=== PATIENT | female | born 1990 | race Caucasian/White ===

== ENCOUNTER 2024-08-26 16:06 | Emergency (ER) | payer MEDICAID, SELFPAY ==
[2024-08-26 16:13] VITALS: BP 111/67; PULSE 89; RESP 14; TEMP 37; O2SAT 100; BMI 26.6
--- NOTE | 2024-08-26 16:26 | EKG12_ITS ---
Test Reason : GENERAL Blood Pressure : */* mmHG Vent. Rate : 84 BPM Atrial Rate : 84 BPM P-R Int : 146 ms QRS Dur : 98 ms QT Int : 372 ms P-R-T Axes : 71 25 49 degrees QTcB Int : 439 ms Normal sinus rhythm Incomplete right bundle branch block Borderline ECG Confirmed by OMA SALDANA MD ([id number]), rewrite editor LANA PABLO ([id number]) on 08/28/2024 6:45:16 AM Referred By: Confirmed By: OMA SALDANA MD
--- NOTE | 2024-08-26 16:27 | EDS_ITS ---
HPI History of Present Illness Chief Complaint: Chest Pain Informant: patient Narrative Narrative: History of asthma, previous lower extremity VTE in her 20s presents chest pressure 8 AM this morning. Pain to both shoulders. Nausea vomiting x 10 with no hematemesis. No diarrhea or loose stools. No bloody stools. She states he has GI issues has a GI follow-up upcoming. Denies tobacco denies family history MIs at young age. No hypertension hyperlipidemia or diabetes. No recent travel or surgeries. No cough symptoms. However reports exertional dyspnea over the last 2 days. No history of stress test or heart cath. Status post full dose aspirin and nitroglycerin by EMS reported nitroglycerin did not help. EMS EKG reviewed sinus rate of [address] or T wave changes. CVD Risk Factors: Negative for Hypertension, Diabetes, Hypercholesterolemia, Family History 1' </=55 or Smoking PE Risk Factors: Positive for Prior DVT or PE; Negative for Recent Travel/Surgery, Recent Immobilization or Cancer [facility] Medical History Cyst of pituitary gland Syncope, vasovagal Iron deficiency Alopecia Tachycardia IBS (irritable bowel syndrome) Home Medications ?Medication ?Instructions ?Recorded ?Last Taken ?Type pantoprazole 40 mg tablet,delayed 40 mg PO DAILY #30 t abs 08/26/24 Unknown Rx release Allergy/AdvReac Type Severity Reaction Status Date / Time ciprofloxacin (From Cipro) Allergy Hives Verified 08/26/24 16:13 diphenhydramine (From Allergy Hives Verified 08/26/24 16:13 Benadryl) hydrocortisone Allergy Swelling Verified 08/26/24 16:13 Sulfa (Sulfonamide Allergy HIVES, Verified 08/26/24 16:13 Antibiotics) SWELLING tree nut (tree nuts) Allergy Hives Verified 08/26/24 16:13 Social History Smoking Status: Never smoker ROS ROS ED Constitutional Constitutional ED: Denies chills, fever(s) or sweats ENT ENT ED: Denies sore throat Cardiovascular Cardiovascular: Reports chest pain; Denies leg edema, palpitations or racing heartbeat Respiratory/Chest Respiratory/Chest: Reports dyspnea on exertion; Denies cough or dyspnea Gastrointestinal Gastrointestinal: Reports nausea and vomiting; Denies abdominal pain or diarrhea Genitourinary Genitourinary ED: Denies dysuria, hematuria or urinary frequency Musculoskeletal Musculoskeletal: Denies back pain, extremity pain or neck pain Integumentary Denies rash or wounds Neurologic Neurologic: Denies headache(s), paresthesias or weakness EXAM Physical Exam Const Vital Signs: 08/26/24 16:13 08/26/24 16:29 08/26/24 18:08 Temperature 98.6 F Temperature Source Oral Pulse Rate 89 82 Respiratory Rate 14 16 Blood Pressure 111/67 105/75 Blood Pressure Mean 81 85 Pulse Ox 100 98 Oxygen Delivery Method Room Air Room Air Room Air 08/26/24 19:07 Temperature 98.3 F Temperature Source Pulse Rate 80 Respiratory Rate 12 Blood Pressure 110/78 Blood Pressure Mean 88 Pulse Ox 99 Oxygen Delivery Method Positive well nourished and well developed General Appearance ED: well developed and NAD HEENT Reports moist mucous membranes normocephalic and atraumatic Eyes General Eye ED: Yes normal appearance of both eyes Neck full ROM Chest Wall Chest: Negative for tenderness Resp normal respiratory effort and normal air movement Effort and Inspection: symmetric chest movement; Negative for respiratory distress Cardio regular rate, regular rhythm and no murmurs Peripheral Pulses: pulses 2+ throughout GI normal to inspection, nondistended, normoactive bowel sounds and non-tender Palpation: Negative for guarding or rebound tenderness present Extremity normal to inspection General Extremety ED: Negative for edema or tenderness General Extremity: Negative for edema Neuro oriented x3 and no sensory deficits noted Sensorium / Orientation: awake and alert Skin no rashes or lesions noted and no wounds MDM MDM MDM Narrative Medical decision making narrative: Interventions / MDM: Differential diagnosis: Atypical chest pain. ACS however EKG cardiac enzymes negative. Diagnosis considered but do not suspect: PE however D-dimer negative. My EKG interpretation: Sinus rate of 84, no ST changes. QTc 439. Imaging independently reviewed and interpreted by myself: 2 view chest x-ray: No acute process. External documents reviewed: N/A Test considered but not ordered:N/A ED course: Chest pressure since 8 AM nausea and vomiting. GI issues. EMS EKG sinus tachycardia. She normal tensive, f her heart rates in the 80s on the monitor. History of DVT. No cardiac risk factors. Will check EKG cardiac labs, will obtain D-dimer for low risk Wells criteria. She is given fluids Zofran and Pepcid for her GI symptoms. Will reevaluate. 1730: Initial troponin negative D-dimer negative hemoglobin 12. Creatinine 0.72. hCG negative. Two-view chest x-ray ordered for further evaluation. 1800: Two-view chest x-ray negative nausea grossly still has her discomfort in her chest. Will order GI cocktail. Reported 3 years ago upper or lower endoscopies she was never put on PPI. Will reevaluate. Delta troponin pending. 190: Patient reported nursing she had to leave as her ride is coming. Her troponin is in the lab and pending. Discussed with the patient she had to go with a ride. Do not suspect that this will be elevated. She states no improvement with GI cocktail. I discussed we will place her on a PPI positive results I will call her back. She understands and agrees with plan. 2310: Review of delta troponin negative. Re-evaluation: stable Disposition discussed with patient/family/significant other: Patient Case discussed with consulting clinician: N/A This note was generated with Tailored dictation software. It may contain incorrect words, spelling, and punctuation that were not noted in checking the note before signing. Lab Data Attestation: I reviewed the patient's lab results. Labs: Laboratory Results - last 24 hr 08/26/24 08/26/24 08/26/24 16:15 16:47 18:45 WBC 6.3 RBC 4.24 Hgb 12.0 Hct 36.2 L MCV 85.4 MCH 28.3 MCHC 33.1 RDW Std Deviation 40.7 RDW Coeff of Anibal 13.2 Plt Count 236 MPV 10.0 Immature Gran % (Auto) 0.200 Neut % (Auto) 60.0 Lymph % (Auto) 30.0 Smyth % (Auto) 7.7 Eos % (Auto) 1.6 Baso % (Auto) 0.5 Absolute Neuts (auto) 3.8 Absolute Lymphs (auto) 1.88 Nucleated RBC % 0 PT 14.3 INR 1.1 APTT 27.7 D-Dimer Quant (PE/DVT) < 0.27 L Sodium 140 Potassium 4.0 Chloride 105 Carbon Dioxide 22.6 Anion Gap 12 BUN 15 Creatinine 0.72 Estim Creat Clear Calc 90.00 Est GFR (MDRD) Non-Af 113 BUN/Creatinine Ratio 20.7 H Glucose 117 H Calcium 8.9 Troponin T High Sens < 6 Troponin T Hi Sens 2 Hr < 6 Serum , Qual NEGATIVE Radiography Diagnostic Testing: Clinical Impression(s) from Imaging Studies Chest X-Ray 08/26/24 17:40 IMPRESSION: No focal consolidations. Reading Location: [facility] Discharge Plan Triage Chief Complaint: Chest Pain ED Provider: Avtar Cardona Dx/Rx/DC Orders Clinical Impression: Chest pain, Dyspnea, Sinus tachycardia Instructions: ED Chest Pain, Uncertain Cause Prescriptions: New pantoprazole 40 mg tablet,delayed release (DR/EC) 40 mg PO DAILY Qty: 30 0RF Primary Care Provider: Care Physician,No Primary Referrals: Care Physician,No Primary [Primary Care Provider] - Activity Restrictions/Additional Instructions: Chest x-ray negative. D-dimer negative. Your cardiac workup negative thus far. Your second troponin in the lab pending however you needed to leave. I will contact you if positive results. Take pantoprazole as prescribed. Follow-up with your doctor and your GI as scheduled. Print Language: Sinhala Disposition Disposition: Against Medical Advice Discharge Date/Time: 08/26/24 19:12
[2024-08-26] MEDS: 0.9% Normal Saline (1000mL) 1,000 ML 999 ML IV (16:35)
[2024-08-26] MEDS: Ondansetron 4 MG/2 ML Vial IV (16:35)
[2024-08-26 16:42] LABS: Absolute Lymphocyte Count 1.88 X10^3/uL (0.83-4.51); Absolute Neutrophil Count 3.8 X10^3/uL (2.0-7.7); Basophil# 0.03 X10^3/uL; Basophil% 0.5 % (0-1); Eosinophils% 1.6 % (0-5); Hematocrit 36.2 % (37-47); Lymphocyte # 1.88 X10^3/ul (0.83-4.51); Mean Corp Hgb Conc 33.1 g/dL (32-36); Mean Corpuscular Hgb 28.3 pg (27.0-32.0); Mean Corpuscular Volume 85.4 fL (81-99); Monocyte# 0.48 X10^3/uL; Monocyte% 7.7 % (0-10); NRBC Flagged by Analyzer 0 % (0-5); Neutrophil # 3.76 X10^3/uL (2.7-7.7); Platelet Count 236 K/mm3 (150-450); RBC Distribution Width CV 13.2 % (11.6-14.6); RBC Distribution Width SD 40.7 fl (35.1-43.9); Red Blood Count 4.24 M/mm3 (4.2-5.4); White Blood Count 6.3 K/mm3 (4.4-11.0)
[2024-08-26] MEDS: Famotidine 200 MG/20 ML MDV 20 MG in 0.9% Normal Saline (Pres. free 8 ML 300 MG IV (16:55)
[2024-08-26 17:07] LABS: D-Dimer Quantitative (DVT/PE) < 0.27 FEU/ug/m (0.27-0.49)
[2024-08-26 17:09] LABS: International Normalized Ratio 1.1; Prothrombin Time (Protime)PT. 14.3 SECONDS (11.7-14.9)
[2024-08-26 17:10] LABS: Partial Thromboplast Time 27.7 Seconds (24.1-36.2)
[2024-08-26 17:11] LABS: Anion Gap 12 (5-15); BUN 15 mg/dL (4-19); BUN/Creat Ratio 20.7 RATIO (10-20); Calcium,Total 8.9 mg/dL (7.6-11.0); Carbon Dioxide 22.6 mmol/L (21.0-32.0); Chloride 105 mmol/L (98-108); Creatinine, Serum 0.72 mg/dL (0.70-1.20); EST Glomerular Filtration Rate 113 (>60); Glucose 117 mg/dL (70-99); Sodium Level 140 mmol/L (133-145); Troponin T High Sensitivity < 6 ng/L (<=14)
--- OUTSIDE RECORDS SUMMARY | 2024-08-26 17:12 | XMS RPT_ITS | CCD ---
Author Organization [facility] CliniSyoh Care Team Providers Care Licensed Pesticide Applicator Name Role Phone [facility], Generic Unavai lable Mercedez Cotto Unavailable Mercedez Cotto. Unavailable Mercedez Cotto Unavailable Mercedez Cotto Unavailable Unavailable Mercedez Cotto Primary Care Provider [phone] Mercedez Cotto. Primary Care Provider [phone] MERCEDEZ COTTO. Primary Care Unavailable EBEN COLBY Attending Unavai lable Robi Cotto CNPin T. Primary Care Provider Mercedez Cotto CNP T. Primary Care Provider ZARRABI, BASIA Referring Unavailable PHYSICIAN, NO PCP Primary Care Unavailable MERCEDEZ COTTO Primary Care Unavailable DIPTI COTA Attending Unavailable Zarrabi DO, Basia Primary Care Provider [phone] Sadiq Pepper Unavailable Zarrabi DO, Basia Primary Care Provider [phone] No, Physician Primary Care Provider Unavailabl e NO, PHYSICIAN Primary Care Unavailable MIKE MUSTAFA Attending Unavailab le MIKE MUSTAFA Admitting Unavailab le NO, PHYSICIAN Primary Care Unavailable MIKE MUSTAFA Attending Unavailab le ROBI COTTOIN T Primary Care Unavailable LAURY CERDA Attending Unavailable SELF, SELF Referring Unavailable MERCEDEZ COTTO Primary Care Unavailable SELF, SELF Referring Unavailable FAISAL YOUNG Attending Unavailable SELF, SELF Referring Unavailable REANNA ESPINOZA I Attending Unavailable OLGAREANNA MENCHACA I Referring Unavailable ZARRABI, BASIA Primary Care Unavailable WASHINGTON, TOSHA S Attending Unavailable WASHINGTON, TOSHA S Referring Unavailable WASHINGTON, TOSHA S Attending Unavailable WASHINGTON, TOSHA S Referring Unavailable ZARRABI, BASIA Primary Care Unavailable SURESH DOVE Attending Unavailable BAHDHARMESH AKINS Attending Unavailable ORTEGA, DAVIS T Primary Care Unavailable SLICK MCCLELLAND Attending Unavailable COTTO, MERCEDEZ T Primary Care Unavailable ALDIABCARLEE Attending Unavailable SELF, SELF Referring Unavailable ZARRABI, BASIA Attending Unavailable ZARRABI, BASIA Primary Care Unavailable ZARRABI, BASIA Attending Unavailable ZARRABI, BASIA Primary Care Unavailable ZARRABI, BASIA Attending Unavailable PHYSICIAN, NO PCP Primary Care Unavailable ZARRABI, BASIA Attending Unavailable ZARRABI, BASIA Primary Care Unavailable ZARRABI, BASIA Attending Unavailable ZARRABI, BASIA Primary Care Unavailable NO, PHYSICIAN Primary Care Unavailable RONALD BURNHAM Attending Unavailab le [facility], GENERIC Consulting YINKA Milligan Admitting Unavailable H AND V, OPG Consulting Unavailable KYLE SHANE Attending Unavailabl e NO, PHYSICIAN Primary Care Unavailable NO, PHYSICIAN Primary Care Unavailable NO, PHYSICIAN Primary Care Unavailable DENNIS WHITTEN Attending Unavailable NO, PHYSICIAN Primary Care Unavailable NO, PHYSICIAN Primary Care Unavailable KATARZYNA PAUL Attending Dharmesh saldaña Unavailable Primary Care Provider Unavailabl e GIOVANNY ORTEGA Attending Unavailable NO, PHYSICIAN Primary Care Unavailable NO, PHYSICIAN Primary Care Unavailable MARNIE BRANCH Attending Unavailabl e RADHA DORAN Attending Unavail able SYSTEM, PROVIDER NOT IN Primary Care Unavaila ble NO, PHYSICIAN Primary Care Unavailable DAMION PACKER Attending Unavailable MIKE MUSTAFA Attending Unavailab MIKE Ibrahim Referring Unavailab le NO, PHYSICIAN Primary Care Unavailable NO, PHYSICIAN Primary Care Unavailable Unavailable Primary Care Provider Unavailabl e Unavailable Primary Care Provider Unavailabl e Required, No Pcp Unavailable Unavailable Leila Richard Unavailable Unavailable Primary Care Provider Unavailabl e Sorin Shetty Unavailable [phone] Kyle Cabrera Unavailable Tim Romero Unavailable Unavailable Sabha, Marwa Unavailable Unavailable Watkins, Pavanuba Unavailable Unavailable Unavailable Primary Care Provider Unavailmarlyn Stuart MD, [facility] Primary Care Provider [phone] Shara Nolen PharmD Unavailable Unavailab brent Stuart MD, [facility] Primary Care Provider Mustapha Padilla Unavailable GatoamandaReynaldo Unavailable Unavailable Esequiel BARRIGA, Kaylie Alexandre Unavailable Unavailable Suzie Muniz Unavailable June, Dr. Renetta Daigle Attending Unavailab le [place], Dr. Leila Nugent Attending Lillian vailable BloxdorfKyle Attending Unavailable Singal, Dr. Palumbo Attending Unavailable Romanello, Dr. Sorin Vance Attending Un available O'Day, Dr. Marianne Bello Attending Unavail able PADILLA, DO MUSTAPHA GARDNER Attending Unavailabl e Singal, Dr. Palumbo Attending Unavailable Singal, Dr. Palumbo Attending Unavailable Watkins, Dr. Renetta Daigle Attending Unavailab le Glagola, Dr. Dylan Heredia Attending Unavaila ble BloxdorfKyle Attending Unavailable Singal, Dr. Palumbo Attending Unavailable Singal, Dr. Palumbo Attending Unavailable Watkins, Dr. Renetta Daigle Attending Unavailab le [place], Dr. Leila Nugent Attending Lillian vailable Watkins, Dr. Renetta Daigle Attending Unavailab le O'Day, Dr. Marianne Bello Attending Unavail able Romanello, Dr. Sorin Vance Attending Un available BloxKyle cardoso Attending Unavailable BloxKyle cardoso Attending Unavailable Romanello, Dr. Sorin Vance Attending Un available GLASENAPP, REYNALDO C Referring Unavailable STUART, MUDITA Primary Care Unavailable Yoel Virgen RN Unavailable Unavailabl e Unavailable Primary Care Provider UnavailMARCIE Antunez Admitting Unavail able MARCIE CONTRERAS Attending Unavail able MARCIE CONTRERAS Consulting Unavail able Generic Provider , No Assigned Pcp Primary Car e Provider Unavailable Bel MUJICA.GARAGE LABORER, Elina Unavailable Amina WALKER, Rinjal Pedro Unavailable Generic Provider MD, No Assigned Pcp Primary Car e Provider Unavailable Nathan BARRIGA, Marium Unavailable Unavailable Genny WALKER, Madi Primary Care Provider Cassandra Baer Unavailable Unavailable Genny W[facility], [facility] Provider PROVIDER, UNKNOWN Admitting Unavailable JOSE, AKBAR Attending Unavailable PROVIDER, UNKNOWN Admitting Unavailable PROVIDER, UNKNOWN Attending Unavailable JOSEAKBAR Attending Unavailable PROVIDER, UNKNOWN Admitting Unavailable PROVIDER, UNKNOWN Admitting Unavailable PROVIDER, UNKNOWN Attending Unavailable PROVIDER, UNKNOWN Admitting Unavailable PROVIDER, UNKNOWN Attending Unavailable MAGDALENE GLASER Attending Unavailable PROVIDER, UNKNOWN Admitting Unavailable MAGDALENE GLASER Attending Unavailable PROVIDER, UNKNOWN Admitting Unavailable PROVIDER, UNKNOWN Admitting Unavailable ISI HANKS Attending Unavailable PROVIDER, UNKNOWN Admitting Unavailable AKBAR GARCIA Attending Unavailable GENERIC PROVIDER, NO ASSIGNED PCP Primary Care Unavailable GENERIC PROVIDER, NO ASSIGNED PCP Primary Care Unavailable GENERIC PROVIDER, NO ASSIGNED PCP Primary Care Unavailable TELMA MOTLEY Attending Unavailable MARILEE BROWN Attending Unavailable GENERIC PROVIDER, NO ASSIGNED PCP Primary Care Unavailable MARILEE BROWN Attending Unavailable GENERIC PROVIDER, NO ASSIGNED PCP Primary Care Unavailable GENERIC PROVIDER, NO ASSIGNED PCP Primary Care Unavailable GENERIC PROVIDER, NO ASSIGNED PCP Primary Care Unavailable LEILA RICHARD Attending Unavailabl e GENERIC PROVIDER, NO ASSIGNED PCP Primary Care Unavailable MUSTAPHA PADILLA Attending Unavailable GENERIC PROVIDER, NO ASSIGNED PCP Primary Care Unavailable TIM ROMERO Attending Unavailable GENERIC PROVIDER, NO ASSIGNED PCP Primary Care Unavailable RENETTA WATKINS Referring Unavailable GENERIC PROVIDER, NO ASSIGNED PCP Primary Care Unavailable MUSTAPHA PADILLA Attending Unavailable GENERIC PROVIDER, NO ASSIGNED PCP Primary Care Unavailable Barry FINANCE LEAD, Lucille Yajaira Primary Care Provider [phone] BARRY, TENNEH YAJAIRA Primary Care Unavailable BARRY, LUCILLE YAJAIRA Attending Unavailable BARRY, LUCILLE LADDI Attending Unavailable BARRY, MIKENEH YAJAIRA Primary Care Unavailable No Family, Physician Primary Care Unavailable No Family, Physician Primary Care Unavailable EMERY THOMAS Referring Unavailab le No Family, Physician Primary Care Unavailable EMERY THOMAS Referring Unavailab le EMERY THOMAS Referring Unavailab le No Family, Physician Primary Care Unavailable No Family, Physician Primary Care Unavailable MATILDA DACOSTA Referring Unavailable No Family, Physician Primary Care Unavailable LYDIA LONG Referring Unavailable No Family, Physician Primary Care Unavailable (S/P/Bld) [Vol rate/Area] mL/min/{1.73_m2} Normal [facility] Comment on above: Performed By: #### 2 4323-8, 76127-6t6, 15278-7 ####[facility], [address], [place]. Microscopic method Nom (U)on 07-26-2020 Bacteria LM.HPF (Urine sed) [#/Area] RARE Abnormal NONE/HPF [facility] Comment on above: Performed By: #### 5 8077-9, 48444-1 ####[facility], [address], [place]. Epithelial cells.squamous LM.HPF (Urine sed) [#/Area] MANY Abnormal FEW/LPF [facility] Comment on above: Performed By: #### 5 8077-9, 27632-7 ####[facility], [address], [place]. Mucus Ql (Urine sed) RARE Abnormal NONE/LPF [facility] Comment on above: Performed By: #### 5 8077-9, 77179-2 ####[facility], [address], [place]. RBC LM.HPF (Urine sed) [#/Area] 4 /[HPF] Normal 0-5 [facility] Comment on above: Performed By: #### 5 8077-9, 24125-0 ####[facility], [address], [place]. WBC LM.HPF (Urine sed) [#/Area] 4 /[HPF] Normal 0-5 [facility] Comment on above: Performed By: #### 5 8077-9, 69832-9 ####[facility], [address], [place]. Urinalysis complete W Reflex Culture panel (U)on 07-26-2020 Appearance (U) HAZY Abnormal CLEAR [facility] Comment on above: Performed By: #### 5 8077-9, 34275-5 ####[facility], [address], [place]. Bilirubin (U) [Mass/Vol] Negative Normal NEGATIVE-NEGAT [facility] Comment on above: Performed By: #### 5 8077-9, 87869-0 ####[facility], [address] Color (U) YELLOW Normal YELLOW [facility] Comment on above: Performed By: #### 5 8077-9, 37235-9 ####[facility], [address]. Glucose Test strip (U) [Mass/Vol] NORMAL Normal NORMAL [facility] Comment on above: Performed By: #### 5 8077-9, 20312-5 ####[facility], [address]. Hemoglobin Ql (U) 10/UL Abnormal NEGATIVE-N EGAT [facility] Comment on above: Performed By: #### 5 8077-9, 33942-2 ####[facility], [address], [place]. Ketones (U) [Mass/Vol] Negative Normal NEGATIVE-NEGAT [facility]ENZ[facility] Comment on above: Performed By: #### 5 8077-9, 26047-6 ####[facility], [address], [place]. Leukocyte esterase Test strip Ql (U) 25/UL Abnormal NEGATIVE-NEGAT [facility] Comment on above: Performed By: #### 5 8077-9, 83309-4 ####[facility], [address], [place]. Nitrite Test strip (U) [Mass/Vol] Negative Normal NEGATIVE-NEGAT [facility]ENZ[facility] Comment on above: Performed By: #### 5 8077-9, 60038-4 ####[facility], [address] [place] [address]. pH (U) 6.0 [pH] Normal 5.0-9.0 [facility] Comment on above: Performed By: #### 5 8077-9, 69645-1 ####[facility], [address] [place] [address]. Protein (U) [Mass/Vol] 30 mg/dL Abnormal NEGATIVE-NEGAT [facility] Comment on above: Performed By: #### 5 8077-9, 74392-1 ####[facility], [address] [place] [address]. Specific gravity (U) [Rel density] 1.025 Normal 1.005-1.035 [facility] Comment on above: Performed By: #### 5 8077-9, 95045-4 ####[facility], [address] [place] [address]. Urobilinogen (U) [Mass/Vol] NORMAL Normal NORMAL [facility] Comment on above: Performed By: #### 5 8077-9, 52822-8 ####[facility], [address] [place] [address]. XR Abdomen 1 Viewon 07-27-19 21 XR Abdomen Single view Normal [facility] Basic metabolic 2000 panelOr dered By: Ant Light on 07-17-2020 Anion gap [Moles/Vol] 15 mmol/L 10 - 20 mmol/L [facility] Calcium [Mass/Vol] 9.8 mg/dL 8.4 - 10. 2 mg/dL [facility] Chloride [Moles/Vol] 106 mmol/L 98 - 10 8 mmol/L [facility] Creatinine [Mass/Vol] 0.56 mg/dL 0.40 - 1.10 [facility] GFR/1.73 sq M.predicted CKD-EPI (S/P/Bld) [Vol rate/Area] 126 >=60 mL/min/1.73 m2 [facility] Glucose [Mass/Vol] 102 mg/dL High 65 - 99 mg/dL [facility] HCO3 [Moles/Vol] 24 mmol/L 21 - 32 mmol/L [facility] Interpretation and review of laboratory results Abnormal [facility] Potassium [Moles/Vol] 3.6 mmol/L 3.5 - 5.1 mmol/L [facility] Sodium [Moles/Vol] 141 mmol/L 135 - 145 mmol/L [facility] Urea nitrogen [Mass/Vol] 11 mg/dL 8 - 25 mg/dL [facility] Urea nitrogen/Creatinine [Mass ratio] 19.6 mg/mg [facility] The eGFR should be u sed for monitoring renal function only and not for medication dosing. [facility] Beta HCG ( test) Ql Ordered By: Ant Light on 07-17-2020 Negative: The result is less than or equal to 5 mIU/mL of HCG. [facility] CBC WITH AUTO DIFFERENTIALOr dered By: Ant Light on 07-17-2020 Basophils (Bld) [#/Vol] 0.03 10*3/uL [facility] Basophils/100 WBC (Bld) 0.5 % [facility] Eosinophils (Bld) [#/Vol] 0.09 10*3/uL [facility] Eosinophils/100 WBC (Bld) 1.6 % [facility] Erythrocyte distribution width (RBC) [Entitic vol] 13.1 % 11.6 - 14.8 % [facility] Hematocrit (Bld) [Volume fraction] 37.4 % 36.0 - 46.0 % [facility] Hemoglobin (Bld) [Mass/Vol] 12.0 g/dL 12.0 - 16.0 g/dL [facility] Immature granulocytes (Bld) [#/Vol] 0.02 10*3/uL [facility] Immature granulocytes/100 WBC (Bld) 0.40 % [facility] Comment on above: The IG parameter is the percentage of metamyelocytes, myelocytes and promyelocytes. An immature granulocyte count (IG) of 1% or more suggests the possibility of infection, an IG count of 3% is very likely related to an infection. Lymphocytes (Bld) [#/Vol] 1.84 10*3/uL [facility] Lymphocytes/100 WBC (Bld) 33.2 % [facility] MCH (RBC) [Entitic mass] 27.5 pg 26.0 - 34.0 pg [facility] MCHC (RBC) [Mass/Vol] 32.1 g/dL 31.0 - 37.0 g/dL [facility] MCV (RBC) [Entitic vol] 85.8 fL 80.0 - 100.0 fL [facility] Monocytes (Bld) [#/Vol] 0.40 10*3/uL [facility] Monocytes/100 WBC (Bld) 7.2 % [facility] Neutrophils (Bld) [#/Vol] 3.16 10*3/uL [facility] Neutrophils/100 WBC (Bld) 57.1 % [facility] Nucleated RBC (Bld) [#/Vol] 0.00 10*3/uL [facility] Nucleated RBC/100 WBC (Bld) [Ratio] 0.0 % [facility] Platelet mean volume (Bld) [Entitic vol] 9.5 fL 9.4 - 12.4 fL [facility] Platelets (Bld) [#/Vol] 246 10*3/uL [facility] RBC (Bld) [#/Vol] 4.36 10*6/uL [facility] ealth WBC (Bld) [#/Vol] 5.54 10*3/uL [facility] HCG (QUALITATIVE)Ordered By: Ant Light on 07-17-2020 Beta HCG ( test) Ql Negative Negative [facility] Hepatic function 2000 panelO rdered By: Ant Light on 07-17-2020 Albumin [Mass/Vol] 4.6 g/dL 3.2 - 5.2 g/dL [facility] ALP [Catalytic activity/Vol] 47 U/L 40 - 140 U/L [facility] ALT [Catalytic activity/Vol] 16 U/L 0 - 40 U/L [facility] AST [Catalytic activity/Vol] 14 U/L 0 - 45 U/L [facility] Bilirubin [Mass/Vol] mg/dL 0.0 - 1 .3 mg/dL [facility] Bilirubin.conjugated [Mass/Vol] mg/dL 0.0 - 0.4 mg/dL [facility] Protein [Mass/Vol] 7.6 g/dL 6.0 - 8.0 g/dL [facility] LipaseOrdered By: Ant alba on 07-17-2020 Lipase [Catalytic activity/Vol] 35 U/L 15 - 65 U/L [facility] No Panel InformationOrdered By: Coni Anguiano on 07-17-2020 Extra Tube Hold for add-ons. [facility] Comment on above: Auto resulted. No Panel InformationOrdered By: Ant Light on 07-17-2020 Interpretation and review of laboratory results Normal [facility] TSH DL <= 0.005 mIU/L QnOrde red By: Ant Light on 07-17-2020 TSH Qn 1.48 m[IU]/L [facility] URINALYSISOrdered By: Ant jaimes on 07-17-2020 Bacteria Auto Ql (U) None Seen None Seen /hpf [facility] Clarity Refractometry automated (U) Clear Clear [facility] Color (U) Yellow Colorless, Yellow [facility] Glucose Auto test strip (U) [Mass/Vol] Negative Negative mg/dL [facility] Ketones (U) [Mass/Vol] Negative Negative mg/dL [facility] Leukocyte esterase Auto test strip Ql (U) Negative Negative [facility] pH (U) 6.5 [pH] [facility] Specific gravity (U) [Rel density] 1.027 High [facility] UrinalysisOrdered By: Ant jaimes on 07-17-2020 Bilirubin Ql (U) Negative Negative [facility] Epithelial cells.squamous Auto (Urine sed) [#/Area] 3 [facility] Hemoglobin Auto test strip Ql (U) Small Abnormal Negative [facility] Interpretation and review of laboratory results Abnormal [facility] Mucus Auto (Urine sed) [#/Area] Rare None Seen, Rare /lpf [facility] Nitrite Auto test strip Ql (U) Negative Negative [facility] Protein (U) [Mass/Vol] Negative Negative mg/dL [facility] RBC Auto (Urine sed) [#/Area] 12 High [facility] Urobilinogen (U) [Mass/Vol] mg/dL <2.0 mg/dL [facility] WBC Auto (Urine sed) [#/Area] 1 [facility] Microscopic examinat ion is performed on all urinalysis samples and only positive findings are reported. The test for blood on the chemical analytic portion of urinalysis may also be positive due to hemoglobinuria and myoglobinuria and if red blood cells are present they are quantified by microscopic examination. [facility] NM Gastric EmptyingOrdered B y: Giuliana Payan on 07-08-2020 Minimally decreased emptying at 240 minutes with the remainder of the study unremarkable. No convincing evidence of gastroparesis. Workstation ID: [id number] [facility] EXAMINATION: NUCLEAR MEDICINE GASTRIC EMPTYING STUDY 07/08/2020 TECHNIQUE: Following ingestion of a standard solid meal labeled with 1.0 mCi Tc 99m sulfur colloid, planar images of the chest and abdomen were obtained at 0, 1, 2 and 4 hours in both anterior and posterior projections. Regions of interest were drawn around the stomach and geometric means were calculated. All medications capable of altering motility were held. COMPARISON: None. HISTORY: ORDERING SYSTEM PROVIDED HISTORY: intractable nausea and vomiting; TECHNOLOGIST PROVIDED HISTORY: Illness/Other Acuity: Unknown Reason for Exam: intractable nausea and vomiting Type of Encounter: Unknown Additional signs and symptoms: n FINDINGS: The gastric emptying was calculated as follows: At 60 min, there is 37.1% emptying of the stomach. (Normal range is 10-70%) At 120 min, there is 62.5% emptying of the stomach. (Normal is >40%) At 240 min, there is 88.3% emptying of the stomach. (Normal is >90%) No significant esophageal retention, hiatal hernia or reflux was observed. [facility], Rad In Fu ji Speechq - 07/08/2020 12:47 PM EDT EXAMINATION: NUCLEAR MEDICINE GASTRIC EMPTYING STUDY 07/08/2020 TECHNIQUE: Following ingestion of a standard solid meal labeled with 1.0 mCi Tc 99m sulfur colloid, planar images of the chest and abdomen were obtained at 0, 1, 2 and 4 hours in both anterior and posterior projections. Regions of interest were drawn around the stomach and geometric means were calculated. All medications capable of altering motility were held. COMPARISON: None. HISTORY: ORDERING SYSTEM PROVIDED HISTORY: intractable nausea and vomiting; TECHNOLOGIST PROVIDED HISTORY: Illness/Other Acuity: Unknown Reason for Exam: intractable nausea and vomiting Type of Encounter: Unknown Additional signs and symptoms: n FINDINGS: The gastric emptying was calculated as follows: At 60 min, there is 37.1% emptying of the stomach. (Normal range is 10-70%) At 120 min, there is 62.5% emptying of the stomach. (Normal is >40%) At 240 min, there is 88.3% emptying of the stomach. (Normal is >90%) No significant esophageal retention, hiatal hernia or reflux was observed. IMPRESSION: Minimally decreased emptying at 240 minutes with the remainder of the study unremarkable. No convincing evidence of gastroparesis. Workstation ID: [id number] [facility] CHLAMYDIA/GONORRHOEAE AMPLIF IED RNAOrdered By: Yvonne Barton on 07-04-2020 C. trachomatis rRNA MARY+probe Ql (Cvx) Negative Negative [facility] Interpretation and review of laboratory results Normal [facility] N. gonorrhoeae rRNA MARY+probe Ql (Cvx) Negative Negative [facility] COVID-19, MolecularOrdered B y: Nathan Amin on 07-04-2020 SARS-CoV-2 (COVID-19) RNA MARY+probe Ql (Resp) Not detected Not Detected [facility] Comment on above: This test was perfor med under the FDA's Emergency Use Authorization (EUA). Testing was performed using the Simplexa SARS-CoV-2 RT-PCR assay ([employer]) on the [employer] platform. This test has not been approved for use in asymptomatic patients and its performance in this patient population has not been evaluated. Negative results do not rule out the presence of SARS-CoV-2/COVID-19. Fact sheets for this EUA can be found at the following links: For Healthcare Providers: https://www.fda.gov/media/060895/download For Patients: https://www.fda.gov/media/001901/download CTA Pulm Art and CT Abd Pelv is with IV contrastOrdered By: Nathan Amin on 07-04-2020 1. No evidence for acute pulmonary thromboembolic disease. No thoracic aortic aneurysm or dissection.. 2. No acute pulmonary parenchymal process. 1.6 cm involuting follicle within the right ovary, likely physiologic. Small amount of pelvic free fluid, likely physiologic 3. Normal appendix. No evidence for small or large bowel obstruction. No acute inflammatory process within the abdomen or pelvis. [facility]/lab Workstation ID: [id number] [facility] EXAMINATION: CTA PUL M ART AND CT ABD PELVIS WITH IV CONTRAST HISTORY: ORDERING SYSTEM PROVIDED HISTORY: hx of syncope, previous lap garret, eval for PE; hx of syncope, previous lap garret, eval for PE, TECHNOLOGIST PROVIDED HISTORY: Illness/Other Reason for exam: hx of syncope, previous lap garret, eval for PE; hx of syncope, previous lap garret, eval for PE Encounter Type: Initial Additional signs and symptoms: hx of syncope, previous lap garret, eval for PE; hx of syncope, previous lap garret, eval for PE ORDERING SYSTEM PROVIDED DIAGNOSIS CODES: R11.2 Intractable nausea and vomiting Z87.19 History of chronic gastritis N76.0 Bacterial vaginosis B96.89 Bacterial vaginosis COMPARISON: Noncontrast CT examination of the abdomen and pelvis 04/11/[address] examination of the chest, abdomen, and pelvis 02/08/2020. TECHNIQUE: CT angiography of the pulmonary arteries following the administration of intravenous contrast. Coronal and sagittal MIP images were performed. Imaging was extended to include the abdomen and pelvis. Coronal and sagittal reformations were performed. Dose reduction techniques were achieved by using automated exposure control and/or adjustment of mA and/or kV according to patient size and/or use of iterative reconstruction technique. CONTRAST: IOPAMIDOL 76 % INTRAVENOUS SOLUTION - 75 mL, FINDINGS: CTA PULMONARY ARTERIES: There is suboptimal opacification of the pulmonary arteries upon initial image acquisition. Repeat image acquisition and contrast injection was performed. No filling defect identified within the main, lobar, or evaluable portions of the segmental pulmonary arteries. Normal caliber of the main pulmonary artery. Thoracic aorta without evidence for aneurysm or dissection. Heart is within normal limits in size. No pericardial effusion. No mediastinal, hilar, or axillary lymphadenopathy. No focal consolidative process, pleural effusion or pneumothorax. Central airways are patent. ABDOMEN: Liver is homogeneous in attenuation without evidence for focal lesion. Prior cholecystectomy. No abnormal biliary dilatation. The portal vein is patent. Spleen, adrenal glands and pancreas are unremarkable. No abdominal lymphadenopathy. Symmetric enhancement and excretion of contrast from the renal collecting systems. No hydronephrosis. No definite intrarenal calculus is identified. 7 mm left midpole renal cortical cysts. PELVIS: Ureters and bladder are unremarkable. 16 mm involuting follicle within the right ovary. Uterus and adnexa are otherwise unremarkable for age. Small amount of pelvic free fluid. No pelvic lymphadenopathy. Normal appendix. No evidence for small or large bowel obstruction. No free air. OSSEOUS STRUCTURES: No suspicious osteolytic or osteoblastic lesion. [facility], Rad In Fu ji Speechq - 07/04/2020 3:53 AM EDT EXAMINATION: CTA PULM ART AND CT ABD PELVIS WITH IV CONTRAST HISTORY: ORDERING SYSTEM PROVIDED HISTORY: hx of syncope, previous lap garret, eval for PE; hx of syncope, previous lap garret, eval for PE, TECHNOLOGIST PROVIDED HISTORY: Illness/Other Reason for exam: hx of syncope, previous lap garret, eval for PE; hx of syncope, previous lap garret, eval for PE Encounter Type: Initial Additional signs and symptoms: hx of syncope, previous lap garret, eval for PE; hx of syncope, previous lap garret, eval for PE ORDERING SYSTEM PROVIDED DIAGNOSIS CODES: R11.2 Intractable nausea and vomiting Z87.19 History of chronic gastritis N76.0 Bacterial vaginosis B96.89 Bacterial vaginosis COMPARISON: Noncontrast CT examination of the abdomen and pelvis 04/11/[address] examination of the chest, abdomen, and pelvis 02/08/2020. TECHNIQUE: CT angiography of the pulmonary arteries following the administration of intravenous contrast. Coronal and sagittal MIP images were performed. Imaging was extended to include the abdomen and pelvis. Coronal and sagittal reformations were performed. Dose reduction techniques were achieved by using automated exposure control and/or adjustment of mA and/or kV according to patient size and/or use of iterative reconstruction technique. CONTRAST: IOPAMIDOL 76 % INTRAVENOUS SOLUTION - 75 mL, FINDINGS: CTA PULMONARY ARTERIES: There is suboptimal opacification of the pulmonary arteries upon initial image acquisition. Repeat image acquisition and contrast injection was performed. No filling defect identified within the main, lobar, or evaluable portions of the segmental pulmonary arteries. Normal caliber of the main pulmonary artery. Thoracic aorta without evidence for aneurysm or dissection. Heart is within normal limits in size. No pericardial effusion. No mediastinal, hilar, or axillary lymphadenopathy. No focal consolidative process, pleural effusion or pneumothorax. Central airways are patent. ABDOMEN: Liver is homogeneous in attenuation without evidence for focal lesion. Prior cholecystectomy. No abnormal biliary dilatation. The portal vein is patent. Spleen, adrenal glands and pancreas are unremarkable. No abdominal lymphadenopathy. Symmetric enhancement and excretion of contrast from the renal collecting systems. No hydronephrosis. No definite intrarenal calculus is identified. 7 mm left midpole renal cortical cysts. PELVIS: Ureters and bladder are unremarkable. 16 mm involuting follicle within the right ovary. Uterus and adnexa are otherwise unremarkable for age. Small amount of pelvic free fluid. No pelvic lymphadenopathy. Normal appendix. No evidence for small or large bowel obstruction. No free air. OSSEOUS STRUCTURES: No suspicious osteolytic or osteoblastic lesion. IMPRESSION: 1. No evidence for acute pulmonary thromboembolic disease. No thoracic aortic aneurysm or dissection.. 2. No acute pulmonary parenchymal process. 1.6 cm involuting follicle within the right ovary, likely physiologic. Small amount of pelvic free fluid, likely physiologic 3. Normal appendix. No evidence for small or large bowel obstruction. No acute inflammatory process within the abdomen or pelvis. [facility] Workstation ID: [id number] [facility] DRUGS OF ABUSE SCREEN, URINE Ordered By: Giuliana Payan on 07-04-2020 Amphetamines Ql (U) Not detected None Detected [facility] Comment on above: Urine Amphetamine Cu toff: < 1000 ng/mL = None Detected Barbiturates Screen Ql (U) Not detected None Detected [facility] Comment on above: Urine Barbiturates C utoff: < 200 ng/mL = None Detected Benzodiazepines Ql (U) Not detected None Detected [facility] Comment on above: Urine Benzodiazepine Cutoff: < 200 ng/mL = None Detected Buprenorphine Ql (U) Not detected None Detected [facility] Comment on above: Urine Buprenorphine Cutoff: < 5 ng/mL = None Detected Cannabinoids Screen Ql (U) Not detected None Detected [facility] Comment on above: Urine Cannabinoids C utoff: < 50 ng/mL = None Detected Cocaine Ql (U) Not detected None Detected [facility] Comment on above: Urine Cocaine Cutoff : < 300 ng/mL = None Detected fentaNYL+Norfentanyl Screen Ql (U) Not detected None Detected [facility] Comment on above: Urine Fentanyl Cutof f: < 1 ng/mL = None Detected Interpretation and review of laboratory results Normal [facility] Methadone Screen Ql (U) Not detected None Detected [facility] Comment on above: Urine Methadone Cuto ff: < 300 ng/mL = None Detected Opiates Screen Ql (U) Not detected None Detected [facility] Comment on above: Urine Opiates Cutoff : < 300 ng/mL = None Detected oxyCODONE Ql (U) Not detected None Detected [facility] Comment on above: Urine Oxycodone Cuto ff: < 100 ng/mL = None Detected Screen results shoul d be used for treatment purposes only. [facility] ECG 12-LEADOrdered By: Jourdan Amin on 07-04-2020 Atrial Rate 125 BPM [facility] P [place] 74 degrees [facility] P-R Interval 128 ms [facility] Q-T Interval 288 ms [facility] QRS Duration 76 ms [facility] QTC Calculation (Bezet) 415 ms [facility] R [place] 62 degrees [facility] [place] 51 degrees [facility] Ventricular Rate 125 BPM [facility] th Sinus tachycardia Ri ght atrial enlargement Anterior infarct , age undetermined Abnormal ECG Confirmed by DELBERT KRISHNAN MD ([id number]) on 07/04/2020 8:55:47 AM [facility] No Panel InformationOrdered By: Yvonne Barton on 07-04-2020 FINDINGS/ Unremarkab le radiographic appearance of the thoracic and lumbar spine. No acute findings and no significant degenerative changes. Workstation ID: [id number] [facility] EXAMINATION: XR LUMB AR SPINE 2-3 VIEWS (STANDARD); XR THORACIC SPINE 3 VIEWS (STANDARD) HISTORY: Injury, back pain COMPARISON: CT abdomen pelvis 04/11/2020, 02/08/2020 CT chest [facility] Interface, Rad In Fu ji Speechq - 07/04/2020 12:04 AM EDT EXAMINATION: XR LUMBAR SPINE 2-3 VIEWS (STANDARD); XR THORACIC SPINE 3 VIEWS (STANDARD) HISTORY: Injury, back pain COMPARISON: CT abdomen pelvis 04/11/2020, 02/08/2020 CT chest IMPRESSION: FINDINGS/ Unremarkable radiographic appearance of the thoracic and lumbar spine. No acute findings and no significant degenerative changes. Workstation ID: [id number] [facility] SARS-CoV-2 (COVID-19) RNA NA A+probe Ql (Resp)Ordered By: Nathan Amin on 07-04-2020 Interpretation and review of laboratory results Normal [facility] Trichomonas vaginalis Amplif ied RNAOrdered By: Yvonne Barton on 07-04-2020 Interpretation and review of laboratory results Normal [facility] T. vaginalis rRNA MARY+probe Ql (Cvx) Negative Negative [facility] URINALYSISOrdered By: Luke Herring on 07-04-2020 Bacteria Auto Ql (U) None Seen None Seen /hpf [facility] Clarity Refractometry automated (U) Clear Clear [facility] Color (U) Yellow Colorless, Yellow [facility] Glucose Auto test strip (U) [Mass/Vol] Negative Negative mg/dL [facility] Ketones (U) [Mass/Vol] Negative Negative mg/dL [facility] Leukocyte esterase Auto test strip Ql (U) Negative Negative [facility] pH (U) 6.0 [pH] [facility] Specific gravity (U) [Rel density] 1.031 High [facility] UrinalysisOrdered By: Luke Herring on 07-04-2020 Bilirubin Ql (U) Negative Negative [facility] th Crystals.amorphous Computer assisted (U) [#/Area] Rare None Seen, Rare /hpf [facility] Epithelial cells.squamous Auto (Urine sed) [#/Area] 1 [facility] Hemoglobin Auto test strip Ql (U) Small Abnormal Negative [facility] Interpretation and review of laboratory results Abnormal [facility] Nitrite Auto test strip Ql (U) Negative Negative [facility] Protein (U) [Mass/Vol] 30 mg/dL Abnormal Negative mg/dL [facility] Comment on above: False positive resul ts may occur in urines with large amounts of hemoglobin, pH greater than 8.0, contrast medium, or disinfectants including ammonium compounds. RBC Auto (Urine sed) [#/Area] 2 [facility] Urobilinogen (U) [Mass/Vol] mg/dL <2.0 mg/dL [facility] WBC Auto (Urine sed) [#/Area] 1 [facility] Microscopic examinat ion is performed on all urinalysis samples and only positive findings are reported. The test for blood on the chemical analytic portion of urinalysis may also be positive due to hemoglobinuria and myoglobinuria and if red blood cells are present they are quantified by microscopic examination. [facility] WET PREPARATIONOrdered By: David Barton on 07-04-2020 Clue cells Wet prep Ql (Unsp spec) Possible Clue Cells Seen Abnormal No Clue Cells Seen [facility] Interpretation and review of laboratory results Abnormal [facility] T. vaginalis Wet prep Ql (Genital specimen) No Trichomonas Seen No Trichomonas Seen [facility] WBC Wet prep Ql (Unsp spec) Few WBC's Seen Abnormal No WBC's Seen [facility] Yeast Wet prep Ql (Genital specimen) No Yeast Seen No Yeast Seen [facility] Yeast.hyphae Wet prep Ql (Unsp spec) No Yeast with Hyphae Seen No Yeast with Hyphae Seen [facility] Basic metabolic 2000 panelOr dered By: Reanna Herring on 07-03-2020 Anion gap [Moles/Vol] 15 mmol/L 10 - 20 mmol/L [facility] Calcium [Mass/Vol] 9.8 mg/dL 8.4 - 10. 2 mg/dL [facility] Chloride [Moles/Vol] 106 mmol/L 98 - 10 8 mmol/L [facility] Creatinine [Mass/Vol] 0.55 mg/dL 0.40 - 1.10 [facility] GFR/1.73 sq M.predicted CKD-EPI (S/P/Bld) [Vol rate/Area] 127 >=60 mL/min/1.73 m2 [facility] Glucose [Mass/Vol] 94 mg/dL 65 - 99 mg/dL [facility] HCO3 [Moles/Vol] 24 mmol/L 21 - 32 mmol/L [facility] Interpretation and review of laboratory results Abnormal [facility] Potassium [Moles/Vol] 3.9 mmol/L 3.5 - 5.1 mmol/L [facility] Sodium [Moles/Vol] 141 mmol/L 135 - 145 mmol/L [facility] Urea nitrogen [Mass/Vol] 16 mg/dL 8 - 25 mg/dL [facility] Urea nitrogen/Creatinine [Mass ratio] 29.1 mg/mg High [facility] The eGFR should be u sed for monitoring renal function only and not for medication dosing. [facility] Beta HCG ( test) Ql Ordered By: Reanna Herring on 07-03-2020 Negative: The result is less than or equal to 5 mIU/mL of HCG. [facility] CBC WITH AUTO DIFFERENTIALOr dered By: Reanna Herring on 07-03-2020 Basophils (Bld) [#/Vol] 0.03 10*3/uL [facility] Basophils/100 WBC (Bld) 0.4 % [facility] Eosinophils (Bld) [#/Vol] 0.08 10*3/uL [facility] Eosinophils/100 WBC (Bld) 1.1 % [facility] Erythrocyte distribution width (RBC) [Entitic vol] 13.2 % 11.6 - 14.8 % [facility] Hematocrit (Bld) [Volume fraction] 39.3 % 36.0 - 46.0 % [facility] Hemoglobin (Bld) [Mass/Vol] 13.0 g/dL 12.0 - 16.0 g/dL [facility] Immature granulocytes (Bld) [#/Vol] 0.02 10*3/uL [facility] Immature granulocytes/100 WBC (Bld) 0.30 % [facility] Comment on above: The IG parameter is the percentage of metamyelocytes, myelocytes and promyelocytes. An immature granulocyte count (IG) of 1% or more suggests the possibility of infection, an IG count of 3% is very likely related to an infection. Lymphocytes (Bld) [#/Vol] 1.79 10*3/uL [facility] Lymphocytes/100 WBC (Bld) 23.7 % [facility] MCH (RBC) [Entitic mass] 28.1 pg 26.0 - 34.0 pg [facility] MCHC (RBC) [Mass/Vol] 33.1 g/dL 31.0 - 37.0 g/dL [facility] MCV (RBC) [Entitic vol] 85.1 fL 80.0 - 100.0 fL [facility] Monocytes (Bld) [#/Vol] 0.61 10*3/uL [facility] Monocytes/100 WBC (Bld) 8.1 % [facility] Neutrophils (Bld) [#/Vol] 5.01 10*3/uL [facility] Neutrophils/100 WBC (Bld) 66.4 % [facility] Nucleated RBC (Bld) [#/Vol] 0.00 10*3/uL [facility] Nucleated RBC/100 WBC (Bld) [Ratio] 0.0 % [facility] Platelet mean volume (Bld) [Entitic vol] 9.5 fL 9.4 - 12.4 fL [facility] Platelets (Bld) [#/Vol] 248 10*3/uL [facility] RBC (Bld) [#/Vol] 4.62 10*6/uL [facility] ealt WBC (Bld) [#/Vol] 7.54 10*3/uL [facility] ealth CT CERVICAL SPINE WITHOUT CO NTRASTOrdered By: Reanna Herring on 07-03-2020 No evidence of cervi justin spine fracture or traumatic malalignment. Workstation ID: [id number] [facility] EXAMINATION: CT CERVICAL SPINE. HISTORY: 29 y/o , F FALL INJRY PAIN . ORDERING SYSTEM PROVIDED HISTORY: FALL INJRY PAIN, TECHNOLOGIST PROVIDED HISTORY: Injury/Trauma Reason for exam: FALL INJRY SYNCOPE, LOC Encounter Type: Initial Mechanism of injury: FALL INJRY SYNCOPE, LOC ORDERING SYSTEM PROVIDED DIAGNOSIS CODES: COMPARISON: 09/30/2019 TECHNIQUE: Axial CT images were acquired from the skull base to the upper thoracic spine. Sagittal and coronal reformations were then acquired. Dose reduction techniques were achieved by using automated exposure control and/or adjustment of mA and/or kV according to patient size and/or use of iterative reconstruction technique. Volumetric 3D reconstructions performed on a separate workstation. FINDINGS: There is no evidence of cervical spine fracture or malalignment. There is peqy-ao-oetczdlg degenerative disease throughout the cervical spine, most notably at the C5-C6 level. No CT evidence of severe spinal canal stenosis. The prevertebral soft tissues are normal. No destructive lesions are seen. The cervical vertebral bodies are well aligned. [facility] Interface, Rad In Fu ji Speechq - 07/03/2020 7:27 PM EDT EXAMINATION: CT CERVICAL SPINE. HISTORY: 29 y/o , F FALL INJRY PAIN . ORDERING SYSTEM PROVIDED HISTORY: FALL INJRY PAIN, TECHNOLOGIST PROVIDED HISTORY: Injury/Trauma Reason for exam: FALL INJRY SYNCOPE, LOC Encounter Type: Initial Mechanism of injury: FALL INJRY SYNCOPE, LOC ORDERING SYSTEM PROVIDED DIAGNOSIS CODES: COMPARISON: 09/30/2019 TECHNIQUE: Axial CT images were acquired from the skull base to the upper thoracic spine. Sagittal and coronal reformations were then acquired. Dose reduction techniques were achieved by using automated exposure control and/or adjustment of mA and/or kV according to patient size and/or use of iterative reconstruction technique. Volumetric 3D reconstructions performed on a separate workstation. FINDINGS: There is no evidence of cervical spine fracture or malalignment. There is klhx-rb-alifvdgn degenerative disease throughout the cervical spine, most notably at the C5-C6 level. No CT evidence of severe spinal canal stenosis. The prevertebral soft tissues are normal. No destructive lesions are seen. The cervical vertebral bodies are well aligned. IMPRESSION: No evidence of cervical spine fracture or traumatic malalignment. Workstation ID: [id number] [facility] CT HEAD OR BRAIN WITHOUT CON TRASTOrdered By: Reanna Herring on 07-03-2020 No acute intracrania l abnormality. Workstation ID: [id number] [facility] EXAMINATION: CT HEAD OR BRAIN WITHOUT CONTRAST HISTORY: ORDERING SYSTEM PROVIDED HISTORY: FALL INJRY SYNCOPE, LOC, TECHNOLOGIST PROVIDED HISTORY: Injury/Trauma Reason for exam: FALL INJRY SYNCOPE, LOC Encounter Type: Initial Mechanism of injury: FALL INJRY SYNCOPE, LOC ORDERING SYSTEM PROVIDED DIAGNOSIS CODES: COMPARISON: 09/30/2019 TECHNIQUE: CT examination of the head without IV contrast. Dose reduction techniques were achieved by using automated exposure control and/or adjustment of mA and/or kV according to patient size and/or use of iterative reconstruction technique. FINDINGS: Ventricles and sulci are normal in size and configuration. No extra-axial collection. No intracranial hemorrhage. No mass effect or edema. No CT evidence of large territorial infarction. Visualized paranasal sinuses are well aerated. Mastoids are clear. Calvarium is unremarkable. [facility] Interface, Rad In Fu ji Speechq - 07/03/2020 7:29 PM EDT EXAMINATION: CT HEAD OR BRAIN WITHOUT CONTRAST HISTORY: ORDERING SYSTEM PROVIDED HISTORY: FALL INJRY SYNCOPE, LOC, TECHNOLOGIST PROVIDED HISTORY: Injury/Trauma Reason for exam: FALL INJRY SYNCOPE, LOC Encounter Type: Initial Mechanism of injury: FALL INJRY SYNCOPE, LOC ORDERING SYSTEM PROVIDED DIAGNOSIS CODES: COMPARISON: 09/30/2019 TECHNIQUE: CT examination of the head without IV contrast. Dose reduction techniques were achieved by using automated exposure control and/or adjustment of mA and/or kV according to patient size and/or use of iterative reconstruction technique. FINDINGS: Ventricles and sulci are normal in size and configuration. No extra-axial collection. No intracranial hemorrhage. No mass effect or edema. No CT evidence of large territorial infarction. Visualized paranasal sinuses are well aerated. Mastoids are clear. Calvarium is unremarkable. IMPRESSION: No acute intracranial abnormality. Workstation ID: [id number] [facility] HCG (QUALITATIVE)Ordered By: Reanna Herring on 07-03-2020 Beta HCG ( test) Ql Negative Negative [facility] Hepatic function 2000 panelO rdered By: Reanna Herring on 07-03-2020 Albumin [Mass/Vol] 4.6 g/dL 3.2 - 5.2 g/dL [facility] ALP [Catalytic activity/Vol] 42 U/L 40 - 140 U/L [facility] ALT [Catalytic activity/Vol] 17 U/L 0 - 40 U/L [facility] AST [Catalytic activity/Vol] 16 U/L 0 - 45 U/L [facility] Bilirubin [Mass/Vol] mg/dL 0.0 - 1 .3 mg/dL [facility] Bilirubin.conjugated [Mass/Vol] mg/dL 0.0 - 0.4 mg/dL [facility] Protein [Mass/Vol] 7.8 g/dL 6.0 - 8.0 g/dL [facility] LipaseOrdered By: Yvonne Thornton on 07-03-2020 Lipase [Catalytic activity/Vol] 37 U/L 15 - 65 U/L [facility] Lipase [Catalytic activity/V ol]Ordered By: Yvonne Barton on 07-03-2020 Interpretation and review of laboratory results Normal [facility] No Panel InformationOrdered By: Triage Emergency on 07-03-2020 Extra Tube Hold for add-ons. [facility] Comment on above: Auto resulted. No Panel InformationOrdered By: Reanna Herring on 07-03-2020 Interpretation and review of laboratory results Normal [facility] Basic metabolic 2000 panelon 06-28-2020 Anion gap [Moles/Vol] 7.0 mmol/L Normal 6.0-18.0 [facility] Comment on above: Performed By: #### 4 [id number], [id number], [id number], 43679-8 ####[facility], [address], [place]. Calcium [Mass/Vol] 9.7 mg/dL Normal 8.9-10.3 [facility] Comment on above: Performed By: #### 4 [id number], [id number], [id number], [id number] ####[facility], [address] [place], [place]. Chloride [Moles/Vol] 108 mmol/L High 98-107 [facility] Comment on above: Performed By: #### 4 [id number], [id number], [id number], [id number] ####[facility], [address] [place], [place]. CO2 [Moles/Vol] 25 mmol/L Normal 22-32 [facility] [facility] Comment on above: Performed By: #### 4 8642-3x1, 26675-1, 27327-0, 58880-7 ####[facility], [address] [place], [place]. Creatinine [Mass/Vol] 0.61 mg/dL Low 0.66-1.30 [facility] Comment on above: Performed By: #### 4 8642-3x1, 73589-6, 74706-7, 25202-9 ####[facility], [address] [place], [place]. Glucose [Mass/Vol] 103 mg/dL High 70-99 [facility] Comment on above: Result Comment: U pdated ADA Reference RangeA normal fasting glucose concentration is less than 100 mg/dL.An impaired fasting glucose concentration is 100-125 mg/dL. Aprovisional diagnosis of diabetes mellitus can be made when afasting glucose concentration is greater than 125 mg/dL. Performed By: #### 4 8642-3x1, 46909-9, 13759-4, 08341-2 ####[facility], [address], [place]. Potassium [Moles/Vol] 4.0 mmol/L Normal 3.6-5.1 [facility] Comment on above: Performed By: #### 4 8642-3x1, 41332-0, 91364-2, 77859-3 ####[facility], [address], [place]. Sodium [Moles/Vol] 140 mmol/L Normal 136-145 [facility] Comment on above: Performed By: #### 4 8642-3x1, 90356-1, 45015-6, 71637-1 ####[facility], [address], [place]. Urea nitrogen (BldV) [Mass/Vol] 17 mg/dL Normal 8-20 [facility] Comment on above: Performed By: #### 4 8642-3x1, 20747-3, 19436-0, 70566-8 ####[facility], [address], [place]. CBC W Auto Differential pane l (Bld)on 06-28-2020 Basophils (Bld) [#/Vol] 0.00 thou/mcL Normal 0.00-0.20 [facility] Comment on above: Performed By: #### 5 7021-8 ####[facility], [address], [place]. Basophils/100 WBC (Bld) 0.6 % Normal 0.0-2.0 [facility] Comment on above: Performed By: #### 5 7021-8 ####[facility], [address] [place], [place]. Eosinophils (Bld) [#/Vol] 0.10 thou/mcL Normal 0.00-0.70 [facility] Comment on above: Performed By: #### 70-8 ####[facility], [address], [place]. Eosinophils/100 WBC (Bld) 1.0 % Normal 0.0-7.0 [facility] Comment on above: Performed By: #### 70-8 ####[facility], [facility] [address], [place]. Erythrocyte distribution width (RBC) [Entitic vol] 13.0 % Normal 11.0-14.8 [facility] Comment on above: Performed By: #### 70-8 ####[facility], [facility] [address] [place], [place]. Hematocrit (Bld) [Volume fraction] 37.9 % Normal 35.0-45.0 [facility] Comment on above: Performed By: #### 7021-8 ####[facility], [facility] [address], [place]. Hemoglobin (Bld) [Mass/Vol] 12.7 g/dL Normal 12.0-16.0 [facility] Comment on above: Performed By: #### 7021-8 ####[facility], [address], [place]. Lymphocytes (Bld) [#/Vol] 1.60 thou/mcL Normal 1.00-4.80 [facility] Comment on above: Performed By: #### 7021-8 ####[facility], [address], [place]. Lymphocytes/100 WBC (Bld) 23.2 % Normal 22.0-44.0 [facility] Comment on above: Performed By: #### 5 7021-8 ####[facility], [address] [place], [place]. MCH (RBC) [Entitic mass] 28.4 Picograms Normal 27.0-34.0 [facility] Comment on above: Performed By: #### 70-8 ####[facility], [address] [place], [place]. MCHC (RBC) [Mass/Vol] 33.6 g/dL Normal 32.0-36.0 [facility] Comment on above: Performed By: #### 70-8 ####[facility], [address] [place], [place]. MCV (RBC) [Entitic vol] 84.6 fL Normal 80.0-97.0 [facility] Comment on above: Performed By: #### 70-8 ####[facility], [address] [place], [place]. Monocytes (Bld) [#/Vol] 0.40 thou/mcL Normal 0.00-0.90 [facility] Comment on above: Performed By: #### 7021-8 ####[facility], [address] [place], [place]. Monocytes/100 WBC (Bld) 5.7 % Normal 0.0-12.0 [facility] Comment on above: Performed By: #### 7021-8 ####[facility], [address] [place], [place]. Neutrophils (Bld) [#/Vol] 4.90 thou/mcL Normal 1.80-7.70 [facility] Comment on above: Performed By: #### 7021-8 ####[facility], [address] [place], [place]. Neutrophils/100 WBC (Bld) 69.5 % Normal 40.0-70.0 [facility] Comment on above: Performed By: #### 5 7021-8 ####[facility], [address] [facility] [place]. Platelet mean volume (Bld) [Entitic vol] 7.4 fL Normal 6.2-12.1 [facility] Comment on above: Performed By: #### 5 7021-8 ####[facility], [address], [place]. Platelets (Bld) [#/Vol] 233 thou/mcL Normal 142-424 [facility] Comment on above: Performed By: #### 5 7021-8 ####[facility], [address], [place]. RBC (Bld) [#/Vol] 4.48 million/mcL Normal 3.80-5.10 M [facility] Comment on above: Performed By: #### 5 7021-8 ####[facility], [address], [place]. WBC (Bld) [#/Vol] 7.1 thou/mcL Normal 4.6-10.2 [facility] Comment on above: Performed By: #### 5 7021-8 ####[facility], [address], [place] CT Abd and Pelvis w/o Contra ston 06-28-2020 CT Abd and Pelvis w/o Contrast Normal [facility] Culture Urine + Susceptibili tyon 06-28-2020 Bacteria identified Cx Nom (U) Normal [facility] Comment on above: Performed By: #### 6 30-4 ####[facility] [address], [place] ED Pat Eduon 06-28-[address] [facility] GFR/1.73 sq M.predicted (S/P /Bld) [Vol rate/Area]on 06-28-2020 GFR/1.73 sq M.predicted among blacks MDRD (S/P/Bld) [Vol rate/Area] mL/min/{1.73_m2} Normal [facility] Comment on above: Result Comment: The MDRD equation has not been validated for those over 70 years, women, patients with serious co-morbid conditions, or with extremes of bodysize, muscle mass of nutritional status. Performed By: #### 4 8642-3x1, 16680-4, 28485-8, 50097-8 ####[facility], [address], [place]. GFRbbon 06-28-2020 GFR/1.73 sq M.predicted among non-blacks MDRD (S/P/Bld) [Vol rate/Area] mL/min/{1.73_m2} Normal [facility] Comment on above: Performed By: #### 4 8642-3x1, 40263-1, 27917-0, 87238-0 ####[facility], [address] [place], [place]. Hepatic function 2000 panelo n 06-28-2020 Albumin [Mass/Vol] 4.5 g/dL Normal 3.5-4.8 [facility] Comment on above: Performed By: #### 4 8642-3x1, 64357-5, 47093-6, 02150-4 ####[facility], [address] [place], [place]. ALP [Catalytic activity/Vol] 31 Units/L Low 32-91 [facility] Comment on above: Performed By: #### 4 8642-3x1, 33869-6, 34831-2, 90300-8 ####[facility], [address], [place]. ALT [Catalytic activity/Vol] 16 Units/L Normal 14-63 [facility] Comment on above: Result Comment: Garcia bland note: Change in reference range for ALT occurred on 01/17/20 at [facility], [facility], and [facility]. Performed By: #### 4 8642-3x1, 57437-3, 07097-0, 05202-6 ####[facility], [address] [address] [place], [place]. AST [Catalytic activity/Vol] 14 Units/L Low 15-41 [facility] Comment on above: Performed By: #### 4 8642-3x1, 48297-4, 58209-5, 24887-1 ####[facility], [address] [place]. Bilirubin [Mass/Vol] 0.2 mg/dL Low 0.3-1.2 [facility] Comment on above: Performed By: #### 4 8642-3x1, 81035-7, 06354-3, 67189-2 ####[facility], [address], [place]. Bilirubin.direct [Mass/Vol] 0.1 mg/dL Normal 0.1-0.5 [facility] Comment on above: Performed By: #### 4 8642-3x1, 30521-9, 57743-0, 23970-1 ####[facility], [address], [place]. Bilirubin.indirect [Mass/Vol] 0.1 mg/dL Normal 0.0-1.0 [facility] Comment on above: Performed By: #### 4 8642-3x1, 29659-4, 78372-8, 96092-4 ####[facility], [address] [place]. Protein [Mass/Vol] 7.6 g/dL Normal 6.1-7.9 [facility] Comment on above: Performed By: #### 4 8642-3x1, 15746-4, 42611-4, 00958-2 ####[facility], [address] [facility] [place]. Microscopic method Nom (U)on 06-28-2020 Bacteria LM.HPF (Urine sed) [#/Area] RARE Abnormal NONE/HPF [facility] Comment on above: Performed By: #### 7 3015-9, 04262-7 ####[facility], [address] [facility] [place]. Epithelial cells.squamous LM.HPF (Urine sed) [#/Area] MANY Abnormal FEW/LPF [facility] Comment on above: Performed By: #### 7 2374-9, 94619-3 ####[facility], [address] Mucus Ql (Urine sed) RARE Abnormal NONE/LPF Moun [facility] Comment on above: Performed By: #### 7 2374-9, 98441-8 ####[facility], [address] [facility] [place] RBC LM.HPF (Urine sed) [#/Area] 2 /[HPF] Normal 0-5 [facility] Comment on above: Performed By: #### 7 2374-, 20007-2 ####[facility], [address] [place], [place] [address], [place]. WBC LM.HPF (Urine sed) [#/Area] 4 /[HPF] Normal 0-5 [facility] Comment on above: Performed By: #### 7 2375-, 29763-5 ####[facility], [address] [place], [place] [address], [place]. Urinalysis complete W Reflex Culture panel (U)on 06-28-2020 Appearance (U) HAZY Abnormal CLEAR [facility] Comment on above: Performed By: #### 7 2375-, 62741-4 ####[facility], [address] [facility] [place] Bilirubin (U) [Mass/Vol] Negative Normal NEGATIVE-NEGAT MCKENZIE [facility] Comment on above: Performed By: #### 7 2375-, 84777-9 ####[facility], [address] [place] Color (U) YELLOW Normal YELLOW [facility] Comment on above: Performed By: #### 7 2375-9, 31371-8 ####[facility], [address] [place]. Glucose Test strip (U) [Mass/Vol] NORMAL Normal NORMAL [facility] Comment on above: Performed By: #### 7 2375-9, 81242-7 ####[facility], [address] [place]. Hemoglobin Ql (U) Negative Normal NEGATIVE-N EGAT MCKENZIE [facility] Comment on above: Performed By: #### 7 2375-, 27762-4 ####[facility], [address] [place] [address]. Ketones (U) [Mass/Vol] Negative Normal NEGATIVE-NEGAT MCKENZIE [facility] Comment on above: Performed By: #### 7 2375-, 45382-8 ####[facility], [address] [place], [place] [address], [place]. Leukocyte esterase Test strip Ql (U) 25/UL Abnormal NEGATIVE-NEGAT MCKENZIE [facility] Comment on above: Performed By: #### 7 2375-, 80361-2 ####[facility], [address] [place]. Nitrite Test strip (U) [Mass/Vol] Negative Normal NEGATIVE-NEGAT MCKENZIE [facility] Comment on above: Performed By: #### 7 2375-9, 36638-2 ####[facility], [address] [facility] [place] pH (U) 7.0 [pH] Normal 5.0-9.0 [facility] Comment on above: Performed By: #### 7 2375-, 52551-1 ####[facility], [address] [facility] [place] Protein (U) [Mass/Vol] Negative Normal NEGATIVE-NEGAT MCKENZIE [facility] Comment on above: Performed By: #### 7 2375-9, 38261-3 ####[facility], [address] [address] [facility] [place], [place]. Specific gravity (U) [Rel density] 1.021 Normal 1.005-1.035 [facility] Comment on above: Performed By: #### 7 2375-9, 82010-2 ####[facility], [address]. Urobilinogen (U) [Mass/Vol] NORMAL Normal NORMAL [facility] Comment on above: Performed By: #### 7 2375-9, 23091-2 ####[facility], [address]. Basic metabolic 2000 panelon 06-06-2020 Anion gap [Moles/Vol] 8.0 mmol/L Normal 6.0-18.0 [facility] Comment on above: Performed By: #### 4 8642-3x1, 16450-7, 99255-2, 38392-4 ####[facility], [address]. Calcium [Mass/Vol] 9.7 mg/dL Normal 8.9-10.3 [facility] Comment on above: Performed By: #### 4 8642-3x1, 11020-2, 44843-6, 08060-1 ####[facility], [address] [place], [place]. Chloride [Moles/Vol] 103 mmol/L Normal 98-107 Moun [facility] Comment on above: Performed By: #### 4 8642-3x1, 42473-6, 12749-4, 98960-8 ####[facility], [address], [place]. CO2 [Moles/Vol] 25 mmol/L Normal 22-32 [facility] Comment on above: Performed By: #### 4 8642-3x1, 67959-3, 75934-2, 27647-1 ####[facility], [address], [place]. Creatinine [Mass/Vol] 0.75 mg/dL Normal 0.66-1.30 [facility] Comment on above: Performed By: #### 4 8642-3x1, 14411-0, 52053-9, 85407-9 ####[facility], [address], [place]. Glucose [Mass/Vol] 120 mg/dL High 70-99 [facility] Comment on above: Result Comment: U pdated ADA Reference RangeA normal fasting glucose concentration is less than 100 mg/dL.An impaired fasting glucose concentration is 100-125 mg/dL. Aprovisional diagnosis of diabetes mellitus can be made when afasting glucose concentration is greater than 125 mg/dL. Performed By: #### 4 8642-3x1, 99319-8, 09044-8, 56133-5 ####[facility], [address], [place]. Potassium [Moles/Vol] 3.8 mmol/L Normal 3.6-5.1 [facility] Comment on above: Performed By: #### 4 8642-3x1, 82127-1, 81346-7, 08385-4 ####[facility], [address] [place] [address]. Sodium [Moles/Vol] 136 mmol/L Normal 136-145 [facility] Comment on above: Performed By: #### 4 8642-3x1, 50053-4, 50795-6, 39961-9 ####[facility], [address], [place]. Urea nitrogen (BldV) [Mass/Vol] 16 mg/dL Normal 8-20 [facility] Comment on above: Performed By: #### 4 8642-3x1, 92977-4, 97099-2, 08061-5 ####[facility], [address] [place], [place]. CBC W Auto Differential pane l (Bld)on 06-06-2020 Basophils (Bld) [#/Vol] 0.00 thou/mcL Normal 0.00-0.20 [facility] Comment on above: Performed By: #### 5 7021-8 ####[facility], [address] [place] [address]. Basophils/100 WBC (Bld) 0.5 % Normal 0.0-2.0 [facility] Comment on above: Performed By: #### 70-8 ####[facility], [address] [place] [address]. Eosinophils (Bld) [#/Vol] 0.10 thou/mcL Normal 0.00-0.70 [facility] Comment on above: Performed By: #### 7021-8 ####[facility], [address] [place] [address]. Eosinophils/100 WBC (Bld) 1.5 % Normal 0.0-7.0 [facility] Comment on above: Performed By: #### 7021-8 ####[facility], [address] [place] [address]. Erythrocyte distribution width (RBC) [Entitic vol] 13.5 % Normal 11.0-14.8 [facility] Comment on above: Performed By: #### 7021-8 ####[facility], [address] [place] [address]. Hematocrit (Bld) [Volume fraction] 38.2 % Normal 35.0-45.0 [facility] Comment on above: Performed By: #### 7021-8 ####[facility], [address] [place] [address]. Hemoglobin (Bld) [Mass/Vol] 13.2 g/dL Normal 12.0-16.0 [facility] Comment on above: Performed By: #### 7021-8 ####[facility], [address]. Lymphocytes (Bld) [#/Vol] 1.30 thou/mcL Normal 1.00-4.80 [facility] Comment on above: Performed By: #### 70-8 ####[facility], [address] Lymphocytes/100 WBC (Bld) 19.6 % Low 22.0-44.0 [facility] Comment on above: Performed By: #### 7020-8 ####[facility], [address] MCH (RBC) [Entitic mass] 29.1 Picograms Normal 27.0-34.0 [facility] Comment on above: Performed By: #### 7020-8 ####[facility], [facility] MCHC (RBC) [Mass/Vol] 34.6 g/dL Normal 32.0-36.0 [facility] Comment on above: Performed By: #### 7020-8 ####[facility], [facility] MCV (RBC) [Entitic vol] 84.0 fL Normal 80.0-97.0 [facility] Comment on above: Performed By: #### 70-8 ####[facility], [address]. Monocytes (Bld) [#/Vol] 0.50 thou/mcL Normal 0.00-0.90 [facility] Comment on above: Performed By: #### 70-8 ####[facility], [address]. Monocytes/100 WBC (Bld) 7.9 % Normal 0.0-12.0 [facility] Comment on above: Performed By: #### 70-8 ####[facility], [address] [place], [place]. Neutrophils (Bld) [#/Vol] 4.60 thou/mcL Normal 1.80-7.70 [facility] Comment on above: Performed By: #### 5 7021-8 ####[facility], [address] [place], [place]. Neutrophils/100 WBC (Bld) 70.5 % High 40.0-70.0 [facility] Comment on above: Performed By: #### 70-8 ####[facility], [address] [place], [place]. Platelet mean volume (Bld) [Entitic vol] 7.7 fL Normal 6.2-12.1 [facility] Comment on above: Performed By: #### 7021-8 ####[facility], [address] [place], [place]. Platelets (Bld) [#/Vol] 303 thou/mcL Normal 142-424 [facility] Comment on above: Performed By: #### 7021-8 ####[facility], [address] [place], [place]. RBC (Bld) [#/Vol] 4.54 million/mcL Normal 3.80-5.10 M [facility] Comment on above: Performed By: #### 5 7021-8 ####[facility], [address] [place], [place]. WBC (Bld) [#/Vol] 6.5 thou/mcL Normal 4.6-10.2 [facility] Comment on above: Performed By: #### 5 7021-8 ####[facility], [address] [place], [place]. ED Pat Eduon 06-06-[address] [facility] GFR/1.73 sq M.predicted (S/P /Bld) [Vol rate/Area]on 06-06-2020 GFR/1.73 sq M.predicted among blacks MDRD (S/P/Bld) [Vol rate/Area] mL/min/{1.73_m2} Normal [facility] Comment on above: Result Comment: The MDRD equation has not been validated for those over 70 years, women, patients with serious co-morbid conditions, or with extremes of bodysize, muscle mass of nutritional status. Performed By: #### 4 8642-3x1, 22026-7, 49607-4, 94095-4 ####[facility], [address], [place]. GFRbbon 06-06-2020 GFR/1.73 sq M.predicted among non-blacks MDRD (S/P/Bld) [Vol rate/Area] mL/min/{1.73_m2} Normal [facility] Comment on above: Performed By: #### 4 8642-3x1, 21666-8, 64190-1, 89271-3 ####[facility], [address], [place]. Pre-Arrival Formon Pre-Arrival Form Normal [facility] Troponin Ion 06-06-2020 Troponin I.cardiac [Mass/Vol] ng/mL Normal <0.06 [facility] Comment on above: Performed By: #### 4 8642-3x1, 02973-6, 21092-6, 09609-8 ####[facility], [address] [place] Basic metabolic 2000 panelon 05-31-2020 Anion gap [Moles/Vol] 7.0 mmol/L Normal 6.0-18.0 [facility] Comment on above: Performed By: #### 2 4321-2, 25860-1, 3040-3, 53111-3q5, 78589- 9 ####[facility], [address] Calcium [Mass/Vol] 8.8 mg/dL Low 8.9-10.3 [facility] Comment on above: Performed By: #### 2 4321-2, 26893-0, 3040-3, 45051-2e3, 64305- 9 ####[facility], [address] [address] [facility] [facility] Chloride [Moles/Vol] 108 mmol/L High 98-107 Moun [facility] Comment on above: Performed By: #### 2 4321-2, 35485-9, 3040-3, 71745-7q3, 04418- 9 ####[facility], [address] [place] CO2 [Moles/Vol] 24 mmol/L Normal 22-32 [facility] Comment on above: Performed By: #### 2 4321-2, 08319-0, 3040-3, 62341-5t4, 41986- 9 ####[facility], [address] [place]. Creatinine [Mass/Vol] 0.74 mg/dL Normal 0.66-1.30 [facility] Comment on above: Performed By: #### 2 4321-2, 33777-0, 3040-3, 36146-8t6, 30351- 9 ####[facility], [address] [place] Glucose [Mass/Vol] 102 mg/dL High 70-99 [facility] Comment on above: Result Comment: U pdated ADA Reference RangeA normal fasting glucose concentration is less than 100 mg/dL.An impaired fasting glucose concentration is 100-125 mg/dL. Aprovisional diagnosis of diabetes mellitus can be made when afasting glucose concentration is greater than 125 mg/dL. Performed By: #### 2 4321-2, 74051-1, 3040-3, 08222-8z1, 95747-2 ####[facility], [address] [place]. Potassium [Moles/Vol] 3.7 mmol/L Normal 3.6-5.1 [facility] Comment on above: Performed By: #### 2 4321-2, 10180-0, 3040-3, 95323-8q1, 36166- 9 ####[facility], [address] [place], [place]. Sodium [Moles/Vol] 139 mmol/L Normal 136-145 [facility] Comment on above: Performed By: #### 2 4321-2, 79299-9, 3040-3, 03820-7s0, 58421- 9 ####[facility], [address] [place], [place]. Urea nitrogen (BldV) [Mass/Vol] 15 mg/dL Normal 8-20 [facility] Comment on above: Performed By: #### 2 4321-2, 54460-8, 3040-3, 41255-2g2, 42915- 9 ####[facility], [address] [place] [address]. Coronavirus (COVID-19/SARS-C oV-2) RAPIDon 05-31-2020 Employed in healthcare No [facility] Comment on above: Performed By: #### 9 4532-9x2 ####[facility] [address] [place] [address] First test Unknown [facility] Comment on above: Performed By: #### 9 4531-9x2 ####[facility] [address] [place] [address] ICU No [facility] Comment on above: Performed By: #### 9 453-9x2 ####[facility] [address] [place] [address] Illness or injury onset date and time UNKNOWN [facility] Comment on above: Performed By: #### 9 453-9x2 ####[facility] [address] [place] [address] Patient was hospitalized because of this condition Yes [facility] Comment on above: Performed By: #### 9 453-9x2 ####[facility] [address] [place] [address] status NotPreg Normal [facility] Comment on above: Performed By: #### 9 4532-9x2 ####[facility] [address] [place] [address] Resides in congregate care setting No Normal [facility] Comment on above: Performed By: #### 9 4532-9x2 ####[address] [address] SARS-CoV-2 (COVID-19) RNA MARY+probe Ql (Resp) Not detected Normal NOTDET [facility] Comment on above: Result Comment: This test was performed via the Nitro NOW COVID-19 assay and has beenauthorized by FDA under an Emergency Use Authorization (EUA). The assay isvalidated for nasopharyngeal ([employer]), nasal, and oropharyngeal (OP) directswabs. The limit of detection of the assay is approximately 125 genomeequivalence/mL; however, detection of SARS-CoV-2 may be affected by thesample collection and transport methods, patient factors (e.g., presence ofsymptoms, and/or stage of infection), and a negative result does not ruleout the possibility of infection. For updated information, refer to theCenter for Disease Control website:www.cdc.gov/coronavirus. Performed By: #### 9 4532-9x2 ####[facility] [address] [place] [address] Symptomatic as defined by CDC No Normal [facility] Comment on above: Performed By: #### 9 4532-9x2 ####[facility] [address] [place] [address] Culture Urine + Susceptibili tyon 05-31-2020 Bacteria identified Cx Nom (U) Normal [facility] Comment on above: Performed By: #### 6 30-4 ####[facility] [address], [place] GFR/1.73 sq M.predicted (S/P /Bld) [Vol rate/Area]on 05-31-2020 GFR/1.73 sq M.predicted among blacks MDRD (S/P/Bld) [Vol rate/Area] mL/min/{1.73_m2} Normal [facility] Comment on above: Result Comment: The MDRD equation has not been validated for those over 70 years, women, patients with serious co-morbid conditions, or with extremes of bodysize, muscle mass of nutritional status. Performed By: #### 2 4321-2, 27760-1, 3040-3, 23410-7l6, 38270-9 ####[facility], [address] [place], [place]. GFRbbon 05-31-2020 GFR/1.73 sq M.predicted among non-blacks MDRD (S/P/Bld) [Vol rate/Area] mL/min/{1.73_m2} Normal [facility] Comment on above: Performed By: #### 2 4321-2, 22513-4, 3040-3, 47428-2k6, 48021- 9 ####[facility], [address], [place]. Hemogram and platelets WO di fferential panel (Bld)on 05-31-2020 Erythrocyte distribution width (RBC) [Entitic vol] 13.3 % Normal 11.0-14.8 [facility] Comment on above: Performed By: #### 2 4317-0 ####[facility], [address] [place], [place]. Hematocrit (Bld) [Volume fraction] 34.9 % Low 35.0-45.0 [facility] Comment on above: Performed By: #### 2 4317-0 ####[facility], [address], [place]. Hemoglobin (Bld) [Mass/Vol] 12.3 g/dL Normal 12.0-16.0 [facility] Comment on above: Performed By: #### 2 4317-0 ####[facility], [address], [place]. MCH (RBC) [Entitic mass] 29.1 Picograms Normal 27.0-34.0 [facility] Comment on above: Performed By: #### 2 4317-0 ####[facility], [address] [place], [place]. MCHC (RBC) [Mass/Vol] 35.3 g/dL Normal 32.0-36.0 [facility] Comment on above: Performed By: #### 2 4316-0 ####[facility], [address] [place], [place]. MCV (RBC) [Entitic vol] 82.5 fL Normal 80.0-97.0 [facility] Comment on above: Performed By: #### 2 4316-0 ####[facility], [address], [place]. Platelet mean volume (Bld) [Entitic vol] 7.3 fL Normal 6.2-12.1 [facility] Comment on above: Performed By: #### 2 4316-0 ####[facility], [address] [place], [place]. Platelets (Bld) [#/Vol] 207 thou/mcL Normal 142-424 [facility] Comment on above: Performed By: #### 2 7-0 ####[facility], [address] [place], [place]. RBC (Bld) [#/Vol] 4.23 million/mcL Normal 3.80-5.10 [facility] Comment on above: Performed By: #### 2 7-0 ####[facility], [address], [place]. WBC (Bld) [#/Vol] 5.3 thou/mcL Normal 4.6-10.2 [facility] Comment on above: Performed By: #### 2 7-0 ####[facility], [address], [place]. Hepatic function 2000 panelo n 05-31-2020 Albumin [Mass/Vol] 4.3 g/dL Normal 3.5-4.8 [facility] Comment on above: Performed By: #### 2 4321-2, 12131-1, 3040-3, 04493-5e7, 90489- 9 ####[facility], [address] [place], [place]. ALP [Catalytic activity/Vol] 32 Units/L Normal 32-91 [facility] Comment on above: Performed By: #### 2 4321-2, 13184-7, 3040-3, 29352-0s0, 44245- 9 ####[facility], [address] [place], [place]. ALT [Catalytic activity/Vol] 10 Units/L Low 14-63 [facility] Comment on above: Result Comment: Garcia bland note: Change in reference range for ALT occurred on 01/17/20 at [facility], [facility], and [facility]. Performed By: #### 2 4321-2, 49914-9, 3040-3, 40185-0s2, 60255-8 ####[facility], [address] [place], [place]. AST [Catalytic activity/Vol] 13 Units/L Low 15-41 [facility] Comment on above: Performed By: #### 2 4321-2, 21084-1, 3040-3, 35641-8e4, 91001- 9 ####[facility], [address] [place], [place]. Bilirubin [Mass/Vol] 0.3 mg/dL Normal 0.3-1.2 Moun [facility] Comment on above: Performed By: #### 2 4321-2, 97717-4, 3040-3, 64277-7n7, 10536- 9 ####[facility], [address] [place], [place]. Bilirubin.direct [Mass/Vol] mg/dL Abnormal 0.1-0.5 [facility] Comment on above: Performed By: #### 2 4321-2, 86324-3, 3040-3, 00231-8y8, 46511- 9 ####[facility], [address], [place]. Bilirubin.indirect [Mass/Vol] 0.3 mg/dL Normal 0.0-1.0 [facility] Comment on above: Performed By: #### 2 4321-2, 43965-8, 3040-3, 27928-7m3, 33926- 9 ####[facility], [address], [place]. Protein [Mass/Vol] 7.0 g/dL Normal 6.1-7.9 [facility] Comment on above: Performed By: #### 2 4321-2, 74494-7, 3040-3, 68174-2v8, 76839- 9 ####[facility], [address], [place]. Lipaseon 05-31-2020 Lipase [Catalytic activity/Vol] 34 Units/L Normal 22-51 [facility] Comment on above: Result Comment: Garcia bland note: Change in reference range for LIP occurred on 01/17/20 at [facility], [facility], and [facility]. Performed By: #### 2 4321-2, 30343-1, 3040-3, 26073-7t4, 25313-1 ####[facility], [address], [place]. Microscopic method Nom (U)on 05-31-2020 Bacteria LM.HPF (Urine sed) [#/Area] OCCASSNL Abnormal NONE/HPF [facility] Comment on above: Performed By: #### 7 2375-9, 71468-1 ####[facility], [address], [place]. Epithelial cells.squamous LM.HPF (Urine sed) [#/Area] MANY Abnormal FEW/LPF [facility] Comment on above: Performed By: #### 7 2375-9, 15519-0 ####[facility], [address], [place]. Mucus Ql (Urine sed) RARE Abnormal NONE/LPF [facility] Comment on above: Performed By: #### 7 2375-9, 71001-7 ####[facility], [address] [facility] [place] RBC LM.HPF (Urine sed) [#/Area] 1 /[HPF] Normal 0-5 [facility] Comment on above: Performed By: #### 7 2375-, 00199-3 ####[facility], [address] [facility] [place] WBC LM.HPF (Urine sed) [#/Area] 2 /[HPF] Normal 0-5 [facility] Comment on above: Performed By: #### 7 2375-, 69652-0 ####[facility], [address], [place]. Patient Summaryon 05-31-[address] [facility] Pre-Arrival Formon Pre-Arrival Form Normal [facility] US Abdomen Ltdon 05-31-2020 US Ab[address]en limited Normal [facility] Urinalysis complete W Reflex Culture panel (U)on 05-31-2020 Appearance (U) HAZY Abnormal CLEAR [facility] Comment on above: Performed By: #### 7 2375-9, 36909-8 ####[facility], [address] [facility] [place] [place]. Bilirubin (U) [Mass/Vol] Negative Normal NEGATIVE-NEGAT [facility] Comment on above: Performed By: #### 7 2375-9, 85725-4 ####[facility], [address] [facility] [place] [place] Color (U) YELLOW Normal YELLOW [facility] Comment on above: Performed By: #### 7 2375-, 14189-4 ####[facility], [address], [place]. Glucose Test strip (U) [Mass/Vol] NORMAL Normal NORMAL [facility] Comment on above: Performed By: #### 7 237-, 80260-8 ####[facility], [address], [place]. Hemoglobin Ql (U) Negative Normal NEGATIVE-N EGAT [facility] [facility] Comment on above: Performed By: #### 7 2374-, 97216-0 ####[facility], [address], [place]. Ketones (U) [Mass/Vol] Negative Normal NEGATIVE-NEGAT MCKENZ[facility] Comment on above: Performed By: #### 7 2374-, 18084-4 ####[facility], [address] [place] [address]. Leukocyte esterase Test strip Ql (U) 25/UL Abnormal NEGATIVE-NEGAT MCKENZIE [facility] Comment on above: Performed By: #### 7 2375-, 76203-1 ####[facility], [address] [facility] [place]. Nitrite Test strip (U) [Mass/Vol] Negative Normal NEGATIVE-NEGAT [facility]ENZ[place] [facility] Comment on above: Performed By: #### 7 2375-, 26557-6 ####[facility], [address], [place]. pH (U) 6.0 [pH] Normal 5.0-9.0 [facility] Comment on above: Performed By: #### 7 2375-, 70952-1 ####[facility], [address] [place] Protein (U) [Mass/Vol] 30 mg/dL Abnormal NEGATIVE-NEGAT MCKENZ[place] [facility] Comment on above: Performed By: #### 7 2375-9, 45373-2 ####[facility], [address] [place]. Specific gravity (U) [Rel density] 1.024 Normal 1.005-1.035 [facility] Comment on above: Performed By: #### 7 2375-9, 79056-2 ####[facility], [address] [place]. Urobilinogen (U) [Mass/Vol] NORMAL Normal [facility] Comment on above: Performed By: #### 7 2375-9, 39455-2 ####[facility], [address] [place] [place] ED Pat Eduon 05-27-2020 ED Pat Edu [facility] Pre-Arrival Formon Pre-Arrival Form [facility] Coronavirus (COVID-19/SARS-C oV-2) RAPIDon 05-21-2020 Employed in healthcare No [facility] Comment on above: Performed By: #### 9 4532-9x2 ####[facility] [address] [place] [address] First test No [facility] Comment on above: Performed By: #### 9 4532-9x2 ####NHMagdal[facility] GU[facility] [address] [place] [address] ICU No [facility] Comment on above: Performed By: #### 9 2-9x2 ####NHMagdaleno [facility] [address] [place] [address] Illness or injury onset date and time UNKNOWN [facility] Comment on above: Performed By: #### 9 4532-9x2 ####MTMagdaleno [facility] [address] [place], [place] [address] Patient was hospitalized because of this condition No [facility] Comment on above: Performed By: #### 9 4532-9x2 ####MTMagdaleno [facility] [address] [place], [place] [address] status NotPreg [facility] Comment on above: Performed By: #### 9 4532-9x2 ####[place] [address] Resides in congregate care setting No Normal [facility] Comment on above: Performed By: #### 9 4532-9x2 #### [address] [address] SARS-CoV-2 (COVID-19) RNA MARY+probe Ql (Resp) Not detected [facility] Comment on above: Result Comment: This test was performed via the [employer] NOW COVID-19 assay and has beenauthorized by FDA under an Emergency Use Authorization (EUA). The assay isvalidated for nasopharyngeal (FINANCE LEAD), nasal, and oropharyngeal (OP) directswabs. The limit of detection of the assay is approximately 125 genomeequivalence/mL; however, detection of SARS-CoV-2 may be affected by thesample collection and transport methods, patient factors (e.g., presence ofsymptoms, and/or stage of infection), and a negative result does not ruleout the possibility of infection. For updated information, refer to theCenter for Disease Control website:www.cdc.gov/coronavirus. Performed By: #### 9 4532-9x2 #### [address] [address] Symptomatic as defined by CDC Yes [facility] Comment on above: Performed By: #### 9 4532-9x2 ####[address] [address] ED Pat Eduon 05-21-2020 ED Pat Edu [facility] Pre-Arrival Formon Pre-Arrival Form Normal [facility] ED Pat Eduon 05-15-2020 ED Pat Edu [facility] Microscopic method Nom (U)on 05-14-2020 Epithelial cells.squamous LM.HPF (Urine sed) [#/Area] MANY Abnormal FEW/LPF [facility] Comment on above: Performed By: #### 7 2375-9, 21224-3 ####[facility], [address], [place]. Mucus Ql (Urine sed) OCCASSNL Abnormal NONE/LPF [facility] Comment on above: Performed By: #### 7 2375-, 49572-3 ####[facility], [address] [place], [place]. RBC LM.HPF (Urine sed) [#/Area] 7 /[HPF] High 0-5 [facility] Comment on above: Performed By: #### 7 2374-11, 76800-3 ####[facility], [address] WBC LM.HPF (Urine sed) [#/Area] 1 /[HPF] Normal 0-5 [facility] Comment on above: Performed By: #### 7 2374-11, 88478-2 ####[facility], [address] [facility] [place] Pre-Arrival Formon Pre-Arrival Form Normal [facility] Urinalysis dipstick W Reflex Microscopic panel (U)on 05-14-2020 Appearance (U) HAZY Abnormal CLEAR [facility] Comment on above: Performed By: #### 7 2375-, 93658-8 ####[facility], [address] [facility] [place], [place]. Bilirubin (U) [Mass/Vol] Negative Normal NEGATIVE-NEGAT MCKENZ[facility] Comment on above: Performed By: #### 7 2375-, 06660-2 ####[facility], [address], [place]. Color (U) YELLOW Normal YELLOW [facility] Comment on above: Performed By: #### 7 2375-, 04629-8 ####[facility], [address] [place]. Glucose Test strip (U) [Mass/Vol] NORMAL Normal NORMAL [facility] Comment on above: Performed By: #### 7 2375-9, 97794-9 ####[facility], [address] [place], [place]. Hemoglobin Ql (U) 10/UL Abnormal NEGATIVE-N EGAT [facility] [facility] Comment on above: Performed By: #### 7 2374-11, 07545-6 ####[facility], [address] [place] [address]. Ketones (U) [Mass/Vol] Negative Normal NEGATIVE-NEGAT MCKENZ[facility] Comment on above: Performed By: #### 7 2374-11, 86051-0 ####[facility], [address] [place] [address]. Leukocyte esterase Test strip Ql (U) Negative Normal NEGATIVE-NEGAT MCKENZ[facility] Comment on above: Performed By: #### Luly 2374-11, 30039-1 ####[facility], [address] [place] [address]. Nitrite Test strip (U) [Mass/Vol] Negative Normal NEGATIVE-NEGAT [facility] Comment on above: Performed By: #### 7 2374-, 14730-4 ####[facility], [address] [place] [address]. pH (U) 8.0 [pH] Normal 5.0-9.0 [facility] Comment on above: Performed By: #### 7 5-, 32668-3 ####[facility], [address] [place] [address]. Protein (U) [Mass/Vol] Negative Normal NEGATIVE-NEGAT MCKENZ[facility] Comment on above: Performed By: #### 7 2375-, 19876-0 ####[facility], [address] [place] [address]. Specific gravity (U) [Rel density] 1.020 Normal 1.005-1.035 [facility] Comment on above: Performed By: #### 7 2375-9, 71790-9 ####[facility], [address] [place], [place]. Urobilinogen (U) [Mass/Vol] NORMAL Normal NORMAL [facility] Comment on above: Performed By: #### 7 2375-9, 57415-0 ####[facility], [address], [place]. CBC WITH AUTO DIFFERENTIALon 05-13-2020 Basophils (Bld) [#/Vol] 0.03 10*3/uL [facility] Basophils/100 WBC (Bld) 0.5 % [facility] Eosinophils (Bld) [#/Vol] 0.09 10*3/uL [facility] Eosinophils/100 WBC (Bld) 1.6 % [facility] Erythrocyte distribution width (RBC) [Entitic vol] 13.2 % 11.6 - 14.8 % [facility] Hematocrit (Bld) [Volume fraction] 37.1 % 36.0 - 46.0 % [facility] Hemoglobin (Bld) [Mass/Vol] 12.0 g/dL 12.0 - 16.0 g/dL [facility] Immature granulocytes (Bld) [#/Vol] 0.01 10*3/uL [facility] Immature granulocytes/100 WBC (Bld) 0.20 % [facility] Comment on above: The IG parameter is the percentage of metamyelocytes, myelocytes and promyelocytes. An immature granulocyte count (IG) of 1% or more suggests the possibility of infection, an IG count of 3% is very likely related to an infection. Lymphocytes (Bld) [#/Vol] 1.53 10*3/uL [facility] Lymphocytes/100 WBC (Bld) 27.2 % [facility] MCH (RBC) [Entitic mass] 27.4 pg 26.0 - 34.0 pg [facility] MCHC (RBC) [Mass/Vol] 32.3 g/dL 31.0 - 37.0 g/dL [facility] MCV (RBC) [Entitic vol] 84.7 fL 80.0 - 100.0 fL [facility] Monocytes (Bld) [#/Vol] 0.39 10*3/uL [facility] Monocytes/100 WBC (Bld) 6.9 % [facility] Neutrophils (Bld) [#/Vol] 3.57 10*3/uL [facility] Neutrophils/100 WBC (Bld) 63.6 % [facility] Nucleated RBC (Bld) [#/Vol] 0.00 10*3/uL [facility] Nucleated RBC/100 WBC (Bld) [Ratio] 0.0 % [facility] Platelet mean volume (Bld) [Entitic vol] 9.4 fL 9.4 - 12.4 fL [facility] Platelets (Bld) [#/Vol] 247 10*3/uL [facility] RBC (Bld) [#/Vol] 4.38 10*6/uL [facility] WBC (Bld) [#/Vol] 5.62 10*3/uL [facility] eah Chem 7on 05-13-2020 Anion gap [Moles/Vol] 17 mmol/L 10 - 20 mmol/L [facility] Chloride [Moles/Vol] 106 mmol/L 98 - 10 8 mmol/L [facility] Creatinine [Mass/Vol] 0.71 mg/dL 0.40 - 1.10 [facility] GFR/1.73 sq M predicted among non-blacks MDRD (S/P/Bld) [Vol rate/Area] The eGFR should be used for monitoring renal function only and not for medication dosing. [facility] GFR/1.73 sq M.predicted CKD-EPI (S/P/Bld) [Vol rate/Area] 115 >=60 mL/min/1.73 m2 [facility] Glucose [Mass/Vol] 104 mg/dL High 65 - 99 mg/dL [facility] HCO3 [Moles/Vol] 22 mmol/L 21 - 32 mmol/L [facility] Interpretation and review of laboratory results Abnormal [facility] Potassium [Moles/Vol] 3.4 mmol/L Low 3.5 - 5.1 mmol/L [facility] Sodium [Moles/Vol] 142 mmol/L 135 - 145 mmol/L [facility] Urea nitrogen [Mass/Vol] 14 mg/dL 8 - 25 mg/dL [facility] Urea nitrogen/Creatinine [Mass ratio] 19.7 mg/mg [facility] HCG (QUALITATIVE)on 05-14-19 21 Beta HCG ( test) Ql Negative Negative [facility] Negative: The result is less than or equal to 5 mIU/mL of HCG. [facility] Hepatic Function Panel (LFT) on 05-13-2020 Albumin [Mass/Vol] 4.9 g/dL 3.2 - 5.2 g/dL [facility] ALP [Catalytic activity/Vol] 43 U/L 40 - 140 U/L [facility] ALT [Catalytic activity/Vol] 11 U/L 0 - 40 U/L [facility] AST [Catalytic activity/Vol] 17 U/L 0 - 45 U/L [facility] Bilirubin [Mass/Vol] mg/dL 0.0 - 1 .3 mg/dL [facility] Bilirubin.conjugated [Mass/Vol] mg/dL 0.0 - 0.4 mg/dL [facility] Protein [Mass/Vol] 7.9 g/dL 6.0 - 8.0 g/dL [facility] Lipaseon 05-13-2020 Lipase [Catalytic activity/Vol] 41 U/L 15 - 65 U/L [facility] Otheron 05-13-2020 Extra Tube Hold for add-ons. [facility] Comment on above: Auto resulted. Interpretation and review of laboratory results Normal [facility] Other 04-26-2020 Extra Tube Hold for add-ons. [facility] Comment on above: Auto resulted. ED Pat Eduon 04-25-[address] [facility] Pre-Arrival Formon 1 Pre-Arrival Form Normal [facility] XR Chest 1 Viewon 04-24-2020 XR Chest Single view Normal [facility] ED Pat Eduon 04-23-[address] [facility] Pre-Arrival Formon 1 Pre-Arrival Form Normal [facility] ED Pat Eduon 04-15-[address] [facility] Basic metabolic 2000 panelon 04-14-2020 Anion gap [Moles/Vol] 11.0 mmol/L Normal 6.0-18.0 [facility] Comment on above: Performed By: #### 6 9405-9, 44282-7, 3040-3, 24762-7, 71760-2, 48460-2h1 ####[facility], [address], [place]. Calcium [Mass/Vol] 9.5 mg/dL Normal 8.9-10.3 [facility] Comment on above: Performed By: #### 6 9405-9, 20556-7, 3040-3, 97085-4, 51211-8, 55740-3w1 ####[facility], [address], [place]. Chloride [Moles/Vol] 105 mmol/L Normal 98-107 [facility] Comment on above: Performed By: #### 6 9405-9, 38446-4, 3040-3, 64293-1, 59260-1, 20052-0n2 ####[facility], [address], [place]. CO2 [Moles/Vol] 24 mmol/L Normal 22-32 [facility] Comment on above: Performed By: #### 6 9405-9, 91795-0, 3040-3, 12770-8, 99586-1, 25229-7j7 ####[facility], [address], [place]. Creatinine [Mass/Vol] 0.64 mg/dL Low 0.66-1.30 [facility] Comment on above: Performed By: #### 6 9405-9, 45841-0, 3040-3, 30513-8, 03279-5, 61342-9j3 ####[facility], [address], [place]. Glucose [Mass/Vol] 101 mg/dL High 70-99 [facility] Comment on above: Result Comment: U pdated ADA Reference RangeA normal fasting glucose concentration is less than 100 mg/dL.An impaired fasting glucose concentration is 100-125 mg/dL. Aprovisional diagnosis of diabetes mellitus can be made when afasting glucose concentration is greater than 125 mg/dL. Performed By: #### 6 9405-9, 58510-3, 3040-3, 38376-9, 71855-8, 64955-2d4 ####[facility], [address] [place] [place] Potassium [Moles/Vol] 3.9 mmol/L Normal 3.6-5.1 [facility] Comment on above: Performed By: #### 6 9405-9, 19090-6, 3040-3, 15061-7, 10520-8, 18602-4c7 ####[facility], [address], [place]. Sodium [Moles/Vol] 140 mmol/L Normal 136-145 [facility] Comment on above: Performed By: #### 6 94-9, 16513-7, 3040-3, 10481-2, 17579-9, 75891-0d4 ####[facility], [address], [place]. Urea nitrogen (BldV) [Mass/Vol] 10 mg/dL Normal 8-20 [facility] Comment on above: Performed By: #### 6 9405-9, 39313-8, 3040-3, 76740-3, 70413-4, 23048-4m5 ####[facility], [address] [facility], [place], [place]. CBC W Auto Differential pane l (Bld)on 04-14-2020 Basophils (Bld) [#/Vol] 0.00 thou/mcL Normal 0.00-0.20 [facility] Comment on above: Performed By: #### 5 7021-8 ####[facility], [address] [facility], [place], [place]. Basophils/100 WBC (Bld) 0.7 % Normal 0.0-2.0 [facility] Comment on above: Performed By: #### 5 7021-8 ####[facility], [address] [place], [place]. Eosinophils (Bld) [#/Vol] 0.00 thou/mcL Normal 0.00-0.70 [facility] Comment on above: Performed By: #### 5 7021-8 ####[facility], [address], [place]. Eosinophils/100 WBC (Bld) 0.5 % Normal 0.0-7.0 [facility] Comment on above: Performed By: #### 5 7021-8 ####[facility], [address], [place]. Erythrocyte distribution width (RBC) [Entitic vol] 14.0 % Normal 11.0-14.8 [facility] Comment on above: Performed By: #### 70-8 ####[facility], [address] [place], [place]. Hematocrit (Bld) [Volume fraction] 33.1 % Low 35.0-45.0 [facility] Comment on above: Performed By: #### 70-8 ####[facility], [address] [place], [place]. Hemoglobin (Bld) [Mass/Vol] 11.6 g/dL Low 12.0-16.0 [facility] Comment on above: Performed By: #### 7021-8 ####[facility], [facility] [address] [place], [place]. Lymphocytes (Bld) [#/Vol] 1.30 thou/mcL Normal 1.00-4.80 [facility] Comment on above: Performed By: #### 7021-8 ####[facility], [address] [place], [place]. Lymphocytes/100 WBC (Bld) 21.5 % Low 22.0-44.0 [facility] Comment on above: Performed By: #### 7021-8 ####[facility], [address] [place], [place]. MCH (RBC) [Entitic mass] 28.9 Picograms Normal 27.0-34.0 [facility] Comment on above: Performed By: #### 70-8 ####[facility], [address], [place]. MCHC (RBC) [Mass/Vol] 35.1 g/dL Normal 32.0-36.0 [facility] Comment on above: Performed By: #### 5 7021-8 ####[facility], [address], [place]. MCV (RBC) [Entitic vol] 82.4 fL Normal 80.0-97.0 [facility] Comment on above: Performed By: #### 70-8 ####[facility], [address], [place]. Monocytes (Bld) [#/Vol] 0.30 thou/mcL Normal 0.00-0.90 [facility] Comment on above: Performed By: #### 70-8 ####[facility], [facility] [address] [place], [place]. Monocytes/100 WBC (Bld) 4.7 % Normal 0.0-12.0 [facility] Comment on above: Performed By: #### 7021-8 ####[facility], [address], [place]. Neutrophils (Bld) [#/Vol] 4.50 thou/mcL Normal 1.80-7.70 [facility] Comment on above: Performed By: #### 7021-8 ####[facility], [address], [place]. Neutrophils/100 WBC (Bld) 72.6 % High 40.0-70.0 [facility] Comment on above: Performed By: #### 7021-8 ####[facility], [address], [place]. Platelet mean volume (Bld) [Entitic vol] 7.8 fL Normal 6.2-12.1 [facility] Comment on above: Performed By: #### 70-8 ####[facility], [address] [place], [place]. Platelets (Bld) [#/Vol] 237 thou/mcL Normal 142-424 [facility] Comment on above: Performed By: #### 5 7021-8 ####[facility], [address] [place], [place]. RBC (Bld) [#/Vol] 4.01 million/mcL Normal 3.80-5.10 M [facility] Comment on above: Performed By: #### 5 7021-8 ####[facility], [address] [place]. WBC (Bld) [#/Vol] 6.2 thou/mcL Normal 4.6-10.2 [facility] Comment on above: Performed By: #### 5 7021-8 ####[facility], [address] [place], [place]. GFR/1.73 sq M.predicted (S/P /Bld) [Vol rate/Area]on 04-14-2020 GFR/1.73 sq M.predicted among blacks MDRD (S/P/Bld) [Vol rate/Area] mL/min/{1.73_m2} Normal [facility] Comment on above: Result Comment: The MDRD equation has not been validated for those over 70 years, women, patients with serious co-morbid conditions, or with extremes of bodysize, muscle mass of nutritional status. Performed By: #### 6 9405-9, 66535-3, 0-3, 81739-8, 30140-5, 39804-9v5 ####[facility], [address] [place], [place]. GFRbbon 04-14-2020 GFR/1.73 sq M.predicted among non-blacks MDRD (S/P/Bld) [Vol rate/Area] mL/min/{1.73_m2} Normal [facility] Comment on above: Performed By: #### 6 9405-9, 73318-0, 3040-3, 77607-1, 53717-9, 67203-4b1 ####[facility], [address] [place], [place]. Hepatic function 2000 panelo n 04-14-2020 Albumin [Mass/Vol] 4.2 g/dL Normal 3.5-4.8 [facility] Comment on above: Performed By: #### 6 9405-9, 69860-8, 3040-3, 22321-9, 40667-6, 21309-4f0 ####[facility], [address] [place], [place]. ALP [Catalytic activity/Vol] 34 Units/L Normal 32-91 [facility] Comment on above: Performed By: #### 6 9405-9, 70121-9, 3040-3, 59536-1, 01133-7, 86092-5c0 ####[facility], [address] [place], [place]. ALT [Catalytic activity/Vol] 17 Units/L Normal 14-63 [facility] Comment on above: Result Comment: Garcia bland note: Change in reference range for ALT occurred on 01/17/20 at [facility], [facility], and [facility]. Performed By: #### 6 9405-9, 88037-1, 3040-3, 75640-8, 22591-7, 86014-5w4 ####[facility], [address] [place], [place]. AST [Catalytic activity/Vol] 18 Units/L Normal 15-41 [facility] Comment on above: Performed By: #### 6 9405-9, 21775-8, 3040-3, 39982-3, 39730-0, 38057-6v8 ####[facility], [address] [place], [place]. Bilirubin [Mass/Vol] 0.5 mg/dL Normal 0.3-1.2 [facility] Comment on above: Performed By: #### 6 9405-9, 48863-1, 3040-3, 95201-6, 77183-3, 47980-2l6 ####[facility], [address], [place]. Bilirubin.direct [Mass/Vol] 0.1 mg/dL Normal 0.1-0.5 [facility] Comment on above: Performed By: #### 6 9405-9, 02050-8, 3040-3, 21788-4, 36696-7, 96053-7v5 ####[facility], [address], [place]. Bilirubin.indirect [Mass/Vol] 0.4 mg/dL Normal 0.0-1.0 [facility] Comment on above: Performed By: #### 6 9405-9, 91858-2, 3040-3, 04418-1, 97194-2, 63055-6r3 ####[facility], [address] [place], [place]. Protein [Mass/Vol] 7.3 g/dL Normal 6.1-7.9 [facility] Comment on above: Performed By: #### 6 9405-9, 20659-9, 3040-3, 93659-5, 95343-0, 73337-4h8 ####[facility], [address] [place], [place]. Lipaseon 04-14-2020 Lipase [Catalytic activity/Vol] 32 Units/L Normal 22-51 [facility] Comment on above: Result Comment: Garcia bland note: Change in reference range for LIP occurred on 01/17/20 at [facility], [facility], and [facility]. Performed By: #### 6 9405-9, 15557-1, 3040-3, 02547-0, 88502-4, 48834-2w8 ####[facility], [address], [place]. Magnesium Levelon 04-14-2020 Magnesium [Mass/Vol] 2.1 mg/dL Normal 1.8-2.5 [facility] Comment on above: Performed By: #### 6 9405-9, 31040-5, 3040-3, 61461-2, 91795-6, 06938-3j3 ####[facility], [address] [place] [address]. Microscopic method Nom (U)on 04-14-2020 Bacteria LM.HPF (Urine sed) [#/Area] RARE Abnormal NONE/HPF [facility] Comment on above: Performed By: #### 7 2375-9, 39498-1 ####[facility], [address] [place] [address]. Epithelial cells.squamous LM.HPF (Urine sed) [#/Area] MANY Abnormal FEW/LPF [facility] Comment on above: Performed By: #### 7 2375-9, 19957-9 ####[facility], [address] [place] [address]. Mucus Ql (Urine sed) RARE Abnormal NONE/LPF [facility] Comment on above: Performed By: #### 7 2375-9, 21350-3 ####[facility], [address] [place] [address]. RBC LM.HPF (Urine sed) [#/Area] 3 /[HPF] Normal 0-5 [facility] Comment on above: Performed By: #### 7 2375-9, 89859-5 ####[facility], [address] [place] [address]. WBC LM.HPF (Urine sed) [#/Area] 3 /[HPF] Normal 0-5 [facility] Comment on above: Performed By: #### 7 2375-9, 94538-3 ####[facility], [address] [place] [address]. Urinalysis dipstick W Reflex Microscopic panel (U)on 04-14-2020 Appearance (U) HAZY Abnormal CLEAR [facility] Comment on above: Performed By: #### 7 2375-, 40757-7 ####[facility], [address], [place]. Bilirubin (U) [Mass/Vol] Negative Normal NEGATIVE-NEGAT MCKENZIE [facility] Comment on above: Performed By: #### 7 2374-, 20237-8 ####[facility], [address], [place]. Color (U) YELLOW Normal YELLOW [facility] Comment on above: Performed By: #### 7 2374-, 84362-4 ####[facility], [address], [place]. Glucose Test strip (U) [Mass/Vol] NORMAL Normal NORMAL [facility] Comment on above: Performed By: #### 7 2374-, 36724-4 ####[facility], [address] [place] [address]. Hemoglobin Ql (U) 10/UL Abnormal NEGATIVE-N EGAT MCKEN[address] [facility] Comment on above: Performed By: #### 7 2374-, 48094-2 ####[facility], [address] [place] [address]. Ketones (U) [Mass/Vol] Negative Normal NEGATIVE-NEGAT MCKENZIE [facility] Comment on above: Performed By: #### 7 2375-, 96068-9 ####[facility], [address] [place] [address]. Leukocyte esterase Test strip Ql (U) Negative Normal NEGATIVE-NEGAT MCKENZIE [facility] Comment on above: Performed By: #### 7 237-, 11044-7 ####[facility], [address] [place]. Nitrite Test strip (U) [Mass/Vol] Negative Normal NEGATIVE-NEGAT MCKENZIE [facility] Comment on above: Performed By: #### 7 2374-, 93830-6 ####[facility], [address], [place]. pH (U) 7.0 [pH] Normal 5.0-9.0 [facility] Comment on above: Performed By: #### 7 2375-9, 69290-2 ####[facility], [address] [place] [address]. Protein (U) [Mass/Vol] Negative Normal NEGATIVE-NEGAT MCKENZIE [facility] Comment on above: Performed By: #### 7 2375-9, 77360-6 ####[facility], [address] [place] [address]. Specific gravity (U) [Rel density] 1.020 Normal 1.005-1.035 [facility] Comment on above: Performed By: #### 7 2375-9, 12863-2 ####[facility], [address] [place] [address]. Urobilinogen (U) [Mass/Vol] NORMAL Normal NORMAL [facility] Comment on above: Performed By: #### 7 2375-9, 49239-3 ####[facility], [address] [place] [address]. BMPon 04-06-2020 Anion gap [Moles/Vol] 15 mmol/L 10 - 20 mmol/L [facility] Calcium [Mass/Vol] 10.0 mg/dL 8.4 - 10. 2 mg/dL [facility] Chloride [Moles/Vol] 101 mmol/L 98 - 10 8 mmol/L [facility] Creatinine [Mass/Vol] 0.77 mg/dL 0.40 - 1.10 [facility] GFR/1.73 sq M predicted among non-blacks MDRD (S/P/Bld) [Vol rate/Area] The eGFR should be used for monitoring renal function only and not for medication dosing. [facility] GFR/1.73 sq M.predicted CKD-EPI (S/P/Bld) [Vol rate/Area] 105 >=60 mL/min/1.73 m2 [facility] Glucose [Mass/Vol] 91 mg/dL 65 - 99 mg/dL [facility] HCO3 [Moles/Vol] 27 mmol/L 21 - 32 mmol/L [facility] Potassium [Moles/Vol] 3.5 mmol/L 3.5 - 5.1 mmol/L [facility] Sodium [Moles/Vol] 139 mmol/L 135 - 145 mmol/L [facility] Urea nitrogen [Mass/Vol] 14 mg/dL 8 - 25 mg/dL [facility] Urea nitrogen/Creatinine [Mass ratio] 18.2 mg/mg [facility] CBC WITH AUTO DIFFERENTIALon 04-06-2020 Basophils (Bld) [#/Vol] 0.03 10*3/uL [facility] Basophils/100 WBC (Bld) 0.4 % [facility] Eosinophils (Bld) [#/Vol] 0.10 10*3/uL [facility] Eosinophils/100 WBC (Bld) 1.5 % [facility] Erythrocyte distribution width (RBC) [Entitic vol] 14.1 % 11.6 - 14.8 % [facility] Hematocrit (Bld) [Volume fraction] 39.5 % 36.0 - 46.0 % [facility] Hemoglobin (Bld) [Mass/Vol] 13.1 g/dL 12.0 - 16.0 g/dL [facility] Immature granulocytes (Bld) [#/Vol] 0.02 10*3/uL [facility] Immature granulocytes/100 WBC (Bld) 0.30 % [facility] Comment on above: The IG parameter is the percentage of metamyelocytes, myelocytes and promyelocytes. An immature granulocyte count (IG) of 1% or more suggests the possibility of infection, an IG count of 3% is very likely related to an infection. Lymphocytes (Bld) [#/Vol] 2.34 10*3/uL [facility] Lymphocytes/100 WBC (Bld) 34.1 % [facility] MCH (RBC) [Entitic mass] 27.9 pg 26.0 - 34.0 pg [facility] MCHC (RBC) [Mass/Vol] 33.2 g/dL 31.0 - 37.0 g/dL [facility] MCV (RBC) [Entitic vol] 84.2 fL 80.0 - 100.0 fL [facility] Monocytes (Bld) [#/Vol] 0.48 10*3/uL [facility] Monocytes/100 WBC (Bld) 7.0 % [facility] Neutrophils (Bld) [#/Vol] 3.90 10*3/uL [facility] Neutrophils/100 WBC (Bld) 56.7 % [facility] Nucleated RBC (Bld) [#/Vol] 0.00 10*3/uL [facility] Nucleated RBC/100 WBC (Bld) [Ratio] 0.0 % [facility] Platelet mean volume (Bld) [Entitic vol] 9.6 fL 9.4 - 12.4 fL [facility] Platelets (Bld) [#/Vol] 276 10*3/uL [facility] RBC (Bld) [#/Vol] 4.69 10*6/uL [facility] WBC (Bld) [#/Vol] 6.87 10*3/uL [facility] COVID-19/Influenza A,B Molec ularon 04-06-2020 Influenza A Not Detected [facility]ed [facility] Not Detected Not Detected [facility] Interpretation and review of laboratory results Abnormal [facility] SARS-CoV-2 Detected Abnormal Not Detected [facility] This test was perfor med under the FDA's Emergency Use Authorization (EUA). Testing was performed using the Nadira Jamie SARS-CoV-2 RT-PCR & Influenza A/B Nucleic Acid Test on the Jamie Almaz System. This test has not been approved for use in asymptomatic patients and its performance in this patient population has not been evaluated. Negative results do not rule out the presence of SARS-CoV-2, influenza A, and/or influenza B. Fact sheets for the EUA can be found at the following links: For Healthcare Providers: https://www.fda.gov/med ia/293087/download For Patients: https://www.fda.gov/med ia/067847/download [facility] CT KIDNEY STONEon 04-06-2020 Interface, Rad In Fu ji Speechq - 04/06/2020 8:47 PM EST EXAMINATION: CT KIDNEY STONE HISTORY: ORDERING SYSTEM PROVIDED HISTORY: Flank pain, kidney stone suspected, TECHNOLOGIST PROVIDED HISTORY: Illness/Other Reason for exam: Flank pain, kidney stone suspected Encounter Type: Initial Additional signs and symptoms: Flank pain, kidney stone suspected ORDERING SYSTEM PROVIDED DIAGNOSIS CODES: COMPARISON: 02/08/2020. TECHNIQUE: CT examination of the abdomen and pelvis without IV contrast. Coronal and sagittal reformations were performed. Dose reduction techniques were achieved by using automated exposure control and/or adjustment of mA and/or kV according to patient size and/or use of iterative reconstruction technique. FINDINGS: CT SCAN OF THE ABDOMEN: The visualized portion of liver and spleen are normal for a noncontrast study. Pancreas, adrenal glands and the kidneys are normal. Proximal bowel is normal. CT SCAN OF THE PELVIS: The distal ureters and the bladder normal. The uterus and adnexa unremarkable. Bowel and appendix are normal. No free fluid or inflammatory changes are seen. The bones and soft tissues are normal. IMPRESSION: 1. No acute process identified. Normal appendix. MA/dnb Workstation ID: [id number] [facility] 1. No acute process identified. Normal appendix. MA/dnb Workstation ID: [id number] [facility] EXAMINATION: CT KIDN EY STONE HISTORY: ORDERING SYSTEM PROVIDED HISTORY: Flank pain, kidney stone suspected, TECHNOLOGIST PROVIDED HISTORY: Illness/Other Reason for exam: Flank pain, kidney stone suspected Encounter Type: Initial Additional signs and symptoms: Flank pain, kidney stone suspected ORDERING SYSTEM PROVIDED DIAGNOSIS CODES: COMPARISON: 02/08/2020. TECHNIQUE: CT examination of the abdomen and pelvis without IV contrast. Coronal and sagittal reformations were performed. Dose reduction techniques were achieved by using automated exposure control and/or adjustment of mA and/or kV according to patient size and/or use of iterative reconstruction technique. FINDINGS: CT SCAN OF THE ABDOMEN: The visualized portion of liver and spleen are normal for a noncontrast study. Pancreas, adrenal glands and the kidneys are normal. Proximal bowel is normal. CT SCAN OF THE PELVIS: The distal ureters and the bladder normal. The uterus and adnexa unremarkable. Bowel and appendix are normal. No free fluid or inflammatory changes are seen. The bones and soft tissues are normal. [facility] HCG (QUALITATIVE)on 04-06-19 Beta HCG ( test) Ql Negative Negative [facility] Negative: The result is less than or equal to 5 mIU/mL of HCG. [facility] Hepatic Function Panel (LFT) on 04-06-2020 Albumin [Mass/Vol] 5.3 g/dL High 3.2 - 5.2 g/dL [facility] ALP [Catalytic activity/Vol] 47 U/L 40 - 140 U/L [facility] ALT [Catalytic activity/Vol] 18 U/L 0 - 40 U/L [facility] AST [Catalytic activity/Vol] 17 U/L 0 - 45 U/L [facility] Bilirubin [Mass/Vol] mg/dL 0.0 - 1 .3 mg/dL [facility] Bilirubin.conjugated [Mass/Vol] mg/dL 0.0 - 0.4 mg/dL [facility] Interpretation and review of laboratory results Abnormal [facility] Protein [Mass/Vol] 8.4 g/dL High 6.0 - 8.0 g/dL [facility] Lactic Acid, Plasmaon 2020 Interpretation and review of laboratory results Normal [facility] Lactate [Moles/Vol] 1.4 mmol/L 0.6 - 2. 0 mmol/L [facility] Lipaseon 04-06-2020 Lipase [Catalytic activity/Vol] 41 U/L 15 - 65 U/L [facility] Otheron 04-06-2020 Extra Tube Hold for add-ons. [facility] Comment on above: Auto resulted. Interpretation and review of laboratory results Normal [facility] URINALYSISon 04-06-2020 Bacteria Auto Ql (U) None Seen None Seen /hpf [facility] Bilirubin Ql (U) Negative Negative [facility] Clarity Refractometry automated (U) Clear Clear [facility] Color (U) Yellow Colorless, Yellow [facility] Epithelial cells.squamous Auto (Urine sed) [#/Area] 2 [facility] Glucose Auto test strip (U) [Mass/Vol] Negative Negative mg/dL [facility] Hemoglobin Auto test strip Ql (U) Moderate Abnormal Negative [facility] Interpretation and review of laboratory results Abnormal [facility] Ketones (U) [Mass/Vol] Negative Negative mg/dL [facility] Leukocyte esterase Auto test strip Ql (U) Negative Negative [facility] Mucus Auto (Urine sed) [#/Area] Rare None Seen, Rare /lpf [facility] Nitrite Auto test strip Ql (U) Negative Negative [facility] pH (U) 7.0 [pH] [facility] Protein (U) [Mass/Vol] Negative Negative mg/dL [facility] RBC Auto (Urine sed) [#/Area] 1 [facility] Specific gravity (U) [Rel density] 1.023 [facility] Urobilinogen (U) [Mass/Vol] <2.0 <2.0 mg/dL [facility] WBC Auto (Urine sed) [#/Area] 1 [facility] Microscopic examinat ion is performed on all urinalysis samples and only positive findings are reported. The test for blood on the chemical analytic portion of urinalysis may also be positive due to hemoglobinuria and myoglobinuria and if red blood cells are present they are quantified by microscopic examination. [facility] Comprehensive metabolic 2000 panelon 03-05-2020 Albumin [Mass/Vol] 4.4 g/dL Normal 3.5-4.8 [facility] Comment on above: Performed By: #### 2 4323-8 ####[facility], [address] [place], [place]. ALP [Catalytic activity/Vol] 38 Units/L Normal 32-91 [facility] Comment on above: Performed By: #### 2 4323-8 ####[facility], [address] [place], [place]. ALT [Catalytic activity/Vol] 15 Units/L Normal 14-63 [facility] Comment on above: Result Comment: Garcia bland note: Change in reference range for ALT occurred on 01/17/20 at [facility], [facility], and [facility]. Performed By: #### 2 4323-8 ####[facility], [address] [place], [place]. Anion gap [Moles/Vol] 12.0 mmol/L Normal 6.0-18.0 [facility] Comment on above: Performed By: #### 2 4323-8 ####[facility], [address] [place], [place]. AST [Catalytic activity/Vol] 18 Units/L Normal 15-41 [facility] Comment on above: Performed By: #### 2 4323-8 ####[facility], [address] [place], [place]. Bilirubin [Mass/Vol] 0.5 mg/dL Normal 0.3-1.2 [facility] Comment on above: Performed By: #### 2 4323-8 ####[facility], [address] [place], [place]. Calcium [Mass/Vol] 9.4 mg/dL Normal 8.9-10.3 [facility] Comment on above: Performed By: #### 2 4323-8 ####[facility], [address], [place]. Chloride [Moles/Vol] 107 mmol/L Normal 98-107 [facility] Comment on above: Performed By: #### 2 432-8 ####[facility], [address], [place]. CO2 [Moles/Vol] 18 mmol/L Low 22-32 [facility] Comment on above: Performed By: #### 2 432-8 ####[facility], [address], [place]. Creatinine [Mass/Vol] 0.67 mg/dL Normal 0.66-1.30 [facility] Comment on above: Performed By: #### 2 432-8 ####[facility], [address] [place] [address]. Glucose [Mass/Vol] 112 mg/dL High 70-99 [facility] Comment on above: Result Comment: U pdated ADA Reference RangeA normal fasting glucose concentration is less than 100 mg/dL.An impaired fasting glucose concentration is 100-125 mg/dL. Aprovisional diagnosis of diabetes mellitus can be made when afasting glucose concentration is greater than 125 mg/dL. Performed By: #### 2 432-8 ####[facility], [address] Potassium [Moles/Vol] 3.5 mmol/L Low 3.6-5.1 [facility] Comment on above: Performed By: #### 2 432-8 ####[facility], [address] [address] [facility] [place]. Protein [Mass/Vol] 7.5 g/dL Normal 6.1-7.9 [facility] Comment on above: Performed By: #### 2 432-8 ####[facility], [address] [place], [place]. Sodium [Moles/Vol] 137 mmol/L Normal 136-145 [facility] Comment on above: Performed By: #### 2 4323-8 ####[facility], [address] [place], [place]. Urea nitrogen (BldV) [Mass/Vol] 12 mg/dL Normal 8-20 [facility] Comment on above: Performed By: #### 2 4323-8 ####[facility], [address] [place], [place]. ED Pat Eduon 03-05-[address] [facility] Hemogram and platelets WO di fferential panel (Bld)on 03-05-2020 Erythrocyte distribution width (RBC) [Entitic vol] 13.6 % Normal 11.0-14.8 [facility] Comment on above: Performed By: #### 2 4317-0 ####[facility], [address] [place], [place]. Hematocrit (Bld) [Volume fraction] 37.8 % Normal 35.0-45.0 [facility] Comment on above: Performed By: #### 2 4317-0 ####[facility], [address] [place], [place]. Hemoglobin (Bld) [Mass/Vol] 12.8 g/dL Normal 12.0-16.0 [facility] Comment on above: Performed By: #### 2 4317-0 ####[facility], [address] [place], [place]. MCH (RBC) [Entitic mass] 28.0 Picograms Normal 27.0-34.0 [facility] Comment on above: Performed By: #### 2 4317-0 ####[facility], [address] [place], [place]. MCHC (RBC) [Mass/Vol] 33.9 g/dL Normal 32.0-36.0 [facility] Comment on above: Performed By: #### 2 4317-0 ####[facility], [address] [place], [place]. MCV (RBC) [Entitic vol] 82.7 fL Normal 80.0-97.0 [facility] Comment on above: Performed By: #### 2 4317-0 ####[facility], [address] [place], [place]. Platelet mean volume (Bld) [Entitic vol] 7.6 fL Normal 6.2-12.1 [facility] Comment on above: Performed By: #### 2 4317-0 ####[facility], [address] [place], [place]. Platelets (Bld) [#/Vol] 198 thou/mcL Normal 142-424 [facility] Comment on above: Performed By: #### 2 4317-0 ####[facility], [address]. RBC (Bld) [#/Vol] 4.57 million/mcL Normal 3.80-5.10 [facility] Comment on above: Performed By: #### 2 4317-0 ####[facility], [address], [place]. WBC (Bld) [#/Vol] 6.2 thou/mcL Normal 4.6-10.2 [facility] Comment on above: Performed By: #### 2 4317-0 ####[facility], [address], [place]. Pre-Arrival Formon 0 Pre-Arrival Form Normal [facility] Stick or puncture with a nee dle or other object contaminated with bloodon 03-05-2020 HIV 1 p24 Ab IB Ql (S) NONREAC Normal NONREAC [facility] Comment on above: Performed By: #### 5 5217-4 ####[facility], [address] [place], [place]. HIV 1+2 Ab IA.rapid Ql (Unsp spec) NONREAC Normal NONREAC [facility] Comment on above: Performed By: #### 5 5217-4 ####[facility], [address], [place]. ED Pat Eduon 02-24-[address] [facility] Basic metabolic 2000 panelon 02-23-2020 Anion gap [Moles/Vol] 11.0 mmol/L Normal 6.0-18.0 [facility] Comment on above: Performed By: #### 6 9405-9, 12002-7, 66826-2i5, 38082-4, 3040- 3 ####[facility], [address] [place], [place]. Calcium [Mass/Vol] 9.5 mg/dL Normal 8.9-10.3 [facility] Comment on above: Performed By: #### 6 9405-9, 33595-7, 54861-3j8, 39374-5, 3040- 3 ####[facility], [address] [facility], [place], [place]. Chloride [Moles/Vol] 104 mmol/L Normal 98-107 [facility] Comment on above: Performed By: #### 6 9405-9, 86853-6, 33208-6i6, 03482-3, 3040- 3 ####[facility], [address], [place]. CO2 [Moles/Vol] 24 mmol/L Normal 22-32 [facility] Comment on above: Performed By: #### 6 9405-9, 02231-6, 91235-6p5, 03093-4, 3040- 3 ####[facility], [address], [place]. Creatinine [Mass/Vol] 0.67 mg/dL Normal 0.66-1.30 [facility] Comment on above: Performed By: #### 6 9405-9, 51945-2, 62508-6o9, 55150-7, 3040- 3 ####[facility], [address] [place], [place]. Glucose [Mass/Vol] 94 mg/dL Normal 70-99 [facility] Comment on above: Result Comment: U pdated ADA Reference RangeA normal fasting glucose concentration is less than 100 mg/dL.An impaired fasting glucose concentration is 100-125 mg/dL. Aprovisional diagnosis of diabetes mellitus can be made when afasting glucose concentration is greater than 125 mg/dL. Performed By: #### 6 9405-9, 55750-6, 04576-0l7, 99002-7, 3040-3 ####[facility], [address] [place], [place]. Potassium [Moles/Vol] 4.1 mmol/L Normal 3.6-5.1 [facility] Comment on above: Performed By: #### 6 9405-9, 28728-2, 16578-1e7, 22719-4, 3040- 3 ####[facility], [address] [place] [address]. Sodium [Moles/Vol] 139 mmol/L Normal 136-145 [facility] Comment on above: Performed By: #### 6 9405-9, 33892-1, 51780-3n9, 53626-1, 3040- 3 ####[facility], [address] [place], [place]. Urea nitrogen (BldV) [Mass/Vol] 13 mg/dL Normal 8-20 [facility] Comment on above: Performed By: #### 6 9405-9, 90350-9, 04446-7z2, 70135-0, 3040- 3 ####[facility], [address] [place], [place]. CBC W Auto Differential pane l (Bld)on 02-23-2020 Basophils (Bld) [#/Vol] 0.00 thou/mcL Normal 0.00-0.20 [facility] Comment on above: Performed By: #### 5 7021-8 ####[facility], [address], [place]. Basophils/100 WBC (Bld) 0.4 % Normal 0.0-2.0 [facility] Comment on above: Performed By: #### 5 7021-8 ####[facility], [address], [place]. Eosinophils (Bld) [#/Vol] 0.10 thou/mcL Normal 0.00-0.70 [facility] Comment on above: Performed By: #### 5 7021-8 ####[facility], [facility] [address], [place]. Eosinophils/100 WBC (Bld) 1.3 % Normal 0.0-7.0 [facility] Comment on above: Performed By: #### 5 7021-8 ####[facility], [address] [place], [place]. Erythrocyte distribution width (RBC) [Entitic vol] 13.3 % Normal 11.0-14.8 [facility] Comment on above: Performed By: #### 5 7021-8 ####[facility], [address] [place], [place]. Hematocrit (Bld) [Volume fraction] 37.9 % Normal 35.0-45.0 [facility] Comment on above: Performed By: #### 5 7021-8 ####[facility], [address] [place], [place]. Hemoglobin (Bld) [Mass/Vol] 12.8 g/dL Normal 12.0-16.0 [facility] Comment on above: Performed By: #### 5 7021-8 ####[facility], [address], [place]. Lymphocytes (Bld) [#/Vol] 1.60 thou/mcL Normal 1.00-4.80 [facility] Comment on above: Performed By: #### 5 7021-8 ####[facility], [address]. Lymphocytes/100 WBC (Bld) 20.2 % Low 22.0-44.0 [facility] Comment on above: Performed By: #### 70-8 ####[facility], [address]. MCH (RBC) [Entitic mass] 28.0 Picograms Normal 27.0-34.0 [facility] Comment on above: Performed By: #### 70-8 ####[facility], [address]. MCHC (RBC) [Mass/Vol] 33.7 g/dL Normal 32.0-36.0 [facility] Comment on above: Performed By: #### 70-8 ####[facility], [address] MCV (RBC) [Entitic vol] 82.9 fL Normal 80.0-97.0 [facility] Comment on above: Performed By: #### 7021-8 ####[facility], [address]. Monocytes (Bld) [#/Vol] 0.50 thou/mcL Normal 0.00-0.90 [facility] Comment on above: Performed By: #### 7021-8 ####[facility], [address]. Monocytes/100 WBC (Bld) 5.9 % Normal 0.0-12.0 [facility] Comment on above: Performed By: #### 5 7021-8 ####[facility], [address]. Neutrophils (Bld) [#/Vol] 5.70 thou/mcL Normal 1.80-7.70 [facility] Comment on above: Performed By: #### 5 7021-8 ####[facility], [address] [place], [place]. Neutrophils/100 WBC (Bld) 72.2 % High 40.0-70.0 [facility] Comment on above: Performed By: #### 5 7021-8 ####[facility], [address] [place], [place]. Platelet mean volume (Bld) [Entitic vol] 7.4 fL Normal 6.2-12.1 [facility] Comment on above: Performed By: #### 5 7021-8 ####[facility], [address] [place], [place]. Platelets (Bld) [#/Vol] 218 thou/mcL Normal 142-424 [facility] Comment on above: Performed By: #### 5 7021-8 ####[facility], [address] [place], [place]. RBC (Bld) [#/Vol] 4.57 million/mcL Normal 3.80-5.10 [facility] Comment on above: Performed By: #### 5 7021-8 ####[facility], [address] [place], [place]. WBC (Bld) [#/Vol] 7.9 thou/mcL Normal 4.6-10.2 [facility] Comment on above: Performed By: #### 5 7021-8 ####[facility], [address] [place], [place]. GFR/1.73 sq M.predicted (S/P /Bld) [Vol rate/Area]on 02-23-2020 GFR/1.73 sq M.predicted among blacks MDRD (S/P/Bld) [Vol rate/Area] mL/min/{1.73_m2} Normal [facility] Comment on above: Result Comment: The MDRD equation has not been validated for those over 70 years, women, patients with serious co-morbid conditions, or with extremes of bodysize, muscle mass of nutritional status. Performed By: #### 6 9405-9, 57707-3, 15584-0d0, 80538-7, 3040-3 ####[facility], [address], [place]. GFRbbon 02-23-2020 GFR/1.73 sq M.predicted among non-blacks MDRD (S/P/Bld) [Vol rate/Area] mL/min/{1.73_m2} Normal [facility] Comment on above: Performed By: #### 6 9405-9, 55451-5, 32476-3w5, 83228-3, 3040- 3 ####[facility], [address], [place]. Hepatic function 2000 panelo n 02-23-2020 Albumin [Mass/Vol] 4.3 g/dL Normal 3.5-4.8 [facility] Comment on above: Performed By: #### 6 9405-9, 81536-9, 11122-8m1, 48041-3, 3040- 3 ####[facility], [address] [place]. ALP [Catalytic activity/Vol] 39 Units/L Normal 32-91 [facility] Comment on above: Performed By: #### 6 9405-9, 60687-6, 26560-8m1, 83199-0, 3040- 3 ####[facility], [address], [place]. ALT [Catalytic activity/Vol] 16 Units/L Normal 14-63 [facility] Comment on above: Result Comment: Garcia bland note: Change in reference range for ALT occurred on 01/17/20 at [facility], [facility], and [facility]. Performed By: #### 6 9405-9, 44390-5, 76074-8r0, 55335-2, 3040-3 ####[facility], [address] [place], [place]. AST [Catalytic activity/Vol] 18 Units/L Normal 15-41 [facility] Comment on above: Performed By: #### 6 9405-9, 20774-0, 30639-6l9, 07361-8, 3040- 3 ####[facility], [address] [place], [place]. Bilirubin [Mass/Vol] 0.5 mg/dL Normal 0.3-1.2 [facility] Comment on above: Performed By: #### 6 9405-9, 74929-0, 18804-6m6, 71344-8, 3040- 3 ####[facility], [address] [place], [place]. Bilirubin.direct [Mass/Vol] 0.0 mg/dL Low 0.1-0.5 [facility] Comment on above: Performed By: #### 6 9405-9, 30959-4, 63798-2h9, 48108-6, 3040- 3 ####[facility], [address] [place], [place]. Bilirubin.indirect [Mass/Vol] 0.5 mg/dL Normal 0.0-1.0 [facility] Comment on above: Performed By: #### 6 9405-9, 22969-4, 67749-9m1, 42740-0, 3040- 3 ####[facility], [address] [place], [place]. Protein [Mass/Vol] 7.4 g/dL Normal 6.1-7.9 [facility] Comment on above: Performed By: #### 6 9405-9, 83582-1, 45097-8e4, 31110-6, 3040- 3 ####[facility], [address], [place]. Lipaseon 02-23-2020 Lipase [Catalytic activity/Vol] 30 Units/L Normal 22-51 [facility] Comment on above: Result Comment: Garcia bland note: Change in reference range for LIP occurred on 01/17/20 at [facility], [facility], and [facility]. Performed By: #### 6 9405-9, 29408-6, 02223-6g1, 04133-2, 3040-3 ####[facility], [address] [place], [place]. Microscopic method Nom (U)on 02-23-2020 Bacteria LM.HPF (Urine sed) [#/Area] RARE Abnormal NONE/HPF [facility] Comment on above: Performed By: #### 7 2375-9, 24404-4 ####[facility], [address], [place]. Epithelial cells.squamous LM.HPF (Urine sed) [#/Area] MANY Abnormal FEW/LPF [facility] Comment on above: Performed By: #### 7 2375-9, 19687-7 ####[facility], [address] [facility] [place] [place]. Mucus Ql (Urine sed) RARE Abnormal NONE/LPF [facility] Comment on above: Performed By: #### 7 2375-9, 18824-1 ####[facility], [address] [place] RBC LM.HPF (Urine sed) [#/Area] 3 /[HPF] Normal 0-5 [facility] Comment on above: Performed By: #### 7 2375-9, 79202-7 ####[facility], [address] [facility] [place] WBC LM.HPF (Urine sed) [#/Area] 1 /[HPF] Normal 0-5 [facility] Comment on above: Performed By: #### 7 2375-9, 92872-3 ####[facility], [address] Pre-Arrival Formon 0 Pre-Arrival Form Normal [facility] Urinalysis dipstick W Reflex Microscopic panel (U)on 02-23-2020 Appearance (U) HAZY Abnormal CLEAR [facility] Comment on above: Performed By: #### 7 2375-, 46512-0 ####[facility], [address], [place]. Bilirubin (U) [Mass/Vol] Negative Normal NEGATIVE-NEGAT [facility]CKENZ[facility] Comment on above: Performed By: #### 7 2374-, 42796-5 ####[facility], [address], [place]. Color (U) YELLOW Normal YELLOW [facility] Comment on above: Performed By: #### 7 2374-, 87542-8 ####[facility], [address], [place]. Glucose Test strip (U) [Mass/Vol] NORMAL Normal NORMAL [facility] Comment on above: Performed By: #### 7 2374-, 18977-3 ####[facility], [address], [place]. Hemoglobin Ql (U) Negative Normal NEGATIVE-N EGAT [address] [facility] Comment on above: Performed By: #### 7 5-, 77219-5 ####[facility], [address], [place]. Ketones (U) [Mass/Vol] Negative Normal NEGATIVE-NEGAT [facility]ENZ[facility] Comment on above: Performed By: #### 7 2374-, 02034-3 ####[facility], [address], [place]. Leukocyte esterase Test strip Ql (U) Negative Normal NEGATIVE-NEGAT [facility]ENZ[facility] Comment on above: Performed By: #### 7 2374-, 95352-9 ####[facility], [address], [place]. Nitrite Test strip (U) [Mass/Vol] Negative Normal NEGATIVE-NEGAT M[facility]ENZ[facility] Comment on above: Performed By: #### 7 2375-9, 96756-6 ####[facility], [address] [place] [address]. pH (U) 9.0 [pH] High 5.0-9.0 [facility] Comment on above: Performed By: #### 7 2374-11, 69226-3 ####[facility], [address], [place]. Protein (U) [Mass/Vol] 100 mg/dL Abnormal NEGATIVE-NEGAT MCKENZ[facility] Comment on above: Performed By: #### 7 2374-11, 67621-9 ####[facility], [address] [place] [address]. Specific gravity (U) [Rel density] 1.021 Normal 1.005-1.035 [facility] Comment on above: Performed By: #### 7 2375, 37363-0 ####[facility], [address] [place] [address]. Urobilinogen (U) [Mass/Vol] NORMAL Normal NORMAL [facility] Comment on above: Performed By: #### 7 2375-, 29272-9 ####[facility], [address] [place] [address]. XR Abdomen 1 Viewon 02-23-20 20 XR Abdomen Single view Normal [facility] Basic metabolic 2000 panelon 02-17-2020 Anion gap [Moles/Vol] 13.0 mmol/L Normal 6.0-18.0 [facility] Comment on above: Performed By: #### 1 9123-9, 88392-8, 32875-0, 68599-5x8, 61181-2, 3040-3 ####[facility], [address], [place]. Calcium [Mass/Vol] 9.6 mg/dL Normal 8.9-10.3 [facility] Comment on above: Performed By: #### 1 9123-9, 47288-5, 75849-2, 35255-3d3, 77141-5, 3040-3 ####[facility], [address], [place]. Chloride [Moles/Vol] 101 mmol/L Normal 98-107 [facility] Comment on above: Performed By: #### 1 9123-9, 43480-8, 70992-4, 09239-3d0, 70416-0, 3040-3 ####[facility], [address], [place]. CO2 [Moles/Vol] 24 mmol/L Normal 22-32 [facility] Comment on above: Performed By: #### 1 9123-9, 06339-4, 52908-7, 63530-8c7, 08838-2, 3040-3 ####[facility], [address] [place] Creatinine [Mass/Vol] 0.79 mg/dL Normal 0.66-1.30 [facility] Comment on above: Performed By: #### 1 9123-9, 20229-2, 27433-9, 73037-6x0, 35524-7, 3040-3 ####[facility], [address] [place] Glucose [Mass/Vol] 104 mg/dL High 70-99 [facility] Comment on above: Result Comment: U pdated ADA Reference RangeA normal fasting glucose concentration is less than 100 mg/dL.An impaired fasting glucose concentration is 100-125 mg/dL. Aprovisional diagnosis of diabetes mellitus can be made when afasting glucose concentration is greater than 125 mg/dL. Performed By: #### 1 9123-9, 26614-6, 75127-2, 46126-0w0, 22446-9, 3040-3 ####[facility], [address], [place]. Potassium [Moles/Vol] 4.5 mmol/L Normal 3.6-5.1 [facility] Comment on above: Performed By: #### 1 9123-9, 45730-1, 90505-9, 66879-8h1, 59765-7, 3040-3 ####[facility], [address], [place]. Sodium [Moles/Vol] 138 mmol/L Normal 136-145 [facility] Comment on above: Performed By: #### 1 9123-9, 67138-6, 86410-3, 54772-4y1, 77697-2, 3040-3 ####[facility], [address], [place]. Urea nitrogen (BldV) [Mass/Vol] 20 mg/dL Normal 8-20 [facility] Comment on above: Performed By: #### 1 9123-9, 20423-1, 34792-0, 69675-9j9, 15160-0, 3040-3 ####[facility], [address] [place] [address]. ED Pat Eduon 02-17-[address] [facility] GFR/1.73 sq M.predicted (S/P /Bld) [Vol rate/Area]on 02-17-2020 GFR/1.73 sq M.predicted among blacks MDRD (S/P/Bld) [Vol rate/Area] mL/min/{1.73_m2} Normal [facility] Comment on above: Result Comment: The MDRD equation has not been validated for those over 70 years, women, patients with serious co-morbid conditions, or with extremes of bodysize, muscle mass of nutritional status. Performed By: #### 1 9123-9, 36990-6, 52983-3, 61269-0j4, 85613-5, 3040-3 ####[facility], [address], [place]. GFRbbon 02-17-2020 GFR/1.73 sq M.predicted among non-blacks MDRD (S/P/Bld) [Vol rate/Area] mL/min/{1.73_m2} Normal [facility] Comment on above: Performed By: #### 1 9123-9, 47136-6, 83057-7, 07688-7u2, 32429-2, 3040-3 ####[facility], [address] [address] [place]. Hemogram and platelets WO di fferential panel (Bld)on 02-17-2020 Erythrocyte distribution width (RBC) [Entitic vol] 13.4 % Normal 11.0-14.8 [facility] Comment on above: Performed By: #### 2 4317-0 ####[facility], [address] [place]. Hematocrit (Bld) [Volume fraction] 36.2 % Normal 35.0-45.0 [facility] Comment on above: Performed By: #### 2 4317-0 ####[facility], [address] [place]. Hemoglobin (Bld) [Mass/Vol] 12.3 g/dL Normal 12.0-16.0 [facility] Comment on above: Performed By: #### 2 4317-0 ####[facility], [address], [place]. MCH (RBC) [Entitic mass] 27.4 Picograms Normal 27.0-34.0 [facility] Comment on above: Performed By: #### 2 4317-0 ####[facility], [address], [place]. MCHC (RBC) [Mass/Vol] 34.0 g/dL Normal 32.0-36.0 [facility] Comment on above: Performed By: #### 2 4317-0 ####[facility], [address]. MCV (RBC) [Entitic vol] 80.5 fL Normal 80.0-97.0 [facility] Comment on above: Performed By: #### 2 4317-0 ####[facility], [address] [place], [place]. Platelet mean volume (Bld) [Entitic vol] 8.0 fL Normal 6.2-12.1 [facility] Comment on above: Performed By: #### 2 4317-0 ####[facility], [address] [place], [place]. Platelets (Bld) [#/Vol] 252 thou/mcL Normal 142-424 [facility] Comment on above: Performed By: #### 2 4317-0 ####[facility], [address] [place], [place]. RBC (Bld) [#/Vol] 4.50 million/mcL Normal 3.80-5.10 [facility] Comment on above: Performed By: #### 2 4317-0 ####[facility], [address] [place], [place]. WBC (Bld) [#/Vol] 5.6 thou/mcL Normal 4.6-10.2 [facility] Comment on above: Performed By: #### 2 4317-0 ####[facility], [address] [place], [place]. Hepatic function 2000 panelo n 02-17-2020 Albumin [Mass/Vol] 4.5 g/dL Normal 3.5-4.8 [facility] Comment on above: Performed By: #### 1 9123-9, 07017-7, 25352-7, 78315-6n9, 83982-6, 3040-3 ####[facility], [address] [place], [place]. ALP [Catalytic activity/Vol] 41 Units/L Normal 32-91 [facility] Comment on above: Performed By: #### 1 9123-9, 49864-6, 87580-8, 94396-0q1, 20188-9, 3040-3 ####[facility], [address] ALT [Catalytic activity/Vol] 18 Units/L Normal 14-63 [facility] Comment on above: Result Comment: Garcia bland note: Change in reference range for ALT occurred on 01/17/20 at [facility], [facility], and [facility]. Performed By: #### 1 9123-9, 65146-7, 95213-2, 25551-0l8, 82023-5, 3040-3 ####[facility], [address] AST [Catalytic activity/Vol] 24 Units/L Normal 15-41 [facility] Comment on above: Performed By: #### 1 9123-9, 00609-8, 14719-3, 71234-9d6, 43626-9, 3040-3 ####[facility], [address] [place], [place]. Bilirubin [Mass/Vol] 0.9 mg/dL Normal 0.3-1.2 [facility] Comment on above: Performed By: #### 1 9123-9, 82061-6, 37197-0, 08771-8v5, 91415-1, 3040-3 ####[facility], [address] [place], [place]. Bilirubin.direct [Mass/Vol] 0.3 mg/dL Normal 0.1-0.5 [facility] Comment on above: Performed By: #### 1 9123-9, 27258-7, 35966-5, 38205-0s4, 00963-6, 3040-3 ####[facility], [address] Bilirubin.indirect [Mass/Vol] 0.6 mg/dL Normal 0.0-1.0 [facility] Comment on above: Performed By: #### 1 9123-9, 24985-4, 46729-5, 79677-1o4, 23660-5, 3040-3 ####[facility], [address] [place], [place]. Protein [Mass/Vol] 7.3 g/dL Normal 6.1-7.9 [facility] Comment on above: Performed By: #### 1 9123-9, 43665-6, 00468-5, 53247-0b7, 23832-8, 3040-3 ####[facility] [place], [address], [place], [place]. Lipaseon 02-17-2020 Lipase [Catalytic activity/Vol] 29 Units/L Normal 22-51 [facility] Comment on above: Result Comment: Garcia bland note: Change in reference range for LIP occurred on 01/17/20 at [facility], [facility], and [facility]. Performed By: #### 1 9123-9, 59788-3, 43834-8, 00393-4z6, 84773-8, 3040-3 ####[facility], [address], [place], [place]. Magnesium Levelon 02-17-2020 Magnesium [Mass/Vol] 1.9 mg/dL Normal 1.8-2.5 [facility] Comment on above: Performed By: #### 1 9123-9, 23096-7, 07414-8, 40704-7u9, 77506-2, 3040-3 ####[facility], [address], [place], [place]. Microscopic method Nom (U)on 02-17-2020 Epithelial cells.squamous LM.HPF (Urine sed) [#/Area] MANY Abnormal FEW/LPF [facility] Comment on above: Performed By: #### 5 8077-9, 71341-4 ####[facility], [address] [place], [place]. Mucus Ql (Urine sed) RARE Abnormal NONE/LPF [facility] Comment on above: Performed By: #### 5 8077-9, 94697-5 ####[facility], [address], [place]. RBC LM.HPF (Urine sed) [#/Area] 1 /[HPF] Normal 0-5 [facility] Comment on above: Performed By: #### 5 8077-9, 22415-1 ####[facility], [address], [place] WBC LM.HPF (Urine sed) [#/Area] /[HPF] Normal 0-5/HPF [facility] Comment on above: Performed By: #### 5 8077-9, 52115-3 ####[facility], [address]. Urinalysis complete W Reflex Culture panel (U)on 02-17-2020 Appearance (U) CLEAR Normal CLEAR [facility] Comment on above: Performed By: #### 5 8077-9, 50551-4 ####[facility], [address]. Bilirubin (U) [Mass/Vol] Negative Normal NEGATIVE-NEGAT MCKENZ[facility] Comment on above: Performed By: #### 5 8077-9, 13415-9 ####[facility], [address], [place]. Color (U) STRAW Abnormal YELLOW [facility] Comment on above: Performed By: #### 5 8077-9, 15014-8 ####[facility], [address], [place]. Glucose Test strip (U) [Mass/Vol] NORMAL Normal NORMAL [facility] Comment on above: Performed By: #### 5 8077-9, 97318-7 ####[facility], [address], [place]. Hemoglobin Ql (U) 10/UL Abnormal NEGATIVE-N EGAT [facility] [facility] Comment on above: Performed By: #### 5 8077-9, 43415-4 ####[facility], [address]. Ketones (U) [Mass/Vol] Negative Normal NEGATIVE-NEGAT MCKENZIE [facility] Comment on above: Performed By: #### 5 8077-9, 19157-3 ####[facility], [address] [place], [place]. Leukocyte esterase Test strip Ql (U) Negative Normal NEGATIVE-NEGAT MCKENZIE [facility] Comment on above: Performed By: #### 5 8077-9, 01692-4 ####[facility], [address]. Nitrite Test strip (U) [Mass/Vol] Negative Normal NEGATIVE-NEGAT MCKENZIE [facility] Comment on above: Performed By: #### 5 8077-9, 13345-5 ####[facility], [address]. pH (U) 6.0 [pH] Normal 5.0-9.0 [facility] Comment on above: Performed By: #### 5 8077-9, 42176-9 ####[facility], [address] Protein (U) [Mass/Vol] Negative Normal NEGATIVE-NEGAT MCKENZIE [facility] Comment on above: Performed By: #### 5 8077-9, 73893-1 ####[facility] [place], [address]. Specific gravity (U) [Rel density] 1.020 Normal 1.005-1.035 [facility] Comment on above: Performed By: #### 5 8077-9, 89918-6 ####[facility] [place], [address], [place]. Urobilinogen (U) [Mass/Vol] NORMAL Normal NORMAL [facility] Comment on above: Performed By: #### 5 8077-9, 43819-3 ####[facility], [address], [place]. XR Abdomen 1 Viewon 02-17-20 20 XR Abdomen Single view Normal [facility] ED Pat Eduon 02-08-[address] [facility] ED Pat Edu Normal [facility] Glucose POCT (Uploaded)on Glucose [Mass/Vol] 75 mg/dL Normal 70-99 [facility] Comment on above: Result Comment: Dianna tment ranges and critical values established by [employer]. All follow-up actions were taken by [facility]. Performed By: #### 2 430-8 ####[facility] Hematologyon 02-08-2020 Basophils (Bld) [#/Vol] 0.03 10*3/uL [facility] Basophils/100 WBC (Bld) 0.5 % [facility] Eosinophils (Bld) [#/Vol] 0.09 10*3/uL [facility] Eosinophils/100 WBC (Bld) 1.5 % [facility] Hematocrit (Bld) [Volume fraction] 36.9 % 36 - 46 % [facility] Hemoglobin (Bld) [Mass/Vol] 12.3 g/dL 12 - 16 g/dL [facility] Lymphocytes (Bld) [#/Vol] 1.67 10*3/uL [facility] Lymphocytes/100 WBC (Bld) 28.0 % [facility] MCH (RBC) [Entitic mass] 27.6 pg 26 - 34 pg [facility] MCV (RBC) [Entitic vol] 82.9 fL 80 - 100 fL [facility] Monocytes (Bld) [#/Vol] 0.56 10*3/uL [facility] Monocytes/100 WBC (Bld) 9.4 % [facility] Neutrophils (Bld) [#/Vol] 3.59 10*3/uL [facility] Neutrophils/100 WBC (Bld) 60.3 % [facility] Nucleated RBC (Bld) [#/Vol] 0.00 10*3/uL [facility] Platelets (Bld) [#/Vol] 229 10*3/uL [facility] RBC (Bld) [#/Vol] 4.45 10*6/uL [facility] WBC (Bld) [#/Vol] 5.96 10*3/uL [facility] Metabolic Panelon 02-08-2020 Anion gap [Moles/Vol] 15 mmol/L 10 - 20 mmol/L [facility] Calcium [Mass/Vol] 9.9 mg/dL 8.4 - 10. 2 mg/dL [facility] Chloride [Moles/Vol] 103 mmol/L 98 - 10 8 mmol/L [facility] Creatinine [Mass/Vol] 0.73 mg/dL 0.40 - 1.10 [facility] GFR/1.73 sq M predicted among non-blacks MDRD (S/P/Bld) [Vol rate/Area] The eGFR should be used for monitoring renal function only and not for medication dosing. [facility] Glucose [Mass/Vol] 110 mg/dL High 65 - 99 mg/dL [facility] Potassium [Moles/Vol] 3.5 mmol/L 3.5 - 5.1 mmol/L [facility] Sodium [Moles/Vol] 140 mmol/L 135 - 145 mmol/L [facility] Urea nitrogen [Mass/Vol] 12 mg/dL 8 - 25 mg/dL [facility] Urea nitrogen/Creatinine [Mass ratio] 16.4 mg/mg [facility] Otheron 02-08-2020 Extra Tube Hold for add-ons. [facility] Comment on above: Auto resulted. 1. No intrathoracic, intraabdominal or pelvic organ injury. 2. No definite rib fractures, particularly on the left, are seen. iExplore/Slingbox Workstation ID: [id number] [facility] Interface, Rad In Fu ji Speechq - 02/08/2020 5:54 AM EST EXAMINATION: CT CHEST ABDOMEN PELVIS WITH IV CONTRAST ONLY 02/08/2020 HISTORY: ORDERING SYSTEM PROVIDED HISTORY: Fall, left chest wall/flank tenderness, TECHNOLOGIST PROVIDED HISTORY: Illness/Other Reason for Exam: Fall, left chest wall/flank tenderness Encounter Type: Initial Additional Signs and Symptoms: Fall, left chest wall/flank tenderness ORDERING SYSTEM PROVIDED DIAGNOSIS CODES: COMPARISON: Unenhanced CT scan of the abdomen and pelvis, 01/15/2020. CT chest, abdomen and pelvis, 09/30/2019. TECHNIQUE: 3 mm axial images from thoracic inlet through ischial tuberosities following administration of intravenous contrast were obtained. No oral contrast was utilized. Sagittal, coronal reconstructions were performed. Dose reduction techniques were achieved by using automated exposure control and/or adjustment of mA and/or kV according to patient size and/or use of iterative reconstruction technique. CONTRAST: IOPAMIDOL 76% INTRAVENOUS SOLUTION - 75 mL, FINDINGS: CT CHEST: There are no focal infiltrates, pleural effusions, nodular densities, pulmonary edema or pneumothorax. The visualized thyroid, great vessels, aorta, pericardium and the cardiac structures appear normal. There is no significant axillary, hilar or mediastinal adenopathy. CT ABDOMEN: Liver, spleen, gallbladder, pancreas, adrenal glands, kidneys appear normal. The abdominal aorta has normal caliber. There is no retroperitoneal or mesenteric adenopathy. There are no abnormally dilated loops of small or large bowel. The appendix appears normal. CT PELVIS: The bladder, uterus, ovaries appear normal. There is no definite pelvic or retroperitoneal adenopathy. There are no focal fluid collections. Images on bone windows demonstrate there are normally seated hip joints. There are no definite fractures of the pelvic bones. There are no fractures of the lumbar vertebral bodies. There are no fractures of the lower cervical or the thoracic segments of vertebral bodies. The sternum, manubrium, visualized clavicles, shoulder joints appear intact. No fractures of the right ribs are noted. There are no definite fractures of the left ribs as well. IMPRESSION: 1. No intrathoracic, intraabdominal or pelvic organ injury. 2. No definite rib fractures, particularly on the left, are seen. iExplore/Slingbox Workstation ID: [id number] [facility] EXAMINATION: CT CHES T ABDOMEN PELVIS WITH IV CONTRAST ONLY 02/08/2020 HISTORY: ORDERING SYSTEM PROVIDED HISTORY: Fall, left chest wall/flank tenderness, TECHNOLOGIST PROVIDED HISTORY: Illness/Other Reason for Exam: Fall, left chest wall/flank tenderness Encounter Type: Initial Additional Signs and Symptoms: Fall, left chest wall/flank tenderness ORDERING SYSTEM PROVIDED DIAGNOSIS CODES: COMPARISON: Unenhanced CT scan of the abdomen and pelvis, 01/15/2020. CT chest, abdomen and pelvis, 09/30/2019. TECHNIQUE: 3 mm axial images from thoracic inlet through ischial tuberosities following administration of intravenous contrast were obtained. No oral contrast was utilized. Sagittal, coronal reconstructions were performed. Dose reduction techniques were achieved by using automated exposure control and/or adjustment of mA and/or kV according to patient size and/or use of iterative reconstruction technique. CONTRAST: IOPAMIDOL 76% INTRAVENOUS SOLUTION - 75 mL, FINDINGS: CT CHEST: There are no focal infiltrates, pleural effusions, nodular densities, pulmonary edema or pneumothorax. The visualized thyroid, great vessels, aorta, pericardium and the cardiac structures appear normal. There is no significant axillary, hilar or mediastinal adenopathy. CT ABDOMEN: Liver, spleen, gallbladder, pancreas, adrenal glands, kidneys appear normal. The abdominal aorta has normal caliber. There is no retroperitoneal or mesenteric adenopathy. There are no abnormally dilated loops of small or large bowel. The appendix appears normal. CT PELVIS: The bladder, uterus, ovaries appear normal. There is no definite pelvic or retroperitoneal adenopathy. There are no focal fluid collections. Images on bone windows demonstrate there are normally seated hip joints. There are no definite fractures of the pelvic bones. There are no fractures of the lumbar vertebral bodies. There are no fractures of the lower cervical or the thoracic segments of vertebral bodies. The sternum, manubrium, visualized clavicles, shoulder joints appear intact. No fractures of the right ribs are noted. There are no definite fractures of the left ribs as well. [facility] Interpretation and review of laboratory results Normal [facility] GFR/1.73 sq M.predicted CKD-EPI (S/P/Bld) [Vol rate/Area] 112 >=60 mL/min/1.73 m2 [facility] HCO3 [Moles/Vol] 26 mmol/L 21 - 32 mmol/L [facility] Interpretation and review of laboratory results Abnormal [facility] Bacteria Auto Ql (U) None Seen None Seen /hpf [facility] Bilirubin Ql (U) Negative Negative [facility] th Clarity Refractometry automated (U) Hazy Abnormal Clear [facility] Epithelial cells.squamous Auto (Urine sed) [#/Area] 3 [facility] Glucose Auto test strip (U) [Mass/Vol] Negative Negative mg/dL [facility] Hemoglobin Auto test strip Ql (U) Moderate Abnormal Negative [facility] Interpretation and review of laboratory results Abnormal [facility] Ketones (U) [Mass/Vol] Negative Negative mg/dL [facility] Leukocyte esterase Auto test strip Ql (U) Small Abnormal Negative [facility] Mucus Auto (Urine sed) [#/Area] Rare None Seen, Rare /lpf [facility] Nitrite Auto test strip Ql (U) Negative Negative [facility] pH (U) 6.0 [pH] [facility] RBC Auto (Urine sed) [#/Area] 4 High [facility] Urobilinogen (U) [Mass/Vol] <2.0 <2.0 mg/dL [facility] WBC Auto (Urine sed) [#/Area] 7 High [facility] Microscopic examinat ion is performed on all urinalysis samples and only positive findings are reported. The test for blood on the chemical analytic portion of urinalysis may also be positive due to hemoglobinuria and myoglobinuria and if red blood cells are present they are quantified by microscopic examination. [facility] Erythrocyte distribution width (RBC) [Entitic vol] 13.0 % 11.6 - 14.8 % [facility] Immature granulocytes (Bld) [#/Vol] 0.02 10*3/uL [facility] Immature granulocytes/100 WBC (Bld) 0.30 % [facility] Comment on above: The IG parameter is the percentage of metamyelocytes, myelocytes and promyelocytes. An immature granulocyte count (IG) of 1% or more suggests the possibility of infection, an IG count of 3% is very likely related to an infection. MCHC (RBC) [Mass/Vol] 33.3 g/dL 31 - 37 g/dL [facility] Nucleated RBC/100 WBC (Bld) [Ratio] 0.0 % [facility] Platelet mean volume (Bld) [Entitic vol] 9.6 fL 9.4 - 12.4 fL [facility] Pre-Arrival Formon 0 Pre-Arrival Form Normal [facility] Urinalysison 02-08-2020 HCG ( test) Ql (U) Negative Negative [facility] Color (U) Yellow Colorless, Yellow [facility] Protein (U) [Mass/Vol] Negative Negative mg/dL [facility] Specific gravity (U) [Rel density] 1.021 [facility] CBC W Auto Differential pane l (Bld)on 02-07-2020 Basophils (Bld) [#/Vol] 0.00 thou/mcL Normal 0.00-0.20 [facility] Comment on above: Performed By: #### 5 7021-8 ####[facility], [address], [place]. Basophils/100 WBC (Bld) 0.6 % Normal 0.0-2.0 [facility] Comment on above: Performed By: #### 5 7021-8 ####[facility] [place], [address], [place]. Eosinophils (Bld) [#/Vol] 0.00 thou/mcL Normal 0.00-0.70 [facility] Comment on above: Performed By: #### 70-8 ####[facility] [place], [address] [place], [place]. Eosinophils/100 WBC (Bld) 0.3 % Normal 0.0-7.0 [facility] Comment on above: Performed By: #### 70-8 ####[facility], [address], [place]. Erythrocyte distribution width (RBC) [Entitic vol] 13.3 % Normal 11.0-14.8 [facility] Comment on above: Performed By: #### 70-8 ####[facility], [facility] [address] [place], [place]. Hematocrit (Bld) [Volume fraction] 36.6 % Normal 35.0-45.0 [facility] Comment on above: Performed By: #### 70-8 ####[facility] [place], [facility] [address], [place]. Hemoglobin (Bld) [Mass/Vol] 12.4 g/dL Normal 12.0-16.0 [facility] Comment on above: Performed By: #### 7021-8 ####[facility], [address], [place]. Lymphocytes (Bld) [#/Vol] 1.30 thou/mcL Normal 1.00-4.80 [facility] Comment on above: Performed By: #### 7021-8 ####[facility], [address], [place]. Lymphocytes/100 WBC (Bld) 15.2 % Low 22.0-44.0 [facility] Comment on above: Performed By: #### 7021-8 ####[facility] [place], [address], [place]. MCH (RBC) [Entitic mass] 27.7 Picograms Normal 27.0-34.0 [facility] Comment on above: Performed By: #### 70-8 ####[facility] [place], [address] [place], [place]. MCHC (RBC) [Mass/Vol] 33.9 g/dL Normal 32.0-36.0 [facility] Comment on above: Performed By: #### 70-8 ####[facility] [place], [address], [place] MCV (RBC) [Entitic vol] 81.8 fL Normal 80.0-97.0 [facility] Comment on above: Performed By: #### 70-8 ####[facility], [facility] [address] [place]. Monocytes (Bld) [#/Vol] 0.60 thou/mcL Normal 0.00-0.90 [facility] Comment on above: Performed By: #### 7021-8 ####[facility] [place], [address], [place]. Monocytes/100 WBC (Bld) 6.9 % Normal 0.0-12.0 [facility] Comment on above: Performed By: #### 7021-8 ####[facility], [address], [place]. Neutrophils (Bld) [#/Vol] 6.40 thou/mcL Normal 1.80-7.70 [facility] Comment on above: Performed By: #### 7021-8 ####[facility], [address], [place]. Neutrophils/100 WBC (Bld) 77.0 % High 40.0-70.0 [facility] Comment on above: Performed By: #### 7021-8 ####[facility], [address] [place], [place]. Platelet mean volume (Bld) [Entitic vol] 7.9 fL Normal 6.2-12.1 [facility] Comment on above: Performed By: #### 5 7021-8 ####[facility], [address] [place], [place]. Platelets (Bld) [#/Vol] 258 thou/mcL Normal 142-424 [facility] Comment on above: Performed By: #### 5 7021-8 ####[facility], [address] [place], [place] RBC (Bld) [#/Vol] 4.47 million/mcL Normal 3.80-5.10 [facility] Comment on above: Performed By: #### 5 7021-8 ####[facility], [address] [place], [place]. WBC (Bld) [#/Vol] 8.3 thou/mcL Normal 4.6-10.2 [facility] Comment on above: Performed By: #### 5 7021-8 ####[facility], [address] [place], [place] CT C-Spine w/o Contraston CT Cervical spine WO contrast Normal [facility] CT Head w/o Contraston 02-06 CT Head WO contrast Normal [facility] Comprehensive metabolic 2000 panelon 02-07-2020 Albumin [Mass/Vol] 4.5 g/dL Normal 3.5-4.8 [facility] Comment on above: Performed By: #### 4 8642-3x1, 77172-5, 65185-2, 3040-3 ####[facility], [address] [place], [place]. ALP [Catalytic activity/Vol] 39 Units/L Normal 32-91 [facility] Comment on above: Performed By: #### 4 8642-3x1, 78505-2, 89100-2, 3040-3 ####[facility], [address] [place], [place] ALT [Catalytic activity/Vol] 18 Units/L Normal 14-63 [facility] Comment on above: Result Comment: Garcia bland note: Change in reference range for ALT occurred on 01/17/20 at [facility], [facility], and [facility]. Performed By: #### 4 8642-3x1, 00912-7, 28461-6, 3040-3 ####[facility], [address] [place], [place]. Anion gap [Moles/Vol] 13.0 mmol/L Normal 6.0-18.0 [facility] Comment on above: Performed By: #### 4 8642-3x1, 16102-9, 01144-7, 3040-3 ####[facility], [address] [place], [place]. AST [Catalytic activity/Vol] 20 Units/L Normal 15-41 [facility] Comment on above: Performed By: #### 4 8642-3x1, 04450-3, 00777-4, 3040-3 ####[facility], [address] [place], [place]. Bilirubin [Mass/Vol] 0.4 mg/dL Normal 0.3-1.2 M[facility] Comment on above: Performed By: #### 4 8642-3x1, 85899-3, 93728-8, 3040-3 ####[facility], [address] [place], [place] Calcium [Mass/Vol] 9.5 mg/dL Normal 8.9-10.3 [facility] Comment on above: Performed By: #### 4 8642-3x1, 03943-1, 73359-3, 3040-3 ####[facility], [address] [place], [place]. Chloride [Moles/Vol] 105 mmol/L Normal 98-107 Moun [facility] Comment on above: Performed By: #### 4 8642-3x1, 73710-9, 15729-2, 0-3 ####[facility], [address] [place], [place]. CO2 [Moles/Vol] 22 mmol/L Normal 22-32 [facility] Comment on above: Performed By: #### 4 8642-3x1, 15982-0, 43367-6, 3039-3 ####[facility], [address] Creatinine [Mass/Vol] 0.71 mg/dL Normal 0.66-1.30 [facility] Comment on above: Performed By: #### 4 8642-3x1, 34806-7, 31769-8, 3039-3 ####[facility], [address] [place], [place]. Glucose [Mass/Vol] 102 mg/dL High 70-99 [facility] Comment on above: Result Comment: U pdated ADA Reference RangeA normal fasting glucose concentration is less than 100 mg/dL.An impaired fasting glucose concentration is 100-125 mg/dL. Aprovisional diagnosis of diabetes mellitus can be made when afasting glucose concentration is greater than 125 mg/dL. Performed By: #### 4 8642-3x1, 44033-1, 56981-2, 3039-3 ####[facility], [address], [place] Potassium [Moles/Vol] 3.6 mmol/L Normal 3.6-5.1 [facility] Comment on above: Performed By: #### 4 8642-3x1, 64873-5, 52609-0, 0-3 ####[facility], [address], [place] Protein [Mass/Vol] 7.6 g/dL Normal 6.1-7.9 [facility] Comment on above: Performed By: #### 4 8642-3x1, 38480-1, 49866-8, 0-3 ####[facility], [address] Sodium [Moles/Vol] 140 mmol/L Normal 136-145 [facility] Comment on above: Performed By: #### 4 8642-3x1, 80099-8, 14317-6, 0-3 ####[facility], [address] Urea nitrogen (BldV) [Mass/Vol] 12 mg/dL Normal 8-20 [facility] Comment on above: Performed By: #### 4 8642-3x1, 34178-3, 38163-7, 0-3 ####[facility], [address] GFR/1.73 sq M.predicted (S/P /Bld) [Vol rate/Area]on 02-07-2020 GFR/1.73 sq M.predicted among blacks MDRD (S/P/Bld) [Vol rate/Area] mL/min/{1.73_m2} Normal [facility] Comment on above: Result Comment: The MDRD equation has not been validated for those over 70 years, women, patients with serious co-morbid conditions, or with extremes of bodysize, muscle mass of nutritional status. Performed By: #### 4 8642-3x1, 83613-9, 21793-6, 0-3 ####[facility], [address], [place]. GFRbbon 02-07-2020 GFR/1.73 sq M.predicted among non-blacks MDRD (S/P/Bld) [Vol rate/Area] mL/min/{1.73_m2} Normal [facility] Comment on above: Performed By: #### 4 8642-3x1, 08332-4, 86778-7, 3040-3 ####[facility], [address] [place]. Lipaseon 02-07-2020 Lipase [Catalytic activity/Vol] 29 Units/L Normal 22-51 [facility] Comment on above: Result Comment: Garcia bland note: Change in reference range for LIP occurred on 01/17/20 at [facility], [facility], and [facility]. Performed By: #### 4 8642-3x1, 77494-1, 71761-3, 3040-3 ####ANTHONY CROWLEY [facility], [address] [place], [place]. Pre-Arrival Formon 0 Pre-Arrival Form Normal [facility] ED Pat Eduon 02-04-[address] [facility] Otheron 02-04-2020 Extra Tube Hold for add-ons. [facility] Comment on above: Auto resulted. Basic metabolic 2000 panelon 02-03-2020 Anion gap [Moles/Vol] 11.0 mmol/L Normal 6.0-18.0 [facility] Comment on above: Performed By: #### 6 9405-9, 94456-5q7, 42757-9 ####ANTHONY CROWLEY [facility], [address] [place], [place]. Calcium [Mass/Vol] 9.9 mg/dL Normal 8.9-10.3 [facility] Comment on above: Performed By: #### 6 9405-9, 35814-8r8, 88672-1 ####[facility], [address] [place], [place]. Chloride [Moles/Vol] 104 mmol/L Normal 98-107 [facility] Comment on above: Performed By: #### 6 9405-9, 47359-9m5, 96400-8 ####ANTHONY [facility], [address], [place]. CO2 [Moles/Vol] 24 mmol/L Normal 22-32 [facility] Comment on above: Performed By: #### 6 9405-9, 60890-7r0, 69407-7 ####[facility], [address], [place]. Creatinine [Mass/Vol] 0.73 mg/dL Normal 0.66-1.30 [facility] Comment on above: Performed By: #### 6 9405-9, 57960-3a2, 99157-4 ####[facility], [address], [place]. Glucose [Mass/Vol] 104 mg/dL High 70-99 [facility] Comment on above: Result Comment: U pdated ADA Reference RangeA normal fasting glucose concentration is less than 100 mg/dL.An impaired fasting glucose concentration is 100-125 mg/dL. Aprovisional diagnosis of diabetes mellitus can be made when afasting glucose concentration is greater than 125 mg/dL. Performed By: #### 6 9405-9, 02527-7q5, 29677-7 ####[facility], [address], [place]. Potassium [Moles/Vol] 3.4 mmol/L Low 3.6-5.1 [facility] Comment on above: Performed By: #### 6 9405-9, 95015-3i5, 84660-1 ####[facility], [address], [place]. Sodium [Moles/Vol] 139 mmol/L Normal 136-145 [facility] Comment on above: Performed By: #### 6 9405-9, 24008-6v5, 49325-2 ####[facility], [address], [place]. Urea nitrogen (BldV) [Mass/Vol] 13 mg/dL Normal 8-20 [facility] Comment on above: Performed By: #### 6 9405-9, 06018-6x6, 20148-4 ####[facility], [address], [place]. GFR/1.73 sq M.predicted (S/P /Bld) [Vol rate/Area]on 02-03-2020 GFR/1.73 sq M.predicted among blacks MDRD (S/P/Bld) [Vol rate/Area] mL/min/{1.73_m2} Normal [facility] Comment on above: Result Comment: The MDRD equation has not been validated for those over 70 years, women, patients with serious co-morbid conditions, or with extremes of bodysize, muscle mass of nutritional status. Performed By: #### 6 9405-9, 88972-9f6, 83262-5 ####[facility], [address], [place]. GFRbbon 02-03-2020 GFR/1.73 sq M.predicted among non-blacks MDRD (S/P/Bld) [Vol rate/Area] mL/min/{1.73_m2} Normal [facility] Comment on above: Performed By: #### 6 9405-9, 18506-6y9, 92984-8 ####[facility], [address] [place], [place]. Hemogram and platelets WO di fferential panel (Bld)on 02-03-2020 Erythrocyte distribution width (RBC) [Entitic vol] 12.9 % Normal 11.0-14.8 [facility] Comment on above: Performed By: #### 2 4317-0 ####[facility], [address] [place]. Hematocrit (Bld) [Volume fraction] 36.6 % Normal 35.0-45.0 [facility] Comment on above: Performed By: #### 2 4317-0 ####[facility], [address] [place]. Hemoglobin (Bld) [Mass/Vol] 12.7 g/dL Normal 12.0-16.0 [facility] Comment on above: Performed By: #### 2 4317-0 ####[facility], [address] [place]. MCH (RBC) [Entitic mass] 28.1 Picograms Normal 27.0-34.0 [facility] Comment on above: Performed By: #### 2 4317-0 ####[facility], [address] [place], [place]. MCHC (RBC) [Mass/Vol] 34.8 g/dL Normal 32.0-36.0 [facility] Comment on above: Performed By: #### 2 4316-0 ####[facility], [address] [place], [place]. MCV (RBC) [Entitic vol] 80.6 fL Normal 80.0-97.0 [facility] Comment on above: Performed By: #### 2 4316-0 ####[facility], [address], [place]. Platelet mean volume (Bld) [Entitic vol] 7.4 fL Normal 6.2-12.1 [facility] Comment on above: Performed By: #### 2 4316-0 ####[facility], [address] [place], [place]. Platelets (Bld) [#/Vol] 242 thou/mcL Normal 142-424 [facility] Comment on above: Performed By: #### 2 7-0 ####[facility], [address] [place], [place]. RBC (Bld) [#/Vol] 4.54 million/mcL Normal 3.80-5.10 [facility] Comment on above: Performed By: #### 2 7-0 ####[facility], [address] [place], [place]. WBC (Bld) [#/Vol] 7.0 thou/mcL Normal 4.6-10.2 [facility] Comment on above: Performed By: #### 2 7-0 ####[facility], [address], [place]. Microscopic method Nom (U)on 02-03-2020 Epithelial cells.squamous LM.HPF (Urine sed) [#/Area] MODERATE Abnormal FEW/LPF [facility] Comment on above: Performed By: #### 7 2375-9, 44125-0 ####[facility], [address] [place], [place]. Mucus Ql (Urine sed) RARE Abnormal NONE/LPF [facility] Comment on above: Performed By: #### 7 2374-, 39267-9 ####[facility], [address] [place], [place]. RBC LM.HPF (Urine sed) [#/Area] 6 /[HPF] High 0-5 [facility] Comment on above: Performed By: #### 7 2375-, 83500-7 ####[facility], [address]. WBC LM.HPF (Urine sed) [#/Area] 30 /[HPF] High 0-5 [facility] Comment on above: Performed By: #### 7 2375-9, 86849-7 ####[facility], [address] [place], [place]. Pre-Arrival Formon 0 Pre-Arrival Form Normal [facility] Urinalysis dipstick W Reflex Microscopic panel (U)on 02-03-2020 Appearance (U) HAZY Abnormal CLEAR [facility] Comment on above: Performed By: #### 7 2375-9, 18918-4 ####[facility], [address], [place]. Bilirubin (U) [Mass/Vol] Negative Normal NEGATIVE-NEGAT MCKENZIE [facility] Comment on above: Performed By: #### 7 2375-, 73299-3 ####[facility], [address]. Color (U) YELLOW Normal YELLOW [facility] Comment on above: Performed By: #### 7 237-9, 63855-4 ####[facility], [address]. Glucose Test strip (U) [Mass/Vol] NORMAL Normal NORMAL [facility] Comment on above: Performed By: #### 7 2375-9, 43017-1 ####[facility], [address]. Hemoglobin Ql (U) 10/UL Abnormal NEGATIVE-N EGAT MCKENZIE [facility] Comment on above: Performed By: #### 7 237-, 84584-9 ####[facility], [address]. Ketones (U) [Mass/Vol] Negative Normal NEGATIVE-NEGAT MCKENZIE [facility] Comment on above: Performed By: #### 7 2375-, 75484-3 ####[facility], [address]. Leukocyte esterase Test strip Ql (U) 250/UL Abnormal NEGATIVE-NEGAT MCKENZIE [facility] Comment on above: Performed By: #### 7 2375-9, 31518-8 ####[facility], [address]. Nitrite Test strip (U) [Mass/Vol] Negative Normal NEGATIVE-NEGAT MCKENZIE [facility] Comment on above: Performed By: #### 7 2375-9, 12161-9 ####[facility], [address]. pH (U) 7.0 [pH] Normal 5.0-9.0 [facility] Comment on above: Performed By: #### 7 2375-9, 52719-9 ####[facility], [address] Protein (U) [Mass/Vol] 100 mg/dL Abnormal NEGATIVE-NEGAT MCKENZIE [facility] Comment on above: Performed By: #### 7 2375-9, 55050-2 ####[facility], [address] [place], [place]. Specific gravity (U) [Rel density] 1.023 Normal 1.005-1.035 [facility] Comment on above: Performed By: #### 7 2375-9, 38112-8 ####ANTHONY PAULA [facility], [address]. Urobilinogen (U) [Mass/Vol] NORMAL Normal NORMAL [facility] Comment on above: Performed By: #### 7 2375-9, 22818-5 ####AN[facility]ONY [facility], [address] [place]. ED Pat Eduon 02-01-[address] [facility] Basic metabolic 2000 panelon 01-31-2020 Anion gap [Moles/Vol] 12.0 mmol/L Normal 6.0-18.0 [facility] Comment on above: Performed By: #### 2 4321-2, 18919-5d5, 19475-7 ####ANTHONY [facility], [address] [place]. Calcium [Mass/Vol] 9.9 mg/dL Normal 8.9-10.3 [facility] Comment on above: Performed By: #### 2 4321-2, 64957-8l9, 18533-9 ####ANTHONY CROWLEY [facility], [address] [place], [place]. Chloride [Moles/Vol] 103 mmol/L Normal 98-107 [facility] Comment on above: Performed By: #### 2 4321-2, 69998-7e7, 62474-6 ####[facility]ONY [facility], [address], [place]. CO2 [Moles/Vol] 26 mmol/L Normal 22-32 [facility] Comment on above: Performed By: #### 2 4321-2, 68880-8w0, 19752-5 ####[facility], [address], [place]. Creatinine [Mass/Vol] 0.79 mg/dL Normal 0.66-1.30 [facility] Comment on above: Performed By: #### 2 4321-2, 38703-2k9, 65780-4 ####[facility], [address]. Glucose [Mass/Vol] 106 mg/dL High 70-99 [facility] Comment on above: Result Comment: U pdated ADA Reference RangeA normal fasting glucose concentration is less than 100 mg/dL.An impaired fasting glucose concentration is 100-125 mg/dL. Aprovisional diagnosis of diabetes mellitus can be made when afasting glucose concentration is greater than 125 mg/dL. Performed By: #### 2 4321-2, 56209-7i5, 07502-0 ####[facility], [address] [place]. Potassium [Moles/Vol] 3.8 mmol/L Normal 3.6-5.1 [facility] Comment on above: Performed By: #### 2 4321-2, 94235-3y7, 73710-4 ####[facility], [address]. Sodium [Moles/Vol] 141 mmol/L Normal 136-145 [facility] Comment on above: Performed By: #### 2 4321-2, 55578-5d2, 71387-5 ####[facility], [address]. Urea nitrogen (BldV) [Mass/Vol] 11 mg/dL Normal 8-20 [facility] Comment on above: Performed By: #### 2 4321-2, 40821-4u1, 68026-5 ####[facility], [address], [place] CT Abd and Pelvis w Contrast on 01-31-2020 CT Abd and Pelvis w Contrast Normal [facility] GFR/1.73 sq M.predicted (S/P /Bld) [Vol rate/Area]on 01-31-2020 GFR/1.73 sq M.predicted among blacks MDRD (S/P/Bld) [Vol rate/Area] mL/min/{1.73_m2} Normal [facility] Comment on above: Result Comment: The MDRD equation has not been validated for those over 70 years, women, patients with serious co-morbid conditions, or with extremes of bodysize, muscle mass of nutritional status. Performed By: #### 2 4321-2, 44892-3k5, 81701-2 ####[facility], [address], [place]. GFRbbon 01-31-2020 GFR/1.73 sq M.predicted among non-blacks MDRD (S/P/Bld) [Vol rate/Area] mL/min/{1.73_m2} Normal [facility] Comment on above: Performed By: #### 2 4321-2, 76606-5x7, 15221-9 ####[facility], [address], [place]. Hemogram and platelets WO di fferential panel (Bld)on 01-31-2020 Erythrocyte distribution width (RBC) [Entitic vol] 13.2 % Normal 11.0-14.8 [facility] Comment on above: Performed By: #### 2 4317-0 ####[facility], [address], [place]. Hematocrit (Bld) [Volume fraction] 34.4 % Low 35.0-45.0 [facility] Comment on above: Performed By: #### 2 4317-0 ####[facility], [address], [place]. Hemoglobin (Bld) [Mass/Vol] 11.7 g/dL Low 12.0-16.0 [facility] Comment on above: Performed By: #### 2 4317-0 ####[facility], [address] [place], [place]. MCH (RBC) [Entitic mass] 28.0 Picograms Normal 27.0-34.0 [facility] Comment on above: Performed By: #### 2 7-0 ####[facility], [address] [place], [place]. MCHC (RBC) [Mass/Vol] 34.2 g/dL Normal 32.0-36.0 [facility] Comment on above: Performed By: #### 2 4316-0 ####[facility], [address] [place], [place]. MCV (RBC) [Entitic vol] 81.9 fL Normal 80.0-97.0 [facility] Comment on above: Performed By: #### 2 4316-0 ####[facility], [address] [place], [place]. Platelet mean volume (Bld) [Entitic vol] 7.3 fL Normal 6.2-12.1 [facility] Comment on above: Performed By: #### 2 4316-0 ####[facility], [address] [place], [place]. Platelets (Bld) [#/Vol] 231 thou/mcL Normal 142-424 [facility] Comment on above: Performed By: #### 2 4316-0 ####[facility], [address] [place], [place]. RBC (Bld) [#/Vol] 4.20 million/mcL Normal 3.80-5.10 [facility] Comment on above: Performed By: #### 2 4316-0 ####[facility], [address] [place], [place]. WBC (Bld) [#/Vol] 7.3 thou/mcL Normal 4.6-10.2 [facility] Comment on above: Performed By: #### 2 4316-0 ####[facility], [address], [place]. Microscopic method Nom (U)on 01-31-2020 Bacteria LM.HPF (Urine sed) [#/Area] RARE Abnormal NONE/HPF [facility] Comment on above: Performed By: #### 5 20-0, 29974-5 ####[facility], [address] [place] [address]. Epithelial cells.squamous LM.HPF (Urine sed) [#/Area] MANY Abnormal FEW/LPF [facility] Comment on above: Performed By: #### 5 20-0, 48511-0 ####[facility], [address] [place] [address]. Mucus Ql (Urine sed) OCCASSNL Abnormal NONE/LPF [facility] Comment on above: Performed By: #### 5 20-0, 55799-4 ####[facility], [address] [place] [address]. RBC LM.HPF (Urine sed) [#/Area] 8 /[HPF] High 0-5 [facility] Comment on above: Performed By: #### 5 20-0, 23356-2 ####[facility], [address] [place] [address]. WBC LM.HPF (Urine sed) [#/Area] 16 /[HPF] High 0-5 [facility] Comment on above: Performed By: #### 5 20-0, 25530-9 ####[facility], [address], [place]. Urinalysis dipstick W Reflex Microscopic panel (U)on 01-31-2020 Appearance (U) HAZY Abnormal CLEAR [facility] Comment on above: Performed By: #### 5 20-0, 88859-1 ####[facility], [address], [place]. Bilirubin (U) [Mass/Vol] Negative Normal NEGATIVE-NEGAT MCKENZIE [facility] Comment on above: Performed By: #### 5 20-0, 57177-8 ####[facility], [address], [place]. Color (U) YELLOW Normal YELLOW [facility] Comment on above: Performed By: #### 5 20-0, 31850-8 ####[facility], [address] [facility] Glucose Test strip (U) [Mass/Vol] NORMAL Normal NORMAL [facility] Comment on above: Performed By: #### 5 20-0, 35753-3 ####[facility], [address], [place]. Hemoglobin Ql (U) 10/UL Abnormal NEGATIVE-N EGAT M[address] [facility] Comment on above: Performed By: #### 5 7019-0, 08851-2 ####[facility], [address] [place] [address]. Ketones (U) [Mass/Vol] Negative Normal NEGATIVE-NEGAT MCKENZIE [facility] Comment on above: Performed By: #### 5 20-0, 11638-7 ####[facility], [address] [place]. Leukocyte esterase Test strip Ql (U) 75/UL Abnormal NEGATIVE-NEGAT MCKENZIE [facility] Comment on above: Performed By: #### 5 20-0, 66616-4 ####[facility], [address] [place] Nitrite Test strip (U) [Mass/Vol] Negative Normal NEGATIVE-NEGAT MCKENZIE [facility] Comment on above: Performed By: #### 5 7020-0, 45845-7 ####[facility], [address] [place] pH (U) 7.0 [pH] Normal 5.0-9.0 [facility] Comment on above: Performed By: #### 5 7020-0, 11386-7 ####[facility], [address] Protein (U) [Mass/Vol] 500 mg/dL Abnormal NEGATIVE-NEGAT MCKENZIE [facility] Comment on above: Performed By: #### 5 7020-0, 26631-0 ####[facility], [address] [place], [place]. Specific gravity (U) [Rel density] 1.024 Normal 1.005-1.035 [facility] Comment on above: Performed By: #### 5 7020-0, 27626-9 ####[facility], [address] [place], [place]. Urobilinogen (U) [Mass/Vol] NORMAL Normal NORMAL [facility] Comment on above: Performed By: #### 5 7020-0, 46429-8 ####[facility], [address] [place] Anoscopyon 01-29-2020 Thanh Morris CNP 01/29/2020 2:56 AM Anoscopy Date/Time: 01/29/2020 1:32 AM Performed by: Thanh Morris CNP Authorized by: Giovanni Gonzáles DO Verbal consent: obtained Consent given by: patient Relevant documents: Relevent documents present and verified. Medical history, medications, allergies and physical assessment reviewed/completed Test results: test results available and properly labeled Required items: required blood products, implants, devices, and special equipment available Patient identity confirmed: verified patient name and and verbally with patient Time out: Immediately prior to procedure a time out was called to verify the correct patient, procedure, equipment, support dba and site/side marked as required. Physician or proceduralist has discussed critical or nonroutine steps, procedure duration and anticipated blood loss: N/A All team members agree to proceed: Yes (Mena RN) Indications: constipation, irritable bowel syndrome, rectal bleeding and rectal irritation Patient sedated: no Scope type: anoscope External exam performed: yes Negative external exam findings: no pilonidal sinus tract, no pilonidal cyst, no pilonidal tenderness, no perianal skin tags, no perirectal warts, no perianal maceration, no perianal induration, no perianal erythema and no external hemorrhoids Negative internal exam findings: no internal hemorrhoid, no intraluminal mass, no inflammation, no anal fissures, no anal fistulae, no anal stricture and no abscess Procedure termination: procedure complete Patient tolerance: patient tolerated the procedure well with no immediate complications [facility] CBC WITH AUTO DIFFERENTIALon 01-29-2020 Basophils (Bld) [#/Vol] 0.01 10*3/uL [facility] Basophils/100 WBC (Bld) 0.1 % [facility] Eosinophils (Bld) [#/Vol] 0.07 10*3/uL [facility] Eosinophils/100 WBC (Bld) 0.9 % [facility] Erythrocyte distribution width (RBC) [Entitic vol] 12.6 % 11.6 - 14.8 % [facility] Hematocrit (Bld) [Volume fraction] 37.6 % 36 - 46 % [facility] Hemoglobin (Bld) [Mass/Vol] 12.1 g/dL 12 - 16 g/dL [facility] Immature granulocytes (Bld) [#/Vol] 0.02 10*3/uL [facility] Immature granulocytes/100 WBC (Bld) 0.30 % [facility] Comment on above: The IG parameter is the percentage of metamyelocytes, myelocytes and promyelocytes. An immature granulocyte count (IG) of 1% or more suggests the possibility of infection, an IG count of 3% is very likely related to an infection. Lymphocytes (Bld) [#/Vol] 1.53 10*3/uL [facility] Lymphocytes/100 WBC (Bld) 19.7 % [facility] MCH (RBC) [Entitic mass] 27.3 pg 26 - 34 pg [facility] MCHC (RBC) [Mass/Vol] 32.2 g/dL 31 - 37 g/dL [facility] MCV (RBC) [Entitic vol] 84.7 fL 80 - 100 fL [facility] Monocytes (Bld) [#/Vol] 0.53 10*3/uL [facility] Monocytes/100 WBC (Bld) 6.8 % [facility] Neutrophils (Bld) [#/Vol] 5.59 10*3/uL [facility] Neutrophils/100 WBC (Bld) 72.2 % [facility] Nucleated RBC (Bld) [#/Vol] 0.00 10*3/uL [facility] Nucleated RBC/100 WBC (Bld) [Ratio] 0.0 % [facility] Platelet mean volume (Bld) [Entitic vol] 10.1 fL 9.4 - 12.4 fL [facility] Platelets (Bld) [#/Vol] 205 10*3/uL [facility] RBC (Bld) [#/Vol] 4.44 10*6/uL [facility] WBC (Bld) [#/Vol] 7.75 10*3/uL [facility] Chem 7on 01-29-2020 Anion gap [Moles/Vol] 14 mmol/L 10 - 20 mmol/L [facility] Chloride [Moles/Vol] 104 mmol/L 98 - 10 8 mmol/L [facility] Creatinine [Mass/Vol] 0.72 mg/dL 0.40 - 1.10 [facility] GFR/1.73 sq M predicted among non-blacks MDRD (S/P/Bld) [Vol rate/Area] The eGFR should be used for monitoring renal function only and not for medication dosing. [facility] GFR/1.73 sq M.predicted CKD-EPI (S/P/Bld) [Vol rate/Area] 114 >=60 mL/min/1.73 m2 [facility] Glucose [Mass/Vol] 113 mg/dL High 65 - 99 mg/dL [facility] HCO3 [Moles/Vol] 26 mmol/L 21 - 32 mmol/L [facility] Interpretation and review of laboratory results Abnormal [facility] Potassium [Moles/Vol] 3.8 mmol/L 3.5 - 5.1 mmol/L [facility] Sodium [Moles/Vol] 140 mmol/L 135 - 145 mmol/L [facility] Urea nitrogen [Mass/Vol] 14 mg/dL 8 - 25 mg/dL [facility] Urea nitrogen/Creatinine [Mass ratio] 19.4 mg/mg [facility] [facility] Hepatic Function Panel (LFT) on 01-29-2020 Albumin [Mass/Vol] 4.7 g/dL 3.2 - 5.2 g/dL [facility] ALP [Catalytic activity/Vol] 48 U/L 40 - 140 U/L [facility] ALT [Catalytic activity/Vol] 17 U/L 0 - 40 U/L [facility] AST [Catalytic activity/Vol] 17 U/L 0 - 45 U/L [facility] Bilirubin [Mass/Vol] mg/dL 0 - 1.3 mg/dL [facility] Bilirubin.conjugated [Mass/Vol] mg/dL 0 - 0.4 mg/dL [facility] Protein [Mass/Vol] 7.5 g/dL 6 - 8 g/dL [facility] alth Lipaseon 01-29-2020 Lipase [Catalytic activity/Vol] 36 U/L 15 - 65 U/L [facility] Otheron 01-29-2020 Extra Tube Hold for add-ons. [facility] Comment on above: Auto resulted. Interpretation and review of laboratory results Normal [facility] URINALYSISon 01-29-2020 Bacteria Auto Ql (U) None Seen None Seen /hpf [facility] Bilirubin Ql (U) Negative Negative [facility] th Clarity Refractometry automated (U) Clear Clear [facility] Color (U) Yellow Colorless, Yellow [facility] Epithelial cells.squamous Auto (Urine sed) [#/Area] 2 [facility] Glucose Auto test strip (U) [Mass/Vol] Negative Negative mg/dL [facility] Hemoglobin Auto test strip Ql (U) Moderate Abnormal Negative [facility] Interpretation and review of laboratory results Abnormal [facility] Ketones (U) [Mass/Vol] Negative Negative mg/dL [facility] Leukocyte esterase Auto test strip Ql (U) Negative Negative [facility] Mucus Auto (Urine sed) [#/Area] Rare None Seen, Rare /lpf [facility] Nitrite Auto test strip Ql (U) Negative Negative [facility] pH (U) 5.0 [pH] [facility] Protein (U) [Mass/Vol] Negative Negative mg/dL [facility] RBC Auto (Urine sed) [#/Area] 4 High [facility] Specific gravity (U) [Rel density] 1.024 [facility] Urobilinogen (U) [Mass/Vol] <2.0 <2.0 mg/dL [facility] WBC Auto (Urine sed) [#/Area] 2 [facility] Microscopic examinat ion is performed on all urinalysis samples and only positive findings are reported. The test for blood on the chemical analytic portion of urinalysis may also be positive due to hemoglobinuria and myoglobinuria and if red blood cells are present they are quantified by microscopic examination. [facility] Urine Pregnancyon 01-29-2020 HCG ( test) Ql (U) Negative Negative [facility] Interpretation and review of laboratory results Normal [facility] XR ABDOMEN 1 VIEWon 01-29-20 Negative study. No change. Workstation ID: [id number] [facility] Interface, Rad In Marc Augusteq - 01/29/2020 2:16 AM EST EXAMINATION: XR ABDOMEN /KUB/FLAT PLATE/1 VIEW HISTORY: constipation / abd pain COMPARISON: KUB, 6 days ago FINDINGS: There is air and stool seen scattered throughout the colon. There is no evidence for free or air-fluid levels present. The osseous structures appear unremarkable. There are no abnormal calcifications seen overlying the region of the kidneys or gallbladder. No significant stool burden. IMPRESSION: Negative study. No change. Workstation ID: [id number] [facility] EXAMINATION: XR ABDO MEN /KUB/FLAT PLATE/1 VIEW HISTORY: constipation / abd pain COMPARISON: KUB, 6 days ago FINDINGS: There is air and stool seen scattered throughout the colon. There is no evidence for free or air-fluid levels present. The osseous structures appear unremarkable. There are no abnormal calcifications seen overlying the region of the kidneys or gallbladder. No significant stool burden. [facility] CBC WITH AUTO DIFFERENTIALon 01-23-2020 Basophils (Bld) [#/Vol] 0.02 10*3/uL [facility] Basophils/100 WBC (Bld) 0.4 % [facility] Eosinophils (Bld) [#/Vol] 0.05 10*3/uL [facility] Eosinophils/100 WBC (Bld) 1.1 % [facility] Erythrocyte distribution width (RBC) [Entitic vol] 12.7 % 11.6 - 14.8 % [facility] Hematocrit (Bld) [Volume fraction] 40.9 % 36 - 46 % [facility] Hemoglobin (Bld) [Mass/Vol] 13.2 g/dL 12 - 16 g/dL [facility] Immature granulocytes (Bld) [#/Vol] 0.02 10*3/uL [facility] Immature granulocytes/100 WBC (Bld) 0.40 % [facility] Comment on above: The IG parameter is the percentage of metamyelocytes, myelocytes and promyelocytes. An immature granulocyte count (IG) of 1% or more suggests the possibility of infection, an IG count of 3% is very likely related to an infection. Lymphocytes (Bld) [#/Vol] 0.95 10*3/uL [facility] Lymphocytes/100 WBC (Bld) 20.0 % [facility] MCH (RBC) [Entitic mass] 27.1 pg 26 - 34 pg [facility] MCHC (RBC) [Mass/Vol] 32.3 g/dL 31 - 37 g/dL [facility] MCV (RBC) [Entitic vol] 84.0 fL 80 - 100 fL [facility] Monocytes (Bld) [#/Vol] 0.43 10*3/uL [facility] Monocytes/100 WBC (Bld) 9.0 % [facility] Neutrophils (Bld) [#/Vol] 3.29 10*3/uL [facility] Neutrophils/100 WBC (Bld) 69.1 % [facility] Nucleated RBC (Bld) [#/Vol] 0.00 10*3/uL [facility] Nucleated RBC/100 WBC (Bld) [Ratio] 0.0 % [facility] Platelet mean volume (Bld) [Entitic vol] 9.6 fL 9.4 - 12.4 fL [facility] Platelets (Bld) [#/Vol] 199 10*3/uL [facility] RBC (Bld) [#/Vol] 4.87 10*6/uL [facility] eah WBC (Bld) [#/Vol] 4.76 10*3/uL [facility] 7on 01-23-2020 Anion gap [Moles/Vol] 14 mmol/L 10 - 20 mmol/L [facility] Chloride [Moles/Vol] 102 mmol/L 98 - 10 8 mmol/L [facility] Creatinine [Mass/Vol] 0.61 mg/dL 0.40 - 1.10 [facility] GFR/1.73 sq M predicted among non-blacks MDRD (S/P/Bld) [Vol rate/Area] The eGFR should be used for monitoring renal function only and not for medication dosing. [facility] GFR/1.73 sq M.predicted CKD-EPI (S/P/Bld) [Vol rate/Area] 123 >=60 mL/min/1.73 m2 [facility] Glucose [Mass/Vol] 101 mg/dL High 65 - 99 mg/dL [facility] HCO3 [Moles/Vol] 27 mmol/L 21 - 32 mmol/L [facility] Interpretation and review of laboratory results Abnormal [facility] Potassium [Moles/Vol] 4.1 mmol/L 3.5 - 5.1 mmol/L [facility] Sodium [Moles/Vol] 139 mmol/L 135 - 145 mmol/L [facility] Urea nitrogen [Mass/Vol] 14 mg/dL 8 - 25 mg/dL [facility] Urea nitrogen/Creatinine [Mass ratio] 23.0 mg/mg High [facility] Otheron 01-23-2020 Extra Tube Hold for add-ons. [facility] Comment on above: Auto resulted. URINALYSISon 01-23-2020 Bacteria Auto Ql (U) None Seen None Seen /hpf [facility] Bilirubin Ql (U) Negative Negative [facility] th Clarity Refractometry automated (U) Hazy Abnormal Clear [facility] Color (U) Yellow Colorless, Yellow [facility] Crystals.amorphous Computer assisted (U) [#/Area] Few Abnormal None Seen, Rare /hpf [facility] Epithelial cells.squamous Auto (Urine sed) [#/Area] 2 [facility] Glucose Auto test strip (U) [Mass/Vol] Negative Negative mg/dL [facility] Hemoglobin Auto test strip Ql (U) Negative Negative [facility] Interpretation and review of laboratory results Abnormal [facility] Ketones (U) [Mass/Vol] Negative Negative mg/dL [facility] Leukocyte esterase Auto test strip Ql (U) Negative Negative [facility] Mucus Auto (Urine sed) [#/Area] Rare None Seen, Rare /lpf [facility] Nitrite Auto test strip Ql (U) Negative Negative [facility] pH (U) 7.0 [pH] [facility] Protein (U) [Mass/Vol] Negative Negative mg/dL [facility] RBC Auto (Urine sed) [#/Area] 6 High [facility] Specific gravity (U) [Rel density] 1.020 [facility] Urobilinogen (U) [Mass/Vol] <2.0 <2.0 mg/dL [facility] WBC Auto (Urine sed) [#/Area] 1 [facility] Microscopic examinat ion is performed on all urinalysis samples and only positive findings are reported. The test for blood on the chemical analytic portion of urinalysis may also be positive due to hemoglobinuria and myoglobinuria and if red blood cells are present they are quantified by microscopic examination. [facility] XR ABDOMEN 1 VIEWon 01-23-20 EXAMINATION: XR ABDO MEN /KUB/FLAT PLATE/1 VIEW HISTORY: constipation Injury/Trauma or Illness?:Illness/Other How long have you had these symptoms (acute/chronic)?:Acute Reason for exam?:constipation History of cancer?:no Surgeries, chemotherapy, or radiation?:unk COMPARISON: November 03, 2019 TECHNIQUE: AP radiograph of the abdomen was obtained. FINDINGS: Stool burden in the colon within normal limits. No free air. Unremarkable small bowel gas pattern. Osseous structures grossly unremarkable. No pathologic calcification. [facility] No acute findings. Stool burden within normal limits. Workstation ID: [id number] [facility] Interface, Rad In ji Speechq - 01/23/2020 12:50 AM EST EXAMINATION: XR ABDOMEN /KUB/FLAT PLATE/1 VIEW HISTORY: constipation Injury/Trauma or Illness?:Illness/Other How long have you had these symptoms (acute/chronic)?:Acute Reason for exam?:constipation History of cancer?:no Surgeries, chemotherapy, or radiation?:unk COMPARISON: November 03, 2019 TECHNIQUE: AP radiograph of the abdomen was obtained. FINDINGS: Stool burden in the colon within normal limits. No free air. Unremarkable small bowel gas pattern. Osseous structures grossly unremarkable. No pathologic calcification. IMPRESSION: No acute findings. Stool burden within normal limits. Workstation ID: [id number] [facility] Coronavirus (COVID-19/SARS-C oV-2) RAPIDon 01-21-2020 Employed in healthcare No [facility] Comment on above: Performed By: #### 9 4532-9x2 ####[facility] [address] [place] [address] First test Unknown [facility] Comment on above: Performed By: #### 9 4532-9x2 ####[facility] [address] [place] [address] ICU No [facility] Comment on above: Performed By: #### 9 4532-9x2 ####[facility] [address] [place] [address] Illness or injury onset date and time UNKNOWN [facility] Comment on above: Performed By: #### 9 4532-9x2 ####[facility] [address] [place], [place] [address] Patient was hospitalized because of this condition No [facility] Comment on above: Performed By: #### 9 4532-9x2 ####[facility] [address] [place], [place] [address] status NotPreg Normal [facility] Comment on above: Performed By: #### 9 4532-9x2 ####[facility] [address] [place] [address] Resides in congregate care setting No Normal [facility] Comment on above: Performed By: #### 9 4532-9x2 ####[facility] [address] [place] [id number] SARS-CoV-2 (COVID-19) RNA MARY+probe Ql (Resp) Not detected Normal NOTDET [facility] Comment on above: Result Comment: This test was performed via the [employer] NOW COVID-19 assay and has beenauthorized by FDA under an Emergency Use Authorization (EUA). The assay isvalidated for nasopharyngeal (FINANCE LEAD), nasal, and oropharyngeal (OP) directswabs. The limit of detection of the assay is approximately 125 genomeequivalence/mL; however, detection of SARS-CoV-2 may be affected by thesample collection and transport methods, patient factors (e.g., presence ofsymptoms, and/or stage of infection), and a negative result does not ruleout the possibility of infection. For updated information, refer to theCenter for Disease Control website:www.cdc.gov/coronavirus. Performed By: #### 9 4532-9x2 ####[address] [address] Symptomatic as defined by CDC Yes [facility] Comment on above: Performed By: #### 9 4532-9x2 ####[address] [address] ED Pat Eduon 01-21-2020 ED Pat Edu [facility] Basic metabolic 2000 panelon 01-20-2020 Anion gap [Moles/Vol] 11.0 mmol/L Normal 6.0-18.0 [facility] Comment on above: Performed By: #### 3 040-3, 41606-6u7, 09946-1, 57504-0, 32711- 9, 11640-8, 40878-2 ####[facility], [address] [place], [place]. Calcium [Mass/Vol] 9.2 mg/dL Normal 8.9-10.3 [facility] Comment on above: Performed By: #### 3 040-3, 32973-5k8, 33346-1, 60584-1, 20623- 9, 84497-1, 74038-0 ####[facility], [address] [place], [place]. Chloride [Moles/Vol] 103 mmol/L Normal 98-107 [facility] Comment on above: Performed By: #### 3 040-3, 45173-0p1, 15941-8, 00277-2, 77457- 9, 66231-1, 98844-6 ####[facility], [address], [place]. CO2 [Moles/Vol] 25 mmol/L Normal 22-32 [facility] Comment on above: Performed By: #### 3 040-3, 14617-2k9, 89112-1, 91845-2, 39306- 9, 06699-5, 04622-2 ####[facility], [address], [place]. Creatinine [Mass/Vol] 0.77 mg/dL Normal 0.66-1.30 [facility] Comment on above: Performed By: #### 3 040-3, 58618-5r1, 28289-4, 60861-8, 24461- 9, 21756-1, 07421-8 ####[facility], [address], [place]. Glucose [Mass/Vol] 113 mg/dL High 70-99 [facility] Comment on above: Result Comment: U pdated ADA Reference RangeA normal fasting glucose concentration is less than 100 mg/dL.An impaired fasting glucose concentration is 100-125 mg/dL. Aprovisional diagnosis of diabetes mellitus can be made when afasting glucose concentration is greater than 125 mg/dL. Performed By: #### 3 040-3, 36853-9p7, 39412-6, 21124-9, 32493-7, 50954-6, 09920-2 ####[facility], [address] [place] Potassium [Moles/Vol] 3.9 mmol/L Normal 3.6-5.1 [facility] Comment on above: Performed By: #### 3 040-3, 45549-9a5, 78735-0, 07858-3, 12788- 9, 13638-7, 87993-2 ####[facility], [address] [place] Sodium [Moles/Vol] 139 mmol/L Normal 136-145 [facility] Comment on above: Performed By: #### 3 040-3, 26073-6y7, 73180-8, 97528-2, 83585- 9, 35119-7, 81792-6 ####[facility], [address] [place]. Urea nitrogen (BldV) [Mass/Vol] 14 mg/dL Normal 8-20 [facility] Comment on above: Performed By: #### 3 040-3, 92187-0s2, 68259-0, 16400-7, 78701- 9, 69425-0, 11612-7 ####[facility], [address] [place]. GFR/1.73 sq M.predicted (S/P /Bld) [Vol rate/Area]on 01-20-2020 GFR/1.73 sq M.predicted among blacks MDRD (S/P/Bld) [Vol rate/Area] mL/min/{1.73_m2} Normal [facility] Comment on above: Result Comment: The MDRD equation has not been validated for those over 70 years, women, patients with serious co-morbid conditions, or with extremes of bodysize, muscle mass of nutritional status. Performed By: #### 3 040-3, 90839-1l0, 73739-8, 23961-6, 97376-0, 09575-6, 28170-4 ####[facility], [address] [place], [place]. GFRbbon 01-20-2020 GFR/1.73 sq M.predicted among non-blacks MDRD (S/P/Bld) [Vol rate/Area] mL/min/{1.73_m2} Normal [facility] Comment on above: Performed By: #### 3 040-3, 66048-9r1, 28349-2, 41939-2, 02957- 9, 79682-6, 79187-6 ####[facility], [address], [place]. Hemogram and platelets WO di fferential panel (Bld)on 01-20-2020 Erythrocyte distribution width (RBC) [Entitic vol] 13.0 % Normal 11.0-14.8 [facility] Comment on above: Performed By: #### 2 4317-0 ####[facility], [address] [facility] [place] [place]. Hematocrit (Bld) [Volume fraction] 35.3 % Normal 35.0-45.0 [facility] Comment on above: Performed By: #### 2 4317-0 ####[facility], [address], [place]. Hemoglobin (Bld) [Mass/Vol] 12.5 g/dL Normal 12.0-16.0 [facility] Comment on above: Performed By: #### 2 4317-0 ####[facility], [address], [place]. MCH (RBC) [Entitic mass] 28.8 Picograms Normal 27.0-34.0 [facility] Comment on above: Performed By: #### 2 4317-0 ####[facility], [address], [place]. MCHC (RBC) [Mass/Vol] 35.4 g/dL Normal 32.0-36.0 [facility] Comment on above: Performed By: #### 2 4317-0 ####[facility], [address] [place], [place]. MCV (RBC) [Entitic vol] 81.3 fL Normal 80.0-97.0 [facility] Comment on above: Performed By: #### 2 4317-0 ####[facility], [address] [place], [place]. Platelet mean volume (Bld) [Entitic vol] 7.7 fL Normal 6.2-12.1 [facility] Comment on above: Performed By: #### 2 7-0 ####[facility], [address] [place], [place]. Platelets (Bld) [#/Vol] 196 thou/mcL Normal 142-424 [facility] Comment on above: Performed By: #### 2 7-0 ####[facility], [address] [place], [place]. RBC (Bld) [#/Vol] 4.34 million/mcL Normal 3.80-5.10 [facility] Comment on above: Performed By: #### 2 7-0 ####[facility], [address] [place], [place]. WBC (Bld) [#/Vol] 5.2 thou/mcL Normal 4.6-10.2 [facility] Comment on above: Performed By: #### 2 4317-0 ####[facility], [address] [place], [place]. Hepatic function 2000 panelo n 01-20-2020 Albumin [Mass/Vol] 4.0 g/dL Normal 3.5-4.8 [facility] Comment on above: Performed By: #### 3 040-3, 06589-0a1, 66674-1, 40992-8, 21009- 9, 13179-5, 22169-1 ####[facility], [address] [place], [place]. ALP [Catalytic activity/Vol] 45 Units/L Normal 32-91 [facility] Comment on above: Performed By: #### 3 040-3, 89582-0c1, 07184-2, 56770-9, 49095- 9, 82859-5, 00049-0 ####ANTHONY CROWLEY [facility], [address] [place], [place]. ALT [Catalytic activity/Vol] 18 Units/L Normal 14-63 [facility] Comment on above: Result Comment: Garcia bland note: Change in reference range for ALT occurred on 01/17/20 at [facility], [facility], and [facility]. Performed By: #### 3 040-3, 51897-8q8, 48788-8, 64397-4, 30356-3, 11136-6, 38130-1 ####ANTHONY [facility], [address] [place], [place]. AST [Catalytic activity/Vol] 20 Units/L Normal 15-41 [facility] Comment on above: Performed By: #### 3 040-3, 83182-8m7, 05780-2, 15806-6, 00393- 9, 34721-4, 34699-6 ####ANTHONY CROWLEY [facility], [address] [place], [place]. Bilirubin [Mass/Vol] 0.6 mg/dL Normal 0.3-1.2 [facility] Comment on above: Performed By: #### 3 040-3, 14601-6t1, 57280-0, 07966-4, 99192- 9, 97153-9, 36189-6 ####ANTHONY [facility], [address] [place], [place]. Bilirubin.direct [Mass/Vol] 0.1 mg/dL Normal 0.1-0.5 [facility] Comment on above: Performed By: #### 3 040-3, 01974-4u8, 47955-5, 85239-9, 00720- 9, 26799-3, 04208-7 ####[facility], [address] [place], [place]. Bilirubin.indirect [Mass/Vol] 0.5 mg/dL Normal 0.0-1.0 [facility] Comment on above: Performed By: #### 3 040-3, 06197-9y8, 50174-4, 89116-3, 65863- 9, 25705-5, 63110-5 ####[facility], [address] [place] Protein [Mass/Vol] 7.1 g/dL Normal 6.1-7.9 [facility] Comment on above: Performed By: #### 3 040-3, 35786-3l7, 89396-8, 05015-2, 91085- 9, 37594-0, 43316-4 ####[facility], [address] [place] Lipaseon 01-20-2020 Lipase [Catalytic activity/Vol] 31 Units/L Normal 22-51 [facility] Comment on above: Result Comment: Garcia bland note: Change in reference range for LIP occurred on 01/17/20 at [facility], [facility], and [facility]. Performed By: #### 3 040-3, 72138-4s9, 67040-0, 38302-5, 38996-8, 00195-2, 85910-1 ####[facility], [address] [place] Magnesium Levelon 01-20-2020 Magnesium [Mass/Vol] 2.0 mg/dL Normal 1.8-2.5 [facility] Comment on above: Performed By: #### 3 040-3, 49838-5y1, 10114-1, 21423-8, 86181- 9, 55710-8, 43761-9 ####[facility], [address] [place], [place]. Microscopic method Nom (U)on 01-20-2020 Bacteria LM.HPF (Urine sed) [#/Area] RARE Abnormal NONE/HPF [facility] Comment on above: Performed By: #### 5 20-0, 49467-8 ####ANTHONY [facility], [address] [place], [place]. Epithelial cells.squamous LM.HPF (Urine sed) [#/Area] MANY Abnormal FEW/LPF [facility] Comment on above: Performed By: #### 5 20-0, 52345-0 ####[facility], [address], [place]. Mucus Ql (Urine sed) RARE Abnormal NONE/LPF [facility] Comment on above: Performed By: #### 5 20-0, 78204-1 ####NHEDE [facility], [address], [place]. RBC LM.HPF (Urine sed) [#/Area] 3 /[HPF] Normal 0-5 [facility] Comment on above: Performed By: #### 5 20-0, 25082-3 ####[facility], [address] [place] [address]. WBC LM.HPF (Urine sed) [#/Area] 1 /[HPF] Normal 0-5 [facility] Comment on above: Performed By: #### 5 7020-0, 04511-6 ####[facility], [address] [place] [address]. Pre-Arrival Formon 0 Pre-Arrival Form Normal [facility] Troponin Ion 01-20-2020 Troponin I.cardiac [Mass/Vol] ng/mL Normal <0.06 [facility] Comment on above: Performed By: #### 3 040-3, 20662-1v5, 20533-6, 63831-9, 53586- 9, 87484-2, 06987-9 ####[facility], [address], [place]. Urinalysis dipstick W Reflex Microscopic panel (U)on 01-20-2020 Appearance (U) HAZY Abnormal CLEAR [facility] Comment on above: Performed By: #### 5 20-0, 92812-2 ####[facility], [address] [facility] [place] Bilirubin (U) [Mass/Vol] Negative Normal NEGATIVE-NEGAT MCKENZIE [facility] Comment on above: Performed By: #### 5 20-0, 53848-3 ####[facility], [address] Color (U) YELLOW Normal YELLOW [facility] Comment on above: Performed By: #### 5 20-0, 80122-3 ####[facility], [address] [facility] [place]. Glucose Test strip (U) [Mass/Vol] NORMAL Normal NORMAL [facility] Comment on above: Performed By: #### 5 20-0, 86263-8 ####[facility], [address] [facility] Hemoglobin Ql (U) 10/UL Abnormal NEGATIVE-N EGAT MCKENZ[address] [facility] Comment on above: Performed By: #### 5 20-0, 43800-4 ####[facility], [address] [facility] Ketones (U) [Mass/Vol] Negative Normal NEGATIVE-NEGAT MCKENZIE [facility] Comment on above: Performed By: #### 5 20-0, 30535-9 ####[facility], [address] [facility]. Leukocyte esterase Test strip Ql (U) Negative Normal NEGATIVE-NEGAT MCKENZIE [facility] Comment on above: Performed By: #### 5 20-0, 90438-4 ####[facility], [address] [facility] Nitrite Test strip (U) [Mass/Vol] Negative Normal NEGATIVE-NEGAT MCKENZIE [facility] Comment on above: Performed By: #### 5 7020-0, 68853-4 ####[facility], [address] [facility] [place], [place]. pH (U) 6.0 [pH] Normal 5.0-9.0 [facility] Comment on above: Performed By: #### 5 7020-0, 08820-6 ####[facility], [address] [place], [place]. Protein (U) [Mass/Vol] Negative Normal NEGATIVE-NEGAT MCKENZIE [facility] Comment on above: Performed By: #### 5 7020-0, 54651-3 ####[facility], [address] [place], [place]. Specific gravity (U) [Rel density] 1.024 Normal 1.005-1.035 [facility] Comment on above: Performed By: #### 5 7020-0, 89263-2 ####[facility], [address] [facility] Urobilinogen (U) [Mass/Vol] NORMAL Normal NORMAL [facility] Comment on above: Performed By: #### 5 7020-0, 26534-1 ####[facility], [address]. XR Chest 1 Viewon 01-20-2020 XR Chest Single view Normal Moun [facility] ED Pat Eduon 01-17-[address] [facility] Basic metabolic 2000 panelon 01-16-2020 Anion gap [Moles/Vol] 13.0 mmol/L Normal 6.0-18.0 [facility] Comment on above: Performed By: #### 2 4321-2, 98531-2o0, 67495-1 ####[facility], [address] [facility] Calcium [Mass/Vol] 9.9 mg/dL Normal 8.9-10.3 [facility] Comment on above: Performed By: #### 2 4321-2, 28217-9z9, 01328-2 ####[facility], [address] [place], [place]. Chloride [Moles/Vol] 102 mmol/L Normal 98-107 [facility] Comment on above: Performed By: #### 2 4321-2, 92246-7n8, 58864-1 ####[facility], [address], [place]. CO2 [Moles/Vol] 26 mmol/L Normal 22-32 [facility] Comment on above: Performed By: #### 2 1-2, 85640-0c6, 09485-9 ####[facility], [address]. Creatinine [Mass/Vol] 0.77 mg/dL Normal 0.66-1.30 [facility] Comment on above: Performed By: #### 2 4320-2, 79229-3z9, 88012-3 ####[facility], [address], [place]. Glucose [Mass/Vol] 98 mg/dL Normal 70-99 [facility] Comment on above: Result Comment: U pdated ADA Reference RangeA normal fasting glucose concentration is less than 100 mg/dL.An impaired fasting glucose concentration is 100-125 mg/dL. Aprovisional diagnosis of diabetes mellitus can be made when afasting glucose concentration is greater than 125 mg/dL. Performed By: #### 2 1-2, 23897-3v0, 54522-4 ####[facility], [address], [place]. Potassium [Moles/Vol] 4.0 mmol/L Normal 3.6-5.1 [facility] Comment on above: Performed By: #### 2 4321-2, 69730-9c0, 08007-5 ####[facility], [address], [place]. Sodium [Moles/Vol] 141 mmol/L Normal 136-145 [facility] Comment on above: Performed By: #### 2 4321-2, 20064-5m5, 45464-8 ####[facility], [address] [place], [place]. Urea nitrogen (BldV) [Mass/Vol] 12 mg/dL Normal 8-20 [facility] Comment on above: Performed By: #### 2 4321-2, 04787-1f3, 74051-9 ####[facility], [address] [place], [place]. CBC W Auto Differential pane l (Bld)on 01-16-2020 Basophils (Bld) [#/Vol] 0.00 thou/mcL Normal 0.00-0.20 [facility] Comment on above: Performed By: #### 5 7021-8 ####[facility], [address] [facility] [place], [place]. Basophils/100 WBC (Bld) 0.6 % Normal 0.0-2.0 [facility] Comment on above: Performed By: #### 5 7021-8 ####[facility], [address] [facility]. Eosinophils (Bld) [#/Vol] 0.10 thou/mcL Normal 0.00-0.70 [facility] Comment on above: Performed By: #### 5 7021-8 ####[facility], [address] Eosinophils/100 WBC (Bld) 1.5 % Normal 0.0-7.0 [facility] Comment on above: Performed By: #### 5 7021-8 ####[facility], [address]. Erythrocyte distribution width (RBC) [Entitic vol] 13.0 % Normal 11.0-14.8 [facility] Comment on above: Performed By: #### 5 7021-8 ####[facility], [address]. Hematocrit (Bld) [Volume fraction] 40.6 % Normal 35.0-45.0 [facility] Comment on above: Performed By: #### 5 7021-8 ####[facility], [address]. Hemoglobin (Bld) [Mass/Vol] 13.6 g/dL Normal 12.0-16.0 [facility] Comment on above: Performed By: #### 70-8 ####[facility], [address]. Lymphocytes (Bld) [#/Vol] 1.50 thou/mcL Normal 1.00-4.80 [facility] Comment on above: Performed By: #### 70-8 ####[facility], [facility]. Lymphocytes/100 WBC (Bld) 20.8 % Low 22.0-44.0 [facility] Comment on above: Performed By: #### 70-8 ####[facility], [facility] [address] [facility] [facility] [address], [place]. MCH (RBC) [Entitic mass] 28.0 Picograms Normal 27.0-34.0 [facility] Comment on above: Performed By: #### 7021-8 ####[facility], [address] [place], [place]. MCHC (RBC) [Mass/Vol] 33.5 g/dL Normal 32.0-36.0 [facility] Comment on above: Performed By: #### 70-8 ####[facility], [address], [place]. MCV (RBC) [Entitic vol] 83.7 fL Normal 80.0-97.0 [facility] Comment on above: Performed By: #### 70-8 ####[facility], [address], [place]. Monocytes (Bld) [#/Vol] 0.50 thou/mcL Normal 0.00-0.90 [facility] Comment on above: Performed By: #### 5 7021-8 ####[facility], [address] [place], [place]. Monocytes/100 WBC (Bld) 6.5 % Normal 0.0-12.0 [facility] Comment on above: Performed By: #### 70-8 ####[facility], [address], [place]. Neutrophils (Bld) [#/Vol] 5.00 thou/mcL Normal 1.80-7.70 [facility] Comment on above: Performed By: #### 70-8 ####[facility], [facility] [address] [place], [place]. Neutrophils/100 WBC (Bld) 70.6 % High 40.0-70.0 [facility] Comment on above: Performed By: #### 70-8 ####[facility], [address] [place], [place]. Platelet mean volume (Bld) [Entitic vol] 7.5 fL Normal 6.2-12.1 [facility] Comment on above: Performed By: #### 7021-8 ####[facility], [address] [place], [place]. Platelets (Bld) [#/Vol] 255 thou/mcL Normal 142-424 [facility] Comment on above: Performed By: #### 7021-8 ####[facility], [address] [place], [place]. RBC (Bld) [#/Vol] 4.86 million/mcL Normal 3.80-5.10 [facility] Comment on above: Performed By: #### 70-8 ####[facility], [address] [place], [place]. WBC (Bld) [#/Vol] 7.0 thou/mcL Normal 4.6-10.2 [facility] Comment on above: Performed By: #### 5 7021-8 ####[facility], [address] [place] [address]. GFR/1.73 sq M.predicted (S/P /Bld) [Vol rate/Area]on 01-16-2020 GFR/1.73 sq M.predicted among blacks MDRD (S/P/Bld) [Vol rate/Area] mL/min/{1.73_m2} Normal [facility] Comment on above: Result Comment: The MDRD equation has not been validated for those over 70 years, women, patients with serious co-morbid conditions, or with extremes of bodysize, muscle mass of nutritional status. Performed By: #### 2 4321-2, 02076-6t3, 83699-1 ####[facility], [address] [place] [address]. GFRbbon 01-16-2020 GFR/1.73 sq M.predicted among non-blacks MDRD (S/P/Bld) [Vol rate/Area] mL/min/{1.73_m2} Normal [facility] Comment on above: Performed By: #### 2 4321-2, 89339-6w1, 08632-9 ####[facility], [address] [place] [address]. Microscopic method Nom (U)on 01-16-2020 Bacteria LM.HPF (Urine sed) [#/Area] RARE Abnormal NONE/HPF [facility] Comment on above: Performed By: #### 5 7020-0, 74096-4 ####[facility], [address] [place] [address]. Epithelial cells.squamous LM.HPF (Urine sed) [#/Area] MANY Abnormal FEW/LPF [facility] Comment on above: Performed By: #### 5 7019-0, 36122-6 ####[facility], [address] [facility]. Mucus Ql (Urine sed) RARE Abnormal NONE/LPF Moun [facility] Comment on above: Performed By: #### 5 7019-0, 50928-0 ####[facility], [address] [facility] RBC LM.HPF (Urine sed) [#/Area] 3 /[HPF] Normal 0-5 [facility] Comment on above: Performed By: #### 5 7019-0, 77901-3 ####[facility], [address] [facility] [place] WBC LM.HPF (Urine sed) [#/Area] 1 /[HPF] Normal 0-5 [facility] Comment on above: Performed By: #### 5 7019-0, 73090-4 ####[facility], [address] [place], [place] [address], [place]. Urinalysis dipstick W Reflex Microscopic panel (U)on 01-16-2020 Appearance (U) HAZY Abnormal CLEAR [facility] Comment on above: Performed By: #### 5 7019-0, 26987-1 ####[facility], [facility] [place]. Bilirubin (U) [Mass/Vol] Negative Normal NEGATIVE-NEGAT MCKENZIE [facility] Comment on above: Performed By: #### 5 7019-0, 68841-7 ####[facility], [address] [facility] [place] Color (U) YELLOW Normal YELLOW [facility] Comment on above: Performed By: #### 5 7019-0, 30012-6 ####[facility], [address]. Glucose Test strip (U) [Mass/Vol] NORMAL Normal NORMAL [facility] Comment on above: Performed By: #### 5 7020-0, 52269-6 ####[facility], [address] [place], [place]. Hemoglobin Ql (U) 10/UL Abnormal NEGATIVE-N EGAT MCKENZIE [facility] Comment on above: Performed By: #### 5 20-0, 48942-9 ####[facility], [address] [place], [place]. Ketones (U) [Mass/Vol] Negative Normal NEGATIVE-NEGAT MCKENZIE [facility] Comment on above: Performed By: #### 5 20-0, 65288-6 ####[facility], [address] [place] [address]. Leukocyte esterase Test strip Ql (U) Negative Normal NEGATIVE-NEGAT MCKENZIE [facility] Comment on above: Performed By: #### 5 7019-0, 04401-4 ####[facility], [address] [place] [address]. Nitrite Test strip (U) [Mass/Vol] Negative Normal NEGATIVE-NEGAT MCKENZIE [facility] Comment on above: Performed By: #### 5 7019-0, 77165-6 ####[facility], [address] [place], [place]. pH (U) 7.0 [pH] Normal 5.0-9.0 [facility] Comment on above: Performed By: #### 5 20-0, 76999-3 ####[facility], [address] [place], [place]. Protein (U) [Mass/Vol] 100 mg/dL Abnormal NEGATIVE-NEGAT MCKENZIE [facility] Comment on above: Performed By: #### 5 20-0, 39390-3 ####[facility], [address] [place], [place]. Specific gravity (U) [Rel density] 1.021 Normal 1.005-1.035 [facility] Comment on above: Performed By: #### 5 7020-0, 12151-8 ####[facility], [address] [place], [place]. Urobilinogen (U) [Mass/Vol] NORMAL Normal NORMAL [facility] Comment on above: Performed By: #### 5 7020-0, 92910-8 ####[facility], [address] [place], [place] CT KIDNEY STONEon 01-15-2020 Interface, Rad In Fu ji Speechq - 01/15/2020 12:41 AM EST EXAMINATION: CT KIDNEY STONE HISTORY: ORDERING SYSTEM PROVIDED HISTORY: Flank pain, kidney stone suspected; right flank pain, TECHNOLOGIST PROVIDED HISTORY: Illness/Other Reason for exam: Flank pain, kidney stone suspected; right flank pain Encounter Type: Initial Additional signs and symptoms: Flank pain, kidney stone suspected; right flank pain ORDERING SYSTEM PROVIDED DIAGNOSIS CODES: COMPARISON: CT kidney stone dated 11/28/2019 TECHNIQUE: Dose reduction techniques were achieved by using automated exposure control and/or adjustment of mA and/or kV according to patient size and/or use of iterative reconstruction technique. Multiple axial images of the kidneys, ureters and the urinary bladder obtained without the use of IV contrast material. Coronal and sagittal reformatted sequences are submitted for review. FINDINGS: The visualized liver and spleen, gallbladder, pancreas and adrenal glands appear unremarkable on this non IV contrast examination. Bilateral kidneys have an unremarkable noncontrast appearance. There is no evidence for hydronephrosis or nephrolithiasis bilaterally. No ureteral calculus is seen bilaterally. The urinary bladder appears unremarkable. The stomach and duodenum appear unremarkable. Nonobstructive bowel pattern is seen. Normal appearing appendix is visualized. Large volume of stool is seen in the right colon. No significant bowel wall thickening is seen. No significant free fluid or abnormal fluid collections are seen in the abdomen and pelvis. The vascular structures demonstrate normal caliber. The abdominal wall and visualized soft tissues appear unremarkable. The osseous structures appear unremarkable. IMPRESSION: No evidence for acute abnormality on this noncontrast examination. There is no evidence for hydronephrosis or nephroureterolithiasis bilaterally. Normal appearing appendix is seen. Large volume of stool seen in the ascending colon. Workstation ID: [id number] [facility] EXAMINATION: CT KIDN EY STONE HISTORY: ORDERING SYSTEM PROVIDED HISTORY: Flank pain, kidney stone suspected; right flank pain, TECHNOLOGIST PROVIDED HISTORY: Illness/Other Reason for exam: Flank pain, kidney stone suspected; right flank pain Encounter Type: Initial Additional signs and symptoms: Flank pain, kidney stone suspected; right flank pain ORDERING SYSTEM PROVIDED DIAGNOSIS CODES: COMPARISON: CT kidney stone dated 11/28/2019 TECHNIQUE: Dose reduction techniques were achieved by using automated exposure control and/or adjustment of mA and/or kV according to patient size and/or use of iterative reconstruction technique. Multiple axial images of the kidneys, ureters and the urinary bladder obtained without the use of IV contrast material. Coronal and sagittal reformatted sequences are submitted for review. FINDINGS: The visualized liver and spleen, gallbladder, pancreas and adrenal glands appear unremarkable on this non IV contrast examination. Bilateral kidneys have an unremarkable noncontrast appearance. There is no evidence for hydronephrosis or nephrolithiasis bilaterally. No ureteral calculus is seen bilaterally. The urinary bladder appears unremarkable. The stomach and duodenum appear unremarkable. Nonobstructive bowel pattern is seen. Normal appearing appendix is visualized. Large volume of stool is seen in the right colon. No significant bowel wall thickening is seen. No significant free fluid or abnormal fluid collections are seen in the abdomen and pelvis. The vascular structures demonstrate normal caliber. The abdominal wall and visualized soft tissues appear unremarkable. The osseous structures appear unremarkable. [facility] No evidence for acut e abnormality on this noncontrast examination. There is no evidence for hydronephrosis or nephroureterolithiasis bilaterally. Normal appearing appendix is seen. Large volume of stool seen in the ascending colon. Workstation ID: [id number] [facility] CBC WITH AUTO DIFFERENTIALon 01-14-2020 Basophils (Bld) [#/Vol] 0.04 10*3/uL [facility] Basophils/100 WBC (Bld) 0.7 % [facility] Eosinophils (Bld) [#/Vol] 0.12 10*3/uL [facility] Eosinophils/100 WBC (Bld) 2.1 % [facility] Erythrocyte distribution width (RBC) [Entitic vol] 12.7 % 11.6 - 14.8 % [facility] Hematocrit (Bld) [Volume fraction] 40.1 % 36 - 46 % [facility] Hemoglobin (Bld) [Mass/Vol] 12.9 g/dL 12 - 16 g/dL [facility] Immature granulocytes (Bld) [#/Vol] 0.01 10*3/uL [facility] Immature granulocytes/100 WBC (Bld) 0.20 % [facility] Comment on above: The IG parameter is the percentage of metamyelocytes, myelocytes and promyelocytes. An immature granulocyte count (IG) of 1% or more suggests the possibility of infection, an IG count of 3% is very likely related to an infection. Lymphocytes (Bld) [#/Vol] 1.83 10*3/uL [facility] Lymphocytes/100 WBC (Bld) 32.1 % [facility] MCH (RBC) [Entitic mass] 27.0 pg 26 - 34 pg [facility] MCHC (RBC) [Mass/Vol] 32.2 g/dL 31 - 37 g/dL [facility] MCV (RBC) [Entitic vol] 83.9 fL 80 - 100 fL [facility] Monocytes (Bld) [#/Vol] 0.48 10*3/uL [facility] Monocytes/100 WBC (Bld) 8.4 % [facility] Neutrophils (Bld) [#/Vol] 3.22 10*3/uL [facility] Neutrophils/100 WBC (Bld) 56.5 % [facility] Nucleated RBC (Bld) [#/Vol] 0.00 10*3/uL [facility] Nucleated RBC/100 WBC (Bld) [Ratio] 0.0 % [facility] Platelet mean volume (Bld) [Entitic vol] 9.4 fL 9.4 - 12.4 fL [facility] Platelets (Bld) [#/Vol] 263 10*3/uL [facility] RBC (Bld) [#/Vol] 4.78 10*6/uL [facility] WBC (Bld) [#/Vol] 5.70 10*3/uL [facility] Chem 7on 01-14-2020 Anion gap [Moles/Vol] 15 mmol/L 10 - 20 mmol/L [facility] Chloride [Moles/Vol] 102 mmol/L 98 - 10 8 mmol/L [facility] Creatinine [Mass/Vol] 0.78 mg/dL 0.40 - 1.10 [facility] GFR/1.73 sq M predicted among non-blacks MDRD (S/P/Bld) [Vol rate/Area] The eGFR should be used for monitoring renal function only and not for medication dosing. [facility] GFR/1.73 sq M.predicted CKD-EPI (S/P/Bld) [Vol rate/Area] 103 >=60 mL/min/1.73 m2 [facility] Glucose [Mass/Vol] 90 mg/dL 65 - 99 mg/dL [facility] HCO3 [Moles/Vol] 27 mmol/L 21 - 32 mmol/L [facility] Interpretation and review of laboratory results Normal [facility] Potassium [Moles/Vol] 4.1 mmol/L 3.5 - 5.1 mmol/L [facility] Sodium [Moles/Vol] 140 mmol/L 135 - 145 mmol/L [facility] Urea nitrogen [Mass/Vol] 14 mg/dL 8 - 25 mg/dL [facility] Urea nitrogen/Creatinine [Mass ratio] 17.9 mg/mg [facility] Hepatic Function Panel (LFT) on 01-14-2020 Albumin [Mass/Vol] 4.9 g/dL 3.2 - 5.2 g/dL [facility] ALP [Catalytic activity/Vol] 52 U/L 40 - 140 U/L [facility] ALT [Catalytic activity/Vol] 17 U/L 0 - 40 U/L [facility] AST [Catalytic activity/Vol] 22 U/L 0 - 45 U/L [facility] Bilirubin [Mass/Vol] mg/dL 0 - 1.3 mg/dL [facility] Bilirubin.conjugated [Mass/Vol] mg/dL 0 - 0.4 mg/dL [facility] Interpretation and review of laboratory results Abnormal [facility] Protein [Mass/Vol] 8.1 g/dL High 6 - 8 g/dL [facility] alth Lipaseon 01-14-2020 Interpretation and review of laboratory results Normal [facility] Lipase [Catalytic activity/Vol] 41 U/L 15 - 65 U/L [facility] Otheron 01-14-2020 Extra Tube Hold for add-ons. [facility] Comment on above: Auto resulted. URINALYSISon 01-14-2020 Bacteria Auto Ql (U) Rare Abnormal None Seen /hpf [facility] Bilirubin Ql (U) Negative Negative [facility] Clarity Refractometry automated (U) Clear Clear [facility] Color (U) Yellow Colorless, Yellow [facility] Epithelial cells.squamous Auto (Urine sed) [#/Area] 5 High [facility] Glucose Auto test strip (U) [Mass/Vol] Negative Negative mg/dL [facility] Hemoglobin Auto test strip Ql (U) Negative Negative [facility] Interpretation and review of laboratory results Abnormal [facility] Ketones (U) [Mass/Vol] Negative Negative mg/dL [facility] Leukocyte esterase Auto test strip Ql (U) Negative Negative [facility] Mucus Auto (Urine sed) [#/Area] Rare None Seen, Rare /lpf [facility] Nitrite Auto test strip Ql (U) Negative Negative [facility] pH (U) 8.0 [pH] High [facility] Protein (U) [Mass/Vol] Negative Negative mg/dL [facility] RBC Auto (Urine sed) [#/Area] 3 [facility] Specific gravity (U) [Rel density] 1.019 [facility] Urobilinogen (U) [Mass/Vol] <2.0 <2.0 mg/dL [facility] WBC Auto (Urine sed) [#/Area] 2 [facility] Microscopic examinat ion is performed on all urinalysis samples and only positive findings are reported. The test for blood on the chemical analytic portion of urinalysis may also be positive due to hemoglobinuria and myoglobinuria and if red blood cells are present they are quantified by microscopic examination. [facility] Urine Pregnancyon 01-14-2020 HCG ( test) Ql (U) Negative Negative [facility] Interpretation and review of laboratory results Normal [facility] Culture Urine + Susceptibili tyon 01-07-2020 Bacteria identified Cx Nom (U) Normal [facility] Comment on above: Performed By: #### 6 30-4 ####[place] [id number], [place] ED Pat Eduon 01-07-[address] [facility] Microscopic method Nom (U)on 01-07-2020 Epithelial cells.squamous LM.HPF (Urine sed) [#/Area] MODERATE Abnormal FEW/LPF [facility] Comment on above: Performed By: #### 7 2375-9, 82007-9 ####[facility], [address] [place] [address]. Mucus Ql (Urine sed) OCCASSNL Abnormal NONE/LPF Moun [facility] Comment on above: Performed By: #### 7 2375-9, 74363-5 ####[facility], [facility] [place], [place]. RBC LM.HPF (Urine sed) [#/Area] 2026 /[HPF] High 0-5 [facility] Comment on above: Performed By: #### 7 2374-, 22215-9 ####[facility], [address] [place] [address]. WBC LM.HPF (Urine sed) [#/Area] 40 /[HPF] High 0-5 [facility] Comment on above: Performed By: #### 7 2374-, 37633-2 ####[facility], [address], [place]. Urinalysis dipstick W Reflex Microscopic panel (U)on 01-07-2020 Appearance (U) HAZY Abnormal CLEAR [facility] Comment on above: Performed By: #### 7 2374-, 37834-4 ####[facility], [address] [place] [address]. Bilirubin (U) [Mass/Vol] Negative Normal NEGATIVE-NEGAT [facility]CK[facility] Comment on above: Performed By: #### 7 2374-11, 30415-2 ####[facility], [address] [place] [address]. Color (U) YELLOW Normal YELLOW [facility] Comment on above: Performed By: #### 7 2374-11, 56784-7 ####[facility], [address], [place]. Glucose Test strip (U) [Mass/Vol] NORMAL Normal NORMAL [facility] Comment on above: Performed By: #### 7 2374-, 23538-4 ####[facility], [address], [place]. Hemoglobin Ql (U) 300/UL Abnormal NEGATIVE-N EGAT [facility] Comment on above: Performed By: #### 7 2374-, 21419-5 ####[facility], [address], [place]. Ketones (U) [Mass/Vol] Negative Normal NEGATIVE-NEGAT MCKENZ[facility] Comment on above: Performed By: #### 7 237-, 22765-3 ####[facility], [address] [place] [address]. Leukocyte esterase Test strip Ql (U) 25/UL Abnormal NEGATIVE-NEGAT [facility]CKENZ[facility] Comment on above: Performed By: #### 7 2374-11, 29786-9 ####[facility], [address], [place]. Nitrite Test strip (U) [Mass/Vol] Negative Normal NEGATIVE-NEGAT [facility]CKENZ[facility] Comment on above: Performed By: #### 7 2374-11, 70586-2 ####[facility], [address] [place] [address]. pH (U) 6.0 [pH] Normal 5.0-9.0 [facility] Comment on above: Performed By: #### 7 2374-11, 06419-8 ####[facility], [address] [place] [address]. Protein (U) [Mass/Vol] 100 mg/dL Abnormal NEGATIVE-NEGAT MCKENZ[facility] Comment on above: Performed By: #### 7 2374-11, 73739-9 ####[facility], [address] [place] [address]. Specific gravity (U) [Rel density] 1.023 Normal 1.005-1.035 [facility] Comment on above: Performed By: #### 7 2374-, 87666-9 ####[facility], [address] [place] [address]. Urobilinogen (U) [Mass/Vol] NORMAL Normal NORMAL [facility] Comment on above: Performed By: #### 7 2374-, 98547-8 ####[facility], [address] [place] [address]. Pre-Arrival Formon 0 Pre-Arrival Form Normal [facility] CBC WITH AUTO DIFFERENTIALon 12-15-2019 Basophils (Bld) [#/Vol] 0.03 10*3/uL [facility] Basophils/100 WBC (Bld) 0.5 % [facility] Eosinophils (Bld) [#/Vol] 0.10 10*3/uL [facility] Eosinophils/100 WBC (Bld) 1.7 % [facility] Erythrocyte distribution width (RBC) [Entitic vol] 13.0 % 11.6 - 14.8 % [facility] Hematocrit (Bld) [Volume fraction] 35.6 % Low 36 - 46 % [facility] Hemoglobin (Bld) [Mass/Vol] 11.6 g/dL Low 12 - 16 g/dL [facility] Immature granulocytes (Bld) [#/Vol] 0.01 10*3/uL [facility] Immature granulocytes/100 WBC (Bld) 0.20 % [facility] Comment on above: The IG parameter is the percentage of metamyelocytes, myelocytes and promyelocytes. An immature granulocyte count (IG) of 1% or more suggests the possibility of infection, an IG count of 3% is very likely related to an infection. Lymphocytes (Bld) [#/Vol] 1.94 10*3/uL [facility] Lymphocytes/100 WBC (Bld) 32.5 % [facility] MCH (RBC) [Entitic mass] 27.8 pg 26 - 34 pg [facility] MCHC (RBC) [Mass/Vol] 32.6 g/dL 31 - 37 g/dL [facility] MCV (RBC) [Entitic vol] 85.4 fL 80 - 100 fL [facility] Monocytes (Bld) [#/Vol] 0.43 10*3/uL [facility] Monocytes/100 WBC (Bld) 7.2 % [facility] Neutrophils (Bld) [#/Vol] 3.46 10*3/uL [facility] Neutrophils/100 WBC (Bld) 57.9 % [facility] Nucleated RBC (Bld) [#/Vol] 0.00 10*3/uL [facility] Nucleated RBC/100 WBC (Bld) [Ratio] 0.0 % [facility] Platelet mean volume (Bld) [Entitic vol] 10.2 fL 9.4 - 12.4 fL [facility] Platelets (Bld) [#/Vol] 236 10*3/uL [facility] RBC (Bld) [#/Vol] 4.17 10*6/uL [facility] WBC (Bld) [#/Vol] 5.97 10*3/uL [facility] Chem 7on 12-15-2019 Anion gap [Moles/Vol] 15 mmol/L 10 - 20 mmol/L [facility] Chloride [Moles/Vol] 103 mmol/L 98 - 10 8 mmol/L [facility] Creatinine [Mass/Vol] 0.77 mg/dL 0.40 - 1.10 [facility] GFR/1.73 sq M predicted among non-blacks MDRD (S/P/Bld) [Vol rate/Area] The eGFR should be used for monitoring renal function only and not for medication dosing. [facility] GFR/1.73 sq M.predicted CKD-EPI (S/P/Bld) [Vol rate/Area] 105 >=60 mL/min/1.73 m2 [facility] Glucose [Mass/Vol] 82 mg/dL 65 - 99 mg/dL [facility] HCO3 [Moles/Vol] 25 mmol/L 21 - 32 mmol/L [facility] Potassium [Moles/Vol] 3.9 mmol/L 3.5 - 5.1 mmol/L [facility] Sodium [Moles/Vol] 139 mmol/L 135 - 145 mmol/L [facility] Urea nitrogen [Mass/Vol] 16 mg/dL 8 - 25 mg/dL [facility] Urea nitrogen/Creatinine [Mass ratio] 20.8 mg/mg High [facility] ECG 12-LEADon 12-15-2019 Interpretation and review of laboratory results Abnormal [facility] Nathan Latham MD 12/15/2019 1:37 AM EKG 12-lead Date/Time: 12/15/2019 1:37 AM Performed by: Nathan Latham MD Authorized by: Florin Nuñez PA-C Interpreted by ED attending physician Comparison: not compared with previous ECG Rhythm: sinus rhythm BPM: 90 Conduction: incomplete RBBB Clinical impression: abnormal ECG [facility] Hepatic Function Panel (LFT) on 12-15-2019 Albumin [Mass/Vol] 4.8 g/dL 3.2 - 5.2 g/dL [facility] ALP [Catalytic activity/Vol] 46 U/L 40 - 140 U/L [facility] ALT [Catalytic activity/Vol] 17 U/L 0 - 40 U/L [facility] AST [Catalytic activity/Vol] 23 U/L 0 - 45 U/L [facility] Bilirubin [Mass/Vol] mg/dL 0 - 1.3 mg/dL [facility] Bilirubin.conjugated [Mass/Vol] mg/dL 0 - 0.4 mg/dL [facility] Interpretation and review of laboratory results Normal [facility] Protein [Mass/Vol] 7.4 g/dL 6 - 8 g/dL [facility] alth Lipaseon 12-15-2019 Interpretation and review of laboratory results Normal [facility] Lipase [Catalytic activity/Vol] 34 U/L 15 - 65 U/L [facility] Otheron 12-15-2019 Interpretation and review of laboratory results Abnormal [facility] URINALYSISon 12-15-2019 Bacteria Auto Ql (U) None Seen None Seen /hpf [facility] Bilirubin Ql (U) Negative Negative [facility] th Clarity Refractometry automated (U) Clear Clear [facility] Color (U) Yellow Colorless, Yellow [facility] Epithelial cells.squamous Auto (Urine sed) [#/Area] 2 [facility] Glucose Auto test strip (U) [Mass/Vol] Negative Negative mg/dL [facility] Hemoglobin Auto test strip Ql (U) Moderate Abnormal Negative [facility] Ketones (U) [Mass/Vol] Negative Negative mg/dL [facility] Leukocyte esterase Auto test strip Ql (U) Negative Negative [facility] Mucus Auto (Urine sed) [#/Area] Rare None Seen, Rare /lpf [facility] Nitrite Auto test strip Ql (U) Negative Negative [facility] pH (U) 6.0 [pH] [facility] Protein (U) [Mass/Vol] Negative Negative mg/dL [facility] RBC Auto (Urine sed) [#/Area] 6 High [facility] Specific gravity (U) [Rel density] 1.024 [facility] Urobilinogen (U) [Mass/Vol] <2.0 <2.0 mg/dL [facility] WBC Auto (Urine sed) [#/Area] 1 [facility] Microscopic examinat ion is performed on all urinalysis samples and only positive findings are reported. The test for blood on the chemical analytic portion of urinalysis may also be positive due to hemoglobinuria and myoglobinuria and if red blood cells are present they are quantified by microscopic examination. [facility] Urine Pregnancyon 12-15-2019 HCG ( test) Ql (U) Negative Negative [facility] Interpretation and review of laboratory results Normal [facility] Otheron 12-14-2019 Extra Tube Hold for add-ons. [facility] Comment on above: Auto resulted. Urine Aerobic Cultureon Bacteria identified Aer cx Nom (Unsp spec) No Growth (<1,000 CFU/mL) [facility] Basic Metabolic Panelon Anion gap [Moles/Vol] 14 mmol/L 10 - 20 mmol/L [facility] Calcium [Mass/Vol] 8.5 mg/dL 8.4 - 10. 2 mg/dL [facility] Chloride [Moles/Vol] 110 mmol/L High 98 - 10 8 mmol/L [facility] Creatinine [Mass/Vol] 0.55 mg/dL 0.40 - 1.10 [facility] GFR/1.73 sq M predicted among non-blacks MDRD (S/P/Bld) [Vol rate/Area] The eGFR should be used for monitoring renal function only and not for medication dosing. [facility] GFR/1.73 sq M.predicted CKD-EPI (S/P/Bld) [Vol rate/Area] 127 >=60 mL/min/1.73 m2 [facility] Glucose [Mass/Vol] 83 mg/dL 65 - 99 mg/dL [facility] HCO3 [Moles/Vol] 21 mmol/L 21 - 32 mmol/L [facility] Interpretation and review of laboratory results Abnormal [facility] Potassium [Moles/Vol] 3.6 mmol/L 3.5 - 5.1 mmol/L [facility] Sodium [Moles/Vol] 141 mmol/L 135 - 145 mmol/L [facility] Urea nitrogen [Mass/Vol] 14 mg/dL 8 - 25 mg/dL [facility] Urea nitrogen/Creatinine [Mass ratio] 25.5 mg/mg High [facility] CBCon 12-06-2019 Erythrocyte distribution width (RBC) [Entitic vol] 13.4 % 11.6 - 14.8 % [facility] Hematocrit (Bld) [Volume fraction] 36.0 % 36 - 46 % [facility] Hemoglobin (Bld) [Mass/Vol] 11.2 g/dL Low 12 - 16 g/dL [facility] Interpretation and review of laboratory results Abnormal [facility] MCH (RBC) [Entitic mass] 28.1 pg 26 - 34 pg [facility] MCHC (RBC) [Mass/Vol] 31.1 g/dL 31 - 37 g/dL [facility] MCV (RBC) [Entitic vol] 90.5 fL 80 - 100 fL [facility] Comment on above: Results checked Nucleated RBC (Bld) [#/Vol] 0.00 10*3/uL [facility] Nucleated RBC/100 WBC (Bld) [Ratio] 0.0 % [facility] Platelet mean volume (Bld) [Entitic vol] 9.6 fL 9.4 - 12.4 fL [facility] Platelets (Bld) [#/Vol] 216 10*3/uL [facility] RBC (Bld) [#/Vol] 3.98 10*6/uL Low [facility] WBC (Bld) [#/Vol] 5.87 10*3/uL [facility] CBC WITH AUTO DIFFERENTIALon 12-05-2019 Basophils (Bld) [#/Vol] 0.04 10*3/uL [facility] Basophils/100 WBC (Bld) 0.7 % [facility] Eosinophils (Bld) [#/Vol] 0.06 10*3/uL [facility] Eosinophils/100 WBC (Bld) 1.0 % [facility] Erythrocyte distribution width (RBC) [Entitic vol] 13.2 % 11.6 - 14.8 % [facility] Hematocrit (Bld) [Volume fraction] 37.9 % 36 - 46 % [facility] Hemoglobin (Bld) [Mass/Vol] 12.3 g/dL 12 - 16 g/dL [facility] Immature granulocytes (Bld) [#/Vol] 0.02 10*3/uL [facility] Immature granulocytes/100 WBC (Bld) 0.30 % [facility] Comment on above: The IG parameter is the percentage of metamyelocytes, myelocytes and promyelocytes. An immature granulocyte count (IG) of 1% or more suggests the possibility of infection, an IG count of 3% is very likely related to an infection. Lymphocytes (Bld) [#/Vol] 1.22 10*3/uL [facility] Lymphocytes/100 WBC (Bld) 20.1 % [facility] MCH (RBC) [Entitic mass] 27.5 pg 26 - 34 pg [facility] MCHC (RBC) [Mass/Vol] 32.5 g/dL 31 - 37 g/dL [facility] MCV (RBC) [Entitic vol] 84.8 fL 80 - 100 fL [facility] Monocytes (Bld) [#/Vol] 0.46 10*3/uL [facility] Monocytes/100 WBC (Bld) 7.6 % [facility] Neutrophils (Bld) [#/Vol] 4.27 10*3/uL [facility] Neutrophils/100 WBC (Bld) 70.3 % [facility] Nucleated RBC (Bld) [#/Vol] 0.00 10*3/uL [facility] Nucleated RBC/100 WBC (Bld) [Ratio] 0.0 % [facility] Platelet mean volume (Bld) [Entitic vol] 9.8 fL 9.4 - 12.4 fL [facility] Platelets (Bld) [#/Vol] 268 10*3/uL [facility] RBC (Bld) [#/Vol] 4.47 10*6/uL [facility] WBC (Bld) [#/Vol] 6.07 10*3/uL [facility] COVID-19, 2019 Interpretation and review of laboratory results Normal [facility] SARS-CoV-2 Not Detected Not Detected [facility] Comment on above: This test was perfor med under the FDA's Emergency Use Authorization (EUA). Testing was performed using the [place] ID NOW COVID-19 assay on the ID NOW platform. This test has not been approved for use in asymptomatic patients and its performance in this patient population has not been evaluated. Negative results do not rule out the presence of SARS-CoV-2/COVID-19. Fact sheets for the EUA can be found at the following links: For Healthcare Providers: https://www.fda.gov/media/703903/download For Patients: https://www.fda.gov/media/694052/download Chem 12-05-2019 Anion gap [Moles/Vol] 16 mmol/L 10 - 20 mmol/L [facility] Chloride [Moles/Vol] 108 mmol/L 98 - 10 8 mmol/L [facility] Creatinine [Mass/Vol] 0.72 mg/dL 0.40 - 1.10 [facility] GFR/1.73 sq M predicted among non-blacks MDRD (S/P/Bld) [Vol rate/Area] The eGFR should be used for monitoring renal function only and not for medication dosing. [facility] GFR/1.73 sq M.predicted CKD-EPI (S/P/Bld) [Vol rate/Area] 114 >=60 mL/min/1.73 m2 [facility] Glucose [Mass/Vol] 86 mg/dL 65 - 99 mg/dL [facility] HCO3 [Moles/Vol] 25 mmol/L 21 - 32 mmol/L [facility] Interpretation and review of laboratory results Abnormal [facility] Potassium [Moles/Vol] 3.9 mmol/L 3.5 - 5.1 mmol/L [facility] Sodium [Moles/Vol] 145 mmol/L 135 - 145 mmol/L [facility] Urea nitrogen [Mass/Vol] 15 mg/dL 8 - 25 mg/dL [facility] Urea nitrogen/Creatinine [Mass ratio] 20.8 mg/mg High [facility] Otheron 12-05-2019 Extra Tube Hold for add-ons. [facility] Comment on above: Auto resulted. URINALYSISon 12-05-2019 Bacteria Auto Ql (U) Rare Abnormal None Seen /hpf [facility] Bilirubin Ql (U) Negative Negative [facility] th Clarity Refractometry automated (U) Hazy Abnormal Clear [facility] Color (U) Yellow Colorless, Yellow [facility] Epithelial cells.squamous Auto (Urine sed) [#/Area] 4 [facility] Glucose Auto test strip (U) [Mass/Vol] Negative Negative mg/dL [facility] Hemoglobin Auto test strip Ql (U) Moderate Abnormal Negative [facility] Interpretation and review of laboratory results Abnormal [facility] Ketones (U) [Mass/Vol] Negative Negative mg/dL [facility] Leukocyte esterase Auto test strip Ql (U) Small Abnormal Negative [facility] Mucus Auto (Urine sed) [#/Area] Few Abnormal None Seen, Rare /lpf [facility] Nitrite Auto test strip Ql (U) Negative Negative [facility] pH (U) 6.0 [pH] [facility] Protein (U) [Mass/Vol] Negative Negative mg/dL [facility] RBC Auto (Urine sed) [#/Area] 159 High [facility] Specific gravity (U) [Rel density] 1.023 [facility] Urobilinogen (U) [Mass/Vol] <2.0 <2.0 mg/dL [facility] WBC Auto (Urine sed) [#/Area] 16 High [facility] Microscopic examinat ion is performed on all urinalysis samples and only positive findings are reported. The test for blood on the chemical analytic portion of urinalysis may also be positive due to hemoglobinuria and myoglobinuria and if red blood cells are present they are quantified by microscopic examination. [facility] US RENAL AND BLADDERon 12-04 Interface, Rad In Marc ji Speechq - 12/05/2019 11:56 PM EDT EXAMINATION: US RENAL AND BLADDER HISTORY: ORDERING SYSTEM PROVIDED HISTORY: Right flank pain. TECHNOLOGIST PROVIDED HISTORY: Illness/Other Reason for exam: Right flank pain. Cancer History: Surgery, RadiationHistory: Encounter Type: Initial Additional signs and symptoms: ORDERING SYSTEM PROVIDED DIAGNOSIS CODES: N20.0 Nephrolithiasis R10.9 Flank pain R11.2 Intractable vomiting with nausea, unspecified vomiting type COMPARISON: CT kidney stone from November 28, 2019. TECHNIQUE: Sonographic images of the kidneys and bladder were performed. FINDINGS: The right kidney measures 10.5 x 4.8 x 3.8 cm and demonstrates an unremarkable sonographic appearance without hydronephrosis or discrete nephrolithiasis. The left kidney measures 9.8 x 4.4 x 4.7 cm and demonstrates an unremarkable sonographic appearance without hydronephrosis or discrete nephrolithiasis. There is a small echogenic structure within the right aspect of the bladder, measuring approximately 8 mm, potentially representing a bladder calculus, possibly having passed from the right kidney given that previously noted small right renal calculus on recent CT is not well delineated on this exam. IMPRESSION: No sonographic evidence of hydronephrosis. Small echogenic structure within the right aspect of the bladder, measuring approximately 8 mm, potentially representing a bladder calculus, possibly having passed from the right kidney given that previously noted small right renal calculus on recent CT is not well delineated on this exam. Correlation with urinalysis and follow-up CT kidney stone are advisable for more complete characterization/assess ment. Workstation ID: [id number] [facility] EXAMINATION: US ANAYELI L AND BLADDER HISTORY: ORDERING SYSTEM PROVIDED HISTORY: Right flank pain. TECHNOLOGIST PROVIDED HISTORY: Illness/Other Reason for exam: Right flank pain. Cancer History: Surgery, RadiationHistory: Encounter Type: Initial Additional signs and symptoms: ORDERING SYSTEM PROVIDED DIAGNOSIS CODES: N20.0 Nephrolithiasis R10.9 Flank pain R11.2 Intractable vomiting with nausea, unspecified vomiting type COMPARISON: CT kidney stone from November 28, 2019. TECHNIQUE: Sonographic images of the kidneys and bladder were performed. FINDINGS: The right kidney measures 10.5 x 4.8 x 3.8 cm and demonstrates an unremarkable sonographic appearance without hydronephrosis or discrete nephrolithiasis. The left kidney measures 9.8 x 4.4 x 4.7 cm and demonstrates an unremarkable sonographic appearance without hydronephrosis or discrete nephrolithiasis. There is a small echogenic structure within the right aspect of the bladder, measuring approximately 8 mm, potentially representing a bladder calculus, possibly having passed from the right kidney given that previously noted small right renal calculus on recent CT is not well delineated on this exam. [facility] No sonographic evide nce of hydronephrosis. Small echogenic structure within the right aspect of the bladder, measuring approximately 8 mm, potentially representing a bladder calculus, possibly having passed from the right kidney given that previously noted small right renal calculus on recent CT is not well delineated on this exam. Correlation with urinalysis and follow-up CT kidney stone are advisable for more complete characterization/assess ment. Workstation ID: [id number] [facility] CBC WITH AUTO DIFFERENTIALon 11-28-2019 Basophils (Bld) [#/Vol] 0.03 10*3/uL [facility] Basophils/100 WBC (Bld) 0.5 % [facility] Eosinophils (Bld) [#/Vol] 0.06 10*3/uL [facility] Eosinophils/100 WBC (Bld) 1.0 % [facility] Erythrocyte distribution width (RBC) [Entitic vol] 13.2 % 11.6 - 14.8 % [facility] Hematocrit (Bld) [Volume fraction] 34.8 % Low 36 - 46 % [facility] Hemoglobin (Bld) [Mass/Vol] 11.2 g/dL Low 12 - 16 g/dL [facility] Immature granulocytes (Bld) [#/Vol] 0.02 10*3/uL [facility] Immature granulocytes/100 WBC (Bld) 0.30 % [facility] Comment on above: The IG parameter is the percentage of metamyelocytes, myelocytes and promyelocytes. An immature granulocyte count (IG) of 1% or more suggests the possibility of infection, an IG count of 3% is very likely related to an infection. Interpretation and review of laboratory results Abnormal [facility] Lymphocytes (Bld) [#/Vol] 1.16 10*3/uL [facility] Lymphocytes/100 WBC (Bld) 18.4 % [facility] MCH (RBC) [Entitic mass] 27.5 pg 26 - 34 pg [facility] MCHC (RBC) [Mass/Vol] 32.2 g/dL 31 - 37 g/dL [facility] MCV (RBC) [Entitic vol] 85.5 fL 80 - 100 fL [facility] Monocytes (Bld) [#/Vol] 0.43 10*3/uL [facility] Monocytes/100 WBC (Bld) 6.8 % [facility] Neutrophils (Bld) [#/Vol] 4.59 10*3/uL [facility] Neutrophils/100 WBC (Bld) 73.0 % [facility] Nucleated RBC (Bld) [#/Vol] 0.00 10*3/uL [facility] Nucleated RBC/100 WBC (Bld) [Ratio] 0.0 % [facility] Platelet mean volume (Bld) [Entitic vol] 9.4 fL 9.4 - 12.4 fL [facility] Platelets (Bld) [#/Vol] 249 10*3/uL [facility] RBC (Bld) [#/Vol] 4.07 10*6/uL [facility] WBC (Bld) [#/Vol] 6.29 10*3/uL [facility] CT KIDNEY STONEon 11-28-2019 EXAMINATION: CT SCAN ABDOMEN AND PELVIS WITHOUT CONTRAST 11/28/2019 HISTORY: ORDERING SYSTEM PROVIDED HISTORY: left flank pain, TECHNOLOGIST PROVIDED HISTORY: Illness/Other Reason for exam: left flank pain Encounter Type: Initial Additional signs and symptoms: left flank pain ORDERING SYSTEM PROVIDED DIAGNOSIS CODES: COMPARISON: 11/17/2019. TECHNIQUE: Multiple computerized tomographic images were performed from the domes of the diaphragm through the pelvis without the use of any contrast. Multiplanar reconstructions are submitted. Dose reduction techniques were achieved by using: automated exposure control and/or adjustment of mA and/or kV according to patient size and/or use of iterative reconstruction technique. FINDINGS: The visualized lung bases are clear. CT ABDOMEN: The imaged portions of the liver and spleen are homogeneous. The pancreas is normal in size and attenuation. The gallbladder is only partially distended. The adrenal glands are not enlarged. The kidneys are symmetrical in size. There is no hydronephrosis bilaterally. In the right kidney, there is a 4.6 mm nonobstructing stone. The aortoiliac system is not enlarged. The appendix is not inflamed. There is fecal debris seen in the colon. CT PELVIS: The uterus is prominent in size. A small amount of pelvic fluid is seen and is most likely physiological. Urinary bladder is distended without defect seen. MUSCULOSKELETAL FINDINGS: No acute osseous abnormality. [facility], Rad In Fu ji Speechq - 11/28/2019 11:08 PM EDT EXAMINATION: CT SCAN ABDOMEN AND PELVIS WITHOUT CONTRAST 11/28/2019 HISTORY: ORDERING SYSTEM PROVIDED HISTORY: left flank pain, TECHNOLOGIST PROVIDED HISTORY: Illness/Other Reason for exam: left flank pain Encounter Type: Initial Additional signs and symptoms: left flank pain ORDERING SYSTEM PROVIDED DIAGNOSIS CODES: COMPARISON: 11/17/2019. TECHNIQUE: Multiple computerized tomographic images were performed from the domes of the diaphragm through the pelvis without the use of any contrast. Multiplanar reconstructions are submitted. Dose reduction techniques were achieved by using: automated exposure control and/or adjustment of mA and/or kV according to patient size and/or use of iterative reconstruction technique. FINDINGS: The visualized lung bases are clear. CT ABDOMEN: The imaged portions of the liver and spleen are homogeneous. The pancreas is normal in size and attenuation. The gallbladder is only partially distended. The adrenal glands are not enlarged. The kidneys are symmetrical in size. There is no hydronephrosis bilaterally. In the right kidney, there is a 4.6 mm nonobstructing stone. The aortoiliac system is not enlarged. The appendix is not inflamed. There is fecal debris seen in the colon. CT PELVIS: The uterus is prominent in size. A small amount of pelvic fluid is seen and is most likely physiological. Urinary bladder is distended without defect seen. MUSCULOSKELETAL FINDINGS: No acute osseous abnormality. IMPRESSION: 1. Nonobstructive 4.6 mm stone on the right kidney. 2. No hydronephrosis or other sign of obstructive uropathy. 3. No evidence of appendicitis. [employer] Workstation ID: [id number] [facility] 1. Nonobstructive 4. 6 mm stone on the right kidney. 2. No hydronephrosis or other sign of obstructive uropathy. 3. No evidence of appendicitis. [employer] Workstation ID: [id number] [facility] Chem 7on 11-28-2019 Anion gap [Moles/Vol] 15 mmol/L 10 - 20 mmol/L [facility] Chloride [Moles/Vol] 108 mmol/L 98 - 10 8 mmol/L [facility] Creatinine [Mass/Vol] 0.70 mg/dL 0.40 - 1.10 [facility] GFR/1.73 sq M predicted among non-blacks MDRD (S/P/Bld) [Vol rate/Area] The eGFR should be used for monitoring renal function only and not for medication dosing. [facility] GFR/1.73 sq M.predicted CKD-EPI (S/P/Bld) [Vol rate/Area] 117 >=60 mL/min/1.73 m2 [facility] Glucose [Mass/Vol] 82 mg/dL 65 - 99 mg/dL [facility] [Moles/Vol] 25 mmol/L 21 - 32 mmol/L [facility] Interpretation and review of laboratory results Normal [facility] Potassium [Moles/Vol] 4.3 mmol/L 3.5 - 5.1 mmol/L [facility] Sodium [Moles/Vol] 144 mmol/L 135 - 145 mmol/L [facility] Urea nitrogen [Mass/Vol] 12 mg/dL 8 - 25 mg/dL [facility] Urea nitrogen/Creatinine [Mass ratio] 17.1 mg/mg [facility] Otheron 11-28-2019 Extra Tube Hold for add-ons. [facility] Comment on above: Auto resulted. URINALYSISon 11-28-2019 Bacteria Auto Ql (U) Few Abnormal None Seen /hpf [facility] Bilirubin Ql (U) Negative Negative [facility] Clarity Refractometry automated (U) Hazy Abnormal Clear [facility] Color (U) Yellow Colorless, Yellow [facility] Epithelial cells.squamous Auto (Urine sed) [#/Area] 7 High [facility] Glucose Auto test strip (U) [Mass/Vol] Negative Negative mg/dL [facility] Hemoglobin Auto test strip Ql (U) Negative Negative [facility] Interpretation and review of laboratory results Abnormal [facility] Ketones (U) [Mass/Vol] Negative Negative mg/dL [facility] Leukocyte esterase Auto test strip Ql (U) Negative Negative [facility] Mucus Auto (Urine sed) [#/Area] Rare None Seen, Rare /lpf [facility] Nitrite Auto test strip Ql (U) Negative Negative [facility] pH (U) 7.0 [pH] [facility] Protein (U) [Mass/Vol] Negative Negative mg/dL [facility] RBC Auto (Urine sed) [#/Area] 2 [facility] Specific gravity (U) [Rel density] 1.018 [facility] Transitional cells Computer assisted (U) [#/Area] 1 [facility] Urobilinogen (U) [Mass/Vol] <2.0 <2.0 mg/dL [facility] WBC Auto (Urine sed) [#/Area] 15 High [facility] Microscopic examinat ion is performed on all urinalysis samples and only positive findings are reported. The test for blood on the chemical analytic portion of urinalysis may also be positive due to hemoglobinuria and myoglobinuria and if red blood cells are present they are quantified by microscopic examination. [facility] Urine Pregnancyon 11-28-2019 HCG ( test) Ql (U) Negative Negative [facility] Interpretation and review of laboratory results Normal [facility] WET PREPARATIONon 11-28-2019 Clue cells Wet prep Ql (Unsp spec) Possible Clue Cells Seen Abnormal No Clue Cells Seen [facility] Interpretation and review of laboratory results Abnormal [facility] T. vaginalis Wet prep Ql (Genital specimen) No Trichomonas Seen No Trichomonas Seen [facility] WBC Wet prep Ql (Unsp spec) Few WBC's Seen Abnormal No WBC's Seen [facility] Yeast Wet prep Ql (Genital specimen) No Yeast Seen No Yeast Seen [facility] Yeast.hyphae Wet prep Ql (Unsp spec) No Yeast with Hyphae Seen No Yeast with Hyphae Seen [facility] BMPon 11-25-2019 Anion gap [Moles/Vol] 17 mmol/L 10 - 20 mmol/L [facility] Calcium [Mass/Vol] 9.8 mg/dL 8.4 - 10. 2 mg/dL [facility] Chloride [Moles/Vol] 106 mmol/L 98 - 10 8 mmol/L [facility] Creatinine [Mass/Vol] 0.71 mg/dL 0.40 - 1.10 [facility] GFR/1.73 sq M predicted among non-blacks MDRD (S/P/Bld) [Vol rate/Area] The eGFR should be used for monitoring renal function only and not for medication dosing. [facility] GFR/1.73 sq M.predicted CKD-EPI (S/P/Bld) [Vol rate/Area] 115 >=60 mL/min/1.73 m2 [facility] Glucose [Mass/Vol] 94 mg/dL 65 - 99 mg/dL [facility] HCO3 [Moles/Vol] 24 mmol/L 21 - 32 mmol/L [facility] Interpretation and review of laboratory results Normal [facility] Potassium [Moles/Vol] 4.1 mmol/L 3.5 - 5.1 mmol/L [facility] Sodium [Moles/Vol] 143 mmol/L 135 - 145 mmol/L [facility] Urea nitrogen [Mass/Vol] 13 mg/dL 8 - 25 mg/dL [facility] Urea nitrogen/Creatinine [Mass ratio] 18.3 mg/mg [facility] CBC WITH AUTO DIFFERENTIALon 11-25-2019 Basophils (Bld) [#/Vol] 0.04 10*3/uL [facility] Basophils/100 WBC (Bld) 0.6 % [facility] Eosinophils (Bld) [#/Vol] 0.10 10*3/uL [facility] Eosinophils/100 WBC (Bld) 1.6 % [facility] Erythrocyte distribution width (RBC) [Entitic vol] 12.8 % 11.6 - 14.8 % [facility] Hematocrit (Bld) [Volume fraction] 34.3 % Low 36 - 46 % [facility] Hemoglobin (Bld) [Mass/Vol] 11.0 g/dL Low 12 - 16 g/dL [facility] Immature granulocytes (Bld) [#/Vol] 0.01 10*3/uL [facility] Immature granulocytes/100 WBC (Bld) 0.20 % [facility] Comment on above: The IG parameter is the percentage of metamyelocytes, myelocytes and promyelocytes. An immature granulocyte count (IG) of 1% or more suggests the possibility of infection, an IG count of 3% is very likely related to an infection. Interpretation and review of laboratory results Abnormal [facility] Lymphocytes (Bld) [#/Vol] 1.79 10*3/uL [facility] Lymphocytes/100 WBC (Bld) 27.9 % [facility] MCH (RBC) [Entitic mass] 27.3 pg 26 - 34 pg [facility] MCHC (RBC) [Mass/Vol] 32.1 g/dL 31 - 37 g/dL [facility] MCV (RBC) [Entitic vol] 85.1 fL 80 - 100 fL [facility] Monocytes (Bld) [#/Vol] 0.43 10*3/uL [facility] Monocytes/100 WBC (Bld) 6.7 % [facility] Neutrophils (Bld) [#/Vol] 4.05 10*3/uL [facility] Neutrophils/100 WBC (Bld) 63.0 % [facility] Nucleated RBC (Bld) [#/Vol] 0.00 10*3/uL [facility] Nucleated RBC/100 WBC (Bld) [Ratio] 0.0 % [facility] Platelet mean volume (Bld) [Entitic vol] 9.6 fL 9.4 - 12.4 fL [facility] Platelets (Bld) [#/Vol] 267 10*3/uL [facility] RBC (Bld) [#/Vol] 4.03 10*6/uL [facility] WBC (Bld) [#/Vol] 6.42 10*3/uL [facility] Otheron 11-25-2019 Extra Tube Hold for add-ons. [facility] Comment on above: Auto resulted. URINALYSISon 11-25-2019 Bacteria Auto Ql (U) None Seen None Seen /hpf [facility] Bilirubin Ql (U) Negative Negative [facility] Clarity Refractometry automated (U) Clear Clear [facility] Color (U) Yellow Colorless, Yellow [facility] Epithelial cells.squamous Auto (Urine sed) [#/Area] <1 [facility] Glucose Auto test strip (U) [Mass/Vol] Negative Negative mg/dL [facility] Hemoglobin Auto test strip Ql (U) Moderate Abnormal Negative [facility] Interpretation and review of laboratory results Abnormal [facility] Ketones (U) [Mass/Vol] Negative Negative mg/dL [facility] Leukocyte esterase Auto test strip Ql (U) Negative Negative [facility] Mucus Auto (Urine sed) [#/Area] Rare None Seen, Rare /lpf [facility] Nitrite Auto test strip Ql (U) Negative Negative [facility] pH (U) 6.0 [pH] [facility] Protein (U) [Mass/Vol] Negative Negative mg/dL [facility] RBC Auto (Urine sed) [#/Area] 3 [facility] Specific gravity (U) [Rel density] 1.014 [facility] Transitional cells Computer assisted (U) [#/Area] <1 [facility] Urobilinogen (U) [Mass/Vol] <2.0 <2.0 mg/dL [facility] WBC Auto (Urine sed) [#/Area] <1 [facility] Microscopic examinat ion is performed on all urinalysis samples and only positive findings are reported. The test for blood on the chemical analytic portion of urinalysis may also be positive due to hemoglobinuria and myoglobinuria and if red blood cells are present they are quantified by microscopic examination. [facility] Urine Pregnancyon 11-25-2019 HCG ( test) Ql (U) Negative Negative [facility] Interpretation and review of laboratory results Normal [facility] Basic Metabolic Panelon 11-05 Anion gap [Moles/Vol] 12 mmol/L 10 - 20 mmol/L [facility] Calcium [Mass/Vol] 8.8 mg/dL 8.4 - 10. 2 mg/dL [facility] Chloride [Moles/Vol] 108 mmol/L 98 - 10 8 mmol/L [facility] Creatinine [Mass/Vol] 0.56 mg/dL 0.40 - 1.10 [facility] GFR/1.73 sq M predicted among non-blacks MDRD (S/P/Bld) [Vol rate/Area] The eGFR should be used for monitoring renal function only and not for medication dosing. [facility] GFR/1.73 sq M.predicted CKD-EPI (S/P/Bld) [Vol rate/Area] 126 >=60 mL/min/1.73 m2 [facility] Glucose [Mass/Vol] 88 mg/dL 65 - 99 mg/dL [facility] HCO3 [Moles/Vol] 25 mmol/L 21 - 32 mmol/L [facility] Interpretation and review of laboratory results Normal [facility] Potassium [Moles/Vol] 4.1 mmol/L 3.5 - 5.1 mmol/L [facility] Sodium [Moles/Vol] 141 mmol/L 135 - 145 mmol/L [facility] Urea nitrogen [Mass/Vol] 9 mg/dL 8 - 25 mg/dL [facility] Urea nitrogen/Creatinine [Mass ratio] 16.1 mg/mg [facility] CBCon 11-18-2019 Erythrocyte distribution width (RBC) [Entitic vol] 12.9 % 11.6 - 14.8 % [facility] Hematocrit (Bld) [Volume fraction] 30.7 % Low 36 - 46 % [facility] Hemoglobin (Bld) [Mass/Vol] 9.8 g/dL Low 12 - 16 g/dL [facility] Interpretation and review of laboratory results Abnormal [facility] MCH (RBC) [Entitic mass] 27.5 pg 26 - 34 pg [facility] MCHC (RBC) [Mass/Vol] 31.9 g/dL 31 - 37 g/dL [facility] MCV (RBC) [Entitic vol] 86.0 fL 80 - 100 fL [facility] Nucleated RBC (Bld) [#/Vol] 0.00 10*3/uL [facility] Nucleated RBC/100 WBC (Bld) [Ratio] 0.0 % [facility] Platelet mean volume (Bld) [Entitic vol] 9.5 fL 9.4 - 12.4 fL [facility] Platelets (Bld) [#/Vol] 194 10*3/uL [facility] RBC (Bld) [#/Vol] 3.57 10*6/uL Low [facility] WBC (Bld) [#/Vol] 5.89 10*3/uL [facility] ECG 12-LEADon 11-18-2019 Atrial Rate 101 BPM [facility] P [place] 71 degrees [facility] P-R Interval 148 ms [facility] Q-T Interval 338 ms [facility] QRS Duration 86 ms [facility] QTC Calculation (Bezet) 438 ms [facility] R [place] 66 degrees [facility] T [place] 38 degrees [facility] Ventricular Rate 101 BPM [facility] Sinus tachycardia Confirmed by KYLE WASHINGTON MD ([id number]) on 11/18/2019 8:46:04 AM [facility] BMPon 11-17-2019 Anion gap [Moles/Vol] 16 mmol/L 10 - 20 mmol/L [facility] Calcium [Mass/Vol] 10.0 mg/dL 8.4 - 10. 2 mg/dL [facility] Chloride [Moles/Vol] 102 mmol/L 98 - 10 8 mmol/L [facility] Creatinine [Mass/Vol] 0.71 mg/dL 0.40 - 1.10 [facility] GFR/1.73 sq M predicted among non-blacks MDRD (S/P/Bld) [Vol rate/Area] The eGFR should be used for monitoring renal function only and not for medication dosing. [facility] GFR/1.73 sq M.predicted CKD-EPI (S/P/Bld) [Vol rate/Area] 115 >=60 mL/min/1.73 m2 [facility] Glucose [Mass/Vol] 114 mg/dL High 65 - 99 mg/dL [facility] HCO3 [Moles/Vol] 25 mmol/L 21 - 32 mmol/L [facility] Interpretation and review of laboratory results Abnormal [facility] Potassium [Moles/Vol] 3.3 mmol/L Low 3.5 - 5.1 mmol/L [facility] Sodium [Moles/Vol] 140 mmol/L 135 - 145 mmol/L [facility] Urea nitrogen [Mass/Vol] 15 mg/dL 8 - 25 mg/dL [facility] Urea nitrogen/Creatinine [Mass ratio] 21.1 mg/mg High [facility] CBC WITH AUTO DIFFERENTIALon 11-17-2019 Basophils (Bld) [#/Vol] 0.04 10*3/uL [facility] Basophils/100 WBC (Bld) 0.5 % [facility] Eosinophils (Bld) [#/Vol] 0.05 10*3/uL [facility] Eosinophils/100 WBC (Bld) 0.6 % [facility] Erythrocyte distribution width (RBC) [Entitic vol] 12.7 % 11.6 - 14.8 % [facility] Hematocrit (Bld) [Volume fraction] 36.6 % 36 - 46 % [facility] Hemoglobin (Bld) [Mass/Vol] 12.1 g/dL 12 - 16 g/dL [facility] Immature granulocytes (Bld) [#/Vol] 0.04 10*3/uL [facility] Immature granulocytes/100 WBC (Bld) 0.50 % [facility] Comment on above: The IG parameter is the percentage of metamyelocytes, myelocytes and promyelocytes. An immature granulocyte count (IG) of 1% or more suggests the possibility of infection, an IG count of 3% is very likely related to an infection. Lymphocytes (Bld) [#/Vol] 1.60 10*3/uL [facility] Lymphocytes/100 WBC (Bld) 19.2 % [facility] MCH (RBC) [Entitic mass] 27.6 pg 26 - 34 pg [facility] MCHC (RBC) [Mass/Vol] 33.1 g/dL 31 - 37 g/dL [facility] MCV (RBC) [Entitic vol] 83.4 fL 80 - 100 fL [facility] Monocytes (Bld) [#/Vol] 0.72 10*3/uL [facility] Monocytes/100 WBC (Bld) 8.7 % [facility] Neutrophils (Bld) [#/Vol] 5.87 10*3/uL [facility] Neutrophils/100 WBC (Bld) 70.5 % [facility] Nucleated RBC (Bld) [#/Vol] 0.00 10*3/uL [facility] Nucleated RBC/100 WBC (Bld) [Ratio] 0.0 % [facility] Platelet mean volume (Bld) [Entitic vol] 9.6 fL 9.4 - 12.4 fL [facility] Platelets (Bld) [#/Vol] 257 10*3/uL [facility] RBC (Bld) [#/Vol] 4.39 10*6/uL [facility] WBC (Bld) [#/Vol] 8.32 10*3/uL [facility] COVID-19, Molecularon 2019 Interpretation and review of laboratory results Normal [facility] SARS-CoV-2 Not Detected Not Detected [facility] Comment on above: This test was perfor med under the FDA's Emergency Use Authorization (EUA). Testing was performed using the [employer] ID NOW COVID-19 assay on the ID NOW platform. This test has not been approved for use in asymptomatic patients and its performance in this patient population has not been evaluated. Negative results do not rule out the presence of SARS-CoV-2/COVID-19. Fact sheets for the EUA can be found at the following links: For Healthcare Providers: https://www.[employer].gov/media/912520/download For Patients: https://www.fda.gov/media/020406/download CT Abdomen Pelvis With IV Co ntrast Onlyon 11-17-2019 EXAMINATION: CT ABDO MEN PELVIS WITH IV CONTRAST ONLY HISTORY: ORDERING SYSTEM PROVIDED HISTORY: flank pain, sepsis, h/o recent surgical intervention, TECHNOLOGIST PROVIDED HISTORY: Illness/Other Reason for exam: flank pain, sepsis, h/o recent surgical intervention Encounter Type: Initial Additional signs and symptoms: flank pain, sepsis, h/o recent surgical intervention ORDERING SYSTEM PROVIDED DIAGNOSIS CODES: COMPARISON: 2019 TECHNIQUE: CT examination of the abdomen and pelvis following the administration of intravenous contrast. Coronal and sagittal reformations were performed. Dose reduction techniques were achieved by using automated exposure control and/or adjustment of mA and/or kV according to patient size and/or use of iterative reconstruction technique. CONTRAST: IOPAMIDOL 76 % INTRAVENOUS SOLUTION - 75 mL, FINDINGS: Visualized portions of the lung bases appear clear. The liver, spleen, and pancreas enhance homogeneously with no discrete masses or adjacent inflammatory changes. There are no large calcified stones in the gallbladder. There is no significant biliary dilatation. The bilateral adrenal glands appear normal. The kidneys enhance symmetrically with no hydronephrosis. A stone in the right kidney is again noted. There are no stones in the bladder. The bladder is decompressed with a Reaves catheter in position. The javed of the bladder appear prominent. This may be due to underdistention. There is no free air or free fluid. There are no abscesses. There is no significant lymphadenopathy. There is no evidence of intestinal obstruction. The aorta is normal in caliber. No acute or aggressive-appearing bony abnormalities. [facility] Interface, Rad In Fu ji Speechq - 11/17/2019 8:51 PM EDT EXAMINATION: CT ABDOMEN PELVIS WITH IV CONTRAST ONLY HISTORY: ORDERING SYSTEM PROVIDED HISTORY: flank pain, sepsis, h/o recent surgical intervention, TECHNOLOGIST PROVIDED HISTORY: Illness/Other Reason for exam: flank pain, sepsis, h/o recent surgical intervention Encounter Type: Initial Additional signs and symptoms: flank pain, sepsis, h/o recent surgical intervention ORDERING SYSTEM PROVIDED DIAGNOSIS CODES: COMPARISON: 2019 TECHNIQUE: CT examination of the abdomen and pelvis following the administration of intravenous contrast. Coronal and sagittal reformations were performed. Dose reduction techniques were achieved by using automated exposure control and/or adjustment of mA and/or kV according to patient size and/or use of iterative reconstruction technique. CONTRAST: IOPAMIDOL 76 % INTRAVENOUS SOLUTION - 75 mL, FINDINGS: Visualized portions of the lung bases appear clear. The liver, spleen, and pancreas enhance homogeneously with no discrete masses or adjacent inflammatory changes. There are no large calcified stones in the gallbladder. There is no significant biliary dilatation. The bilateral adrenal glands appear normal. The kidneys enhance symmetrically with no hydronephrosis. A stone in the right kidney is again noted. There are no stones in the bladder. The bladder is decompressed with a Reaves catheter in position. The javed of the bladder appear prominent. This may be due to underdistention. There is no free air or free fluid. There are no abscesses. There is no significant lymphadenopathy. There is no evidence of intestinal obstruction. The aorta is normal in caliber. No acute or aggressive-appearing bony abnormalities. IMPRESSION: 1. The bladder is decompressed with a Reaves catheter in position. There is bladder wall thickening which is most likely due to underdistention. Cystitis cannot be excluded. 2. There are no other acute abnormalities. 3. Right-sided nephrolithiasis is again noted. No evidence of urinary obstruction. [employer] Workstation ID: [id number] [facility] 1. The bladder is decompressed with a Reaves catheter in position. There is bladder wall thickening which is most likely due to underdistention. Cystitis cannot be excluded. 2. There are no other acute abnormalities. 3. Right-sided nephrolithiasis is again noted. No evidence of urinary obstruction. [facility]/[employer] Workstation ID: [id number] [facility] HCG (QUALITATIVE)on 11-17-19 20 Beta HCG ( test) Ql Negative Negative [facility] Negative: The result is less than or equal to 5 mIU/mL of HCG. [facility] Hepatic Function Panel (LFT) on 11-17-2019 Albumin [Mass/Vol] 5.0 g/dL 3.2 - 5.2 g/dL [facility] ALP [Catalytic activity/Vol] 47 U/L 40 - 140 U/L [facility] ALT [Catalytic activity/Vol] 10 U/L 0 - 40 U/L [facility] AST [Catalytic activity/Vol] 14 U/L 0 - 45 U/L [facility] Bilirubin [Mass/Vol] 0.4 mg/dL 0 - 1.3 mg/dL [facility] Bilirubin.conjugated [Mass/Vol] mg/dL 0 - 0.4 mg/dL [facility] Protein [Mass/Vol] 7.8 g/dL 6 - 8 g/dL [facility] Lactic Acid, Plasmaon 2019 Interpretation and review of laboratory results Normal [facility] Lactate [Moles/Vol] 1.3 mmol/L 0.6 - 2 mmol/L [facility] Lipaseon 11-17-2019 Lipase [Catalytic activity/Vol] 33 U/L 15 - 65 U/L [facility] Otheron 11-17-2019 Extra Tube Hold for add-ons. [facility] Comment on above: Auto resulted. Interpretation and review of laboratory results Normal [facility] URINALYSISon 11-17-2019 Bacteria Auto Ql (U) Many Abnormal None Seen /hpf [facility] Bilirubin Ql (U) Negative Negative [facility] Clarity Refractometry automated (U) Cloudy Abnormal Clear [facility] Color (U) Yellow Colorless, Yellow [facility] Glucose Auto test strip (U) [Mass/Vol] Negative Negative mg/dL [facility] Hemoglobin Auto test strip Ql (U) Large Abnormal Negative [facility] Interpretation and review of laboratory results Abnormal [facility] Ketones (U) [Mass/Vol] Trace Abnormal Negative mg/dL [facility] Leukocyte esterase Auto test strip Ql (U) Large Abnormal Negative [facility] Mucus Auto (Urine sed) [#/Area] Few Abnormal None Seen, Rare /lpf [facility] Nitrite Auto test strip Ql (U) Negative Negative [facility] pH (U) 6.0 [pH] [facility] Protein (U) [Mass/Vol] 100 Abnormal Negative mg/dL [facility] RBC Auto (Urine sed) [#/Area] 70 High [facility] Specific gravity (U) [Rel density] 1.023 [facility] Urobilinogen (U) [Mass/Vol] <2.0 <2.0 mg/dL [facility] WBC Auto (Urine sed) [#/Area] >180 High [facility] Microscopic examinat ion is performed on all urinalysis samples and only positive findings are reported. The test for blood on the chemical analytic portion of urinalysis may also be positive due to hemoglobinuria and myoglobinuria and if red blood cells are present they are quantified by microscopic examination. [facility] XR Chest 1 Viewon 11-17-2019 Interface, Rad In Fu ji Speechq - 11/17/2019 11:39 PM EDT EXAMINATION: XR CHEST PA/AP 11/17/2019 7:16 pm HISTORY: ORDERING SYSTEM PROVIDED HISTORY: Sepsis. TECHNOLOGIST PROVIDED HISTORY: Illness/Other Reason for exam: Sepsis. Cancer History: no Surgery, RadiationHistory: Encounter Type: Initial Additional signs and symptoms: ORDERING SYSTEM PROVIDED DIAGNOSIS CODES: COMPARISON: Chest x-ray from October 25, 2019. FINDINGS: No focal consolidation, pneumothorax, or pleural effusion. The cardiomediastinal silhouette is unremarkable. The osseous structures are intact. IMPRESSION: No focal consolidation, pneumothorax, or pleural effusion. [employer] Workstation ID: [id number] [facility] No focal consolidati on, pneumothorax, or pleural effusion. [employer] Workstation ID: [id number] [facility] EXAMINATION: XR CHES T PA/AP 11/17/2019 7:16 pm HISTORY: ORDERING SYSTEM PROVIDED HISTORY: Sepsis. TECHNOLOGIST PROVIDED HISTORY: Illness/Other Reason for exam: Sepsis. Cancer History: no Surgery, RadiationHistory: Encounter Type: Initial Additional signs and symptoms: ORDERING SYSTEM PROVIDED DIAGNOSIS CODES: COMPARISON: Chest x-ray from October 25, 2019. FINDINGS: No focal consolidation, pneumothorax, or pleural effusion. The cardiomediastinal silhouette is unremarkable. The osseous structures are intact. [facility] Measure post void residualon 11-06-2019 Interpretation and review of laboratory results Abnormal [facility] Measure Post Void Residual 415 [facility] Basic Metabolic Panelon 08-3 Anion gap [Moles/Vol] 12 mmol/L 10 - 20 mmol/L [facility] Calcium [Mass/Vol] 9.1 mg/dL 8.4 - 10. 2 mg/dL [facility] Chloride [Moles/Vol] 104 mmol/L 98 - 10 8 mmol/L [facility] Creatinine [Mass/Vol] 0.51 mg/dL 0.40 - 1.10 [facility] GFR/1.73 sq M predicted among non-blacks MDRD (S/P/Bld) [Vol rate/Area] The eGFR should be used for monitoring renal function only and not for medication dosing. [facility] GFR/1.73 sq M.predicted CKD-EPI (S/P/Bld) [Vol rate/Area] 130 >=60 mL/min/1.73 m2 [facility] Glucose [Mass/Vol] 84 mg/dL 65 - 99 mg/dL [facility] HCO3 [Moles/Vol] 24 mmol/L 21 - 32 mmol/L [facility] Interpretation and review of laboratory results Abnormal [facility] Potassium [Moles/Vol] 3.3 mmol/L Low 3.5 - 5.1 mmol/L [facility] Sodium [Moles/Vol] 137 mmol/L 135 - 145 mmol/L [facility] Urea nitrogen [Mass/Vol] 6 mg/dL Low 8 - 25 mg/dL [facility] Urea nitrogen/Creatinine [Mass ratio] 11.8 mg/mg [facility] CBCon 11-05-2019 Erythrocyte distribution width (RBC) [Entitic vol] 12.9 % 11.6 - 14.8 % [facility] Hematocrit (Bld) [Volume fraction] 32.8 % Low 36 - 46 % [facility] Hemoglobin (Bld) [Mass/Vol] 10.5 g/dL Low 12 - 16 g/dL [facility] Interpretation and review of laboratory results Abnormal [facility] MCH (RBC) [Entitic mass] 27.6 pg 26 - 34 pg [facility] MCHC (RBC) [Mass/Vol] 32.0 g/dL 31 - 37 g/dL [facility] MCV (RBC) [Entitic vol] 86.1 fL 80 - 100 fL [facility] Nucleated RBC (Bld) [#/Vol] 0.00 10*3/uL [facility] Nucleated RBC/100 WBC (Bld) [Ratio] 0.0 % [facility] Platelet mean volume (Bld) [Entitic vol] 9.6 fL 9.4 - 12.4 fL [facility] Platelets (Bld) [#/Vol] 204 10*3/uL [facility] RBC (Bld) [#/Vol] 3.81 10*6/uL [facility] ealt WBC (Bld) [#/Vol] 6.07 10*3/uL [facility] DRUGS OF ABUSE SCREEN, URINE on 11-05-2019 Amphetamines Ql (U) None Detected None Detected [facility] Comment on above: Urine Amphetamine Cu toff: < 1000 ng/mL = None Detected Barbiturates Screen Ql (U) None Detected None Detected [facility] Comment on above: Urine Barbiturates C utoff: < 200 ng/mL = None Detected Benzodiazepines Ql (U) None Detected None Detected [facility] Comment on above: Urine Benzodiazepine Cutoff: < 200 ng/mL = None Detected Buprenorphine Ql (U) None Detected None Detecte d [facility] Comment on above: Urine Buprenorphine Cutoff: < 5 ng/mL = None Detected Cannabinoids Screen Ql (U) None Detected None Detected [facility] Comment on above: Urine Cannabinoids C utoff: < 50 ng/mL = None Detected Cocaine Ql (U) None Detected None Detected [facility] Comment on above: Urine Cocaine Cutoff : < 300 ng/mL = None Detected Fentanyl+Norfentanyl Screen Ql (U) None Detected None Detected [facility] Comment on above: Urine Fentanyl Cutof f: < 1 ng/mL = None Detected Interpretation and review of laboratory results Normal [facility] Methadone Screen Ql (U) None Detected None Detected [facility] Comment on above: Urine Methadone Cuto ff: < 300 ng/mL = None Detected Opiates Screen Ql (U) None Detected None Detected [facility] Comment on above: Urine Opiates Cutoff : < 300 ng/mL = None Detected Oxycodone Ql (U) None Detected None Detected [facility] Comment on above: Urine Oxycodone Cuto ff: < 100 ng/mL = None Detected Screen results shoul d be used for treatment purposes only. [facility] Basic Metabolic Panelon 10-07 Anion gap [Moles/Vol] 14 mmol/L 10 - 20 mmol/L [facility] Calcium [Mass/Vol] 9.3 mg/dL 8.4 - 10. 2 mg/dL [facility] Chloride [Moles/Vol] 106 mmol/L 98 - 10 8 mmol/L [facility] Creatinine [Mass/Vol] 0.58 mg/dL 0.40 - 1.10 [facility] GFR/1.73 sq M predicted among non-blacks MDRD (S/P/Bld) [Vol rate/Area] The eGFR should be used for monitoring renal function only and not for medication dosing. [facility] GFR/1.73 sq M.predicted CKD-EPI (S/P/Bld) [Vol rate/Area] 126 >=60 mL/min/1.73 m2 [facility] Glucose [Mass/Vol] 87 mg/dL 65 - 99 mg/dL [facility] HCO3 [Moles/Vol] 22 mmol/L 21 - 32 mmol/L [facility] Interpretation and review of laboratory results Normal [facility] Potassium [Moles/Vol] 3.5 mmol/L 3.5 - 5.1 mmol/L [facility] Sodium [Moles/Vol] 138 mmol/L 135 - 145 mmol/L [facility] Urea nitrogen [Mass/Vol] 9 mg/dL 8 - 25 mg/dL [facility] Urea nitrogen/Creatinine [Mass ratio] 15.5 mg/mg [facility] CBC WITH AUTO DIFFERENTIALon 2019 Basophils (Bld) [#/Vol] 0.02 10*3/uL [facility] Basophils/100 WBC (Bld) 0.3 % [facility] Eosinophils (Bld) [#/Vol] 0.05 10*3/uL [facility] Eosinophils/100 WBC (Bld) 0.8 % [facility] Erythrocyte distribution width (RBC) [Entitic vol] 12.8 % 11.6 - 14.8 % [facility] Hematocrit (Bld) [Volume fraction] 32.1 % Low 36 - 46 % [facility] Hemoglobin (Bld) [Mass/Vol] 10.6 g/dL Low 12 - 16 g/dL [facility] Immature granulocytes (Bld) [#/Vol] 0.01 10*3/uL [facility] Immature granulocytes/100 WBC (Bld) 0.20 % [facility] Comment on above: The IG parameter is the percentage of metamyelocytes, myelocytes and promyelocytes. An immature granulocyte count (IG) of 1% or more suggests the possibility of infection, an IG count of 3% is very likely related to an infection. Interpretation and review of laboratory results Abnormal [facility] Lymphocytes (Bld) [#/Vol] 1.49 10*3/uL [facility] Lymphocytes/100 WBC (Bld) 22.4 % [facility] MCH (RBC) [Entitic mass] 27.8 pg 26 - 34 pg [facility] MCHC (RBC) [Mass/Vol] 33.0 g/dL 31 - 37 g/dL [facility] MCV (RBC) [Entitic vol] 84.3 fL 80 - 100 fL [facility] Monocytes (Bld) [#/Vol] 0.44 10*3/uL [facility] Monocytes/100 WBC (Bld) 6.6 % [facility] Neutrophils (Bld) [#/Vol] 4.63 10*3/uL [facility] Neutrophils/100 WBC (Bld) 69.7 % [facility] Nucleated RBC (Bld) [#/Vol] 0.00 10*3/uL [facility] Nucleated RBC/100 WBC (Bld) [Ratio] 0.0 % [facility] Platelet mean volume (Bld) [Entitic vol] 9.7 fL 9.4 - 12.4 fL [facility] Platelets (Bld) [#/Vol] 217 10*3/uL [facility] RBC (Bld) [#/Vol] 3.81 10*6/uL Low [facility] ealt WBC (Bld) [#/Vol] 6.64 10*3/uL [facility] Abdomen Pelvis With IV Co ntrast Onlyon 2019 EXAMINATION: CT ABDO MEN PELVIS WITH IV CONTRAST ONLY HISTORY: ORDERING SYSTEM PROVIDED HISTORY: Nausea/vomiting, TECHNOLOGIST PROVIDED HISTORY: Illness/Other Reason for Exam: Nausea/vomiting Encounter Type: Initial Additional Signs and Symptoms: Nausea/vomiting ORDERING SYSTEM PROVIDED DIAGNOSIS CODES: Z96.0 Status post placement of ureteral stent N23 Renal colic R31.9 Hematuria, unspecified type R55 Vasovagal syncope COMPARISON: CT examination of the chest, abdomen and pelvis, 09/30/2019. TECHNIQUE: CT examination of the abdomen and pelvis following administration of 75 mL Isovue-370 intravenous contrast. Coronal and sagittal reformations are performed. Dose reduction techniques were achieved by using automated exposure control and/or adjustment of mA and/or kV according to patient size and/or use of iterative reconstruction technique. FINDINGS: Lung bases are clear. ABDOMEN: Liver is homogeneous in attenuation without evidence for focal lesion. Gallbladder is unremarkable. Spleen, adrenal glands and pancreas are unremarkable. No abdominal lymphadenopathy. Symmetric enhancement of the kidneys. 7 mm probable partially exophytic left midpole renal cortical cyst. No left hydronephrosis. No left intrarenal calculi. Right ureteral stent is present with mild dilatation of the right intrarenal collecting system. There is an intrarenal calculus measuring 3.5 mm with density of 1,223 Hounsfield units. PELVIS: There is mild dilatation of the right ureter. No stones are noted adjacent to the right ureteral stent. No bladder stone. Uterus and adnexa are unremarkable for age. Small amount of pelvic free fluid, which may be physiologic. No pelvic lymphadenopathy. No evidence for small- or large-bowel obstruction. Prominent amount of gas within small bowel with a few scattered air-fluid levels which may reflect underlying ileus. No free air. No suspicious osteolytic or osteoblastic lesion. [facility] 1. There is a promin ent amount of gas within the small bowel with a few scattered air-fluid levels. Small bowel remains nondilated without discrete point of transition. Findings suggest mild ileus. 2. Right ureteral stent is present. There is mild dilatation of the right intrarenal collecting system and right ureter without associated stone along the course of the right ureter. There is a 3.5 mm nonobstructive right intrarenal calculus. Findings may reflect underlying stent dysfunction. Enhancement of the kidneys remains symmetric. 3. Small amount of pelvic free fluid, likely physiologic. [employer] Workstation ID: [id number] [facility] Interface, Rad In Fu ji Speechq - 2019 7:13 AM EDT EXAMINATION: CT ABDOMEN PELVIS WITH IV CONTRAST ONLY HISTORY: ORDERING SYSTEM PROVIDED HISTORY: Nausea/vomiting, TECHNOLOGIST PROVIDED HISTORY: Illness/Other Reason for Exam: Nausea/vomiting Encounter Type: Initial Additional Signs and Symptoms: Nausea/vomiting ORDERING SYSTEM PROVIDED DIAGNOSIS CODES: Z96.0 Status post placement of ureteral stent N23 Renal colic R31.9 Hematuria, unspecified type R55 Vasovagal syncope COMPARISON: CT examination of the chest, abdomen and pelvis, 09/30/2019. TECHNIQUE: CT examination of the abdomen and pelvis following administration of 75 mL Isovue-370 intravenous contrast. Coronal and sagittal reformations are performed. Dose reduction techniques were achieved by using automated exposure control and/or adjustment of mA and/or kV according to patient size and/or use of iterative reconstruction technique. FINDINGS: Lung bases are clear. ABDOMEN: Liver is homogeneous in attenuation without evidence for focal lesion. Gallbladder is unremarkable. Spleen, adrenal glands and pancreas are unremarkable. No abdominal lymphadenopathy. Symmetric enhancement of the kidneys. 7 mm probable partially exophytic left midpole renal cortical cyst. No left hydronephrosis. No left intrarenal calculi. Right ureteral stent is present with mild dilatation of the right intrarenal collecting system. There is an intrarenal calculus measuring 3.5 mm with density of 1,223 Hounsfield units. PELVIS: There is mild dilatation of the right ureter. No stones are noted adjacent to the right ureteral stent. No bladder stone. Uterus and adnexa are unremarkable for age. Small amount of pelvic free fluid, which may be physiologic. No pelvic lymphadenopathy. No evidence for small- or large-bowel obstruction. Prominent amount of gas within small bowel with a few scattered air-fluid levels which may reflect underlying ileus. No free air. No suspicious osteolytic or osteoblastic lesion. IMPRESSION: 1. There is a prominent amount of gas within the small bowel with a few scattered air-fluid levels. Small bowel remains nondilated without discrete point of transition. Findings suggest mild ileus. 2. Right ureteral stent is present. There is mild dilatation of the right intrarenal collecting system and right ureter without associated stone along the course of the right ureter. There is a 3.5 mm nonobstructive right intrarenal calculus. Findings may reflect underlying stent dysfunction. Enhancement of the kidneys remains symmetric. 3. Small amount of pelvic free fluid, likely physiologic. [facility]/[employer] Workstation ID: [id number] [facility] Otheron 2019 Extra Tube Hold for add-ons. [facility] Comment on above: Auto resulted. URINALYSISon 2019 Bacteria Auto Ql (U) Few Abnormal None Seen /hpf [facility] Bilirubin Ql (U) Negative Negative [facility] Clarity Refractometry automated (U) Cloudy Abnormal Clear [facility] Color (U) Red Abnormal Colorless, Yellow [facility] Epithelial cells.squamous Auto (Urine sed) [#/Area] 5 High [facility] Glucose Auto test strip (U) [Mass/Vol] Negative Negative mg/dL [facility] Hemoglobin Auto test strip Ql (U) Large Abnormal Negative [facility] Interpretation and review of laboratory results Abnormal [facility] Ketones (U) [Mass/Vol] >=80 Abnormal Negative mg/dL [facility] Leukocyte esterase Auto test strip Ql (U) Trace Abnormal Negative [facility] Nitrite Auto test strip Ql (U) Negative Negative [facility] pH (U) 8.0 [pH] High [facility] Protein (U) [Mass/Vol] mg/dL Abnormal Negative mg/dL [facility] RBC Auto (Urine sed) [#/Area] >180 High [facility] Specific gravity (U) [Rel density] 1.018 [facility] Urobilinogen (U) [Mass/Vol] <2.0 <2.0 mg/dL [facility] WBC Auto (Urine sed) [#/Area] 8 High [facility] Microscopic examinat ion is performed on all urinalysis samples and only positive findings are reported. The test for blood on the chemical analytic portion of urinalysis may also be positive due to hemoglobinuria and myoglobinuria and if red blood cells are present they are quantified by microscopic examination. [facility] hCG, Blood,QUALitativeon Beta HCG ( test) Ql Negative Negative [facility] Interpretation and review of laboratory results Normal [facility] Negative: The result is less than or equal to 5 mIU/mL of HCG. [facility] Basic Metabolic Panelon 10-06 Anion gap [Moles/Vol] 15 mmol/L 10 - 20 mmol/L [facility] Calcium [Mass/Vol] 9.2 mg/dL 8.4 - 10. 2 mg/dL [facility] Chloride [Moles/Vol] 108 mmol/L 98 - 10 8 mmol/L [facility] Creatinine [Mass/Vol] 0.50 mg/dL 0.40 - 1.10 [facility] GFR/1.73 sq M predicted among non-blacks MDRD (S/P/Bld) [Vol rate/Area] The eGFR should be used for monitoring renal function only and not for medication dosing. [facility] GFR/1.73 sq M.predicted CKD-EPI (S/P/Bld) [Vol rate/Area] 132 >=60 mL/min/1.73 m2 [facility] Glucose [Mass/Vol] 88 mg/dL 65 - 99 mg/dL [facility] HCO3 [Moles/Vol] 21 mmol/L 21 - 32 mmol/L [facility] Interpretation and review of laboratory results Abnormal [facility] Potassium [Moles/Vol] 3.6 mmol/L 3.5 - 5.1 mmol/L [facility] Sodium [Moles/Vol] 140 mmol/L 135 - 145 mmol/L [facility] Urea nitrogen [Mass/Vol] 13 mg/dL 8 - 25 mg/dL [facility] Urea nitrogen/Creatinine [Mass ratio] 26.0 mg/mg High [facility] CBC WITH AUTO DIFFERENTIALon 11-03-2019 Basophils (Bld) [#/Vol] 0.02 10*3/uL [facility] Basophils/100 WBC (Bld) 0.3 % [facility] Eosinophils (Bld) [#/Vol] 0.07 10*3/uL [facility] Eosinophils/100 WBC (Bld) 0.9 % [facility] Erythrocyte distribution width (RBC) [Entitic vol] 13.2 % 11.6 - 14.8 % [facility] Hematocrit (Bld) [Volume fraction] 34.6 % Low 36 - 46 % [facility] Hemoglobin (Bld) [Mass/Vol] 11.2 g/dL Low 12 - 16 g/dL [facility] Immature granulocytes (Bld) [#/Vol] 0.02 10*3/uL [facility] Immature granulocytes/100 WBC (Bld) 0.30 % [facility] Comment on above: The IG parameter is the percentage of metamyelocytes, myelocytes and promyelocytes. An immature granulocyte count (IG) of 1% or more suggests the possibility of infection, an IG count of 3% is very likely related to an infection. Interpretation and review of laboratory results Abnormal [facility] Lymphocytes (Bld) [#/Vol] 1.72 10*3/uL [facility] Lymphocytes/100 WBC (Bld) 22.3 % [facility] MCH (RBC) [Entitic mass] 27.7 pg 26 - 34 pg [facility] MCHC (RBC) [Mass/Vol] 32.4 g/dL 31 - 37 g/dL [facility] MCV (RBC) [Entitic vol] 85.4 fL 80 - 100 fL [facility] Monocytes (Bld) [#/Vol] 0.51 10*3/uL [facility] Monocytes/100 WBC (Bld) 6.6 % [facility] Neutrophils (Bld) [#/Vol] 5.36 10*3/uL [facility] Neutrophils/100 WBC (Bld) 69.6 % [facility] Nucleated RBC (Bld) [#/Vol] 0.00 10*3/uL [facility] Nucleated RBC/100 WBC (Bld) [Ratio] 0.0 % [facility] Platelet mean volume (Bld) [Entitic vol] 9.5 fL 9.4 - 12.4 fL [facility] Platelets (Bld) [#/Vol] 205 10*3/uL [facility] RBC (Bld) [#/Vol] 4.05 10*6/uL [facility] WBC (Bld) [#/Vol] 7.70 10*3/uL [facility] Otheron 11-03-2019 Extra Tube Hold for add-ons. [facility] Comment on above: Auto resulted. URINALYSISon 11-03-2019 Bacteria Auto Ql (U) Many Abnormal None Seen /hpf [facility] Bilirubin Ql (U) Negative Negative [facility] Clarity Refractometry automated (U) Cloudy Abnormal Clear [facility] Color (U) Red Abnormal Colorless, Yellow [facility] Epithelial cells.squamous Auto (Urine sed) [#/Area] 37 High [facility] Glucose Auto test strip (U) [Mass/Vol] 50 Abnormal Negative mg/dL [facility] Hemoglobin Auto test strip Ql (U) Moderate Abnormal Negative [facility] Interpretation and review of laboratory results Abnormal [facility] Ketones (U) [Mass/Vol] 20 Abnormal Negative mg/dL [facility] Leukocyte esterase Auto test strip Ql (U) Negative Negative [facility] Nitrite Auto test strip Ql (U) Negative Negative [facility] pH (U) 6.0 [pH] [facility] Protein (U) [Mass/Vol] 100 Abnormal Negative mg/dL [facility] RBC Auto (Urine sed) [#/Area] >180 High [facility] Specific gravity (U) [Rel density] 1.023 [facility] Urobilinogen (U) [Mass/Vol] <2.0 <2.0 mg/dL [facility] WBC Auto (Urine sed) [#/Area] 8 High [facility] Microscopic examinat ion is performed on all urinalysis samples and only positive findings are reported. The test for blood on the chemical analytic portion of urinalysis may also be positive due to hemoglobinuria and myoglobinuria and if red blood cells are present they are quantified by microscopic examination. [facility] XR ABDOMEN 1 VIEWon 11-03-19 EXAMINATION: XR ABDO MEN /KUB/FLAT PLATE/1 VIEW 11/03/2019 8:37 pm HISTORY: ORDERING SYSTEM PROVIDED HISTORY: evaluate stent placement, TECHNOLOGIST PROVIDED HISTORY: Illness/Other Reason for exam: evaluate stent placement Cancer History: no Surgery, RadiationHistory: unk Encounter Type: Initial Additional signs and symptoms: ORDERING SYSTEM PROVIDED DIAGNOSIS CODES: COMPARISON: 03/30/2018 FINDINGS: Single supine image is obtained of the abdomen. There is a 3 mm calcification overlying the right kidney, similar to previous. There has been interval placement of a right ureteral stent which appears appropriately position. There is a phlebolith within the left pelvis. There is a nonobstructive bowel gas pattern. The skeletal structures are unremarkable in appearance. [facility] Right ureteral stent placement, otherwise no significant interval change. Workstation ID: [id number] [facility] Interface, Rad In Fu ji Speechq - 11/03/2019 9:12 PM EDT EXAMINATION: XR ABDOMEN /KUB/FLAT PLATE/1 VIEW 11/03/2019 8:37 pm HISTORY: ORDERING SYSTEM PROVIDED HISTORY: evaluate stent placement, TECHNOLOGIST PROVIDED HISTORY: Illness/Other Reason for exam: evaluate stent placement Cancer History: no Surgery, RadiationHistory: unk Encounter Type: Initial Additional signs and symptoms: ORDERING SYSTEM PROVIDED DIAGNOSIS CODES: COMPARISON: 03/30/2018 FINDINGS: Single supine image is obtained of the abdomen. There is a 3 mm calcification overlying the right kidney, similar to previous. There has been interval placement of a right ureteral stent which appears appropriately position. There is a phlebolith within the left pelvis. There is a nonobstructive bowel gas pattern. The skeletal structures are unremarkable in appearance. IMPRESSION: Right ureteral stent placement, otherwise no significant interval change. Workstation ID: [id number] [facility] hCG Urine, Qualitativeon HCG ( test) Ql (U) Negative Negative [facility] Interpretation and review of laboratory results Normal [facility] Comprehensive Metabolic Pane vincent 11-02-2019 Albumin [Mass/Vol] 4.0 g/dL 3.2 - 5.2 g/dL [facility] ALP [Catalytic activity/Vol] 31 U/L Low 40 - 140 U/L [facility] ALT [Catalytic activity/Vol] 8 U/L 0 - 40 U/L [facility] Anion gap [Moles/Vol] 15 mmol/L 10 - 20 mmol/L [facility] AST [Catalytic activity/Vol] 10 U/L 0 - 45 U/L [facility] Bilirubin [Mass/Vol] 0.4 mg/dL 0 - 1.3 mg/dL [facility] Calcium [Mass/Vol] 8.7 mg/dL 8.4 - 10. 2 mg/dL [facility] Chloride [Moles/Vol] 107 mmol/L 98 - 10 8 mmol/L [facility] Creatinine [Mass/Vol] 0.54 mg/dL 0.40 - 1.10 [facility] GFR/1.73 sq M predicted among non-blacks MDRD (S/P/Bld) [Vol rate/Area] The eGFR should be used for monitoring renal function only and not for medication dosing. [facility] GFR/1.73 sq M.predicted CKD-EPI (S/P/Bld) [Vol rate/Area] 129 >=60 mL/min/1.73 m2 [facility] Glucose [Mass/Vol] 88 mg/dL 65 - 99 mg/dL [facility] HCO3 [Moles/Vol] 21 mmol/L 21 - 32 mmol/L [facility] Interpretation and review of laboratory results Abnormal [facility] Potassium [Moles/Vol] 3.8 mmol/L 3.5 - 5.1 mmol/L [facility] Protein [Mass/Vol] 6.3 g/dL 6 - 8 g/dL [facility] Sodium [Moles/Vol] 139 mmol/L 135 - 145 mmol/L [facility] Urea nitrogen [Mass/Vol] 5 mg/dL Low 8 - 25 mg/dL [facility] Urea nitrogen/Creatinine [Mass ratio] 9.3 mg/mg Low [facility] BMPon 11-01-2019 Anion gap [Moles/Vol] 12 mmol/L 10 - 20 mmol/L [facility] Calcium [Mass/Vol] 9.5 mg/dL 8.4 - 10. 2 mg/dL [facility] Chloride [Moles/Vol] 106 mmol/L 98 - 10 8 mmol/L [facility] Creatinine [Mass/Vol] 0.80 mg/dL 0.40 - 1.10 [facility] GFR/1.73 sq M predicted among non-blacks MDRD (S/P/Bld) [Vol rate/Area] The eGFR should be used for monitoring renal function only and not for medication dosing. [facility] GFR/1.73 sq M.predicted CKD-EPI (S/P/Bld) [Vol rate/Area] 101 >=60 mL/min/1.73 m2 [facility] Glucose [Mass/Vol] 111 mg/dL High 65 - 99 mg/dL [facility] HCO3 [Moles/Vol] 25 mmol/L 21 - 32 mmol/L [facility] Interpretation and review of laboratory results Abnormal [facility] Potassium [Moles/Vol] 4.2 mmol/L 3.5 - 5.1 mmol/L [facility] Sodium [Moles/Vol] 139 mmol/L 135 - 145 mmol/L [facility] Urea nitrogen [Mass/Vol] 10 mg/dL 8 - 25 mg/dL [facility] Urea nitrogen/Creatinine [Mass ratio] 12.5 mg/mg [facility] CBC WITH AUTO DIFFERENTIALon 11-01-2019 Basophils (Bld) [#/Vol] 0.03 10*3/uL [facility] Basophils/100 WBC (Bld) 0.4 % [facility] Eosinophils (Bld) [#/Vol] 0.12 10*3/uL [facility] Eosinophils/100 WBC (Bld) 1.8 % [facility] Erythrocyte distribution width (RBC) [Entitic vol] 13.1 % 11.6 - 14.8 % [facility] Hematocrit (Bld) [Volume fraction] 36.4 % 36 - 46 % [facility] Hemoglobin (Bld) [Mass/Vol] 11.8 g/dL Low 12 - 16 g/dL [facility] Immature granulocytes (Bld) [#/Vol] 0.01 10*3/uL [facility] Immature granulocytes/100 WBC (Bld) 0.10 % [facility] Comment on above: The IG parameter is the percentage of metamyelocytes, myelocytes and promyelocytes. An immature granulocyte count (IG) of 1% or more suggests the possibility of infection, an IG count of 3% is very likely related to an infection. Interpretation and review of laboratory results Abnormal [facility] Lymphocytes (Bld) [#/Vol] 1.52 10*3/uL [facility] Lymphocytes/100 WBC (Bld) 22.6 % [facility] MCH (RBC) [Entitic mass] 27.3 pg 26 - 34 pg [facility] MCHC (RBC) [Mass/Vol] 32.4 g/dL 31 - 37 g/dL [facility] MCV (RBC) [Entitic vol] 84.3 fL 80 - 100 fL [facility] Monocytes (Bld) [#/Vol] 0.53 10*3/uL [facility] Monocytes/100 WBC (Bld) 7.9 % [facility] Neutrophils (Bld) [#/Vol] 4.51 10*3/uL [facility] Neutrophils/100 WBC (Bld) 67.2 % [facility] Nucleated RBC (Bld) [#/Vol] 0.00 10*3/uL [facility] Nucleated RBC/100 WBC (Bld) [Ratio] 0.0 % [facility] Platelet mean volume (Bld) [Entitic vol] 9.1 fL Low 9.4 - 12.4 fL [facility] Platelets (Bld) [#/Vol] 194 10*3/uL [facility] RBC (Bld) [#/Vol] 4.32 10*6/uL [facility] WBC (Bld) [#/Vol] 6.72 10*3/uL [facility] COVID-19, Molecularon 2019 Interpretation and review of laboratory results Normal [facility] SARS-CoV-2 Not Detected Not Detected [facility] Comment on above: This test was perfor med under the FDA's Emergency Use Authorization (EUA). Testing was performed using the [employer] ID NOW COVID-19 assay on the ID NOW platform. This test has not been approved for use in asymptomatic patients and its performance in this patient population has not been evaluated. Negative results do not rule out the presence of SARS-CoV-2/COVID-19. Fact sheets for the EUA can be found at the following links: For Healthcare Providers: https://www.fda.gov/media/041775/download For Patients: https://www.fda.gov/media/797356/download ECG 12-LEADon 11-01-2019 Atrial Rate 75 BPM [facility] P [place] 54 degrees [facility] P-R Interval 120 ms [facility] Q-T Interval 376 ms [facility] QRS Duration 82 ms [facility] QTC Calculation (Bezet) 419 ms [facility] R [place] 62 degrees [facility] T [place] 39 degrees [facility] Ventricular Rate 75 BPM [facility] Normal sinus rhythm Normal ECG Confirmed by Gordon Gardner ([id number]) on 11/01/2019 11:55:16 AM [facility] Otheron 11-01-2019 Extra Tube Hold for add-ons. [facility] Comment on above: Auto resulted. POC Glucoseon 11-01-2019 Glucose [Mass/Vol] 77 mg/dL 65 - 99 mg/dL [facility] Interpretation and review of laboratory results Normal [facility] TISSUE EXAMon 11-01-2019 Case Report Surgical Pathology Report Case: [id number] Authorizing Provider: Yan Zuñiga MD Collected: 10/31/2019 01:07 PM Ordering Location: [facility] Received: 10/31/2019 01:28 PM Hospital Periop Pathologist: Molly Quintero MD Specimen: Kidney, Right [facility] Clinical information g5rbrMGwUHMnl8acIUY mbGF cZdYbLcInNnHlIeq4YDDzmz O4Few2MCLpSRmbeT7fHAZnT KtcC9uldmGxeGRgMODiRUq9 vU2giIvutV3mLiEwFrToHLM IEPVlka8dxTCcaFUjjYAyDh IwLjBccGFyIH0= [facility] Pathology report final diagnosis Narrative j2wxgCNlYLSzyGUoOiRyFWE hRLVlb3viPGLkoAEnCoXlMw NcZnRuYmpcdWMxXGRlZmYwe 3son056fBUzp0haLJZgCaP9 uNRhRKZefSYfR721LTYsZKm qv8nze5PbXXYikCAff3E6KX JBemofjPu1hLhfZ87vq0Z9F tqlE3nqSWCpMKbuUMWcXQio sXOfHQE4YUJvSOO4SWhjvdA yjkQ4BNtaiRFrHdR7TIs8s3 ludZvqHGOoIGB5d6igQPztr vUmXS8gec8fiKr1l4fdarCw BAMcIICjmBOCXDWfG4DhfXu fYs5qbZt3lLbfTfovMVZ6Em p3LH0ktd53ojj2kClvHADhw uipIfT9LYjeCNXrgrdrCUy3 MFxtYXJnbDcyMFxtYXJncjc pVZboCXShpGK7ZQSeuLKuU9 PyXXJtPChbQJSrdcr5JiZbK q2wjJSshODndc5nxs66WSC9 v9AphCkqIJX0SEJ5BhXcJt9 biUZpSKOuWS0qJmLmwXJqUY Mojj82gWfiTYwrflBstM7iT hNtEXPdoFJzDHIzCHVrA9ok LlZjsoFwA4fxA5VcSBFbYMZ wUKUuNjAxvtMrk7Qpk7AzhL OpzCs1b2ysRSDrBEJpoCdht 5xjUCI6BVIkO7Z1kDUqb0jx CZbvOZLppPU5zigeCYynGGT cvvV2gjhdLZzfTGYucPN7xp R3WEJctQXiH4EwaU6pBULyM VazHOCzjbp8KsQlEm5wxLNo xOWws3OjyCBoQYpzU04oj05 0HAFlunQnX3mvoSPabodhsC FpblxmMFxmczIwXHBhcmRcc 3WhQSSxXAO8UIabZVlpqDNw ECJzqMcfy8bqN7PwmSDmUKJ sYWluXGYwXGZzMjBccGxhaW 5nNqBrTvWrXTqeXA8qYPPsJ 1qgtPJaGAJeVPQdD3mdWsGa nB4tuHydQOzgReIoKaHxLKo iXHBhclxwYXJkXHNzcGFyYW H5uRUpeaUlzKimoTqzwZ1qM jBcZnMyMFxwbGFpblxmMVxm nmCjTEemxzmvAUTfZXjsJ3w uDtXmZQNicElgXRfst5FtTP YxXGNmMVxmczIyXGIgVXJpb qDbpEIwn3tcZFF7uS1rJOJ8 a1ByjRNdi045WF30x8rtlRM pblxmMVxmczIyXGxhbmcxMD JpFHogD9mtPaNsQBBvnSnuM Hmkt2DvINCqIKKsSYfbfdIp XSf7brBlBPWhYbwxuBIvlly mMVxmczIyXGxhbmcxMDMzXG ihA4vaIhFcXMNdkOkoIJuwn 2NoXGYxXGNmMVxmczIyXGIg NIfznOndKWRmhzrtx3CscYd 0dGVkIGZvciBjaGVtaWNhbC LsrhOvrYVomlUyO2Wii0YnE BxzoBDdelr2CQ5kaQuneQ9f ZjBcZnMyMFxwYXJccGFyfQ= = [facility] Pathology report gross observation Narrative e3stkUEaBBTupAFnCkUzHTK oNGFac0ooIXDvjAHoCwTvCf NcZnRuYmpcdWMxXGRlZmYwe 3yoa517hGFpi9jaSSFsTdQ2 iONlKDKiiENaJ930MMZoFDp mfd7zEI6qQBSqfCAqr4I8DX CCzenbvGe3g9jtZeCrTgV5k JGnSOkqE5syhkCdoOIwCLSp ZYx8xA15NRKufP7xsKOpMEk yptDtJSzqmaRtxvChLln0II JyK6usWNBaCBWqJ4BtKB4pU RQvSys6TYX7XYC5EUFdXZXm GYvhxnTepnJ9QVqnkMJcTqC 6LNn2o5dzbDqbUHCoYZK0q1 fgEFkoshEpGN0lpf7xnHw7k 1xjczEgRGVmYXVsdCBQYXJh Z6FflNypOc0lsMe7iVdhLal vXHH6Huy1HZ5mxw35uvn4rK inVAZsmiwcVjD1UBxlECUty pqbDWi0FUbhJGIduJabQEau PSPngjamQXxuHWXvkCG3HPA gaJKoY2EbZXKaJApxMTFvnj q9JeZqRc9byYAqbNTpdz7gp n92ODR2d3AnrQbhERC4PWD6 NiFsHv1acSYfPKWyGM0bYtS tlFVqOXXrvf19gPobGVdbej IbxT2gQoFfZTYmgPWkZJEyV LCiF2jjJhSefdKmY7dtH4Bc EKAoUZCuFNWuPyBwpnWxa2N hv4YggKIwrXb6k0moXKJoCO MziCloj2atMYC4MBEiL9H8v GFow6fzDUwiFSUllZI7xgkb TOvmKJYkqhY8houuDSfkXFZ leRS5msN4OECqmYKwE4CjxA 0qISQzOXoxVFNvuwa7GgAgB a7cjXNhgOKvx2GobYAnYPzp U83gv422VEFiaaXlU6cduYC pblxwbGFpblxmMFxmczIwXH FsXHBsYWluXGYwXGZzMjBcc TdfdZ4hLxYdJuNyZVyiLG5e GCBhH9qozVOxUSVxJMWwO4n xFoNnnX2lsQjxXEmnFkLnAk MyMFxsdHJjaCBSZWNlaXZlZ CBmcmVzaCBsYWJlbGVkICJc kVoanS7vUmUwJoZwIYupYV0 qPYHhV2idzKGvFMMuMCZrY2 upEhEjxE8adDmxKdruYcKiL rKgCOyhdp83HWY6k2faxKCv ZRurIralrHDhijJ8GBvUFFC FCHbRRsGaRX1bEJgXRxzCJX dJTnwzODAwMXwwfERCTElOS 1c3YPRUMQ6eCMtmXhq3MOj1 t5qmyPFga4n6JMtoIDT6fMh wbGFpblxmMlxmczIwXGxhbm clGKRiLZtnK6wtMyChIMGim LdnXhcvb1BdLGBjKAFtYSsf vcOuUXDdf4OnQ7AoHjOmTrb eFBHxuVWuHBidlJhkbA6dAb KtVuPdNVxpIQ2uFYIzA3wvl VTsICSkWWQuP3zsNpMkwJ3y aFxmMlxjZjFcZnMyMFxwcm9 5ZBE9n8zhcFHbDHdtFbjicJ QpshY5XYaKZKLQQHqZTaDtE P2gIXqPKgdDHjQ9MgeqRVO6 OZyPBvmIBlw8wMLLPQjgOrd iKCO6rDR0vGruUkbsvsAxzD MaKyKdfT8zoTydnA6qCzQgT dOvOTdhGB0mHMRdS3zsgIKa TQGsXWOrI2gwMlBooQ2yoQb mMVxjZjFcZnMyMFxsdHJjaC OvOZRvYLOnOJZjW17dwPAwG KZkrYmeiH6zAwDfKeOtAPDe iWgvsLXtwFNpYHecN8PrG4Y iwBZtCc7tKEWwFY8tJ9CdVA XyVEc7i9dvKWRmQYgvRHQdK GZzMjBcbGFuZzEwMzNcaGlj ePqmIQvhFrZzOTFnBTdlV9s eZlQyT9TtMNAoIkKobMIhP7 ggIlxwbGFpblxmMlxmczIwI CBpcyBvbmUgdGFuIGNhbGN1 gORbLICmNaHoZ17lpE7xL6I jDIJrg4AhKVlhSK4gtR2pVv AgVGhlIHNwZWNpbWVuIGlzI IPcqpOrDc3iBMGfEL5jC3Zp HCGzKLt2c5jvLgZdM5Pxw7D ap40iiH7dFUKynDLbPVVfaq HEEg9VSb0rrrfqNVHauyawN FXjL3Hlk5KsAHwsiVpjGTBd n91njCZnZj1khMCoIUJ1YwC OoYDptbByQRWcXCW1pH7uxJ N0PYwbh4YgeXKjHE8eAfWiB GAVbFLptOHqR0xoXtf3SSNs Ko1dTOHOa9s5bGZ7alxuC7f gNDMyMTRccGFyfQ== [facility] URINALYSISon 11-01-2019 Bacteria Auto Ql (U) Few Abnormal None Seen /hpf [facility] Bilirubin Ql (U) Negative Negative [facility] Clarity Refractometry automated (U) Cloudy Abnormal Clear [facility] Color (U) Dark Red Abnormal Colorless, Yellow [facility] Glucose Auto test strip (U) [Mass/Vol] Negative Negative mg/dL [facility] Hemoglobin Auto test strip Ql (U) Large Abnormal Negative [facility] Interpretation and review of laboratory results Abnormal [facility] Ketones (U) [Mass/Vol] Negative Negative mg/dL [facility] Leukocyte esterase Auto test strip Ql (U) Small Abnormal Negative [facility] Mucus Auto (Urine sed) [#/Area] Many Abnormal None Seen, Rare /lpf [facility] Nitrite Auto test strip Ql (U) Negative Negative [facility] pH (U) 6.0 [pH] [facility] Protein (U) [Mass/Vol] 100 Abnormal Negative mg/dL [facility] RBC Auto (Urine sed) [#/Area] >180 High [facility] Specific gravity (U) [Rel density] 1.014 [facility] Urobilinogen (U) [Mass/Vol] <2.0 <2.0 mg/dL [facility] WBC Auto (Urine sed) [#/Area] 95 High [facility] Microscopic examinat ion is performed on all urinalysis samples and only positive findings are reported. The test for blood on the chemical analytic portion of urinalysis may also be positive due to hemoglobinuria and myoglobinuria and if red blood cells are present they are quantified by microscopic examination. [facility] Urine Pregnancyon 11-01-2019 HCG ( test) Ql (U) Negative Negative [facility] Interpretation and review of laboratory results Normal [facility] XR OR RETROGRADE PYELOGRAMon 11-01-2019 As above. [employer] Workstation ID: [id number] [facility] EXAMINATION: XR OR RETROGRADE PYELOGRAM HISTORY: ORDERING SYSTEM PROVIDED HISTORY: n20.0, TECHNOLOGIST PROVIDED HISTORY: Illness/Other Reason for exam: n20.0 Encounter Type: Unknown Additional signs and symptoms: Fluoro dose in mGy: 1.72 ORDERING SYSTEM PROVIDED DIAGNOSIS CODES: N20.0 Nephrolithiasis N20.0 Nephrolithiasis COMPARISON: None. TECHNIQUE: Fluoro Dose Ka,r mGy: Fluoro dose in Ka,r mGy: 1.72 FINDINGS: A filling defect is noted in the proximal ureteropelvic junction which may be artifactual. No hydronephrosis. [facility] Interface, Rad In Fu ji Speechq - 11/01/2019 10:47 AM EDT EXAMINATION: XR OR RETROGRADE PYELOGRAM HISTORY: ORDERING SYSTEM PROVIDED HISTORY: n20.0, TECHNOLOGIST PROVIDED HISTORY: Illness/Other Reason for exam: n20.0 Encounter Type: Unknown Additional signs and symptoms: Fluoro dose in mGy: 1.72 ORDERING SYSTEM PROVIDED DIAGNOSIS CODES: N20.0 Nephrolithiasis N20.0 Nephrolithiasis COMPARISON: None. TECHNIQUE: Fluoro Dose Ka,r mGy: Fluoro dose in Ka,r mGy: 1.72 FINDINGS: A filling defect is noted in the proximal ureteropelvic junction which may be artifactual. No hydronephrosis. IMPRESSION: As above. [employer] - [employer] Workstation ID: [id number] [facility] CBC W Auto Differential pane l (Bld)on 10-31-2019 Basophils (Bld) [#/Vol] 0.00 thou/mcL Normal 0.00-0.20 [facility] Comment on above: Performed By: #### 5 7021-8 ####[facility], [address], [place]. Basophils/100 WBC (Bld) 0.3 % Normal 0.0-2.0 [facility] Comment on above: Performed By: #### 5 7021-8 ####[facility], [address], [place]. Eosinophils (Bld) [#/Vol] 0.10 thou/mcL Normal 0.00-0.70 [facility] Comment on above: Performed By: #### 5 7021-8 ####[facility], [address], [place]. Eosinophils/100 WBC (Bld) 1.0 % Normal 0.0-7.0 [facility] Comment on above: Performed By: #### 5 7021-8 ####[facility], [address], [place]. Erythrocyte distribution width (RBC) [Entitic vol] 13.2 % Normal 11.0-14.8 [facility] Comment on above: Performed By: #### 5 7021-8 ####[facility], [address], [place]. Hematocrit (Bld) [Volume fraction] 36.7 % Normal 35.0-45.0 [facility] Comment on above: Performed By: #### 5 7021-8 ####[facility], [address], [place]. Hemoglobin (Bld) [Mass/Vol] 12.4 g/dL Normal 12.0-16.0 [facility] Comment on above: Performed By: #### 70-8 ####[facility], [address], [place]. Lymphocytes (Bld) [#/Vol] 1.70 thou/mcL Normal 1.00-4.80 [facility] Comment on above: Performed By: #### 70-8 ####[facility], [facility] [place]. Lymphocytes/100 WBC (Bld) 22.2 % Normal 22.0-44.0 [facility] Comment on above: Performed By: #### 70-8 ####[facility], [facility] [address], [place]. MCH (RBC) [Entitic mass] 28.3 Picograms Normal 27.0-34.0 [facility] Comment on above: Performed By: #### 70-8 ####[facility], [address], [place]. MCHC (RBC) [Mass/Vol] 33.7 g/dL Normal 32.0-36.0 [facility] Comment on above: Performed By: #### 70-8 ####[facility], [address], [place]. MCV (RBC) [Entitic vol] 83.9 fL Normal 80.0-97.0 [facility] Comment on above: Performed By: #### 70-8 ####[facility], [address], [place]. Monocytes (Bld) [#/Vol] 0.60 thou/mcL Normal 0.00-0.90 [facility] Comment on above: Performed By: #### 5 70-8 ####[facility], [address] [place], [place]. Monocytes/100 WBC (Bld) 7.3 % Normal 0.0-12.0 [facility] Comment on above: Performed By: #### 70-8 ####[facility], [address] [place], [place]. Neutrophils (Bld) [#/Vol] 5.40 thou/mcL Normal 1.80-7.70 [facility] Comment on above: Performed By: #### 70-8 ####[facility], [address] [place], [place]. Neutrophils/100 WBC (Bld) 69.2 % Normal 40.0-70.0 [facility] Comment on above: Performed By: #### 70-8 ####[facility], [address] [place], [place]. Platelet mean volume (Bld) [Entitic vol] 7.3 fL Normal 6.2-12.1 [facility] Comment on above: Performed By: #### 70-8 ####[facility], [address] [place], [place]. Platelets (Bld) [#/Vol] 222 thou/mcL Normal 142-424 [facility] Comment on above: Performed By: #### 7021-8 ####[facility], [address] [place], [place]. RBC (Bld) [#/Vol] 4.37 million/mcL Normal 3.80-5.10 [facility] Comment on above: Performed By: #### 70-8 ####[facility], [address] [place], [place]. WBC (Bld) [#/Vol] 7.7 thou/mcL Normal 4.6-10.2 [facility] Comment on above: Performed By: #### 5 7021-8 ####[facility], [address] [place], [place] CT Abd and Pelvis w/o Contra ston 10-31-2019 CT Abd and Pelvis w/o Contrast Normal [facility] Comprehensive metabolic 2000 panelon 10-31-2019 Albumin [Mass/Vol] 4.1 g/dL Normal 3.5-4.8 [facility] Comment on above: Performed By: #### 2 4323-8, 3040-3, 87427-4q8, 52288-0 ####[facility], [address] [place], [place]. ALP [Catalytic activity/Vol] 31 Units/L Low 32-91 [facility] Comment on above: Performed By: #### 2 4323-8, 3040-3, 89245-3g0, 74299-8 ####[facility], [address] [place], [place]. ALT [Catalytic activity/Vol] 16 Units/L Normal 14-63 [facility] Comment on above: Performed By: #### 2 4323-8, 3040-3, 17674-9p9, 85327-0 ####[facility], [address] [place], [place]. Anion gap [Moles/Vol] 11.0 mmol/L Normal 6.0-18.0 [facility] Comment on above: Performed By: #### 2 4323-8, 3040-3, 36350-4j0, 32947-7 ####[facility], [address] [place], [place]. AST [Catalytic activity/Vol] 17 Units/L Normal 15-41 [facility] Comment on above: Performed By: #### 2 4323-8, 3040-3, 88566-6a4, 86683-9 ####[facility], [address] [place], [place]. Bilirubin [Mass/Vol] 0.4 mg/dL Normal 0.3-1.2 [facility] Comment on above: Performed By: #### 2 4323-8, 3040-3, 48069-9s6, 11329-9 ####[facility], [address], [place]. Calcium [Mass/Vol] 9.2 mg/dL Normal 8.9-10.3 [facility] Comment on above: Performed By: #### 2 4323-8, 3040-3, 54507-6n4, 91195-8 ####[facility], [address] [place], [place]. Chloride [Moles/Vol] 103 mmol/L Normal 98-107 [facility] Comment on above: Performed By: #### 2 4323-8, 3040-3, 94997-7d8, 97450-1 ####[facility], [address] [place], [place]. CO2 [Moles/Vol] 24 mmol/L Normal 22-32 [facility] Comment on above: Performed By: #### 2 4323-8, 3040-3, 16995-5c5, 79263-0 ####[facility], [address], [place]. Creatinine [Mass/Vol] 0.82 mg/dL Normal 0.66-1.30 [facility] Comment on above: Performed By: #### 2 4323-8, 3040-3, 15965-2w7, 70381-8 ####MT[facility]enoON [facility], [address], [place]. Glucose [Mass/Vol] 120 mg/dL High 70-99 [facility] Comment on above: Result Comment: U pdated ADA Reference RangeA normal fasting glucose concentration is less than 100 mg/dL.An impaired fasting glucose concentration is 100-125 mg/dL. Aprovisional diagnosis of diabetes mellitus can be made when afasting glucose concentration is greater than 125 mg/dL. Performed By: #### 2 4323-8, 3040-3, 50595-4l8, 51523-0 ####[facility], [address], [place]. Potassium [Moles/Vol] 3.3 mmol/L Low 3.6-5.1 [facility] Comment on above: Performed By: #### 2 4323-8, 3040-3, 22999-9b2, 88444-1 ####[facility], [address], [place]. Protein [Mass/Vol] 6.7 g/dL Normal 6.1-7.9 [facility] Comment on above: Performed By: #### 2 4323-8, 3040-3, 16040-5i9, 16852-7 ####[facility], [address], [place]. Sodium [Moles/Vol] 138 mmol/L Normal 136-145 [facility] Comment on above: Performed By: #### 2 4323-8, 3040-3, 96686-1n4, 76533-9 ####[facility], [address] [place], [place]. Urea nitrogen (BldV) [Mass/Vol] 7 mg/dL Low 8-20 [facility] Comment on above: Performed By: #### 2 4323-8, 3040-3, 33963-6h2, 04334-0 ####[facility], [address], [place]. ED Pat Eduon 10-31-[address] [facility] GFR/1.73 sq M.predicted (S/P /Bld) [Vol rate/Area]on 10-31-2019 GFR/1.73 sq M.predicted among blacks MDRD (S/P/Bld) [Vol rate/Area] mL/min/{1.73_m2} Normal [facility] Comment on above: Result Comment: The MDRD equation has not been validated for those over 70 years, women, patients with serious co-morbid conditions, or with extremes of bodysize, muscle mass of nutritional status. Performed By: #### 2 4323-8, 3040-3, 35332-6f1, 07417-4 ####[facility], [address], [place]. GFRbbon 10-31-2019 GFR/1.73 sq M.predicted among non-blacks MDRD (S/P/Bld) [Vol rate/Area] mL/min/{1.73_m2} Normal [facility] Comment on above: Performed By: #### 2 4323-8, 3040-3, 83916-6d2, 92159-6 ####[facility], [address], [place]. Lipaseon 10-31-2019 Lipase [Catalytic activity/Vol] 30 Units/L Normal 22-51 [facility] Comment on above: Performed By: #### 2 4323-8, 3040-3, 44627-0x9, 82081-0 ####[facility], [address], [place]. Microscopic method Nom (U)on 10-31-2019 RBC LM.HPF (Urine sed) [#/Area] 76297 /[HPF] High 0-5 [facility] Comment on above: Performed By: #### 7 2375-9, 84022-7 ####[facility], [address], [place]. WBC LM.HPF (Urine sed) [#/Area] 235 /[HPF] High 0-5 [facility] Comment on above: Performed By: #### 7 2375-9, 67156-6 ####[facility], [address], [place]. POC , Urineon 10-30 Beta HCG ( test) Ql (U) Dilute urine specimens, as indicated by a low specific gravity (<1.010) may not contain sales representative girls' apparel levels of hCG. If is still suspected, a serum test or repeat urine test using a first morning urine specimen should be considered. [facility] HCG ( test) Ql (U) Negative Negative [facility] Interpretation and review of laboratory results Normal [facility] Pre-Arrival Formon 0 Pre-Arrival Form Normal [facility] Urinalysis complete W Reflex Culture panel (U)on 10-31-2019 Appearance (U) TURBID Abnormal CLEAR [facility] Comment on above: Performed By: #### 7 2375-9, 65297-8 ####[facility], [address], [place]. Bilirubin (U) [Mass/Vol] Negative Normal [facility] Comment on above: Performed By: #### 7 2375-9, 73476-6 ####[facility], [facility] [place], [place]. Color (U) RED Low YELLOW [facility] Comment on above: Performed By: #### 7 2375-9, 78201-1 ####[facility], [address] [place], [place]. Glucose Test strip (U) [Mass/Vol] 50MG/DL Abnormal NORMAL [facility] Comment on above: Performed By: #### 7 2375-9, 79678-3 ####[facility], [address] [facility], [place]. Hemoglobin Ql (U) 70/UL Abnormal NEGATIVE-N EGAT MCKENZIE [facility] Comment on above: Performed By: #### 7 2375-9, 54264-2 ####[facility], [address] [place], [place]. Ketones (U) [Mass/Vol] Negative Normal NEGATIVE-NEGAT MCKENZIE [facility] Comment on above: Performed By: #### 7 2375-9, 93365-7 ####[facility], [address] [place] [address]. Leukocyte esterase Test strip Ql (U) Negative Normal NEGATIVE-NEGAT MCKENZIE [facility] Comment on above: Performed By: #### 7 2375-9, 63802-0 ####[facility], [address] [place] [address]. Nitrite Test strip (U) [Mass/Vol] Negative Normal NEGATIVE-NEGAT MCKENZIE [facility] Comment on above: Performed By: #### 7 2375-, 76990-2 ####[facility], [address] [place] [address]. pH (U) 6.0 [pH] Normal 5.0-9.0 [facility] Comment on above: Performed By: #### Luly 2375-, 95467-0 ####[facility], [address] [place] [address]. Protein (U) [Mass/Vol] 100 mg/dL Abnormal NEGATIVE-NEGAT MCKENZIE [facility] Comment on above: Performed By: #### 7 2375-, 66172-9 ####[facility], [address] [place] [address]. Specific gravity (U) [Rel density] 1.015 Normal 1.005-1.035 [facility] Comment on above: Performed By: #### 7 2375-, 74044-2 ####[facility], [address] [place] [address]. Urobilinogen (U) [Mass/Vol] NORMAL Normal NORMAL [facility] Comment on above: Performed By: #### 7 2375-, 19658-5 ####[facility], [address], [place]. Basic metabolic 2000 panelon 10-27-2019 Anion gap [Moles/Vol] 8.0 mmol/L Normal 6.0-18.0 [facility] Comment on above: Performed By: #### 4 8642-3x1, 24323-7, 32619-3, 51642-4, 3040- 3, 62579-2 ####[facility], [address] [place]. Calcium [Mass/Vol] 9.3 mg/dL Normal 8.9-10.3 [facility] Comment on above: Performed By: #### 4 8642-3x1, 71805-9, 41977-7, 27749-7, 3040- 3, 86762-4 ####[facility], [address] [facility], [place]. Chloride [Moles/Vol] 108 mmol/L High 98-107 [facility] Comment on above: Performed By: #### 4 8642-3x1, 93186-7, 43667-3, 32430-0, 3040- 3, 88872-6 ####[facility], [address] [place], [place]. CO2 [Moles/Vol] 26 mmol/L Normal 22-32 [facility] Comment on above: Performed By: #### 4 8642-3x1, 58066-5, 72014-2, 92804-8, 3040- 3, 93330-3 ####[facility], [address] [place], [place]. Creatinine [Mass/Vol] 0.96 mg/dL Normal 0.66-1.30 [facility] Comment on above: Performed By: #### 4 8642-3x1, 40499-9, 00503-2, 52103-0, 3040- 3, 55727-9 ####[facility], [address]. Glucose [Mass/Vol] 99 mg/dL Normal 70-99 [facility] Comment on above: Result Comment: U pdated ADA Reference RangeA normal fasting glucose concentration is less than 100 mg/dL.An impaired fasting glucose concentration is 100-125 mg/dL. Aprovisional diagnosis of diabetes mellitus can be made when afasting glucose concentration is greater than 125 mg/dL. Performed By: #### 4 8642-3x1, 58920-5, 14119-1, 69825-9, 3040-3, 98333-0 ####[facility], [address], [place]. Potassium [Moles/Vol] 3.4 mmol/L Low 3.6-5.1 [facility] Comment on above: Performed By: #### 4 8642-3x1, 23129-6, 02516-2, 35238-9, 3040- 3, 65363-4 ####[facility], [address], [place]. Sodium [Moles/Vol] 142 mmol/L Normal 136-145 [facility] Comment on above: Performed By: #### 4 8642-3x1, 80150-4, 66336-9, 02676-7, 3040- 3, 81883-3 ####[facility], [address], [place]. Urea nitrogen (BldV) [Mass/Vol] 10 mg/dL Normal 8-20 [facility] Comment on above: Performed By: #### 4 8642-3x1, 79211-1, 31302-9, 63354-8, 3040- 3, 04946-1 ####[facility], [address], [place] CT Abd and Pelvis w/o Contra ston 10-27-2019 CT Abd and Pelvis w/o Contrast Normal [facility] GFR/1.73 sq M.predicted (S/P /Bld) [Vol rate/Area]on 10-27-2019 GFR/1.73 sq M.predicted among blacks MDRD (S/P/Bld) [Vol rate/Area] mL/min/{1.73_m2} Normal [facility] Comment on above: Result Comment: The MDRD equation has not been validated for those over 70 years, women, patients with serious co-morbid conditions, or with extremes of bodysize, muscle mass of nutritional status. Performed By: #### 4 8642-3x1, 36542-2, 64369-0, 80423-8, 3040-3, 76856-8 ####ANTHONY PAULA [facility], [address] [place], [place]. GFRbbon 10-27-2019 GFR/1.73 sq M.predicted among non-blacks MDRD (S/P/Bld) [Vol rate/Area] mL/min/{1.73_m2} Normal [facility] Comment on above: Performed By: #### 4 8642-3x1, 81298-4, 47065-5, 21249-6, 3040- 3, 91383-6 ####[facility], [address] [place], [place]. Hepatic function 2000 panelo 10-27-2019 Albumin [Mass/Vol] 4.3 g/dL Normal 3.5-4.8 [facility] Comment on above: Performed By: #### 4 8642-3x1, 08063-3, 27819-6, 51785-9, 3040- 3, 38528-8 ####ANTHONY A[facility]UIDO [facility], [address] [place], [place]. ALP [Catalytic activity/Vol] 36 Units/L Normal 32-91 [facility] Comment on above: Performed By: #### 4 8642-3x1, 68178-4, 61178-9, 87958-9, 3040- 3, 11066-2 ####[facility], [address] [place], [place]. ALT [Catalytic activity/Vol] 20 Units/L Normal 14-63 [facility] Comment on above: Performed By: #### 4 8642-3x1, 77878-4, 67498-5, 19554-3, 3040- 3, 10454-2 ####[facility], [address], [place]. AST [Catalytic activity/Vol] 16 Units/L Normal 15-41 [facility] Comment on above: Performed By: #### 4 8642-3x1, 06948-8, 86852-2, 76370-4, 3040- 3, 43646-4 ####[facility], [address] [place], [place]. Bilirubin [Mass/Vol] 0.2 mg/dL Low 0.3-1.2 [facility] Comment on above: Performed By: #### 4 8642-3x1, 73548-1, 54988-1, 93379-5, 3040- 3, 97025-4 ####[facility], [address] [place], [place]. Bilirubin.direct [Mass/Vol] 0.0 mg/dL Low 0.1-0.5 [facility] Comment on above: Performed By: #### 4 8642-3x1, 14346-3, 97461-7, 18918-1, 3040- 3, 42889-2 ####[facility], [address] [place], [place]. Bilirubin.indirect [Mass/Vol] 0.2 mg/dL Normal 0.0-1.0 [facility] Comment on above: Performed By: #### 4 8642-3x1, 83431-9, 98827-7, 38870-0, 3040- 3, 24543-6 ####[facility], [address] [place], [place]. Protein [Mass/Vol] 7.1 g/dL Normal 6.1-7.9 [facility] Comment on above: Performed By: #### 4 8642-3x1, 80896-6, 15553-6, 76913-6, 3040- 3, 29377-7 ####[facility], [address] [place], [place]. Lactate (Bld) [Mass/Vol]on 0 8-22-2020 Lactate [Moles/Vol] 0.7 mmol/L Normal 0.5-2.0 [facility] Comment on above: Performed By: #### 5 9032-3 ####[facility], [address] [place], [place]. Lipaseon 10-27-2019 Lipase [Catalytic activity/Vol] 32 Units/L Normal 22-51 [facility] Comment on above: Performed By: #### 4 8642-3x1, 50418-7, 31505-3, 22736-7, 3040- 3, 77819-8 ####[facility], [address], [place]. Magnesium Levelon 10-27-2019 Magnesium [Mass/Vol] 2.0 mg/dL Normal 1.8-2.5 [facility] Comment on above: Performed By: #### 4 8642-3x1, 79276-2, 88748-5, 98245-1, 3040- 3, 02348-0 ####[facility], [address] [facility] [place], [place]. Microscopic method Nom (U)on 10-27-2019 Epithelial cells.squamous LM.HPF (Urine sed) [#/Area] MANY Abnormal FEW/LPF [facility] Comment on above: Performed By: #### 7 2375-9, 77945-8 ####[facility], [address] [place], [place]. Mucus Ql (Urine sed) RARE Abnormal NONE/LPF [facility] Comment on above: Performed By: #### 7 2375-9, 05624-1 ####[facility], [address] RBC LM.HPF (Urine sed) [#/Area] 15 /[HPF] High 0-5 [facility] Comment on above: Performed By: #### 7 2375-9, 96190-8 ####[facility], [address] [place] [address]. WBC LM.HPF (Urine sed) [#/Area] 1 /[HPF] Normal 0-5 [facility] Comment on above: Performed By: #### 7 2375-9, 20663-3 ####[facility], [address] [place] [address]. Patient Summaryon 10-27-[address] [facility] Urinalysis complete W Reflex Culture panel (U)on 10-27-2019 Appearance (U) HAZY Abnormal CLEAR [facility] Comment on above: Performed By: #### 7 2375-9, 19335-3 ####ANTHONY [facility], [address] [place] [address]. Bilirubin (U) [Mass/Vol] Negative Normal NEGATIVE-NEGAT MCKENZIE [facility] Comment on above: Performed By: #### Luly 2375-, 62351-2 ####ANTHONY [facility], [address] [place] [address]. Color (U) YELLOW Normal YELLOW [facility] Comment on above: Performed By: #### 7 2375-9, 96120-3 ####AN[facility]ONY [facility], [address] [place] [address]. Glucose Test strip (U) [Mass/Vol] NORMAL Normal NORMAL [facility] Comment on above: Performed By: #### 7 2375-, 76573-6 ####[facility]ONY [facility], [address] [place] [address]. Hemoglobin Ql (U) 10/UL Abnormal NEGATIVE-N EGAT M[address] [facility] Comment on above: Performed By: #### 7 2375-, 74171-9 ####[facility]ONY [facility], [address] [place], [place]. Ketones (U) [Mass/Vol] 5 mg/dL Abnormal NEGATIVE-NEGAT MCKENZIE [facility] Comment on above: Performed By: #### Luly 2375-, 38253-7 ####[facility], [address] [place] [address]. Leukocyte esterase Test strip Ql (U) Negative Normal NEGATIVE-NEGAT [facility] Comment on above: Performed By: #### 7 2375-, 47234-7 ####[facility], [address] [place] [address]. Nitrite Test strip (U) [Mass/Vol] Negative Normal NEGATIVE-NEGAT [facility] Comment on above: Performed By: #### 7 2375-, 12943-4 ####[facility], [address] [place] [address]. pH (U) 7.0 [pH] Normal 5.0-9.0 [facility] Comment on above: Performed By: #### Luly 2375-, 63252-8 ####[facility], [address] [place] [address]. Protein (U) [Mass/Vol] 30 mg/dL Abnormal NEGATIVE-NEGAT [facility] Comment on above: Performed By: #### 7 2375-, 54701-7 ####[facility], [address] [place] [address]. Specific gravity (U) [Rel density] 1.017 Normal 1.005-1.035 [facility] Comment on above: Performed By: #### Luly 2375-, 24482-0 ####[facility], [address] [place] [address]. Urobilinogen (U) [Mass/Vol] NORMAL Normal NORMAL [facility] Comment on above: Performed By: #### 7 2375-, 91170-5 ####[facility], [address], [place]. CBC W Auto Differential pane l (Bld)on 10-26-2019 Basophils (Bld) [#/Vol] 0.00 thou/mcL Normal 0.00-0.20 [facility] Comment on above: Performed By: #### 5 7021-8 ####[facility], [facility] [place] Basophils/100 WBC (Bld) 0.3 % Normal 0.0-2.0 [facility] Comment on above: Performed By: #### 5 7021-8 ####[facility], [facility] [address] [place]. Eosinophils (Bld) [#/Vol] 0.00 thou/mcL Normal 0.00-0.70 [facility] Comment on above: Performed By: #### 5 7021-8 ####[facility], [facility] [place] Eosinophils/100 WBC (Bld) 0.3 % Normal 0.0-7.0 [facility] Comment on above: Performed By: #### 5 7021-8 ####[facility], [address] [place], [place] [address], [place]. Erythrocyte distribution width (RBC) [Entitic vol] 13.0 % Normal 11.0-14.8 [facility] Comment on above: Performed By: #### 5 7021-8 ####[facility], [facility] [place]. Hematocrit (Bld) [Volume fraction] 34.8 % Low 35.0-45.0 [facility] Comment on above: Performed By: #### 5 7021-8 ####[facility], [facility] [place] Hemoglobin (Bld) [Mass/Vol] 11.9 g/dL Low 12.0-16.0 [facility] Comment on above: Performed By: #### 5 7021-8 ####[facility], [facility] [address], [place]. Lymphocytes (Bld) [#/Vol] 1.20 thou/mcL Normal 1.00-4.80 [facility] Comment on above: Performed By: #### 5 7021-8 ####[facility], [address] [facility], [place]. Lymphocytes/100 WBC (Bld) 16.5 % Low 22.0-44.0 [facility] Comment on above: Performed By: #### 70-8 ####[facility], [address] [place] MCH (RBC) [Entitic mass] 28.3 Picograms Normal 27.0-34.0 [facility] Comment on above: Performed By: #### 70-8 ####[facility], [facility] MCHC (RBC) [Mass/Vol] 34.2 g/dL Normal 32.0-36.0 [facility] Comment on above: Performed By: #### 7021-8 ####[facility], [address] [facility] [place] MCV (RBC) [Entitic vol] 83.0 fL Normal 80.0-97.0 [facility] Comment on above: Performed By: #### 7021-8 ####[facility], [address] [facility] [place]. Monocytes (Bld) [#/Vol] 0.40 thou/mcL Normal 0.00-0.90 [facility] Comment on above: Performed By: #### 5 7021-8 ####[facility], [address] [place]. Monocytes/100 WBC (Bld) 5.6 % Normal 0.0-12.0 [facility] Comment on above: Performed By: #### 5 7021-8 ####[facility], [address], [place]. Neutrophils (Bld) [#/Vol] 5.80 thou/mcL Normal 1.80-7.70 [facility] Comment on above: Performed By: #### 5 7021-8 ####[facility], [address] [place], [place]. Neutrophils/100 WBC (Bld) 77.3 % High 40.0-70.0 [facility] Comment on above: Performed By: #### 5 7021-8 ####[facility], [address] [facility] [place], [place]. Platelet mean volume (Bld) [Entitic vol] 7.4 fL Normal 6.2-12.1 [facility] Comment on above: Performed By: #### 5 7021-8 ####[facility], [address] Platelets (Bld) [#/Vol] 226 thou/mcL Normal 142-424 [facility] Comment on above: Performed By: #### 5 7021-8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 Eosinophils (Bld) [#/Vol] 0.20 10*3/uL [facility] Eosinophils/100 WBC (Bld) 2.5 % [facility] Erythrocyte distribution width (RBC) [Entitic vol] 12.5 % 11.6 - 14.8 % [facility] Hematocrit (Bld) [Volume fraction] 38.4 % 36 - 46 % [facility] Hemoglobin (Bld) [Mass/Vol] 13.2 g/dL 12 - 16 g/dL [facility] Immature granulocytes (Bld) [#/Vol] 0.01 10*3/uL [facility] Immature granulocytes/100 WBC (Bld) 0.10 % [facility] Comment on above: The IG parameter is the percentage of metamyelocytes, myelocytes, and promyelocytes. Lymphocytes (Bld) [#/Vol] 2.62 10*3/uL [facility] Lymphocytes/100 WBC (Bld) 32.3 % [facility] MCH (RBC) [Entitic mass] 28.3 pg 26 - 34 pg [facility] MCHC (RBC) [Mass/Vol] 34.4 g/dL 31 - 37 g/dL [facility] MCV (RBC) [Entitic vol] 82.2 fL 80 - 100 fL [facility] Monocytes (Bld) [#/Vol] 0.68 10*3/uL [facility] Monocytes/100 WBC (Bld) 8.4 % [facility] Neutrophils (Bld) [#/Vol] 4.55 10*3/uL [facility] Neutrophils/100 WBC (Bld) 56.2 % [facility] Nucleated RBC (Bld) [#/Vol] 0.00 10*3/uL [facility] Nucleated RBC/100 WBC (Bld) [Ratio] 0.0 % [facility] Platelet mean volume (Bld) [Entitic vol] 9.9 fL 9 - 15.5 fL [facility] Platelets (Bld) [#/Vol] 231 10*3/uL [facility] RBC (Bld) [#/Vol] 4.67 10*6/uL [facility] WBC (Bld) [#/Vol] 8.10 10*3/uL [facility] Abdomen Pelvis With IV Co ntrast Onlyon 12-07-2018 Interface, Rad In Fu ji Speechq - 12/07/2018 10:47 PM EDT EXAMINATION: CT OF THE ABDOMEN AND PELVIS WITH CONTRAST 12/07/2018 TECHNIQUE: CT of the abdomen and pelvis was performed with the administration of intravenous contrast. Multiplanar reformatted images are provided for review. Dose modulation, iterative reconstruction, and/or weight based adjustment of the mA/kV was utilized to reduce the radiation dose to as low as reasonably achievable. COMPARISON: 01/09/2018 HISTORY: ORDERING SYSTEM PROVIDED HISTORY: Abdominal pain diarrhea; TECHNOLOGIST PROVIDED HISTORY: Illness/Other Acuity: Acute Reason for Exam: generalized abdominal pain x 2 weeks with diarrhea Type of Encounter: Initial Additional signs and symptoms: semi bloody stool FINDINGS: Lower Chest: Clear Organs: Gallbladder is contracted. The liver, spleen, left kidney, adrenal glands, pancreas are normal. There is a 3 mm calcification in the right kidney without obstruction GI/Bowel: There is a nonobstructed bowel gas pattern Pelvis: The bladder is unremarkable in appearance and the uterus is unremarkable in appearance. There is no evidence for free air or free fluid in the pelvis. Appendix is normal Peritoneum/Retroperiton eum: Negative for aneurysm Bones/Soft Tissues: Normal IMPRESSION: Stable right nephrocalcinosis without evidence for obstructive uropathy. Workstation ID: [id number] [facility] EXAMINATION: CT OF T ABDOMEN AND PELVIS WITH CONTRAST 12/07/2018 TECHNIQUE: CT of the abdomen and pelvis was performed with the administration of intravenous contrast. Multiplanar reformatted images are provided for review. Dose modulation, iterative reconstruction, and/or weight based adjustment of the mA/kV was utilized to reduce the radiation dose to as low as reasonably achievable. COMPARISON: 01/09/2018 HISTORY: ORDERING SYSTEM PROVIDED HISTORY: Abdominal pain diarrhea; TECHNOLOGIST PROVIDED HISTORY: Illness/Other Acuity: Acute Reason for Exam: generalized abdominal pain x 2 weeks with diarrhea Type of Encounter: Initial Additional signs and symptoms: semi bloody stool FINDINGS: Lower Chest: Clear Organs: Gallbladder is contracted. The liver, spleen, left kidney, adrenal glands, pancreas are normal. There is a 3 mm calcification in the right kidney without obstruction GI/Bowel: There is a nonobstructed bowel gas pattern Pelvis: The bladder is unremarkable in appearance and the uterus is unremarkable in appearance. There is no evidence for free air or free fluid in the pelvis. Appendix is normal Peritoneum/Retroperiton eum: Negative for aneurysm Bones/Soft Tissues: Normal [facility] Stable right nephrocalcinosis without evidence for obstructive uropathy. Workstation ID: [id number] [facility] Hepatic Function Panel (LFT) on 12-07-2018 Albumin [Mass/Vol] 4.6 g/dL 3.2 - 5.2 g/dL [facility] ALP [Catalytic activity/Vol] 46 U/L 40 - 140 U/L [facility] ALT [Catalytic activity/Vol] 15 U/L 0 - 40 U/L [facility] AST [Catalytic activity/Vol] 17 U/L 0 - 45 U/L [facility] Bilirubin [Mass/Vol] mg/dL 0 - 1.3 mg/dL [facility] Bilirubin.conjugated [Mass/Vol] mg/dL 0 - 0.4 mg/dL [facility] Interpretation and review of laboratory results Normal [facility] Protein [Mass/Vol] 7.7 g/dL 6 - 8 g/dL [facility] alth Lipaseon 12-07-2018 Interpretation and review of laboratory results Normal [facility] Lipase [Catalytic activity/Vol] 42 U/L 15 - 65 U/L [facility] POC Urine Pregnancyon 2018 HCG ( test) Ql (U) Negative Negative [facility] Internal Control Pass [facility] Interpretation and review of laboratory results Normal [facility] Specific gravity (U) [Rel density] [facility] URINALYSISon 12-07-2018 Bacteria Auto Ql (U) None Seen None Seen /hpf [facility] Bilirubin Ql (U) Negative Negative [facility] Clarity Refractometry automated (U) Clear Clear [facility] Color (U) Yellow Colorless, Yellow [facility] Epithelial cells.squamous Auto (Urine sed) [#/Area] 2 [facility] Glucose Auto test strip (U) [Mass/Vol] Negative Negative mg/dL [facility] Hemoglobin Auto test strip Ql (U) Small Abnormal Negative [facility] Interpretation and review of laboratory results Abnormal [facility] Ketones (U) [Mass/Vol] Negative Negative mg/dL [facility] Leukocyte esterase Auto test strip Ql (U) Negative Negative [facility] Mucus Auto (Urine sed) [#/Area] Rare None Seen, Rare /lpf [facility] Nitrite Auto test strip Ql (U) Negative Negative [facility] pH (U) 7.0 [pH] [facility] Protein (U) [Mass/Vol] Negative Negative mg/dL [facility] RBC Auto (Urine sed) [#/Area] 20 High [facility] Specific gravity (U) [Rel density] 1.026 High [facility] Urobilinogen (U) [Mass/Vol] <2.0 <2.0 mg/dL [facility] WBC Auto (Urine sed) [#/Area] 2 [facility] Microscopic examinat ion is performed on all urinalysis samples and only positive findings are reported. The test for blood on the chemical analytic portion of urinalysis may also be positive due to hemoglobinuria and myoglobinuria and if red blood cells are present they are quantified by microscopic examination. [facility] BMPon 04-30-2018 Anion gap molar conc 19 mmol/L 10 - 20 mmol/L [facility] Calcium mass conc 9.6 mg/dL 8.4 - 10.2 mg/dL [facility] Chloride molar conc 101 mmol/L 98 - 108 mmol/L [facility] Creatinine mass conc 0.80 mg/dL 0.4 - 1 .1 mg/dL [facility] GFR/1.73 sq M predicted among non-blacks MDRD vol rate/area (S/P/Bld) The eGFR should be used for monitoring renal function only and not for medication dosing. [facility] GFR/1.73 sq M.predicted CKD-EPI vol rate/area (S/P/Bld) 101 >=60 mL/min/1.73 m2 [facility] Glucose mass conc 91 mg/dL 65 - 99 mg/dL [facility] HCO3 molar conc 24 mmol/L 21 - 32 mmol/L [facility] Potassium molar conc 3.4 mmol/L Low 3.5 - 5 .1 mmol/L [facility] Sodium molar conc 141 mmol/L 135 - 145 mmol/L [facility] Urea nitrogen mass conc 11 mg/dL 8 - 25 mg/dL [facility] Urea nitrogen/Creatinine mass ratio 13.8 mg/mg [facility] CBC WITH AUTO DIFFERENTIALon 04-30-2018 Basophils #/vol (Bld) 0.03 10*3/uL [facility] Basophils/100 WBC (Bld) 0.4 % [facility] Eosinophils #/vol (Bld) 0.14 10*3/uL [facility] Eosinophils/100 WBC (Bld) 1.7 % [facility] Erythrocyte distribution width Entitic volume (RBC) 13.1 % 11.6 - 14.8 % [facility] Hematocrit Volume Fraction (Bld) 40.7 % 36 - 46 % [facility] Hemoglobin mass conc (Bld) 13.9 g/dL 12 - 16 g/dL [facility] Immature granulocytes #/vol (Bld) 0.02 10*3/uL [facility] Immature granulocytes/100 WBC (Bld) 0.20 % [facility] Comment on above: The IG parameter is the percentage of metamyelocytes, myelocytes, and promyelocytes. Lymphocytes #/vol (Bld) 2.01 10*3/uL [facility] Lymphocytes/100 WBC (Bld) 24.4 % [facility] MCH Entitic mass (RBC) 28.4 pg 26 - 34 pg [facility] MCHC mass conc (RBC) 34.2 g/dL 31 - 37 g/dL [facility] MCV Entitic volume (RBC) 83.1 fL 80 - 100 fL [facility] Monocytes #/vol (Bld) 0.59 10*3/uL [facility] Monocytes/100 WBC (Bld) 7.2 % [facility] Neutrophils #/vol (Bld) 5.44 10*3/uL [facility] Neutrophils/100 WBC (Bld) 66.1 % [facility] Nucleated RBC #/vol (Bld) 0.00 10*3/uL [facility] Nucleated RBC/100 WBC Ratio (Bld) 0.0 % [facility] Platelet mean volume Entitic volume (Bld) 9.9 fL 9 - 15.5 fL [facility] Platelets #/vol (Bld) 264 10*3/uL [facility] RBC #/vol (Bld) 4.90 10*6/uL [facility] W[facility] #/vol (Bld) 8.23 10*3/uL [facility] DRUGS OF ABUSE SCREEN, URINE on 04-30-2018 Amphetamines Ql (U) None Detected None Detected [facility] Comment on above: Urine Amphetamine Cutoff: < 1000 ng/mL = None Detected Barbiturates Screen Ql (U) None Detected None Detected [facility] Comment on above: Urine Barbiturates Cutoff: < 200 ng/mL = None Detected Benzodiazepines Ql (U) None Detected None Detected [facility] Comment on above: Urine Benzodiazepine Cutoff: < 300 ng/mL = None Detected Cannabinoids Screen Ql (U) None Detected None Detected [facility] Comment on above: Urine Cannabinoids Cutoff: < 50 ng/mL = None Detected Cocaine Ql (U) None Detected None Detected [facility] Comment on above: Urine Cocaine Cutoff: < 300 ng/mL = None Detected Interpretation and review of laboratory results Normal [facility] Methadone Screen Ql (U) None Detected None Detected [facility] Comment on above: Urine Methadone Cutoff: < 300 ng/mL = None Detected Opiates Screen Ql (U) None Detected None Detected [facility] Comment on above: Urine Opiates Cutoff: < 300 ng/mL = None Detected Oxycodone Ql (U) None Detected None Detected [facility] Comment on above: Urine Oxycodone Cutoff: < 100 ng/mL = None Detected Screen results shoul d be used for treatment purposes only. [facility] Hepatic Function Panel (LFT) on 04-30-2018 Albumin mass conc 5.2 g/dL 3.2 - 5.2 g/dL [facility] ALP enzyme act/vol 46 U/L 40 - 140 U/L [facility] ALT enzyme act/vol 21 U/L 0 - 40 U/L [facility] alth AST enzyme act/vol 19 U/L 0 - 45 U/L [facility]th Bilirubin mass conc 0.2 mg/dL 0 - 1.3 mg/dL [facility] Bilirubin.conjugated mass conc mg/dL 0 - 0.4 mg/dL [facility] Protein mass conc 8.5 g/dL High 6 - 8 g/dL [facility] Lipaseon 04-30-2018 Interpretation and review of laboratory results Normal [facility] Lipase enzyme act/vol 31 U/L 15 - 65 U/L [facility] Otheron 04-30-2018 Extra Tube Hold for add-ons. [facility] Comment on above: Auto resulted. Interpretation and review of laboratory results Abnormal [facility] POC Urine Pregnancyon 2018 HCG ( test) Ql (U) Negative Negative [facility] Internal Control Pass [facility] Interpretation and review of laboratory results Normal [facility] Specific gravity Relative Density (U) [facility] URINALYSISon 04-30-2018 Bacteria Auto Ql (U) None Seen None Seen /hpf [facility] Bilirubin Ql (U) Negative Negative [facility] th Clarity Refractometry automated Nom (U) Hazy Abnormal Clear [facility] Color Nom (U) Yellow Colorless, Yellow [facility] Epithelial cells.squamous Auto #/area (Urine sed) 5 High [facility] Glucose Automated test strip mass conc (U) Negative Negative mg/dL [facility] Hemoglobin Automated test strip Ql (U) Small Abnormal Negative [facility] Interpretation and review of laboratory results Abnormal [facility] Ketones mass conc (U) Negative Negative mg/dL [facility] Leukocyte esterase Automated test strip Ql (U) Negative Negative [facility] Mucus Auto #/area (Urine sed) Rare None Seen, Rare /lpf [facility] Nitrite Automated test strip Ql (U) Negative Negative [facility] pH (U) 8.0 [pH] High [facility] Protein mass conc (U) Negative Negative mg/dL [facility] RBC Auto #/area (Urine sed) 11 High [facility] Specific gravity Relative Density (U) 1.019 [facility] Urobilinogen mass conc (U) <2.0 <2.0 mg/dL [facility] Microscopic examinat ion is performed on all urinalysis samples and only positive findings are reported. The test for blood on the chemical analytic portion of urinalysis may also be positive due to hemoglobinuria and myoglobinuria and if red blood cells are present they are quantified by microscopic examination. [facility] BMPon 03-30-2018 Anion gap molar conc 16 mmol/L 10 - 20 mmol/L [facility] Calcium mass conc 9.9 mg/dL 8.4 - 10.2 mg/dL [facility] Chloride molar conc 105 mmol/L 98 - 108 mmol/L [facility] Creatinine mass conc 0.79 mg/dL 0.4 - 1 .1 mg/dL [facility] GFR/1.73 sq M predicted among non-blacks MDRD vol rate/area (S/P/Bld) The eGFR should be used for monitoring renal function only and not for medication dosing. [facility] GFR/1.73 sq M.predicted CKD-EPI vol rate/area (S/P/Bld) 103 >=60 mL/min/1.73 m2 [facility] Glucose mass conc 97 mg/dL 65 - 99 mg/dL [facility] HCO3 molar conc 27 mmol/L 21 - 32 mmol/L [facility] Potassium molar conc 4.4 mmol/L 3.5 - 5 .1 mmol/L [facility] Sodium molar conc 144 mmol/L 135 - 145 mmol/L [facility] Urea nitrogen mass conc 15 mg/dL 8 - 25 mg/dL [facility] Urea nitrogen/Creatinine mass ratio 19.0 mg/mg [facility] CBC WITH AUTO DIFFERENTIALon 03-30-2018 Basophils #/vol (Bld) 0.04 10*3/uL [facility] Basophils/100 WBC (Bld) 0.4 % [facility] Eosinophils #/vol (Bld) 0.31 10*3/uL [facility] Eosinophils/100 WBC (Bld) 3.3 % [facility] Erythrocyte distribution width Entitic volume (RBC) 13.2 % 11.6 - 14.8 % [facility] Hematocrit Volume Fraction (Bld) 39.2 % 36 - 46 % [facility] Hemoglobin mass conc (Bld) 12.9 g/dL 12 - 16 g/dL [facility] Immature granulocytes #/vol (Bld) 0.02 10*3/uL [facility] Immature granulocytes/100 WBC (Bld) 0.20 % [facility] Comment on above: The IG parameter is the percentage of metamyelocytes, myelocytes, and promyelocytes. Lymphocytes #/vol (Bld) 1.66 10*3/uL [facility] Lymphocytes/100 WBC (Bld) 17.6 % [facility] MCH Entitic mass (RBC) 27.6 pg 26 - 34 pg [facility] MCHC mass conc (RBC) 32.9 g/dL 31 - 37 g/dL [facility] MCV Entitic volume (RBC) 83.8 fL 80 - 100 fL [facility] Monocytes #/vol (Bld) 0.76 10*3/uL [facility] Monocytes/100 WBC (Bld) 8.1 % [facility] Neutrophils #/vol (Bld) 6.65 10*3/uL [facility] Neutrophils/100 WBC (Bld) 70.4 % [facility] Nucleated RBC #/vol (Bld) 0.00 10*3/uL [facility] Nucleated RBC/100 WBC Ratio (Bld) 0.0 % [facility] Platelet mean volume Entitic volume (Bld) 9.6 fL 9 - 15.5 fL [facility] Platelets #/vol (Bld) 244 10*3/uL [facility] RBC #/vol (Bld) 4.68 10*6/uL [facility] WBC #/vol (Bld) 9.44 10*3/uL [facility] Hepatic Function Panel (LFT) on 03-30-2018 Albumin mass conc 4.7 g/dL 3.2 - 5.2 g/dL [facility] ALP enzyme act/vol 46 U/L 40 - 140 U/L [facility] ALT enzyme act/vol 22 U/L 0 - 40 U/L [facility] alth AST enzyme act/vol 22 U/L 0 - 45 U/L [facility]th Bilirubin mass conc 0.2 mg/dL 0 - 1.3 mg/[facility] Bilirubin.conjugated mass conc mg/dL 0 - 0.4 mg/dL [facility] Interpretation and review of laboratory results Normal [facility] Protein mass conc 8.0 g/dL 6 - 8 g/dL [facility] Lipaseon 03-30-2018 Lipase enzyme act/vol 28 U/L 15 - 65 U/L [facility] Otheron 03-30-2018 Interpretation and review of laboratory results Normal [facility] URINALYSISon 03-30-2018 Bacteria Auto Ql (U) None Seen None Seen /hpf [facility] Bilirubin Ql (U) Negative Negative [facility] Clarity Refractometry automated Nom (U) Hazy Abnormal Clear [facility] Color Nom (U) Yellow Colorless, Yellow [facility] Epithelial cells.squamous Auto #/area (Urine sed) 4 [facility] Glucose Automated test strip mass conc (U) Negative Negative mg/dL [facility] Hemoglobin Automated test strip Ql (U) Small Abnormal Negative [facility] Interpretation and review of laboratory results Abnormal [facility] Ketones mass conc (U) Negative Negative mg/dL [facility] Leukocyte esterase Automated test strip Ql (U) Negative Negative [facility] Mucus Auto #/area (Urine sed) Rare None Seen, Rare /lpf [facility] Nitrite Automated test strip Ql (U) Negative Negative [facility] pH (U) 7.0 [pH] [facility] Protein mass conc (U) Negative Negative mg/dL [facility] RBC Auto #/area (Urine sed) 9 High [facility] Specific gravity Relative Density (U) 1.024 [facility] Urobilinogen mass conc (U) <2.0 <2.0 mg/dL [facility] WBC Auto #/area (Urine sed) 1 [facility] Microscopic examinat ion is performed on all urinalysis samples and only positive findings are reported. The test for blood on the chemical analytic portion of urinalysis may also be positive due to hemoglobinuria and myoglobinuria and if red blood cells are present they are quantified by microscopic examination. [facility] XR ABDOMEN 1 VIEWon 03-30-19 19 Nonspecific bowel ga s pattern. Stable mild right-sided colonic stool burden. Stable 4 mm right renal calculus. Workstation ID: [id number] [facility] In [facility] Speechq - 03/30/2018 9:00 PM EST EXAMINATION: SINGLE SUPINE XRAY VIEW(S) OF THE ABDOMEN 03/30/2018 8:29 pm COMPARISON: 12/15/2017. HISTORY: ORDERING SYSTEM PROVIDED HISTORY: constipation; TECHNOLOGIST PROVIDED HISTORY: Reason for Exam: pt c/o no BM x 3 days.Pt with c/o rectal and vaginal pain following grunting to have a bm Illness/Other Acuity: Acute Cancer History: no Surgery, Radiation History: unk Type of Encounter: Initial Additional signs and symptoms: n FINDINGS: Scattered colonic gas and stool, similar to the previous study stool, likely in the cecal region measures 6.1 cm transversely. No significant small bowel distension. Mild gastric distention is noted. Stable calcification projecting over the right kidney measuring approximately 4 mm in size, likely a nonobstructive calculus. IMPRESSION: Nonspecific bowel gas pattern. Stable mild right-sided colonic stool burden. Stable 4 mm right renal calculus. Workstation ID: [id number] [facility] EXAMINATION: SINGLE SUPINE XRAY VIEW(S) OF THE ABDOMEN 03/30/2018 8:29 pm COMPARISON: 12/15/2017. HISTORY: ORDERING SYSTEM PROVIDED HISTORY: constipation; TECHNOLOGIST PROVIDED HISTORY: Reason for Exam: pt c/o no BM x 3 days.Pt with c/o rectal and vaginal pain following grunting to have a bm Illness/Other Acuity: Acute Cancer History: no Surgery, Radiation History: unk Type of Encounter: Initial Additional signs and symptoms: n FINDINGS: Scattered colonic gas and stool, similar to the previous study stool, likely in the cecal region measures 6.1 cm transversely. No significant small bowel distension. Mild gastric distention is noted. Stable calcification projecting over the right kidney measuring approximately 4 mm in size, likely a nonobstructive calculus. [facility] Otheron 03-11-2018 Normal x-ray of the thoracic and lumbar spine Small 3 mm nephrolith within the right kidney. This appears unchanged from the December 15 2017 exam Workstation ID: [id number] Invalid Interpretation Code Close EXAMINATION: 3 XRAY VIEWS OF THE THORACIC SPINE; 3 XRAY VIEWS OF THE LUMBAR SPINE 03/11/2018 9:52 am COMPARISON: December 15, 2017 x-ray of the abdomen HISTORY: ORDERING SYSTEM PROVIDED HISTORY: back pain; TECHNOLOGIST PROVIDED HISTORY: Reason for Exam: whole spine pain x2 days Illness/Other Acuity: Acute Cancer History: no Surgery, Radiation History: unk Type of Encounter: Initial Additional signs and symptoms: no known injury FINDINGS: Three-view x-ray thoracic spine: The thoracic vertebrae are in good alignment, there is no subluxation or for fracture. The vertebral body height is normal Three-view x-ray lumbar spine: Lumbar vertebrae are in good alignment there is no subluxation or fracture. The vertebral body heights and disc space height is well maintained. Incidental note is made of a small 3 mm nephrolith within the right kidney. Invalid Interpretation Code [facility] [place] Interface, Rad In [facility] Speechq - 03/11/2018 10:17 AM EST EXAMINATION: 3 XRAY VIEWS OF THE THORACIC SPINE; 3 XRAY VIEWS OF THE LUMBAR SPINE 03/11/2018 9:52 am COMPARISON: December 15, 2017 x-ray of the abdomen HISTORY: ORDERING SYSTEM PROVIDED HISTORY: back pain; TECHNOLOGIST PROVIDED HISTORY: Reason for Exam: whole spine pain x2 days Illness/Other Acuity: Acute Cancer History: no Surgery, Radiation History: unk Type of Encounter: Initial Additional signs and symptoms: no known injury FINDINGS: Three-view x-ray thoracic spine: The thoracic vertebrae are in good alignment, there is no subluxation or for fracture. The vertebral body height is normal Three-view x-ray lumbar spine: Lumbar vertebrae are in good alignment there is no subluxation or fracture. The vertebral body heights and disc space height is well maintained. Incidental note is made of a small 3 mm nephrolith within the right kidney. IMPRESSION: Normal x-ray of the thoracic and lumbar spine Small 3 mm nephrolith within the right kidney. This appears unchanged from the December 15 2017 exam Workstation ID: [id number] Invalid Interpretation Code Close Bacteria Auto Ql (U) Rare Abnormal None Seen /hpf [facility] Bilirubin Ql (U) Negative Invalid Interpretation Code Negative [facility] Clarity Refractometry automated Nom (U) Hazy Abnormal Clear [facility] Color Auto Nom (U) Yellow Invalid Interpretation Code Colorless, Yellow [facility] Epithelial cells.squamous Auto #/area (Urine sed) 18 High [facility] Glucose Automated test strip mass conc (U) Negative Invalid Interpretation Code Negative mg/dL [facility] Hemoglobin Automated test strip Ql (U) Moderate Abnormal Negative [facility] Interpretation and review of laboratory results Abnormal Invalid Interpretation Code [facility] Ketones mass conc (U) Negative Invalid Interpretation Code Negative mg/dL [facility] Leukocyte esterase Automated test strip Ql (U) Negative Invalid Interpretation Code Negative [facility] Mucus Auto #/area (Urine sed) Rare Invalid Interpretation Code None Seen, Rare /lpf [facility] Nitrite Automated test strip Ql (U) Negative Invalid Interpretation Code Negative [facility] RBC Auto #/area (Urine sed) 12 High [facility] Specific gravity Automated test strip Relative Density (U) 1.021 Invalid Interpretation Code [facility] WBC Auto #/area (Urine sed) 8 High [facility] Microscopic examinat ion is performed on all urinalysis samples and only positive findings are reported. The test for blood on the chemical analytic portion of urinalysis may also be positive due to hemoglobinuria and myoglobinuria and if red blood cells are present they are quantified by microscopic examination. Invalid Interpretation Code [facility] Internal Control Pass Invalid Interpretation Code [facility] Urinalysison 03-11-2018 pH Test strip (U) 5.0 [pH] Invalid Interpretation Code [facility] Protein mass conc (U) Negative Invalid Interpretation Code Negative mg/dL [facility] Urobilinogen Test strip Qn (U) <2.0 Invalid Interpretation Code <2.0 mg/dL [facility] HCG ( test) Ql (U) Negative Invalid Interpretation Code Negative [facility] Specific gravity Relative Density (U) Invalid Interpretation Code [facility] BMPon 02-15-2018 Anion gap 3 molar conc 19 mmol/L Invalid Interpretation Code 10 - 20 mmol/L [facility] Calcium mass conc 10.4 mg/dL High 8.4 - 10.2 mg/dL [facility] Chloride molar conc 99 mmol/L Invalid Interpretation Code 98 - 108 mmol/L [facility] Creatinine mass conc 0.69 mg/dL Invalid Interpretation Code 0.4 - 1.1 mg/dL [facility] GFR/1.73 sq M predicted among non-blacks MDRD vol rate/area (S/P/Bld) The eGFR should be used for monitoring renal function only and not for medication dosing. Invalid Interpretation Code [facility] GFR/1.73 sq M.predicted CKD-EPI vol rate/area (S/P/Bld) 120 Invalid Interpretation Code >=60 mL/min/1.73 m2 [facility] Glucose mass conc 102 mg/dL High 65 - 99 mg/dL [facility] HCO3 molar conc 27 mmol/L Invalid Interpretation Code 21 - 32 mmol/L [facility] Interpretation and review of laboratory results Abnormal Invalid Interpretation Code [facility] Potassium molar conc 4.1 mmol/L Invalid Interpretation Code 3.5 - 5.1 mmol/L [facility] Sodium molar conc 141 mmol/L Invalid Interpretation Code 135 - 145 mmol/L [facility] Urea nitrogen mass conc 14 mg/dL Invalid Interpretation Code 8 - 25 mg/dL [facility] Urea nitrogen/Creatinine mass ratio 20.3 mg/mg High [facility] CBC WITH AUTO DIFFERENTIALon 02-15-2018 Basophils Auto #/vol (Bld) 0.03 10*3/uL Invalid Interpretation Code [facility] Basophils/100 WBC Auto (Bld) 0.3 % Invalid Interpretation Code [facility] Eosinophils Auto #/vol (Bld) 0.10 10*3/uL Invalid Interpretation Code [facility] Eosinophils/100 WBC Auto (Bld) 1.1 % Invalid Interpretation Code [facility] Erythrocyte distribution width Auto Entitic volume (RBC) 13.7 % Invalid Interpretation Code 11.6 - 14.8 % [facility] Hematocrit Auto Volume Fraction (Bld) 41.3 % Invalid Interpretation Code 36 - 46 % [facility] Hemoglobin mass conc (Bld) 13.9 g/dL Invalid Interpretation Code 12 - 16 g/dL [facility] Immature granulocytes #/vol (Bld) 0.02 10*3/uL Invalid Interpretation Code [facility] Immature granulocytes/100 WBC (Bld) 0.20 % Invalid Interpretation Code [facility] Comment on above: The IG parameter is the percentage of metamyelocytes, myelocytes, and promyelocytes. Lymphocytes Auto #/vol (Bld) 1.50 10*3/uL Invalid Interpretation Code [facility] Lymphocytes/100 WBC Auto (Bld) 16.8 % Invalid Interpretation Code [facility] MCH Auto Entitic mass (RBC) 27.7 pg Invalid Interpretation Code 26 - 34 pg [facility] MCHC Auto mass conc (RBC) 33.7 g/dL Invalid Interpretation Code 31 - 37 g/dL [facility] MCV Auto Entitic volume (RBC) 82.3 fL Invalid Interpretation Code 80 - 100 fL [facility] Monocytes Auto #/vol (Bld) 0.63 10*3/uL Invalid Interpretation Code [facility] Monocytes/100 WBC Auto (Bld) 7.1 % Invalid Interpretation Code [facility] Neutrophils Auto #/vol (Bld) 6.64 10*3/uL Invalid Interpretation Code [facility] Neutrophils/100 WBC Auto (Bld) 74.5 % Invalid Interpretation Code [facility] Nucleated RBC #/vol (Bld) 0.00 10*3/uL Invalid Interpretation Code [facility] Nucleated RBC/100 WBC Ratio (Bld) 0.0 % Invalid Interpretation Code [facility] Platelet mean volume Auto Entitic volume (Bld) 10.4 fL Invalid Interpretation Code 9 - 15.5 fL [facility] Platelets Auto #/vol (Bld) 240 10*3/uL Invalid Interpretation Code [facility] RBC Auto #/vol (Bld) 5.02 10*6/uL Invalid Interpretation Code [facility] WBC Auto #/vol (Bld) 8.92 10*3/uL Invalid Interpretation Code [facility] CT HEAD OR BRAIN WITHOUT CON TRASTon 02-15-2018 EXAMINATION: CT OF T HE HEAD WITHOUT CONTRAST 02/15/2018 TECHNIQUE: CT of the head was performed without the administration of intravenous contrast. Dose modulation, iterative reconstruction, and/or weight based adjustment of the mA/kV was utilized to reduce the radiation dose to as low as reasonably achievable. COMPARISON: 09/20/2017 HISTORY: ORDERING SYSTEM PROVIDED HISTORY: dizziness, headache, n/v; TECHNOLOGIST PROVIDED HISTORY: Reason for Exam: n/v, headache Illness/Other Acuity: Acute Type of Encounter: Initial Mechanism of Injury: n Additional signs and symptoms: dizziness FINDINGS: BRAIN/VENTRICLES: No acute intracranial hemorrhage or extraaxial fluid collection. Mcgowan-white differentiation is maintained. No evidence of mass, mass effect or midline shift. No evidence of hydrocephalus. ORBITS: The visualized portion of the orbits demonstrate no acute abnormality. SINUSES: The visualized paranasal sinuses and mastoid air cells demonstrate no acute abnormality. SOFT TISSUES/SKULL: No acute abnormality of the visualized skull or soft tissues. Invalid Interpretation Code Close Interface, Rad In [facility] ji Speechq - 02/15/2018 7:45 PM EST EXAMINATION: CT OF THE HEAD WITHOUT CONTRAST 02/15/2018 TECHNIQUE: CT of the head was performed without the administration of intravenous contrast. Dose modulation, iterative reconstruction, and/or weight based adjustment of the mA/kV was utilized to reduce the radiation dose to as low as reasonably achievable. COMPARISON: 09/20/2017 HISTORY: ORDERING SYSTEM PROVIDED HISTORY: dizziness, headache, n/v; TECHNOLOGIST PROVIDED HISTORY: Reason for Exam: n/v, headache Illness/Other Acuity: Acute Type of Encounter: Initial Mechanism of Injury: n Additional signs and symptoms: dizziness FINDINGS: BRAIN/VENTRICLES: No acute intracranial hemorrhage or extraaxial fluid collection. Mcgowan-white differentiation is maintained. No evidence of mass, mass effect or midline shift. No evidence of hydrocephalus. ORBITS: The visualized portion of the orbits demonstrate no acute abnormality. SINUSES: The visualized paranasal sinuses and mastoid air cells demonstrate no acute abnormality. SOFT TISSUES/SKULL: No acute abnormality of the visualized skull or soft tissues. IMPRESSION: No acute intracranial abnormality. Workstation ID: [id number] Invalid Interpretation Code Close No acute intracrania l abnormality. Workstation ID: [id number] Invalid Interpretation Code [facility] [employer] [facility] POC Urine Pregnancyon 2017 HCG ( test) Ql (U) Negative Invalid Interpretation Code Negative [facility] Internal Control Pass Invalid Interpretation Code [facility] Interpretation and review of laboratory results Normal Invalid Interpretation Code [facility] Specific gravity Relative Density (U) Invalid Interpretation Code [facility] URINALYSISon 02-15-2018 Bacteria Auto Ql (U) Rare Abnormal None Seen /hpf [facility] Bilirubin Ql (U) Negative Invalid Interpretation Code Negative [facility] Clarity Refractometry automated Nom (U) Cloudy Abnormal Clear [facility] Color Auto Nom (U) Yellow Invalid Interpretation Code Colorless, Yellow [facility] Epithelial cells.squamous Auto #/area (Urine sed) 13 High [facility] Glucose Automated test strip mass conc (U) Negative Invalid Interpretation Code Negative mg/dL [facility] Hemoglobin Automated test strip Ql (U) Small Abnormal Negative [facility] Interpretation and review of laboratory results Abnormal Invalid Interpretation Code [facility] Ketones mass conc (U) Negative Invalid Interpretation Code Negative mg/dL [facility] Leukocyte clumps Auto #/area (Urine sed) Rare Abnormal None Seen /hpf [facility] Leukocyte esterase Automated test strip Ql (U) Large Abnormal Negative [facility] Mucus Auto #/area (Urine sed) Few Abnormal None Seen, Rare /lpf [facility] Nitrite Automated test strip Ql (U) Negative Invalid Interpretation Code Negative [facility] pH Test strip (U) 6.0 [pH] Invalid Interpretation Code [facility] Protein mass conc (U) Negative Invalid Interpretation Code Negative mg/dL [facility] RBC Auto #/area (Urine sed) 6 High [facility] Specific gravity Automated test strip Relative Density (U) 1.018 Invalid Interpretation Code [facility] Urobilinogen Test strip Qn (U) <2.0 Invalid Interpretation Code <2.0 mg/dL [facility] WBC Auto #/area (Urine sed) 74 High [facility] Microscopic examinat ion is performed on all urinalysis samples and only positive findings are reported. The test for blood on the chemical analytic portion of urinalysis may also be positive due to hemoglobinuria and myoglobinuria and if red blood cells are present they are quantified by microscopic examination. Invalid Interpretation Code [facility] Measure post void residualon 02-02-2018 Measure Post Void Residual 135 Invalid Interpretation Code [facility] POC Urinalysis Dipstick,Non- autoon 02-02-2018 Bilirubin Ql (U) Negative Invalid Interpretation Code Negative [facility] Glucose Ql (U) Negative Invalid Interpretation Code Normal, Negative mg/dL [facility] Hemoglobin Test strip Ql (U) Trace-lysed Abnormal Negative [facility] Interpretation and review of laboratory results Abnormal Invalid Interpretation Code [facility] Ketones Ql (U) Negative Invalid Interpretation Code Negative mg/dL [facility] Leukocyte esterase Test strip Ql (U) Negative Invalid Interpretation Code Negative [facility] Nitrite Test strip Ql (U) Negative Invalid Interpretation Code Negative [facility] pH Test strip (U) 5.5 [pH] Invalid Interpretation Code [facility] Protein Test strip Ql (U) Negative Invalid Interpretation Code Negative mg/dL [facility] Specific gravity Relative Density (U) 1.030 Abnormal [facility] Urobilinogen Test strip Qn (U) <1.0 Invalid Interpretation Code <2.0, 0.2, Normal, Negative, 1.0, 2.0, <1.0 mg/dL [facility] CBC WITH AUTO DIFFERENTIALon 01-09-2018 Basophils Auto #/vol (Bld) 0.03 10*3/uL Invalid Interpretation Code [facility] Basophils/100 WBC Auto (Bld) 0.4 % Invalid Interpretation Code [facility] Eosinophils Auto #/vol (Bld) 0.29 10*3/uL Invalid Interpretation Code [facility] Eosinophils/100 WBC Auto (Bld) 3.9 % Invalid Interpretation Code [facility] Erythrocyte distribution width Auto Entitic volume (RBC) 13.2 % Invalid Interpretation Code 11.6 - 14.8 % [facility] Hematocrit Auto Volume Fraction (Bld) 39.3 % Invalid Interpretation Code 36 - 46 % [facility] Hemoglobin mass conc (Bld) 13.2 g/dL Invalid Interpretation Code 12 - 16 g/dL [facility] Immature granulocytes #/vol (Bld) 0.01 10*3/uL Invalid Interpretation Code [facility] Immature granulocytes/100 WBC (Bld) 0.10 % Invalid Interpretation Code [facility] Comment on above: The IG parameter is the percentage of metamyelocytes, myelocytes, and promyelocytes. Lymphocytes Auto #/vol (Bld) 1.92 10*3/uL Invalid Interpretation Code [facility] Lymphocytes/100 WBC Auto (Bld) 26.1 % Invalid Interpretation Code [facility] MCH Auto Entitic mass (RBC) 27.3 pg Invalid Interpretation Code 26 - 34 pg [facility] MCHC Auto mass conc (RBC) 33.6 g/dL Invalid Interpretation Code 31 - 37 g/dL [facility] MCV Auto Entitic volume (RBC) 81.2 fL Invalid Interpretation Code 80 - 100 fL [facility] Monocytes Auto #/vol (Bld) 0.51 10*3/uL Invalid Interpretation Code [facility] Monocytes/100 WBC Auto (Bld) 6.9 % Invalid Interpretation Code [facility] Neutrophils Auto #/vol (Bld) 4.61 10*3/uL Invalid Interpretation Code [facility] Neutrophils/100 WBC Auto (Bld) 62.6 % Invalid Interpretation Code [facility] Nucleated RBC #/vol (Bld) 0.00 10*3/uL Invalid Interpretation Code [facility] Nucleated RBC/100 WBC Ratio (Bld) 0.0 % Invalid Interpretation Code [facility] Platelet mean volume Auto Entitic volume (Bld) 9.4 fL Invalid Interpretation Code 9 - 15.5 fL [facility] Platelets Auto #/vol (Bld) 250 10*3/uL Invalid Interpretation Code [facility] RBC Auto #/vol (Bld) 4.84 10*6/uL Invalid Interpretation Code [facility] WBC Auto #/vol (Bld) 7.37 10*3/uL Invalid Interpretation Code [facility] LAB CT Abdomen Pelvis With IV Co ntrast Onlyon 01-09-2018 1. No acute process identified. Normal appendix. 2. Small (2 mm) nonobstructing right renal calculus. 3. Small amount of pelvic free fluid. Small left ovarian corpus luteum, consider ovarian cyst rupture. No follow-up is suggested. [employer] Workstation ID: [id number] Invalid Interpretation Code [employer] [facility] Interface, Rad Cecil Augusteq - 01/09/2018 7:37 PM EST EXAMINATION: CT OF THE ABDOMEN AND PELVIS WITH CONTRAST 01/09/2018 TECHNIQUE: CT of the abdomen and pelvis was performed with the administration of intravenous contrast. Multiplanar reformatted images are provided for review. Dose modulation, iterative reconstruction, and/or weight based adjustment of the mA/kV was utilized to reduce the radiation dose to as low as reasonably achievable. COMPARISON: 09/06/2017. HISTORY: ORDERING SYSTEM PROVIDED HISTORY: lower abdominal pain, suprapubic and LLQ; TECHNOLOGIST PROVIDED HISTORY: Reason for Exam: severe abd pain with cramping. Illness/Other Acuity: Acute Type of Encounter: Initial Additional signs and symptoms: severe abd pain with cramping. FINDINGS: LOWER CHEST: The heart size is normal. There is minimal atelectasis at the lung bases. ORGANS: No focal hepatic abnormality is noted. The gallbladder is unremarkable. The spleen is unremarkable. No focal pancreatic abnormality is appreciated. The adrenal glands are unremarkable. The kidneys are not obstructed. There is a nonobstructing right midpole renal calculus measuring 2 mm. A small probable left renal cyst is unchanged, too small to definitively characterize measuring 5 mm. GI/BOWEL: The bowel is not obstructed. The appendix is within normal limits within the anterior right pelvis. PELVIS: There is a small amount of free fluid in the pelvis. A left ovarian corpus luteum is incidentally noted. The urinary bladder is unremarkable. PERITONEUM/RETROPERITON EUM: The abdominal aorta is of normal caliber. There is no evidence of free intraperitoneal air. BONES/SOFT TISSUES: The osseous structures are unremarkable. IMPRESSION: 1. No acute process identified. Normal appendix. 2. Small (2 mm) nonobstructing right renal calculus. 3. Small amount of pelvic free fluid. Small left ovarian corpus luteum, consider ovarian cyst rupture. No follow-up is suggested. [employer] Workstation ID: [id number] Invalid Interpretation Code [employer] [place] EXAMINATION: CT OF T HE ABDOMEN AND PELVIS WITH CONTRAST 01/09/2018 TECHNIQUE: CT of the abdomen and pelvis was performed with the administration of intravenous contrast. Multiplanar reformatted images are provided for review. Dose modulation, iterative reconstruction, and/or weight based adjustment of the mA/kV was utilized to reduce the radiation dose to as low as reasonably achievable. COMPARISON: 09/06/2017. HISTORY: ORDERING SYSTEM PROVIDED HISTORY: lower abdominal pain, suprapubic and LLQ; TECHNOLOGIST PROVIDED HISTORY: Reason for Exam: severe abd pain with cramping. Illness/Other Acuity: Acute Type of Encounter: Initial Additional signs and symptoms: severe abd pain with cramping. FINDINGS: LOWER CHEST: The heart size is normal. There is minimal atelectasis at the lung bases. ORGANS: No focal hepatic abnormality is noted. The gallbladder is unremarkable. The spleen is unremarkable. No focal pancreatic abnormality is appreciated. The adrenal glands are unremarkable. The kidneys are not obstructed. There is a nonobstructing right midpole renal calculus measuring 2 mm. A small probable left renal cyst is unchanged, too small to definitively characterize measuring 5 mm. GI/BOWEL: The bowel is not obstructed. The appendix is within normal limits within the anterior right pelvis. PELVIS: There is a small amount of free fluid in the pelvis. A left ovarian corpus luteum is incidentally noted. The urinary bladder is unremarkable. PERITONEUM/RETROPERITON EUM: The abdominal aorta is of normal caliber. There is no evidence of free intraperitoneal air. BONES/SOFT TISSUES: The osseous structures are unremarkable. Invalid Interpretation Code [employer] [facility] Chem 7on 01-09-2018 Anion gap 3 molar conc 16 mmol/L Invalid Interpretation Code 10 - 20 mmol/L [facility] Chloride molar conc 103 mmol/L Invalid Interpretation Code 98 - 108 mmol/L [facility] Creatinine mass conc 0.61 mg/dL Invalid Interpretation Code 0.4 - 1.1 mg/dL [facility] GFR/1.73 sq M predicted among non-blacks MDRD vol rate/area (S/P/Bld) The eGFR should be used for monitoring renal function only and not for medication dosing. Invalid Interpretation Code [facility] GFR/1.73 sq M.predicted CKD-EPI vol rate/area (S/P/Bld) 125 Invalid Interpretation Code >=60 mL/min/1.73 m2 [facility] Glucose mass conc 89 mg/dL Invalid Interpretation Code 65 - 99 mg/dL [facility] HCO3 molar conc 24 mmol/L Invalid Interpretation Code 21 - 32 mmol/L [facility] Interpretation and review of laboratory results Abnormal Invalid Interpretation Code [facility] Potassium molar conc 4.0 mmol/L Invalid Interpretation Code 3.5 - 5.1 mmol/L [facility] Sodium molar conc 139 mmol/L Invalid Interpretation Code 135 - 145 mmol/L [facility] Urea nitrogen mass conc 13 mg/dL Invalid Interpretation Code 8 - 25 mg/dL [facility] Urea nitrogen/Creatinine mass ratio 21.3 mg/mg High [facility] Lactic Acid, Plasmaon 2017 Lactate molar conc 1.3 mmol/L Invalid Interpretation Code 0.6 - 2 mmol/L [facility] Lipaseon 01-09-2018 Lipase enzyme act/vol 32 U/L Invalid Interpretation Code 15 - 65 U/L [facility] Otheron 01-09-2018 Interpretation and review of laboratory results Normal Invalid Interpretation Code [facility] POC Urine Pregnancyon 2017 HCG ( test) Ql (U) Negative Invalid Interpretation Code Negative [facility] Internal Control Pass Invalid Interpretation Code [facility] Specific gravity Relative Density (U) Invalid Interpretation Code [facility] URINALYSISon 01-09-2018 Bacteria Auto Ql (U) Rare Abnormal None Seen /hpf [facility] Bilirubin Ql (U) Negative Invalid Interpretation Code Negative [facility] Clarity Refractometry automated Nom (U) Cloudy Abnormal Clear [facility] Color Auto Nom (U) Yellow Invalid Interpretation Code Colorless, Yellow [facility] Epithelial cells.squamous Auto #/area (Urine sed) 12 High [facility] Glucose Automated test strip mass conc (U) Negative Invalid Interpretation Code Negative mg/dL [facility] Hemoglobin Automated test strip Ql (U) Negative Invalid Interpretation Code Negative [facility] Interpretation and review of laboratory results Abnormal Invalid Interpretation Code [facility] Ketones mass conc (U) Negative Invalid Interpretation Code Negative mg/dL [facility] Leukocyte esterase Automated test strip Ql (U) Trace Abnormal Negative [facility] Mucus Auto #/area (Urine sed) Rare Invalid Interpretation Code None Seen, Rare /lpf [facility] Nitrite Automated test strip Ql (U) Negative Invalid Interpretation Code Negative [facility] pH Test strip (U) 6.0 [pH] Invalid Interpretation Code [facility] Protein mass conc (U) Negative Invalid Interpretation Code Negative mg/dL [facility] RBC Auto #/area (Urine sed) 3 Invalid Interpretation Code [facility] Specific gravity Automated test strip Relative Density (U) 1.013 Invalid Interpretation Code [facility] Urobilinogen Test strip Qn (U) <2.0 Invalid Interpretation Code <2.0 mg/dL [facility] WBC Auto #/area (Urine sed) 3 Invalid Interpretation Code [facility] Microscopic examinat ion is performed on all urinalysis samples and only positive findings are reported. The test for blood on the chemical analytic portion of urinalysis may also be positive due to hemoglobinuria and myoglobinuria and if red blood cells are present they are quantified by microscopic examination. Invalid Interpretation Code [facility] US Pelvic Transabdominal And Transvaginal With Color Flowon 01-09-2018 EXAMINATION: PELVIC ULTRASOUND 01/09/2018 TECHNIQUE: Transabdominal and transvaginal pelvic ultrasound was performed with color Doppler flow evaluation. COMPARISON: None HISTORY: ORDERING SYSTEM PROVIDED HISTORY: pelvic pain, concern for cyst; TECHNOLOGIST PROVIDED HISTORY: Reason for Exam: mid pelvic pain x 1 hour Illness/Other Acuity: Acute Cancer History: no Surgery, Radiation History: unk Type of Encounter: Initial Additional signs and symptoms: no ORDERING SYSTEM PROVIDED DIAGNOSIS CODES: R10.9 Abdominal pain, unspecified abdominal location N83.209 Ruptured ovarian cyst FINDINGS: Measurements: Uterus: 7.5 x 3.7 x 4.3 cm Endometrial stripe: 1.5 cm Right Ovary: 3.4 x 2.1 x 3.2 cm Left Ovary: 3.4 x 2.4 x 3.5 cm Ultrasound Findings: Uterus: Uterus demonstrates normal myometrial echotexture. Endometrial stripe: Endometrial stripe is within normal limits. Right Ovary: Right ovary is within normal limits. There is normal arterial and venous Doppler flow. Left Ovary: Left ovary is within normal limits. There is normal arterial and venous Doppler flow. Free Fluid: Small amount of free fluid the cul-de-sac likely physiologic in nature. Invalid Interpretation Code [employer] [facility] Interface, Rad In [employer] - 01/09/2018 4:02 PM EST EXAMINATION: PELVIC ULTRASOUND 01/09/2018 TECHNIQUE: Transabdominal and transvaginal pelvic ultrasound was performed with color Doppler flow evaluation. COMPARISON: None HISTORY: ORDERING SYSTEM PROVIDED HISTORY: pelvic pain, concern for cyst; TECHNOLOGIST PROVIDED HISTORY: Reason for Exam: mid pelvic pain x 1 hour Illness/Other Acuity: Acute Cancer History: no Surgery, Radiation History: unk Type of Encounter: Initial Additional signs and symptoms: no ORDERING SYSTEM PROVIDED DIAGNOSIS CODES: R10.9 Abdominal pain, unspecified abdominal location N83.209 Ruptured ovarian cyst FINDINGS: Measurements: Uterus: 7.5 x 3.7 x 4.3 cm Endometrial stripe: 1.5 cm Right Ovary: 3.4 x 2.1 x 3.2 cm Left Ovary: 3.4 x 2.4 x 3.5 cm Ultrasound Findings: Uterus: Uterus demonstrates normal myometrial echotexture. Endometrial stripe: Endometrial stripe is within normal limits. Right Ovary: Right ovary is within normal limits. There is normal arterial and venous Doppler flow. Left Ovary: Left ovary is within normal limits. There is normal arterial and venous Doppler flow. Free Fluid: Small amount of free fluid the cul-de-sac likely physiologic in nature. IMPRESSION: Negative pelvic ultrasound. Normal Doppler flow within the ovaries. Workstation ID: [id number] Invalid Interpretation Code [employer] [facility] Negative pelvic ultrasound. Normal Doppler flow within the ovaries. Workstation ID: [id number] Invalid Interpretation Code [employer] [facility] BMPon 12-15-2017 Anion gap 3 molar conc 18 mmol/L Invalid Interpretation Code 10 - 20 mmol/L [facility] Calcium mass conc 9.9 mg/dL Invalid Interpretation Code 8.4 - 10.2 mg/dL [facility] Chloride molar conc 99 mmol/L Invalid Interpretation Code 98 - 108 mmol/L [facility] Creatinine mass conc 0.87 mg/dL Invalid Interpretation Code 0.4 - 1.1 mg/dL [facility] GFR/1.73 sq M predicted among non-blacks MDRD vol rate/area (S/P/Bld) The eGFR should be used for monitoring renal function only and not for medication dosing. Invalid Interpretation Code [facility] GFR/1.73 sq M.predicted CKD-EPI vol rate/area (S/P/Bld) 92 Invalid Interpretation Code >=60 mL/min/1.73 m2 [facility] Glucose mass conc 69 mg/dL Invalid Interpretation Code 65 - 99 mg/dL [facility] HCO3 molar conc 25 mmol/L Invalid Interpretation Code 21 - 32 mmol/L [facility] Interpretation and review of laboratory results Abnormal Invalid Interpretation Code [facility] Potassium molar conc 3.9 mmol/L Invalid Interpretation Code 3.5 - 5.1 mmol/L [facility] Sodium molar conc 138 mmol/L Invalid Interpretation Code 135 - 145 mmol/L [facility] Urea nitrogen mass conc 19 mg/dL Invalid Interpretation Code 8 - 25 mg/dL [facility] Urea nitrogen/Creatinine mass ratio 21.8 mg/mg High [facility] CBC Auto Differentialon 12-05 Basophils Auto #/vol (Bld) 0.04 10*3/uL Invalid Interpretation Code [facility] Basophils/100 WBC Auto (Bld) 0.5 % Invalid Interpretation Code [facility] Eosinophils Auto #/vol (Bld) 0.40 10*3/uL Invalid Interpretation Code [facility] Eosinophils/100 WBC Auto (Bld) 4.8 % Invalid Interpretation Code [facility] Erythrocyte distribution width Auto Entitic volume (RBC) 13.1 % Invalid Interpretation Code 11.6 - 14.8 % [facility] Hematocrit Auto Volume Fraction (Bld) 39.3 % Invalid Interpretation Code 36 - 46 % [facility] Hemoglobin mass conc (Bld) 13.4 g/dL Invalid Interpretation Code 12 - 16 g/dL [facility] Immature granulocytes #/vol (Bld) 0.01 10*3/uL Invalid Interpretation Code [facility] Immature granulocytes/100 WBC (Bld) 0.10 % Invalid Interpretation Code [facility] Comment on above: The IG parameter is the percentage of metamyelocytes, myelocytes, and promyelocytes. Lymphocytes Auto #/vol (Bld) 2.67 10*3/uL Invalid Interpretation Code [facility] Lymphocytes/100 WBC Auto (Bld) 32.3 % Invalid Interpretation Code [facility] MCH Auto Entitic mass (RBC) 27.5 pg Invalid Interpretation Code 26 - 34 pg [facility] MCHC Auto mass conc (RBC) 34.1 g/dL Invalid Interpretation Code 31 - 37 g/dL [facility] MCV Auto Entitic volume (RBC) 80.5 fL Invalid Interpretation Code 80 - 100 fL [facility] Monocytes Auto #/vol (Bld) 0.60 10*3/uL Invalid Interpretation Code [facility] Monocytes/100 WBC Auto (Bld) 7.3 % Invalid Interpretation Code [facility] Neutrophils Auto #/vol (Bld) 4.54 10*3/uL Invalid Interpretation Code [facility] Neutrophils/100 WBC Auto (Bld) 55.0 % Invalid Interpretation Code [facility] Nucleated RBC #/vol (Bld) 0.00 10*3/uL Invalid Interpretation Code [facility] Nucleated RBC/100 WBC Ratio (Bld) 0.0 % Invalid Interpretation Code [facility] Platelet mean volume Auto Entitic volume (Bld) 9.4 fL Invalid Interpretation Code 9 - 15.5 fL [facility] Platelets Auto #/vol (Bld) 264 10*3/uL Invalid Interpretation Code [facility] RBC Auto #/vol (Bld) 4.88 10*6/uL Invalid Interpretation Code [facility] WBC Auto #/vol (Bld) 8.26 10*3/uL Invalid Interpretation Code [facility] Hepatic Function Panel (LFT) on 12-15-2017 Albumin mass conc 4.7 g/dL Invalid Interpretation Code 3.2 - 5.2 g/dL [facility] ALP enzyme act/vol 44 U/L Invalid Interpretation Code 40 - 140 U/L [facility] ALT enzyme act/vol 18 U/L Invalid Interpretation Code 0 - 40 U/L [facility] AST enzyme act/vol 21 U/L Invalid Interpretation Code 0 - 45 U/L [facility] Bilirubin mass conc 0.2 mg/dL Invalid Interpretation Code 0 - 1.3 mg/dL [facility] Bilirubin.conjugated mass conc mg/dL Invalid Interpretation Code 0 - 0.4 mg/dL [facility] Interpretation and review of laboratory results Normal Invalid Interpretation Code [facility] Protein mass conc 7.8 g/dL Invalid Interpretation Code 6 - 8 g/dL [facility] Lactic Acid, Plasmaon 2017 Interpretation and review of laboratory results Normal Invalid Interpretation Code [facility] Lactate molar conc 1.1 mmol/L Invalid Interpretation Code 0.6 - 2 mmol/L [facility] POC Urine Pregnancyon 2017 HCG ( test) Ql (U) Negative Invalid Interpretation Code Negative [facility] Internal Control Pass Invalid Interpretation Code [facility] Interpretation and review of laboratory results Normal Invalid Interpretation Code [facility] Specific gravity Relative Density (U) Invalid Interpretation Code [facility] Urinalysison 12-15-2017 Bacteria Auto Ql (U) None Seen Invalid Interpretation Code None Seen /hpf [facility] Bilirubin Ql (U) Negative Invalid Interpretation Code Negative [facility] Clarity Refractometry automated Nom (U) Hazy Abnormal Clear [facility] Color Auto Nom (U) Yellow Invalid Interpretation Code Colorless, Yellow [facility] Epithelial cells.squamous Auto #/area (Urine sed) 1 Invalid Interpretation Code [facility] Glucose Automated test strip mass conc (U) Negative Invalid Interpretation Code Negative mg/dL [facility] Hemoglobin Automated test strip Ql (U) Negative Invalid Interpretation Code Negative [facility] Interpretation and review of laboratory results Abnormal Invalid Interpretation Code [facility] Ketones mass conc (U) Negative Invalid Interpretation Code Negative mg/dL [facility] Leukocyte esterase Automated test strip Ql (U) Negative Invalid Interpretation Code Negative [facility] Mucus Auto #/area (Urine sed) Rare Invalid Interpretation Code None Seen, Rare /lpf [facility] Nitrite Automated test strip Ql (U) Negative Invalid Interpretation Code Negative [facility] pH Test strip (U) 6.0 [pH] Invalid Interpretation Code [facility] Protein mass conc (U) Negative Invalid Interpretation Code Negative mg/dL [facility] RBC Auto #/area (Urine sed) 6 High [facility] Specific gravity Automated test strip Relative Density (U) 1.025 Invalid Interpretation Code [facility] LAB Urobilinogen Test strip Qn (U) <2.0 Invalid Interpretation Code <2.0 mg/dL [facility] WBC Auto #/area (Urine sed) 1 Invalid Interpretation Code [facility] Microscopic examinat ion is performed on all urinalysis samples and only positive findings are reported. The test for blood on the chemical analytic portion of urinalysis may also be positive due to hemoglobinuria and myoglobinuria and if red blood cells are present they are quantified by microscopic examination. Invalid Interpretation Code [facility] XR Abdomen APon 12-15-2017 Interface, Rad In Fu ji Speechq - 12/15/2017 10:16 PM EDT EXAMINATION: SINGLE SUPINE XRAY VIEW(S) OF THE ABDOMEN 12/15/2017 9:59 pm COMPARISON: None. HISTORY: ORDERING SYSTEM PROVIDED HISTORY: constipation; TECHNOLOGIST PROVIDED HISTORY: Reason for Exam: Pt arrives with c/o abdominal pain and constipation. PT reports straining while defecation. Last healthy BM aprox a month ago Illness/Other Acuity: Acute Cancer History: no Surgery, Radiation History: unk Type of Encounter: Initial Additional signs and symptoms: N FINDINGS: Right renal calculus noted. Gas and stool seen in the colon. Minimal small bowel gas. The bowel loops are not significantly dilated. IMPRESSION: 1. Findings suggest constipation 2. 3 mm stone in the midpole of the right kidney Workstation ID: [id number] Invalid Interpretation Code [facility] EXAMINATION: SINGLE SUPINE XRAY VIEW(S) OF THE ABDOMEN 12/15/2017 9:59 pm COMPARISON: None. HISTORY: ORDERING SYSTEM PROVIDED HISTORY: constipation; TECHNOLOGIST PROVIDED HISTORY: Reason for Exam: Pt arrives with c/o abdominal pain and constipation. PT reports straining while defecation. Last healthy BM aprox a month ago Illness/Other Acuity: Acute Cancer History: no Surgery, Radiation History: unk Type of Encounter: Initial Additional signs and symptoms: N FINDINGS: Right renal calculus noted. Gas and stool seen in the colon. Minimal small bowel gas. The bowel loops are not significantly dilated. Invalid Interpretation Code [employer] [facility] 1. Findings suggest constipation 2. 3 mm stone in the midpole of the right kidney Workstation ID: [id number] Invalid Interpretation Code [employer] [facility] BMPon 10-08-2017 Anion gap 3 molar conc 17 mmol/L Invalid Interpretation Code 10 - 20 mmol/L [facility] Calcium mass conc 9.8 mg/dL Invalid Interpretation Code 8.4 - 10.2 mg/dL [facility] Chloride molar conc 100 mmol/L Invalid Interpretation Code 98 - 108 mmol/L [facility] Creatinine mass conc 0.71 mg/dL Invalid Interpretation Code 0.4 - 1.1 mg/dL [facility] GFR/1.73 sq M predicted among non-blacks MDRD vol rate/area (S/P/Bld) The eGFR should be used for monitoring renal function only and not for medication dosing. Invalid Interpretation Code [facility]) LAB GFR/1.73 sq M.predicted CKD-EPI vol rate/area (S/P/Bld) 118 mL/min/1.73 m2 Invalid Interpretation Code >=60 [facility] Glucose mass conc 95 mg/dL Invalid Interpretation Code 65 - 99 mg/dL [facility] HCO3 molar conc 26 mmol/L Invalid Interpretation Code 21 - 32 mmol/L [facility] Interpretation and review of laboratory results Normal Invalid Interpretation Code [facility] Potassium molar conc 3.9 mmol/L Invalid Interpretation Code 3.5 - 5.1 mmol/L [facility] Sodium molar conc 139 mmol/L Invalid Interpretation Code 135 - 145 mmol/L [facility] Urea nitrogen mass conc 10 mg/dL Invalid Interpretation Code 8 - 25 mg/dL [facility] Urea nitrogen/Creatinine mass ratio 14.1 mg/mg Invalid Interpretation Code 10.0 - 20.0 [facility] CBC Auto Differentialon 08-0 Basophils Auto #/vol (Bld) 0.04 K/mcL Invalid Interpretation Code 0.00 - 0.30 [facility] Basophils/100 WBC Auto (Bld) 0.4 % Invalid Interpretation Code [facility] Eosinophils Auto #/vol (Bld) 0.27 K/mcL Invalid Interpretation Code 0.00 - 0.50 [facility] Eosinophils/100 WBC Auto (Bld) 2.9 % Invalid Interpretation Code [facility] Erythrocyte distribution width Auto Entitic volume (RBC) 12.8 % Invalid Interpretation Code 11.6 - 14.8 % [facility] Hematocrit Auto Volume Fraction (Bld) 38.3 % Invalid Interpretation Code 36 - 46 % [facility] Hemoglobin mass conc (Bld) 13.3 g/dL Invalid Interpretation Code 12 - 16 g/dL [facility] LAB Immature granulocytes #/vol (Bld) 0.01 K/mcL Invalid Interpretation Code 0.00 - 0.30 [facility] Immature granulocytes/100 WBC (Bld) 0.10 % Invalid Interpretation Code [facility] Comment on above: The IG parameter is the percentage of metamyelocytes, myelocytes, and promyelocytes. Lymphocytes Auto #/vol (Bld) 1.95 K/mcL Invalid Interpretation Code 0.90 - 4.00 [facility]) LAB Lymphocytes/100 WBC Auto (Bld) 20.9 % Invalid Interpretation Code [facility] LAB MCH Auto Entitic mass (RBC) 28.5 pg Invalid Interpretation Code 26 - 34 pg [facility] MCHC Auto mass conc (RBC) 34.7 g/dL Invalid Interpretation Code 31 - 37 g/dL [facility] LAB MCV Auto Entitic volume (RBC) 82.2 fL Invalid Interpretation Code 80 - 100 fL [facility] Monocytes Auto #/vol (Bld) 0.77 K/mcL Invalid Interpretation Code 0.30 - 0.90 [facility] LAB Monocytes/100 WBC Auto (Bld) 8.3 % Invalid Interpretation Code [facility] Neutrophils Auto #/vol (Bld) 6.29 K/mcL Invalid Interpretation Code 1.70 - 7.00 [facility] LAB Neutrophils/100 WBC Auto (Bld) 67.4 % Invalid Interpretation Code [facility] LAB Nucleated RBC #/vol (Bld) 0.00 K/mcL Invalid Interpretation Code 0.00 - 0.00 [facility] Nucleated RBC/100 WBC Ratio (Bld) 0.0 % Invalid Interpretation Code [facility] ([facility]) LAB Platelet mean volume Auto Entitic volume (Bld) 9.3 fL Invalid Interpretation Code 9 - 15.5 fL [facility] Platelets Auto #/vol (Bld) 280 K/mcL Invalid Interpretation Code 150 - 400 [facility] ([facility]) LAB RBC Auto #/vol (Bld) 4.66 M/mcL Invalid Interpretation Code 4.00 - 5.20 [facility] ([facility]) LAB WBC Auto #/vol (Bld) 9.33 K/mcL Invalid Interpretation Code 4.50 - 11.00 [facility] ([facility]) LAB CBC w/ Diffon 10-08-2017 CBC w/ Diff The following orders were created for panel order CBC w/ Diff. Procedure Abnormality Status --------- ------ CBC Auto Differential[[id number]] Final result Please view results for these tests on the individual orders. Invalid Interpretation Code [facility] CT Angiogram Head Neckon CT Angiogram Head Neck No acute arterial abnormality detected within the head or neck. Air-fluid level in the right maxillary sinus which could reflect acute sinusitis. Workstation ID: [id number] Invalid Interpretation Code [employer] [facility] CT Angiogram Head Neck EXAMINATION: CTA OF THE HEAD AND NECK WITH CONTRAST 10/08/2017 5:45 pm TECHNIQUE: CTA of the head and neck was performed with the administration of intravenous contrast. Multiplanar reformatted images are provided for review. MIP images are provided for review. Stenosis of the internal carotid arteries measured using NASCET criteria. Dose modulation, iterative reconstruction, and/or weight based adjustment of the mA/kV was utilized to reduce the radiation dose to as low as reasonably achievable. COMPARISON: None. HISTORY: ORDERING SYSTEM PROVIDED HISTORY: dizziness, right head numbness; TECHNOLOGIST PROVIDED HISTORY: Reason for Exam: numbness to neck Illness/Other Acuity: Acute Type of Encounter: Initial Additional signs and symptoms: chest tightness FINDINGS: CTA NECK: AORTIC ARCH/ARCH VESSELS: There is a normal branch pattern of the aortic arch. No significant stenosis is seen of the innominate artery or subclavian arteries. CAROTID ARTERIES: The common carotid arteries are normal in appearance without evidence of a flow limiting stenosis. The internal carotid arteries are normal in appearance without evidence of a flow limiting stenosis by NASCET criteria. No dissection or arterial injury is seen. VERTEBRAL ARTERIES: The vertebral arteries both arise from the subclavian arteries and are normal in caliber without evidence of flow limiting stenosis or dissection. SOFT TISSUES: The lung apices are clear. No cervical or superior mediastinal lymphadenopathy. The visualized portion of the larynx and pharynx appear unremarkable. The parotid, submandibular and thyroid glands demonstrate no acute abnormality. BONES: The visualized osseous structures appear unremarkable. CTA HEAD: ANTERIOR CIRCULATION: The internal carotid arteries are normal in course and caliber without focal stenosis. The anterior cerebral and middle cerebral arteries demonstrate no focal stenosis. There is a right-sided posterior communicating artery. POSTERIOR CIRCULATION: The posterior cerebral arteries demonstrate no focal stenosis. The vertebral and basilar arteries appear unremarkable. The right vertebral artery appears to end as a posterior inferior cerebellar artery. BRAIN: No mass effect or midline shift. No abnormal extra-axial fluid collection. The mcgowan-white differentiation appears grossly maintained. An air-fluid level is present within the right maxillary antrum. This could reflect acute sinusitis. Invalid Interpretation Code [employer] [facility] CT Angiogram Head Neck Interface, Rad In Station Xq - 10/08/2017 6:04 PM EDT EXAMINATION: CTA OF THE HEAD AND NECK WITH CONTRAST 10/08/2017 5:45 pm TECHNIQUE: CTA of the head and neck was performed with the administration of intravenous contrast. Multiplanar reformatted images are provided for review. MIP images are provided for review. Stenosis of the internal carotid arteries measured using NASCET criteria. Dose modulation, iterative reconstruction, and/or weight based adjustment of the mA/kV was utilized to reduce the radiation dose to as low as reasonably achievable. COMPARISON: None. HISTORY: ORDERING SYSTEM PROVIDED HISTORY: dizziness, right head numbness; TECHNOLOGIST PROVIDED HISTORY: Reason for Exam: numbness to neck Illness/Other Acuity: Acute Type of Encounter: Initial Additional signs and symptoms: chest tightness FINDINGS: CTA NECK: AORTIC ARCH/ARCH VESSELS: There is a normal branch pattern of the aortic arch. No significant stenosis is seen of the innominate artery or subclavian arteries. CAROTID ARTERIES: The common carotid arteries are normal in appearance without evidence of a flow limiting stenosis. The internal carotid arteries are normal in appearance without evidence of a flow limiting stenosis by NASCET criteria. No dissection or arterial injury is seen. VERTEBRAL ARTERIES: The vertebral arteries both arise from the subclavian arteries and are normal in caliber without evidence of flow limiting stenosis or dissection. SOFT TISSUES: The lung apices are clear. No cervical or superior mediastinal lymphadenopathy. The visualized portion of the larynx and pharynx appear unremarkable. The parotid, submandibular and thyroid glands demonstrate no acute abnormality. BONES: The visualized osseous structures appear unremarkable. CTA HEAD: ANTERIOR CIRCULATION: The internal carotid arteries are normal in course and caliber without focal stenosis. The anterior cerebral and middle cerebral arteries demonstrate no focal stenosis. There is a right-sided posterior communicating artery. POSTERIOR CIRCULATION: The posterior cerebral arteries demonstrate no focal stenosis. The vertebral and basilar arteries appear unremarkable. The right vertebral artery appears to end as a posterior inferior cerebellar artery. BRAIN: No mass effect or midline shift. No abnormal extra-axial fluid collection. The mcgowan-white differentiation appears grossly maintained. An air-fluid level is present within the right maxillary antrum. This could reflect acute sinusitis. IMPRESSION: No acute arterial abnormality detected within the head or neck. Air-fluid level in the right maxillary sinus which could reflect acute sinusitis. Workstation ID: [id number] Invalid Interpretation Code [employer] [facility] Hepatic Function Panel (LFT) on 10-08-2017 Albumin mass conc 4.8 g/dL Invalid Interpretation Code 3.2 - 5.2 g/dL [facility] ALP enzyme act/vol 46 U/L Invalid Interpretation Code 40 - 140 U/L [facility] ALT enzyme act/vol 19 U/L Invalid Interpretation Code 0 - 40 U/L [facility] AST enzyme act/vol 21 U/L Invalid Interpretation Code 0 - 45 U/L [facility] Bilirubin mass conc mg/dL Invalid Interpretation Code 0 - 1.3 mg/dL [facility] Bilirubin.conjugated mass conc mg/dL Invalid Interpretation Code 0 - 0.4 mg/dL [facility] Protein mass conc 8.0 g/dL Invalid Interpretation Code 6 - 8 g/dL [facility] Troponinon 10-08-2017 Troponin T.cardiac mass conc ug/L Invalid Interpretation Code <0.040 ng/mL [facility] CBC Auto Differentialon 09-04 Basophils Auto #/vol (Bld) 0.03 K/mcL Invalid Interpretation Code 0.00 - 0.30 [facility] Basophils/100 WBC Auto (Bld) 0.4 % Invalid Interpretation Code [facility] Eosinophils 0.11 K/mcL Invalid Interpretation Code 0.00 - 0.50 [facility] Eosinophils/100 leukocytes 1.3 % Invalid Interpretation Code [facility] Erythrocyte distribution width Auto Entitic volume (RBC) 13.0 % Invalid Interpretation Code 11.6 - 14.8 % [facility] Erythrocytes (RBC) 4.59 M/mcL Invalid Interpretation Code 4.00 - 5.20 [facility] Hematocrit (HCT) 37.7 % Invalid Interpretation Code 36 - 46 % [facility] Hemoglobin mass conc (Bld) 12.8 g/dL Invalid Interpretation Code 12 - 16 g/dL [facility] Immature granulocytes #/vol (Bld) 0.03 K/mcL Invalid Interpretation Code 0.00 - 0.30 [facility] Immature granulocytes/100 WBC (Bld) 0.40 % Invalid Interpretation Code [facility] Comment on above: The IG parameter is the percentage of metamyelocytes, myelocytes, and promyelocytes. Lymphocytes 1.45 K/mcL Invalid Interpretation Code 0.90 - 4.00 [facility] Lymphocytes/100 leukocytes 17.6 % Invalid Interpretation Code [facility] MCH 27.9 pg Invalid Interpretation Code 26 - 34 pg [facility] MCHC mass conc (RBC) 34.0 g/dL Invalid Interpretation Code 31 - 37 g/dL [facility] MCV 82.1 fL Invalid Interpretation Code 80 - 100 fL [facility] Monocytes 0.48 K/mcL Invalid Interpretation Code 0.30 - 0.90 [facility] Monocytes/100 leukocytes 5.8 % Invalid Interpretation Code [facility] Neutrophils 6.15 K/mcL Invalid Interpretation Code 1.70 - 7.00 [facility] Neutrophils/100 WBC Auto (Bld) 74.5 % Invalid Interpretation Code [facility] Nucleated erythrocytes 0.00 K/mcL Invalid Interpretation Code 0.00 - 0.00 [facility] Nucleated erythrocytes/100 erythrocytes 0.0 % Invalid Interpretation Code [facility] Platelet mean volume (PMV) 9.1 fL Invalid Interpretation Code 9 - 15.5 fL [facility] ([facility] LAB Platelets 267 K/mcL Invalid Interpretation Code 150 - 400 [facility] ([facility] WBC (Leukocytes) 8.25 K/mcL Invalid Interpretation Code 4.50 - 11.00 [facility] ([facility] CBC w/ Diffon 09-20-2017 CBC w/ Diff The following orders were created for panel order CBC w/ Diff. Procedure Abnormality Status --------- ------ CBC Auto Differential[[id number]] Final result Please view results for these tests on the individual orders. Invalid Interpretation Code [facility] CT Head Or Brain Without Con traston 09-20-2017 CT Head Or Brain Without Contrast EXAMINATION: CT OF THE HEAD WITHOUT CONTRAST 09/20/2017 TECHNIQUE: CT of the head was performed without the administration of intravenous contrast. Dose modulation, iterative reconstruction, and/or weight based adjustment of the mA/kV was utilized to reduce the radiation dose to as low as reasonably achievable. COMPARISON: None. HISTORY: ORDERING SYSTEM PROVIDED HISTORY: headache fall yesterday; TECHNOLOGIST PROVIDED HISTORY: Reason for Exam: headache Injury/Trauma Acuity: Acute Type of Encounter: Initial Mechanism of Injury: fall yesterday FINDINGS: BRAIN/VENTRICLES: No acute intracranial hemorrhage or extraaxial fluid collection. Mcgowan-white differentiation is maintained. No evidence of mass, mass effect or midline shift. No evidence of hydrocephalus. ORBITS: The visualized portion of the orbits demonstrate no acute abnormality. SINUSES: The visualized paranasal sinuses and mastoid air cells demonstrate no acute abnormality. SOFT TISSUES/SKULL: No acute abnormality of the visualized skull or soft tissues. Invalid Interpretation Code [employer] [facility] CT Head Or Brain Without Contrast No acute intracranial abnormality. Workstation ID: [id number] Invalid Interpretation Code [facility] [employer] [facility] CT Head Or Brain Without Contrast Interface, Rad In Station X - 09/20/2017 8:09 PM EDT EXAMINATION: CT OF THE HEAD WITHOUT CONTRAST 09/20/2017 TECHNIQUE: CT of the head was performed without the administration of intravenous contrast. Dose modulation, iterative reconstruction, and/or weight based adjustment of the mA/kV was utilized to reduce the radiation dose to as low as reasonably achievable. COMPARISON: None. HISTORY: ORDERING SYSTEM PROVIDED HISTORY: headache fall yesterday; TECHNOLOGIST PROVIDED HISTORY: Reason for Exam: headache Injury/Trauma Acuity: Acute Type of Encounter: Initial Mechanism of Injury: fall yesterday FINDINGS: BRAIN/VENTRICLES: No acute intracranial hemorrhage or extraaxial fluid collection. Mcgowan-white differentiation is maintained. No evidence of mass, mass effect or midline shift. No evidence of hydrocephalus. ORBITS: The visualized portion of the orbits demonstrate no acute abnormality. SINUSES: The visualized paranasal sinuses and mastoid air cells demonstrate no acute abnormality. SOFT TISSUES/SKULL: No acute abnormality of the visualized skull or soft tissues. IMPRESSION: No acute intracranial abnormality. Workstation ID: [id number] Invalid Interpretation Code [facility] [place] [facility] 7on 09-20-2017 Anion gap 18 mmol/L Invalid Interpretation Code 10 - 20 mmol/L [facility] Bicarbonate molar conc (S) 25 mmol/L Invalid Interpretation Code 21 - 32 mmol/L [facility] BUN/Creatinine Ratio 16.9 mg/mg Invalid Interpretation Code 10.0 - 20.0 [facility] Chloride 101 mmol/L Invalid Interpretation Code 98 - 108 mmol/L [facility] Creatinine 0.65 mg/dL Invalid Interpretation Code 0.4 - 1.1 mg/dL [facility] eGFR (non-black) The eGFR should be u sed for monitoring renal function only and not for medication dosing. Invalid Interpretation Code [facility] GFR/1.73 sq M.predicted CKD-EPI vol rate/area 123 mL/min/1.73 m2 Invalid Interpretation Code >=60 [facility] Glucose mass conc 101 mg/dL High 65 - 99 mg/dL [facility] Interpretation and review of laboratory results Abnormal Invalid Interpretation Code [facility] Potassium molar conc 3.9 mmol/L Invalid Interpretation Code 3.5 - 5.1 mmol/L [facility] Sodium 140 mmol/L Invalid Interpretation Code 135 - 145 mmol/L [facility] Urea nitrogen 11 mg/dL Invalid Interpretation Code 8 - 25 mg/dL [facility] POC Urine Pregnancyon 2017 HCG ( test) Ql (U) Negative Invalid Interpretation Code Negative [facility] Internal Control Pass Invalid Interpretation Code [facility] Interpretation and review of laboratory results Normal Invalid Interpretation Code [facility] Urine, specific gravity Invalid Interpretation Code 1.005 - 1.025 [facility] Urinalysison 09-20-2017 Bacteria Auto Ql (U) Rare Abnormal None Seen /hpf [facility] Bilirubin Ql (U) Negative Invalid Interpretation Code Negative [facility] Clarity Refractometry automated Nom (U) Hazy Abnormal Clear [facility] Color Auto Nom (U) Yellow Invalid Interpretation Code Colorless, Yellow [facility] Epithelial cells.squamous Auto #/area (Urine sed) 4 /hpf Invalid Interpretation Code 0 - 4 [facility] Glucose Automated test strip mass conc (U) Negative Invalid Interpretation Code Negative mg/dL [facility] Hemoglobin Automated test strip Ql (U) Small Abnormal Negative [facility] Interpretation and review of laboratory results Abnormal Invalid Interpretation Code [facility] Ketones Automated test strip mass conc (U) Negative Invalid Interpretation Code Negative mg/dL [facility] Leukocyte esterase Automated test strip Ql (U) Negative Invalid Interpretation Code Negative [facility] Mucus Auto #/area (Urine sed) Rare Invalid Interpretation Code None Seen, Rare /lpf [facility] Nitrite Automated test strip Ql (U) Negative Invalid Interpretation Code Negative [facility] RBC Auto #/area (Urine sed) 6 /hpf High 0 - 3 [facility] Specific gravity Automated test strip Relative Density (U) 1.016 1 Invalid Interpretation Code 1.005 - 1.025 [facility] Urine, pH 6.0 [pH] Invalid Interpretation Code 5.0 - 7.0 [facility] Urine, protein Negative Invalid Interpretation Code Negative mg/dL [facility] Urine, urobilinogen <2.0 Invalid Interpretation Code <2.0 mg/dL [facility] WBC Auto #/area (Urine sed) 1 /hpf Invalid Interpretation Code 0 - 5 [facility] Urinalysis Microscopic examinat ion is performed on all urinalysis samples and only positive findings are reported. The test for blood on the chemical analytic portion of urinalysis may also be positive due to hemoglobinuria and myoglobinuria and if red blood cells are present they are quantified by microscopic examination. Invalid Interpretation Code [facility] BMPon 09-16-2017 Anion gap 16 mmol/L Invalid Interpretation Code 10 - 20 mmol/L [facility] Bicarbonate molar conc (S) 27 mmol/L Invalid Interpretation Code 21 - 32 mmol/L [facility] BUN/Creatinine Ratio 18.1 mg/mg Invalid Interpretation Code 10.0 - 20.0 [facility] Calcium 9.2 mg/dL Invalid Interpretation Code 8.4 - 10.2 mg/dL [facility] Chloride 101 mmol/L Invalid Interpretation Code 98 - 108 mmol/L [facility] Creatinine 0.72 mg/dL Invalid Interpretation Code 0.4 - 1.1 mg/dL [facility] eGFR (non-black) The eGFR should be u sed for monitoring renal function only and not for medication dosing. Invalid Interpretation Code [facility] GFR/1.73 sq M.predicted CKD-EPI vol rate/area 116 mL/min/1.73 m2 Invalid Interpretation Code >=60 [facility] Glucose mass conc 116 mg/dL High 65 - 99 mg/dL [facility] Interpretation and review of laboratory results Abnormal Invalid Interpretation Code [facility] Potassium molar conc 3.4 mmol/L Low 3.5 - 5 .1 mmol/L [facility] Sodium 141 mmol/L Invalid Interpretation Code 135 - 145 mmol/L [facility] Urea nitrogen 13 mg/dL Invalid Interpretation Code 8 - 25 mg/dL [facility] CBC Auto Differentialon 09-04 Basophils Auto #/vol (Bld) 0.04 K/mcL Invalid Interpretation Code 0.00 - 0.30 [facility] Basophils/100 WBC Auto (Bld) 0.6 % Invalid Interpretation Code [facility] Eosinophils 0.26 K/mcL Invalid Interpretation Code 0.00 - 0.50 [facility] Eosinophils/100 leukocytes 3.6 % Invalid Interpretation Code [facility] Erythrocyte distribution width Auto Entitic volume (RBC) 12.6 % Invalid Interpretation Code 11.6 - 14.8 % [facility] Erythrocytes (RBC) 4.32 M/mcL Invalid Interpretation Code 4.00 - 5.20 [facility] Hematocrit (HCT) 35.4 % Low 36 - 46 % [facility] Hemoglobin mass conc (Bld) 12.2 g/dL Invalid Interpretation Code 12 - 16 g/dL [facility] Immature granulocytes #/vol (Bld) 0.02 K/mcL Invalid Interpretation Code 0.00 - 0.30 [facility] Immature granulocytes/100 WBC (Bld) 0.30 % Invalid Interpretation Code [facility] Comment on above: The IG parameter is the percentage of metamyelocytes, myelocytes, and promyelocytes. Lymphocytes 2.61 K/mcL Invalid Interpretation Code 0.90 - 4.00 [facility] Lymphocytes/100 leukocytes 36.4 % Invalid Interpretation Code [facility] MCH 28.2 pg Invalid Interpretation Code 26 - 34 pg [facility] MCHC mass conc (RBC) 34.5 g/dL Invalid Interpretation Code 31 - 37 g/dL [facility] MCV 81.9 fL Invalid Interpretation Code 80 - 100 fL [facility] Monocytes 0.56 K/mcL Invalid Interpretation Code 0.30 - 0.90 [facility] Monocytes/100 leukocytes 7.8 % Invalid Interpretation Code [facility] Neutrophils 3.68 K/mcL Invalid Interpretation Code 1.70 - 7.00 [facility] Neutrophils/100 WBC Auto (Bld) 51.3 % Invalid Interpretation Code [facility] Nucleated erythrocytes 0.00 K/mcL Invalid Interpretation Code 0.00 - 0.00 [facility] Nucleated erythrocytes/100 erythrocytes 0.0 % Invalid Interpretation Code [facility] Platelet mean volume (PMV) 9.3 fL Invalid Interpretation Code 9 - 15.5 fL [facility] Platelets 260 K/mcL Invalid Interpretation Code 150 - 400 [facility] WBC (Leukocytes) 7.17 K/mcL Invalid Interpretation Code 4.50 - 11.00 [facility] CBC w/ Diffon 09-16-2017 CBC w/ Diff The following orders were created for panel order CBC w/ Diff. Procedure Abnormality Status --------- ------ CBC Auto Differential[[id number]] Abnormal Final result Please view results for these tests on the individual orders. Invalid Interpretation Code [facility] Rush Topon 09-16-2017 Extra Tube Hold for add-ons. Invalid Interpretation Code [facility] Comment on above: Auto resulted. Hepatic Function Panel (LFT) on 09-16-2017 Alanine aminotransferase (ALT) 18 U/L Invalid Interpretation Code 0 - 40 U/L [facility] Albumin 4.4 g/dL Invalid Interpretation Code 3.2 - 5.2 g/dL [facility] Alkaline phosphatase (ALP) 47 U/L Invalid Interpretation Code 40 - 140 U/L [facility] Aspartate aminotransferase (AST) 19 U/L Invalid Interpretation Code 0 - 45 U/L [facility] Bilirubin (conjugated) mg/dL Invalid Interpretation Code 0 - 0.4 mg/dL [facility] Bilirubin (total) mg/dL Invalid Interpretation Code 0 - 1.3 mg/dL [facility] Protein 7.5 g/dL Invalid Interpretation Code 6 - 8 g/dL [facility] Lipaseon 09-16-2017 Interpretation and review of laboratory results Normal Invalid Interpretation Code [facility] Lipase 50 U/L Invalid Interpretation Code 15 - 65 U/L [facility] POC Urine Pregnancyon 2017 HCG ( test) Ql (U) Negative Invalid Interpretation Code Negative [facility] Internal Control Pass Invalid Interpretation Code [facility] Interpretation and review of laboratory results Normal Invalid Interpretation Code [facility] Urine, specific gravity Invalid Interpretation Code 1.005 - 1.025 [facility] Archer Drawon 09-16-2017 Archer Draw The following orders were created for panel order Archer Draw. Procedure Abnormality Status --------- ------ Lavender Top[[id number]] Final result Mint Green Top[[id number]] Final result Gold Top[[id number]] Final result Light Blue Top[[id number]] Final result Rush Top[[id number]] Final result Please view results for these tests on the individual orders. Invalid Interpretation Code [facility] Urinalysison 09-16-2017 Bacteria Auto Ql (U) Rare Abnormal None Seen /hpf [facility] Bilirubin Ql (U) Negative Invalid Interpretation Code Negative [facility] Clarity Refractometry automated Nom (U) Hazy Abnormal Clear [facility] Color Auto Nom (U) Yellow Invalid Interpretation Code Colorless, Yellow [facility] Epithelial cells.squamous Auto #/area (Urine sed) 4 /hpf Invalid Interpretation Code 0 - 4 [facility] Glucose Automated test strip mass conc (U) Negative Invalid Interpretation Code Negative mg/dL [facility] Hemoglobin Automated test strip Ql (U) Large Abnormal Negative [facility] Interpretation and review of laboratory results Abnormal Invalid Interpretation Code [facility] Ketones Automated test strip mass conc (U) Negative Invalid Interpretation Code Negative mg/dL [facility] Leukocyte esterase Automated test strip Ql (U) Negative Invalid Interpretation Code Negative [facility] Mucus Auto #/area (Urine sed) Rare Invalid Interpretation Code None Seen, Rare /lpf [facility] Nitrite Automated test strip Ql (U) Negative Invalid Interpretation Code Negative [facility] RBC Auto #/area (Urine sed) 21 /hpf High 0 - 3 [facility] Specific gravity Automated test strip Relative Density (U) 1.024 1 Invalid Interpretation Code 1.005 - 1.025 [facility] Transitional cells Computer assisted #/area (U) <1 Invalid Interpretation Code 0 - 1 /hpf [facility] Urine, pH 6.0 [pH] Invalid Interpretation Code 5.0 - 7.0 [facility] Urine, protein Negative Invalid Interpretation Code Negative mg/dL [facility] Urine, urobilinogen <2.0 Invalid Interpretation Code <2.0 mg/dL [facility] WBC Auto #/area (Urine sed) 5 /hpf Invalid Interpretation Code 0 - 5 [facility] Urinalysis Microscopic examinat ion is performed on all urinalysis samples and only positive findings are reported. The test for blood on the chemical analytic portion of urinalysis may also be positive due to hemoglobinuria and myoglobinuria and if red blood cells are present they are quantified by microscopic examination. Invalid Interpretation Code [facility] BMPon 09-06-2017 Anion gap 18 mmol/L Invalid Interpretation Code 10 - 20 mmol/L [facility] Bicarbonate (HCO3) 26 mmol/L Invalid Interpretation Code 21 - 32 mmol/L [facility] BUN/Creatinine Ratio 17.2 mg/mg Invalid Interpretation Code 10.0 - 20.0 [facility] Calcium 9.4 mg/dL Invalid Interpretation Code 8.4 - 10.2 mg/dL [facility] Chloride 101 mmol/L Invalid Interpretation Code 98 - 108 mmol/L [facility] Creatinine 0.64 mg/dL Invalid Interpretation Code 0.4 - 1.1 mg/dL [facility] eGFR (non-black) The eGFR should be u sed for monitoring renal function only and not for medication dosing. Invalid Interpretation Code [facility] eGFR (non-black) 124 mL/min/{1.73_m2} Invalid Interpretation Code >=60 [facility] Glucose mass conc 96 mg/dL Invalid Interpretation Code 65 - 99 mg/dL [facility] Potassium molar conc 3.5 mmol/L Invalid Interpretation Code 3.5 - 5.1 mmol/L [facility] Sodium 141 mmol/L Invalid Interpretation Code 135 - 145 mmol/L [facility] Urea nitrogen 11 mg/dL Invalid Interpretation Code 8 - 25 mg/dL [facility] CBC Auto Differentialon Basophils Auto #/vol (Bld) 0.05 K/mcL Invalid Interpretation Code 0.00 - 0.30 [facility] Basophils/100 WBC Auto (Bld) 0.5 % Invalid Interpretation Code [facility] Eosinophils 0.22 K/mcL Invalid Interpretation Code 0.00 - 0.50 [facility] Eosinophils/100 leukocytes 2.4 % Invalid Interpretation Code [facility] Erythrocyte distribution width Auto Entitic volume (RBC) 13.1 % Invalid Interpretation Code 11.6 - 14.8 % [facility] Erythrocytes (RBC) 4.77 M/mcL Invalid Interpretation Code 4.00 - 5.20 [facility] Hematocrit (HCT) 38.9 % Invalid Interpretation Code 36 - 46 % [facility] Hemoglobin mass conc (Bld) 13.4 g/dL Invalid Interpretation Code 12 - 16 g/dL [facility] Immature granulocytes #/vol (Bld) 0.01 K/mcL Invalid Interpretation Code 0.00 - 0.30 [facility] Immature granulocytes/100 WBC (Bld) 0.10 % Invalid Interpretation Code [facility] Comment on above: The IG parameter is the percentage of metamyelocytes, myelocytes, and promyelocytes. Lymphocytes 2.72 K/mcL Invalid Interpretation Code 0.90 - 4.00 [facility] Lymphocytes/100 leukocytes 29.6 % Invalid Interpretation Code [facility] MCH 28.1 pg Invalid Interpretation Code 26 - 34 pg [facility] MCHC mass conc (RBC) 34.4 g/dL Invalid Interpretation Code 31 - 37 g/dL [facility] MCV 81.6 fL Invalid Interpretation Code 80 - 100 fL [facility] Monocytes 0.66 K/mcL Invalid Interpretation Code 0.30 - 0.90 [facility] Monocytes/100 leukocytes 7.2 % Invalid Interpretation Code [facility] Neutrophils 5.54 K/mcL Invalid Interpretation Code 1.70 - 7.00 [facility] Neutrophils/100 WBC Auto (Bld) 60.2 % Invalid Interpretation Code [facility] Nucleated erythrocytes 0.00 K/mcL Invalid Interpretation Code 0.00 - 0.00 [facility] Nucleated erythrocytes/100 erythrocytes 0.0 % Invalid Interpretation Code [facility] Platelet mean volume (PMV) 9.4 fL Invalid Interpretation Code 9 - 15.5 fL [facility] Platelets 280 K/mcL Invalid Interpretation Code 150 - 400 [facility] WBC (Leukocytes) 9.20 K/mcL Invalid Interpretation Code 4.50 - 11.00 [facility] CBC w/ Diffon 09-06-2017 Creatinine The following orders were created for panel order CBC w/ Diff. Procedure Abnormality Status --------- ------ CBC Auto Differential[[id number]] Final result Please view results for these tests on the individual orders. Invalid Interpretation Code [facility] CT Abdomen Pelvis With IV Co ntrast Onlyon 09-06-2017 CT Abdomen Pelvis With IV Contrast Only Interface, Rad In Anton Augusteq - 09/06/2017 9:52 PM EDT EXAMINATION: CT OF THE ABDOMEN AND PELVIS WITH CONTRAST 09/06/2017 TECHNIQUE: CT of the abdomen and pelvis was performed with the administration of intravenous contrast. Multiplanar reformatted images are provided for review. Dose modulation, iterative reconstruction, and/or weight based adjustment of the mA/kV was utilized to reduce the radiation dose to as low as reasonably achievable. COMPARISON: February 2017 HISTORY: ORDERING SYSTEM PROVIDED HISTORY: abd pain; TECHNOLOGIST PROVIDED HISTORY: Reason for Exam: generalized abdominal pain with increasing pain x3 days Illness/Other Acuity: Acute Type of Encounter: Initial Additional signs and symptoms: diarrhea and vomitting; FINDINGS: Lower Chest: Lung bases are clear. Small hiatal hernia is noted Organs: No liver or splenic lesions are noted. No gallstones are noted. There are no pancreatic lesions. No adrenal lesions are noted. Punctate right renal calculus is noted. There is no hydronephrosis. Small low-density lesion in the posterior aspect of the left kidney is noted on image 26. This is too small to characterize likely representing a tiny cyst. GI/Bowel: Segmental incomplete distention of the colon is noted, greatest between the hepatic flexure and mid transverse colon. There is no focal inflammatory change. No disproportionate small-bowel distention is noted. There is no pneumatosis Pelvis: There is no focal inflammatory change. Round low-density in the right hemipelvis is noted centered on axial image 76. . There is a small amount of ill-defined associated high density on axial image 78. Peritoneum/Retroperiton eum: Aorta is normal in caliber. No pathologic adenopathy is noted Bones/Soft Tissues: No destructive bone lesions are noted. IMPRESSION: Nonobstructing right renal calculus Probable tiny right renal cyst on the left Segmental incomplete distention of the colon, most notable in the proximal transverse colon. This is most likely due to underdistention. Colitis less likely. There is no adjacent inflammatory change Ovoid low density in the right hemipelvis with associated faint high density. Given the location, this may represent a small partially hemorrhagic ovarian cyst. Workstation ID: [id number] Invalid Interpretation Code [employer] [facility] CT Abdomen Pelvis With IV Contrast Only Nonobstructing right renal calculus Probable tiny right renal cyst on the left Segmental incomplete distention of the colon, most notable in the proximal transverse colon. This is most likely due to underdistention. Colitis less likely. There is no adjacent inflammatory change Ovoid low density in the right hemipelvis with associated faint high density. Given the location, this may represent a small partially hemorrhagic ovarian cyst. Workstation ID: [id number] Invalid Interpretation Code [employer] [facility] CT Abdomen Pelvis With IV Contrast Only EXAMINATION: CT OF THE ABDOMEN AND PELVIS WITH CONTRAST 09/06/2017 TECHNIQUE: CT of the abdomen and pelvis was performed with the administration of intravenous contrast. Multiplanar reformatted images are provided for review. Dose modulation, iterative reconstruction, and/or weight based adjustment of the mA/kV was utilized to reduce the radiation dose to as low as reasonably achievable. COMPARISON: February 2017 HISTORY: ORDERING SYSTEM PROVIDED HISTORY: abd pain; TECHNOLOGIST PROVIDED HISTORY: Reason for Exam: generalized abdominal pain with increasing pain x3 days Illness/Other Acuity: Acute Type of Encounter: Initial Additional signs and symptoms: diarrhea and vomitting; FINDINGS: Lower Chest: Lung bases are clear. Small hiatal hernia is noted Organs: No liver or splenic lesions are noted. No gallstones are noted. There are no pancreatic lesions. No adrenal lesions are noted. Punctate right renal calculus is noted. There is no hydronephrosis. Small low-density lesion in the posterior aspect of the left kidney is noted on image 26. This is too small to characterize likely representing a tiny cyst. GI/Bowel: Segmental incomplete distention of the colon is noted, greatest between the hepatic flexure and mid transverse colon. There is no focal inflammatory change. No disproportionate small-bowel distention is noted. There is no pneumatosis Pelvis: There is no focal inflammatory change. Round low-density in the right hemipelvis is noted centered on axial image 76. . There is a small amount of ill-defined associated high density on axial image 78. Peritoneum/Retroperiton eum: Aorta is normal in caliber. No pathologic adenopathy is noted Bones/Soft Tissues: No destructive bone lesions are noted. Invalid Interpretation Code [employer] [facility] Gold Topon 09-06-2017 Extra Tube Hold for add-ons. Invalid Interpretation Code [facility] Comment on above: Auto resulted. Hepatic Function Panel (LFT) on 09-06-2017 Alanine aminotransferase (ALT) 21 U/L Invalid Interpretation Code 0 - 40 U/L [facility] Albumin 4.9 g/dL Invalid Interpretation Code 3.2 - 5.2 g/dL [facility] Alkaline phosphatase (ALP) 46 U/L Invalid Interpretation Code 40 - 140 U/L [facility] Aspartate aminotransferase (AST) 21 U/L Invalid Interpretation Code 0 - 45 U/L [facility] Bilirubin (conjugated) mg/dL Invalid Interpretation Code 0 - 0.4 mg/dL [facility] Bilirubin (total) mg/dL Invalid Interpretation Code 0 - 1.3 mg/dL [facility] Interpretation and review of laboratory results Abnormal Invalid Interpretation Code [facility] Protein 8.2 g/dL High 6 - 8 g/dL [facility] Lipaseon 09-06-2017 Interpretation and review of laboratory results Normal Invalid Interpretation Code [facility] Lipase 45 U/L Invalid Interpretation Code 15 - 65 U/L [facility] POC Urine Pregnancyon 2017 HCG ( test) Ql (U) Negative Invalid Interpretation Code Negative [facility] Internal Control Pass Invalid Interpretation Code [facility] Interpretation and review of laboratory results Normal Invalid Interpretation Code [facility] Urine, specific gravity Invalid Interpretation Code 1.005 - 1.025 [facility] Archer Drawon 09-06-2017 Creatinine The following orders were created for panel order Archer Draw. Procedure Abnormality Status --------- ------ Gold Top[[id number]] Final result Light Blue Top[[id number]] Final result Rush Top[[id number]] Final result Please view results for these tests on the individual orders. Invalid Interpretation Code [facility] Urinalysison 09-06-2017 Bilirubin Ql (U) Negative Invalid Interpretation Code Negative [facility] Blood, Urine Negative Invalid Interpretation Code Negative [facility] Interpretation and review of laboratory results Abnormal Invalid Interpretation Code [facility] Mucus, Urine Rare Invalid Interpretation Code None Seen, Rare /lpf [facility] Nitrite, Urine Negative Invalid Interpretation Code Negative [facility] Squamous Epithelial 4 /hpf Invalid Interpretation Code 0 - 4 [facility] Urine, bacteria in sediment Rare Abnormal None Seen /hpf [facility] Urine, clarity Hazy Abnormal Clear [facility] Urine, color Yellow Invalid Interpretation Code Colorless, Yellow [facility] Urine, erythrocytes 11 /hpf High 0 - 3 [facility] Urine, glucose presence Negative Invalid Interpretation Code Negative mg/dL [facility] Urine, ketones presence Negative Invalid Interpretation Code Negative mg/dL [facility] Urine, leukocyte esterase presence Negative Invalid Interpretation Code Negative [facility] Urine, pH 7.0 [pH] Invalid Interpretation Code 5.0 - 7.0 [facility] Urine, protein Negative Invalid Interpretation Code Negative mg/dL [facility] Urine, specific gravity 1.026 1 High 1.005 - 1.025 [facility] Urine, urobilinogen <2.0 Invalid Interpretation Code <2.0 mg/dL [facility] WBCs, Urine 1 /hpf Invalid Interpretation Code 0 - 5 [facility] Urinalysis Microscopic examinat ion is performed on all urinalysis samples and only positive findings are reported. The test for blood on the chemical analytic portion of urinalysis may also be positive due to hemoglobinuria and myoglobinuria and if red blood cells are present they are quantified by microscopic examination. Invalid Interpretation Code [facility] CBC Auto Differentialon 05-3 Basophils 0.05 K/mcL Invalid Interpretation Code 0.00 - 0.30 [facility] Basophils/100 leukocytes 0.5 % Invalid Interpretation Code [facility] Eosinophils 0.22 K/mcL Invalid Interpretation Code 0.00 - 0.50 [facility] Eosinophils/100 leukocytes 2.3 % Invalid Interpretation Code [facility] Erythrocytes (RBC) 0.00 K/mcL Invalid Interpretation Code 0.00 - 0.00 [facility] Erythrocytes (RBC) 4.59 M/mcL Invalid Interpretation Code 4.00 - 5.20 [facility] Hematocrit (HCT) 38.4 % Invalid Interpretation Code 36 - 46 % [facility] Hemoglobin (HGB) 12.8 g/dL Invalid Interpretation Code 12 - 16 g/dL [facility] IG Absolute 0.03 K/mcL Invalid Interpretation Code 0.00 - 0.30 [facility] IG Percent 0.30 % Invalid Interpretation Code [facility] Lymphocytes 2.17 K/mcL Invalid Interpretation Code 0.90 - 4.00 [facility] Lymphocytes/100 leukocytes 22.7 % Invalid Interpretation Code [facility] MCH 27.9 pg Invalid Interpretation Code 26 - 34 pg [facility] MCHC 33.3 g/dL Invalid Interpretation Code 31 - 37 g/dL [facility] MCV 83.7 fL Invalid Interpretation Code 80 - 100 fL [facility] Monocytes 0.61 K/mcL Invalid Interpretation Code 0.30 - 0.90 [facility] Monocytes/100 leukocytes 6.4 % Invalid Interpretation Code [facility] Neutrophils 6.48 K/mcL Invalid Interpretation Code 1.70 - 7.00 [facility] Neutrophils/100 leukocytes 67.8 % Invalid Interpretation Code [facility] Nucleated erythrocytes/100 erythrocytes 0.0 % Invalid Interpretation Code [facility] Platelet mean volume (PMV) 9.6 fL Invalid Interpretation Code 9 - 15.5 fL [facility] Platelets 247 K/mcL Invalid Interpretation Code 150 - 400 [facility] RDW-CA 12.8 % Invalid Interpretation Code 11.6 - 14.8 % [facility] WBC (Leukocytes) 9.29 K/mcL Invalid Interpretation Code 4.50 - 11.00 [facility] CBC and Differentialon 08-03 Creatinine The following orders were created for panel order CBC and Differential. Procedure Abnormality Status --------- ------ CBC Auto Differential[[id number]] Final result Please view results for these tests on the individual orders. Invalid Interpretation Code [facility] Comprehensive Metabolic Pane vincent 08-03-2017 Alanine aminotransferase (ALT) 38 U/L Invalid Interpretation Code 0 - 40 U/L [facility] Albumin 4.3 g/dL Invalid Interpretation Code 3.2 - 5.2 g/dL [facility] Alkaline phosphatase (ALP) 40 U/L Invalid Interpretation Code 40 - 140 U/L [facility] Anion gap 18 mmol/L Invalid Interpretation Code 10 - 20 mmol/L [facility] Aspartate aminotransferase (AST) 23 U/L Invalid Interpretation Code 0 - 45 U/L [facility] Bicarbonate (HCO3) 24 mmol/L Invalid Interpretation Code 21 - 32 mmol/L [facility] Bilirubin (total) mg/dL Invalid Interpretation Code 0 - 1.3 mg/dL [facility] BUN/Creatinine Ratio 19.3 mg/mg Invalid Interpretation Code 10.0 - 20.0 [facility] Calcium 9.0 mg/dL Invalid Interpretation Code 8.4 - 10.2 mg/dL [facility] Chloride 100 mmol/L Invalid Interpretation Code 98 - 108 mmol/L [facility] Creatinine 0.57 mg/dL Invalid Interpretation Code 0.4 - 1.1 mg/dL [facility] eGFR (non-black) 128 mL/min/{1.73_m2} Invalid Interpretation Code >=60 [facility] eGFR (non-black) The eGFR should be u sed for monitoring renal function only and not for medication dosing. Invalid Interpretation Code [facility] Glucose 109 mg/dL High 65 - 99 mg/dL [facility] Interpretation and review of laboratory results Abnormal Invalid Interpretation Code [facility] Potassium 3.5 mmol/L Invalid Interpretation Code 3.5 - 5.1 mmol/L [facility] Protein 7.5 g/dL Invalid Interpretation Code 6 - 8 g/dL [facility] Sodium 138 mmol/L Invalid Interpretation Code 135 - 145 mmol/L [facility] Urea nitrogen 11 mg/dL Invalid Interpretation Code 8 - 25 mg/dL [facility] Gold Topon 08-03-2017 Extra Tube Hold for add-ons. Invalid Interpretation Code [facility] Ruhs Topon 08-03-2017 Extra Tube Hold for add-ons. Invalid Interpretation Code [facility] Lipaseon 08-03-2017 Interpretation and review of laboratory results Normal Invalid Interpretation Code [facility] Lipase 32 U/L Invalid Interpretation Code 15 - 65 U/L [facility] Seneca Topon 08-03-2017 Seneca Top Invalid Interpretation Code [facility] Archer Drawon 08-03-2017 Creatinine The following orders were created for panel order Archer Draw. Procedure Abnormality Status --------- ------ Gold Top[[id number]] Final result Please view results for these tests on the individual orders. Invalid Interpretation Code [facility] US Pelvic Transabdominal And Transvaginal With Color Flowon 08-03-2017 US Pelvic Transabdominal And Transvaginal With Color Flow Normal ultrasound of the pelvis. Normal ovarian color Doppler. Workstation ID: [id number] Invalid Interpretation Code [facility] US Pelvic Transabdominal And Transvaginal With Color Flow Interface, Rad In Station Xq - 08/03/2017 5:35 PM EDT TRANSABDOMINAL AND TRANSVAGINAL PELVIC ULTRASOUND WITH PELVIS COLOR DUPLEX HISTORY: Pelvic pain. COMPARISON: CT abdomen and pelvis 02/22/2017. FINDINGS: TRANSABDOMINAL: The uterus measures 7.1 x 4.7 x 3.8 cm. There are no myometrial masses. The endometrium measures 7 mm. TRANSVAGINAL: The right ovary measures 4.6 x 2.8 x 3.1 cm. The left ovary measures 2.8 x 2.0 x 1.7 cm. There are physiologic cysts bilaterally. There is no free fluid seen within the cul-de-sac. COLOR DUPLEX: There is normal blood flow seen in both the left and right ovaries. There are normal ovarian arterial and venous spectral waveforms. The right resistive index measures 0.70 and the left resistive index measures 0.61. IMPRESSION: Normal ultrasound of the pelvis. Normal ovarian color Doppler. Workstation ID: [id number] Invalid Interpretation Code [employer] [facility] US Pelvic Transabdominal And Transvaginal With Color Flow TRANSABDOMINAL AND TRANSVAGINAL PELVIC ULTRASOUND WITH PELVIS COLOR DUPLEX HISTORY: Pelvic pain. COMPARISON: CT abdomen and pelvis 02/22/2017. FINDINGS: TRANSABDOMINAL: The uterus measures 7.1 x 4.7 x 3.8 cm. There are no myometrial masses. The endometrium measures 7 mm. TRANSVAGINAL: The right ovary measures 4.6 x 2.8 x 3.1 cm. The left ovary measures 2.8 x 2.0 x 1.7 cm. There are physiologic cysts bilaterally. There is no free fluid seen within the cul-de-sac. COLOR DUPLEX: There is normal blood flow seen in both the left and right ovaries. There are normal ovarian arterial and venous spectral waveforms. The right resistive index measures 0.70 and the left resistive index measures 0.61. Invalid Interpretation Code [employer] [facility] Urinalysison 08-03-2017 Bilirubin, Urine Negative Invalid Interpretation Code Negative [facility] LAB Blood, Urine Negative Invalid Interpretation Code Negative [facility] Interpretation and review of laboratory results Abnormal Invalid Interpretation Code [facility] Mucus, Urine Rare Invalid Interpretation Code None Seen, Rare /lpf [facility] Nitrite, Urine Negative Invalid Interpretation Code Negative [facility] RBCs, Urine 2 /hpf Invalid Interpretation Code 0 - 3 [facility] Squamous Epithelial 2 /hpf Invalid Interpretation Code 0 - 4 [facility] Urine, bacteria in sediment Few Abnormal None Seen /hpf [facility] Urine, clarity Hazy Abnormal Clear [facility] Urine, color Yellow Invalid Interpretation Code Colorless, Yellow [facility] Urine, glucose presence Negative Invalid Interpretation Code Negative mg/dL [facility] Urine, ketones presence Trace Abnormal Negative mg/dL [facility] Urine, leukocyte esterase presence Negative Invalid Interpretation Code Negative [facility] Urine, pH 5.0 [pH] Invalid Interpretation Code 5.0 - 7.0 [facility] Urine, protein Negative Invalid Interpretation Code Negative mg/dL [facility] Urine, specific gravity 1.020 1 Invalid Interpretation Code 1.005 - 1.025 [facility] Urine, urobilinogen <2.0 Invalid Interpretation Code <2.0 mg/dL [facility] WBCs, Urine 2 /hpf Invalid Interpretation Code 0 - 5 [facility] Urinalysis Microscopic examinat ion is performed on all urinalysis samples and only positive findings are reported. The test for blood on the chemical analytic portion of urinalysis may also be positive due to hemoglobinuria and myoglobinuria and if red blood cells are present they are quantified by microscopic examination. Invalid Interpretation Code [facility] hCG, Blood, Quantitativeon 0 08-03-2017 B-HCG Males and nonpregnan t females: <5 mIU/mL Females during : 3-4 weeks 9-130 mIU/mL 4-5 weeks 75-2600 mIU/mL 5-6 weeks 850-20,800 mIU/mL 6-7 weeks 4000-100,200 mIU/mL 7-12 weeks 11,500-289,000 mIU/mL 12-16 weeks 18,300-137,000 mIU/mL 16-29 weeks 1,400-53,000 mIU/mL 29-41 weeks 940-60,000 mIU/mL Invalid Interpretation Code [facility] Choriogonadotropin (HCG) m[IU]/mL Invalid Interpretation Code 0 - 5 mIU/mL [facility] Interpretation and review of laboratory results Normal Invalid Interpretation Code [facility] BMPon 05-24-2017 Anion gap 18 mmol/L Invalid Interpretation Code 10 - 20 mmol/L [facility] Bicarbonate (HCO3) 26 mmol/L Invalid Interpretation Code 21 - 32 mmol/L [facility] BUN/Creatinine Ratio 17.2 mg/mg Invalid Interpretation Code 10.0 - 20.0 [facility] Calcium 9.2 mg/dL Invalid Interpretation Code 8.4 - 10.2 mg/dL [facility] Chloride 99 mmol/L Invalid Interpretation Code 98 - 108 mmol/L [facility] Creatinine 0.64 mg/dL Invalid Interpretation Code 0.4 - 1.1 mg/dL [facility] LAB eGFR (non-black) 124 mL/min/{1.73_m2} Invalid Interpretation Code >=60 [facility] eGFR (non-black) The eGFR should be u sed for monitoring renal function only and not for medication dosing. Invalid Interpretation Code [facility] Glucose 101 mg/dL High 65 - 99 mg/dL [facility] Potassium 3.5 mmol/L Invalid Interpretation Code 3.5 - 5.1 mmol/L [facility] Sodium 139 mmol/L Invalid Interpretation Code 135 - 145 mmol/L [facility] Urea nitrogen 11 mg/dL Invalid Interpretation Code 8 - 25 mg/dL [facility] CBC Auto Differentialon 03-2 0-2018 Basophils 0.02 K/mcL Invalid Interpretation Code 0.00 - 0.30 [facility] Basophils/100 leukocytes 0.2 % Invalid Interpretation Code [facility] Eosinophils 0.21 K/mcL Invalid Interpretation Code 0.00 - 0.50 [facility] Eosinophils/100 leukocytes 2.4 % Invalid Interpretation Code [facility] Erythrocytes (RBC) 4.57 M/mcL Invalid Interpretation Code 4.00 - 5.20 [facility] Hematocrit (HCT) 38.2 % Invalid Interpretation Code 36 - 46 % [facility] Hemoglobin (HGB) 13.0 g/dL Invalid Interpretation Code 12 - 16 g/dL [facility] Interpretation and review of laboratory results Normal Invalid Interpretation Code [facility] Lymphocytes 2.12 K/mcL Invalid Interpretation Code 0.90 - 4.00 [facility] Lymphocytes/100 leukocytes 24.0 % Invalid Interpretation Code [facility] MCH 28.4 pg Invalid Interpretation Code 26 - 34 pg [facility] MCHC 34.0 g/dL Invalid Interpretation Code 31 - 37 g/dL [facility] MCV 83.6 fL Invalid Interpretation Code 80 - 100 fL [facility] Monocytes 0.68 K/mcL Invalid Interpretation Code 0.30 - 0.90 [facility] Monocytes/100 leukocytes 7.7 % Invalid Interpretation Code [facility] Neutrophils 5.80 K/mcL Invalid Interpretation Code 1.70 - 7.00 [facility] Neutrophils/100 leukocytes 65.7 % Invalid Interpretation Code [facility] Platelet mean volume (PMV) 9.5 fL Invalid Interpretation Code 9 - 15.5 fL [facility] Platelets 255 K/mcL Invalid Interpretation Code 150 - 400 [facility] RDW-CA 13.1 % Invalid Interpretation Code 11.6 - 14.8 % [facility] WBC (Leukocytes) 8.83 K/mcL Invalid Interpretation Code 4.50 - 11.00 [facility] CBC w/ Diffon 05-24-2017 Creatinine The following orders were created for panel order CBC w/ Diff. Procedure Abnormality Status --------- ------ CBC Auto Differential[[id number]] Normal Final result Please view results for these tests on the individual orders. Invalid Interpretation [facility]-24-2017 Extra Tube Hold for add-ons. Invalid Interpretation Code [facility] Hepatic Function Panelon Alanine aminotransferase (ALT) 22 U/L Invalid Interpretation Code 0 - 40 U/L [facility] Albumin 4.8 g/dL Invalid Interpretation Code 3.2 - 5.2 g/dL [facility] Alkaline phosphatase (ALP) 45 U/L Invalid Interpretation Code 40 - 140 U/L [facility] Aspartate aminotransferase (AST) 20 U/L Invalid Interpretation Code 0 - 45 U/L [facility] Bilirubin (conjugated) 0.1 mg/dL Invalid Interpretation Code 0 - 0.4 mg/dL [facility] Bilirubin (total) mg/dL Invalid Interpretation Code 0 - 1.3 mg/dL [facility] Interpretation and review of laboratory results Abnormal Invalid Interpretation Code [facility] Protein 8.3 g/dL High 6 - 8 g/dL [facility] LAB Lipaseon 05-24-2017 Lipase 44 U/L Invalid Interpretation Code 15 - 65 U/L [facility] Archer Drawon 05-24-2017 Creatinine The following orders were created for panel order Archer Draw. Procedure Abnormality Status --------- ------ Urine Yellow Container[[id number]] Final result Please view results for these tests on the individual orders. Invalid Interpretation Code [facility] Creatinine The following orders were created for panel order Archer Draw. Procedure Abnormality Status --------- ------ Lavender Top[[id number]] Final result Mint Green Top[[id number]] Final result Gold Top[[id number]] Final result Light Blue Top[[id number]] Final result Rush Top[[id number]] Final result Please view results for these tests on the individual orders. Invalid Interpretation Code [facility] Urinalysison 05-24-2017 Bilirubin, Urine Negative Invalid Interpretation Code Negative [facility] Blood, Urine Negative Invalid Interpretation Code Negative [facility] Interpretation and review of laboratory results Abnormal Invalid Interpretation Code [facility] Mucus, Urine Few Abnormal None Seen, Rare /lpf [facility] Nitrite, Urine Negative Invalid Interpretation Code Negative [facility] RBCs, Urine 16 /hpf High 0 - 3 [facility] Squamous Epithelial 3 /hpf Invalid Interpretation Code 0 - 4 [facility] Urine, bacteria in sediment Rare Abnormal None Seen /hpf [facility] Urine, clarity Hazy Abnormal Clear [facility] Urine, color Yellow Invalid Interpretation Code Colorless, Yellow [facility] Urine, glucose presence Negative Invalid Interpretation Code Negative mg/dL [facility] Urine, ketones presence Negative Invalid Interpretation Code Negative mg/dL [facility] Urine, leukocyte esterase presence Negative Invalid Interpretation Code Negative [facility] Urine, pH 5.0 [pH] Invalid Interpretation Code 5.0 - 7.0 [facility] Urine, protein 100 Abnormal Negative mg/dL [facility] Urine, specific gravity 1.028 1 High 1.005 - 1.025 [facility] Urine, urobilinogen <2.0 Invalid Interpretation Code <2.0 mg/dL [facility] LAB WBCs, Urine 1 /hpf Invalid Interpretation Code 0 - 5 [facility] Urinalysis Microscopic examinat ion is performed on all urinalysis samples and only positive findings are reported. The test for blood on the chemical analytic portion of urinalysis may also be positive due to hemoglobinuria and myoglobinuria and if red blood cells are present they are quantified by microscopic examination. Invalid Interpretation Code [facility] LAB Urine Yellow Containeron Urine Yellow Container Invalid Interpretation Code [facility] CBC Auto Differentialon 02-04 Basophils 0.02 K/mcL Invalid Interpretation Code 0.00 - 0.30 [facility] Basophils/100 leukocytes 0.4 % Invalid Interpretation Code [facility] Eosinophils 0.39 K/mcL Invalid Interpretation Code 0.00 - 0.50 [facility] Eosinophils/100 leukocytes 7.4 % Invalid Interpretation Code [facility] Erythrocytes (RBC) 4.84 M/mcL Invalid Interpretation Code 4.00 - 5.20 [facility] Erythrocytes (RBC) 0.00 K/mcL Invalid Interpretation Code 0.00 - 0.00 [facility] Hematocrit (HCT) 40.6 % Invalid Interpretation Code 36 - 46 % [facility] Hemoglobin (HGB) 13.7 g/dL Invalid Interpretation Code 12 - 16 g/dL [facility] Interpretation and review of laboratory results Normal Invalid Interpretation Code [facility] Lymphocytes 1.67 K/mcL Invalid Interpretation Code 0.90 - 4.00 [facility] Lymphocytes/100 leukocytes 31.6 % Invalid Interpretation Code [facility] MCH 28.3 pg Invalid Interpretation Code 26 - 34 pg [facility] MCHC 33.7 g/dL Invalid Interpretation Code 31 - 37 g/dL [facility] MCV 83.9 fL Invalid Interpretation Code 80 - 100 fL [facility] Monocytes 0.45 K/mcL Invalid Interpretation Code 0.30 - 0.90 [facility] Monocytes/100 leukocytes 8.5 % Invalid Interpretation Code [facility] Neutrophils 2.75 K/mcL Invalid Interpretation Code 1.70 - 7.00 [facility] Neutrophils/100 leukocytes 52.1 % Invalid Interpretation Code [facility] Nucleated erythrocytes/100 erythrocytes 0.0 % Invalid Interpretation Code [facility] Platelet mean volume (PMV) 9.5 fL Invalid Interpretation Code 9 - 15.5 fL [facility] Platelets 232 K/mcL Invalid Interpretation Code 150 - 400 [facility] RDW-CA 13.0 % Invalid Interpretation Code 11.6 - 14.8 % [facility] WBC (Leukocytes) 5.28 K/mcL Invalid Interpretation Code 4.50 - 11.00 [facility] CBC w/ Diffon 02-22-2017 Creatinine The following orders were created for panel order CBC w/ Diff. Procedure Abnormality Status --------- ------ CBC Auto Differential[[id number]] Normal Final result Please view results for these tests on the individual orders. Invalid Interpretation Code [facility] Work Phone: CMPon 02-22-2017 Alanine aminotransferase (ALT) 23 U/L Invalid Interpretation Code 0 - 40 U/L [facility] Albumin 4.9 g/dL Invalid Interpretation Code 3.2 - 5.2 g/dL [facility] Alkaline phosphatase (ALP) 44 U/L Invalid Interpretation Code 40 - 140 U/L [facility] Anion gap 18 mmol/L Invalid Interpretation Code 10 - 20 mmol/L [facility] Aspartate aminotransferase (AST) 23 U/L Invalid Interpretation Code 0 - 45 U/L [facility] Bicarbonate (HCO3) 26 mmol/L Invalid Interpretation Code 21 - 32 mmol/L [facility] Bilirubin (total) mg/dL Invalid Interpretation Code 0 - 1.3 mg/dL [facility] BUN/Creatinine Ratio 17.4 mg/mg Invalid Interpretation Code 10.0 - 20.0 [facility] Calcium 9.7 mg/dL Invalid Interpretation Code 8.4 - 10.2 mg/dL [facility] Chloride 102 mmol/L Invalid Interpretation Code 98 - 108 mmol/L [facility] Creatinine 0.69 mg/dL Invalid Interpretation Code 0.4 - 1.1 mg/dL [facility] eGFR (non-black) 121 mL/min/{1.73_m2} Invalid Interpretation Code >=60 [facility] eGFR (non-black) The eGFR should be u sed for monitoring renal function only and not for medication dosing. Invalid Interpretation Code [facility] Glucose 92 mg/dL Invalid Interpretation Code 65 - 99 mg/dL [facility] Interpretation and review of laboratory results Abnormal Invalid Interpretation Code [facility] Potassium 3.7 mmol/L Invalid Interpretation Code 3.5 - 5.1 mmol/L [facility] Protein 8.5 g/dL High 6 - 8 g/dL [facility] Sodium 142 mmol/L Invalid Interpretation Code 135 - 145 mmol/L [facility] Urea nitrogen 12 mg/dL Invalid Interpretation Code 8 - 25 mg/dL [facility] CT Abdomen Pelvis Without Co ntraston 02-22-2017 CT Abdomen Pelvis Without Contrast Interface, Rad In [facility] - 02/22/2017 9:05 PM EST CLINICAL HISTORY: Left-sided abdominal pain. EXAMINATION: UNENHANCED CT SCAN OF THE ABDOMEN AND PELVIS 02/22/2017 COMPARISON: Unenhanced CT scan of the abdomen and pelvis 06/20/2011. TECHNIQUE: 3.75 mm axial images from lung bases through ischial tuberosities without intravenous or oral contrast were obtained. Sagittal, coronal reconstructions were performed. Dose reduction techniques were achieved by using automated exposure control and/or adjustment of mA and/or kV according to patient size and/or use of iterative reconstruction technique. FINDINGS: The visualized lung bases demonstrate no focal abnormalities. The visualized cardiac, posterior mediastinal structures are normal. CT ABDOMEN: For a noncontrast study, the liver, gallbladder, spleen, pancreas, adrenal glands appear normal. There is no hydronephrosis, nephrolithiasis, perinephric fat stranding or ureterolithiasis on the left. The right kidney has a nonobstructing 3 mm calculus in the midpole. There is no hydronephrosis, perinephric fat stranding, ureterolithiasis on the right. The abdominal aorta has normal caliber. There are no abnormally dilated loops of small or large bowel. There is a normal-appearing appendix. CT PELVIS: The bladder, uterus, ovaries appear normal. There is no pelvic, retroperitoneal adenopathy. No focal fluid collections. Visualized osseous structures demonstrate no gross abnormalities. IMPRESSION: 1. Nonobstructing calculus in the right kidney. Otherwise, no obstructive uropathy. 2. Normal-appearing appendix. 3. No acute process otherwise to explain patient's symptoms. [employer] Workstation ID: [id number] Invalid Interpretation Code [facility] CT Abdomen Pelvis Without Contrast CLINICAL HISTORY: Left-sided abdominal pain. EXAMINATION: UNENHANCED CT SCAN OF THE ABDOMEN AND PELVIS 02/22/2017 COMPARISON: Unenhanced CT scan of the abdomen and pelvis 06/20/2011. TECHNIQUE: 3.75 mm axial images from lung bases through ischial tuberosities without intravenous or oral contrast were obtained. Sagittal, coronal reconstructions were performed. Dose reduction techniques were achieved by using automated exposure control and/or adjustment of mA and/or kV according to patient size and/or use of iterative reconstruction technique. FINDINGS: The visualized lung bases demonstrate no focal abnormalities. The visualized cardiac, posterior mediastinal structures are normal. CT ABDOMEN: For a noncontrast study, the liver, gallbladder, spleen, pancreas, adrenal glands appear normal. There is no hydronephrosis, nephrolithiasis, perinephric fat stranding or ureterolithiasis on the left. The right kidney has a nonobstructing 3 mm calculus in the midpole. There is no hydronephrosis, perinephric fat stranding, ureterolithiasis on the right. The abdominal aorta has normal caliber. There are no abnormally dilated loops of small or large bowel. There is a normal-appearing appendix. CT PELVIS: The bladder, uterus, ovaries appear normal. There is no pelvic, retroperitoneal adenopathy. No focal fluid collections. Visualized osseous structures demonstrate no gross abnormalities. Invalid Interpretation Code [employer] [facility] CT Abdomen Pelvis Without Contrast 1. Nonobstructing calculus in the right kidney. Otherwise, no obstructive uropathy. 2. Normal-appearing appendix. 3. No acute process otherwise to explain patient's symptoms. [employer] Workstation ID: [id number] Invalid Interpretation Code [employer] [facility] Gold Topon 02-22-2017 Extra Tube Hold for add-ons. Invalid Interpretation Code [facility] HCG (QUALITATIVE)on 02-23-20 17 Beta-hCG Qual Negative Invalid Interpretation Code Negative [facility] HCG (QUALITATIVE) Negative: The result is less than or equal to 5 mIU/mL of HCG. Invalid Interpretation Code [facility] Archer Drawon 02-22-2017 Creatinine The following orders were created for panel order Archer Draw. Procedure Abnormality Status --------- ------ Lavender Top[[id number]] Final result Mint Green Top[[id number]] Final result Gold Top[[id number]] Final result Light Blue Top[[id number]] Final result Rush Top[[id number]] Final result Please view results for these tests on the individual orders. Invalid Interpretation Code [facility] Work Phone: Urinalysison 02-22-2017 Bilirubin, Urine Negative Invalid Interpretation Code Negative [facility] Blood, Urine Small Abnormal Negative [facility] Hyaline Casts 0-2 Invalid Interpretation Code 0 - 2 /lpf [facility] Interpretation and review of laboratory results Abnormal Invalid Interpretation Code [facility] Mucus, Urine Few Abnormal None Seen, Rare /lpf [facility] Nitrite, Urine Negative Invalid Interpretation Code Negative [facility] RBCs, Urine 4 /hpf High 0 - 3 [facility] Squamous Epithelial 11 /hpf High 0 - 4 DM L AB Urine, bacteria in sediment Rare Abnormal None Seen /hpf [facility] Urine, clarity Cloudy Abnormal Clear [facility] Urine, color Yellow Invalid Interpretation Code Colorless, Yellow [facility] Urine, glucose presence Negative Invalid Interpretation Code Negative mg/dL [facility] Urine, ketones presence Negative Invalid Interpretation Code Negative mg/dL [facility] Urine, leukocyte esterase presence Negative Invalid Interpretation Code Negative [facility] Urine, pH 5.0 [pH] Invalid Interpretation Code 5.0 - 7.0 [facility] Urine, protein 30 Abnormal Negative mg/dL [facility] Urine, specific gravity 1.026 1 High 1.005 - 1.025 [facility] Urine, urobilinogen <2.0 Invalid Interpretation Code <2.0 mg/dL [facility] WBCs, Urine 2 /hpf Invalid Interpretation Code 0 - 5 [facility] Urinalysis Microscopic examinat ion is performed on all urinalysis samples and only positive findings are reported. The test for blood on the chemical analytic portion of urinalysis may also be positive due to hemoglobinuria and myoglobinuria and if red blood cells are present they are quantified by microscopic examination. Invalid Interpretation Code [facility] Wet Preparationon 02-22-2017 Clue Cells, Wet Prep No Clue Cells Seen Invalid Interpretation Code No Clue Cells Seen [facility] Interpretation and review of laboratory results Normal Invalid Interpretation Code [facility] Trich, Wet Prep No Trichomonas Seen Invalid Interpretation Code No Trichomonas Seen [facility] WBC (Leukocytes) No WBC's Seen Invalid Interpretation Code No WBC's Seen [facility] Yeast w/hyphae, Wet prep No Yeast with Hyphae Seen Invalid Interpretation Code No Yeast with Hyphae Seen [facility] Yeast, Wet Prep No Yeast Seen Invalid Interpretation Code No Yeast Seen [facility] Insulin-like growth factoron 07-16-2016 IGF-1, LC/MS 241 ng/mL Invalid Interpretation Code 73 - 320 [facility] Z- Score 1.04 SD Invalid Interpretation Code -2.0 - 2.0 [facility] Vital Signs Date Time Vital Sign Value Performing Clinician Faci lity 07-25-2024 14:30-0400 Body height 149.9 cm Nat [employer] Work Phone: [facility] [employer] 07-25-2024 14:30-0400 Body mass index (BMI) [Ratio] 24.84 kg/m2 Nat [employer]camp[employer] Work Phone: [facility] [employer] 07-25-2024 14:30-0400 Body weight 55.79 kg Nat Ocamp[employer] Work Phone: [facility] [employer] 07-24-2024 09:45-0400 Body height 149.9 cm Kelsie Cotto MD Work Phone: [facility] [employer] 07-24-2024 09:45-0400 Body mass index (BMI) [Ratio] 24.84 kg/m2 Kelsie Cotto MD Work Phone: [facility] [employer] 07-24-2024 09:45-0400 Body weight 55.79 kg Kelsie Cotto MD Work Phone: [facility] [employer] 07-24-2024 09:45-0400 Diastolic blood pressure 70 mm[Hg] Kelsie Cotto MD Work Phone: [facility] [employer] 07-24-2024 09:45-0400 Systolic blood pressure 112 mm[Hg] Kelsie Cotto MD Work Phone: [facility] [employer] 07-23-2024 20:25-0400 Diastolic blood pressure 70 mm[Hg] Reanna Loco DO Work Phone: [facility] [employer] 07-23-2024 20:25-0400 Heart rate 78 /min Reanna Loco DO Work Phone: [facility] [employer] 07-23-2024 20:25-0400 Respiratory rate 18 /min Reanna Loco DO Work Phone: [facility] [employer] 07-23-2024 20:25-0400 SaO2% (BldA) [Mass fraction] 100 % Reanna Loco DO Work Phone: [facility] [employer] 07-23-2024 20:25-0400 Systolic blood pressure 94 mm[Hg] Reanna Loco DO Work Phone: [facility] [employer] 07-23-2024 18:32-0400 Body temperature 98.29 [degF] Reanna Beronica DO Work Phone: [facility] [employer] 06-30-2024 15:26-0400 Diastolic blood pressure 66 mm[Hg] Reanna Lew MD Work Phone: [facility] [employer] 06-30-2024 15:26-0400 Heart rate 73 /min Reanna Lew MD Work Phone: [facility] [employer] 06-30-2024 15:26-0400 Respiratory rate 18 /min Reanna Lew MD Work Phone: [facility] [employer] 06-30-2024 15:26-0400 SaO2% (BldA) [Mass fraction] 100 % Reanna Lew MD Work Phone: [facility] [employer] 06-30-2024 15:26-0400 Systolic blood pressure 111 mm[Hg] Reanna Lew MD Work Phone: [facility] [employer] 06-30-2024 14:24-0400 Body temperature 97.9 [degF] Reanna Lew MD Work Phone: [facility] [employer] 06-30-2024 12:33-0400 Body mass index (BMI) [Ratio] 24.84 kg/m2 Kiesha Forrest DISINTEGRATOR - GARAGE LABORER Work Phone: [facility] [employer] 06-30-2024 12:33-0400 Body temperature 97.2 [degF] Kiehsa Forrest DISINTEGRATOR - [employer]ARAGE LABORER Work Phone: [facility] [employer] 06-30-2024 12:33-0400 Body weight 55.79 kg Kiesha Kaufmand DISINTEGRATOR - GARAGE LABORER Work Phone: [facility] [employer] 06-30-2024 12:33-0400 Diastolic blood pressure 87 mm[Hg] Kiesha HammondsJose DISINTEGRATOR - [employer]ARAGE LABORER Work Phone: [facility] [employer] 06-30-2024 12:33-0400 Heart rate 72 /min Kiesha Kaufmand DISINTEGRATOR - [employer]ARAGE LABORER Work Phone: [facility] [employer] 06-30-2024 12:33-0400 SaO2% (BldA) [Mass fraction] 100 % Kiesha Kaufmand DISINTEGRATOR - GARAGE LABORER Work Phone: [facility] [employer] 06-30-2024 12:33-0400 Systolic blood pressure 123 mm[Hg] Kiesha Mena-Jose DISINTEGRATOR - GARAGE LABORER Work Phone: [facility] [employer] 05-10-2024 13:50-0500 Body temperature 98.1 [degF] Tip Swan DISINTEGRATOR - [employer]ARAGE LABORER Work Phone: [facility] [employer] 05-10-2024 13:50-0500 Diastolic blood pressure 71 mm[Hg] Tip Swan DISINTEGRATOR - GARAGE LABORER Work Phone: [facility] [employer] 05-10-2024 13:50-0500 Heart rate 89 /min Tip Sharp DISINTEGRATOR - [employer]AGE LABORER Work Phone: [facility] [employer] 05-10-2024 13:50-0500 Respiratory rate 16 /min Tip Sharp DISINTEGRATOR - GARAGE LAB[employer]ER Work Phone: [facility] [employer] 05-10-2024 13:50-0500 SaO2% (BldA) [Mass fraction] 96 % Tip Sharp DISINTEGRATOR - GARAGE LABORER Work Phone: [facility] [employer] 05-10-2024 13:50-0500 Systolic blood pressure 103 mm[Hg] Tip Swan DISINTEGRATOR - G[employer]AGE LABORER Work Phone: [facility] [employer] 04-22-2024 12:48-0500 Body height 149.9 cm Nelson Gross MD Work Phone: [facility] 04-22-2024 12:48-0500 Body mass index (BMI) [Ratio] 24.24 kg/m2 Nelson Gross MD Work Phone: [facility] 04-22-2024 12:48-0500 Body temperature 99.3 [degF] Nelson Gross MD Work Phone: [facility] 04-22-2024 12:48-0500 Body weight 54.43 kg Nelson Gross MD Work Phone: [facility] 04-22-2024 12:48-0500 Diastolic blood pressure 70 mm[Hg] Nelson Gross MD Work Phone: [facility] 04-22-2024 12:48-0500 Heart rate 84 /min Nelson Gross MD Work Phone: [facility] 04-22-2024 12:48-0500 Respiratory rate 18 /min Nelson Gross MD Work Phone: [facility] 04-22-2024 12:48-0500 SaO2% (BldA) [Mass fraction] 100 % Nelson Gross MD Work Phone: [facility] 04-22-2024 12:48-0500 Systolic blood pressure 100 mm[Hg] Nelson Gross MD Work Phone: [facility] 04-21-2024 00:32-0500 Body height 149.9 cm Reynaldo Navarro DO Work Phone: [facility] 04-21-2024 00:32-0500 Body mass index (BMI) [Ratio] 24.24 kg/m2 Reynaldo Navarro DO Work Phone: [facility] 04-21-2024 00:32-0500 Body temperature 96.8 [degF] Reyanldo Navarro DO Work Phone: [facility] 04-21-2024 00:32-0500 Body weight 54.43 kg Reynaldo Navarro DO Work Phone: [facility] 04-21-2024 00:32-0500 Diastolic blood pressure 83 mm[Hg] Reynaldo Navarro DO Work Phone: [facility] 04-21-2024 00:32-0500 Heart rate 90 /min Reynaldo Navarro DO Work Phone: [facility] 04-21-2024 00:32-0500 Respiratory rate 16 /min Reynaldo Navarro DO Work Phone: [facility] 04-21-2024 00:32-0500 SaO2% (BldA) [Mass fraction] 100 % Reynaldo Navarro DO Work Phone: [facility] 04-21-2024 00:32-0500 Systolic blood pressure 120 mm[Hg] Reynaldo Navarro DO Work Phone: [facility] 04-20-2024 22:21-0500 Diastolic blood pressure 88 mm[Hg] Sravani Davis MD Work Phone: [facility] 04-20-2024 22:21-0500 Heart rate 82 /min Sravani Davis MD Work Phone: [facility] 04-20-2024 22:21-0500 Respiratory rate 18 /min Sravani Davis MD Work Phone: [facility] 04-20-2024 22:21-0500 SaO2% (BldA) [Mass fraction] 100 % Sravani Davis MD Work Phone: [facility] 04-20-2024 22:21-0500 Systolic blood pressure 122 mm[Hg] Sravani Davis MD Work Phone: [facility] 04-20-2024 17:10-0500 Body temperature 37 Sravani Davis MD Work Phone: [facility] 04-20-2024 17:04-0500 Body temperature 37.0 degrees Celsius NO GENERIC PROVIDER [facility] Comment on above: Performed By: #### [id number] #### TEVIN Dumont ([id number]) [facility] [address] [place] [address] 04-20-2024 17:02-0500 Body height 165.1 cm Sravani Davis MD Work Phone: [facility] 04-20-2024 17:02-0500 Body mass index (BMI) [Ratio] 20.47 kg/m2 Sravani Davis MD Work Phone: [facility] 04-20-2024 17:02-0500 Body weight 55.79 kg Sravani Davis MD Work Phone: [facility] 04-14-2024 12:24-0500 Body height 151.1 cm Corrine Kelley GARAGE LABORER Work Phone: [facility] 04-14-2024 12:24-0500 Body mass index (BMI) [Ratio] 24.82 kg/m2 Corrine Kelley GARAGE LABORER Work Phone: [facility] 04-14-2024 12:24-0500 Body temperature 98.6 [degF] Corrine Kelley GARAGE LABORER Work Phone: [facility] 04-14-2024 12:24-0500 Body weight 56.7 kg Corrine Kelley GARAGE LABORER Work Phone: [facility] 04-14-2024 12:24-0500 Diastolic blood pressure 81 mm[Hg] Corrine Kelley GARAGE LABORER Work Phone: [facility] 04-14-2024 12:24-0500 Heart rate 88 /min Corrine Kelley GARAGE LABORER Work Phone: [facility] 04-14-2024 12:24-0500 Respiratory rate 16 /min Corrine Kelley GARAGE LABORER Work Phone: [facility] 04-14-2024 12:24-0500 SaO2% (BldA) [Mass fraction] 100 % Corrine Mccloudnes GARAGE LABORER Work Phone: [facility] 04-14-2024 12:24-0500 Systolic blood pressure 124 mm[Hg] Corrine Kelley GARAGE LABORER Work Phone: [facility] 03-19-2024 22:50-0500 Body temperature 98.2 [degF] Yinka Schropp DO Work Phone: [facility] 03-19-2024 22:50-0500 Diastolic blood pressure 65 mm[Hg] Yinka Schropp DO Work Phone: [facility] 03-19-2024 22:50-0500 Heart rate 73 /min Yinka Schropp DO Work Phone: [facility] 03-19-2024 22:50-0500 Respiratory rate 16 /min Yinka Schropp DO Work Phone: [facility] 03-19-2024 22:50-0500 SaO2% (BldA) [Mass fraction] 98 % Yinka Schropp DO Work Phone: [facility] 03-19-2024 22:50-0500 Systolic blood pressure 95 mm[Hg] Yinka Schropp DO Work Phone: [facility] 03-19-2024 20:56-0500 Body height 152.4 cm Yinka Schropp DO Work Phone: [facility] 03-19-2024 20:56-0500 Body mass index (BMI) [Ratio] 24.02 kg/m2 Yinka Schropp DO Work Phone: [facility] 03-19-2024 20:56-0500 Body weight 55.79 kg Yinka Schropp DO Work Phone: [facility] 03-16-2024 20:59-0500 Body height 152.4 cm Yanna Chen MD Work Phone: [facility] 01-10-2025 20:59-0500 Body mass index (BMI) [Ratio] 23.68 kg/m2 Yanna Chen MD Work Phone: 7(150)919-946026 [place] [address] 03-16-2024 20:59-0500 Body temperature 98.4 [degF] Yanna Chen MD Work Phone: 7(667)915-979326 [place] [address] 03-16-2024 20:59-0500 Body weight 55 kg Yanna Chen MD Work Phone: 0(748)036-815326 [place] [address] 03-16-2024 20:59-0500 Diastolic blood pressure 83 mm[Hg] Yanna Chen MD Work Phone: 5(206)829-614026 [place] [address] 03-16-2024 20:59-0500 Heart rate 98 /min Yanna Chen MD Work Phone: 9(925)821-081726 [place] [address] 03-16-2024 20:59-0500 Respiratory rate 16 /min Yanna Chen MD Work Phone: 8(678)856-830226 [place] [address] 03-16-2024 20:59-0500 SaO2% (BldA) [Mass fraction] 100 % Yanna Chen MD Work Phone: 1(692)505-850226 [place] [address] 03-16-2024 20:59-0500 Systolic blood pressure 115 mm[Hg] Yanna Chen MD Work Phone: 1(910)759-084426 [place] [address] 12-20-2023 13:46-0400 Body height 152.4 cm Lucille Reddy FINANCE LEAD Work Phone: [facility] 12-20-2023 13:46-0400 Body mass index (BMI) [Ratio] 24.41 kg/m2 Lucille Reddy FINANCE LEAD Work Phone: [facility] 12-20-2023 13:46-0400 Body temperature 98.01 [degF] Lucille Reddy FINANCE LEAD Work Phone: [facility] 12-20-2023 13:46-0400 Body weight 56.7 kg Tenneh Barry FINANCE LEAD Work Phone: [employer] 12-20-2023 13:46-0400 Diastolic blood pressure 72 mm[Hg] Tenneh Barry FINANCE LEAD Work Phone: [employer] 12-20-2023 13:46-0400 Heart rate 81 /min Tenneh Barry FINANCE LEAD Work Phone: [employer] 12-20-2023 13:46-0400 Respiratory rate 16 /min Tenneh Barry FINANCE LEAD Work Phone: [employer] 12-20-2023 13:46-0400 SaO2% (BldA) [Mass fraction] 98 % Tenneh Barry FINANCE LEAD Work Phone: [employer] 12-20-2023 13:46-0400 Systolic blood pressure 116 mm[Hg] Tenneh Barry FINANCE LEAD Work Phone: [employer] 12-15-2023 13:36-0400 Body height 152.4 cm Tenneh Barry FINANCE LEAD Work Phone: [employer] 12-15-2023 13:36-0400 Body mass index (BMI) [Ratio] 24.45 kg/m2 Tenneh Barry FINANCE LEAD Work Phone: [employer] 12-15-2023 13:36-0400 Body temperature 98.01 [degF] Tenneh Barry FINANCE LEAD Work Phone: [employer] 12-15-2023 13:36-0400 Body weight 56.79 kg Tenneh Barry FINANCE LEAD Work Phone: [employer] 12-15-2023 13:36-0400 Diastolic blood pressure 76 mm[Hg] Tenneh Barry FINANCE LEAD Work Phone: [employer] 12-15-2023 13:36-0400 Heart rate 85 /min Tenneh Barry FINANCE LEAD Work Phone: [employer] 12-15-2023 13:36-0400 SaO2% (BldA) [Mass fraction] 98 % Lucille Reddy FINANCE LEAD Work Phone: [employer] 12-15-2023 13:36-0400 Systolic blood pressure 105 mm[Hg] Lucille Reddy FINANCE LEAD Work Phone: [facility] 11-21-2023 01:56-0400 Diastolic blood pressure 95 mm[Hg] [facility] [employer] 11-21-2023 01:56-0400 Respiratory rate 20 /min [employer] [employer] 11-21-2023 01:56-0400 Systolic blood pressure 125 mm[Hg] [facility] [employer] 11-21-2023 00:39-0400 Body temperature 97.81 [degF] [facility] [employer] 11-21-2023 00:39-0400 Heart rate 92 /min [facility] [employer] 11-21-2023 00:39-0400 SaO2% (BldA) [Mass fraction] 98 % [facility] [employer] 11-20-2023 17:43-0400 Diastolic blood pressure 85 mm[Hg] Apolonia Pham DO Work Phone: [facility] [employer] 11-20-2023 17:43-0400 Respiratory rate 18 /min Apolonia Pham DO Work Phone: [facility] [employer] 11-20-2023 17:43-0400 Systolic blood pressure 127 mm[Hg] Apolonia Pham DO Work Phone: [facility] [employer] [facility] [employer] 11-20-2023 17:23-0400 Body temperature 97.3 [degF] Apolonia Pham DO Work Phone: [facility] [employer] 11-20-2023 17:23-0400 Heart rate 97 /min Apolonia Pham DO Work Phone: [facility] [employer] 11-20-2023 17:23-0400 SaO2% (BldA) [Mass fraction] 98 % Apolonia Pham DO Work Phone: [employer] [facility] [employer] 09-17-2023 20:19-0400 Body height 149.9 cm No Generic Provider [facility] 09-17-2023 20:19-0400 Body mass index (BMI) [Ratio] 22.22 kg/m2 No Generic Provider [facility] 09-17-2023 20:19-0400 Body temperature 97.7 [degF] No Generic Provider [facility] 09-17-2023 20:19-0400 Body weight 49.9 kg No Generic Provider [facility] 09-17-2023 20:19-0400 Diastolic blood pressure 70 mm[Hg] No Generic Provider [facility] 09-17-2023 20:19-0400 Heart rate 112 /min No Generic Provider [facility] 09-17-2023 20:19-0400 Respiratory rate 16 /min No Generic Provider [facility] 09-17-2023 20:19-0400 SaO2% (BldA) [Mass fraction] 98 % No Generic Provider [facility] 09-17-2023 20:19-0400 Systolic blood pressure 120 mm[Hg] No Generic Provider [facility] 07-14-2023 11:10-0400 Body mass index (BMI) [Ratio] 25.57 kg/m2 Finn Elise PA-C Work Phone: [facility] 07-14-2023 11:10-0400 Body temperature 98.01 [degF] Finn Elise PA-C Work Phone: [facility] 07-14-2023 11:10-0400 Body weight 55.5 kg Finn Elise PA-C Work Phone: [facility] 07-14-2023 11:10-0400 Diastolic blood pressure 84 mm[Hg] Finn Elise PA-C Work Phone: [facility] 07-14-2023 11:10-0400 Heart rate 101 /min Finn Junito PA-C Work Phone: [facility] 07-14-2023 11:10-0400 Systolic blood pressure 120 mm[Hg] Finn Elise PA-C Work Phone: [facility] 05-19-2023 11:37-0400 Body temperature 98.6 [degF] Amber Bauer DO Work Phone: [facility] 05-19-2023 11:37-0400 Body weight 53.45 kg Amber Bauer DO Work Phone: [facility] 05-19-2023 11:37-0400 Diastolic blood pressure 73 mm[Hg] Amber Bauer DO Work Phone: [facility] 05-19-2023 11:37-0400 Heart rate 83 /min Amber Bauer DO Work Phone: [facility] 05-19-2023 11:37-0400 Systolic blood pressure 107 mm[Hg] Amber Bauer DO Work Phone: [facility] 05-15-2023 10:16-0400 Diastolic blood pressure 65 mm[Hg] Marilee Stephanie DO Work Phone: [facility] 05-15-2023 10:16-0400 Heart rate 99 /min Marilee Stephanie DO Work Phone: [facility] 05-15-2023 10:16-0400 Respiratory rate 16 /min Marilee Stephanie DO Work Phone: [facility] 05-15-2023 10:16-0400 SaO2% (BldA) [Mass fraction] 100 % Marilee Stephanie DO Work Phone: [facility] 05-15-2023 10:16-0400 Systolic blood pressure 123 mm[Hg] Marilee Stephanie DO Work Phone: [facility] 05-15-2023 08:49-0400 Body temperature 98.2 [degF] Marilee Stephanie DO Work Phone: [facility] 05-15-2023 03:49-0400 Body height 149.9 cm Marilee Stephanie DO Work Phone: [facility] 05-15-2023 03:49-0400 Body mass index (BMI) [Ratio] 22.82 kg/m2 Marilee Brown DO Work Phone: [facility] 05-15-2023 03:49-0400 Body weight 51.26 kg Marilee Brown DO Work Phone: [facility] 05-12-2023 14:02-0500 Body weight 54.4 kg Matthieu García MD Work Phone: [facility] 05-12-2023 14:02-0500 Diastolic blood pressure 78 mm[Hg] Matthieu García MD Work Phone: [facility] 05-12-2023 14:02-0500 Systolic blood pressure 113 mm[Hg] Matthieu García MD Work Phone: [facility] 05-11-2023 08:18-0500 Body height 149.9 cm Elaine Jacob MD Work Phone: [facility] 05-11-2023 08:18-0500 Body temperature 97.81 [degF] Elaine Jacob MD Work Phone: [facility] 05-11-2023 08:18-0500 Body weight 54.1 kg Elaine Jacob MD Work Phone: [facility] 05-11-2023 08:18-0500 Diastolic blood pressure 73 mm[Hg] Elaine Jacob MD Work Phone: [facility] 05-11-2023 08:18-0500 Heart rate 80 /min Elaine Jacob MD Work Phone: [facility] 05-11-2023 08:18-0500 SaO2% (BldA) [Mass fraction] 100 % Elaine Jacob MD Work Phone: [facility] 05-11-2023 08:18-0500 Systolic blood pressure 105 mm[Hg] Elaine Jacob MD Work Phone: [facility] 05-03-2023 14:23-0500 Diastolic blood pressure 60 mm[Hg] Chasity Huynh MD Work Phone: [facility] 05-03-2023 14:23-0500 Heart rate 88 /min Chasity Huynh MD Work Phone: [facility] 05-03-2023 14:23-0500 Respiratory rate 16 /min Chasity Huynh MD Work Phone: [facility] 05-03-2023 14:23-0500 SaO2% (BldA) [Mass fraction] 97 % Chasity Huynh MD Work Phone: [facility] 05-03-2023 14:23-0500 Systolic blood pressure 95 mm[Hg] Chasity Huynh MD Work Phone: [facility] 05-03-2023 11:56-0500 Body height 149.9 cm Chasity Huynh MD Work Phone: [facility] 05-03-2023 11:56-0500 Body mass index (BMI) [Ratio] 22.82 kg/m2 Chasity Huynh MD Work Phone: [facility] 05-03-2023 11:56-0500 Body temperature 98.71 [degF] Chasity Huynh MD Work Phone: [facility] 05-03-2023 11:56-0500 Body weight 51.26 kg Chasity Huynh MD Work Phone: [facility] 04-20-2023 11:30-0500 Body height 149.9 cm Elina Bel DISINTEGRATOR.GARAGE LABORER Work Phone: [facility] 04-20-2023 11:30-0500 Body temperature 98.2 [degF] Elina Bel DISINTEGRATOR.GARAGE LABORER Work Phone: [facility] 04-20-2023 11:30-0500 Body weight 51.71 kg Elina Bel DISINTEGRATOR.GARAGE LABORER Work Phone: [facility] 04-20-2023 11:30-0500 Diastolic blood pressure 71 mm[Hg] Elina Bel DISINTEGRATOR.GARAGE LABORER Work Phone: [facility] 04-20-2023 11:30-0500 Heart rate 80 /min Elina Bel DISINTEGRATOR.GARAGE LABORER Work Phone: [facility] 04-20-2023 11:30-0500 Systolic blood pressure 115 mm[Hg] Elina Bel DISINTEGRATOR.GARAGE LABORER Work Phone: [facility] 04-18-2023 11:34-0500 Body temperature 98.2 [degF] Ana Brandt PA-C Work Phone: [facility] 04-18-2023 11:34-0500 Body weight 51.15 kg Ana Brandt PA-C Work Phone: [facility] 04-18-2023 11:34-0500 Diastolic blood pressure 93 mm[Hg] Ana Brandt PA-C Work Phone: [facility] 04-18-2023 11:34-0500 Heart rate 118 /min Ana Brandt PA-C Work Phone: [facility] 04-18-2023 11:34-0500 Systolic blood pressure 133 mm[Hg] Ana Brandt PA-C Work Phone: [facility] 04-13-2023 09:26-0500 Body temperature 98.6 [degF] Finn Elise PA-C Work Phone: [facility] 04-13-2023 09:26-0500 Body weight 52.8 kg Finn Elise PA-C Work Phone: [facility] 04-13-2023 09:26-0500 Diastolic blood pressure 69 mm[Hg] Finn Elise PA-C Work Phone: [facility] 04-13-2023 09:26-0500 Heart rate 85 /min Finn Elise PA-C Work Phone: [facility] 04-13-2023 09:26-0500 SaO2% (BldA) [Mass fraction] 100 % Finn Elise PA-C Work Phone: [facility] 04-13-2023 09:26-0500 Systolic blood pressure 112 mm[Hg] Finn Elise PA-C Work Phone: [facility] 03-31-2023 16:09-0500 Diastolic blood pressure 72 mm[Hg] Telma Motley MD Work Phone: [facility] 03-31-2023 16:09-0500 Heart rate 82 /min Telma Motley MD Work Phone: [facility] 03-31-2023 16:09-0500 Respiratory rate 18 /min Telma Motley MD Work Phone: [facility] 03-31-2023 16:09-0500 SaO2% (BldA) [Mass fraction] 99 % Telma Motley MD Work Phone: [facility] 03-31-2023 16:09-0500 Systolic blood pressure 128 mm[Hg] Telma Motley MD Work Phone: [facility] 01-19-2023 05:37-0500 Diastolic blood pressure 67 mm[Hg] Aruba Watkins DO Work Phone: [facility] 01-19-2023 05:37-0500 Heart rate 74 /min Aruba Watkins DO Work Phone: [facility] 01-19-2023 05:37-0500 Respiratory rate 14 /min Aruba Watkins DO Work Phone: [facility] 01-19-2023 05:37-0500 SaO2% (BldA) [Mass fraction] 100 % Aruba Watkins DO Work Phone: [facility] 01-19-2023 05:37-0500 Systolic blood pressure 105 mm[Hg] Aruba Watkins DO Work Phone: [facility] 01-19-2023 01:27-0500 Body temperature 98.1 [degF] Aruba Watkins DO Work Phone: [facility] 01-18-2023 12:20-0500 Body height 149.9 cm Aruba Watkins DO Work Phone: [facility] 01-13-2023 08:05-0500 Body temperature 97.5 [degF] Clair MUNSON-C Work Phone: [facility] 01-13-2023 08:05-0500 Body weight 54.88 kg Clair Huang PA-C Work Phone: [facility] 01-13-2023 08:05-0500 Diastolic blood pressure 85 mm[Hg] Clair Huang PA-C Work Phone: [facility] 01-13-2023 08:05-0500 Heart rate 109 /min Clair MUNSON-C Work Phone: [facility] 01-13-2023 08:05-0500 Systolic blood pressure 122 mm[Hg] Clair Huang PA-C Work Phone: [facility] 01-10-2023 23:00-0500 Diastolic blood pressure 78 mm[Hg] Mustapha Padilla DO Work Phone: [facility] 01-10-2023 23:00-0500 Heart rate 103 /min Mustapha Padilla DO Work Phone: [facility] 01-10-2023 23:00-0500 Respiratory rate 16 /min Mustapha Padilla DO Work Phone: [facility] 01-10-2023 23:00-0500 SaO2% (BldA) [Mass fraction] 99 % Mustapha Padilla DO Work Phone: [facility] 01-10-2023 23:00-0500 Systolic blood pressure 115 mm[Hg] Mustapha Padilla DO Work Phone: [facility] 01-10-2023 20:35-0500 Body temperature 99 [degF] Mustapha Padilla DO Work Phone: [facility] 01-07-2023 12:01-0400 Body height 149.9 cm Gabrielle Gaviria MD Work Phone: [facility] 01-07-2023 12:01-0400 Body weight 53.9 kg Gabrielle Gaviria MD Work Phone: [facility] 01-07-2023 12:01-0400 Diastolic blood pressure 86 mm[Hg] Gabrielle Gaviria MD Work Phone: [facility] 01-07-2023 12:01-0400 Heart rate 101 /min Gabrielle Gaviria MD Work Phone: [facility] 01-07-2023 12:01-0400 SaO2% (BldA) [Mass fraction] 100 % Gabrielle Gaviria MD Work Phone: [facility] 01-07-2023 12:01-0400 Systolic blood pressure 131 mm[Hg] Gabrielle Gaviria MD Work Phone: [facility] 11-24-2022 08:23-0400 Body height 149.9 cm Germania Goodwin MD Work Phone: [facility] 11-24-2022 08:23-0400 Body weight 49.9 kg Germania Goodwin MD Work Phone: [facility] 11-20-2022 19:37-0400 Diastolic blood pressure 67 mm[Hg] No Pcp Required [facility] 11-20-2022 19:37-0400 Heart rate 89 /min No Pcp Required [facility] 11-20-2022 19:37-0400 Respiratory rate 16 /min No Pcp Required [facility] 11-20-2022 19:37-0400 SaO2% (BldA) [Mass fraction] 98 % No Pcp Required [facility] 11-20-2022 19:37-0400 Systolic blood pressure 109 mm[Hg] No Pcp Required [facility] 11-20-2022 17:40-0400 Body height 162.5 cm No Pcp Required [facility] 11-20-2022 17:40-0400 Body temperature 96.8 [degF] No Pcp Required [facility] 11-20-2022 17:40-0400 Body weight 50 kg No Pcp Required [facility] 10-02-2022 20:59-0400 Body temperature 97.88 [degF] No Pcp Required [facility] 10-02-2022 20:59-0400 Diastolic blood pressure 82 mm[Hg] No Pcp Required [facility] 10-02-2022 20:59-0400 Heart rate 96 /min No Pcp Required [facility] 10-02-2022 20:59-0400 Respiratory rate 18 /min No Pcp Required [facility] 10-02-2022 20:59-0400 SaO2% (BldA) [Mass fraction] 99 % No Pcp Required [facility] 10-02-2022 20:59-0400 Systolic blood pressure 116 mm[Hg] No Pcp Required [facility] 10-02-2022 19:14-0400 Body height 149.8 cm No Pcp Required [facility] 10-02-2022 19:14-0400 Body weight 49.8 kg No Pcp Required [facility] 09-29-2022 09:57-0400 Body temperature 98.91 [degF] Madi Stuart MD Work Phone: [facility] 09-29-2022 09:57-0400 Body weight 50.8 kg Madi Stuart MD Work Phone: [facility] 09-29-2022 09:57-0400 Diastolic blood pressure 68 mm[Hg] Madi Stuart MD Work Phone: [facility] 09-29-2022 09:57-0400 Heart rate 78 /min Madi Stuart MD Work Phone: [facility] 09-29-2022 09:57-0400 Systolic blood pressure 104 mm[Hg] Madi Stuart MD Work Phone: [facility] 09-23-2022 07:48-0400 Body temperature 97.2 [degF] Ana Brandt PA-C Work Phone: [facility] 09-23-2022 07:48-0400 Body weight 49.44 kg Ana Brandt PA-C Work Phone: [facility] 09-23-2022 07:48-0400 Diastolic blood pressure 72 mm[Hg] Ana Brandt PA-C Work Phone: [facility] 09-23-2022 07:48-0400 Heart rate 105 /min Ana Brandt PA-C Work Phone: [facility] 09-23-2022 07:48-0400 Systolic blood pressure 103 mm[Hg] Ana Brandt PA-C Work Phone: [facility] 09-21-2022 20:00-0400 Diastolic blood pressure 69 mm[Hg] No Pcp Required [facility] 09-21-2022 20:00-0400 Heart rate 117 /min No Pcp Required [facility] 09-21-2022 20:00-0400 Respiratory rate 16 /min No Pcp Required [facility] 09-21-2022 20:00-0400 SaO2% (BldA) [Mass fraction] 99 % No Pcp Required [facility] 09-21-2022 20:00-0400 Systolic blood pressure 110 mm[Hg] No Pcp Required [facility] 09-21-2022 16:46-0400 Body temperature 98.6 [degF] No Pcp Required [facility] 09-21-2022 16:46-0400 Body weight 52 kg No Pcp Required [facility] 09-07-2022 21:00-0400 Diastolic blood pressure 79 mm[Hg] No Pcp Required [facility] 09-07-2022 21:00-0400 Heart rate 68 /min No Pcp Required [facility] 09-07-2022 21:00-0400 Respiratory rate 18 /min No Pcp Required [facility] 09-07-2022 21:00-0400 SaO2% (BldA) [Mass fraction] 98 % No Pcp Required [facility] 09-07-2022 21:00-0400 Systolic blood pressure 124 mm[Hg] No Pcp Required [facility] 09-07-2022 18:27-0400 Body temperature 99.14 [degF] No Pcp Required [facility] 09-07-2022 18:14-0400 Body height 149.8 cm No Pcp Required [facility] 09-07-2022 18:14-0400 Body weight 50 kg No Pcp Required [facility] 08-31-2022 12:40-0400 Body temperature 97.5 [degF] Paul Chavez MD Work Phone: [facility] 08-31-2022 12:40-0400 Body weight 51.26 kg Paul Chavez MD Work Phone: [facility] 08-31-2022 12:40-0400 Diastolic blood pressure 71 mm[Hg] Paul Chavez MD Work Phone: [facility] 08-31-2022 12:40-0400 Heart rate 77 /min Paul Chavez MD Work Phone: [facility] 08-31-2022 12:40-0400 SaO2% (BldA) [Mass fraction] 99 % Paul Chavez MD Work Phone: [facility] 08-31-2022 12:40-0400 Systolic blood pressure 110 mm[Hg] Paul Chavez MD Work Phone: [facility] 08-30-2022 01:01-0400 Diastolic blood pressure 68 mm[Hg] No Pcp Required [facility] 08-30-2022 01:01-0400 Heart rate 68 /min No Pcp Required [facility] 08-30-2022 01:01-0400 Respiratory rate 17 /min No Pcp Required [facility] 08-30-2022 01:01-0400 SaO2% (BldA) [Mass fraction] 100 % No Pcp Required [facility] 08-30-2022 01:01-0400 Systolic blood pressure 107 mm[Hg] No Pcp Required [facility] 08-29-2022 23:05-0400 Body height 149.8 cm No Pcp Required [facility] 08-29-2022 23:05-0400 Body temperature 98.6 [degF] No Pcp Required [facility] 08-29-2022 23:05-0400 Body weight 55 kg No Pcp Required [facility] 08-19-2022 17:28-0400 Heart rate 88 /min Cabrera Negron APRN.GARAGE LABORER Work Phone: [facility] 08-19-2022 17:01-0400 Body temperature 98.71 [degF] Cabrera Negron APRN.GARAGE LABORER Work Phone: [facility] 08-19-2022 17:01-0400 Body weight 52.16 kg Cabrera Negron DISINTEGRATOR.GARAGE LABORER Work Phone: [facility] 08-19-2022 17:01-0400 Diastolic blood pressure 83 mm[Hg] Cabrera Negron APRN.GARAGE LABORER Work Phone: [facility] 08-19-2022 17:01-0400 Respiratory rate 24 /min Cabrera Negron APRN.GARAGE LABORER Work Phone: [facility] 08-19-2022 17:01-0400 SaO2% (BldA) [Mass fraction] 100 % Cabrera Negron APRN.GARAGE LABORER Work Phone: [facility] 08-19-2022 17:01-0400 Systolic blood pressure 126 mm[Hg] Cabrera Negron DISINTEGRATOR.GARAGE LABORER Work Phone: [facility] 07-30-2022 11:55-0400 Body temperature 98.2 [degF] Madi Stuart MD Work Phone: [facility] 07-30-2022 11:55-0400 Body weight 52.62 kg Madi Stuart MD Work Phone: [facility] 07-30-2022 11:55-0400 Diastolic blood pressure 67 mm[Hg] Madi Stuart MD Work Phone: [facility] 07-30-2022 11:55-0400 Heart rate 80 /min Madi Stuart MD Work Phone: [facility] 07-30-2022 11:55-0400 Systolic blood pressure 97 mm[Hg] Madi Stuart MD Work Phone: [facility] 07-20-2022 18:02-0400 Body temperature 98.6 [degF] Srini Thomas PA-C Work Phone: [facility] 07-20-2022 18:02-0400 Body weight 52.53 kg Srini Thomas PA-C Work Phone: [facility] 07-20-2022 18:02-0400 Diastolic blood pressure 76 mm[Hg] Srini Thomas PA-C Work Phone: [facility] 07-20-2022 18:02-0400 Heart rate 108 /min Srini Thomas PA-C Work Phone: [facility] 07-20-2022 18:02-0400 Respiratory rate 18 /min Sriin Thomas PA-C Work Phone: [facility] 07-20-2022 18:02-0400 SaO2% (BldA) [Mass fraction] 99 % Srini Thomas PA-C Work Phone: [facility] 07-20-2022 18:02-0400 Systolic blood pressure 121 mm[Hg] Srini Thomas PA-C Work Phone: [facility] 07-15-2022 14:55-0400 Body height 149.8 cm No Pcp Required [facility] 07-15-2022 14:55-0400 Body temperature 97.34 [degF] No Pcp Required [facility] 07-15-2022 14:55-0400 Body weight 53.5 kg No Pcp Required [facility] 07-15-2022 14:55-0400 Diastolic blood pressure 79 mm[Hg] No Pcp Required [facility] 07-15-2022 14:55-0400 Heart rate 95 /min No Pcp Required [facility] 07-15-2022 14:55-0400 Respiratory rate 18 /min No Pcp Required [facility] 07-15-2022 14:55-0400 SaO2% (BldA) [Mass fraction] 97 % No Pcp Required [facility] 07-15-2022 14:55-0400 Systolic blood pressure 141 mm[Hg] No Pcp Required [facility] 07-15-2022 14:27-0400 Body temperature 97.9 [degF] Madi Stuart MD Work Phone: [facility] 07-15-2022 14:27-0400 Body weight 51.71 kg Madi Stuart MD Work Phone: [facility] 07-15-2022 14:27-0400 Diastolic blood pressure 79 mm[Hg] Madi Stuart MD Work Phone: [facility] 07-15-2022 14:27-0400 Heart rate 73 /min Madi Stuart MD Work Phone: [facility] 07-15-2022 14:27-0400 Systolic blood pressure 113 mm[Hg] Madi Stuart MD Work Phone: [facility] 07-07-2022 08:38-0400 Body temperature 98.91 [degF] Ana Rikki PA-C Work Phone: [facility] 07-07-2022 08:38-0400 Body weight 53.98 kg Ana Rikki PA-C Work Phone: [facility] 07-07-2022 08:38-0400 Diastolic blood pressure 86 mm[Hg] Ana Rikki PA-C Work Phone: [facility] 07-07-2022 08:38-0400 Heart rate 92 /min Ana Rikki PA-C Work Phone: [facility] 07-07-2022 08:38-0400 Systolic blood pressure 121 mm[Hg] Ana Rikki PA-C Work Phone: [facility] 07-03-2022 15:20-0400 Body temperature 99.1 [degF] Kim Perozeni PA-C Work Phone: [facility] 07-03-2022 15:20-0400 Diastolic blood pressure 82 mm[Hg] Kim Perozeni PA-C Work Phone: [facility] 07-03-2022 15:20-0400 Heart rate 138 /min Kim Perozeni PA-C Work Phone: [facility] 07-03-2022 15:20-0400 Respiratory rate 20 /min Kim Perozeni PA-C Work Phone: [facility] 07-03-2022 15:20-0400 SaO2% (BldA) [Mass fraction] 100 % Kim Perozeni PA-C Work Phone: [facility] 07-03-2022 15:20-0400 Systolic blood pressure 134 mm[Hg] Kim Perozeni PA-C Work Phone: [facility] 06-28-2022 14:17-0400 Diastolic blood pressure 64 mm[Hg] Haseeb Drake MD Work Phone: [facility] 06-28-2022 14:17-0400 Systolic blood pressure 110 mm[Hg] Haseeb Drake MD Work Phone: [facility] 06-17-2022 14:46-0400 Body weight 52.16 kg Matthieu García MD Work Phone: [facility] 06-17-2022 14:46-0400 Diastolic blood pressure 64 mm[Hg] Matthieu García MD Work Phone: [facility] 06-17-2022 14:46-0400 Systolic blood pressure 108 mm[Hg] Matthieu García MD Work Phone: [facility] 06-16-2022 17:42-0400 Body temperature 98.49 [degF] Sherrell Yudy DISINTEGRATOR.GARAGE LABORER Work Phone: [facility] 06-16-2022 17:42-0400 Body weight 52.16 kg Sherrell Marioneajesus DISINTEGRATOR.GARAGE LABORER Work Phone: [facility] 06-16-2022 17:42-0400 Diastolic blood pressure 83 mm[Hg] Sherrell Mosneajesus DISINTEGRATOR.GARAGE LABORER Work Phone: [facility] 06-16-2022 17:42-0400 Heart rate 80 /min Sherrell Mosneag DISINTEGRATOR.GARAGE LABORER Work Phone: [facility] 06-16-2022 17:42-0400 Respiratory rate 20 /min Sherrell Mosneag DISINTEGRATOR.GARAGE LABORER Work Phone: [facility] 06-16-2022 17:42-0400 SaO2% (BldA) [Mass fraction] 98 % Sherrell Mosneag DISINTEGRATOR.GARAGE LABORER Work Phone: [facility] 06-16-2022 17:42-0400 Systolic blood pressure 115 mm[Hg] Sherrell Mosneag DISINTEGRATOR.GARAGE LABORER Work Phone: [facility] 06-09-2022 14:11-0400 Body temperature 98.6 [degF] Luz Torsney PA-C Work Phone: [facility] 06-09-2022 14:11-0400 Body weight 52.16 kg Luz Torsney PA-C Work Phone: [facility] 06-09-2022 14:11-0400 Diastolic blood pressure 77 mm[Hg] Luz Torsney PA-C Work Phone: [facility] 06-09-2022 14:11-0400 Heart rate 124 /min Luz Torsney PA-C Work Phone: [facility] 06-09-2022 14:11-0400 Respiratory rate 24 /min Luz Torsney PA-C Work Phone: [facility] 06-09-2022 14:11-0400 SaO2% (BldA) [Mass fraction] 97 % Luz Torsney PA-C Work Phone: [facility] 06-09-2022 14:11-0400 Systolic blood pressure 110 mm[Hg] Luz Torsney PA-C Work Phone: [facility] 06-04-2022 14:37-0400 Body temperature 98.71 [degF] Finn Elise PA-C Work Phone: [facility] 06-04-2022 14:37-0400 Body weight 52.8 kg Finn Junito PA-C Work Phone: [facility] 06-04-2022 14:37-0400 Diastolic blood pressure 78 mm[Hg] Finn Junito PA-C Work Phone: [facility] 06-04-2022 14:37-0400 Heart rate 66 /min Finn Junito PA-C Work Phone: [facility] 06-04-2022 14:37-0400 Systolic blood pressure 114 mm[Hg] Finn Junito PA-C Work Phone: [facility] 05-14-2022 16:12-0500 Body height 149.9 cm Finn Junito PA-C Work Phone: [facility] 05-14-2022 16:12-0500 Body temperature 99.81 [degF] Finn Junito PA-C Work Phone: [facility] 05-14-2022 16:12-0500 Body weight 52.16 kg Finn Junito PA-C Work Phone: [facility] 05-14-2022 16:12-0500 Diastolic blood pressure 73 mm[Hg] Finn Junito PA-C Work Phone: [facility] 05-14-2022 16:12-0500 Heart rate 68 /min Finn Junito PA-C Work Phone: [facility] 05-14-2022 16:12-0500 SaO2% (BldA) [Mass fraction] 98 % Finn Junito PA-C Work Phone: [facility] 05-14-2022 16:12-0500 Systolic blood pressure 107 mm[Hg] Finn Junito PA-C Work Phone: [facility] 05-06-2022 13:54-0500 Body weight 52.62 kg Matthieu García MD Work Phone: [facility] 05-06-2022 13:54-0500 Diastolic blood pressure 76 mm[Hg] Matthieu García MD Work Phone: [facility] 05-06-2022 13:54-0500 Systolic blood pressure 108 mm[Hg] Matthieu García MD Work Phone: [facility] 04-11-2022 04:01-0500 Diastolic blood pressure 64 mm[Hg] No Pcp Required [facility] 04-11-2022 04:01-0500 Heart rate 87 /min No Pcp Required [facility] 04-11-2022 04:01-0500 Respiratory rate 20 /min No Pcp Required [facility] 04-11-2022 04:01-0500 SaO2% (BldA) [Mass fraction] 100 % No Pcp Required [facility] 04-11-2022 04:01-0500 Systolic blood pressure 103 mm[Hg] No Pcp Required [facility] 03-21-2022 22:05-0500 Diastolic blood pressure 66 mm[Hg] No Pcp Required [facility] 03-21-2022 22:05-0500 Respiratory rate 18 /min No Pcp Required [facility] 03-21-2022 22:05-0500 Systolic blood pressure 117 mm[Hg] No Pcp Required [facility] 03-21-2022 19:37-0500 Body height 152.4 cm No Pcp Required [facility] 03-21-2022 19:37-0500 Body temperature 97.7 [degF] No Pcp Required [facility] 03-21-2022 19:37-0500 Body weight 54.5 kg No Pcp Required [facility] 03-21-2022 19:37-0500 Heart rate 84 /min No Pcp Required [facility] 03-21-2022 19:37-0500 SaO2% (BldA) [Mass fraction] 100 % No Pcp Required [facility] 03-06-2022 20:43-0500 Body height 152.4 cm No Pcp Required [facility] 03-06-2022 20:43-0500 Body temperature 97.52 [degF] No Pcp Required [facility] 03-06-2022 20:43-0500 Body weight 54 kg No Pcp Required [facility] 03-06-2022 20:43-0500 Diastolic blood pressure 79 mm[Hg] No Pcp Required [facility] 03-06-2022 20:43-0500 Heart rate 108 /min No Pcp Required [facility] 03-06-2022 20:43-0500 Respiratory rate 18 /min No Pcp Required [facility] 03-06-2022 20:43-0500 SaO2% (BldA) [Mass fraction] 99 % No Pcp Required [facility] 03-06-2022 20:43-0500 Systolic blood pressure 134 mm[Hg] No Pcp Required [facility] 01-21-2022 19:10-0500 Diastolic blood pressure 66 mm[Hg] No Pcp Required [facility] 01-21-2022 19:10-0500 Heart rate 81 /min No Pcp Required [facility] 01-21-2022 19:10-0500 Respiratory rate 16 /min No Pcp Required [facility] 01-21-2022 19:10-0500 SaO2% (BldA) [Mass fraction] 100 % No Pcp Required [facility] 01-21-2022 19:10-0500 Systolic blood pressure 109 mm[Hg] No Pcp Required [facility] 01-21-2022 17:22-0500 Body temperature 98.96 [degF] No Pcp Required [facility] 01-21-2022 16:28-0500 Body height 152.4 cm No Pcp Required [facility] 01-21-2022 16:28-0500 Body weight 49.5 kg No Pcp Required [facility] 10-27-2021 09:52-0400 Body height 152.4 cm Reynaldo Ortega PA-C Work Phone: [facility] 10-27-2021 09:52-0400 Body weight 53.52 kg Reynaldo MUNSON-Viviana Work Phone: [facility] 10-05-2021 08:38-0400 Diastolic blood pressure 76 mm[Hg] Hanane Tomas MD Work Phone: [employer] 10-05-2021 08:38-0400 Heart rate 87 /min Hanane Tomas MD Work Phone: [facility] 10-05-2021 08:38-0400 Respiratory rate 18 /min Hanane Tomas MD Work Phone: [facility] 10-05-2021 08:38-0400 SaO2% (BldA) [Mass fraction] 97 % Hanane Tomas MD Work Phone: [facility] 10-05-2021 08:38-0400 Systolic blood pressure 108 mm[Hg] Hanane Tomas MD Work Phone: [facility] 10-05-2021 01:07-0400 Body temperature 98.4 [degF] Hanane Tomas MD Work Phone: [facility] 10-04-2021 12:12-0400 Body temperature 98.4 [degF] Basia Zarrabi DO Work Phone: [facility] 10-04-2021 12:12-0400 Diastolic blood pressure 68 mm[Hg] Basia Zarrabi DO Work Phone: [facility] 10-04-2021 12:12-0400 Heart rate 87 /min Basia Zarrabi DO Work Phone: [facility] 10-04-2021 12:12-0400 Respiratory rate 12 /min Basia Zarrabi DO Work Phone: [facility] 10-04-2021 12:12-0400 SaO2% (BldA) [Mass fraction] 99 % Basia Zarrabi DO Work Phone: [facility] 10-04-2021 12:12-0400 Systolic blood pressure 101 mm[Hg] Basia Zarrabi DO Work Phone: [facility] 10-02-2021 01:16-0400 Body height 152.4 cm Basia Zarrabi DO Work Phone: [facility] 10-02-2021 01:16-0400 Body mass index (BMI) [Ratio] 23.06 kg/m2 Basia Zarrabi DO Work Phone: [facility] 10-02-2021 01:16-0400 Body temperature 98.29 [degF] Basia Zarrabi DO Work Phone: [facility] 10-02-2021 01:16-0400 Body weight 53.57 kg Basia Zarrabi DO Work Phone: [facility] 10-02-2021 01:16-0400 Diastolic blood pressure 84 mm[Hg] Basia Zarrabi DO Work Phone: [facility] 10-02-2021 01:16-0400 Heart rate 74 /min Basia Zarrabi DO Work Phone: [facility] 10-02-2021 01:16-0400 Respiratory rate 16 /min Basia Zarrabi DO Work Phone: [facility] 10-02-2021 01:16-0400 SaO2% (BldA) [Mass fraction] 100 % Basia Zarrabi DO Work Phone: [facility] 10-02-2021 01:16-0400 Systolic blood pressure 119 mm[Hg] Basia Zarrabi DO Work Phone: [facility] 09-20-2021 16:26-0400 Body temperature 98.4 [degF] Basia Zarrabi DO Work Phone: [facility] 09-20-2021 16:26-0400 Diastolic blood pressure 86 mm[Hg] Basia Zarrabi DO Work Phone: [facility] 09-20-2021 16:26-0400 Heart rate 93 /min Basia Zarrabi DO Work Phone: [facility] 09-20-2021 16:26-0400 Respiratory rate 16 /min Basia Zarrabi DO Work Phone: [facility] 09-20-2021 16:26-0400 SaO2% (BldA) [Mass fraction] 100 % Basia Zarrabi DO Work Phone: [facility] 09-20-2021 16:26-0400 Systolic blood pressure 123 mm[Hg] Basia Zarrabi DO Work Phone: [facility] 09-10-2021 15:04-0400 Body temperature 99.1 [degF] Basia Zarrabi DO Work Phone: [facility] 09-10-2021 15:04-0400 Diastolic blood pressure 87 mm[Hg] Basia Zarrabi DO Work Phone: [facility] 09-10-2021 15:04-0400 Heart rate 116 /min Basia Zarrabi DO Work Phone: [facility] 09-10-2021 15:04-0400 Respiratory rate 16 /min Basia Zarrabi DO Work Phone: [facility] 09-10-2021 15:04-0400 SaO2% (BldA) [Mass fraction] 99 % Basia Zarrabi DO Work Phone: [facility] 09-10-2021 15:04-0400 Systolic blood pressure 119 mm[Hg] Basia Zarrabi DO Work Phone: [facility] 08-27-2021 05:00-0400 Diastolic blood pressure 76 mm[Hg] Basia Zarrabi DO Work Phone: [facility] 08-27-2021 05:00-0400 Heart rate 78 /min Basia Zarrabi DO Work Phone: [facility] 08-27-2021 05:00-0400 Respiratory rate 16 /min Basia Zarrabi DO Work Phone: [facility] 08-27-2021 05:00-0400 SaO2% (BldA) [Mass fraction] 99 % Basia Tristan DO Work Phone: [facility] 08-27-2021 05:00-0400 Systolic blood pressure 100 mm[Hg] Basia Caceresabi DO Work Phone: [facility] 08-27-2021 02:54-0400 Body height 152.4 cm Basia Caceresabi DO Work Phone: [facility] 08-27-2021 02:54-0400 Body mass index (BMI) [Ratio] 22.65 kg/m2 Basia Caceresabi DO Work Phone: [facility] 08-27-2021 02:54-0400 Body weight 52.62 kg Basia Tristan DO Work Phone: [facility] 08-27-2021 02:43-0400 Body temperature 98.91 [degF] Basia Tristan DO Work Phone: [facility] 08-25-2021 12:42-0400 Body height 160 cm Basia Tristan DO Work Phone: [facility] 08-25-2021 12:42-0400 Body mass index (BMI) [Ratio] 20.37 kg/m2 Basia Tristan DO Work Phone: [facility] 08-25-2021 12:42-0400 Body temperature 97.81 [degF] Basia Tristan DO Work Phone: [facility] 08-25-2021 12:42-0400 Body weight 52.16 kg Basia Caceresabi DO Work Phone: [facility] 08-25-2021 12:42-0400 Diastolic blood pressure 75 mm[Hg] Basia Caceresabi DO Work Phone: [facility] 08-25-2021 12:42-0400 Heart rate 85 /min Basia Tristan DO Work Phone: [facility] 08-25-2021 12:42-0400 Respiratory rate 16 /min Basia Tristan DO Work Phone: [facility] 08-25-2021 12:42-0400 SaO2% (BldA) [Mass fraction] 99 % Basia Tristan DO Work Phone: [facility] 08-25-2021 12:42-0400 Systolic blood pressure 132 mm[Hg] Basia Tristan DO Work Phone: [facility] 08-17-2021 13:03-0400 Body height 160 cm Basia Trisatn DO Work Phone: [facility] 08-17-2021 13:03-0400 Body mass index (BMI) [Ratio] 20.37 kg/m2 Basia Tristan DO Work Phone: [facility] 08-17-2021 13:03-0400 Body weight 52.16 kg Basia Tristan DO Work Phone: [facility] 08-17-2021 12:56-0400 Heart rate 100 /min Basia Tristan DO Work Phone: [facility] 08-17-2021 12:55-0400 Body temperature 98.71 [degF] Basia Tristan DO Work Phone: [facility] 08-17-2021 12:55-0400 Diastolic blood pressure 78 mm[Hg] Basia Tristan DO Work Phone: [facility] 08-17-2021 12:55-0400 Respiratory rate 16 /min Basia Tristan DO Work Phone: [facility] 08-17-2021 12:55-0400 SaO2% (BldA) [Mass fraction] 100 % Basia Tristan DO Work Phone: [facility] 08-17-2021 12:55-0400 Systolic blood pressure 114 mm[Hg] Basia Tristan DO Work Phone: [facility] 08-14-2021 17:08-0400 Body height 160 cm Basia Tristan DO Work Phone: [facility] 08-14-2021 17:08-0400 Body mass index (BMI) [Ratio] 20.37 kg/m2 Basia Tristan DO Work Phone: [facility] 08-14-2021 17:08-0400 Body temperature 98.49 [degF] Basia Tristan DO Work Phone: [facility] 08-14-2021 17:08-0400 Body weight 52.16 kg Basia Tristan DO Work Phone: [facility] 08-14-2021 17:08-0400 Diastolic blood pressure 86 mm[Hg] Basia Tristan DO Work Phone: [facility] 08-14-2021 17:08-0400 Heart rate 109 /min Basia Tristan DO Work Phone: [facility] 08-14-2021 17:08-0400 Respiratory rate 16 /min Basia Tristan DO Work Phone: [facility] 08-14-2021 17:08-0400 SaO2% (BldA) [Mass fraction] 100 % Basia Tristan DO Work Phone: [facility] 08-14-2021 17:08-0400 Systolic blood pressure 134 mm[Hg] Basia Tristan DO Work Phone: [facility] 07-31-2021 03:33-0400 Body height 152.4 cm Vaughn Montgomery MD Work Phone: [facility] [employer] 07-31-2021 03:33-0400 Body mass index (BMI) [Ratio] 22.26 kg/m2 Vaughn Montgomery MD Work Phone: [employer] [facility] 07-31-2021 03:33-0400 Body weight 51.71 kg Vaughn Montgomery MD Work Phone: [facility] 07-31-2021 03:24-0400 Body temperature 97.9 [degF] Vaughn Montgomery MD Work Phone: [facility] 07-31-2021 03:24-0400 Diastolic blood pressure 82 mm[Hg] Vaughn Montgomery MD Work Phone: [facility] [facility] 07-31-2021 03:24-0400 Heart rate 114 /min Vaughn Montgomery MD Work Phone: [facility] 07-31-2021 03:24-0400 Respiratory rate 16 /min Vaughn Montgomery MD Work Phone: [facility] 07-31-2021 03:24-0400 SaO2% (BldA) [Mass fraction] 100 % Vaughn Montgomery MD Work Phone: [facility] 07-31-2021 03:24-0400 Systolic blood pressure 129 mm[Hg] Vaughn Montgomery MD Work Phone: [facility] 07-20-2021 12:17-0400 Diastolic blood pressure 81 mm[Hg] Basia Zarrabi DO Work Phone: [facility] 07-20-2021 12:17-0400 Heart rate 86 /min Basia Zarrabi DO Work Phone: [facility] 07-20-2021 12:17-0400 Systolic blood pressure 115 mm[Hg] Basia Zarrabi DO Work Phone: [facility] 07-20-2021 11:38-0400 Body height 152.4 cm Basia Zarrabi DO Work Phone: [facility] 07-20-2021 11:38-0400 Body mass index (BMI) [Ratio] 22.26 kg/m2 Basia Zarrabi DO Work Phone: [facility] 07-20-2021 11:38-0400 Body temperature 98.01 [degF] Basia Tristan DO Work Phone: [facility] 07-20-2021 11:38-0400 Body weight 51.71 kg Basia Tristan DO Work Phone: [facility] 07-20-2021 11:38-0400 SaO2% (BldA) [Mass fraction] 98 % Basia Tristan DO Work Phone: [facility] 06-05-2021 06:06-0400 Body height 152.4 cm Maria Jordan MD Work Phone: [facility] 06-05-2021 06:06-0400 Body mass index (BMI) [Ratio] 22.07 kg/m2 Maria Jordan MD Work Phone: [facility] 06-05-2021 06:06-0400 Body weight 51.26 kg Maria Jordan MD Work Phone: [facility] 06-05-2021 06:05-0400 Body temperature 99 [degF] Maria Jordan MD Work Phone: [facility] 06-05-2021 06:05-0400 Diastolic blood pressure 81 mm[Hg] Maria Jordan MD Work Phone: [facility] 06-05-2021 06:05-0400 Heart rate 86 /min Maria Jordan MD Work Phone: [facility] 06-05-2021 06:05-0400 Respiratory rate 16 /min Maria Jordan MD Work Phone: [facility] 06-05-2021 06:05-0400 SaO2% (BldA) [Mass fraction] 97 % Maria Jordan MD Work Phone: [facility] 06-05-2021 06:05-0400 Systolic blood pressure 111 mm[Hg] Maria Jordan MD Work Phone: [facility] 06-04-2021 23:17-0400 SaO2% (BldA) [Mass fraction] 100 % Reanna Suazo DO Work Phone: [facility] 06-04-2021 22:28-0400 Diastolic blood pressure 83 mm[Hg] Reanna Suazo DO Work Phone: [facility] 06-04-2021 22:28-0400 Heart rate 81 /min Reanna Suazo DO Work Phone: [facility] 06-04-2021 22:28-0400 Respiratory rate 16 /min Reanna Suazo DO Work Phone: [facility] 06-04-2021 22:28-0400 Systolic blood pressure 113 mm[Hg] Reanna Suazo DO Work Phone: [facility] 06-04-2021 20:10-0400 Body height 152.4 cm Reanna Suazo DO Work Phone: [facility] 06-04-2021 20:10-0400 Body mass index (BMI) [Ratio] 22.24 kg/m2 Reanna Suazo DO Work Phone: [facility] 06-04-2021 20:10-0400 Body temperature 99 [degF] Reanna Suazo DO Work Phone: [facility] 06-04-2021 20:10-0400 Body weight 51.66 kg Reanna Suazo DO Work Phone: [facility] 06-01-2021 19:31-0400 Body height 152.4 cm Alex Fagan MD Work Phone: [facility] 06-01-2021 19:29-0400 Body temperature 98.49 [degF] Alex Fagan MD Work Phone: [facility] 06-01-2021 19:29-0400 Diastolic blood pressure 73 mm[Hg] Alex Fagan MD Work Phone: [facility] 06-01-2021 19:29-0400 Heart rate 82 /min Alex Fagan MD Work Phone: [facility] 06-01-2021 19:29-0400 Respiratory rate 16 /min Alex Fagan MD Work Phone: [facility] 06-01-2021 19:29-0400 SaO2% (BldA) [Mass fraction] 100 % Alex Fagan MD Work Phone: [facility] 06-01-2021 19:29-0400 Systolic blood pressure 120 mm[Hg] Alex Fagan MD Work Phone: [facility] 05-26-2021 13:15-0400 Heart rate 110 /min Matilda Peel DO Work Phone: [facility] 05-26-2021 13:15-0400 Respiratory rate 18 /min Matilda Peel DO Work Phone: [facility] 05-26-2021 13:15-0400 SaO2% (BldA) [Mass fraction] 100 % Matilda Emmett DO Work Phone: [facility] 05-26-2021 11:00-0400 Diastolic blood pressure 65 mm[Hg] Matilda Emmett DO Work Phone: [facility] 05-26-2021 11:00-0400 Systolic blood pressure 101 mm[Hg] Matilda Peel DO Work Phone: [facility] 05-26-2021 10:40-0400 Body temperature 100 [degF] Matilda Peel DO Work Phone: [facility] 05-26-2021 10:36-0400 Body height 152.4 cm Matilda Emmett DO Work Phone: [facility] 05-26-2021 10:36-0400 Body mass index (BMI) [Ratio] 23.05 kg/m2 Matilda Emmett DO Work Phone: [facility] 05-26-2021 10:36-0400 Body weight 53.52 kg Matilda Emmett DO Work Phone: [facility] 05-25-2021 13:52-0400 Body mass index (BMI) [Ratio] 21.65 kg/m2 Roxy [facility] 05-25-2021 13:52-0400 Body weight 53.7 kg Roxy [facility] 05-25-2021 13:52-0400 Diastolic blood pressure 89 mm[Hg] McSluis Walker [facility] 05-25-2021 13:52-0400 Systolic blood pressure 123 mm[Hg] McSa [facility] 05-22-2021 17:58-0400 Body height 152.4 cm Dipti Tiffanie PA-C Work Phone: [facility] 05-22-2021 17:58-0400 Body mass index (BMI) [Ratio] 22.89 kg/m2 Dipti Tiffanie PA-C Work Phone: [facility] 05-22-2021 17:58-0400 Body temperature 100.09 [degF] Dipti Tiffanie PA-C Work Phone: [facility] 05-22-2021 17:58-0400 Body weight 53.16 kg Dipti Tiffanie PA-C Work Phone: [facility] 05-22-2021 17:58-0400 Diastolic blood pressure 84 mm[Hg] Dipti Tiffanie PA-C Work Phone: [facility] 05-22-2021 17:58-0400 Heart rate 107 /min Dipti Tiffanie PA-C Work Phone: [facility] 05-22-2021 17:58-0400 Respiratory rate 16 /min Dipti Tiffanie PA-C Work Phone: [facility] 05-22-2021 17:58-0400 SaO2% (BldA) [Mass fraction] 98 % Dipti Tiffanie PA-C Work Phone: [facility] 05-22-2021 17:58-0400 Systolic blood pressure 124 mm[Hg] Dipti Tiffanie PA-C Work Phone: [facility] 08-26-2020 14:00-0400 Diastolic blood pressure 79 mm[Hg] Dharmesh Urbina DO Work Phone: [facility] 08-26-2020 14:00-0400 SaO2% (BldA) [Mass fraction] 100 % Dharmesh Urbina DO Work Phone: [facility] 08-26-2020 14:00-0400 Systolic blood pressure 116 mm[Hg] Dharmesh Urbina DO Work Phone: [facility] 08-26-2020 00:37-0400 Body height 152.4 cm Dharmesh Urbina DO Work Phone: [facility] 08-26-2020 00:37-0400 Body mass index (BMI) [Ratio] 24.33 kg/m2 Dharmesh Urbina DO Work Phone: [facility] 08-26-2020 00:37-0400 Body temperature 98.01 [degF] Dharmesh Urbina DO Work Phone: [facility] 08-26-2020 00:37-0400 Body weight 56.5 kg Dharmesh Urbina DO Work Phone: [facility] 08-26-2020 00:37-0400 Heart rate 89 /min Dharmesh Urbina DO Work Phone: [facility] 08-26-2020 00:37-0400 Respiratory rate 18 /min Dharmesh Urbina DO Work Phone: [facility] 08-23-2020 00:14-0400 Diastolic blood pressure 70 mm[Hg] Cory Patel MD Work Phone: [facility] 08-23-2020 00:14-0400 Heart rate 108 /min Cory Patel MD Work Phone: [facility] 08-23-2020 00:14-0400 Respiratory rate 16 /min Cory Patel MD Work Phone: [facility] 08-23-2020 00:14-0400 SaO2% (BldA) [Mass fraction] 99 % Cory Patel MD Work Phone: [facility] 08-23-2020 00:14-0400 Systolic blood pressure 118 mm[Hg] Cory Patel MD Work Phone: [facility] 08-22-2020 18:53-0400 Body height 152.4 cm Cory Patel MD Work Phone: [facility] 08-22-2020 18:53-0400 Body mass index (BMI) [Ratio] 23.9 kg/m2 Cory Patel MD Work Phone: [facility] 08-22-2020 18:53-0400 Body temperature 98.2 [degF] Cory Patel MD Work Phone: [facility] 08-22-2020 18:53-0400 Body weight 55.52 kg Cory Patel MD Work Phone: [facility] 08-09-2020 00:40-0400 Body height 152.4 cm Jakub Griffin Jr., DO Work Phone: [facility] 08-09-2020 00:40-0400 Body mass index (BMI) [Ratio] 23.44 kg/m2 Jakub Griffin Jr., DO Work Phone: [facility] 08-09-2020 00:40-0400 Body temperature 98.29 [degF] Jakub Griffin Jr., DO Work Phone: [facility] 08-09-2020 00:40-0400 Body weight 54.43 kg Jakub Griffin Jr., DO Work Phone: [facility] 08-09-2020 00:40-0400 Diastolic blood pressure 86 mm[Hg] Jakub Griffin Jr., DO Work Phone: [facility] 08-09-2020 00:40-0400 Heart rate 82 /min Jakub Griffin Jr., DO Work Phone: [facility] 08-09-2020 00:40-0400 Respiratory rate 16 /min Jakub Griffin Jr., DO Work Phone: [facility] 08-09-2020 00:40-0400 SaO2% (BldA) [Mass fraction] 100 % Jakub Griffin Jr., DO Work Phone: [facility] 08-09-2020 00:40-0400 Systolic blood pressure 122 mm[Hg] Jakub Griffin Jr., DO Work Phone: [facility] 08-03-2020 11:09-0400 Body temperature 97.81 [degF] Paddy Raffaele DO Work Phone: [facility] 08-03-2020 11:09-0400 Diastolic blood pressure 55 mm[Hg] Paddy Castorena DO Work Phone: [facility] Comment on above: RN notified 08-03-2020 11:09-0400 Heart rate 73 /min Paddymanasa Castorena DO Work Phone: [facility] 08-03-2020 11:09-0400 Respiratory rate 14 /min Paddy Raffaele DO Work Phone: [facility] 08-03-2020 11:09-0400 SaO2% (BldA) [Mass fraction] 100 % Paddy Rybaltoqing DO Work Phone: [facility] 08-03-2020 11:09-0400 Systolic blood pressure 89 mm[Hg] Paddymanasa Holguintoqing DO Work Phone: [facility] Comment on above: RN notified 08-03-2020 06:33-0400 Body height 152.4 cm Paddymanasa Castorena DO Work Phone: [facility] 08-03-2020 06:33-0400 Body mass index (BMI) [Ratio] 23.44 kg/m2 Paddy Holguintoqing DO Work Phone: [facility] 08-03-2020 06:33-0400 Body weight 54.43 kg Paddy Castorena DO Work Phone: [facility] 07-17-2020 20:50-0400 Diastolic blood pressure 62 mm[Hg] Coni Anguiano MD Work Phone: [facility] 07-17-2020 20:50-0400 Heart rate 79 /min Coni Anguiano MD Work Phone: [facility] 07-17-2020 20:50-0400 Respiratory rate 16 /min Coni Anguiano MD Work Phone: [facility] 07-17-2020 20:50-0400 SaO2% (BldA) [Mass fraction] 99 % Coni Anguiano MD Work Phone: [facility] 07-17-2020 20:50-0400 Systolic blood pressure 98 mm[Hg] Coni Anguiano MD Work Phone: [facility] 07-17-2020 17:06-0400 Body height 152.4 cm Coni Anguiano MD Work Phone: [facility] 07-17-2020 17:06-0400 Body mass index (BMI) [Ratio] 23.24 kg/m2 Coni Anguiano MD Work Phone: [facility] 07-17-2020 17:06-0400 Body temperature 98.6 [degF] Coni Anguiano MD Work Phone: [facility] 07-17-2020 17:06-0400 Body weight 53.98 kg Coni Anguiano MD Work Phone: [facility] 07-04-2020 15:30-0400 Body temperature 98.4 [degF] Nathan Amin DO Work Phone: [facility] 07-04-2020 15:30-0400 Diastolic blood pressure 66 mm[Hg] Nathan Amin DO Work Phone: [facility] 07-04-2020 15:30-0400 Heart rate 85 /min Nathan Amin DO Work Phone: [facility] 07-04-2020 15:30-0400 Respiratory rate 16 /min Nathan Amin DO Work Phone: [facility] 07-04-2020 15:30-0400 SaO2% (BldA) [Mass fraction] 98 % Nathan Amin DO Work Phone: [facility] 07-04-2020 15:30-0400 Systolic blood pressure 101 mm[Hg] Nathan Amin DO Work Phone: [facility] 07-03-2020 17:47-0400 Body height 152.4 cm Nathan Amin DO Work Phone: [facility] 07-03-2020 17:47-0400 Body mass index (BMI) [Ratio] 22.64 kg/m2 Nathan Amin DO Work Phone: [facility] 07-03-2020 17:47-0400 Body weight 52.57 kg Nathan Amin DO Work Phone: [facility] 06-07-2020 03:05-0400 BMI (Body Mass Index) 23.22 kg/m2 [facility] 06-07-2020 03:05-0400 Body Temperature 98.29 [degF] [facility] 06-07-2020 03:05-0400 Body weight 53.93 kg [facility] 06-07-2020 03:05-0400 BP Diastolic 72 mm[Hg] [facility] 06-07-2020 03:05-0400 BP Systolic 104 mm[Hg] [facility] 06-07-2020 03:05-0400 Height 152.4 cm [facility] 06-07-2020 03:05-0400 Pulse (Heart Rate) 112 /min [facility] 06-07-2020 03:05-0400 Pulse Oximetry 100 % [facility] 06-07-2020 03:05-0400 Respiratory Rate 16 /min [facility] 05-13-2020 03:26-0500 BP Diastolic 68 mm[Hg] Dylan Chan [facility] 05-13-2020 03:26-0500 BP Systolic 97 mm[Hg] Dylan Chan [facility] 05-13-2020 03:26-0500 Pulse (Heart Rate) 74 /min Dylan Chan [facility] 05-13-2020 03:26-0500 Pulse Oximetry 100 % Dylan Chan [facility] 05-13-2020 03:26-0500 Respiratory Rate 16 /min Dylan Chan [facility] 05-13-2020 00:20-0500 BMI (Body Mass Index) 24 kg/m2 Dylan Chan [facility] 05-13-2020 00:20-0500 Body Temperature 98.4 [degF] Dylan Chan [facility] 05-13-2020 00:20-0500 Body weight 55.75 kg Dylan Chan [facility] 05-13-2020 00:20-0500 Height 152.4 cm Dylan [facility] 04-26-2020 21:40-0500 BP Diastolic 80 mm[Hg] Ankur [facility] 04-26-2020 21:40-0500 BP Systolic 125 mm[Hg] Ankur [facility] 04-26-2020 21:40-0500 Pulse (Heart Rate) 102 /min [facility] 04-26-2020 21:40-0500 Pulse Oximetry 98 % Ankur [facility] 04-26-2020 21:40-0500 Respiratory Rate 18 /min Ankur [facility] 04-26-2020 20:11-0500 Body Temperature 98.4 [degF] Ankur [facility] 04-26-2020 20:08-0500 BMI (Body Mass Index) 24.24 kg/m2 Ankur [facility] 04-26-2020 20:08-0500 Body weight 56.29 kg Ankur [facility] 04-26-2020 20:08-0500 Height 152.4 cm Ankur [facility] 04-06-2020 22:00-0500 BP Diastolic 69 mm[Hg] [facility] 04-06-2020 22:00-0500 BP Systolic 97 mm[Hg] [facility] 04-06-2020 22:00-0500 Pulse (Heart Rate) 85 /min [facility] 04-06-2020 22:00-0500 Pulse Oximetry 100 % [facility] 04-06-2020 22:00-0500 Respiratory Rate 13 /min [facility] 04-06-2020 18:55-0500 Body Temperature 99 [degF] [facility] 04-06-2020 18:18-0500 BMI (Body Mass Index) 23.69 kg/m2 [facility] 04-06-2020 18:18-0500 Body weight 55.02 kg [facility] 04-06-2020 18:18-0500 Height 152.4 cm [facility] 02-08-2020 05:50-0500 BP Diastolic 80 mm[Hg] [facility] 02-08-2020 05:50-0500 BP Systolic 108 mm[Hg] [facility] 02-08-2020 05:50-0500 Pulse (Heart Rate) 92 /min [facility] 02-08-2020 05:50-0500 Pulse Oximetry 97 % [facility] 02-08-2020 05:50-0500 Respiratory Rate 1 /min [facility] 02-08-2020 03:00-0500 BMI (Body Mass Index) 24 kg/m2 [facility] 02-08-2020 03:00-0500 Body Temperature 98.6 [degF] [facility] 02-08-2020 03:00-0500 Body weight 55.75 kg [facility] 02-08-2020 03:00-0500 Height 152.4 cm [facility] 02-04-2020 21:37-0500 BP Diastolic 77 mm[Hg] Apolonia Anne [facility] 02-04-2020 21:37-0500 BP Systolic 110 mm[Hg] Apolonia Anne [facility] 02-04-2020 21:37-0500 Pulse (Heart Rate) 78 /min Apolonia Anne [facility] 02-04-2020 21:37-0500 Pulse Oximetry 98 % Apolonia Anne [facility] 02-04-2020 21:37-0500 Respiratory Rate 16 /min Apolonia Anne [facility] 02-04-2020 19:10-0500 Body Temperature 98.8 [degF] Apolonia Anne [facility] 02-04-2020 19:08-0500 BMI (Body Mass Index) 24.61 kg/m2 Apolonia Anne [facility] 02-04-2020 19:08-0500 Body weight 57.15 kg Apolonia Anne [facility] 02-04-2020 19:08-0500 Height 152.4 cm Apolonia Anne [facility] 01-29-2020 14:00-0500 BP Diastolic 76 mm[Hg] [facility] 01-29-2020 14:00-0500 BP Systolic 112 mm[Hg] [facility] 01-29-2020 14:00-0500 Pulse (Heart Rate) 114 /min [facility] 01-29-2020 14:00-0500 Pulse Oximetry 100 % [facility] 01-29-2020 14:00-0500 Respiratory Rate 16 /min [facility] 01-29-2020 02:48-0500 Body Temperature 99.19 [degF] [facility] 01-29-2020 01:12-0500 BMI (Body Mass Index) 24.41 kg/m2 [facility] 01-29-2020 01:12-0500 Body weight 56.7 kg [facility] 01-29-2020 01:12-0500 Height 152.4 cm [facility] 01-23-2020 00:24-0500 BP Diastolic 76 mm[Hg] [facility] 01-23-2020 00:24-0500 BP Systolic 113 mm[Hg] [facility] 01-23-2020 00:24-0500 Pulse (Heart Rate) 81 /min [facility] 01-23-2020 00:24-0500 Pulse Oximetry 99 % [facility] 01-23-2020 00:24-0500 Respiratory Rate 16 /min [facility] 01-22-2020 20:47-0500 BMI (Body Mass Index) 22.41 kg/m2 [facility] 01-22-2020 20:47-0500 Body Temperature 98.6 [degF] [facility] 01-22-2020 20:47-0500 Body weight 55.57 kg Mariaelena Spencer [facility] 01-22-2020 20:47-0500 Height 157.5 cm Mairaelena Spencer [facility] 01-15-2020 01:37-0500 BP Diastolic 72 mm[Hg] Jakub Stone [facility] 01-15-2020 01:37-0500 BP Systolic 111 mm[Hg] Jakub Stone [facility] 01-15-2020 01:37-0500 Pulse (Heart Rate) 82 /min Jakub Stone [facility] 01-15-2020 01:37-0500 Pulse Oximetry 98 % Jakub Stone [facility] 01-15-2020 01:37-0500 Respiratory Rate 16 /min Jakub Stone [facility] 01-14-2020 20:20-0500 BMI (Body Mass Index) 23.83 kg/m2 Jakub Stone [facility] 01-14-2020 20:20-0500 Body Temperature 99 [degF] Jakub Stone [facility] 01-14-2020 20:20-0500 Body weight 55.34 kg Jakub Stone [facility] 01-14-2020 20:20-0500 Height 152.4 cm Jakub Stone [facility] 12-15-2019 03:00-0400 BP Diastolic 61 mm[Hg] Nathan Latham [facility] 12-15-2019 03:00-0400 BP Systolic 103 mm[Hg] Nathan Latham [facility] 12-15-2019 03:00-0400 Pulse (Heart Rate) 79 /min Nathan Latham [facility] 12-15-2019 03:00-0400 Pulse Oximetry 98 % Nathan Latham [facility] 12-15-2019 03:00-0400 Respiratory Rate 17 /min Nathan Lathma [facility] 12-14-2019 20:44-0400 BMI (Body Mass Index) 23.69 kg/m2 Nathan Latham [facility] 12-14-2019 20:44-0400 Body Temperature 98.71 [degF] Nathan Latham [facility] 12-14-2019 20:44-0400 Body weight 55.02 kg Nathan Latham [facility] 12-14-2019 20:44-0400 Height 152.4 cm Nathan Latham [facility] 12-07-2019 07:46-0400 Body Temperature 97.5 [degF] Slick Whelan [facility] 12-07-2019 07:46-0400 BP Diastolic 72 mm[Hg] Slick Whelan [facility] 12-07-2019 07:46-0400 BP Systolic 106 mm[Hg] Slick Whelan [facility] 12-07-2019 07:46-0400 Pulse (Heart Rate) 66 /min Slick Whelan [facility] 12-07-2019 07:46-0400 Pulse Oximetry 100 % Slick Whelan [facility] 12-07-2019 07:46-0400 Respiratory Rate 16 /min Slick Whelan [facility] 12-05-2019 17:39-0400 BMI (Body Mass Index) 23.83 kg/m2 Slick Whelan [facility] 12-05-2019 17:39-0400 Body weight 55.34 kg Slick Whelan [facility] 12-05-2019 17:39-0400 Height 152.4 cm Slick Whelan [facility] 11-28-2019 23:37-0400 BP Diastolic 73 mm[Hg] [facility] 11-28-2019 23:37-0400 BP Systolic 111 mm[Hg] [facility] 11-28-2019 23:37-0400 Pulse (Heart Rate) 82 /min [facility] 11-28-2019 23:37-0400 Pulse Oximetry 100 % [facility] 11-28-2019 23:37-0400 Respiratory Rate 14 /min [facility] 11-28-2019 18:33-0400 BMI (Body Mass Index) 24.02 kg/m2 [facility] 11-28-2019 18:33-0400 Body Temperature 98.6 [degF] [facility] 11-28-2019 18:33-0400 Body weight 55.79 kg [facility] 11-28-2019 18:33-0400 [facility] 22:49-0400 BP Di[facility] 76 mm[Hg] [facility] 22:49-0400 BP Systolic 97 mm[Hg] [facility] 11-25-2019 22:49-0400 Pulse (Heart Rate) 80 /min [facility] 11-25-2019 22:49-0400 [facility]ulse [facility] 99 % [facility]-25-[facility] 22:49-0400 Respiratory Rate 16 /min [facility] 11-25-2019 19:45-0400 BMI (Body Mass Index) 24.33 kg/m2 [facility] 11-25-2019 19:45-0400 Body Temperature 99 [degF] [facility] 11-25-2019 19:45-0400 Body weight 56.52 kg [facility] 11-25-2019 19:45-0400 Height 152.4 cm [facility] 11-21-2019 19:11-0400 BMI (Body Mass Index) 24.04 kg/m2 [facility] 11-21-2019 19:11-0400 Body Temperature 99.5 [degF] [facility] 11-21-2019 19:11-0400 Body weight 55.84 kg [facility] 11-21-2019 19:11-0400 BP Diastolic 77 mm[Hg] [facility] 11-21-2019 19:11-0400 BP Systolic 109 mm[Hg] [facility] 11-21-2019 19:11-0400 Height 152.4 cm [facility] 11-21-2019 19:11-0400 Pulse (Heart Rate) 94 /min [facility] 11-21-2019 19:11-0400 Pulse Oximetry 98 % [facility] 11-21-2019 19:11-0400 Respiratory Rate 16 /min [facility] 11-20-2019 13:19-0400 BMI (Body Mass Index) 24.22 kg/m2 [facility] 11-20-2019 13:19-0400 Body Temperature 98.29 [degF] [facility] 11-20-2019 13:19-0400 Body weight 56.25 kg Yan [facility] 11-20-2019 13:19-0400 BP Diastolic 80 mm[Hg] [facility] 11-20-2019 13:19-0400 BP Systolic 125 mm[Hg] [facility] 11-20-2019 13:19-0400 Height 152.4 cm [facility] 11-20-2019 13:19-0400 Pulse (Heart Rate) 96 /min Yan Zuñiga [facility] 11-19-2019 07:40-0400 Body Temperature 97.9 [degF] [facility] 11-19-2019 07:40-0400 BP Diastolic 73 mm[Hg] [facility] 11-19-2019 07:40-0400 BP Systolic 107 mm[Hg] [facility] 11-19-2019 07:40-0400 Pulse (Heart Rate) 97 /min [facility] 11-19-2019 07:40-0400 Pulse Oximetry 100 % [facility] 11-19-2019 07:40-0400 Respiratory Rate 12 /min [facility] 11-18-2019 17:04-0400 BMI (Body Mass Index) 24.22 kg/m2 [facility] 11-18-2019 17:04-0400 Body weight 56.25 kg [facility] 11-17-2019 18:26-0400 Height 152.4 cm [facility] 11-16-2019 09:41-0400 BMI (Body Mass Index) 24.22 kg/m2 [facility] 11-16-2019 09:41-0400 Body Temperature 98.01 [degF] [facility] 11-16-2019 09:41-0400 Body weight 56.25 kg [facility] 11-16-2019 09:41-0400 BP Diastolic 87 mm[Hg] [facility] 11-16-2019 09:41-0400 BP Systolic 123 mm[Hg] [facility] 11-16-2019 09:41-0400 Height 152.4 cm [facility] 11-16-2019 09:41-0400 Pulse (Heart Rate) 102 /min [facility] 11-14-2019 19:26-0400 BMI (Body Mass Index) 24.35 kg/m2 Slick Whelan [facility] 11-14-2019 19:26-0400 Body Temperature 98.01 [degF] Slick Whelan [facility] 11-14-2019 19:26-0400 Body weight 56.56 kg Slick Whelan [facility] 11-14-2019 19:26-0400 BP Diastolic 85 mm[Hg] Slick Whelan [facility] 11-14-2019 19:26-0400 BP Systolic 122 mm[Hg] Slick Whelan [facility] 11-14-2019 19:26-0400 Height 152.4 cm Slick Whelan [facility] 11-14-2019 19:26-0400 Pulse (Heart Rate) 90 /min Slick Whelan [facility] 11-14-2019 19:26-0400 Pulse Oximetry 99 % Slick Whelan [facility] 11-14-2019 19:26-0400 Respiratory Rate 16 /min Slick Whelan [facility] 11-11-2019 13:39-0400 Pulse Oximetry 99 % Antwan [facility] 11-11-2019 13:20-0400 BMI (Body Mass Index) 24.22 kg/m2 [facility] 11-11-2019 13:20-0400 Body Temperature 98.2 [degF] [facility] 11-11-2019 13:20-0400 Body weight 56.25 kg [facility] 11-11-2019 13:20-0400 BP Diastolic 79 mm[Hg] [facility] 11-11-2019 13:20-0400 BP Systolic 110 mm[Hg] [facility] 11-11-2019 13:20-0400 Height 152.4 cm [facility] 11-11-2019 13:20-0400 Pulse (Heart Rate) 76 /min [facility] 11-11-2019 13:20-0400 Respiratory Rate 16 /min [facility] 11-07-2019 07:35-0400 BMI (Body Mass Index) 25.19 kg/m2 [facility] 11-07-2019 07:35-0400 Body Temperature 98.4 [degF] [facility] 11-07-2019 07:35-0400 Body weight 58.51 kg [facility] 11-07-2019 07:35-0400 BP Diastolic 80 mm[Hg] [facility] 11-07-2019 07:35-0400 BP Systolic 122 mm[Hg] [facility] 11-07-2019 07:35-0400 Height 152.4 cm [facility] 11-07-2019 07:35-0400 Pulse (Heart Rate) 95 /min [facility] 11-07-2019 07:35-0400 Pulse Oximetry 98 % Eben Rios [facility] 11-07-2019 07:35-0400 Respiratory Rate 18 /min Eben Rios [facility] 11-05-2019 16:00-0400 Pulse Oximetry 100 % Honorio Jalloh [facility] 11-05-2019 15:45-0400 Body Temperature 97 [degF] Honorio [facility] 11-05-2019 15:45-0400 BP Diastolic 79 mm[Hg] Honorio [facility] 11-05-2019 15:45-0400 BP Systolic 112 mm[Hg] Honorio Jalloh [facility] 11-05-2019 15:45-0400 Pulse (Heart Rate) 76 /min Honorio Jalloh [facility] 11-05-2019 15:45-0400 Respiratory Rate 18 /min Honoriojaneen Jalloh [facility] 2019 19:08-0400 BMI (Body Mass Index) 24.41 kg/m2 Honorio [facility] 2019 19:08-0400 Body weight 56.7 kg Honorio [facility] 2019 19:08-0400 Height 152.4 cm Honorio [facility] 2019 11:57-0400 Body Temperature 98.4 [degF] Dharmesh [facility] 2019 11:57-0400 BP Diastolic 67 mm[Hg] [facility] 2019 11:57-0400 BP Systolic 100 mm[Hg] Dharmesh [facility] 2019 11:57-0400 Pulse (Heart Rate) 85 /min Dharmesh [facility] 2019 11:57-0400 Pulse Oximetry 98 % [facility] 2019 11:57-0400 Respiratory Rate 16 /min Dharmesh [facility] 11-03-2019 20:03-0400 BMI (Body Mass Index) 24.02 kg/m2 [facility] 11-03-2019 20:03-0400 Body weight 55.79 kg Dharmesh [facility] 11-03-2019 20:03-0400 Height 152.4 cm Dharmesh [facility] 11-02-2019 11:48-0400 Body Temperature 98.4 [degF] Kina Smith [facility] 11-02-2019 11:48-0400 BP Diastolic 78 mm[Hg] Kina Smith [facility] 11-02-2019 11:48-0400 BP Systolic 120 mm[Hg] Kian Smith [facility] 11-02-2019 11:48-0400 Pulse (Heart Rate) 90 /min Kina Smith [facility] 11-02-2019 11:48-0400 Pulse Oximetry 100 % Kina Smith [facility] 11-02-2019 11:48-0400 Respiratory Rate 16 /min Kina Smith [facility] 11-01-2019 06:33-0400 BMI (Body Mass Index) 25.39 kg/m2 Kina Smith [facility] 11-01-2019 06:33-0400 Body weight 58.97 kg Kina Smith [facility] 11-01-2019 06:33-0400 Height 152.4 cm Kina Smith [facility] 10-31-2019 14:23-0400 Body Temperature 98.01 [degF] Yan Zuñiga [facility] 10-31-2019 14:00-0400 Pulse ([facility] Rate) 67 /min [facility] 14:00-0400 Pulse [facility]xim[facility] 100 % [facility] 10-31-[facility] 14:00-0400 Respiratory Rate 13 /min [facility] 10-31-2019 13:45-0400 BP Diastolic 66 mm[Hg] [facility] 10-[facility]-2019 13:45-0400 BP Systolic 96 mm[Hg] [facility] 10-31-2019 11:34-0400 BMI (Body Mass Index) 24.33 kg/m2 [facility] 10-31-2019 11:34-0400 Body weight 56.5 [facility] 10-31-2019 11:34-0400 Height 152.4 cm Yan Zuñiga [facility] 10-25-2019 22:43-0400 BP Diastolic 70 mm[Hg] Antwan Yeung [facility] 10-25-2019 22:43-0400 BP Systolic 110 mm[Hg] Antwan Yeung [facility] 10-25-2019 22:43-0400 Pulse (Heart Rate) 92 /min Antwan Yeung [facility] 10-25-2019 22:43-0400 Pulse Oximetry 97 % Antwan Yeung [facility] 10-25-2019 19:54-0400 BMI (Body Mass Index) 25.39 kg/m2 Antwan Yeung [facility] 10-25-2019 19:54-0400 Body Temperature 99.3 [degF] Antwan Yeung [facility] 10-25-2019 19:54-0400 Body weight 58.97 kg Antwan Gamal [facility] 10-25-2019 19:54-0400 Height 152.4 cm Antwan [facility] 10-25-2019 19:54-0400 Respiratory Rate 17 /min Atnwan [facility] 10-25-2019 13:02-0400 BMI (Body Mass Index) 25.39 kg/m2 [facility]-25-[facility] 13:02-0400 Body Temperature 98.71 [degF] Yan [facility] 10-25-2019 13:02-0400 Body weight 58.97 kg Yan [facility] 10-25-2019 13:02-0400 BP Diastolic 77 mm[Hg] [facility] 10-25-2019 13:02-0400 BP Systolic 113 mm[Hg] [facility] 10-25-2019 13:02-0400 Height 152.4 cm Yan [facility] 10-25-2019 13:02-0400 Pulse (Heart Rate) 86 /min Yan [facility] 10-16-2019 13:22-0400 BMI (Body Mass Index) 25.39 kg/m2 [facility] 10-16-2019 13:22-0400 Body Temperature 99 [degF] [facility] 10-16-2019 13:22-0400 Body weight 58.97 kg [facility] 10-16-2019 13:22-0400 BP Diastolic 83 mm[Hg] [facility] 10-16-2019 13:22-0400 BP Systolic 106 mm[Hg] [facility] 10-16-2019 13:22-0400 Height 152.4 cm [facility] 10-16-2019 13:22-0400 Pulse (Heart Rate) 90 /min [facility] 10-16-2019 13:22-0400 Pulse Oximetry 100 % [facility] 10-16-2019 13:22-0400 Respiratory Rate 16 /min [facility] 09-30-2019 20:00-0400 BP Diastolic 71 mm[Hg] Slick Whelan [facility] 09-30-2019 20:00-0400 BP Systolic 112 mm[Hg] Slick Whelan [facility] 09-30-2019 20:00-0400 Pulse (Heart Rate) 95 /min Slick Whelan [facility] 09-30-2019 20:00-0400 Pulse Oximetry 98 % Slick Whelan [facility] 09-30-2019 20:00-0400 Respiratory Rate 16 /min Slick Whelan [facility] 09-30-2019 18:00-0400 BMI (Body Mass Index) 25.39 kg/m2 Slick Whelan [facility] 09-30-2019 18:00-0400 Body Temperature 97.9 [degF] Slick Whelan [facility] 09-30-2019 18:00-0400 Body weight 58.97 kg Slick Whelan [facility] 09-30-2019 18:00-0400 Height 152.4 cm Slick Whelna [facility] 05-15-2019 10:31-0400 BMI (Body Mass Index) 25.37 kg/m2 Ankur Mejia [facility] 05-15-2019 10:31-0400 Body weight 58.92 kg Ankur Mejia [facility] 05-15-2019 10:31-0400 BP Diastolic 81 mm[Hg] Ankur Mejia [facility] 05-15-2019 10:31-0400 BP Systolic 112 mm[Hg] Ankur Mejia [facility] 05-15-2019 10:31-0400 Height 152.4 cm Ankur Mejia [facility] 05-15-2019 10:31-0400 Pulse (Heart Rate) 83 /min Ankur Mejia [facility] 03-16-2019 07:30-0500 Body Temperature 98.4 [degF] [facility]-16-[facility] 07:30-0500 BP Diastolic 69 mm[Hg] Dylan [facility] 03-16-2019 07:30-0500 BP Systolic 104 mm[Hg] Dylan [facility] 03-16-2019 07:30-0500 Pulse (Heart Rate) 74 /min Dylan [facility] 03-16-2019 07:30-0500 Pulse Oximetry 97 % Dylan [facility] 03-16-2019 07:30-0500 Respiratory Rate 16 /min Dylan [facility] 12-07-2018 22:51-0400 BP Diastolic 80 mm[Hg] [facility] 12-07-2018 22:51-0400 BP Systolic 106 mm[Hg] [facility] 12-07-2018 22:51-0400 Pulse (Heart Rate) 83 /min [facility] 12-07-2018 22:51-0400 Pulse Oximetry 100 % [facility] 12-07-2018 22:51-0400 Respiratory Rate 16 /min [facility] 12-07-2018 20:57-0400 BMI (Body Mass Index) 26.17 kg/m2 [facility] 12-07-2018 20:57-0400 Body Temperature 98.4 [degF] [facility] 12-07-2018 20:57-0400 Body weight 60.78 kg [facility] 12-07-2018 20:57-0400 Height 152.4 cm [facility] 04-30-2018 17:59-0500 BP Diastolic 61 mm[Hg] [facility] 04-30-2018 17:59-0500 BP Systolic 92 mm[Hg] [facility] 04-30-2018 17:59-0500 Pulse (Heart Rate) 98 /min [facility] 04-30-2018 17:59-0500 Pulse Oximetry 98 % [facility] 04-30-2018 17:59-0500 Respiratory Rate 16 /min [facility] 04-30-2018 15:51-0500 BMI (Body Mass Index) 26.37 kg/m2 [facility] 04-30-2018 15:51-0500 Body Temperature 99.5 [degF] [facility] 04-30-2018 15:51-0500 Height 152.4 cm [facility] 04-30-2018 15:51-0500 Weight 61.24 kg [facility] 03-30-2018 19:32-0500 BMI (Body Mass Index) 26.37 kg/m2 [facility] 03-30-2018 19:32-0500 Body Temperature 98.29 [degF] [facility] 03-30-2018 19:32-0500 BP Diastolic 83 mm[Hg] [facility] 03-30-2018 19:32-0500 BP Systolic 133 mm[Hg] Ryan [facility] 03-30-2018 19:32-0500 Height 152.4 cm [facility] 03-30-2018 19:32-0500 Pulse (Heart Rate) 104 /min [facility] 03-30-2018 19:32-0500 Pulse Oximetry 100 % [facility] 03-30-2018 19:32-0500 Respiratory Rate 16 /min [facility] 03-30-2018 19:32-0500 Weight 61.24 kg [facility] 03-11-2018 09:23-0500 Body Temperature 98.49 [degF] Burton Villafana [facility] 03-11-2018 09:23-0500 BP Diastolic 67 mm[Hg] Burtonmarlin Villafana [facility] 03-11-2018 09:23-0500 BP Systolic 110 mm[Hg] Burtonmarlin Villafana [facility] 03-11-2018 09:23-0500 Pulse (Heart Rate) 85 /min Burton Villafana [facility] 03-11-2018 09:23-0500 Pulse Oximetry 98 % Burtonmarlin Villafana [facility] 03-11-2018 09:23-0500 Respiratory Rate 18 /min Burton Villafana [facility] 02-15-2018 20:37-0500 Body Temperature 98.2 [degF] Reanna Bergman [facility] 02-15-2018 20:37-0500 BP Diastolic 62 mm[Hg] Reanna Bergman [facility] 02-15-2018 20:37-0500 BP Systolic 105 mm[Hg] Reanna Bergman [facility] 02-15-2018 20:37-0500 Pulse (Heart Rate) 76 /min Reanna Bergman [facility] 02-15-2018 20:37-0500 Pulse Oximetry 100 % Reanna Bergman [facility] 02-15-2018 20:37-0500 Respiratory Rate 14 /min Reanna Bergman [facility] 02-15-2018 17:56-0500 BMI (Body Mass Index) 27.34 kg/m2 Reanna Bergman [facility] 02-15-2018 17:56-0500 Height 152.4 cm Reanna Pacheco [facility] 02-15-2018 17:56-0500 Weight 63.5 kg Reanna Bergman [facility] 02-02-2018 13:58-0500 BMI (Body Mass Index) 25.78 kg/m2 Yan Zuñiga [facility] 02-02-2018 13:58-0500 BP Diastolic 73 mm[Hg] [facility] 13:58-0500 BP Systolic 135 mm[Hg] [facility] 02-02-2018 13:58-0500 Height 152.4 cm Yan [facility] 02-02-2018 13:58-0500 Pulse (Heart Rate) 109 /min Yan [facility] 02-02-2018 13:58-0500 Respiratory Rate 16 /min [facility] 02-02-2018 13:58-0500 Weight 59.88 kg [facility] 01-09-2018 17:02-0500 Respiratory Rate 16 /min [facility] 01-09-2018 17:01-0500 BP Diastolic 57 mm[Hg] [facility] 01-09-2018 17:01-0500 BP Systolic 101 mm[Hg] [facility] 01-09-2018 17:01-0500 Pulse (Heart Rate) 88 /min [facility] 01-09-2018 17:01-0500 Pulse Oximetry 100 % [facility] 01-09-2018 13:49-0500 BMI (Body Mass Index) 25.19 kg/m2 [facility] 01-09-2018 13:49-0500 Body Temperature 98.1 [degF] [facility] 01-09-2018 13:49-0500 Height 152.4 cm [facility] 01-09-2018 13:49-0500 Weight 58.51 kg [facility] 12-15-2017 21:37-0400 BMI (Body Mass Index) 25.39 kg/m2 Eben Rios [facility] 12-15-2017 21:37-0400 Body Temperature 98.1 [degF] Eben Broussardjuanita [facility] 12-15-2017 21:37-0400 BP Diastolic 66 mm[Hg] Eben Rios [facility] 12-15-2017 21:37-0400 BP Systolic 104 mm[Hg] Eben Rios [facility] 12-15-2017 21:37-0400 Height 152.4 cm Eben Rios [facility] 12-15-2017 21:37-0400 Pulse (Heart Rate) 102 /min Eben Rios [facility] 12-15-2017 21:37-0400 Pulse Oximetry 100 % Eben Rios [facility] 12-15-2017 21:37-0400 Respiratory Rate 16 /min Eben Rios [facility] 12-15-2017 21:37-0400 Weight 58.97 [facility] 10-08-2017 18:42-0400 BP Diastolic 66 mm[Hg] [facility] 10-08-2017 18:42-0400 BP Systolic 109 mm[Hg] [facility] 10-08-2017 18:42-0400 Pulse (Heart Rate) 104 /min Eben [facility] 10-08-2017 18:42-0400 Pulse Oximetry 100 % Eben [facility] 10-08-2017 18:42-0400 Respiratory Rate 16 /min Eben [facility] 10-08-2017 16:24-0400 BMI (Body Mass Index) 25.39 kg/m2 Eben [facility] 10-08-2017 16:24-0400 Body Temperature 98.71 [degF] Eben [facility] 10-08-2017 16:24-0400 Height 152.4 cm Eben [facility] 10-08-2017 16:24-0400 Weight 58.97 kg Eben [facility] 09-20-2017 20:33-0400 BP Diastolic 64 mm[Hg] Pito [facility] 09-20-2017 20:33-0400 BP Systolic 106 mm[Hg] Pito [facility] 09-20-2017 20:33-0400 Pulse (Heart Rate) 80 /min Pito [facility] 09-20-2017 20:33-0400 Pulse Oximetry 98 % Pito [facility] 09-20-2017 20:33-0400 Respiratory Rate 16 /min Pito [facility] 09-20-2017 18:30-0400 BMI (Body Mass Index) 25.39 kg/m2 Pito [facility] 09-20-2017 18:30-0400 Body Temperature 98.4 [degF] Pito Ortega [facility] 09-20-2017 18:30-0400 Height 152.4 cm Pito Ortega [facility] 09-20-2017 18:30-0400 Weight 58.97 kg Pito Ortega [facility] 09-16-2017 01:07-0400 BMI (Body Mass Index) 25.39 kg/m2 [facility] 09-16-2017 01:07-0400 Body Temperature 98.29 [degF] Alhaji Altman [facility] 09-16-2017 01:07-0400 BP Diastolic 91 mm[Hg] [facility] 09-16-2017 01:07-0400 BP Systolic 129 mm[Hg] [facility] 09-16-2017 01:07-0400 Height 152.4 cm [facility] 09-16-2017 01:07-0400 Pulse (Heart Rate) 82 /min [facility] 09-16-2017 01:07-0400 Pulse Oximetry 100 % [facility] 09-16-2017 01:07-0400 Respiratory Rate 16 /min [facility] 09-16-2017 01:07-0400 Weight 58.97 kg [facility] 09-06-2017 22:25-0400 BP Diastolic 68 mm[Hg] [facility]-06-2017 22:25-0400 BP Systolic 119 mm[Hg] [facility] 09-06-2017 22:25-0400 Pulse (Heart Rate) 93 /min [facility] 09-06-2017 22:25-0400 Pulse Oximetry 100 % Prabhakar Dials [facility] 09-06-2017 22:25-0400 Respiratory Rate 16 /min Prabhakar Dials [facility] 09-06-2017 20:24-0400 BMI (Body Mass Index) 25.78 kg/m2 [facility] 09-06-2017 20:24-0400 Body Temperature 98.2 [degF] Prabhakar Dials [facility] 09-06-2017 20:24-0400 Height 152.4 cm [facility] 09-06-2017 20:24-0400 Weight 59.88 kg [facility] 08-13-2017 16:54-0400 Body Temperature 98.6 [degF] Kina Smith [facility] 08-13-2017 16:54-0400 BP Diastolic 75 mm[Hg] Kina Smith [facility] 08-13-2017 16:54-0400 BP Systolic 122 mm[Hg] Kina Smith [facility] 08-13-2017 16:54-0400 Pulse (Heart Rate) 120 /min Kina Smith [facility] 08-13-2017 16:54-0400 Pulse Oximetry 99 % Kina Smith [facility] 08-13-2017 16:54-0400 Respiratory Rate 20 /min Kina [facility] 08-03-2017 18:14-0400 BP Diastolic 79 mm[Hg] [facility] 08-03-2017 18:14-0400 BP Systolic 124 mm[Hg] [facility] 08-03-2017 18:14-0400 Pulse (Heart Rate) 88 /min [facility] 08-03-2017 18:14-0400 Pulse Oximetry 100 % [facility] 08-03-2017 18:14-0400 Respiratory Rate 16 /min [facility] 08-03-2017 15:17-0400 BMI (Body Mass Index) 25.97 kg/m2 [facility] 08-03-2017 15:17-0400 Body Temperature 98.91 [degF] [facility] 08-03-2017 15:17-0400 Height 152.4 cm [facility] 08-03-2017 15:17-0400 Weight 60.33 kg [facility] 05-24-2017 22:45-0400 Pulse (Heart Rate) 94 /min [facility] 05-24-2017 21:28-0400 BMI (Body Mass Index) 27.67 kg/m2 [facility] 05-24-2017 21:28-0400 Body Temperature 98.2 [degF] [facility] 05-24-2017 21:28-0400 BP Diastolic 71 mm[Hg] [facility] 05-24-2017 21:28-0400 BP Systolic 130 mm[Hg] [facility] 05-24-2017 21:28-0400 Height 149.9 cm [facility] 05-24-2017 21:28-0400 Pulse Oximetry 100 % Antwan Yeung [facility] 05-24-2017 21:28-0400 Respiratory Rate 16 /min Antwan Yeung [facility] 05-24-2017 21:28-0400 Weight 62.14 kg Antwan Yeung [facility] 02-22-2017 19:36-0500 BMI (Body Mass Index) 28.28 kg/m2 Dharmesh Urbina [facility] Work Phone: 02-22-2017 19:36-0500 Body Temperature 98.1 [degF] Dharmesh Urbina [facility] Work Phone: 02-22-2017 19:36-0500 BP Diastolic 97 mm[Hg] Dharmesh Urbina [facility] Work Phone: 02-22-2017 19:36-0500 BP Systolic 137 mm[Hg] Dharmesh Dillrobi [facility] Work Phone: 02-22-2017 19:36-0500 Height 149.9 cm Dharmesh Urbina [facility] Work Phone: 02-22-2017 19:36-0500 Pulse (Heart Rate) 89 /min Dharmesh Urbina [facility] Work Phone: 02-22-2017 19:36-0500 Pulse Oximetry 99 % Dharmesh Urbina [facility] Work Phone: 02-22-2017 19:36-0500 Respiratory Rate 16 /min Dharmesh Urbina [facility] Work Phone: 02-22-2017 19:36-0500 Weight 63.5 kg Dharmesh Urbina [facility] Work Phone: Encounters Encounter Date Encounter Type Care Provider Facility Start: 07-25-2024 End: 07-25-2024 Office outpatient new 45 minutes 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: [facility] - Rocael Garcia Comment on above: Neck pain (Primary D x); Cervical radiculopathy; Cervical spondylosis; Lumbar pain Start: 07-25-2024 End: 07-25-2024 ambulatory NAT OCAMPO [facility] Start: 07-24-2024 End: 07-24-2024 Office outpatient new 30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 07-29-2022 Emergency department patient visit Dr. Tim Romero Facility:[id number] Start: 07-28-2022 End: 07-29-2022 Emergency department patient visit Dr. Tim Romero Facility:[id number] Start: 07-25-2022 End: 07-25-2022 Emergency department patient visit Dr. Renetta Watkins Facility:[id number] Start: 07-20-2022 End: 07-20-2022 Patient encounter procedure Srini Thomas PA-C Work Phone: [facility] Comment on above: Syncope, unspecified syncope type (Primary Dx) Start: 07-15-2022 End: 07-15-2022 Patient encounter procedure Madi Stuart MD Work Phone: Internal Medicine Comment on above: Tremors of nervous s ystem (Primary Dx); Encounter for immunization Start: 07-15-2022 End: 07-15-2022 Emergency department patient visit No Pcp Required [facility] Start: 07-15-2022 ambulatory Madi Stuart MD Work Phone: Internal Medicine Comment on above: Tremor; Neurologic P roblem Start: 07-08-2022 Telephone encounter Madi schulz MD Work Phone: Internal Medicine Comment on above: Results Start: 07-07-2022 Telephone encounter [facility] Franklin [facility] Comment on above: message to provider Start: 07-07-2022 End: 07-07-2022 Office outpatient visit 25 minutes Ana Brandt PA-C Work Phone: Internal Medicine Comment on above: Herpes simplex vulvo vaginitis (Primary Dx); UTI symptoms; Dizziness; Pituitary cyst (HCC) Start: 07-03-2022 End: 07-03-2022 Patient encounter procedure Kim Radford PA-C Work Phone: [facility] Comment on above: Multiple somatic com plaints (Primary Dx); Syncope, unspecified syncope type Start: 07-02-2022 Telephone encounter Haseeb green MD Work Phone: Obstetrics/Gynecology Comment on above: Nurse Triage Call Start: 06-30-2022 ambulatory Shara Nolen PharmD [facility] Start: 06-28-2022 End: 06-28-2022 Patient encounter procedure Haseeb Drake MD Work Phone: Obstetrics/Gynecology Comment on above: Dysuria (Primary Dx) Start: 06-18-2022 Telephone encounter [facility] Comment on above: Medication Problem Start: 06-17-2022 End: 06-17-2022 Patient encounter procedure Matthieu García MD Work Phone: Obstetrics/Gynecology Comment on above: Herpes simplex vulvo vaginitis (Primary Dx); Female fertility problems Start: 06-17-2022 Telephone encounter Kendall villegas APRN.GARAGE LABORER Work Phone: [facility] Comment on above: Medication Problem ( Flagyl 500 mg); Results Start: 06-16-2022 End: 06-16-2022 Patient encounter procedure Sherrell Jimenes APRN.GARAGE LABORER Work Phone: [facility] Comment on above: Labial lesion (Prima ry Dx); Contamination of urine culture; Itching in the vaginal area Start: 06-10-2022 Telephone encounter Kendall villegas APRN.GARAGE LABORER Work Phone: [facility] Comment on above: Results Start: 06-09-2022 End: 06-09-2022 Patient encounter procedure Luz Arboleda PA-C Work Phone: [facility] Comment on above: Screening for STD (s exually transmitted disease) (Primary Dx); Dysuria; Urinary tract infection with hematuria, site unspecified Start: 06-07-2022 Telephone encounter Lee HENAO Work Phone: Internal Medicine Comment on above: Results Start: 06-05-2022 ambulatory Sushma nunez RN NURSE BOW MAKER MACHINE TENDER Comment on above: Abdominal Pain Start: 06-04-2022 End: 06-04-2022 Patient encounter procedure Ana Davis APRN.GARAGE LABORER Work Phone: Internal Medicine [place] Comment on above: NO SHOW (Primary Dx) Start: 06-04-2022 End: 06-04-2022 Office outpatient visit 25 minutes Finn Elise PA-C Work Phone: Internal Medicine Comment on above: UTI symptoms (Primar y Dx); Possible exposure to STD; Encounter for test, result unknown Start: 06-04-2022 ambulatory Matilda Conde RN NURS E BOW MAKER MACHINE TENDER Comment on above: UTI Start: 05-26-2022 End: 05-26-2022 Emergency department patient visit [facility] 11 Start: 05-14-2022 End: 05-14-2022 Office outpatient new 45 minutes Finn Elise PA-C Work Phone: Internal Medicine Comment on above: Encounter for medica l examination to establish care (Primary Dx); Generalized abdominal pain; Special screening examination for viral disease; Screening for HIV (human immunodeficiency virus); B12 deficiency; Iron deficiency anemia, unspecified iron deficiency anemia type; Irritable bowel syndrome with constipation; Lumbar pain; Vitamin D deficiency Start: 05-14-2022 End: 05-14-2022 Patient encounter status Finn Elise PA-C Work Phone: Internal Medicine Start: 05-10-2022 Telephone encounter Matthieu García MD Work Phone: Obstetrics/Gynecology Comment on above: Results Start: 05-06-2022 End: 05-06-2022 Female genitalia finding Matthieu García MD Work Phone: Obstetrics/Gynecology Start: 05-06-2022 End: 05-06-2022 Patient encounter procedure Matthieu García MD Work Phone: Obstetrics/Gynecology Comment on above: Gynecologic exam nor mal (Primary Dx); Encounter for screening for malignant neoplasm of cervix Start: 04-17-2022 ambulatory Marsha crawley RN [facility] Comment on above: Local swelling/papul e/lump/mass Start: 04-13-2022 End: 04-13-2022 Emergency department patient visit [facility] Start: 04-11-2022 End: 04-11-2022 Emergency department patient visit Renetta Watkins [facility] 17 Start: 04-09-2022 Telephone encounter Trudi raygoza APRN.LAWANDA Work Phone: Obstetrics/Gynecology Comment on above: Results Start: 04-08-2022 ambulatory Dharmesh Torres RN NURSE BOW MAKER MACHINE TENDER Comment on above: Lab & Test Results Start: 04-06-2022 Patient encounter procedure Hilario Ayala [facility] [place] Start: 04-05-2022 End: 04-05-2022 Emergency department patient visit [facility] 21 Start: 04-05-2022 Telephone encounter Kina Fajardo RN [facility] Start: 04-02-2022 ambulatory Diane Jung RN NURSE BOW MAKER MACHINE TENDER Comment on above: Information Start: 03-29-2022 End: 03-30-2022 Emergency department patient visit [facility] 05 Start: 03-24-2022 End: 03-25-2022 Emergency department patient visit Dr. Tim Romero Facility:[id number] Start: 03-21-2022 End: 03-21-2022 [facility] Start: 03-21-2022 ambulatory Sasha CHAVES [employer]ACHINE TENDER Comment on above: Vomiting Start: 03-17-2022 Telephone encounter Trudi raygoza APRN.LAWANDA Work Phone: Obstetrics/Gynecology Comment on above: Patient Question Start: 03-06-2022 End: 03-06-2022 [facility] Start: 03-03-2022 End: 03-04-2022 Emergency department patient visit Sorin Shetty [facility] Start: 02-13-2022 ambulatory Jessica Jean RN NURS E BOW MAKER MACHINE TENDER Comment on above: Vaginal Bleeding Start: 01-21-2022 End: 01-21-2022 Emergency department patient visit Leila Patricketan [facility] [place] 09 Start: 01-21-2022 ambulatory Jorge L Saha RN NURSE BOW MAKER MACHINE TENDER Comment on above: Pain (Axilla/) Start: 01-10-2022 ambulatory Nat Jernigan RN N ANDIE [employer] MACHINE TENDER Comment on above: Dizziness Start: 12-29-2021 ambulatory Jessica Jean RN NURS E BOW MAKER MACHINE TENDER Comment on above: Dizziness Start: 11-14-2021 ambulatory Heidi Johnson RN NU RSE [employer]OW [employer] MACHINE TENDER Comment on above: Numbness/Tingling Start: 11-09-2021 Letter encounter Marianela mccall Start: 11-08-2021 ambulatory Shirin Suggs RN NURSE O N CALL Comment on above: Vaginal Problem (Lum p on side of the vaginal lip) Start: 11-07-2021 ambulatory India Hall RN NURSE BOW MAKER MACHINE TENDER Comment on above: Vaginal Problem Start: 11-05-2021 ambulatory Basia Little RN [facility] Comment on above: Abdominal Pain (Left side pain ) Start: 11-05-2021 Patient encounter procedure Basia Little RN NURSE BOW MAKER MACHINE TENDER Comment on above: Missed Appointment Start: 10-28-2021 ambulatory Telma Eldridge RN NURSE BOW MAKER MACHINE TENDER Comment on above: Hives Start: 10-28-2021 End: 10-28-2021 Manual pelvic examination Izzy Wiggins GUANAKO.[employer]ARAGE LABORER Work Phone: Internal Medicine [facility] Comment on above: Pelvic pain in femal e (Primary Dx) Start: 10-28-2021 End: 10-28-2021 Telemedicine consultation with patient Izzy Wiggins GUANAKO.GARAGE LABORER Work Phone: [facility] Start: 10-27-2021 End: 10-27-2021 Manual pelvic examination Reynaldo Ortega PA-C Work Phone: OB/Gynecology Comment on above: Pelvic pain in femal e (Primary Dx); Abnormal uterine bleeding (AUB) Start: 10-27-2021 End: 10-27-2021 Telemedicine consultation with patient Reynaldo Ortega PA-C Work Phone: [facility] Start: 10-26-2021 ambulatory Barbara Roberson RN NURSE BOW MAKER MACHINE TENDER Comment on above: Urinary Problem Start: 10-17-2021 End: 10-18-2021 Emergency department patient visit PHYSICIAN [facility] Start: 10-08-2021 Telephone encounter Heidi Lacey RN [facility] Comment on above: return pt call Start: 10-05-2021 End: 10-05-2021 Emergency department patient visit Hanane Tomas MD Work Phone: [facility] Comment on above: 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); Acute cystitis with hematuria Start: 10-05-2021 End: 10-05-2021 Evaluation and management of inpatient Hanane Tomas MD Work Phone: [facility] Start: 10-04-2021 End: 10-04-2021 Emergency department patient visit Basia Tristan DO Work Phone: [facility] Start: 10-04-2021 End: 10-04-2021 Evaluation and management of inpatient Basia Tristan DO Work Phone: [facility] Start: 10-02-2021 End: 10-02-2021 Emergency department patient visit Basia Tristan DO Work Phone: [facility] Comment on above: Acute cystitis witho ut hematuria (Primary Dx) Start: 10-02-2021 End: 10-02-2021 Evaluation and management of inpatient Basia Tristan DO Work Phone: [facility] Start: 09-20-2021 End: 09-20-2021 Emergency department patient visit Basia Tristan DO Work Phone: [facility] Comment on above: Lightheadedness (Fernanda coats Dx); Marijuana use Start: 09-20-2021 End: 09-20-2021 Evaluation and management of inpatient Basia Caceresabi DO Work Phone: [facility] Start: 09-10-2021 End: 09-10-2021 Emergency department patient visit Baisa Tristan DO Work Phone: [facility] Start: 09-10-2021 End: 09-10-2021 Evaluation and management of inpatient Basia Zarrabi DO Work Phone: [facility] Start: 09-09-2021 End: 09-09-2021 Emergency department patient visit KYLE SHANE [facility] Start: 09-09-2021 Telephone encounter Nallely Lazaro [facility] Comment on above: Amenorrhea Start: 09-08-2021 Telephone encounter Basiabrenda mathew DO Work Phone: [facility] [place] Start: 09-04-2021 End: 09-04-2021 Emergency department patient visit RADHA DORAN [facility] Start: 09-03-2021 End: 09-03-2021 ambulatory BASIA TRISTAN [facility] Start: 09-03-2021 Telephone encounter Shaniqua Cash MA [facility] [place] Start: 09-02-2021 End: 09-03-2021 ambulatory MIKE MUSTAFA [facility] Start: 09-01-2021 End: 09-01-2021 Emergency department patient visit PHYSICIAN [facility] Start: 08-29-2021 End: 08-30-2021 ambulatory PHYSICIAN NO [facility] Start: 08-28-2021 End: 08-28-2021 Emergency department patient visit PHYSICIAN NO [facility] Start: 08-28-2021 ambulatory TOSHA S [place] Facility:[facility] Start: 08-27-2021 Telephone encounter Shaniqua Cash MA [facility] [place] Comment on above: Blood Sugar Problem Start: 08-27-2021 End: 08-27-2021 Emergency department patient visit Basiabrenda Caceresabi DO Work Phone: [facility] Comment on above: Chest pain, unspecif ied type (Primary Dx) Start: 08-27-2021 End: 08-27-2021 Evaluation and management of inpatient Basia Morrisabi DO Work Phone: [facility] Start: 08-26-2021 End: 08-26-2021 ambulatory PHYSICIAN NO [facility] Start: 08-25-2021 End: 08-25-2021 Orders Only Deepthi Dykes RN [facility] Comment on above: Chest pain, unspecif ied type (Primary Dx) Start: 08-25-2021 End: 08-25-2021 Office outpatient visit 15 minutes Basiabrenda Caceresabi DO Work Phone: [facility] [place] Comment on above: Missed period (Prima ry Dx); Abnormal finding on EKG; Palpitations Start: 08-25-2021 End: 08-25-2021 Telemedicine consultation with patient Basia Morrisabi DO Work Phone: [facility] [place] Start: 08-25-2021 End: 08-25-2021 Emergency department patient visit Basiabrenda Caceresabi DO Work Phone: [facility] Start: 08-25-2021 End: 08-25-2021 Evaluation and management of inpatient Basia Zarrabi DO Work Phone: [facility] Start: 08-24-2021 ambulatory PHYSICIAN NO [facility] Start: 08-19-2021 End: 08-20-2021 Emergency department patient visit PHYSICIAN NO [facility] Start: 08-19-2021 End: 08-19-2021 Emergency department patient visit PHYSICIAN NO [facility] Start: 08-17-2021 Telephone encounter Basia mathew DO Work Phone: [facility] [place] Start: 08-17-2021 End: 08-17-2021 Emergency department patient visit Basia Morrisabi DO Work Phone: [facility] Start: 08-17-2021 End: 08-17-2021 Evaluation and management of inpatient Basia Zarrabi DO Work Phone: [facility] Start: 08-14-2021 End: 08-14-2021 Emergency department patient visit Basia Tristan DO Work Phone: [facility] Start: 08-14-2021 End: 08-14-2021 Evaluation and management of inpatient Basia Tristan DO Work Phone: [facility] Start: 08-10-2021 Telephone encounter Basia mathew DO Work Phone: [facility] [place] Comment on above: BEHAVIORAL HEALTH THERAPIST appointment Start: 08-05-2021 Telephone [facility] Comment on above: no reason Vaginitis/Bacterial Vaginosis Start: 07-31-2021 End: 07-31-2021 Emergency department patient visit Vaughn Montgomery MD Work Phone: [facility] Comment on above: Generalized abdomina l pain (Primary Dx); Nausea and vomiting, unspecified vomiting type; Late period Start: 07-31-2021 End: 07-31-2021 Evaluation and management of inpatient Vaughn Montgomery MD Work Phone: [facility] Start: 07-30-2021 End: 07-30-2021 Emergency department patient visit PHYSICIAN [facility] Start: 07-22-2021 Telephone encounter Shaniqua [place] Start: 07-20-2021 Telephone encounter Shaniqua [place] Comment on above: Lab Results Start: 07-20-2021 End: 07-20-2021 ambulatory BASIA CLEO [facility] Start: 07-20-2021 End: 07-20-2021 Office outpatient visit 15 minutes Basiabrenda Caceresabi DO Work Phone: [place] Comment on above: Paresthesia (Primary Dx); Irregular periods; Pituitary cyst (CMS/HCC) Start: 07-20-2021 End: 07-20-2021 Patient encounter procedure Basia Morrisabi DO Work Phone: [facility] [place] Start: 07-15-2021 Telephone encounter Lon Muse N [facility] Start: 07-01-2021 Telephone encounter Mirian Daniele R N [facility] Comment on above: Metrorrhagia Start: 06-30-2021 Telephone encounter Ophelia Sinclair RN [facility] Comment on above: Appointment Start: 06-05-2021 Telephone encounter Chrissy Diaz PT [facility] Start: 06-05-2021 End: 06-05-2021 Emergency department patient visit Maria Jordan MD Work Phone: [facility] Comment on above: Generalized abdomina l pain (Primary Dx) Start: 06-05-2021 End: 06-05-2021 Evaluation and management of inpatient Maria Jordan MD Work Phone: [facility] Start: 06-04-2021 End: 06-04-2021 Emergency department patient visit Reanna Lakeisha DO Work Phone: [facility] Comment on above: Constipation, unspec ified constipation type (Primary Dx); Acute cystitis with hematuria Start: 06-04-2021 End: 06-04-2021 Evaluation and management of inpatient Reanna Huynhyue DO Work Phone: [facility] Start: 06-04-2021 Telephone encounter Shanon Camargo LPN [facility] [place] 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 Start: 06-03-2021 Telephone encounter Shanon Camargo LPN [facility] [place] Comment on above: GI issues Start: 06-02-2021 End: 06-02-2021 Emergency department patient visit SLICK MCCLELLAND Facility:[facility] Start: 06-01-2021 End: 06-01-2021 Emergency department patient visit Alex Fagan MD Work Phone: [facility] Start: 06-01-2021 Telephone encounter Basia mathew DO Work Phone: [facility] [place] Start: 06-01-2021 End: 06-01-2021 ambulatory BASIA TRISTAN [facility] Start: 05-28-2021 Telephone encounter Jayesh Miller RN [facility] Comment on above: Vaginal Discharge Start: 05-26-2021 End: 05-26-2021 Emergency department patient visit Matilda Christine DO Work Phone: [facility] Comment on above: History of syncope ( Primary Dx); Headache in front of head; Vaginal itching Start: 05-26-2021 End: 05-26-2021 Evaluation and management of inpatient Matilda Christine DO Work Phone: [facility] Start: 05-25-2021 End: 05-25-2021 Clinical Support Roxy Perez Md [facility] Start: 05-25-2021 End: 05-25-2021 Office outpatient visit 15 minutes Roxy Walker [facility] Comment on above: Menstrual irregulari ty (Primary Dx); Pelvic floor dysfunction Start: 05-24-2021 End: 05-24-2021 Emergency department patient visit [facility] Start: 05-22-2021 End: 05-23-2021 Emergency department patient visit PHYSICIAN [facility] Start: 05-22-2021 End: 05-22-2021 ambulatory MERCEDEZ COTTO [facility] Start: 05-22-2021 End: 05-22-2021 Office outpatient new 30 minutes Dipti Cota PA-C Work Phone: [facility] [place] Comment on above: Dysuria (Primary Dx) ; Vomiting, intractability of vomiting not specified, presence of nausea not specified, unspecified vomiting type Start: 04-22-2021 ambulatory BASIA TRISTAN [facility] Start: 04-21-2021 End: 04-21-2021 ambulatory BASIA TRISTAN [facility] Start: 04-20-2021 ambulatory REANNA Julien OLGA Oliveira y:[facility] Start: 02-01-2021 Documentation procedure Estrellita Irvin MD [facility] Start: 01-30-2021 End: 01-30-2021 Emergency department patient visit DHARMESH VICTOR Facility:[facility] Start: 01-27-2021 End: 01-27-2021 Emergency department patient visit SURESH DOVE Facility:[facility] Start: 01-27-2021 Documentation procedure Estrellita Irvin MD Work Phone: [facility] Start: 01-06-2021 ambulatory FAISAL Watt ty:[facility] Start: 10-09-2020 ambulatory [facility] Facility:[facility] Start: 10-07-2020 ambulatory [facility] Facility:[facility] Start: 08-26-2020 End: 08-26-2020 Emergency department patient visit Dharmesh Urbina DO Work Phone: [facility] Emergency [facility] Start: 08-22-2020 End: 08-23-2020 Emergency department patient visit Cory Patel MD Work Phone: [facility] Emergency Department Start: 08-20-2020 End: 08-20-2020 Orders Only Adamaris Landry RN [facility] Comment on above: Left flank pain (Fernanda jorge l Dx) Start: 08-09-2020 End: 08-09-2020 Emergency department patient visit Jakub Marvin Griffin DO Work Phone: [place] [facility] Start: 08-03-2020 End: 08-03-2020 Emergency department patient visit Paddy Castorena DO Work Phone: [facility] [place] [id number] Start: 07-19-2020 End: 07-19-2020 Documentation procedure Kyle Irvin MD Work Phone: [facility] Start: 07-17-2020 End: 07-17-2020 Emergency department patient visit Coni Anguiano MD Work Phone: [facility] Emergency Department Start: 07-08-2020 End: 07-08-2020 Subsequent hospital visit by physician Giuliana Payan CNP Work Phone: [facility] Comment on above: Arrived Start: 07-03-2020 End: 07-04-2020 Emergency department patient visit Nathan Lidialuis Amin DO Work Phone: [facility] Medical Observation Start: 06-07-2020 End: 06-07-2020 Emergency department patient visit Dylan Russo Work Phone: [facility] Emergency Department Start: 05-13-2020 End: 05-13-2020 Emergency department patient visit Dylan Chan Work Phone: [facility] Emergency Department Start: 04-26-2020 End: 04-26-2020 Emergency department patient visit Ankur Pichardo Work Phone: [facility] Emergency Department Comment on above: Nausea (Primary Dx); Vaginal pain Start: 04-26-2020 End: 04-26-2020 Documentation procedure Yan Zuñiga Work Phone: [facility] Start: 04-06-2020 End: 04-06-2020 Emergency department patient visit Afshan Rivera Work Phone: [facility] Emergency Department Comment on above: COVID-19 virus detec fransico (Primary Dx); Flank pain; Hematuria, unspecified type; Non-intractable vomiting with nausea, unspecified vomiting type Start: 02-08-2020 End: 02-08-2020 Emergency department patient visit Giovanni Gonzáles Work Phone: [facility] Emergency Department Comment on above: Fall, initial encoun ter (Primary Dx); Contusion of left chest wall, initial encounter; Flank pain; Closed head injury, initial encounter Start: 02-04-2020 End: 02-04-2020 Emergency department patient visit Apolonia Anne Work Phone: [facility] Emergency Department Comment on above: Left lower quadrant abdominal pain (Primary Dx) Start: 01-29-2020 End: 01-29-2020 Emergency department patient visit Giovanni Gonzáles Work Phone: [facility] Emergency Department Comment on above: Rectal pain (Primary Dx); Constipation, unspecified constipation type Start: 01-22-2020 End: 01-23-2020 Emergency department patient visit Mariaelena Spencer Work Phone: [facility] Emergency Department Comment on above: Right low back pain, unspecified chronicity, unspecified whether sciatica present (Primary Dx) Start: 01-22-2020 End: 01-22-2020 Documentation procedure Kyle Irvin Work Phone: [facility] Start: 01-14-2020 End: 01-15-2020 Emergency department patient visit Jakub Stone Work Phone: [facility] Emergency Department Comment on above: Right flank pain (Pr imary Dx); Abdominal pain, unspecified abdominal location; Constipation, unspecified constipation type Start: 12-14-2019 End: 12-15-2019 Emergency department patient visit Nathan Latham Work Phone: [facility] Emergency Department Comment on above: Right flank pain (Pr imary Dx); Nausea and vomiting, intractability of vomiting not specified, unspecified vomiting type; Hematuria, unspecified type Start: 12-05-2019 End: 12-07-2019 Emergency department patient visit Slick Whelan Work Phone: [facility] Comment on above: Nephrolithiasis (Fernanda jorge l Dx); Flank pain; Intractable vomiting with nausea, unspecified vomiting type; Depressive disorder Start: 11-28-2019 End: 11-29-2019 Emergency department patient visit Dylan Russo Work Phone: [facility] Emergency Department Comment on above: Nausea and vomiting, intractability of vomiting not specified, unspecified vomiting type (Primary Dx); Flank pain; Bacterial vaginosis Start: 11-28-2019 End: 11-28-2019 Documentation procedure Jad Hollins Work Phone: [facility] Start: 11-25-2019 End: 11-25-2019 Emergency department patient visit Alhaji Valenzuela Work Phone: [facility] Emergency Department Comment on above: Abdominal pain, unsp ecified abdominal location (Primary Dx); Flank pain; Urinary retention; External hemorrhoid Start: 11-22-2019 End: 11-22-2019 Documentation procedure Adamaris Landry [facility] Start: 11-21-2019 End: 11-21-2019 Emergency department patient visit Mikal Telma York Work Phone: [facility] Emergency Department Comment on above: Encounter for Reaves catheter removal (Primary Dx); Bladder spasms Start: 11-21-2019 End: 11-21-2019 Documentation procedure Tyrell Loco Work Phone: [facility] Start: 11-20-2019 End: 11-20-2019 Office outpatient visit 15 minutes Yan Zuñiga Work Phone: [facility] Comment on above: Urinary retention (P rimary Dx); Acute cystitis without hematuria Start: 11-17-2019 End: 11-19-2019 Emergency department patient visit Manan Sullivan Les Work Phone: [facility] Comment on above: Vomiting, intractabi lity of vomiting not specified, presence of nausea not specified, unspecified vomiting type (Primary Dx); Acute UTI; Acute pyelonephritis Start: 11-17-2019 End: 11-17-2019 Documentation procedure Kyle Irvin Work Phone: [facility] Start: 11-16-2019 End: 11-16-2019 Documentation procedure Kyle Irvin Work Phone: [facility] Start: 11-14-2019 End: 11-14-2019 Emergency department patient visit Slick Whelan Work Phone: [facility] Emergency Department Comment on above: Irritation of urethr a (Primary Dx) Start: 11-14-2019 End: 11-14-2019 Documentation procedure Kyle Irvin Work Phone: [facility] Start: 11-11-2019 End: 11-11-2019 Emergency department patient visit Antwan Yadira Yeung Work Phone: [facility] Emergency Department Comment on above: Problem with Reaves c atheter, initial encounter (HCC) (Primary Dx) Start: 11-09-2019 End: 11-09-2019 Clinical Support Adamaris Landry [facility] Start: 11-07-2019 End: 11-07-2019 Emergency department patient visit Eben Rios Work Phone: [facility] Emergency Department Comment on above: Unspecified conditio n associated with female genital organs and menstrual cycle (Primary Dx) Start: 11-06-2019 End: 11-06-2019 Office outpatient visit 15 minutes Yan Zuñiga Work Phone: [facility] Comment on above: Urinary retention (P rimary Dx) Start: 2019 End: 11-05-2019 Evaluation and management of inpatient Honorio Tony Fernandez Jalloh Work Phone: [facility] Medical Unit 3 Comment on above: Abdominal pain, unsp ecified abdominal location (Primary Dx); Nausea and vomiting, intractability of vomiting not specified, unspecified vomiting type; Abnormal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 Lipase [Enzymatic activity/volume] in Serum or Plasma Dylan Chan Work Phone: Start: 05-13-2020 PINK TOP Dylan Chan Work Phone: Start: 05-13-2020 RAINBOW DRAW Dylan Chan Work Phone: Start: 04-26-2020 [place] [facility] Ankur Pichardo Work Phone: Start: 04-26-2020 LAVENDER TOP Ankur Pichardo Work Phone: Start: 04-26-2020 LIGHT BLUE TOP Ankur Pichardo Work Phone: Start: 04-26-2020 LIGHT GREEN TOP Ankur Pichardo Work Phone: Start: 04-26-2020 MINT GREEN TOP Ankur Pichardo Work Phone: Start: 04-26-2020 PINK TOP Ankur Pichardo Work Phone: Start: 04-26-2020 RAINBOW DRAW Ankur Pichardo Work Phone: Start: 04-06-2020 CT of urinary tract Juan M manolo Younger Work Phone: Start: 04-06-2020 COVID-19/INFLUENZA A ,B MOLECULAR Afshan Rivera Work Phone: Start: 04-06-2020 End: 04-06-2020 Bacteria identified in Blood by Culture Loretta Younger Work Phone: Start: 04-06-2020 Basic metabolic 2000 panel - Serum or Plasma Loretta Younger Work Phone: Start: 04-06-2020 Choriogonadotropin.b eta subunit ( test) [Presence] in Serum or Plasma Loretta Younger Work Phone: Start: 04-06-2020 Complete blood count with white cell differential, automated Loretta Younger Work Phone: Start: 04-06-2020 Complete blood count with white cell differential, manual Loretta Younger Work Phone: Start: 04-06-2020 Hepatic function 200 0 panel - Serum or Plasma Loretta Younger Work Phone: Start: 04-06-2020 Lactate [Moles/volum e] in Serum or Plasma Loretta Younger Work Phone: Start: 04-06-2020 LIGHT BLUE TOP Afshan Trujillo n Miguel Work Phone: Start: 04-06-2020 LIGHT GREEN TOP Afshan Oconnell nn Miguel Work Phone: Start: 04-06-2020 Lipase [Enzymatic activity/volume] in Serum or Plasma Loretta Younger Work Phone: Start: 04-06-2020 PINK TOP Afshan Rivera Work Phone: Start: 04-06-2020 RAINBOW DRAW Afshan Rivera Work Phone: Start: 04-06-2020 Urinalysis Loretta dumont Work Phone: Start: 02-08-2020 CT of neck, thorax, abdomen and pelvis Giovanni Gonzáles Work Phone: Start: 02-08-2020 Choriogonadotropin ( test) [Presence] in Urine Giovanni Gonzáles Work Phone: Start: 02-08-2020 Basic metabolic 2000 panel - Serum or Plasma Giovanni Gonzáles Work Phone: Start: 02-08-2020 Complete blood count with white cell differential, automated Giovanni Gonzáles Work Phone: Start: 02-08-2020 Complete blood count with white cell differential, manual Giovanni Gonzáles Work Phone: Start: 02-08-2020 [place] TOP Giovanni Gonzáles Work Phone: Start: 02-08-2020 LAVENDER TOP Giovanni Gonzáles Work Phone: Start: 02-08-2020 LIGHT BLUE TOP Giovanni Gonzáles Work Phone: Start: 02-08-2020 LIGHT GREEN TOP Giovanni Gonzáles Work Phone: Start: 02-08-2020 MINT GREEN TOP Giovanni Gonzáles Work Phone: Start: 02-08-2020 RAINBOW DRAW Giovanni Gonzáles Work Phone: Start: 02-08-2020 Urinalysis Giovanni Gonzáles Work Phone: Start: 02-04-2020 [place] TOP Apolonia S. K irch Work Phone: Start: 02-04-2020 LAVENDER TOP Apolonia S. K irch Work Phone: Start: 02-04-2020 LIGHT BLUE TOP Apolonia S. Kirch Work Phone: Start: 02-04-2020 LIGHT GREEN TOP Apolonia S . Kirch Work Phone: Start: 02-04-2020 MINT GREEN TOP Apolonia S. Kirch Work Phone: Start: 02-04-2020 PINK TOP Apolonia S. K irch Work Phone: Start: 02-04-2020 RAINBOW DRAW Apolonia S. K irch Work Phone: Start: 01-29-2020 Choriogonadotropin ( test) [Presence] in Urine Thanh Morris Work Phone: Start: 01-29-2020 Urinalysis Thanh Morris Work Phone: Start: 01-29-2020 Radiography of vtuuuw-qrrfot-uguxaet Thanh Morris Work Phone: Start: 01-29-2020 Basic metabolic 1998 panel - Serum or Plasma Thanh Morris Work Phone: Start: 01-29-2020 Complete blood count with white cell differential, automated Thanh Morris Work Phone: Start: 01-29-2020 Complete blood count with white cell differential, manual Thanh Morris Work Phone: Start: 01-29-2020 Hepatic function 200 0 panel - Serum or Plasma Thanh Morris Work Phone: Start: 01-29-2020 LAVENDER TOP Giovanni Gonzáles Work Phone: Start: 01-29-2020 LIGHT BLUE TOP Giovanni Gonzáles Work Phone: Start: 01-29-2020 LIGHT GREEN TOP Giovanni Gonzáles Work Phone: Start: 01-29-2020 Lipase [Enzymatic activity/volume] in Serum or Plasma Thanh Morris Work Phone: Start: 01-29-2020 MINT GREEN TOP Giovanni Gonzáles Work Phone: Start: 01-29-2020 RAINBOW DRAW Giovanni Gonzáles Work Phone: Start: 01-29-2020 Anoscopy Thanh olivo Sonnyrobi Work Phone: Start: 01-23-2020 Urinalysis Thanh Morris Work Phone: Start: 01-23-2020 Radiography of thaciz-smjufd-ikyhmxr Thanh Taylorherminiorobi Work Phone: Start: 01-23-2020 Basic metabolic 1998 panel - Serum or Plasma Thanh Morris Work Phone: Start: 01-23-2020 LIGHT BLUE TOP Mariaelena H usam Johanna Work Phone: Start: 01-23-2020 LIGHT GREEN TOP Mariaelena Pinedaam Johanna Work Phone: Start: 01-23-2020 Complete blood count with white cell differential, automated Thanh Taylorherminiorobi Work Phone: Start: 01-23-2020 Complete blood count with white cell differential, manual Thanh Morris Work Phone: Start: 01-23-2020 [place] TOP Mariaelena Pineda am Johanna Work Phone: Start: 01-23-2020 PINK TOP Mariaelena Spencer Work Phone: Start: 01-23-2020 RAINBOW DRAW Mariaelena Spencer Work Phone: Start: 01-15-2020 CT of urinary tract Tresa Layne Work Phone: Start: 01-14-2020 Choriogonadotropin ( test) [Presence] in Urine Jakub Stone Work Phone: Start: 01-14-2020 Urinalysis Jakub Fink en Rimer Work Phone: Start: 01-14-2020 Basic metabolic 1998 panel - Serum or Plasma Jakub Stone Work Phone: Start: 01-14-2020 Complete blood count with white cell differential, automated Jakub Stone Work Phone: Start: 01-14-2020 Complete blood count with white cell differential, manual Jakub Stone Work Phone: Start: 01-14-2020 [place] TOP Jakub Fink en Rimer Work Phone: Start: 01-14-2020 Hepatic function 200 0 panel - Serum or Plasma Augusto Layne Work Phone: Start: 01-14-2020 LIGHT BLUE TOP Jakub Stone Work Phone: Start: 01-14-2020 LIGHT GREEN TOP Jakub Stone Work Phone: Start: 01-14-2020 Lipase [Enzymatic activity/volume] in Serum or Plasma Augusto Layne Work Phone: Start: 01-14-2020 PINK TOP Jakub All en Rimer Work Phone: Start: 01-14-2020 RAINBOW DRAW Jakub All en Rimer Work Phone: Start: 12-15-2019 12 lead ECG Marichelle T Uy Work Phone: Start: 12-14-2019 Basic metabolic 1998 panel - Serum or Plasma Marichelle T Uy Work Phone: Start: 12-14-2019 Choriogonadotropin ( test) [Presence] in Urine Florin Nuñez Work Phone: Start: 12-14-2019 Complete blood count with white cell differential, automated Florin Nuñez Work Phone: Start: 12-14-2019 Complete blood count with white cell differential, manual Florin Nuñez Work Phone: Start: 12-14-2019 [facility] TOP Triage [facility] Start: 12-14-2019 Hepatic function 200 0 panel - Serum or Plasma Florin Nuñez Work Phone: Start: 12-14-2019 LAVENDER TOP Triage [facility] Start: 12-14-2019 LIGHT BLUE TOP Triage P [facility] Start: 12-14-2019 LIGHT GREEN TOP Triage Protocol [facility] Start: 12-14-2019 Lipase [Enzymatic activity/volume] in Serum or Plasma Florin Nuñez Work Phone: Start: 12-14-2019 MINT GREEN TOP Triage P [facility] Start: 12-14-2019 PINK TOP Triage [facility] Start: 12-14-2019 RAINBOW DRAW Triage [facility] Start: 12-14-2019 Urinalysis Florin Nuñez Work Phone: Start: 12-14-2019 URINE CONTAINER Triage Protocol [facility] Start: 12-06-2019 Bacteria identified in Unspecified specimen by Aerobe culture Florinda Huang Hendley Work Phone: Start: 12-06-2019 Basic metabolic 2000 panel - Serum or Plasma Monica Silva Work Phone: Start: 12-06-2019 Complete blood count (hemogram) panel - Blood by Automated count Monica Silva Work Phone: Start: 12-05-2019 Ultrasonography of retroperitoneum Thanh Morris Work Phone: Start: 12-05-2019 COVID-19, MOLECULAR Mat malissa Whelan Work Phone: Start: 12-05-2019 Urinalysis Slick auguste Work Phone: Start: 12-05-2019 Basic metabolic 1998 panel - Serum or Plasma Slick Whelan Work Phone: Start: 12-05-2019 Complete blood count with white cell differential, automated Slick Whelan Work Phone: Start: 12-05-2019 Complete blood count with white cell differential, manual Slick Whelan Work Phone: Start: 12-05-2019 [place] TOP Slick auguste Work Phone: Start: 12-05-2019 LIGHT BLUE TOP Slick Whelan Work Phone: Start: 12-05-2019 LIGHT GREEN TOP Slick Whelan Work Phone: Start: 12-05-2019 PINK TOP Slick auguste Work Phone: Start: 12-05-2019 RAINBOW DRAW Slick auguste Work Phone: Start: 11-28-2019 CT of urinary tract Jane miguel angel Springer Work Phone: Start: 11-28-2019 Cast care: wet Latasha Springer Work Phone: Start: 11-28-2019 Choriogonadotropin ( test) [Presence] in Urine Dylan Russo Work Phone: Start: 11-28-2019 Urinalysis Dylan Russo Work Phone: Start: 11-28-2019 LIGHT BLUE TOP Dylan Chava Russo Work Phone: Start: 11-28-2019 Basic metabolic 1998 panel - Serum or Plasma Dylan Russo Work Phone: Start: 11-28-2019 Complete blood count with white cell differential, automated Dylan Russo Work Phone: Start: 11-28-2019 Complete blood count with white cell differential, manual Dylan Russo Work Phone: Start: 11-28-2019 [place] TOP Dylan Scot t Karan Work Phone: Start: 11-28-2019 LAVENDER TOP Dylan Scot t Karan Work Phone: Start: 11-28-2019 LIGHT GREEN TOP Dylan kimbrough Karan Work Phone: Start: 11-28-2019 MINT GREEN TOP Dylan auguste Karan Work Phone: Start: 11-28-2019 PINK TOP Dylan Scot t Karan Work Phone: Start: 11-28-2019 RAINBOW DRAW Dylan Scot t Karan Work Phone: Start: 11-25-2019 Choriogonadotropin ( test) [Presence] in Urine Ayana Leonard Work Phone: Start: 11-25-2019 Urinalysis Ayana Dumont Work Phone: Start: 11-25-2019 Basic metabolic 2000 panel - Serum or Plasma Ayana Leonard Work Phone: Start: 11-25-2019 Complete blood count with white cell differential, automated Ayana Leonard Work Phone: Start: 11-25-2019 Complete blood count with white cell differential, manual Ayana Leonard Work Phone: Start: 11-25-2019 [place] TOP Fernie r Mustapha Nicolas Work Phone: Start: 11-25-2019 LIGHT BLUE TOP Christop her Mustapha Nicolas Work Phone: Start: 11-25-2019 LIGHT GREEN TOP Mo pher Mustapha Nicolas Work Phone: Start: 11-25-2019 PINK TOP Fernie r Mustapha Nicolas Work Phone: Start: 11-25-2019 RAINBOW DRAW Fernie r Mustapha Nicolas Work Phone: Start: 11-18-2019 Basic metabolic 2000 panel - Serum or Plasma Kaern Leon Work Phone: Start: 11-18-2019 Complete blood count (hemogram) panel - Blood by Automated count Karen Leon Work Phone: Start: 11-17-2019 COVID-19, MOLECULAR Rogelio valerie [employer] Work Phone: Start: 11-17-2019 Bacteria identified in Unspecified specimen by Aerobe culture Manan Saldana Work Phone: Start: 11-17-2019 Urinalysis Manan emery [employer] Work Phone: Start: 11-17-2019 12 lead ECG Manan emery [employer] Work Phone: Start: 11-17-2019 Ct abdomen & pelvis w/contrast material Manan Saldana Work Phone: Start: 11-17-2019 End: 11-17-2019 Bacteria identified in Blood by Culture Manan Saldana Work Phone: Start: 11-17-2019 Radiologic exam ches t single view Manan Saldana Work Phone: Start: 11-17-2019 Basic metabolic 2000 panel - Serum or Plasma Manan AngelMOOVIA Work Phone: Start: 11-17-2019 Choriogonadotropin.b eta subunit ( test) [Presence] in Serum or Plasma Manan AngelMOOVIA Work Phone: Start: 11-17-2019 Complete blood count with white cell differential, automated Manan Saldana Work Phone: Start: 11-17-2019 Complete blood count with white cell differential, manual Manan AngelMOOVIA Work Phone: Start: 11-17-2019 [place] TOP Manan emery [employer] Work Phone: Start: 11-17-2019 Hepatic function 200 0 panel - Serum or Plasma Manan AngelMOOVIA Work Phone: Start: 11-17-2019 Lactate [Moles/volum e] in Serum or Plasma Manan AngelMOOVIA Work Phone: Start: 11-17-2019 LAVENDER TOP Manan Mckeon sell Sont[employer] Work Phone: Start: 11-17-2019 LIGHT BLUE TOP Manan arnold Sontag Work Phone: Start: 11-17-2019 LIGHT GREEN TOP Manan Sullivan [place] Work Phone: Start: 11-17-2019 Lipase [Enzymatic activity/volume] in Serum or Plasma Manan Sullivan [place] Work Phone: Start: 11-17-2019 MINT GREEN TOP Manan arnold S[place]ag Work Phone: Start: 11-17-2019 PINK TOP Manan Mckeon [employer] Work Phone: Start: 11-17-2019 RAINBOW DRAW Manan Mckeon [employer] Work Phone: Start: 11-06-2019 MEASURE POST VOID RESIDUAL Yan Zuñiga Work Phone: Start: 11-05-2019 Basic metabolic 2000 panel - Serum or Plasma Emery Mena Work Phone: Start: 11-05-2019 Complete blood count (hemogram) panel - Blood by Automated count Emery Mena Work Phone: Start: 2019 Drugs of abuse urine screening test Emery Mena Work Phone: Start: 2019 Urinalysis Honorio Jalloh Work Phone: Start: 2019 Basic metabolic 2000 panel - Serum or Plasma Honorio Jalloh Work Phone: Start: 2019 Choriogonadotropin.b eta subunit ( test) [Presence] in Serum or Plasma Honorio Jalloh Work Phone: Start: 2019 Complete blood count with white cell differential, automated Honorio Jalloh Work Phone: Start: 2019 Complete blood count with white cell differential, manual Honorio Jalloh Work Phone: Start: 2019 R[place] TOP Honorio Jalloh Work Phone: Start: 2019 LIGHT BLUE TOP Honorio Jalloh Work Phone: Start: 2019 LIGHT GREEN TOP Honorio Jalloh Work Phone: Start: 2019 PINK TOP Honorio Jalloh Work Phone: Start: 2019 RAINBOW DRAW Honorio Jalloh Work Phone: Start: 2019 Ct abdomen & pelvis w/contrast material Emery Mena Work Phone: Start: 11-03-2019 Choriogonadotropin ( test) [Presence] in Urine Dharmesh Avery Work Phone: Start: 11-03-2019 Urinalysis Dharmesh Tam her Work Phone: Start: 11-03-2019 Radiography of wydadg-[id number]-qllwqgq Dharmesh Avery Work Phone: Start: 11-03-2019 Basic metabolic 2000 panel - Serum or Plasma Dharmesh Avery Work Phone: Start: 11-03-2019 Complete blood count with white cell differential, automated Dharmesh Avery Work Phone: Start: 11-03-2019 Complete blood count with white cell differential, manual Dharmesh Gena Work Phone: Start: 11-03-2019 [place] TOP Dharmesh Tam her Work Phone: Start: 11-03-2019 LIGHT BLUE TOP Dharmesh Darin parker Work Phone: Start: 11-03-2019 LIGHT GREEN TOP Dharmesh kerr Work Phone: Start: 11-03-2019 PINK TOP Dharmesh Tam her Work Phone: Start: 11-03-2019 RAINBOW DRAW Dharmesh Tam her Work Phone: Start: 11-02-2019 Comprehensive metabo lic 2000 panel - Serum or Plasma Corrine Melendezshamar Work Phone: Start: 11-02-2019 Adult depression scr eening assessment Kyle Irvin MD Work Phone: Start: 11-01-2019 Glucose [Mass/volume ] in Blood Morena Loomis Work Phone: Start: 11-01-2019 COVID-19, MOLECULAR Kelly Dawson Work Phone: Start: 11-01-2019 Basic metabolic 2000 panel - Serum or Plasma Venecia Dawson Work Phone: Start: 11-01-2019 Complete blood count with white cell differential, automated Venecia Dawson Work Phone: Start: 11-01-2019 Complete blood count with white cell differential, manual Venecia Dawson Work Phone: Start: 11-01-2019 R[place] TOP Kina Sutt on Fiers Work Phone: Start: 11-01-2019 LIGHT BLUE TOP Kina Ogden tton [email or web address] Work Phone: Start: 11-01-2019 LIGHT GREEN TOP Kina S utton [employer] Work Phone: Start: 11-01-2019 PINK TOP Kina Sutt on Fiers Work Phone: Start: 11-01-2019 Choriogonadotropin ( test) [Presence] in Urine Venecia Dawson Work Phone: Start: 11-01-2019 RAINBOW DRAW Kina Sutt on Fiers Work Phone: Start: 11-01-2019 Urinalysis Venecia Dawson Work Phone: Start: 11-01-2019 URINE CONTAINER Kina S enaton [employer] Work Phone: Start: 11-01-2019 12 lead ECG Kina Sutt on Fiers Work Phone: Start: 10-31-2019 Retrograde pyelogram Angela della Zuñiga Work Phone: Start: 10-31-2019 Procedure on tissue specimen Yan Zuñiga Work Phone: Start: 10-31-2019 End: 10-31-2019 CYSTOSCOPY WITH RETROGRADE STONE MANIPULATION STENT INSERTION WITH LASER Yan Zuñiga Work Phone: Start: 10-31-2019 Choriogonadotropin ( test) [Presence] in Urine Yan Zuñiga Work Phone: Start: 10-25-2019 12 lead ECG Marilu Lynn Work Phone: Start: 10-25-2019 US scan of upper abdomen Marilu Lynn Work Phone: Start: 10-25-2019 Radiologic exam ches t single view Marilu Lynn Work Phone: Start: 10-25-2019 Urinalysis Marilu Lynn Work Phone: Start: 10-25-2019 Basic metabolic 2000 panel - Serum or Plasma Marilu Lynn Work Phone: Start: 10-25-2019 Choriogonadotropin.b eta subunit ( test) [Presence] in Serum or Plasma Marilu Lynn Work Phone: Start: 10-25-2019 Complete blood count with white cell differential, automated Marilu Lynn Work Phone: Start: 10-25-2019 Complete blood count with white cell differential, manual Marilu Lynn Work Phone: Start: 10-25-2019 R[place] TOP Antwan griffiths Work Phone: Start: 10-25-2019 Hepatic function 200 0 panel - Serum or Plasma Marilu Lynn Work Phone: Start: 10-25-2019 LIGHT BLUE TOP Antwan Yeung Work Phone: Start: 10-25-2019 LIGHT GREEN TOP Antwan Dolan Gamal Work Phone: Start: 10-25-2019 Lipase [Enzymatic activity/volume] in Serum or Plasma Marilu Lynn Work Phone: Start: 10-25-2019 PINK TOP Antwan griffiths Work Phone: Start: 10-25-2019 RAINBOW DRAW Antwan griffiths Work Phone: Start: 10-25-2019 Urinalysis macro (di pstick) panel - Urine Yan Christos Yogesh Work Phone: Start: 10-25-2019 MEASURE POST VOID RESIDUAL Yan Sher Yogesh Work Phone: Start: 10-16-2019 Choriogonadotropin ( test) [Presence] in Urine Eben Colby Work Phone: Start: 10-16-2019 Urnls dip stick/tabl et rgnt auto w/o microscopy Eben Colby Work Phone: Start: 09-30-2019 End: 09-30-2019 3d rendering w/interp&postproc diff work station Slick Whelan Work Phone: Start: 09-30-2019 CT of neck, thorax, abdomen and pelvis Slick Whelan Work Phone: Start: 09-30-2019 CT of cervical spine Ma tthew Tip Work Phone: Start: 09-30-2019 CT of maxillofacial area without contrast Slick Whelan Work Phone: Start: 09-30-2019 CT of head without contrast Slick Whelan Work Phone: Start: 09-30-2019 12 lead ECG Slick auguste Work Phone: Start: 09-30-2019 Radiologic exam ches t single view Slick Whelan Work Phone: Start: 09-30-2019 Basic metabolic 2000 panel - Serum or Plasma Slick Whelan Work Phone: Start: 09-30-2019 Choriogonadotropin.b eta subunit ( test) [Presence] in Serum or Plasma Slick Whelan Work Phone: Start: 09-30-2019 Complete blood count with white cell differential, automated Slick Whelan Work Phone: Start: 09-30-2019 Complete blood count with white cell differential, manual Slick Whelan Work Phone: Start: 09-30-2019 [place] TOP Slick auguste Work Phone: Start: 09-30-2019 LIGHT BLUE TOP Slick Whelan Work Phone: Start: 09-30-2019 LIGHT GREEN TOP Slick Whelan Work Phone: Start: 09-30-2019 PINK TOP Slick auguste Work Phone: Start: 09-30-2019 RAINBOW DRAW Slick auguste Work Phone: Start: 03-15-2019 Ct abdomen & pelvis w/o contrast material Dylan Emmanuel Work Phone: Start: 03-15-2019 Basic metabolic 2000 panel - Serum or Plasma Mustapha Chacon Work Phone: Start: 03-15-2019 Complete blood count with white cell differential, automated Mustapha Chacon Work Phone: Start: 03-15-2019 Complete blood count with white cell differential, manual Mustapha Chacon Work Phone: Start: 03-15-2019 Hepatic function 200 0 panel - Serum or Plasma Mustapha Chacon Work Phone: Start: 03-15-2019 Lipase [Enzymatic activity/volume] in Serum or Plasma Mustapha Chacon Work Phone: Start: 03-15-2019 Choriogonadotropin ( test) [Presence] in Urine Mustapha Chacon Work Phone: Start: 03-15-2019 Drugs of abuse urine screening test Linda Todd Work Phone: Start: 03-15-2019 Urinalysis Mustapha Chacon Work Phone: Start: 12-08-2018 Ct abdomen & pelvis w/contrast material Dharmesh Robison Work Phone: Start: 12-08-2018 Choriogonadotropin ( test) [Presence] in Urine Delbert Mikal Santiago Work Phone: Start: 12-08-2018 Urinalysis Dharmesh Robison Work Phone: Start: 12-08-2018 Basic metabolic 2000 panel - Serum or Plasma Dharmesh Robison Work Phone: Start: 12-08-2018 Complete blood count with white cell differential, automated Dharmesh Robison Work Phone: Start: 12-08-2018 Complete blood count with white cell differential, manual Dharmesh Robison Work Phone: Start: 12-08-2018 Hepatic function 200 0 panel - Serum or Plasma Dharmesh Robison Work Phone: Start: 12-08-2018 Lipase [Enzymatic activity/volume] in Serum or Plasma Dharmesh Robison Work Phone: Start: 11-16-2018 Microscopic observat ion [Identifier] in Cervix by Cyto stain Delbert Henderson Start: 04-30-2018 Choriogonadotropin ( test) [Presence] in Urine Guerline Arauz Work Phone: Start: 04-30-2018 Drugs of abuse urine screening test Guerline Arauz Work Phone: Start: 04-30-2018 Urinalysis Guerline Arauz Work Phone: Start: 04-30-2018 Basic metabolic 2000 panel - Serum or Plasma Guerline Arauz Work Phone: Start: 04-30-2018 Complete blood count with white cell differential, automated Guerline Arauz Work Phone: Start: 04-30-2018 Complete blood count with white cell differential, manual Guerline Arauz Work Phone: Start: 04-30-2018 [place] TOP Armand Rome ilip Staleksandr Work Phone: Start: 04-30-2018 Hepatic function 200 0 panel - Serum or Plasma Guerline Arauz Work Phone: Start: 04-30-2018 LAVENDER TOP Armand Rome ilip Staleksandr Work Phone: Start: 04-30-2018 LIGHT BLUE TOP Armand Randy Staleksandr Work Phone: Start: 04-30-2018 LIGHT GREEN TOP Armand Padilla St[employer] Work Phone: Start: 04-30-2018 Lipase [Enzymatic activity/volume] in Serum or Plasma Guerline Arazu Work Phone: Start: 04-30-2018 MINT GREEN TOP Armand Garcia Work Phone: Start: 04-30-2018 RAINBOW DRAW Armand Rome ilip Staleksandr Work Phone: Start: 03-31-2018 Radiography of ajtbob-jpgypb-tiofehq Marnie Chavezo Work Phone: Start: 03-31-2018 Urinalysis Marnie Felton Work Phone: Start: 03-31-2018 Basic metabolic 2000 panel - Serum or Plasma Marnie Felton Work Phone: Start: 03-31-2018 Complete blood count with white cell differential, automated Marnie Chavezo Work Phone: Start: 03-31-2018 Complete blood count with white cell differential, manual Marnie Chavezo Work Phone: Start: 03-31-2018 Hepatic function 200 0 panel - Serum or Plasma Marnie Chavezallo Work Phone: Start: 03-31-2018 Lipase [Enzymatic activity/volume] in Serum or Plasma Marnie Chavezo Work Phone: Start: 03-11-2018 End: 03-11-2018 Radex spine lumbosacral 2/3 views Eyad Willett Work Phone: Start: 03-11-2018 End: 03-11-2018 Radex spine thoracic 3 views Eyad Willett Work Phone: Start: 03-11-2018 End: 03-11-2018 Choriogonadotropin ( test) [Presence] in Urine Eyad Willett Work Phone: Start: 03-11-2018 End: 03-11-2018 Urinalysis Eyad gill Work Phone: Start: 02-15-2018 End: 02-15-2018 CT of head without contrast Jessicajessica dubose Work Phone: Start: 02-15-2018 End: 02-15-2018 Choriogonadotropin ( test) [Presence] in Urine Jessica Dickens Work Phone: Start: 02-15-2018 End: 02-15-2018 Basic metabolic 2000 panel - Serum or Plasma Jessica Boucher Maninder Work Phone: Start: 02-15-2018 End: 02-15-2018 Complete blood count with white cell differential, automated Jessicajessica Boucher Maninder Work Phone: Start: 02-15-2018 End: 02-15-2018 Complete blood count with white cell differential, manual Jessicajessica Boucher Maninder Work Phone: Start: 02-15-2018 End: 02-15-2018 Urinalysis Jessica Boucher Maninder Work Phone: Start: 02-02-2018 End: 02-02-2018 MEASURE POST VOID RESIDUAL Yan gamez Work Phone: Start: 02-02-2018 End: 02-02-2018 Urinalysis macro (dipstick) panel - Urine Yan Zuñiga Work Phone: Start: 01-09-2018 End: 01-09-2018 Us transvaginal Ryan bowens Work Phone: Start: 01-09-2018 End: 01-09-2018 Ct abdomen & pelvis w/contrast material Ryan Greco Work Phone: Start: 01-09-2018 End: 01-09-2018 Choriogonadotropin ( test) [Presence] in Urine Ryan Greco Work Phone: Start: 01-09-2018 End: 01-09-2018 Urinalysis Rayn bowens Work Phone: Start: 01-09-2018 End: 01-09-2018 Basic metabolic 1998 panel - Serum or Plasma Ryan Greco Work Phone: Start: 01-09-2018 End: 01-09-2018 Complete blood count with white cell differential, automated Ryan Greco Work Phone: Start: 01-09-2018 End: 01-09-2018 Complete blood count with white cell differential, manual Ryan Greco Work Phone: Start: 01-09-2018 End: 01-09-2018 Lactate [Moles/volume] in Serum or Plasma Ryan Greco Work Phone: Start: 01-09-2018 End: 01-09-2018 Lipase [Enzymatic activity/volume] in Serum or Plasma Ryan Greco Work Phone: Start: 12-15-2017 End: 12-15-2017 Basic metabolic 2000 panel - Serum or Plasma Edwina Coreas Work Phone: Start: 12-15-2017 End: 12-15-2017 Blood count complete auto&auto difrntl wbc Edwina Coreas Work Phone: Start: 12-15-2017 End: 12-15-2017 Choriogonadotropin ( test) [Presence] in Urine Edwina Coreas Work Phone: Start: 12-15-2017 End: 12-15-2017 Hepatic function 2000 panel - Serum or Plasma Edwina Coreas Work Phone: Start: 12-15-2017 End: 12-15-2017 Lactate [Moles/volume] in Serum or Plasma Edwina Coreas Work Phone: Start: 12-15-2017 End: 12-15-2017 Urnls dip stick/tablet reagent auto microscopy Edwina Coreas Work Phone: Start: 12-15-2017 End: 12-15-2017 Radiologic exam abdomen 1 view Edwina Coreas Work Phone: Start: 11-12-2016 Microscopic observat ion [Identifier] in Cervix by Cyto stain Ryan Greco Start: 08-12-2016 Microscopic observat ion [Identifier] in Cervix by Cyto stain Marium Doty Plan of Treatment Date Care Activity Detail Author Start: 2065 RSV Immunization for Adults (1 - 1-dose 75+ series) RSV Immunization for Adults (1 - 1-dose 75+ series) [facility] [place] Start: 2040 Shingles (RZV) Vaccine (1 of 2) Shingles (RZV) Vaccine (1 of 2) [facility] Start: 2040 Zoster Vaccines (1 of 2) Zoster Vaccines (1 of 2) [facility] Start: 08-14-2027 DTaP,Tdap,and Td Vaccines (4 - Td or Tdap) DTaP,Tdap,and Td Vaccines (4 - Td or Tdap) [facility] Start: 08-14-2027 DTaP/Tdap/Td vaccine (4 - Td or Tdap) DTaP/Tdap/Td vaccine (4 - Td or Tdap) [facility] Start: 08-14-2027 DTaP/Tdap/Td Vaccines (4 - Td or Tdap) DTaP/Tdap/Td Vaccines (4 - Td or Tdap) [facility] Start: 08-14-2027 Tetanus vaccination [facility] Start: 08-14-2027 Urine microalbumin profile [facility] Start: 05-07-2027 HPV TESTING HPV TESTING [facility] Start: 05-07-2027 PAP TESTING PAP TESTING [facility] Start: 05-07-2027 Screening for malignant neoplasm of cervix [facility] Start: 04-22-2026 Lipid panel Cholesterol Screening (Lipid Panel) [facility] Start: 01-21-2026 Screening for malignant neoplasm of cervix Pap Smear [facility] [place] Start: 05-06-2025 Screening for malignant neoplasm of cervix [facility] Start: 01-22-2025 Tetanus vaccination TETANUS EVERY 10 YR [facility] Work Phone: Start: 12-25-2024 End: 12-25-2024 Patient encounter procedure 12/25/2024 1:00 PM EDT Office Visit [facility] [place] [facility] [address] [address] [place] [phone] Aurelia Castillo, PA-C [address] [facility] [address] [place] [address] [facility] [place] [facility] Start: 12-19-2024 Adolescent depression screening assessment Depression Screening [facility] Start: 12-18-2024 Depression Monitoring Depression Monitoring [facility] Start: 12-14-2024 Adolescent depression screening assessment Depression Screening [facility] Start: 12-14-2024 Social Influencers of Health Screening Social Influ[employer] of Health Screening [facility] Start: 11-05-2024 Tetanus vaccination TETANUS [facility] Work Phone: Start: 09-04-2024 End: 09-04-2024 Patient encounter procedure 09/04/2024 11:30 AM EDT Office Visit [facility] [address] [place] [phone] Kelsie Cotto MD [address] [facility] [address] [place], [place] [address] [facility] Start: 08-31-2024 End: 08-31-2024 Patient encounter procedure 08/31/2024 1:00 PM EDT Office Visit [facility] [address] [place], [place] [address] Yazmin Whelan, GUANAKO.GARAGE LABORER [address] [place] [address] Anxiety, Depression, OCD, Bipolar, panic attacks (new symptom), PTSD [facility] General behavioral Medicine Comment on above: Anxiety, Depression, OCD, Bipolar, panic attacks (new symptom), PTSD Start: 08-30-2024 End: 08-30-2024 Patient encounter procedure 08/30/2024 1:00 PM EDT Office Visit [facility] [address] [place] [phone] Edna Reyes DO [address] [place] [address] [facility] Start: 08-21-2024 End: 08-21-2024 Patient encounter procedure 08/21/2024 8:45 AM EDT Office Visit [facility] Obstetrics and Gynecology - [facility] [address] [place] [address] Delbert Mccormick MD [address] [facility] [address] [place] [phone] [facility] Obstetrics [facility] Gynecology - [place] Start: 08-06-2024 End: 08-06-2024 ambulatory 08/06/2024 9:15 AM EDT Evaluation [facility] at [address] [place] [address] Kelsie Cotto MD [address] [facility] [place] [address] Jean-Pierre Contreras OT [facility] [place] Start: 08-03-2024 End: 08-03-2024 ambulatory 08/03/2024 9:30 AM EDT Evaluation [facility] at [facility] at [address] [place] [phone] Nat Ocampo DISINTEGRATOR - GARAGE LABORER [address] [facility] [address] [place], [place] [phone] Kylee Houser, PT [facility] Therapy at [facility] Start: 07-25-2024 End: 07-25-2024 Patient encounter procedure 07/25/2024 3:00 PM EDT Office Visit [facility] [address] [facility] [address] [place] [phone] Nat Ocampo APRN - GARAGE LABORER [address] [facility] [address] [place], [place] [phone] [facility] - [place] Start: 07-24-2024 End: 07-24-2024 Patient encounter procedure [facility] Start: 07-23-2024 End: 07-23-2025 XR Finger - left 2 Views XR fingers 2+ views left Imaging Routine Finger pain, left Expected: 07/23/2024, Expires: 07/23/2025 [facility] System Work Phone: Comment on above: Expected: 07/23/2024, Expires: Start: 07-17-2024 End: 07-17-2024 Patient encounter procedure 07/17/2024 1:00 PM EDT Office Visit [facility] [address] [place] [address] Clair Harrison PA-C [address] [facility] [address] [place] [address] [facility] Start: 07-12-2024 End: 07-12-2024 Patient encounter procedure 07/12/2024 9:30 AM EDT Office Visit [facility] [address] [place] [address] Nat Ocampo APRN - GARAGE LABORER [address] [facility] [address] [place] [address] [facility] Orthopedics - [place] Start: 06-27-2024 End: 06-27-2024 Patient encounter procedure 06/27/2024 9:40 AM EDT [facility] [address] [facility] 5TH FLOOR [place], [place] [phone] López Ryan MD 1 [place], [place] [phone] Est. care [facility] Comment on above: Est. care Start: 06-26-2024 End: 06-26-2024 Patient encounter procedure 06/26/2024 3:00 PM EDT Office Visit [facility] Obstetrics and Gynecology - [place] [address] [place] [address] Delbert Mccormick MD [address] [facility] [address] [place] [phone] [facility] Obstetrics and Gynecology - [place] Start: 04-25-2024 End: 04-25-2024 Patient encounter procedure 04/25/2024 2:00 PM EST Office Visit [facility] [address] [place] [address] Bobo Fields DO [address] [facility], [address] [place], [place] [phone] [facility] Start: 02-20-2024 End: 02-20-2024 Nursing evaluation of patient and report 02/20/2024 10:30 AM EST Nurse Visit [facility] [place] [address] [place] [phone] r/o fatty liver/elina inpatient coder ordered//cc [facility] Comment on above: r/o fatty liver/elina inpatient coder ordered//cc Start: 01-04-2024 End: 01-04-2024 Patient encounter procedure 01/04/2024 9:20 AM EDT Office Visit [facility] [place] [address] [facility] [address] [place] [phone] Azael Burk, [address] [facility] [address] [place], [place] [phone] [facility] Start: 12-30-2023 End: 12-30-2023 Patient encounter procedure 12/30/2023 8:20 AM EDT Office Visit [facility] [address] [place] [address] AndMarry regan APRN.GARAGE LABORER [address] [place], [place] [phone] [facility] Comment on above: [facility] Start: 12-05-2023 End: 12-05-2023 Patient encounter procedure 12/05/2023 11:00 AM EDT [facility] [address] [place] [address] Julian Gilbert MD [address] [place] [address] Vertebral Artery Stenosis [facility] Comment on above: Vertebral Artery Stenosis Start: 11-23-2023 End: 11-23-2023 Patient encounter procedure 11/23/2023 10:00 AM EDT Office Visit [facility] [address] [place], [place] [phone] [place] [address] [place] [address] 6 month follow up [facility] Comment on above: 6 month follow up Start: 11-06-2023 COVID-19 Vaccine ( season) COVID-19 Vaccine ( season) [facility] Start: 11-06-2023 Covid-19 Vaccine ( season) Covid-19 Vaccine ( season) [facility] Start: 11-06-2023 COVID-19 Vaccine ( season) COVID-19 Vaccine () [facility] Start: 11-06-2023 Influenza vaccination [facility] Start: 11-02-2023 End: 11-02-2023 Patient encounter procedure 11/02/2023 9:30 AM EDT Office Visit [facility] [address] [place] [address] [place] [address] [place] [address] chest pain probable left artial enlargement [facility] Comment on above: chest pain probable left artial enlargem ent Start: 10-26-2023 End: 10-26-2023 Patient encounter procedure 10/26/2023 10:40 AM EDT Office Visit [facility] [address] [facility] [address]TH FLOOR [place], [place] [phone] Humberto Saha MD 1 [place], [place] [phone] EST CARE [facility] ([facility]) Comment on above: EST CARE Start: 10-10-2023 End: 10-10-2023 Patient encounter procedure 10/10/2023 1:00 PM EDT Office Visit [facility] [address] [place], [place] [phone] Nathan [place], [address] [place] [address] CONSULT TO NEUROLOGY [facility] Comment on above: CONSULT TO NEUROLOGY Start: 09-23-2023 End: 09-23-2023 Nursing evaluation of patient and report 09/23/2023 2:00 PM EDT Nurse Visit [facility] [address] [facility] [address] [place] [address] scan [facility] Comment on above: scan Start: 09-22-2023 End: 09-22-2023 Telemedicine consultation with patient 09/22/2023 2:00 PM EDT Telemedicine [facility] [address] [facility] [address] [place] [address] Magdalene Glaser, [address] [place] [address] [facility] [address] [facility] Start: 08-29-2023 End: 08-29-2023 Patient encounter procedure 08/29/2023 9:40 AM EDT Office Visit [facility] [address] [place] [address] Atypical chest pain [R07.89] [facility] Comment on above: Atypical chest pain [R07.89] Start: 08-22-2023 End: 08-22-2023 Nursing evaluation of patient and report 08/22/2023 11:00 AM EDT Nurse Visit [facility] [address] [facility] [address] [place] [address] fibroscan [facility] Comment on above: fibroscan Start: 08-18-2023 End: 08-18-2023 Telemedicine consultation with patient 08/18/2023 3:30 PM EDT [facility]icine [facility] [address] [facility] [address] [place] [address] Akbar Garcia MD [address] [place] [address] [facility] [address] [facility] Start: 08-17-2023 End: 08-17-2023 Patient encounter procedure 08/17/2023 9:40 AM EDT Office Visit Internal Medicine [address] [place] [address] [place] [address] [place] [address] excrutiating belly discomfort Internal Medicine Comment on above: excrutiating belly discomfort Start: 08-04-2023 End: 08-04-2023 Patient encounter procedure 08/04/2023 2:30 PM EDT Office Visit [facility] [address] [place] [address] Akbar Garcia MD [address] [place], [place] [phone] [facility] Start: 08-03-2023 End: 08-03-2023 Patient encounter procedure 08/03/2023 11:00 AM EDT Office Visit [facility] [address] [place] [phone] Jania Liao MD, PhD [address] [place], [place] [phone] Stenosis of right vertebral artery [I65.01] [facility] Comment on above: Stenosis of right vertebral artery [I65. 01] Start: 05-13-2023 End: 08-12-2023 Bacteria identified in Urine by Culture URINE CULTURE Microbiology Routine Sensation of pressure in bladder area Expected: 05/13/2023, Expires: 08/12/2023 [facility] Work Phone: Comment on above: Expected: 05/13/2023, Expires: 4 Start: 04-20-2023 End: 07-20-2023 ALPHA 1 ANTITRYPSIN PHENOTYPE [facility] [place] Work Phone: Comment on above: Expected: 04/20/2023, Expires: 4 Start: 04-20-2023 End: 07-20-2023 Ceruloplasmin [Mass/volume] in Serum or Plasma [facility] [place] Work Phone: Comment on above: Expected: 04/20/2023, Expires: 4 Start: 04-20-2023 End: 07-20-2023 Ferritin [Mass/volume] in Serum or Plasma [facility] [place] Work Phone: Comment on above: Expected: 04/20/2023, Expires: 4 Start: 04-20-2023 End: 07-20-2023 HEPATITIS A ANTIBODY, IGG [facility] [place] Work Phone: Comment on above: Expected: 04/20/2023, Expires: 4 Start: 04-20-2023 End: 07-20-2023 Hepatitis B virus core Ab [Presence] in Serum [facility] Work Phone: Comment on above: Expected: 04/20/2023, Expires: 4 Start: 04-20-2023 End: 07-20-2023 Hepatitis B virus surface Ab [Presence] in Serum [facility] Work Phone: Comment on above: Expected: 04/20/2023, Expires: 4 Start: 04-20-2023 End: 07-20-2023 IgA [Mass/volume] in Serum or Plasma [facility] Work Phone: Comment on above: Expected: 04/20/2023, Expires: 4 Start: 04-20-2023 End: 07-20-2023 Iron and Iron binding capacity panel - Serum or Plasma [facility] Work Phone: Comment on above: Expected: 04/20/2023, Expires: 4 Start: 04-20-2023 End: 07-20-2023 Nuclear Ab [Presence] in Serum by Immunoassay [facility] Work Phone: Comment on above: Expected: 04/20/2023, Expires: 4 Start: 04-20-2023 End: 07-20-2023 Smooth muscle Ab [Presence] in Serum [facility] [place] Work Phone: Comment on above: Expected: 04/20/2023, Expires: Start: 04-20-2023 End: 07-20-2023 Tissue transglutaminase IgA Ab [Units/volume] in Serum [facility] Work Phone: Comment on above: Expected: 04/20/2023, Expires: 4 Start: 04-18-2023 End: 07-18-2023 CBC W Auto Differential panel - Blood [facility] Work Phone: Comment on above: Expected: 04/18/2023, Expires: 4 Start: 04-18-2023 End: 07-18-2023 Comprehensive metabolic 2000 panel - Serum or Plasma [facility] Work Phone: Comment on above: Expected: 04/18/2023, Expires: 4 Start: 04-18-2023 End: 07-18-2023 Hepatitis B virus surface Ag [Presence] in Serum [facility] Work Phone: Comment on above: Expected: 04/18/2023, Expires: 4 Start: 04-18-2023 End: 07-18-2023 Hepatitis C virus Ab [Presence] in Serum [facility] Work Phone: Comment on above: Expected: 04/18/2023, Expires: 4 Start: 04-18-2023 End: 07-18-2023 HIV 1+2 Ab [Presence] in Serum or Plasma by Immunoassay [facility] Work Phone: Comment on above: Expected: 04/18/2023, Expires: 4 Start: 04-18-2023 End: 07-18-2023 SYPHILIS TOTAL W/REFLEX [facility] Work Phone: Comment on above: Expected: 04/18/2023, Expires: Start: 04-06-2023 End: 04-06-2023 Patient encounter procedure 04/06/2023 3:00 PM EST Office Visit [address] [facility] 200 [place] [address] Judson Newby MD [address] [place] [address] [address] [place] [address] [facility] Start: 02-08-2023 Patient encounter procedure [facility] [place] Start: 02-08-2023 End: 02-08-2023 Patient encounter procedure 02/08/2023 1:45 PM EST Office Visit [facility] [address] [place] [phone] [place] [address] Adger Julia Department of Ophthalmology [place], [place] [address] [facility] Start: 12-05-2022 Influenza vaccination Influenza Vaccine (#1) [facility] Start: 12-02-2022 End: 12-02-2022 Patient encounter procedure 12/02/2022 1:30 PM EDT Office Visit [facility] [address] [facility] [address] [place] [address] Akbar Garcia MD [address] [place], [place] [phone] [facility] [address] [facility] Start: 11-18-2022 End: 11-18-2022 Patient encounter procedure 11/18/2022 3:30 PM EDT Office Visit [facility] [address] [facility] [address] [place], [place] [phone] Akbar Garcia MD [address] [place] [address] [facility] [address] [facility] Start: 11-05-2022 Covid-19 Vaccine () Covid-19 Vaccine () [facility] Start: 11-05-2022 Influenza vaccination [facility] Start: 10-12-2022 Patient encounter procedure [facility] [place] Start: 10-07-2022 End: 12-07-2022 Bacteria identified in Urine by Culture URINE CULTURE Microbiology Routine Increased frequency of urination Expected: 10/07/2022, Expires: 12/07/2022 [facility] Work Phone: Comment on above: Expected: 10/07/2022, Expires: Start: 10-02-2022 End: 10-03-2023 Ondansetron Injectable 4 mg IntraVenous Push Once STAT ; (ZOFRAN)DOSE = 4 mg IntraVenous Push Once Start: 02-Oct-2022 End: 02-Oct-2023 Ordered: 02-Oct-2022 oDnovan Headley Intent [facility] Start: 09-09-2022 COVID-19 Vaccine (4 - Pfizer series) COVID-19 Vaccine (4 - Pfizer series) [facility] Start: 09-07-2022 End: 09-08-2023 Potassium Chloride Extended Release ; Tablet, Extended ReleaseDOSE = 20 mEq Oral Once Start: 07-Sep-2022 End: 07-Sep-2023 Ordered: 07-Sep-2022 Analisa Ramos Intent [facility] Start: 08-06-2022 End: 08-06-2022 Nursing evaluation of patient and report 08/06/2022 Nurse Visit Behavioral Health Kina Fajardo RN [address] [place] [address] [facility] Start: 08-06-2022 End: 08-06-2022 Patient encounter procedure 08/06/2022 Office Visit Akbar Prieto MD [address] [place] [address] [address] [facility] [address] [facility] Start: 07-02-2022 End: 09-01-2022 Choriogonadotropin.beta subunit [Units/volume] in Serum or Plasma HCG QUANTITATIVE Lab Routine examination or test, unconfirmed Expected: 07/02/2022, Expires: 09/01/2022 [facility] Work Phone: Comment on above: Expected: 07/02/2022, Expires: 3 Start: 07-02-2022 End: 09-01-2022 TYPE + SCREEN TYPE + SCREEN Blood Bank Routine examination or test, unconfirmed Expected: 07/02/2022, Expires: 09/01/2022 [facility] Work Phone: Comment on above: Expected: 07/02/2022, Expires: 3 Start: 06-04-2022 End: 08-04-2022 Choriogonadotropin.beta subunit [Units/volume] in Serum or Plasma [facility] Work Phone: Comment on above: Expected: 06/04/2022, Expires: Start: 05-17-2022 End: 05-17-2022 Patient encounter procedure 05/17/2022 Office Visit Family [facility] Vinita Cornelius, GUANAKO-GARAGE LABORER [address] [place] [address] [facility] Resources [facility] Start: 05-14-2022 End: 07-14-2022 25-hydroxyvitamin D3 [Mass/volume] in Serum or Plasma VITAMIN D 25 HYDROXY Lab Routine Vitamin D deficiency Expected: 05/14/2022, Expires: 07/14/2022 [facility] Work Phone: Comment on above: Expected: 05/14/2022, Expires: 3 Start: 05-14-2022 End: 05-15-2023 CBC W Auto Differential panel - Blood CBC + DIFF Lab Routine Encounter for medical examination to establish care Expected: 05/14/2022, Expires: 05/15/2023 [facility] Work Phone: Comment on above: Expected: 05/14/2022, Expires: 4 Start: 05-14-2022 End: 07-14-2022 Cobalamin (Vitamin B12) [Mass/volume] in Serum or Plasma VITAMIN B12 BLOOD Lab Routine B12 deficiency Expected: 05/14/2022, Expires: 07/14/2022 [facility] Work Phone: Comment on above: Expected: 05/14/2022, Expires: 3 Start: 05-14-2022 End: 05-15-2023 Comprehensive metabolic 2000 panel - Serum or Plasma COMP METABOLIC PANEL Lab Routine Encounter for medical examination to establish care Expected: 05/14/2022, Expires: 05/15/2023 [facility] Work Phone: Comment on above: Expected: 05/14/2022, Expires: 4 Start: 05-14-2022 End: 07-14-2022 Hepatitis C virus Ab [Presence] in Serum HEP C AB IA W/CONF SCRN Lab Routine Special screening examination for viral disease Expected: 05/14/2022, Expires: 07/14/2022 [facility] Work Phone: Comment on above: Expected: 05/14/2022, Expires: 3 Start: 05-14-2022 End: 07-14-2022 HIV 1+2 Ab [Presence] in Serum or Plasma by Immunoassay HIV 1 2 COMBO(AG/AB),WITH REFLEX TO DIFFERENTIATION Lab Routine Screening for HIV (human immunodeficiency virus) Expected: 05/14/2022, Expires: 07/14/2022 [facility] Work Phone: Comment on above: Expected: 05/14/2022, Expires: 3 Start: 05-14-2022 End: 07-14-2022 Iron and Iron binding capacity panel - Serum or Plasma IRON + TIBC Lab Routine Iron deficiency anemia, unspecified iron deficiency anemia type Expected: 05/14/2022, Expires: 07/14/2022 [facility] Work Phone: Comment on above: Expected: 05/14/2022, Expires: 3 Start: 05-14-2022 End: 05-15-2023 Lipid 1996 panel - Serum or Plasma LIPID PANEL BASIC Lab Routine Encounter for medical examination to establish care Expected: 05/14/2022, Expires: 05/15/2023 [facility] Work Phone: Comment on above: Expected: 05/14/2022, Expires: Start: 05-04-2022 End: 05-04-2022 Nursing evaluation of patient and report 05/04/2022 Nurse Visit Behavioral Health Nani Steward RN [address] [place] [address] [place] [address] [facility] [address] [facility] Start: 04-30-2022 End: 04-30-2022 Patient encounter procedure 04/30/2022 Office Visit Behavioral Akbar Muller MD [address] [place] [address] [place] [address] [facility] [address] [facility] Start: 04-30-2022 End: 04-30-2022 Telemedicine consultation with patient 04/30/2022 Telemedicine Behavioral Health Akbar Garcia MD [address] [place], [place] [address] [address] [facility] [address] [facility] Start: 04-22-2022 End: 04-22-2022 Nursing evaluation of patient and report 04/22/2022 Nurse Visit Behavioral Health Shanon Lovell RN [facility] [address] [facility] Start: 04-22-2022 End: 04-22-2022 Patient encounter procedure 04/22/2022 Office Visit Family Practice Marie Amaya DO [address] [place] [address] [facility] Start: 04-22-2022 Diabetes mellitus screening Diabetes Screening [facility] Start: 04-21-2022 Adolescent depression screening assessment Depression Screening [facility] Start: 04-08-2022 End: 04-08-2022 Nursing evaluation of patient and report 04/08/2022 Nurse Visit Behavioral Health Kina Fajardo RN [address] [place] [address] [place] [address] [facility] Start: 04-06-2022 Patient encounter procedure Outpatient [facility] Rheumatology [place] Start: 06-Apr-2022 14:30 Hilario Ayala Intent [facility] Rheumatology [place] Start: 03-17-2022 End: 05-17-2022 Choriogonadotropin.beta subunit [Units/volume] in Serum or Plasma HCG QUANTITATIVE Lab Routine Missed menses Expected: 03/17/2022, Expires: 05/17/2022 [facility] Work Phone: Comment on above: Expected: 03/17/2022, Expires: Start: 03-07-2022 DEPRESSION ASSESSMENT DEPRESSION ASSESSMENT [facility] Start: 03-04-2022 End: 03-04-2023 cefTRIAXone 2 gram/Dextrose 5% IVPB Premixed Soln 50 mL Every 24 Hours ; (ROCEPHIN)OnceRecommend ed Infusion Time: 30 minute(s) Start: 03-Mar-2022 End: 03-Mar-2023 Ordered: 03-Mar-2022 Sorin Shetty Intent [facility] Start: 01-21-2022 History and physical examination, annual for health maintenance Wellness Visit [facility] Start: 12-05-2021 Influenza vaccination Influenza Vaccine (#1) [facility] Start: 12-03-2021 End: 12-03-2021 Telemedicine consultation with patient 12/03/2021 Telemedicine [facility] Loly Rodriguez MD [address] [place], [place] [id number] [facility] Start: 11-16-2021 Screening for malignant neoplasm of cervix PAP SMEAR [facility] Start: 11-13-2021 End: 11-13-2021 Nursing evaluation of patient and report 11/13/2021 Nurse Visit Behavioral Health Kina Fajardo RN [address] [place] [address] [facility] Start: 11-05-2021 Influenza vaccination [facility] Start: 10-27-2021 End: 12-27-2021 Thyrotropin [Units/volume] in Serum or Plasma TSH BLD Lab Routine Abnormal uterine bleeding (AUB) Expected: 10/27/2021, Expires: 12/27/2021 [facility] Work Phone: Comment on above: Expected: 10/27/2021, Expires: Start: 09-09-2021 End: 09-09-2021 Clinical Support 09/09/2021 Clinical Support Obstetrics and Gynecology [facility] Start: 09-08-2021 End: 09-08-2021 Patient encounter procedure 09/08/2021 Office Visit Family Medicine Sravani Cain, EVON [address] [address] [facility] Start: 08-26-2021 End: 08-26-2021 Patient encounter procedure 08/26/2021 Office Visit Cardiology Mike Mustafa MD [address] [place] [address] [facility] Start: 08-25-2021 End: 08-25-2022 12 lead ECG ECG 12 Lead ECG Routine Chest pain, unspecified type Expected: 08/25/2021 (Approximate), Expires: 08/25/2022 [facility] Work Phone: Comment on above: Expected: 08/25/2021 (Approximate), Expi res: 08/25/2022 Start: 08-24-2021 End: 08-24-2021 Clinical Support 08/24/2021 Clinical Support Obstetrics and Gynecology [facility] Start: 08-17-2021 End: 08-17-2021 Clinical Support 08/17/2021 Clinical Support Obstetrics and Gynecology [facility] Start: 08-14-2021 End: 08-14-2021 Patient encounter procedure 08/14/2021 Office Visit Dermatology Nathan Ram MD [address] [facility] [address] [place] [address] [facility] Start: 08-04-2021 End: 08-04-2021 Patient encounter procedure 08/04/2021 Office Visit Family Medicine Basia Tristan, DO [address] [phone] [facility] Start: 07-31-2021 End: 07-31-2021 Clinical Support 07/31/2021 Clinical Support Obstetrics and Gynecology [facility] Start: 07-01-2021 End: 07-01-2021 Patient encounter procedure 07/01/2021 Office Visit Family Medicine Basia Tristan, DO [address] [phone] [facility] Start: 06-24-2021 End: 06-24-2021 ambulatory 06/24/2021 Evaluation Physical Therapy Chrissy Diaz, PT [facility] Start: 06-01-2021 End: 06-01-2021 Patient encounter procedure 06/01/2021 Office Visit Family Medicine Basia Tristan, [address] [phone] [facility] Start: 03-22-2021 COVID-19 VACCINE (4 - Booster for Pfizer series) COVID-19 VACCINE (4 - Booster for Pfizer series) [facility] Start: 03-07-2021 DEPRESSION ASSESSMENT DEPRESSION ASSESSMENT [facility] Start: 02-15-2021 COVID-19 Vaccine (2 - Pfizer series) COVID-19 Vaccine (2 - Pfizer series) [facility] Start: 01-21-2021 End: 01-21-2021 Patient encounter procedure 01/21/2021 Office Visit Obstetrics and Gynecology Haley Lund, [facility] [address] [place] [phone] [facility] [address] [facility] Start: 01-15-2021 History and physical examination, annual for health maintenance Wellness Visit [facility] Start: 01-05-2021 End: 01-05-2021 Patient encounter procedure 01/05/2021 Office Visit Gastroenterology Mercedez Cotto, [employer] [address] [place], [place] [id number] Kevin Sawyer MD [address] [facility] [address] [place] [address] [facility] Start: 11-05-2020 Influenza vaccination Sequential Influenza Vaccine (#1) [facility] Start: 2020 HPV TESTING HPV TESTING [facility] Start: 2020 Screening for malignant neoplasm of cervix [facility] Start: 11-01-2020 Depression screening using PHQ-9 (Patient Health Questionnaire 9) score Depression Screening (PHQ-2/9) [facility] Start: 08-28-2020 End: 08-28-2020 Patient encounter procedure 08/28/2020 Office Visit Urology Yan Zuñiga MD [address] [place] [address] [place] [address] [phone] [facility] Start: 08-26-2020 End: 08-26-2020 Patient encounter procedure 08/26/2020 Office Visit Obstetrics and Gynecology Radha Buenrostro MD [address] [place] [phone] [facility] Start: 08-19-2020 End: 08-19-2020 Patient encounter procedure 08/19/2020 Office Visit Urology Yan Zuñiga MD [address] [place], [place] [phone] [facility] Start: 07-21-2020 COVID-19 Vaccine (2 - Pfizer 2-dose series) COVID-19 Vaccine (2 - Pfizer 2-dose series) [facility] Start: 07-08-2020 End: 07-08-2020 Patient encounter procedure 07/08/2020 Appointment Radiology Giuliana Payan, [employer] [address] [place] [address] [place] [address] [phone] [facility] Nuclear Medicine Start: 07-08-2020 End: 07-08-2020 Patient encounter procedure 07/08/2020 Appointment Radiology Giuliana Payan, [employer] [address] [place] [address] [place] [address] [phone] [facility] Start: 06-19-2020 End: 06-19-2020 Office Visit 06/19/2020 Office Visit Urology Yan Zuñiga MD [address] [facility] [address] [place] [address] [phone] [facility] Start: 01-16-2020 End: 01-16-2020 Office Visit 01/16/2020 Office Visit Obstetrics and Gynecology Haley Lund, [address] [phone] [facility] Start: 12-20-2019 End: 12-20-2019 Office Visit 12/20/2019 Office Visit Urology Yan Zuñiga MD [address] [place] [address] [phone] [facility] Start: 12-04-2019 End: 12-04-2019 Office Visit 12/04/2019 Office Visit Colon and Rectal Surgery Ankur Mejia MD [address] [place] [address] [facility] Colorectal Surgeons Start: 11-23-2019 End: 11-23-2019 Office Visit 11/23/2019 Office Visit Urology Basilio Owens MD [address] [address] [phone] [facility] Start: 11-21-2019 End: 11-21-2019 Office Visit 11/21/2019 Office Visit Obstetrics and Gynecology Yazmin Magallanes CN [address] [place] [address] [place] [address] [phone] [facility] Start: 11-21-2019 End: 11-21-2019 Office Visit 11/21/2019 Office Visit Obstetrics and Gynecology Yazmin Magallanes CN [address] [place] [address] [place] [address] [phone] [facility] Start: 11-20-2019 End: 11-20-2019 Follow-Up 11/20/2019 Follow-Up Urology aYn Zuñiga MD [address] [place] [address] [phone] [facility] Start: 11-17-2019 History and physical examination, annual for health maintenance Wellness Visit [facility] Start: 11-16-2019 End: 11-16-2019 Clinical Support 11/16/2019 Clinical Support Urology [facility] Start: 11-13-2019 Screening for malignant neoplasm of cervix PAP SMEAR [facility] Start: 11-09-2019 End: 11-09-2019 Clinical Support 11/09/2019 Clinical Support Urology [facility] Start: 11-06-2019 Influenza vaccination given Sequential Influenza Vaccine (#1) [facility] Start: 11-06-2019 End: 11-06-2019 Procedure visit 11/06/2019 Procedure visit Urology Yan Zuñiga MD [address] [place] [address] [phone] [facility] Start: 10-31-2019 End: 10-31-2019 Hospital Encounter [facility] Comment on above: Nephrolithiasis CYSTOSCOPY,RIGHT RET ROGRADE PYELOGRAM, RIGHT URETEROSOCPY, LASER LITHOTIRIPSY, RIGHT URETERAL STENT PLACEMENT Start: 10-25-2019 End: 10-25-2019 Office Visit 10/25/2019 Office Visit Urology Yan Zuñiga MD [address] [place] [address] [phone] [facility] Start: 10-04-2019 End: 10-04-2019 Office Visit 10/04/2019 Office Visit Urology Yan Zuñiga MD [address] [place] [address] [phone] [facility] Start: 08-13-2019 Microscopic observation Cyto stain Nom (Cvx) PAP SMEAR [facility] Start: 03-22-2019 HIV screening HIV Screening [facility] Start: 03-22-2019 Social Influencers of Health Screening Social Influencers of Health Screening [facility] Start: 11-05-2018 Influenza vaccination given SEQUENTIAL INFLUENZA VACCINE (#1) [facility] Start: 05-04-2018 End: 05-04-2018 Ambulatory 05/04/2018 Office Visit Urology Yan Zuñiga MD [address] [place] [address] [phone] [facility] Start: 04-25-2018 End: 04-25-2018 Ambulatory 04/25/2018 Office Visit Dermatology Randy Taylor MD [address] [place] [address] [phone] Division of Dermatology Start: 04-19-2018 End: 04-19-2018 Office Visit 04/19/2018 Office Visit Obstetrics and Gynecology Spring Harp MD [address] [place] [phone] [facility] Start: 03-22-2018 End: 03-22-2018 Ambulatory 03/22/2018 Initial consult Obstetrics and Gynecology Jet Grant MD [address] [place] [phone] [facility] Start: 02-20-2018 End: 02-20-2018 Ambulatory 02/20/2018 Evaluation Rehabilitation Yan Zuñiga MD [address] [facility] [address] [place] [address] [phone] Anabell Woodson, [facility] Start: 02-08-2018 End: 02-08-2018 Ambulatory 02/08/2018 Office Visit Obstetrics and Gynecology Spring Harp MD [address] [place] [phone] [facility] Start: 02-02-2018 End: 02-02-2018 Ambulatory 02/02/2018 Office Visit Urology Yan Zuñiga MD [address] [place] [address] [phone] [facility] Start: 12-21-2017 End: 12-21-2017 Ambulatory 12/21/2017 Office Visit Obstetrics and Gynecology Yazmin Magallanes, [facility] [address] [place], [place] [phone] [facility] Start: 11-16-2017 End: 11-16-2017 Ambulatory 11/16/2017 Office Visit Obstetrics and Gynecology Pam Burgos MD [address] [place] [phone] [facility] Start: 11-05-2017 Influenza vaccination [facility] Start: 11-05-2017 Influenza vaccination given SEQUENTIAL INFLUENZA VACCINE (#1) [facility] Start: 10-19-2017 PHYSICAL EXAM PHYSICAL EXAM [facility] Work Phone: Start: 10-19-2017 PREVENTATIVE HEALTH VISIT PREVENTATIVE HEALTH VISIT [facility] Start: 10-11-2017 End: 10-11-2017 Ambulatory 10/11/2017 Office Visit Obstetrics and Gynecology Shell Lim MD [address] [place] [phone] [facility] Start: 09-14-2017 End: 09-14-2017 Ambulatory 09/14/2017 Office Visit Obstetrics and Gynecology Marium Reed MD [address] [place] [phone] [facility] Start: 08-16-2017 End: 08-16-2017 Ambulatory 08/16/2017 Clinical Support Obstetrics and Gynecology Shell Lim MD [address] [place] [phone] [facility] Start: 08-10-2017 End: 08-10-2017 Ambulatory 08/10/2017 Clinical Support Obstetrics and Gynecology Spring Harp MD [address] [place] [phone] [facility] Start: 06-29-2017 Ambulatory 06/29/2017 Initial consult Obstetrics and Gynecology Shell Lim MD [address] [place] [phone] [facility] Start: 06-01-2017 Ambulatory 06/01/2017 Appointment Radiology Yuly Jacob CNM [address] [place] [phone] [facility]ated [facility] Ultrasound Start: 02-09-2017 HPV VACCINE (2 - 3-dose series) HPV VACCINE (2 - 3-dose series) [facility] Start: 02-09-2017 HPV Vaccines (2 - 3-dose series) HPV Vaccines (2 - 3-dose series) [facility] Start: 02-09-2017 Vaccination for human papillomavirus [facility] Start: 11-05-2016 Influenza vaccination SEQUENTIAL INFLUENZA VACCINE (#1) [facility] Work Phone: Start: 11-05-2011 PAP TESTING PAP TESTING [facility] Start: 11-05-2011 Screening for malignant neoplasm of cervix [facility] Start: 2009 Hepatitis A (HAV) Vaccine (optional start 19+ years) Hepatitis A (HAV) Vaccine (optional start 19+ years) [facility] Start: 2009 Hepatitis A Vaccines (1 of 2 - Risk 2-dose series) Hepatitis A Vaccines (1 of 2 - Risk 2-dose series) [facility] Start: 2009 Pneumococcal Vaccine: Pediatrics (0 to 5 Years) and At-Risk Patients (6 to 49 Years) (1 of 2 - PCV) Pneumococcal Vaccine: Pediatrics (0 to 5 Years) and At-Risk Patients (6 to 49 Years) (1 of 2 - PCV) [facility] Start: 2009 Urine microalbumin profile DTAP,TDAP,TD (1 - Tdap) [facility] Start: 02-20-2009 Varicella vaccination [facility] Start: 02-20-2009 Varicella vaccine (1 of 2 - 13+ 2-dose series) Varicella vaccine (1 of 2 - 13+ 2-dose series) [facility] Start: 2008 Hepatitis C antibody, confirmatory test Hepatitis C Screening [facility] Start: 2008 HEPATITIS C SCREENING HEPATITIS C SCREENING [facility] Start: 2008 Hepatitis C screening [facility] Start: 2008 HIV SCREENING HIV SCREENING [facility] Start: 2006 COVID-19 Vaccine (1 of 2) COVID-19 Vaccine (1 of 2) [facility] Start: 2006 COVID-19 Vaccine (1) COVID-19 Vaccine (1) [facility] Start: 2005 HIV screening HIV screen [facility] Start: 2002 COVID-19 Vaccine (1) COVID-19 Vaccine (1) [facility] Start: 2002 Depression Monitoring Depression Monitoring [facility] Start: 2002 Depression Screen Depression Screen [facility] Start: 2002 Depression screening using PHQ-9 (Patient Health Questionnaire 9) score [facility] Start: 04-22-1998 Hepatitis B Vaccines (3 of 3 - 3-dose primary series) Hepatitis B Vaccines (3 of 3 - 3-dose primary series) [facility] Start: 1996 Pneumococcal Vaccine: Ped or At-Risk (1 of 2 - PPSV23) Pneumococcal Vaccine: Ped or At-Risk (1 of 2 - PPSV23) [facility] Start: 1996 Pneumococcal Vaccine: Pediatrics (0 to 5 Years) and At-Risk Patients (6 to 64 Years) (1 of 2 - PCV) Pneumococcal Vaccine: Pediatrics (0 to 5 Years) and At-Risk Patients (6 to 64 Years) (1 of 2 - PCV) [facility] Start: 1990 Adult depression screening assessment DEPRESSION SCREENING (PHQ9) [facility] Start: 1990 HEPATITIS B (1 of 3 - 3-dose series) HEPATITIS B (1 of 3 - 3-dose series) [facility] Start: 1990 Hepatitis C antibody, confirmatory test HEPATITIS C VIRUS SCREENING [facility] Start: 1990 Lipid panel Lipid Panel [facility] Start: 1990 Screening for malignant neoplasm of cervix PAP SMEAR [facility] Work Phone: Start: 1990 SUBSTANCE ABUSE SCREENING (AUDIT-C) SUBSTANCE ABUSE SCREENING (AUDIT-C) [facility] Start: 1990 Yearly Adult Physical Yearly Adult Physical [facility] End: 10-25-2020 12 lead ECG ECG 12 Lead ECG Routine Nephrolithiasis 1 Occurrences starting 10/26/2019 until 10/25/2020 [facility] Comment on above: 1 Occurrences starting 10/26/2019 until 10/25/2020 End: 10-24-2020 Bacteria identified Aer cx Nom (Unsp spec) Urine Aerobic Culture Microbiology Routine Microhematuria 1 Occurrences starting 10/25/2019 until 10/24/2020 [facility] Comment on above: 1 Occurrences starting 10/25/2019 until 10/24/2020 Bacteria identified Aer cx Nom (Unsp spec) [facility] End: 11-01-2019 Bacteria identified Aer cx Nom (Unsp spec) Urine Aerobic Culture Microbiology Routine Once for 1 Occurrences starting 11/01/2019 until 11/01/2019 [facility] Comment on above: Once for 1 Occurrences starting 11/01/19 20 until 11/01/2019 End: 2019 Bacteria identified Aer cx Nom (Unsp spec) Urine Aerobic Culture Microbiology Routine Once for 1 Occurrences starting 2019 until 2019 [facility] Comment on above: Once for 1 Occurrences starting 11/04/19 20 until 2019 End: 11-28-2019 Bacteria identified Aer cx Nom (Unsp spec) Urine Aerobic Culture Microbiology Routine Once for 1 Occurrences starting 11/28/2019 until 11/28/2019 [facility] Comment on above: Once for 1 Occurrences starting 11/28/19 until 11/28/2019 Bacteria identified Cx Nom (Bld) [facility] End: 10-04-2021 Bacteria identified in Blood by Culture [employer] Phone: Comment on above: STAT for 1 Occurrences starting 10/05/19 until 10/04/2021 End: 08-20-2021 Bacteria identified in Unspecified specimen by Aerobe culture Urine Aerobic Culture Microbiology Routine Left flank pain 1 Occurrences starting 08/20/2020 until 08/20/2021 [facility] Comment on above: 1 Occurrences starting 08/20/2020 until 08/20/2021 End: 08-26-2020 Bacteria identified in Unspecified specimen by Aerobe culture Urine Aerobic Culture Microbiology Routine Once for 1 Occurrences starting 08/26/2020 until 08/26/2020 [facility] Comment on above: Once for 1 Occurrences starting 08/27/19 21 until 08/26/2020 Bacteria identified in Urine by Culture URINE CULTURE Microbiology STAT 06/01/2021 9:43 PM EDT [facility] End: 06-04-2021 Bacteria identified in Urine by Culture [employer] Phone: Comment on above: Once for 1 Occurrences starting 06/05/19 22 until 06/04/2021 End: 06-05-2021 Bacteria identified in Urine by Culture [employer] Phone: Comment on above: Once for 1 Occurrences starting 06/06/19 until 06/05/2021 End: 10-02-2021 Bacteria identified in Urine by Culture [employer] Work Phone: Comment on above: Once for 1 Occurrences starting 10/03/19 until 10/02/2021 Bacteria identified in Urine by Culture Culture urine Microbiology STAT 10/05/2021 4:42 AM EDT [employer] Work Phone: Bacteria identified in Urine by Culture URINE CULTURE Microbiology Routine Gynecologic exam normal Ordered: 05/06/2022 [facility] Work Phone: Comment on above: Ordered: 05/06/2022 Bacteria identified in Urine by Culture URINE CULTURE Microbiology Routine UTI symptoms Ordered: 06/04/2022 [facility] Work Phone: Comment on above: Ordered: 06/04/2022 Bacteria identified in Urine by Culture URINE CULTURE Microbiology Routine Dysuria Urinary tract infection with hematuria, site unspecified Ordered: 06/09/2022 [facility] Work Phone: Comment on above: Ordered: 06/09/2022 Bacteria identified in Urine by Culture URINE CULTURE Microbiology Routine Contamination of urine culture 06/16/2022 6:03 PM EDT [facility] Work Phone: Bacteria identified in Urine by Culture URINE CULTURE Microbiology Routine Dysuria Ordered: 06/28/2022 [facility] Work Phone: Comment on above: Ordered: 06/28/2022 Bacteria identified in Urine by Culture URINE CULTURE Microbiology Routine Increased urinary frequency 01/13/2023 8:36 AM EST [facility] Work Phone: Bacteria identified in Urine by Culture Culture urine Microbiology Routine Dysuria 12/15/2023 3:22 PM EDT [employer] End: 03-19-2024 Bacteria identified in Urine by Culture [facility] Work Phone: Comment on above: Once (Lab) for 1 Occurrences starting until 03/19/2024 Bacteria identified in Urine by Culture BACTERIAL CULTURE, URINE Microbiology Routine Dysuria 04/14/2024 1:06 PM EST [facility] Bacteria identified in Urine by Culture Urine culture Microbiology Routine Dysuria Ordered: 06/30/2024 [facility] Comment on above: Ordered: 06/30/2024 BACTERIAL VAGINOSIS AMPLIFICATION BACTERIAL VAGINOSIS AMPLIFICATION Lab Routine Gynecologic exam normal Ordered: 05/06/2022 [facility] Work Phone: Comment on above: Ordered: 05/06/2022 BACTERIAL VAGINOSIS AMPLIFICATION BACTERIAL VAGINOSIS AMPLIFICATION Lab Routine Possible exposure to STD Ordered: 06/04/2022 [facility] Work Phone: Comment on above: Ordered: 06/04/2022 BACTERIAL VAGINOSIS AMPLIFICATION BACTERIAL VAGINOSIS AMPLIFICATION Lab Routine Screening for STD (sexually transmitted disease) 06/09/2022 2:56 PM EDT [facility] Work Phone: BACTERIAL VAGINOSIS AMPLIFICATION BACTERIAL VAGINOSIS AMPLIFICATION Lab Routine Dysuria Ordered: 06/28/2022 [facility] Work Phone: Comment on above: Ordered: 06/28/2022 BACTERIAL VAGINOSIS AMPLIFICATION BACTERIAL VAGINOSIS AMPLIFICATION Lab Routine Acute vaginitis Ordered: 07/30/2022 [facility] Work Phone: Comment on above: Ordered: 07/30/2022 Bacterial vaginosis and vaginitis DNA panel - Vaginal fluid by Probe with signal amplification Vaginitis pathogens molecular study Microbiology Routine Dysuria 12/15/2023 3:22 PM EDT [facility] Work Phone: BACTERIAL VAGINOSIS NAAT BACTERI AL VAGINOSIS NAAT Lab Routine Vaginal discharge 01/13/2023 8:36 AM EST [facility] Work Phone: BACTERIAL VAGINOSIS NAAT BACTERI AL VAGINOSIS NAAT Lab Routine Gynecologic exam normal Ordered: 05/12/2023 [facility] Work Phone: Comment on above: Ordered: 05/12/2023 BACTERIAL VAGINOSIS NAAT BACTERI AL VAGINOSIS NAAT Lab Routine Vaginal discharge 04/14/2024 1:03 PM EST [facility] BV Smear Dada Scor e w/ Yeast Culture ([facility]) BV Smear Dada Score w/ Yeast Culture ([facility]) Microbiology Routine Vaginal itching Ordered: 06/30/2024 [facility] Work Phone: Comment on above: Ordered: 06/30/2024 ESTHELA / TRICHOMONA S AMPLIFICATION ESTHELA / TRICHOMONAS AMPLIFICATION Microbiology Routine Gynecologic exam normal Ordered: 05/06/2022 [facility] Work Phone: Comment on above: Ordered: 05/06/2022 ESTHELA / TRICHOMONA S AMPLIFICATION ESTHELA / TRICHOMONAS AMPLIFICATION Microbiology Routine Possible exposure to STD Ordered: 06/04/2022 [facility] Work Phone: Comment on above: Ordered: 06/04/2022 ESTHELA / TRICHOMONA S AMPLIFICATION ESTHELA / TRICHOMONAS AMPLIFICATION Microbiology Routine Screening for STD (sexually transmitted disease) 06/09/2022 2:56 PM EDT [facility] Work Phone: ESTHELA / TRICHOMONA S AMPLIFICATION ESTHELA / TRICHOMONAS AMPLIFICATION Microbiology Routine Dysuria Ordered: 06/28/2022 [facility] Work Phone: Comment on above: Ordered: 06/28/2022 ESTHELA / TRICHOMONA S AMPLIFICATION ESTHELA / TRICHOMONAS AMPLIFICATION Microbiology Routine Acute vaginitis Ordered: 07/30/2022 [facility] Work Phone: Comment on above: Ordered: 07/30/2022 ESTHELA/TRICHOMONAS NAAT ESTHELA /TRICHOMONAS NAAT Lab Routine Vaginal discharge 01/13/2023 8:36 AM [facility] Work Phone: ESTHELA/TRICHOMONAS NAAT ESTHELA /TRICHOMONAS NAAT Lab Routine Gynecologic exam normal Ordered: 05/12/2023 [facility] Work Phone: Comment on above: Ordered: 05/12/2023 ESTHELA/TRICHOMONAS NAAT ESTHELA /TRICHOMONAS NAAT Lab Routine Vaginal discharge 04/14/2024 1:03 PM [facility] End: 09-17-2023 CBC W Auto Differential panel - Blood CBC with Differential Lab STAT STAT (Lab) for 1 Occurrences starting 09/17/2023 until 09/17/2023 [facility] Work Phone: Comment on above: STAT (Lab) for 1 Occurrences starting until 09/17/2023 End: 03-16-2024 CBC W Auto Differential panel - Blood CBC and Auto Differential Lab STAT STAT (Lab) for 1 Occurrences starting 03/16/2024 until 03/16/2024 [facility] Work Phone: Comment on above: STAT (Lab) for 1 Occurrences starting until 03/16/2024 End: 04-21-2024 CBC W Auto Differential panel - Blood CBC and Auto Differential Lab Routine Morning draw (Lab) for 1 Occurrences starting 04/21/2024 until 04/21/2024 [facility] Work Phone: Comment on above: Morning draw (Lab) for 1 Occurrences sta rting 04/21/2024 until 04/21/2024 End: 11-28-2019 Chlamydia trachomatis rRNA assay Chlamydia/GC/Trichomona s Amplified RNA Microbiology Routine Once for 1 Occurrences starting 11/28/2019 until 11/28/2019 [facility] Comment on above: Once for 1 Occurrences starting 11/28/19 20 until 11/28/2019 Chlamydia trachomati s rRNA assay Chlamydia/GC/Trichomona s Amplified RNA Microbiology Routine 11/28/2019 9:40 PM EDT [facility] Chlamydia trachomatis+Neisseria gonorrhoeae DNA [Presence] in Unspecified specimen by MARY with probe detection GC/CHLAMYDIA DNA DET Lab Routine Screening for STD (sexually transmitted disease) 06/09/2022 2:56 PM EDT [facility] Work Phone: Chlamydia trachomatis+Neisseria gonorrhoeae DNA [Presence] in Unspecified specimen by MARY with probe detection GONORRHEA/CHLAMYDIA NAAT Lab Routine Vaginal itching Screen for STD (sexually transmitted disease) 04/18/2023 11:52 AM [facility] Work Phone: Chlamydia trachomatis+Neisseria gonorrhoeae DNA [Presence] in Unspecified specimen by MARY with probe detection GONORRHEA/CHLAMYDIA NAAT Lab Routine Dysuria Vaginal discharge 04/14/2024 1:03 PM [facility] End: 02-22-2017 Chlamydia/GC/Trichomonas Amplified RNA Chlamydia/GC/Trichomona s Amplified RNA Routine Once for 1 Occurrences starting 02/22/2017 until 02/22/2017 [facility] Work Phone: Chlamydia/GC/Trichom onas Amplified RNA Chlamydia/GC/Trichomona s Amplified RNA Routine 02/22/2017 8:58 PM EST [facility] Work Phone: End: 02-22-2017 Chlamydia/Gonorrhoeae Amplified RNA Chlamydia/Gonorrhoeae Amplified RNA Routine Once for 1 Occurrences starting 02/22/2017 until 02/22/2017 [facility] Work Phone: Chlamydia/Gonorrhoea e Amplified RNA Chlamydia/Gonorrhoeae Amplified RNA Routine 02/22/2017 8:58 PM EST [facility] Work Phone: End: 01-10-2023 Choriogonadotropin ( test) [Presence] in Urine hCG, Urine, Qualitative Lab STAT Once (Lab) for 1 Occurrences starting 01/10/2023 until 01/10/2023 [facility] Work Phone: Comment on above: Once (Lab) for 1 Occurrences starting until 01/10/2023 End: 03-16-2024 Choriogonadotropin ( test) [Presence] in Urine [facility] Work Phone: Comment on above: STAT (Lab) for 1 Occurrences starting until 03/16/2024 Clostridioides diffi cile toxin genes [Presence] in Stool by MARY with probe detection C. DIFFICILE PCR Lab Routine Diarrhea, unspecified type Ordered: 04/20/2023 [facility] Work Phone: Comment on above: Ordered: 04/20/2023 End: 09-17-2023 Comprehensive metabolic 2000 panel - Serum or Plasma Comprehensive Metabolic Panel Lab STAT STAT (Lab) for 1 Occurrences starting 09/17/2023 until 09/17/2023 [facility] Work Phone: Comment on above: STAT (Lab) for 1 Occurrences starting until 09/17/2023 End: 03-16-2024 Comprehensive metabolic 2000 panel - Serum or Plasma Comprehensive metabolic panel Lab STAT STAT (Lab) for 1 Occurrences starting 03/16/2024 until 03/16/2024 [facility] Work Phone: Comment on above: STAT (Lab) for 1 Occurrences starting until 03/16/2024 End: 04-21-2024 Comprehensive metabolic 2000 panel - Serum or Plasma Comprehensive Metabolic Panel Lab Routine Morning draw (Lab) for 1 Occurrences starting 04/21/2024 until 04/21/2024 [facility] Work Phone: Comment on above: Morning draw (Lab) for 1 Occurrences sta rting 04/21/2024 until 04/21/2024 End: 11-20-2023 CT Abdomen and Pelvis W contrast IV CT ABDOMEN PELVIS W IV CONTRAST Additional Contrast? None Imaging STAT Once for 1 Occurrences starting 11/20/2023 until 11/20/2023 [facility] Comment on above: Once for 1 Occurrences starting 11/20/19 until 11/20/2023 End: 01-10-2023 CT Cervical spine WO contrast CT cervical spine wo IV contrast Imaging STAT Once for 1 Occurrences starting 01/10/2023 until 01/10/2023 [facility] Work Phone: Comment on above: Once for 1 Occurrences starting 01/11/20 until 01/10/2023 End: 01-10-2023 CT Head WO contrast CT head wo IV contrast Imaging STAT Once for 1 Occurrences starting 01/10/2023 until 01/10/2023 [facility] Work Phone: Comment on above: Once for 1 Occurrences starting 01/11/20 until 01/10/2023 End: 11-20-2023 CT Lumbar spine WO contrast CT LUMBAR SPINE WO CONTRAST Imaging STAT Once for 1 Occurrences starting 11/20/2023 until 11/20/2023 [facility] Comment on above: Once for 1 Occurrences starting 11/20/19 until 11/20/2023 End: 01-10-2023 CTA Neck vessels WO and W contrast IV CT angio neck w and wo IV contrast Imaging Routine Once for 1 Occurrences starting 01/10/2023 until 01/10/2023 [facility] Work Phone: Comment on above: Once for 1 Occurrences starting 01/11/20 until 01/10/2023 ECG 12 lead ECG 12 lead ECG STAT 08/17/2021 1:09 PM EDT [facility] Work Phone: End: 03-31-2023 ECG 12 lead [facility] Work Phone: Comment on above: Once for 1 Occurrences starting 03/31/19 until 03/31/2023 End: 09-17-2023 ECG 12 lead ECG 12 lead ECG STAT Every 1 hour for 2 Occurrences starting 09/17/2023 until 09/17/2023 [facility] Work Phone: Comment on above: Every 1 hour for 2 Occurrences starting 09/17/2023 until 09/17/2023 End: 04-20-2024 ECG 12 lead [facility] Work Phone: Comment on above: Once for 1 Occurrences starting 04/20/19 until 04/20/2024 As needed until disc ontinued starting 04/20/2024 End: 04-21-2024 ECG 12 lead [facility] Work Phone: Comment on above: Once for 1 Occurrences starting 04/21/19 until 04/21/2024 End: 04-22-2024 ECG 12 lead [facility] Work Phone: Comment on above: Once for 1 Occurrences starting 04/22/19 until 04/22/2024 End: 05-10-2024 Echocardiography ECHO Cardiology Routine Atypical chest pain Abnormal EKG 1 Occurrences starting 05/11/2023 until 05/10/2024 [facility] Work Phone: Comment on above: 1 Occurrences starting 05/11/2023 until 05/10/2024 End: 04-20-2024 EGD DIAGNOSTIC EGD DIAGNOSTIC Endoscopy Routine Nausea and vomiting, unspecified vomiting type 1 Occurrences starting 04/20/2023 until 04/20/2024 [facility] Work Phone: Comment on above: 1 Occurrences starting 04/20/2023 until 04/20/2024 Electrocardiogram, 1 2 lead Electrocardiogram, 12 lead ECG STAT 05/26/2021 10:38 AM EDT [facility] Work Phone: End: 01-18-2023 Electrocardiogram, 12-lead [facility] Work Phone: Comment on above: As needed until discontinued starting Once for 1 Occurrenc es starting 01/18/2023 until 01/18/2023 ENTERIC BACTERIAL PA JACE BY PCR ENTERIC BACTERIAL PANEL BY PCR Lab Routine Diarrhea, unspecified type Ordered: 04/20/2023 [facility] Work Phone: Comment on above: Ordered: 04/20/2023 EXTRA MICRO EXTRA MICRO Flui ds STAT 06/01/2021 9:[address] [facility] End: 03-16-2024 Extra Urine Mcgowan Tube Extra Urine [facility] Lab Timed Once for 1 Occurrences starting 03/16/2024 until 03/16/2024 [facility] Work Phone: Comment on above: Once for 1 Occurrences starting 03/16/19 until 03/16/2024 End: 03-19-2024 Extra Urine Mcgowan Tube [facility] Work Phone: Comment on above: Once for 1 Occurrences starting 03/19/19 until 03/19/2024 End: 04-22-2024 Extra Urine Mc[place]an Tube [facility] Work Phone: Comment on above: Once for 1 Occurrences starting 04/22/19 until 04/22/2024 End: 04-20-2024 Flexible sigmoidoscopy study COLONOSCOPY DIAGNOSTIC Endoscopy Routine Diarrhea, unspecified type 1 Occurrences starting 04/20/2023 until 04/20/2024 [facility] Work Phone: Comment on above: 1 Occurrences starting 04/20/2023 until 04/20/2024 End: 12-07-2018 Gastrointestinal pathogens DNA and RNA panel - Stool by MARY with non-probe detection Stool/GI PCR Panel (Includes Ova and Parasites) Microbiology Routine Once for 1 Occurrences starting 12/07/2018 until 12/07/2018 [facility] Comment on above: Once for 1 Occurrences starting 12/08/19 19 until 12/07/2018 Gastrointestinal pathogens DNA and RNA panel - Stool by MARY with non-probe detection Stool/GI PCR Panel (Includes Ova and Parasites) Microbiology Routine 12/07/2018 9:45 PM EDT [facility] GOLD TOP TUBE GOLD TOP TUBE La b STAT 06/01/2021 9:36 PM EDT [facility] Kidney Stone Analysis [facility] Comment on above: Release Upon Ordering for 1 Occurrences starting 10/31/2019 LAVENDER TOP TUBE LAVENDER TOP T UBE Lab STAT 06/01/2021 9:36 PM EDT [facility] LT BLUE TOP TUBE LT BLUE TOP TUB E Lab STAT 06/01/2021 9:36 PM EDT [facility] End: 04-21-2024 Magnesium [Mass/volume] in Serum or Plasma Magnesium Lab Routine Morning draw (Lab) for 1 Occurrences starting 04/21/2024 until 04/21/2024 [facility] Work Phone: Comment on above: Morning draw (Lab) for 1 Occurrences sta rting 04/21/2024 until 04/21/2024 End: 12-07-2018 Microscopic observation Gram stain Nom (Unsp spec) Gram Stain (Fecal Leukocytes) Microbiology Routine Once for 1 Occurrences starting 12/07/2018 until 12/07/2018 [facility] Comment on above: Once for 1 Occurrences starting 12/08/19 19 until 12/07/2018 Microscopic observat ion Gram stain Nom (Unsp spec) Gram Stain (Fecal Leukocytes) Microbiology Routine 12/07/2018 9:45 PM EDT [facility] Mint Green Top Mint Green Top S TAT 08/03/2017 5:09 PM EDT [facility] End: 11-28-2019 Neisseria gonorrhoeae nucleic acid detection Chlamydia/Gonorrhoeae Amplified RNA Microbiology Routine Once for 1 Occurrences starting 11/28/2019 until 11/28/2019 [facility] Comment on above: Once for 1 Occurrences starting 11/28/19 20 until 11/28/2019 Neisseria gonorrhoea e nucleic acid detection Chlamydia/Gonorrhoeae Amplified RNA Microbiology Routine 11/28/2019 9:40 PM EDT [facility] End: 07-04-2020 NM Gastric Emptying NM Gastric Emptying Imaging ELIGIO One time imaging One time imaging for 1 Occurrences starting 07/04/2020 until 07/04/2020 [facility] Comment on above: One time imaging One time imaging for 1 Occurrences starting 07/04/2020 until 07/04/2020 End: 06-23-2024 NM Stomach Views for gastric emptying solid phase W radionuclide PO NM GASTRIC EMPTYING SOLID Radiology Routine Nausea 1 Occurrences starting 05/25/2023 until 06/23/2024 [facility] Work Phone: Comment on above: 1 Occurrences starting 05/25/2023 until 06/23/2024 PAP FLUID CERVICAL SCREENING PAP FLUID CERVICAL SCREENING Lab Routine Encounter for screening for malignant neoplasm of cervix Gynecologic exam normal Ordered: 05/06/2022 [facility] Work Phone: Comment on above: Ordered: 05/06/2022 POC Urine POC Urine Pr egnancy ELIGIO 05/24/2017 9:49 PM EDT [facility] End: 09-17-2023 Prothrombin time (PT) Protime-INR Lab STAT STAT (Lab) for 1 Occurrences starting 09/17/2023 until 09/17/2023 [facility] Work Phone: Comment on above: STAT (Lab) for 1 Occurrences starting until 09/17/2023 Archer Draw Archer Draw STA T 08/03/2017 5:09 PM EDT [facility] RAINBOW DRAW RAINBOW DRAW Lab STAT 06/01/2021 9:36 PM EDT [facility] End: 10-04-2021 SARS-CoV-2 (COVID-19) RNA [Presence] in Respiratory specimen by MARY with probe detection Rapid [id number], molecular Microbiology STAT Once for 1 Occurrences starting 10/04/2021 until 10/04/2021 [facility] Comment on above: Once for 1 Occurrences starting 10/05/19 until 10/04/2021 End: 06-01-2021 Standard ECG [facility] Work Phone: Comment on above: One Time for 1 Occurrences starting 05/06 until 06/01/2021 End: 02-22-2017 Trichomonas vaginalis Amplified RNA Trichomonas vaginalis Amplified RNA Routine Once for 1 Occurrences starting 02/22/2017 until 02/22/2017 [facility] Work Phone: Trichomonas vaginali s Amplified RNA [facility] Work Phone: End: 11-28-2019 Trichomonas vaginalis Amplified RNA Trichomonas vaginalis Amplified RNA Microbiology Routine Once for 1 Occurrences starting 11/28/2019 until 11/28/2019 [facility] Comment on above: Once for 1 Occurrences starting 11/28/19 20 until 11/28/2019 End: 09-17-2023 Troponin I.cardiac panel - Serum or Plasma by High sensitivity method [facility] Work Phone: Comment on above: STAT (Lab) for 1 Occurrences starting until 09/17/2023 Once for 1 Occurrenc es starting 09/17/2023 until 09/17/2023 UA DIP, URINE (POC) UA DIP, URIN E (POC) Lab Routine Dysuria Ordered: 04/14/2024 [facility] Work Phone: Comment on above: Ordered: 04/14/2024 End: 03-16-2024 Urinalysis complete W Reflex Culture panel - Urine [facility] Work Phone: Comment on above: STAT (Lab) for 1 Occurrences starting until 03/16/2024 Once for 1 Occurrenc es starting 03/16/2024 until 03/16/2024 End: 03-19-2024 Urinalysis complete W Reflex Culture panel - Urine [facility] Work Phone: Comment on above: STAT (Lab) for 1 Occurrences starting until 03/19/2024 End: 04-22-2024 Urinalysis complete W Reflex Culture panel - Urine [facility] Work Phone: Comment on above: Once (Lab) for 1 Occurrences starting until 04/22/2024 Urinalysis with refl ex to microscopy and culture URINE DIPSTICK; REFLEX MICROSCOPY; REFLEX CULTURE Fluids STAT 06/01/2021 9:[address] [facility] Urine test visual color cmprsn meths HCG QUAL UR B/O Lab Routine Dysuria Ordered: 04/14/2024 [facility] Comment on above: Ordered: 04/14/2024 End: 11-26-2022 Us transvaginal US FEMALE PELVIS TRANSVAG Radiology STAT Pelvic pain in female Abnormal uterine bleeding (AUB) 1 Occurrences starting 10/27/2021 until 11/26/2022 [facility] Work Phone: Comment on above: 1 Occurrences starting 10/27/2021 until 11/26/2022 End: 09-17-2023 XR Chest Single view [facility] Work Phone: Comment on above: Once for 1 Occurrences starting 09/17/19 until 09/17/2023 End: 07-24-2024 XR Finger - left 2 Views [facility] Comment on above: Once for 1 Occurrences starting 07/25/19 until 07/24/2024 [facility] Immunizations Immunization Date Immunization Notes Care Provider Rodrigo garcia 11-16-2023 influenza, seasonal, injectable, preservative free Lucille Reddy NP Work Phone: [facility] 07-15-2022 COVID-19 vaccine, ag e 12+ yr, bivalent (PFIZER-BIONTECH) Madi Stuart MD Work Phone: [facility] 01-30-2021 influenza nasal, unspecified formulation Marky Castorena MD Work Phone: [facility] 01-30-2021 influenza, injectabl e, quadrivalent, preservative free Alex Fagan MD Work Phone: [facility] 01-30-2021 influenza virus vacc ine, unspecified formulation Basia Zabetiabi DO Work Phone: [facility] 01-25-2021 Pfizer Monovalent (1 2+ yrs) SARS-COV-2 (COVID-19) vaccine, mRNA, spike protein, LNP, pres. free, 30 mcg/0.3mL dose (ZYY=178) Shara Nolen PharmD [facility] 07-21-2020 COVID-19 vaccine, MR NA, Pfizer, 0.3 ML Alex Fagan MD Work Phone: [facility] 06-30-2020 COVID-19 vaccine, MR MARGO, Pfizer, 0.3 ML Alex Fagan MD Work Phone: [facility] 12-25-2019 influenza, injectabl e, quadrivalent, preservative free Jakub Chase [facility] 03-19-2019 influenza, injectabl e, quadrivalent, preservative free Alex Fagan MD Work Phone: [facility] 03-19-2019 influenza, seasonal, injectable, preservative free Lon Good RN [facility] 08-13-2017 tetanus toxoid, redu omari diphtheria toxoid, and acellular pertussis vaccine, adsorbed; Translations: [TDAP] Kina Smith [facility] 01-12-2017 human papilloma viru s vaccine, quadrivalent Antwan Yeung [facility] 01-12-2017 HPV, unspecified formulation Mustapha Padilla DO Work Phone: [facility] 01-22-2015 tetanus toxoid, redu omari diphtheria toxoid, and acellular pertussis vaccine, adsorbed Antwan Yeung [facility] 11-05-2014 tetanus toxoid, redu omari diphtheria toxoid, and acellular pertussis vaccine, adsorbed Antwan Yeung [facility] 01-23-2009 influenza nasal, unspecified formulation Madi Stuart MD Work Phone: [facility] 01-23-2009 novel Influenza-H1N1 -09, live virus for nasal administration [facility] 01-23-2009 influenza virus vacc ine, unspecified formulation Marium Doty [facility] Work Phone: 07-28-2005 hepatitis B vaccine, unspecified formulation Lon Good RN [facility] 10-22-2003 measles, mumps and rubella virus vaccine Lon Good RN [facility] 01-31-1998 hepatitis B vaccine, pediatric or pediatric/adolescent dosage [facility] 12-31-1997 hepatitis B vaccine, pediatric or pediatric/adolescent dosage [facility] Payers Date Payer Category Payer Medicaid HMO [id number] 2023 Unknown [id number] 2019 Unknown [employer] [id number] 2019-Present [id number] 2016 Medicaid (Managed Care) [facility] AGED BLIND AND DISABLED [id number] 2016 Unknown [id number] 2015 Medicaid [id number] 2015 Medicaid [id number] 2.16.840.1.138580.3.249.13 2015 Medicaid [id number]. [id number] 2015 Medicaid [id number] [id number]. [id number] 2015 Unknown [id number]. 1.13.172.2. [id number] 1990 Unknown [id number] 2.840.1.767395.3.579.2. 900 1990 Unknown [id number] 2.840.1.454516.3.579.2. 1143 1990 Unknown [id number] 2.840.1.049018.3.579.2. 903 1990 Unknown [id number] 2.840.1.617514.3.579.2. 903 1990 Unknown [id number] 2.840.1.031016.3.579.2. 903 1990 Unknown [id number] 2840.1.093317.3.579.2. 594 1990 Unknown [id number] 2.840.1.130987.3.579.2. 594 1990 Unknown [id number] 2.840.1.356279.3.579.2. 594 1990 Unknown [id number] 2.840.1.998753.3.579.2. 594 1990 Unknown [id number] 2.840.1.536693.3.579.2. 594 1990 Unknown [id number] 2.16.840.1.535625.3.579.2. 594 1990 Unknown [id number] 2.16.840.1.583536.3.579.2. 594 1990 Unknown [id number] 2.16.840.1.945650.3.579.2. 594 1990 Unknown [id number] 2.16.840.1.722917.3.579.2. 594 1990 Unknown [id number] 2.16.840.1.586800.3.579.2. 594 1990 Unknown [id number] 2.16.840.1.741691.3.579.2. 1143 1990 Unknown [id number] 2.16.840.1.886735.3.579.2. 1143 1990 Unknown [id number] 2.16840.1.950459.3.579.2. 1143 1990 Unknown [id number] 2.16.840.1.909217.3.579.2. 1143 1990 Unknown [id number] 2.16840.1.097783.3.579.2. 1143 1990 Unknown [id number] 2.16840.1.529007.3.579.2. 902 1990 Unknown [id number] 2.16840.1.969784.3.579.2. 900 1990 Unknown [id number] 2.16.840.1.640848.3.579.2. 900 1990 Unknown [id number] 2.16.840.1.301862.3.579.2. 900 1990 Unknown [id number] 2.16.840.1.708349.3.579.2. 900 1990 Unknown [id number] 2.16.840.1.983100.3.579.2. 900 1990 Unknown [id number] 2.16.840.1.780318.3.579.2. 2 1990 Unknown [id number] 2.16.840.1.681339.3.579.2. 1990 Unknown [id number] 2.16.840.1.887448.3.579.2. 1990 Unknown [id number] 2.16.840.1.546654.3.579.2. 1990 Unknown [id number] 2.16.840.1.502653.3.579.2. 1990 Unknown [id number] 2.16.840.1.868583.3.579.2. 1990 Unknown [id number] 2.16.840.1.143101.3.579.2. 1068 1990 Unknown [id number] 2.16840.1.843434.3.579.2. 1068 1990 Unknown [id number] 2.16.840.1.215254.3.579.2. 1068 1990 Unknown [id number] 2.16.840.1.631141.3.579.2. 1068 1990 Unknown [id number] 2.16.840.1.245513.3.579.2. 1068 1990 Unknown [id number] 2.16.840.1.261913.3.579.2. 1068 1990 Unknown [id number] 2.16.840.1.824744.3.579.2. 1068 1990 Unknown [id number] 2.16.840.1.001274.3.579.2. 1068 1990 Unknown [id number] 2.16.840.1.030354.3.579.2. 1068 1990 Unknown [id number] 2.16.840.1.981853.3.579.2. 1068 1990 Unknown [id number] 2.16.840.1.465488.3.579.2. 1068 1990 Unknown [id number] 2.16.840.1.306061.3.579.2. 1068 1990 Unknown [id number] 2.16.840.1.485639.3.579.2. 1068 1990 Unknown [id number] 2.16.840.1.066517.3.579.2. 1068 1990 Unknown [id number] 2.16.840.1.408765.3.579.2. 1068 1990 Unknown [id number] 2.16.840.1.729536.3.579.2. 1068 1990 Unknown [id number] 2.16840.1.886104.3.579.2. 1068 1990 Unknown [id number] 2.16840.1.872640.3.579.2. 1068 1990 Unknown [id number] 2.16840.1.098669.3.579.2. 1068 1990 Unknown [id number] 2.16.840.1.811536.3.579.2. 1068 1990 Unknown [id number] 2.16.840.1.798024.3.579.2. 1068 1990 Unknown [id number] 2.16840.1.385423.3.579.2. 1068 1990 Unknown [id number] 2.16.840.1.752308.3.579.2. 1248 1990 Unknown [id number] 2.16.840.1.510783.3.579.2. 1990 Unknown [id number] 2.16.840.1.941517.3.579.2. 1990 Unknown [id number] 2.16.840.1.941811.3.579.2. 2 1990 Unknown [id number] 2.16.840.1.828017.3.579.2. 732 1990 Unknown [id number] 2.16.840.1.208442.3.579.2. 732 1990 Unknown [id number] 2.16.840.1.395831.3.579.2. 73 1990 Unknown [id number] 2.16.840.1.781079.3.579.2. 73 1990 Unknown [id number] 2.16840.1.049668.3.579.2. 73 1990 Unknown [id number] 2.16840.1.100374.3.579.2. 732 1990 Unknown [id number] 2.840.1.095752.3.579.2. 1242 1990 Unknown [id number] 2.840.1.124225.3.579.2. 1242 1990 Unknown [id number] 2.16840.1.874119.3.579.2. 1242 1990 Unknown [id number] 2.16840.1.191693.3.579.2. 124 1990 Unknown [id number] 2.16840.1.427205.3.579.2. 124 1990 Unknown [id number] 2.16840.1.993522.3.579.2. 124 1990 Unknown [id number] 2.16840.1.312272.3.579.2. 124 1990 Unknown [id number] 2.16840.1.478616.3.579.2. 1243 1990 Unknown [id number] 2.16840.1.593370.3.579.2. 124 1990 Unknown [id number] 2.16.840.1.023071.3.579.2. 1243 1990 Unknown [id number] 2.16.840.1.340658.3.579.2. 1243 1990 Unknown [id number] 2.16.840.1.818460.3.579.2. 1243 1990 Unknown [id number] 2.16.840.1.052458.3.579.2. 1143 1990 Unknown [id number] 2.16.840.1.078759.3.579.2. 1143 1990 Unknown [id number] 2.16840.1.394815.3.579.2. 204 1990 Unknown [id number] 2.16840.1.713470.3.579.2. 204 1990 Unknown [id number] 2.16840.1.704508.3.579.2. 204 1990 Unknown [id number] 2.16840.1.790496.3.579.2. 204 1990 Unknown [id number] 2.16840.1.296489.3.579.2. 204 1990 Unknown [id number] 2.16840.1.614114.3.579.2. 204 1990 Unknown [id number] 2.16840.1.927377.3.579.2. 204 1990 Unknown [id number] 2.16840.1.555670.3.579.2. 159 1990 Unknown [id number] 2.16840.1.686541.3.579.2. 159 1990 Unknown [id number] 2.16840.1.237168.3.579.2. 1243 1990 Unknown [id number] 2.16840.1.749744.3.579.2. 1243 1990 Unknown [id number] 2.16840.1.621919.3.579.2. 1243 1990 Unknown [id number] 2.16.840.1.545235.3.579.2. 1243 1990 Unknown [id number] 2.16.840.1.038052.3.579.2. 1243 1990 Unknown [id number] 2.16.840.1.966722.3.579.2. 1243 Social History Date Type Detail Facility Start: 08-03-2017 End: 07-23-2024 Tobacco smoking status NHIS Never smoker [facility] Work Phone: Start: 1990 Sex Assigned At Not on file [facility] Work Phone: Start: 11-16-2018 End: 06-01-2021 Alcohol intake Current non-drinker of alcohol (finding) [facility] Start: 05-05-2021 End: 04-22-2024 Exposure to SARS-CoV-2 (event) Not sure [facility] Start: 10-25-2019 End: 07-23-2024 Tobacco use and exposure Never used [facility] Start: 05-22-2021 Tobacco smoking stat us ALIS Smokes tobacco daily [facility] History of tobacco use Cigarette Smoker [facility] Start: 05-22-2021 End: 04-14-2024 Alcohol intake Current drinker of alcohol (finding) [facility] Start: 04-21-2021 History SDOH Alcohol Comment occasional [facility] Start: 1990 Sex Assigned At Female [facility] Exposure to SARS-CoV -2 (event) Unable to assess [facility] Start: 08-19-2021 End: 03-31-2023 Tobacco smoking status NHIS Ex-smoker [facility] Start: 08-19-2021 End: 06-14-2024 Cigarette pack-years [facility] Start: 05-24-2021 End: 10-27-2021 History SDOH Alcohol Comment occ [facility] Start: 11-05-2021 Tobacco smoking stat us ALIS Tobacco smoking consumption unknown [facility] Start: 10-28-2021 History SDOH Alcohol Frequency 98 [facility] Start: 10-28-2021 History SDOH Social Connections Phone 5 [facility] Start: 10-28-2021 History SDOH Social Connections Spiritism 3 [facility] Start: 10-28-2021 History SDOH Social Connections Membership 2 [facility] Start: 10-28-2021 History SDOH Stress 1 [facility] Start: 03-12-2022 End: 06-11-2024 Alcohol intake Ex-drinker (finding) [facility] Start: 01-14-2022 Alcohol Comment rarely [facility] Start: 04-20-2021 Gender identity Identifies as female gender (finding) [facility] Start: 04-20-2021 Sexual orientation Heterosexua l (finding) [facility] Start: 08-31-2022 Tobacco Comment Smokes marijuana [facility] Start: 10-28-2021 End: 06-14-2024 Social connection and isolation panel [facility] Do you belong to any clubs or organizations such as moravian groups, unions, fraternal or athletic groups, or school groups? No [facility] How often do you att end meetings of the clubs or organizations you belong to? Patient refused [facility] Are you now , , , , never or living with a partner? Refused [facility] Do you feel stress - tense, restless, nervous, or anxious, or unable to sleep at night because your mind is troubled all the time - these days [OSQ] Not at all [facility] (I/We) worried wheth er (my/our) food would run out before (I/we) got money to buy more. Never true [facility] Start: 02-16-2023 Sexual orientation Choose not to disclose [facility] History of tobacco use Current smoker [facility] Work Phone: Start: 03-31-2023 Tobacco use and exposure Former smokeless tobacco user [facility] Work Phone: Are you now , , , , never or living with a partner? Never [facility] How hard is it for y ou to pay for the very basics like food, housing, medical care, and heating Somewhat hard [facility] Do you feel stress - tense, restless, nervous, or anxious, or unable to sleep at night because your mind is troubled all the time - these days [OSQ] Very much [facility] (I/We) worried wheth er (my/our) food would run out before (I/we) got money to buy more. Sometimes true [facility] Start: 08-18-2023 Education 12 [facility] Start: 12-15-2023 Tobacco smoking stat us NHIS Occasional tobacco smoker [facility] Start: 12-15-2023 Alcohol Comment ocasionally [facility] How often to you hav e a drink containing alcohol? Never [facility] How hard is it for y ou to pay for the very basics like food, housing, medical care, and heating Not very hard [facility] Work Phone: Start: 05-10-2024 Sex Female (finding) [facility] Are you now , , , , never or living with a partner? Living with partner [facility] How hard is it for y ou to pay for the very basics like food, housing, medical care, and heating Very hard [facility] Do you feel stress - tense, restless, nervous, or anxious, or unable to sleep at night because your mind is troubled all the time - these days [OSQ] Only a little [facility] At any time in the p ast 12 months, were you homeless or living in detention [including now]? Yes [facility] How often do you nee d to have someone help you when you read instructions, pamphlets, or other written material from your doctor or pharmacy [SILS] Often [facility] Start: 07-23-2024 End: 07-25-2024 Alcoholic beverage intake Lifetime non-drinker (finding) [facility] NEGATED: Highlighted rowStart: NINF History of tobacco use Passive smoker [facility] Medical Equipment Procedure Code Equipment Code Equipment Origin al Text Equipment Identifier Dates Stent 6fr X 24cm Ureter W/O Wire - [id number] , [id number], [id number] FDA Start: 10-31-2019 Functional Status Date Assessment Result Facility 07-23-2024 Total score [AUDIT-C] 0 07/24/19 25 6:33 PM Romeo Montes De Oca RN [facility] 05-20-2023 Are you deaf, or do you have serious difficulty hearing No 05/20/2023 1:52 PM India Burden, [place] No [facility] 05-20-2023 Are you blind, or do you have serious difficulty seeing, even when wearing glasses No 05/20/2023 1:52 PM India Burden, [place] No [facility] 05-20-2023 Do you have serious difficulty walking or climbing stairs No 05/20/2023 1:52 PM India Burden, [place] No [facility] 05-20-2023 Do you have difficul ty dressing or bathing No 05/20/2023 1:52 PM India Burden, [place] No [facility] 05-20-2023 Because of a physica l, mental, or emotional condition, do you have difficulty doing errands alone such as visiting a physician's office or shopping No 05/20/2023 1:52 PM India Burden, [place] No [facility] Mental Status Date Assessment Result Facility 05-20-2023 Because of a physica l, mental, or emotional condition, do you have serious difficulty concentrating, remembering, or making decisions No 05/20/2023 1:52 PM India Burden, [place] No [facility] Clinical Notes 10-21-2019 to 07-25-2024 Nat Ocampo, DISINTEGRATOR - GARAGE LABORER - 07/25/2024 3:00 PM EDTPatient Cristina Cotto MD - 07/24/2024 9:45 AM EDTDischarge Janice Hager DO - 07/23/2024 5:37 PM EDTAttachments Note Date & Type Note Facility 07-25-2024 History of Present illness Narrative Images from the original note were not included. [facility] [place] [address] [place] [address] [place] [id number] Dept: [phone] Dept Luli Johnson 1990 [id number] 07/25/2024 Problem List: Neck pain Cervical radiculopathy- bilateral Cervical spondylosis Lumbar pain (M54.2) Neck pain (M54.12) Cervical radiculopathy (M47.812) Cervical spondylosis (M54.50) Lumbar pain Chief Complaint Patient presents with New Patient Neck Pain HPI: Luli is a 33 y.o. female who is here today for evaluation of her cervical spine. Current symptoms: Pain is located in the neck radiating to the shoulders and down the arms at times Numbness tingling: BUE Weakness: neck - feels like head is heavy Pain radiates down her spine to her low back Symptoms are severely affecting their quality of life. Inciting Event/Trauma: No specific cause Duration of Symptoms: years - worse the last month Associated neurologic complaints/Red flags: Gait/balance difficulty: reports; also gets dizzy when pain is bad Use of ambulatory aid?: no device Able to walk a city block: No - has to take breaks Bowel/bladder incontinence: reports once episode of bowel incontinence Urinary retention: No Saddle anesthesia: No Fine motor task difficulty/dropping things/handwriting changes: secondary to finger injury History of cancer: No Aggravating factors: Cervical ROM Worse in the morning - cannot move/get up sometimes when she first wakes up Constant pain Alleviating Factors: nothing Previous Treatment: PT: No NSAIDS: Spine/Joint Injections: No Opioid medications: Muscle relaxers: Oral steroids: Nerve medications (gabapentin/Lyrica): Pain management: No Chiropractor: No Previous spine surgery: no History of DVT/PE or hypercoagulable state (including history of relative): DVT years ago Blood thinning medications: none Review of Systems Musculoskeletal: Positive for arthralgias, back pain, gait problem, myalgias, neck pain and neck stiffness. Neurological: Positive for weakness and numbness. Tobacco Use: Low Risk (07/25/2024) Patient History Smoking Tobacco Use: Never Smokeless Tobacco Use: Never Passive Exposure: Not on file No results found for: HGBA1C Allergies[1] Current Medications[2] Medical History[3] Surgical History[4] Social History Socioeconomic History Marital status: Single Spouse name: Not on file Number of children: Not on file Years of education: Not on file Highest education level: Not on file Occupational History Not on file Tobacco Use Smoking status: Never Smokeless tobacco: Never Substance and Sexual Activity Alcohol use: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 significant activities. 6. Feelings of detachment or estrangement from others. 7. Persistent inability to experience positive emotions (e.g., inability to experience happiness, satisfaction, or loving feelings). E. Marked alterations in arousal or reactivity associated with the traumatic event(s), beginning or worsening after the traumatic event(s) occurred, as evidenced by two (or more) of the followin. Irritable behavior and angry outburst (with little or no provocation) typically expressed as verbal or physical aggression toward people or objects. 2. Reckless or self-destructive behavior 3. Hypervigilance 4. Exaggerated startle response 5. Problems with concentration 6. Sleep disturbance (e.g., difficulty falling or staying asleep or restless sleep). Based on the symptoms reported above, client meets the criteria for Posttraumatic stress disorder Human Trafficking Screening completed? No Suicide Screening: Risk Factors: C-SSRS (Select link to update when appropriate) 06/03/2023 06/03/2023 05/26/2023 C-SSRS Complete? Yes Yes Wish to be ?/Passive Ideation (past month) No No No Non-specific active suicidal thoughts (past month) No No No Preparatory acts or attempts (lifetime)? No No No Risk Level Negative Screen Negative Screen Negative Screen Mod or High? No No SAFE-T (Results displayed from current encounter only) Note: per ED visit 01/18/23, client reported a suicide attempt at age 18. Access to firearms: no Have you ever had a psychiatric advanced directive (ONLY ASK IN SEVERE DX) If yes, (details) Unknown If No: Are you interested in one? Unknown Substance Use Consequences from Substance Use: History of Mental and Psychological consequences from substance use: No History of Physical and Behavioral problems associated with substance use: No Divorce: No Loss of family members or friends: No Educational: No Job-related incidents: No Financial difficulties: No Blackouts: Unknown Have you ever overdosed on drugs/alcohol? Unknown Memory Impairment: No Other: No PSYCH LOC Assessment on Intake indicated: Substance Use History Luli Johnson has a history of substance use involving: Substance 1: cannabis; client reported daily use A. A problematic pattern of substance use leading to clinically significant impairment or distress, as manifested by at least two of the following, occurring within a 12-month period: 1. Substance is often taken in larger amounts or over a longer period than was intended. 2. There is a persistent desire or unsuccessful efforts to cut down or control substance use. 3. A great deal of time is spent in activities necessary to obtain the substance, use the substance, or recover from its effects. 4. Craving, or a strong desire or urge to use substance 5. Recurrent substance use resulting in a failure to fulfill major role obligations at work, school, or home. 6. Continued substance use despite having persistent or recurrent social or interpersonal problems caused or exacerbated by its effect. 7. Important social, occupational, or recreational activities are given up or reduced because of substance use. 8. Recurrent substance in situations in which it is physically hazardous. 9. Substance use is continued despite knowledge of having a persistent or recurrent physical or psychological problem that is likely to have been caused or exacerbated by substance. 10. Tolerance, as defined by either of the following: a. A need for markedly increased amounts of alcohol to achieve intoxication or desired effect. b. A markedly diminished effect with continued use of the same amount of substance. 11. Withdrawal, as manifested by either of the following: a. The characteristic withdrawal syndrome for substance (Client endorsed anxiety, sleep issues, irritability) b. Substance or closely related substance is taken to relieve or avoid withdrawal symptoms. Severity: Mild: Presence of 2-3 symptoms. Moderate: Presence of 4-5 symptoms Severe: Presence of 6 or more symptoms Based on the symptoms reported above, client meets the criteria for Cannabis use disorder, mild Substance considered drug of choice or major problem: cannabis Substances tried with no regular use pattern: alcohol Substances used at same time or in exchange (over 1 year period): cannabis, alcohol Substance use diagnosis with description: Cannabis use disorder, mild Family history of use of alcohol, other drugs and other addictive behaviors: Grandparents: No Parents: No Siblings: No Other: No Patient's history of treatment for alcohol and other drug abuse: None Response to previous treatment: N/A Meeting attendance in the past 30 days: No Relapse history: Unknown Number of relapses/sobriety: N/A Select all of the symptoms you have experienced when you stopped using drugs or alcohol:Agitation, Anxiety, Other: Shakiness, Sleep Issues Select the option that best describes how you feel right now about your drug or alcohol use: I never think about my drug or alcohol use. ASAM Level of AOD Service Needs (MOVE THIS UP TO OTHER BLUE) Dimension 1: Acute Intoxication Withdrawal Potential Degree and Dimensions: 1: Low Risk Level of Care rating: Level 1: Outpatient Services Comments: Dimension 2: Biomedical Conditions and/or Complications Degree and Dimensions: 1: Low Risk Level of Care rating: Level 1: Outpatient Services Comments: Dimension 3: Emotional/ Behavioral/Cognitive Conditions and/or Complications Degree and Dimensions: 2: Moderate Risk Level of Care rating: Level 2.1: Intensive Outpatient Services Comments: Dimension 4: Treatment Acceptance/Resistance Degree and Dimensions: 1: Low Risk Level of Care rating: Level 1: Outpatient Services Comments: Dimension 5: Relapse Potential Degree and Dimensions: 1: Low Risk Level of Care rating: Level 1: Outpatient Services Comments: Dimension 6: Recovery Environment Degree and Dimensions: 1: Low Risk Level of Care rating: Level 1: Outpatient Services Comments: Level of Care Recommendation: (Agreement on Level 0.05 needs 5 of 6 Dimensions; Level 1.0 needs 5 of 6 Dimensions; Level 2.1 or 2.5 need 2 Dimensions (4,5 or 6); Level 3.1, 3.3, 3.5 and 3.7 need 3 of 6 Dimensions; Level 4 needs 1 Dimension from 1,2 or 3 to meet criteria and substantiate a level of care recommendation): Is the client eligible for MAT treatment? No If yes, was the client offered MAT treatment? not applicable If yes, did the client accept MAT treatment? not applicable Level of care recommended: Level 1 - Outpatient Services If not placed in level of care recommended, list reason: Client refuses level of care Comments: See recommendation below History of Other Unhealthy, Harmful Behaviors Gambling Survey Completed? Yes During the past 12 months, have you: Become restless, irritable, or anxious when trying to stop or cut down on gambling?No Tried to keep your family or friends from knowing how much you gambled? No Had such financial trouble because of gambling that you had to get help with living expenses from family or friends?No Gambling activities during the past 12 months: None Other unhealthy, harmful behaviors? No Mental Status Exam: 1. APPEARANCE: Telehealth, unable to assess 2. BEHAVIOR: cooperative, guarded 3. ORIENTATION: Oriented to time, person & place 4. SPEECH: clear, normal rate and flow, and goal-directed 5. THOUGHT PROCESS: logical, organized, with tight association 6. ASSOCIATION: tight 7. ABNORMAL/PSYCHOTIC THOUGHTS: no abnormal processes noted 8. JUDGMENT AND INSIGHT: good 9. RECENT AND REMOTE MEMORY: good recent and remote recall 10. ATTENTION SPAN AND CONCENTRATION: sustained 11. LANGUAGE: appropriate 12. FUND OF KNOWLEDGE: Okay 13. MOOD: mostly euthymic 14. AFFECT: congruent Learning Needs Assessment: Learning Needs: Diagnosis/Disease Process Medications Barriers to learning: None Readiness to learn: No barriers Patients preferred learning method: Patient Goals for Treatment: (including substance use goals in patient's own words): Client reported wanting to decrease her trauma-related sxs. Patient preferences: None Diagnostic Impression: Posttraumatic stress disorder; Major depressive disorder, recurrent, in partial remission, with mood-congruent psychotic features and Cannabis use disorder, mild Based on the data collected in the diagnostic assessment, as well as: chart review, the following recommendations were made: Treatment Recommendations: The client was recommended to psychiatry services for psychopharmacological management with [facility]. Client accepted this recommendation. Client has a follow up on 08/04/23. The client was recommended to Clinical Treatment for individual behavioral health counseling services with [facility]. Client accepted this recommendation. Client will be contacted for an appointment. Monitoring for worsening substance use is recommended. (Reminder to make sure a standing order for utox has been placed in Epic.) Signature, credentials, PIN, & Date: Bernabe Kan LPC Associated attestation - Haley Mendez LPCC-S - 06/22/2023 11:26 AM EDT As an independently licensed sales assistant, I have reviewed and approved of this documentation in its entirety, and am in agreement with the interventions and documentation of this clinician. ARIC Rodriguez documented in this encounter [facility] 05-25-2023 Miscellaneous Notes Bx unremarkable. Obtain GES and stop THC use- [facility] Repeat colonoscopy age 45 for screening. Summary: EGD/CO path reports Images from the original note were not included. Pt calling back, does she need Hep B or C? She would also like to discuss results Luli Johnson called today. : 1990 Allergies: Ciprofloxacin, Cold Cream, Diphenhydramine, Hydrocortisone, Peanut, Sulfamethoxazole-Trimethoprim, Tree Nuts, Sulfa (Sulfonamide Antibiotics), Loratadine, and Sulfasalazine (home) [phone] (cell) Reason for call: vomiting and nausea after procedure yesterday. Abd pain, 99.8 temp Patient last appointment: 04/27/2023 The patients preferred pharmacy has been captured for this encounter? yes Gala Cash MA documented in this encounter [facility] 05-23-2023 Note HNO ID: [id number] Author: MARIUM EVANS RN Service: ? Author Type: Registered Nurse Type: Progress Notes Filed: 05/23/2023 11:55 Note Text: TCM Home Visit Referral Source of Stratification: TCM [facility] Hospital Admission Status: Discharged Readmission Risk Score: 11 FERNANDA Score: 2 Patient meets program referral criteria: No Patient does not qualify for High Risk TCM Home Visit program due to: Discharged home, does not meet program criteria Marium Evans RN May 23, 2023 11:35 AM TRANSITIONAL CARE MANAGEMENT (TCM) COMMUNITY MONITORING PROGRAM Provider Action/FYI: Patient feeling the same. Still having same dizzy spells but trying to stay hydrated and change positions slowly. No n/v currently. No headache. No fever/ chills, shortness of breath or chest pain. Ambulating without difficulty. Refusing need to review medications or for referrals. Needs to follow up with Neurology on outpatient basis including outpatient cerebral angio to definitely rule out dissection. Patient advised to call Dr. Urbano's office with any questions. Wants to follow up with Neurology first on 06-06-23 before making follow up appointment with PCP. Declines follow up PCP appointment at this time. Echo 05-26-23 SUMMARY: Discharge Network Status: In-Network Discharge Pt discharged from [facility] on 05-20-23. Admitted for: Dizziness Contact made with patient: Yes Hi my name is Marium Evans RN and I am calling from the [facility] on behalf of your PCP, Madi Stuart MD I understand you were recently in the hospital so I am calling to check in with you to ensure you are feeling well now that you're home. May I ask you a few questions related to your hospital stay and well-being? Yes Contact with patient post discharge, spoke to patient. Patient identified by name and . Do you feel your health is BETTER, WORSE, or the SAME since leaving the hospital? Same ACTION TAKEN: Patient indicated symptoms are better or same, no action required. Continue outreach. MEDICATIONS: Many patients have questions or concerns about their medications once they are home. Do you have any questions about taking your medications or which medication you should be on? No Do you need any medication refills at this time, including any of the medications you might take only when needed? No ACTION TAKEN: No action required For RNs or Pharmacy completing outreach ONLY, was a medication review completed? Yes SOCIAL: We would like to make sure you have what you need so that your basics needs are met - including your personal safety, food, housing and medications. Would you like to speak with a social work help desk team leader to help give you support for any of these needs? No It can be normal to feel anxious or down during a time like this. Would you like to talk to a mental health professional about how you have been feeling? No ACTION TAKEN: No action taken DISCHARGE INTRUCTIONS: Your discharge instructions / After Visit Summary (AVS) are important in guiding you through the recovery process. Do you have any questions related to your discharge instructions? No Do you have all the necessary equipment and supplies at home? Yes ACTION TAKEN: No action required I would like to help you schedule a hospital follow-up virtual or telephone visit with your PCP. This is a great way for you to connect with your provider to ensure you have safely transitioned home. If you are agreeable, I will send your request to a senior lead java developer who will contact and assist you with that appointment. This will give you an opportunity to ask any questions or address any concerns you may have with your PCP. Inform the patient that if they have any questions or concerns prior to that appointment, to call their PCP's office right away. ACTION TAKEN: No action required, patient declines appointment. Your doctor would like us to remind you of the recommendations regarding the coronavirus (Covid19) outbreak: Avoid public places as much as possible. Avoid close contact (within 6 feet) with others you don?t live with, especially if they are sick. Stay home if you are sick. Wash your hands regularly for at least 20 seconds with soap and water. Wear a cloth mask in public places to help reduce community spread. Do not go to your Doctor?s office unless instructed to do so. For any non-emergency symptoms, call your Doctor?s office to get instructions on how to manage (we might recommend a telephone or virtual visit). For emergency symptoms, proceed to Emergency Department as usual but inform them of cough and fever symptoms ELIGIO if present (or call on the way if possible). LATHA Education Ordered -: No Value Hub Disposition Is the patient a Value Hub patient? No. The patient is not a part of the Value Hub. Marium Evans RN May 23, 2023 11:[address] [facility] 05-23-2023 History of Present illness Narrative TCM Home Visit Referral Source of Stratification: [facility] Hospital Admission Status: Discharged Readmission Risk Score: 11 FERNANDA Score: 2 Patient meets program referral criteria: No Patient does not qualify for High Risk TCM Home Visit program due to: Discharged home, does not meet program criteria Marium Evans RN May 23, 2023 11:35 AM TRANSITIONAL CARE MANAGEMENT (TCM) COMMUNITY MONITORING PROGRAM Provider Action/FYI: Patient feeling the same. Still having same dizzy spells but trying to stay hydrated and change positions slowly. No n/v currently. No headache. No fever/ chills, shortness of breath or chest pain. Ambulating without difficulty. Refusing need to review medications or for referrals. Needs to follow up with Neurology on outpatient basis including outpatient cerebral angio to definitely rule out dissection. Patient advised to call Dr. Urbano's office with any questions. Wants to follow up with Neurology first on 06-06-23 before making follow up appointment with PCP. Declines follow up PCP appointment at this time. Echo 05-26-23 SUMMARY: Discharge Network Status: In-Network Discharge Pt discharged from [facility] on 05-20-23. Admitted for: Dizziness Contact made with patient: Yes Hi my name is Marium Evans RN and I am calling from the [facility] on behalf of your PCP, Madi Stuart MD I understand you were recently in the hospital so I am calling to check in with you to ensure you are feeling well now that you're home. May I ask you a few questions related to your hospital stay and well-being? Yes Contact with patient post discharge, spoke to patient. Patient identified by name and . Do you feel your health is BETTER, WORSE, or the SAME since leaving the hospital? Same ACTION TAKEN: Patient indicated symptoms are better or same, no action required. Continue outreach. MEDICATIONS: Many patients have questions or concerns about their medications once they are home. Do you have any questions about taking your medications or which medication you should be on? No Do you need any medication refills at this time, including any of the medications you might take only when needed? No ACTION TAKEN: No action required For RNs or Pharmacy completing outreach ONLY, was a medication review completed? Yes SOCIAL: We would like to make sure you have what you need so that your basics needs are met - including your personal safety, food, housing and medications. Would you like to speak with a social work help desk team leader to help give you support for any of these needs? No It can be normal to feel anxious or down during a time like this. Would you like to talk to a mental health professional about how you have been feeling? No ACTION TAKEN: No action taken DISCHARGE INTRUCTIONS: Your discharge instructions / After Visit Summary (AVS) are important in guiding you through the recovery process. Do you have any questions related to your discharge instructions? No Do you have all the necessary equipment and supplies at home? Yes ACTION TAKEN: No action required I would like to help you schedule a hospital follow-up virtual or telephone visit with your PCP. This is a great way for you to connect with your provider to ensure you have safely transitioned home. If you are agreeable, I will send your request to a senior lead java developer who will contact and assist you with that appointment. This will give you an opportunity to ask any questions or address any concerns you may have with your PCP. Inform the patient that if they have any questions or concerns prior to that appointment, to call their PCP's office right away. ACTION TAKEN: No action required, patient declines appointment. Your doctor would like us to remind you of the recommendations regarding the coronavirus (Covid19) outbreak: Avoid public places as much as possible. Avoid close contact (within 6 feet) with others you don t live with, especially if they are sick. Stay home if you are sick. Wash your hands regularly for at least 20 seconds with soap and water. Wear a cloth mask in public places to help reduce community spread. Do not go to your Doctor s office unless instructed to do so. For any non-emergency symptoms, call your Doctor s office to get instructions on how to manage (we might recommend a telephone or virtual visit). For emergency symptoms, proceed to Emergency Department as usual but inform them of cough and fever symptoms ELIGIO if present (or call on the way if possible). LATHA Education Ordered -: No Value Hub Disposition Is the patient a Value Hub patient? No. The patient is not a part of the Value Hub. Marium Evans RN May 23, 2023 11:42 AM documented in this encounter [facility] 05-23-2023 Note Patient Outreach (AM [facility]) LULI JOHNSON ([id number]) 1990 F Date Time Provider Department 05/23/23 MARIUM EVANSG During your visit today, we recorded the following information about you: Marium Evans RN 05/23/2023 11:55 AM Signed TCM Home Visit Referral Source of Stratification: [facility] Hub Hospital Admission Status: Discharged Readmission Risk Score: 11 FERNANDA Score: 2 Patient meets program referral criteria: No Patient does not qualify for High Risk TCM Home Visit program due to: Discharged home, does not meet program criteria Marium Evans RN May 23, 2023 11:35 AM TRANSITIONAL CARE MANAGEMENT (TCM) COMMUNITY MONITORING PROGRAM Provider Action/FYI: Patient feeling the same. Still having same dizzy spells but trying to stay hydrated and change positions slowly. No n/v currently. No headache. No fever/ chills, shortness of breath or chest pain. Ambulating without difficulty. Refusing need to review medications or for referrals. Needs to follow up with Neurology on outpatient basis including outpatient cerebral angio to definitely rule out dissection. Patient advised to call Dr. Urbano's office with any questions. Wants to follow up with Neurology first on 06-06-23 before making follow up appointment with PCP. Declines follow up PCP appointment at this time. Echo 05-26-23 SUMMARY: Discharge Network Status: In-Network Discharge Pt discharged from [facility] on 05-20-23. Admitted for: Dizziness Contact made with patient: Yes Hi my name is Marium Evans RN and I am calling from the [facility] on behalf of your PCP, Madi Stuart MD I understand you were recently in the hospital so I am calling to check in with you to ensure you are feeling well now that you're home. May I ask you a few questions related to your hospital stay and well-being? Yes Contact with patient post discharge, spoke to patient. Patient identified by name and . Do you feel your health is BETTER, WORSE, or the SAME since leaving the hospital? Same ACTION TAKEN: Patient indicated symptoms are better or same, no action required. Continue outreach. MEDICATIONS: Many patients have questions or concerns about their medications once they are home. Do you have any questions about taking your medications or which medication you should be on? No Do you need any medication refills at this time, including any of the medications you might take only when needed? No ACTION TAKEN: No action required For RNs or Pharmacy completing outreach ONLY, was a medication review completed? Yes SOCIAL: We would like to make sure you have what you need so that your basics needs are met - including your personal safety, food, housing and medications. Would you like to speak with a social work help desk team leader to help give you support for any of these needs? No It can be normal to feel anxious or down during a time like this. Would you like to talk to a mental health professional about how you have been feeling? No ACTION TAKEN: No action taken DISCHARGE INTRUCTIONS: Your discharge instructions / After Visit Summary (AVS) are important in guiding you through the recovery process. Do you have any questions related to your discharge instructions? No Do you have all the necessary equipment and supplies at home? Yes ACTION TAKEN: No action required I would like to help you schedule a hospital follow-up virtual or telephone visit with your PCP. This is a great way for you to connect with your provider to ensure you have safely transitioned home. If you are agreeable, I will send your request to a senior lead java developer who will contact and assist you with that appointment. This will give you an opportunity to ask any questions or address any concerns you may have with your PCP. Inform the patient that if they have any questions or concerns prior to that appointment, to call their PCP's office right away. ACTION TAKEN: No action required, patient declines appointment. Your doctor would like us to remind you of the recommendations regarding the coronavirus (Covid19) outbreak: Avoid public places as much as possible. Avoid close contact (within 6 feet) with others you don?t live with, especially if they are sick. Stay home if you are sick. Wash your hands regularly for at least 20 seconds with soap and water. Wear a cloth mask in public places to help reduce community spread. Do not go to your Doctor?s office unless instructed to do so. For any non-emergency symptoms, call your Doctor?s office to get instructions on how to manage (we might recommend a telephone or virtual visit). For emergency symptoms, proceed to Emergency Department as usual but inform them of cough and fever symptoms ELIGIO if present (or call on the way if possible). LATHA Education Ordered -: No Value Hub Disposition Is the patient a Value Hub (more content not included)... 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 No Admission Status: Observation Insurance Provider: [facility] MEDICAID Discharge Planning requested by: Per Department Practice Potential Transition Plans Home;To Be Determined Advance Directives Current Advance Directive: None Compliance Review Officer Attempted to Assist with AD Completion: Yes Action: Patient Unwilling Current Living Arrangements and Support Lives with: Alone Type of Residence: Private Residence (Apartment or Condo) Does the patient have to climb stairs at home?: No Support: Parent, Spouse/significant other, Social Agency, horticultural manager/social worker psychiatric How do you manage to accomplish the following: Independent: Ambulation;Bathe/Shower;Dress;Meal s/Meal Prep;Going to the bathroom;Medication Management Dependent: Transportation to appointments/community Current Services/Equipment Current Post-Acute Service(s): None Discharge Planning Patient Goal(s): Be able to go home, General wellness [place] of Choice Explained: [place] Given: No Reason Not Given: No placements necessary Are you interested in bedside delivery of your medications? No gets Rx filled at [facility] Discharge Planning Participant(s): Patient Patient/Family Comments: Caregiver Assessment: Caregiver is ready, willing and able to meet the patient's needs as recommended by the inter-professional team: No Caregiver needed Transport at Discharge: Transportation Arrangements: Uber/Lyft (through insurance [employer]) Needs Prior to Discharge: Needs Prior to Discharge: To Be Determined;Discharge Prescriptions;Discharge Transportation Post-Acute Discharge Plan: SW met with pt at bedside of [facility]. Pt was AANDOx3 and willing to meet with this SW. Pt presents w/ c/o dizziness from PCP appt. Pt is from home alone, IPTA, does not drive, receives disability. Pt denies the use of any DME [employer]. Pt reported she is active w/ psych at [facility] and virtual counseling sessions. Pt denies any substance abuse issues at this time. Pt denies SI/HI at this time. PT REQUESTING RX FOR SHOWER CHAIR. Otherwise, no skilled home going needs identified at this time. Pt reported that she will need [employer] services upon DC. TCC/SW available to assist with DC if needed. SIGNATURE: JEFFY Gallardo PATIENT NAME: Luli Johnson DATE: May 19, 2023 TIME: 11:45 PM CONTACT #: [phone] [facility] 05-19-2023 Note HNO ID: [id number] Author: PRABHAKAR SEAY APRN.CNP Service: General Internal Medicine Author Type: Nurse Practitioner Type: Plan of Care Filed: 05/19/2023 20:34 Note Text: [facility] Patient Name: Luli Johnson Primary Care Physician: Madi Stuart MD Service Date: 05/19/2023 Service Time: 8:32 PM Called by nursing re: Ms. Johnson's request to leave against medical advice. Discussed with her the reason for her observation stay, including ruling in/out an acute posterior stroke. Discussed with her my concern for her profound and global weakness and her ability to ambulate into her apartment. Discussed risks of leaving the hospital against medical advice including the possibility of permanent neuromuscular damage and ?evolving embolic event. Discussed the benefits of staying for the appropriate workup including coordinating follow-up on discharge and receiving appropriate imaging. She elects to stay in the hospital at this time. Signature: Prabhakar Seay APRN.GARAGE LABORER Date: 05/19/2023 Time: 8:32 PM [facility] 05-19-2023 Note HNO ID: [id number] Author: AMBER BAUER, DO Service: ? Author Type: Physician Type: Progress Notes Filed: 05/19/2023 14:47 Note Text: SUBJECTIVE Luli Johnson is a 32 year old female Patient presents with: ER F/U Pt doesn't remember why she went to [facility] on 05-15-23. CTA neck showed a change in the right vertebral artery. Pt has neuro fu scheduled in August through . States that currently she feels dizzy- everything is spinning. + nausea/dry heaving for a few days. States that her whole body feels numb. Says that she has had double vision x 3 days- its constant. Pt hasn't seen optho for a long time- said she does need glasses. Also states that she can't feel anything in her whole body- its all numb. Asked if she was having a panic attack and pt denied. Pt walked to the office today and felt weak walking in. Does not feel that she is physically able to walk home. Pt states that she doesn't feel safe to be at home because of her physical condition. Pt denies having anyone who can come to the office to get her. States her mother lives in [place]. She says her friends do no drive. Pt is asking to go to the ED because she wants to be evaluated. CURRENT MEDICATIONS: Current Outpatient Medications Medication Sig sertraline (ZOLOFT) 50 mg tablet Take 1 tablet by mouth every afternoon. No current facility-administered medications for this visit. Facility-Administered Medications Ordered in Other Visits Medication Dose Route Frequency NaCl 0.9% iv infusion 30 mL/hr INTRAVENOUS CONTINUOUS REVIEW OF SYSTEMS: Past medical history was reviewed and updated. Past surgical history was reviewed and updated. Family History: was reviewed and updated. Past social history was reviewed and updated. GENERAL: Fatigue RESPIRATORY: Negative for cough, hemoptysis, wheezing, COPD, dyspnea or shortness of breath CARDIOVASCULAR: Negative for chest pain, leg swelling, hypertension, CHF or palpitations GI: nausea PHYSICAL EXAMINATION: BP 107/73 (BP Site: Right Arm) Pulse 83 Temp 37 ?C (98.6 ?F) (Left Tympanic) Wt 53.4 kg (117 lb 13.4 oz) LMP 04/19/2023 (Approximate) BMI 23.80 kg/m? General Appearance: in no acute distress, alert, pt makes poor eye contact at times Ears: External ears normal, canals clear Oropharynx: Lips, mucosa, and tongue normal, teeth and gums normal, oropharynx normal Neck: Supple, no adenopathy; thyroid symmetric, normal size, no bruits Lungs: Lungs clear to auscultation. No wheezing, rhonchi, rales. Heart: RRR without murmur, gallop, or rubs. No ectopy Abdomen: Normal abdominal exam, Abdomen soft, non-tender. Bowel sounds normal. No masses, organomegaly Extremities: No LE edema b/l Musculoskeletal: good muscle tone. Poor patient effort in strength testing. Neurologic: BOLA observed pt walking from the waiting room to the exam room with strong steady gait. In the exam room, pt had cautious gait with small steps, no leaning. Pt could not correctly identify how many fingers I held up. She could not complete finger to nose testing properly. Pt denied sensation through chest and extremities to microfilament touch. Negative nystagmus b/l ASSESSMENT/PLAN: 1. 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 Diplopia - ICD9: 368.2, ICD10: H53.2 - CONSULT TO NEUROLOGY 3. Vertigo - ICD9: 780.4, ICD10: R42 - CONSULT TO NEUROLOGY Since pt does not feel safe to go home due to her medical complaints, will refer to the ED. Pt states that there is no one to drive her there and she does not drive herself. Therefore EMS was called. Report given to ED. Amber Bauer DO [facility] 05-19-2023 History of Present illness Narrative SUBJECTIVE Luli Johnson is a 32 year old female Patient presents with: ER F/U Pt doesn't remember why she went to [facility] on 05-15-23. CTA neck showed a change in the right vertebral artery. Pt has neuro fu scheduled in August through . States that currently she feels dizzy- everything is spinning. + nausea/dry heaving for a few days. States that her whole body feels numb. Says that she has had double vision x 3 days- its constant. Pt hasn't seen optho for a long time- said she does need glasses. Also states that she can't feel anything in her whole body- its all numb. Asked if she was having a panic attack and pt denied. Pt walked to the office today and felt weak walking in. Does not feel that she is physically able to walk home. Pt states that she doesn't feel safe to be at home because of her physical condition. Pt denies having anyone who can come to the office to get her. States her mother lives in [place]. She says her friends do no drive. Pt is asking to go to the ED because she wants to be evaluated. CURRENT MEDICATIONS: Current Outpatient Medications Medication Sig sertraline (ZOLOFT) 50 mg tablet Take 1 tablet by mouth every afternoon. No current facility-administered medications for this visit. Facility-Administered Medications Ordered in Other Visits Medication Dose Route Frequency NaCl 0.9% iv infusion 30 mL/hr INTRAVENOUS CONTINUOUS REVIEW OF SYSTEMS: Past medical history was reviewed and updated. Past surgical history was reviewed and updated. Family History: was reviewed and updated. Past social history was reviewed and updated. GENERAL: Fatigue RESPIRATORY: Negative for cough, hemoptysis, wheezing, COPD, dyspnea or shortness of breath CARDIOVASCULAR: Negative for chest pain, leg swelling, hypertension, CHF or palpitations GI: nausea PHYSICAL EXAMINATION: BP 107/73 (BP Site: Right Arm) Pulse 83 Temp 37 C (98.6 F) (Left Tympanic) Wt 53.4 kg (117 lb 13.4 oz) LMP 04/19/2023 (Approximate) BMI 23.80 kg/m General Appearance: in no acute distress, alert, pt makes poor eye contact at times Ears: External ears normal, canals clear Oropharynx: Lips, mucosa, and tongue normal, teeth and gums normal, oropharynx normal Neck: Supple, no adenopathy; thyroid symmetric, normal size, no bruits Lungs: Lungs clear to auscultation. No wheezing, rhonchi, rales. Heart: RRR without murmur, gallop, or rubs. No ectopy Abdomen: Normal abdominal exam, Abdomen soft, non-tender. Bowel sounds normal. No masses, organomegaly Extremities: No LE edema b/l Musculoskeletal: good muscle tone. Poor patient effort in strength testing. Neurologic: BOLA observed pt walking from the waiting room to the exam room with strong steady gait. In the exam room, pt had cautious gait with small steps, no leaning. Pt could not correctly identify how many fingers I held up. She could not complete finger to nose testing properly. Pt denied sensation through chest and extremities to microfilament touch. Negative nystagmus b/l ASSESSMENT/PLAN: 1. 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 Diplopia - ICD9: 368.2, ICD10: H53.2 - CONSULT TO NEUROLOGY 3. Vertigo - ICD9: 780.4, ICD10: R42 - CONSULT TO NEUROLOGY Since pt does not feel safe to go home due to her medical complaints, will refer to the ED. Pt states that there is no one to drive her there and she does not drive herself. Therefore EMS was called. Report given to ED. Amber Bauer DO documented in this encounter [facility] 05-15-2023 Note No evidence of acute cortical infarct or intracranial hemorrhage. If symptoms persist, further evaluation with MRI is suggested for better assessment. MACRO: None Signed by: Zeus Salazar 05/15/2023 7:28 AM Dictation workstation: [id number] [facility] Note HNO ID: [id number] Author: NOTE, INTERFACE, ? Service: ? Author Type: ? Type: Progress Notes Filed: 05/14/2023 03:39 Note Text: Epic Scheduled Downtime: 05/14/2023 1:00:00 AM to 05/14/2023 3:24:00 AM [facility] 05-13-2023 Miscellaneous Notes Patient notified Rx was sent to pharmacy. Pt expresses to RN that she is having slight bladder pressure and burning with urination. Order placed for urine culture, advised to go to lab to give sample. Clean catch instructions reviewed/provided. Pt verbalized understanding. Marie Parnell RN Please call patient and let her know that she tested positive for vaginal esthela. Medication was sent to her pharmacy, take as instructed. Thank you Matthieu García MD documented in this encounter [facility] 05-12-2023 Note HNO ID: [id number] Author: MATTHIEU CURTIS MD Service: ? Author Type: Physician Type: Progress Notes Filed: 05/12/2023 14:30 Note Text: Luli johnson is a 32 year old who presents for an annual gynecologic exam with complaints, slight on and off vaginal irritation . Menses: cycles every 28-30 days and 5 days of flow. 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 LMP: 04/19/2023 (Approximate), Having periods Age at Menarche: Age at First : Age at Menopause: Data Center Engineer History Comments: Sexual Activity: Yes; Male Contraception: None PAST MEDICAL HISTORY Diagnosis Date Anxiety and depression Bacterial vaginosis Developmental delay Family history of seizure disorder Herpes simplex vulvovaginitis 07/07/2022 Hypotension IBS (irritable bowel syndrome) Ovarian cyst disorder Pituitary lesion (HCC) 04/05/2016 Traumatic brain injury (HCC) UTI (urinary tract infection) Vaginal atrophy PAST SURGICAL HISTORY Procedure Laterality Date CHOLECYSTECTOMY HX 2020 KIDNEY STONE SURGERY HX Right 10/31/2019 REMOVAL GALLBLADDER FAMILY HISTORY Problem Relation Age of Onset Hypertension Mother Autism Sister Parkinson?s Disease Maternal Grandmother Hypertension Maternal Grandfather SOCIAL HISTORY Social History Tobacco Use Smoking status: Never Passive exposure: Never Smokeless tobacco: Never Tobacco comments: Smokes marijuana Vaping Use Vaping Use: Never used Substance Use Topics Alcohol use: Yes Comment: occ Drug use: Yes Types: Marijuana REVIEW OF SYSTEMS Abdomen: No abdominal pain, nausea, vomiting, diarrhea, or constipation. No bloating, early satiety, indigestion, or increased flatulence. Bladder: No dysuria, gross hematuria, urinary frequency, urinary urgency, or incontinence. Breast: No breast lumps, nipple d/c, overlying skin changes, redness or skin retraction. Allergies and current medication updated:Yes EXAM: BP 113/78 Wt 119 lb 14.9 oz (54.4kg) LMP 04/19/2023 GENERAL: pleasant, female in no apparent distress HEENT: Normocephalic, atraumatic, mucus membranes moist, and no lesions NECK: Supple BREAST: soft, non-tender, symmetric, no dominant mass, normal nipple-areolar complex, no lymphadenopathy, and no nipple discharge CHEST: Normal inspiratory effort ABDOMEN: soft, non-tender, and no masses PELVIC: external genitalia normal, normal Bartholin's glands, urethra, [place]'s glands, no vulvar lesions, no cervical lesions, good vaginal support, physiologic discharge present, normal appearing perineal body and perianal region BIMANUAL: uterus normal size, shape and consistency, no adnexal masses, and non-tender. NEURO: alert and oriented x3,exam grossly non-focal EXTREMITIES: normal ASSESSMENT/PLAN: 1) Health maintenance: Pap/HPV up to date. 2) Contraception: none. 3) STD screening: Declined STD check. 4) Follow up one year or sooner as needed Matthieu García MD [facility] 05-12-2023 History of Present illness Narrative Luli johnson is a 32 year old who presents for an annual gynecologic exam with complaints, slight on and off vaginal irritation . Menses: cycles every 28-30 days and 5 days of flow. 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 LMP: 04/19/2023 (Approximate), Having periods Age at Menarche: Age at First : Age at Menopause: Data Center Engineer History Comments: Sexual Activity: Yes; Male Contraception: None PAST MEDICAL HISTORY Diagnosis Date Anxiety and depression Bacterial vaginosis Developmental delay Family history of seizure disorder Herpes simplex vulvovaginitis 07/07/2022 Hypotension IBS (irritable bowel syndrome) Ovarian cyst disorder Pituitary lesion (HCC) 04/05/2016 Traumatic brain injury (HCC) UTI (urinary tract infection) Vaginal atrophy PAST SURGICAL HISTORY Procedure Laterality Date CHOLECYSTECTOMY HX 2020 KIDNEY STONE SURGERY HX Right 10/31/2019 REMOVAL GALLBLADDER FAMILY HISTORY Problem Relation Age of Onset Hypertension Mother Autism Sister Parkinson s Disease Maternal Grandmother Hypertension Maternal Grandfather SOCIAL HISTORY Social History Tobacco Use Smoking status: Never Passive exposure: Never Smokeless tobacco: Never Tobacco comments: Smokes marijuana Vaping Use Vaping Use: Never used Substance Use Topics Alcohol use: Yes Comment: occ Drug use: Yes Types: Marijuana REVIEW OF SYSTEMS Abdomen: No abdominal pain, nausea, vomiting, diarrhea, or constipation. No bloating, early satiety, indigestion, or increased flatulence. Bladder: No dysuria, gross hematuria, urinary frequency, urinary urgency, or incontinence. Breast: No breast lumps, nipple d/c, overlying skin changes, redness or skin retraction. Allergies and current medication updated:Yes EXAM: BP 113/78 Wt 119 lb 14.9 oz (54.4kg) LMP 04/19/2023 GENERAL: pleasant, female in no apparent distress HEENT: Normocephalic, atraumatic, mucus membranes moist, and no lesions NECK: Supple BREAST: soft, non-tender, symmetric, no dominant mass, normal nipple-areolar complex, no lymphadenopathy, and no nipple discharge CHEST: Normal inspiratory effort ABDOMEN: soft, non-tender, and no masses PELVIC: external genitalia normal, normal Bartholin's glands, urethra, [place]'s glands, no vulvar lesions, no cervical lesions, good vaginal support, physiologic discharge present, normal appearing perineal body and perianal region BIMANUAL: uterus normal size, shape and consistency, no adnexal masses, and non-tender. NEURO: alert and oriented x3,exam grossly non-focal EXTREMITIES: normal ASSESSMENT/PLAN: 1) Health maintenance: Pap/HPV up to date. 2) Contraception: none. 3) STD screening: Declined STD check. 4) Follow up one year or sooner as needed Matthieu García MD [employer]working Sander offered: Patient accepts, visit chaperoned by rabia celestin. documented in this encounter [facility] 05-12-2023 Instructions Matthieu Curtis MD - 05/12/2023 2:28 PM EST ACOG Screening Guidelines The following health screening schedule is recommended by the [employer] (ACOG). Some of these tests may be ordered or performed by your primary care doctor. Pap test screening The pap test looks at cells on the cervix (the opening from the vagina to the uterus) to look for cancer or pre-cancerous changes. These changes are caused by the human papillomavirus (HPV). Studies estimate that half of all women will test positive for this virus within 3 years of starting sexual activity. For young women with a normal immune system, 90% of HPV infections will resolve within 2 years. There is a vaccine available against some forms of HPV. This is recommended for girls and women age 9-45. For ages 9-14, two injections are given at 0 and 6 months. For ages 15-45, three injections are given at 0,2 and 6 months. Because this vaccine does not protect against all HPV types which can cause cervical cancer, women who received the vaccine still need pap tests. Pap smear screening should be started at age 21. The pap test should be done every 3 years from age 21-29. From age 30-65, pap smears can be done every 5 years if HPV test is negative or every 3 years if HPV testing is not done. For women over the age of 65, ACOG recommends against screening women who have had adequate prior screening and are not otherwise at high risk for cervical cancer. Women who have had a hysterectomy also do not need routine pap smear screening unless the pap smear was done for a cervical cancer or moderate to severe dysplasia. Breast cancer screening Mammogram should be performed every 1-2 years starting at age 40 and every year starting at age 50. Screening may be started earlier depending on family history. Cholesterol screening Lipid panel (cholesterol test) should be checked every 5 years starting at age 45. Diabetes screening Fasting glucose (blood sugar) test should be performed every 3 years starting at age 45. Colorectal cancer screening Starting at age 45, women should have a screening colonoscopy at least every 10 years. Screening may be started earlier depending on family history. Thyroid screening Thyroid function test (TSH) should be checked every 5 years starting at age 50. Bone mineral density screening All postmenopausal women age 65 and over and postmenopausal women with risk factors for osteoporosis should have a bone mineral density test performed. Risk factors include race, family history of osteoporosis, personal history of fractures, poor nutrition, smoking, heavy alcohol use, early menopause, low calcium intake and low body weight. Certain medical conditions and long-term use of some medications may also increase risk. documented in this encounter [facility] 05-12-2023 Miscellaneous Notes Attempted to contact patient in regards to several instances where her appointments have been scheduled and then cancelled, often at short notice. Patient did not answer but I left a detailed message for patient. This Workleader advised that while life can be unpredictable and sometimes circumstances arise that make it challenging to keep scheduled appointments, it is important to let us know in a timely manner if she cannot make her appointment. I emphasized that we do value her life and wellbeing, however, when appointments are cancelled with a short notice consistently, it limits our ability to offer these times to other patients who may be in urgent need of care. I advised patient to please let us know in a timely fashion if she cannot make her appointment. Patient was advised that she can contact this Workleader with any questions. Kelsey Pepe documented in this encounter [facility] 05-12-2023 Note HNO ID: [id number] Author: RABIA CELESTIN MA Service: ? Author Type: Orthotics Assistant Type: Progress Notes Filed: 05/12/2023 14:30 Note Text: Hand Woodworking Sander offered: Patient accepts, visit chaperoned by rabia celestin. [facility] 05-11-2023 History of Present illness Narrative Images from the original note were not included. [facility] Department of Cardiovascular Medicine SECTION OF REGIONAL CARDIOLOGY OUTPATIENT VISIT DATE May 09, 2023 OUTPATIENT VISIT TYPE NEW CONSULTATION PRIMARY CARE PHYSICIAN: Madi Stuart [address] [place] [address] CHIEF COMPLAINT: Chest pain HISTORY OF PRESENT ILLNESS: Ms. Johnson is a pleasant 32 year old female here for cardiovascular evaluation. She has no documented cardiac history. She has been dealing with a significant amount of chest pains that occur throughout the chest and wraps around the axilla. She has also been dealing with some dizziness as well. She states that the dizziness occurs all the time but she states that the dizziness is worse when she takes a breath. She states that she has noticed this for 2 weeks. She has been dealing with vomiting and diarrhea. Family Hx: Uncle had bypass in his 70s. Smoking: Never. Working on Marijuana. The following portions of the patient's history were reviewed and updated as appropriate, allergies, current medications, past medical, social, surgical, and family history and problem list. PAST MEDICAL HISTORY Diagnosis Date Anxiety and depression Bacterial vaginosis Developmental delay Family history of seizure disorder Herpes simplex vulvovaginitis 07/07/2022 Hypotension IBS (irritable bowel syndrome) Ovarian cyst disorder Pituitary lesion (HCC) 04/05/2016 Traumatic brain injury (HCC) UTI (urinary tract infection) Vaginal atrophy PAST SURGICAL HISTORY Procedure Laterality Date CHOLECYSTECTOMY HX 2020 KIDNEY STONE SURGERY HX Right 10/31/2019 REMOVAL GALLBLADDER FAMILY HISTORY Problem Relation Age of Onset Hypertension Mother Autism Sister Parkinson s Disease Maternal Grandmother Hypertension Maternal Grandfather Social History Tobacco Use Smoking status: Never Passive exposure: Never Smokeless tobacco: Never Tobacco comments: Smokes marijuana Vaping Use Vaping Use: Never used Substance Use Topics Alcohol use: Yes Comment: occ Drug use: Yes Types: Marijuana ALLERGIES Allergen Reactions Ciprofloxacin Anaphylaxis, Hives, Rash, Shortness of Breath Cold Cream Anaphylaxis Diphenhydramine Rash, Hives, Swelling, Shortness of Breath Hydrocortisone Hives, Rash, Swelling Peanut Anaphylaxis Sulfamethoxazole-Tr* Hives, Rash, Shortness of Breath Tree Nuts Swelling, Anaphylaxis, Shortness of Breath Sulfa (Sulfonamide * Hives, Rash Loratadine Rash, Swelling Sulfasalazine Unknown CURRENT MEDICATIONS: fluconazole (DIFLUCAN) 150 mg tablet^^Disp: ^Rfl: (Patient not taking: Reported on 05/03/2023) omeprazole (PRILOSEC) 2 mg/ml liqd^Take 20 mL by mouth daily before breakfast.^Disp: 600 mL^Rfl: 0 (Patient not taking: Reported on 05/03/2023) famotidine (PEPCID) 20 mg tablet^Take 1 tablet by mouth once daily.^Disp: 30 tablet^Rfl: 2 (Patient not taking: Reported on 04/20/2023) sertraline (ZOLOFT) 50 mg tablet^Take 1 tablet by mouth every afternoon.^Disp: ^Rfl: Iqzidflk-Px-Yjm-Fe-FA tab^Take 1 tablet by mouth once daily.^Disp: 90 tablet^Rfl: 3 (Patient not taking: Reported on 05/03/2023) I have personally interviewed, confirmed and edited the above information if obtained by others. Physical Exam LMP 03/23/2023 (Approximate) Gen: alert, no acute distress HEENT: normocephalic, atraumatic, no rinorrhea, no congestion, normal hearing, EOMI, no eye discharge Heart: no murmurs, S1/S2+, regular rate and rhythm Lungs: no wheezing, no rales, symmetric expansion, nonlabored Abdomen: soft, nontender, nondistended Musculoskeletal: no edema, nontender Neurological: no focal deficits, alert, oriented Psychatric: cooperative, appropriate Pertinent Diagnostics/Labs/Data reviewed (ECGs and echo listed personally reviewed today or prior) and include: Last EKG Result Conclusion EKG Collected: 05/08/2023 12:53 AM (Final result) Impression: Sinus rhythm Probable left atrial enlargement Anteroseptal infarct, age indeterminate Abnormal ECG 5 Confirmed by KIM DORSEY MD ([id number]), telegraph editor AVANI HARRIS ([id number]) on 05/08/2023 9:16:24 AM Assessment & Plan Atypical Chest Pain Incomplete RBBB Impression: EKG shows an incomplete RBBB Coronary CTA 09/02/21: Calcium Score of 0. No evidence of atherosclerotic disease. Plan: - Vitals today: BP of 105/73 and a HR of 80 - Not currently on any cardiac medications. - Will try and get an echo to evaluate her LV function Current Outpatient Medications on File Prior to Visit Medication Sig fluconazole (DIFLUCAN) 150 mg tablet (Patient not taking: Reported on 05/03/2023) omeprazole (PRILOSEC) 2 mg/ml liqd Take 20 mL by mouth daily before breakfast. (Patient not taking: Reported on 05/03/2023) famotidine (PEPCID) 20 mg tablet Take 1 tablet by mouth once daily. (Patient not taking: Reported on 04/20/2023) sertraline (ZOLOFT) 50 mg tablet Take 1 tablet by mouth every afternoon. Vtuzmkrp-Wk-Hjh-Fe-FA tab Take 1 tablet by mouth once daily. (Patient not taking: Reported on 05/03/2023) Current Facility-Administered Medications on File Prior to Visit Medication NaCl 0.9% iv infusion Return in 6 months with communication in between if symptoms or changes occur. Thank you, CONTACT INFORMATION: Elaine Jacob MD Cardiovascular Medicine Staff Interventional Cardiology Staff [facility] [address] [place] [address] documented in this encounter [facility] 05-11-2023 Note HNO ID: [id number] Author: ELAINE JACOB MD Service: ? Author Type: Physician Type: Progress Notes Filed: 05/11/2023 08:41 Note Text: [facility] Department of Cardiovascular Medicine SECTION OF REGIONAL CARDIOLOGY OUTPATIENT VISIT DATE May 09, 2023 OUTPATIENT VISIT TYPE NEW CONSULTATION PRIMARY CARE PHYSICIAN: Madi Stuart [address] [place] [address] CHIEF COMPLAINT: Chest pain HISTORY OF PRESENT ILLNESS: Ms. Johnson is a pleasant 32 year old female here for cardiovascular evaluation. She has no documented cardiac history. She has been dealing with a significant amount of chest pains that occur throughout the chest and wraps around the axilla. She has also been dealing with some dizziness as well. She states that the dizziness occurs all the time but she states that the dizziness is worse when she takes a breath. She states that she has noticed this for 2 weeks. She has been dealing with vomiting and diarrhea. Family Hx: Uncle had bypass in his 70s. Smoking: Never. Working on Marijuana. The following portions of the patient's history were reviewed and updated as appropriate, allergies, current medications, past medical, social, surgical, and family history and problem list. PAST MEDICAL HISTORY Diagnosis Date Anxiety and depression Bacterial vaginosis Developmental delay Family history of seizure disorder Herpes simplex vulvovaginitis 07/07/2022 Hypotension IBS (irritable bowel syndrome) Ovarian cyst disorder Pituitary lesion (HCC) 04/05/2016 Traumatic brain injury (HCC) UTI (urinary tract infection) Vaginal atrophy PAST SURGICAL HISTORY Procedure Laterality Date CHOLECYSTECTOMY HX 2020 KIDNEY STONE SURGERY HX Right 10/31/2019 REMOVAL GALLBLADDER FAMILY HISTORY Problem Relation Age of Onset Hypertension Mother Autism Sister Parkinson?s Disease Maternal Grandmother Hypertension Maternal Grandfather Social History Tobacco Use Smoking status: Never Passive exposure: Never Smokeless tobacco: Never Tobacco comments: Smokes marijuana Vaping Use Vaping Use: Never used Substance Use Topics Alcohol use: Yes Comment: occ Drug use: Yes Types: Marijuana ALLERGIES Allergen Reactions Ciprofloxacin Anaphylaxis, Hives, Rash, Shortness of Breath Cold Cream Anaphylaxis Diphenhydramine Rash, Hives, Swelling, Shortness of Breath Hydrocortisone Hives, Rash, Swelling Peanut Anaphylaxis Sulfamethoxazole-Tr* Hives, Rash, Shortness of Breath Tree Nuts Swelling, Anaphylaxis, Shortness of Breath Sulfa (Sulfonamide * Hives, Rash Loratadine Rash, Swelling Sulfasalazine Unknown CURRENT MEDICATIONS: fluconazole (DIFLUCAN) 150 mg tabletDisp: Rfl: (Patient not taking: Reported on 05/03/2023) omeprazole (PRILOSEC) 2 mg/ml liqdTake 20 mL by mouth daily before breakfast.Disp: 600 mLRfl: 0 (Patient not taking: Reported on 05/03/2023) famotidine (PEPCID) 20 mg tabletTake 1 tablet by mouth once daily.Disp: 30 tabletRfl: 2 (Patient not taking: Reported on 04/20/2023) sertraline (ZOLOFT) 50 mg tabletTake 1 tablet by mouth every afternoon.Disp: Rfl: Mqjyseoc-Ph-Ylz-Fe-FA tabTake 1 tablet by mouth once daily.Disp: 90 tabletRfl: 3 (Patient not taking: Reported on 05/03/2023) I have personally interviewed, confirmed and edited the above information if obtained by others. Physical Exam LMP 03/23/2023 (Approximate) Gen: alert, no acute distress HEENT: normocephalic, atraumatic, no rinorrhea, no congestion, normal hearing, EOMI, no eye discharge Heart: no murmurs, S1/S2+, regular rate and rhythm Lungs: no wheezing, no rales, symmetric expansion, nonlabored Abdomen: soft, nontender, nondistended Musculoskeletal: no edema, nontender Neurological: no focal deficits, alert, oriented Psychatric: cooperative, appropriate Pertinent Diagnostics/Labs/Data reviewed (ECGs and echo listed personally reviewed today or prior) and include: Last EKG Result Conclusion EKG Collected: 05/08/2023 12:53 AM (Final result) Impression: Sinus rhythm Probable left atrial enlargement Anteroseptal infarct, age indeterminate Abnormal ECG 54 Confirmed by KIM DORSEY MD ([id number]), telegraph editor AVANI HARRIS ([id number]) on 05/08/2023 9:16:24 AM Assessment AND Plan Atypical Chest Pain Incomplete RBBB Impression: EKG shows an incomplete RBBB Coronary CTA 09/02/21: Calcium Score of 0. No evidence of atherosclerotic disease. Plan: - Vitals today: BP of 105/73 and a HR of 80 - Not currently on any cardiac medications. - Will try and get an echo to evaluate her LV function Current Outpatient Medications on File Prior to Visit Medication Sig fluconazole (DIFLUCAN) 150 mg tablet (Patient not taking: Reported on 05/03/2023) omeprazole (PRILOSEC) 2 mg/ml liqd Take 20 mL by mouth daily before breakfast. (Patient no (more content not included)... [facility] 05-10-2023 Miscellaneous Notes Done in the previous encounter. documented in this encounter [facility] 05-09-2023 Miscellaneous Notes Pt.scheduled to come in on Tuesday to discuss further. documented in this encounter [facility] 05-09-2023 Miscellaneous Notes Patient aware of message below. Patient is schedule to see BEHAVIORAL HEALTH THERAPIST on 05/11/22 and PCP 05/18/23. Recommend OTC Azo and drinking cranberry juice. Thank you, Clair Huang PA-C Patient called to schedule ER follow up (scheduled 05/17 per patient) but asked for OTC recommendations for UTI symptoms. Please advise. documented in this encounter [facility] 05-03-2023 Note [facility] Patient Name: Luli Johnson Procedure Date: 05/03/2023 1:36 PM Date of : 1990 Age: 32 Gender: Female Race: Unknown Attending MD: Chasity Huynh MD, [id number] Procedure: Colonoscopy Referring MD: MADI STUART MD Providers: Chasity Huynh MD, Nat Page CRNA (Campus Security Officer) Indications: Chronic diarrhea Findings: The perianal and digital rectal examinations were normal. The colon (entire examined portion) appeared normal. Biopsies were taken with a cold forceps for histology. Verification of patient identification for the specimen was done by the nurse using the patient's name, date and medical record number. Estimated blood loss was minimal. The terminal ileum appeared normal. The retroflexed view of the distal rectum and anal verge was normal and showed no anal or rectal abnormalities. Patient Profile: This is a 32 year old female. Refer to note in patient chart for documentation of history and physical. Impression: - The entire examined colon is normal. Biopsied. - The examined portion of the ileum was normal. - The distal rectum and anal verge are normal on retroflexion view. Recommendation: - Await pathology results. - Repeat colonoscopy at age 45 for screening purposes. - Patient has a contact number available for emergencies. The signs and symptoms of potential delayed complications were discussed with the patient. Return to normal activities tomorrow. Written discharge instructions were provided to the patient. - Resume previous diet. - Continue present medications. Medicines: Propofol per Anesthesia Procedure: Pre-Anesthesia Assessment: - Prior to the procedure, a History and Physical was performed, and patient medications and allergies were reviewed. The patient is competent. The risks and benefits of the procedure and the sedation options and risks were discussed with the patient. All questions were answered and informed consent was obtained. Patient identification and proposed procedure were verified by the physician and the nurse in the pre-procedure area in the procedure room. Mental Status Examination: alert and oriented. Airway Examination: normal oropharyngeal airway and neck mobility. Respiratory Examination: clear to auscultation. CV Examination: normal. Prophylactic Antibiotics: The patient does not require prophylactic antibiotics. Prior Anticoagulants: The patient has taken no anticoagulant or antiplatelet agents. ASA Grade Assessment: II - A patient with mild systemic disease. After reviewing the risks and benefits, the patient was deemed in satisfactory condition to undergo the procedure. The anesthesia plan was to use deep sedation / analgesia. Immediately prior to administration of medications, the patient was re-assessed for adequacy to receive sedatives. The heart rate, respiratory rate, oxygen saturations, blood pressure, adequacy of pulmonary ventilation, and response to care were monitored throughout the procedure. The physical status of the patient was re-assessed after the procedure. After I obtained informed consent, the scope was passed under direct vision. Throughout the procedure, the patient's blood pressure, pulse, and oxygen saturations were monitored continuously. Provation AI/GI Genius was used during withdrawal. The COLONOSCOPE was introduced through the anus and advanced to the terminal ileum. The colonoscopy was performed without difficulty. The patient tolerated (more content not included)... [facility] 05-03-2023 Note [facility] Patient Name: Luli Johnson Procedure Date: 05/03/2023 1:45 PM Date of : 1990 Age: 32 Gender: Female Race: Unknown Attending MD: Chasity Huynh MD, [id number] Procedure: Upper GI endoscopy Referring MD: MADI STUART MD Providers: Chasity Huynh MD, Nat Page CRNA (Campus Security Officer) Indications: Nausea with vomiting, diarrhea Findings: The examined esophagus was normal. The Z-line was regular and was found 35 cm from the incisors. The entire examined stomach was normal. Biopsies were taken with a cold forceps for histology. Verification of patient identification for the specimen was done by the nurse using the patient's name, date and medical record number. Estimated blood loss was minimal. The examined duodenum was normal. Biopsies were taken with a cold forceps for histology. Verification of patient identification for the specimen was done by the nurse using the patient's name, date and medical record number. Estimated blood loss was minimal. Patient Profile: This is a 32 year old female. Refer to note in patient chart for documentation of history and physical. Impression: - Normal esophagus. - Z-line regular, 35 cm from the incisors. - Normal stomach. Biopsied. - Normal examined duodenum. Biopsied. Recommendation: - Await pathology results. - Perform a colonoscopy today. Medicines: Propofol per Anesthesia Procedure: Pre-Anesthesia Assessment: - Prior to the procedure, a History and Physical was performed, and patient medications and allergies were reviewed. The patient is competent. The risks and benefits of the procedure and the sedation options and risks were discussed with the patient. All questions were answered and informed consent was obtained. Patient identification and proposed procedure were verified by the physician and the nurse in the pre-procedure area in the procedure room. Mental Status Examination: alert and oriented. Airway Examination: normal oropharyngeal airway and neck mobility. Respiratory Examination: clear to auscultation. CV Examination: normal. Prophylactic Antibiotics: The patient does not require prophylactic antibiotics. Prior Anticoagulants: The patient has taken no anticoagulant or antiplatelet agents. ASA Grade Assessment: II - A patient with mild systemic disease. After reviewing the risks and benefits, the patient was deemed in satisfactory condition to undergo the procedure. The anesthesia plan was to use deep sedation / analgesia. Immediately prior to administration of medications, the patient was re-assessed for adequacy to receive sedatives. The heart rate, respiratory rate, oxygen saturations, blood pressure, adequacy of pulmonary ventilation, and response to care were monitored throughout the procedure. The physical status of the patient was re-assessed after the procedure. After obtaining informed consent, the endoscope was passed under direct vision. Throughout the procedure, the patient's blood pressure, pulse, and oxygen saturations were monitored continuously. The ENDOSCOPE was introduced through the mouth, and advanced to the second part of duodenum. The upper GI endoscopy was accomplished without difficulty. The patient tolerated the procedure well. Complications: No immediate complications. Procedure Code(s): --- Professional --- 67614, 22, Esophagogastroduodenoscopy, flexible, transoral; with biopsy, single or multiple Diagnosis Code(s): --- Professional --- (more content not included)... [facility] 05-03-2023 Miscellaneous Notes 1. Did the patient test positive for COVID (antibody testing NOT accepted): Yes Date of Positive Test: 04/06/2020, 02/28/21, 01/25/23 Type of test (home test or PCR): home, pcr, pcr COVID vaccine type and dates (if not already on file): on file We have a few questions about any ongoing symptoms to help prepare you and your provider for your visit. 2. Is the patient seeing us for taste/smell changes? No C/o dizzy, nauseated, confusion, gi issues 3. Is patient traveling far (1 hour+) or coming from another state: No 4. Please verify the following are on file in patient's chart, and enter if not found - medication list Yes - allergies Yes - PCP Yes 5. Please inform patient of the below information if they have not been sent [facility] appt reminder: [facility] functions as a referral service. You will have an initial visit as well as one follow-up visit in which all [facility] testing, imaging, and labs will be discussed. From there on it is expected that you continue to follow up with your PCP and the specialist(s) established through this program. We do not manage symptoms or follow patients halfway. COVID [facility] intake team is not able to assist with disability requests, including work restrictions or clearances as we do not do active treatment and management of long-COVID symptoms, and are not actively involved in long-term care after your 2 visits. Your primary care provider and the consulted specialists we discuss during our visit(s) are better suited for assisting with disability requests. Those providers are welcome use our office note and testing to help support their plans of care. Patients will be expected to have labs, testing, and consults done through [facility]; we cannot fax orders to outside facilities, and do not have access to outside providers. Please be prepared that you may need to travel to [place] multiple times to get all testing done and see the consulted specialist(s). Please arrive 15 minutes early to your appointment. If you are more than 10 minutes late to your appointment you may be asked to reschedule. One week prior to your appointment you should pre-check in via [facility] to complete questionnaires that will provide valuable information to your provider to aid in your visit. You may receive a telephone call to remind you if we see they have not been completed in advance of your visit. If you have outside testing you would like to be entered into your chart, please fax it to [phone]. Records brought in same day of visit may not be reviewed until after the visit due to time constraints. documented in this encounter [facility] 05-03-2023 Miscellaneous Notes was called on May 03, 2023 to be rescheduled for an appointment with the [facility] that was either cancelled or the patient was a no show on 03/16/23. Pt rescheduled, see apt desk Caller to patient: Please ensure patient [employer] is activated, there will be questionnaires that needs to be completed prior to your apt documented in this encounter [facility] 04-29-2023 Miscellaneous Notes Called and spoke to pt. Pt.and I discussed her results and recs.in detail. Pt.will have new labs drawn and Hep.A vaccine. Pt is returning your all Pt is calling back for results Luli Johnson called today. : 1990 Allergies: Ciprofloxacin, Cold Cream, Diphenhydramine, Hydrocortisone, Peanut, Sulfamethoxazole-Trimethoprim, Tree Nuts, Sulfa (Sulfonamide Antibiotics), Loratadine, and Sulfasalazine (home) [phone] (cell) Reason for call: pt calling for blood work results Patient last appointment: 04/20/2023 The patients preferred pharmacy has been captured for this encounter? yes Kim Baker Luli Johnson called today. : 1990 Allergies: Ciprofloxacin, Cold Cream, Diphenhydramine, Hydrocortisone, Peanut, Sulfamethoxazole-Trimethoprim, Tree Nuts, Sulfa (Sulfonamide Antibiotics), Loratadine, and Sulfasalazine (home) [phone] (cell) Reason for call: Pt is calling regarding lab results she is asking if any other labs are pending please call Patient last appointment: 04/20/2023 The patients preferred pharmacy has been captured for this encounter? no Kim Avelar MA documented in this encounter [facility] 04-20-2023 Miscellaneous Notes Will discuss at upcoming appt. Thank you, Clair Huang PA-C Patient was advised by her GI to request a referral from PCP for a sales enablement analyst due to her lung pain. Patient has appointment next week to discuss lab results. Please advise. documented in this encounter [facility] 04-20-2023 Miscellaneous Notes Disregard, I spoke with [facility] and gave verbal consent Luli Johnson called today. : 1990 Allergies: Ciprofloxacin, Cold Cream, Diphenhydramine, Hydrocortisone, Peanut, Sulfamethoxazole-Trimethoprim, Tree Nuts, Sulfa (Sulfonamide Antibiotics), Loratadine, and Sulfasalazine (home) [phone] (cell) Reason for call: pt called and said pharmacy does not have the liquid version, she is ok swallowing pills Patient last appointment: 04/20/2023 The patients preferred pharmacy has been captured for this encounter? yes Gala Cash MA documented in this encounter [facility] 04-20-2023 History of Present illness Narrative Images from the original note were not included. [facility] DATE: 04/20/2023 PATIENT NAME: Luli Johnson : 1990 CHIEF COMPLAINT Transaminitis, N/V/D HPI Ms. Johnson is a 32 year old female with PMHx TBI, schizophrenia, hypotension who presents for N/V/D and transaminitis. Daily postprandial belching, nausea and NBNB vomiting x 1 month. Persistent nausea after meals, vomits 50% of time. Also endorses early satiety and mild epigastric pain. Change in bowel habits x 2 weeks. Currently: 3-4 yellow liquid stools per day. Denies GIB. Normal bowel pattern: 1 BM every 2 days Generally unwell, decreased strength, dizziness, exertional dyspnea. Is following with PCP and has upcoming appointment with Dr. Titus (cards) on 05/04. Zofran and compazine have not helped. Also denies any improvement with hot showers/baths. Denies any recent travel, sick contacts or dietary changes. Smokes marijuana almost daily, has since age 13 Social alcohol, 1-2 times per month Takes vitamin, no other OTCs/CAMs Went to [facility] on 04/12/23; CBC unremarkable, CMP with ALT 66 (otherwise normal), CT A/P : Perivesical fat stranding is suspicious for acute cystitis. Patchy striated cortical hypoenhancement in the left upper pole (series 201, images 36-38; series 202, images 56-63), suspicious for acute pyelonephritis. Clinical correlation and correlation with urinalysis recommended. Otherwise, no evidence of acute pathology in the abdomen or pelvis. Trace volume of low-density pelvic free fluid is most likely physiologic in etiology, noting a physiologic peripherally enhancing right ovarian corpus luteum. Cholecystectomy. Additional findings as discussed above. Was tx for UTI with course of keflex. Repeat labs 04/18/23 with ALT 80, AST 40 otherwise unremarkable. Hep B, C, syphilis, HIV negative PMH PAST MEDICAL HISTORY Diagnosis Date Anxiety and depression Bacterial vaginosis Developmental delay Family history of seizure disorder Herpes simplex vulvovaginitis 07/07/2022 Hypotension IBS (irritable bowel syndrome) Ovarian cyst disorder Pituitary lesion (HCC) 04/05/2016 Traumatic brain injury (HCC) UTI (urinary tract infection) Vaginal atrophy PSH PAST SURGICAL HISTORY Procedure Laterality Date CHOLECYSTECTOMY HX 2020 KIDNEY STONE SURGERY HX Right 10/31/2019 REMOVAL GALLBLADDER ALLERGIES ALLERGIES Allergen Reactions Ciprofloxacin Anaphylaxis, Hives, Rash, Shortness of Breath Cold Cream Anaphylaxis Diphenhydramine Rash, Hives, Swelling, Shortness of Breath Hydrocortisone Hives, Rash, Swelling Peanut Anaphylaxis Sulfamethoxazole-Tr* Hives, Rash, Shortness of Breath Tree Nuts Swelling, Anaphylaxis, Shortness of Breath Sulfa (Sulfonamide * Hives, Rash Loratadine Rash, Swelling Sulfasalazine Unknown CURRENT MEDS PRIOR TO VISIT Current Outpatient Medications Medication Sig Dispense Refill sertraline (ZOLOFT) 50 mg tablet Take 1 tablet by mouth every afternoon. Dugzqeni-Tt-Qvz-Fe-FA tab Take 1 tablet by mouth once daily. 90 tablet 3 fluconazole (DIFLUCAN) 150 mg tablet omeprazole (PRILOSEC) 2 mg/ml liqd Take 20 mL by mouth daily before breakfast. 600 mL 0 famotidine (PEPCID) 20 mg tablet Take 1 tablet by mouth once daily. (Patient not taking: Reported on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 SCREENING FINAL DIAGNOSIS A - CERVICAL SCREENING FLUID Satisfactory for interpretation, Obscuring blood Negative for Intraepithelial lesion or malignancy. PAST MEDICAL HISTORY Diagnosis Date Anxiety and depression Bacterial vaginosis Developmental delay Family history of seizure disorder Herpes simplex vulvovaginitis 07/07/2022 Hypotension IBS (irritable bowel syndrome) Ovarian cyst disorder Pituitary lesion (HCC) 04/05/2016 Traumatic brain injury (HCC) UTI (urinary tract infection) Vaginal atrophy PAST SURGICAL HISTORY Procedure Laterality Date CHOLECYSTECTOMY HX 2020 KIDNEY STONE SURGERY HX Right 10/31/2019 FAMILY HISTORY Problem Relation Age of Onset Hypertension Mother Autism Sister Parkinson s Disease Maternal Grandmother Hypertension Maternal Grandfather Social History Tobacco Use Smoking status: Never Passive exposure: Never Smokeless tobacco: Never Tobacco comments: Smokes marijuana Vaping Use Vaping Use: Never used Substance Use Topics Alcohol use: Yes Comment: occ Drug use: Not Currently Types: Marijuana Current Outpatient Medications Medication Sig ARIPiprazole (ABILIFY) 20 mg tablet Take 1 tablet by mouth once daily. benztropine (COGENTIN) 0.5 mg tablet Take 1 tablet by mouth two times a day. [id number] tab Take 1 tablet by mouth once daily. ARIPiprazole (ABILIFY) 10 mg tablet Take 10 mg by mouth once daily. benztropine (COGENTIN) 1 mg tablet Take by mouth twice daily. No current facility-administered medications for this visit. Allergies As of Date: 01/07/2023 Allergen Noted Reaction CIPROFLOXACIN 03/02/2011 Anaphylaxis, Hives, Rash, and Shortness of Breath COLD CREAM 12/15/2020 Anaphylaxis DIPHENHYDRAMINE 04/02/2011 Hives, Rash, Shortness of Breath, and Swelling HYDROCORTISONE 03/22/2011 Hives, Rash, and Swelling PEANUT 05/15/2016 Anaphylaxis SULFAMETHOXAZOLE-TRIMETHOPRIM 05/04/2009 Hives, Rash, and Shortness of Breath TREE NUTS 05/15/2016 Anaphylaxis, Shortness of Breath, and Swelling SULFA (SULFONAMIDE ANTIBIOTICS) 05/04/2009 Hives and Rash LORATADINE 12/15/2020 Rash and Swelling SULFASALAZINE 08/13/2009 Unknown Fully Assessed 01/07/2023 _ Partner History Both patient and partner give permission to discuss test results and medication information with the other. Partner gives permission to access EMR. Partner Information Partner's Name: Rikki Huerta Partner's : 12/07/1983 Partner's MRN: Partner's Ethnicity: NOT or Partner's Race: White Occupation: good[employer] Legally ?: No Years together: 7-8 months Do they have children together?: No Any other Previous Pregnancies?: No Smoking History: Yes, currently Use of alchol: not currently Use of Drugs: medical marijuana Medications: gabapentin, viagara (2 tablets 100 mg total) Pertinent Medical Hx: hypertension, mental health issues, gout, tourettes Pertinent Surgical Hx: shoulder Pertinent Genetic Hx: not aware Semen analysis: Component Latest Ref Rng & Units 12/09/2022 Date Of Analysis 12/08/2022 Semen Volume >=1.50 mL 2.60 Semen pH >=7.2 8.0 Color, Semen [place] Opalescent Semen Viscosity Normal Concentration >=15.00 M/mL 18.00 Total Count Sperm M 46.80 % Motile Sperm (%IL + %FINANCE LEAD) >=40 % 11 (L) Forward Progression 2 = Poor to moderate, erratic Total Motile Sperm M 5.15 Sperm Diff, Alexis >=4 % 1 (L) Undiff Rnd Cell W Rout Semen Anly <1.00 M/mL 4.50 (H) Abstinence Time Days 7.0 Collection Time 1041 Receipt Time 1042 Semen Age 0 - 60 Minutes 24 Semen Comment 2 Mild debris seen. Analysis performed using Makler Chamber. Eosin/Nigrosin Stn >=58 % 11 (L) Endtz <1.0 M/mL 0.[address] Torres: Sperm counts are ok but most sperm are not alive. I think we should focus on minimizing the smoking/marijuana and continuing the sobriety journey and check again in about 3 months. Tip Torres MD PhD __ ASSESSMENT AND PLAN Luli Johnson is a 32 year old female Luli was seen today for new patient. Diagnoses and all orders for this visit: Missed period - Cancel: URINE (NURSE PERFORM) (AV,FV,TINA,MC,ME,MM,SP) - PROGESTERONE BLD; Future Female fertility problems - CONSULT TO INFERTILITY CLINIC examination or test, unconfirmed - HCG QUAL UR B/O Screening for thyroid disorder Hyperprolactinemia (HCC) - PROLACTIN BLD; Future - TSH BLD; Future Female Evaluation: - ovulatory assessment: recommended OPKs if desired to tract Counseling: - counseled on diagnosis of infertility and etiologies - counseled on fecundity rate and outcomes, including SAB and genetic anomaly rates - discussed most recent SA and partner's alcohol, nicotine and marijuana use, will see Dr. Torres in February - at this time IVF is the only available option given counts - discussed IUI as a possibility if sperm counts improve on next SA in February Next Steps: - complete evaluation outlined above - repeat SA - Follow up if no in 6 months or sooner if consider proceeding with IUI or IVF Dr. Gabrielle Gaviria M.D. Reproductive Endocrinology and Infertility .I spent 20 minutes in the visit, with more than 50% of the total [id number] time of the visit in counseling / coordination of care. I spent a total of 25 minutes on the date of the service which included preparing to see the patient, [id number] patient care, completing clinical documentation, obtaining and/or reviewing separately obtained history, counseling and educating the patient/family/caregiver, ordering medications, tests, or procedures, independently interpreting results (not separately reported), communicating results to the patient/family/caregiver, and care coordination (not separately reported). To patients reading this note: Please be advised the primary purpose of this note is for me to communicate with myself and other members of your medical team. Standard sentence structure is not always used. Medical terminology and medical abbreviations may be used. There may be grammatical and typographical errors missed in proofreading. By signing my name below, I, Dary Bennett, attest that this documentation has been prepared under the direction and in the presence of Dr. Gabrielle Gaviria. Electronically signed, Yudelka Patricio January 07, 2023 1:42 PM documented in this encounter [facility] 12-16-2022 Miscellaneous Notes Patient aware of message below. Can use Ora-gel cold sore cream/ointment Finn Elise PA-C Patient phoned the office with concerns of a breakout on her lips that she believes may be herpes. Patient asking for suggestions for OTC treatment prior to scheduling. Please advise. documented in this encounter [facility] 12-07-2022 History of Present illness Narrative Noted TCM Home Visit Referral Source of Stratification: [facility] Admission Status: Discharged Readmission Risk Score: 12 FERNANDA Score: 2 Patient meets program referral criteria: No Patient does not qualify for High Risk TCM Home Visit program due to: Discharged home, does not meet program criteria Yoel Virgen RN December 06, 2022 1:32 PM TRANSITIONAL CARE MANAGEMENT (TCM) COMMUNITY MONITORING PROGRAM Provider Action/FYI: Appts: 12/07-Neuro; 12/17-EMU 2nd outreach attempt following hospital discharge. Left voice message with call back number [phone]. SUMMARY: Discharge Network Status: In-Network Discharge Pt discharged from [facility] on 12/04/22. Admitted for: Seizure-like activity Contact made with patient: No - 2nd unsuccessful attempt - end outreach and close encounter Outreach ended TCM Home Visit Referral Source of Stratification: [facility] Admission Status: Discharged Readmission Risk Score: 12 FERNANDA Score: 2 Patient meets program referral criteria: No Patient does not qualify for High Risk TCM Home Visit program due to: Discharged home, does not meet program criteria Yoel Virgen RN December 06, 2022 1:32 PM TRANSITIONAL CARE MANAGEMENT (TCM) COMMUNITY MONITORING PROGRAM Provider Action/FYI: Appts: 12/17-EMU Initial outreach attempt to patient following hospital discharge. No answer, left voice message with call back number [phone]. Will attempt another patient outreach later today or tomorrow. SUMMARY: Discharge Network Status: In-Network Discharge Pt discharged from [facility] on 12/04/22. Admitted for: Seizure-like activity Contact made with patient: No - next outreach attempt will be on next Outreach ended documented in this encounter [facility] 12-03-2022 History of Past i llness Narrative Problem Noted Date Diagnosed Date Resolved Date Seizure-like activity 12/03/20222022 Coarse tremors 12/03/2022 12/04/2022 Sorethroat 12/03/2022 12/04/2022 Nausea vomiting and diarrhea 09/12/2022 09/12/2022 Bilious vomiting with nausea 09/12/2022 09/12/2022 Functional diarrhea 09/12/2022 12/04/19 Diarrhea 09/11/2022 09/11/2022 09/12/2022 Overview: Comment on above: DIARRHEA Lumbar pain 05/14/2022 09/12/2022 Overview: Diagnosed with DDD in [place] Generalized abdominal pain 03/04/2022 09/11/2022 0 12/03/2022 Overview: Comment on above: ABD PAIN Comment on above: ABD PAIN Acute cystitis 03/04/2022 09/11/2022 12/03/2022 Nausea and vomiting 01/21/2022 09/11/2022 09/13/19 Overview: Comment on above: NAUSEA Comment on above: NAUSEA Anxiety 08/30/2021 09/11/2022 12/03/2022 Overview: Last Assessment & Plan: Patient does have underlying anxiety which could have contributed as well. Depression, major, recurrent , in complete remission 01/22/2020 12/03/2022 12/03/2022 documented as of this encounter (statuses as of 12/08/2022) [facility]09[facility] History of Past illness Narrative* Problem Noted Date Diagnosed Date Resolved Date Seizure-like activity 12/03/20222022 Coarse tremors 12/03/2022 12/04/2022 Sorethroat 12/03/2022 12/04/2022 Nausea vomiting and diarrhea 09/12/2022 09/12/2022 Bilious vomiting with nausea 09/12/2022 09/12/2022 Functional diarrhea 09/12/2022 12/04/19 23 Diarrhea 09/11/2022 09/11/2022 09/12/2022 Overview: Comment on above: DIARRHEA Lumbar pain 05/14/2022 09/12/2022 Overview: Diagnosed with DDD in [place] Generalized abdominal pain 03/04/2022 09/11/2022 0 12/03/2022 Overview: Comment on above: ABD PAIN Comment on above: ABD PAIN Acute cystitis 03/04/2022 09/11/2022 12/03/2022 Nausea and vomiting 01/21/2022 09/11/2022 09/13/19 23 Overview: Comment on above: NAUSEA Comment on above: NAUSEA Anxiety 08/30/2021 09/11/2022 12/03/2022 Overview: Last Assessment & Plan: Patient does have underlying anxiety which could have contributed as well. Depression, major, recurrent , in complete remission 01/22/2020 12/03/2022 12/03/2022 documented as of this encounter (statuses as of 12/16/2022) [facility] History of Past illness Narrative* Problem Noted Date Diagnosed Date Resolved Date Seizure-like activity 12/03/20222022 Coarse tremors 12/03/2022 12/04/2022 Sorethroat 12/03/2022 12/04/2022 Nausea vomiting and diarrhea 09/12/2022 09/12/2022 Bilious vomiting with nausea 09/12/2022 09/12/2022 Functional diarrhea 09/12/2022 12/04/19 23 Diarrhea 09/11/2022 09/11/2022 09/12/2022 Overview: Comment on above: DIARRHEA Lumbar pain 05/14/2022 09/12/2022 Overview: Diagnosed with DDD in [place] Generalized abdominal pain 03/04/2022 09/11/2022 0 12/03/2022 Overview: Comment on above: ABD PAIN Comment on above: ABD PAIN Acute cystitis 03/04/2022 09/11/2022 12/03/2022 Nausea and vomiting 01/21/2022 09/11/2022 09/13/19 Overview: Comment on above: NAUSEA Comment on above: NAUSEA Anxiety 08/30/2021 09/11/2022 12/03/2022 Overview: Last Assessment & Plan: Patient does have underlying anxiety which could have contributed as well. Depression, major, recurrent , in complete remission 01/22/2020 12/03/2022 12/03/2022 documented as of this encounter (statuses as of 01/06/2023) [facility] History of Past illness Narrative* Problem Noted Date Diagnosed Date Resolved Date Seizure-like activity 12/03/20222022 Coarse tremors 12/03/2022 12/04/2022 Sorethroat 12/03/2022 12/04/2022 Nausea vomiting and diarrhea 09/12/2022 09/12/2022 Bilious vomiting with nausea 09/12/2022 09/12/2022 Functional diarrhea 09/12/2022 12/04/19 23 Diarrhea 09/11/2022 09/11/2022 09/12/2022 Overview: Comment on above: DIARRHEA Lumbar pain 05/14/2022 09/12/2022 Overview: Diagnosed with DDD in [place] Generalized abdominal pain 03/04/2022 09/11/2022 0 12/03/2022 Overview: Comment on above: ABD PAIN Comment on above: ABD PAIN Acute cystitis 03/04/2022 09/11/2022 12/03/2022 Nausea and vomiting 01/21/2022 09/11/2022 09/13/19 Overview: Comment on above: NAUSEA Comment on above: NAUSEA Anxiety 08/30/2021 09/11/2022 12/03/2022 Overview: Last Assessment & Plan: Patient does have underlying anxiety which could have contributed as well. Depression, major, recurrent , in complete remission 01/22/2020 12/03/2022 12/03/2022 documented as of this encounter (statuses as of 01/08/2023) [facility] History of Past illness Narrative* Problem Noted Date Diagnosed Date Resolved Date Seizure-like activity 12/03/20222022 Coarse tremors 12/03/2022 12/04/2022 Sorethroat 12/03/2022 12/04/2022 Nausea vomiting and diarrhea 09/12/2022 09/12/2022 Bilious vomiting with nausea 09/12/2022 09/12/2022 Functional diarrhea 09/12/2022 12/04/19 23 Diarrhea 09/11/2022 09/11/2022 09/12/2022 Overview: Comment on above: DIARRHEA Lumbar pain 05/14/2022 09/12/2022 Overview: Diagnosed with DDD in [place] Generalized abdominal pain 03/04/2022 09/11/2022 0 12/03/2022 Overview: Comment on above: ABD PAIN Comment on above: ABD PAIN Acute cystitis 03/04/2022 09/11/2022 12/03/2022 Nausea and vomiting 01/21/2022 09/11/2022 09/13/19 Overview: Comment on above: NAUSEA Comment on above: NAUSEA Anxiety 08/30/2021 09/11/2022 12/03/2022 Overview: Last Assessment & Plan: Patient does have underlying anxiety which could have contributed as well. Depression, major, recurrent , in complete remission 01/22/2020 12/03/2022 12/03/2022 documented as of this encounter (statuses as of 01/08/2023) [facility] History of Past illness Narrative* Problem Noted Date Diagnosed Date Resolved Date Seizure-like activity 12/03/20222022 Coarse tremors 12/03/2022 12/04/2022 Sorethroat 12/03/2022 12/04/2022 Nausea vomiting and diarrhea 09/12/2022 09/12/2022 Bilious vomiting with nausea 09/12/2022 09/12/2022 Functional diarrhea 09/12/2022 12/04/19 23 Diarrhea 09/11/2022 09/11/2022 09/12/2022 Overview: Comment on above: DIARRHEA Lumbar pain 05/14/2022 09/12/2022 Overview: Diagnosed with DDD in [place] Generalized abdominal pain 03/04/2022 09/11/2022 0 12/03/2022 Overview: Comment on above: ABD PAIN Comment on above: ABD PAIN Acute cystitis 03/04/2022 09/11/2022 12/03/2022 Nausea and vomiting 01/21/2022 09/11/2022 09/13/19 23 Overview: Comment on above: NAUSEA Comment on above: NAUSEA Anxiety 08/30/2021 09/11/2022 12/03/2022 Overview: Last Assessment & Plan: Patient does have underlying anxiety which could have contributed as well. Depression, major, recurrent , in complete remission 01/22/2020 12/03/2022 12/03/2022 documented as of this encounter (statuses as of 01/09/2023) [facility] History of Past illness Narrative* Problem Noted Date Diagnosed Date Resolved Date Seizure-like activity 12/03/20222022 Coarse tremors 12/03/2022 12/04/2022 Sorethroat 12/03/2022 12/04/2022 Nausea vomiting and diarrhea 09/12/2022 09/12/2022 Bilious vomiting with nausea 09/12/2022 09/12/2022 Functional diarrhea 09/12/2022 12/04/19 23 Diarrhea 09/11/2022 09/11/2022 09/12/2022 Overview: Comment on above: DIARRHEA Lumbar pain 05/14/2022 09/12/2022 Overview: Diagnosed with DDD in [place] Generalized abdominal pain 03/04/2022 09/11/2022 0 12/03/2022 Overview: Comment on above: ABD PAIN Comment on above: ABD PAIN Acute cystitis 03/04/2022 09/11/2022 12/03/2022 Nausea and vomiting 01/21/2022 09/11/2022 09/13/19 23 Overview: Comment on above: NAUSEA Comment on above: NAUSEA Anxiety 08/30/2021 09/11/2022 12/03/2022 Overview: Last Assessment & Plan: Patient does have underlying anxiety which could have contributed as well. Depression, major, recurrent , in complete remission 01/22/2020 12/03/2022 12/03/2022 documented as of this encounter (statuses as of 01/11/2023) [facility] History of Past illness Narrative* Problem Noted Date Diagnosed Date Resolved Date Seizure-like activity 12/03/20222022 Coarse tremors 12/03/2022 12/04/2022 Sorethroat 12/03/2022 12/04/2022 Nausea vomiting and diarrhea 09/12/2022 09/12/2022 Bilious vomiting with nausea 09/12/2022 09/12/2022 Functional diarrhea 09/12/2022 12/04/19 23 Diarrhea 09/11/2022 09/11/2022 09/12/2022 Overview: Comment on above: DIARRHEA Lumbar pain 05/14/2022 09/12/2022 Overview: Diagnosed with DDD in [place] Generalized abdominal pain 03/04/2022 09/11/2022 0 12/03/2022 Overview: Comment on above: ABD PAIN Comment on above: ABD PAIN Acute cystitis 03/04/2022 09/11/2022 12/03/2022 Nausea and vomiting 01/21/2022 09/11/2022 09/13/19 Overview: Comment on above: NAUSEA Comment on above: NAUSEA Anxiety 08/30/2021 09/11/2022 12/03/2022 Overview: Last Assessment & Plan: Patient does have underlying anxiety which could have contributed as well. Depression, major, recurrent , in complete remission 01/22/2020 12/03/2022 12/03/2022 documented as of this encounter (statuses as of 01/13/2023) [facility] History of Past illness Narrative* Problem Noted Date Diagnosed Date Resolved Date Seizure-like activity 12/03/20222022 Coarse tremors 12/03/2022 12/04/2022 Sorethroat 12/03/2022 12/04/2022 Nausea vomiting and diarrhea 09/12/2022 09/12/2022 Bilious vomiting with nausea 09/12/2022 09/12/2022 Functional diarrhea 09/12/2022 12/04/19 23 Diarrhea 09/11/2022 09/11/2022 09/12/2022 Overview: Comment on above: DIARRHEA Lumbar pain 05/14/2022 09/12/2022 Overview: Diagnosed with DDD in [place] Generalized abdominal pain 03/04/2022 09/11/2022 0 12/03/2022 Overview: Comment on above: ABD PAIN Comment on above: ABD PAIN Acute cystitis 03/04/2022 09/11/2022 12/03/2022 Nausea and vomiting 01/21/2022 09/11/2022 09/13/19 Overview: Comment on above: NAUSEA Comment on above: NAUSEA Anxiety 08/30/2021 09/11/2022 12/03/2022 Overview: Last Assessment & Plan: Patient does have underlying anxiety which could have contributed as well. Depression, major, recurrent , in complete remission 01/22/2020 12/03/2022 12/03/2022 documented as of this encounter (statuses as of 01/18/2023) [facility] History of Past illness Narrative* Problem Noted Date Diagnosed Date Resolved Date Seizure-like activity 12/03/20222022 Coarse tremors 12/03/2022 12/04/2022 Sorethroat 12/03/2022 12/04/2022 Nausea vomiting and diarrhea 09/12/2022 09/12/2022 Bilious vomiting with nausea 09/12/2022 09/12/2022 Functional diarrhea 09/12/2022 12/04/19 23 Diarrhea 09/11/2022 09/11/2022 09/12/2022 Overview: Comment on above: DIARRHEA Lumbar pain 05/14/2022 09/12/2022 Overview: Diagnosed with DDD in [place] Generalized abdominal pain 03/04/2022 09/11/2022 0 12/03/2022 Overview: Comment on above: ABD PAIN Comment on above: ABD PAIN Acute cystitis 03/04/2022 09/11/2022 12/03/2022 Nausea and vomiting 01/21/2022 09/11/2022 09/13/19 23 Overview: Comment on above: NAUSEA Comment on above: NAUSEA Anxiety 08/30/2021 09/11/2022 12/03/2022 Overview: Last Assessment & Plan: Patient does have underlying anxiety which could have contributed as well. Depression, major, recurrent , in complete remission 01/22/2020 12/03/2022 12/03/2022 documented as of this encounter (statuses as of 01/26/2023) [facility] History of Past illness Narrative* Problem Noted Date Diagnosed Date Resolved Date Seizure-like activity 12/03/20222022 Coarse tremors 12/03/2022 12/04/2022 Sorethroat 12/03/2022 12/04/2022 Nausea vomiting and diarrhea 09/12/2022 09/12/2022 Bilious vomiting with nausea 09/12/2022 09/12/2022 Functional diarrhea 09/12/2022 12/04/19 23 Diarrhea 09/11/2022 09/11/2022 09/12/2022 Overview: Comment on above: DIARRHEA Lumbar pain 05/14/2022 09/12/2022 Overview: Diagnosed with DDD in [place] Generalized abdominal pain 03/04/2022 09/11/2022 0 12/03/2022 Overview: Comment on above: ABD PAIN Comment on above: ABD PAIN Acute cystitis 03/04/2022 09/11/2022 12/03/2022 Nausea and vomiting 01/21/2022 09/11/2022 09/13/19 Overview: Comment on above: NAUSEA Comment on above: NAUSEA Anxiety 08/30/2021 09/11/2022 12/03/2022 Overview: Last Assessment & Plan: Patient does have underlying anxiety which could have contributed as well. Depression, major, recurrent , in complete remission 01/22/2020 12/03/2022 12/03/2022 documented as of this encounter (statuses as of 01/31/2023) [facility] History of Past illness Narrative* Problem Noted Date Diagnosed Date Resolved Date Seizure-like activity 12/03/20222022 Coarse tremors 12/03/2022 12/04/2022 Sorethroat 12/03/2022 12/04/2022 Nausea vomiting and diarrhea 09/12/2022 09/12/2022 Bilious vomiting with nausea 09/12/2022 09/12/2022 Functional diarrhea 09/12/2022 12/04/19 23 Diarrhea 09/11/2022 09/11/2022 09/12/2022 Overview: Comment on above: DIARRHEA Lumbar pain 05/14/2022 09/12/2022 Overview: Diagnosed with DDD in [place] Generalized abdominal pain 03/04/2022 09/11/2022 0 12/03/2022 Overview: Comment on above: ABD PAIN Comment on above: ABD PAIN Acute cystitis 03/04/2022 09/11/2022 12/03/2022 Nausea and vomiting 01/21/2022 09/11/2022 09/13/19 Overview: Comment on above: NAUSEA Comment on above: NAUSEA Anxiety 08/30/2021 09/11/2022 12/03/2022 Overview: Last Assessment & Plan: Patient does have underlying anxiety which could have contributed as well. Depression, major, recurrent , in complete remission 01/22/2020 12/03/2022 12/03/2022 documented as of this encounter (statuses as of 02/18/2023) [facility] History of Past illness Narrative* Problem Noted Date Diagnosed Date Resolved Date Seizure-like activity 12/03/20222022 Coarse tremors 12/03/2022 12/04/2022 Sorethroat 12/03/2022 12/04/2022 Nausea vomiting and diarrhea 09/12/2022 09/12/2022 Bilious vomiting with nausea 09/12/2022 09/12/2022 Functional diarrhea 09/12/2022 12/04/19 23 Diarrhea 09/11/2022 09/11/2022 09/12/2022 Overview: Comment on above: DIARRHEA Lumbar pain 05/14/2022 09/12/2022 Overview: Diagnosed with DDD in [place] Generalized abdominal pain 03/04/2022 09/11/2022 0 12/03/2022 Overview: Comment on above: ABD PAIN Comment on above: ABD PAIN Acute cystitis 03/04/2022 09/11/2022 12/03/2022 Nausea and vomiting 01/21/2022 09/11/2022 09/13/19 23 Overview: Comment on above: NAUSEA Comment on above: NAUSEA Anxiety 08/30/2021 09/11/2022 12/03/2022 Overview: Last Assessment & Plan: Patient does have underlying anxiety which could have contributed as well. Depression, major, recurrent , in complete remission 01/22/2020 12/03/2022 12/03/2022 documented as of this encounter (statuses as of 04/08/2023) [facility] History of Past illness Narrative* Problem Noted Date Diagnosed Date Resolved Date Seizure-like activity 12/03/20222022 Coarse tremors 12/03/2022 12/04/2022 Sorethroat 12/03/2022 12/04/2022 Nausea vomiting and diarrhea 09/12/2022 09/12/2022 Bilious vomiting with nausea 09/12/2022 09/12/2022 Functional diarrhea 09/12/2022 12/04/19 23 Diarrhea 09/11/2022 09/11/2022 09/12/2022 Overview: Comment on above: DIARRHEA Lumbar pain 05/14/2022 09/12/2022 Overview: Diagnosed with DDD in [place] Generalized abdominal pain 03/04/2022 09/11/2022 0 12/03/2022 Overview: Comment on above: ABD PAIN Comment on above: ABD PAIN Acute cystitis 03/04/2022 09/11/2022 12/03/2022 Nausea and vomiting 01/21/2022 09/11/2022 09/13/19 23 Overview: Comment on above: NAUSEA Comment on above: NAUSEA Anxiety 08/30/2021 09/11/2022 12/03/2022 Overview: Last Assessment & Plan: Patient does have underlying anxiety which could have contributed as well. Depression, major, recurrent , in complete remission 01/22/2020 12/03/2022 12/03/2022 documented as of this encounter (statuses as of 04/13/2023) [facility] History of Past illness Narrative* Problem Noted Date Diagnosed Date Resolved Date Seizure-like activity 12/03/20222022 Coarse tremors 12/03/2022 12/04/2022 Sorethroat 12/03/2022 12/04/2022 Nausea vomiting and diarrhea 09/12/2022 09/12/2022 Bilious vomiting with nausea 09/12/2022 09/12/2022 Functional diarrhea 09/12/2022 12/04/19 23 Diarrhea 09/11/2022 09/11/2022 09/12/2022 Overview: Comment on above: DIARRHEA Lumbar pain 05/14/2022 09/12/2022 Overview: Diagnosed with DDD in [place] Generalized abdominal pain 03/04/2022 09/11/2022 0 12/03/2022 Overview: Comment on above: ABD PAIN Comment on above: ABD PAIN Acute cystitis 03/04/2022 09/11/2022 12/03/2022 Nausea and vomiting 01/21/2022 09/11/2022 09/13/19 Overview: Comment on above: NAUSEA Comment on above: NAUSEA Anxiety 08/30/2021 09/11/2022 12/03/2022 Overview: Last Assessment & Plan: Patient does have underlying anxiety which could have contributed as well. Depression, major, recurrent , in complete remission 01/22/2020 12/03/2022 12/03/2022 documented as of this encounter (statuses as of 04/14/2023) [facility] History of Past illness Narrative* Problem Noted Date Diagnosed Date Resolved Date Seizure-like activity 12/03/20222022 Coarse tremors 12/03/2022 12/04/2022 Sorethroat 12/03/2022 12/04/2022 Nausea vomiting and diarrhea 09/12/2022 09/12/2022 Bilious vomiting with nausea 09/12/2022 09/12/2022 Functional diarrhea 09/12/2022 12/04/19 23 Diarrhea 09/11/2022 09/11/2022 09/12/2022 Overview: Comment on above: DIARRHEA Lumbar pain 05/14/2022 09/12/2022 Overview: Diagnosed with DDD in [place] Generalized abdominal pain 03/04/2022 09/11/2022 0 12/03/2022 Overview: Comment on above: ABD PAIN Comment on above: ABD PAIN Acute cystitis 03/04/2022 09/11/2022 12/03/2022 Nausea and vomiting 01/21/2022 09/11/2022 09/13/19 Overview: Comment on above: NAUSEA Comment on above: NAUSEA Anxiety 08/30/2021 09/11/2022 12/03/2022 Overview: Last Assessment & Plan: Patient does have underlying anxiety which could have contributed as well. Depression, major, recurrent , in complete remission 01/22/2020 12/03/2022 12/03/2022 documented as of this encounter (statuses as of 04/18/2023) [facility] History of Past illness Narrative* Problem Noted Date Diagnosed Date Resolved Date Seizure-like activity 12/03/20222022 Coarse tremors 12/03/2022 12/04/2022 Sorethroat 12/03/2022 12/04/2022 Nausea vomiting and diarrhea 09/12/2022 09/12/2022 Bilious vomiting with nausea 09/12/2022 09/12/2022 Functional diarrhea 09/12/2022 12/04/19 23 Diarrhea 09/11/2022 09/11/2022 09/12/2022 Overview: Comment on above: DIARRHEA Lumbar pain 05/14/2022 09/12/2022 Overview: Diagnosed with DDD in [place] Generalized abdominal pain 03/04/2022 09/11/2022 0 12/03/2022 Overview: Comment on above: ABD PAIN Comment on above: ABD PAIN Acute cystitis 03/04/2022 09/11/2022 12/03/2022 Nausea and vomiting 01/21/2022 09/11/2022 09/13/19 Overview: Comment on above: NAUSEA Comment on above: NAUSEA Anxiety 08/30/2021 09/11/2022 12/03/2022 Overview: Last Assessment & Plan: Patient does have underlying anxiety which could have contributed as well. Depression, major, recurrent , in complete remission 01/22/2020 12/03/2022 12/03/2022 documented as of this encounter (statuses as of 04/19/2023) [facility] History of Past illness Narrative* Problem Noted Date Diagnosed Date Resolved Date Seizure-like activity 12/03/20222022 Coarse tremors 12/03/2022 12/04/2022 Sorethroat 12/03/2022 12/04/2022 Nausea vomiting and diarrhea 09/12/2022 09/12/2022 Bilious vomiting with nausea 09/12/2022 09/12/2022 Functional diarrhea 09/12/2022 12/04/19 23 Diarrhea 09/11/2022 09/11/2022 09/12/2022 Overview: Comment on above: DIARRHEA Lumbar pain 05/14/2022 09/12/2022 Overview: Diagnosed with DDD in [place] Generalized abdominal pain 03/04/2022 09/11/2022 0 12/03/2022 Overview: Comment on above: ABD PAIN Comment on above: ABD PAIN Acute cystitis 03/04/2022 09/11/2022 12/03/2022 Nausea and vomiting 01/21/2022 09/11/2022 09/13/19 23 Overview: Comment on above: NAUSEA Comment on above: NAUSEA Anxiety 08/30/2021 09/11/2022 12/03/2022 Overview: Last Assessment & Plan: Patient does have underlying anxiety which could have contributed as well. Depression, major, recurrent , in complete remission 01/22/2020 12/03/2022 12/03/2022 documented as of this encounter (statuses as of 04/19/2023) [facility] History of Past illness Narrative* Problem Noted Date Diagnosed Date Resolved Date Seizure-like activity 12/03/20222022 Coarse tremors 12/03/2022 12/04/2022 Sorethroat 12/03/2022 12/04/2022 Nausea vomiting and diarrhea 09/12/2022 09/12/2022 Bilious vomiting with nausea 09/12/2022 09/12/2022 Functional diarrhea 09/12/2022 12/04/19 23 Diarrhea 09/11/2022 09/11/2022 09/12/2022 Overview: Comment on above: DIARRHEA Lumbar pain 05/14/2022 09/12/2022 Overview: Diagnosed with DDD in [place] Generalized abdominal pain 03/04/2022 09/11/2022 0 12/03/2022 Overview: Comment on above: ABD PAIN Comment on above: ABD PAIN Acute cystitis 03/04/2022 09/11/2022 12/03/2022 Nausea and vomiting 01/21/2022 09/11/2022 09/13/19 Overview: Comment on above: NAUSEA Comment on above: NAUSEA Anxiety 08/30/2021 09/11/2022 12/03/2022 Overview: Last Assessment & Plan: Patient does have underlying anxiety which could have contributed as well. Depression, major, recurrent , in complete remission 01/22/2020 12/03/2022 12/03/2022 documented as of this encounter (statuses as of 04/20/2023) [facility] History of Past illness Narrative* Problem Noted Date Diagnosed Date Resolved Date Seizure-like activity 12/03/20222022 Coarse tremors 12/03/2022 12/04/2022 Sorethroat 12/03/2022 12/04/2022 Nausea vomiting and diarrhea 09/12/2022 09/12/2022 Bilious vomiting with nausea 09/12/2022 09/12/2022 Functional diarrhea 09/12/2022 12/04/19 23 Diarrhea 09/11/2022 09/11/2022 09/12/2022 Overview: Comment on above: DIARRHEA Lumbar pain 05/14/2022 09/12/2022 Overview: Diagnosed with DDD in [place] Generalized abdominal pain 03/04/2022 09/11/2022 0 12/03/2022 Overview: Comment on above: ABD PAIN Comment on above: ABD PAIN Acute cystitis 03/04/2022 09/11/2022 12/03/2022 Nausea and vomiting 01/21/2022 09/11/2022 09/13/19 Overview: Comment on above: NAUSEA Comment on above: NAUSEA Anxiety 08/30/2021 09/11/2022 12/03/2022 Overview: Last Assessment & Plan: Patient does have underlying anxiety which could have contributed as well. Depression, major, recurrent , in complete remission 01/22/2020 12/03/2022 12/03/2022 documented as of this encounter (statuses as of 04/20/2023) [facility] History of Past illness Narrative* Problem Noted Date Diagnosed Date Resolved Date Seizure-like activity 12/03/20222022 Coarse tremors 12/03/2022 12/04/2022 Sorethroat 12/03/2022 12/04/2022 Nausea vomiting and diarrhea 09/12/2022 09/12/2022 Bilious vomiting with nausea 09/12/2022 09/12/2022 Functional diarrhea 09/12/2022 12/04/19 23 Diarrhea 09/11/2022 09/11/2022 09/12/2022 Overview: Comment on above: DIARRHEA Lumbar pain 05/14/2022 09/12/2022 Overview: Diagnosed with DDD in [place] Generalized abdominal pain 03/04/2022 09/11/2022 0 12/03/2022 Overview: Comment on above: ABD PAIN Comment on above: ABD PAIN Acute cystitis 03/04/2022 09/11/2022 12/03/2022 Nausea and vomiting 01/21/2022 09/11/2022 09/13/19 Overview: Comment on above: NAUSEA Comment on above: NAUSEA Anxiety 08/30/2021 09/11/2022 12/03/2022 Overview: Last Assessment & Plan: Patient does have underlying anxiety which could have contributed as well. Depression, major, recurrent , in complete remission 01/22/2020 12/03/2022 12/03/2022 documented as of this encounter (statuses as of 04/29/2023) [facility] History of Past illness Narrative* Problem Noted Date Diagnosed Date Resolved Date Seizure-like activity 12/03/20222022 Coarse tremors 12/03/2022 12/04/2022 Sorethroat 12/03/2022 12/04/2022 Nausea vomiting and diarrhea 09/12/2022 09/12/2022 Bilious vomiting with nausea 09/12/2022 09/12/2022 Functional diarrhea 09/12/2022 12/04/19 23 Diarrhea 09/11/2022 09/11/2022 09/12/2022 Overview: Comment on above: DIARRHEA Lumbar pain 05/14/2022 09/12/2022 Overview: Diagnosed with DDD in [place] Generalized abdominal pain 03/04/2022 09/11/2022 0 12/03/2022 Overview: Comment on above: ABD PAIN Comment on above: ABD PAIN Acute cystitis 03/04/2022 09/11/2022 12/03/2022 Nausea and vomiting 01/21/2022 09/11/2022 09/13/19 Overview: Comment on above: NAUSEA Comment on above: NAUSEA Anxiety 08/30/2021 09/11/2022 12/03/2022 Overview: Last Assessment & Plan: Patient does have underlying anxiety which could have contributed as well. Depression, major, recurrent , in complete remission 01/22/2020 12/03/2022 12/03/2022 documented as of this encounter (statuses as of 04/29/2023) [facility] History of Past illness Narrative* Problem Noted Date Diagnosed Date Resolved Date Seizure-like activity 12/03/20222022 Coarse tremors 12/03/2022 12/04/2022 Sorethroat 12/03/2022 12/04/2022 Nausea vomiting and diarrhea 09/12/2022 09/12/2022 Bilious vomiting with nausea 09/12/2022 09/12/2022 Functional diarrhea 09/12/2022 12/04/19 Diarrhea 09/11/2022 09/11/2022 09/12/2022 Overview: Comment on above: DIARRHEA Lumbar pain 05/14/2022 09/12/2022 Overview: Diagnosed with DDD in [place] Generalized abdominal pain 03/04/2022 09/11/2022 0 12/03/2022 Overview: Comment on above: ABD PAIN Comment on above: ABD PAIN Acute cystitis 03/04/2022 09/11/2022 12/03/2022 Nausea and vomiting 01/21/2022 09/11/2022 09/13/19 Overview: Comment on above: NAUSEA Comment on above: NAUSEA Anxiety 08/30/2021 09/11/2022 12/03/2022 Overview: Last Assessment & Plan: Patient does have underlying anxiety which could have contributed as well. Depression, major, recurrent , in complete remission 01/22/2020 12/03/2022 12/03/2022 documented as of this encounter (statuses as of 05/03/2023) [facility] History of Past illness Narrative* Problem Noted Date Diagnosed Date Resolved Date Seizure-like activity 12/03/20222022 Coarse tremors 12/03/2022 12/04/2022 Sorethroat 12/03/2022 12/04/2022 Nausea vomiting and diarrhea 09/12/2022 09/12/2022 Bilious vomiting with nausea 09/12/2022 09/12/2022 Functional diarrhea 09/12/2022 12/04/19 23 Diarrhea 09/11/2022 09/11/2022 09/12/2022 Overview: Comment on above: DIARRHEA Lumbar pain 05/14/2022 09/12/2022 Overview: Diagnosed with DDD in [place] Generalized abdominal pain 03/04/2022 09/11/2022 0 12/03/2022 Overview: Comment on above: ABD PAIN Comment on above: ABD PAIN Acute cystitis 03/04/2022 09/11/2022 12/03/2022 Nausea and vomiting 01/21/2022 09/11/2022 09/13/19 Overview: Comment on above: NAUSEA Comment on above: NAUSEA Anxiety 08/30/2021 09/11/2022 12/03/2022 Overview: Last Assessment & Plan: Patient does have underlying anxiety which could have contributed as well. Depression, major, recurrent , in complete remission 01/22/2020 12/03/2022 12/03/2022 documented as of this encounter (statuses as of 05/09/2023) [facility] History of Past illness Narrative* Problem Noted Date Diagnosed Date Resolved Date Seizure-like activity 12/03/20222022 Coarse tremors 12/03/2022 12/04/2022 Sorethroat 12/03/2022 12/04/2022 Nausea vomiting and diarrhea 09/12/2022 09/12/2022 Bilious vomiting with nausea 09/12/2022 09/12/2022 Functional diarrhea 09/12/2022 12/04/19 23 Diarrhea 09/11/2022 09/11/2022 09/12/2022 Overview: Comment on above: DIARRHEA Lumbar pain 05/14/2022 09/12/2022 Overview: Diagnosed with DDD in [place] Generalized abdominal pain 03/04/2022 09/11/2022 0 12/03/2022 Overview: Comment on above: ABD PAIN Comment on above: ABD PAIN Acute cystitis 03/04/2022 09/11/2022 12/03/2022 Nausea and vomiting 01/21/2022 09/11/2022 09/13/19 Overview: Comment on above: NAUSEA Comment on above: NAUSEA Anxiety 08/30/2021 09/11/2022 12/03/2022 Overview: Last Assessment & Plan: Patient does have underlying anxiety which could have contributed as well. Depression, major, recurrent , in complete remission 01/22/2020 12/03/2022 12/03/2022 documented as of this encounter (statuses as of 05/09/2023) [facility] History of Past illness Narrative* Problem Noted Date Diagnosed Date Resolved Date Seizure-like activity 12/03/20222022 Coarse tremors 12/03/2022 12/04/2022 Sorethroat 12/03/2022 12/04/2022 Nausea vomiting and diarrhea 09/12/2022 09/12/2022 Bilious vomiting with nausea 09/12/2022 09/12/2022 Functional diarrhea 09/12/2022 12/04/19 23 Diarrhea 09/11/2022 09/11/2022 09/12/2022 Overview: Comment on above: DIARRHEA Lumbar pain 05/14/2022 09/12/2022 Overview: Diagnosed with DDD in [place] Generalized abdominal pain 03/04/2022 09/11/2022 0 12/03/2022 Overview: Comment on above: ABD PAIN Comment on above: ABD PAIN Acute cystitis 03/04/2022 09/11/2022 12/03/2022 Nausea and vomiting 01/21/2022 09/11/2022 09/13/19 Overview: Comment on above: NAUSEA Comment on above: NAUSEA Anxiety 08/30/2021 09/11/2022 12/03/2022 Overview: Last Assessment & Plan: Patient does have underlying anxiety which could have contributed as well. Depression, major, recurrent , in complete remission 01/22/2020 12/03/2022 12/03/2022 documented as of this encounter (statuses as of 05/11/2023) [facility] History of Past illness Narrative* Problem Noted Date Diagnosed Date Resolved Date Seizure-like activity 12/03/20222022 Coarse tremors 12/03/2022 12/04/2022 Sorethroat 12/03/2022 12/04/2022 Nausea vomiting and diarrhea 09/12/2022 09/12/2022 Bilious vomiting with nausea 09/12/2022 09/12/2022 Functional diarrhea 09/12/2022 12/04/19 23 Diarrhea 09/11/2022 09/11/2022 09/12/2022 Overview: Comment on above: DIARRHEA Lumbar pain 05/14/2022 09/12/2022 Overview: Diagnosed with DDD in [place] Generalized abdominal pain 03/04/2022 09/11/2022 0 12/03/2022 Overview: Comment on above: ABD PAIN Comment on above: ABD PAIN Acute cystitis 03/04/2022 09/11/2022 12/03/2022 Nausea and vomiting 01/21/2022 09/11/2022 09/13/19 Overview: Comment on above: NAUSEA Comment on above: NAUSEA Anxiety 08/30/2021 09/11/2022 12/03/2022 Overview: Last Assessment & Plan: Patient does have underlying anxiety which could have contributed as well. Depression, major, recurrent , in complete remission 01/22/2020 12/03/2022 12/03/2022 documented as of this encounter (statuses as of 05/12/2023) [facility] History of Past illness Narrative* Problem Noted Date Diagnosed Date Resolved Date Seizure-like activity 12/03/20222022 Coarse tremors 12/03/2022 12/04/2022 Sorethroat 12/03/2022 12/04/2022 Nausea vomiting and diarrhea 09/12/2022 09/12/2022 Bilious vomiting with nausea 09/12/2022 09/12/2022 Functional diarrhea 09/12/2022 12/04/19 23 Diarrhea 09/11/2022 09/11/2022 09/12/2022 Overview: Comment on above: DIARRHEA Lumbar pain 05/14/2022 09/12/2022 Overview: Diagnosed with DDD in [place] Generalized abdominal pain 03/04/2022 09/11/2022 0 12/03/2022 Overview: Comment on above: ABD PAIN Comment on above: ABD PAIN Acute cystitis 03/04/2022 09/11/2022 12/03/2022 Nausea and vomiting 01/21/2022 09/11/2022 09/13/19 Overview: Comment on above: NAUSEA Comment on above: NAUSEA Anxiety 08/30/2021 09/11/2022 12/03/2022 Overview: Last Assessment & Plan: Patient does have underlying anxiety which could have contributed as well. Depression, major, recurrent , in complete remission 01/22/2020 12/03/2022 12/03/2022 documented as of this encounter (statuses as of 05/12/2023) [facility] History of Past illness Narrative* Problem Noted Date Diagnosed Date Resolved Date Seizure-like activity 12/03/20222022 Coarse tremors 12/03/2022 12/04/2022 Sorethroat 12/03/2022 12/04/2022 Nausea vomiting and diarrhea 09/12/2022 09/12/2022 Bilious vomiting with nausea 09/12/2022 09/12/2022 Functional diarrhea 09/12/2022 12/04/19 23 Diarrhea 09/11/2022 09/11/2022 09/12/2022 Overview: Comment on above: DIARRHEA Lumbar pain 05/14/2022 09/12/2022 Overview: Diagnosed with DDD in [place] Generalized abdominal pain 03/04/2022 09/11/2022 0 12/03/2022 Overview: Comment on above: ABD PAIN Comment on above: ABD PAIN Acute cystitis 03/04/2022 09/11/2022 12/03/2022 Nausea and vomiting 01/21/2022 09/11/2022 09/13/19 23 Overview: Comment on above: NAUSEA Comment on above: NAUSEA Anxiety 08/30/2021 09/11/2022 12/03/2022 Overview: Last Assessment & Plan: Patient does have underlying anxiety which could have contributed as well. Depression, major, recurrent , in complete remission 01/22/2020 12/03/2022 12/03/2022 documented as of this encounter (statuses as of 05/13/2023) [facility] History of Past illness Narrative* Problem Noted Date Diagnosed Date Resolved Date Seizure-like activity 12/03/20222022 Coarse tremors 12/03/2022 12/04/2022 Sorethroat 12/03/2022 12/04/2022 Nausea vomiting and diarrhea 09/12/2022 09/12/2022 Bilious vomiting with nausea 09/12/2022 09/12/2022 Functional diarrhea 09/12/2022 12/04/19 23 Diarrhea 09/11/2022 09/11/2022 09/12/2022 Overview: Comment on above: DIARRHEA Lumbar pain 05/14/2022 09/12/2022 Overview: Diagnosed with DDD in [place] Generalized abdominal pain 03/04/2022 09/11/2022 0 12/03/2022 Overview: Comment on above: ABD PAIN Comment on above: ABD PAIN Acute cystitis 03/04/2022 09/11/2022 12/03/2022 Nausea and vomiting 01/21/2022 09/11/2022 09/13/19 Overview: Comment on above: NAUSEA Comment on above: NAUSEA Anxiety 08/30/2021 09/11/2022 12/03/2022 Overview: Last Assessment & Plan: Patient does have underlying anxiety which could have contributed as well. Depression, major, recurrent , in complete remission 01/22/2020 12/03/2022 12/03/2022 documented as of this encounter (statuses as of 05/19/2023) [facility] History of Past illness Narrative* Problem Noted Date Diagnosed Date Resolved Date Seizure-like activity 12/03/20222022 Coarse tremors 12/03/2022 12/04/2022 Sorethroat 12/03/2022 12/04/2022 Nausea vomiting and diarrhea 09/12/2022 09/12/2022 Bilious vomiting with nausea 09/12/2022 09/12/2022 Functional diarrhea 09/12/2022 12/04/19 23 Diarrhea 09/11/2022 09/11/2022 09/12/2022 Overview: Comment on above: DIARRHEA Lumbar pain 05/14/2022 09/12/2022 Overview: Diagnosed with DDD in [place] Generalized abdominal pain 03/04/2022 09/11/2022 0 12/03/2022 Overview: Comment on above: ABD PAIN Comment on above: ABD PAIN Acute cystitis 03/04/2022 09/11/2022 12/03/2022 Nausea and vomiting 01/21/2022 09/11/2022 09/13/19 Overview: Comment on above: NAUSEA Comment on above: NAUSEA Anxiety 08/30/2021 09/11/2022 12/03/2022 Overview: Last Assessment & Plan: Patient does have underlying anxiety which could have contributed as well. Depression, major, recurrent , in complete remission 01/22/2020 12/03/2022 12/03/2022 documented as of this encounter (statuses as of 05/19/2023) [facility] History of Past illness Narrative* Problem Noted Date Diagnosed Date Resolved Date Seizure-like activity 12/03/20222022 Coarse tremors 12/03/2022 12/04/2022 Sorethroat 12/03/2022 12/04/2022 Nausea vomiting and diarrhea 09/12/2022 09/12/2022 Bilious vomiting with nausea 09/12/2022 09/12/2022 Functional diarrhea 09/12/2022 12/04/19 23 Diarrhea 09/11/2022 09/11/2022 09/12/2022 Overview: Comment on above: DIARRHEA Lumbar pain 05/14/2022 09/12/2022 Overview: Diagnosed with DDD in [place] Generalized abdominal pain 03/04/2022 09/11/2022 0 12/03/2022 Overview: Comment on above: ABD PAIN Comment on above: ABD PAIN Acute cystitis 03/04/2022 09/11/2022 12/03/2022 Nausea and vomiting 01/21/2022 09/11/2022 09/13/19 Overview: Comment on above: NAUSEA Comment on above: NAUSEA Anxiety 08/30/2021 09/11/2022 12/03/2022 Overview: Last Assessment & Plan: Patient does have underlying anxiety which could have contributed as well. Depression, major, recurrent , in complete remission 01/22/2020 12/03/2022 12/03/2022 documented as of this encounter (statuses as of 05/23/2023) [facility] History of Past illness Narrative* Problem Noted Date Diagnosed Date Resolved Date Seizure-like activity 12/03/20222022 Coarse tremors 12/03/2022 12/04/2022 Sorethroat 12/03/2022 12/04/2022 Nausea vomiting and diarrhea 09/12/2022 09/12/2022 Bilious vomiting with nausea 09/12/2022 09/12/2022 Functional diarrhea 09/12/2022 12/04/19 23 Diarrhea 09/11/2022 09/11/2022 09/12/2022 Overview: Comment on above: DIARRHEA Lumbar pain 05/14/2022 09/12/2022 Overview: Diagnosed with DDD in [place] Generalized abdominal pain 03/04/2022 09/11/2022 0 12/03/2022 Overview: Comment on above: ABD PAIN Comment on above: ABD PAIN Acute cystitis 03/04/2022 09/11/2022 12/03/2022 Nausea and vomiting 01/21/2022 09/11/2022 09/13/19 Overview: Comment on above: NAUSEA Comment on above: NAUSEA Anxiety 08/30/2021 09/11/2022 12/03/2022 Overview: Last Assessment & Plan: Patient does have underlying anxiety which could have contributed as well. Depression, major, recurrent , in complete remission 01/22/2020 12/03/2022 12/03/2022 documented as of this encounter (statuses as of 05/25/2023) [facility] History of Past illness Narrative* Problem Noted Date Diagnosed Date Resolved Date Seizure-like activity 12/03/20222022 Coarse tremors 12/03/2022 12/04/2022 Sorethroat 12/03/2022 12/04/2022 Nausea vomiting and diarrhea 09/12/2022 09/12/2022 Bilious vomiting with nausea 09/12/2022 09/12/2022 Functional diarrhea 09/12/2022 12/04/19 23 Diarrhea 09/11/2022 09/11/2022 09/12/2022 Overview: Comment on above: DIARRHEA Lumbar pain 05/14/2022 09/12/2022 Overview: Diagnosed with DDD in [place] Generalized abdominal pain 03/04/2022 09/11/2022 0 12/03/2022 Overview: Comment on above: ABD PAIN Comment on above: ABD PAIN Acute cystitis 03/04/2022 09/11/2022 12/03/2022 Nausea and vomiting 01/21/2022 09/11/2022 09/13/19 23 Overview: Comment on above: NAUSEA Comment on above: NAUSEA Anxiety 08/30/2021 09/11/2022 12/03/2022 Overview: Last Assessment & Plan: Patient does have underlying anxiety which could have contributed as well. Depression, major, recurrent , in complete remission 01/22/2020 12/03/2022 12/03/2022 documented as of this encounter (statuses as of 05/10/2023) [facility] Miscellaneous Notes* Telephone Encounter - Kae Germain RN - 12/03/2022 12:23 AM EDT Patient calling stating that she has been seizing and just called EMS. She is calling to let [place] know, plus she feels that she needs a sooner EMU. Patient was advised to discuss this with the hospital staff, call 911 again if worse before they arrive. documented [facility] Miscellaneous Notes* Telephone Encounter - Erica Pichardo RN - 12/02/2022 3:24 PM EDT Patient currently in [place] ED Erica Pichardo RN * Telephone Encounter - Ruth Ellison - 12/02/2022 3:00 PM EDT Seizure activity: Name of Caller : Luli Johnson Relationship to patient: Self Contact phone number: [phone] (home) Date of seizure: 12/02/2022 Duration: 3-5MIN Back to Baseline (Yes/No): Yes Emergency treatment needed (Yes/No): yes in ED currently Patient of Dr. Godinez documented in [facility] Miscellaneous Notes* Telephone Encounter - Diane Argueta MD - 11/28/2022 8:55 AM EDT Patient called and states LMP 11/19/23 x 24 hours. 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 Had spotting after intercourse 3 days ago and had started to bleed today spotting . Took urine urine neg today. Does not use contraception. Pain states midline pelvic pain. States urine frequency. Rec patient to go to the ER. Diane Argueta MD documented in [facility] History of Present illness Narrative* Germania Goodwin MD - 11/24/2022 8:45 AM EDT documented in this [facility]Ohio [facility] Miscellaneous Notes* Telephone Encounter - Zahira Cerda RN - 11/19/2022 11:42 AM EDT Concern being addressed by BEHAVIORAL HEALTH THERAPIST. Will close encounter * Telephone Encounter - Tiffani Barros - 11/19/2022 8:33 AM EDT Patient phoning office asking to speak to PCP's RN as she cannot get a hold of her FRONT END MANAGER's office.Patient reports starting menstrual cycle a couple days ago and experiencing heave blood flow. Patient reports bleeding through her pads and having to throw away a couple pairs of underwear. Patient states that this is not normal for her. Reports cramping along with heavy blood flow. Patient is asking if this is normal? Encounter routed to RN and FRONT END MANAGER for further assistance. documented in this [facility] Miscellaneous Notes* Telephone Encounter - Chrissy Laws MA - 11/10/2022 1:23 PM EDT Patient cancelled appts with OBGYN and PCP office. Closing encounter * Telephone Encounter - Chrissy Laws MA - 11/09/2022 3:31 PM EDT Last read by Luli Johnson at 12:26 PM on 11/09/2022. * Telephone Encounter - Zahira Cerda RN - 11/05/2022 1:44 PM EDT LM on to return call for triage * Telephone Encounter - Gabrielle Pavon - 11/05/2022 12:34 PM EDT Patient called and requested to speak with nurse due to experiencing unbearable pain and vomiting. Please advise. Gabrielle Martinez Pss documented in this encounterOhio [facility] History of Present illness Narrative* Jessica Carrington LISW - 11/09/2022 8:18 AM EDT Behavioral Health Social Work Progress Note Patient identified for [facility] from: PCP Reason for referral: Resources Behavioral Health Resources: Psychiatry med management [facility] encounter type: MyChart Message Attempts to Outreach: 3 attempts Referral made: Psychiatry - Internal, Psychiatry - External Psychiatry-Internal referral type: Medication Management Psychiatry-External referral type: Medication Management Reason for external referral: Wait times at [facility] too long Final Disposition: Resources given Patient Discharged?: Yes Patient reported that caregiver was able to meet their needs today?: N/A Patient read [employer] message with requested resources by PCP. [facility] sent follow- up message to see ifany additional questions or concerns exist and if they were able to set up an appointment with a provider. JEFFY Calles, ACM-SW November 09, 2022 documented in this encounterOhio [facility]08[facility]23 Telephone encounter Note * Telephone Encounter - Chrissy Olson RN - 11/02/2022 8:27 AM EDT Pt address in [facility] [place] [facility] of out of transportation area. suggested that pt call [employer] to ask about transportation. Nurse left this message on pt's phone [phone] Miscellaneous Notes* Telephone Encounter - Chrissy Olson RN - 11/02/2022 8:27 AM EDT Pt address in [facility] of out of transportation area. Ladsrinivasa suggested that pt call [employer] to ask about transportation. Nurse left this message on pt's phone * Telephone Encounter - Chrissy Olson RN - 10/31/2022 8:57 AM EDT Situation: Pt calling for Rx for her anxiety. Background: See nurse triage Assessment: See nurse triage Recommendation: Pt already has appt 11/18 at 3:30 PM with [facility]. Nurse instructed pt to contact her PCP outside about dizziness and anemia. Pt should contact [facility] for ride to appt on 11/18 since transportation is issue for pt Pt verbalized understanding and agreed to plan of care. Reason for Disposition [1] Symptoms of anxiety or panic attack AND [2] is a chronic symptom (recurrent or ongoing AND present > 4 weeks) Answer Assessment - Initial Assessment Questions 1. CONCERN: What happened that made you call today? My anxiety is getting worse, even with counselor ing 2. ANXIETY SYMPTOM SCREENING: Can you describe how you have been feeling? (e.g., tense, restless,panicky, anxious, keyed up, trouble sleeping, trouble concentrating) Having outbursts- get upset and start crying, lashing out, trouble communicating and concentrating Sleep just fine 3. ONSET: How long have you been feeling this way? Going on for a month and a half 4. RECURRENT: Have you felt this way before? If Yes, ask: What happened that time? What helpedthese feelings go away in the past? Yes, have been on medication in the past but not currently on any Rx for the anxiety 5. RISK OF HARM - SUICIDAL IDEATION: Do you ever have thoughts of hurting or killing yourself? (e.g., yes, no, no but preoccupation with thoughts about ) - INTENT: Do you have thoughts of hurting or killing yourself right NOW? (e.g., yes, no, N/A) - PLAN: Do you have a specific plan for how you would do this? (e.g., gun, knife, overdose, no plan, N/A) No 6. RISK OF HARM - HOMICIDAL IDEATION: Do you ever have thoughts of hurting or killing someone else? (e.g., yes, no, no but preoccupation with thoughts about ) - INTENT: Do you have thoughts of hurting or killing someone right NOW? (e.g., yes, no, N/A) - PLAN: Do you have a specific plan for how you would do this? (e.g., gun, knife, no plan, N/A) No 7. FUNCTIONAL IMPAIRMENT: How have things been going for you overall? Have you had more difficultythan usual doing your normal daily activities? (e.g., better, same, worse; self-care, school, work, interactions) Able to do normal activities, struggling with finding a job and money issues 8. SUPPORT: Who is with you now? Who do you live with? Do you have family or friends who you can talk to? Lives by self, staying with boyfriend for right now 9. THERAPIST: Do you have a counselor or therapist? Name? [facility] in [place] 10. STRESSORS: Has there been any new stress or recent changes in your life? Finding a job and money 11. CAFFEINE USE: Do you drink caffeinated beverages, and how much each day? (e.g., coffee, tea, jr) Coffee but not every day, same with pop 12. ALCOHOL USE OR SUBSTANCE USE (DRUG USE): Do you drink alcohol or use any illegal drugs? Denies alcohol, smoke marijuana --trying to get medical card 13. OTHER SYMPTOMS: Do you have any other physical symptoms right now? (e.g., chest pain, palpitations, difficulty breathing, fever) Intermittent dizziness (not now), get out of breath with walking (not now), tremors, palpitations, anemia, low potassium Denies chest pain, fever, abd pain, 14. : Is there any chance you are ? When was your last menstrual period? No Protocols used: Anxiety and Panic Attack-A-AH documented in this [id number] Miscellaneous Notes* Telephone Encounter - Luisa Cote MA - 11/01/2022 9:38 AM EDT I spoke with patient and informed that referral placed for [facility] Luisa Cote MA * Telephone Encounter - Finn Elise PA-C - 11/01/2022 9:01 AM EDT Consult to placed Finn Elise PA-C * Telephone Encounter - Kelsey Pepe - 11/01/2022 8:51 AM EDT Luli Johnson called today. : 1990 Allergies: Ciprofloxacin, Cold Cream, Diphenhydramine, Hydrocortisone, Peanut, Sulfamethoxazole-Trimethoprim, Sulfa (Sulfonamide Antibiotics), Loratadine, and Sulfasalazine (home) [phone] (cell) Reason for call: Patient phoned the office advising that she wanted to discuss getting put on anxiety/depression medications; patient also noted that she is trying to get which is why she wanted to be put on medications safely. Patient stated that she tried to call Psychiatry, however, shestated they would no longer see her. Please advise on further recommendations. Symptoms, if any: n/a Patient last appointment: 09/29/2022 The patients preferred pharmacy has been captured for this encounter? not asked Kelsey Pepe documented in this encounterOhio [facility]-27-[facility]23 Telephone encounter Note * Telephone Encounter - Jane Olsonherine, RN - 10/31/2022 8:57 AM EDT Situation: Pt calling for Rx for her anxiety. Background: See nurse triage Assessment: See nurse triage Recommendation: Pt already has appt 11/18 at 3:30 PM with [facility]. Nurse instructed pt to contact her PCP outside about dizziness and anemia. Pt should contact [facility] for ride to appt on 11/18 since transportation is issue for pt Pt verbalized understanding and agreed to plan of care. Reason for Disposition [1] Symptoms of anxiety or panic attack AND [2] is a chronic symptom (recurrent or ongoing AND present > 4 weeks) Answer Assessment - Initial Assessment Questions 1. CONCERN: What happened that made you call today? My anxiety is getting worse, even with counselor ing 2. ANXIETY SYMPTOM SCREENING: Can you describe how you have been feeling? (e.g., tense, restless,panicky, anxious, keyed up, trouble sleeping, trouble concentrating) Having outbursts- get upset and start crying, lashing out, trouble communicating and concentrating Sleep just fine 3. ONSET: How long have you been feeling this way? Going on for a month and a half 4. RECURRENT: Have you felt this way before? If Yes, ask: What happened that time? What helpedthese feelings go away in the past? Yes, have been on medication in the past but not currently on any Rx for the anxiety 5. RISK OF HARM - SUICIDAL IDEATION: Do you ever have thoughts of hurting or killing yourself? (e.g., yes, no, no but preoccupation with thoughts about ) - INTENT: Do you have thoughts of hurting or killing yourself right NOW? (e.g., yes, no, N/A) - PLAN: Do you have a specific plan for how you would do this? (e.g., gun, knife, overdose, no plan, N/A) No 6. RISK OF HARM - HOMICIDAL IDEATION: Do you ever have thoughts of hurting or killing someone else? (e.g., yes, no, no but preoccupation with thoughts about ) - INTENT: Do you have thoughts of hurting or killing someone right NOW? (e.g., yes, no, N/A) - PLAN: Do you have a specific plan for how you would do this? (e.g., gun, knife, no plan, N/A) No 7. FUNCTIONAL IMPAIRMENT: How have things been going for you overall? Have you had more difficultythan usual doing your normal daily activities? (e.g., better, same, worse; self-care, school, work, interactions) Able to do normal activities, struggling with finding a job and money issues 8. SUPPORT: Who is with you now? Who do you live with? Do you have family or friends who you can talk to? Lives by self, staying with boyfriend for right now 9. THERAPIST: Do you have a counselor or therapist? Name? [facility] in [place] 10. STRESSORS: Has there been any new stress or recent changes in your life? Finding a job and money 11. CAFFEINE USE: Do you drink caffeinated beverages, and how much each day? (e.g., coffee, tea, jr) Coffee but not every day, same with pop 12. ALCOHOL USE OR SUBSTANCE USE (DRUG USE): Do you drink alcohol or use any illegal drugs? Denies alcohol, smoke marijuana --trying to get medical card 13. OTHER SYMPTOMS: Do you have any other physical symptoms right now? (e.g., chest pain, palpitations, difficulty breathing, fever) Intermittent dizziness (not now), get out of breath with walking (not now), tremors, palpitations, anemia, low potassium Denies chest pain, fever, abd pain, 14. : Is there any chance you are ? When was your last menstrual period? No Protocols used: Anxiety and Panic Attack-A-AH [id number] Miscellaneous Notes* Telephone Encounter - Chrissy Stewart RN - 10/15/2022 11:55 AM EDT Receive call from patient who was identified by name and . Patient reports pelvic pain is now resolving. Will reach out to PCP if symptoms reoccur d/t normal US. Chrissy Stewart RN * Telephone Encounter - Chrissy Stewart RN - 10/15/2022 11:13 AM EDT Call placed to patient. [facility] for patient to call [phone], and request to speak to a nurse. Chrissy Stewart RN * Telephone Encounter - Devi Louise RN - 10/11/2022 2:24 PM EDT Call placed to patient, left message for return call. Devi Louise RN * Telephone Encounter - Zahira Cerda RN - 10/11/2022 1:41 PM EDT Patient calling internal medicine regarding below - advised to call BEHAVIORAL HEALTH THERAPIST office and speak to BEHAVIORAL HEALTH THERAPIST nurse regarding concerns. - states pelvic pain x 2 weeks or more. - recent US ordered by BEHAVIORAL HEALTH THERAPIST 10/09 - she will do so * Telephone Encounter - Jorge L Mcqueen - 10/11/2022 1:22 PM EDT Patient called and is stating she has pelvic pain and concerns and would like to speak toa nurse. Please assist. documented in this encounterOhio State East Hospital08-07-2023 Miscellaneous Notes* Telephone Encounter - Marnie Salazar RN - 10/11/2022 2:55 PM EDT Duplicate encounter documented in this encounterOhio State East Hospital08-05-2023 NoteHNO ID: [id number] Author: dEyta Emery RT(Almaz) Service: Radiology Author Type: Technologist Type: Progress Notes Filed: 10/09/2022 2:06 PM Note Text: Radiology Service Progress Note PATIENT NAME: Luli Johnson DATE OF SERVICE: October 09, 2022 TIME: 2:06 PM PATIENT IDENTITY VERIFICATION COMPLETED USING TWO (2) IDENTIFIERS: Name and Date of confirmed by patient verbally. FALL SCREENING: Has the patient had 2 falls in the last year or 1 fall with injury or currently using an Ambulatory Assistive Device (Walker, Cane, Wheelchair, Crutches, etc.)? No PATIENT GENDER DATA: Female. status: : No status: NO. PATIENT RELEVANT IMPLANT DATA REVIEWED: Yes RADIOLOGY DEPARTMENT: Ultrasound PERIPHERAL IV DATA: Not applicable SIGNED BY: RT Bobby(R) October 09, 2022 2:06 [facility]08-05-2023 History of Present illness Narrative* Edyta Emery RT(R) - 10/09/2022 2:00 PM EDT Radiology Service Progress Note PATIENT NAME: Luli Johnson DATE OF SERVICE: October 09, 2022 TIME: 2:06 PM PATIENT IDENTITY VERIFICATION COMPLETED USING TWO (2) IDENTIFIERS: Name and Date of confirmedby patient verbally. FALL SCREENING: Has the patient had 2 falls in the last year or 1 fall with injury or currently using an Ambulatory Assistive Device (Walker, Cane, Wheelchair, Crutches, etc.)? No PATIENT GENDER DATA: Female. status: : No status: NO. PATIENT RELEVANT IMPLANT DATA REVIEWED: Yes RADIOLOGY DEPARTMENT: Ultrasound PERIPHERAL IV DATA: Not applicable SIGNED BY: RT Bobby(Almaz) October 09, 2022 2:06 PM documented in this encounterOhio State East Hospital08-04-2023 Miscellaneous Notes* Telephone Encounter - Chrissy Stewart RN - 10/08/2022 12:07 PM EDT Received message from Dr. Nunes stating: Agree with recommendation. If urinary symptoms persist patient can visit express care for management. Thank you Matthieu García MD Call place to patient who was identified by name and . Reviewed/discussed Dr. Nunes previous message in detail. Patient has not done UC at this time. Encourage to go to any [facility] for UC. Patient verbalized understanding and states has no questions atthis time. Chrissy Stewart RN * Telephone Encounter - Chrissy Stewart RN - 10/07/2022 9:19 AM EDT Receive call from patient who was identified by name and . Patient is currently TTC. Took UPT yesterday and reports negative result. LMP: 09/24/2022. Was a normal period for her. Patient called today to report morning sickness. Symptoms start yesterday. No recent changes to diet. Unsure if and too early to test. Also reports urine is concentrated and has many bubblesnoted. Has increased frequency and urgency. Is drinking fluids, but admits could drink more. No dysuria, hematuria. UC order placed. Encourage to go to any [facility] Lab to complete. Encourage to increase fluid intake. Encourage to take another UPT next week if menses have not occurred. Message forwarded to Dr. Nunes for review. Chrissy Stewart RN documented in this encounterOhio State East Hospital08-02-2023 Miscellaneous Notes* Telephone Encounter - Sravani Dickson RN - 10/06/2022 9:48 AM EDT Outgoing call placed to pt, identified by name and . Patient educated on provider's recommendations and verbalized understanding. Sravani Dickson RN * Telephone Encounter - Sravani Dickson RN - 10/06/2022 9:47 AM EDT Images from the original note were not included. Reynaldo Cerda APRN.GARAGE LABORER [facility] 5 minutes ago (9:42 AM) SY Agree with nursing recommendations and monitoring symptoms, to update office if worsening or changing. Thank you! Reynaldo Cerda APRN.GARAGE LABORER * Telephone Encounter - Sravani Dickson RN - 10/06/2022 9:33 AM EDT Incoming call from patient, identified by name and . Patient calling with Non specific cramping in lower abdomen. Describes as a pinchy feeling. Questioning if that is normal during ovulation. Actively trying to conceive.Reviewed with patient once +HPT, can call office to schedule NOB visit. LMP: 09/24/2022 Tracking ovulation, currently ovulating per patient. Denies any urinary complaints. Advised patient cramping can occur in mid cycle especially around ovulation. Patient verbalized understanding, with no further questions or concerns. Does not need a call back unless further information is given. Sravani Dickson RN documented in this encounterOhio State East Hospital07-30-2023 History of Present illness Narrative* Kaylie Iraheta RN - 10/03/2022 3:19 PM EDT TRANSITION CARE MANAGEMENT (TCM) FOLLOW-UP NOTE Provider Action/FYI Completed PCP FU 09/29/22 for dizziness NEURO FU 10/15/22 Final outreach attempt to patient following hospital discharge. No answer, left voice message with call back number and to follow up with PCP for questions/concerns and continued care. SUMMARY: Discharge Network Status: In-Network Discharge Pt discharged from [facility] on 09/12/22. Admitted for: Nausea and vomiting Senior Genetic Counselor plan for next outreach: No further follow up needed at this time LATHA Education Ordered -: No Signature Kaylie Iraheta RN October 03, 2022 documented in this encounterOhio State East Hospital07-29-2023 Miscellaneous Notes* Telephone Encounter - Pastora Spicer MD - 10/02/2022 4:20 PM EDT Patient c/o 10/10 abdominal pain with a tender bulge she thinks is a hernia, unable to tolerate PO,no BM in 6 days. Not . Discussed this does not sound like a BEHAVIORAL HEALTH THERAPIST concern and if severe pain should go to ED. Pastora Spicer MD documented in this encounterOhio State East Hospital07-27-2023 Miscellaneous Notes* Telephone Encounter - Marya Pérez RN - 09/30/2022 9:03 PM EDT Reason for Call: Patient states she passed out again. This time for 10 minutes. Patient came to and she was shaky and sweaty. She is up walking around now. She is having some chest pain. Outcome: Patient advised to call 911. She verbalized understanding and agreed. Reason for Disposition Chest pain Protocols used: [id number] documented in this encounterOhio State East Hospital07-27-2023 Miscellaneous Notes* Telephone Encounter - Sravani Dickson RN - 09/30/2022 3:21 PM EDT Seen Internal medicine yesterday. Sravani Dickson RN * Telephone Encounter - Sravani Dickson RN - 09/24/2022 9:58 AM EDT Incoming call from patient, identified by name and . Patient reports started to have vaginal bleeding since phone call with the RN. Advised patient of Dr. Favio Ahuja message, patient verbalized understanding. Patient reports having bright red bleeding from both ends patient states noticing bright red blood when wiping her behind Patient reports history of hemorrhoids. Denies any recent bowel movement. States only has issues with hemorrhoids with BM. Advised patient to contact PCP office for hemorrhoids and possible evaluation. Advised patient if rectal bleeding increases or becomes lightheaded or dizzy to seek care in the emergency room, patientverbalized understanding. Patient verbalized understanding. Sravani Dickson RN * Telephone Encounter - Sravani Dickson RN - 09/24/2022 9:22 AM EDT Left message for pt to call back. Sravani Dickson RN * Telephone Encounter - Sravani Dickson RN - 09/24/2022 9:21 AM EDT Images from the original note were not included. Matthieu Curtis MD [facility] Just now (9:19 AM) ME Hi, Hcg only if positive Home test. If no period for 2-3 month, need to have an office visit to discuss further management. Thank you Matthieu García MD * Telephone Encounter - Sravani Dickson RN - 09/24/2022 8:15 AM EDT Incoming call from patient, identified by name and . Patient calling with concern of late period and when to test for . Patient reports period was supposed to start on 09/22? LMP: 08/04/2022. Reports - HPT in August but no period in August. Patient denies being on any control and actively having unprotected intercourse. Patient reports periods were starting to become regular after history of irregular periods. Patient denies any pain, reports has history of pelvic pain with intercourse. Advised patient to take HPT and call the office if positive result. Advised patient to continue to monitor for menses. HCG pended if appropriate. Sravani Dickson RN documented in this encounterOhio State East Hospital07-26-2023 History of Present illness Narrative* Madi Stuart MD - 09/29/2022 10:23 AM EDT Chief complaint: ER F/U HPI: Pt seen in the ED yesterday for dizziness, likely vertigo as per clinical exam. Taking meclizine and feels better. Comes with boyfriend. Wants referral info for neurology due to frequent episodes. Also given referral for vestibular clinic REVIEW OF SYSTEMS: CONSTITUTIONAL: No fevers, chills, nightsweats, unintended weight loss CARDIOVASCULAR: No chest pain, palpitations, orthopnea, PND, ankle edema. PULM: No dyspnea, unexplained cough. GI: No dysphagia/odynophagia, problematic reflux, constipation, diarrhea, changes in stool habits, hematochezia, melena. : No new urinary complaints, including dysuria, gross hematuria or pyuria. INTEGUMENTARY: No new skin changes (rash, new or changing mole, new growth) PHYSICAL EXAMINATION: BP 104/68 (BP Site: Right Arm) Pulse 78 Temp 37.2 C (98.9 F) (Right Tympanic) Wt 50.8 kg (112lb) LMP 08/26/2022 (Exact Date) BMI 22.62 kg/m General appearance -alert, in no acute distress Eyes - Anicteric sclera. Lungs - clear to auscultation, no wheezing or rhonchi Heart - RRR without murmur, gallop, or rubs. No ectopy Abdomen - Normal abdominal exam, Abdomen soft, non-tender. Bowel sounds normal. No masses, organomegaly Extremities - no edema Neuro - Gait normal. Normal strength and sensation b/l upper and lower ext, no cerebellar signs, rhomberg neg Psych-affect flat PAST MEDICAL HISTORY Diagnosis Date Anxiety and depression Bacterial vaginosis Herpes simplex vulvovaginitis 07/07/2022 Hypotension IBS (irritable bowel syndrome) Ovarian cyst UTI (urinary tract infection) Vaginal atrophy Social History Tobacco Use Smoking status: Never Passive exposure: Never Smokeless tobacco: Never Tobacco comments: Smokes marijuana Substance Use Topics Alcohol use: Not Currently Comment: occ Drug use: Yes Types: Marijuana FAMILY HISTORY Problem Relation Age of Onset Hypertension Mother Autism Sister Parkinson s Disease Maternal Grandmother Hypertension Maternal Grandfather ASSESSMENT/PLAN: 1. Dizziness - ICD9: 780.4, ICD10: R42 Resolved now, feels better, likely vertigo. Referral info provided for neurology again Madi Stuart MD documented in this encounterOhio State East Hospital07-20-2023 History of Present illness Narrative* Ana Brandt PA-C - 09/23/2022 9:00 AM EDT SUBJECTIVE Luli Johnson is a 31 year old female here for Patient presents with: ER F/U Patient presents to the office for follow-up Had called yesterday stating vomiting blood and passing out EMS called on patient behalf Chart review does not find any discharge summary or HPI Had been to ED the day prior as well Labs indicated UTI, discharged on keflex ED visits in the last month: 6 Today she reports continued symptoms States the ED visit 2 days ago they had to do compressions because she was unresponsive Was discharged that same day Then went back to hospital yesterday Per patient, ED did labs yesterday which were normal Was mentioned to her that she should have testing for lupus She has appt with cardio next week States she has seen psychiatry Does not want to be on medication Sees counseling HISTORIES FAMILY HISTORY Problem Relation Age of Onset Hypertension Mother Autism Sister Parkinson s Disease Maternal Grandmother Hypertension Maternal Grandfather PAST MEDICAL HISTORY Diagnosis Date Anxiety and depression Bacterial vaginosis Herpes simplex vulvovaginitis 07/07/2022 Hypotension IBS (irritable bowel syndrome) Ovarian cyst UTI (urinary tract infection) Vaginal atrophy PAST SURGICAL HISTORY Procedure Laterality Date CHOLECYSTECTOMY HX 2020 KIDNEY STONE SURGERY HX Right 10/31/2019 Social History Tobacco Use Smoking status: Never Passive exposure: Never Smokeless tobacco: Never Tobacco comments: Smokes marijuana Substance Use Topics Alcohol use: Not Currently Comment: occ Drug use: Yes Types: Marijuana REVIEW OF SYSTEMS: Past medical history was reviewed and updated. Past surgical history was reviewed and updated. Family History: was reviewed and updated. Past social history was reviewed and updated. GENERAL: No weight loss, malaise or fevers RESPIRATORY: Negative for cough, hemoptysis, wheezing, COPD, dyspnea or shortness of breath CARDIOVASCULAR: see HPI GI: No nausea, vomiting, or diarrhea PSYCH: negative for symptoms of depression and anxiety. NEURO: negative for migraine headaches PHYSICAL EXAMINATION: BP 103/72 (BP Site: Right Arm) Pulse 105 Temp 36.2 C (97.2 F) (Temporal) Wt 49.4 kg (109 lb) LMP 08/26/2022 (Exact Date) BMI 22.02 kg/m General Appearance: well appearing, in no acute distress, alert, no palor, no jaundice Lungs: lungs clear to auscultation. No wheezing, rhonchi, rales Heart: RRR without murmur, gallop, or rubs. No ectopy Abdomen: Abdomen soft, non-tender. Extremities: No clubbing, cyanosis, or edema. Peripheral Pulses: Normal Neurologic: Gait normal. ASSESSMENT/PLAN: 1. Hospital discharge follow-up - ICD9: V67.59, ICD10: Z09 (primary diagnosis) - reviewed records as able - keep follow-up with cardio 2. Anxiety - ICD9: 300.00, ICD10: F41.9 - highly encouraged patient to see psychiatry and consider medication - suspect contributing to symptoms and multiple ED visits Ana Brandt PA-C documented in this encounterOhio State East Hospital07-19-2023 Miscellaneous Notes* Telephone Encounter - Kelsey Pepe - 09/22/2022 1:03 PM EDT Attempted to contact patient due to PSS advising she was no longer responsive on the telephone. No contact was made but left a detailed voicemail advising that EMS was contacted and is on their was to her residence. Advised PSS to remain on the line, even though there is air, to see if we can hear background noise of EMS arriving. PSS confirmed at 1:00 PM that she could hear EMS in the backgr ound conversing with patient. Emergency Response Report has been completed. Kelsey Pepe * Telephone Encounter - Gabrielle Pavon - 09/22/2022 12:53 PM EDT Patient called to report she vomited today, which contained blood, and has experienced extreme dizziness and feels as though she will pass out. Patient reports lying down in bedroom due to dizziness and requested nurse in office call ED. Continued speaking with patient on phone while COSTING MANAGER called 911 to request squad sent to patient. Patient continued speaking but became silent and unresponsive. Stayed on phone with patient to confirm squad arrival and able to rouse patient at 1:00 pm. Gabrielle Barker documented in this encounterOhio State East Hospital07-10-2023 History of Present illness Narrative* Kaylie Iraheta RN - 09/13/2022 3:53 PM EDT TCM Home Visit Referral Source of Stratification: [facility] Hospital Admission Status: Discharged Readmission Risk Score: 9 FERNANDA Score: 3 Patient meets program referral criteria: No Patient does not qualify for High Risk TCM Home Visit program due to: Discharged home, does not meet program criteria TRANSITIONAL CARE MANAGEMENT (TCM) COMMUNITY MONITORING PROGRAM Provider Action/FYI: Spoke with patient who reports that she is unable to tolerated any po. Vomiting x4 Urine dark Feeling dizzy and unable to drive. Has no one to take her to the ER Plans to call the squad to go back to [facility] ED for evaluation. Routed update to PCP Madi Stuart MD Follow up : GI provider on 09/20 SUMMARY: Discharge Network Status: In-Network Discharge Pt discharged from [facility] on 09/12/22. Admitted for: Nausea and vomiting Contact made with patient: Yes Hi my name is Kaylie Iraheta RN and I am calling [facility] the [facility] on behalf of your PCP,Madi Stuart MD I understand you were recently in the hospital so I am calling to check in with you to ensure you are feeling well now that you're home. May I ask you a few questions related to your hospital stay and well-being? Yes Contact with patient post discharge, spoke to patient. Patient identified by name and . Do you feel your health is BETTER, WORSE, or the SAME since leaving the hospital? Worse Outreach Ended documented in this encounterOhio State East Hospital07-09-2023 History of Past illness Narrative* Problem Noted Date Diagnosed Date Resolved Date Nausea vomiting and diarrhea 09/12/2022 09/12/2022 Bilious vomiting with nausea 09/12/2022 09/12/2022 Diarrhea 09/11/2022 09/11/2022 09/12/2022 Overview: Comment on above: DIARRHEA Lumbar pain 05/14/2022 09/12/2022 Overview: Diagnosed with DDD in [place] Nausea and vomiting 01/21/2022 09/11/2022 09/13/19 Overview: Comment on above: NAUSEA Comment on above: NAUSEA documented as of this encounter (statuses as of 09/14/2022) [facility] History of Past illness Narrative* Problem Noted Date Diagnosed Date Resolved Date Nausea vomiting and diarrhea 09/12/2022 09/12/2022 Bilious vomiting with nausea 09/12/2022 09/12/2022 Diarrhea 09/11/2022 09/11/2022 09/12/2022 Overview: Comment on above: DIARRHEA Lumbar pain 05/14/2022 09/12/2022 Overview: Diagnosed with DDD in [place] Nausea and vomiting 01/21/2022 09/11/2022 09/13/19 Overview: Comment on above: NAUSEA Comment on above: NAUSEA documented as of this encounter (statuses as of 09/22/2022) [facility] History of Past illness Narrative* Problem Noted Date Diagnosed Date Resolved Date Nausea vomiting and diarrhea 09/12/2022 09/12/2022 Bilious vomiting with nausea 09/12/2022 09/12/2022 Diarrhea 09/11/2022 09/11/2022 09/12/2022 Overview: Comment on above: DIARRHEA Lumbar pain 05/14/2022 09/12/2022 Overview: Diagnosed with DDD in [place] Nausea and vomiting 01/21/2022 09/11/2022 09/13/19 Overview: Comment on above: NAUSEA Comment on above: NAUSEA documented as of this encounter (statuses as of 09/23/2022) [facility] History of Past illness Narrative* Problem Noted Date Diagnosed Date Resolved Date Nausea vomiting and diarrhea 09/12/2022 09/12/2022 Bilious vomiting with nausea 09/12/2022 09/12/2022 Diarrhea 09/11/2022 09/11/2022 09/12/2022 Overview: Comment on above: DIARRHEA Lumbar pain 05/14/2022 09/12/2022 Overview: Diagnosed with DDD in [place] Nausea and vomiting 01/21/2022 09/11/2022 09/13/19 Overview: Comment on above: NAUSEA Comment on above: NAUSEA documented as of this encounter (statuses as of 09/29/2022) [facility] History of Past illness Narrative* Problem Noted Date Diagnosed Date Resolved Date Nausea vomiting and diarrhea 09/12/2022 09/12/2022 Bilious vomiting with nausea 09/12/2022 09/12/2022 Diarrhea 09/11/2022 09/11/2022 09/12/2022 Overview: Comment on above: DIARRHEA Lumbar pain 05/14/2022 09/12/2022 Overview: Diagnosed with DDD in [place] Nausea and vomiting 01/21/2022 09/11/2022 09/13/19 Overview: Comment on above: NAUSEA Comment on above: NAUSEA documented as of this encounter (statuses as of 10/01/2022) [facility] History of Past illness Narrative* Problem Noted Date Diagnosed Date Resolved Date Nausea vomiting and diarrhea 09/12/2022 09/12/2022 Bilious vomiting with nausea 09/12/2022 09/12/2022 Diarrhea 09/11/2022 09/11/2022 09/12/2022 Overview: Comment on above: DIARRHEA Lumbar pain 05/14/2022 09/12/2022 Overview: Diagnosed with DDD in [place] Nausea and vomiting 01/21/2022 09/11/2022 09/13/19 Overview: Comment on above: NAUSEA Comment on above: NAUSEA documented as of this encounter (statuses as of 10/02/2022) [facility] History of Past illness Narrative* Problem Noted Date Diagnosed Date Resolved Date Nausea vomiting and diarrhea 09/12/2022 09/12/2022 Bilious vomiting with nausea 09/12/2022 09/12/2022 Diarrhea 09/11/2022 09/11/2022 09/12/2022 Overview: Comment on above: DIARRHEA Lumbar pain 05/14/2022 09/12/2022 Overview: Diagnosed with DDD in [place] Nausea and vomiting 01/21/2022 09/11/2022 09/13/19 Overview: Comment on above: NAUSEA Comment on above: NAUSEA documented as of this encounter (statuses as of 10/03/2022) [facility] History of Past illness Narrative* Problem Noted Date Diagnosed Date Resolved Date Nausea vomiting and diarrhea 09/12/2022 09/12/2022 Bilious vomiting with nausea 09/12/2022 09/12/2022 Diarrhea 09/11/2022 09/11/2022 09/12/2022 Overview: Comment on above: DIARRHEA Lumbar pain 05/14/2022 09/12/2022 Overview: Diagnosed with DDD in [place] Nausea and vomiting 01/21/2022 09/11/2022 09/13/19 Overview: Comment on above: NAUSEA Comment on above: NAUSEA documented as of this encounter (statuses as of 10/06/2022) [facility] History of Past illness Narrative* Problem Noted Date Diagnosed Date Resolved Date Nausea vomiting and diarrhea 09/12/2022 09/12/2022 Bilious vomiting with nausea 09/12/2022 09/12/2022 Diarrhea 09/11/2022 09/11/2022 09/12/2022 Overview: Comment on above: DIARRHEA Lumbar pain 05/14/2022 09/12/2022 Overview: Diagnosed with DDD in [place] Nausea and vomiting 01/21/2022 09/11/2022 09/13/19 Overview: Comment on above: NAUSEA Comment on above: NAUSEA documented as of this encounter (statuses as of 10/08/2022) [facility] History of Past illness Narrative* Problem Noted Date Diagnosed Date Resolved Date Nausea vomiting and diarrhea 09/12/2022 09/12/2022 Bilious vomiting with nausea 09/12/2022 09/12/2022 Diarrhea 09/11/2022 09/11/2022 09/12/2022 Overview: Comment on above: DIARRHEA Lumbar pain 05/14/2022 09/12/2022 Overview: Diagnosed with DDD in [place] Nausea and vomiting 01/21/2022 09/11/2022 09/13/19 Overview: Comment on above: NAUSEA Comment on above: NAUSEA documented as of this encounter (statuses as of 10/10/2022) [facility] History of Past illness Narrative* Problem Noted Date Diagnosed Date Resolved Date Nausea vomiting and diarrhea 09/12/2022 09/12/2022 Bilious vomiting with nausea 09/12/2022 09/12/2022 Diarrhea 09/11/2022 09/11/2022 09/12/2022 Overview: Comment on above: DIARRHEA Lumbar pain 05/14/2022 09/12/2022 Overview: Diagnosed with DDD in [place] Nausea and vomiting 01/21/2022 09/11/2022 09/13/19 Overview: Comment on above: NAUSEA Comment on above: NAUSEA documented as of this encounter (statuses as of 10/12/2022) [facility] History of Past illness Narrative* Problem Noted Date Diagnosed Date Resolved Date Nausea vomiting and diarrhea 09/12/2022 09/12/2022 Bilious vomiting with nausea 09/12/2022 09/12/2022 Diarrhea 09/11/2022 09/11/2022 09/12/2022 Overview: Comment on above: DIARRHEA Lumbar pain 05/14/2022 09/12/2022 Overview: Diagnosed with DDD in [place] Nausea and vomiting 01/21/2022 09/11/2022 09/13/19 Overview: Comment on above: NAUSEA Comment on above: NAUSEA documented as of this encounter (statuses as of 10/16/2022) [facility] History of Past illness Narrative* Problem Noted Date Diagnosed Date Resolved Date Nausea vomiting and diarrhea 09/12/2022 09/12/2022 Bilious vomiting with nausea 09/12/2022 09/12/2022 Diarrhea 09/11/2022 09/11/2022 09/12/2022 Overview: Comment on above: DIARRHEA Lumbar pain 05/14/2022 09/12/2022 Overview: Diagnosed with DDD in [place] Nausea and vomiting 01/21/2022 09/11/2022 09/13/19 Overview: Comment on above: NAUSEA Comment on above: NAUSEA documented as of this encounter (statuses as of 11/01/2022) [facility] History of Past illness Narrative* Problem Noted Date Diagnosed Date Resolved Date Nausea vomiting and diarrhea 09/12/2022 09/12/2022 Bilious vomiting with nausea 09/12/2022 09/12/2022 Diarrhea 09/11/2022 09/11/2022 09/12/2022 Overview: Comment on above: DIARRHEA Lumbar pain 05/14/2022 09/12/2022 Overview: Diagnosed with DDD in [place] Nausea and vomiting 01/21/2022 09/11/2022 09/13/19 Overview: Comment on above: NAUSEA Comment on above: NAUSEA documented as of this encounter (statuses as of 11/09/2022) [facility] History of Past illness Narrative* Problem Noted Date Diagnosed Date Resolved Date Nausea vomiting and diarrhea 09/12/2022 09/12/2022 Bilious vomiting with nausea 09/12/2022 09/12/2022 Diarrhea 09/11/2022 09/11/2022 09/12/2022 Overview: Comment on above: DIARRHEA Lumbar pain 05/14/2022 09/12/2022 Overview: Diagnosed with DDD in [place] Nausea and vomiting 01/21/2022 09/11/2022 09/13/19 Overview: Comment on above: NAUSEA Comment on above: NAUSEA documented as of this encounter (statuses as of 11/10/2022) [facility] History of Past illness Narrative* Problem Noted Date Diagnosed Date Resolved Date Nausea vomiting and diarrhea 09/12/2022 09/12/2022 Bilious vomiting with nausea 09/12/2022 09/12/2022 Diarrhea 09/11/2022 09/11/2022 09/12/2022 Overview: Comment on above: DIARRHEA Lumbar pain 05/14/2022 09/12/2022 Overview: Diagnosed with DDD in [place] Nausea and vomiting 01/21/2022 09/11/2022 09/13/19 Overview: Comment on above: NAUSEA Comment on above: NAUSEA documented as of this encounter (statuses as of 11/19/2022) [facility] History of Past illness Narrative* Problem Noted Date Diagnosed Date Resolved Date Nausea vomiting and diarrhea 09/12/2022 09/12/2022 Bilious vomiting with nausea 09/12/2022 09/12/2022 Diarrhea 09/11/2022 09/11/2022 09/12/2022 Overview: Comment on above: DIARRHEA Lumbar pain 05/14/2022 09/12/2022 Overview: Diagnosed with DDD in [place] Nausea and vomiting 01/21/2022 09/11/2022 09/13/19 Overview: Comment on above: NAUSEA Comment on above: NAUSEA documented as of this encounter (statuses as of 11/27/2022) [facility] History of Past illness Narrative* Problem Noted Date Diagnosed Date Resolved Date Nausea vomiting and diarrhea 09/12/2022 09/12/2022 Bilious vomiting with nausea 09/12/2022 09/12/2022 Diarrhea 09/11/2022 09/11/2022 09/12/2022 Overview: Comment on above: DIARRHEA Lumbar pain 05/14/2022 09/12/2022 Overview: Diagnosed with DDD in [place] Nausea and vomiting 01/21/2022 09/11/2022 09/13/19 Overview: Comment on above: NAUSEA Comment on above: NAUSEA documented as of this encounter (statuses as of 11/28/2022) [facility] History of Past illness Narrative* Problem Noted Date Diagnosed Date Resolved Date Nausea vomiting and diarrhea 09/12/2022 09/12/2022 Bilious vomiting with nausea 09/12/2022 09/12/2022 Diarrhea 09/11/2022 09/11/2022 09/12/2022 Overview: Comment on above: DIARRHEA Lumbar pain 05/14/2022 09/12/2022 Overview: Diagnosed with DDD in [place] Nausea and vomiting 01/21/2022 09/11/2022 09/13/19 Overview: Comment on above: NAUSEA Comment on above: NAUSEA documented as of this encounter (statuses as of 12/03/2022) [facility] History of Past illness Narrative* Problem Noted Date Diagnosed Date Resolved Date Nausea vomiting and diarrhea 09/12/2022 09/12/2022 Bilious vomiting with nausea 09/12/2022 09/12/2022 Functional diarrhea 09/12/2022 12/04/19 23 Diarrhea 09/11/2022 09/11/2022 09/12/2022 Overview: Comment on above: DIARRHEA Lumbar pain 05/14/2022 09/12/2022 Overview: Diagnosed with DDD in [place] Generalized abdominal pain 03/04/2022 09/11/2022 0 12/03/2022 Overview: Comment on above: ABD PAIN Comment on above: ABD PAIN Acute cystitis 03/04/2022 09/11/2022 12/03/2022 Nausea and vomiting 01/21/2022 09/11/2022 09/13/19 Overview: Comment on above: NAUSEA Comment on above: NAUSEA Anxiety 08/30/2021 09/11/2022 12/03/2022 Overview: Last Assessment & Plan: Patient does have underlying anxiety which could have contributed as well. Depression, major, recurrent , in complete remission 01/22/2020 12/03/2022 12/03/2022 documented as of this encounter (statuses as of 12/03/2022) [facility] History of Past illness Narrative* Problem Noted Date Diagnosed Date Resolved Date Nausea vomiting and diarrhea 09/12/2022 09/12/2022 Bilious vomiting with nausea 09/12/2022 09/12/2022 Diarrhea 09/11/2022 09/11/2022 09/12/2022 Overview: Comment on above: DIARRHEA Lumbar pain 05/14/2022 09/12/2022 Overview: Diagnosed with DDD in [place] Nausea and vomiting 01/21/2022 09/11/2022 09/13/19 Overview: Comment on above: NAUSEA Comment on above: NAUSEA documented as of this encounter (statuses as of 10/02/2022) [facility]07-04-2023 Miscellaneous Notes* Telephone Encounter - Jnea Pichardo RN - 09/07/2022 3:26 PM EDT Reason for Call: Vomiting and diarrhea x2 weeks. Patient states she has vomited 10x in the past 24 hours, and has had diarrhea 8x in the past 24 hours. Outcome: Go to ED now(or PCP Triage) . Offered to conference patient to Virtualist doctor (Dr. Ackerman), but patient declines. Patient asked NOC to call an ambulance for her. Patient states she does notdrive or have transportation to the ER. Call placed to [facility] [employer], then routed to [facility]. Caller conferenced in patent prosecution paralegal, and she will be waiting in her apartment. Address is [address] [place] [address]. [id number] [place] [address] Reason for Disposition [1] SEVERE vomiting (e.g., 6 or more times/day) AND [2] present > 8 hours (Exception: patient sounds well, is drinking liquids, does not sound dehydrated, and vomiting has lasted less than 24 hours) Protocols used: [id number] documented in this encounterOhio [facility]06-[facility] Miscellaneous Notes* Telephone Encounter - Azra Tran - 08/31/2022 2:06 PM EDT Spoke to the patient and she is aware and expressed understanding * Telephone Encounter - Paul Chavez MD - 08/31/2022 1:58 PM EDT Patient's request for medication is as follows: Requested Prescriptions Signed Prescriptions Disp Refills lansoprazole (PREVACID) 15 mg capsule 14 capsule 0 Sig: Take 1 capsule by mouth once daily for 14 days. Authorizing Provider: PAUL CHAVEZ Prescription(s) as above. Please process accordingly. Paul Chavez MD * Telephone Encounter - Gabrielle Barker - 08/31/2022 1:47 PM EDT Pharmacist with [facility] called to report prescription for omeprazole (PRILOSEC) 2 mg/ml liqd is unable to be run through insurance due to bad NDC number. Pharmacist stated prescription for liquid medication is likely not covered by insurance, and requested new prescription for lansoprazole capsules, which can be opened and mixed with food. Please advise. Gabrielle Barker documented in this encounterOhio State [facility] Hospital06-[facility]23 History of Present illness Narrative* Paul hCavez MD - 08/31/2022 12:56 PM EDT SUBJECTIVE Luli Johnson is a 31 year old female Patient presents with: Abdominal Pain Luli Johnson is here for intermittent abdominal, epigastric area, 1/10 today, pain, diarrhea, nauseaand vomiting after eating, belching, acid reflux, blood when brushing her teeth for 5 days, sometime seven when not brushings the teeth, metallic taste. She was seen in ED on 08/29 at [facility] and everything was fine. She declined CT scans as she had too many. The tremors, mostly cheeks are still present being off Abilify , she had tremors while on Abilify. Protonix made her vomit in ED. She has hard time taking pills. Had seen GI in [place]. CURRENT MEDICATIONS: Current Outpatient Medications Medication Sig Cutowlcu-Wz-Jfo-Fe-FA tab Take 1 tablet by mouth once daily. cholecalciferol (VITAMIN D3) 10 mcg/drop (400 unit/drop) oral drops Take 1 tablet by mouth once daily. cyanocobalamin (VITAMIN B-12) 500 mcg tablet Take 500 mcg by mouth. levonorgestrel (PLAN B ONE-STEP) 1.5 mg tab Take 1 tablet by mouth one time only for 1 dose. magnesium oxide (MAG-OX) 400 mg (241.3 mg magnesium) tablet Take 1 tablet by mouth once daily. No current facility-administered medications for this visit. Past medical history was reviewed and updated. Past surgical history was reviewed and updated. Family History: was reviewed and updated. Past social history was reviewed and updated. Patient's Family History and Social History have been reviewed with the patient, and updated as appropriate. Please see relevant section in the [facility] EHR for details. Health Maintenance was reviewed with the patient and updated as appropriate. Please see relevant section in the [facility] EHR for details. REVIEW OF SYSTEMS: GENERAL: No weight loss, malaise or fevers HEENT: Negative for frequent or significant headaches, No changes in hearing or vision, no nose bleeds or other nasal problems RESPIRATORY: Negative for cough, hemoptysis, wheezing, COPD, dyspnea or shortness of breath CARDIOVASCULAR: Negative for chest pain, leg swelling, hypertension, CHF or palpitations GI: See HPI : No history of dysuria, frequency or incontinence PHYSICAL EXAMINATION: BP 110/71 (BP Site: Left Arm, BP Position: Sitting, BP Cuff Size: Regular Adult) Pulse 77 Temp 36.4 C (97.5 F) (Temporal) Wt 51.3 kg (113 lb) LMP 08/26/2022 (Exact Date) SpO2 99% BMI 22.82 kg/m General Appearance: well appearing, in no acute distress, alert, no palor, no jaundice, no lymphedenopathy Lungs: Lungs clear to auscultation. No wheezing, rhonchi, rales. Heart: RRR without murmur, gallop, or rubs. No ectopy Abdomen: Positive findings: tenderness moderate epigastric Extremities: Normal exam of the extremities. No clubbing, cyanosis, or edema. Peripheral Pulses: Normal ASSESSMENT/PLAN: 1. Epigastric abdominal pain - ICD9: 789.06, ICD10: R10.13 Differential Diagnosis includes GERD, PUD, Gastritis, and IBS - Discussed lifestyle modifications including losing weight, limiting caffeine, no meals three hours before sleep, and head of bed elevation - CONSULT TO GASTROENTEROLOGY - OMEPRAZOLE 2 MG/ML ORAL LIQUID ([facility]) Patient explained the risks and benefits of the new drug. Patient demonstrates understanding and verbally consents to it. I spent 25 minutes face to face with the patient , from which 50 % counseling. Paul Chavez MD documented in this encounterOhio State [facility] Hospital06-21-2023 Miscellaneous Notes* Telephone Encounter - Zahira Cerda RN - 08/25/2022 4:27 PM EDT Patient states symptoms x 4 days - loose yellow stools - 10 or more stools a day , abdominal cramping - unable to keep fluids down - had about a sip on liquid in 24 hr - vomiting also- 8 x day. - dark urine ER advised - advised to have someone drive her if she is weak and Dizzy Reason for Disposition [1] Drinking very little AND [2] dehydration suspected (e.g., no urine > 12 hours, very dry mouth, very lightheaded) Answer Assessment - Initial Assessment Questions 1. DIARRHEA SEVERITY: severe 10 + yellow, loose 2. ONSET 4 days ago 3. BM CONSISTENCY: Liquid yellow 4. VOMITIN x in last 24 hr 5. ABDOMINAL PAIN: Little bit - crampy 6. ABDOMINAL PAIN SEVERITY: 4 now 7. ORAL INTAKE Not able to keep fluids down 8. HYDRATION: FORRESTER , dark urine 9. EXPOSURE: No 10. ANTIBIOTIC USE: unknown 11. OTHER SYMPTOMS: Do you have any other symptoms? (e.g., fever, blood in stool) no 12. : Is there any chance you are ? When was your last menstrual period? unknown Protocols used: [id number] documented in this encounterOhio State East Hospital06-19-2023 Miscellaneous Notes* Telephone Encounter - Marie Parnell RN - 08/23/2022 8:53 AM EDT Pt called office c/o pelvic cramping during and after IC that lasts for about 20 minutes. Pt statesshe does not have any irregular bleeding, declines concerns for vaginal infections/STD's. Pt statesshe's had 4 occurences so far of the cramping. Advised pt if cramping persists, worsens, or continues into next cycle, to call office for appt for evaluation. Pt verbalized understanding. Marie Parnell RN documented in this encounterOhio State East Hospital06-15-2023 History of Present illness Narrative* Cabrera Negron APRN.CNP - 08/19/2022 5:23 PM EDT Pt presents with c/o lower abdominal pain along nausea and vomiting x 4 days. Total 7 episodes of vomiting today. No treatment tried. Denies dizziness, lightheadedness, fainting or headache Pt is ambulatory and steady. Explained need to go to the Emergency room for higher level of care. Pt states understanding and agreeable. Left in stable condition Cabrera Negron APRN.GARAGE LABORER documented in this encounterOhio State East Hospital06-14-2023 Miscellaneous Notes* Telephone Encounter - Azra Tran - 08/18/2022 2:39 PM EDT Spoke to the patient and she is aware of the message below and expressed understanding * Telephone Encounter - Finn Elise PA-C - 08/18/2022 2:24 PM EDT Other results need to be completed to evaluate the full picture accurately. Finn Elise PA-C * Telephone Encounter - Melissa Hall - 08/18/2022 2:13 PM EDT Patient calling with concerns regarding her urine results, and is requesting results be reviewed. Patient aware other results still in process. Please advise. documented in this encounterOhio State East Hospital06-06-2023 Miscellaneous Notes* Telephone Encounter - Sravani Dickson RN - 08/10/2022 2:51 PM EDT Outgoing call placed to pt, identified by name and . Patient educated on provider's recommendations and verbalized understanding. Patient states she will schedule an appointment, transferred to [facility] to schedule. Sravani Dickson RN * Telephone Encounter - Sravani Dickson RN - 08/10/2022 2:47 PM EDT Images from the original note were not included. MD Devi Ralph RN 22 minutes ago (2:24 PM) ME If patient is sever she needs to go to ED for evaluation to role out other acute pathology. If pain is mild, she can take NSAIDs as instructed on the bottle, and can call for office appointment if she has any concern. Thank you Matthieu García MD * Telephone Encounter - Devi Louise RN - 08/10/2022 12:49 PM EDT Patient calling back and states the pain has gotten worse, she would like to be seen in office and can not afford to go the doctor. Pt describing pain has changed from a pinching to more of a heaviness and pressure. Pt states she has ovarian cysts but they have never yet caused her pain like this. Pt states she thinks that she is ovulating but doesn't think that should be causing pain. Declining severe pain or to go to ED, requesting appointment and US for evaluation. Devi Louise RN . * Telephone Encounter - Sravani Dickson RN - 08/10/2022 12:16 PM EDT Incoming call from patient, identified by name and . Patient calling with concerns for intermittent abdominal cramping that is not associated with period. Patient reports concerns for PCOS or endometriosis. Reports irregular periods. Last BEHAVIORAL HEALTH THERAPIST annual 05/06/2022 Patient reports currently in ovulation period. Patient reports actively trying to conceive. Patientrates abdominal cramping 4-07/14. Advised patient abdominal cramping can occur with ovulation. Patient verbalized understanding. Advised to call office back if symptoms worsen or persist out of ovulation period. Patient verbalized understanding. LMP: 07/31/[address] Braxton García for review and recommendations. Sravani Dickson RN documented in this encounterOhio State [facility] Hospital06-05-2023 Miscellaneous Notes* Telephone Encounter - Sravani Dickson RN - 08/09/2022 10:41 AM EDT Outgoing call placed to pt, identified by name and . Patient educated on provider's recommendations and verbalized understanding. Sravani Dickson RN * Telephone Encounter - Sravani Dickson RN - 08/09/2022 10:39 AM EDT Images from the original note were not included. Matthieu García MD [facility] 1 minute ago (10:37 AM) ME Hi, I don't have data on that, patient can discuss that with SIENNA on her next appointment. Thank you Matthieu García MD * Telephone Encounter - Sravani Dickson RN - 08/09/2022 9:35 AM EDT Incoming call from patient, identified by name and . Patient calling in regards to using Pre-seed from [employer] to help conceive. Patient reports it is afertility lubricant. Patient states she heard success stories using this and would like to know if it is okay to use. Patient reports has been trying to conceive for 10 months.Has appointment scheduled with SIENNA 09/06/2022. Patient reports semen analysis completed on significant other and was found to be fine. Advised patient can try during this ovulation cycle and use as directed on manufacturers packaging.Patient verbalized understanding. Message forwarded to Dr. Braxton García for review and recommendations. Sravani Dickson, RN documented in this encounterOhio State East Hospital06-02-2023 Miscellaneous Notes* Telephone Encounter - Brigid Hansen MD - 08/06/2022 8:34 PM EDT Pt called with questions about her blood type. Questions answered. Pt aware the test has not come back yet. Reasons for checking a type and screen discussed. Brigid Hansen MD documented in this encounterOhio State East Hospital05-30-2023 Miscellaneous Notes* Telephone Encounter - Madi Stuart MD - 08/03/2022 12:02 PM EDT Patient's request for medication is as follows: Requested Prescriptions Signed Prescriptions Disp Refills fluconazole (DIFLUCAN) 150 mg tablet 1 tablet 0 Sig: Take 1 tablet by mouth one time only for 1 dose. Authorizing Provider: MADI STUART Prescription(s) as above. Please process accordingly. Madi Stuart MD * Telephone Encounter - Azra Tran - 08/03/2022 11:58 AM EDT Spoke to the patient and she is aware of the message below. Patient stated she is still having the vaginal discharge. She is aware prescription will be sent to the pharmacy. Pharmacy has been confirmed. Please file * Telephone Encounter - Madi Stuart MD - 08/03/2022 11:[address] inform pt that the vaginitis panel was cancelled. Pl check if feeling better, if still has vaginal discharge, will order empirical diflucan. Pl inform that urine culture is negative for infection. * Telephone Encounter - Katey Villela MA - 08/03/2022 11:23 AM EDT Label placed on specimen was label from order that was cancelled. Spoke with Client services, specimen was discard since it showed cancelled order. * Telephone Encounter - Madi Stuart MD - 08/03/2022 11:[address] check why vaginitis panel not resulted documented in this encounterOhio State East Hospital05-26-2023 History of Present illness Narrative* Madi Stuart MD - 07/30/2022 12:24 PM EDT Chief complaint: ER F/U HPI: Pt seen in ED on 07/28/22 for abdominal pain and wants to review results. Pain is mod in rt lower quadrant and has been throwing up multiple times daily. Pain has worsened over 2 weeks. Seen throwing up in the room. Food increases pain and has bilious vomiting. Is constipated, has tiny BM,has discomfort when urinates for few days . Wants urinalysis. Has cottage cheese discharge from vagina for 2 days, wants to be checked for esthela REVIEW OF SYSTEMS: CONSTITUTIONAL: No fevers, chills, nightsweats, unintended weight loss CARDIOVASCULAR: No chest pain, palpitations, orthopnea, PND, ankle edema. PULM: No dyspnea, unexplained cough. : No new urinary complaints, including dysuria, gross hematuria or pyuria. NEURO: No new balance problems, peripheral weakness/paresthesias or numbness of concern. MUSC-SKEL: No new joint pain, swelling, or erythema. PSY: No concerns regarding depression, anxiety or panic. INTEGUMENTARY: No new skin changes (rash, new or changing mole, new growth) PHYSICAL EXAMINATION: BP 97/67 (BP Site: Right Arm) Pulse 80 Temp 36.8 C (98.2 F) (Temporal) Wt 52.6 kg (116 lb) LMP 07/05/2022 (Exact Date) BMI 23.43 kg/m General appearance - alert, in no acute distress Eyes - Anicteric sclera. Pupils are equally round and reactive to light. Extraocular movements are intact. Neck - Supple, no adenopathy Lungs - clear to auscultation, no wheezing or rhonchi Heart - RRR without murmur, gallop, or rubs. No ectopy Abdomen - rt lower quadrant tenderness , no guarding/no rigidity, no CVA tenderness - cervix swabbed,not erythematous. MA in room during exam Extremities - no edema Neuro - Gait normal. PAST MEDICAL HISTORY Diagnosis Date Anxiety and depression Bacterial vaginosis Herpes simplex vulvovaginitis 07/07/2022 Hypotension IBS (irritable bowel syndrome) Ovarian cyst UTI (urinary tract infection) Vaginal atrophy Social History Tobacco Use Smoking status: Never Passive exposure: Never Smokeless tobacco: Never Substance Use Topics Alcohol use: Not Currently Comment: occ Drug use: Yes Types: Marijuana FAMILY HISTORY Problem Relation Age of Onset Hypertension Mother Autism Sister Parkinson s Disease Maternal Grandmother Hypertension Maternal Grandfather ASSESSMENT/PLAN: 1. Left lower quadrant abdominal pain - ICD9: 789.04, ICD10: R10.32 (primary diagnosis) Tender in LLQ, reviewed CT abdomen results from 07/28/22, has fluid in appendix, r/o appendicitis Will send to ED as vomiting in the room. Signed out to [facility] callum bautista called . Urine trace blood which is a chronic issue, send for urine culture . 2. Acute vaginitis - ICD9: 616.10, ICD10: N76.0 - ESTHELA / TRICHOMONAS AMPLIFICATION - BACTERIAL VAGINOSIS AMPLIFICATION 3. UTI symptoms - ICD9: 788.99, ICD10: R39.9 - UA DIP, URINE (POC) - urine has trace Hb Madi Stuart MD documented in this encounterOhio [facility]-16-[facility]23 History of Present illness Narrative* Srini Thomas PA-C - 07/20/2022 6:13 PM EDT 31 year old female [facility] unac[facility]ied with concerns of syncopal episode sustained 1 hour ago. Woke up vomiting. States has been n/v x 1 week, Zofran Rx at home not helping. Also reports shakiness of hands and legs. States lives alone at home, walked to [facility] today. Was in ED yesterday for urinary concerns and seeking emergency contraception for unprotected sex. BP 121/76 (BP Site: Right Arm, BP Position: Sitting, BP Cuff Size: Regular Adult) Pulse 108 Temp 37 C (98.6 F) (Temporal) Resp 18 Wt 52.5 kg (115 lb 12.8 oz) LMP 07/06/2022 (Exact Date) SpO2 99% BMI 23.39 kg/m Discussed with patient that it is my medical opinion that this condition requires further evaluation and management at a higher level of care than we are able to offer in [facility] setting. Referred patient to ED. Patient vocalized understanding is agreeable to plan. EMS called per patient request as patient does not have transport personally or via family/friend to aid in transportation. EMS arrived 6:18 PM. Patient discharged to EMS in stable condition; Srini Thomas PA-C [facility] documented in this encounterOhio State East Hospital05-16-2023 Nurse Note* Amber Jacob MA - 07/20/2022 6:12 PM EDT [facility], Ambulatory Surgery Centers and Remote Sites Emergency Response Form. NOT TO BE USED AT MAIN [place] Complete this report when the Emergency Medical Response is activated (911 calls/EmergencyTransportto the ED) or when a Code Sheet is utilized in the care of a patient (i.e., ASC) Date of the Event: 07/20/2022 (Must provide Value) Time of the Event:1410 (Must provide Value) Was emergency response activated? (Local EMS/Emergency Department) YES (Must provide Value) Location of the Incident: [facility] (Must provide Value) Reason/Chief Complaint for Emergency Call (Check all that apply): Mental Status Change/Dizziness/Syncope (Must provide Value) CPR Initiated-Chest Compressions and/or Rescue Breathing Provided: NO (Must provide value) Facility AED Used-Automatic External Defibrillator: NO (Must provide value) EMS AED Used-Automatic External Defibrillator: NO (Must provide value) Prior to EMS arrival, was any treatment administered? 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 Stopped abilify few days ago and still has symptoms 2-3 times a day. Was taking abilify for mental health issues, lisa anxiety/depression. Anxiety/depression often controlled, denies SI/HI/hallucinations/delusions/illusions. Sees psych and psych aware of pt stopping abilify. REVIEW OF SYSTEMS: CONSTITUTIONAL: No fevers, chills, nightsweats, unintended weight loss CARDIOVASCULAR: No chest pain, palpitations, orthopnea, PND, ankle edema. PULM: No dyspnea, unexplained cough. GI: No dysphagia/odynophagia, problematic reflux, constipation, diarrhea, changes in stool habits, hematochezia, melena. : No new urinary complaints, including dysuria, gross hematuria or pyuria. NEURO: No new balance problems, peripheral weakness/paresthesias or numbness of concern. MUSC-SKEL: No new joint pain, swelling, or erythema. PSY: No concerns regarding depression, anxiety or panic. INTEGUMENTARY: No new skin changes (rash, new or changing mole, new growth) PHYSICAL EXAMINATION: BP 113/79 (BP Site: Left Arm, BP Position: Sitting) Pulse 73 Temp 36.6 C (97.9 F) (Temporal) Wt 51.7 kg (114 lb) LMP 07/06/2022 (Exact Date) BMI 23.03 kg/m General appearance - well appearing, alert, in no acute distress Eyes - Anicteric sclera. Nose/Sinuses - negative Oropharynx - lips, mucosa, and tongue normal, teeth and gums normal, oropharynx normal Neck - Supple, no adenopathy Lungs - clear to auscultation, no wheezing or rhonchi Heart - RRR without murmur, gallop, or rubs. No ectopy Abdomen - Normal abdominal exam, Abdomen soft, non-tender. Bowel sounds normal. No masses, organomegaly Extremities - no edema Neuro - Gait normal. Fozia oral twitching seen on rt side of face. Left hand tremors seen on outstretched hand . Can walk on heels. Can walk on toes. PAST MEDICAL HISTORY Diagnosis Date Anxiety and depression Bacterial vaginosis Herpes simplex vulvovaginitis 07/07/2022 Hypotension IBS (irritable bowel syndrome) Ovarian cyst UTI (urinary tract infection) Vaginal atrophy Social History Tobacco Use Smoking status: Never Passive exposure: Never Smokeless tobacco: Never Substance Use Topics Alcohol use: Not Currently Comment: occ Drug use: Yes Types: Marijuana FAMILY HISTORY Problem Relation Age of Onset Hypertension Mother Autism Sister Parkinson s Disease Maternal Grandmother Hypertension Maternal Grandfather ASSESSMENT/PLAN: 1. 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 Add magnesium supplements for now 2. Encounter for immunization - ICD9: V03.89, ICD10: Z23 - PFIZER-BIONTECH COVID-19 BIVALENT VACCINE, AGE 12+ YR Madi Stuart MD documented in this encounterOhio State East Hospital05-11-2023 Miscellaneous Notes* Telephone Encounter - Madi Stuart MD - 07/15/2022 2:06 PM EDT Ok to be seen * Telephone Encounter - Cassandra Combs - 07/15/2022 1:48 PM EDT Patient called today and scheduled a follow up with PCP today at 220, to discuss further. I was notaware encounter had already been opened regarding patient. Should she be seen today or should I call her back with different instructions? * Telephone Encounter - Madi Stuart MD - 07/15/2022 12:30 PM EDT agree * Telephone Encounter - Zahira Cerda RN - 07/15/2022 11:13 AM EDT Spoke to patient- Calling with concerns of cheek tremors, feet jumping and eyebrows/ eyelid Twitching. - happens about 2 x day. - symptoms are not new - seen in ED and mentioned long standing twitching of Hands and face - also seen in this office 07/07 - NEURO referral advised. - admits to stopping her Abilify - d/t having tardive dyskinesia - states her Psych provider is not fully aware she stopped this med - also worried about still having a UTI d/t not being able to tolerate taking Any oral medication d/t nausea/ vomiting. - abx prescribed recently- switched to liquid and still not able to tolerate. - advised to make sure she is drinking at least 8 glasses of water a day and Let office know of any worsening symptoms - the body may clear this on its Own. - advised to contact PSYCH provider to inform of stopping Abilify and current Concerns about chronic symptoms. Reason for Disposition Muscle jerks, tics, or shudders are a chronic symptom (recurrent or ongoing AND present > 4 weeks) Answer Assessment - Initial Assessment Questions 1. APPEARANCE of MOVEMENT Eye lid, eyebrow and cheek tremors, twitching 2. ONSET: months 3. DURATION: minutes 4. FREQUENCY: 2 x day 5. WHEN:) random 6. CAUSE: Silent seizures? 7. OTHER SYMPTOMS: Dizzy spells 8. : no Protocols used: Muscle Jerks - Tics - [id number] documented in this encounterOhio [facility] Hospital05-04-2023 Miscellaneous Notes* Telephone Encounter - Tiffani Barros - 07/08/2022 9:33 AM EDT Message was given to the patient. Mailed potassium diet information to patient. Tiffani Barros * Telephone Encounter - Azra Tran - 07/08/2022 9:23 AM EDT Left a message for the patient to call the office back * Telephone Encounter - Finn Elise PA-C - 07/08/2022 8:59 AM EDT No other abnormalities on labs. Dizziness could be from potassium as it did drop 0.3 points between the office and the ED- lack of potassium in the diet could be the culprit Finn Elise PA-C * Telephone Encounter - Tiffani Barros - 07/08/2022 8:48 AM EDT Patient phoned the office requesting review and recommendations for yesterday's lab results. Read patient result note for potassium. Patient is concerned about her B12 level and wants to know if she needs any supplements/injections? Patient wants to know if her labs indicate anything related to dizziness discussed during recent visit. Please advise. documented in this encounterOhio [facility] Hospital05-03-2023 Telephone encounter Note * Telephone Encounter - Vanesa Franklin RN - 07/07/2022 10:11 PM EDT Calling in Requesting a message be sent to Dr. Garcia in notifying him that she is stopping Abilify due to tardive dyskinsia. Was advised to stopped by PCP and pt is in agreement due to not having any episodes and wants to continue therapy. [id number] Miscellaneous Notes* Telephone Encounter - Vanesa Franklin RN - 07/07/2022 10:11 PM EDT Calling in Requesting a message be sent to Dr. Garcia in notifying him that she is stopping Abilify due to tardive dyskinsia. Was advised to stopped by PCP and pt is in agreement due to not having any episodes and wants to continue therapy. documented in this [id number] History of Present illness Narrative* Ana Brandt PA-C - 07/07/2022 8:54 AM EDT SUBJECTIVE Luli Johnson is a 31 year old female here for Patient presents with: Dizziness Patient presents to the office for an urgent concern Went to ED 5 days ago for dizziness and weakness EKG with NSR without ischemia Urine suspicious for UTI, culture in process Labs otherwise unremarkable Today she reports continued symptoms Has detailed labs in system to be completed She states scopolamine patch is not helping her dizziness Was given treatment for UTI and herpes outbreak- states she cannot take as it makes her vomit States continues burning with urination and darker in color Dizziness is constant per patient Feels she is spinning, but no apparent worsening with positional Hx of pituitary benign cyst 10 years ago Would get headaches and dizziness with this Had MRI in the past, from chart review I could not find this diagnosis HISTORIES No family history on file. PAST MEDICAL HISTORY Diagnosis Date Bacterial vaginosis Hypotension IBS (irritable bowel syndrome) Ovarian cyst UTI (urinary tract infection) Vaginal atrophy PAST SURGICAL HISTORY Procedure Laterality Date CHOLECYSTECTOMY HX KIDNEY STONE SURGERY HX Right 10/31/2019 Social History Tobacco Use Smoking status: Never Passive exposure: Never Smokeless tobacco: Never Substance Use Topics Alcohol use: Yes Comment: occ Drug use: Never REVIEW OF SYSTEMS: Past medical history was reviewed and updated. Past surgical history was reviewed and updated. Family History: was reviewed and updated. Past social history was reviewed and updated. GENERAL: No weight loss, malaise or fevers RESPIRATORY: Negative for cough, hemoptysis, wheezing, COPD, dyspnea or shortness of breath CARDIOVASCULAR: Negative for chest pain, leg swelling, hypertension, CHF or palpitations GI: No nausea, vomiting, or diarrhea : No history of dysuria, frequency or incontinence NEURO: negative for syncope PHYSICAL EXAMINATION: BP 121/86 (BP Site: Left Arm, BP Position: Sitting) Pulse 92 Temp 37.2 C (98.9 F) (Temporal) Wt 54 kg (119 lb) LMP 06/05/2022 (Exact Date) BMI 24.04 kg/m General Appearance: well appearing, in no acute distress, alert, no palor, no jaundice Lungs: lungs clear to auscultation. No wheezing, rhonchi, rales Heart: RRR without murmur, gallop, or rubs. No ectopy Abdomen: Abdomen soft, non-tender. Extremities: No clubbing, cyanosis, or edema. Peripheral Pulses: Normal Neurologic: Gait normal. ASSESSMENT/PLAN: 1. Herpes simplex vulvovaginitis - ICD9: 054.11, ICD10: A60.04 (primary diagnosis) - will try cream, but pt should take oral if no relief - Call office if no improvement in symptoms. - ACYCLOVIR 5 % TOPICAL CREAM 2. UTI symptoms - ICD9: 788.99, ICD10: R39.9 - advised patient that she needs to take and finish medication - Call office if no improvement in symptoms. - CEPHALEXIN 250 MG/5 ML ORAL SUSPENSION 3. Dizziness - ICD9: 780.4, ICD10: R42 - work up in ED unremarkable - pt to get labs in system completed today - CONSULT TO [facility]STIBULAR REHAB PT - CONSULT TO NEUROLOGY 4. 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 - will refer - CONSULT TO NEUROLOGY Ana Brandt PA-C documented in this encounterOhio State [facility] Hospital04-29-2023 Nurse Note* Ava Mehta LPN - 07/03/2022 3:26 PM EDT [facility], Ambulatory Surgery Centers and Remote Sites Emergency Response Form. NOT TO BE USED AT MAIN CAMPUS Complete this report when the Emergency Medical Response is activated (911 calls/EmergencyTransportto the ED) or when a Code Sheet is utilized in the care of a patient (i.e., [facility]) Date of the Event: 07/03/2022 (Must provide Value) Time of the Event: 15:15 (Must provide Value) Was emergency response activated? (Local EMS/Emergency Department) YES (Must provide Value) Location of the Incident: [facility] (Must provide Value) Reason/Chief Complaint for Emergency Call (Check all that apply): Other N/V. Dizziness, blurred vision, Syncopial Episode today at home (Must provide Value) CPR Initiated-Chest Compressions and/or Rescue Breathing Provided: NO (Must provide value) Facility AED Used-Automatic External Defibrillator: NO (Must provide value) EMS AED Used-Automatic External Defibrillator: NO (Must provide value) Prior to EMS arrival, was any treatment administered? NO Describe treatment Comfort Care/Vital signs Patient Disposition: Transferred to Hospital ED (Must provide value) [employer] Work information: Ava Mehta LPN Name of Provider- Kim Jeong PA-C (Must provide value) documented in this encounterOhio State [facility] Hospital04-29-2023 History of Present illness Narrative* Kim Radford PA-C - 07/03/2022 3:22 PM EDT BP 134/82 Pulse (!) 138 Temp 37.3 C (99.1 F) (Temporal) Resp 20 LMP 05/26/2022 (Exact Date) SpO2 100% Pt triaged. Blurred vision, dizziness, n/v, and abdominal discomfort for 2 days, and syncopal episode today. Walked here today. Unable to work up sxs or treat sxs in express care setting. EMS called to take pt to the ER now. documented in this encounterOhio State East Hospital04-28-2023 Miscellaneous Notes* Telephone Encounter - Marie Parnell RN - 07/02/2022 3:52 PM EDT Pt notified order placed, is not sure if she'll be able to get to the lab today or tomorrow. Encouraged pt to get done as soon as possible. Calling precautions reviewed. Marie Parnell RN * Telephone Encounter - Haseeb Drake MD - 07/02/2022 3:48 PM EDT Order(s) signed. Haseeb Drake Jr, MD * Telephone Encounter - Marie Parnell RN - 07/02/2022 1:43 PM EDT Pt is 5w2d by LMP of 05/26, had + HPT 1.5 weeks ago, was seen Tuesday and didn't mention , states she forgot. Pt states she started having heavy VB yesterday with quarter size clots and cramping. Pt states bleeding is light today. Blood type unknown, no recent IC, just broke up with partner earlier this week. Order pending for quant and type & screen if appropriate. Marie Parnell RN documented in this encounterOhio State [facility] Hospital04-26-2023 History of Present illness Narrative* Shara Nolen PharmD - 06/30/2022 1:33 PM EDT Images from the original note were not included. [facility] Supplied Clinically Administered Medication Record Of Dispense Patient Name: Luli Johnson Date of : 1990 Medication: Aristada 1064mg Summary note:: Last delivered 05/12/22. Patient has since changed to oral Abilify. Please contact thepharmacy if a refill is needed in the future. documented in this [id number] Miscellaneous Notes* Addendum Note - Onelia Phan Ma - 06/28/2022 4:52 PM EDTAddended by: ONELIA PHAN MA on: 06/28/2022 04:52 PM Modules accepted: Orders documented in this encounterOhio State East Hospital04-24-2023 History of Present illness Narrative* Haseeb Drake MD - 06/28/2022 2:31 PM EDT Pt here with concerns regarding possible uti. Was taking cephalexin for about a week, ending a few days ago, she has taking diflucan, last about 4 days ago. Claims she is going more often and burningwith urination. Also complaining of low back pain PE Abd snt V/v normal discharge Bimanual nl uterus and adnexa without tenderness ASSESSMENT/PLAN: 1. Dysuria - ICD9: 788.1, ICD10: R30.0 recurrent - UA positive for trace leuk, tr prot - Patient education for prevention given - URINE CULTURE - ESTHELA / TRICHOMONAS AMPLIFICATION - BACTERIAL VAGINOSIS AMPLIFICATION Haseeb Drake Jr, MD documented in this encounterOhio State [facility] Hospital04-14-2023 Miscellaneous Notes* Telephone Encounter - Danica Terry MA - 06/18/2022 5:30 PM EDT Spoke w/ patient and verified by name and . Patient given the message below by provider Kendall Bourgeois APRN.GARAGE LABORER. Patient verbalized understanding and declines further questions at this time. * Telephone Encounter - Armand Salcido LPN - 06/18/2022 9:08 AM EDT Left message on TAD for patient to call back to retrieve message from provider. Hours of operation provided in message. * Telephone Encounter - Kendall Bourgeois APRN.CNP - 06/18/2022 8:58 AM EDT Please inform patient that she should still take the medication to treat herpes as prescribed and should follow up with FRONT END MANAGER for further recommendations on medication management if or PCP with any further questions. * Telephone Encounter - Armand Salcido LPN - 06/18/2022 7:44 AM EDT Patient calling I stating that she was given Flagyl yesterday. She stated that she had unprotected sex last night and may now be . Would like to know if it is safe to take the meds she was prescribed. She also saw OBGYN yesterday so please their notes. Please advise documented in this encounterOhio State [facility] Hospital04-13-2023 History of Present illness Narrative* Matthieu García MD - 06/17/2022 3:24 PM EDT Office visit Luli Johnson is a 31 year old old female who is concerned about genital herpes, and is trying to get. 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 Social History Tobacco Use Smoking status: Never Passive exposure: Never Smokeless tobacco: Never Substance Use Topics Alcohol use: Yes Comment: occ Drug use: Never Current Outpatient Medications Medication Sig metroNIDAZOLE (METROGEL) 0.75 % (37.5mg/5 gram) Vaginal Gel Use 1 Applicatorful vaginally daily at bedtime for 5 days. valACYclovir (VALTREX) 1 gram Take 1 tablet by mouth twice daily for 7 days. Udfqavim-Hn-Eri-Fe-FA tab Take 1 tablet by mouth once daily. ARIPiprazole lauroxil ER (ARISTADA) 1,064 mg/3.9 mL injection Inject 10 mg intramuscularly. cholecalciferol (VITAMIN D3) 10 mcg/drop (400 unit/drop) oral drops Take 1 tablet by mouth once daily. cyanocobalamin (VITAMIN B-12) 500 mcg tablet Take 500 mcg by mouth. No current facility-administered medications for this visit. Allergies As of Date: 06/17/2022 Allergen Noted Reaction CIPROFLOXACIN 03/02/2011 Anaphylaxis, Hives, Rash, and Shortness of Breath COLD CREAM 12/15/2020 Anaphylaxis DIPHENHYDRAMINE 04/02/2011 Hives, Rash, Shortness of Breath, and Swelling HYDROCORTISONE 03/22/2011 Hives, Rash, and Swelling PEANUT 05/15/2016 Anaphylaxis SULFAMETHOXAZOLE-TRIMETHOPRIM 05/04/2009 Hives, Rash, and Shortness of Breath SULFA (SULFONAMIDE ANTIBIOTICS) 05/04/2009 Hives and Rash LORATADINE 12/15/2020 Rash and Swelling SULFASALAZINE 08/13/2009 Unknown Fully Assessed 06/17/2022 REVIEW OF SYSTEMS Bladder: No dysuria, gross hematuria, urinary frequency, urinary urgency, or incontinence. Expanded ROS: N/A Allergies and current medication updated:Yes EXAM: BP 108/64 Wt 115 lb (52.2kg) LMP 06/05/2022 GENERAL: worried, female in no apparent distress HEENT: Normocephalic and atraumatic CHEST: Normal inspiratory effort NEURO: alert and oriented x3 PELVIC: declined Herpes Simplex Virus 2 (HSV-2) DNA Not Detected Detected Abnormal ASSESSMENT/PLAN: 1. Herpes simplex vulvovaginitis - ICD9: 054.11, ICD10: A60.04 (primary diagnosis) Already received prescription, she will pick it up tomorrow. Advised to start once she has the meds. 2. Female fertility problems - ICD9: 628.9, ICD10: N97.9 Stated she has been having unprotected intercourse for 9 month about 5-6 times per month. Counseled about the frequency of intercourse, will refer to infertility clinic for further management. Start PNV - VITAMIN,CALCIUM,[id number] ACID TABLET - CONSULT TO INFERTILITY CLINIC Medical Decision Making: Problems: Moderate: 2+ stable chronic illnesses Data: Unique test result(s) reviewed: 1 Risk: Moderate: Drug management Medical Decision Making Level: 4 - Moderate SIGNATURE: Matthieu García MD DATE: June 17, 2022 * Rabia Celestin MA - 06/17/2022 2:44 PM EDT Hand [employer]working Sander offered: Patient accepts, visit chaperoned by rabia celestin. documented in this encounter[facility]13-[facility]23 Miscellaneous Notes* Telephone Encounter - Marlene Saeed LPN - 06/17/2022 12:16 PM EDT Spoke with patient she was able to verify name and . Relayed message to patient from provider and she has no further questions at this time. * Telephone Encounter - Srini Thomas PA-C - 06/17/2022 11:20 AM EDT Please call patient She can stop the oral Flagyl Alternative medication for BV treatment has been sent to pharmacy Please also inform patient that testing for labial lesion has come back positive for genital herpes Medication has been sent to pharmacy for treatment of this as well - Notify all current and future sex partners that you have had sexual contact with that you have genital herpes. Genital herpes can be spread even you don't have symptoms or genital lesions (blistersor open sores). - Use a condom every time you have sex - Avoid sex when you have genital sores or other symptoms (itching, burning, pain with urination) Follow up with FRONT END MANAGER as needed if symptoms persist or do not improve with treatment * Telephone Encounter - Danicaabrahan Terry MA - 06/17/2022 10:33 AM EDT Patient called to request different medication for Bacterial Vaginosis. Patient states that Flagyl 500 mg made her vomiting since patient took it this morning. Please advise. documented in this encounterOhio [facility]04-12-2023 Instructions* Patient Instructions* Sherrell Jimenes APRN.CNP - 06/16/2022 6:03 PM EDT BP 115/83 Pulse 80 Temp 36.9 C (98.5 F) (Temporal) Resp 20 Wt 52.2 kg (115 lb) LMP 06/06/2022 (Exact Date) SpO2 98% BMI 23.23 kg/m -I have reviewed and updated with the patient: allergies, VS, current medications, Past Medical History,Past Surgical History,Past Family Medical History, Past Social History. - Patient education provided today. - Discussed with patient medications that are indicated and how to use the medications and what thepotential side effects are. - Follow up with PCP in 2-3 days if symptoms progress - Warning signs of worsening condition explained to patient - Patient left in stable condition after questions answered and patient verbalizes understanding - Report to ED with any worsening symptoms or life-threatening concerns - [facility] educational [facility], and test results ASSESSMENT/PLAN: 1. Labial lesion - ICD9: 624.8, ICD10: N90.89 (primary diagnosis) - HSV1,2/VZV NAAT LESION 2. Contamination of urine culture - ICD9: 791.9, ICD10: R82.90 - URINE CULTURE 3. Itching in the vaginal area - ICD9: 698.1, ICD10: N89.8 - FLUCONAZOLE 150 MG TABLET Sherrell Jimenes APRN.CNP documented in this encounterOhio [facility] Hospital04-12-2023 History of Present illness Narrative* Sherrell Jimenes APRN.CNP - 06/16/2022 6:02 PM EDT Images from the original note were not included. This note was created using natueriter. Subjective Luli Johnson is a 31 year old female. The history is provided by the patient. Vaginal Problem This is a new problem. Episode onset: noticed tender lesion to left sided labia, no hx of herpes. Seen recently for STD checks, was tx for BV and UTI. Review of Systems Genitourinary: Positive for vaginal pain. Negative for urgency and vaginal discharge. Objective BP 115/83 Pulse 80 Temp 36.9 C (98.5 F) (Temporal) Resp 20 Wt 52.2 kg (115 lb) LMP 06/06/2022 (Exact Date) SpO2 98% BMI 23.23 kg/m Physical Exam Vitals and nursing note reviewed. Exam conducted with a hair boiler operator present (Ava Marie LPN). Constitutional: General: She is not in acute distress. Appearance: She is not diaphoretic. Pulmonary: Effort: Pulmonary effort is normal. No respiratory distress. Genitourinary: Pubic Area: Rash (small round erythematous papule to left sided labia majora, no d/c, no pustule, no vesicle) present. Skin: General: Skin is warm and dry. Neurological: Mental Status: She is alert and oriented to person, place, and time. Psychiatric: Judgment: Judgment normal. Assessment and Plan BP 115/83 Pulse 80 Temp 36.9 C (98.5 F) (Temporal) Resp 20 Wt 52.2 kg (115 lb) LMP 06/06/2022 (Exact Date) SpO2 98% BMI 23.23 kg/m -I have reviewed and updated with the patient: allergies, VS, current medications, Past Medical History,Past Surgical History,Past Family Medical History, Past Social History. - Patient education provided today. - Discussed with patient medications that are indicated and how to use the medications and what thepotential side effects are. - Follow up with PCP in 2-3 days if symptoms progress - Warning signs of worsening condition explained to patient - Patient left in stable condition after questions answered and patient verbalizes understanding - Report to ED with any worsening symptoms or life-threatening concerns - Patient also advised to visit [facility] for AVS, educational material, and test results ASSESSMENT/PLAN: 1. Labial lesion - ICD9: 624.8, ICD10: N90.89 (primary diagnosis) - HSV1,2/VZV NAAT LESION 2. Contamination of urine culture - ICD9: 791.9, ICD10: R82.90 - URINE CULTURE 3. Itching in the vaginal area - ICD9: 698.1, ICD10: N89.8 - FLUCONAZOLE 150 MG TABLET Sherrell Jimenes APRN.LAWANDA documented in this encounterOhio [facility] Hospital04-06-2023 Miscellaneous Notes* Telephone Encounter - Armand Salcido LPN - 06/10/2022 4:30 PM EDT Contacted patient, identified by Name and Birthday. Relayed message with verbal understanding. No further questions at this time. * Telephone Encounter - Armand Salcido LPN - 06/10/2022 4:03 PM EDT Left message on TAD for patient to call back to retrieve message from provider. Hours of operation provided in message. * Telephone Encounter - Marlene Saeed LPN - 06/10/2022 9:19 AM EDT Attempted to call patient and there was no answer on phone. Left VM on TAD to call office back to retrieve message from provider. Phone number and hours of operation provided in message * Telephone Encounter - Kendall Bourgeois APRN.CNP - 06/10/2022 7:12 AM EDT Please inform patient lab result came back positive for bacterial vaginosis, will need antibiotic flagyl twice a day for 7 days, avoid alcohol while using, verify pharmacy, thank you documented in this encounterOhio State [facility] Hospital04-05-2023 History of Present illness Narrative* Luz Arboleda PA-C - 06/09/2022 2:32 PM EDT This note was created using natueriter. Subjective Luli Johnson is a 31 year old female. Vaginal Problem [facility] CC: 31 year old female Patient presents with: Vaginal Problem: Two unprotected intercourse episodes in one month with two different individuals, concerns with UTI, STD Was tested for Trich a week ago. Still unprotected sex. Refusing to do Speculum exam. Advised in order to properly exam woul dneed speculum. Patient aware and refusing at this time. Blood Pressure 110/77 Pulse (Abnormal) 124 Temperature 37 C (98.6 F) (Temporal) Respiration 24 Weight 52.2 kg (115 lb) Last Menstrual Period 06/03/2022 (Approximate) Oxygen Saturation 97% Body Mass Index 23.23 kg/m Current Outpatient Medications on File Prior to Visit Medication Sig ARIPiprazole lauroxil ER (ARISTADA) 1,064 mg/3.9 mL injection Inject 10 mg intramuscularly. cholecalciferol (VITAMIN D3) 10 mcg/drop (400 unit/drop) oral drops Take 1 tablet by mouth once daily. cyanocobalamin (VITAMIN B-12) 500 mcg tablet Take 500 mcg by mouth. fluconazole (DIFLUCAN) 150 mg tablet Take 1 tablet by mouth once daily for 2 days. (Patient not taking: Reported on 06/09/2022) ondansetron orally disintegrating (ZOFRAN ODT) 4 mg disintegrating tablet Take 1 tablet by mouth every 8 hours as needed for nausea/vomiting. (Patient not taking: Reported on 06/09/2022) No current facility-administered medications on file prior to visit. Review of Systems Constitutional: Negative. Gastrointestinal: Negative. Genitourinary: Positive for dysuria, hematuria (on mences), vaginal discharge and vaginal pain. Objective Blood Pressure 110/77 Pulse (Abnormal) 124 Temperature 37 C (98.6 F) (Temporal) Respiration 24 Weight 52.2 kg (115 lb) Last Menstrual Period 06/03/2022 (Approximate) Oxygen Saturation 97% Body Mass Index 23.23 kg/m Physical Exam Vitals and nursing note reviewed. Constitutional: Appearance: Normal appearance. HENT: Head: Normocephalic and atraumatic. Abdominal: General: Abdomen is flat. Palpations: Abdomen is soft. Genitourinary: Comments: Mild irritation vulva 6 oclock. No lesions no STS noted. Skin: General: Skin is warm and dry. Neurological: Mental Status: She is alert. ASSESSMENT/PLAN: 1. Screening for STD (sexually transmitted disease) - ICD9: V74.5, ICD10: Z11.3 (primary diagnosis) - GC/CHLAMYDIA DNA DET - ESTHELA / TRICHOMONAS AMPLIFICATION - BACTERIAL VAGINOSIS AMPLIFICATION 2. Dysuria - ICD9: 788.1, ICD10: R30.0 acute - UA positive for sarita esterase and hematuria - Send urine for culture - Patient education for prevention given - URINE CULTURE 3. Urinary tract infection with hematuria, site unspecified - ICD9: 599.0, 599.70, ICD10: N39.0, R31.9 - Patient education for prevention given See AVS - NITROFURANTOIN MONOHYDRATE & MACROCRYSTAL 100 MG ORAL CAP - URINE CULTURE Luz Arboleda PA-C Discussed medication dosage, usage, goals of therapy, and side effects. documented in this encounterOhio [facility]04-05-2023 Instructions* Patient Instructions* Luz Arboleda PA-C - 06/09/2022 2:32 PM EDT Sexually Transmitted Diseases: An Overview Sexually transmitted infections, commonly called STIs, are diseases that are spread by having sex with someone who has an STI. These conditions are also known as sexually transmitted diseases (STDs).You can get an STI from sexual activity that involves the mouth, anus, vagina, or penis. STIs are serious illnesses that require treatment. Some STIs, like HIV, cannot be cured and are deadly. By learning more about STIs, you can learn ways to protect yourself from these diseases. STIs include: Genital herpes HIV/AIDS Genital warts Hepatitis B Chlamydia Syphilis Gonorrhea (Clap) Vaginitis Trichomonias (Trick) What are the symptoms of STIs? Sometimes, there are no symptoms. If symptoms are present, they may include: Bumps, sores, or warts near the mouth, anus, penis, or vagina Swelling or redness near the penis or vagina Skin rash Painful urination Weight loss, loose stools, night sweats Aches, pains, fever, and chills Yellowing of the skin (jaundice) Discharge from the penis or vagina (Vaginal discharge may smell bad.) Bleeding from the vagina other than during a monthly period Painful sex Severe itching near the penis or vagina Discharge from the penis Discharge from the vagina that is different than usual (different odor, color, amount, or associated with irritation) How can I know if I have an STI? Talk to your health care provider. He or she can examine you and perform tests to determine if you have a sexually transmitted disease. If you think that you have an STI, it's important to see your health care provider. Treatment can: Cure many STIs Lessen the symptoms of STIs Make it less likely you will spread the disease Help you to get healthy and stay healthy Provide you with information on how you can prevent getting and spreading STIs How are STIs treated? Many STIs are treated with antibiotics. Antibiotics are medicines that are given as a shot or takenby mouth. If you are given an antibiotic to treat an STI, it's important that you take all of your medicine, even if the symptoms go away. Also, never take someone else's medicine to treat your illness. By doing so, you may make it more difficult to treat the infection. Likewise, you should not share your medicine with others. How can I protect myself from STIs? Here are some basic steps you can take to help protect yourself from STIs: Consider that not having sex is the only sure way to prevent STIs. Use a latex condom every time you have sex. (If you use a lubricant, make sure it is water-based.) Limit your number of sexual partners. The more partners you have, the more likely you are to catch an STI. Practice monogamy. This means having sex with only one person. That person must also have sex with only you to reduce your risk. Choose your sex partners with care. Don't have sex with someone whom you suspect may have an STI. Request that your sex partner get tested before having sex with them for the first time. Get checked for STIs. Don't risk giving the infection to someone else. If you have more than one sex partner, always use a condom. Don't use alcohol or drugs before you have sex. You may be less likely to practice safe sex if you are drunk or high. Know the signs and symptoms of STIs. Look for them in yourself and your sex partners. Learn about STIs. The more you know about STIs, the better you can protect yourself. How can I prevent spreading a STI? Stop having sex until you see a health care provider and are treated. Follow your health care provider's instructions for treatment. Use condoms whenever you have sex, especially with new partners. Do not resume having sex unless your health care provider says it's okay. Return to your health care provider to get rechecked. Be sure your sex partner or partners also are treated. The Centers for Diseases Control (CDC) recommends that a screening test for HIV infection be performed routinely in all individuals age 13 to 64. Some national guidelines actually have extended this recommendation up to age 75 due to the increased rates of HIV infection in the elderly. Additionally, if you visit your doctor for treatment of STIs, the CDC recommends routine screening for HIV during each visit for a new complaint, regardless if you do or do not practice behaviors that put you at risk for HIV infection. Where can I learn more? CDC Hotline: 218.115.6361 www.cdc.gov/std/default.htm References Oliver ANNE, Nicho BERNAL. Sexually Transmitted Infections: Overview and Clinical Approach. In: Molly Enriquez, Keerthi S, Henok D, Marcel J, Calixto J. eds. David's Principles of Internal Medicine, 19e. [place], [place]: [facility]; 2015. library.ccf.org Accessed 07/12/2014. Centers for Disease Control and Prevention. Sexually Transmitted Diseases (STDs): Diseases & Related Conditions Accessed 07/12/2014. [employer] STDs Accessed 07/12/2014. National [employer] of Allergy and Infectious Diseases. Sexually Transmitted Diseases Accessed 07/12/2014. Copyright 9750-8135 [facility]. All rights reserved No sexual encounters until pelvic cultures are resulted. Urinary Tract Infections The urinary tract makes and stores urine, one of the body's liquid waste products. The urinary tract includes the following parts: Kidneys, which produce urine by removing waste and water from the blood Ureters, the tubes that carry urine from the kidneys to the bladder Bladder, the sac-like container for storing urine Urethra, the tube that carries urine from the bladder to outside of the body What is a urinary tract infection? Normal urine contains no bacteria (germs). Sometimes, however, bacteria from outside the body get into the urinary tract, and cause infection and inflammation. This is a urary tract infection. The infection can involve the urethra (a condition called urethritis), kidneys (a condition called pyelonep hritis) or bladder, (a condition called cystitis). Cystitis is the most common type of urinary tract infection. What are the symptoms of a urinary tract infection? A urinary tract infection causes the lining of the urinary tract to become red and irritated, whichmay produce some of the following symptoms: Pain in the flank (side), abdomen or pelvic area Pressure in the lower pelvis Frequent need to urinate (frequency) Painful urination (dysuria) Urgent need to urinate (urgency) Incontinence (urine leakage) The need to urinate at night Abnormal urine color (cloudy urine) Blood in the urine Strong or foul-smelling urine Other symptoms that may be associated with a urinary tract infection include: Pain during sex Penis pain Flank (side of the body) pain Fatigue Fever (temperature above 100oF) Chills Vomiting Mental changes or confusion What causes a urinary tract infection? Urinary tract infections are caused by microorganisms--usually bacteria--that enter the urethra andbladder, causing inflammation and infection. The bacteria also may travel up the ureters and infectthe kidneys. More than 90 percent of cystitis cases are caused by E. coli, a bacterium normally found in the intestines. How common are urinary tract infections? Urinary tract infections are very common, occurring in 1 out of 5 women sometime in their lifetime.One to 2% of children develop urinary tract infections. Each year, 8 million to 10 million visits to doctors are for urinary tract infections. Who gets urinary tract infections? Anyone can get a urinary tract infection, but they are more common in women. This is because the urethra in females is shorter and closer to the anus, where E. coli bacteria are common. Older adults also are at higher risk for developing cystitis. This increased risk may be due to incomplete emptying of the bladder related to various medical conditions, including an enlarged prostate or a bladderprolapse (i.e., falling down or slipping of the bladder from its usual position). If you get frequent urinary tract infections, your doctor may do tests to check for other health problems--such as diabetes or an abnormal urinary system--that may be contributing to your infections. How are urinary tract infections diagnosed? Your doctor will use the following tests to diagnose a urinary tract infection: Urinalysis to examine the urine for red blood cells, white blood cells and bacteria (The number of white and red blood cells can indicate an infection.) Urine culture to determine the type of bacteria in the urine. This is important to help determine the appropriate treatment. If your infection does not respond to treatment or if you get repeated infections, your doctor may use the following tests to examine your urinary tract for disease or injury: Intravenous pyelogram (IVP), a series of X-rays of the bladder, kidneys and ureters after a specialdye is injected (The dye helps the structures to show up better on the X-ray.) Ultrasound, a test that uses sound waves to form images of internal organs Cystoscopy, a test that uses a special instrument fitted with a lens and a light source (cystoscope) to see inside the bladder from the urethra CT scan, a type of X-ray that takes cross sections of the body (like slices) - much more precise than typical X-rays How are urinary tract infections treated? Antibiotics, medicines that kill the bacteria, are used to treat urinary tract infections. Your doctor will choose a drug that best treats the bacteria causing your infection. Commonly used antibiotics include: Nitrofurantoin Sulfonamides (sulfa drugs) Amoxicillin Cephalosporins Trimethoprim/sulfamethoxazole (Bactrim ) Doxycycline Quinolones (such as ciprofloxacin [Cipro ]) It is very important that you follow your doctor's directions for taking the medicine. Do not stop taking the antibiotic because your symptoms go away and you start feeling better. If you have a history of frequent urinary tract infections, you may be given a prescription for antibiotics that you would take at the first onset of symptoms. Other patients may be given antibiotics to take every day,every other day, or after sexual intercourse to prevent the infection. If the infection is not treated completely with the full course of antibiotics, it can return. What are the complications of a urinary tract infection? A urinary tract infection that is not treated can lead to a more serious infection of the kidneys. Can urinary tract infections be prevented? There are some steps you can take to reduce your risk of developing a urinary tract infection: Follow good hygiene practices of the genital area (especially women). After a bowel movement, the genitals should be wiped from front to back to reduce the chance of dragging E. coli bacteria from the rectal area to the urethra. Urinate frequently. This flushes bacteria out of the bladder and may reduce the risk of cystitis inthose who are prone to urinary tract infections. Drinking plenty of fluids encourages frequent urination. Avoid fluids and foods that irritate the bladder, such as alcohol, citrus juices, drinks containing caffeine and spicy foods. Also avoid smoking during this time. Urinate immediately before and after sex. This may help flush out bacteria that may have been introduced during intercourse. Wash the genital area with warm water before having sex. Apply an estrogen-containing vaginal cream in post-menopausal women to reduce the risk of a urinarytract infection. Your physician will decide with you if this is something that may benefit you. Theestrogen cream changes the pH of the vagina to make one less susceptible to infections. Drink at least 6-8 glasses of water a day Don't douche Don't use feminine deodorants on your genital area Change tampons and feminine pads often Use a water-based lubricant during sex if you have vaginal dryness Check with your doctor if you think your diaphragm is causing infection Wear cotton underwear Take showers instead of baths Avoid tight-fitting clothing and pantyhose What is the prognosis (outlook) for a person with a urinary tract infection? While urinary tract infections may be uncomfortable, they generally respond well to treatment. When should I call my health care provider? Call your health care provider if you have symptoms of a urinary tract infection. Also call if you have been diagnosed with an infection and your symptoms get worse or you develop new symptoms, especially fever, back pain and vomiting. References National Kidney and Urologic Diseases Information Clearinghouse. Urinary Tract Infections in AdultsAccessed 10/03/2013. Womenshealth.gov. Urinary tract infection fact sheet Accessed 10/03/2013. Copyright 0871-1695 [facility]. All rights reserved Follow up in 3-5 days with PCP if symptoms persist or sooner if worsening of symptoms. If any acutechange in illness, severe worsening of symptoms, concerning symptom or red flag symptoms as discussed report to nearest Emergency Department documented in this encounterOhio State [facility] Hospital04-03-2023 Miscellaneous Notes* Telephone Encounter - Tiffani Barros - 06/07/2022 8:31 AM EDT Message was given to the patient. Tiffani Barros * Telephone Encounter - Finn Elise PA-C - 06/07/2022 8:16 AM EDT Please let the patient know that I have called in medication to the pharmacy for her Esthela infection. No need for other testing at this time. All other tests including are negative Finn Elise PA-C documented in this encounterOhio State [facility] Hospital04-01-2023 Miscellaneous Notes* Telephone Encounter - Sushma Mcconnell RN - 06/05/2022 3:21 PM EDT Reason for call; Pt c/o severe lower abdominal pain x one hour. Pt rates pain 10/10 Outcome: ER now. Virtualist not consulted as pt says she wants to go to ER now. Reason for Disposition [1] SEVERE pain (e.g., excruciating) AND [2] present > 1 hour Protocols used: Abdominal Pain - [id number] documented in this encounterOhio State East Hospital03-31-2023 History of Present illness Narrative* Finn Elise PA-C - 06/04/2022 2:37 PM EDT JUANY Johnson is a 31 year old female Patient presents with: UTI The patient presents for concerns for std exposure, UTI symptoms, and a test. The patient was tested for a UTI at an outside facility however did not complete her antibiotics due to concern for . at outside facility was negative however patient is 4 days late for her menstrual cycle- her cycle is not always regular however she has never gone more than 3 days without her period. She reports of recent unprotected intercourse. She also reports of bloating in her abdomen. She states that there is a chunky, white vaginal discharge. She reports of nausea without VD. Also reports of urinary frequency She states that she had a negative STD panel at the ED and she declines full panel STD testing donetoday in the office/lab. CURRENT MEDICATIONS: Current Outpatient Medications Medication Sig ondansetron orally disintegrating (ZOFRAN ODT) 4 mg disintegrating tablet Take 1 tablet by mouth every 8 hours as needed for nausea/vomiting. ARIPiprazole lauroxil ER (ARISTADA) 1,064 mg/3.9 mL injection Inject 10 mg intramuscularly. cholecalciferol (VITAMIN D3) 10 mcg/drop (400 unit/drop) oral drops Take 1 tablet by mouth once daily. cyanocobalamin (VITAMIN B-12) 500 mcg tablet Take 500 mcg by mouth. No current facility-administered medications for this visit. REVIEW OF SYSTEMS: Past medical history was reviewed and updated. Past surgical history was reviewed and updated. Family History: was reviewed and updated. Past social history was reviewed and updated. GENERAL: No weight loss, malaise or fevers HEENT: Negative for frequent or significant headaches, No changes in hearing or vision, no nose bleeds or other nasal problems NECK: Negative for lumps, goiter, pain and significant neck swelling RESPIRATORY: Negative for cough, hemoptysis, wheezing, COPD, dyspnea or shortness of breath CARDIOVASCULAR: Negative for chest pain, leg swelling, hypertension, CHF or palpitations GI: See HPI : See HPI BEHAVIORAL HEALTH THERAPIST: SEE HPI MUSCULOSKELETAL: Negative for joint pain or swelling, back pain or muscle pain SKIN: Negative for lesions, rash, and itching PSYCH: negative for symptoms of depression and anxiety. HEMATOLOGY/LYMPHOLOGY Negative for prolonged bleeding, bruising easily or swollen nodes ENDOCRINE: Negative for cold or heat intolerance, polyuria, polydipsia and goiter NEURO: negative for migraine headaches, numbness or tingling of hands, and numbness or tingling of feet PHYSICAL EXAMINATION: BP 114/78 Pulse 66 Temp 37.1 C (98.7 F) (Temporal) Wt 52.8 kg (116 lb 6.4 oz) LMP 05/06/2022 (Approximate) BMI 20.62 kg/m General Appearance: well appearing, in no acute distress, alert, no palor, no jaundice, no lymphedenopathy Skin: Skin color, texture, turgor normal, no suspicious rashes or lesions Head: Normocephalic, no masses, lesions, tenderness or abnormalities Back: no pain to palpation over spine or costovertebral angles Lungs: Lungs clear to auscultation. No wheezing, rhonchi, rales. Heart: RRR without murmur, gallop, or rubs. No ectopy Abdomen: Normal abdominal exam, Abdomen soft, non-tender. Bowel sounds normal. No masses, organomegaly Musculoskeletal: No joint swelling, deformity, or tenderness. Neurologic: Gait normal. cranial nerves and limbs exam is grossly intact. ASSESSMENT/PLAN: 1. UTI symptoms - ICD9: 788.99, ICD10: R39.9 (primary diagnosis) - URINE CULTURE 2. Possible exposure to STD - ICD9: V01.6, ICD10: Z20.2 - ESTHELA / TRICHOMONAS AMPLIFICATION - BACTERIAL VAGINOSIS AMPLIFICATION 3. Encounter for test, result unknown - ICD9: V72.40, ICD10: Z32.00 - HCG QUANTITATIVE Finn Elise PA-C documented in this encounter[facility] Miscellaneous Notes* Telephone Encounter - Matilda Conde RN - 06/04/2022 7:10 AM EDT Reason for call: UTI, concern for Outcome: 24 hour recommendation, care advice given, patient verbalized understanding. Conferenced Patient to appointment center for scheduling. Reason for Disposition Bad or foul-smelling urine Answer Assessment - Initial Assessment Questions 1. SYMPTOM: frequency, foul-odor, itching 2. ONSET: x 2 weeks 3. PAIN: bladder heaviness, rates 6/10 4. CAUSE: UTI 5. OTHER SYMPTOMS: denies 6. : LMP 05/05/22, patient states she is 5 days late Patient states was seen at an outside ED and given prescription for antibiotics but did not complete do to concern for . Symptoms never resolved. Protocols used: Urinary [id number] documented in this encounterOhio [facility]03-10-[facility]23 History of Present illness Narrative* Finn Elise PA-C - 05/14/2022 4:20 PM EST Ms. Johnson is a 31 year old new patient to me today. The patient presents today to establish care. She states that she has been having stomach pain recently. Does have a GI history. Denies nausea Vomited yesterday, has diarrhea currently Period was at the first of the month PAST MEDICAL HISTORY Diagnosis Date Bacterial vaginosis Hypotension IBS (irritable bowel syndrome) Ovarian cyst UTI (urinary tract infection) Vaginal atrophy PAST SURGICAL HISTORY Procedure Laterality Date CHOLECYSTECTOMY HX KIDNEY STONE SURGERY HX Right 10/31/2019 Current Outpatient Medications Medication Sig Dispense Refill ondansetron orally disintegrating (ZOFRAN ODT) 4 mg disintegrating tablet Take 1 tablet by mouth every 8 hours as needed for nausea/vomiting. 10 tablet 0 ARIPiprazole lauroxil ER (ARISTADA) 1,064 mg/3.9 mL injection Inject 10 mg intramuscularly. cholecalciferol (VITAMIN D3) 10 mcg/drop (400 unit/drop) oral drops Take 1 tablet by mouth once daily. cyanocobalamin (VITAMIN B-12) 500 mcg tablet Take 500 mcg by mouth. No current facility-administered medications for this visit. CURRENT ALLERGIES: ALLERGIES Allergen Reactions Ciprofloxacin Anaphylaxis, Hives, Rash, Shortness of Breath Cold Cream Anaphylaxis Diphenhydramine Hives, Rash, Shortness of Breath, Swelling Hives Hydrocortisone Hives, Rash, Swelling Peanut Anaphylaxis Sulfamethoxazole-Tr* Hives, Rash, Shortness of Breath Sulfa (Sulfonamide * Hives, Rash Loratadine Rash, Swelling Sulfasalazine Unknown SOCIAL HISTORY: Social History Tobacco Use Smoking status: Never Passive exposure: Never Smokeless tobacco: Never Substance Use Topics Alcohol use: Yes Comment: occ Drug use: Never History reviewed. No pertinent family history. ROS: GENERAL: No weight loss, malaise or fevers HEENT: Negative for frequent or significant headaches NECK: Negative for lumps, goiter, pain and significant neck swelling RESPIRATORY: Negative for cough, hemoptysis, wheezing, COPD, dyspnea or shortness of breath CARDIOVASCULAR: Negative for chest pain, leg swelling, CHF or palpitations GI: See HPI : No history of dysuria, frequency or incontinence BEHAVIORAL HEALTH THERAPIST: Negative for abnormal vaginal bleeding, abnormal vaginal discharge MUSCULOSKELETAL: back pain SKIN: Negative for lesions, rash, and itching PSYCH: Negative for sleep disturbance, mood disorder and recent psychosocial stressors HEMATOLOGY/LYMPHOLOGY: Negative for prolonged bleeding, bruising easily or swollen nodes ENDOCRINE: Negative for cold or heat intolerance, polyuria, polydipsia and goiter NEURO: No history of headaches, syncope, paralysis, seizures or tremors PHYSICAL EXAMINATION: BP 107/73 (BP Site: Left Arm, BP Position: Sitting, BP Cuff Size: Regular Adult) Pulse 68 Temp 37.7 C (99.8 F) (Temporal) Ht 149.9 cm (4' 11) Wt 52.2 kg (115 lb) LMP 05/05/2022 (Exact Date) SpO2 98% BMI 23.23 kg/m Body mass index is 23.23 kg/m . PHYSICAL EXAM: General Appearance: Well appearing, alert, in no acute distress, well-hydrated, well nourished. Skin: Skin color, texture, turgor normal, no suspicious rashes or lesions Head: Normocephalic, no masses, lesions, tenderness or abnormalities Eyes: Anicteric sclera. Pupils are equally round. Extraocular movements are intact. Ears: External ears normal, canals clear Nose/Sinuses: Nares normal, septum midline, mucosa normal, no drainage or sinus tenderness Oropharynx: Lips, mucosa, and tongue normal, teeth and gums normal, oropharynx normal Neck: Supple, no adenopathy; thyroid symmetric, normal size, no bruits Back: Normal exam Lungs: Lungs clear to auscultation. No wheezing, rhonchi, rales. Heart: RRR without murmur, gallop, or rubs. No ectopy Abdomen: Abdomen soft, non-tender. Bowel sounds normal. No masses, organomegaly. Extremities: No deformities, edema, or skin discoloration. Musculoskeletal: No joint swelling, deformity, or tenderness Peripheral Pulses: +3/4 radial and DP +3/4 MARY Neurologic: No focal deficits ASSESSMENT/PLAN: 1. Encounter for medical examination to establish care - ICD9: V70.9, ICD10: Z00.00 (primary diagnosis) - Counseled on healthy diet and regular exercise - Calcium intake with supplements or by diet of 1000 mg/day for under 50, 1200- 1500 mg/day for 50+ - Follow up for annual exam in one year - LIPID PANEL BASIC - COMP METABOLIC PANEL - CBC + DIFF - CONSULT TO OPHTHALMOLOGY 2. Generalized abdominal pain - ICD9: 789.07, ICD10: R10.84 - Imodium OTC as directed - Increase fiber in diet - Long low residue diet 3. Special screening examination for viral disease - ICD9: V73.99, ICD10: Z11.59 - HEP C AB IA W/CONF SCRN 4. Screening for HIV (human immunodeficiency virus) - ICD9: V73.89, ICD10: Z11.4 - HIV 1 2 COMBO(AG/AB),WITH REFLEX TO DIFFERENTIATION 5. B12 deficiency - ICD9: 266.2, ICD10: E53.8 - VITAMIN B12 BLOOD 6. Iron deficiency anemia, unspecified iron deficiency anemia type - ICD9: 280.9, ICD10: D50.9 - IRON + TIBC 7. Irritable bowel syndrome with constipation - ICD9: 564.1, ICD10: K58.1 - CONSULT TO GASTROENTEROLOGY 8. Lumbar pain - ICD9: 724.2, ICD10: M54.50 - CONSULT TO PHYSICAL THERAPY 9. Vitamin D deficiency - ICD9: 268.9, ICD10: E55.9 - VITAMIN D 25 HYDROXY EARLENE Phillips LPN was present with me throughout the entire duration of the exam today documented in this encounterOhio [facility]03-06-2023 Miscellaneous Notes* Telephone Encounter - Fletcher Rashid RN - 05/10/2022 4:05 PM EST Images from the original note were not included. Please see message from Dr. Favio García below. MILTON Estrella MD You 17 minutes ago (3:47 PM) ME Yes agree, she will need to go to the ED for evaluation. Matthieu García MD * Telephone Encounter - Fletcher Rashid RN - 05/10/2022 3:28 PM EST Called patient identified by name and . Gave message from Dr. Early below. Patient states she is having vaginal irritation, discharge and foul odor and burring with urinationand frequency. States discharge has some blood in it. Just ended period a few days ago. States alsohas lower back pain where kidney's are 5/10 on pain scale. Also started having N&V 2 days ago. Unable to keep fluids down. States has not been able to keep food down for two days. Also has had yunior rrhea that started yesterday. Denies fever. States had kidney infection last month, did not finish medication prescribed because she was not tolerating well causing N&V hoping this is not turning into that. Also states has had blood in urine in past explaining UA comes back often positive for blood asking if this is normal. Has PCP appointment 05-14-22. Explained she also has B6 deficiency and almost passed out walking down the street today. Advised patient to go to ED with all of her symptoms and not being able to keep food or fluids downfor two days. Please advise of anything further. Fletcher Rashid RN * Telephone Encounter - Matthieu García MD - 05/10/2022 2:11 PM EST Please ask patient if she has any urinary symptoms, if so she will need to repeat the urine cultureclean catch. Thank you Matthieu García MD documented in this encounterOhio [facility]03-02-2023 Instructions* Patient Instructions* Matthieu García MD - 05/06/2022 2:16 PM EST ACOG Screening Guidelines The following health screening schedule is recommended by the [employer] (ACOG). Some of these tests may be ordered or performed by your primary care doctor. Pap test screening The pap test looks at cells on the cervix (the opening from the vagina to the uterus) to look for cancer or pre-cancerous changes. These changes are caused by the human papillomavirus (HPV). Studies estimate that half of all women will test positive for this virus within 3 years of starting sexual activity. For young women with a normal immune system, 90% of HPV infections will resolve within 2 years. There is a vaccine available against some forms of HPV. This is recommended for girls and women age 9-45. For ages 9-14, two injections are given at 0 and 6 months. For ages 15-45, three injections are given at 0,2 and 6 months. Because this vaccine does not protect against all HPV types whichcan cause cervical cancer, women who received the vaccine still need pap tests. Pap smear screening should be started at age 21. The pap test should be done every 3 years from [id number]. From age 30-65, pap smears can be done every 5 years if HPV test is negative or every 3 years if HPV testing is not done. For women over the age of 65, ACOG recommends against screening women who have had adequate prior screening and are not otherwise at high risk for cervical cancer. Women who have had a hysterectomy also do not need routine pap smear screening unless the pap smear was done for a cervical cancer or moderate to severe dysplasia. Breast cancer screening Mammogram should be performed every 1-2 years starting at age 40 and every year starting at age 50.Screening may be started earlier depending on family history. Cholesterol screening Lipid panel (cholesterol test) should be checked every 5 years starting at age 45. Diabetes screening Fasting glucose (blood sugar) test should be performed every 3 years starting at age 45. Colorectal cancer screening Starting at age 45, women should have a screening colonoscopy at least every 10 years. Screening may be started earlier depending on family history. Thyroid screening Thyroid function test (TSH) should be checked every 5 years starting at age 50. Bone mineral density screening All postmenopausal women age 65 and over and postmenopausal women with risk factors for osteoporosis should have a bone mineral density test performed. Risk factors include race, family history of osteoporosis, personal history of fractures, poor nutrition, smoking, heavy alcohol use, early menopause, low calcium intake and low body weight. Certain medical conditions and long-term use of some medications may also increase risk. documented in this encounterOhio [facility]03-02-2023 History of Present illness Narrative* Matthieu García MD - 05/06/2022 1:52 PM EST Luli is a 31 year old who presents for an annual gynecologic exam without complaints. Patient stated sometimes she get some vaginal itching but nothing now, and also some burning with urination but nothing now as well Menses: cycles every 28 days and 1-2 days of flow. Contraception: condoms Sexually active: Yes History of STDS: None Patient concerns for STD exposure: No. 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 LMP: 05/05/2022, Having periods Age at Menarche: Age at First : Age at Menopause: Data Center Engineer History Comments: Sexual Activity: Yes; No partner data on record Contraception: No contraception data on record PAST MEDICAL HISTORY Diagnosis Date Bacterial vaginosis Hypotension IBS (irritable bowel syndrome) Ovarian cyst UTI (urinary tract infection) Vaginal atrophy PAST SURGICAL HISTORY Procedure Laterality Date CHOLECYSTECTOMY HX No family history on file.SOCIAL HISTORY Social History Tobacco Use Smoking status: Never Passive exposure: Never Smokeless tobacco: Never Substance Use Topics Alcohol use: Yes Comment: occ Drug use: Never REVIEW OF SYSTEMS Abdomen: No abdominal pain, nausea, vomiting, diarrhea, or constipation. No bloating, early satiety, indigestion, or increased flatulence. Bladder: No dysuria, gross hematuria, urinary frequency, urinary urgency, or incontinence. Breast: No breast lumps, nipple d/c, overlying skin changes, redness or skin retraction. Allergies and current medication updated:Yes EXAM: BP 108/76 Wt 116 lb (52.6kg) LMP 05/05/2022 GENERAL: pleasant, female in no apparent distress HEENT: Normocephalic, atraumatic NECK: Supple BREAST: soft, non-tender, symmetric, no dominant mass, normal nipple-areolar complex, no lymphadenopathy, and no nipple discharge CHEST: Normal inspiratory effort ABDOMEN: soft, non-tender, and no masses PELVIC: external genitalia normal, normal Bartholin's glands, urethra, [place]'s glands, no vulvar lesions, good vaginal support, physiologic discharge present, normal appearing perineal body and perianal region On her period, light bleeding BIMANUAL: uterus normal size, shape and consistency, no adnexal masses, and non-tender NEURO: alert and oriented x3,exam grossly non-focal EXTREMITIES: normal ASSESSMENT/PLAN: 1) Health maintenance: Pap done with HPV. Urine cx/ vag swab done and will treat based on results 2) Contraception: condoms. Contraceptive options reviewed and information provided. 3) STD screening: Declined STD check. 4) Follow up one year or sooner as needed Matthieu García MD * Rabia Celestin MA - 05/06/2022 1:51 PM EST [employer] offered: Patient accepts, visit chaperoned by rabia celestin. documented in this encounterOhio [facility]02-13-2023 Telephone encounter Note * Telephone Encounter - Kina Fajardo RN - 04/19/2022 4:01 PM EST Client name and Confirmed. This RN contacted client regarding nurse triage call from 04/17. Client reports no changes since this RN called on 04/05/22 regarding lumps. Client does report mouth twitching, client reports she is able to perform ADL's, no trouble breathing. Client reports that there is no redness at site today or swelling, no oozing, no pain. Client only reports 3 lumps. This RN recommended that client go to ER if symptoms get worse/ persist. This RN recommended warm compresses on area. Client verbalized understanding and agreed. This RN reminded client of upcoming apts- -04/22 with Nurse Claudio for symptom check -04/[address] Garcia for IPA -05/04 with Nurse Nani for 4th Aristada injection. Client states, she just started a job last week and can't make any of these appointments besides the injection apt on 05/04. This RN explained the importance of symptom check apt on 04/22 and IPA apton 04/30. Client reports wanting to wait until my boss says I can take off work. This RN again anatoly mmended client keep appointments. This RN reached out to client's CM, Dr. Corderora, and nurse employment specialist/program manager Marya David with up to date information regarding client and for possibility of plan. [id number] Miscellaneous Notes* Telephone Encounter - Kina Fajardo RN - 04/19/2022 4:01 PM EST Client name and Confirmed. This RN contacted client regarding nurse triage call from 04/17. Client reports no changes since this RN called on 04/05/22 regarding lumps. Client does report mouth twitching, client reports she is able to perform ADL's, no trouble breathing. Client reports that there is no redness at site today or swelling, no oozing, no pain. Client only reports 3 lumps. This RN recommended that client go to ER if symptoms get worse/ persist. This RN recommended warm compresses on area. Client verbalized understanding and agreed. This RN reminded client of upcoming apts- -04/22 with Nurse Claudio for symptom check -04/[address] Garcia for IPA -05/04 with Nurse Nani for 4th Aristada injection. Client states, she just started a job last week and can't make any of these appointments besides the injection apt on 05/04. This RN explained the importance of symptom check apt on 04/22 and IPA apton 04/30. Client reports wanting to wait until my boss says I can take off work. This RN again anatoly mmended client keep appointments. This RN reached out to client's NATASHA, Dr. Garcia, and nurse employment specialist/program manager Marya David with up to date information regarding client and for possibility of plan. * Telephone Encounter - Marsha Cobian RN - 04/17/2022 7:36 AM EST Situation: Patient calling with concern for lump under the skin. Background: patient reports she recently had a CT scan at [facility] and it was brought to her attention that she has some nodules under the skin on bilateral gluteal muscles. Patient reports she receives Abilify injections in those areas. Assessment: see nurse triage below, pt denies any pain, redness or fever. Recommendation: per disposition advised for patient to follow up with PCP or to go EC within the next 3 days. Instructed patient/caregiver to call back with any new or worsening symptoms, patient/caregiver verbalized understanding and appreciation. Patient requesting message be sent to recovery resources regarding this encounter. Marsha Cobian RN Reason for Disposition [1] Small swelling or lump AND [2] unexplained AND [3] present > 1 week Answer Assessment - Initial Assessment Questions 1. APPEARANCE of SWELLING: What does it look like? (e.g., lymph node, insect bite, mole) Pt reports nodules under the skin of bilateral buttocks 2. SIZE: How large is the swelling? (inches, cm or compare to coins) She reports the right buttock is about the size of a quarter and the left is about the size of a pea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 total aqwi-zv-lyjy time of the visit in counseling / coordination of care. Izzy Wiggins APRN.LAWANDA documented in this encounterOhio State East Hospital08-23-2022 History of Present illness Narrative* Kamini Kan - 10/27/2021 11:15 AM EDT Called patient and scheduled BEHAVIORAL HEALTH THERAPIST and ultrasound. * Reynaldo Ortega PA-C - 10/27/2021 9:49 AM EDT VIRTUAL VISIT PROGRESS NOTE This is a virtual visit using [employer] video visit. It required patient-provider interaction for themedical decision making as documented below. Luli Johnson is a 30 year old female seen for ED follow-up. Went to ED yesterday 10/26 for bladder pains which are improving. Has not yet taken ABX. Taking Tylenol PRN pain. Feeling feverish, nauseous. Vomited yesterday. +Vaginal itching, clear vaginal discharge. +Dysuria. She declined pelvic exam in the ED. Also c/o short periods, cycles lasts 24 hours. Has been ongoing x 10 months. Not heavy. Mild cramps. Previously, her menses lasted 5 days. Not on BC. Sexually active with 1 male partner who has had vasectomy. Has a known benign pituitary cyst. HCGu negative yesterday. HISTORY REVIEWED (electronic chart updated): PAST MEDICAL HISTORY Diagnosis Date Bacterial vaginosis Hypotension IBS (irritable bowel syndrome) Ovarian cyst UTI (urinary tract infection) Vaginal atrophy PAST SURGICAL HISTORY Procedure Laterality Date CHOLECYSTECTOMY HX History reviewed. No pertinent family history. Social History Tobacco Use Smoking status: Never Passive exposure: Never Smokeless tobacco: Never Substance Use Topics Alcohol use: Yes Comment: occ Drug use: Never Current Outpatient Medications Medication Sig ARIPiprazole lauroxil ER (ARISTADA) 1,064 mg/3.9 mL injection Inject 10 mg intramuscularly. cholecalciferol (VITAMIN D3) 10 mcg/drop (400 unit/drop) oral drops Take 1 tablet by mouth once daily. cyanocobalamin (VITAMIN B-12) 500 mcg tablet Take 500 mcg by mouth. doxycycline monohydrate 100 mg tablet Take 1 tablet by mouth twice daily for 14 days. metroNIDAZOLE (FLAGYL) 500 mg tablet Take 1 tablet by mouth twice daily for 14 days. No current facility-administered medications for this visit. ALLERGIES Allergen Reactions Ciprofloxacin Anaphylaxis, Hives, Rash, Shortness of Breath Cold Cream Anaphylaxis Diphenhydramine Hives, Rash, Shortness of Breath, Swelling Hives Hydrocortisone Hives, Rash, Swelling Peanut Anaphylaxis Sulfamethoxazole-Tr* Hives, Rash, Shortness of Breath Sulfa (Sulfonamide * Hives, Rash Loratadine Rash, Swelling Sulfasalazine Unknown REVIEW OF SYSTEMS: As noted in HPI PHYSICAL EXAMINATION: NAD ASSESSMENT: (R10.2) Pelvic pain in female (primary encounter diagnosis) (N93.9) Abnormal uterine bleeding (AUB) PLAN: - Pt's G/C and UCx from ED currently pending - recommend in-person visit for pelvic exam and additional vaginal cxs given her pain, vaginitis sxs. - US, TSH ordered PSR to call pt and schedule US and in-person visit with BEHAVIORAL HEALTH THERAPIST. Reynaldo Ortega PA-C Medical Decision Making: Problems: Low: Acute, uncomplicated illness or injury Data: Unique test result(s) reviewed: 3+ Unique test(s) ordered: 2 Risk: Low: Low risk from testing/treatment Medical Decision Making Level: 3 - Low documented in this encounterOhio [facility]-22-2022 Miscellaneous Notes* Telephone Encounter - Barbara Roberson RN - 10/26/2021 3:56 PM EDT Reason: Patient states she feels like she is unable to empty her bladder. Complains of abdominal pain and fullness. Dysuria and hematuria present. Patient states she feels like she is running a fever. Vomiting also. Outcome: Go to ED now. Reason for Disposition [1] Discomfort (pain, burning or stinging) when passing urine AND [2] female [1] Unable to urinate (or only a few drops) > 4 hours AND [2] bladder feels very full (e.g., palpable bladder or strong urge to urinate) Protocols used: Urinary [id number]-[id number]-PD, Urination Pain - [id number] documented in this encounterOhio State East Hospital08-04-2022 History of Present illness Narrative* Heidi Lacey RN - 10/08/2021 8:43 AM EDT Pt left message [facility]iring about [facility] not currently a [facility] of [facility] clinic and had negative test in ER. Pt contacted and states she is moving out of town on the and not sure if she can get an appointment in, but she does have a PCP she can call to discuss her lab results. Pt instructed to call her PCP. Pt agreeable. documented in this encounterPenn [facility] [id number] Note* ED Bed Hold Note - Kodi Yeung RN - 10/05/2021 1:07 AM EDT Bed: Z1H Expected date: Expected time: Means of arrival: Comments: 806 eval for triage Poss uti, walking in 129/84, 101, [facility] [id number] Miscellaneous Notes* ED Bed Hold Note - Kodi Yeung RN - 10/05/2021 1:07 AM EDT Bed: [facility] Expected date: Expected time: Means of arrival: Comments: 806 eval for triage Poss uti, walking in 129/84, 101, documented in this encounterPenn State Health [facility] [id number] History of Present illness Narrative* Marita Smith RN - 10/05/2021 1:03 AM EDT Patient is appropriate for triage and will be escorted to the lobby at this time. * Hanane Tomas MD - 10/05/2021 1:02 AM EDT HPI Chief Complaint Patient presents with Urinary Frequency 30yo f with pmhx as below presenting with dysuria and suprapubic pain with urinary frequency for the past several days. Pain worse with urination, burning, moderate, no n/v, no fever/chills. History provided by: Patient Jasper Coma Scale Score: 15 Patient History Past Medical History: Diagnosis Date Anxiety Depression Hypotension IBS (irritable bowel syndrome) Pituitary cyst (CMS/HCC) Syncope Past Surgical History: Procedure Laterality Date CHOLECYSTECTOMY KIDNEY STONE SURGERY Family History Family history unknown: Yes Social History Tobacco Use Smoking status: Never Smoker Smokeless tobacco: Never Used Vaping Use Vaping Use: Every day Substances: Nicotine, THC Substance Use Topics Alcohol use: Yes Comment: occasional Drug use: Yes Types: Marijuana/Cannabis Review of Systems Review of Systems Constitutional: Negative for chills and fever. HENT: Negative for congestion and sore throat. Eyes: Negative for pain and visual disturbance. Respiratory: Negative for cough and shortness of breath. Cardiovascular: Negative for chest pain and palpitations. Gastrointestinal: Positive for abdominal pain. Negative for diarrhea, nausea and vomiting. Genitourinary: Positive for dysuria and frequency. Negative for flank pain. Musculoskeletal: Negative for arthralgias and joint swelling. Skin: Negative for rash and wound. Neurological: Negative for weakness and headaches. Physical Exam ED Triage Vitals [10/05/21 0107] Temp Heart Rate Resp BP 36.9 C (98.4 F) 96 16 130/86 SpO2 Temp Source Heart Rate Source Patient Position 99 % Oral -- -- BP Location FiO2 (%) -- -- Physical Exam Vitals and nursing note reviewed. Constitutional: General: She is not in acute distress. Appearance: Normal appearance. She is normal weight. She is not ill-appearing, toxic-appearing or diaphoretic. HENT: Head: Normocephalic and atraumatic. Right Ear: External ear normal. Left Ear: External ear normal. Nose: Nose normal. No congestion or rhinorrhea. Mouth/Throat: Mouth: Mucous membranes are moist. Pharynx: Oropharynx is clear. No oropharyngeal exudate or posterior oropharyngeal erythema. Eyes: General: Right eye: No discharge. Left eye: No discharge. Extraocular Movements: Extraocular movements intact. Conjunctiva/sclera: Conjunctivae normal. Pupils: Pupils are equal, round, and reactive to light. Cardiovascular: Rate and Rhythm: Normal rate and regular rhythm. Pulses: Normal pulses. Heart sounds: Normal heart sounds. Pulmonary: Effort: Pulmonary effort is normal. No respiratory distress. Breath sounds: Normal breath sounds. No wheezing. Abdominal: General: Abdomen is flat. Bowel sounds are normal. There is no distension. Palpations: Abdomen is soft. Tenderness: There is abdominal tenderness in the suprapubic area. There is no guarding. Musculoskeletal: General: No swelling, tenderness, deformity or signs of injury. Normal range of motion. Cervical back: Normal range of motion and neck supple. No rigidity. Skin: General: Skin is warm and dry. Capillary Refill: Capillary refill takes less than 2 seconds. Findings: No erythema or rash. Neurological: General: No focal deficit present. Mental Status: She is alert and oriented to person, place, and time. Mental status is at baseline. Sensory: No sensory deficit. Motor: No weakness. Gait: Gait normal. Psychiatric: Mood and Affect: Mood normal. Behavior: Behavior normal. ED Course & MDM Clinical Impressions as of 10/05/21 0540 Infection due to Enterobacter cloacae Acute cystitis with hematuria MDM Number of Diagnoses or Management Options Acute cystitis with hematuria: new and requires workup Infection due to Enterobacter cloacae: new and requires workup Diagnosis management comments: IV Gentamicin as pt allergic to multiple antibiotics and urine cultures showing sensitivity to Gentamicin. Amount and/or Complexity of Data Reviewed Clinical lab tests: ordered and reviewed Risk of Complications, Morbidity, and/or Mortality Presenting problems: moderate Diagnostic procedures: moderate Management options: moderate General comments: MDM: Pt nontoxic, No acute abdomen, No increased work of breathing, no hypoxia. Labs and nursing notes reviewed. No emergent/urgent conditions found on exam and labs. Emergent/urgent conditions needing hospitalization considered. Patient Progress Patient progress: stable Procedures Discharged with Rx for Macrobid and PCP followup. Hanane Tomas MD 10/05/2143 documented in this encounterPenn State Health [facility] Medical [id number] History of Present illness Narrative* ARPIT Steinberg - 10/04/2021 2:41 PM EDT I introduced myself as the PA. History of Present Illness: 30-year-old female presents today by private auto for evaluation of pelvic pain, burning with urination, pelvic itching and rash. She states she was seen 2 days ago in triage but not by provider. Urine grew bacteria that is not susceptible to medication she is able to take at home. Was called to be admitted for IV antibiotics. Exam: CONSTITUTIONAL: Well-appearing; well-nourished; awake, alert, and aware in no acute distress. HEAD: Normocephalic and atraumatic. EYES: Ocular movements intact, no icterus, or conjunctival injection noted. NOSE: External nose is normal in appearance EARS: External ears are normal to inspection MOUTH: Patient's mouth is patent, there is no drooling, and voice inflection is normal NECK: Normal range of motion to encounter. No visible cervical adenopathy, masses, or lesions. RESP: Normal chest excursions with respirations CARDIAC: Peripheral perfusion appears to be normal ABDOMEN: Nondistended SKIN: No visible rash EXTREMITIES: Arms and legs have normal appearance and movement NEURO: Patient alert, oriented appropriately. Cranial nerves II through XII intact. Plan: labs, iv, admission documented in this encounterPenn State Health [facility]. [facility] [id number] History of Present illness Narrative* ARPIT Walter - 10/02/2021 4:20 AM EDT I have reviewed the nurse's note. I introduced myself as the Physician Hazardous Substances Scientist and informed the patient of the supervising physician who is available upon request, Dr. Tomas Patient is a 30 years old female with known history of multiple comorbidities presenting to the ED for lower abdominal/suprapubic discomfort irritation to the vaginal area that has been going on since yesterday. Patient is concerned about UTI or yeast infection. Patient urinalysis will be obtained and will be seen whenever becomes available. Constitutional: [Well-appearing, in no acute distress] EENMT: [Conjunctive pink, sclera non-icteric; no posterior erythema or lesions] Neck: [Supple, non-tender; no lymphadenopathy] Cardiovascular: [Regular rate and rhythm, no S3, S4, or murmur] Respiratory: [Clear to auscultation bilaterally without wheezes or rhonchi. Good, equal air exchange without accessory muscle use] Neurologic: [Awake, alert, answers questions appropriately without slurred speech] I saw this patient briefly and did an MSE in triage. Initial orders were placed in order to facilitate care for the ED provider who will be seeing patient in the main. Please see their notes for detail documentation. * Deepa Hudson RN - 10/02/2021 1:19 AM EDT Pt c/o abd pain since yesterday. Pt also States my personal is really red. I think I have a UTI oryeast documented in this encounterPenn State Health [facility] [id number] History of Present illness Narrative* ARPIT Collazo - 09/20/2021 4:24 PM EDT EMERGENCY MEDICINE NOTE History of Present illness Chief Complaint: Chief Complaint Patient presents with Dizziness Reports dizziness after smoking weed I introduced myself as the Physician Hazardous Substances Scientist and informed the patient of the supervising physician who is available upon request, Dr. Cruz HPI: The patient, Luli Johnson, is a 30 y.o. female presenting with lightheadedness and nausea. Patient is well-known to our facility. Today she was smoking marijuana with friends and thinks she smoked too much. She became tired and lightheaded. She was seeing black spots and had some nausea andepisode of vomiting. She normally does not smoke marijuana often. She does not believe it was lacedwith anything. This happened approximately 2 hours ago. It denies fevers, chills, chest pain, headache, confusion, facial droop, cough, diarrhea. Past medical, surgical and family history reviewed Goggles and Mask PPE worn during history, physical, and examinations throughout patients stay in the ED. I have reviewed the nursing notes. Review of Systems Pertinent positive and negative noted in above HPI, otherwise all other systems reviewed and negative. Physical Exam Vitals: 09/20/21 1626 BP: 123/86 Pulse: 93 Resp: 16 Temp: 36.9 C (98.4 F) TempSrc: Oral SpO2: 100% PULSE OX INTERPRETATION: The Pulse ox is 100%, which is normal CONSTITUTIONAL: Well-appearing; well-nourished; Awake, alert and aware, in no acute distress HEAD: Normocephalic; atraumatic EYES: PER, no icterus, no conjunctival injection or pallor NECK: No distended neck veins or RAZA RESP: Normal chest excursion with respiration; breath sounds clear and equal bilaterally CARD: Regular rhythm, without murmurs, rub or gallop ABD: Non-distended; non-tender, soft, without rigidity, rebound or guarding, no pulsatile mass CHEST: No pain with palpation SKIN: Normal for age and race; warm and dry without diaphoresis; no apparent lesions EXTREMITIES: Pulses are 2 plus and equal times 4 extremities, no peripheral edema or calf muscle pain or asymmetry NEURO: Alert and oriented at baseline mentation. All 4 extremities without sensorimotor deficit. Cranial nerves II through XII intact Previous Histories Past Medical History: Diagnosis Date Anxiety Depression Hypotension IBS (irritable bowel syndrome) Pituitary cyst (CMS/HCC) Syncope Past Surgical History: Procedure Laterality Date CHOLECYSTECTOMY KIDNEY STONE SURGERY Social History Tobacco Use Smoking status: Never Smoker Smokeless tobacco: Never Used Vaping Use Vaping Use: Every day Substances: Nicotine, THC Substance Use Topics Alcohol use: Yes Comment: occasional Drug use: Yes Types: Marijuana/Cannabis Family History Family history unknown: Yes Allergies Allergen Reactions Albolene Anaphylaxis Cat Dander Shortness of breath and Itching Other reaction(s): watery eyes Ciprofloxacin Anaphylaxis, Hives, Rash and Shortness of breath Ciprofloxacin-Hydrocortisone Swelling Diphenhydramine Hives, Rash, Shortness of breath and Swelling Hives Hydrocortisone Hives, Rash and Swelling Mineral Oil-Hydrophil Petrolat Anaphylaxis Peanut Anaphylaxis Sulfamethoxazole-Trimethoprim Hives, Rash and Shortness of breath Tree Nuts Anaphylaxis, Shortness of breath and Swelling All tree nuts All tree nuts Sulfa (Sulfonamide Antibiotics) Hives and Rash Loratadine Rash and Swelling Sulfasalazine Current Outpatient Medications Medication Instructions aripiprazole (ABILIFY IM) 10 mg, intramuscular, Every 2 months- per Psych Bacillus subtilis-inulin 1.5 billion cell-1 gram tablet,chewable oral cholecalciferol (VITAMIN D3) 10 mcg/drop (400 unit/drop) liquid 1 tablet, oral, Daily cyanocobalamin (VITAMIN B-12) 500 mcg, oral, Daily 25/iron fum/folic/dha (-1 ORAL) oral sod bicarb-sod chlor-neti pot (Sinus Wash Neti Pot) packet with rinse device 1 Package, sinus irrigation, Daily PRN Results Labs Reviewed - No data to display No orders to display The lab results, imaging results and other diagnostic exams were reviewed in EMR. All imaging independently reviewed by myself, and I agree with the radiologist interpretation. ED Course & MDM Past Records: reviewed Medications - No data to display MDM: Patient is in no distress. She smokes a little too much marijuana. She was able to ambulate in triage without difficulty. She is neurologically tact with normal vitals. Will wear off throughout the day. Was advised to rest and follow-up with PCP Clinical Impressions as of 09/20/21 1641 Lightheadedness Marijuana use Disposition Final Diagnosis: 1. Lightheadedness 2. Marijuana use Disposition: Discharge At time of Disposition, the patient is in stable condition. This documentation was created by an audible dictation and may contain unintended grammatical/terminology errors Damion S Trushaw, PA 09/20/21 1643 documented in this encounterPenn State Health [facility]. [facility] [id number] Note* ED Bed Hold Note - Brigid Vigil RN - 09/10/2021 3:04 PM EDT Bed: TR-01 Expected date: Expected time: Means of arrival: Comments: M6- triage- 30 yo F vaginal bleeding 124/92, 120hr, 14 100% [facility] [id number] Miscellaneous Notes* ED Bed Hold Note - Brigid Vigil RN - 09/10/2021 3:04 PM EDT Bed: TR-01 Expected date: Expected time: Means of arrival: Comments: M6- triage- 30 yo F vaginal bleeding 124/92, 120hr, 14 100% documented in this encounterPenn State Health [facility]. [facility] [id number] History of Present illness Narrative* Nallely Morris RN - 09/09/2021 2:25 PM EDT Pt states she is 11 days late and normally has a regular period. Admits she took 1 test that was invalid and the next test said negative Pt states she would like to rest on 09/17/21. rn agrees with pt. She has a sched appt on 10/05/21 she reports. rn informed her to keep her upcoming appt. Pt agrees. No additional needs at this time documented in this [facility]07-05-2022 History of Present illness Narrative* Shaniqua Cash MA - 09/08/2021 2:52 PM EDT Called pt and left vm to call back. * Basia Tristan DO - 09/08/2021 2:30 PM EDT Patient called after hours over weekend stating she was in the ER. Following day pt called again togive an update but no specifics were mentioned. Please reach out to patient for update after ER visit. Thank you. documented in this encounterPenn State Health [facility]. [facility] [id number] History of Present illness Narrative* Basia Tristan DO - 09/03/2021 4:48 PM EDT noted * Shaniqua Cash MA - 09/03/2021 4:46 PM EDT Pt was notified to stay at the hospital until results and doctor talk to pt. * Basia Tristan DO - 09/03/2021 4:40 PM EDT Patient has the option to go to the ER. My only request is that if she goes to please stay until her tests are completed and until the doctor talks to her about results. * Shaniqua Cash MA - 09/03/2021 4:06 PM EDT Pt states from after today's visit pt belly feels tender and bladder is a 10 out of 10 pt feels bladder is full have to go to the bathroom. Pt states some fluid liquid like a discharge came out aftergiving urine sample. Pt doesn't know if its something she needs to worry about or go to [facility] to get checked. documented in this encounterPenn State Health [facility]. [facility] [id number] History of Present illness Narrative* Shaniqua Cash MA - 08/27/2021 3:53 PM EDT Pt notified. * Basia Tristan DO - 08/27/2021 2:32 PM EDT Normal fasting blood sugar is less than 100. The numbers she reports are fine - likely the fasting numbers she is getting are slightly higher than 100 if she is eating late or eating unhealthy in theevenings. Unless she has a known history of diabetes, she does not need to be regularly checking blood sugars. * Shaniqua Cash MA - 08/27/2021 2:12 PM EDT Pt called stating that she has been checking her blood sugar for three days. Today pt check blood sugar it was 103, pt did not eat anything this morning. Pt states that she has been trying to gain weight and has been eating four times a day. Yesterday pt blood sugar was 104. Pt wanted to know if those numbers were okay and pt wanted to know how many times should she be checking her blood sugar. documented in this encounterPenn State Health [facility]. [facility] [id number] Note* ED Bed Hold Note - Heidi Toribio RN - 08/27/2021 2:27 AM EDT Bed: Z1-03 Expected date: Expected time: Means of arrival: Comments: 806 30F CP rads down left arm 80 132/90 15 99%ra [facility] [id number] Miscellaneous Notes* ED Bed Hold Note - Heidi Toribio RN - 08/27/2021 2:27 AM EDT Bed: [facility] Expected date: Expected time: Means of arrival: Comments: 806 30F CP rads down left arm 80 132/90 15 99%ra documented in this encounterPenn State Health [facility]. [facility] [id number] History of Present illness Narrative* ARPIT Ordaz - 08/27/2021 2:26 AM EDT EMERGENCY MEDICINE NOTE History of Present illness Chief Complaint: Chief Complaint Patient presents with Chest Pain I introduced myself as the Physician Hazardous Substances Scientist and informed the patient of the supervising physician who is available upon request, Dr. Tomas HPI: The patient, Luli Johnson, is a 30 y.o. female well-known to the emergency department with history of anxiety, pituitary cyst, IBS, depression presents via EMS for evaluation of chest discomfort that started approximately 1 hour ago. Patient states its anterior going to her left axilla and constant. Patient states she is had this several times in the past. She saw her graphic [employer] worker yesterday who is setting her up for a echocardiogram of her heart in September. Patient whenever she thinks about it starts feeling some of this discomfort. Patient states she is not short of breath but sometimesdoes get lightheaded and dizzy with these episodes. Denies any numbness or tingling. No falls or trauma. No history of VA. No peripheral edema. No hormone use. No recent surgeries. No history of PE or DVT. Goggles and Mask PPE worn during history, physical, and examinations throughout patients stay in the ED. I have reviewed the nursing notes. Review of Systems Pertinent positive and negative noted in above HPI, otherwise all other systems reviewed and negative. Physical Exam Vitals: 08/27/21 0243 08/27/21 0254 08/27/21 0423 BP: (!) 109/49 106/68 BP Location: Left arm;Upper Patient Position: Lying Pulse: 71 78 Resp: 18 18 Temp: 37.2 C (98.9 F) TempSrc: Oral SpO2: 94% 100% Weight: 52.6 kg (116 lb) Height: 1.524 m (60) PULSE OX INTERPRETATION: The Pulse ox is 100% on RA, which is normal CONSTITUTIONAL: Well-appearing; well-nourished; Awake, alert and aware, in no acute distress HEAD: Normocephalic; atraumatic EYES: PER, no icterus, no conjunctival injection or pallor NOSE: The nose is normal in appearance without rhinorrhea MOUTH: Moist mucous membranes. Posterior pharynx without erythema, edema or exudate. No drooling orstridor. NECK: No distended neck veins or RAZA RESP: Normal chest excursion with respiration; breath sounds clear and equal bilaterally CARD: Regular rhythm, without murmurs, rub or gallop ABD: Non-distended; non-tender, soft, without rigidity, rebound or guarding, no pulsatile mass CHEST: No pain with palpation SKIN: Normal for age and race; warm and dry without diaphoresis; no apparent lesions EXTREMITIES: Pulses are 2 plus and equal times 4 extremities, no peripheral edema or calf muscle pain or asymmetry Previous Histories Past Medical History: Diagnosis Date Anxiety Depression Hypotension IBS (irritable bowel syndrome) Pituitary cyst (CMS/HCC) Syncope Past Surgical History: Procedure Laterality Date CHOLECYSTECTOMY KIDNEY STONE SURGERY Social History Tobacco Use Smoking status: Never Smoker Smokeless tobacco: Never Used Vaping Use Vaping Use: Every day Substances: Nicotine, THC Substance Use Topics Alcohol use: Yes Comment: occasional Drug use: Yes Types: Marijuana/Cannabis Family History Family history unknown: Yes Allergies Allergen Reactions Albolene Anaphylaxis Cat Dander Shortness of breath and Itching Other reaction(s): watery eyes Ciprofloxacin Anaphylaxis, Hives, Rash and Shortness of breath Ciprofloxacin-Hydrocortisone Swelling Diphenhydramine Hives, Rash, Shortness of breath and Swelling Hives Hydrocortisone Hives, Rash and Swelling Mineral Oil-Hydrophil Petrolat Anaphylaxis Peanut Anaphylaxis Sulfamethoxazole-Trimethoprim Hives, Rash and Shortness of breath Tree Nuts Anaphylaxis, Shortness of breath and Swelling All tree nuts All tree nuts Sulfa (Sulfonamide Antibiotics) Hives and Rash Loratadine Rash and Swelling Sulfasalazine Current Outpatient Medications Medication Instructions aripiprazole (ABILIFY IM) 10 mg, intramuscular, Every 2 months- per Psych Bacillus subtilis-inulin 1.5 billion cell-1 gram tablet,chewable oral cholecalciferol (VITAMIN D3) 10 mcg/drop (400 unit/drop) liquid 1 tablet, oral, Daily cyanocobalamin (VITAMIN B-12) 500 mcg, oral, Daily 25/iron fum/folic/dha (-1 ORAL) oral sod bicarb-sod chlor-neti pot (Sinus Wash Neti Pot) packet with rinse device 1 Package, sinus irrigation, Daily PRN Results Labs Reviewed COMPREHENSIVE METABOLIC PANEL - Abnormal Result Value Sodium 138 Potassium 3.9 Chloride 104 CO2 26 Anion Gap 8 Glucose 103 (*) BUN 17 Creatinine 0.75 eGFR 124 BUN/Creatinine Ratio 22.7 (*) Calcium 9.3 AST (SGOT) 13 (*) ALT (SGPT) 16 Alkaline Phosphatase 31 (*) Total Protein 7.3 Albumin 4.7 Total Bilirubin 0.3 MAGNESIUM - Normal Magnesium 1.9 TROPONIN I HIGH SENSITIVITY - Normal High Sensitivity Troponin I <3 CBC WITH AUTO DIFFERENTIAL - Normal WBC 6.5 RBC 4.46 Hemoglobin 12.8 Hematocrit 38.0 MCV 85.1 MCH 28.7 MCHC 33.7 RDW 13.1 Platelets 232 MPV 7.0 Neutrophils Relative 61.9 Lymphocytes Relative 28.1 Monocytes Relative 7.9 Eosinophils Relative 1.4 Basophils Relative 0.7 Neutrophils Absolute 4.00 Lymphocytes Absolute 1.80 Monocytes Absolute 0.50 Eosinophils Absolute 0.10 Basophils Absolute 0.00 TROPONIN I HIGH SENSITIVITY - Normal High Sensitivity Troponin I <3 CBC AND DIFFERENTIAL Narrative: The following orders were created for panel order CBC and differential. Procedure Abnormality Status --------- ------ CBC auto differential[[id number]] Normal Final result Please view results for these tests on the individual orders. XR Chest 1 View Final Result No acute findings in the chest. -------- FINAL REPORT -------- Dictated By: Sean Steen Dictated Date: 08/27/2021 03:21 Assigned Physician: Sean Steen Reviewed and Electronically Signed By: Sean Steen Signed Date: 08/27/2021 03:21 Workstation ID: [id number] Transcribed By: Self Edit Transcribed Date: 08/27/2021 03:21 The lab results, imaging results and other diagnostic exams were reviewed in EMR. All imaging independently reviewed by myself, and I agree with the radiologist interpretation. ED Course & MDM Past Records: reviewed Medications ketorolac (TORADOL) injection 15 mg (15 mg intravenous Given 08/27/21 3937) MDM: Patient is afebrile nontoxic in appearance is resting comfortably at this time no acute distress. Will get EKG chest x-ray troponin continue to monitor. Patient is resting comfortably does not appear to be in acute distress, patient initial troponin isunremarkable, labs unremarkable, chest x-ray negative for acute findings. Patient EKG is nonacute. Will check delta troponin, patient states she has tolerated Toradol in the past and without any issues. We will give her a dose of Toradol IV check a delta troponin and likely discharged home. Patient is resting comfortably, delta troponin is unremarkable. Patient has no complaints, discussed all results with the patient, she will be discharged to follow-up with her PCP and her graphic pre press trades worker. Strict return precaution discussed. Patient is agreeable safe and stable for discharge. Kt Victoria am scribing an EKG interpretation for Dr. Tomas: Normal sinus rhythm 76 bpm no evidence of acute ST elevation VA, ischemia or other ectopy. Clinical Impressions as of 08/27/21 8209 Chest pain, unspecified type Reevaluation: Patient was reevaluated and found to stable Disposition Final Diagnosis: 1. Chest pain, unspecified type Disposition: Discharge At time of Disposition, the patient is in stable condition. ARPIT Ordaz 08/27/21 0880 Associated attestation - Hanane Tomas MD - 08/27/2021 6:09 AM EDT I was available in the emergency dept for consultation of this patient. I agree with the history and physical assessment and plan of care, with the following exceptions: None MDM:Pt nontoxic, No acute abdomen, No increased work of breathing, no hypoxia. Nursing notes reviewed. No emergent/urgent conditions found on exam Emergent/urgent conditions needing hospitalization considered. documented in this encounterPenn State Health [facility] [id number] History of Present illness Narrative* Basia Tristan DO - 08/25/2021 1:00 PM EDT Subjective Patient ID: Luli Johnson is a 30 y.o. female. Chief Complaint Patient presents with Other Pt might think she is Patient understands the risks and benefit regarding telemedicine, including but not limited to the potential breach of confidentiality or inadvertent access of protected health information using electronic communication in the provision of care and the potential disruption of electronic communication in the use of telehealth. Patient will be responsible for any copays, coinsurance or deductibles.Patient understands participation is voluntary and may stop at any time. Patient hereby gives verbal informed consent for the use of telemedicine in his or her medical care. If a 3rd libertarian is to be used during this visit, consent to include this person has been obtained. HPI Patient presents via telemed visit (audio+visual using [employer]). Missed period x 2 months. Bloated. Took two home tests - both negative. Went to Urgent Care this morning. Pt states sent her to location on [facility], a women's health clinic, [facility]. Someone at the said she could get ultrasound done at that clinic to evaluate for possible early . Pt went to that location and the doctor wasn't in office, so unable to do an ultrasound today. She has also contacted her OB office this morning. Pt states someone from the OB office told her toperform a bimanual exam. Pt states she did this, and believes her cervix feels swollen. Hasn't been able to see ObGyn in office due to transportation issues and rescheduled appointments. Noted in chart that pt had ER encounter today as well. Pt states she went to ER for evaluation but had to leave due to some family issue. Lab results from ER visit earlier today reviewed, including: Component Latest Ref Rng & Units 08/25/2021 Sodium 136 - 145 mmol/L 137 Potassium 3.6 - 5.1 mmol/L 3.9 Chloride 98 - 107 mmol/L 106 CO2 22 - 32 mmol/L 22 Anion Gap 6 - 18 9 Glucose 70 - 99 mg/dL 95 BUN 8 - 20 mg/dL 13 Creatinine 0.60 - 1.30 mg/dL 0.62 Calculated GFR mL/min/1.73m2 140 BUN/Creatinine Ratio 12.0 - 20.0 21.0 (H) Calcium 8.9 - 10.3 mg/dL 9.1 hCG Qual Negative Negative Review of Systems Cardiovascular: Positive for palpitations. Gastrointestinal: Positive for abdominal distention. Genitourinary: Positive for menstrual problem. Neurological: Positive for light-headedness. Objective Physical Exam Constitutional: General: She is not in acute distress. Appearance: Normal appearance. She is not ill-appearing. HENT: Head: Normocephalic and atraumatic. Pulmonary: Effort: Pulmonary effort is normal. No respiratory distress. Musculoskeletal: Cervical back: Neck supple. Neurological: Mental Status: She is alert. Psychiatric: Attention and Perception: Attention normal. Mood and Affect: Mood and affect normal. Speech: Speech normal. Assessment/Plan Missed period (Primary) Abnormal finding on EKG Palpitations Patient informed of negative serum hCG result from earlier today. Advised patient to follow up withher Cigar Making Machine Supervisor. Patient mentioned that she has an appointment tomorrow with cardiology for further evaluation of abnormal EKG and palpitations. Follow up in our office in 5 months for routine physical, sooner PRN. Time Spent with patient: 23 minutes. documented in this encounterPenn State Health [facility]. [facility] Medical [id number] Note* ED Bed Hold Note - Marium Whitehead RN - 08/25/2021 12:26 PM EDT Bed: TR-01 Expected date: 08/25/21 Expected time: 12:22 PM Means of arrival: Comments: 806-30 F test and US [facility] [id number] Miscellaneous Notes* ED Bed Hold Note - Marium Whitehead RN - 08/25/2021 12:26 PM EDT Bed: TR-01 Expected date: 08/25/21 Expected time: 12:22 PM Means of arrival: Comments: 806-30 F test and US documented in this encounterPenn State Health [facility]. [facility] [id number] History of Present illness Narrative* Basia Tristan DO - 08/18/2021 12:32 PM EDT The only thing I can find that ER did was an EKG, which was not changed compared to previous EKGs. * Allyson Del Valle - 08/17/2021 10:37 AM EDT Pt called asking for results that was done in er - pt was seen and left vanesa documented in this encounterPenn State Health [facility]. [facility] [id number] History of Present illness Narrative* Radha Kim RN - 08/17/2021 12:59 PM EDT Patient presenting with continuous episodes of dizziness and shortness of breath since her last visit here. Patient is requesting to see a graphic pre press trades worker documented in this encounterPenn State Health [facility]. [facility] [id number] History of Present illness Narrative* Jayesh Miller RN - 08/10/2021 10:20 AM EDT Pt called about her BEHAVIORAL HEALTH THERAPIST appt. Pt has to cancel her appt on 08/17/21, and next available visit isn't until the beginning of September. Pt is concerned about having 4 months of periods only lasting 1-2 days.Last menstrual cycle was from 07/18 to . Pt is now experiencing breast tenderness. Pt is interested in future , but boyfriend had a vasectomy. Pt has taken a few UPTs during these months ofshort cycles, all were negative. Pt does have a PCP and has had thyroid labs recently. Pt told thatRN will notify Dr. Bauman of her concerns, and pt will only be called back if she needs an appt before September. Encouraged pt to keep next BEHAVIORAL HEALTH THERAPIST appt, as several visits have been canceled per pt. Pt verbalized understanding. Pt transferred to [facility] to schedule next available BEHAVIORAL HEALTH THERAPIST appt. documented in this encounterPenn State Health [facility]. [facility] [id number] History of Present illness Narrative* Shaniqua Cash MA - 08/10/2021 10:14 AM EDT Called pt left vm to call back. * Basia Tristan DO - 08/10/2021 9:31 AM EDT See note, please call pt. Thanks. * Allyson Del Valle - 08/10/2021 9:12 AM EDT Pt called [facility] over the weekend Note: made pt apt Has some concerns asking for ma to call her documented in this [facility]06-01-2022 History of Present illness Narrative* Mirian Sanabria RN - 08/05/2021 1:45 PM EDT Pt called in and said she thinks she has a yeast infection and asked if she could take monistat cream. She said she is not and her test came back neg and I suggested otc monistat cream and to obstain from intercourse until she feels better and to wear lose fitting pants( not yogapants ) and to call back if she otc does not work . She denies other symptoms and voiced understanding documented in this [facility]06-01-2022 History of Present illness Narrative* Mirian Sanabria RN - 08/05/2021 11:10 AM EDT Pt called but did not give a reason for her call and when I called back- no answer documented in this [facility]05-27-2022 History of Present illness Narrative* Haley Robison LMSW - 07/31/2021 7:13 AM EDT Pt requesting transportation. She was advised to contact [facility]. RN indicates difficulty reaching [facility] this morning. She was offered a bus pass. * Ophelia Barriga RN - 07/31/2021 3:34 AM EDT Patient states she has not had a period for 2 months and is experiencing nausea and vomiting. Lower abdominal pain - 9/10. documented in this encounterPenn State Health [facility]. [facility] [id number] Miscellaneous Notes* ED Bed Hold Note - Marita Smith RN - 07/31/2021 3:23 AM EDT Bed: [facility] Expected date: 07/31/21 Expected time: 3:18 AM Means of arrival: Comments: M 806- triage 30 y F, n/v, missed period Triage appropriate 133/87, 99% RA, A&O x4 ETA 5 documented in this encounterPenn State Health [facility]. [facility] Medical [id number] History of Present illness Narrative* Shaniqua Cash MA - 07/22/2021 4:34 PM EDT Called pt and notified pt. Pt had a clear understanding. * Basia Tristan DO - 07/22/2021 4:07 PM EDT Could be something she ate, or something viral - advise pt to work on increasing fluid intake - water, Gatorade, as long as she tolerates that then can try popsicles and Jello, then can try a bland diet as tolerated including applesauce, bananas, toast, plain rice, crackers. Avoid any fried or greasy foods until she is feeling better. If the vomiting persists, if she isn't able to keep anything down, develops lightheaded/dizziness or shortness of breath, then ER visit is recommended. She may also schedule a visit to be seen, however again, if symptoms are severe would recommend ER visit due to likely need for IV fluids. * Shaniqua Cash MA - 07/22/2021 2:06 PM EDT Pt called stating that early this morning around 6am, not been feeling good very nausea and vomiting a lot. Not able to keep anything down. And about 1 ago pt said she vomited again, pt hasn't ate anything after that. Pt is feeling sore spot in middle of stomach and having back pain. Pt stated she did have her kidney stones removed before. documented in this encounterPenn State Health [facility]. [facility] [id number] History of Present illness Narrative* Shaniqua Cash MA - 07/20/2021 4:38 PM EDT Notified pt of results and had a clear understanding. * Basia Tristan DO - 07/20/2021 4:30 PM EDT Please let pt know labs are normal. B12 level is still within normal range. Thyroid labs are normal. Kidney and liver function, sugar and electrolytes all look fine. * Shaniqua Cash MA - 07/20/2021 3:57 PM EDT Pt was calling to get a better understanding of lab results. documented in this encounterPenn State Health [facility]. [facility] [id number] History of Present illness Narrative* Basia Tristan DO - 07/20/2021 11:20 AM EDT Subjective Patient ID: Luli Johnson is a 30 y.o. female. Chief Complaint Patient presents with Weight Check have problems with gaining weight and only two day periods. want to know whats going on with body. HPI Patient presents today for weight check. Had been noting weight loss. Eating 3 meals as well as snacks during the day. Feels she is still having trouble gain weight. Per our office record, weight has been as follows: 119 pounds on 04/21/21 111 pounds on 06/01/21 Today weight is up at 114 pounds. Scale at home also reading 114 pounds recently - last month weight at home was 120. Has previously been referred to GI - has yet to have colonoscopy done. C/o period duration of 2 days. Typically periods are monthly and 5 days in duration. Has had this shorter period for 3 months now. Has taken at home test that was negative. Boyfriend has had a vasectomy. Has talked with OB about this concern. Has appt next month with Cigar Making Machine Supervisor. Still getting tingling in bilateral fingers and toes. Happens at least once a day. No associated pain. Lasts less than 5 minutes. Reviewed that repeat B12 level was well within normal range after starting oral supplement. Makes note that she was diagnosed with a pituitary lesion in 2013, did see neurosurgery at that time but unsure if/when to follow up. MRI Brain from 11/2013: IMPRESSION: A 3 mm in greatest dimension cystic lesion of the pituitary is noted which may reflect a Rathke's cleft cyst or a cystic microadenoma. Clinical correlation and follow-up are recommended. The exam is otherwise normal. Review of Systems Constitutional: Positive for unexpected weight change. Negative for appetite change, chills and fever. Eyes: Negative for visual disturbance. Respiratory: Negative for cough and shortness of breath. Gastrointestinal: Positive for constipation (intermittent) and diarrhea (intermittent). Negative for abdominal pain, anal bleeding, blood in stool, nausea and vomiting. Endocrine: Negative for cold intolerance and heat intolerance. Genitourinary: Positive for menstrual problem. Negative for difficulty urinating, dysuria and hematuria. Musculoskeletal: Negative for back pain. Neurological: Negative for weakness, numbness and headaches. Objective Physical Exam Vitals reviewed. Constitutional: General: She is not in acute distress. Appearance: Normal appearance. She is not ill-appearing. HENT: Head: Normocephalic and atraumatic. Eyes: Extraocular Movements: Extraocular movements intact. Pupils: Pupils are equal, round, and reactive to light. Cardiovascular: Rate and Rhythm: Normal rate and regular rhythm. Heart sounds: No murmur heard. Pulmonary: Effort: Pulmonary effort is normal. Breath sounds: No wheezing or rhonchi. Abdominal: General: Bowel sounds are normal. There is no distension. Musculoskeletal: Cervical back: Neck supple. Right lower leg: No edema. Left lower leg: No edema. Lymphadenopathy: Cervical: No cervical adenopathy. Neurological: Mental Status: She is alert. Motor: No weakness (bilateral lower and upper extremites equal, grossly normal). Deep Tendon Reflexes: Reflex Scores: Brachioradialis reflexes are 2+ on the right side and 2+ on the left side. Patellar reflexes are 2+ on the right side and 2+ on the left side. Psychiatric: Mood and Affect: Mood normal. Behavior: Behavior normal. Assessment/Plan Paresthesia (Primary) - Vitamin B12; Future - Comprehensive metabolic panel; Future Irregular periods - Thyroid stimulating hormone; Future - T4, free; Future Pituitary cyst (CMS/HCC) Reassurance given that weight increased today from prior. Patient encouraged to follow up with GI for colonoscopy. Orders for repeat labs today. Patient to keep appt next month with Cigar Making Machine Supervisor to discuss period concerns. Asked pt to request records today from neurosurgery office for follow up on recommendations for pituitary cyst. Follow up in 6 months for routine physical, sooner PRN and pending review of labs. documented in this encounterPenn State Health [facility]. [facility] [id number] History of Present illness Narrative* Lon Good RN - 07/15/2021 4:04 PM EDT Patient calls in leaving only name and call back, no other information provided. RN calls back, patient did not answer. RN leaves call back number for the clinic. documented in this encounterPenn State Health [facility]. [facility] [id number] History of Present illness Narrative* Mirian Sanabria RN - 07/01/2021 8:28 AM EDT Pt stated she is having periods lasting one -two days and irregular and neg test and denies pain and she has cancelled appointments in the past and I had her transferred to national secretary for a rescheduling of material control supervisor appt. documented in this encounterPenn State Health [facility]. [facility] Medical [id number] History of Present illness Narrative* Ophelia Sinclair RN - 06/30/2021 1:46 PM EDT Pt left message yesterday morning stating she had a question about a possible appt or upcoming appt. Attempted to contact pt. Unable to reach pt. Left message advising pt that nurse was returning pt's call. documented in this encounterPenn State Health [facility]. [facility] Medical [id number] History of Present illness Narrative* HARINDER Storm - 06/05/2021 8:47 AM EDT JONATHAN consulted for patient transportation assistance. DEPUTY SHERIFF BAILIFF contacted patients Insurance [facility] [phone] at 8:46 am. The Confirmation number is:# [id number]. Patient is ambulatory and will be transported to: [address] [place] [address]. SW attempted to arrange transport for the pt to her MD office for her 11 am apt however; SW was told by [facility] that they cannot do facility to facility transport. There were no other needs. Case closed. * Maria Jordan MD - 06/05/2021 5:51 AM EDT Emergency Medicine Note 06/05/2021 8:36 AM EDT History of Present Illness Luli Johnson is a 30 y.o. female with a history of anxiety, depression, IBS who presents for evaluation of ongoing abdominal and pelvic pain. She reports that she has had weight loss and intermittent lower abdominal cramping pain for the past 2 weeks. She states that she had an abnormal cycle onMarch 19 that lasted only 2 days. Has had multiple negative tests. States she has had weight loss during this time and was recently referred to GI and nutrition; upcoming GI appointment on the of this month. She was at this emergency department yesterday and given a prescription for Macrobid and Reglan, but states that she vomited up the Macrobid today. She has ongoing concerns with her chronic constipation and IBS symptoms as well. Currently on MetroGel for bacterial vaginosis. States she is concerned about her ovaries. I have reviewed and agree with the nursing notes. Histories Past Medical History: Diagnosis Date Anxiety Depression Hypotension IBS (irritable bowel syndrome) Pituitary cyst (CMS/HCC) Syncope Past Surgical History: Procedure Laterality Date CHOLECYSTECTOMY KIDNEY STONE SURGERY Family History Family history unknown: Yes Social History Tobacco Use Smoking status: Never Smoker Smokeless tobacco: Never Used Vaping Use Vaping Use: Every day Substances: Nicotine, THC Substance Use Topics Alcohol use: Yes Comment: occasional Drug use: Yes Types: Marijuana/Cannabis Review of Systems 10 of 14 systems reviewed and negative except as listed in HPI. Systems included constitutional, eyes, ears/nose/mouth/throat, cardiovascular, respiratory, gastrointestinal, neurological, psychiatric, musculoskeletal, and hematologic. Physical Exam Vitals: 06/05/21 0605 06/05/21 0606 BP: 111/81 Pulse: 86 Resp: 16 Temp: 37.2 C (99 F) TempSrc: Oral SpO2: 97% Weight: 51.3 kg (113 lb) Height: 1.524 m (60) Constitutional: Alert, non-toxic, no acute distress Head: Normocephalic, atraumatic Eyes: EOMI, no scleral icterus Ears: Hearing grossly intact, no external deformities Nose: Normal in appearance, no rhinorrhea Neck: Supple, trachea midline Cardiovascular: Regular rate and rhythm, no murmurs Respiratory: Normal effort, normal rate Gastrointestinal: Abdomen non-distended, soft, mildly tender to palpation in bilateral lower quadrants without guarding Musculoskeletal: No obvious deformities, moves extremities spontaneously Neurologic: Awake, alert, answers questions appropriately without slurred speech Psychiatric: Normal thought content, affect within the normal range ED Course Pulse ox interpretation: The pulse ox is reading 97%, which is normal. Previous records have been reviewed. Clinical Impressions as of 06/05/21 0836 Generalized abdominal pain Medications ondansetron ODT (ZOFRAN-ODT) dispersible tablet 4 mg (4 mg oral Given 06/05/21 0803) Procedures Critical Care Medical Decision Making Luli Johnson is a 30 y.o. female here for evaluation of abdominal pain. Differential includes UTI, IBS, ovarian cyst, less likely torsion, low suspicion for acute pathology such as SBO. MDM: Patient is hemodynamically stable upon arrival with a benign exam. Ultrasound unremarkable. Urine with some white blood cells but no acute process. We did discuss that this could be secondary toher bacterial vaginosis, and she also has many squames. She is already on Macrobid but has had problems tolerating it with the Reglan so we will try Zofran. At this point, if she cannot tolerate it, I do not believe she would necessarily need IV antibiotics and have encouraged her to follow-up withher primary care physician. She states that she may be able to get into see GI today, so we will work on transportation. Disposition Discharge Scheduled Future Appointments Provider Specialty Dept Phone Center 07/01/2021 11:00 AM (Arrive by 10:45 AM) Basia Tristan DO Family Medicine [phone] [facility] 08/24/2021 9:20 AM (Arrive by 9:05 AM) ROXY PEREZ MD Obstetrics and Gynecology [phone] ROXY SAW ED Prescriptions Medication Sig Dispense Start Date End Date Auth. Provider ondansetron ODT (ZOFRAN-ODT) 4 mg dispersible tablet Dissolve 1 tablet (4 mg total) on top of the tongue every 8 (eight) hours if needed for nausea or vomiting for up to 5 days. 15 tablet 06/05/2021 06/10/2021 Maria Jordan MD Final diagnoses: [R10.84] Generalized abdominal pain Maria Jordan MD 06/05/21 0836 documented in this encounterPenn State Health [facility]. [facility] Medical [id number] History of Present illness Narrative* Reanna Suazo DO - 06/04/2021 8:00 PM EDT [facility] Emergency Department Note 06/04/2021 10:40 PM EDT History of Present Illness I have reviewed and agree with the nursing notes. Luli Johnson is a 30 y.o. female with past history of anxiety and IBS presenting for abdominal pain, dizziness, unintentional weight loss, and concern for possible . Patient states for the past 2 weeks she has had moderate lower abdominal cramping with associated distention. Pain does not radiate. she states she has lost 1 pound per day despite making a concerted effort to eat more. Patient states she had a short irregular menstrual period and took a home tests, 1 of whichappeared possibly faintly positive and the rest were negative. Patient admits to associated nausea which she states is chronic. Patient is currently being treated for bacterial vaginosis with a cream. Patient mitts to constipation. Patient describes the dizziness as lightheadedness. Patient denies fever, chills, cough, shortness of breath, diarrhea, numbness, tingling, weakness. No other exacerbating or alleviating factors identified. Histories Past Medical History: Diagnosis Date Anxiety Depression Hypotension IBS (irritable bowel syndrome) Pituitary cyst (CMS/HCC) Syncope Past Surgical History: Procedure Laterality Date CHOLECYSTECTOMY KIDNEY STONE SURGERY Family History Family history unknown: Yes Social History Tobacco Use Smoking status: Never Smoker Smokeless tobacco: Never Used Vaping Use Vaping Use: Every day Substances: Nicotine, THC Substance Use Topics Alcohol use: Yes Comment: occasional Drug use: Yes Types: Marijuana/Cannabis Review of Systems Review of Systems Constitutional: Positive for unexpected weight change. Negative for chills and fever. HENT: Negative for nosebleeds, rhinorrhea, sinus pain and sore throat. Respiratory: Negative for cough, shortness of breath and wheezing. Cardiovascular: Negative for chest pain and palpitations. Gastrointestinal: Positive for abdominal distention, abdominal pain, constipation and nausea. Negative for blood in stool, diarrhea and vomiting. Genitourinary: Negative for dysuria. Musculoskeletal: Negative for myalgias. Skin: Negative for rash. Neurological: Positive for dizziness. Negative for weakness, numbness and headaches. All other systems reviewed and are negative. Physical Exam Vitals: 06/04/21200906/04/21 2228 BP: 138/78 113/83 Pulse: 95 81 Resp: 16 16 Temp: 37.2 C (99 F) TempSrc: Oral SpO2: 99% 100% Weight: 51.7 kg (113 lb 14.4 oz) Height: 1.524 m (60) Pulse Ox Interpretation: Oxygen saturation is 100% which is normal. Constitutional: [Alert, Well appearing, Well nourished, in no acute distress] Head: [Normocephalic, Atraumatic] Eyes: [PERRL, no scleral icterus] Nose: [Normal in appearance, no rhinorrhea] Mouth: [Moist mucous membranes] Neck: [Supple, trachea midline] Cardiovascular: [Regular rate and rhythm, no murmurs, rubs, gallops] Respiratory: [Clear to auscultation bilaterally without wheezes, rhonchi, rales. Equal air exchangewithout accessory muscle use] Gastrointestinal: [Softly distended, non-tender. Soft without rigidity] Skin: [Normal for age, no rash or lesions] Musculoskeletal: [No edema, normal peripheral perfusion and pulses] Neurologic: [Awake, alert, answers questions appropriately without slurred speech, no focal deficits] Results and Interpretations Medications nitrofurantoin (macrocrystal-monohydrate) (MACROBID) capsule 100 mg (has no administration in time range) metoclopramide HCl (REGLAN) tablet 10 mg (has no administration in time range) Labs Reviewed URINALYSIS WITH MICROSCOPIC REFLEX CULTURE - Abnormal Result Value Color, Urine Yellow Clarity, Urine Hazy (*) Specific [place] Urine 1.018 pH, Urine 7.0 Leukocytes, Urine 250 (*) Nitrite, Urine Negative Protein, Urine 30 (*) Glucose, Urine Normal Ketones, Urine Negative Urobilinogen, Urine Normal Blood, Urine 1+ (*) Bilirubin, Urine Negative RBC, Urine 7 (*) WBC, Urine 15 (*) Bacteria, Urine Rare (*) Squamous Epithelial, Urine Many (*) Mucus, UA Rare (*) HCG QUALITATIVE, URINE - Normal Preg Test, Ur Negative CULTURE URINE No orders to display Medical Decision Making & ED course Luli Johnson is a 30 y.o. female here for evaluation of abdominal cramping. Patient's abdomen issoftly distended but nontender, clinically constipated and she admits to not having a bowel movement despite eating. Patient has had multiple CT scans in the past given that she is hemodynamically stable and has a benign abdominal exam with the exception of soft abdominal distention I will spare her any radiation and treat empirically for constipation. Patient however states she will not tolerateany stool softeners or laxatives which she has tried in the past due to their flavors and textures.Will prescribe short course of Reglan for dual effect of nausea and prokinetic effect. Urinalysis does show pyuria, will treat as a UTI. Patient has multiple allergies and intolerances to antibiotics, patient states she has not tried Macrobid and will take it. Patient vies follow-up with primary care and gastroenterology and to return to emergency room for fevers, uncontrolled vomiting, severe abdominal pain, or any other concerns. Clinical Impressions as of 06/04/210 Constipation, unspecified constipation type Acute cystitis with hematuria Medications nitrofurantoin (macrocrystal-monohydrate) (MACROBID) capsule 100 mg (has no administration in time range) metoclopramide HCl (REGLAN) tablet 10 mg (has no administration in time range) Disposition Discharge Scheduled Future Appointments Provider Specialty Dept Phone Center 07/01/2021 11:00 AM (Arrive by 10:45 AM) Basia Tristan DO Family Medicine [phone] [facility] 08/24/2021 9:20 AM (Arrive by 9:05 AM) ROXY PEREZ MD Obstetrics and Gynecology [phone] ROXY SAW Contact information for follow-up Basia Tristan DO Specialty: Family Medicine Relationship: PCP - General [address] [place] [phone] Next Steps: Schedule an appointment as soon as possible for a visit Instructions: As needed, Return to ED sooner if symptoms worsen ED Prescriptions Medication Sig Dispense Start Date End Date Auth. Provider metoclopramide HCl (REGLAN) 10 mg tablet Take 1 tablet (10 mg total) by mouth every 6 (six) hours if needed (nausea) for up to 7 days. 4 tablet 06/04/2021 06/11/2021 Reanna Suazo DO nitrofurantoin, macrocrystal-monohydrate, (MACROBID) 100 mg capsule Take 1 capsule (100 mg total) by mouth 2 (two) times a day for 5 days. 10 capsule 06/04/2021 06/09/2021 Reanna Suazo DO Diagnosis Final diagnoses: [K59.00] Constipation, unspecified constipation type [N30.01] Acute cystitis with hematuria Reanna Suazo DO 06/04/21 2305 documented in this encounterP[facility] [id number] History of Present illness Narrative* Basia Tristan DO - 06/04/2021 4:29 PM EDT Addended by: BASIA TRISTAN on: 06/04/2021 04:29 PM Modules accepted: Orders * Basia Tristan DO - 06/04/2021 4:29 PM EDT Referral ordered * Shanon Camargo LPN - 06/04/2021 2:37 PM EDT Pt would like a referral sent. States they take her insurance. [facility] [address] [address] documented in this encounterPenn State Health [facility] [id number] History of Present illness Narrative* Basia Tristan DO - 06/03/2021 4:35 PM EDT Addended by: BASIA TRISTAN on: 06/03/2021 04:35 PM Modules accepted: Orders * Basia Tristan DO - 06/03/2021 4:35 PM EDT Gi referral ordered. * Shanon Camargo LPN - 06/03/2021 11:32 AM EDT Pt called in today- c/o severe diarrhea that was first neon green and now starting to look brown, abdominal cramping all morning and upset stomach w/some vomiting. Pt went to [facility] yesterday c/o vomiting, dizziness and they told her she had a fever of 100.1. sent her to [facility] ER, which she said they didn't find anything wrong w/the blood work. Pt has IBS w/constipation usually. Currently does not have a GI doc. Pt now has a home scale and this AM was 109 and mentioned at appt here was 111. Informed her she must only go by 1 scale when monitoring her weight, as all scales will be a few pounds different. GI referral perhaps, since she is continually having GI issues? documented in this encounterPenn State [facility] [id number] History of Present illness Narrative* Basia Tristan DO - 06/02/2021 1:06 PM EDT noted * Shanon Camargo LPN - 06/02/2021 11:02 AM EDT Spoke w/pt about all. Voiced concern about weight loss, since her thyroid was ok. Pt stated she is going to buy a scale for home and monitor it. Advised that her daily weight will fluctuate, but if notices significant loss then should schedule a sooner appt. Pt verbalized understanding. * Shanon Camargo LPN - 06/02/2021 9:08 AM EDT Left message for pt to call back. * Basia Tristan DO - 06/02/2021 8:46 AM EDT Labs are normal: Thyroid labs are normal - we can re-check this in 2 months. B12 level is normal - recommend decreasing the supplement from daily to every other day. Blood count is normal. Potassium is normal. Patient called and stated she was in the ER yesterday as well - I am not sure what they did for herat that visit(?) If not already given by ER, we could try muscle relaxer for headache, may be tension related. Please call patient with results. I feel that she will likely call back even with results in [place]. * Shanon Camargo LPN - 06/02/2021 7:40 AM EDT When you get a chance, will you please send her a [employer] message w/details and possible next steps? * Allyson Del Valle - 06/01/2021 3:40 PM EDT Pt got lab results today - asking if someone can call her and explain the results please documented in this [facility]03-28-2022 Emergency department Note* HARINDER Goldman - 06/01/2021 11:13 PM EDT Reason for Consult: Discharge transportation Consulted By: MILTON Arroyo Assessment Pt is medically cleared and in need of discharge transportation home to:[address] [place] [id number] Action Plan SW obtained pt's cell phone for lyft updates. A 1 time lyft provided due [facility] and pt having not enough funds or a natural resource to get home. Lyft info: Name and numberAv, Make and ModelToyota Corolla License plate : [id number] Medic Trey in triage messaged that the pt is receiving texts on her ride. No additional needs indicated. HARINDER Kirby [phone] [facility]03-28-2022 Emergency department Note* HARINDER Goldman - 06/01/2021 11:13 PM EDT Reason for Consult: Discharge transportation Consulted By: MILTON Arroyo Assessment Pt is medically cleared and in need of discharge transportation home to:[address] [place] [phone] Action Plan SW obtained pt's cell phone for lyft updates. A 1 time lyft provided due to system issues with [employer] currently and pt having not enough funds or a natural resource to get home. Lyft info: Name and numberAv, Make and [employer] Corolla License plate : [id number] Medic Trey in triage messaged that the pt is receiving texts on her ride. No additional needs indicated. HARINDER Kirby [phone] * Tadeo Munoz MD - 06/01/2021 10:48 PM EDT EMERGENCY DEPARTMENT ENCOUNTER CHIEF COMPLAINT Chief Complaint Patient presents with Critical Lab Values Weight Loss HPI Luli Johnson is a 30 y.o. female who presents for evaluation of labs. She states that she was at her PCP today where she had labs drawn. She is concerned as her TSH is 0.47. She states that she is having a headache which her PCP told her was a sinus headache earlier today. She denies any recent falls or trauma. REVIEW OF SYSTEMS Constitutional: No chills, fatigue and fever. HENT: No sore throat or rhinorrhea. Eyes: No vision changes or conjunctival injection. Respiratory: No shortness of breath or cough. Cardiovascular: No chest pain, leg swelling. Gastrointestinal: No abdominal distension, abdominal pain, nausea, vomiting or diarrhea. Genitourinary: No dysuria or hematuria. Skin: No rashes or wounds. MSK: No joint pain or swelling. Neurologic: No numbness, or weakness. PAST MEDICAL HISTORY Past Medical History: Diagnosis Date ADD (attention deficit disorder with hyperactivity) Allergy Alopecia (capitis) totalis Anger Anxiety Depressive disorder, not elsewhere classified Eating disorder, unspecified Eczema Irritable bowel syndrome with constipation Meibomian gland dysfunction 2019 Ovarian cyst Pre-eclampsia Vasovagal syndrome SURGICAL HISTORY Past Surgical History: Procedure Laterality Date CHOLECYSTECTOMY LAPAROSCOPIC N/A 06/23/2020 Laterality: N/A; Surgeon: Acacia Reeves MD; Location: [facility] OR COLONOSCOPY DIAGNOSTIC N/A 12/19/2019 Laterality: N/A; Surgeon: Katie Perez MD; [facility] EGD W/ BX N/A 12/19/2019 Laterality: N/A; Surgeon: Katie Perez MD; Location: [facility] OTHER SURGICAL 11/05/2019 urethral stent removal OTHER SURGICAL 10/31/2019 kidney stone removal EGD DIAGNOSTIC N/A 01/26/2019 Laterality: N/A; Surgeon: Kyle Marquez DO; Location: [facility]COPY STONERIDGE WISDOM TEETH EXTRACTION 1997 CURRENT MEDICATIONS Current Outpatient Medications Medication Sig acetaminophen (Tylenol) 325 MG tablet Take 2 tablets by mouth every 6 hours as needed for Moderate Pain (alternate with tylenol). ammonium lactate 12 % Cream cream Apply to affected area twice daily and rub in to affected area well ammonium lactate 12 % Lotion lotion AAA bid aripiprazole 5 MG tablet Take 1 tablet by mouth at bedtime. ARIPIPRAZOLE IM Inject 10 mg intramuscularly. benztropine 0.5 MG tablet Take 1 tablet by mouth at bedtime. bisacodyl 10 MG Suppository suppository 1 suppository rectally if no BM in 4 days. bisacodyl 10 MG Suppository suppository 1 suppository rectally if no BM in 4 days. Blood Pressure Monitoring (B-D ASSURE BPM/AUTO ARM CUFF) Misc 1 Units by Unknown route as needed. Cholestyramine 4 GM/DOSE Powder 4 gm orally mixed in water orally once a day. May increase by 4 gm/day each week as needed to control diarrhea EPINEPHrine 0.3 MG/0.3ML Solution Auto-injector Hives, lip/tongue/throat swelling, breathing trouble, lightheadedness, passing out or other symptoms of an allergic reaction. metroNIDAZOLE 0.75 % Gel 1 applicatorful vaginally at bedtime for 5 days Vit-Fe Fumarate-FA ( VITAMIN) 27-0.8 MG Tab Take 1 tablet by mouth daily. Probiotic Product (Digestive Advantage Gummies) Chew Tab Chew. ALLERGIES Allergies Allergen Reactions Albolene Anaphylaxis Cat Dander Itching and Dyspnea Other reaction(s): watery eyes Ciprofloxacin-Hydrocortisone Swelling Tree Nuts [[place]field Meal] Shortness of Breath All tree nuts Loratadine Rash and Swelling Sulfamethoxazole-Trimethoprim Hives and Rash FAMILY HISTORY Family History Problem Relation Age of Onset Mental Illness Cousin Alcoholism Cousin Hypertension Mother Hypertension Maternal Grandfather Lung Cancer Paternal Aunt Amblyopia Son GI Disease Son gerd Cataract Neg Hx Glaucoma Neg Hx Blindness Neg Hx Age-Related Macular Degeneration Neg Hx Retinal Detachment Neg Hx Colorectal Cancer Neg Hx SOCIAL HISTORY Social History Socioeconomic History Marital status: Single Spouse name: Not on file Number of children: Not on file Years of education: Not on file Highest education level: Not on file Occupational History Occupation: unemployed Tobacco Use Smoking status: Never Smoker Smokeless tobacco: Never Used Vaping Use Vaping Use: Never used Substance and Sexual Activity Alcohol use: No Drug use: No Sexual activity: Yes Partners: Male Other Topics Concern Service Not Asked Blood Transfusions Not Asked Caffeine Concern Yes Comment: [place] [employer] [place] Occupational Exposure Not Asked Hobby Hazards Not Asked Sleep Concern No Stress Concern No Weight Concern Not Asked Special Diet Not Asked Back Care Not Asked Exercise Yes Comment: walks with son Bike Helmet Not Asked Seat Belt Not Asked Domestic Violence Not Asked Social History Narrative Single. Baby boy 03/2015 Social Determinants of Health Financial Resource Strain: Not on file Food Insecurity: Not on file Transportation Needs: Not on file Physical Activity: Not on file Stress: Not on file Social Connections: Not on file Intimate Partner Violence: Not on file Housing Stability: Not on file PHYSICAL EXAM Vital Signs:BP 120/73 Pulse 82 Temp 98.5 F (36.9 C) (Oral) Resp 16 Ht 1.524 m (5') SpO2 100% BMI 24.41 kg/m Smoking Status Never Smoker Constitutional: Well appearing, in no acute distress. Resting comfortably in hallway bed. HENT: Normocephalic and atraumatic. Oropharynx is clear and moist. Neck: Normal range of motion. Neck supple. Cardiovascular: Normal rate and regular rhythm. No murmurs. Pulmonary: Effort normal, non-labored. Good aeration and symmetric breath sounds. No wheezes or Rhonchi. Abdominal: Abdomen soft, non-distended. There is no tenderness. No rebound or guarding. MSK: No deformities, joint effusions. Skin: Skin is warm and dry. No rashes or wounds noted. Neuro: Alert and Oriented. Psychiatric: Normal mood and affect. Cooperative ED COURSE & MEDICAL DECISION MAKING Assessment: Luli Johnson is a 30 y.o. female who presents for evaluation of lab values. DDx: Borderline hyperthyroidism, Bacterial vaginosis Initial Plan: Labs: CBC, Chem 7, UA Imaging: none Therapeutic: none Consultation: none ED Course: Pt seen and evaluated in the ED. We discussed the nature of her diagnosis of bacterial vaginosis and borderline hyperthyroidism earlier today. We discussed that these issues would likely be best managed by her PCP. She stated understanding and was agreeable to following up with her PCP. She was quite pleasant and remained HDS while in the ED. Impression: Borderline Hyperthyroidism Disposition: Discharging to home. Tadeo Munoz MD Resident 06/01/21 [id number] * Alex Fagan MD - 06/01/2021 10:40 PM EDT dEPARTMENT of Emergency Medicine CHIEF COMPLAINT Critical Lab Values and Weight Loss HPI Luli Johnson is a 30 y.o. female who presents after finding out through MyChart that her TSH is low and is concerned for hyperthyroidism and associated headache and weight loss. There are no aggravating or relieving factors. REVIEW OF SYSTEMS Review of Systems Constitutional: Negative for chills and fever. HENT: Negative for congestion and sore throat. Respiratory: Negative for cough and shortness of breath. Cardiovascular: Negative for chest pain and leg swelling. Gastrointestinal: Negative for abdominal pain, nausea and vomiting. Genitourinary: Negative for difficulty urinating and frequency. Neurological: Negative for weakness and headaches. All other systems reviewed and are negative. PAST MEDICAL HISTORY Past Medical History: Diagnosis Date ADD (attention deficit disorder with hyperactivity) Allergy Alopecia (capitis) totalis Anger Anxiety Depressive disorder, not elsewhere classified Eating disorder, unspecified Eczema Irritable bowel syndrome with constipation Meibomian gland dysfunction 2020 Ovarian cyst Pre-eclampsia Vasovagal syndrome SURGICAL HISTORY Past Surgical History: Procedure Laterality Date CHOLECYSTECTOMY LAPAROSCOPIC N/A 06/23/2020 Laterality: N/A; Surgeon: Acacia Reeves MD; Location: [facility] OR COLONOSCOPY DIAGNOSTIC N/A 12/19/2019 Laterality: N/A; Surgeon: Katie Perez MD; Location: [facility] EGD W/ BX N/A 12/19/2019 Laterality: N/A; Surgeon: Katie Perez MD; Location: [facility] OTHER SURGICAL 11/05/2019 urethral stent removal OTHER SURGICAL 10/31/2019 kidney stone removal EGD DIAGNOSTIC N/A 01/26/2019 Laterality: N/A; Surgeon: Kyle Marquez DO; Location: [facility] STONERIDGE WISDOM TEETH EXTRACTION 1997 CURRENT MEDICATIONS No current facility-administered medications for this encounter. Current Outpatient Medications Medication Sig Dispense Refill acetaminophen (Tylenol) 325 MG tablet Take 2 tablets by mouth every 6 hours as needed for Moderate Pain (alternate with tylenol). 40 tablet 0 ammonium lactate 12 % Cream cream Apply to affected area twice daily and rub in to affected area well 385 g 3 ammonium lactate 12 % Lotion lotion AAA bid 500 g 3 aripiprazole 5 MG tablet Take 1 tablet by mouth at bedtime. ARIPIPRAZOLE IM Inject 10 mg intramuscularly. benztropine 0.5 MG tablet Take 1 tablet by mouth at bedtime. bisacodyl 10 MG Suppository suppository 1 suppository rectally if no BM in 4 days. 16 suppository 0 bisacodyl 10 MG Suppository suppository 1 suppository rectally if no BM in 4 days. 16 suppository 0 Blood Pressure Monitoring (B-D ASSURE BPM/AUTO ARM CUFF) Misc 1 Units by Unknown route as needed. 1Each 0 Cholestyramine 4 GM/DOSE Powder 4 gm orally mixed in water orally once a day. May increase by 4 gm/day each week as needed to control diarrhea 360 g 3 EPINEPHrine 0.3 MG/0.3ML Solution Auto-injector Hives, lip/tongue/throat swelling, breathing trouble, lightheadedness, passing out or other symptoms of an allergic reaction. 2 Device 0 metroNIDAZOLE 0.75 % Gel 1 applicatorful vaginally at bedtime for 5 days 70 g 0 Vit-Fe Fumarate-FA ( VITAMIN) 27-0.8 MG Tab Take 1 tablet by mouth daily. Probiotic Product (Digestive Advantage Gummies) Chew Tab Chew. ALLERGIES Allergies Allergen Reactions Albolene Anaphylaxis Cat Dander Itching and Dyspnea Other reaction(s): watery eyes Ciprofloxacin-Hydrocortisone Swelling Tree Nuts [[place]field Meal] Shortness of Breath All tree nuts Loratadine Rash and Swelling Sulfamethoxazole-Trimethoprim Hives and Rash FAMILY HISTORY Family History Problem Relation Age of Onset Mental Illness Cousin Alcoholism Cousin Hypertension Mother Hypertension Maternal Grandfather Lung Cancer Paternal Aunt Amblyopia Son GI Disease Son gerd Cataract Neg Hx Glaucoma Neg Hx Blindness Neg Hx Age-Related Macular Degeneration Neg Hx Retinal Detachment Neg Hx Colorectal Cancer Neg Hx SOCIAL HISTORY Social History Socioeconomic History Marital status: Single Spouse name: Not on file Number of children: Not on file Years of education: Not on file Highest education level: Not on file Occupational History Occupation: unemployed Tobacco Use Smoking status: Never Smoker Smokeless tobacco: Never Used Vaping Use Vaping Use: Never used Substance and Sexual Activity Alcohol use: No Drug use: No Sexual activity: Yes Partners: Male Other Topics Concern Service Not Asked Blood Transfusions Not Asked Caffeine Concern Yes Comment: [place] [employer] Occupational Exposure Not Asked Hobby Hazards Not Asked Sleep Concern No Stress Concern No Weight Concern Not Asked Special Diet Not Asked Back Care Not Asked Exercise Yes Comment: walks with son Bike Helmet Not Asked Seat Belt Not Asked Domestic Violence Not Asked Social History Narrative Single. Baby boy 03/2015 Social Determinants of Health Financial Resource Strain: Not on file Food Insecurity: Not on file Transportation Needs: Not on file Physical Activity: Not on file Stress: Not on file Social Connections: Not on file Intimate Partner Violence: Not on file Housing Stability: Not on file PHYSICAL EXAM BP 120/73 Pulse 82 Temp 98.5 F (36.9 C) (Oral) Resp 16 Ht 1.524 m (5') SpO2 100% BMI 24.41 kg/m Smoking Status Never Smoker Physical Exam Constitutional: Appearance: She is well-developed. HENT: Head: Normocephalic and atraumatic. Eyes: Pupils: Pupils are equal, round, and reactive to light. Cardiovascular: Rate and Rhythm: Normal rate and regular rhythm. Pulmonary: Effort: Pulmonary effort is normal. No respiratory distress. Breath sounds: Normal breath sounds. Abdominal: Palpations: Abdomen is soft. There is no mass. Tenderness: There is no abdominal tenderness. There is no guarding or rebound. Skin: General: Skin is warm and dry. Neurological: Mental Status: She is alert and oriented to person, place, and time. ED COURSE & MEDICAL DECISION MAKING Hyperthyroidism vs doubt thyroid storm, plan follow up with PCP On 06/01/2021 I saw and examined the patient. I discussed the history and examination with the resident and agree with the plan of care. Alex Fagan MD 06/01/212240 * Laury Bishop RN - 06/01/2021 10:01 PM EDT Bed: [facility] Expected date: Expected time: Means of arrival: Comments: triage * Ela Jacob RN - 06/01/2021 7:23 PM EDT Pt arrives via medic 25 with reports nausea, vomiting, dizziness, headaches and constipation x4 days. Pt reports syncopal episode today, denies hitting head. Reports getting up and feeling dizzy and passing out on the couch. Pt reports unintentional weight loss approx 10 lbs in the last month, history of IBS. Thyroid levels low at PCP. Pt alert and oriented on arrival, vital signs stable, afebrile. [facility] Phys[facility] Emergency department Note* Tadeo Munoz MD - 06/01/2021 10:48 PM EDT EMERGENCY DEPARTMENT ENCOUNTER CHIEF COMPLAINT Chief Complaint Patient presents with Critical Lab Values Weight Loss HPI Luli Johnson is a 30 y.o. female who presents for evaluation of labs. She states that she was at her PCP today where she had labs drawn. She is concerned as her TSH is 0.47. She states that she is having a headache which her PCP told her was a sinus headache earlier today. She denies any recent falls or trauma. REVIEW OF SYSTEMS Constitutional: No chills, fatigue and fever. HENT: No sore throat or rhinorrhea. Eyes: No vision changes or conjunctival injection. Respiratory: No shortness of breath or cough. Cardiovascular: No chest pain, leg swelling. Gastrointestinal: No abdominal distension, abdominal pain, nausea, vomiting or diarrhea. Genitourinary: No dysuria or hematuria. Skin: No rashes or wounds. MSK: No joint pain or swelling. Neurologic: No numbness, or weakness. PAST MEDICAL HISTORY Past Medical History: Diagnosis Date ADD (attention deficit disorder with hyperactivity) Allergy Alopecia (capitis) totalis Anger Anxiety Depressive disorder, not elsewhere classified Eating disorder, unspecified Eczema Irritable bowel syndrome with constipation Meibomian gland dysfunction 2019 Ovarian cyst Pre-eclampsia Vasovagal syndrome SURGICAL HISTORY Past Surgical History: Procedure Laterality Date CHOLECYSTECTOMY LAPAROSCOPIC N/A 06/23/2020 Laterality: N/A; Surgeon: Acacia Reeves MD; Location: [facility] OR COLONOSCOPY DIAGNOSTIC N/A 12/19/2019 Laterality: N/A; Surgeon: Katie Perez MD; Location: [facility] ENDOSCOPY EGD W/ BX N/A 12/19/2019 Laterality: N/A; Surgeon: Katie Perez MD; Location: [facility] ENDOSCOPY OTHER SURGICAL 11/05/2019 urethral stent removal OTHER SURGICAL 10/31/2019 kidney stone removal EGD DIAGNOSTIC N/A 01/26/2019 Laterality: N/A; Surgeon: Kyle Marquez DO; [facility]COPY STONERIDGE WISDOM TEETH EXTRACTION 1997 CURRENT MEDICATIONS Current Outpatient Medications Medication Sig acetaminophen (Tylenol) 325 MG tablet Take 2 tablets by mouth every 6 hours as needed for Moderate Pain (alternate with tylenol). ammonium lactate 12 % Cream cream Apply to affected area twice daily and rub in to affected area well ammonium lactate 12 % Lotion lotion AAA bid aripiprazole 5 MG tablet Take 1 tablet by mouth at bedtime. ARIPIPRAZOLE IM Inject 10 mg intramuscularly. benztropine 0.5 MG tablet Take 1 tablet by mouth at bedtime. bisacodyl 10 MG Suppository suppository 1 suppository rectally if no BM in 4 days. bisacodyl 10 MG Suppository suppository 1 suppository rectally if no BM in 4 days. Blood Pressure Monitoring (B-D ASSURE BPM/AUTO ARM CUFF) Misc 1 Units by Unknown route as needed. Cholestyramine 4 GM/DOSE Powder 4 gm orally mixed in water orally once a day. May increase by 4 gm/day each week as needed to control diarrhea EPINEPHrine 0.3 MG/0.3ML Solution Auto-injector Hives, lip/tongue/throat swelling, breathing trouble, lightheadedness, passing out or other symptoms of an allergic reaction. metroNIDAZOLE 0.75 % Gel 1 applicatorful vaginally at bedtime for 5 days Vit-Fe Fumarate-FA ( VITAMIN) 27-0.8 MG Tab Take 1 tablet by mouth daily. Probiotic Product (Digestive Advantage Gummies) Chew Tab Chew. ALLERGIES Allergies Allergen Reactions Albolene Anaphylaxis Cat Dander Itching and Dyspnea Other reaction(s): watery eyes Ciprofloxacin-Hydrocortisone Swelling Tree Nuts [Ashfield Meal] Shortness of Breath All tree nuts Loratadine Rash and Swelling Sulfamethoxazole-Trimethoprim Hives and Rash FAMILY HISTORY Family History Problem Relation Age of Onset Mental Illness Cousin Alcoholism Cousin Hypertension Mother Hypertension Maternal Grandfather Lung Cancer Paternal Aunt Amblyopia Son GI Disease Son gerd Cataract Neg Hx Glaucoma Neg Hx Blindness Neg Hx Age-Related Macular Degeneration Neg Hx Retinal Detachment Neg Hx Colorectal Cancer Neg Hx SOCIAL HISTORY Social History Socioeconomic History Marital status: Single Spouse name: Not on file Number of children: Not on file Years of education: Not on file Highest education level: Not on file Occupational History Occupation: unemployed Tobacco Use Smoking status: Never Smoker Smokeless tobacco: Never Used Vaping Use Vaping Use: Never used Substance and Sexual Activity Alcohol use: No Drug use: No Sexual activity: Yes Partners: Male Other Topics Concern Service Not Asked Blood Transfusions Not Asked Caffeine Concern Yes Comment: [place] [employer] [place] Occupational Exposure Not Asked Hobby Hazards Not Asked Sleep Concern No Stress Concern No Weight Concern Not Asked Special Diet Not Asked Back Care Not Asked Exercise Yes Comment: walks with son Bike Helmet Not Asked Seat Belt Not Asked Domestic Violence Not Asked Social History Narrative Single. Baby boy 03/2015 Social Determinants of Health Financial Resource Strain: Not on file Food Insecurity: Not on file Transportation Needs: Not on file Physical Activity: Not on file Stress: Not on file Social Connections: Not on file Intimate Partner Violence: Not on file Housing Stability: Not on file PHYSICAL EXAM Vital Signs:BP 120/73 Pulse 82 Temp 98.5 F (36.9 C) (Oral) Resp 16 Ht 1.524 m (5') SpO2 100% BMI 24.41 kg/m Smoking Status Never Smoker Constitutional: Well appearing, in no acute distress. Resting comfortably in hallway bed. HENT: Normocephalic and atraumatic. Oropharynx is clear and moist. Neck: Normal range of motion. Neck supple. Cardiovascular: Normal rate and regular rhythm. No murmurs. Pulmonary: Effort normal, non-labored. Good aeration and symmetric breath sounds. No wheezes or Rhonchi. Abdominal: Abdomen soft, non-distended. There is no tenderness. No rebound or guarding. MSK: No deformities, joint effusions. Skin: Skin is warm and dry. No rashes or wounds noted. Neuro: Alert and Oriented. Psychiatric: Normal mood and affect. Cooperative ED COURSE & MEDICAL DECISION MAKING Assessment: Luli Johnson is a 30 y.o. female who presents for evaluation of lab values. DDx: Borderline hyperthyroidism, Bacterial vaginosis Initial Plan: Labs: CBC, Chem 7, UA Imaging: none Therapeutic: none Consultation: none ED Course: Pt seen and evaluated in the ED. We discussed the nature of her diagnosis of bacterial vaginosis and borderline hyperthyroidism earlier today. We discussed that these issues would likely be best managed by her PCP. She stated understanding and was agreeable to following up with her PCP. She was quite pleasant and remained HDS while in the ED. Impression: Borderline Hyperthyroidism Disposition: Discharging to home. Tadeo Munoz MD Resident 06/01/21 [id number] [facility] Work Phone: [phone]) 281-824403-28-2022 Hospital Discharge instructions* Discharge Instructions* Tadeo Munoz MD - 06/01/2021 10:46 PM EDT [facility] PHYSICIAN REFERRAL Please call the [facility] physician referral service at or toll-freeat to request a Primary Care Provider. You can also refer to the [facility] provider list that you were given. CLINICAL INSIDE SALES RECRUITER If you need any further assistance with scheduling follow up care, please call the Clinical Pool Finisher at . You were seen and evaluated in the ED and found to have a headache. You were otherwise doing quite well, it's important that you follow up with your primary care provider to follow up on your lab studies and recent diagnosis of bacterial vaginosis. documented in this encounter[facility] Physician Emergency department Note* Alex Fagan MD - 06/01/2021 10:40 PM EDT dEPARTMENT of Emergency Medicine CHIEF COMPLAINT Critical Lab Values and Weight Loss HPI Luli Johnson is a 30 y.o. female who presents after finding out through MyChart that her TSH is low and is concerned for hyperthyroidism and associated headache and weight loss. There are no aggravating or relieving factors. REVIEW OF SYSTEMS Review of Systems Constitutional: Negative for chills and fever. HENT: Negative for congestion and sore throat. Respiratory: Negative for cough and shortness of breath. Cardiovascular: Negative for chest pain and leg swelling. Gastrointestinal: Negative for abdominal pain, nausea and vomiting. Genitourinary: Negative for difficulty urinating and frequency. Neurological: Negative for weakness and headaches. All other systems reviewed and are negative. PAST MEDICAL HISTORY Past Medical History: Diagnosis Date ADD (attention deficit disorder with hyperactivity) Allergy Alopecia (capitis) totalis Anger Anxiety Depressive disorder, not elsewhere classified Eating disorder, unspecified Eczema Irritable bowel syndrome with constipation Meibomian gland dysfunction 2019 Ovarian cyst Pre-eclampsia Vasovagal syndrome SURGICAL HISTORY Past Surgical History: Procedure Laterality Date CHOLECYSTECTOMY LAPAROSCOPIC N/A 06/23/2020 Laterality: N/A; Surgeon: Acacia Reeves MD; Location: [facility] OR COLONOSCOPY DIAGNOSTIC N/A 12/19/2019 Laterality: N/A; Surgeon: Katie Perez MD; Location: [facility] EGD W/ BX N/A 12/19/2019 Laterality: N/A; Surgeon: Katie Perez MD; [facility] OTHER SURGICAL 11/05/2019 urethral stent removal OTHER SURGICAL 10/31/2019 kidney stone removal EGD DIAGNOSTIC N/A 01/26/2019 Laterality: N/A; Surgeon: Kyle Marquez DO; Location: [facility] ENDOSCOPY STONERIDGE WISDOM TEETH EXTRACTION 1997 CURRENT MEDICATIONS No current facility-administered medications for this encounter. Current Outpatient Medications Medication Sig Dispense Refill acetaminophen (Tylenol) 325 MG tablet Take 2 tablets by mouth every 6 hours as needed for Moderate Pain (alternate with tylenol). 40 tablet 0 ammonium lactate 12 % Cream cream Apply to affected area twice daily and rub in to affected area well 385 g 3 ammonium lactate 12 % Lotion lotion AAA bid 500 g 3 aripiprazole 5 MG tablet Take 1 tablet by mouth at bedtime. ARIPIPRAZOLE IM Inject 10 mg intramuscularly. benztropine 0.5 MG tablet Take 1 tablet by mouth at bedtime. bisacodyl 10 MG Suppository suppository 1 suppository rectally if no BM in 4 days. 16 suppository 0 bisacodyl 10 MG Suppository suppository 1 suppository rectally if no BM in 4 days. 16 suppository 0 Blood Pressure Monitoring (B-D ASSURE BPM/AUTO ARM CUFF) Misc 1 Units by Unknown route as needed. 1Each 0 Cholestyramine 4 GM/DOSE Powder 4 gm orally mixed in water orally once a day. May increase by 4 gm/day each week as needed to control diarrhea 360 g 3 EPINEPHrine 0.3 MG/0.3ML Solution Auto-injector Hives, lip/tongue/throat swelling, breathing trouble, lightheadedness, passing out or other symptoms of an allergic reaction. 2 Device 0 metroNIDAZOLE 0.75 % Gel 1 applicatorful vaginally at bedtime for 5 days 70 g 0 Vit-Fe Fumarate-FA ( VITAMIN) 27-0.8 MG Tab Take 1 tablet by mouth daily. Probiotic Product (Digestive Advantage Gummies) Chew Tab Chew. ALLERGIES Allergies Allergen Reactions Albolene Anaphylaxis Cat Dander Itching and Dyspnea Other reaction(s): watery eyes Ciprofloxacin-Hydrocortisone Swelling Tree Nuts [Ashfield Meal] Shortness of Breath All tree nuts Loratadine Rash and Swelling Sulfamethoxazole-Trimethoprim Hives and Rash FAMILY HISTORY Family History Problem Relation Age of Onset Mental Illness Cousin Alcoholism Cousin Hypertension Mother Hypertension Maternal Grandfather Lung Cancer Paternal Aunt Amblyopia Son GI Disease Son gerd Cataract Neg Hx Glaucoma Neg Hx Blindness Neg Hx Age-Related Macular Degeneration Neg Hx Retinal Detachment Neg Hx Colorectal Cancer Neg Hx SOCIAL HISTORY Social History Socioeconomic History Marital status: Single Spouse name: Not on file Number of children: Not on file Years of education: Not on file Highest education level: Not on file Occupational History Occupation: unemployed Tobacco Use Smoking status: Never Smoker Smokeless tobacco: Never Used Vaping Use Vaping Use: Never used Substance and Sexual Activity Alcohol use: No Drug use: No Sexual activity: Yes Partners: Male Other Topics Concern Service Not Asked Blood Transfusions Not Asked Caffeine Concern Yes Comment: [place] [employer] Occupational Exposure Not Asked Hobby Hazards Not Asked Sleep Concern No Stress Concern No Weight Concern Not Asked Special Diet Not Asked Back Care Not Asked Exercise Yes Comment: walks with son Bike Helmet Not Asked Seat Belt Not Asked Domestic Violence Not Asked Social History Narrative Single. Baby boy 03/2015 Social Determinants of Health Financial Resource Strain: Not on file Food Insecurity: Not on file Transportation Needs: Not on file Physical Activity: Not on file Stress: Not on file Social Connections: Not on file Intimate Partner Violence: Not on file Housing Stability: Not on file PHYSICAL EXAM BP 120/73 Pulse 82 Temp 98.5 F (36.9 C) (Oral) Resp 16 Ht 1.524 m (5') SpO2 100% BMI 24.41 kg/m Smoking Status Never Smoker Physical Exam Constitutional: Appearance: She is well-developed. HENT: Head: Normocephalic and atraumatic. Eyes: Pupils: Pupils are equal, round, and reactive to light. Cardiovascular: Rate and Rhythm: Normal rate and regular rhythm. Pulmonary: Effort: Pulmonary effort is normal. No respiratory distress. Breath sounds: Normal breath sounds. Abdominal: Palpations: Abdomen is soft. There is no mass. Tenderness: There is no abdominal tenderness. There is no guarding or rebound. Skin: General: Skin is warm and dry. Neurological: Mental Status: She is alert and oriented to person, place, and time. ED COURSE & MEDICAL DECISION MAKING Hyperthyroidism vs doubt thyroid storm, plan follow up with PCP On 06/01/2021 I saw and examined the patient. I discussed the history and examination with the resident and agree with the plan of care. Alex Fagan MD 06/01/21 [id number] [facility] Work Phone: [phone] Emergency department Note* Laury Bishop RN - 06/01/2021 10:01 PM EDT Bed: [facility] Expected date: Expected time: Means of arrival: Comments: triage [facility]03-28-2022 Emergency department Note* Ela Jacob RN - 06/01/2021 7:23 PM EDT Pt arrives via medic 25 with reports nausea, vomiting, dizziness, headaches and constipation x4 days. Pt reports syncopal episode today, denies hitting head. Reports getting up and feeling dizzy and passing out on the couch. Pt reports unintentional weight loss approx 10 lbs in the last month, history of IBS. Thyroid levels low at PCP. Pt alert and oriented on arrival, vital signs stable, afebrile. [facility]03-24-2022 History of Present illness Narrative* Jayesh Miller RN - 05/28/2021 9:00 AM EDT Pt called with c/o increased vaginal discharge, odor, and itching. The discharge has changed from clear to yellow. Pt also has spasms and burning with urination. Pt had a BEHAVIORAL HEALTH THERAPIST visit for menstrual irregularity/pelvic floor dysfunction 3 days ago and an ED visit for syncope, FORRESTER, and vag itching 2 daysago. Pt declined a pelvic exam and was not able to give a urine sample to be tested in the ED. Pt offered the soonest appt in 4 days. Pt said she would agree to an exam in our office. Pt encouraged to go to urgent care if her symptoms worsen or if she develops a fever. Pt verbalized understanding. documented in this encounterP[facility] [id number] History of Present illness Narrative* Kirsty Canchola RN - 05/26/2021 10:35 AM EDT Pt presents reporting headache, syncope with a fall prior to arrival and clear vaginal discharge and pelvic pain. Per pt she did not hit her head and and no LOC. Pt most concerned with vaginal discharge. Reporting neck pain and C collar applied by EMS. documented in this encounterPenn [facility] [id number] Miscellaneous Notes* ED Bed Hold Note - Avani Sierra RN - 05/26/2021 10:33 AM EDT Bed: Z1-05 Expected date: 05/26/21 Expected time: 10:26 AM Means of arrival: Comments: Medic 6 - 30 yof dizzy and passed out 107, 91/60, 97%ra, documented in this encounterPenn [facility] [id number] History of Present illness Narrative* Apolonia Bauman MD - 05/25/2021 1:20 PM EDT Subjective Patient ID: Luli Johnson is a 30 y.o. female. Chief Complaint Patient presents with Gynecologic Exam Presents for evaluation of diffuse lower abdominal pain present for the last 24hrs. Pt was evaluated in ED yesterday for same complaints, had negative lab work, including negative UPT and NEG CTAP. Pt reports her symptoms as no different than yesterday. Also notes her period occurred at normal timeon 05/23 but lasted only 24hrs when typically lasts 5d. She is sexually active with her boyfriend but he had a vasectomy 5yrs but as far as she is aware, he did not followup tp ensure negative semen analysis. Pt also reports she has a small tear in her vagina secondary to digital manipulation by SO that occurred last night. Of note, pt has frequent ED visits for abd pain, n/v, diarrhea. She has had numerous CTAP done. The following portions of the patient's chart were reviewed in this encounter and updated as appropriate: Review of Systems All other systems reviewed and are negative. Objective Physical Exam Constitutional: Appearance: Normal appearance. She is normal weight. Genitourinary: Vulva and urethral meatus normal. There are lesions (superficial tear at 6 oclock on introitus) in the vagina. Right Adnexa: not tender and no mass present. Left Adnexa: not tender and no mass present. No cervical motion tenderness. Uterus is not enlarged or tender. Bladder is tender. Levator ani is tender and pelvic spasms present. HENT: Head: Normocephalic and atraumatic. Nose: Nose normal. Eyes: Extraocular Movements: Extraocular movements intact. Pupils: Pupils are equal, round, and reactive to light. Pulmonary: Effort: Pulmonary effort is normal. Abdominal: General: Abdomen is flat. Palpations: Abdomen is soft. There is no mass. Tenderness: There is abdominal tenderness. There is no guarding or rebound. Hernia: No hernia is present. Musculoskeletal: General: Normal range of motion. Cervical back: Normal range of motion. Neurological: General: No focal deficit present. Mental Status: She is alert and oriented to person, place, and time. Skin: General: Skin is warm and dry. Psychiatric: Mood and Affect: Mood normal. Vitals and nursing note reviewed. Exam conducted with a hair boiler operator present. Assessment/Plan Menstrual irregularity (Primary) - POC , urine diagnostic manually resulted Pelvic floor dysfunction - Ambulatory referral to Physical Therapy and Athletic Training; Future Apolonia Bauman MD documented in this encounterPenn State Health [facility] [id number] History of Present illness Narrative* Dipti Cota PA-C - 05/22/2021 7:19 PM EDT Images from the original note were not included. Patient Name: [facility] Location: L[place] Jones [address] [address] Date Of : Date Of Visit: 1990 05/22/2021 MRN# Provider: [id number] Dipti Cota PA-C Chief Complaint Patient presents with Urinary Frequency Burning with urination, pink spotting, vomiting x 1 day states she is feeling nauseous Assessment & Plan 1. Dysuria POC Urinalysis Dipstick,Auto UC POC , Urine 2. Vomiting, intractability of vomiting not specified, presence of nausea not specified, unspecified vomiting type No follow-ups on file. Medical Decision Making Patient has recurrent nausea and vomiting and tender left abdominal nodules - seen in ED 05/16 for same symptoms, but left before evaluation was complete. DIP UA here shows SG of 1.030, 100 protein, moderate blood. Negative for signs of infection, ketones, glucose. Urine is negative. She has had proteinuria in the past. Abdominal exam is negative for acute abdomen - soft subdermal nodules were palpated left of midline which may represent a lipoma. Advised to continue prescribed Zofranas directed to help ease nausea. Instructed to sip small amounts of clear liquids every hour when awake for hydration. These issues are chronic recurrent in nature and advised follow up with primary care. Additional Clinical Comments Educated patient and/or guardian about signs and symptoms that would warrant further immediate evaluation. Recommended that they should return to urgent care, make an appointment with their family physician, or go to the emergency room if symptoms persist or get acutely worse. Recommended follow upwithin the next week with their PCP or to get established with a PCP soon in order to follow up appropriately. Subjective 30 y.o. female presents with Urinary Frequency (Burning with urination, pink spotting, vomiting x 1day states she is feeling nauseous) Patient reports a 2 day history of frequent vomiting (states has emesis within 1 minute of drinkingany fluids). She has prescribed Zofran at home which is not offering any relief. She is concerned she may be due to breast tenderness, stating she does not experience this prior to her menses which is due around 05/26. She also is concerned about tender knots in her left abdomen - she was last seen in an ED on 05/16 for these same symptoms, but left before evaluation was completed. Sami had multiple evaluations for nausea / vomiting, and has had findings of proteinuria on several past urine tests. She states she has lost at least 15 pounds in recent weeks. Review Of Systems Review of Systems Constitutional: Positive for appetite change and fever. Negative for activity change, chills, diaphoresis and fatigue. HENT: Negative for congestion. Respiratory: Negative for cough and shortness of breath. Cardiovascular: Negative for chest pain and leg swelling. Gastrointestinal: Positive for nausea and vomiting. Negative for abdominal distention, blood in stool, constipation and diarrhea. Endocrine: Negative for polydipsia, polyphagia and polyuria. Genitourinary: Negative for decreased urine volume, difficulty urinating, dysuria, flank pain, frequency, hematuria, pelvic pain, urgency, vaginal discharge and vaginal pain. Musculoskeletal: Negative for myalgias. Skin: Negative for rash. Tender knots left abdomen Neurological: Negative for dizziness, weakness, light-headedness and headaches. Psychiatric/Behavioral: Negative for confusion. The patient is not nervous/anxious. All other systems reviewed and are negative. 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 Seen on Pituitary MRI - pituitary size normal Vasovagal syncope Vitamin D deficiency Past Surgical History: Procedure Laterality Date CHOLECYSTECTOMY COLONOSCOPY CYSTO MAGGI LASER, RETRO, URETEROSCOPY, STENT (USUAL) Right 10/31/2019 Procedure: CYSTOSCOPY,RIGHT RETROGRADE PYELOGRAM, RIGHT URETEROSOCPY,; basket stone extraction RIGHT URETERAL STENT PLACEMENT; Surgeon: Yan Zuñiga MD; Location: [facility] Main OR; Service: Urology CYSTO RETRO STONE MANIPULATION STENT INSERTION Right 11/05/2019 Procedure: CYSTOSCOPY WITH RIGHT STENT REMOVAL; Surgeon: Yan Zuñiga MD; Location: [facility]; Service: Urology KIDNEY STONE SURGERY 10/31/2019 OTHER SURGICAL HISTORY wisdom teeth Patient Active Problem List Diagnosis Intractable nausea and vomiting IBS (irritable colon syndrome) Pelvic pain in female Social History Social History Tobacco Use Smoking status: Current Every Day Smoker Packs/day: 0.00 Types: Cigarettes Smokeless tobacco: Never Used Vaping Use Vaping Use: Every day Substances: Nicotine, THC Substance Use Topics Alcohol use: Yes Drug use: Yes Types: Marijuana Family History Family History Problem Relation Age of Onset Hypertension Mother Hypertension Maternal Grandfather Objective Physical Exam BP 124/84 Pulse (!) 107 Temp 100.1 F (37.8 C) (Tympanic) Resp 16 Ht 5' Wt 53.2 kg (117 lb3.2 oz) LMP 04/08/2021 SpO2 98% BMI 22.89 kg/m Vision/Hearing Exam:No exam data present Physical Exam Vitals and nursing note reviewed. Constitutional: General: She is not in acute distress. Appearance: Normal appearance. She is not ill-appearing, toxic-appearing or diaphoretic. HENT: Head: Normocephalic and atraumatic. Mouth/Throat: Mouth: Mucous membranes are moist. Pharynx: Oropharynx is clear. Cardiovascular: Rate and Rhythm: Regular rhythm. Tachycardia present. Pulses: Normal pulses. Pulmonary: Effort: Pulmonary effort is normal. Abdominal: General: There is no distension. Palpations: Abdomen is soft. Tenderness: There is abdominal tenderness. There is no right CVA tenderness, left CVA tenderness, guarding or rebound. Hernia: No hernia is present. Comments: Point tenderness over three soft small subdermal nodular lesions palpated - possible lipoma. Musculoskeletal: General: No swelling. Normal range of motion. Right lower leg: No edema. Left lower leg: No edema. Skin: General: Skin is warm and dry. Comments: Normal turgor. Neurological: Mental Status: She is alert and oriented to person, place, and time. Motor: No weakness. Gait: Gait normal. Psychiatric: Mood and Affect: Mood normal. Behavior: Behavior normal. Procedure Notes Procedures Results Recent Results (from the past 168 hour(s)) POC Urinalysis Dipstick,Auto UC Collection Time: 05/22/21 6:16 PM Result Value Ref Range POC Color, Urine Yellow Yellow, Light Yellow, Dark Yellow Clarity, UA Clear Clear Glucose, UA Negative Normal, Negative mg/dL Bilirubin, UA Negative Negative Ketones, UA Negative Negative mg/dL Spec Grav, UA 1.030 (A) 1.005 - 1.025 Blood, UA Moderate (A) Negative pH, UA 6.5 5.0 - 7.0 Protein, UA 100 (A) Negative mg/dL Urobilinogen, UA 0.2 <2.0, 0.2, Normal, Negative, 1.0, 2.0, <1.0 mg/dL Nitrite, UA Negative Negative Leukocyte Esterase, UA Negative Negative POC , Urine Collection Time: 05/22/21 6:18 PM Result Value Ref Range POC Preg Test, Ur Negative Negative Internal Control Pass No orders to display Orders Placed This Visit Orders Placed This Encounter Procedures POC Urinalysis Dipstick,Auto UC POC , Urine Medication List At End Of Visit Current Outpatient Medications Medication Sig Dispense Refill ARIPiprazole ER (ABILIFY MAINTENA) 300 mg SERR Inject 10 mg into the shoulder, thigh, or buttocks . cholecalciferol, vitamin D3, (VITAMIN D3 ORAL) Take 1 tablet by mouth daily . ARIPiprazole (ABILIFY) 5 MG tablet Take 10 mg by mouth nightly . benztropine (COGENTIN) 0.5 MG tablet Take 0.5 mg by mouth every evening . dicyclomine (BENTYL) 10 MG capsule Take 1 (one) capsule (10 mg total) by mouth 3 (three) times a day as needed . (Patient not taking: Reported on 05/22/2021 .) 10 capsule 0 dicyclomine (BENTYL) 20 mg tablet Take 1 (one) tablet (20 mg total) by mouth 3 (three) times a day as needed . (Patient not taking: No sig reported) 15 tablet 0 fluconazole (Diflucan) 150 MG tablet Take 1 (one) tablet (150 mg total) by mouth once as needed (may repeat in 3 days) . (Patient not taking: Reported on 05/22/2021 .) 2 tablet 1 metoclopramide (REGLAN) 5 MG tablet Take 1 (one) tablet (5 mg total) by mouth 3 (three) times a daybefore meals . (Patient not taking: Reported on 09/22/2020 .) 90 tablet 0 metroNIDAZOLE (METROGEL) 0.75 % vaginal gel Insert into the vagina nightly . (Patient not taking: No sig reported) 70 g 0 ondansetron (Zofran ODT) 4 MG disintegrating tablet Dissolve 1 (one) tablet (4 mg total) on top of tongue every 8 (eight) hours as needed . (Patient not taking: No sig reported) 12 tablet 0 No current facility-administered medications for this visit. Patient Instructions Take Zofran you have at home as directed for nausea. Small amounts of clear liquids (water, Gatorade) every half hour when awake. Follow up with your primary care physician to discuss further workup for protein in your urine and further evaluation of the tender masses in your left abdomen. documented in this [id number] Instructions* Patient Instructions* Dipti Cota PA-C - 05/22/2021 7:19 PM EDT Take Zofran you have at home as directed for nausea. Small amounts of clear liquids (water, Gatorade) every half hour when awake. Follow up with your primary care physician to discuss further workup for protein in your urine and further evaluation of the tender masses in your left abdomen. * Attachments The following attachments cannot be sent through Care Everywhere. * Nausea and Vomiting (Surinamese) documented in this [id number] History of Present illness Narrative* Kyle Irvin MD - 02/01/2021 2:27 PM EST Patient call last night stating she had another urinalysis that had concerning findings. She has been to the ER 4 times this week and is worried about the urinalysis. She requested Dr. Zuñiga place a consult to nephrology to evaluate the protein in her urine. documented in this [id number] History of Present illness Narrative* Kyle Irvin MD - 01/27/2021 9:53 PM EST The patient called the after-hours line worried about protein seen in her urine while at [facility]. Based on the level she described, I told her it was safe to monitor and if it was elevated any further her primary care could refer her to a cardiac nurse practitioner. I do not think this is related to the bilateral flank pain she is having chronically. documented in this [id number] [facility] Emergency department Note* Lucinda Dickens RN - 08/26/2020 2:13 AM EDT Patient ambulates to exit, normal steady gait, skin warm pink and dry. Patient alert and oriented at discharge. No concerns discussed at departure. * Mikal Villatoro RN - 08/26/2020 1:54 AM EDT US guided PIV placed per this RN x's 1 attempt after multiple failed attempts by staff. Able to visualize cath tip in lumen and advance until catheter is fully inserted while maintaining constant visualization of the cath tip within the vessel lumen. Positive blood return. PIV flushed with 20ml NS and secured per protocol. Flushed with an additional 10ml NS after securing. Pt made aware to notifyRN immediately for any pain/swelling to area of IV placement and verbalized understanding. Pt tolerated well. * Dharmesh Urbina DO - 08/26/2020 1:25 AM EDT ED PROVIDER NOTE [facility] NAME: Luli Johnson AGE: 29 y.o. : 1990 VISIT DATE: 08/26/2020 CSN: [id number] PCP: Mercedez Cotto CNP Chief Complaint Patient presents with Abdominal Pain multiple complaints HPI 29-year-old female to the emergency department for evaluation of nausea and vomiting. Patient states that she has been having chronic abdominal pain with nausea and vomiting. States that her abdomen feels distended. She is denying any diarrhea. States that she had a normal bowel movement today. Sheis denying any urinary symptoms. Patient states she has been evaluated most recently 4 days ago at [facility] and did have advanced imaging which was unremarkable. She is denying any chest pain or shortness of breath. She does have a history of irritable bowel. 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 Seen on Pituitary MRI - pituitary size normal Vasovagal syncope Past Surgical History: Procedure Laterality Date CHOLECYSTECTOMY COLONOSCOPY CYSTO MAGGI LASER, RETRO, URETEROSCOPY, STENT (USUAL) Right 10/31/2019 Procedure: CYSTOSCOPY,RIGHT RETROGRADE PYELOGRAM, RIGHT URETEROSOCPY,; basket stone extraction RIGHT URETERAL STENT PLACEMENT; Surgeon: Yan Zuñiga MD; Location: [facility] Main OR; Service: Urology CYSTO RETRO STONE MANIPULATION STENT INSERTION Right 11/05/2019 Procedure: CYSTOSCOPY WITH RIGHT STENT REMOVAL; Surgeon: Yan Zuñiga MD; Location: [facility]; Service: Urology KIDNEY STONE SURGERY 10/31/2019 OTHER SURGICAL HISTORY wisdom teeth Family History Problem Relation Age of Onset Hypertension Mother Hypertension Maternal Grandfather Social History Socioeconomic History Marital status: Single Spouse name: Not on file Number of children: Not on file Years of education: Not on file Highest education level: Not on file Occupational History Not on file Tobacco Use Smoking status: Never Smoker Smokeless tobacco: Never Used Vaping Use Vaping Use: Never used Substance and Sexual Activity Alcohol use: No Drug use: No Sexual activity: Yes Partners: Male Other Topics Concern Not on file Social History Narrative Not on file Social Determinants of Health Financial Resource Strain: Difficulty of Paying Living Expenses: Food Insecurity: Worried About Running Out of Food in the Last Year: Ran Out of Food in the Last Year: Transportation Needs: Lack of Transportation (Medical): Lack of Transportation (Non-Medical): Physical Activity: Days of Exercise per Week: Minutes of Exercise per Session: Stress: Feeling of Stress : Social Connections: Frequency of Communication with Friends and Family: Frequency of Social Gatherings with Friends and Family: Attends Yarsani Services: Active Member of Clubs or Organizations: Attends Club or Organization Meetings: Marital Status: Previous Medications Medication Sig ARIPiprazole (ABILIFY) 5 MG tablet Take 5 mg by mouth nightly . benztropine (COGENTIN) 0.5 MG tablet Take 0.5 mg by mouth every evening . cholecalciferol, vitamin D3, (VITAMIN D3 ORAL) Take 1 tablet by mouth daily . dicyclomine (BENTYL) 20 mg tablet Take 1 (one) tablet (20 mg total) by mouth 3 (three) times a day as needed . metoclopramide (REGLAN) 5 MG tablet Take 1 (one) tablet (5 mg total) by mouth 3 (three) times a daybefore meals . ondansetron (Zofran ODT) 4 MG disintegrating tablet Dissolve 1 (one) tablet (4 mg total) on top of tongue every 8 (eight) hours as needed . Allergies Allergen Reactions Cat Dander Shortness Of Breath Ciprofloxacin-Hydrocortisone Swelling Tree Nuts Shortness Of Breath All tree nuts Sulfasalazine Ciprofloxacin Rash and Hives Diphenhydramine Swelling, Hives and Rash Diphenhydramine Hcl Rash and Hives Hydrocortisone Rash and Hives Sulfa (Sulfonamide Antibiotics) Rash and Hives Sulfamethoxazole-Trimethoprim Rash and Hives Review of Systems Constitutional: Negative for unexpected weight change. HENT: Negative for voice change. Eyes: Negative for itching. Respiratory: Negative for choking. Gastrointestinal: Negative for rectal pain. Endocrine: Negative for polyphagia. Skin: Negative for color change. Allergic/Immunologic: Negative for immunocompromised state. Neurological: Negative for facial asymmetry. Hematological: Does not bruise/bleed easily. Psychiatric/Behavioral: Negative for self-injury. Patient Vitals for the past 24 hrs: BP Temp Temp src Pulse Resp SpO2 Height Weight 08/26/20 0200 116/79 100 % 08/26/20 0037 (!) 134/95 98 F (36.7 C) Oral 89 18 100 % 5' 56.5 kg (124 lb 9 oz) Physical Exam Constitutional: Appearance: She is well-developed. HENT: Head: Normocephalic and atraumatic. Mouth/Throat: Mouth: Mucous membranes are dry. Pharynx: Oropharynx is clear. Eyes: Extraocular Movements: Extraocular movements intact. Conjunctiva/sclera: Conjunctivae normal. Cardiovascular: Rate and Rhythm: Normal rate and regular rhythm. Pulses: Normal pulses. Heart sounds: Normal heart sounds. Pulmonary: Effort: Pulmonary effort is normal. Breath sounds: Normal breath sounds. Abdominal: General: There is no distension. Tenderness: There is no abdominal tenderness. Musculoskeletal: General: Normal range of motion. Cervical back: Normal range of motion and neck supple. Skin: General: Skin is warm. Capillary Refill: Capillary refill takes less than 2 seconds. Neurological: General: No focal deficit present. Mental Status: She is alert and oriented to person, place, and time. Psychiatric: Mood and Affect: Mood normal. Behavior: Behavior normal. Laboratory & Radiographic Imaging (if done): Results for orders placed or performed during the hospital encounter of 08/26/20 Urinalysis Result Value Ref Range Color, Urine Yellow Colorless, Yellow Clarity, Urine Hazy (A) Clear Specific [place] 1.023 1.005 - 1.025 pH, Urine 5.0 5.0 - 7.0 Protein, Urine Negative Negative mg/dL Glucose, Urine Negative Negative mg/dL Ketones, Urine Negative Negative mg/dL Bilirubin, Urine Negative Negative Urobilinogen, Urine <2.0 <2.0 mg/dL Blood, Urine Moderate (A) Negative Nitrite, Urine Negative Negative Leukocyte Esterase, Urine Negative Negative WBCs, Urine 2 0 - 5 /hpf RBCs, Urine 1 0 - 3 /hpf Bacteria, Urine Rare (A) None Seen /hpf Squamous Epithelial 3 0 - 4 /hpf CBC Auto Differential Result Value Ref Range WBC 6.71 4.50 - 11.00 K/mcL RBC 4.82 4.00 - 5.20 M/mcL Hemoglobin 13.5 12.0 - 16.0 g/dL Hematocrit 41.0 36.0 - 46.0 % MCV 85.1 80.0 - 100.0 fL MCH 28.0 26.0 - 34.0 pg MCHC 32.9 31.0 - 37.0 g/dL Platelets 220 150 - 400 K/mcL RDW - CV 13.0 11.6 - 14.8 % MPV 9.3 (L) 9.4 - 12.4 fL Neutrophils 66.1 % Lymphocytes 25.6 % Monocytes 6.0 % Eosinophils 1.3 % Basophils 0.6 % IG Percent 0.40 % Neutrophils Abs 4.43 1.70 - 7.00 K/mcL Lymphocytes Abs 1.72 0.90 - 4.00 K/mcL Monocytes Abs 0.40 0.30 - 0.90 K/mcL Eosinophils Abs 0.09 0.00 - 0.50 K/mcL Basophils Abs 0.04 0.00 - 0.30 K/mcL IG Absolute 0.03 0.00 - 0.30 K/mcL Nucleated RBC 0.0 % Nucleated RBC Abs 0.00 0.00 - 0.00 K/mcL XR Abdomen 2 Views With Chest 1 View (Results Pending) Procedures MDM I was notified by nursing that the patient had a child who was not feeling well at home and that she had to leave. She did not want to stay in the emergency department any longer. Laboratory test resulted back at this point include a CBC which showed a normal white count. Patient did have 2 CT scans of the abdomen in the last 2 weeks which were unremarkable. Last uric continue her Bentyl. Her abdomen is otherwise benign. Patient had to leave the emergency department prior to completion of work-up. She was given instructions to return to the ER ER should her symptoms continue . . Clinical Impression: 1. Generalized abdominal pain ED Disposition ED Disposition Condition Comment Discharge Stable Luli Johnson discharged to home/self care in stable condition. Follow-up Information 1. Mercedez Cotto, LAWANDA. Specialties: Internal Medicine, Nurse Practitioner Why: As needed, If symptoms worsen [id number] [facility] [id number] Contact information for after-discharge care Follow-up information has not been specified. New Prescriptions dicyclomine (BENTYL) 10 MG capsule Take 1 (one) capsule (10 mg total) by mouth 3 (three) times a day as needed . Dharmesh Urbina, 08/26/20209 Dharmesh Urbina, 08/26/20211 * Erik Delcid, MILTON - 08/26/2020 12:43 AM EDT Pt here for n/v and abdominal pain. Pt states she also has back pain but does have a known c5, c6 cervical spine disease. Pt states she has had a bm today and it wad a long log and then a couple smaller pieces. Pt states she has vomited 3-5 times today. Pt states this is the same thing she was seen for on 08/22 at [facility]. * Alhaji Mcbride, EMT - 08/26/2020 12:40 AM EDT Urine cup provided. Pt attempting to provide sample at this time. documented in this [id number] Emergency department Note* Joseluis Hathaway RN - 08/23/2020 1:09 AM EDT Pt refuses new iv insertion, states I don't think I want poked again. I am just ready to go home.Dr. Marcano notified. * Joseluis Hathaway RN - 08/22/2020 11:56 PM EDT This Rn attempts PO fluid challenge, pt states I don't want to do that yet. I just don't think it's time for that. * Cory Patel MD - 08/22/2020 9:43 PM EDT ED PROVIDER NOTE [facility] EMERGENCY DEPART[facility] NAME: Luli Johnson AGE: 29 y.o. : 1990 VISIT DATE: 08/22/2020 CSN: [id number] PCP: Mercedez Cotto CNP Chief Complaint Patient presents with Abdominal Pain Back Pain Nausea Emesis Ms. Johnson is a 29-year-old female who presents here with abdominal pain, bilateral flank pain, and persistent nausea and vomiting. She has had multiple instances of this before, says that she is very difficult to control with her nausea and vomiting, and almost no medication works for her. She also reports a prior history of kidney stones, most recently at the end of 2019 had to have a kidney stone removed. She reports yesterday she felt fine, and today she has had diffuse abdominal discomfort as well as bilateral flank discomfort, and persistent nausea and vomiting to the point where she is not able to keep anything down. She has a history of IBS-C and has had a cholecystectomy before. Reports this episode is particularly bad. She does report some urinary frequency, but no dysuria, and admits to dizziness. 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 Seen on Pituitary MRI - pituitary size normal Vasovagal syncope Past Surgical History: Procedure Laterality Date CHOLECYSTECTOMY COLONOSCOPY CYSTO MAGGI LASER, RETRO, URETEROSCOPY, STENT (USUAL) Right 10/31/2019 Procedure: CYSTOSCOPY,RIGHT RETROGRADE PYELOGRAM, RIGHT URETEROSOCPY,; basket stone extraction RIGHT URETERAL STENT PLACEMENT; Surgeon: Yan Zuñiga MD; Location: [facility] Main OR; Service: Urology CYSTO RETRO STONE MANIPULATION STENT INSERTION Right 11/05/2019 Procedure: CYSTOSCOPY WITH RIGHT STENT REMOVAL; Surgeon: Yan Zuñiga MD; Location: [facility]; Service: Urology KIDNEY STONE SURGERY 10/31/2019 OTHER SURGICAL HISTORY wisdom teeth Family History Problem Relation Age of Onset Hypertension Mother Hypertension Maternal Grandfather Social History Socioeconomic History Marital status: Single Spouse name: Not on file Number of children: Not on file Years of education: Not on file Highest education level: Not on file Occupational History Not on file Tobacco Use Smoking status: Never Smoker Smokeless tobacco: Never Used Vaping Use Vaping Use: Never used Substance and Sexual Activity Alcohol use: No Drug use: No Sexual activity: Yes Partners: Male Other Topics Concern Not on file Social History Narrative Not on file Social Determinants of Health Financial Resource Strain: Difficulty of Paying Living Expenses: Food Insecurity: Worried About Running Out of Food in the Last Year: Ran Out of Food in the Last Year: Transportation Needs: Lack of Transportation (Medical): Lack of Transportation (Non-Medical): Physical Activity: Days of Exercise per Week: Minutes of Exercise per Session: Stress: Feeling of Stress : Social Connections: Frequency of Communication with Friends and Family: Frequency of Social Gatherings with Friends and Family: Attends Yarsani Services: Active Member of Clubs or Organizations: Attends Club or Organization Meetings: Marital Status: Previous Medications Medication Sig ARIPiprazole (ABILIFY) 5 MG tablet Take 5 mg by mouth nightly . ascorbate calcium (VITAMIN C ORAL) Take 1 tablet by mouth daily . benztropine (COGENTIN) 0.5 MG tablet Take 0.5 mg by mouth every evening . cholecalciferol, vitamin D3, (VITAMIN D3 ORAL) Take 1 tablet by mouth daily . dicyclomine (BENTYL) 20 mg tablet Take 1 (one) tablet (20 mg total) by mouth 3 (three) times a day as needed . [id number]-gvtb-UG-calcium-mins 9 mg iron-400 mcg Tab Take 1 tablet by mouth daily . ondansetron (Zofran ODT) 4 MG disintegrating tablet Dissolve 1 (one) tablet (4 mg total) on top of tongue every 8 (eight) hours as needed . Allergies Allergen Reactions Cat Dander Shortness Of Breath Ciprofloxacin-Hydrocortisone Swelling Tree Nuts Shortness Of Breath All tree nuts Sulfasalazine Ciprofloxacin Rash and Hives Diphenhydramine Swelling, Hives and Rash Diphenhydramine Hcl Rash and Hives Hydrocortisone Rash and Hives Sulfa (Sulfonamide Antibiotics) Rash and Hives Sulfamethoxazole-Trimethoprim Rash and Hives Review of Systems Constitutional: Negative for chills and fever. HENT: Negative for congestion and sore throat. Eyes: Negative for pain and visual disturbance. Respiratory: Negative for cough and shortness of breath. Cardiovascular: Negative for chest pain and leg swelling. Gastrointestinal: Positive for abdominal pain, nausea and vomiting. Genitourinary: Positive for flank pain and frequency. Negative for dysuria. Musculoskeletal: Negative for back pain and joint swelling. Skin: Negative for rash and wound. Neurological: Positive for dizziness. Negative for headaches. All other systems reviewed and are negative. Patient Vitals for the past 24 hrs: BP Temp Temp src Pulse Resp SpO2 Height Weight 08/22/20 2210 122/74 (!) 115 18 100 % 08/22/20 1853 133/86 98.2 F (36.8 C) Oral (!) 104 16 100 % 5' 55.5 kg (122 lb 6.4 oz) Physical Exam Vitals and nursing note reviewed. Constitutional: General: She is not in acute distress. Appearance: She is well-developed. Comments: Vomitus in bag by her side Eyes: Pupils: Pupils are equal, round, and reactive to light. Neck: Trachea: No tracheal deviation. Cardiovascular: Rate and Rhythm: Normal rate and regular rhythm. Pulmonary: Effort: Pulmonary effort is normal. Breath sounds: Normal breath sounds. Abdominal: Palpations: Abdomen is soft. Tenderness: There is abdominal tenderness (very mildly diffusely tender). There is left CVA tenderness. There is no right CVA tenderness. Musculoskeletal: General: No tenderness or deformity. Cervical back: Neck supple. Skin: General: Skin is warm and dry. Neurological: Mental Status: She is alert and oriented to person, place, and time. Laboratory & Radiographic Imaging (if done): Results for orders placed or performed during the hospital encounter of 08/22/20 BMP Result Value Ref Range Sodium 142 135 - 145 mmol/L Potassium 3.3 (L) 3.5 - 5.1 mmol/L Chloride 105 98 - 108 mmol/L Bicarbonate 26 21 - 32 mmol/L Anion Gap 14 10 - 20 mmol/L Glucose 87 65 - 99 mg/dL BUN 11 8 - 25 mg/dL Creatinine 0.61 0.40 - 1.10 mg/dL eGFR 123 >=60 mL/min/1.73 m2 BUN/Creatinine Ratio 18.0 10.0 - 20.0 Calcium 9.6 8.4 - 10.2 mg/dL Hepatic Function Panel (LFT) Result Value Ref Range Total Protein 7.8 6.0 - 8.0 g/dL Albumin 4.5 3.2 - 5.2 g/dL Total Bilirubin 0.3 0.0 - 1.3 mg/dL Bilirubin, Direct <0.1 0.0 - 0.4 mg/dL Alkaline Phosphatase 50 40 - 140 U/L AST 17 0 - 45 U/L ALT 17 0 - 40 U/L Lipase Result Value Ref Range Lipase 34 15 - 65 U/L Urinalysis Result Value Ref Range Color, Urine Yellow Colorless, Yellow Clarity, Urine Clear Clear Specific [place] 1.025 1.005 - 1.025 pH, Urine 8.0 (H) 5.0 - 7.0 Protein, Urine 30 (A) Negative mg/dL Glucose, Urine Negative Negative mg/dL Ketones, Urine Negative Negative mg/dL Bilirubin, Urine Negative Negative Urobilinogen, Urine <2.0 <2.0 mg/dL Blood, Urine Negative Negative Nitrite, Urine Negative Negative Leukocyte Esterase, Urine Negative Negative WBCs, Urine 3 0 - 5 /hpf Bacteria, Urine Rare (A) None Seen /hpf Squamous Epithelial 7 (H) 0 - 4 /hpf Amorphous Crystals Few (A) None Seen, Rare /hpf Mucus, Urine Rare None Seen, Rare /lpf HCG (QUALITATIVE) Result Value Ref Range Beta-hCG Qual Negative Negative Gold Top Result Value Ref Range Extra Tube Hold for add-ons. Rush Top Result Value Ref Range Extra Tube Hold for add-ons. CBC Auto Differential Result Value Ref Range WBC 6.72 4.50 - 11.00 K/mcL RBC 4.45 4.00 - 5.20 M/mcL Hemoglobin 12.6 12.0 - 16.0 g/dL Hematocrit 37.7 36.0 - 46.0 % MCV 84.7 80.0 - 100.0 fL MCH 28.3 26.0 - 34.0 pg MCHC 33.4 31.0 - 37.0 g/dL Platelets 227 150 - 400 K/mcL RDW - CV 13.2 11.6 - 14.8 % MPV 9.8 9.4 - 12.4 fL Neutrophils 57.5 % Lymphocytes 30.8 % Monocytes 9.4 % Eosinophils 1.6 % Basophils 0.6 % IG Percent 0.10 % Neutrophils Abs 3.86 1.70 - 7.00 K/mcL Lymphocytes Abs 2.07 0.90 - 4.00 K/mcL Monocytes Abs 0.63 0.30 - 0.90 K/mcL Eosinophils Abs 0.11 0.00 - 0.50 K/mcL Basophils Abs 0.04 0.00 - 0.30 K/mcL IG Absolute 0.01 0.00 - 0.30 K/mcL Nucleated RBC 0.0 % Nucleated RBC Abs 0.00 0.00 - 0.00 K/mcL CT Kidney Stone Final Result 1. No urinary tract calculi or obstructive uropathy. 2. Unremarkable bowel. 3. Suspect 1.8 cm cyst/dominant follicle within the right ovary of questionable clinical significance. Workstation ID: [id number] Procedures MDM Number of Diagnoses or Management Options Abdominal pain, unspecified abdominal location Intractable vomiting with nausea, unspecified vomiting type Diagnosis management comments: She is onDiscussed with the patient that although she has had many CT scans before, she says this episode is particularly bad and she has had persistent nausea vomiting, does have a history of kidney stones as well as an ileus, so therefore a CAT scan would likely be necessary. We will try to treat her pain with some morphine and also give her some Zofran, though t hat may not work, we may have to try other medications for her nausea and vomiting. Patient got 2 doses of morphine for her pain, which was uncontrolled after the first dose. I did after the Zofran, and was given Reglan without Benadryl given her allergy. She has now refused her p.o. challenge, still feels too nauseated, therefore we will bring her in for persistent nausea and vomiting. . Clinical Impression: 1. Intractable vomiting with nausea, unspecified vomiting type 2. Abdominal pain, unspecified abdominal location ED Disposition ED Disposition Condition Comment Hospitalize Attending Provider or Group: [facility] [[id number]] Phone call required?: No Follow-up Information Follow-up information has not been specified. Contact information for after-discharge care Follow-up information has not been specified. Cory Patel MD 08/22/20 [id number] * Corrine Cote RN - 08/22/2020 6:48 PM EDT Pt arrived to triage with c/o abd pain with nausea and vomiting and back pain that started 1 week ago documented in this [id number] Emergency department Note* Jakub Griffin Jr., DO - 08/09/2020 1:03 AM EDT PCP - Mercedez Cotto, GARAGE LABORER Chief Complaint Patient presents with Abdominal Pain HPI Patient presents emerged department for evaluation of abdominal pain. Patient has a longstanding history is of abdominal pain. This is a bit different. She points to the left side of her abdomen is location of the pain. Said it was gradual onset started yesterday afternoon is been constant. Goes starts in the left lower abdomen and encounter moves over to the right. She has her pain is severe. Nothing seem to make it worse or better she describes it as a sharp stabbing pain. Last normal menstrual cycle patient reports to finishing it now. She denies any fevers or chills. She denies dysuria but does report some frequency with urination. Patient has no other significant complaints currently. I spoke with her about her numerous abdominal work-ups and pain and she says this is just a bit different than those with a sharp stabbing component to it. Review of Systems Constitutional: no fevers Skin: no color changes Eyes: no discharge ENMT: No drooling Respiratory: no stridor Genitourinary: No dysuria Endocrine: No polyuria Neurologic: No new face asymetry Psychiatric: No self injury Hematologic/Lymphatic: No new easy bruising Allergic/Immunologic: no urticaria Past Medical History Past Medical History: Diagnosis Date ADD (attention deficit disorder) Alopecia Alopecia areata Anxiety with depression Cervical spine degeneration Eczema Hypotension Irritable bowel syndrome with constipation Kidney stone Lordosis of cervicothoracic region Neoplasm of pituitary gland Preeclampsia Vasovagal syncope Past Surgical History Past Surgical History: Procedure Laterality Date CHOLECYSTECTOMY COLONOSCOPY CYSTO MAGGI LASER, RETRO, URETEROSCOPY, STENT (USUAL) Right 10/31/2019 Procedure: CYSTOSCOPY,RIGHT RETROGRADE PYELOGRAM, RIGHT URETEROSOCPY,; basket stone extraction RIGHT URETERAL STENT PLACEMENT; Surgeon: Yan Zuñiga MD; Location: [facility] OR; Service: Urology CYSTO RETRO STONE MANIPULATION STENT INSERTION Right 11/05/2019 Procedure: CYSTOSCOPY WITH RIGHT STENT REMOVAL; Surgeon: Yan Zuñiga MD; Location: [facility]; Service: Urology KIDNEY STONE SURGERY 10/31/2019 OTHER SURGICAL HISTORY wisdom teeth Family History Family History Problem Relation Age of Onset Hypertension Mother Hypertension Maternal Grandfather Social History Social History Socioeconomic History Marital status: Single Spouse name: Not on file Number of children: Not on file Years of education: Not on file Highest education level: Not on file Occupational History Not on file Tobacco Use Smoking status: Never Smoker Smokeless tobacco: Never Used Vaping Use Vaping Use: Never used Substance and Sexual Activity Alcohol use: No Drug use: No Sexual activity: Yes Partners: Male Other Topics Concern Not on file Social History Narrative Not on file Social Determinants of Health Financial Resource Strain: Difficulty of Paying Living Expenses: Food Insecurity: Worried About Running Out of Food in the Last Year: Ran Out of Food in the Last Year: Transportation Needs: Lack of Transportation (Medical): Lack of Transportation (Non-Medical): Physical Activity: Days of Exercise per Week: Minutes of Exercise per Session: Stress: Feeling of Stress : Social Connections: Frequency of Communication with Friends and Family: Frequency of Social Gatherings with Friends and Family: Attends [employer]arsani Services: Active Member of Clubs or Organizations: Attends Club or Organization Meetings: Marital Status: Allergies Allergies Allergen Reactions Cat Dander Shortness Of Breath Ciprofloxacin-Hydrocortisone Swelling Tree Nuts Shortness Of Breath All tree nuts Sulfasalazine Ciprofloxacin Rash and Hives Diphenhydramine Swelling, Hives and Rash Diphenhydramine Hcl Rash and Hives Hydrocortisone Rash and Hives Sulfa (Sulfonamide Antibiotics) Rash and Hives Sulfamethoxazole-Trimethoprim Rash and Hives Medications Luli Johnson Home Medication Instructions Prior to Surgery SARITHA:[id number] Printed on:08/09/20 0304 Medication Information Take last dose on Take the morning of surgery Comment(s) ARIPiprazole (ABILIFY) 5 MG tablet Take 5 mg by mouth nightly . ascorbate calcium (VITAMIN C ORAL) Take 1 tablet by mouth daily . benztropine (COGENTIN) 0.5 MG tablet Take 0.5 mg by mouth every evening . cholecalciferol, vitamin D3, (VITAMIN D3 ORAL) Take 1 tablet by mouth daily . diclofenac sodium (VOLTAREN) 75 MG EC tablet Take 1 (one) tablet (75 mg total) by mouth 2 (two) times a day with meals for 10 doses . dicyclomine (BENTYL) 20 mg tablet Take 1 (one) tablet (20 mg total) by mouth 3 (three) times a day as needed . vvszqfru-fuve-JE-calcium-mins 9 mg iron-400 mcg Tab Take 1 tablet by mouth daily . ondansetron (Zofran ODT) 4 MG disintegrating tablet Dissolve 1 (one) tablet (4 mg total) on top of tongue every 8 (eight) hours as needed . Physical Exam Initial Vital Signs BP 122/86 (BP Location: Right arm, Patient Position: Sitting) Pulse 82 Temp 98.3 F (36.8 C) (Oral) Resp 16 Ht 5' Wt 54.4 kg (120 lb) LMP 08/06/2020 SpO2 100% BMI 23.44 kg/m Vital Signs During ED Visit (as charted by nursing) Patient Vitals for the past 24 hrs: BP Temp Temp src Pulse Resp SpO2 Height Weight 08/09/20 0040 122/86 98.3 F (36.8 C) Oral 82 16 100 % 5' 54.4 kg (120 lb) Physical Exam Vitals and nursing note reviewed. Exam conducted with a hair boiler operator present. Constitutional: General: She is awake. She is not in acute distress. Appearance: She is well-developed. She is not ill-appearing, toxic-appearing or diaphoretic. HENT: Head: Normocephalic and atraumatic. Right Ear: External ear normal. Left Ear: External ear normal. Nose: Nose normal. Eyes: Extraocular Movements: Extraocular movements intact. Conjunctiva/sclera: Conjunctivae normal. Neck: Vascular: No JVD. Cardiovascular: Rate and Rhythm: Normal rate and regular rhythm. Heart sounds: Normal heart sounds. No murmur heard. No friction rub. No gallop. Pulmonary: Effort: Pulmonary effort is normal. No respiratory distress. Breath sounds: Normal breath sounds. No stridor. No wheezing, rhonchi or rales. Abdominal: General: There is no distension. Palpations: Abdomen is soft. Tenderness: There is abdominal tenderness (LLQ). There is no guarding or rebound. Musculoskeletal: General: No deformity. Cervical back: Neck supple. Skin: General: Skin is warm and dry. Neurological: General: No focal deficit present. Mental Status: She is alert. Cranial Nerves: No cranial nerve deficit. Psychiatric: Behavior: Behavior normal. Behavior is cooperative. IMPRESSION 1. Abdominal pain in female patient MEDICAL DECISION MAKING Patient remained stable in the emergency department. Her urinalysis did have large amount of blood but she is on her menstrual cycle. hCG was not elevated basic metabolic panel reviewed lipase was normal hepatic panel is normal lactate is normal CBC was reviewed CT scan shows no acute abnormalities. Patient be discharged in stable condition instructed to follow-up with her primary care physician and GI specialist. I see no acute life threat going on in this patient. Labs Reviewed URINALYSIS - Abnormal; Notable for the following components: Result Value Protein, Urine 100 (*) Blood, Urine Large (*) RBCs, Urine 85 (*) All other components within normal limits Narrative: Microscopic examination is performed on all urinalysis samples and only positive findings are reported. The test for blood on the chemical analytic portion of urinalysis may also be positive due to hemoglobinuria and myoglobinuria and if red blood cells are present they are quantified by microscopic examination. BASIC METABOLIC PANEL - Abnormal; Notable for the following components: BUN/Creatinine Ratio 25.0 (*) All other components within normal limits Narrative: The eGFR should be used for monitoring renal function only and not for medication dosing. CBC WITH AUTO DIFFERENTIAL - Abnormal; Notable for the following components: Hemoglobin 11.6 (*) Hematocrit 35.2 (*) MPV 9.3 (*) All other components within normal limits HEPATIC FUNCTION PANEL - Normal LIPASE - Normal LACTIC ACID, PLASMA - Normal HCG, BLOOD, QUANTITATIVE - Normal Narrative: Males and non females: <5 mIU/mL Females during : 3-4 weeks 9-130 mIU/mL 4-5 weeks 75-2600 mIU/mL 5-6 weeks 850-20,800 mIU/mL 6-7 weeks 4000-100,200 mIU/mL 7-12 weeks 11,500-289,000 mIU/mL 12-16 weeks 18,300-137,000 mIU/mL 16-29 weeks 1,400-53,000 mIU/mL 29-41 weeks 940-60,000 mIU/mL CBC AND DIFFERENTIAL Narrative: The following orders were created for panel order CBC w/ Diff. Procedure Abnormality Status --------- ------ CBC Auto Differential[[id number]] Abnormal Final result Please view results for these tests on the individual orders. Radiographic Imaging (if any) During ED Visit CT Abdomen Pelvis With IV Contrast Only Final Result Unremarkable contrast-enhanced CT abdomen and pelvis examination. Cholecystectomy. Workstation ID: [id number] Medications Ordered/Given During ED Visit Medications sodium chloride (PF) (NS) flush 5 mL (has no administration in time range) And sodium chloride 0.9% (NS) (has no administration in time range) sodium chloride (PF) (NS) 0.9 % contrast line flush 10 mL (10 mL Intravenous Given 08/09/20210) And sodium chloride (PF) (NS) 0.9 % contrast line flush 80 mL (80 mL Intravenous Given 08/09/20210) And iopamidoL (ISOVUE-370) 76 % injection 75 mL (75 mL Intravenous Contrast Administered 08/09/20209) ondansetron (ZOFRAN) injection 4 mg (4 mg Intravenous Given 08/09/20202) ketorolac (TORADOL) injection 30 mg (30 mg Intravenous Given 08/09/20202) Procedures Jakub Griffin Jr., 08/09/20 0304 * Shanon Gil RN - 08/09/2020 12:46 AM EDT Pt resting on cart, no apparent distress or airway concerns. Pt is alert. Skin W/D/I. Breathing regular and unlabored. Lungs clear. Vitals stable. LLQ tender to palpation. No active emesis. Denies other concerns at this time * Shanon Gil RN - 08/09/2020 12:38 AM EDT Pt arrives with c/o abd pain, worse on the L side, which started last night and woke her from sleep. She states the pain remained constant throughout the day. PT states she has some nausea when the pain is severe but has not vomited. Denies diarrhea. Denies urinary symptoms. Well appearing on arrival, no visible dyspnea. No active emesis documented in this [id number] Miscellaneous Notes* Elen Note - Bev Christensen RN - 08/03/2020 3:26 PM EDT Pt is requesting to leave AMA stating I want to go to my grandmother's cookout. Pt was educated on the risks of leaving before medically ready and advised to stay until discharged. Pt voiced understanding of risks and is still adamant about leaving. Dr Burnham made aware. * Elen Note - Ronald Burnham MD - 08/03/2020 8:05 AM EDT Patient seen and examined at the bedside, admitted earlier by Dr. Ashley for intractable nausea/vomiting. She continues to complain of epigastric pain and nausea. Assessment/Plan: Luli Johnson is a 29 y.o. female patient of Mercedez Cotto CNP with history of alopecia, anxiety hypotension, vasovagal syncope, presented with nausea and vomiting Intractable Nausea and Vomiting Acute on chronic, multiple prior admissions and extensive GI and surgical workup S/P cholecystectomy without resolution of symptoms Recent gastric emptying study essentially normal Has previously followed with GI at [facility] (Dr Todd) but lost follow up recently. KUB with non-obstructive bowel gas pattern. Consider CT A/P, GI consult if pain does not improve in 24 hours. Supportive care with IV fluids, nausea/pain control. 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, previously documented asstable Recent normal Head CT on 07/03 Mood Disorder Unclear if might be contributing to symptomatology Follows with Dr Acevedo based on Abilifsrinivasa prescription Continue home Abilify and Cogentin * Plan of Care - Edin Baltazar RN - 08/03/2020 6:42 AM EDT Problem: Actual or potential alteration in health Goal: Absence of healthcare acquired conditions Outcome: Partially Met Goal: Knowledge of Interdisciplinary Plan of Care Outcome: Partially Met Goal: Knowledge of Enviroment Outcome: Partially Met Problem: Pain Goal: Manage acute pain Outcome: Partially Met Goal: Manage chronic pain Outcome: Partially Met Goal: Reduced pain sensation Outcome: Partially Met Goal: Achievement of comfort function goal Outcome: Partially Met Problem: Pressure Ulcer - Risk of Goal: Absence of pressure ulcer Outcome: Partially Met documented in this [id number] History and physical note* Burton Ashley DO - 08/03/2020 6:27 AM EDT [facility] [place] HISTORY AND PHYSICAL Patient Name: Luli Johnson : 1990 MR #: [id number] Admit Date: [id number] Physicians: Mercedez Cotto, LAWANDA (Family); No ref. provider found (Referring) Luli Johnson is a 29 y.o. female patient of Mercedez Cotto CNP with history of alopecia, anxiety hypotension, vasovagal syncope, presented with nausea and vomiting Intractable Nausea and Vomiting Acute on chronic, multiple prior admissions and extensive GI and surgical workup S/P garret without resolution of symptoms Recent gastric emptying study essentially normal Has previously followed with GI at [facility] (Dr Todd) Symptoms refractory to 16mg Zofran, Valium, and Dilaudid in the ED Continue PRN Zofran and IVF, add scopolamine 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 Her symptoms were refractory to several medications in the ED. She denies any new foods, recent travel, or known sick contacts. She has previously had cholecystectomy for her symptoms. She has also had upper and lower endoscopies. Most recently she has had an essentially-normal gastric emptying study. She admits to a mild component of lower abdominal discomfort. She statesthat over approximately the past day she has not been able to keep down even water. She is unusually interested in multiple specific details of her care, such as where her room will be and who will be transporting her to that room. She is additionally somewhat difficult to redirect from multiple additional nonacute complaints. She wishes to discuss her cervical lordosis, her prior minimally abnormal MRI, and wishes to know whether she will be seeing gastroenterology while admitted. Past Medical History Past Medical History: Diagnosis Date ADD (attention deficit disorder) Alopecia Alopecia areata Anxiety with depression Cervical spine degeneration Eczema Hypotension Irritable bowel syndrome with constipation Kidney stone Lordosis of cervicothoracic region Neoplasm of pituitary gland Preeclampsia Vasovagal syncope Past Surgical History Past Surgical History: Procedure Laterality Date CHOLECYSTECTOMY COLONOSCOPY CYSTO MAGGI LASER, RETRO, URETEROSCOPY, STENT (USUAL) Right 10/31/2019 Procedure: CYSTOSCOPY,RIGHT RETROGRADE PYELOGRAM, RIGHT URETEROSOCPY,; basket stone extraction RIGHT URETERAL STENT PLACEMENT; Surgeon: Yan Zuñiga MD; Location: [facility] Main OR; Service: Urology CYSTO RETRO STONE MANIPULATION STENT INSERTION Right 11/05/2019 Procedure: CYSTOSCOPY WITH RIGHT STENT REMOVAL; Surgeon: Yan Zuñiga MD; Location: [facility] [place]; Service: Urology KIDNEY STONE SURGERY 10/31/2019 OTHER SURGICAL HISTORY wisdom teeth Family History Family History Problem Relation Age of Onset Hypertension Mother Hypertension Maternal Grandfather Social History Social History Tobacco Use Smoking Status Never Smoker Smokeless Tobacco Never Used Social History Substance and Sexual Activity Alcohol Use No Social History Substance and Sexual Activity Drug Use No Allergy Information I have reviewed the patient's allergies. Cat dander, Ciprofloxacin-hydrocortisone, Tree nuts, Sulfasalazine, Ciprofloxacin, Diphenhydramine,Diphenhydramine hcl, Hydrocortisone, Sulfa (sulfonamide antibiotics), and Sulfamethoxazole-trimethoprim Home Medications Home medications were reviewed. Review Of Systems All systems have been reviewed and are negative except as noted in HPI or below Physical Examination BP 113/76 Pulse 95 Temp 98.6 F (37 C) (Oral) Resp 16 Ht 5' Wt 54.5 kg (120 lb 2.4 oz) SpO2 99% BMI 23.47 kg/m General Appearance: alert, nontoxic appearing, and in no apparent distress HEENT: Head- normocephalic; Eyes- PERRLA, EOMI; Ears- external auditory canals clear, hearing intact; Nose- no nasal discharge; Throat- oropharynx normal Cardiovascular: regular rate and rhythm; normal S1, S2; no murmurs, rubs, clicks or gallops; no peripheral edema Respiratory: lungs clear to auscultation; without wheezes, rales or rhonchi Abdomen: soft, mild lower abdominal tenderness to palpation without rebound or guarding, non-distended; positive bowel sounds Neurological: alert, oriented x 3, normal speech; no focal findings or movement disorder noted Musculoskeletal: no significant deformity or tenderness to palpation Skin: normal coloration, texture and turgor; no lesions or eruptions Psych: incongruent affect Laboratory and Additional Data Reviewed Laboratory 08/03/20 6:50 AM Radiology 08/03/20 6:50 AM Cardiology 08/03/20 6:50 AM Medications 08/03/20 6:50 AM Transcriptions 08/03/20 6:50 AM documented in this [id number] Emergency department Note* Paddy Castorena - 08/03/2020 3:44 AM EDT PCP - Mercedez Cotto, GARAGE LABORER Chief Complaint Patient presents with Back Pain HPI The patient is a 29-year-old female with past medical history of ADD, alopecia, anxiety and depression as well as kidney stones, pituitary gland neoplasm, who presents to [facility] emergency room for evaluation of exacerbation of her chronic back pain. The patient was recently seen on multiple occasions for the same complaint. She states that she has developed back pain. She has had multiple imaging of her spine which included x-rays and CTs. She has made an appointment with theine center at [facility]. Her appointment is upcoming. She reports thatrecently her pain has worsened. She also reports a few hours she developed headache. Headache is mild compared to her back pain. She reports that her back pain is 10 out of 10, constant, achy, spasm-like sensation. Denies any chest pain. No cough. No shortness of breath. She does report nausea and vomiting which is also a chronic problem for the patient. Denies any blood in the vomitus. No diarrhea. Her headache is certainly not the worst headache she has ever had. Denies any facial weakness ornumbness. No difficulty speaking or expressing herself. No fever or chills. No neck stiffness. Past Medical History Past Medical History: Diagnosis Date ADD (attention deficit disorder) Alopecia Alopecia areata Anxiety with depression Cervical spine degeneration Eczema Hypotension Irritable bowel syndrome with constipation Kidney stone Lordosis of cervicothoracic region Neoplasm of pituitary gland Preeclampsia Vasovagal syncope Past Surgical History Past Surgical History: Procedure Laterality Date CHOLECYSTECTOMY COLONOSCOPY CYSTO MAGGI LASER, RETRO, URETEROSCOPY, STENT (USUAL) Right 10/31/2019 Procedure: CYSTOSCOPY,RIGHT RETROGRADE PYELOGRAM, RIGHT URETEROSOCPY,; basket stone extraction RIGHT URETERAL STENT PLACEMENT; Surgeon: Yan Zuñiga MD; Location: [facility] Main OR; Service: Urology CYSTO RETRO STONE MANIPULATION STENT INSERTION Right 11/05/2019 Procedure: CYSTOSCOPY WITH RIGHT STENT REMOVAL; Surgeon: Yan Zuñiga MD; Location: [facility]; Service: Urology KIDNEY STONE SURGERY 10/31/2019 OTHER SURGICAL HISTORY wisdom teeth Family History Family History Problem Relation Age of Onset Hypertension Mother Hypertension Maternal Grandfather Medications Luli Johnson Home Medication Instructions Prior to Surgery SARITHA:[id number] Printed on:08/03/20 0512 Medication Information Take last dose on Take the morning of surgery Comment(s) ARIPiprazole (ABILIFY) 5 MG tablet Take 5 mg by mouth nightly . ascorbate calcium (VITAMIN C ORAL) Take 1 tablet by mouth daily . benztropine (COGENTIN) 0.5 MG tablet Take 0.5 mg by mouth every evening . cholecalciferol, vitamin D3, (VITAMIN D3 ORAL) Take 1 tablet by mouth daily . famotidine (PEPCID) 20 MG tablet Take 20 mg by mouth daily as needed . fluconazole (Diflucan) 150 MG tablet Take 1 (one) tablet (150 mg total) by mouth once as needed (may repeat in 3 days) . hyoscyamine (LEVSIN) 0.125 mg tablet Take 1 tablet by mouth 3 (three) times a day as needed . metroNIDAZOLE (METROGEL) 0.75 % vaginal gel Insert into the vagina nightly . fblkqsab-vxnc-ZD-calcium-mins 9 mg iron-400 mcg Tab Take 1 tablet by mouth daily . nystatin (MYCOSTATIN) ointment Apply topically 2 (two) times a day . ondansetron (ZOFRAN-ODT) 4 MG disintegrating tablet Dissolve 1 (one) tablet (4 mg total) on top of tongue every 8 (eight) hours as needed for nausea . promethazine (PHENERGAN) 6.25 mg/5 mL syrup Take 12.5 mg by mouth every 6 (six) hours as needed . Review of Systems All systems reviewed negative except as mentioned above. Constitutional: No known fevers. The patient is non toxic in appearance. Eyes: No discharge, redness noted. No visual loss, blurred vision, double vision. ENMT: No hearing loss, sneezing, congestion, runny nose, sore throat or epistaxis. Cardiovascular: No chest pain, chest pressure or chest discomfort. No palpitations or edema. Respiratory: No cough, shortness of breath, PND or orthopnea. GI: No diarrhea. : No obstructive symptoms. No dysuria, frequency or urgency. Musculoskeletal: No joint pain. Skin: No rash, or wounds. No change in skin, hair or nails. Neuro: No numbness and weakness. Psyche: No hallucinations, SI or HI. Heme/lymph/immue/allergy: No abnormal bruising, no abnormal bleeding, no enlarged lymph nodes, hives, eczema. Nursing note and vitals reviewed. Physical Exam Vital Signs During ED Visit (as charted by nursing) Patient Vitals for the past 24 hrs: BP Temp Temp src Pulse Resp SpO2 Height Weight 08/03/20 0500 113/76 95 99 % 08/03/20 0418 112/79 (!) 113 18 99 % 08/03/20 0307 123/83 98.6 F (37 C) Oral 90 (!) 20 100 % 5' 54.5 kg (120 lb 2.4 oz) Physical Exam Constitutional: Well-developed and well-nourished. No distress. HEENT: Normocephalic and atraumatic. Right external right ear normal. Left external ear normal. Nose normal. Conjunctivae and EOM are normal. Pupils are equal, round, and reactive to light and accomodation. Right eye exhibits no discharge. Left eye exhibits no discharge. No scleral icterus. Neck: Normal range of motion. Neck supple. No tracheal deviation present. Cardiovascular: Normal rate, regular rhythm, normal heart sounds and intact distal pulses. No murmur heard. Pulmonary/Chest: Effort normal and breath sounds normal. No respiratory distress. No wheezes. No rales. Abdominal: Soft. Bowel sounds are normal. No distension. There is no tenderness. There is no rebound and no guarding. Musculoskeletal: Normal range of motion. No edema. There is tenderness to palpation of paraspinal muscles of cervical, thoracic region bilaterally. There is no tenderness to palpation of the spinous process of the cervical, thoracic or lumbar spine. No ecchymosis noted. Neurological: Alert and oriented to person, place, and time. No cranial nerve deficit. Coordinationnormal. Skin: Skin is warm and dry. No rash noted. Not diaphoretic. No erythema. Psychiatric: Normal mood and affect. Behavior is normal. Labs (if any) During ED Visit Labs Reviewed URINALYSIS - Abnormal; Notable for the following components: Result Value Clarity, Urine Hazy (*) Blood, Urine Small (*) All other components within normal limits Narrative: Microscopic examination is performed on all urinalysis samples and only positive findings are reported. The test for blood on the chemical analytic portion of urinalysis may also be positive due to hemoglobinuria and myoglobinuria and if red blood cells are present they are quantified by microscopic examination. BASIC METABOLIC PANEL - Normal Narrative: The eGFR should be used for monitoring renal function only and not for medication dosing. HEPATIC FUNCTION PANEL - Normal LIPASE - Normal LACTIC ACID, PLASMA - Normal HCG, SERUM, QUALITATIVE - Normal Narrative: Negative: The result is less than or equal to 5 mIU/mL of HCG. CPK - Normal COVID-19/INFLUENZA A,B MOLECULAR CBC AND DIFFERENTIAL Narrative: The following orders were created for panel order CBC w/ Diff. Procedure Abnormality Status --------- ------ CBC Auto Differential[[id number]] Final result Please view results for these tests on the individual orders. CBC WITH AUTO DIFFERENTIAL Radiographic Imaging (if any) During ED Visit No orders to display Medications Ordered/Given During ED Visit Medications sodium chloride (PF) (NS) flush 5 mL (has no administration in time range) And sodium chloride 0.9% (NS) (has no administration in time range) sodium chloride 0.9% (NS) bolus 1,000 mL (0 mL Intravenous Stopped 08/03/206) HYDROmorphone (DILAUDID) injection 1 mg (1 mg Intravenous Given 08/03/20 5859) ondansetron (ZOFRAN) injection 8 mg (8 mg Intravenous Given 08/03/20 5094) diazePAM (VALIUM) syringe 2.5 mg (2.5 mg Intravenous Given 08/03/20 8968) ondansetron (ZOFRAN) injection 8 mg (8 mg Intravenous Given 08/03/20 9644) Procedures (if any) During ED Visit Procedures Medical Decision Making After initial evaluation, IV was established. The patient was placed on the monitor. Blood work wasobtained. She received IV fluids. The patient received Zofran IV as well as Dilaudid and Valium. The patient agreed to blood work. She was to make sure she did not develop any electrolyte abnormality. However, she declined any imaging studies as she has had multiple CTs recently which included CT of the head, neck, chest abdomen pelvis. She hopes for symptomatic relief but does not want any further imaging studies to be completed today. Blood work shows unremarkable BMP, CPK, lipase, lactic acid, CBC, hepatic function panel. Pregnancytest is negative. Urinalysis shows small amount of blood but no nitrates or leuk esterases. The patient was reevaluated. She feels no difference. She continues to have nausea and does not feel comfortable going home. The patient will be admitted to medicine service for observation. Diagnosis 1. Nonintractable headache, unspecified chronicity pattern, unspecified headache type 2. Acute bilateral back pain, unspecified back location 3. Intractable vomiting with nausea, unspecified vomiting type DO Paddy Parada DO 08/03/20511 * Kamini Salgado RN - 08/03/2020 3:15 AM EDT Pt c/o 12/14 all over back pain x past month along with headache that started a few hours ago. Reports N/V which is a chronic problem for her that has been worse x past 24 hrs. Pt states she has an appt with the [facility] spine center on 08/26 for her back. documented in this [id number] Physician Hospital Discharge summaryTnunt [facility]05-15-[facility]21 History of Present illness Narrative * Kyle Irvin MD - 07/19/2020 5:56 PM EDT Patient called the after-hours line due to back pain. She states that she was told to go to the emergency room by Dr. Zuñiga's team. This is not a new problem but has been a little worse recently. She notes pain throughout her back and she was frustrated that recently when she went to the emergency room she was not given any pain medicines when heading home. Her pain is constant in nature and review of her last CT scan showed a 7 mm renal cyst. She was worried the cyst is causing the pain. I reassured her that renal cysts rarely cause pain and or not something she needs to worry about. We discussed that cyst can be there lifelong and generally do not cause a problem unless pressing on other organs. She will contact her PCP as I stated I could not provide pain medication over the phone. documented in this [id number] Miscellaneous Notes* ED Attestation Note - Coni Anguiano MD - 07/17/2020 6:40 PM EDT I personally interviewed the patient. I personally examined the patient. I discussed the patient with FINANCE LEAD/PA. I agree with the FINANCE LEAD/PA treatment plan. I agree with the FINANCE LEAD/PA plan of care. I agree with the FINANCE LEAD/PA dispo as documented. 29-year-old female presenting with acute on chronic diffuse body pain. She has chronic abdominal pain associated nausea and vomiting has a history of extensive GI work-up, is status post fairly recent cholecystectomy without complication. She has mild diffuse abdominal tenderness without peritonealsigns. Nausea vomiting really is not her chief complaint today she describes full body pain. I reviewed her imaging both at [facility] and through [facility]. She even just saw sports medicine yesterday for her chronic neck and back pain is supposed to do feet PT but states it was too painful she can go through with it. She has no red flag symptoms or neurosurgical emergency. She does not need acute imaging today. She is worried about a incidental small renal cyst and she is reassured that this is just incidental does not need follow-up imaging at this time. We will treat symptomatically check some basic lab work at this time and refer back to her specialist. . documented in this [id number] Emergency department Note* Ant Light PA-C - 07/17/2020 6:14 PM EDT ED PROVIDER NOTE [facility] EM[facility]ENCY [facility] NAME: Luli Johnson AGE: 29 y.o. : 1990 VISIT DATE: 07/17/2020 CSN: [id number] PCP: Mercedez Cotto CNP Chief Complaint Patient presents with Back Pain HPI Luli Johnson is a 29 y.o. female that has a past medical history of ADD (attention deficit disorder), Alopecia, Alopecia areata, Anxiety with depression, Eczema, Hypotension, Irritable bowel syndrome with constipation, Kidney stone, Neoplasm of pituitary gland, Preeclampsia, and Vasovagal syncope. Patient presents to the emergency department today with complaints of back pain. Patient reports that she was diagnosed with C5-C6 degenerative disc disease. She states that everything is aching. 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 She states she has been taking Tylenol without relief. Her pain is a 10 out of 10. Patient was also diagnosed with a renal cyst and is concerned that it may have ruptured. She states that she had a cholecystectomy last month completed at [facility]. She denies any use of hormone therapy. She denies any recent long travel. Past Medical History: Diagnosis Date ADD (attention deficit disorder) Alopecia Alopecia areata Anxiety with depression Eczema Hypotension Irritable bowel syndrome with constipation Kidney stone Neoplasm of pituitary gland Preeclampsia Vasovagal syncope Past Surgical History: Procedure Laterality Date COLONOSCOPY CYSTO MAGGI LASER, RETRO, URETEROSCOPY, STENT (USUAL) Right 10/31/2019 Procedure: CYSTOSCOPY,RIGHT RETROGRADE PYELOGRAM, RIGHT URETEROSOCPY,; basket stone extraction RIGHT URETERAL STENT PLACEMENT; Surgeon: Yan Zuñiga MD; Location: [facility] Main OR; Service: Urology CYSTO RETRO STONE MANIPULATION STENT INSERTION Right 11/05/2019 Procedure: CYSTOSCOPY WITH RIGHT STENT REMOVAL; Surgeon: Yan Zuñiga MD; Location: [facility] [place]; Service: Urology KIDNEY STONE SURGERY 10/31/2019 OTHER SURGICAL HISTORY wisdom teeth Family History Problem Relation Age of Onset Hypertension Mother Hypertension Maternal Grandfather Social History Socioeconomic History Marital status: Single Spouse name: Not on file Number of children: Not on file Years of education: Not on file Highest education level: Not on file Occupational History Not on file Social Needs Financial resource strain: Not on file Food insecurity Worry: Not on file Inability: Not on file Transportation needs Medical: Not on file Non-medical: Not on file Tobacco Use Smoking status: Never Smoker Smokeless tobacco: Never Used Substance and Sexual Activity Alcohol use: No Drug use: No Sexual activity: Yes Partners: Male Lifestyle Physical activity Days per week: Not on file Minutes per session: Not on file Stress: Not on file Relationships Social connections Talks on phone: Not on file Gets together: Not on file Attends faith service: Not on file Active member of club or organization: Not on file Attends meetings of clubs or organizations: Not on file Relationship status: Not on file Other Topics Concern Not on file Social History Narrative Not on file Previous Medications Medication Sig ARIPiprazole (ABILIFY) 5 MG tablet Take 5 mg by mouth nightly . ascorbate calcium (VITAMIN C ORAL) Take 1 tablet by mouth daily . benztropine (COGENTIN) 0.5 MG tablet Take 0.5 mg by mouth every evening . cholecalciferol, vitamin D3, (VITAMIN D3 ORAL) Take 1 tablet by mouth daily . famotidine (PEPCID) 20 MG tablet Take 20 mg by mouth daily as needed . fluconazole (Diflucan) 150 MG tablet Take 1 (one) tablet (150 mg total) by mouth once as needed (may repeat in 3 days) . hyoscyamine (LEVSIN) 0.125 mg tablet Take 1 tablet by mouth 3 (three) times a day as needed . metroNIDAZOLE (METROGEL) 0.75 % vaginal gel Insert into the vagina nightly . avalaios-ntei-KB-calcium-mins 9 mg iron-400 mcg Tab Take 1 tablet by mouth daily . nystatin (MYCOSTATIN) ointment Apply topically 2 (two) times a day . ondansetron (ZOFRAN-ODT) 4 MG disintegrating tablet Dissolve 1 (one) tablet (4 mg total) on top of tongue every 8 (eight) hours as needed for nausea . promethazine (PHENERGAN) 6.25 mg/5 mL syrup Take 12.5 mg by mouth every 6 (six) hours as needed . Allergies Allergen Reactions Cat Dander Shortness Of Breath Ciprofloxacin-Hydrocortisone Swelling Tree Nuts Shortness Of Breath All tree nuts Sulfasalazine Ciprofloxacin Rash and Hives Diphenhydramine Swelling, Hives and Rash Diphenhydramine Hcl Rash and Hives Hydrocortisone Rash and Hives Sulfa (Sulfonamide Antibiotics) Rash and Hives Sulfamethoxazole-Trimethoprim Rash and Hives Review of Systems Constitutional: Negative for chills and fever. HENT: Negative for congestion and rhinorrhea. Eyes: Negative for discharge and redness. Respiratory: Negative for shortness of breath. Cardiovascular: Negative for chest pain. Gastrointestinal: Positive for abdominal pain. Negative for nausea and vomiting. Genitourinary: Negative for difficulty urinating. Musculoskeletal: Positive for arthralgias, back pain, myalgias and neck pain. Skin: Negative for rash. Neurological: Positive for weakness and numbness. Psychiatric/Behavioral: Negative for agitation and confusion. All other systems reviewed and are negative. Patient Vitals for the past 24 hrs: BP Temp Pulse Resp SpO2 Height Weight 07/17/20 2050 98/62 79 16 99 % 07/17/20 1706 134/89 98.6 F (37 C) 92 18 99 % 5' 54 kg (119 lb) Physical Exam Vitals signs and nursing note reviewed. Constitutional: Appearance: Normal appearance. HENT: Head: Normocephalic and atraumatic. Right Ear: External ear normal. Left Ear: External ear normal. Nose: Nose normal. Mouth/Throat: Mouth: Mucous membranes are moist. Pharynx: Oropharynx is clear. Eyes: Extraocular Movements: Extraocular movements intact. Conjunctiva/sclera: Conjunctivae normal. Neck: Musculoskeletal: Normal range of motion. Comments: Patient ports discomfort palpation of the cervical spine without any palpable deformitiesor step-offs. Cardiovascular: Rate and Rhythm: Normal rate and regular rhythm. Heart sounds: Normal heart sounds. Pulmonary: Effort: Pulmonary effort is normal. Breath sounds: Normal breath sounds. Abdominal: General: Abdomen is flat. Bowel sounds are normal. Palpations: Abdomen is soft. Musculoskeletal: General: Tenderness present. Comments: Patient has diffuse tenderness along her thoracic and lumbar spine without any palp deformities. She also reports diffuse tenderness with palpation of her musculature throughout the body. Skin: General: Skin is warm. Neurological: General: No focal deficit present. Mental Status: She is alert. Psychiatric: Mood and Affect: Mood normal. Laboratory & Radiographic Imaging (if done): Results for orders placed or performed during the hospital encounter of 07/17/20 BMP Result Value Ref Range Sodium 141 135 - 145 mmol/L Potassium 3.6 3.5 - 5.1 mmol/L Chloride 106 98 - 108 mmol/L Bicarbonate 24 21 - 32 mmol/L Anion Gap 15 10 - 20 mmol/L Glucose 102 (H) 65 - 99 mg/dL BUN 11 8 - 25 mg/dL Creatinine 0.56 0.40 - 1.10 mg/dL eGFR 126 >=60 mL/min/1.73 m2 BUN/Creatinine Ratio 19.6 10.0 - 20.0 Calcium 9.8 8.4 - 10.2 mg/dL Hepatic Function Panel (LFT) Result Value Ref Range Total Protein 7.6 6.0 - 8.0 g/dL Albumin 4.6 3.2 - 5.2 g/dL Total Bilirubin <0.2 0.0 - 1.3 mg/dL Bilirubin, Direct <0.1 0.0 - 0.4 mg/dL Alkaline Phosphatase 47 40 - 140 U/L AST 14 0 - 45 U/L ALT 16 0 - 40 U/L Lipase Result Value Ref Range Lipase 35 15 - 65 U/L TSH with Reflex Free T4 Result Value Ref Range TSH 1.48 0.27 - 4.20 mcIU/mL HCG (QUALITATIVE) Result Value Ref Range Beta-hCG Qual Negative Negative Urinalysis Result Value Ref Range Color, Urine Yellow Colorless, Yellow Clarity, Urine Clear Clear Specific [place] 1.027 (H) 1.005 - 1.025 pH, Urine 6.5 5.0 - 7.0 Protein, Urine Negative Negative mg/dL Glucose, Urine Negative Negative mg/dL Ketones, Urine Negative Negative mg/dL Bilirubin, Urine Negative Negative Urobilinogen, Urine <2.0 <2.0 mg/dL Blood, Urine Small (A) Negative Nitrite, Urine Negative Negative Leukocyte Esterase, Urine Negative Negative WBCs, Urine 1 0 - 5 /hpf RBCs, Urine 12 (H) 0 - 3 /hpf Bacteria, Urine None Seen None Seen /hpf Squamous Epithelial 3 0 - 4 /hpf Mucus, Urine Rare None Seen, Rare /lpf CBC Auto Differential Result Value Ref Range WBC 5.54 4.50 - 11.00 K/mcL RBC 4.36 4.00 - 5.20 M/mcL Hemoglobin 12.0 12.0 - 16.0 g/dL Hematocrit 37.4 36.0 - 46.0 % MCV 85.8 80.0 - 100.0 fL MCH 27.5 26.0 - 34.0 pg MCHC 32.1 31.0 - 37.0 g/dL Platelets 246 150 - 400 K/mcL RDW - CV 13.1 11.6 - 14.8 % MPV 9.5 9.4 - 12.4 fL Neutrophils 57.1 % Lymphocytes 33.2 % Monocytes 7.2 % Eosinophils 1.6 % Basophils 0.5 % IG Percent 0.40 % Neutrophils Abs 3.16 1.70 - 7.00 K/mcL Lymphocytes Abs 1.84 0.90 - 4.00 K/mcL Monocytes Abs 0.40 0.30 - 0.90 K/mcL Eosinophils Abs 0.09 0.00 - 0.50 K/mcL Basophils Abs 0.03 0.00 - 0.30 K/mcL IG Absolute 0.02 0.00 - 0.30 K/mcL Nucleated RBC 0.0 % Nucleated RBC Abs 0.00 0.00 - 0.00 K/mcL No orders to display Procedures MDM Number of Diagnoses or Management Options Acute exacerbation of chronic low back pain Myalgia Diagnosis management comments: Luli Johnson is a 29-year-old female who was evaluated in the emergency department today with complaints of back pain. On arrival, patient is stable nontoxic-appearing. Her vital signs are stable. She is afebrile. SPO2 of 99% on room air. BMP showed glucose of 102.LFTs within normal limits. Lipase of 35. TSH of 1.48. Beta-hCG qualitative negative. Urinalysis unremarkable. CBC showed no leukocytosis or acute anemia. During her stay in the emergency department, patient was given a liter bolus of normal saline and droperidol. Patient reported improvement of hersymptoms with administration of these medications. Patient was encouraged to follow-up with her primary care provider as needed. She was given strict return precautions to the emergency department. Patient verbalized understanding and was agreeable this plan of care. She was discharged home in stable condition. Patient evaluated today with Dr. Anguiano. Clinical Impression: 1. Acute exacerbation of chronic low back pain 2. Myalgia ED Disposition ED Disposition Condition Comment Discharge Stable Luli Johnson discharged to home/self care in stable condition. Follow-up Information 1. Mercedez Cotto CNP. Specialties: Internal Medicine, Nurse Practitioner Why: for follow up after ER evaluation [id number] [phone] 2. [facility] Emergency Department. Specialty: Emergency Medicine Why: If symptoms worsen [address] [facility] [id number] Contact information for after-discharge care Follow-up information has not been specified. . . If the patient was prescribed opioid medication, the patient was advised of the risks and benefits of opioid medications, including the potential for addiction. Ant Light PA-C 07/17/20 2147 * Delbert Mcmullen RN - 07/17/2020 4:26 PM EDT Pt arrives in with mask on c/o L upper back pain that radiates down L side to leg for the past couple days. Reports hx of cervical spine degen. documented in this [id number] Hospital Discharge instructions * Instructions* Ant Light PA-C - 07/17/2020 Thank you for allowing us to be involved in your care today. Follow all instructions provided and as discussed today. If any medication was prescribed, please take as instructed. Please follow up with your primary care provider, as well as any specialists recommended today. If you do not have a family doctor, you may find one through the [facility] Physician Referral Service by calling [phone] ([phone]) or by visiting [email or web address]. As a reminder, you have undergone an emergency evaluation today. This is not a substitute for a comprehensive physical exam by a primary care provider. Please return to the Emergency Department for any worsening symptoms or other concerns. The physician and staff of the Emergency Department would like to thank you for choosing our facility for your health care needs. Our goal is to provide exceptional service. We are here 24 hours a day, 7 days a week, and are always here for you. Luli, Thank You for choosing [facility]. documented in this [id number] Miscellaneous Notes* Quick Note - Ventura Mejia RN - 07/04/2020 6:09 PM EDT AVS and discharge instructions reviewed with patient. Understanding verbalized, all questions answered. New prescriptions discussed. All home items in patient's possession. Peripheral IV removed per order. Wheelchair offered and provided. Patient escorted downstairs by staff. * Quick Note - Ophelia Mendez, TECHNOLOGIST - 07/04/2020 12:54 PM EDT This patient has been scheduled for a Gastric Emptying Study. If the prep is followed, the exam will be done Tuesday07-07-20 in early a.m. Because the patient is required to eat a radioactive meal for this test, the patient MUST eat a full meal of solid foods the night prior (Tuesday night) and be able to keep the meal down without vomiting. We will check with the morning nurse to see if the patient was able to do so. If the patient isunable to eat, this test can also be set up on an outpatient basis. If the patient has an endoscopy over the weekend, this test may be delayed, depending on the date and time the endoscopy was done. This is due to the medications given for that procedure. For this exam, the patient will be required to eat a meal of scrambled eggs (with radioactive tracer added), 2 pieces of white toast with jelly, and water. The meal must be eaten within 10 minutes and pictures will be taken immediately, at 1 hour, 2 hours, and 4 hours intervals. Patient is welcome to bring their phone, computer, or a book to pass the time as the entire exam takes appx 4.5 hours. Prep: NPO after midnight, or at least 6 hours prior to the test. -No smoking the morning of the test and throughout the time of imaging. -If diabetic, test and record fasting blood glucose level (must be <275 mg/dl). Can take about dose of insulin with the radioactive meal (consult with doctor). -Do not take laxatives the day before or during the test. -For menstruating females it is preferable to perform this test during the first 10 days of their menstrual cycle to improve the interpretation of the study and to prevent the administration of radionuclide to a potentially woman. -The patient should check with their doctor or pharmacist to determine if any of their medications may affect the rate of gastric emptying, and to determine if they should stop such medications. - Non-narcotic pain medications and anti-nausea drugs do not need to be stopped prior to this test. -The following medications should be stopped 2 days prior to the test if possible as they do changethe rate of gastric motility (to include all prokinetic drugs, opiate/narcotic pain drugs, anticholinergic/antispasmodic drugs and benzodiazapines): PROKINETIC DRUGS: GENERIC BRAND NAME Metoclopramide Reglan, Reglan ODT, Octamide Domperidone Motillium Erythromycin, Clarithromycin Biaxin, Z puja, Zithromax Azithromycin Tegaserod maleate Zelnorm (No longer available in [place] OPIATE / NARCOTIC DRUGS: GENERIC BRAND NAME Meperidine Demerol Codeine Codeine Sulfate Morphine MS Contin Oxycodone HCL Oxycontin Oxycodone and Aspirin Percodan Oxycodone and Acetaminophen Percocet, Tylox Hydromorphone hydrochloride Dilaudid Hydrocodone Hycodan Hydrocodone bitartrate Homatropine methylbromide Hydrocodone and chlorpheniramine Tussionex (cough suppressant) Hydrocodone and acetaminophen Vicodin, Lortab, [place], Lorcet Oxycodone HCL Oxycontin Fentanyl citrate Actiq Buprenorphine Butrans, Subutex Buprenorphine and naloxone Suboxone Tramadol Ultram Acetaminophen and propoxyphene Darvocet Fentanyl transdermal Duragesic patch Acetaminophen and codeine Tylenol #3 Methadone Dolophine, Methadose ANTICHOLINERGIC/ANTISPASMODIC DRUGS: GENERIC BRAND NAME Dicyclomine hydrochloride Bentyl Belladonna alkaoids Hyoscyamine Sulfate Levsin Glycopyrrolate Robinul Atropine-diphenoxylate Atropine BENZODIAZEPINES: GENERIC BRAND NAME Diazepam Valium, Diastat, Valrelease Alprazolam Niravam, Xanax Lorazepam Ativan Clonazepam Klonopin Chlordiazepoxide Librium Chlordiazepoxide and clidinium Librax Triazolam Halcion Temazepam [place] Quazepam [place] Estazolam Prosom Flurazepam [place] Oxazepam Serax Clorazepate Tranxene Midazolam Versed OTHER DRUGS WHICH MAY AFFECT GASTRIC EMPTYING: GENERIC BRAND NAME Nifedipine Procardia, Adalat, Nifediac, Afeditab Progesterone Progesterone Octreotide acetate Sandostatin Theophylline Thedur, Choledyl, Lufyllin, Slo-Bid, Quibron T, Slo-Phyllin Phentolamine Regitine Flexeril Cyclobenzaprine * ED Procedure Note - Nathan Amin DO - 07/04/2020 1:54 AM EDT Associated Order(s): EKG 12-lead EKG 12-lead Date/Time: 07/04/2020 1:54 AM Performed by: Nathan Amin DO Authorized by: Nathan Amin DO Interpreted by ED attending physician Comparison: not compared with previous ECG Rhythm: sinus rhythm and sinus tachycardia BPM: 125 Conduction: conduction normal ST Segments: ST segments normal QRS axis: normal T Waves: T waves normal normal IL interval normal QRS interval normal QT interval IL Interval: 128 QRS Interval: 76 QT Interval: 258 Other findings: CARMEN Clinical impression: normal ECG and sinus tachycardia * ED Attestation Note - Nathan Amin DO - 07/04/2020 1:34 AM EDT ED Attestation Patient was evaluated in conjunction with the FINANCE LEAD/PA Marilyn Barton. I personally interviewed the patient. I personally examined the patient. I discussed the patient with FINANCE LEAD/PA. I agree with the FINANCE LEAD/PA treatment plan. I agree with the FINANCE LEAD/PA plan of care. I agree with the FINANCE LEAD/PA dispo as documented. Luli is a 29-year-old female history of IBS-C, chronic gastritis, vasovagal syncope who presents emergency department for nausea vomiting and syncope. 10 days ago patient had laparoscopic cholecystectomy at [facility]. This was elective surgery for postprandial pain that has resolved after the surgery. She states over the past 24 hours she has been having persistent nausea and vomiting despite Phenergan and Zofran. She states is very typical of her chronic gastritis. She has been having difficulty keeping water down so she called her physician and they recommended her to try small sips and if she cannot keep it down to come to the emergency department which she did. She states this evening she is because she has not been able to eat or keep anything down she had an episode where she stood up too quick felt lightheaded fell to the ground similar to her vasovagal episodes in the past. Denies ever feeling any chest pain or shortness of breath. Denies history of blood clots. Denies recent illness fever cough or congestion. She has noticed some loose stool. She has chronic hemorrhoids. She isscheduled to follow-up with a logistics officer. Physical exam patient appears in no acute distress. She is quite pleasant. Oral mucosal membranes are moist. Heart rate slightly tachycardic but regular. Lungs are clear to auscultation bilaterally. Abdomen is soft and nontender without guarding. She has laparoscopic surgical incision wounds at [facility] without drainage or surrounding erythema. No evidence of jaundice. No scleral icterus.Negative Bauer sign. Good bowel sounds. Plan. Patient presents with persistent nausea vomiting and typical vasovagal syncopal episode. She appears in no acute distress. We will treat her nausea here and she is noted to be a little tachycardic and so we will hydrate her. Her abdomen is quite benign. We will check some basic labs. No imaging necessary at this time. Disposition pending reevaluation and oral challenge. ED Course as of Jul 04 237TueJul 04, 2020 0015 LIPASE: 37 [AV] 0015 Beta-hCG Qual: Negative [AV] 0015 BMP(!) [AV] 0016 Hepatic Function Panel (LFT) [AV] 0016 CBC w/ Diff [AV] 0016 IMPRESSION: FINDINGS/ Unremarkable radiographic appearance of the thoracic and lumbar spine. No acute findings and no significant degenerative changes. XR Lumbar Spine 2-3 Views (Standard) [AV] 0016 IMPRESSION: FINDINGS/ Unremarkable radiographic appearance of the thoracic and lumbar spine. No acute findings and no significant degenerative changes XR Thoracic Spine 3 Views (Standard) [AV] 0016 IMPRESSION: No acute intracranial abnormality. CT Head Or Brain Without Contrast [AV] 0016 IMPRESSION: No evidence of cervical spine fracture or traumatic malalignment. CT Cervical Spine Without Contrast [AV] 0132 Urinalysis(!) [AV] 0233 Patient continues to report nausea. She has attempted to drink water and states she does not feel well. She has only taken a few sips of water. She shows a small amount of secretion in the emesis bag that appears to be spit. Given her persistent nausea and recent surgery will go ahead and obtain CT scan for concern of any obstruction or ileus. Otherwise will plan to admit as she is not tolerating liquids [AV] ED Course User Index [AV] Nathan Amin DO 1. Intractable nausea and vomiting ED Disposition ED Disposition Condition Comment Hospitalize Phone call required?: No * ED Update Note - Reanna Herring PA-C - 07/03/2020 6:08 PM EDT MULTIPLE COMPLAINTS, HAD RECENT GALLBLADDER REMOVAL, STILL VOMITING, STATES HAS A HX OF VASOVAGAL SYNCOPE, PASSED OUT TODAY IN LIVING ROOM, FELL BACKWARDS WITH LOC AND STRUCK HEAD, HAVING NECK PAINS WELL . MEDS NOT HELPING WITH H ER VOMITING documented in this [id number] Hospital course Narrative* Giuliana Payan CNP - 07/04/2020 3:13 PM EDT Giuliana Payan CNP [facility] Hospitalists MEDICAL OBSERVATION DISCHARGE SUMMARY Luli Johnson Admit Date: 07/03/2020 Discharge Date: 07/04/20 Family Physician: Mercedez Cotto CNP MEDICAL OBSERVATION UNIT SUMMARY Luli Johnson is a 29 y.o. female admitted to the hospital on 07/03/2020 for acute on chronic nausea and vomiting. Supportive care with IVF and PRN zofran, UDS, CTPA/AP negative. Patient improved throughout the day. Denies any current nausea, eating lunch comfortably. Plan for patient to set up outpatient gastric emptying study. Information provided on AVS. Patient also diagnosed with BV while admitted. Will discharge with metronidazole gel for 5 days. Recommend holding Reglan and oxy at dischargein preparation for GES. Acute on chronic nausea and vomiting -multiple admissions and extensive work-up de by GI feel n/v is r/t chronic constipation, seen in care everywhere -patient with multiple admissions for n/v -last EGD 12/2019: chronic gastritis; COVID negative -recent garret at [facility] 06/23 for similar symptoms -follows with GI (Dr. Todd) at [facility]; last appointment 01/2020, patient states she has been unable to get in to see him since -CTPA/AP and UDS this admission negative -plan for GES OP, IG f/u set up with new doctor per patient request Bacterial vaginosis -appears to have chronic white vaginal discharge -most recently treated with PO flagyl 12/2019 -patient with white vignal discharge, fishy odor smell, wet prep: possible clue cells -will treat with topical metronidazole gel for 5 days Syncope -etiology likely vaso vagal secondary to volume depletion -chronic syncopal events 1-2x per week for >1year usually with defecation -prescribed compression stockings in the past but appears to be noncompliant -OVS negative, encourage fluid intake Comments/Problems to be Addressed After Discharge Patient aware to set up gastric emptying study GI appointment set up January 05 with new GI doc F/u with PCP as needed Code Status: Full Discharge Medication Recommendations Current Discharge Medication List START taking these medications Details metroNIDAZOLE (METROGEL) 0.75 % vaginal gel Insert into the vagina nightly . Qty: 70 g, Refills: 0 CONTINUE these medications which have NOT CHANGED Details ARIPiprazole (ABILIFY) 5 MG tablet Take 5 mg by mouth nightly . ascorbate calcium (VITAMIN C ORAL) Take 1 tablet by mouth daily . benztropine (COGENTIN) 0.5 MG tablet Take 0.5 mg by mouth every evening . cholecalciferol, vitamin D3, (VITAMIN D3 ORAL) Take 1 tablet by mouth daily . famotidine (PEPCID) 20 MG tablet Take 20 mg by mouth daily as needed . fluconazole (Diflucan) 150 MG tablet Take 1 (one) tablet (150 mg total) by mouth once as needed (may repeat in 3 days) . Qty: 2 tablet, Refills: 1 Associated Diagnoses: Yeast infection hyoscyamine (LEVSIN) 0.125 mg tablet Take 1 tablet by mouth 3 (three) times a day as needed . pjlgurfm-jzqm-NA-calcium-mins 9 mg iron-400 mcg Tab Take 1 tablet by mouth daily . nystatin (MYCOSTATIN) ointment Apply topically 2 (two) times a day . Qty: 30 g, Refills: 0 ondansetron (ZOFRAN-ODT) 4 MG disintegrating tablet Dissolve 1 (one) tablet (4 mg total) on top of tongue every 8 (eight) hours as needed for nausea . Qty: 10 tablet, Refills: 0 promethazine (PHENERGAN) 6.25 mg/5 mL syrup Take 12.5 mg by mouth every 6 (six) hours as needed . STOP taking these medications metoclopramide (REGLAN) 5 MG tablet Comments: Reason for Stopping: oxyCODONE (ROXICODONE) 5 MG immediate release tablet Comments: Reason for Stopping: Luli Johnson was seen and examined on the day of discharge. The patient was appropriately risk stratified for observation level of care. documented in this [id number] Hospital Discharge instructions * Discharge Instr - AVS First Page* Giuliana Payan CNP - 07/04/2020 2:43 PM EDT Please schedule a gastric emptying study by calling [phone]. Do not take Reglan or oxycodone 2days prior study. * Discharge Instr - Care Coordination* Giuliana Payan CNP - 07/04/2020 2:50 PM EDT Please call [phone] to set up gastric emptying study. Do not take reglan or oxy two days prior. * Additional Instructions* Giuliana Payan CNP - 07/04/2020 Bacterial Vaginosis: Care Instructions Overview Bacterial vaginosis is a type of vaginal infection. It is caused by excess growth of certain bacteria that are normally found in the vagina. Symptoms can include itching, swelling, pain when you urinate or have sex, and a mcgowan or yellow discharge with a fishy odor. It is not considered an infection that is spread through sexual contact. Symptoms can be annoying and uncomfortable. But bacterial vaginosis does not usually cause other health problems. However, if you have it while you are , it can cause complications. While the infection may go away on its own, most doctors use antibiotics to treat it. You may have been prescribed pills or vaginal cream. With treatment, bacterial vaginosis usually clears up in 5 to 7 days. Follow-up care is a fagan part of your treatment and safety. Be sure to make and go to all appointments, and call your doctor if you are having problems. It's also a good idea to know your test resultsand keep a list of the medicines you take. How can you care for yourself at home? Take your antibiotics as directed. Do not stop taking them just because you feel better. You need to take the full course of antibiotics. Do not eat or drink anything that contains alcohol if you are taking metronidazole or tinidazole. Keep using your medicine if you start your period. Use pads instead of tampons while using a vaginal cream or suppository. Tampons can absorb the medicine. Wear loose cotton clothing. Do not wear nylon and other materials that hold body heat and moisture close to the skin. Do not scratch. Relieve itching with a cold pack or a cool bath. Do not wash your vaginal area more than once a day. Use plain water or a mild, unscented soap. Do not douche. When should you call for help? Watch closely for changes in your health, and be sure to contact your doctor if: You have unexpected vaginal bleeding. You have a fever. You have new or increased pain in your vagina or pelvis. You are not getting better after 1 week. Your symptoms return after you finish the course of your medicine. Where can you learn more? Log into your personal health record on https://HOSTEXt.Germin8 and enter X360 in the Education box to learn more about Bacterial Vaginosis: Care Instructions. Current as of: September 21, 2019 Content Version: 12.8 [employer]. Care instructions adapted under license by your healthcare professional. If you have questions about a medical condition or this instruction, always ask your healthcare professional. [employer] disclaims any warranty or liability for your use of this information. Nausea and Vomiting: Care Instructions Your Care Instructions When you are nauseated, you may feel weak and sweaty and notice a lot of saliva in your mouth. Nausea often leads to vomiting. Most of the time you do not need to worry about nausea and vomiting, butthey can be signs of other illnesses. Two common causes of nausea and vomiting are stomach flu and food poisoning. Nausea and vomiting from viral stomach flu will usually start to improve within 24 hours. Nausea and vomiting from food poisoning may last from 12 to 48 hours. The doctor has checked you carefully, but problems can develop later. If you notice any problems ornew symptoms, get medical treatment right away. Follow-up care is a fagan part of your treatment and safety. Be sure to make and go to all appointments, and call your doctor if you are having problems. It's also a good idea to know your test resultsand keep a list of the medicines you take. How can you care for yourself at home? To prevent dehydration, drink plenty of fluids. Choose water and other caffeine- free clear liquids until you feel better. If you have kidney, heart, or liver disease and have to limit fluids, talk with your doctor before you increase the amount of fluids you drink. Rest in bed until you feel better. When you are able to eat, try clear soups, mild foods, and liquids until all symptoms are gone for 12 to 48 hours. Other good choices include dry toast, crackers, cooked cereal, and gelatin dessert, such as Jell-O. When should you call for help? Call 911 anytime you think you may need emergency care. For example, call if: You passed out (lost consciousness). Call your doctor now or seek immediate medical care if: You have symptoms of dehydration, such as: ? Dry eyes and a dry mouth. ? Passing only a little urine. ? Feeling thirstier than usual. You have new or worsening belly pain. You have a new or higher fever. You vomit blood or what looks like coffee grounds. Watch closely for changes in your health, and be sure to contact your doctor if: You have ongoing nausea and vomiting. Your vomiting is getting worse. Your vomiting lasts longer than 2 days. You are not getting better as expected. Where can you learn more? Log into your personal health record on https://HOSTEXt.Germin8 and enter H591 in the Education box to learn more about Nausea and Vomiting: Care Instructions. Current as of: May 02, 2019 Content Version: 12.8 [employer]. Care instructions adapted under license by your healthcare professional. If you have questions about a medical condition or this instruction, always ask your healthcare professional. [employer] disclaims any warranty or liability for your use of this information. documented in this [id number] Emergency department Note* Coni Flores RN - 07/04/2020 9:45 AM EDT Pt with ready bed 8256-02. Pt in tracking. Nurse updated. * Shagufta Greene RN - 07/04/2020 5:55 AM EDT Notified hospitalist Dr Ace of pts BP 94/56 and that she was symptomatic with feeling light headed. Also advised of patient reporting pain to abd/back and chest- specifically under left breast. Pt placed in slight trendelenburg position. Advised physician that pain is not surgical pain related. Waiting for response. * Shagufta Greene RN - 07/04/2020 3:14 AM EDT Pt back from CT * Yvonne Barton PA-C - 07/03/2020 11:43 PM EDT PCP - Mercedez Cotto, GARAGE LABORER Chief Complaint Patient presents with Nausea Emesis Fall History of Present Illness This 29-year-old female with history of mental health disease, vasovagal syncope, pituitary tumor, chronic gastritis, and IBS who is 10 days s/p laparoscopic cholecystectomy presents with epigastric pain, nausea and vomiting as well as a syncopal episode with resultant neck and back pain. She states that she has been doing well since her recent cholecystectomy. However, for the past 24 hours she has had epigastric discomfort with nausea and vomiting, which she states feels very typical of her chronic gastritis. This evening she stood up quickly and became lightheaded before falling to the ground with a brief syncopal event. She is unsure whether she struck her head but denies any headache. She does believe she landed flat on her back and complains of discomfort throughout her neck, upper and lower back. She denies radicular pain to the extremities, numbness or weakness. Denies chest pain or dyspnea. Unrelated, she has been noticing some thick white vaginal discharge recently and is concerned that she either has BV or yeast. Review of Systems Constitutional - no fever HEENT - no drooling Eyes - no discharge Respiratory - no stridor Endocrine - no polydipsia Allergy/immunization - no hives Skin - no color changes Neurologic - no new face asymmetry Hematologic - no new easy bruising Psych - no self injury Past Medical History Past Medical History: Diagnosis Date ADD (attention deficit disorder) Alopecia Alopecia areata Anxiety with depression Chronic gastritis Eczema Hypotension IBS (irritable bowel syndrome) Irregular menstrual cycle Kidney stone Mental disorder DEPRESSION AND ANGER ISSUE,ANXIETY Neoplasm of pituitary gland Preeclampsia Vasovagal syncope Past Surgical History Past Surgical History: Procedure Laterality Date COLONOSCOPY CYSTO MAGGI LASER, RETRO, URETEROSCOPY, STENT (USUAL) Right 10/31/2019 Procedure: CYSTOSCOPY,RIGHT RETROGRADE PYELOGRAM, RIGHT URETEROSOCPY,; basket stone extraction RIGHT URETERAL STENT PLACEMENT; Surgeon: Yan Zuñiga MD; Location: [facility] Main OR; Service: Urology CYSTO RETRO STONE MANIPULATION STENT INSERTION Right 11/05/2019 Procedure: CYSTOSCOPY WITH RIGHT STENT REMOVAL; Surgeon: Yan Zuñiga MD; Location: [facility] [place]; Service: Urology KIDNEY STONE SURGERY 10/31/2019 OTHER SURGICAL HISTORY wisdom teeth Family History Family History Problem Relation Age of Onset Hypertension Mother Hypertension Maternal Grandfather Social History Social History Socioeconomic History Marital status: Single Spouse name: Not on file Number of children: Not on file Years of education: Not on file Highest education level: Not on file Occupational History Not on file Social Needs Financial resource strain: Not on file Food insecurity Worry: Not on file Inability: Not on file Transportation needs Medical: Not on file Non-medical: Not on file Tobacco Use Smoking status: Never Smoker Smokeless tobacco: Never Used Substance and Sexual Activity Alcohol use: No Drug use: No Sexual activity: Yes Partners: Male Lifestyle Physical activity Days per week: Not on file Minutes per session: Not on file Stress: Not on file Relationships Social connections Talks on phone: Not on file Gets together: Not on file Attends faith service: Not on file Active member of club or organization: Not on file Attends meetings of clubs or organizations: Not on file Relationship status: Not on file Other Topics Concern Not on file Social History Narrative Not on file Allergies Allergies Allergen Reactions Cat Dander Shortness Of Breath Ciprofloxacin-Hydrocortisone Swelling Tree Nuts Shortness Of Breath All tree nuts Sulfasalazine Ciprofloxacin Rash and Hives Diphenhydramine Swelling, Hives and Rash Diphenhydramine Hcl Rash and Hives Hydrocortisone Rash and Hives Sulfa (Sulfonamide Antibiotics) Rash and Hives Sulfamethoxazole-Trimethoprim Rash and Hives Medications Luli Johnson Home Medication Instructions Prior to Surgery SARITHA:[id number] Printed on:07/04/20 9432 Medication Information Take last dose on Take the morning of surgery Comment(s) ARIPiprazole (ABILIFY) 5 MG tablet Take 5 mg by mouth nightly . ascorbate calcium (VITAMIN C ORAL) Take 1 tablet by mouth daily . benztropine (COGENTIN) 0.5 MG tablet Take 0.5 mg by mouth every evening . bisacodyL (FLEET) 10 mg/30 mL Enem Insert 30 mL (10 mg total) into the rectum daily as needed (Constipation) . cholecalciferol, vitamin D3, (VITAMIN D3 ORAL) Take 1 tablet by mouth daily . famotidine (PEPCID) 20 MG tablet Take 20 mg by mouth daily as needed . fluconazole (Diflucan) 150 MG tablet Take 1 (one) tablet (150 mg total) by mouth once as needed (may repeat in 3 days) . fluconazole (Diflucan) 150 MG tablet Take 1 (one) tablet (150 mg total) by mouth once as needed (may repeat in 3 days) . metoclopramide (REGLAN) 5 MG tablet Take 1 (one) tablet (5 mg total) by mouth 3 (three) times a day as needed (nausea and vomiting) . bendmhvi-xgfx-YW-calcium-mins 9 mg iron-400 mcg Tab Take 1 tablet by mouth daily . nystatin (MYCOSTATIN) ointment Apply topically 2 (two) times a day . ondansetron (ZOFRAN-ODT) 4 MG disintegrating tablet Dissolve 1 (one) tablet (4 mg total) on top of tongue every 8 (eight) hours as needed for nausea . vitamin with Ca-Iron-FA 27-1 mg Tab Take 1 tablet by mouth every morning . Physical Exam Initial Vital Signs BP 113/77 (BP Location: Right arm, Patient Position: Lying) Pulse 89 Temp 99.6 F (37.6 C) Resp (!) 19 Ht 5' Wt 52.6 kg (115 lb 14.4 oz) LMP 06/08/2020 SpO2 100% BMI 22.64 kg/m Vital Signs During ED Visit Patient Vitals for the past 24 hrs: BP Temp Temp src Pulse Resp SpO2 Height Weight 07/04/20 0130 89 (!) 19 100 % 07/03/20 2314 113/77 95 (!) 19 99 % 07/03/20 2048 113/78 99.6 F (37.6 C) (!) 107 16 98 % 07/03/20 1747 119/88 98.7 F (37.1 C) Oral (!) 138 (!) 20 99 % 5' 52.6 kg (115 lb 14.4 oz) Physical Exam Vitals signs and nursing note reviewed. Exam conducted with a hair boiler operator present. Constitutional: General: She is not in acute distress. Appearance: Normal appearance. She is well-developed. She is not ill-appearing or diaphoretic. HENT: Head: Normocephalic and atraumatic. Eyes: Conjunctiva/sclera: Conjunctivae normal. Neck: Musculoskeletal: Neck supple. Cardiovascular: Rate and Rhythm: Normal rate. Heart sounds: Normal heart sounds. Pulmonary: Effort: Pulmonary effort is normal. No respiratory distress. Breath sounds: Normal breath sounds. Abdominal: General: There is no distension. Palpations: Abdomen is soft. Tenderness: There is abdominal tenderness (mild epigastric ttp). There is no guarding or rebound. Comments: Well healing laparoscopic incision sites. Genitourinary: Comments: The external genitalia appears normal without rashes or lesions. On internal exam the cervix is visualized and appears normal without erythema. The cervix is closed. There is thick white vaginal discharge within the vault. Musculoskeletal: Normal range of motion. Comments: Mild tenderness along entire cervical, thoracic, and lumbar spine and paraspinous musculature without specific trigger point. No radicular findings with intact motor and sensory function. Skin: General: Skin is warm and dry. Neurological: General: No focal deficit present. Mental Status: She is alert and oriented to person, place, and time. Motor: No abnormal muscle tone. Psychiatric: Mood and Affect: Mood normal. Behavior: Behavior normal. Impression 1. Intractable nausea and vomiting 2. History of chronic gastritis 3. Bacterial vaginosis Medical Decision Making This patient has a longstanding history of chronic gastritis with intractable nausea/vomiting on her regular basis. She did recently undergo a laparoscopic cholecystectomy 10 days ago and states thather postprandial right upper quadrant pain has resolved since then, but over the past day she has had a flareup of what she believes to be her chronic gastritis. After numerous episodes of nausea vomiting today she stood up quickly and became lightheaded, with a brief syncopal episode during which time she landed on her back. She arrived here complaining of persistent nausea and vomiting as well as neck and back pain. Clinically she is well-appearing overall. Initially she was noted to be quite tachycardic but this normalized without intervention. Her mucous membranes do appear dry. She has no significant abdominal tenderness to palpation, with only minimal tenderness to deep palpation in the epigastrium. Her laparoscopic incision sites appear to be healing well with no evidence of infection or dehiscence. Laboratory studies are essentially unrevealing. Urinalysis does show an elevated specific gravity consistent with dehydration. Wet prep shows possible clue cells; this was performedas the patient is complaining of abnormal vaginal discharge. She may benefit from treatment with metronidazole gel. CT head and cervical spine as well as plain x-rays of the thoracic and lumbar spine were obtained, showing no acute injuries from her fall. EKG examined with no evidence of acute ischemia, ARVD, Brugada, WPW, prolonged QT, short QT, or secondary findings to suggest PE or HCM. PE wasconsidered given that she is 10 days postop with a syncopal episode, however she has no complaints of chest discomfort or dyspnea, calf pain or swelling. We have a clear explanation as to her syncopal episode given that she has a longstanding history of recurrent syncope, this time likely precipitated by standing quickly after having several episodes of vomiting throughout the day leading to at least some degree of dehydration. She was given IV fluids and 2 rounds of antiemetics and continues to dry heave, unable to tolerate sips of water. As a result, we plan to admit to the observation unitfor continued hydration and symptomatic control. We will add on CT pulmonary artery/abdomen/pelvis to definitively rule out PE versus postsurgical complication, though we have a very low clinical suspicion that this CT will be revealing. Study pending at time of dictation. Results Labs Reviewed WET PREPARATION - Abnormal; Notable for the following components: Result Value WBC, Wet Prep Few WBC's Seen (*) Clue Cells, Wet Prep Possible Clue Cells Seen (*) All other components within normal limits BASIC METABOLIC PANEL - Abnormal; Notable for the following components: BUN/Creatinine Ratio 29.1 (*) All other components within normal limits Narrative: The eGFR should be used for monitoring renal function only and not for medication dosing. URINALYSIS - Abnormal; Notable for the following components: Specific [place] 1.031 (*) Protein, Urine 30 (*) Blood, Urine Small (*) All other components within normal limits Narrative: Microscopic examination is performed on all urinalysis samples and only positive findings are reported. The test for blood on the chemical analytic portion of urinalysis may also be positive due to hemoglobinuria and myoglobinuria and if red blood cells are present they are quantified by microscopic examination. HEPATIC FUNCTION PANEL - Normal HCG, SERUM, QUALITATIVE - Normal Narrative: Negative: The result is less than or equal to 5 mIU/mL of HCG. LIPASE - Normal CHLAMYDIA/GC/TRICHOMONAS AMPLIFIED RNA Narrative: The following orders were created for panel order Chlamydia/GC/Trichomonas Amplified RNA. Procedure Abnormality Status --------- ------ Chlamydia/Gonorrhoeae Am...[[id number]] In process Trichomonas vaginalis Am...[[id number]] In process Please view results for these tests on the individual orders. CHLAMYDIA/GONORRHOEAE AMPLIFIED RNA TRICHOMONAS VAGINALIS AMPLIFIED RNA CBC AND DIFFERENTIAL Narrative: The following orders were created for panel order CBC w/ Diff. Procedure Abnormality Status --------- ------ CBC Auto Differential[[id number]] Final result Please view results for these tests on the individual orders. CBC WITH AUTO DIFFERENTIAL XR Thoracic Spine 3 Views (Standard) Final Result FINDINGS/ Unremarkable radiographic appearance of the thoracic and lumbar spine. No acute findings and no significant degenerative changes. Workstation ID: [id number] XR Lumbar Spine 2-3 Views (Standard) Final Result FINDINGS/ Unremarkable radiographic appearance of the thoracic and lumbar spine. No acute findings and no significant degenerative changes. Workstation ID: [id number] CT Cervical Spine Without Contrast Final Result No evidence of cervical spine fracture or traumatic malalignment. Workstation ID: [id number] CT Head Or Brain Without Contrast Final Result No acute intracranial abnormality. Workstation ID: [id number] CT Abdomen Pelvis With IV Contrast Only (Results Pending) Medications Given During ED Visit Medications sodium chloride (PF) (NS) 0.9 % contrast line flush 10 mL (has no administration in time range) And sodium chloride (PF) (NS) 0.9 % contrast line flush 80 mL (has no administration in time range) And iopamidoL (ISOVUE-370) 76 % injection 75 mL (has no administration in time range) ondansetron (ZOFRAN-ODT) disintegrating tablet 4 mg (4 mg Oral Given 07/03/20 181) sodium chloride 0.9% (NS) bolus 1,000 mL (0 mL Intravenous Stopped 07/04/20 0203) ondansetron (ZOFRAN) injection 4 mg (4 mg Intravenous Given 07/04/20 0100) Procedures Procedures Yvonne Barton PA-C 07/04/20 0245 * Nallely Cote RN - 07/03/2020 5:52 PM EDT Pt reporting fall about an hour and a half ago, states stood up and got dizzy and fell backwards oncarpet, +LOC, states about 5 min. Pt denies blood thinners. Pt reports ambulated afterwards. Pt reporting back and neck pain at this time. Pt placed in c-collar at this time. * Sasha Hastings RN - 07/03/2020 5:36 PM EDT Pt arrives to triage desk with cc of nausea and emesis x24 hours. Pt also reports abd pain. Pt had gallbladder removed on 06/23/2020 at [facility]. Pt reports surgical site is discolored. documented in this [id number] History and physical note* Giuliana Payan CNP - 07/04/2020 7:38 AM EDT Giuliana Payan CNP [facility] Hospitalists HISTORY AND PHYSICAL Patient Name:Luli Johnson :1990 Admit Date: [id number] Physicians: Mercedez Cotto CNP (Family) Perpetual Assessment: Luli Johnson is a 29 y.o. female who presented from home on 07/03/2020 with 24 hours of N/V, abdominal pain. ASSESSMENT AND PLAN Acute on chronic nausea and vomiting -multiple admissions and extensive work-up de by GI feel n/v is r/t chronic constipation, seen in care everywhere -patient with multiple admissions for n/v -last EGD 12/2019: chronic gastritis; COVID negative -recent garret at [facility] 06/23 for similar symptoms -follows with GI (Dr. Todd) at [facility]; last appointment 01/2020, patient states she has been unable to get in to see him since -continue supportive care with IVF and PRN Zofran; order UDS Bacterial vaginosis -appears to have chronic white vaginal discharge -most recently treated with PO flagyl 12/2019 -patient with white vignal discharge, fishy odor smell, wet prep: possible clue cells -will treat with topical metronidazole gel for 5 days Syncope -etiology likely vaso vagal secondary to volume depletion -chronic syncopal events 1-2x per week for >1year usually with defecation -prescribed compression stockings in the past but appears to be noncompliant -Orthostatic vitals pending. IVF IBS-C -chronic constipation -follows with GI at [facility], states she has not been taking her Pepcid or levsin because it makes he nauseous -continue Reglan Anxiety/Depression -per hx -continued home Jada Code Status: Full DVT Prophylaxis Lovenox Medication Reconciliation Reviewed Expected date of discharge: 06/24-07/05 Comments/Disposition: pending PO challenge, symptom improvement, UDS pending Discussed assessment and plan with Dr. Jalloh HISTORY CC: N/v, abdominal pain HPI: Luli Johnson is a 29 y.o. female who parented from home with 24 hours of nausea, vomiting and abdominal pain. Patient describes the pain as midepigastric that radiates down both sides of her stomach. She denies blood in her vomit or stools. Patient recently had a cholecystectomy at [facility] 06/23 forthese chronic symptoms of n/v, RUQ pain and a reduce ejection fraction on HIDA scan. Patient deniesany acute issues since surgery. She only used her percocet on 06/23 and states she has been using tylenol since to treat her pain. Lap incisions are clean and intact. She denies constipation. States she had one loose stool yesterday but has been having regular BMs. She denies introducing new foods, she did travel to [place] four days ago with family. Patient denies CP, SOB. She does endorse being lightheaded, most likely related to volume depletion. Patient states she only vomited a few times over the 24 hours but that her doctor who performed the surgery recommended that she come in to the hospital Patient also states that she is having white vaginal discharge with a fishy odor. She also is having mild vaginal itching. This is a chronic issue for the patient. She is chronically on PRN diflucan but denies taking it recently. She was last treated for BV in December 2019. She denies hx of diabetes, BGs have been 90-100s, no A1c listed. Patient denies alcohol and tobacco use. She also denies illicit drug use. ROS: > > > > > > > > > > The following system(s) were reviewed. Pertinent positive and negative findings are noted in the HPI. [x] Const [] Eyes [] ENT [x] Resp [x] CV [x] GI [x] [x] Neuro [x] Musc [x] Skin [x] Psych [] Endo [x] Allergy [] Heme/Lymph PMH/PSH/SH/FH: Past Medical History: Diagnosis Date ADD (attention deficit disorder) Alopecia Alopecia areata Anxiety with depression Eczema Hypotension Irritable bowel syndrome with constipation Kidney stone Neoplasm of pituitary gland Preeclampsia Vasovagal syncope Past Surgical History: Procedure Laterality Date COLONOSCOPY CYSTO MAGGI LASER, RETRO, URETEROSCOPY, STENT (USUAL) Right 10/31/2019 Procedure: CYSTOSCOPY,RIGHT RETROGRADE PYELOGRAM, RIGHT URETEROSOCPY,; basket stone extraction RIGHT URETERAL STENT PLACEMENT; Surgeon: Yan Zuñiga MD; Location: [facility] Main OR; Service: Urology CYSTO RETRO STONE MANIPULATION STENT INSERTION Right 11/05/2019 Procedure: CYSTOSCOPY WITH RIGHT STENT REMOVAL; Surgeon: Yan Zuñiga MD; Location: [facility]; Service: Urology KIDNEY STONE SURGERY 10/31/2019 OTHER SURGICAL HISTORY wisdom teeth Family History Problem Relation Age of Onset Hypertension Mother Hypertension Maternal Grandfather Social History Socioeconomic History Marital status: Single Spouse name: Not on file Number of children: Not on file Years of education: Not on file Highest education level: Not on file Occupational History Not on file Social Needs Financial resource strain: Not on file Food insecurity Worry: Not on file Inability: Not on file Transportation needs Medical: Not on file Non-medical: Not on file Tobacco Use Smoking status: Never Smoker Smokeless tobacco: Never Used Substance and Sexual Activity Alcohol use: No Drug use: No Sexual activity: Yes Partners: Male Lifestyle Physical activity Days per week: Not on file Minutes per session: Not on file Stress: Not on file Relationships Social connections Talks on phone: Not on file Gets together: Not on file Attends faith service: Not on file Active member of club or organization: Not on file Attends meetings of clubs or organizations: Not on file Relationship status: Not on file Other Topics Concern Not on file Social History Narrative Not on file Allergy Information: I have reviewed the patient's allergies. Cat dander, Ciprofloxacin-hydrocortisone, Tree nuts, Sulfasalazine, Ciprofloxacin, Diphenhydramine,Diphenhydramine hcl, Hydrocortisone, Sulfa (sulfonamide antibiotics), and Sulfamethoxazole-trimethoprim Home Medications: Outpatient Medications Marked as Taking for the 07/03/20 encounter (Hospital Encounter) Medication Sig ARIPiprazole (ABILIFY) 5 MG tablet Take 5 mg by mouth nightly . ascorbate calcium (VITAMIN C ORAL) Take 1 tablet by mouth daily . benztropine (COGENTIN) 0.5 MG tablet Take 0.5 mg by mouth every evening . cholecalciferol, vitamin D3, (VITAMIN D3 ORAL) Take 1 tablet by mouth daily . famotidine (PEPCID) 20 MG tablet Take 20 mg by mouth daily as needed . fluconazole (Diflucan) 150 MG tablet Take 1 (one) tablet (150 mg total) by mouth once as needed (may repeat in 3 days) . hyoscyamine (LEVSIN) 0.125 mg tablet Take 1 tablet by mouth 3 (three) times a day as needed . metoclopramide (REGLAN) 5 MG tablet Take 1 (one) tablet (5 mg total) by mouth 3 (three) times a dayas needed (nausea and vomiting) . zagetlcw-giwe-OZ-calcium-mins 9 mg iron-400 mcg Tab Take 1 tablet by mouth daily . nystatin (MYCOSTATIN) ointment Apply topically 2 (two) times a day . ondansetron (ZOFRAN-ODT) 4 MG disintegrating tablet Dissolve 1 (one) tablet (4 mg total) on top of tongue every 8 (eight) hours as needed for nausea . oxyCODONE (ROXICODONE) 5 MG immediate release tablet Take 5 mg by mouth every 6 (six) hours as needed for pain . promethazine (PHENERGAN) 6.25 mg/5 mL syrup Take 12.5 mg by mouth every 6 (six) hours as needed . PHYSICAL EXAMINATION > > > > > > > > Vital Signs: Temp: [98.7 F (37.1 C)-99.6 F (37.6 C)] 99.6 F (37.6 C) Heart Rate: [87-138] 87 Resp: [16-20] 16 BP: (93-119)/(56-88) 94/56 GENERAL: NAD EYES: Conjunctiva and sclera clear, EOMI, PERRL ENT: Hearing intact. Pharynx clear. NECK: No adenopathy or thyromegaly. CV: RRR, no murmur. No JVD. No edema. RESP: Clear, no rales, rhonchi, wheezes or increase in respiratory effort, no use of accessory muscles. GI: Non-distended, +BS, soft, non-tender. No guarding, masses or rebound. 3 clean, dry, intact surgical incisions. MUSC: Normal ROM without deformity. SKIN: Warm and dry. No rashes. NEURO: Alert, Ox3. Grossly normal motor and sensory exam. No focal deficits. PSYCH: Mood and affect are appropriate. Cooperative. Laboratory and Additional Data Acquired or Reviewed: [x] Laboratory [x] Transcriptions [x] Radiology [x] Microbiology [x] Cardiology [x] Outside Records [x] Medications [] Family Time Spent: Associated attestation - Shubham Nathan Mustapha, DO - 07/04/2020 1:06 PM EDT Patient seen and evaluated independently of the GARAGE LABORER, Giuliana Payan. I agree with their assessment and plan with additions as noted below. Please see the H&P for other details. Labs, medications, imaging and other studies were reviewed. The plan was discussed with the patient. Brief HPI: Patient was resting in bed, appeared comfortable. She states currently she has no nausea, last vomiting was yesterday although she did spit up water this morning. She has some lower abdominal pain currently. She states this pain is chronic. Her last bowel movement was yesterday. She has not seen her GI doctor, states it's because they canceled her appointment. She recently had her gallbladder removed at [facility] 10 days ago. She tells me she came to this hospital because [employer] brought her here. She is requesting a gastric emptying study. ROS: No chest pain, shortness of breath, no nausea,+ abdominal pain Examination: VITALS: Temp: [98.6 F (37 C)-99.6 F (37.6 C)] 98.6 F (37 C) Heart Rate: [70-138] 86 Resp: [11-20] 16 BP: (80-119)/(53-88) 109/73 GEN: No acute distress CARDIO: Regular rate rhythm, no edema PULMONARY: Clear to auscultation bilaterally no increase in respiratory effort GI: Soft, mild diffuse tenderness, nondistended, bowel sounds normal NEURO: Alert and orient x3, nonfocal exam Psych: Calm, cooperative Assessment and Plan: Luli Johnson is a 29 y.o. female who presented with nausea/vomiting, abdominal pain. Acute on chronic nausea and vomiting -multiple admissions and extensive work-up de by GI feel n/v is r/t chronic constipation, seen in care everywhere -patient with multiple admissions for n/v -last EGD 12/2019: chronic gastritis; COVID negative -recent garret at [facility] 06/23 for similar symptoms -follows with GI (Dr. Todd) at [facility]; last appointment 01/2020, patient states she has been unable to get in to see him since -continue supportive care with IVF and PRN Zofran; order UDS -Check gastric emptying study Bacterial vaginosis -appears to have chronic white vaginal discharge -most recently treated with PO flagyl 12/2019 -patient with white vignal discharge, fishy odor smell, wet prep: possible clue cells -will treat with topical metronidazole gel for 5 days Time spent: 70 minutes, greater than 50% spent on counseling/coordination of care documented in this [id number] [facility] NoteID NOW COVID-19_View3, [facility]:Performed By: #### [id number] ####[facility] [address] [place], [place] [address]-23-2021 [facility]ician [facility]2020 NoteID NOW COVID-19_View3, [facility]:Performed By: #### [id number] ####[facility] [address] [place], [place] [address]-11-2021 [facility]27[facility]16-2020 NoteID NOW COVID- 19_[employer]. [facility]Comment [facility] above:Performed By: #### [id number] ####[facility] [address] [place] [address] [id number] [facility]* Diagnosis Nausea & vomiting- Primary Nausea with vomiting Intractable nausea and vomiting History of chronic gastritis Bacterial vaginosis Unspecified vaginitis and vulvovaginitis Nausea and vomiting Nausea with vomiting [facility] Acute exacerbation of chronic low back pain- Primary Myalgia Unspecified myalgia and myositis [facility]* Diagnosis Nonintractable headache, unspecified chronicity pattern, unspecified headache type Acute bilateral back pain, unspecified back location Intractable vomiting with nausea, unspecified vomiting type [facility]* Diagnosis Abdominal pain in female patient- Primary [facility] Diagnosis Left flank pain- Primary Abdominal pain, unspecified site [facility] Diagnosis Intractable vomiting with nausea, unspecified vomiting type- Primary Abdominal pain, unspecified abdominal location [facility]* Diagnosis Generalized abdominal pain- Primary Abdominal pain, generalized [facility]* Diagnosis Dysuria- Primary Vomiting, intractability of vomiting not specified, presence of nausea not specified, unspecified vomiting type [facility] Diagnosis Menstrual irregularity- Primary Irregular menstrual cycle Pelvic floor dysfunction [facility] Diagnosis History of syncope- Primary Headache in front of head Vaginal itching Pruritus of genital organs documented in this encounter [facility]* Diagnosis Hyperthyroidism- Primary Thyrotoxicosis without mention of goiter or other cause, without mention of thyrotoxic crisis or storm [facility] Diagnosis Irritable bowel syndrome, unspecified type- Primary Weight loss Loss of weight documented in this encounter [facility] note* Diagnosis Weight loss- Primary Loss of weight documented in this encounter [facility] note* Diagnosis Constipation, unspecified constipation type- Primary Acute cystitis with hematuria documented in this encounter [facility] note* Diagnosis Generalized abdominal pain- Primary Abdominal pain, generalized documented in this encounter [facility] note* Diagnosis Paresthesia- Primary Disturbance of skin sensation Irregular periods Pituitary cyst (CMS/HCC) Other disorders of the pituitary and other syndromes of diencephalohypophyseal origin documented in this encounter [facility] note* Diagnosis Generalized abdominal pain- Primary Abdominal pain, generalized Nausea and vomiting, unspecified vomiting type Late period Other disorder of menstruation and other abnormal bleeding from female genital tract documented in this encounter [facility] note* Diagnosis Chest pain, unspecified type- Primary documented in this encounter [facility]* Diagnosis Missed period- Primary Abnormal finding on EKG Palpitations documented in this encounter [facility] note* Diagnosis Chest pain, unspecified type- Primary documented in this encounter [facility] note* Diagnosis Lightheadedness- Primary Dizziness and giddiness Marijuana use documented in this encounter [facility] note* Diagnosis Acute cystitis without hematuria- Primary documented in this encounter [facility] note* Diagnosis Infection due to Enterobacter cloacae- Primary Infection due to other gram-negative organisms in conditions classified elsewhere and of unspecified site Acute cystitis with hematuria documented in this encounter [facility] note* Diagnosis Pelvic pain in female- Primary Unspecified symptom associated with female genital organs Abnormal uterine bleeding (AUB) documented in this encounter [facility]* Diagnosis Pelvic pain in female- Primary Unspecified symptom associated with female genital organs documented in this encounter [facility] note* Diagnosis Missed menses- Primary Absence of menstruation documented in this encounter [facility] note* Diagnosis Gynecologic exam normal- Primary Encounter for screening for malignant neoplasm of cervix Screening for malignant neoplasm of the cervix documented in this encounter [facility] note* Diagnosis Encounter for medical examination to establish care- Primary Generalized abdominal pain Abdominal pain, generalized Special screening examination for viral disease Special screening examination for unspecified viral disease Screening for HIV (human immunodeficiency virus) Special screening examination for other specified viral diseases B12 deficiency Other B-complex deficiencies Iron deficiency anemia, unspecified iron deficiency anemia type Irritable bowel syndrome with constipation Irritable bowel syndrome Lumbar pain Lumbago Vitamin D deficiency Unspecified vitamin D deficiency [facility] Diagnosis UTI symptoms- Primary Other symptoms involving urinary system Possible exposure to STD Other specified personal history presenting hazards to health Encounter for test, result unknown documented [facility]* Diagnosis NO SHOW- Primary [facility]* Diagnosis Esthela infection- Primary Candidiasis of unspecified site [facility]* Diagnosis Screening for STD (sexually transmitted disease)- Primary Screening examination for venereal disease Dysuria Urinary tract infection with hematuria, site unspecified [facility] note* Diagnosis BV (bacterial vaginosis)- Primary Vaginitis and vulvovaginitis, unspecified [facility] Diagnosis Labial lesion- Primary Other specified noninflammatory disorder of vulva and perineum Contamination of urine culture Itching in the vaginal area Pruritus of genital organs [facility]* Diagnosis Herpes simplex vulvovaginitis- Primary Female fertility problems Female infertility of unspecified origin [facility] Diagnosis Dysuria- Primary [facility] Diagnosis examination or test, unconfirmed- Primary [facility] Diagnosis Multiple somatic complaints- Primary Other general symptoms Syncope, unspecified syncope type [facility] Diagnosis Herpes simplex vulvovaginitis- Primary UTI symptoms Other symptoms involving urinary system Dizziness Dizziness and giddiness Pituitary cyst (HCC) Other disorders of the pituitary and other syndromes of diencephalohypophyseal origin documented [facility]* Diagnosis Tremors of nervous system- Primary Abnormal involuntary movements Encounter for immunization Need for other specified prophylactic vaccination against single bacterial disease [facility]* Diagnosis Syncope, unspecified syncope type- Primary [facility]* Diagnosis Right lower quadrant abdominal pain- Primary Abdominal pain, right lower quadrant Acute vaginitis Vaginitis and vulvovaginitis, unspecified UTI symptoms Other symptoms involving urinary system documented in this encounter [facility] note* Diagnosis Lower abdominal pain- Primary Abdominal pain, other specified site documented in this encounter [facility] note* Diagnosis Epigastric abdominal pain- Primary Abdominal pain, epigastric documented in this encounter [facility] note* Diagnosis Epigastric abdominal pain- Primary Abdominal pain, epigastric documented in this encounter [facility] note* Diagnosis Hospital discharge follow-up- Primary Other follow-up examination Anxiety Anxiety state, unspecified documented in this encounter [facility] note* Diagnosis Dizziness- Primary Dizziness and giddiness documented in this encounter [facility] note* Diagnosis Increased frequency of urination- Primary Urinary frequency documented in this encounter [facility] note* Diagnosis Pelvic pain in female Unspecified symptom associated with female genital organs Abnormal uterine bleeding (AUB) documented in this encounter [facility] note* Diagnosis Anxiety- Primary Anxiety state, unspecified documented in this encounter [facility] note* Diagnosis APPOINTMENT CANCELLED- Primary documented in this encounter [facility] note* Diagnosis Missed period- Primary Irregular menstrual cycle Female fertility problems Female infertility of unspecified origin examination or test, unconfirmed Screening for thyroid disorder Hyperprolactinemia (HCC) Other and unspecified anterior pituitary hyperfunction documented in this encounter [facility] note* Diagnosis Encounter to discuss test results- Primary Other specified counseling documented in this encounter [facility] note* Diagnosis Trauma- Primary Injury, other and unspecified, unspecified site documented in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 Pain ([place]amese) documented in this encounter* Attachments The following attachments cannot be sent through Care Everywhere. 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 * Nausea and Vomiting ([place]) documented in this encounter* Attachments The following attachments cannot be sent through Care Everywhere. * Coronavirus Disease (COVID-19): General Info ([place]) * Coronavirus Disease (COVID-19): Isolation ([place]) * Flank Pain ([place]) * Nausea and Vomiting ([place]) documented in this encounter* Instructions* Giovanni Gonzáles DO - 02/08/2020 Please return to the nearest emergency department immediately for any new or worsening symptoms such as chest pain, difficulty in breathing, vomiting, fevers, or any further concerns * Attachments The following attachments cannot be sent through Care Everywhere. * Chest Contusion ([place]) * Flank Pain ([place]) documented in this encounter* Attachments The following attachments cannot be sent through Care Everywhere. * Abdominal Pain ([place]) documented in this encounter* Attachments The following attachments cannot be sent through Care Everywhere. * Constipation ([place]) * Anal Pain ([place]) documented in this encounter* Attachments The following attachments cannot be sent through Care Everywhere. * Back Pain ([place]e) * Back Pain: Sex ([place]amese) * Back: Stretches: Exercises ([place]) documented in this encounter* Instructions* Florin Nuñez PA-C - 12/15/2019 Keep your appointments with your urologist, GI doctor, and primary care physician. Take your nauseamedications as prescribed. Return to the emergency department if fever, intractable vomiting or other concerns. * Attachments The following attachments cannot be sent through Care Everywhere. * Hematuria ([place]) * Nausea and Vomiting ([place]) * Flank Pain ([place]) documented in this encounter* Instructions* Chrissy Springer PA-C - 11/29/2019 You are being discharged home with antibiotics and nausea medication. Please take this as prescribed. Please follow-up with your urologist. Return to the emergency department with any new or worsening symptoms or any concerns you may have. * Attachments The following attachments cannot be sent through Care Everywhere. * Bacterial Vaginosis ([place]) * Flank Pain ([place]amese) * Nausea and Vomiting ([place]) documented in this encounter* Instructions* Ayana Leonard PA-C - 11/25/2019 Seek medical attention if you have worsening symptoms or other concerns. Please follow up with your family doctor or one of your choosing. You may find a provider through the [facility] Physician Referral Service by calling [phone]) or by visiting [email or web address] Luli, Thank You for choosing [facility]! * Attachments The following attachments cannot be sent through Care Everywhere. * Urinary Retention ([place]amese) * Flank Pain ([place]) * Abdominal Pain ([place]) documented in this encounter* Instructions* Antwan Yeung MD - 11/11/2019 Follow-up closely with your urologist * Attachments The following attachments cannot be sent through Care Everywhere. * Indwelling Urinary Catheter Care: General Info ([place]) documented in this encounter* Attachments The following attachments cannot be sent through Care Everywhere. * Kidney Stone ([place]) documented in this encounter* Attachments The following attachments cannot be sent through Care Everywhere. * Hematuria ([place]) documented in this encounter* Discharge Instr - AVS First Page* Yan Zuñiga MD - 10/31/2019 1:20 PM EDT Home Care After Ureteroscopy The following instructions will help you care for yourself, or be cared for upon your return home today. These are guidelines for your care right after surgery only. Diet Drink plenty of liquids and eat light meals today. Start your regular diet tomorrow. Activity Start normal activities in twenty-four (24) hours. Wound Care and Hygiene No restrictions, start normal routine. Anesthesia Precautions & Expectations After anesthesia, rest for [address], drink alcoholic beverages or make any important decisions during this time. General anesthesia may cause a sore throat, jaw discomfort or muscle aches. These symptoms can last for one or two days. What to Expect after Surgery Mild pain with voiding. Frequency or urgency. Bladder cramps. Minimal bleeding with voiding. Call your Doctor Passing clots in urine preventing bladder emptying Severe pain not controlled by oral medication Temperature above 101.5 degrees Inability to urinate within eight (8) hours after surgery After Stent Placement It is common to have blood tinged urine. It is common to have pain in your side and in your back when you urinate. It is common to have urgency with urination. This is a temporary stent and will need to be pulled at the next appointment. Other Contacts Urology Department Follow up Appointment We will call you to schedule an appointment in about [address]. Zuñiga's office information: Clinic office number [phone] * Discharge Instr - Other Orders* Marlene Maguire RN - 10/31/2019 2:03 PM EDT After Surgery and Anesthesia You must have an adult drive you home from the hospital and stay with you for [address], operate machinery, cook or return to work for 24 hours or a as directed by your surgeon Do not make important personal or legal decisions or sign legal forms for 24 hours General anesthesia you may have a dry, raspy or scratchy throat. Throat lozenges or gargles may give relief Resume home medications Diet & Bowel Activity Begin with clear liquids and light foods, such as jello, lemon [place] soda, marily sarah. Progress to your normal diet if you are not nauseated No alcoholic beverages for 24 hours after surgery or while you are taking prescription pain medicine. If you have diabetes, check with your family doctor about your diet and medicine To help avoid constipation, eat a high fiber diet and drink 6-8 glasses of water each day. Stool softeners or a mild laxative may be needed if you do not have a bowel movement within 3 days of your surgery. Call your doctor for more instructions or pharmacist Activity Limit your activity for the first 24 hours. You may feel dizzy and tired from anesthesia. Be careful as you walk or climb stairs. If you have an incision, avoid activities that stress your incision Do not drive, return to work, play sports or do heavy activities until permitted by your doctor Incision care If you have a bandage on your incision, it may be removed 24 hours after surgery unless instructed otherwise by your doctor. You may shower after 24 hours. You may let water run over your incision but don t let it flow directly on the incision after your shower, pat your incision dry. If small paper-like strips are on your incision, do not remove them. You can shower with them on; pat them dry. They will either fall off or will be removed by your surgeon at your follow-up visit. If stitches/arthur are present, they will be removed in the office And ice bag may be used on the incisional site, or the point of pain unless your surgeons has said not to. Alternate use of ice (20 minutes of every hour) DO NOT place ice directly on the skin. Wrap in a thin towel. Call your surgeon right away if you have: Heavy or persistent bleeding Persistent nausea or vomiting lasting more than 6 hours Edges of incision Signs of infections: a fever over 101 degrees, increased swelling, redness, odor or drainage at theincision site Numbness, tingling, or color change of a leg or arm Trouble urinating within 8 hours or a feeling of fullness and unable to urinate Sudden, severe pain or pain not relieved by medication Questions or Concerns If you have chest pain, shortness of breath, difficulty breathing or swallowing call 911 documented in this encounter* Attachments The following attachments cannot be sent through Care Everywhere. * Back Pain ([place]) * Abdominal Pain ([place]e) * Chest Pain: Musculoskeletal ([place]e) documented in this encounter* Attachments The following attachments cannot be sent through Care Everywhere. * Constipation ([place]) * Abdominal Pain ([place]) documented in this encounter* Discharge Instr - AVS First Page* Romelia Hu MD - 03/16/2019 10:53 AM EST Try over the counter boost or protein shakes of a flavor of your liking. Explore body mind connection with biofeedback documented in this encounter* Attachments The following attachments cannot be sent through Care Everywhere. * Diarrhea ([place]e) * Abdominal Pain ([place]e) documented in this encounter* Attachments The following attachments cannot be sent through Care Everywhere. * Vertigo ([place]e) * Nausea and Vomiting ([place]amese) in this encounter* Attachments The following attachments cannot be sent through Care Everywhere. * Constipation ([place]) * Kidney Stone ([place]amese) in this encounter* Eyad Willett PA-C - 03/11/2018 Formatting of this note may be different from the original. Follow-up with your primary care provider in 1-3 days. Return to the emergency department immediately for any worsening pain, numbness or weakness to your legs, difficulty walking, difficulty urinating, loss of control of your bowel or bladder, or any new or worsening symptoms. Learning About How to Have a Healthy Back What causes back pain? Back pain is often caused by overuse, strain, or injury. For example, people often hurt their backsplaying sports or working in the yard, being jolted in a car accident, or lifting something too heavy. Aging plays a part too. Your bones and muscles tend to lose strength as you age, which makes injurymore likely. The spongy discs between the bones of the spine (vertebrae) may suffer from wear and tear and no longer provide enough cushion between the bones. A disc that bulges or breaks open (herniated disc) can press on nerves, causing back pain. In some people, back pain is the result of arthritis, broken vertebrae caused by bone loss (osteoporosis), illness, or a spine problem. Although most people have back pain at one time or another, there are steps you can take to make itless likely. How can you have a healthy back? Reduce stress on your back through good posture Slumping or slouching alone may not cause low back pain. But after the back has been strained or injured, bad posture can make pain worse. Sleep in a position that maintains your back's normal curves and on a mattress that feels comfortable. Sleep on your side with a pillow between your knees, or sleep on your back with a pillow under your knees. These positions can reduce strain on your back. Stand and sit up straight. Good posture generally means your ears, shoulders, and hips are in a straight line. If you must stand for a long time, put one foot on a stool, ledge, or box. Switch feet every now and then. Sit in a chair that is low enough to let you place both feet flat on the floor with both knees nearly level with your hips. If your chair or desk is too high, use a footrest to raise your knees. Place a small pillow, a rolled-up towel, or a lumbar roll in the curve of your back if you need extra support. Try a kneeling chair, which helps tilt your hips forward. This takes pressure off your lower back. Try sitting on an exercise ball. It can rock from side to side, which helps keep your back loose. When driving, keep your knees nearly level with your hips. Sit straight, and drive with both hands on the steering wheel. Your arms should be in a slightly bent position. Reduce stress on your back through careful lifting Squat down, bending at the hips and knees only. If you need to, put one knee to the floor and extend your other knee in front of you, bent at a right angle (half kneeling). Press your chest straight forward. This helps keep your upper back straight while keeping a slight arch in your low back. Hold the load as close to your body as possible, at the level of your belly button (navel). Use your feet to change direction, taking small steps. Lead with your hips as you change direction. Keep your shoulders in line with your hips as you move. Set down your load carefully, squatting with your knees and hips only. Exercise and stretch your back Do some exercise on most days of the week, if your doctor says it is okay. You can walk, run, swim,or cycle. Stretch your back muscles. Here are a few exercises to try: ? Lie on your back, and gently pull one bent knee to your chest. Put that foot back on the floor, and then pull the other knee to your chest. ? Do pelvic tilts. Lie on your back with your knees bent. Tighten your stomach muscles. Pull your belly button (navel) in and up toward your ribs. You should feel like your back is pressing to the floor and your hips and pelvis are slightly lifting off the floor. Hold for 6 seconds while breathing smoothly. ? Sit with your back flat against a wall. Keep your core muscles strong. The muscles of your back, belly (abdomen), and buttocks support yourspine. ? Pull in your belly and imagine pulling your navel toward your spine. Hold this for 6 seconds, then relax. Remember to keep breathing normally as you tense your muscles. ? Do curl-ups. Always do them with your knees bent. Keep your low back on the floor, and curl your shoulders toward your knees using a smooth, slow motion. Keep your arms folded across your chest. Ifthis bothers your neck, try putting your hands behind your neck (not your head), with your elbows spread apart. ? Lie on your back with your knees bent and your feet flat on the floor. Tighten your belly muscles, and then push with your feet and raise your buttocks up a few inches. Hold this position 6 secondsas you continue to breathe normally, then lower yourself slowly to the floor. Repeat 8 to 12 times. ? If you like group exercise, try Pilates or yoga. These classes have poses that strengthen the core muscles. Lead a healthy lifestyle Stay at a healthy weight to avoid strain on your back. Do not smoke. Smoking increases the risk of osteoporosis, which weakens the spine. If you need helpquitting, talk to your doctor about stop-smoking programs and medicines. These can increase your chances of quitting for good. Where can you learn more? Log into your personal health record on [email or web address] and enter L315 in the Education box to learn more about Learning About How to Have a Healthy Back. Current as of: November 24, 2017 Content Version: 11.9 2637-1904 [employer]. Care instructions adapted under license by your healthcare professional. If you have questions about a medical condition or this instruction, always ask your healthcare professional. [employer] disclaims any warranty or liability for your use of this information. Back Pain: Care Instructions Your Care Instructions Back pain has many possible causes. It is often related to problems with muscles and ligaments of the back. It may also be related to problems with the nerves, discs, or bones of the back. Moving, lifting, standing, sitting, or sleeping in an awkward way can strain the back. Sometimes you don't notice the injury until later. Arthritis is another common cause of back pain. Although it may hurt a lot, back pain usually improves on its own within several weeks. Most peoplerecover in 12 weeks or less. Using good home treatment and being careful not to stress your back can help you feel better sooner. Follow-up care is a fagan part of your treatment and safety. Be sure to make and go to all appointments, and call your doctor if you are having problems. It's also a good idea to know your test resultsand keep a list of the medicines you take. How can you care for yourself at home? Sit or lie in positions that are most comfortable and reduce your pain. Try one of these positions when you lie down: ? Lie on your back with your knees bent and supported by large pillows. ? Lie on the floor with your legs on the seat of a sofa or chair. ? Lie on your side with your knees and hips bent and a pillow between your legs. ? Lie on your stomach if it does not make pain worse. Do not sit up in bed, and avoid soft couches and twisted positions. Bed rest can help relieve pain at first, but it delays healing. Avoid bed rest after the first day of back pain. Change positions every 30 minutes. If you must sit for long periods of time, take breaks from sitting. Get up and walk around, or lie in a comfortable position. Try using a heating pad on a low or medium setting for 15 to 20 minutes every 2 or 3 hours. Try a warm shower in place of one session with the heating pad. You can also try an ice pack for 10 to 15 minutes every 2 to 3 hours. Put a thin cloth between the ice pack and your skin. Take pain medicines exactly as directed. ? If the doctor gave you a prescription medicine for pain, take it as prescribed. ? If you are not taking a prescription pain medicine, ask your doctor if you can take an fodi-ipu-navjbol medicine. Take short walks several times a day. You can start with 5 to 10 minutes, 3 or 4 times a day, and work up to longer walks. Walk on level surfaces and avoid hills and stairs until your back is better. Return to work and other activities as soon as you can. Continued rest without activity is usually not good for your back. To prevent future back pain, do exercises to stretch and strengthen your back and stomach. Learn how to use good posture, safe lifting techniques, and proper body mechanics. When should you call for help? Call your doctor now or seek immediate medical care if: You have new or worsening numbness in your legs. You have new or worsening weakness in your legs. (This could make it hard to stand up.) You lose control of your bladder or bowels. Watch closely for changes in your health, and be sure to contact your doctor if: You have a fever, lose weight, or don't feel well. You do not get better as expected. Where can you learn more? Log into your personal health record on [email or web address] and enter I594 in the Education box to learn more about Back Pain: Care Instructions. Current as of: November 24, 2017 Content Version: 11.9 3893-7007 [employer]. Care instructions adapted under license by your healthcare professional. If you have questions about a medical condition or this instruction, always ask your healthcare professional. [employer] disclaims any warranty or liability for your use of this information. in this encounter* Jessica Dickens CNP - 02/15/2018 Formatting of this note may be different from the original. Dizziness: Care Instructions Your Care Instructions Dizziness is the feeling of unsteadiness or fuzziness in your head. It is different than having vertigo, which is a feeling that the room is spinning or that you are moving or falling. It is also different from lightheadedness, which is the feeling that you are about to faint. It can be hard to know what causes dizziness. Some people feel dizzy when they have migraine headaches. Sometimes bouts of flu can make you feel dizzy. Some medical conditions, such as heart problemsor high blood pressure, can make you feel dizzy. Many medicines can cause dizziness, including medicines for high blood pressure, pain, or anxiety. If a medicine causes your symptoms, your doctor may recommend that you stop or change the medicine.If it is a problem with your heart, you may need medicine to help your heart work better. If there is no clear reason for your symptoms, your doctor may suggest watching and waiting for a while to see if the dizziness goes away on its own. Follow-up care is a fagan part of your treatment and safety. Be sure to make and go to all appointments, and call your doctor if you are having problems. It's also a good idea to know your test resultsand keep a list of the medicines you take. How can you care for yourself at home? If your doctor recommends or prescribes medicine, take it exactly as directed. Call your doctor if you think you are having a problem with your medicine. Do not drive while you feel dizzy. Try to prevent falls. Steps you can take include: Using nonskid mats, adding grab bars near the tub, and using night-lights. Clearing your home so that walkways are free of anything you might trip on. Letting family and friends know that you have been feeling dizzy. This will help them know how to help you. When should you call for help? Call 911 anytime you think you may need emergency care. For example, call if: ? You passed out (lost consciousness). ? You have dizziness along with symptoms of a heart attack. These may include: Chest pain or pressure, or a strange feeling in the chest. Sweating. Shortness of breath. Nausea or vomiting. Pain, pressure, or a strange feeling in the back, neck, jaw, or upper belly or in one or both shoulders or arms. Lightheadedness or sudden weakness. A fast or irregular heartbeat. ? You have symptoms of a stroke. These may include: Sudden numbness, tingling, weakness, or loss of movement in your face, arm, or leg, especially on only one side of your body. Sudden vision changes. Sudden trouble speaking. Sudden confusion or trouble understanding simple statements. Sudden problems with walking or balance. A sudden, severe headache that is different from past headaches. ?Call your doctor now or seek immediate medical care if: ? You feel dizzy and have a fever, headache, or ringing in your ears. ? You have new or increased nausea and vomiting. ? Your dizziness does not go away or comes back. ?Watch closely for changes in your health, and be sure to contact your doctor if: ? You do not get better as expected. Where can you learn more? Log into your personal health record on [email or web address].[email or web address] and enter Q823 in the Education box to learn more about Dizziness: Care Instructions. Current as of: January 24, 2017 Content Version: .[id number] [employer]. Care instructions adapted under license by your healthcare professional. If you have questions about a medical condition or this instruction, always ask your healthcare professional. [employer] disclaims any warranty or liability for your use of this information. Follow up closely with your family doctor if symptoms continue follow up with a neurologist as discussed. Take nausea medication as needed. in this encounter* Ryan Greco MD - 01/09/2018 Thank you for choosing us for your Emergency Care! You have undergone an emergency evaluation today. This is not a substitute for a comprehensive physical exam by a primary care provider. Please follow up with your primary care physician. There are often findings on laboratory evaluation and/or radiographic studies (x-rays, ct) that require follow up and further testing, but are not related to your emergency condition today Please follow up with your family doctor or one of your choosing. You may find a provider through the [facility] Physician Referral Service by calling [phone] ([phone]) or by visiting [email or web address] Seek medical attention immediately if you have worsening symptoms or other concerns. Luli Thank You for choosing us for your Emergency Care! The following attachments cannot be sent through Care Everywhere. * Ovarian Cyst: Ruptured (Surinamese) * Abdominal Pain (Surinamese) in this encounter The following attachments cannot be sent through Care Everywhere. * Constipation (Surinamese) * Medication Side Effects (Surinamese) in this encounter The following attachments cannot be sent through Care Everywhere. * Torticollis: Adult (Surinamese) * URI (Upper Respiratory Infection) (Surinamese) in this encounter* Pito Ortega MD - 09/20/2017 Formatting of this note may be different from the original. Concussion: Care Instructions Your Care Instructions A concussion is a kind of injury to the brain. It happens when the head receives a hard blow. The impact can jar or shake the brain against the skull. This interrupts the brain's normal activities. Although you may have cuts or bruises on your head or face, you may have no other visible signs of a brain injury. In most cases, damage to the brain from a concussion can't be seen in tests such as a CT or MRI scan. For a few weeks, you may have low energy, dizziness, trouble sleeping, a headache, ringing in your ears, or nausea. You may also feel anxious, grumpy, or depressed. You may have problems with memory and concentration. These symptoms are common after a concussion. They should slowly improve over time. Sometimes this takes weeks or even months. Someone who lives with you should know how to care foryou. Please share this and all information with a caregiver who will be available to help if needed. Follow-up care is a fagan part of your treatment and safety. Be sure to make and go to all appointments, and call your doctor if you are having problems. It's also a good idea to know your test resultsand keep a list of the medicines you take. How can you care for yourself at home? Pain control Put ice or a cold pack on the part of your head that hurts for 10 to 20 minutes at a time. Put a thin cloth between the ice and your skin. Be safe with medicines. Read and follow all instructions on the label. If the doctor gave you a prescription medicine for pain, take it as prescribed. If you are not taking a prescription pain medicine, ask your doctor if you can take an vvbs-udw-xlbnkjh medicine. Recovery Follow your doctor's instructions. He or she will tell you if you need someone to watch you closelyfor the next 24 hours or longer. Rest is the best way to recover from a concussion. You need to rest your body and your brain: Get plenty of sleep at night. And take rest breaks during the day. Avoid activities that take a lot of physical or mental work. This includes housework, exercise, schoolwork, video games, text messaging, and using the computer. You may need to change your school or work schedule while you recover. Return to your normal activities slowly. Do not try to do too much at once. Do not drink alcohol or use illegal drugs. Alcohol and illegal drugs can slow your recovery. And they can increase your risk of a second brain injury. Avoid activities that could lead to another concussion. Follow your doctor's instructions for a gradual return to activity and sports. Ask your doctor when it's okay for you to drive a car, ride a bike, or operate machinery. How should you return to activity? Your return to activity can begin after 1 to 2 days of physical and mental rest. After resting, youcan gradually increase your activity as long as it does not cause new symptoms or worsen your symptoms. Doctors and concussion specialists suggest steps to follow for returning to sports after a concussion. Use these steps as a guide. You should slowly progress through the following levels of activity: 1. Limited activity. You can take part in daily activities as long as the activity doesn't increaseyour symptoms or cause new symptoms. 2. Light aerobic activity. This can include walking, swimming, or other exercise at less than 70% of maximum heart rate. No resistance training is included in this step. 3. Sport-specific exercise. This includes running drills or skating drills (depending on the sport), but no head impact. 4. Noncontact training drills. This includes more complex training drills such as passing. The athlete may also begin light resistance training. 5. Full-contact practice. The athlete can participate in normal training. 6. Return to normal game play. This is the final step and allows the athlete to join in normal gameplay. Watch and keep track of your progress. It should take at least 6 days for you to go from light activity to normal game play. Make sure that you can stay at each new level of activity for at least 24 hours without symptoms, or as long as your doctor says, before doing more. If one or more symptoms come back, return to a lower level of activity for at least 24 hours. Don't move on until all symptoms are gone. When should you call for help? Call 911 anytime you think you may need emergency care. For example, call if: ? You have a seizure. ? You passed out (lost consciousness). ? You are confused or can't stay awake. ?Call your doctor now or seek immediate medical care if: ? You have new or worse vomiting. ? You feel less alert. ? You have new weakness or numbness in any part of your body. ?Watch closely for changes in your health, and be sure to contact your doctor if: ? You do not get better as expected. ? You have new symptoms, such as headaches, trouble concentrating, or changes in mood. Where can you learn more? Log into your personal health record on [email or web address] and enter Z711 in the Education box to learn more about Concussion: Care Instructions. Current as of: November 14, 2016 Content Version: 11.6 6972-3890 [employer]. Care instructions adapted under license by your healthcare professional. If you have questions about a medical condition or this instruction, always ask your healthcare professional. [employer] disclaims any warranty or liability for your use of this information. in this encounter* Alhaji Altman MD - 09/16/2017 WELCOME TO [facility]! The physician and staff of the Emergency Department would like to thank you for choosing our facility for your health care needs. Our goal is to provide you with exceptional service. You may be receiving a survey in the mail following your visit. Because your feedback is very important to us, we hope you will take time to complete and return the survey. If, for any reason, you feel that you cannot rate us VERY GOOD or 5 for the service you received today, please request to talk with a Patient Grinding Machine Tender rehabilitator so that we can address your concern while you are here. THANK YOU FOR CHOOSING [facility] FOR YOUR HEALTHCARE NEEDS. You have undergone an emergency evaluation today. This is not a substitute for a comprehensive physical exam by a primary care physician. Please follow up with your primary care physician. There are often findings on laboratory evaluation and/or radiographic studies (x-rays, ct) that require follow up and further testing, but are not related to your emergency condition today. The following attachments cannot be sent through Care Everywhere. * Abdominal Pain (Surinamese) * Diarrhea (Surinamese) * Nausea and Vomiting (Surinamese) in this encounter* Reanna Herring PA-C - 09/06/2017 Formatting of this note may be different from the original. Abdominal Pain: Care Instructions Your Care Instructions Abdominal pain has many possible causes. Some aren't serious and get better on their own in a few days. Others need more testing and treatment. If your pain continues or gets worse, you need to be rechecked and may need more tests to find out what is wrong. You may need surgery to correct the problem. Don't ignore new symptoms, such as fever, nausea and vomiting, urination problems, pain that gets worse, and dizziness. These may be signs of a more serious problem. Your doctor may have recommended a follow-up visit in the next 8 to 12 hours. If you are not getting better, you may need more tests or treatment. The doctor has checked you carefully, but problems can develop later. If you notice any problems ornew symptoms, get medical treatment right away. Follow-up care is a fagan part of your treatment and safety. Be sure to make and go to all appointments, and call your doctor if you are having problems. It's also a good idea to know your test resultsand keep a list of the medicines you take. How can you care for yourself at home? Rest until you feel better. To prevent dehydration, drink plenty of fluids, enough so that your urine is light yellow or clear like water. Choose water and other caffeine-free clear liquids until you feel better. If you have kidney, heart, or liver disease and have to limit fluids, talk with your doctor before you increase the amount of fluids you drink. If your stomach is upset, eat mild foods, such as rice, dry toast or crackers, bananas, and applesauce. Try eating several small meals instead of two or three large ones. Wait until 48 hours after all symptoms have gone away before you have spicy foods, alcohol, and drinks that contain caffeine. Do not eat foods that are high in fat. Avoid anti-inflammatory medicines such as aspirin, ibuprofen (Advil, Motrin), and naproxen (Aleve).These can cause stomach upset. Talk to your doctor if you take daily aspirin for another health problem. When should you call for help? Call 911 anytime you think you may need emergency care. For example, call if: ? You passed out (lost consciousness). ? You pass maroon or very bloody stools. ? You vomit blood or what looks like coffee grounds. ? You have new, severe belly pain. ?Call your doctor now or seek immediate medical care if: ? Your pain gets worse, especially if it becomes focused in one area of your belly. ? You have a new or higher fever. ? Your stools are black and look like tar, or they have streaks of blood. ? You have unexpected vaginal bleeding. ? You have symptoms of a urinary tract infection. These may include: Pain when you urinate. Urinating more often than usual. Blood in your urine. ? You are dizzy or lightheaded, or you feel like you may faint. ?Watch closely for changes in your health, and be sure to contact your doctor if: ? You are not getting better after 1 day (24 hours). Where can you learn more? Log into your personal health record on [email or web address] and enter E907 in the Education box to learn more about Abdominal Pain: Care Instructions. Current as of: January 24, 2017 Content Version: 11.6 2197-9360 [employer]. Care instructions adapted under license by your healthcare professional. If you have questions about a medical condition or this instruction, always ask your healthcare professional. [employer] disclaims any warranty or liability for your use of this information. in this encounter* Dharmesh Urbina, DO - 02/22/2017 Cervicitis: Care Instructions Your Care Instructions Cervicitis means that your cervix is inflamed. The cervix is the part of your uterus that opens into your vagina. This problem is most often caused by an infection. Some women get it after they have a sexually transmitted infection (STI). These include gonorrhea and chlamydia. It can also be caused by irritationfrom some types of control. Two examples are the cervical cap or diaphragm. Your doctor may do some tests to help find the cause of the problem. It is very important to treat cervicitis. If you don't, you could have serious health problems. Forthis reason, you may need a test after your treatment to make sure the infection is gone. Follow-up care is a fagan part of your treatment and safety. Be sure to make and go to all appointments, and call your doctor if you are having problems. It's also a good idea to know your test resultsand keep a list of the medicines you take. How can you care for yourself at home? Take your antibiotics as directed. Do not stop taking them just because you feel better. You need to take the full course of antibiotics. If your doctor prescribed antifungal medicine, use it as directed. While you are being treated, do not have sex. If your treatment is one dose of antibiotics, wait atleast 7 days after you take your medicine before you have any kind of sexual contact. Even if you use a condom, you could get infected again. It's important to tell your sex partner or partners that you have cervicitis. It may be related to an STI. Any partners should get tested and then treated if they have an STI. This is true even if they don't have symptoms. Do not douche. It can change the normal balance of substances in your vagina. Do not use tampons while you are being treated. To prevent STIs Use latex condoms every time you have sex. Use them from the start to the end of sexual contact. Talk to your partner before you have sex. Find out if he or she has or is at risk for any sexually transmitted infection (STI). Keep in mind that a person may be able to spread an STI even if he or she does not have symptoms. Do not have sex with anyone who has symptoms of an STI. These include sores on the genitals or mouth. Having one sex partner (who does not have STIs and does not have sex with anyone else) is a good way to avoid STIs. When should you call for help? Call your doctor now or seek immediate medical care if: You have new pelvic pain, or the pain in your pelvis gets worse. You have a new discharge from your vagina. You have a new or higher fever. Watch closely for changes in your health, and be sure to contact your doctor if: You do not get better as expected. Your symptoms continue or come back after treatment, or you get new symptoms. Where can you learn more? Log into your personal health record on [email or web address] [email or web address].Drive.[employer] and enter P897 in the Education box to learn more about Cervicitis: Care Instructions. Current as of: September 30, 2015 Content Version: 11.2 2850-2993 [employer]. Care instructions adapted under license by your healthcare professional. If you have questions about a medical condition or this instruction, always ask your healthcare professional. [employer] disclaims any warranty or liability for your use of this information. in this encounter* Sugden, Kina Maria A, PA-C - 05/24/2017 Diarrhea: Care Instructions Your Care Instructions Diarrhea is loose, watery stools (bowel movements). The exact cause is often hard to find. Sometimes diarrhea is your body's way of getting rid of what caused an upset stomach. Viruses, food poisoning, and many medicines can cause diarrhea. Some people get diarrhea in response to emotional stress, anxiety, or certain foods. Almost everyone has diarrhea now and then. It usually isn't serious, and your stools will return tonormal soon. The important thing to do is replace the fluids you have lost, so you can prevent dehydration. The doctor has checked you carefully, but problems can develop later. If you notice any problems ornew symptoms, get medical treatment right away. Follow-up care is a fagan part of your treatment and safety. Be sure to make and go to all appointments, and call your doctor if you are having problems. It's also a good idea to know your test resultsand keep a list of the medicines you take. How can you care for yourself at home? Watch for signs of dehydration, which means your body has lost too much water. Dehydration is a serious condition and should be treated right away. Signs of dehydration are: Increasing thirst and dry eyes and mouth. Feeling faint or lightheaded. Darker urine, and a smaller amount of urine than normal. To prevent dehydration, drink plenty of fluids, enough so that your urine is light yellow or clear like water. Choose water and other caffeine-free clear liquids until you feel better. If you have kidney, heart, or liver disease and have to limit fluids, talk with your doctor before you increase the amount of fluids you drink. Begin eating small amounts of mild foods the next day, if you feel like it. Try yogurt that has live cultures of Lactobacillus. (Check the label.) Avoid spicy foods, fruits, alcohol, and caffeine until 48 hours after all symptoms are gone. Avoid chewing gum that contains sorbitol. Avoid dairy products (except for yogurt with Lactobacillus) while you have diarrhea and for 3 days after symptoms are gone. The doctor may recommend that you take xths-vsu-tuerheu medicine, such as loperamide (Imodium), if you still have diarrhea after 6 hours. Read and follow all instructions on the label. Do not use this medicine if you have bloody diarrhea, a high fever, or other signs of serious illness. Call your doctor if you think you are having a problem with your medicine. When should you call for help? Call 911 anytime you think you may need emergency care. For example, call if: You passed out (lost consciousness). Your stools are maroon or very bloody. Call your doctor now or seek immediate medical care if: You are dizzy or lightheaded, or you feel like you may faint. Your stools are black and look like tar, or they have streaks of blood. You have new or worse belly pain. You have symptoms of dehydration, such as: Dry eyes and a dry mouth. Passing only a little dark urine. Feeling thirstier than usual. You have a new or higher fever. Watch closely for changes in your health, and be sure to contact your doctor if: Your diarrhea is getting worse. You see pus in the diarrhea. You are not getting better after 2 days (48 hours). Where can you learn more? Log into your personal health record on https://GetFresh.[email or web address] and enter W335 in the Education box to learn more about Diarrhea: Care Instructions. Current as of: August 01, 2015 Content Version: 11.2 6184-3544 [employer]. Care instructions adapted under license by your healthcare professional. If you have questions about a medical condition or this instruction, always ask your healthcare professional. [employer] disclaims any warranty or liability for your use of this information. Nausea and Vomiting: Care Instructions Your Care Instructions When you are nauseated, you may feel weak and sweaty and notice a lot of saliva in your mouth. Nausea often leads to vomiting. Most of the time you do not need to worry about nausea and vomiting, butthey can be signs of other illnesses. Two common causes of nausea and vomiting are stomach flu and food poisoning. Nausea and vomiting from viral stomach flu will usually start to improve within 24 hours. Nausea and vomiting from food poisoning may last from 12 to 48 hours. The doctor has checked you carefully, but problems can develop later. If you notice any problems ornew symptoms, get medical treatment right away. Follow-up care is a fagan part of your treatment and safety. Be sure to make and go to all appointments, and call your doctor if you are having problems. It's also a good idea to know your test resultsand keep a list of the medicines you take. How can you care for yourself at home? To prevent dehydration, drink plenty of fluids, enough so that your urine is light yellow or clear like water. Choose water and other caffeine-free clear liquids until you feel better. If you have kidney, heart, or liver disease and have to limit fluids, talk with your doctor before you increase the amount of fluids you drink. Rest in bed until you feel better. When you are able to eat, try clear soups, mild foods, and liquids until all symptoms are gone for 12 to 48 hours. Other good choices include dry toast, crackers, cooked cereal, and gelatin dessert, such as Jell-O. When should you call for help? Call 911 anytime you think you may need emergency care. For example, call if: You passed out (lost consciousness). Call your doctor now or seek immediate medical care if: You have symptoms of dehydration, such as: Dry eyes and a dry mouth. Passing only a little dark urine. Feeling thirstier than usual. You have new or worsening belly pain. You have a new or higher fever. You vomit blood or what looks like coffee grounds. Watch closely for changes in your health, and be sure to contact your doctor if: You have ongoing nausea and vomiting. Your vomiting is getting worse. Your vomiting lasts longer than 2 days. You are not getting better as expected. Where can you learn more? Log into your personal health record on https://HOSTEXt.Germin8 and enter H591 in the Education box to learn more about Nausea and Vomiting: Care Instructions. Current as of: August 01, 2015 Content Version: 11.2 2427-1770 [employer]. Care instructions adapted under license by your healthcare professional. If you have questions about a medical condition or this instruction, always ask your healthcare professional. [employer] disclaims any warranty or liability for your use of this information. in this encounter Instructions * Patient Instructions - Lakeisha Luna MD - 01/23/2018 1:29 PM EST Caring for Dry Skin Always use lukewarm water when possible. Avoid extreme temperatures, i.e. very HOT or COLD water. Do NOT vigorously scrub when you clean your skin. Use the minimum soap possible. Some examples of mild soaps include unscented Dove, Basis, and Cetaphil. The only areas of the skin that require soap on a regular basis are the face, armpits, groin and feet. Bathing time should be 10-20 minutes. Do NOT use bubble bath. After bathing, PAT your skin lightly with a towel. Do not rub or scrub. ALWAYS apply a moisturizer immediately after bathing. This helps to lock-in moisture. Use your moisturizer several times a day to your whole body. Cerave or cetaphil cream (in a jar) isrecommended. Do not use products such as powders, perfumes or colognes on your skin. Use unscented hypo-allergenic laundry products such as All Free and Clear. If the skin is still very dry, you can try DOUBLE-RINSING your clothes. The second rinse should NOT include any detergent. Remember to apply prescription creams to affected areas only. It is best to use moisturizers and prescription creams at DIFFERENT times during the day. If applied at the same time, always apply the prescription cream FIRST and use the moisturizers on unaffectedskin with no rash to avoid interfering with the action of the prescription cream. Avoid tight or scratchy clothing such as wool or acrylic. Always wash new clothes before wearing for the first time. in this encounter History of Present Illness * Lakeisha Luna MD - 01/23/2018 1:15 PM EST Formatting of this note may be different from the original. CC: Chief Complaint Patient presents with Follow-up intrinsic atopic dermatitis has flarred up, allergic to hydrocortisone HPI: Luli Johnson is an 27 y.o. year old female with the following complaints: - flared eczema Duration: years Location: chest, arms, legs Associated Symptoms: itching, cracking, scaling Severity: 6/10 Modifying factors/treatments tried: topical steroids, IM kenalog Narrative/Interval History: Here for follow up. Eczema is flared. Says the tub of medicine that wasprescribed last time put her in the ER because of burning, itching, and hives. Says she is allergicto hydrocortisone and the pharmacy told her this was a similar medication. Going to start trying toget in March so would like something that is safe. Previously liked Clobetasol solution filled with Cerave cream. History of skin cancer? no Personal: Here with mom and son. ROS Constitutional: no current fevers/chills Skin: no additional itchy or painful skin lesions Physical Exam: WD, WN, NAD, A&O x 3. Exam included: Face Lids Lips Neck Chest Back R arm L arm R leg L leg All normal except: - Eczematous pink plaques and patches on wrists, antecubital fossae, medial and lateral arms, knees, upper chest. Path / Imaging / Lab Data: None Impression/Plan: 1. Intrinsic atopic dermatitis - Currently flared. Only using Vaseline. No evidence of impetigo. - Reports allergy to Hydrocortisone cream. Also says she had allergic reaction to Triamcinolone ointment prescribed at last visit, sent her to the ER. Will avoid Class A and B topical steroids. - Of note, going to start trying to get in March. - Start betamethasone valerate 0.1 % Cream; Apply 1-2 times per day to active eczema. Will call if cream form is burning and we can try ointment. - triamcinolone (KENALOG-40) injection 40 mg; Inject 1 mL intramuscularly Once (In Clinic). - Can use Zyrtec as needed for itching. Says she has an allergy to Benadryl. - In reserve: phototherapy 2. Alopecia totalis - Of long duration. Previously failed many therapies, not a concern today. Return in about 3 months (around 04/25/2018). Prescriptions written or refilled today include: Requested Prescriptions Signed Prescriptions Disp Refills betamethasone valerate 0.1 % Cream 45 g 2 Sig: Apply 1-2 times per day to active eczema. -Referring Provider for today's consult: Self, Self Allergies / Medications / Immunizations: The patient is allergic to bactrim; benadryl [diphenhydramine hcl]; ciprofloxacin; hydrocortisone; and sulfa antibiotics. The patient has a current medication list which includes the following prescription(s): ammonium lactate, aripiprazole, benztropine, cvs fiber gummy bears children, epinephrine, ondansetron, polyethylene glycol,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 Outpatient Medications: ARIPiprazole (ABILIFY) 5 MG tablet, Take 5 mg by mouth nightly ., Disp: , Rfl: ascorbate calcium (VITAMIN C ORAL), Take 1 tablet by mouth daily ., Disp: , Rfl: benztropine (COGENTIN) 0.5 MG tablet, Take 0.5 mg by mouth every evening ., Disp: , Rfl: bran/gum/fib/daniel/psyl/kelp/pec (FIBER 6 ORAL), Take 3 tablets by mouth daily Benifiber chew ., Disp: , Rfl: cholecalciferol, vitamin D3, (VITAMIN D3 ORAL), Take 1 tablet by mouth daily ., Disp: , Rfl: fluconazole (Diflucan) 150 MG tablet, Take 1 (one) tablet (150 mg total) by mouth once as needed (may repeat in 3 days) ., Disp: 2 tablet, Rfl: 1 magnesium citrate solution, Take 296 mL by mouth once for 1 dose ., Disp: 296 mL, Rfl: 0 naproxen (NAPROSYN) 250 MG tablet, Take 250 mg by mouth 2 (two) times a day as needed ., Disp: , Rfl: ondansetron (ZOFRAN-ODT) 4 MG disintegrating tablet, Dissolve 1 (one) tablet (4 mg total) on top oftongue every 6 (six) hours as needed ., Disp: 20 tablet, Rfl: 0 vitamin with Ca-Iron-FA 27-1 mg Tab, Take 1 tablet by mouth every morning ., Disp: , Rfl: No current facility-administered medications for this visit. REVIEW OF SYSTEMS: Reviewed unchanged from 10/25/2019 PHYSICAL EXAM: CONSTITUTIONAL: VITAL SIGNS: There were no vitals filed for this visit. General: NAD Cardiovascular: RRR Gastrointestinal: Soft, non tender, non distended Back: No CVA tenderness Musculoskeletal: No edema Skin: warm, dry Neuro: Alert, oriented x3. No deficits. Psych: Mood appropriate. DATA: IMAGING: I personally reviewed the patient's recent CT scan images. I discussed the results in the office today with the patient. We went over the pertinent levels of the scan and I interpreted the findings for the patient. The patient verbalized understanding of my interpretation. Ct Abdomen Pelvis With Iv Contrast Only Result Date: 2019 1. There is a prominent amount of gas within the small bowel with a few scattered air-fluid levels.Small bowel remains nondilated without discrete point of transition. Findings suggest mild ileus. 2. Right ureteral stent is present. There is mild dilatation of the right intrarenal collecting system and right ureter without associated stone along the course of the right ureter. There is a 3.5 mm nonobstructive right intrarenal calculus. Findings may reflect underlying stent dysfunction. Enhancement of the kidneys remains symmetric. 3. Small amount of pelvic free fluid, likely physiologic. LAB: I have personally reviewed the patient's lab results below. Creatinine Date Value Ref Range Status 11/05/2019 0.51 0.40 - 1.10 mg/dL Final 09/27/2013 0.60 0.40 - 1.10 mg/dL Final Hemoglobin Date Value Ref Range Status 11/05/2019 10.5 (L) 12.0 - 16.0 g/dL Final 2019 10.6 (L) 12.0 - 16.0 g/dL Final 11/03/2019 11.2 (L) 12.0 - 16.0 g/dL Final 09/27/2013 14.4 12.0 - 16.0 g/dL Final 08/18/2013 13.5 12.0 - 16.0 g/dL Final 12/29/2011 15.2 12.0 - 16.0 g/dL Final PVR by bladder scan 415 mL ASSESSMENT / PLAN: 1. Urinary retention -We discussed the options of Reaves catheter versus intermittent catheterization. I think that is best if we just leave a Reaves catheter given her numerous emergency room visits. Nursing staff placed Reaves catheter with 400 mL output. -She does not have a bowel movement 3 days. I do think that constipation plus anesthesia plus pain meds are likely all contributing. -I have sent magnesium citrate to her pharmacy. I have asked her to take half a bottle today and ifdaryl does not have a bowel movement then take the other half bottle. We will plan on seeing her later this week for catheter removal. She will call with any problems. Yan Zuñiga documented in this encounter* Kyle Irvin MD - 11/14/2019 1:28 AM EDT The patient called the after-hours line this morning to report that she is feeling bilateral back pain diarrhea, and a headache. She rates this as a 6 out of 10 but does not localize it to either side in particular. She states that it does improve with ibuprofen or Tylenol but she has avoided ibuprofen due to it upsetting her stomach. She was in the ER about the same time last night and a urinalysis performed which did show many bact eria. It looks like therefore she was placed on Keflex. Urineculture is still pending. When I spoke to her about 18 hours ago, she reported intermittent leakagearound the catheter consistent with what sounded to be bladder spasms. She continues to report intermittent urine leakage from the vaginal area. She is scheduled to have her voiding trial on Tuesday. I explained to her what bladder spasms were and stated that i f her pain was controlled, it sounded safe for her to wait till the morning to be in touch with Dr. Zuñiga's office. If pain worsened or she began having fevers, chills, worsening headache, I recommended that she head to the emergency department. I told her I did pass this information along to Dr. Zuñiga and his team with the hopes they can get in touch with her tomorrow. documented in this encounter* Kyle Irvin MD - 11/16/2019 2:05 AM EDT Patient called the after-hours line this evening at 1:30 am with concern about diarrhea and nausea.She was also worried about the Klebsiella infections because she had not heard of that before. She has an appointment in the morning but wondered if the cephalexin was appropriate to cover the Klebsiella. Also she was wondering what to do for the diarrhea. She continues to have discomfort from the catheter. I encouraged her to try yo gurt or probiotics and to show up for her appointment for the voiding trial at 10 AM. It does look like Keflex should be appropriate. I do not suspect that clean intermittent catheterization will be a good option for Ms. Johnson. documented in this encounter* Adamaris Landry, RN - 11/16/2019 9:58 AM EDT Patient came in to do TOV for second time. Filled patient with 350 cc of sterile saline. Patient will ambulate around to see if she can urinate. Patient could not urinate. Bladder scan- 400 ml Inserted 16F reaves catheter. Filled 10cc saline into balloon. Immediately drained 400 ml of clear yellow urine Patient tolerated well documented in this encounter* Kyle Irvin MD - 11/17/2019 5:54 PM EDT Patient called with bilateral flank pain, constant, not improved with ibuprofen. Having nausea and not been able to keep food down. Still feels sore from the catheter. History of kidney stones. Recommended if the pain is not controlled she be seen in the ED. documented in this encounter* Haseeb Herrera Sr., MD - 11/18/2019 8:12 AM EDT [facility] Observation Progress Note 11/18/2019 Luli Johnson 1990 [id number] Assessment/Plan: Luli Johnson is a 29 y.o. female with a history of alopecia, hx of kidney stones and depression who presented to [facility] Observation 11/17/2019 with bilateral flank pain/nausea/vomiting. On admit: Temp 100.6, UA with large blood/large leuks, >[address] A/P with bladder wall thickening and right- sided nephrolithiasis without obstruction. 1. Acute UTI: Recent culture positive for Klebsiella oxytocin and Klebsiella pneumoniae both sensitive to cefazolin which was started on admission, continued. 2. Urinary Retention: requiring chronic reaves catheter. Follows with Dr. Martínez (urology) as outpatient. 3. Nausea/Vomiting: Reported x3 days prior to admission. She reported trying multiple antiemetics in the past none of which have been very helpful. Continued ondansetron as needed. 4. Right Sided Nephrolithiasis: with known history. Follows with Dr. Martínez (urology) as outpatient who knows about stone, no planned intervention at this time. 5. Depression/Anxiety: On Abilify prior to admission, continued. Current Living Situation: home Estimated discharge date: TB Subjective: Patient new to me. Pertinent laboratory and imaging studies reviewed in Epic and summarized above. She reported 10/10 left flank pain as well as 5/10 right flank pain. She reported nausea but no vomiting during the night. She reported trying multiple antiemetics in the past including Reglan, Compazine, Phenergan, Haldol and Zofran without improvement. Physical Exam: BP 113/80 (BP Location: Left arm, Patient Position: Lying) Pulse 96 Temp 97.6 F (36.4 C) (Oral) Resp 12 Ht 5' Wt 55.5 kg (122 lb 6.4 oz) SpO2 97% BMI 23.90 kg/m General: NAD. Eyes: EOMI ENT: neck supple Cardiovascular: Regular rate. Respiratory: Clear to auscultation, normal effort. Gastrointestinal: Soft, non tender. Genitourinary: Reaves catheter in place. She reported pain with light touch of the left flank. Musculoskeletal: No edema. No calf tenderness. Skin: warm, dry she is wearing a wig. Neuro: Alert. No focal deficits noted. Psych: Mood appropriate. Labs, Imaging and Studies reviewed: Lab Results Component Value Date GLUCOSE 88 11/18/2019 CALCIUM 8.8 11/18/2019 NA 141 11/18/2019 K 4.1 11/18/2019 CL 108 11/18/2019 BUN 9 11/18/2019 CREATININE 0.56 11/18/2019 Lab Results Component Value Date WBC 5.89 11/18/2019 HGB 9.8 (L) 11/18/2019 HCT 30.7 (L) 11/18/2019 MCV 86.0 11/18/2019 PLT 194 11/18/2019 Lab Results Component Value Date ALT 10 11/17/2019 AST 14 11/17/2019 GGT 16 12/29/2011 ALKPHOS 47 11/17/2019 BILITOT 0.4 11/17/2019 Lab Results Component Value Date INR 1.0 03/19/2015 documented in this encounter* Yan Zuñiga MD - 11/20/2019 2:11 PM EDT DATE: 11/20/2019 CHIEF COMPLAINT: Chief Complaint Patient presents with other L flank pain. catheter in. infection-atb therapy HISTORY OF PRESENT ILLNESS: Luli Johnson is a 29 y.o. female who underwent ureteroscopy on 10/31/2019. Unfortunately, she had issues with stent discomfort. She had her stent removed in the ED on 11/04. She presented to clinic on 11/05 with the inability to empty her bladder completely. She was noted to be in retention and a catheter was placed. She had failed void trial twice. Unfortunately, she hashad numerous ED visits in the interim. She will have bladder spasms, but is unable to void. She is not on anticholinergics. She is being treated for a UTI. She went to the ED yesterday with nausea and flank pain. No fevers, chills, nausea, or vomiting today. HISTORY: PMH Past Medical History: Diagnosis Date ADD (attention deficit disorder) Alopecia Alopecia areata Anxiety with depression Eczema Hypotension IBS (irritable bowel syndrome) Irregular menstrual cycle Mental disorder DEPRESSION AND ANGER ISSUE,ANXIETY Neoplasm of pituitary gland Preeclampsia Vasovagal syncope PSH Past Surgical History: Procedure Laterality Date CYSTO MAGGI LASER, RETRO, URETEROSCOPY, STENT (USUAL) Right 10/31/2019 Procedure: CYSTOSCOPY,RIGHT RETROGRADE PYELOGRAM, RIGHT URETEROSOCPY,; basket stone extraction RIGHT URETERAL STENT PLACEMENT; Surgeon: Yan Zuñiga MD; Location: [facility] Main OR; Service: Urology CYSTO RETRO STONE MANIPULATION STENT INSERTION Right 11/05/2019 Procedure: CYSTOSCOPY WITH RIGHT STENT REMOVAL; Surgeon: Yan Zuñiga MD; Location: [facility]; Service: Urology OTHER SURGICAL HISTORY wisdom teeth SH Social History Socioeconomic History Marital status: Single Spouse name: Not on file Number of children: Not on file Years of education: Not on file Highest education level: Not on file Occupational History Not on file Social Needs Financial resource strain: Not on file Food insecurity Worry: Not on file Inability: Not on file Transportation needs Medical: Not on file Non-medical: Not on file Tobacco Use Smoking status: Never Smoker Smokeless tobacco: Never Used Substance and Sexual Activity Alcohol use: No Drug use: No Sexual activity: Yes Partners: Male Lifestyle Physical activity Days per week: Not on file Minutes per session: Not on file Stress: Not on file Relationships Social connections Talks on phone: Not on file Gets together: Not on file Attends faith service: Not on file Active member of club or organization: Not on file Attends meetings of clubs or organizations: Not on file Relationship status: Not on file Other Topics Concern Not on file Social History Narrative Not on file FH Family History Problem Relation Age of Onset Hypertension Mother Hypertension Maternal Grandfather ALLERGIES AND MEDICATIONS Allergies: Cat dander, Ciprofloxacin-hydrocortisone, Tree nuts, Sulfasalazine, Ciprofloxacin, Diphenhydramine,Diphenhydramine hcl, Hydrocortisone, Sulfa (sulfonamide antibiotics), and Sulfamethoxazole-trimethoprim Current Outpatient Medications: ARIPiprazole (ABILIFY) 5 MG tablet, Take 5 mg by mouth nightly ., Disp: , Rfl: ascorbate calcium (VITAMIN C ORAL), Take 1 tablet by mouth daily ., Disp: , Rfl: benztropine (COGENTIN) 0.5 MG tablet, Take 0.5 mg by mouth every evening ., Disp: , Rfl: bran/gum/fib/daniel/psyl/kelp/pec (FIBER 6 ORAL), Take 3 tablets by mouth daily Benifiber chew ., Disp: , Rfl: cephALEXin (KEFLEX) 500 MG capsule, Take 1 (one) capsule (500 mg total) by mouth 4 (four) times a day for 7 days ., Disp: 28 capsule, Rfl: 0 cholecalciferol, vitamin D3, (VITAMIN D3 ORAL), Take 1 tablet by mouth daily ., Disp: , Rfl: naproxen (NAPROSYN) 250 MG tablet, Take 250 mg by mouth 2 (two) times a day as needed ., Disp: , Rfl: vitamin with Ca-Iron-FA 27-1 mg Tab, Take 1 tablet by mouth every morning ., Disp: , Rfl: bethanechol (URECHOLINE) 10 MG tablet, Take 1 (one) tablet (10 mg total) by mouth 3 (three) times aday for 10 days ., Disp: 30 tablet, Rfl: 0 ondansetron (ZOFRAN-ODT) 4 MG disintegrating tablet, Dissolve 1 (one) tablet (4 mg total) on top oftongue every 6 (six) hours as needed ., Disp: 20 tablet, Rfl: 0 REVIEW OF SYSTEMS: Reviewed unchanged from 10/25/2019 PHYSICAL EXAM: CONSTITUTIONAL: VITAL SIGNS: Vitals: 11/20/19 1319 BP: 125/80 Pulse: 96 Temp: 98.3 F (36.8 C) Weight: 56.2 kg (124 lb) Height: 5' General: NAD Cardiovascular: RRR Gastrointestinal: Soft, non tender, non distended Back: No CVA tenderness Musculoskeletal: No edema Skin: warm, dry Neuro: Alert, oriented x3. No deficits. Psych: Mood appropriate. DATA: IMAGING: I personally reviewed the patient's recent CT scan images. I discussed the results in the office today with the patient. We went over the pertinent levels of the scan and I interpreted the findings for the patient. The patient verbalized understanding of my interpretation. Ct Abdomen Pelvis With Iv Contrast Only Result Date: 11/17/2019 1. The bladder is decompressed with a Reaves catheter in position. There is bladder wall thickening which is most likely due to underdistention. Cystitis cannot be excluded. 2. There are no other acute abnormalities. 3. Right-sided nephrolithiasis is again noted. No evidence of urinary obstruction. LAB: I have personally reviewed the patient's lab results below. Creatinine Date Value Ref Range Status 11/18/2019 0.56 0.40 - 1.10 mg/dL Final 09/27/2013 0.60 0.40 - 1.10 mg/dL Final Hemoglobin Date Value Ref Range Status 11/18/2019 9.8 (L) 12.0 - 16.0 g/dL Final 11/17/2019 12.1 12.0 - 16.0 g/dL Final 11/05/2019 10.5 (L) 12.0 - 16.0 g/dL Final 09/27/2013 14.4 12.0 - 16.0 g/dL Final 08/18/2013 13.5 12.0 - 16.0 g/dL Final 12/29/2011 15.2 12.0 - 16.0 g/dL Final ASSESSMENT / PLAN: 1. Urinary retention 2. UTI - continue keflex - maintain reaves catheter for now - discussed that her meds (Abilify and benztropine) can both cause urinary retention. However, I think the side effects of taking her off of these outweigh any potential benefit. We will try bethanechol to see if this helps. There is any role for Flomax at this time. -She was given information about performing clean intermittent catheterization. I have asked her tolook at her catheter in the mirror. To start to be comfortable with this idea. We will plan on seeing her back on Tuesday for a void trial at that time. -We discussed that my goals are to get out her catheter safely to get her voiding again and to try and keep her out of the emergency room. Again we will keep the Reaves catheter in place and try for void trial on Tuesday. If she is unable to void at that time, then we will have her begin to clean intermittent catheterization. She does not appear constipated on her CT scan and I do not see any othermedications that could be causing retention except as above. I expect that she will be able to voidwith time. Yan Zuñiga documented in this encounter* Tyrell Loco MD - 11/21/2019 6:43 PM EDT Patient called with significant bladder spasms with indwelling reaves for urinary retention after ureteroscopy. She wants the reaves taken out tonight. I explained that I could not give anticholinergics as I wouldn t want her to go into retention again. Bladder spasms may be occurring from catheter irritation or symptomatic UTI. I offered her pyridium but she was not interested. If she cannot tolerate symptoms I think it s reas onable to get it removed sooner than this Tuesday when she is scheduled to have it done. She stated she did not want to wait and would be going to theER for reaves pull. documented in this encounter* Jad Hollins MD - 11/28/2019 7:51 PM EDT Telephone note: Pt called the after hours MD line at 3 am this morning and again this evening, each time reporting symptoms of bladder pain unrelieved by self cath. This evening she also reported emesis throughout the day. Denies fevers, hematuria, or difficulty with cath. I initially recommended that the patient come in for evaluation in the office today, and this evening I recommended she come to an ER/urgent care for evaluation of these symptoms. Jad Hollins [facility] documented in this encounter* Jenny Cruz MSW LSW - 12/15/2019 3:24 AM EDT DISCHARGE PLAN PROGRESS NOTE Date: 12/15/2019 Time: 3:25 AM Patient Name: Luli Johnson Date of : 1990 Sex: Female FABIAN arranged transportation home with [facility] [employer] [facility] # is [id number]. documented in this encounter* Jenny Cruz MSW LSW - 02/08/2020 5:55 AM EST DISCHARGE PLAN PROGRESS NOTE Date: 02/08/2020 Time: 5:56 AM Patient Name: Luli Johnson Date of : 1990 Sex: Female FABIAN met with pt due to pt having frequent visits to the ED. Pt reports that her providers use to be with [facility] and she has been trying to transition to [place] providers. Pt reports that she has terminated her services with [facility] provider and has been on a waiting list with [place] [facility]. Pt agrees that CM can f/u with her about her medical needs to try to reduce ED visits. [facility] messagedCM for f/u. documented in this encounter* Jenny Cruz MSW LSW - 02/08/2020 5:55 AM EST DISCHARGE PLAN PROGRESS NOTE Date: 02/08/2020 Time: 5:56 AM Patient Name: Luli Johnson Date of : 1990 Sex: Female FABIAN met with pt due to pt having frequent visits to the ED. Pt reports that her providers use to be with [facility] and she has been trying to transition to [place] providers. Pt reports that she has terminated her services with [facility] provider and has been on a waiting list with [place] [facility]. Pt agrees that CM can f/u with her about her medical needs to try to reduce ED visits. FABIAN messagedCM for f/u. documented in this encounter* Adamaris Landry, RN - 11/22/2019 1:10 PM EDT Called patient today for an update. She had her catheter taken out yesterday and has been able to intermittently cath herself at home. Ordered CIC supplies to be sent to her home. documented in this encounter* Florinda Pratt PA-C - 12/07/2019 8:39 AM EDT /CONSULT NOTE Patient Name: Luli Johnson Admit Date: MR #: [id number] : 1990 Assessment and Plan: Bladder stone Right flank pain Suprapubic discomfort - improved Urine culture negative. Symptoms improving. Continue straining urine for stone, please send patienthome with strainer. Will send request to sergeant of officers to arrange outpatient follow up with Dr. Zuñiga. Assessment Detail: The total time spent for this visit was 50 minutes. Greater than 50% of the time was spent in counseling and coordination of care regarding flank pain, bladder stone. Thank you for this consult. Please call with questions. Kelly Pratt PA-C [facility] [phone] Physicians: Mercedez Cotto, LAWANDA (Family); No ref. provider found (Referring) Chief Complaint/Reason for Visit: Chief Complaint Patient presents with Emesis Fatigue Flank Pain History of Present Illness: Luli Johnson is a 29 y.o. y/o female presenting from home with c/o Chief Complaint Patient presents with Emesis Fatigue Flank Pain Patient reports right flank pain remains but lower abdominal pain has improved. She states no issues with urination but still has not had her bladder stone pass. History: Past Medical History: Diagnosis Date ADD (attention deficit disorder) Alopecia Alopecia areata Anxiety with depression Eczema Hypotension IBS (irritable bowel syndrome) Irregular menstrual cycle Mental disorder DEPRESSION AND ANGER ISSUE,ANXIETY Neoplasm of pituitary gland Preeclampsia Vasovagal syncope Past Surgical History: Procedure Laterality Date CYSTO MAGGI LASER, RETRO, URETEROSCOPY, STENT (USUAL) Right 10/31/2019 Procedure: CYSTOSCOPY,RIGHT RETROGRADE PYELOGRAM, RIGHT URETEROSOCPY,; basket stone extraction RIGHT URETERAL STENT PLACEMENT; Surgeon: Yan Zuñiga MD; Location: [facility] Main OR; Service: Urology CYSTO RETRO STONE MANIPULATION STENT INSERTION Right 11/05/2019 Procedure: CYSTOSCOPY WITH RIGHT STENT REMOVAL; Surgeon: Yan Zuñiga MD; Location: [facility] [place]; Service: Urology OTHER SURGICAL HISTORY wisdom teeth Family History Problem Relation Age of Onset Hypertension Mother Hypertension Maternal Grandfather Social History Socioeconomic History Marital status: Single Spouse name: Not on file Number of children: Not on file Years of education: Not on file Highest education level: Not on file Occupational History Not on file Social Needs Financial resource strain: Not on file Food insecurity Worry: Not on file Inability: Not on file Transportation needs Medical: Not on file Non-medical: Not on file Tobacco Use Smoking status: Never Smoker Smokeless tobacco: Never Used Substance and Sexual Activity Alcohol use: No Drug use: No Sexual activity: Yes Partners: Male Lifestyle Physical activity Days per week: Not on file Minutes per session: Not on file Stress: Not on file Relationships Social connections Talks on phone: Not on file Gets together: Not on file Attends faith service: Not on file Active member of club or organization: Not on file Attends meetings of clubs or organizations: Not on file Relationship status: Not on file Other Topics Concern Not on file Social History Narrative Not on file Allergy Information: I have reviewed the patient's allergies. Cat dander, Ciprofloxacin-hydrocortisone, Tree nuts, Sulfasalazine, Ciprofloxacin, Diphenhydramine,Diphenhydramine hcl, Hydrocortisone, Sulfa (sulfonamide antibiotics), and Sulfamethoxazole-trimethoprim Home Medications: Outpatient Medications as of 12/05/2019 Medication Sig ARIPiprazole (ABILIFY) 5 MG tablet Take 5 mg by mouth nightly . ascorbate calcium (VITAMIN C ORAL) Take 1 tablet by mouth daily . benztropine (COGENTIN) 0.5 MG tablet Take 0.5 mg by mouth every evening . bethanechol (URECHOLINE) 10 MG tablet Take 1 (one) tablet (10 mg total) by mouth 3 (three) times a day . bran/gum/fib/daniel/psyl/kelp/pec (FIBER 6 ORAL) Take 3 tablets by mouth daily Benifiber chew . cholecalciferol, vitamin D3, (VITAMIN D3 ORAL) Take 1 tablet by mouth daily . dicyclomine (BENTYL) 10 MG capsule Take 10 mg by mouth 4 (four) times a day as needed . metoclopramide (REGLAN) 5 MG tablet Take 1 (one) tablet (5 mg total) by mouth 3 (three) times a dayas needed . [] metroNIDAZOLE (FLAGYL) 500 MG tablet Take 1 (one) tablet (500 mg total) by mouth 2 (two) times a day with meals for 7 days . naproxen (NAPROSYN) 250 MG tablet Take 250 mg by mouth 2 (two) times a day as needed . ondansetron (ZOFRAN-ODT) 4 MG disintegrating tablet Dissolve 1 (one) tablet (4 mg total) on top of tongue every 6 (six) hours as needed . vitamin with Ca-Iron-FA 27-1 mg Tab Take 1 tablet by mouth every morning . cephALEXin (KEFLEX) 500 MG capsule Take 500 mg by mouth 2 (two) times a day For 5 days . Review of Systems: The following system(s) were reviewed and are negative unless otherwise noted in the HPI: All othersystems reviewed and negative other than HPI Physical Examination: Vital Signs: BP 106/72 (Patient Position: Lying) Pulse 66 Temp 97.5 F (36.4 C) (Oral) Resp 16 Ht 5' Wt55.3 kg (122 lb) LMP 11/07/2019 SpO2 100% BMI 23.83 kg/m General appearance: alert, appears stated age, cooperative and no distress Head: Normocephalic, without obvious abnormality, atraumatic Eyes: conjunctiva clear Neck: supple, symmetrical, trachea midline Back: right CVA tenderness, none left Lungs: RRR Heart: regular rate and rhythm Abdomen: soft, tenderness reported right anterior flank, little to no pain over lower abdomen Extremities: extremities normal, atraumatic, no cyanosis or edema Skin: Skin color, texture, turgor normal. No rashes or lesions Neurologic: Grossly normal Laboratory and Additional Data Reviewed: Results from last 7 days Lab Units 12/06/19 0415 12/05/19 1824 SODIUM mmol/L 141 145 POTASSIUM mmol/L 3.6 3.9 CHLORIDE mmol/L 110* 108 BUN mg/dL 14 15 CREATININE mg/dL 0.55 0.72 GLUCOSE mg/dL 83 86 CALCIUM mg/dL 8.5 -- Results from last 7 days Lab Units 12/06/19 0415 12/05/19 1824 WBC K/mcL 5.87 6.07 HGB g/dL 11.2* 12.3 HCT % 36.0 37.9 PLT K/mcL 216 268 MONOS% % -- 7.6 Us Renal And Bladder Result Date: 12/05/2019 EXAMINATION: US RENAL AND BLADDER HISTORY: ORDERING SYSTEM PROVIDED HISTORY: Right flank pain. TECHNOLOGIST PROVIDED HISTORY: Illness/Other Reason for exam: Right flank pain. Cancer History: Surgery,RadiationHistory: Encounter Type: Initial Additional signs and symptoms: ORDERING SYSTEM PROVIDED DIAGNOSIS CODES: N20.0 Nephrolithiasis R10.9 Flank pain R11.2 Intractable vomiting with nausea, unspecified vomiting type COMPARISON: CT kidney stone from November 28, 2019. TECHNIQUE: Sonographic images of the kidneys and bladder were performed. FINDINGS: The right kidney measures 10.5 x 4.8 x 3.8 cm and demonstrates an unremarkable sonographic appearance without hydronephrosis or discrete nephrol ithiasis. The left kidney measures 9.8 x 4.4 x 4.7 cm and demonstrates an unremarkable sonographic appearance without hydronephrosis or discrete nephrolithiasis. There is a small echogenic structure within the right aspect of the bladder, measuring approximately 8 mm, potentially representing a bladder calculus, possibly having passed from the right kidney given that previously noted small right renal calculus on recent CT is not well delineated on this exam. No sonographic evidence of hydronephrosis. Small echogenic structure within the right aspect of thebladder, measuring approximately 8 mm, potentially representing a bladder calculus, possibly havingpassed from the right kidney given that previously noted small right renal calculus on recent CT isnot well delineated on this exam. Correlation with urinalysis and follow-up CT kidney stone are advisable for more complete characterization/assessment. Workstation ID: [id number] Ct Kidney Stone Result Date: 11/28/2019 EXAMINATION: CT SCAN ABDOMEN AND PELVIS WITHOUT CONTRAST 11/28/2019 HISTORY: ORDERING SYSTEM PROVIDED HISTORY: left flank pain, TECHNOLOGIST PROVIDED HISTORY: Illness/Other Reason for exam: left flankpain Encounter Type: Initial Additional signs and symptoms: left flank pain ORDERING SYSTEM PROVIDED DIAGNOSIS CODES: COMPARISON: 11/17/2019. TECHNIQUE: Multiple computerized tomographic images were performed from the domes of the diaphragm through the pelvis without the use of any contrast. Multiplanar reconstructions are submitted. Dose reduction techniques were achieved by using: automated exposure control and/or adjustment of mA and/or kV according to patient size and/or use of iterative reconstruction technique. FINDINGS: The visualized lung bases are clear. CT ABDOMEN: The imaged portions of the liver and spleen are homogeneous. The pancreas is normal in size and attenuation. The gallbladder is only partially distended. The adrenal glands are not enlarged. The kidneys are symmetrical in size. There is no hydronephrosis bilaterally. In the right kidney, there is a 4.6 mm nonobstructing stone. The aortoiliac system is not enlarged. The appendix is not inflamed. There is fecal debris seen in the colon. CT PELVIS: The uterus is prominent in size. A small amount of pelvic fluid is s een and is most likely physiological. Urinary bladder is distended without defect seen. MUSCULOSKELETAL FINDINGS: No acute osseous abnormality. 1. Nonobstructive 4.6 mm stone on the right kidney. 2. No hydronephrosis or other sign of obstructive uropathy. 3. No evidence of appendicitis. [employer] Workstation ID: [id number] * Morena Loomis MD - 12/06/2019 8:39 AM EDT [facility] Observation Progress Note 12/06/2019 Luli Johnson 1990 [id number] Assessment/Plan: Luli Johnson is a 29 y.o. female with a history of alopecia, anxiety/depression, IBS-C, ADD, and kidney stones with recent [facility] admission (11/16-11/19/19) with bilateral flank pain, treated for UTI. She presented to [facility] 12/05/2019 with right-sided flank pain. COVID neg. Renal US with likely stoned passed and now in bladder. Urology followed and recommended conservative management. 1. Nephrolithiasis: third visit over the past week for right-sided flank pain, has known right sided nephrolithiasis for which she follows with Dr. Zuñiga (Urology). S/p ureteroscopy on 10/31/19 with stent placement, stent removed 11/05/19. Recent CT kidney stone 11/28/19 with 4.6 mm renal calculus without evidence of obstruction. Renal US with no hydronephrosis, 8mm potentially representing bladder calculus, possibly having passed from right kidney. Urology evaluated; no plans for intervetion. 2. Acute UTI: urine culture 11/28/19 +E coli. Prescribed Keflex outpatient which was started on 12/05/19, however given R flank pain concerning for early pyelo, transitioned to IV Rocephin, deescalate as able. 3. Intractable N/V: Given IV zofran in ED with improvement. Continued supportive care with IVFs, antiemetics. 4. Urinary Retention: per hx. Follows with Dr. Zuñiga (Urology). Continued bethanechol. 5. Bacterial Vaginosis: recently diagnosed, continued Flagyl (stop date 12/06/19). 6. Anxiety/Depression: per hx. Continued home abilify and cogentin. 7. DVT Prophylaxis: Low risk, ambulate Current living situation: Lives with mother Expected Disposition: Same Estimated discharge date: 12/07/19 Subjective: Pt is new to me today. Records reviewed including labs, vital signs, imaging, and prior notes. Pt still with mild bladder pressure and N/V this morning. On IV/PO pain meds and Zofran. Continued Rocephin. Physical Exam: BP 102/67 (BP Location: Right arm, Patient Position: Lying) Pulse 70 Temp 97.8 F (36.6 C) (Oral) Resp 16 Ht 5' Wt 55.3 kg (122 lb) LMP 11/07/2019 SpO2 100% BMI 23.83 kg/m General: NAD Eyes: EOMI ENT: neck supple Cardiovascular: Regular rate. Respiratory: Clear to auscultation Gastrointestinal: Soft, non tender Genitourinary: no suprapubic tenderness Musculoskeletal: No edema. Skin: warm, dry Neuro: Alert. Psych: Mood appropriate. Labs, Imaging and Studies reviewed: Lab Results Component Value Date GLUCOSE 83 12/06/2019 CALCIUM 8.5 12/06/2019 NA 141 12/06/2019 K 3.6 12/06/2019 CL 110 (H) 12/06/2019 BUN 14 12/06/2019 CREATININE 0.55 12/06/2019 Lab Results Component Value Date WBC 5.87 12/06/2019 HGB 11.2 (L) 12/06/2019 HCT 36.0 12/06/2019 MCV 90.5 12/06/2019 PLT 216 12/06/2019 Lab Results Component Value Date ALT 10 11/17/2019 AST 14 11/17/2019 GGT 16 12/29/2011 ALKPHOS 47 11/17/2019 BILITOT 0.4 11/17/2019 Lab Results Component Value Date INR 1.0 03/19/2015 documented in this encounter* Yan Zuñiga MD - 04/26/2020 8:18 PM EST Patient called the exchange. She had a miscarriage about 1 month ago. She has had increasing constipation with straining. She feels like she now has a flap of tissue hanging down which is causing pain. She says this is 12/14. Recommended that she seek further evaluation in the ED given pain and potential for prolapse. documented in this encounter* Irene Scott LSW - 11/07/2019 8:32 AM EDT DISCHARGE PLAN PROGRESS NOTE Date: 11/07/2019 Time: 8:32 AM Patient Name: Luli Johnson Date of : 1990 Sex: Female DEPUTY SHERIFF BAILIFF informed pt needs assistance with transport home. Met with pt at bedside to verify demographicson face sheet. Pt does have [facility] medicaid. Called to [facility] and spoke with dispatcher [facility]; confirmation #[id number]. Indicated transport will pick pt up btw 8:40 am to 9:39 am; and that pt will receive a call 15 mins before transport arrive. Provided pt with a copy of transport confirmation and updated bedside RN, who indicated that pt is okay to discharge. DEPUTY SHERIFF BAILIFF walked pt to the ED entrance; no further need reported to this DEPUTY SHERIFF BAILIFF by the pt. documented in this encounter* Kyle Irvin MD - 01/22/2020 7:42 PM EST The patient called office after hours Having been discharged from [facility] this morning. She states she was in the hospital for constipation, nausea, and 10 out of 10 right back pain. She states she is still having the 10 out of 10 pain as well as the nausea. She did have a small bowel movement but it was mostly liquidy. She thinks her skin is becoming more red as well as notes there is wrinkling easier. Additionall y she says she passed out this afternoon which is unlike her. She was told that before leaving [facility] her platelets were 78,000 and this has her concerned as well. I suggested to her that if her pain is that significant and she still having the constipation with nausea and vomiting, she may need to be seen again. I expressed that I did not think she need to worry about the platelets being at 78,000 as long as she was not having a ny bleeding. She said she did plan to go back to the emergency department. documented in this encounter Reason for Referral Status Reason Specialty Diagnoses / Procedures Referred By Contact Referred To Contact Authorized Specialty Services Required/Patie nt's Best Interest Physical Therapy / Rehabilitation Diagnoses Pelvic pain Yan Zuñiga MD [address] [place] [address] Status Reason Specialty Diagnoses / Procedures Referre d By Contact Referred To Contact Closed Urology Diagnoses Dysuria Zeny Huggins CNM [address] [place] [address] [facility] [address] [place] [address] Specialty Diagnoses / Procedures Referred By Contac t Referred To Contact Procedures ECG Helen Pinzon MD [address] [place] [address] Referral ID Status Reason Start Date Expiration Date V isits Requested Visits Authorized [id number] New Request 06/01/2021 06/26/2022 1 1 Specialty Diagnoses / Procedures Referred By Contac t Referred To Contact Ophthalmology Diagnoses Encounter for medical examination to establish care Procedures CONSULT TO OPHTHALMOLOGY OFFICE/OUTPATIENT [facility] 60-74 MINUTES Finn Elise PA-C [id number] [place] [address] [address] [place] [address] Referral ID Status Reason Start Date Expiration Date Visits Requested Visits Authorized [id number] Authorized PCP Requested Referral 05/14/2022 05/14/2023 1 1 Specialty Diagnoses / Procedures Referred By Contac t Referred To Contact [facility] Diagnoses Lumbar pain Procedures CONSULT TO PHYSICAL THERAPY PHYSICAL THERAPY EVALUATION HIGH COMPLEX 45 MINS Finn Elise PA-C [id number] [place] [address] [address] [place] [address] [facility] [address] [address] Referral ID Status Reason Start Date Expiration Date Visits Requested Visits Authorized [id number] Pending Review Auto-Generat ed Referral 05/14/2022 05/14/2023 1 1 Specialty Diagnoses / Procedures Referred By Contac t Referred To Contact Gastroenterology Diagnoses Irritable bowel syndrome with constipation Procedures CONSULT TO GASTROENTEROLOGY OFFICE/OUTPATIENT [facility] 60-74 MINUTES Finn Elise PA-C [address] [place] [address] Referral ID Status Reason Start Date Expiration Date Visits Requested Visits Authorized [id number] Authorized PCP Requested Referral 05/14/2022 05/14/2023 1 1 Specialty Diagnoses / Procedures Referred By Contac t Referred To Contact Diagnoses Female fertility problems Procedures CONSULT TO INFERTILITY CLINIC OFFICE/OUTPATIENT [facility] 60-[place] [address] [place] [address] Referral ID Status Reason Start Date Expiration Date Visits Requested Visits Authorized [id number] Authorized PCP Requested Referral Auto-Generate d Referral 06/17/2022 06/17/2023 1 1 Specialty Diagnoses / Procedures Referred By Contac t Referred To Contact Neurology Diagnoses Dizziness Pituitary cyst (HCC) Procedures CONSULT TO NEUROLOGY OFFICE/OUTPATIENT [facility] 60-74 MINUTES Ana Brandt PA-C [address] [place] [address] Referral ID Status Reason Start Date Expiration Date Visits Requested Visits Authorized [id number] Authorized PCP Requested Referral 07/07/2022 07/07/2023 1 1 Specialty Diagnoses / Procedures Referred By Contac t Referred To Contact Gastroenterology Diagnoses Epigastric abdominal pain Procedures CONSULT TO GASTROENTEROLOGY OFFICE/OUTPATIENT [facility] 60-[place] [address] [place] [address] Referral ID Status Reason Start Date Expiration Date Visits Requested Visits Authorized [id number] Authorized PCP Requested Referral 08/31/2022 08/31/2023 1 1 Specialty Diagnoses / Procedures Referred By Contac t Referred To Contact Neurology Diagnoses Stenosis of right vertebral artery Diplopia Vertigo Procedures CONSULT TO NEUROLOGY OFFICE/OUTPATIENT [facility] 60 [place] [address] [place] [address] Referral ID Status Reason Start Date Expiration Date Visits Requested Visits Authorized [id number] Authorized PCP Requested Referral 05/19/2023 05/18/2024 1 1 Specialty Diagnoses / Procedures Referred By Contac t Referred To Contact Ent - Otolaryngology Diagnoses Dizziness Nausea and vomiting, unspecified vomiting type Procedures CONSULT TO ENT OFFICE/OUTPATIENT [facility] 60 MINUTES Finn Elise PA-C [address] [place] [address] Referral ID Status Reason Start Date Expiration Date Visits Requested Visits Authorized [id number] Authorized PCP Requested Referral 07/14/2023 07/13/2024 1 1 Advance Directives No Advanced Directives Records FoundLatest Code Status on File Code Status Date Activated Date Inactivated Comments Full Code 03/20/2015 8:49 AM 03/22/2015 3:27 PM Full Code 03/19/2015 1:50 PM 03/20/2015 8:49 AM Full Code 03/15/2015 1:29 PM 03/15/2015 4:42 PM Full Code 02/17/2015 10:30 AM 02/17/2015 1:09 PM Documents on File Type Date Recorded Patient Grinding Machine Tender Expl anation Advance Directives and Livin g Will 02/15/2018 1:54 PM Advance Directives and Livin g Will 03/11/2018 9:35 AM Advance Directives and Livin g Will 03/30/2018 7:51 PM Advance Directives and Livin g Will 12/07/2018 9:35 PM Documents on File Type Date Recorded Patient Grinding Machine Tender Expl anation Advance Directives and Livin g Will 03/10/2019 1:54 PM Advance Directives and Livin g Will 03/11/2018 9:35 AM Advance Directives and Livin g Will 03/30/2018 7:51 PM Advance Directives and Livin g Will 03/15/2019 9:35 PM Documents on File Type Date Recorded Patient Grinding Machine Tender Expl anation Advance Directives and Livin g Will 03/10/2019 1:54 PM Advance Directives and Livin g Will 03/11/2018 9:35 AM Advance Directives and Livin g Will 03/30/2018 7:51 PM Advance Directives and Livin g Will 10/16/2019 12:00 AM Documents on File Type Date Recorded Patient Grinding Machine Tender Expl anation Advance Directives and Livin g Will 03/10/2019 1:54 PM Advance Directives and Livin g Will 03/11/2018 9:35 AM Advance Directives and Livin g Will 03/30/2018 7:51 PM Advance Directives and Livin g Will 10/25/2019 8:54 PM Documents on File Type Date Recorded Patient Grinding Machine Tender Expl anation Advance Directives and Livin g Will 03/10/2019 1:54 PM Advance Directives and Livin g Will 03/11/2018 9:35 AM Advance Directives and Livin g Will 03/30/2018 7:51 PM Advance Directives and Livin g Will 11/01/2019 9:17 AM Latest Code Status on File Code Status Date Activated Date Inactivated Comments Full Code 11/01/2019 10:35 AM Full Code 03/20/2015 8:49 AM 03/22/2015 3:27 PM Full Code 03/19/2015 1:50 PM 03/20/2015 8:49 AM Full Code 03/15/2015 1:29 PM 03/15/2015 4:42 PM Full Code 02/17/2015 10:30 AM 02/17/2015 1:09 PM Documents on File Type Date Recorded Patient Grinding Machine Tender Expl anation Advance Directives and Livin g Will 03/10/2019 1:54 PM Advance Directives and Livin g Will 03/11/2018 9:35 AM Advance Directives and Livin g Will 03/30/2018 7:51 PM Advance Directives and Livin g Will 11/01/2019 9:17 AM Latest Code Status on File Code Status Date Activated Date Inactivated Comments Full Code 11/01/2019 10:35 AM 11/02/2019 4:19 PM Full Code 03/20/2015 8:49 AM 03/22/2015 3:27 PM Documents on File Type Date Recorded Patient Grinding Machine Tender Expl anation Advance Directives and Livin g Will 03/10/2019 1:54 PM Advance Directives and Livin g Will 03/11/2018 9:35 AM Advance Directives and Livin g Will 03/30/2018 7:51 PM Advance Directives and Livin g Will 11/03/2019 9:17 AM Latest Code Status on File Code Status Date Activated Date Inactivated Comments Full Code 11/03/2019 11:03 PM 2019 5:13 PM Full Code 11/01/2019 10:35 AM 11/02/2019 4:19 PM Documents on File Type Date Recorded Patient Grinding Machine Tender Expl anation Advance Directives and Livin g Will 03/10/2019 1:54 PM Advance Directives and Livin g Will 03/11/2018 9:35 AM Advance Directives and Livin g Will 03/30/2018 7:51 PM Advance Directives and Livin g Will 2019 8:14 PM Latest Code Status on File Code Status Date Activated Date Inactivated Comments Full Code 2019 11:27 PM 11/05/2019 8:54 PM Full Code 11/03/2019 11:03 PM 2019 5:13 PM Documents on File Type Date Recorded Patient Grinding Machine Tender Expl anation Advance Directives and Livin g Will 03/10/2019 1:54 PM Advance Directives and Livin g Will 03/11/2018 9:35 AM Advance Directives and Livin g Will 03/30/2018 7:51 PM Advance Directives and Livin g Will 11/11/2019 8:19 AM Documents on File Type Date Recorded Patient Grinding Machine Tender Expl anation Advance Directives and Livin g Will 03/10/2019 1:54 PM Advance Directives and Livin g Will 03/11/2018 9:35 AM Advance Directives and Livin g Will 03/30/2018 7:51 PM Advance Directives and Livin g Will 11/13/2019 8:19 AM Documents on File Type Date Recorded Patient Grinding Machine Tender Expl anation Advance Directives and Livin g Will 03/10/2019 1:54 PM Advance Directives and Livin g Will 03/11/2018 9:35 AM Advance Directives and Livin g Will 03/30/2018 7:51 PM Advance Directives and Livin g Will 11/14/2019 8:19 AM Documents on File Type Date Recorded Patient Grinding Machine Tender Expl anation Advance Directives and Livin g Will 03/10/2019 1:54 PM Advance Directives and Livin g Will 03/11/2018 9:35 AM Advance Directives and Livin g Will 03/30/2018 7:51 PM Advance Directives and Livin g Will 11/17/2019 8:05 PM Latest Code Status on File Code Status Date Activated Date Inactivated Comments Full Code 11/17/2019 10:57 PM 11/19/2019 12:09 PM Full Code 2019 11:27 PM 11/05/2019 8:54 PM Documents on File Type Date Recorded Patient Grinding Machine Tender Expl anation Advance Directives and Livin g Will 03/10/2019 1:54 PM Advance Directives and Livin g Will 03/11/2018 9:35 AM Advance Directives and Livin g Will 03/30/2018 7:51 PM Advance Directives and Livin g Will 11/21/2019 8:05 PM Documents on File Type Date Recorded Patient Grinding Machine Tender Expl anation Advance Directives and Livin g Will 03/10/2019 1:54 PM Advance Directives and Livin g Will 03/11/2018 9:35 AM Advance Directives and Livin g Will 03/30/2018 7:51 PM Advance Directives and Livin g Will 11/25/2019 9:05 PM Documents on File Type Date Recorded Patient Grinding Machine Tender Expl anation Advance Directives and Livin g Will 03/10/2019 1:54 PM Advance Directives and Livin g Will 03/11/2018 9:35 AM Advance Directives and Livin g Will 03/30/2018 7:51 PM Advance Directives and Livin g Will 11/28/2019 9:05 PM Documents on File Type Date Recorded Patient Grinding Machine Tender Expl anation Advance Directives and Livin g Will 03/10/2019 1:54 PM Advance Directives and Livin g Will 03/11/2018 9:35 AM Advance Directives and Livin g Will 03/30/2018 7:51 PM Advance Directives and Livin g Will 12/15/2019 1:45 AM Latest Code Status on File Code Status Date Activated Date Inactivated Comments Full Code 12/05/2019 11:40 PM 12/07/2019 3:09 PM Full Code 11/17/2019 10:57 PM 11/19/2019 12:09 PM Documents on File Type Date Recorded Patient Grinding Machine Tender Expl anation Advance Directives and Livin g Will 03/10/2019 1:54 PM Advance Directives and Livin g Will 03/11/2018 9:35 AM Advance Directives and Livin g Will 03/30/2018 7:51 PM Advance Directives and Livin g Will 01/14/2020 11:57 PM Latest Code Status on File Code Status Date Activated Date Inactivated Comments Full Code 12/25/2019 4:05 AM 12/25/2019 7:13 PM Full Code 12/05/2019 11:40 PM 12/07/2019 3:09 PM Documents on File Type Date Recorded Patient Grinding Machine Tender Expl anation Advance Directives and Livin g Will 03/10/2019 1:54 PM Advance Directives and Livin g Will 03/11/2018 9:35 AM Advance Directives and Livin g Will 03/30/2018 7:51 PM Advance Directives and Livin g Will 01/23/2020 12:40 AM Documents on File Type Date Recorded Patient Grinding Machine Tender Expl anation Advance Directives and Livin g Will 03/10/2019 1:54 PM Advance Directives and Livin g Will 03/11/2018 9:35 AM Advance Directives and Livin g Will 03/30/2018 7:51 PM Advance Directives and Livin g Will 01/29/2020 12:40 AM Documents on File Type Date Recorded Patient Grinding Machine Tender Expl anation Advance Directives and Livin g Will 03/10/2019 1:54 PM Advance Directives and Livin g Will 03/11/2018 9:35 AM Advance Directives and Livin g Will 03/30/2018 7:51 PM Advance Directives and Livin g Will 02/04/2020 8:23 PM Documents on File Type Date Recorded Patient Grinding Machine Tender Expl anation Advance Directives and Livin g Will 03/10/2019 1:54 PM Advance Directives and Livin g Will 03/11/2018 9:35 AM Advance Directives and Livin g Will 03/30/2018 7:51 PM Advance Directives and Livin g Will 02/08/2020 8:23 PM Documents on File Type Date Recorded Patient Grinding Machine Tender Expl anation Advance Directives and Livin g Will 03/10/2019 1:54 PM Advance Directives and Livin g Will 03/11/2018 9:35 AM Advance Directives and Livin g Will 03/30/2018 7:51 PM Advance Directives and Livin g Will 04/06/2020 7:04 PM Documents on File Type Date Recorded Patient Grinding Machine Tender Expl anation Advance Directives and Livin g Will 03/10/2019 1:54 PM Advance Directives and Livin g Will 03/11/2018 9:35 AM Advance Directives and Livin g Will 03/30/2018 7:51 PM Advance Directives and Livin g Will 12/05/2019 10:27 PM Documents on File Type Date Recorded Patient Grinding Machine Tender Expl anation Advance Directives and Livin g Will 03/10/2019 1:54 PM Advance Directives and Livin g Will 03/11/2018 9:35 AM Advance Directives and Livin g Will 03/30/2018 7:51 PM Advance Directives and Livin g Will 04/26/2020 9:23 PM Documents on File Type Date Recorded Patient Grinding Machine Tender Expl anation Advance Directives and Livin g Will 03/10/2019 1:54 PM Advance Directives and Livin g Will 03/11/2018 9:35 AM Advance Directives and Livin g Will 03/30/2018 7:51 PM Advance Directives and Livin g Will 11/07/2019 8:19 AM Documents on File Type Date Recorded Patient Grinding Machine Tender Expl anation Advance Directives and Livin g Will 03/10/2019 1:54 PM Advance Directives and Livin g Will 03/11/2018 9:35 AM Advance Directives and Livin g Will 03/30/2018 7:51 PM Advance Directives and Livin g Will 05/13/2020 9:23 PM Documents on File Type Date Recorded Patient Grinding Machine Tender Expl anation Advance Directives and Livin g Will 03/10/2019 1:54 PM Advance Directives and Livin g Will 03/11/2018 9:35 AM Advance Directives and Livin g Will 03/30/2018 7:51 PM Advance Directives and Livin g Will 09/30/2019 7:12 PM Documents on File Type Date Recorded Patient Grinding Machine Tender Expl anation Advance Directives and Livin g Will 03/10/2019 1:54 PM Advance Directives and Livin g Will 03/11/2018 9:35 AM Advance Directives and Livin g Will 03/30/2018 7:51 PM Advance Directives and Livin g Will 06/07/2020 3:53 AM Documents on File Type Date Recorded Patient Grinding Machine Tender Expl anation Advance Directives and Livin g Will 03/10/2019 1:54 PM Advance Directives and Livin g Will 03/11/2018 9:35 AM Advance Directives and Livin g Will 03/30/2018 7:51 PM Advance Directives and Livin g Will 07/03/2020 11:12 PM Latest Code Status on File Code Status Date Activated Date Inactivated Comments Full Code 07/04/2020 9:31 AM 07/04/2020 8:16 PM Full Code 12/25/2019 4:05 AM 12/25/2019 7:13 PM Documents on File Type Date Recorded Patient Grinding Machine Tender Expl anation Advance Directives and Livin g Will 03/10/2019 1:54 PM Advance Directives and Livin g Will 03/11/2018 9:35 AM Advance Directives and Livin g Will 03/30/2018 7:51 PM Advance Directives and Livin g Will 07/08/2020 8:04 AM Documents on File Type Date Recorded Patient Grinding Machine Tender Expl anation Advance Directives and Livin g Will 03/10/2019 1:54 PM Advance Directives and Livin g Will 03/11/2018 9:35 AM Advance Directives and Livin g Will 03/30/2018 7:51 PM Advance Directives and Livin g Will 07/17/2020 6:13 PM Documents on File Type Date Recorded Patient Grinding Machine Tender Expl anation Advance Directives and Livin g Will 08/03/2020 3:31 AM Advance Directives and Livin g Will 03/10/2019 1:54 PM Advance Directives and Livin g Will 03/30/2018 7:51 PM Advance Directives and Livin g Will 03/11/2018 9:35 AM Latest Code Status on File Code Status Date Activated Date Inactivated Comments Full Code 08/03/2020 6:23 AM 08/03/2020 5:55 PM Full Code 07/04/2020 9:31 AM 07/04/2020 8:16 PM Documents on File Type Date Recorded Patient Grinding Machine Tender Expl anation Advance Directives and Livin g Will 08/09/2020 1:16 AM Advance Directives and Livin g Will 03/10/2019 1:54 PM Advance Directives and Livin g Will 03/30/2018 7:51 PM Advance Directives and Livin g Will 03/11/2018 9:35 AM Documents on File Type Date Recorded Patient Grinding Machine Tender Expl anation Advance Directives and Livin g Will 08/22/2020 10:03 PM Advance Directives and Livin g Will 03/10/2019 1:54 PM Advance Directives and Livin g Will 03/30/2018 7:51 PM Advance Directives and Livin g Will 03/11/2018 9:35 AM Documents on File Type Date Recorded Patient Grinding Machine Tender Expl anation Advance Directives and Livin g Will 08/26/2020 10:03 PM Advance Directives and Livin g Will 03/10/2019 1:54 PM Advance Directives and Livin g Will 03/30/2018 7:51 PM Advance Directives and Livin g Will 03/11/2018 9:35 AM Documents on File Type Date Recorded Patient Grinding Machine Tender Expl anation Power of Comfort Filler Documents on File Type Date Recorded Patient Grinding Machine Tender Expl anation Power of Comfort Filler Latest Code Status on File Code Status Date Activated Date Inactivated Comments Full Code 06/23/2020 7:49 AM Full Code 01/22/2020 4:45 AM 06/23/2020 7:49 AM Full Code 04/24/2014 9:35 PM 04/24/2014 9:46 PM Latest Code Status on File Code Status Date Activated Date Inactivated Comments Full Code 12/03/2022 3:45 AM Question Answer Comments Full Code Order Discussed With: Patient Code Status History Code Status Date Activated Date Inactivated Comments Full Code 12/03/2022 3:05 AM 12/03/2022 3:09 AM Question Answer Comments Full Code Order Discussed With: Patient Latest Code Status on File Code Status Date Activated Date Inactivated Comments Full Code 12/03/2022 3:45 AM 12/04/2022 6:12 PM Question Answer Comments Full Code Order Discussed With: Patient Latest Code Status on File Code Status Date Activated Date Inactivated Comments Full Code 12/03/2022 3:45 AM 12/04/2022 6:12 PM Question Answer Comments Full Code Order Discussed With: Patient Code Status History Code Status Date Activated Date Inactivated Comments Full Code 12/03/2022 3:05 AM 12/03/2022 3:09 AM Question Answer Comments Full Code Order Discussed With: Patient Latest Code Status on File Code Status Date Activated Date Inactivated Comments Full Code 12/03/2022 3:45 AM 12/04/2022 6:12 PM Question Answer Comments Full Code Order Discussed With: Patient Code Status History Code Status Date Activated Date Inactivated Comments Full Code 12/03/2022 3:05 AM 12/03/2022 3:09 AM Question Answer Comments Full Code Order Discussed With: Patient Date Activated Date Inactivated Comments 12/03/2022 3:45 AM 12/04/2022 6:12 PM Question Answer Comments Full Code Order Discussed With: Patient Date Activated Date Inactivated Comments 12/03/2022 3:05 AM 12/03/2022 3:09 AM Question Answer Comments Full Code Order Discussed With: Patient Date Activated Date Inactivated Comments 12/03/2022 3:45 AM 12/04/2022 6:12 PM Question Answer Comments Full Code Order Discussed With: Patient Date Activated Date Inactivated Comments 12/03/2022 3:05 AM 12/03/2022 3:09 AM Question Answer Comments Full Code Order Discussed With: Patient Date Activated Date Inactivated Comments 04/20/2024 8:01 PM Question Answer Comments Plan of Care: Code Status Discussion Completed Decision Maker: Patient Hospital Course * Romelia Hu MD - 03/16/2019 10:26 AM EST SHORT STAY UNIT OBSERVATION DISCHARGE NOTE Assessment and Plan Luli Johnson is a 28 y.o. female patient of Mercedez Cotto CNP with history of Attention deficit disorder, Depression, Anxiety, IBS and IBS presented with nausea, vomiting and abdominal pain. Nausea, vomiting and abdominal pain Longstanding history of nausea and emesis and abdominal cramping for more than 2 years; carries a diagnosis of IBS. Per care everywhere-patient had gastric emptying study 02/08/2019 which was inconclusive due to vomiting; normal EGD 01/26/2019-has an upcoming appointment 05/01/2019 with gastroenterology at [facility] CT abdomen/pelvis 03/25/2027 without acute findings Afebrile, no leukocytosis, lipase and liver enzymes normal. UA and urine drug screen unremarkable. Continue to home Bentyl, Pepcid, Reglan, Phenergan and Zofran Advised patient to keep GI appointment with [facility], explore mind-body connection with biofeedback, take protein supplements [id number] to keep nutrition Right acute otitis media Was seen by her PCP on 03/13/19 and started on Cefdinir x10 days Continued Cefdinir Vaginal candidiasis Complaining of thick vaginal discharge UA appears to be contaminated and she is denying dysuria, urgency or frequency She has been taking Cefdinir since 03/13/19 for acute otitis media Her PCP already sent over prescription for Diflucan per Care Everywhere notes Anxiety and depression Stable mood Noted multiple ER visits and telephone calls to PCP every 2-3 days with different complaints Compliant with medications History of IBS Follows with GI at [facility] Continue home Bentyl, Reglan and Pepcid Patient able to be discharged safely from Short Stay Unit with appropriate follow up with PCP Pending labs/testing include none Subjective Still unable to keep food down. Per nurse patient ordered oatmeal this morning- took few spoons, then started coughing and throw up. Patient denies and using emesis. Had a long conversation with her she has had years of similar symptoms. Had a recent endoscopy in January of last year which was unremarkable. She is set to see GI end of April-is [facility] Discussed labs which do not show any evidence of dehydration, TROY, electrolyte abnormalities or protein malnutrition. She is wondering if she needs a colonoscopy. She has all the necessary medications at home Physical Exam General: no acute distress, on room air CV: regular rate and rhythm; no murmur, rubs, gallops Resp: lungs clear to auscultation bilaterally Abdomen: soft, non-tender, non-distended, positive bowel sounds Neuro: no gross deficits Flat affect Disposition The patient was appropriately risk stratified for observation level of care. I had a [id number] encounter with the patient on the day of discharge which included an appropriate physical exam. Discharge instructions and follow-up care were discussed in person with the patient. documented in this encounter* Morena Loomis MD - 11/02/2019 9:16 AM EDT [facility] DISCHARGE SUMMARY Luli Johnson Account: [id number] Admitted: 11/01/2019 Discharge Date/Time: 11/02/19 12:37 PM Clinical Summary Handoff to PCP Routine hospital follow up Clinical summary: Luli Johnson is a 28 y.o. female with a history of Nephrolithiasis and depression/anxeity who underwent cystoscopy and laser lithotripsy of calculi with R ureteral stent placement as OP by Dr. Zuñiga (urology) on 10/31/19. Presented to [facility] Observation 11/01/2019 with reports of hematuria, and right flank pain. Expected after above procedure. Urology followed. Supportive care. 1. Hematuria and right flank pain post Nephrolithiasis treatment: patient follows with Dr. Zuñigaand saw him 10/25/19 for ongoing R flank pain and removal of R kidney stone. S/p cystoscopy and laser lithotripsy of calculi with R ureteral stent placement as OP on 10/31/19 and presenting as above. UA with large amount blood. Hgb stable. Cr wnl. Already on Keflex and Flomax. Has Rx for [place] and Naproxen. Urology followed; expected presentation post procedure, supportive care. The stent is scheduled to be removed next Tuesday11/06/[address] Zuñiga. 2. Candidal Vulvovaginitis: patient with hx of recurrent. Reported vaginal itching and white discharge. Took 1 dose diflucan 10/31/19. . 3. Anxiety/Depression: per history, continued Abilify and cogentin Discharge Medications Medication List CONTINUE taking these medications ARIPiprazole 5 MG tablet Commonly known as: ABILIFY benztropine 0.5 MG tablet Commonly known as: COGENTIN cephALEXin 500 MG capsule Commonly known as: KEFLEX Take 1 (one) capsule (500 mg total) by mouth 3 (three) times a day for 7 days . dicyclomine 10 MG capsule Commonly known as: BENTYL Take 1 (one) capsule (10 mg total) by mouth 3 (three) times a day as needed (Abdominal cramping) . FIBER 6 ORAL fluconazole 150 MG tablet Commonly known as: Diflucan Take 1 (one) tablet (150 mg total) by mouth once as needed (may repeat in 3 days) . HYDROcodone-acetaminophen 5-325 mg per tablet Commonly known as: NORCO Take 1 (one) tablet by mouth every 6 (six) hours as needed for pain (Days supply per fill: 3) . naproxen 250 MG tablet Commonly known as: NAPROSYN ondansetron 4 MG disintegrating tablet Commonly known as: ZOFRAN-ODT Dissolve 1 (one) tablet (4 mg total) on top of tongue every 6 (six) hours as needed . vitamin with Ca-Iron-FA 27-1 mg Tab tamsulosin 0.4 mg capsule Commonly known as: FLOMAX Take 1 (one) capsule (0.4 mg total) by mouth daily for 14 days . VITAMIN C ORAL VITAMIN D3 ORAL STOP taking these medications medroxyPROGESTERone 10 MG tablet Commonly known as: PROVERA polyethylene glycol 17 gram powder Commonly known as: MIRALAX Physician(s) Family: Mercedez Cotto CNP, , Address: [address] [place] [address] / [place] [address] Follow Up: Yan Zuñiga MD [address] [facility] [address] [facility] [address] Schedule an appointment as soon as possible for a visit [facility] Emergency Department [address] [place] [id number] Go to If symptoms worsen Laboratory Follow Up by [facility]: Additional Information: Patient seen and examined day of discharge. For more information regarding patient's care, including complete radiology reports, please contact [facility] at Patient instructions, including activity, were given to the patient/family at discharge. Please seethe After Visit Summary in the medical record for details. Completed by: Morena Loomis on 11/02/19, 12:37 PM documented in this encounter* Reanna Rowley, - 2019 11:16 AM EDT [facility] DISCHARGE SUMMARY Luli Johnson Account: [id number] Admitted: 11/03/2019 Discharge Date/Time: 11/04/19 11:18 AM Clinical Summary Handoff to PCP Routine hospital follow up Luli Johnson is a 28 y.o. female with a history of nephrolithiasis, vassovagal syncope and depression/anxiety with recent lithotripsy and right ureteral stent placement 10/31/19 and OBS admission 11/01/19 for pain control who presented to [facility] Observation 11/03/2019 with abdominal pain, nausea/vomiting in context of ureteral stent. CT scan with mild ileus and some urteral dilation consistent with stent failure. Labs WNL. Symptoms improved. Urology followed. Stable for follow up on Tuesday to have stent removed. 1. Nephrolithiasis: patient follows with Dr. Zuñiga and saw him 10/25/19 for ongoing R flank pain and removal of 5mm R kidney stone. S/p cystoscopy with Dr. Zuñiga 10/31/19. Has had continued rightflank pain, hematuria and nausea/vomiting. Planned to have stent removed 11/06/19. Hgb stable. Admit XR abdomen non-acute with right ureteral stent in place. Urology followed on 11/01/19 and reconsultedon admission. Reviewed CT scan. Cont pain/nausea control and outpatient follow up with Dr. Zuñigafor stent removal. 2. Abdominal Pain: suspect in setting above. Abdomen benign. Given continued vomiting will get CT A/P with mild ileus and mild ureteral dilation. Plan as above. 3. Abnormal UA: Admit UA with hematuria, bacteriuria, improving pyuria from past UA. UCx 11/02/19 negative. Continued 7 day course of keflex ending 11/05/[address] Zuñiga. 4. Vasovagal syncope: Chronic syncopal events 1-2x per week for >1year usually with defecation.Has been intolerant of medications in the past and has been prescribed compression stockings. Orthostatic vitals pending. IVF. Recommended continued outpatient follow up for recurrent syncope. Encouraged compression stockings. Discharge Medications Medication List CONTINUE taking these medications ARIPiprazole 5 MG tablet Commonly known as: ABILIFY benztropine 0.5 MG tablet Commonly known as: COGENTIN cephALEXin 500 MG capsule Commonly known as: KEFLEX Take 1 (one) capsule (500 mg total) by mouth 3 (three) times a day for 7 days . dicyclomine 10 MG capsule Commonly known as: BENTYL Take 1 (one) capsule (10 mg total) by mouth 3 (three) times a day as needed (Abdominal cramping) . FIBER 6 ORAL fluconazole 150 MG tablet Commonly known as: Diflucan Take 1 (one) tablet (150 mg total) by mouth once as needed (may repeat in 3 days) . naproxen 250 MG tablet Commonly known as: NAPROSYN ondansetron 4 MG disintegrating tablet Commonly known as: ZOFRAN-ODT Dissolve 1 (one) tablet (4 mg total) on top of tongue every 6 (six) hours as needed . vitamin with Ca-Iron-FA 27-1 mg Tab tamsulosin 0.4 mg capsule Commonly known as: FLOMAX Take 1 (one) capsule (0.4 mg total) by mouth daily for 14 days . VITAMIN C ORAL VITAMIN D3 ORAL STOP taking these medications HYDROcodone-acetaminophen 5-325 mg per tablet Commonly known as: NORCO Physician(s) Family: Mercedez Cotto CNP, , Address: [address] [facility] [address] [facility] [address] Follow Up: Mercedez Cotto CNP [address] [facility] [address] Schedule an appointment as soon as possible for a visit As needed your urologist Go to as scheduled for recheck Yan Zuñiga MD [address] [place] [address] [facility] [address] Follow up Call tuesday to make sure you are all set for procedure on Tuesday Laboratory [facility]: None Additional Information: Patient seen and examined day of discharge. For more information regarding patient's care, including complete radiology reports, please contact [facility] at Patient instructions, including activity, were given to the patient/family at discharge. Please seethe After Visit Summary in the medical record for details. Completed by: Reanna Rowley on 11/04/19, 11:18 AM documented in this encounter* Michael Alicia MD - 11/19/2019 7:48 AM EDT MEDONE DISCHARGE SUMMARY Luli Johnson Account: [id number] Admitted: 11/17/2019 Discharge Date/Time: 11/19/19 / 10:11 AM Clinical Summary Handoff to PCP Routine hospital follow up Luli Johnson is a 29 y.o. female with a history of alopecia, hx of kidney stones and depression who presented to [facility] Observation 11/17/2019 with bilateral flank pain/nausea/vomiting. On admit: Temp 100.6, UA with large blood/large leuks, >[address] A/P with bladder wall thickening and right- sided nephrolithiasis without obstruction. She improved, was discharged home. 1. Acute UTI: Recent culture positive for Klebsiella oxytocin and Klebsiella pneumoniae both sensitive to cefazolin which was started on admission, changed back to Keflex on discharge to finish course. She may have also passed a kidney stone. 2. Urinary Retention: requiring chronic reaves catheter. Follows with Dr. Martínez (urology) as outpatient. 3. Nausea/Vomiting: Reported x3 days prior to admission. Acute on chronic, likely from IBS. Improved. Discharge Medications Medication List CONTINUE taking these medications ARIPiprazole 5 MG tablet Commonly known as: ABILIFY benztropine 0.5 MG tablet Commonly known as: COGENTIN cephALEXin 500 MG capsule Commonly known as: KEFLEX Take 1 (one) capsule (500 mg total) by mouth 4 (four) times a day for 7 days . FIBER 6 ORAL naproxen 250 MG tablet Commonly known as: NAPROSYN ondansetron 4 MG disintegrating tablet Commonly known as: ZOFRAN-ODT Dissolve 1 (one) tablet (4 mg total) on top of tongue every 6 (six) hours as needed . vitamin with Ca-Iron-FA 27-1 mg Tab VITAMIN C ORAL VITAMIN D3 ORAL Physician(s) Family: Mercedez Cotto CNP, , Address: [address] [place] [address] / [place] [address] Follow Up: Mercedez Cotto CNP [address] [place] [address] Follow up Call as needed Laboratory Follow Up by [facility]: None Additional Information: Patient seen and examined day of discharge. For more information regarding patient's care, including complete radiology reports, please contact [facility] at Patient instructions, including activity, were given to the patient/family at discharge. Please seethe After Visit Summary in the medical record for details. Completed by: Michael Alicia on 11/19/19, 10:11 AM documented in this encounter* Morena Loomis MD - 12/07/2019 8:12 AM EDT MEDONE DISCHARGE SUMMARY Luli Johnson Account: [id number] Admitted: 12/05/2019 Discharge Date/Time: 12/07/19 / 9:41 AM Clinical Summary Handoff to PCP Routine hospital follow up Clinical summary: Luli Johnson is a 29 y.o. female with a history of alopecia, anxiety/depression, IBS-C, ADD, and kidney stones with recent [facility] admission (11/16-11/19/19) with bilateral flank pain, treated for UTI. She presented to [facility] 12/05/2019 with right-sided flank pain. COVID neg. Renal US with likely stoned passed and now in bladder. Urology followed and recommended conservative management. 1. Nephrolithiasis: third visit over the past week for right-sided flank pain, has known right sided nephrolithiasis for which she follows with Dr. Zuñiga (Urology). S/p ureteroscopy on 10/31/19 with stent placement, stent removed 11/05/19. Recent CT kidney stone 11/28/19 with 4.6 mm renal calculus without evidence of obstruction. Renal US with no hydronephrosis, 8mm potentially representing bladder calculus, possibly having passed from right kidney. Urology evaluated; no plans for intervention,f/u OP. 2. Acute UTI: urine culture 11/28/19 +E coli. Prescribed Keflex outpatient but did not start, transitioned to Rocephin on admit and received 2 doses, urine cx 12/06/19 with no growth. Continued Keflex for 3 more days to finish 5 days course. 3. Intractable N/V: treated with IVF and antiemetics. Resolved. 4. Urinary Retention: per hx. Follows with Dr. Zuñiga (Urology). Continued bethanechol. 5. Bacterial Vaginosis: recently diagnosed, continued Flagyl (stop date 12/06/19). 6. Anxiety/Depression: per hx. Continued home abilify and cogentin. Discharge Medications Medication List CHANGE how you take these medications cephALEXin 500 MG capsule Commonly known as: KEFLEX Take 1 (one) capsule (500 mg total) by mouth 2 (two) times a day for 3 days Start: 12/08/19. Start taking on: December 08, 2019 What changed: additional instructions CONTINUE taking these medications ARIPiprazole 5 MG tablet Commonly known as: ABILIFY benztropine 0.5 MG tablet Commonly known as: COGENTIN bethanechol 10 MG tablet Commonly known as: URECHOLINE Take 1 (one) tablet (10 mg total) by mouth 3 (three) times a day . dicyclomine 10 MG capsule Commonly known as: BENTYL FIBER 6 ORAL metoclopramide 5 MG tablet Commonly known as: REGLAN Take 1 (one) tablet (5 mg total) by mouth 3 (three) times a day as needed . naproxen 250 MG tablet Commonly known as: NAPROSYN ondansetron 4 MG disintegrating tablet Commonly known as: ZOFRAN-ODT Dissolve 1 (one) tablet (4 mg total) on top of tongue every 6 (six) hours as needed . vitamin with Ca-Iron-FA 27-1 mg Tab VITAMIN C ORAL VITAMIN D3 ORAL STOP taking these medications metroNIDAZOLE 500 MG tablet Commonly known as: FLAGYL Where to Get Your Medications Information about where to get these medications is not yet available Ask your nurse or doctor about these medications cephALEXin 500 MG capsule Physician(s) Family: Mercedez Cotto CNP, , Address: [address] [place] [address] Follow Up: No follow-up provider specified. Laboratory Follow Up by [facility]: Additional Information: Patient seen and examined day of discharge. For more information regarding patient's care, including complete radiology reports, please contact [facility] at Patient instructions, including activity, were given to the patient/family at discharge. Please seethe After Visit Summary in the medical record for details. Completed by: Morena Loomis on 12/07/19, 9:41 AM documented in this encounter Summary Purpose Family History No Family History Records FoundNo Family History Records FoundNo Family History Records FoundNo Family History Records FoundNo Family History Records FoundNo Family History Records FoundNo Family History Records FoundNo Family History Records FoundNo Family History Records FoundNo Family History Records FoundNo Family History Records FoundNo Family History Records FoundNo Family History Records FoundNo Family History Records FoundNo Family History Records FoundNo Family History Records FoundNo Family History Records FoundNo Family History Records FoundNo Family History Records FoundNo Family History Records FoundNo Family History Records FoundNo Family History Records FoundNo Family History Records FoundNo Family History Records FoundNo Family History Records FoundNo Family History Records Found Additional Source Comments ED Notes - Shaylee Woodson RN - 08/03/2017 4:50 PM EDTED Notes - Yaneth Claire RN - 08/03/2017 4:42 PM EDTED Notes - Yaneth Claire RN - 08/03/2017 4:16 PM EDT Miscellaneous Notes (unrecog nized section and content) Vaginal US completed by [facility] with this RN present. Pt tolerated well. Pt denies any needs at this time. Call light in reach. US at bedside. US aware of order. Unable to get blood from IV, phlebs coming to draw labs. Formatting of this note may be different from the original. PCP - [facility] Chief Complaint Patient presents with Abdominal Pain HPI Patient is a 26-year-old female who presents with abdominal pain. Patient does have a history of alopecia, anxiety, depression and irregular menstrual cycles. She is also been on a trial of Clomid here recently. She comes in complaining of pain to the left upper quadrant down to the left lower quadrant across her suprapubic area and up the right side. Almost in a U type of fashion. 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 Says she has been having these symptoms intermittently for the past week and actually was seen at [facility] emergency department for the same problem. She did have a test at that visit on the and it was negative and she has done home tests since then they have been negative as well. Says she has had nausea and had one episode of vomiting today but has been able to drink water and eat small meals twice today. She has not had any vaginal bleeding. Says she has had some urination complaints of frequency but no blood. No fevers. No recent traumas or injuries. She does have some mid lower back pain but no true flank discomfort. She does have a history of having some ovarian cysts and being on Clomid she is concerned that there might be some ovarian pathology. She does not appear in any acute distress. Past Medical History Past Medical History: Diagnosis Date Alopecia Alopecia areata Anxiety with depression Eczema Irregular menstrual cycle Mental Disorder DEPRESSION AND ANGER ISSUE,ANXIETY Preeclampsia Social History Social History Marital status: Single Spouse name: N/A Number of children: N/A Years of education: N/A Occupational History Not on file. Social History Main Topics Smoking status: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 Swelling Diphenhydramine Swelling Bactrim [Sulfamethoxazole-Trimethoprim] Rash and Hives Benadryl [Diphenhydramine Hcl] Rash and Hives Ciprofloxacin Rash and Hives Hydrocortisone Rash and Hives Sulfa (Sulfonamide Antibiotics) Rash and Hives Review of Systems Constitutional: Negative for unexpected weight change. HENT: Negative for voice change. Eyes: Negative for itching. Respiratory: Negative for choking. Gastrointestinal: Negative for rectal pain. Endocrine: Negative for polyphagia. Skin: Negative for color change. Allergic/Immunologic: Negative for immunocompromised state. Neurological: Negative for facial asymmetry. Hematological: Does not bruise/bleed easily. Psychiatric/Behavioral: Negative for self-injury. Patient Vitals for the past 24 hrs: BP Temp Temp src Pulse Resp SpO2 Height Weight 02/22/17 1936 (!) 137/97 98.1 ?F (36.7 ?C) Oral 89 16 99 % 4' 11 63.5 kg (140 lb) Physical Exam Constitutional: She is oriented to person, place, and time. She appears well-developed and well-nourished. HENT: Head: Normocephalic and atraumatic. Mouth/Throat: Oropharynx is clear and moist. Eyes: Conjunctivae and EOM are normal. Neck: Normal range of motion. Neck supple. Cardiovascular: Normal rate and regular rhythm. Pulmonary/Chest: Effort normal and breath sounds normal. No respiratory distress. Abdominal: Mild tenderness to the left mid abdominal area no guarding or rebound no suprapubic tenderness. Musculoskeletal: She exhibits no edema. Neurological: She is alert and oriented to person, place, and time. Skin: Slightly raised ecchymotic rash noted to the patient's flanks. Psychiatric: She has a normal mood and affect. Her behavior is normal. Pelvic examination was done which showed scant clear vaginal discharge no cervical erythema but she did have cervical motion tenderness no adnexal masses. Laboratory & Radiographic Imaging (if done): Results for orders placed or performed during the hospital encounter of 02/22/17 HCG (QUALITATIVE) Result Value Ref Range Beta-hCG Qual Negative Negative CMP Result Value Ref Range Sodium 142 135 - 145 mmol/L Potassium 3.7 3.5 - 5.1 mmol/L Chloride 102 98 - 108 mmol/L Bicarbonate 26 21 - 32 mmol/L Anion Gap 18 10 - 20 mmol/L Glucose 92 65 - 99 mg/dL BUN 12 8 - 25 mg/dL Creatinine 0.69 0.40 - 1.10 mg/dL eGFR 121 >=60 mL/min/1.73 m2 BUN/Creatinine Ratio 17.4 10.0 - 20.0 Total Protein 8.5 (H) 6.0 - 8.0 g/dL Albumin 4.9 3.2 - 5.2 g/dL Calcium 9.7 8.4 - 10.2 mg/dL Alkaline Phosphatase 44 40 - 140 U/L AST 23 0 - 45 U/L ALT 23 0 - 40 U/L Total Bilirubin <0.2 0.0 - 1.3 mg/dL Urinalysis Result Value Ref Range Color, Urine Yellow Colorless, Yellow Clarity, Urine Cloudy (A) Clear Specific [place] 1.026 (H) 1.005 - 1.025 pH, Urine 5.0 5.0 - 7.0 Protein, Urine 30 (A) Negative mg/dL Glucose, Urine Negative Negative mg/dL Ketones, Urine Negative Negative mg/dL Bilirubin, Urine Negative Negative Urobilinogen, Urine <2.0 <2.0 mg/dL Blood, Urine Small (A) Negative Nitrite, Urine Negative Negative Leukocyte Esterase, Urine Negative Negative WBCs, Urine 2 0 - 5 /hpf RBCs, Urine 4 (H) 0 - 3 /hpf Bacteria, Urine Rare (A) None Seen /hpf Squamous Epithelial 11 (H) 0 - 4 /hpf Hyaline Casts 0-2 0 - 2 /lpf Mucus, Urine Few (A) None Seen, Rare /lpf CBC Auto Differential Result Value Ref Range WBC 5.28 4.50 - 11.00 K/mcL RBC 4.84 4.00 - 5.20 M/mcL Hemoglobin 13.7 12.0 - 16.0 g/dL Hematocrit 40.6 36.0 - 46.0 % MCV 83.9 80.0 - 100.0 fL MCH 28.3 26.0 - 34.0 pg MCHC 33.7 31.0 - 37.0 g/dL Platelets 232 150 - 400 K/mcL RDW - CV 13.0 11.6 - 14.8 % MPV 9.5 9.0 - 15.5 fL Neutrophils 52.1 % Lymphocytes 31.6 % Monocytes 8.5 % Eosinophils 7.4 % Basophils 0.4 % Neutrophils Abs 2.75 1.70 - 7.00 K/mcL Lymphocytes Abs 1.67 0.90 - 4.00 K/mcL Monocytes Abs 0.45 0.30 - 0.90 K/mcL Eosinophils Abs 0.39 0.00 - 0.50 K/mcL Basophils Abs 0.02 0.00 - 0.30 K/mcL Nucleated RBC 0.0 % Nucleated RBC Abs 0.00 0.00 - 0.00 K/mcL CT Abdomen Pelvis Without Contrast Non-public Result 1. Nonobstructing calculus in the right kidney otherwise no obstructive uropathy. 2. Normal-appearing appendix. 3. No acute process otherwise to explain patient's symptoms. Workstation ID: [id number] Procedures MDM Patient will be treated with Rocephin and Zithromax pending final culture results that she is having cervical motion tenderness. ED Course . Clinical Impression: SNOMED CT(R) 1. Cervicitis INFLAMMATION OF CERVIX Follow-up Information 1. Mercedez oCtto, LAWANDA. Specialties: Internal Medicine, Nurse Practitioner Why: If symptoms worsen [address] [place] [id number] Contact information for after-discharge care Follow-up information has not been specified. New Prescriptions No medications on file (Please note that portions of this note may have been completed with a voice recognition software. Efforts were made to correct any errors, but occasionally words are mis-transcribed.) Dharmesh Urbina, DO 02/22/172058 Pt also has some dark discoloration to her back, denies any injury to her back. Sts this area itches somewhat. Pt to ED today with c/o left sided abdominal pain that started earlier this evening around 6pm. Sts she has been taking progesterone for the last several months to try and regulate her menstrual cycles. Sts she is now 3 days late for her cycle but denies any chance of as she sts she has not had sexual relations in over 2 months. +n/v, emesis x3 at home. Denies diarrhea/fevers. +vaginal dc with +foul odor per pt, dc is clear per pt x2 days. Reports some mild lower pelvic pain with urination and burning with urination. A&Ox3, neuro exam normal. Denies cp/sob. Respirs even and unlabored, skin p/w/d/i, pms intact x4. Sts she called her OB office this evening who told her to come to ED for eval. Pt's OB: [facility], Dr. Antwan Anderson Office # [phone] this encounter I personally interviewed the patient. I personally examined the patient. I discussed the patient with FINANCE LEAD/PA. I agree with the FINANCE LEAD/PA treatment plan. I agree with the FINANCE LEAD/PA plan of care. I agree with the FINANCE LEAD/PA dispo as documented. A 26-year-old female with history of alopecia presents complaining of abdominal pain, nausea, vomiting for 3 days. She has not tried to take anything for her symptoms. She states she has been taking Clomid as she is having fertility issues. On exam vital signs are within normal limits. Patient unremarkable. He is a flat affect. Patient has no eyelashes or hair. Abdomen soft with minimal upper abdominal tenderness. No peritoneal signs. She reproduce the pain with bending. Lab work unremarkable. CT showed possible hemorrhagic ovarian cysts. Incomplete distention of colon. Clinically do not think she has colitis. She is given Toradol and Pepcid here. Will be given medications for home. Prabhakar Mccracken MD 09/06/17 Physician at bedside. Report received from MILTON Wilson. Patient is resting comfortably. Call light within reach. Patient updated on continued plan of care. Patient is resting comfortably. Call light within reach. Patient updated on continued plan of care. Formatting of this note may be different from the original. ED PROVIDER NOTE [facility] NAME: Luli Johnson AGE: 26 y.o. : 1990 VISIT DATE: 09/06/2017 CSN: [id number] PCP: [facility] Chief Complaint Patient presents with Abdominal Pain Nausea Emesis 26-year-old female slight cognitive delay. States that she has been having all of her abdominal pain. Patient states it hurts from her cervix up to the top of her stomach should she points to the left side of her stomach where she states her cervix is painful. Patient states she has had this pain before some nausea vomiting. No fever chills patient states she has had reproductive issues no back pain has really taken anything for the pain. Patient states her mother dropped her off here in the ER. Denies any dysuria hematuria no diarrhea because patient blood in her stools. She is not sure makes pain any better or any worse. She states she has a lot of abdominal pain History provided by: Patient central supply nurse used: No Abdominal Pain Associated symptoms: vomiting Emesis Associated symptoms: abdominal pain Past Medical History: Diagnosis Date Alopecia Alopecia areata Anxiety with depression Eczema Irregular menstrual cycle Mental Disorder DEPRESSION AND ANGER ISSUE,ANXIETY Preeclampsia Past Surgical History: Procedure Laterality Date OTHER SURGICAL HISTORY wisdom teeth Family History Problem Relation Age of Onset Hypertension Mother Hypertension Maternal Grandfather Social History Social History Marital status: Single Spouse name: N/A Number of children: N/A Years of education: N/A Occupational History Not on file. Social History Main Topics Smoking status: Never Smoker Smokeless tobacco: Never Used Alcohol use No Drug use: No Sexual activity: Yes Partners: Male control/ protection: None Other Topics Concern Not on file Social History Narrative No narrative on file Previous Medications ARIPIPRAZOLE (ABILIFY) 5 MG TABLET Take 5 mg by mouth nightly . ASCORBATE CALCIUM (VITAMIN C ORAL) Take by mouth. BENZTROPINE (COGENTIN) 0.5 MG TABLET Take 0.5 mg by mouth every evening . CLOMIPHENE (CLOMID) 50 MG TABLET Take 2 tablets by mouth on days 3 through 7 of menstrual cycle. MEDROXYPROGESTERONE (PROVERA) 10 MG TABLET Take 1 (one) tablet (10 mg total) by mouth daily for 10 days. VITAMIN WITH CA-IRON-FA 27-1 MG TAB Take 1 tablet by mouth every morning . TACROLIMUS (PROTOPIC) 0.03 % OINTMENT Apply 1 application topically 2 (two) times a day as needed . Allergies Allergen Reactions Ciprofloxacin-Hydrocortisone Swelling Diphenhydramine Swelling Bactrim [Sulfamethoxazole-Trimethoprim] Rash and Hives Benadryl [Diphenhydramine Hcl] Rash and Hives Ciprofloxacin Rash and Hives Hydrocortisone Rash and Hives Sulfa (Sulfonamide Antibiotics) Rash and Hives Review of Systems Gastrointestinal: Positive for abdominal pain and vomiting. All other systems reviewed and are negative. Positives and pertinent negatives as per HPI. All other systems were reviewed and are negative. Patient Vitals for the past 24 hrs: BP Temp Pulse Resp SpO2 Height Weight 09/06/172023 132/69 98.2 ?F (36.8 ?C) 93 16 100 % 5' 59.9 kg (132 lb) Physical Exam Constitutional: She is oriented to person, place, and time. She appears well-developed and well-nourished. HENT: Head: Normocephalic and atraumatic. Right Ear: External ear normal. Left Ear: External ear normal. Nose: Nose normal. Mouth/Throat: Oropharynx is clear and moist. Eyes: Conjunctivae and EOM are normal. Pupils are equal, round, and reactive to light. Neck: Normal range of motion. Neck supple. Cardiovascular: Normal rate, regular rhythm, normal heart sounds and intact distal pulses. Pulmonary/Chest: Effort normal and breath sounds normal. Abdominal: Soft. She exhibits no distension. There is tenderness. His abdominal tenderness no focal tenderness no distention no peritoneal signs Patient points to her left upper quadrant and states that is her cervix where she is having cervical pain. Musculoskeletal: Normal range of motion. Neurological: She is alert and oriented to person, place, and time. She has normal reflexes. Skin: Skin is warm and dry. Psychiatric: She has a normal mood and affect. Her behavior is normal. Judgment and thought content normal. Nursing note and vitals reviewed. Laboratory & Radiographic Imaging (if done): No results found for this visit on 09/06/17. CT Abdomen Pelvis With IV Contrast Only (Results Pending) Procedures MDM 26-year-old female presenting with mid upper abdominal pain at 1 to left side abdominal pain. CT and pelvis demonstrates no obstructing right renal calculus probable tiny right renal cyst in the left segmental include distention of the colon was notable proximal transverse colon most likely due to to underdistention. Colitis less likely there is no adjacent inflammatory changes. Possible small hemorrhagic ovarian cyst. Hepatic function panel within normal limits urinalysis shows no signs of infection. CBC with differential demonstrate stable hemoglobin hematocrit no acute elevation white blood cell count patient is afebrile vital signs stable reviewed recent ultrasound of pelvis ovaries within unremarkable. Advised patient on ongoing pain needs to follow-up with her PCP omeprazole for the next or 2 weeks. Patient agrees with above. Low suspicion for any intra-abdominal abnormality no pelvic pain. Patient initially did mention her cervix hurt however she was pointing to her left upper stomach area when she stated cervix. . Clinical Impression: No diagnosis found. Follow-up Information Follow-up information has not been specified. Contact information for after-discharge care Follow-up information has not been specified. New Prescriptions No medications on file (Please note that portions of this note may have been completed with a voice recognition software. Efforts were made to correct any errors, but occasionally words are mis-transcribed.) Reanna Herring PA-C 09/06/17 2233 Pt present to ed with c/o diffused abd pressure/bloating, nausea and emesis x3days. Denies diarrhea , fever or urinary sx or vaginal bleeding/discharge. Denies otc Alert and oriented, resp even and unlabored.in this encounter Formatting of this note may be different from the original. [facility] PCP - Mercedez Cotto, LAWANDA Chief Complaint Patient presents with Abdominal Pain Rectal Bleeding HPI MEDICAL DECISION MAKING 26-year-old female presents emergency department today with abdominal pain and rectal bleeding as the chief complaint. The patient tells me that a week ago she was diagnosed with IBS by her family doctor. She says that they talked with the GI doctor and she does not have to go in and see them right away. They started her on IBGard for her symptoms. The patient took 2 pills morning, 2 pills at lunch time, and then her doctor cold this afternoon and told her that she is only supposed to take 1 pill 3 times a day. The patient states that starting around midnight, less than 2 hours prior to her presentation here, she started having increasing abdominal cramping and watery stools. She thought that there was blood in her stools as well. She when she wiped, she noticed blood on the toilet paper. However, she also notes that she started her menstrual cycle and she has been bleeding. The patient denies any abdominal surgeries. She has never had a colonoscopy. No fevers. No urinary complaints. She does state that she has been feeling little nauseated, but has been having a normal appetite. She says that since she has had the multiple watery bowel movements since midnight, she has felt a little lightheaded. She denies losing consciousness, chest pain or shortness of breath. The plan at this time is to obtain laboratory studies to check her hemoglobin since she has been complaining of vaginal bleeding for the last 7 days. I did perform a rectal examination with female hair boiler operator and stool was negative. I suspect that the rectal bleeding that she is referring to is actually contamination from vaginal bleeding. I did not see any signs of external hemorrhoids. The patient does not have any significant abdominal pain. I did order some nausea medication as well as antispasmodic and IV fluids. Laboratory studies are as noted below. No acute findings today other than a potassium that slightly low at 3.4 and glucose of 116. Her urinalysis does contain blood and RBCs, but I feel this is likely contamination. CBC without leukocytosis, anemia, or thrombocytopenia. LFTs, lipase are negative. test negative. Patient feeling better after treatment here in the emergency department. She can be discharged home at this time. I did give her prescription for Zofran and Bentyl. She may take [id number] medication for her diarrhea. I discussed with the patient calling her doctor later today to discuss further treatment with the [facility], as this may be contributing to her diarrhea symptoms. Through my history, physical exam and diagnostic evaluation, I determined that there is LOW risk for ACUTE APPENDICITIS, BOWEL OBSTRUCTION, ACUTE CHOLECYSTITIS, PERFORATED VISCUS, INCARCERATED HERNIA, PANCREATITIS, AAA, AORTIC DISSECTION, PELVIC INFLAMMATORY DISEASE, ECTOPIC , or TUBO-OVARIAN ABSCESS OR TORSION, thus I consider the discharge disposition reasonable. Also, there is no evidence of peritonitis, sepsis, or toxicity. The patient (or the patient s surrogate) and I have discussed the diagnosis and risks, and we agree with discharging home with close follow-up with PCP within the next 2 days or back to ED. We also discussed returning to the Emergency Department immediately if new or worsening symptoms occur. We have discussed the symptoms which are most concerning (e.g., bloody stool, fever, changing or worsening pain, vomiting) that necessitate immediate return. The patient did give verbal understanding of discharge instructions and agrees with plan of care. CLINICAL IMPRESSION SNOMED CT(R) 1. Abdominal pain, unspecified abdominal location ABDOMINAL PAIN 2. Diarrhea, unspecified type DIARRHEA 3. Nausea NAUSEA Follow-up Information 1. Mercedez Cotto CNP. Specialties: Internal Medicine, Nurse Practitioner Why: For re-evaluation [address] [id number] 2. [facility]. Specialty: Emergency Medicine Why: If symptoms worsen, you have fevers greater than 101, have repeated episodes of vomiting, worsening pain despite taking medications, or have other concerns [address] [facility] [address] Contact information for after-discharge care Follow-up information has not been specified. New Prescriptions DICYCLOMINE (BENTYL) 20 MG TABLET Take 1 (one) tablet (20 mg total) by mouth every 6 (six) hours as needed (abdominal pain/cramping). ONDANSETRON (ZOFRAN ODT) 4 MG DISINTEGRATING TABLET Dissolve 1 (one) tablet (4 mg total) on top of tongue every 6 (six) hours as needed for nausea. . Labs Reviewed BASIC METABOLIC PANEL - Abnormal; Notable for the following: Result Value Potassium 3.4 (*) Glucose 116 (*) All other components within normal limits Narrative: The eGFR should be used for monitoring renal function only and not for medication dosing. URINALYSIS - Abnormal; Notable for the following: Clarity, Urine Hazy (*) Blood, Urine Large (*) RBCs, Urine 21 (*) Bacteria, Urine Rare (*) All other components within normal limits Narrative: Microscopic examination is performed on all urinalysis samples and only positive findings are reported. The test for blood on the chemical analytic portion of urinalysis may also be positive due to hemoglobinuria and myoglobinuria and if red blood cells are present they are quantified by microscopic examination. CBC WITH AUTO DIFFERENTIAL - Abnormal; Notable for the following: Hematocrit 35.4 (*) All other components within normal limits HEPATIC FUNCTION PANEL - Normal LIPASE - Normal POC , URINE - Normal CBC AND DIFFERENTIAL Narrative: The following orders were created for panel order CBC w/ Diff. Procedure Abnormality Status --------- ------ CBC Auto Differential[[id number]] Abnormal Final result Please view results for these tests on the individual orders. Radiographic Imaging (if any) During ED Visit No orders to display Medications Ordered/Given During ED Visit Medications sodium chloride 0.9% (NS) bolus 1,000 mL (1,000 mL Intravenous New Bag 09/16/17150) ondansetron (ZOFRAN-ODT) disintegrating tablet 4 mg (4 mg Oral Given 09/16/17150) dicyclomine (BENTYL) injection 20 mg (20 mg Intramuscular Given 09/16/17150) Procedures Review of Systems Constitutional: Negative for chills, fever and unexpected weight change. HENT: Negative for voice change. Eyes: Negative for visual disturbance. Respiratory: Negative for choking, shortness of breath and stridor. Cardiovascular: Negative for chest pain. Gastrointestinal: Positive for abdominal pain, diarrhea and nausea. Negative for anal bleeding and vomiting. Endocrine: Negative for heat intolerance. Genitourinary: Positive for vaginal bleeding. Negative for difficulty urinating, dyspareunia, dysuria, vaginal discharge and vaginal pain. Musculoskeletal: Negative for back pain and joint swelling. Skin: Negative for color change. Neurological: Positive for light-headedness. Negative for dizziness, seizures, syncope, speech difficulty and headaches. Hematological: Does not bruise/bleed easily. Psychiatric/Behavioral: Negative for dysphoric mood. All other systems reviewed and are negative. Physical Exam Vital Signs During ED Visit (as charted by nursing) Patient Vitals for the past 24 hrs: BP Temp Temp src Pulse Resp SpO2 Height Weight 09/16/17 0107 (!) 129/91 98.3 ?F (36.8 ?C) Oral 82 16 100 % 5' 59 kg (130 lb) Physical Exam Constitutional: She is oriented to person, place, and time. She appears well-developed and well-nourished. She is cooperative. Non-toxic appearance. She does not have a sickly appearance. She does not appear ill. No distress. Alopecia. Appears to have a wig on. HENT: Head: Normocephalic and atraumatic. Right Ear: Hearing and external ear normal. No drainage. Left Ear: Hearing and external ear normal. No drainage. Nose: Nose normal. Mouth/Throat: Oropharynx is clear and moist. Eyes: EOM are normal. Right eye exhibits no discharge. Left eye exhibits no discharge. Right pupil is round. Left pupil is round. Pupils are equal. Neck: Trachea normal, normal range of motion and phonation normal. No neck rigidity. No tracheal deviation present. Cardiovascular: Normal rate and regular rhythm. Pulmonary/Chest: Effort normal and breath sounds normal. No accessory muscle usage or stridor. No tachypnea. No respiratory distress. She has no decreased breath sounds. She has no wheezes. Abdominal: Normal appearance. She exhibits no distension. There is no tenderness. There is no rigidity, no rebound, no guarding, no CVA tenderness, no tenderness at McBurney's point and negative Bauer's sign. Genitourinary: Rectum normal. Rectal exam shows no external hemorrhoid, no internal hemorrhoid, no fissure, no mass, no tenderness, anal tone normal and guaiac negative stool. Genitourinary Comments: Rectal exam chaperoned by MILTON Santiago. Musculoskeletal: Normal range of motion. She exhibits no deformity. Neurological: She is alert and oriented to person, place, and time. GCS eye subscore is 4. GCS verbal subscore is 5. GCS motor subscore is 6. Skin: Skin is warm and dry. No rash noted. She is not diaphoretic. No pallor. Psychiatric: She has a normal mood and affect. Her speech is normal and behavior is normal. Past Medical History Past Medical History: Diagnosis Date Alopecia Alopecia areata Anxiety with depression Eczema Irregular menstrual cycle Mental Disorder DEPRESSION AND ANGER ISSUE,ANXIETY Preeclampsia Past Surgical History Past Surgical History: Procedure Laterality Date OTHER SURGICAL HISTORY wisdom teeth Family History Family History Problem Relation Age of Onset Hypertension Mother Hypertension Maternal Grandfather Social History Social History Social History Marital status: Single Spouse name: N/A Number of children: N/A Years of education: N/A Occupational History Not on file. Social History Main Topics Smoking status: Never Smoker Smokeless tobacco: Never Used Alcohol use No Drug use: No Sexual activity: Yes Partners: Male control/ protection: None Other Topics Concern Not on file Social History Narrative No narrative on file Allergies Allergies Allergen Reactions Ciprofloxacin-Hydrocortisone Swelling Diphenhydramine Swelling Bactrim [Sulfamethoxazole-Trimethoprim] Rash and Hives Benadryl [Diphenhydramine Hcl] Rash and Hives Ciprofloxacin Rash and Hives Hydrocortisone Rash and Hives Sulfa (Sulfonamide Antibiotics) Rash and Hives Medications Previous Medications ARIPIPRAZOLE (ABILIFY) 5 MG TABLET Take 5 mg by mouth nightly . ASCORBATE CALCIUM (VITAMIN C ORAL) Take by mouth. BENZTROPINE (COGENTIN) 0.5 MG TABLET Take 0.5 mg by mouth every evening . CLOMIPHENE (CLOMID) 50 MG TABLET Take 2 tablets by mouth on days 3 through 7 of menstrual cycle. MEDROXYPROGESTERONE (PROVERA) 10 MG TABLET Take 1 (one) tablet (10 mg total) by mouth daily for 10 days. OMEPRAZOLE (PRILOSEC) 40 MG CAPSULE Take 1 (one) capsule (40 mg total) by mouth daily for 14 days. VITAMIN WITH CA-IRON-FA 27-1 MG TAB Take 1 tablet by mouth every morning . TACROLIMUS (PROTOPIC) 0.03 % OINTMENT Apply 1 application topically 2 (two) times a day as needed . Alhaji Altman MD 09/16/17 0212 Pt present to ed with c/o diffused abd pain and nausea. States having diarrhea with bright red blood started around 12am. . States pcp dgx her with IBS and told to take IBgard with no relief. Denies fever , vomiting, urinary sx Alert and oriented ,resp even and unlabored.in this encounter Pt d/c to home with family Formatting of this note may be different from the original. ED PROVIDER NOTE [facility] NAME: Luli Johnson AGE: 26 y.o. : 1990 VISIT DATE: 09/20/2017 CSN: [id number] PCP: Mercedez Cotto CNP Chief Complaint Patient presents with Emesis Dizziness Headache HPI This is a 26-year-old female who presented to the emergency department known history of IBS gastroesophageal reflux disease pituitary disorder and abdominal hernia and alopecia presents for evaluation of headache and nausea and vomiting and dizziness. She states was actually seen at [facility] yesterday for the same complaints she also states that she was very dizzy yesterday and fell at home hitting her head she states upon her evaluation at [facility] I did do blood work and give her Toradol and Reglan and then she was discharged home she states she presents here for continued headache associated with dizziness and nausea and vomiting she is well-appearing does not display any neurological deficits she states the headache is very generalized it is not localized no associated photophobia or visual deficits when she fell yesterday she denies any loss of consciousness she is no ptosis no facial drooping smile symmetric tongue is midline moves all extremities displays equal strength bilaterally she has no meningeal signs she has no focal neuro deficits no visual field cuts no anticoagulant use no recent history of illness she is well-appearing her vital signs are stable with a blood pressure 114/81 pulse of 89 temperature 98.4 respiratory of 16 saturations 90% on room air. Past Medical History: Diagnosis Date Alopecia Alopecia areata Anxiety with depression Eczema Irregular menstrual cycle Mental Disorder DEPRESSION AND ANGER ISSUE,ANXIETY Preeclampsia Past Surgical History: Procedure Laterality Date OTHER SURGICAL HISTORY wisdom teeth Family History Problem Relation Age of Onset Hypertension Mother Hypertension Maternal Grandfather Social History Social History Marital status: Single Spouse name: N/A Number of children: N/A Years of education: N/A Occupational History Not on file. Social History Main Topics Smoking status: Never Smoker Smokeless tobacco: Never Used Alcohol use No Drug use: No Sexual activity: Yes Partners: Male control/ protection: None Other Topics Concern Not on file Social History Narrative No narrative on file Previous Medications ARIPIPRAZOLE (ABILIFY) 5 MG TABLET Take 5 mg by mouth nightly . ASCORBATE CALCIUM (VITAMIN C ORAL) Take by mouth. BENZTROPINE (COGENTIN) 0.5 MG TABLET Take 0.5 mg by mouth every evening . CLOMIPHENE (CLOMID) 50 MG TABLET Take 2 tablets by mouth on days 3 through 7 of menstrual cycle. DICYCLOMINE (BENTYL) 20 MG TABLET Take 1 (one) tablet (20 mg total) by mouth every 6 (six) hours as needed (abdominal pain/cramping). MEDROXYPROGESTERONE (PROVERA) 10 MG TABLET Take 1 (one) tablet (10 mg total) by mouth daily for 10 days. OMEPRAZOLE (PRILOSEC) 40 MG CAPSULE Take 1 (one) capsule (40 mg total) by mouth daily for 14 days. ONDANSETRON (ZOFRAN ODT) 4 MG DISINTEGRATING TABLET Dissolve 1 (one) tablet (4 mg total) on top of tongue every 6 (six) hours as needed for nausea. VITAMIN WITH CA-IRON-FA 27-1 MG TAB Take 1 tablet by mouth every morning . TACROLIMUS (PROTOPIC) 0.03 % OINTMENT Apply 1 application topically 2 (two) times a day as needed . Allergies Allergen Reactions Ciprofloxacin-Hydrocortisone Swelling Diphenhydramine Swelling Bactrim [Sulfamethoxazole-Trimethoprim] Rash and Hives Benadryl [Diphenhydramine Hcl] Rash and Hives Ciprofloxacin Rash and Hives Hydrocortisone Rash and Hives Sulfa (Sulfonamide Antibiotics) Rash and Hives Review of Systems Constitutional: Negative for chills and fever. HENT: Negative. Eyes: Negative for photophobia and visual disturbance. Respiratory: Negative for cough and shortness of breath. Cardiovascular: Negative for chest pain. Gastrointestinal: Positive for abdominal pain (states has chronic abd pain and it is no worse today she is being seen by her doctor for this), nausea and vomiting. Genitourinary: Negative. Musculoskeletal: Negative. Skin: Negative for rash. Allergic/Immunologic: Negative for immunocompromised state. Neurological: Positive for headaches (for the 2-3 days has not taken anything for it today). Negative for seizures, syncope, facial asymmetry, speech difficulty, weakness and numbness. Psychiatric/Behavioral: Negative. All other systems reviewed and are negative. Positives and pertinent negatives as per HPI. All other systems were reviewed and are negative. Patient Vitals for the past 24 hrs: BP Temp Temp src Pulse Resp SpO2 Height Weight 09/20/17 1830 114/81 98.4 ?F (36.9 ?C) Oral 89 16 98 % 5' 59 kg (130 lb) Physical Exam Constitutional: She is oriented to person, place, and time. She appears well-developed and well-nourished. HENT: Head: Normocephalic and atraumatic. Eyes: EOM are normal. Pupils are equal, round, and reactive to light. Cardiovascular: Normal rate and regular rhythm. Pulmonary/Chest: Effort normal and breath sounds normal. Abdominal: Soft. Bowel sounds are normal. Musculoskeletal: Normal range of motion. Neurological: She is alert and oriented to person, place, and time. Coordination normal. Patient does not display any neurological deficits she has no ptosis no facial drooping tongue is midline smile symmetric shoulder shrug in place no pronator drift finger-nose is normal heel to eldridge is normal answers all my questions appropriately moves all extremities displays equal strength bilaterally recent and remote memory are intact. Skin: Skin is warm. Psychiatric: She has a normal mood and affect. Nursing note and vitals reviewed. Laboratory & Radiographic Imaging (if done): Results for orders placed or performed during the hospital encounter of 09/20/17 Chem 7 Result Value Ref Range Sodium 140 135 - 145 mmol/L Potassium 3.9 3.5 - 5.1 mmol/L Chloride 101 98 - 108 mmol/L Bicarbonate 25 21 - 32 mmol/L Creatinine 0.65 0.40 - 1.10 mg/dL Glucose 101 (H) 65 - 99 mg/dL BUN 11 8 - 25 mg/dL eGFR 123 >=60 mL/min/1.73 m2 BUN/Creatinine Ratio 16.9 10.0 - 20.0 Anion Gap 18 10 - 20 mmol/L Urinalysis Result Value Ref Range Color, Urine Yellow Colorless, Yellow Clarity, Urine Hazy (A) Clear Specific [place] 1.016 1.005 - 1.025 pH, Urine 6.0 5.0 - 7.0 Protein, Urine Negative Negative mg/dL Glucose, Urine Negative Negative mg/dL Ketones, Urine Negative Negative mg/dL Bilirubin, Urine Negative Negative Urobilinogen, Urine <2.0 <2.0 mg/dL Blood, Urine Small (A) Negative Nitrite, Urine Negative Negative Leukocyte Esterase, Urine Negative Negative WBCs, Urine 1 0 - 5 /hpf RBCs, Urine 6 (H) 0 - 3 /hpf Bacteria, Urine Rare (A) None Seen /hpf Squamous Epithelial 4 0 - 4 /hpf Mucus, Urine Rare None Seen, Rare /lpf POC Urine Result Value Ref Range POC Preg Test, Ur Negative Negative Internal Control Pass Spec Grav, UA 1.005 - 1.025 CBC Auto Differential Result Value Ref Range WBC 8.25 4.50 - 11.00 K/mcL RBC 4.59 4.00 - 5.20 M/mcL Hemoglobin 12.8 12.0 - 16.0 g/dL Hematocrit 37.7 36.0 - 46.0 % MCV 82.1 80.0 - 100.0 fL MCH 27.9 26.0 - 34.0 pg MCHC 34.0 31.0 - 37.0 g/dL Platelets 267 150 - 400 K/mcL RDW - CV 13.0 11.6 - 14.8 % MPV 9.1 9.0 - 15.5 fL Neutrophils 74.5 % Lymphocytes 17.6 % Monocytes 5.8 % Eosinophils 1.3 % Basophils 0.4 % IG Percent 0.40 % Neutrophils Abs 6.15 1.70 - 7.00 K/mcL Lymphocytes Abs 1.45 0.90 - 4.00 K/mcL Monocytes Abs 0.48 0.30 - 0.90 K/mcL Eosinophils Abs 0.11 0.00 - 0.50 K/mcL Basophils Abs 0.03 0.00 - 0.30 K/mcL IG Absolute 0.03 0.00 - 0.30 K/mcL Nucleated RBC 0.0 % Nucleated RBC Abs 0.00 0.00 - 0.00 K/mcL CT Head Or Brain Without Contrast Final Result No acute intracranial abnormality. Workstation ID: [id number] Procedures MDM This is a 26-year-old female who presented to the emergency department for evaluation of headache associated with nausea and vomiting diagnostic studies were done inclusive of a CT scan of the brain which does not identify any acute abnormality urinalysis was performed which did not show any acute abnormality patency test was negative chemistry was done showing a sodium 140 potassium 3.9 chloride 101 bicarbonate 25 creatinine 0.65 glucose of 1 1 BUN of 11 anion gap of 18 CBC was done showing white blood cell count of 8.25 hemato-12.8 hematocrit 37.7 and platelets of 267 she did have an IV established and did receive IV fluids as well as Zofran and Toradol and Tylenol during her emergency department stay she has had no episodes of vomiting throughout her entire emergency department stay we do feel comfortable discharging her home to follow-up with her primary care physician she can certainly return for any change or worsening of her symptoms or any other concerns she may have. . Clinical Impression: SNOMED CT(R) 1. Concussion without loss of consciousness, initial encounter CONCUSSION WITH NO LOSS OF CONSCIOUSNESS Follow-up Information 1. Mercedez Cotto CNP. Specialties: Internal Medicine, Nurse Practitioner [address] [place] [address] Contact information for after-discharge care Follow-up information has not been specified. New Prescriptions No medications on file (Please note that portions of this note may have been completed with a voice recognition software. Efforts were made to correct any errors, but occasionally words are mis-transcribed.) Kia Irwin CNP 09/20/172023 Patient is resting comfortably. Call light within reach. Patient updated on continued plan of care. Pt to ct Patient is resting comfortably. Call light within reach. Patient updated on continued plan of care. Pt present to ed with c/o generalized headache, nausea, emesis and dizziness x 2 days. Denies photo/phonophobia. States fell yesterday and hit her head but denies loc. States having lower abd pain since dgnx with IBS Tried tylenol with no relief. Kia go at the bedside Alert and oriented ,resp even and unlabored Pt c/o forrester, dizziness, n/v x1 weekin this encounter ED Attestation: I have reviewed the non physician practitioner's documentation, personally taken the patient's history, performed an exam and agree with the physical findings, clinical impression and management plan Dictation on: 10/08/2017 6:18 PM by: EBEN RIOS [[id number]] Pt c/o sudden neck pain, numbness and pressure in head. Pt states that when she moves her neck she has some chest tightness. Pt also reporting nasal congestion, but denies fever, n/v/d/. Pt denies urinary symptomsin this encounter ED Attestation: I have reviewed the non physician practitioner's documentation, personally taken the patient's history, performed an exam and agree with the physical findings, clinical impression and management plan Dictation on: 12/15/2017 10:56 PM by: EBEN RIOS [[email or web address]] Formatting of this note may be different from the original. ED PROVIDER NOTE [facility] NAME: Luli Johnson AGE: 27 y.o. : 1990 VISIT DATE: 12/15/2017 CSN: [id number] PCP: Mercedez Cotto, GARAGE LABORER Chief Complaint Patient presents with Abdominal Pain Constipation Pruritus Luli Johnson, 27-year-old female, who states she has recent diagnosis of irritable bowel syndrome, presents with constipation. Patient states she has had hard small stools for the past month or greater, has been using MiraLAX without relief. Today she feels that she is straining to the point where she had these her hands to help dislodge the stool. Patient has lower abdominal cramping. She denies nausea vomiting. Patient also complaining of some burning and redness to her arms and chest. Patient has a history of dermatitis, was started on triamcinolone cream which she used today for the first time, and had immediate burning to the areas. Patient states that the area is now a pink whereas before they were flesh-colored. Patient has an allergy to cortisone was not sure if this medication was related. Past Medical History: Diagnosis Date Alopecia Alopecia areata Anxiety with depression Eczema Irregular menstrual cycle Mental Disorder DEPRESSION AND ANGER ISSUE,ANXIETY Neoplasm of pituitary gland Preeclampsia Past Surgical History: Procedure Laterality Date OTHER SURGICAL HISTORY wisdom teeth Family History Problem Relation Age of Onset Hypertension Mother Hypertension Maternal Grandfather Social History Social History Marital status: Single Spouse name: N/A Number of children: N/A Years of education: N/A Occupational History Not on file. Social History Main Topics Smoking status: Never Smoker Smokeless tobacco: Never Used Alcohol use No Drug use: No Sexual activity: Yes Partners: Male control/ protection: IUD Other Topics Concern Not on file Social History Narrative No narrative on file Discharge Medication List as of 12/15/2017 11:01 PM CONTINUE these medications which have NOT CHANGED Details ARIPiprazole (ABILIFY) 5 MG tablet Take 5 mg by mouth nightly ., Until Discontinued, Historical Med ascorbate calcium (VITAMIN C ORAL) Take by mouth., Historical Med benztropine (COGENTIN) 0.5 MG tablet Take 0.5 mg by mouth every evening ., Until Discontinued, Historical Med bran/gum/fib/daniel/psyl/kelp/pec (FIBER 6 ORAL) Take by mouth., Historical Med calcium-vitamin D (calcium-vitamin D) 500 mg(1,250mg) -200 unit per tablet Take 1 tablet by mouth 2 (two) times a day with meals., Historical Med clomiPHENE (CLOMID) 50 mg tablet Take 2 tablets by mouth on days 3 through 7 of menstrual cycle., Normal dicyclomine (BENTYL) 20 mg tablet Take 1 (one) tablet (20 mg total) by mouth every 6 (six) hours as needed (abdominal pain/cramping)., Starting Tue09/16/2017, Until Tue10/16/2017, Print fluconazole (DIFLUCAN) 150 MG tablet Take 1 (one) tablet (150 mg total) by mouth once as needed (may repeat in 3 days)., Starting Tue11/28/2017, Normal medroxyPROGESTERone (PROVERA) 10 MG tablet Take 1 (one) tablet (10 mg total) by mouth daily for 10 days., Starting Tue06/29/2017, Until Tue07/09/2017, Normal omeprazole (PRILOSEC) 40 MG capsule Take 1 (one) capsule (40 mg total) by mouth daily for 14 days., Starting Tue09/06/2017, Until Tue09/20/2017, Print ondansetron (ZOFRAN ODT) 4 MG disintegrating tablet Dissolve 1 (one) tablet (4 mg total) on top of tongue every 6 (six) hours as needed for nausea., Starting Tue09/16/2017, Print vitamin with Ca-Iron-FA 27-1 mg Tab Take 1 tablet by mouth every morning ., Until Discontinued, Historical Med tacrolimus (PROTOPIC) 0.03 % ointment Apply 1 application topically 2 (two) times a day as needed ., Until Discontinued, Historical Med Allergies Allergen Reactions Ciprofloxacin-Hydrocortisone Swelling Diphenhydramine Swelling Bactrim [Sulfamethoxazole-Trimethoprim] Rash and Hives Benadryl [Diphenhydramine Hcl] Rash and Hives Ciprofloxacin Rash and Hives Hydrocortisone Rash and Hives Sulfa (Sulfonamide Antibiotics) Rash and Hives Review of Systems Constitutional: Negative for activity change, appetite change, fatigue and fever. HENT: Negative for ear pain, facial swelling, hearing loss and mouth sores. Eyes: Negative for photophobia, pain and visual disturbance. Respiratory: Negative for cough, chest tightness and shortness of breath. Cardiovascular: Negative for chest pain, palpitations and leg swelling. Gastrointestinal: Positive for abdominal pain and constipation. Negative for abdominal distention, blood in stool, diarrhea, nausea and vomiting. Endocrine: Negative for polydipsia. Genitourinary: Negative for dysuria, flank pain, frequency, urgency, vaginal bleeding and vaginal discharge. Musculoskeletal: Negative for back pain and neck pain. Skin: Positive for rash. Negative for wound. Neurological: Negative for dizziness, syncope, light-headedness, numbness and headaches. Hematological: Negative for adenopathy. Psychiatric/Behavioral: Negative for behavioral problems and hallucinations. All other systems reviewed and are negative. Positives and pertinent negatives as per HPI. All other systems were reviewed and are negative. Patient Vitals for the past 24 hrs: BP Temp Temp src Pulse Resp SpO2 Height Weight 12/15/17 2137 104/66 98.1 ?F (36.7 ?C) Oral (!) 102 16 100 % 5' 59 kg (130 lb) Physical Exam Constitutional: She is oriented to person, place, and time. No distress. Pt sitting up in cart, well appearing HENT: Head: Normocephalic and atraumatic. Eyes: EOM are normal. Pupils are equal, round, and reactive to light. Neck: Normal range of motion. Cardiovascular: Normal rate and regular rhythm. Pulmonary/Chest: Effort normal and breath sounds normal. She has no decreased breath sounds. She has no wheezes. She has no rhonchi. Abdominal: Soft. Bowel sounds are normal. There is generalized tenderness. There is no rebound and no guarding. Musculoskeletal: Normal range of motion. Neurological: She is alert and oriented to person, place, and time. Skin: Rash noted. Nursing note and vitals reviewed. Laboratory & Radiographic Imaging (if done): Results for orders placed or performed during the hospital encounter of 12/15/17 Urinalysis Result Value Ref Range Color, Urine Yellow Colorless, Yellow Clarity, Urine Hazy (A) Clear Specific [place] 1.025 1.005 - 1.025 pH, Urine 6.0 5.0 - 7.0 Protein, Urine Negative Negative mg/dL Glucose, Urine Negative Negative mg/dL Ketones, Urine Negative Negative mg/dL Bilirubin, Urine Negative Negative Urobilinogen, Urine <2.0 <2.0 mg/dL Blood, Urine Negative Negative Nitrite, Urine Negative Negative Leukocyte Esterase, Urine Negative Negative WBCs, Urine 1 0 - 5 /hpf RBCs, Urine 6 (H) 0 - 3 /hpf Bacteria, Urine None Seen None Seen /hpf Squamous Epithelial 1 0 - 4 /hpf Mucus, Urine Rare None Seen, Rare /lpf Lactic Acid, Plasma Result Value Ref Range Lactic Acid 1.1 0.6 - 2.0 mmol/L Hepatic Function Panel (LFT) Result Value Ref Range Total Protein 7.8 6.0 - 8.0 g/dL Albumin 4.7 3.2 - 5.2 g/dL Total Bilirubin 0.2 0.0 - 1.3 mg/dL Bilirubin, Direct <0.1 0.0 - 0.4 mg/dL Alkaline Phosphatase 44 40 - 140 U/L AST 21 0 - 45 U/L ALT 18 0 - 40 U/L BMP Result Value Ref Range Sodium 138 135 - 145 mmol/L Potassium 3.9 3.5 - 5.1 mmol/L Chloride 99 98 - 108 mmol/L Bicarbonate 25 21 - 32 mmol/L Anion Gap 18 10 - 20 mmol/L Glucose 69 65 - 99 mg/dL BUN 19 8 - 25 mg/dL Creatinine 0.87 0.40 - 1.10 mg/dL eGFR 92 >=60 mL/min/1.73 m2 BUN/Creatinine Ratio 21.8 (H) 10.0 - 20.0 Calcium 9.9 8.4 - 10.2 mg/dL POC Urine Result Value Ref Range POC Preg Test, Ur Negative Negative Internal Control Pass Spec Grav, UA 1.005 - 1.025 CBC Auto Differential Result Value Ref Range WBC 8.26 4.50 - 11.00 K/mcL RBC 4.88 4.00 - 5.20 M/mcL Hemoglobin 13.4 12.0 - 16.0 g/dL Hematocrit 39.3 36.0 - 46.0 % MCV 80.5 80.0 - 100.0 fL MCH 27.5 26.0 - 34.0 pg MCHC 34.1 31.0 - 37.0 g/dL Platelets 264 150 - 400 K/mcL RDW - CV 13.1 11.6 - 14.8 % MPV 9.4 9.0 - 15.5 fL Neutrophils 55.0 % Lymphocytes 32.3 % Monocytes 7.3 % Eosinophils 4.8 % Basophils 0.5 % IG Percent 0.10 % Neutrophils Abs 4.54 1.70 - 7.00 K/mcL Lymphocytes Abs 2.67 0.90 - 4.00 K/mcL Monocytes Abs 0.60 0.30 - 0.90 K/mcL Eosinophils Abs 0.40 0.00 - 0.50 K/mcL Basophils Abs 0.04 0.00 - 0.30 K/mcL IG Absolute 0.01 0.00 - 0.30 K/mcL Nucleated RBC 0.0 % Nucleated RBC Abs 0.00 0.00 - 0.00 K/mcL XR Abdomen AP Final Result 1. Findings suggest constipation 2. 3 mm stone in the midpole of the right kidney Workstation ID: [id number] Procedures MDM Number of Diagnoses or Management Options Allergic reaction to drug, initial encounter: Constipation, unspecified constipation type: Diagnosis management comments: Patient remained stable while in the ED. Reviewed results of labs which were not concerning. KUB consistent with constipation. Discussed stopping the triamcinolone as it may have caused a reaction to her skin. Discussed adding magnesium citrate and Colace to her bowel regimen. Patient will follow-up with her PCP. Diagnosis is constipation, drug reaction.Pt is stable for discharge and requests to go home. Discharge instructions were given. Verbalizes understanding of warning signs and when to return to ED. Pt is to follow up with PCP in 2 days. Pt discharged at 12/15/2017 11:16 PM Amount and/or Complexity of Data Reviewed Clinical lab tests: ordered and reviewed Tests in the radiology section of CPT : ordered and reviewed Patient Progress Patient progress: stable . . Clinical Impression: SNOMED CT(R) 1. Constipation, unspecified constipation type CONSTIPATION 2. Allergic reaction to drug, initial encounter ALLERGIC REACTION TO DRUG ED Disposition ED Disposition Condition Comment Discharge Stable Luli Johnson discharged to home/self care in stable condition. Follow-up Information 1. Mercedez Cotto CNP. Specialties: Internal Medicine, Nurse Practitioner [id number] [facility] [id number] Contact information for after-discharge care Follow-up information has not been specified. Discharge Medication List as of 12/15/2017 11:01 PM START taking these medications Details docusate sodium (COLACE) 100 MG capsule Take 1 (one) capsule (100 mg total) by mouth 2 (two) times a day for 10 days., Starting Zahra 12/15/2017, Until 12/25/2017, Print Edwina Coreas, LAWANDA 12/15/17 0860 Pt resting on cart. Neruo intact, vitals stable, lungs CTA, breathing non labored. Mild redness noted to patient's arms and chest. Bowel sounds hypoactive, abd tender to touch. Pt arrives with c/o abdominal pain and constipation. PT reports straining while defecation. Last healthy BM aprox a month ago. Pt takes Miralax at home w/o results. PT also reports that she felt burning after applying her dermatitis cream today. Denies N/V.in this encounter Pt reports lower abdominal pain for the last 2 months has been seen at primary OB and has an upcoming urologist appt. States today pain in bladder area is worse and can't take. Reports nausea and vomiting x1 today. Denies any vaginal discharge or blood in urine. Denies any urinary frequency or burning. Pt c/o abd and pelvic pain,lower back pain since this moore this encounter Formatting of this note may be different from the original. I personally interviewed the patient. I personally examined the patient. I discussed the patient with FINANCE LEAD/PA. I agree with the FINANCE LEAD/PA treatment plan. I agree with the FINANCE LEAD/PA plan of care. I agree with the FINANCE LEAD/PA dispo as documented. Acute onset vertigo. No neck pain. No focal weakness. She had a positive Alejandro-Hallpike. She has had these symptoms before. She has had CTA. She has had MRIs. She said her doctor diagnosed with vertigo, she thinks is incorrect. We are going to refer her to a neurologist. We do not need any more advanced imaging. She has had significant amount of radiation exposure in the past, these similar symptoms to before. I do not think this is a new neurosurgical or neurovascular emergency. She will be discharged at this time. BP: 105/62 Heart Rate: 76 Temp: 98.2 F (36.8 C) Resp: 14 SpO2: 100 % Physical Exam HRRR LCTA Abd soft w/o R/r/g nih 0,gcs 15 Medications Administered (if any) Medications sodium chloride 0.9% (NS) bolus 1,000 mL (0 mL Intravenous Stopped 02/15/182056) ondansetron (ZOFRAN) injection 4 mg (4 mg Intravenous Given 02/15/181913) Laboratory Results Labs Reviewed BASIC METABOLIC PANEL - Abnormal; Notable for the following: Result Value Glucose 102 (*) BUN/Creatinine Ratio 20.3 (*) Calcium 10.4 (*) All other components within normal limits Narrative: The eGFR should be used for monitoring renal function only and not for medication dosing. URINALYSIS - Abnormal; Notable for the following: Clarity, Urine Cloudy (*) Blood, Urine Small (*) Leukocyte Esterase, Urine Large (*) WBCs, Urine 74 (*) RBCs, Urine 6 (*) Bacteria, Urine Rare (*) WBC Clumps, Urine Rare (*) Squamous Epithelial 13 (*) Mucus, Urine Few (*) All other components within normal limits Narrative: Microscopic examination is performed on all urinalysis samples and only positive findings are reported. The test for blood on the chemical analytic portion of urinalysis may also be positive due to hemoglobinuria and myoglobinuria and if red blood cells are present they are quantified by microscopic examination. POC , URINE - Normal CBC AND DIFFERENTIAL Narrative: The following orders were created for panel order CBC w/ Diff. Procedure Abnormality Status --------- ------ CBC Auto Differential[[id number]] Final result Please view results for these tests on the individual orders. CBC WITH AUTO DIFFERENTIAL Imaging Results CT Head Or Brain Without Contrast Final Result No acute intracranial abnormality. Workstation ID: [id number] Procedures . . Pt resting in cart. Cart in low, locked position with side rails up. Call light within reach. No visitors at bedside. No acute distress. No complaints. Pt states she vomited. No emesis in emesis bag, at bedside. Pt states she feels like everything is spinning. Pt c/o chest burning with emesis. Pt c/o N/V. Pt states she has had sxs all day but sxs worsened a few minutes prior to arrival. Pt states she felt like she was going to faint. Pt states she tried taking dizzy medicine in the past and it made me vomit and my doctor told me that there probably isn't any medicine I can take for the dizzy. Pt states she was dx'd with vertigo but states she is concerned that it is something worse. Patient reports a headache, dizziness and tingling in her toes and feet as well as nausea and vomiting. Actively vomiting during triage, yellow emesis. She states the emesis mclaughlin her throat.in this encounter Patient waiting in [facility] for ride home. ED Attestation: I was personally available for consult in the emergency department. I have reviewed the chart and agree with the documentation as recorded by the BRIAN (Advanced Practice Provider), including the assessment, treatment plan, and disposition. Formatting of this note may be different from the original. PCP - Mercedez Cotto, GARAGE LABORER Chief Complaint Patient presents with Back Pain HPI 27-year-old female with a history of alopecia, anxiety with depression, eczema, irregular menstrual cycle, preeclampsia, and neoplasm of pituitary gland presents with chief complaint of back pain. She states her back pain onset 4 days ago gradually during the middle of the day while she was sitting at home watching TV with her son. She denies any fall or any traumatic injury. She states she gradually began noticing aching pain diffusely to her thoracic and lumbar spine. She does report some radiation to her bilateral buttocks. She states the pain is constant S, tingling, or weakness to her extremities. She denies bowel or bladder incontinence. She still has been urinating, and denies any urinary retention. She denies any chest pain or shortness of breath. She denies abdominal pain. She denies any pleuritic pain. She denies any history of IV drug use. She denies any rash or erythema to her back. She still has been ambulatory without assistance. She denies any saddle anesthesia. She denies dysuria, hematuria, or urgency. She does report some mild urinary frequency. She denies any odor to her urine. She states her last menstrual cycle was a couple of months ago, but she has irregular menstrual cycles at baseline. She denies any pelvic pain, vaginal bleeding, or discharge. She denies any rectal pain. She states she was going to see her PCP for this a few days ago but she had too many other appointments to do so. She is states she has been trying Aspercreme and ibuprofen with mild relief. Review of Systems Constitutional: No fevers Skin: No rash Eyes: No scleral icterus ENMT: No drooling Genitourinary: No hematuria Endocrine: No polydipsia Neurologic: No new face asymmetry Psychiatric: No hallucinations Hematologic: No petechiae or purpura Allergic/Immunologic: No urticaria Past Medical History Past Medical History: Diagnosis Date Alopecia Alopecia areata Anxiety with depression Eczema Irregular menstrual cycle Mental Disorder DEPRESSION AND ANGER ISSUE,ANXIETY Neoplasm of pituitary gland Preeclampsia Past Surgical History Past Surgical History: Procedure Laterality Date OTHER SURGICAL HISTORY wisdom teeth Family History Family History Problem Relation Age of Onset Hypertension Mother Hypertension Maternal Grandfather Social History Social History Social History Marital status: Single Spouse name: N/A Number of children: N/A Years of education: N/A Occupational History Not on file. Social History Main Topics Smoking status: Never Smoker Smokeless tobacco: Never Used Alcohol use No Drug use: No Sexual activity: Yes Partners: Male control/ protection: IUD Other Topics Concern Not on file Social History Narrative No narrative on file Allergies Allergies Allergen Reactions Ciprofloxacin-Hydrocortisone Swelling Diphenhydramine Swelling Bactrim [Sulfamethoxazole-Trimethoprim] Rash and Hives Benadryl [Diphenhydramine Hcl] Rash and Hives Ciprofloxacin Rash and Hives Hydrocortisone Rash and Hives Sulfa (Sulfonamide Antibiotics) Rash and Hives Medications Luli Johnson Home Medication Instructions Prior to Surgery SARITHA:[id number] Printed on:03/11/18 2302 Medication Information Take last dose on Take the morning of surgery Comment(s) acetaminophen (TYLENOL) 325 MG tablet Take 2 (two) tablets (650 mg total) by mouth every 6 (six) hours as needed for pain . ARIPiprazole (ABILIFY) 5 MG tablet Take 5 mg by mouth nightly . ascorbate calcium (VITAMIN C ORAL) Take by mouth. benztropine (COGENTIN) 0.5 MG tablet Take 0.5 mg by mouth every evening . betamethasone valerate (VALISONE) 0.1 % cream Apply 1-2 times per day to active eczema. bran/gum/fib/daniel/psyl/kelp/pec (FIBER 6 ORAL) Take by mouth. calcium-vitamin D (calcium-vitamin D) 500 mg(1,250mg) -200 unit per tablet Take 1 tablet by mouth 2 (two) times a day with meals. dicyclomine (BENTYL) 20 mg tablet Take 1 (one) tablet (20 mg total) by mouth every 6 (six) hours as needed (abdominal pain/cramping). fluconazole (DIFLUCAN) 150 MG tablet Take 1 (one) tablet (150 mg total) by mouth once as needed (may repeat in 3 days). medroxyPROGESTERone (PROVERA) 10 MG tablet Take 1 (one) tablet (10 mg total) by mouth daily for 10 days . naproxen (EC NAPROSYN) 500 MG EC tablet Take 1 (one) tablet (500 mg total) by mouth 2 (two) times a day with meals for 14 doses . omeprazole (PRILOSEC) 40 MG capsule Take 1 (one) capsule (40 mg total) by mouth daily for 14 days. ondansetron (ZOFRAN ODT) 4 MG disintegrating tablet Dissolve 1 (one) tablet (4 mg total) on top of tongue every 6 (six) hours as needed for nausea. ondansetron (ZOFRAN) 4 MG tablet Take 1 (one) tablet (4 mg total) by mouth every 6 (six) hours as needed for nausea . vitamin with Ca-Iron-FA 27-1 mg Tab Take 1 tablet by mouth every morning . Physical Exam Initial Vital Signs BP 110/67 Pulse 85 Temp 98.5 F (36.9 C) (Oral) Resp 18 LMP (LMP Unknown) SpO2 98% Vital Signs During ED Visit (as charted by nursing) Patient Vitals for the past 24 hrs: BP Temp Temp src Pulse Resp SpO2 03/11/18 0923 110/67 98.5 F (36.9 C) Oral 85 18 98 % Physical Exam Constitutional: She is oriented to person, place, and time. She appears well-developed and well-nourished. No distress. HENT: Head: Normocephalic and atraumatic. Right Ear: External ear normal. Left Ear: External ear normal. Mouth/Throat: Oropharynx is clear and moist. Eyes: Conjunctivae and EOM are normal. Pupils are equal, round, and reactive to light. No scleral icterus. Neck: Normal range of motion. Neck supple. Cardiovascular: Normal rate, regular rhythm, normal heart sounds and intact distal pulses. Exam reveals no friction rub. No murmur heard. Pulmonary/Chest: Effort normal and breath sounds normal. No respiratory distress. She has no wheezes. She has no rales. Abdominal: Soft. Bowel sounds are normal. She exhibits no distension and no mass. There is no tenderness. There is no rebound and no guarding. Musculoskeletal: Normal range of motion. She exhibits no edema. Cervical back: Normal. She exhibits normal range of motion, no tenderness and no bony tenderness. Thoracic back: She exhibits tenderness. She exhibits normal range of motion, no bony tenderness, no swelling, no edema and no deformity. Lumbar back: She exhibits tenderness. She exhibits normal range of motion, no bony tenderness, no swelling, no edema and no deformity. There is minimal diffuse paraspinal musculature tenderness to the thoracic and lumbar spine without any midline vertebral point tenderness, deformity, or step-off. No rash, erythema, or warmth to the back. 5/5 motor strength to the bilateral upper and lower extremities. Neurological: She is alert and oriented to person, place, and time. She has normal strength and normal reflexes. No sensory deficit. Gait normal. Reflex Scores: Patellar reflexes are 2+ on the right side and 2+ on the left side. 5/5 fitness supervisor strength bilaterally. 5/5 plantarflexion and dorsiflexion strength bilaterally. No saddle anesthesia and examination. Lower extremity DTRs and sensations intact symmetrically. Skin: Skin is warm and dry. Capillary refill takes less than 2 seconds. No rash noted. She is not diaphoretic. No erythema. Psychiatric: She has a normal mood and affect. Her behavior is normal. Nursing note and vitals reviewed. IMPRESSION/ ED COURSE 27-year-old female presented for evaluation of aching thoracic and lumbar back pain onset gradually 4 days ago. She had no fall or any traumatic injury. No numbness, tingling, or weakness to her extremities. No chest pain, shortness of breath, or abdominal pain. No bowel or bladder incontinence. No urinary retention. She did have mild urinary frequency but no odor, dysuria, or hematuria. She was ambulatory without assistance. On examination she had mild diffuse paraspinal musculature tenderness to her thoracic and lumbar spine without any midline vertebral point tenderness, deformity, or step-off. There was no rash or skin changes to the back. No history of IV drug use. She did not have any signs of cord compression. Postvoid residual measured 48 mL. I do not suspect cauda equina syndrome or epidural abscess. Urinalysis showed rare bacteria, 12 RBCs, 8 WBCs, moderate blood, however there were 18 squamous epithelial cells and I suspect contamination. She did tell me that she had a brief episode of vaginal spotting yesterday which was not present today. Urine negative. X-ray of the thoracic spine unremarkable. X-ray of the lumbar spine showed no acute abnormality. The radiologist did comment on a small 3 mm nephrolith within the right kidney which appears unchanged from an exam in 2018 on December 15. The patient was updated on results. She was given a tablet of [place] in the emergency department for her pain. She did have a ride home. I suspect musculoskeletal pain. I do not see signs of infection. She was given a prescription for Tylenol and naproxen at discharge and was asked to apply heat at home. She was asked to follow-up closely with her primary care provider and she was given strict return precautions. She was agreeable with this plan. Stable at discharge. . . FINAL DIAGNOSIS SNOMED CT(R) 1. Back pain, unspecified back location, unspecified back pain laterality, unspecified chronicity BACKACHE Labs Reviewed URINALYSIS - Abnormal; Notable for the following: Result Value Clarity, Urine Hazy (*) Blood, Urine Moderate (*) WBCs, Urine 8 (*) RBCs, Urine 12 (*) Bacteria, Urine Rare (*) Squamous Epithelial 18 (*) All other components within normal limits Narrative: Microscopic examination is performed on all urinalysis samples and only positive findings are reported. The test for blood on the chemical analytic portion of urinalysis may also be positive due to hemoglobinuria and myoglobinuria and if red blood cells are present they are quantified by microscopic examination. POC , URINE Radiographic Imaging (if any) During ED Visit XR Thoracic Spine 3 Views (Standard) Final Result Normal x-ray of the thoracic and lumbar spine Small 3 mm nephrolith within the right kidney. This appears unchanged from the December 15 2017 exam Workstation ID: [id number] Lumbar Spine 2-3 Views (Standard) Final Result Normal x-ray of the thoracic and lumbar spine Small 3 mm nephrolith within the right kidney. This appears unchanged from the December 15 2017 exam Workstation ID: [id number] Medications Ordered/Given During ED Visit Medications HYDROcodone-acetaminophen (NORCO) 5-325 mg per tablet 1 tablet (1 tablet Oral Given 03/11/18 1033) Procedures Eyad Willett PA-C 03/11/18 1149 Atraumatic back pain that radiates into both legs for two days. Bed: 13 Expected date: Expected time: Means of arrival: Comments: Medic 806; Back painin this encounter Patient waiting in lobby for ride home. ED Attestation: I was personally available for consult in the emergency department. I have reviewed the chart and agree with the documentation as recorded by the BRIAN (Advanced Practice Provider), including the assessment, treatment plan, and disposition. Formatting of this note may be different from the original. PCP - Mercedez Cotto, GARAGE LABORER Chief Complaint Patient presents with Back Pain HPI 27-year-old female with a history of alopecia, anxiety with depression, eczema, irregular menstrual cycle, preeclampsia, and neoplasm of pituitary gland presents with chief complaint of back pain. She states her back pain onset 4 days ago gradually during the middle of the day while she was sitting at home watching TV with her son. She denies any fall or any traumatic injury. She states she gradually began noticing aching pain diffusely to her thoracic and lumbar spine. She does report some radiation to her bilateral buttocks. She states the pain is constant S, tingling, or weakness to her extremities. She denies bowel or bladder incontinence. She still has been urinating, and denies any urinary retention. She denies any chest pain or shortness of breath. She denies abdominal pain. She denies any pleuritic pain. She denies any history of IV drug use. She denies any rash or erythema to her back. She still has been ambulatory without assistance. She denies any saddle anesthesia. She denies dysuria, hematuria, or urgency. She does report some mild urinary frequency. She denies any odor to her urine. She states her last menstrual cycle was a couple of months ago, but she has irregular menstrual cycles at baseline. She denies any pelvic pain, vaginal bleeding, or discharge. She denies any rectal pain. She states she was going to see her PCP for this a few days ago but she had too many other appointments to do so. She is states she has been trying Aspercreme and ibuprofen with mild relief. Review of Systems Constitutional: No fevers Skin: No rash Eyes: No scleral icterus ENMT: No drooling Genitourinary: No hematuria Endocrine: No polydipsia Neurologic: No new face asymmetry Psychiatric: No hallucinations Hematologic: No petechiae or purpura Allergic/Immunologic: No urticaria Past Medical History Past Medical History: Diagnosis Date Alopecia Alopecia areata Anxiety with depression Eczema Irregular menstrual cycle Mental Disorder DEPRESSION AND ANGER ISSUE,ANXIETY Neoplasm of pituitary gland Preeclampsia Past Surgical History Past Surgical History: Procedure Laterality Date OTHER SURGICAL HISTORY wisdom teeth Family History Family History Problem Relation Age of Onset Hypertension Mother Hypertension Maternal Grandfather Social History Social History Social History Marital status: Single Spouse name: N/A Number of children: N/A Years of education: N/A Occupational History Not on file. Social History Main Topics Smoking status: Never Smoker Smokeless tobacco: Never Used Alcohol use No Drug use: No Sexual activity: Yes Partners: Male control/ protection: IUD Other Topics Concern Not on file Social History Narrative No narrative on file Allergies Allergies Allergen Reactions Ciprofloxacin-Hydrocortisone Swelling Diphenhydramine Swelling Bactrim [Sulfamethoxazole-Trimethoprim] Rash and Hives Benadryl [Diphenhydramine Hcl] Rash and Hives Ciprofloxacin Rash and Hives Hydrocortisone Rash and Hives Sulfa (Sulfonamide Antibiotics) Rash and Hives Medications Luli Johnson Home Medication Instructions Prior to Surgery SARITHA:[id number] Printed on:03/11/18 8660 Medication Information Take last dose on Take the morning of surgery Comment(s) acetaminophen (TYLENOL) 325 MG tablet Take 2 (two) tablets (650 mg total) by mouth every 6 (six) hours as needed for pain . ARIPiprazole (ABILIFY) 5 MG tablet Take 5 mg by mouth nightly . ascorbate calcium (VITAMIN C ORAL) Take by mouth. benztropine (COGENTIN) 0.5 MG tablet Take 0.5 mg by mouth every evening . betamethasone valerate (VALISONE) 0.1 % cream Apply 1-2 times per day to active eczema. bran/gum/fib/daniel/psyl/kelp/pec (FIBER 6 ORAL) Take by mouth. calcium-vitamin D (calcium-vitamin D) 500 mg(1,250mg) -200 unit per tablet Take 1 tablet by mouth 2 (two) times a day with meals. dicyclomine (BENTYL) 20 mg tablet Take 1 (one) tablet (20 mg total) by mouth every 6 (six) hours as needed (abdominal pain/cramping). fluconazole (DIFLUCAN) 150 MG tablet Take 1 (one) tablet (150 mg total) by mouth once as needed (may repeat in 3 days). medroxyPROGESTERone (PROVERA) 10 MG tablet Take 1 (one) tablet (10 mg total) by mouth daily for 10 days . naproxen (EC NAPROSYN) 500 MG EC tablet Take 1 (one) tablet (500 mg total) by mouth 2 (two) times a day with meals for 14 doses . omeprazole (PRILOSEC) 40 MG capsule Take 1 (one) capsule (40 mg total) by mouth daily for 14 days. ondansetron (ZOFRAN ODT) 4 MG disintegrating tablet Dissolve 1 (one) tablet (4 mg total) on top of tongue every 6 (six) hours as needed for nausea. ondansetron (ZOFRAN) 4 MG tablet Take 1 (one) tablet (4 mg total) by mouth every 6 (six) hours as needed for nausea . vitamin with Ca-Iron-FA 27-1 mg Tab Take 1 tablet by mouth every morning . Physical Exam Initial Vital Signs BP 110/67 Pulse 85 Temp 98.5 F (36.9 C) (Oral) Resp 18 LMP (LMP Unknown) SpO2 98% Vital Signs During ED Visit (as charted by nursing) Patient Vitals for the past 24 hrs: BP Temp Temp src Pulse Resp SpO2 03/11/18 0923 110/67 98.5 F (36.9 C) Oral 85 18 98 % Physical Exam Constitutional: She is oriented to person, place, and time. She appears well-developed and well-nourished. No distress. HENT: Head: Normocephalic and atraumatic. Right Ear: External ear normal. Left Ear: External ear normal. Mouth/Throat: Oropharynx is clear and moist. Eyes: Conjunctivae and EOM are normal. Pupils are equal, round, and reactive to light. No scleral icterus. Neck: Normal range of motion. Neck supple. Cardiovascular: Normal rate, regular rhythm, normal heart sounds and intact distal pulses. Exam reveals no friction rub. No murmur heard. Pulmonary/Chest: Effort normal and breath sounds normal. No respiratory distress. She has no wheezes. She has no rales. Abdominal: Soft. Bowel sounds are normal. She exhibits no distension and no mass. There is no tenderness. There is no rebound and no guarding. Musculoskeletal: Normal range of motion. She exhibits no edema. Cervical back: Normal. She exhibits normal range of motion, no tenderness and no bony tenderness. Thoracic back: She exhibits tenderness. She exhibits normal range of motion, no bony tenderness, no swelling, no edema and no deformity. Lumbar back: She exhibits tenderness. She exhibits normal range of motion, no bony tenderness, no swelling, no edema and no deformity. There is minimal diffuse paraspinal musculature tenderness to the thoracic and lumbar spine without any midline vertebral point tenderness, deformity, or step-off. No rash, erythema, or warmth to the back. 5/5 motor strength to the bilateral upper and lower extremities. Neurological: She is alert and oriented to person, place, and time. She has normal strength and normal reflexes. No sensory deficit. Gait normal. Reflex Scores: Patellar reflexes are 2+ on the right side and 2+ on the left side. 5/5 fitness supervisor strength bilaterally. 5/5 plantarflexion and dorsiflexion strength bilaterally. No saddle anesthesia and examination. Lower extremity DTRs and sensations intact symmetrically. Skin: Skin is warm and dry. Capillary refill takes less than 2 seconds. No rash noted. She is not diaphoretic. No erythema. Psychiatric: She has a normal mood and affect. Her behavior is normal. Nursing note and vitals reviewed. IMPRESSION/ ED COURSE 27-year-old female presented for evaluation of aching thoracic and lumbar back pain onset gradually 4 days ago. She had no fall or any traumatic injury. No numbness, tingling, or weakness to her extremities. No chest pain, shortness of breath, or abdominal pain. No bowel or bladder incontinence. No urinary retention. She did have mild urinary frequency but no odor, dysuria, or hematuria. She was ambulatory without assistance. On examination she had mild diffuse paraspinal musculature tenderness to her thoracic and lumbar spine without any midline vertebral point tenderness, deformity, or step-off. There was no rash or skin changes to the back. No history of IV drug use. She did not have any signs of cord compression. Postvoid residual measured 48 mL. I do not suspect cauda equina syndrome or epidural abscess. Urinalysis showed rare bacteria, 12 RBCs, 8 WBCs, moderate blood, however there were 18 squamous epithelial cells and I suspect contamination. She did tell me that she had a brief episode of vaginal spotting yesterday which was not present today. Urine negative. X-ray of the thoracic spine unremarkable. X-ray of the lumbar spine showed no acute abnormality. The radiologist did comment on a small 3 mm nephrolith within the right kidney which appears unchanged from an exam in 2018 on December 15. The patient was updated on results. She was given a tablet of [place] in the emergency department for her pain. She did have a ride home. I suspect musculoskeletal pain. I do not see signs of infection. She was given a prescription for Tylenol and naproxen at discharge and was asked to apply heat at home. She was asked to follow-up closely with her primary care provider and she was given strict return precautions. She was agreeable with this plan. Stable at discharge. . . FINAL DIAGNOSIS SNOMED CT(R) 1. Back pain, unspecified back location, unspecified back pain laterality, unspecified chronicity BACKACHE Labs Reviewed URINALYSIS - Abnormal; Notable for the following: Result Value Clarity, Urine Hazy (*) Blood, Urine Moderate (*) WBCs, Urine 8 (*) RBCs, Urine 12 (*) Bacteria, Urine Rare (*) Squamous Epithelial 18 (*) All other components within normal limits Narrative: Microscopic examination is performed on all urinalysis samples and only positive findings are reported. The test for blood on the chemical analytic portion of urinalysis may also be positive due to hemoglobinuria and myoglobinuria and if red blood cells are present they are quantified by microscopic examination. POC , URINE Radiographic Imaging (if any) During ED Visit XR Thoracic Spine 3 Views (Standard) Final Result Normal x-ray of the thoracic and lumbar spine Small 3 mm nephrolith within the right kidney. This appears unchanged from the December 15 2017 exam Workstation ID: [id number] XR Lumbar Spine 2-3 Views (Standard) Final Result Normal x-ray of the thoracic and lumbar spine Small 3 mm nephrolith within the right kidney. This appears unchanged from the December 15 2017 exam Workstation ID: [id number] Medications Ordered/Given During ED Visit Medications HYDROcodone-acetaminophen (NORCO) 5-325 mg per tablet 1 tablet (1 tablet Oral Given 03/11/18 1033) Procedures Eyad Willett PA-C 03/11/18 1149 Atraumatic back pain that radiates into both legs for two days. Bed: 13 Expected date: Expected time: Means of arrival: Comments: Medic 806; Back painin this encounter EMERGENCY PHYSICIAN ATTESTATION PCP: Mercedez Cotto CNP Encounter Date: 03/30/18 Chief Complaint: No chief complaint on file. History of Presenting Illness: 27-year-old female presented today with complaint of constipation. Generalized abdominal discomfort. Feels similar. States that she stopped taking her stool softeners because she did not like it the way it made her feel. History provided by: Patient Medical Decision Making/ED Course: 27-year-old female no acute distress. Abdomen is soft, nontender nondistended. No guarding or rebound. Cardiac is rate and rhythm without murmur. Lungs clear. Patient had x-ray that showed significant stool burden, unchanged from previous. Evidence for bowel obstruction labs results reassuring. Vital signs are reassuring without any symptoms of infection. Patient was given multiple prescriptions for home use to help with her constipation. Was asked to return for worsening symptoms. Procedures PACU Vitals 03/30/18 1932 BP: 133/83 Pulse: (!) 104 Resp: 16 Temp: 98.3 F (36.8 C) SpO2: 100% Attestation I have personally seen and examined this patient (face to face). I have fully participated in the care of this patient. I have reviewed and agree with all pertinent clinical information including history, physical exam, labs, radiographic studies and the plan. I have also reviewed and agree with the medications, allergies and past medical history sections for this patient. . in this encounter Split/shared visit note and ED attestation: I personally interviewed the patient. I personally examined the patient. I discussed the patient with FINANCE LEAD/PA. I agree with the FINANCE LEAD/PA treatment plan. I agree with the FINANCE LEAD/PA plan of care. I agree with the FINANCE LEAD/PA dispo as documented. She presented to the emergency room with crampy abdominal pain and diarrhea. Does have a long-standing history of IBS and she follows through [facility] for gastroenterology. She is getting started in an IBS class. She has been tracking what she is eating and keeping a log in the diary. She keep track of her stools also. She went off dairy for several days to see if that would change her symptoms. On my examination she seems diffusely tender through the abdomen with active bowel sounds. I personally reviewed the results of her blood work and CT scan with her in the room. She did provide us a stool sample and so we are sending that off since there was some concern amongst her family that she had a parasite. My suspicion is not very high. We will go for symptomatic relief at this point time and have her continue to work with her GI team. We also talked to her at length about using my chart and recommended she try to get signed up for that. . documented in this encounter Reviewed discharge instructions with pt. She states [facility] is her ride and will wait on them by the ED. Pt ambulated to ED per self. Pt states she can not eat breakfast now, she has nausea. Pt now with forceful non productive cough. Report given to Bernie BARRIGA all questions answered. 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 Patient speaking in full sentences, controlling secretions. NAD. Given throat lozenges for comfort. Strong, dry, non-productive cough noted. I personally interviewed the patient. I personally examined the patient. I discussed the patient with FINANCE LEAD/PA. I agree with the FINANCE LEAD/PA treatment plan. I agree with the FINANCE LEAD/PA plan of care. I agree with the FINANCE LEAD/PA dispo as documented. Patient had no reproducible abdominal pain or tenderness palpation on my examination. She has no peritoneal signs. . . documented in this encounter Associated Order(s): EKG 12-lead I personally interviewed the patient. I personally examined the patient. I discussed the patient with FINANCE LEAD/PA. I agree with the FINANCE LEAD/PA treatment plan. I agree with the FINANCE LEAD/PA plan of care. I agree with the FINANCE LEAD/PA dispo as documented. She is here with back pain nausea. She will be discharged home she had ultrasound that showed no hydronephrosis . EKG 12-lead Date/Time: 10/25/2019 10:41 PM Performed by: Antwan Yeung MD Authorized by: Marilu Lynn PA-C Interpreted by ED attending physician Rhythm: sinus rhythm BPM: 87 Clinical impression: normal ECG documented in this encounter OPERATIVE REPORT Date of Service: 10/31/19 Clinician: Yan Zuñiga MD OR Staff: Bisque Placer: Ankur Salazar RN Pool Finisher: Irvin Tompkins, TECHNOLOGIST Bisque Placer Relief: Bárbara Mendez RN Scrub Person: Kori Ferrell RN Anesthesia Staff: Anesthesiologist: Yan Cardozo MD Surgeon(s):Surgeon(s) and Role: * Yan Zuñiga MD - Primary Patient Name: Luli Johnson MR #: [id number] PREOPERATIVE DIAGNOSIS: 1. Right Renal Calculus 2. Right flank pain POSTOPERATIVE DIAGNOSIS: Same PROCEDURES PERFORMED 1. Cystoscopy with right ureteral catheterization and retrograde pyelogram 2. Intraoperative interpretation of radiographic images (retrograde) by surgeon 3. Ureteroscopy with basket stone extraction and ureteral stent placement ANESTHESIA: General anesthesia. INDICATIONS FOR THE PROCEDURE: Luli Johnson is a 28 y.o. female who continues with right flank pain. Axial imaging demonstrated a right non-obstructing Renal calculus. Risks, benefits, and alternatives were discussed with the patient; they elected to proceed with ureteroscopic laser lithotripsy. The risks of the procedure included bleeding, infection, injury to bladder, kidney, ureter, and need for further procedures were discussed with the patient preoperatively. They voiced understanding ofthese risks and gave their written consent to proceed. DESCRIPTION OF THE PROCEDURE: The patient was brought to the operating theater, identified by name and date of and placed supine on the operating room table. After the induction of general anesthesia, The patient was repositioned in the dorsal lithotomy position and the external genitalia were prepped and draped in the standard sterile surgical fashion. Cystourethroscopy was performed with a rigid cystourethroscope which revealed the bladder was free of any gross tumors, masses, or lesions. Both ureteral orifices were normal in position and appearance. The right ureteral orifice was intubated with a ureteral catheter and a retrograde pyelogram was performed. The real time retrograde images revealed that the ureter was of normal course and caliber. There was no filling defects in either the ureter or the renal pelvis. There was no hydronephrosis. A guide wire was then passed into the right renal pelvis under fluoroscopic guidance. A flexible ureteroscope was then advanced over the wire into the renal pelvis. The wire was removed. Using a retrograde pyelogram as a roadmap each individual calyx was inspected. There was a stone seen in 1 of the lower pole calyces. The calyces were again inspected. Again there was only 1 stone present. Based on the size of the stone, I thought it was amenable to basket stone extraction. I do not feel the laser was needed to fragment stone. The stone was grasped with a 0 tip nitinol basket. The stone and scope were then slowly backed up the ureter. No other stone fragments were seen. The stone was removed and sent to pathology. The distal ureter did appear to be a little bit edematous. Though this was uncomplicated ureteroscopy, I was concerned that if I did not leave a stent, she would have issues with renal colic. Therefore, the wire was replaced into the renal pelvis. Under fluoroscopic guidance, over the existing guide wire, an ureteral double J stent was advanced into the renal pelvis. The guide wire was removed and fluoroscopic confirmation of satisfactory proximal and distal stent placement was confirmed. The patients bladder was drained of irrigant and this ended the operative procedure. The patient tolerated the procedure without difficulty and was emerged from general anesthesia and taken to the PACU in stable condition. IMPLANTS: 6 x 24 cm right double-J ureteral stent. COMPLICATIONS: None. DISPOSITION: Stable, to recovery room. EBL: Minimal SPECIMEN: None FOLLOW-UP/PLAN: F/U in clinic for stent removal as directed. Yan Zuñiga MD Urology [facility] Office: [email or web address] documented in this encounter I personally interviewed the patient. I personally examined the patient. I discussed the patient with FINANCE LEAD/PA. I agree with the FINANCE LEAD/PA treatment plan. I agree with the FINANCE LEAD/PA plan of care. I agree with the FINANCE LEAD/PA dispo as documented. . 28-year-old female with a history of alopecia, depression, hypertension presents to the ED with complaints of flank pain and hematuria after she underwent a cystoscopy and ureteral stent placement with lithotripsy yesterday. She also was seen at [facility] last night and discharged home, then while having a urinary void last night had a syncopal episode. Denies any chest pain, shortness of breath, did not injure herself in the fall. Patient is already on Keflex for UTI, urinalysis is mostly blood with does show some evidence of infection. She is nontoxic and afebrile. However after several doses of oral medication to manage her pain she still is uncontrolled at this time. We spoke with the on-call urologist who states all the symptoms are expected and continue pain control. documented in this encounter AVS and discharge instructions reviewed with patient. Understanding verbalized, all questions answered. New prescriptions discussed. All home items in patient's possession. Peripheral IV removed per order. Wheelchair offered and provided. Patient escorted downstairs by staff. Seen and examined. Feels better already after IVF. Syncope is chronic issue worsened by pain in setting of stent placement. Imaging non acute besides poorly functioning stent which is planned to be removed this coming Tuesday. Kidney function stable. Patient wants to go home. Discussed with Dr. Rahman and we will cont current plan with stent removal Tuesday as outpatient. Recommended she cont aggressive bowel regimen at home and to utilize her compression stockings. Reanna Rowley DO C: [phone] [facility] Plan for discharge reviewed: Yes How will patient get home: With Mother, Matilda Davey ([phone]) Patient's preferred pharmacy reviewed, and Meds to Beds option discussed and refused. documented in this encounter An After Visit Summary was printed, reviewed and given to the patient. PIV removed without complications and dressing applied. OPERATIVE REPORT Date of Service: 11/05/19 Clinician: Yan Zuñiga MD OR Staff: Bisque Placer: Elyse Magaña RN Scrub Person: Ailyn Green RN Anesthesia Staff: Anesthesiologist: Yan Her MD Surgeon(s):Surgeon(s) and Role: * Yan Zuñiga MD - Primary Patient Name: Luli Johnson MR #: [id number] PREOPERATIVE DIAGNOSIS: 1. History of right ureteroscopy s/p ureteral stent 2. Right renal colic POSTOPERATIVE DIAGNOSIS: Same PROCEDURES PERFORMED 1. Cystoscopy with right ureteral stent removal ANESTHESIA: MAC INDICATIONS FOR THE PROCEDURE: Luli Johnson is a 29 y.o. female who underwent ureteroscopy on 10/31/19. A ureteral stent was left at that time. She has had numerous ED visits for renal colic. After discussing the risks and benefits with the patient and her mother, the decision was made to remove the stent today. They voiced understanding ofthese risks and gave their written consent to proceed. DESCRIPTION OF THE PROCEDURE: The patient was brought to the operating theater, identified by name and date of and placed supine on the operating room table. After the induction of MAC, the patient was repositioned in the frog leg position and the external genitalia were prepped and draped in the standard sterile surgical fashion. A flexible cystoscope was inserted through the urethra into the bladder and the stent was seen protruding from the ureteral orifice. A visual exam revealed no tumors or areas of suspicion. The stent was grasped with cystoscopic graspers and removed. The stent was examined and noted to be present in its entirety. The patient tolerated the procedure without difficulty and was taken to the PACU in stable condition. IMPLANTS: None COMPLICATIONS: None. DISPOSITION: Stable, to recovery room. EBL: Minimal SPECIMEN: None FOLLOW-UP/PLAN: F/U in clinic to discuss stone prevention Yan Zuñiga MD Urology [facility] Office: [email or web address] Problem: Actual or potential alteration in health Goal: Knowledge of Interdisciplinary Plan of Care Outcome: Partially Met Note: Pt educated on current plan of care. Goal: Knowledge of Enviroment Outcome: Partially Met Note: Pt educated on current environment. Problem: Pain Goal: Manage acute pain Outcome: Partially Met Note: Pt educated on pain relieving options. Problem: Falls, Risk of Goal: Absence of falls Outcome: Partially Met Note: Pt educated on the importance of calling for assistance with ambulation. documented in this encounter AVS and discharge instructions reviewed with patient. Understanding verbalized, all questions answered. All home items in patient's possession. Peripheral IV removed per order. Wheelchair offered and pt refused. Patient escorted downstairs by staff. Plan for discharge reviewed: Yes How will patient get home: MOTHER documented in this encounter ED Attestation: I personally interviewed the patient. I personally examined the patient. I discussed the patient with FINANCE LEAD/PA. I agree with the FINANCE LEAD/PA treatment plan. I agree with the FINANCE LEAD/PA plan of care. I agree with the FINANCE LEAD/PA dispo as documented. I have personally taken the patient's history, performed an exam and agree with the physical findings, clinical impression and management plan. I discussed case with him/her and agree with the assessment and plan. I was involved in all medical decision making in the patient's care. 29 y.o. female with history of chronic UTIs and urinary tension who presents with suprapubic pain patient says is been 12 hours since she urinated and is able to straight cath but is unable to say why she has not straight cath as she does have supplies at home no fevers or chills no nausea or vomiting Physical Exam Vital signs reviewed. CONSTITUTIONAL: Well-appearing and well-nourished. EYES: No conjunctival injection. No icterus. PERRL HEENT: External ears normal, external nose normal. Mouth and throat clear, MMM. NECK: Trachea midline, no crepitus, no rigidity RESPIRATORY: Clear to auscultation. No wheeze, no rhonchi. Equal aeration b/l, no respiratory distress CHEST: Equal chest expansion no tenderness, no crepitus CARDIOVASCULAR: Regular rate and rhythm. No murmurs. No cyanosis. Equal radial pulses, equal dp/pt pulses GASTROINTESTINAL: Abdomen soft, non-distended, suprapubic abdominal discomfort without focal tenderness, no guarding or rigidity. NEUROLOGICAL: Awake, alert and oriented. CN grossly intact. No extremity weakness or sensory deficit. PSYCHOLOGICAL: The patient's mood and manner are appropriate. Grooming and personal hygiene are appropriate. INTEGUMENTARY: Warm and dry. No rash noted. MUSCULOSKELETAL: There are no deformities noted. No CVA tenderness MDM: Patient presents as above patient was straight cathed for urine no sign of infection blood work is negative no signs of renal failure no leukocytosis. She had multiple CTs in the past I do not feel he requires additional CT, Patient presents with abdominal pain. Differential was broad and included but not limited to: Less likely AAA or aortic dissection with no syncope, no pulsatile mass, no hypotension, no ripping/tearing pain, good equal distal pulses without palor, NV intact distally and young age. Less likely Mesenteric ischemia with no pain out of proportion to exam, pt is non toxic appearing Les likely Bowel obstruction as tolerating PO, having BM Less likely Cholecystitis/cholangitis with no sig ruq ttp, no fever, no jaundice Less likely esophageal rupture with no crepitus, no pain with flexion of neck, no dysphagia Less likely appendicitis with tolerating po no sig RLQ ttp, negative rovsings, no sig leukocytosis Less likely Ovarian torsion/TOA with no sudden onset of acute pain with n/v, no recent history of vigorous activity, no palpable mass, non toxic appearing, no fever Less likely Ectopic - b-hcg negative Less likely incarcerated or strangulated hernia with no palpable hernia or mass, no overlying skin discoloration Less likely diverticulitis with no fever, no significant diarrhea, tolerating po Less likely kidney stone/pyelo with no cva tenderness, pain is not colicky in nature, no hematuria no fever. Less likely PID with no discharge and unremarkable urinalysis. I discussed the plan for no CT scan with the pt as I feel the risks outweigh the benefits at this time. I discussed the findings and differential diagnosis with the patient and discussed the plan of care for pcp follow up and discharge home. I discussed the warning signs and symptoms to return to the ED at any time and the patient voiced understanding and agreed with these plans. The patient was advised that some disease presents atypically and that all pathology is not able to be ruled out. However, with reasonable certainty, I do feel the patient is stable to be discharged home. Management discussed with the patient. The patient shows understanding, and is comfortable with, the above, the plan for discharge, return signs as discussed verbally, outpatient follow up closely, therapy and symptomatic care. The patient has remained suitable for discharge and will return for any concerns, at this time the patient is stable for discharge. Impression: 1. Abdominal pain, unspecified abdominal location 2. Flank pain 3. Urinary retention Procedures Alhaji Valenzuela MD documented in this encounter I personally interviewed the patient. I personally examined the patient. I discussed the patient with FINANCE LEAD/PA. I agree with the FINANCE LEAD/PA treatment plan. I agree with the FINANCE LEAD/PA plan of care. I agree with the FINANCE LEAD/PA dispo as documented. . . Laboratory Results Labs Reviewed CHEM 7 - Abnormal; Notable for the following components: Result Value BUN/Creatinine Ratio 20.8 (*) All other components within normal limits Narrative: The eGFR should be used for monitoring renal function only and not for medication dosing. URINALYSIS - Abnormal; Notable for the following components: Blood, Urine Moderate (*) RBCs, Urine 6 (*) All other components within normal limits Narrative: Microscopic examination is performed on all urinalysis samples and only positive findings are reported. The test for blood on the chemical analytic portion of urinalysis may also be positive due to hemoglobinuria and myoglobinuria and if red blood cells are present they are quantified by microscopic examination. CBC WITH AUTO DIFFERENTIAL - Abnormal; Notable for the following components: Hemoglobin 11.6 (*) Hematocrit 35.6 (*) All other components within normal limits HEPATIC FUNCTION PANEL - Normal LIPASE - Normal HCG URINE, QUALITATIVE - Normal CBC AND DIFFERENTIAL Narrative: The following orders were created for panel order CBC w/ Diff. Procedure Abnormality Status --------- ------ CBC Auto Differential[[id number]] Abnormal Final result Please view results for these tests on the individual orders. Imaging Results No orders to display No respiratory distress. No acute change in mental status. New nausea and flank pain in patient with a history of kidney stones who arrives today in the emergency department for evaluation treatment of her condition. Symptomatic treatment and PCP follow-up are recommended. I do feel patient can be safely discharged from the emergency department at this time in satisfactory condition. We discussed presence of renal cysts on previous US. Associated Order(s): EKG 12-lead EKG 12-lead Date/Time: 12/15/2019 1:37 AM Performed by: Nathan Latham MD Authorized by: Florin Nuñez PA-C Interpreted by ED attending physician Comparison: not compared with previous ECG Rhythm: sinus rhythm BPM: 90 Conduction: incomplete RBBB Clinical impression: abnormal ECG documented in this encounter ED Attestation: I have reviewed the non physician practitioner's documentation, personally taken the patient's history, performed an exam and agree with the physical findings, clinical impression and management plan 29-year-old female presents emergency department with right-sided abdominal pain. Patient is awake and alert. Heart is regular rate and rhythm. Lungs are clear bilaterally. Abdomen is soft with positive bowel sounds. Extremities show no edema. CT abdomen pelvis demonstrated some ascending colon constipation no other acute abnormalities otherwise. documented in this encounter This is a 29-year-old female who presents the emergency room concern for low platelets. The patient reports he was at [facility] and they told her platelets were low and they really explained that so she wants to know more answers about that. She also reports some right-sided back pain which she describes a pressure sensation is worse when she is constipated. No fever. No vomiting. No diarrhea. No blood in her urine. No chest pain or shortness of breath. No pleuritic nature to the pain. Pain is not worse with movement and she denies any numbness, tingling or weakness in her legs. On exam there is no rash or skin changes to the right flank. Her CT from 1 week ago was negative for stone. Her platelet count is normal here. Anticipate discharge with Lidoderm patches and reassurance I personally interviewed the patient. I personally examined the patient. I discussed the patient with FINANCE LEAD/PA. I agree with the FINANCE LEAD/PA treatment plan. I agree with the FINANCE LEAD/PA plan of care. I agree with the FINANCE LEAD/PA dispo as documented. . . documented in this encounter I personally interviewed the patient. I personally examined the patient. I discussed the patient with FINANCE LEAD/PA. I agree with the FINANCE LEAD/PA treatment plan. I agree with the FINANCE LEAD/PA plan of care. I agree with the FINANCE LEAD/PA dispo as documented. Patient is resting comfortably no acute distress on my assessment. Heart is regular rate and rhythm at about 100. Lungs are clear bilaterally. Abdomen is soft, nondistended and nontender on my assessment. Patient notes some mild abdominal cramping, but is mostly concerned because of her constipation and bright red blood per rectum with associated rectal pain when she strains. Patient states that she follows with colorectal surgery for known hemorrhoid and anal fissure and gastroenterology for her IBS-C. Patient states that she tends to do much better with enemas rather than the oral medications. Abdominal exam is benign. Patient is afebrile. Abdominal x-ray was nonobstructive. Patient had reassuring lab work. She was written a prescription for fleets enema. Patient was recommended to call her gastroenterology and colorectal specialist for close follow-up and to return if worsening at any time. . . documented in this encounter AVS and discharge instructions reviewed with patient. Understanding verbalized, all questions answered. New prescriptions discussed. All home items in patient's possession. Peripheral IV removed per order. Wheelchair offered and provided. Patient escorted downstairs by staff. Plan for discharge reviewed: yes How will patient get home: mother Patient's preferred pharmacy reviewed, and Meds to Beds option discussed and refused ED Attestation I personally interviewed the patient. I personally examined the patient. I discussed the patient with FINANCE LEAD/PA. I agree with the FINANCE LEAD/PA treatment plan. I agree with the FINANCE LEAD/PA plan of care. I agree with the FINANCE LEAD/PA dispo as documented. 29 y/o female with h/o nephrolithiasis and psychosis prenset with flank pain Duraiton a few weeks Worsening past 1 week RT flank, radiation to RLQ Associated nausea and vomiting Unable to tolerate PO or meds at home Denies fevers +Urinary frequency No relief with Zofran and Reglan, Ibuprofen Vitals: 12/05/19 1739 12/05/19 2217 BP: 113/79 118/84 BP Location: Right arm Right arm Patient Position: Sitting Sitting Pulse: 98 92 Resp: 16 18 Temp: 98.4 F (36.9 C) TempSrc: Oral SpO2: 98% 99% Weight: 55.3 kg (122 lb) Height: 5' VS reviewed and RN note reviewed GEN: no acute distress, well appearing HEENT: MMM NECK: supple CV: rrr, no mrg; 2+ BT radial and DP pulses; no LE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 Negative for abdominal distention, diarrhea, nausea and vomiting. Genitourinary: Negative for difficulty urinating, dysuria, flank pain, frequency, urgency and vaginal bleeding. Skin: Negative for pallor. All other systems reviewed and are negative. Patient Vitals for the past 24 hrs: BP Temp Temp src Pulse Resp SpO2 Height Weight 03/30/18 1932 133/83 98.3 F (36.8 C) Oral (!) 104 16 100 % 5' 61.2 kg (135 lb) Physical Exam Constitutional: She is oriented to person, place, and time. She appears well-developed and well-nourished. No distress. HENT: Head: Normocephalic and atraumatic. Nose: Nose normal. Eyes: Conjunctivae are normal. Pupils are equal, round, and reactive to light. Neck: Normal range of motion. Cardiovascular: Normal rate, regular rhythm and normal heart sounds. Exam reveals no distant heart sounds and no friction rub. Pulses: Dorsalis pedis pulses are 2+ on the right side, and 2+ on the left side. Pulmonary/Chest: Effort normal. No accessory muscle usage. No tachypnea. No respiratory distress. She has no decreased breath sounds. She has no wheezes. She has no rhonchi. She has no rales. Chest wall is not dull to percussion. She exhibits no mass, no tenderness, no bony tenderness, no laceration, no crepitus, no edema, no deformity, no swelling and no retraction. Abdominal: Soft. Normal appearance and bowel sounds are normal. She exhibits no distension and no mass. There is no tenderness. There is no rigidity, no rebound, no guarding and no CVA tenderness. No hernia. Patient complains of generalized tenderness in the abdomen but has no specific tenderness on exam. Patient has no evidence of acute abdomen on exam. Neurological: She is alert and oriented to person, place, and time. Skin: Skin is warm and dry. No erythema. No pallor. Psychiatric: She has a normal mood and affect. Nursing note and vitals reviewed. Laboratory & Radiographic Imaging (if done): Results for orders placed or performed during the hospital encounter of 03/30/18 BMP Result Value Ref Range Sodium 144 135 - 145 mmol/L Potassium 4.4 3.5 - 5.1 mmol/L Chloride 105 98 - 108 mmol/L Bicarbonate 27 21 - 32 mmol/L Anion Gap 16 10 - 20 mmol/L Glucose 97 65 - 99 mg/dL BUN 15 8 - 25 mg/dL Creatinine 0.79 0.40 - 1.10 mg/dL eGFR 103 >=60 mL/min/1.73 m2 BUN/Creatinine Ratio 19.0 10.0 - 20.0 Calcium 9.9 8.4 - 10.2 mg/dL Hepatic Function Panel (LFT) Result Value Ref Range Total Protein 8.0 6.0 - 8.0 g/dL Albumin 4.7 3.2 - 5.2 g/dL Total Bilirubin 0.2 0.0 - 1.3 mg/dL Bilirubin, Direct <0.1 0.0 - 0.4 mg/dL Alkaline Phosphatase 46 40 - 140 U/L AST 22 0 - 45 U/L ALT 22 0 - 40 U/L Lipase Result Value Ref Range Lipase 28 15 - 65 U/L Urinalysis Result Value Ref Range Color, Urine Yellow Colorless, Yellow Clarity, Urine Hazy (A) Clear Specific [place] 1.024 1.005 - 1.025 pH, Urine 7.0 5.0 - 7.0 Protein, Urine Negative Negative mg/dL Glucose, Urine Negative Negative mg/dL Ketones, Urine Negative Negative mg/dL Bilirubin, Urine Negative Negative Urobilinogen, Urine <2.0 <2.0 mg/dL Blood, Urine Small (A) Negative Nitrite, Urine Negative Negative Leukocyte Esterase, Urine Negative Negative WBCs, Urine 1 0 - 5 /hpf RBCs, Urine 9 (H) 0 - 3 /hpf Bacteria, Urine None Seen None Seen /hpf Squamous Epithelial 4 0 - 4 /hpf Mucus, Urine Rare None Seen, Rare /lpf CBC Auto Differential Result Value Ref Range WBC 9.44 4.50 - 11.00 K/mcL RBC 4.68 4.00 - 5.20 M/mcL Hemoglobin 12.9 12.0 - 16.0 g/dL Hematocrit 39.2 36.0 - 46.0 % MCV 83.8 80.0 - 100.0 fL MCH 27.6 26.0 - 34.0 pg MCHC 32.9 31.0 - 37.0 g/dL Platelets 244 150 - 400 K/mcL RDW - CV 13.2 11.6 - 14.8 % MPV 9.6 9.0 - 15.5 fL Neutrophils 70.4 % Lymphocytes 17.6 % Monocytes 8.1 % Eosinophils 3.3 % Basophils 0.4 % IG Percent 0.20 % Neutrophils Abs 6.65 1.70 - 7.00 K/mcL Lymphocytes Abs 1.66 0.90 - 4.00 K/mcL Monocytes Abs 0.76 0.30 - 0.90 K/mcL Eosinophils Abs 0.31 0.00 - 0.50 K/mcL Basophils Abs 0.04 0.00 - 0.30 K/mcL IG Absolute 0.02 0.00 - 0.30 K/mcL Nucleated RBC 0.0 % Nucleated RBC Abs 0.00 0.00 - 0.00 K/mcL XR Abdomen AP Final Result Nonspecific bowel gas pattern. Stable mild right-sided colonic stool burden. Stable 4 mm right renal calculus. Workstation ID: [id number] Procedures MDM Patient is a 27-year-old female who presents emergency department today with complaints of constipation. Patient states that she is not taking medications [id number] because she does not like the way Miralax has made her feel and stool softeners usually causes her to have liquid stools. Patient states that she has not had a bowel movement 3 days. Patient states that she is having episodes of emesis as well. Patient has basic lab work as you can see above electrolytes remain normal patient has no leukocytosis. Patient does have blood in her urine and patient does have a stable right kidney stone which has been seen on previous CAT scans in the past. Patient also has evidence of a heavy stool burden. Patient will be sent home on a bowel regimen of Colace, milk of magnesia as well as Metamucil. Patient will be instructed follow-up with family physician to be continued on a bowel regimen patient felt comfortable the plan patient was discharged home with strict return precautions to the emergency department. . Clinical Impression: SNOMED CT(R) 1. Constipation, unspecified constipation type CONSTIPATION 2. Kidney stone on right side KIDNEY STONE ED Disposition ED Disposition Condition Comment Discharge Stable Luli Johnson discharged to home/self care in stable condition. Follow-up Information 1. Mercedez Cotto CNP. Specialties: Internal Medicine, Nurse Practitioner Why: For re-evaluation of symptoms [address] [facility] [id number] 2. Preziy ClosetDash.. Specialty: Urology Why: As needed [address] [facility] [address] Contact information for after-discharge care Follow-up information has not been specified. New Prescriptions psyllium husk, with sugar, (METAMUCIL, KONSYL) 3.4 gram packet Take 1 packet by mouth 3 (three) times a day as needed (Until you have regular bowel movements) . docusate sodium (COLACE) 100 MG capsule Take 1 (one) capsule (100 mg total) by mouth 2 (two) times a day as needed for constipation . magnesium hydroxide (MOM) 400 mg/5 mL Susp Take 30 mL (2,400 mg total) by mouth daily . Marnie Felton PA-C 03/30/182135 Pt presents with no bm for 3 days. Pt denies stool softeners states they make me sick. Pt denies seeing pcp regarding the same. Pt with c/o rectal and vaginal pain following grunting to have a bm Pt c/o constipation States unable to have bm in past 3 days in this encounter Pt feeling better. PA aware Purposeful rounds complete. Nausea and dizziness improved. Drinking [place] and eating saltines. No complaints at this time. Pt states she has been diagnosed with vertigo and has been on meclizine in the past. PA updated. Pt complains of dizziness and continued nausea. Leroying PA aware and orders received. Pt states she feels a little better but is still nauseated. ED PROVIDER NOTE [facility] NAME: Luli Johnson AGE: 27 y.o. : 1990 VISIT DATE: 04/30/2018 CSN: [id number] PCP: Mercedez Cotto CNP Chief Complaint Patient presents with Abdominal Pain Emesis Dizziness Ms. Johnson is a 27-year-old female non-smoker with a PMH of alopecia, eczema, depression, anxiety, IBS, neoplasm of pituitary gland who presents to the ED with complaint of abdominal pain, emesis, dizziness. On April 21 she developed generalized abdominal pain, nausea and vomiting. Went to [facility] ED on April 24 for the same symptoms where she states she was hypoxic and tachycardic so they obtain blood cultures and lab work. She was discharged home after she received Zofran and IV fluids. She did not require hospitalization at that time. Followed up with PCP on the , tested negative for the flu, negative for mono, and was sent home with prescription for promethazine. Try the promethazine at home today for nausea because her nausea vomiting returned yesterday to today however she continued to feel nauseous with vomiting therefore presented to the ED for evaluation. Temperature 99.5. Tachycardic 112. She has no history chest pain, shortness of breath, or flank pain. States it itches when she urinates. Denies concern for STI. Denies any sore throat difficulty swallowing. Reports generalized abdominal pressure is 9/10, nonradiating, worse with palpation. No change in bowel movements. Denies drug use. Denies hx of abdominal surgeries. Past Medical History: Diagnosis Date Alopecia Alopecia areata Anxiety with depression Eczema IBS (irritable bowel syndrome) Irregular menstrual cycle Mental Disorder DEPRESSION AND ANGER ISSUE,ANXIETY Neoplasm of pituitary gland Preeclampsia Past Surgical History: Procedure Laterality Date OTHER SURGICAL HISTORY wisdom teeth Family History Problem Relation Age of Onset Hypertension Mother Hypertension Maternal Grandfather Social History Socioeconomic History Marital status: Single Spouse name: Not on file Number of children: Not on file Years of education: Not on file Highest education level: Not on file Social Needs Financial resource strain: Not on file Food insecurity - worry: Not on file Food insecurity - inability: Not on file Transportation needs - medical: Not on file Transportation needs - non-medical: Not on file Occupational History Not on file Tobacco Use Smoking status: Never Smoker Smokeless tobacco: Never Used Substance and Sexual Activity Alcohol use: No Drug use: No Sexual activity: Yes Partners: Male control/protection: IUD Other Topics Concern Not on file Social History Narrative Not on file Previous Medications Medication Sig ARIPiprazole (ABILIFY) 5 MG tablet Take 5 mg by mouth nightly . ascorbate calcium (VITAMIN C ORAL) Take by mouth. benztropine (COGENTIN) 0.5 MG tablet Take 0.5 mg by mouth every evening . betamethasone valerate (VALISONE) 0.1 % cream Apply 1-2 times per day to active eczema. bran/gum/fib/daniel/psyl/kelp/pec (FIBER 6 ORAL) Take by mouth. calcium-vitamin D (calcium-vitamin D) 500 mg(1,250mg) -200 unit per tablet Take 1 tablet by mouth 2 (two) times a day with meals. dicyclomine (BENTYL) 20 mg tablet Take 1 (one) tablet (20 mg total) by mouth every 6 (six) hours as needed (abdominal pain/cramping). fluconazole (DIFLUCAN) 150 MG tablet Take 1 (one) tablet (150 mg total) by mouth once as needed (may repeat in 3 days). (Patient taking differently: Take 150 mg by mouth as needed (may repeat in 3 days) .) [] magnesium hydroxide (MOM) 400 mg/5 mL Susp Take 30 mL (2,400 mg total) by mouth daily . medroxyPROGESTERone (PROVERA) 10 MG tablet Take 1 (one) tablet (10 mg total) by mouth daily for 10 days . omeprazole (PRILOSEC) 40 MG capsule Take 1 (one) capsule (40 mg total) by mouth daily for 14 days. ondansetron (ZOFRAN) 4 MG tablet Take 1 (one) tablet (4 mg total) by mouth every 6 (six) hours as needed for nausea . vitamin with Ca-Iron-FA 27-1 mg Tab Take 1 tablet by mouth every morning . [] psyllium husk, with sugar, (METAMUCIL, KONSYL) 3.4 gram packet Take 1 packet by mouth 3 (three) times a day as needed (Until you have regular bowel movements) . [DISCONTINUED] ondansetron (ZOFRAN ODT) 4 MG disintegrating tablet Dissolve 1 (one) tablet (4 mg total) on top of tongue every 6 (six) hours as needed for nausea. Allergies Allergen Reactions Ciprofloxacin-Hydrocortisone Swelling Diphenhydramine Swelling Bactrim [Sulfamethoxazole-Trimethoprim] Rash and Hives Benadryl [Diphenhydramine Hcl] Rash and Hives Ciprofloxacin Rash and Hives Hydrocortisone Rash and Hives Sulfa (Sulfonamide Antibiotics) Rash and Hives Review of Systems Constitutional: Positive for appetite change (decreased). Negative for chills, diaphoresis and fever. HENT: Negative for sore throat. Eyes: Negative for visual disturbance. Respiratory: Negative for cough and shortness of breath. Cardiovascular: Negative for chest pain, palpitations and leg swelling. Gastrointestinal: Positive for abdominal pain, nausea and vomiting. Negative for blood in stool, constipation, diarrhea and rectal pain. Genitourinary: Negative for dysuria, flank pain, frequency, genital sores, hematuria and vaginal bleeding. Itching with urination Musculoskeletal: Negative for back pain and neck pain. Skin: Negative for rash. Neurological: Positive for light-headedness. Negative for dizziness, syncope, weakness and headaches. Psychiatric/Behavioral: Negative for confusion. All other systems reviewed and are negative. Patient Vitals for the past 24 hrs: BP Temp Temp src Pulse Resp SpO2 Height Weight 04/30/18 1759 92/61 98 16 98 % 04/30/18 1722 108/70 (!) 100 16 98 % 04/30/18 1551 133/85 99.5 F (37.5 C) Oral (!) 112 16 98 % 5' 61.2 kg (135 lb) Physical Exam Constitutional: She is oriented to person, place, and time. She appears well-developed and well-nourished. She is active and cooperative. No distress. HENT: Head: Normocephalic and atraumatic. Head is without raccoon's eyes, without Kruger's sign, without right periorbital erythema and without left periorbital erythema. Right Ear: External ear normal. Left Ear: External ear normal. Mouth/Throat: Oropharynx is clear and moist and mucous membranes are normal. No trismus in the jaw. No dental abscesses or uvula swelling. Patient is speaking in clear complete sentences and handling secretions well. No oral or facial swelling. Normal voice phonation. No lesions to face or oral mucosa. Eyes: Conjunctivae are normal. Right eye exhibits no discharge. Left eye exhibits no discharge. No scleral icterus. Neck: Normal range of motion. Cardiovascular: Regular rhythm and normal heart sounds. Tachycardia present. No murmur heard. Pulses: Radial pulses are 2+ on the right side, and 2+ on the left side. Pulmonary/Chest: Effort normal and breath sounds normal. No respiratory distress. She has no wheezes. Abdominal: Soft. Normal appearance. She exhibits no distension and no ascites. There is generalized tenderness. There is no rigidity, no guarding, no CVA tenderness and no tenderness at McBurney's point. Actively vomiting bile during exam. Musculoskeletal: She exhibits no edema. Neurological: She is alert and oriented to person, place, and time. She has normal strength. She is not disoriented. She displays no tremor. No sensory deficit. GCS eye subscore is 4. GCS verbal subscore is 5. GCS motor subscore is 6. No obvious focal neurological deficits. Skin: Skin is warm and dry. No rash noted. She is not diaphoretic. No erythema. Psychiatric: She has a normal mood and affect. Her speech is normal and behavior is normal. Cognition and memory are normal. Nursing note and vitals reviewed. Laboratory & Radiographic Imaging (if done): Results for orders placed or performed during the hospital encounter of 04/30/18 Lavender Top Result Value Ref Range Extra Tube Hold for add-ons. Mint Green Top Result Value Ref Range Extra Tube Hold for add-ons. Gold Top Result Value Ref Range Extra Tube Hold for add-ons. Light Blue Top Result Value Ref Range Extra Tube Hold for add-ons. Rush Top Result Value Ref Range Extra Tube Hold for add-ons. BMP Result Value Ref Range Sodium 141 135 - 145 mmol/L Potassium 3.4 (L) 3.5 - 5.1 mmol/L Chloride 101 98 - 108 mmol/L Bicarbonate 24 21 - 32 mmol/L Anion Gap 19 10 - 20 mmol/L Glucose 91 65 - 99 mg/dL BUN 11 8 - 25 mg/dL Creatinine 0.80 0.40 - 1.10 mg/dL eGFR 101 >=60 mL/min/1.73 m2 BUN/Creatinine Ratio 13.8 10.0 - 20.0 Calcium 9.6 8.4 - 10.2 mg/dL Hepatic Function Panel (LFT) Result Value Ref Range Total Protein 8.5 (H) 6.0 - 8.0 g/dL Albumin 5.2 3.2 - 5.2 g/dL Total Bilirubin 0.2 0.0 - 1.3 mg/dL Bilirubin, Direct <0.1 0.0 - 0.4 mg/dL Alkaline Phosphatase 46 40 - 140 U/L AST 19 0 - 45 U/L ALT 21 0 - 40 U/L Lipase Result Value Ref Range Lipase 31 15 - 65 U/L Urinalysis Result Value Ref Range Color, Urine Yellow Colorless, Yellow Clarity, Urine Hazy (A) Clear Specific [place] 1.019 1.005 - 1.025 pH, Urine 8.0 (H) 5.0 - 7.0 Protein, Urine Negative Negative mg/dL Glucose, Urine Negative Negative mg/dL Ketones, Urine Negative Negative mg/dL Bilirubin, Urine Negative Negative Urobilinogen, Urine <2.0 <2.0 mg/dL Blood, Urine Small (A) Negative Nitrite, Urine Negative Negative Leukocyte Esterase, Urine Negative Negative RBCs, Urine 11 (H) 0 - 3 /hpf Bacteria, Urine None Seen None Seen /hpf Squamous Epithelial 5 (H) 0 - 4 /hpf Mucus, Urine Rare None Seen, Rare /lpf Urine Drug Screen Result Value Ref Range Amphetamine Screen, Urine None Detected None Detected Barbiturate Screen, Urine None Detected None Detected Benzodiazepine Screen, Urine None Detected None Detected Cannabinoid Screen, Urine None Detected None Detected Cocaine, Screen Urine None Detected None Detected Methadone Screen, Urine None Detected None Detected Opiate Screen, Urine None Detected None Detected Oxycodone Screen, Urine None Detected None Detected POC Urine Result Value Ref Range POC Preg Test, Ur Negative Negative Internal Control Pass Spec Grav, UA 1.005 - 1.025 CBC Auto Differential Result Value Ref Range WBC 8.23 4.50 - 11.00 K/mcL RBC 4.90 4.00 - 5.20 M/mcL Hemoglobin 13.9 12.0 - 16.0 g/dL Hematocrit 40.7 36.0 - 46.0 % MCV 83.1 80.0 - 100.0 fL MCH 28.4 26.0 - 34.0 pg MCHC 34.2 31.0 - 37.0 g/dL Platelets 264 150 - 400 K/mcL RDW - CV 13.1 11.6 - 14.8 % MPV 9.9 9.0 - 15.5 fL Neutrophils 66.1 % Lymphocytes 24.4 % Monocytes 7.2 % Eosinophils 1.7 % Basophils 0.4 % IG Percent 0.20 % Neutrophils Abs 5.44 1.70 - 7.00 K/mcL Lymphocytes Abs 2.01 0.90 - 4.00 K/mcL Monocytes Abs 0.59 0.30 - 0.90 K/mcL Eosinophils Abs 0.14 0.00 - 0.50 K/mcL Basophils Abs 0.03 0.00 - 0.30 K/mcL IG Absolute 0.02 0.00 - 0.30 K/mcL Nucleated RBC 0.0 % Nucleated RBC Abs 0.00 0.00 - 0.00 K/mcL No orders to display Procedures MDM Number of Diagnoses or Management Options Dizziness: Non-intractable vomiting with nausea, unspecified vomiting type: Diagnosis management comments: Ms. Johnson presented to the ED with a CC of abdominal pain, emesis, and dizziness. HPI as above. Patient also seen by Dr. Garcia today. Initially tachycardic heart rate 112 which improved to heart rate 98. Temperature 99.5. No severe headache. No rash. Low suspicion for meningitis. Negative urine test. Urinalysis shows no evidence of significant UTI, hematuria, or ketones. Drug screen negative. BMP shows slight hypokalemia 3.4, normal renal function. Hepatic function panel shows elevated protein 8.5. Lipase 31. CBC shows no leukocytosis or anemia. Patient felt sniffily improved after 2 L IV fluid bolus, 10 mg Reglan IV, 5mg Haldol IV, and 25 mg Antivert p.o. Do not feel she requires any emergent imaging of abdomen. She is able to tolerate eating saltine crackers as well as drinking [place] here. No further vomiting. Reported that her nausea and dizziness has improved. Suspect her symptoms may be secondary to vertigo. During her stay she told her RN that she has been diagnosed with vertigo in the past and this feels similar. Do not feel she requires any emergent imaging of head at this time. Pt to be discharged home in stable condition. Educated pt (or caregiver) on status and treatment plan. Pt (or caregiver) verbalized understanding. Answered all questions pt (or caregiver) asked. Will follow up with primary care physician. Instructed pt to return to the ED if new symptoms arise or status worsens. Patient Progress Patient progress: stable . . Clinical Impression: SNOMED CT(R) 1. Non-intractable vomiting with nausea, unspecified vomiting type NAUSEA AND VOMITING 2. Dizziness DIZZINESS ED Disposition ED Disposition Condition Comment Discharge Stable Luli Johnson discharged to home/self care in stable condition. Follow-up Information 1. Mercedez Cotto CNP. Specialties: Internal Medicine, Nurse Practitioner Why: For follow up [id number] [facility] [id number] 2. [facility]. Specialty: Emergency Medicine Why: If symptoms worsen [address] [facility] [id number] Contact information for after-discharge care Follow-up information has not been specified. New Prescriptions meclizine (ANTIVERT) 25 MG chewable tablet Chew and Swallow 1 (one) tablet (25 mg total) 3 (three) times a day as needed for dizziness . These Medications Have Changed Change Disp Refills Start End Stop ondansetron (ZOFRAN ODT) 4 MG disintegrating tablet (Discontinued) 14 tablet 0 09/16/2017 04/30/2018 Sig: Dissolve 1 (one) tablet (4 mg total) on top of tongue every 6 (six) hours as needed for nausea. Class: Print Route: Oral Reason for Discontinue: Reorder Start ondansetron (ZOFRAN ODT) 4 MG disintegrating tablet 12 tablet 0 04/30/2018 Sig: Dissolve 1 (one) tablet (4 mg total) on top of tongue every 6 (six) hours as needed for nausea . Class: Print Route: Oral Guerline Arauz PA-C 04/30/18 190 Pt arrives with complaints of vomiting and dizziness. States the vomiting started apr 21. And improved after a few days, but returned. States she vomited 5 times today. States her PCP prescribed Phenergan . Denies fever or bloody emesis. Does complain of abd pressure in this encounter ED PROVIDER NOTE [facility] NAME: Luli Johnson AGE: 28 y.o. : 1990 VISIT DATE: 12/07/2018 CSN: [id number] PCP: Mercedez Cotto CNP Chief Complaint Patient presents with Diarrhea This a 28-year-old female arrives to emerge department complaints of abdominal cramping and diarrhea. Patient states she has had history of IBS in the past with similar exacerbations. Patient states this particular episode started approximately 2 weeks ago and has been a continual since then. She estimates she has approximately 6 episodes of diarrhea per day. She has already discussed case with her PCP and has been referred on to GI for this. She has tried diet modification including removing milk products without any relief. Today she noticed what she describes a soft peglike structure in her stools that she brought in for evaluation. No particular aggravating alleviating factors she has not yet tried anything for symptoms. No vomiting. No fever. History provided by: Patient Diarrhea Associated symptoms: abdominal pain Associated symptoms: no arthralgias, no chills, no recent cough, no fever, no headaches, no myalgias and no vomiting Abdominal Pain Pain location: Generalized Chronicity: Recurrent Duration: 2 weeks Pain quality: cramping Onset quality: Sudden Pain severity: Moderate Timing: Intermittent Progression: Waxing and waning Relieved by: Nothing Worsened by: Nothing Ineffective treatments: Nothing tried Associated symptoms: diarrhea Associated symptoms: no chest pain, no chills, no cough, no dysuria, no fever, no hematochezia, no hematuria, no nausea, no shortness of breath, no vaginal bleeding, no vaginal discharge and no vomiting Past Medical History: Diagnosis Date Alopecia Alopecia areata Anxiety with depression Eczema IBS (irritable bowel syndrome) Irregular menstrual cycle Mental disorder DEPRESSION AND ANGER ISSUE,ANXIETY Neoplasm of pituitary gland Preeclampsia Past Surgical History: Procedure Laterality Date OTHER SURGICAL HISTORY wisdom teeth Family History Problem Relation Age of Onset Hypertension Mother Hypertension Maternal Grandfather Social History Socioeconomic History Marital status: Single Spouse name: Not on file Number of children: Not on file Years of education: Not on file Highest education level: Not on file Occupational History Not on file Social Needs Financial resource strain: Not on file Food insecurity: Worry: Not on file Inability: Not on file Transportation needs: Medical: Not on file Non-medical: Not on file Tobacco Use Smoking status: Never Smoker Smokeless tobacco: Never Used Substance and Sexual Activity Alcohol use: No Drug use: No Sexual activity: Yes Partners: Male Lifestyle Physical activity: Days per week: Not on file Minutes per session: Not on file Stress: Not on file Relationships Social connections: Talks on phone: Not on file Gets together: Not on file Attends faith service: Not on file Active member of club or organization: Not on file Attends meetings of clubs or organizations: Not on file Relationship status: Not on file Other Topics Concern Not on file Social History Narrative Not on file Previous Medications Medication Sig ARIPiprazole (ABILIFY) 5 MG tablet Take 5 mg by mouth nightly . ascorbate calcium (VITAMIN C ORAL) Take by mouth. benztropine (COGENTIN) 0.5 MG tablet Take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 for 14 days . ALLERGIES Allergies Allergen Reactions Cat Dander Shortness Of Breath Ciprofloxacin-Hydrocortisone Swelling Tree Nuts Shortness Of Breath All tree nuts Sulfasalazine Ciprofloxacin Rash and Hives Diphenhydramine Swelling, Hives and Rash Diphenhydramine Hcl Rash and Hives Hydrocortisone Rash and Hives Sulfa (Sulfonamide Antibiotics) Rash and Hives Sulfamethoxazole-Trimethoprim Rash and Hives PHYSICAL EXAMINATION Vital Signs BP (!) 136/92 (BP Location: Right arm, Patient Position: Lying) Pulse (!) 104 Temp 98.6 F (37 C) (Oral) Resp 12 Ht 5' Wt 55.8 kg (123 lb) LMP 10/07/2019 SpO2 100% BMI 24.02 kg/m Physical Exam Vitals signs and nursing note reviewed. Constitutional: General: She is not in acute distress. Appearance: She is well-developed. HENT: Head: Normocephalic and atraumatic. Eyes: Pupils: Pupils are equal, round, and reactive to light. Neck: Musculoskeletal: Normal range of motion. Cardiovascular: Rate and Rhythm: Normal rate and regular rhythm. Pulmonary: Effort: No respiratory distress. Breath sounds: No wheezing. Abdominal: General: There is no distension. Tenderness: There is no abdominal tenderness. Skin: Findings: No rash. Neurological: Mental Status: She is oriented to person, place, and time. Cranial Nerves: No cranial nerve deficit. Vital Signs During ED Visit (as charted by nursing) Patient Vitals for the past 24 hrs: BP Temp Temp src Pulse Resp SpO2 Height Weight 11/03/19 2106 12 11/03/192011 0211/03/19 2003 (!) 136/92 98.6 F (37 C) Oral (!) 104 12 100 % 5' 55.8 kg (123 lb) MEDICAL DECISION MAKING Patient is a 28 y.o.year-old female who is here today for evaluation of her renal colic after an event where she had a syncopal episode during urination due to the pain. She arrives here with stable vital signs, nontoxic-appearing with no acute distress. She was provided Toradol for her pain, IV fluid resuscitation was provided with 1 L as she has been intolerant of oral intake and has an episode of emesis here where she was provided Zofran for the nausea. Following these medications I discussed with her the imaging study which is unremarkable for any stent displacement, she has no sign of acute blood loss anemia which be the cause for the vagal episodes, though she does have a slight decline in her hemoglobin now at 11.2 from 12.5 10 days ago, although likely some contribution of dilution given the excessive IV fluids received during her recent hospitalization. Her renal function is stable from prior, electrolytes do not show any major disturbance, I discussed with her that it would be safe to be discharged. She was given a trial of oral intake prior to discharge. IMPRESSION: 1. Status post placement of ureteral stent 2. Renal colic 3. Hematuria, unspecified type 4. Vasovagal syncope PROCEDURES (if any, during ED visit) Procedures DIAGNOSTIC STUDIES LABS (if any, during ED visit) Labs Reviewed BASIC METABOLIC PANEL - Abnormal; Notable for the following components: Result Value BUN/Creatinine Ratio 26.0 (*) All other components within normal limits Narrative: The eGFR should be used for monitoring renal function only and not for medication dosing. CBC WITH AUTO DIFFERENTIAL - Abnormal; Notable for the following components: Hemoglobin 11.2 (*) Hematocrit 34.6 (*) All other components within normal limits HCG URINE, QUALITATIVE - Normal CBC AND DIFFERENTIAL Narrative: The following orders were created for panel order CBC and Differential. Procedure Abnormality Status --------- ------ CBC Auto Differential[[id number]] Abnormal Final result Please view results for these tests on the individual orders. URINALYSIS IMAGING (if any, during ED visit) XR Abdomen AP Final Result Right ureteral stent placement, otherwise no significant interval change. Workstation ID: [id number] MEDICATIONS ORDERED/GIVEN (if any, during ED visit) Medications ketorolac (TORADOL) injection 15 mg (15 mg Intravenous Given 11/03/192045) sodium chloride 0.9% (NS) bolus 1,000 mL (1,000 mL Intravenous New Bag 11/03/192045) ondansetron (ZOFRAN) injection 4 mg (4 mg Intravenous Given 11/03/192112) Dharmesh Avery MD 11/03/192205 Pt states has been feeling dizzy today. Pt arrives by medic was at [employer] getting [employer] and called medics due to 12/14 pain. Was here 10/30 and kidney stone extracted. D/C 11/01. States when she urinates it mclaughlin and blood is darker than when she got discharged. Temp99.5/ [id number]/ Meds at home hydrocodone,abilify keflex, tamosolin, cogentin. 22g left hand. 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 female with notable PMH of ADD, hypotension, irritable bowel syndrome who presents to the emergency department with concern for persistent pain in the context of recent discharge from the hospital. Patient was being monitored for abdominal pain and vomiting with ureteral stent in place. Patient called her urologist and was recommended to come back to the emergency department to be hospitalized as he could potentially have the stent removed tomorrow. Patient reports persistent vomiting, inability to tolerate oral intake and abdominal pain that is aching, constant and relatively mild at this time. Denies vaginal bleeding, vaginal discharge. History provider unsure of answers to other location/quality/alleviating/exacerbating/associated symptoms/setting/timing/severity questions aside from those above, and denies other concerns. ROS (in addition to HPI): Constitutional: denies fever. Endocrine: denies weight loss. Neurological: denies headache. Eyes: denies eye pain. Cardiovascular: denies chest pain, syncope. Respiratory: denies dyspnea. Gastrointestinal: denies melena. Genitourinary: denies polyuria. Integumentary: denies rashes, trauma/falls. Psychiatric: denies suicidal ideation. Past History: Past Medical History: Diagnosis Date ADD (attention deficit disorder) Alopecia Alopecia areata Anxiety with depression Eczema Hypotension IBS (irritable bowel syndrome) Irregular menstrual cycle Mental disorder DEPRESSION AND ANGER ISSUE,ANXIETY Neoplasm of pituitary gland Preeclampsia Vasovagal syncope Past Surgical History: Procedure Laterality Date CYSTO MAGGI LASER, RETRO, URETEROSCOPY, STENT (USUAL) Right 10/31/2019 Procedure: CYSTOSCOPY,RIGHT RETROGRADE PYELOGRAM, RIGHT URETEROSOCPY,; basket stone extraction RIGHT URETERAL STENT PLACEMENT; Surgeon: Yan Zuñiga MD; Location: [facility] Main OR; Service: Urology OTHER SURGICAL HISTORY wisdom teeth Social History Socioeconomic History Marital status: Single Spouse name: Not on file Number of children: Not on file Years of education: Not on file Highest education level: Not on file Occupational History Not on file Social Needs Financial resource strain: Not on file Food insecurity Worry: Not on file Inability: Not on file Transportation needs Medical: Not on file Non-medical: Not on file Tobacco Use Smoking status: Never Smoker Smokeless tobacco: Never Used Substance and Sexual Activity Alcohol use: No Drug use: No Sexual activity: Yes Partners: Male Lifestyle Physical activity Days per week: Not on file Minutes per session: Not on file Stress: Not on file Relationships Social connections Talks on phone: Not on file Gets together: Not on file Attends faith service: Not on file Active member of club or organization: Not on file Attends meetings of clubs or organizations: Not on file Relationship status: Not on file Other Topics Concern Not on file Social History Narrative Not on file Medications/Allergies: Current Facility-Administered Medications: acetaminophen (TYLENOL) tablet 650 mg, 650 mg, Oral, Q4H PRN, Emery Mena PA-C ARIPiprazole (ABILIFY) tablet 5 mg, 5 mg, Oral, Nightly, ARELIS Benoit, 5 mg at 11/05/19 0221 benztropine (COGENTIN) tablet 0.5 mg, 0.5 mg, Oral, QPM, ARELIS Benoit, 0.5 mg at 11/05/19 0221 bisacodyL (DULCOLAX) suppository 10 mg, 10 mg, Rectal, Daily PRN, Emery Mena PA-C ceFAZolin (ANCEF) IVPB 1 g (premix), 1,000 mg, Intravenous, Q12H, Emery Mena PA-C ondansetron (ZOFRAN-ODT) disintegrating tablet 4 mg, 4 mg, Oral, Q6H PRN, 4 mg at 11/05/19 0100 OR ondansetron (ZOFRAN) injection 4 mg, 4 mg, Intravenous, Q6H PRN, Emery Mena PA-C polyethylene glycol (MIRALAX) powder 17 g, 17 g, Oral, Daily PRN, Emery Mena PA-C senna (SENOKOT) tablet 8.6 mg, 1 tablet, Oral, Nightly, Emery Mena PA-C, 8.6 mg at 11/05/19 0221 tamsulosin (FLOMAX) 24 hr capsule 0.4 mg, 0.4 mg, Oral, Daily, Emery Mena PA-C Allergies Allergen Reactions Cat Dander Shortness Of Breath Ciprofloxacin-Hydrocortisone Swelling Tree Nuts Shortness Of Breath All tree nuts Sulfasalazine Ciprofloxacin Rash and Hives Diphenhydramine Swelling, Hives and Rash Diphenhydramine Hcl Rash and Hives Hydrocortisone Rash and Hives Sulfa (Sulfonamide Antibiotics) Rash and Hives Sulfamethoxazole-Trimethoprim Rash and Hives Physical Exam: BP 116/78 (BP Location: Right arm, Patient Position: Lying) Pulse 79 Temp 97.9 F (36.6 C) (Oral) Resp 14 Ht 5' Wt 56.7 kg (125 lb) LMP 10/07/2019 SpO2 99% BMI 24.41 kg/m VITALS: Reviewed, normal. GEN: Nontoxic, speaking full sentences. HEENT: NC/AT, MMM, no trismus. NECK: Supple, no JVD. CARDIO: Normal S1/S2, no murmurs. Symmetric, 2+ radial and PT pulses. RESP: Normal effort, CTAB with adequate airflow; no crepitus/wheezes/crackles/stridor. ABDOMEN: Soft; warm; mild central tenderness without guarding/rebound/rigidity/pain out of proportion/crepitus; normoactive bowel sounds; no hepatosplenomegaly/palpable masses/pulsatile masses/Bauer's sign/tenderness at McBurney's point. NEURO: GCS 15, CN II-XII intact, normal strength and sensation in all extremities, 2+ Achilles reflex bilaterally. No truncal ataxia, no clonus. MSK: Extremities nontender, no edema. Compartments are soft/compressible. SKIN: Normal color, no rash. PSYCH: Normal affect, no suicidal ideation. Diagnostics: Results for orders placed or performed during the hospital encounter of 11/04/19 Basic Metabolic Panel Result Value Ref Range Sodium 138 135 - 145 mmol/L Potassium 3.5 3.5 - 5.1 mmol/L Chloride 106 98 - 108 mmol/L Bicarbonate 22 21 - 32 mmol/L Anion Gap 14 10 - 20 mmol/L Glucose 87 65 - 99 mg/dL BUN 9 8 - 25 mg/dL Creatinine 0.58 0.40 - 1.10 mg/dL eGFR 126 >=60 mL/min/1.73 m2 BUN/Creatinine Ratio 15.5 10.0 - 20.0 Calcium 9.3 8.4 - 10.2 mg/dL hCG, Blood,QUALitative Result Value Ref Range Beta-hCG Qual Negative Negative Urinalysis Result Value Ref Range Color, Urine Red (A) Colorless, Yellow Clarity, Urine Cloudy (A) Clear Specific [place] 1.018 1.005 - 1.025 pH, Urine 8.0 (H) 5.0 - 7.0 Protein, Urine >=500 (A) Negative mg/dL Glucose, Urine Negative Negative mg/dL Ketones, Urine >=80 (A) Negative mg/dL Bilirubin, Urine Negative Negative Urobilinogen, Urine <2.0 <2.0 mg/dL Blood, Urine Large (A) Negative Nitrite, Urine Negative Negative Leukocyte Esterase, Urine Trace (A) Negative WBCs, Urine 8 (H) 0 - 5 /hpf RBCs, Urine >180 (H) 0 - 3 /hpf Bacteria, Urine Few (A) None Seen /hpf Squamous Epithelial 5 (H) 0 - 4 /hpf Gold Top Result Value Ref Range Extra Tube Hold for add-ons. Light Blue Top Result Value Ref Range Extra Tube Hold for add-ons. Rush Top Result Value Ref Range Extra Tube Hold for add-ons. Drugs of Abuse Screen, Urine Result Value Ref Range Amphetamine Screen, Urine None Detected None Detected Barbiturate Screen, Urine None Detected None Detected Benzodiazepine Screen, Urine None Detected None Detected Cannabinoid Screen, Urine None Detected None Detected Cocaine, Screen Urine None Detected None Detected Methadone Screen, Urine None Detected None Detected Opiate Screen, Urine None Detected None Detected Oxycodone Screen, Urine None Detected None Detected Buprenorphine, Ur None Detected None Detected Fentanyl, Ur None Detected None Detected CBC Auto Differential Result Value Ref Range WBC 6.64 4.50 - 11.00 K/mcL RBC 3.81 (L) 4.00 - 5.20 M/mcL Hemoglobin 10.6 (L) 12.0 - 16.0 g/dL Hematocrit 32.1 (L) 36.0 - 46.0 % MCV 84.3 80.0 - 100.0 fL MCH 27.8 26.0 - 34.0 pg MCHC 33.0 31.0 - 37.0 g/dL Platelets 217 150 - 400 K/mcL RDW - CV 12.8 11.6 - 14.8 % MPV 9.7 9.4 - 12.4 fL Neutrophils 69.7 % Lymphocytes 22.4 % Monocytes 6.6 % Eosinophils 0.8 % Basophils 0.3 % IG Percent 0.20 % Neutrophils Abs 4.63 1.70 - 7.00 K/mcL Lymphocytes Abs 1.49 0.90 - 4.00 K/mcL Monocytes Abs 0.44 0.30 - 0.90 K/mcL Eosinophils Abs 0.05 0.00 - 0.50 K/mcL Basophils Abs 0.02 0.00 - 0.30 K/mcL IG Absolute 0.01 0.00 - 0.30 K/mcL Nucleated RBC 0.0 % Nucleated RBC Abs 0.00 0.00 - 0.00 K/mcL No orders to display ED Course and MDM: In brief, Llui Johnson is a 29 y.o. female with pertinent PMH of ureteral stent who presented to the emergency department with concern for persistent pain and vomiting. Will observe for repeat evaluation. The patient was evaluated during the global COVID-19 pandemic, and that diagnosis was considered upon their initial presentation. Their evaluation, treatment, and testing was consistent with current guidelines for patients who present with complaints or symptoms that may be related or unrelated to COVID-19. Patient wore a surgical mask and this author wore appropriate PPE during evaluation. Decisions made amidst global COVID-19 pandemic. Author of this note does not currently have symptoms of a viral process. In addition to the above, an extensive differential diagnosis for the patient's symptoms was considered and emergent conditions that were considered but felt to be sufficiently clinically unlikely were not further pursued. I advised the patient to have PCP obtain records from today's visit as soon as possible to ensure potential incidental findings are addressed and to further coordinate care once out of the hospital. Nursing notes were reviewed. ED Course as of Nov 04 222 Sun Nov 04, 20198 Squamous Epithelial(!): 5 [IS] ED Course User Index [IS] Honorio Jalloh MD Medications Ordered/Given During ED Visit: Medications ARIPiprazole (ABILIFY) tablet 5 mg (5 mg Oral Given 11/05/19220) benztropine (COGENTIN) tablet 0.5 mg (0.5 mg Oral Given 11/05/19220) tamsulosin (FLOMAX) 24 hr capsule 0.4 mg (has no administration in time range) acetaminophen (TYLENOL) tablet 650 mg (has no administration in time range) bisacodyL (DULCOLAX) suppository 10 mg (has no administration in time range) ondansetron (ZOFRAN-ODT) disintegrating tablet 4 mg (4 mg Oral Given 11/05/1999) Or ondansetron (ZOFRAN) injection 4 mg ( Intravenous See Alternative 11/05/1999) polyethylene glycol (MIRALAX) powder 17 g (has no administration in time range) ceFAZolin (ANCEF) IVPB 1 g (premix) (has no administration in time range) senna (SENOKOT) tablet 8.6 mg (8.6 mg Oral Given 11/05/19220) lactated ringers bolus 1,000 mL (0 mL Intravenous Stopped 11/04/192151) metoclopramide (REGLAN) injection 10 mg (10 mg Intravenous Given 11/04/192050) HYDROmorphone (DILAUDID) injection 0.5 mg (0.5 mg Intravenous Given 11/04/192050) ceFAZolin (ANCEF) IVPB 1 g (premix) (0 mg Intravenous Stopped 11/04/192342) Final Impression 1. Abdominal pain, unspecified abdominal location 2. Nausea and vomiting, intractability of vomiting not specified, unspecified vomiting type 3. Abnormal urinalysis Honorio Jalloh MD 11/05/19222 Pt refusing straight cath. Agreeable to pure-wick Pt actively vomiting at this time in triage. This RN called out by front end ui developer to obtain patient per the mother's request. Per the mother the patient was just discharged today. Pt ambulated from car to wheelchair without assistance. Appears to have been vomiting en route, emesis brown, non- bloody. Pt sts Am I going to have to wait long with my condition because I really think they're just going to admit me again. Pt educated on protocols and procedures of the department. Pt reports being d/c from the OBS unit. Pt reports still having emesis. documented in this encounter This RN with assistance from Avelina BARRIGA, removed patient urethral reaves catheter and replaced with new reaves catheter at this time. Patient tolerated procedure well. Once new reaves catheter was placed, urine was seen draining into leg bag. 10ml of saline used to inflate reaves balloon. Reaves was then secured. [facility] EM[facility] NAME: Luli Johnson Age: 29 y.o. CSN: [id number] PCP: Mercedez Cotto CNP Chief Complaint: Urinary Retention HPI: She is a 29-year-old whose suffering with urinary retention. She just had a Reaves catheter placed 2 days ago. Said that she is does not think that is draining enough fluid but it is draining clear urine. She says she drank a liter of fluid and she only has a small amount out at this point. She denies any chest pain shortness of breath fever cough no abdominal pain. She said she did not think that it was placed improperly when it was placed MDM: She did well through her ED course. We are replacing her current Reaves catheter and she will be discharged home Nursing Notes and vitals reviewed. This patient was seen during the CoV19 international pandemic. They were seen and examined while wearing PPE Past Medical History: Diagnosis Date ADD (attention deficit disorder) Alopecia Alopecia areata Anxiety with depression Eczema Hypotension IBS (irritable bowel syndrome) Irregular menstrual cycle Mental disorder DEPRESSION AND ANGER ISSUE,ANXIETY Neoplasm of pituitary gland Preeclampsia Vasovagal syncope Past Surgical History: Procedure Laterality Date CYSTO MAGGI LASER, RETRO, URETEROSCOPY, STENT (USUAL) Right 10/31/2019 Procedure: CYSTOSCOPY,RIGHT RETROGRADE PYELOGRAM, RIGHT URETEROSOCPY,; basket stone extraction RIGHT URETERAL STENT PLACEMENT; Surgeon: Yan Zuñiga MD; Location: [facility] Main OR; Service: Urology CYSTO RETRO STONE MANIPULATION STENT INSERTION Right 11/05/2019 Procedure: CYSTOSCOPY WITH RIGHT STENT REMOVAL; Surgeon: Yan Zuñiga MD; Location: [facility] Main OR; Service: Urology OTHER SURGICAL HISTORY wisdom teeth Family History Problem Relation Age of Onset Hypertension Mother Hypertension Maternal Grandfather Social History Socioeconomic History Marital status: Single Spouse name: Not on file Number of children: Not on file Years of education: Not on file Highest education level: Not on file Occupational History Not on file Social Needs Financial resource strain: Not on file Food insecurity Worry: Not on file Inability: Not on file Transportation needs Medical: Not on file Non-medical: Not on file Tobacco Use Smoking status: Never Smoker Smokeless tobacco: Never Used Substance and Sexual Activity Alcohol use: No Drug use: No Sexual activity: Yes Partners: Male Lifestyle Physical activity Days per week: Not on file Minutes per session: Not on file Stress: Not on file Relationships Social connections Talks on phone: Not on file Gets together: Not on file Attends faith service: Not on file Active member of club or organization: Not on file Attends meetings of clubs or organizations: Not on file Relationship status: Not on file Other Topics Concern Not on file Social History Narrative Not on file Previous Medications Medication Sig ARIPiprazole (ABILIFY) 5 MG tablet Take 5 mg by mouth nightly . ascorbate calcium (VITAMIN C ORAL) Take 1 tablet by mouth daily . benztropine (COGENTIN) 0.5 MG tablet Take 0.5 mg by mouth every evening . bran/gum/fib/daniel/psyl/kelp/pec (FIBER 6 ORAL) Take 3 tablets by mouth daily Benifiber chew . cholecalciferol, vitamin D3, (VITAMIN D3 ORAL) Take 1 tablet by mouth daily . fluconazole (Diflucan) 150 MG tablet Take 1 (one) tablet (150 mg total) by mouth once as needed (may repeat in 3 days) . naproxen (NAPROSYN) 250 MG tablet Take 250 mg by mouth 2 (two) times a day as needed . ondansetron (ZOFRAN-ODT) 4 MG disintegrating tablet Dissolve 1 (one) tablet (4 mg total) on top of tongue every 6 (six) hours as needed . vitamin with Ca-Iron-FA 27-1 mg Tab Take 1 tablet by mouth every morning . Allergies Allergen Reactions Cat Dander Shortness Of Breath Ciprofloxacin-Hydrocortisone Swelling Tree Nuts Shortness Of Breath All tree nuts Sulfasalazine Ciprofloxacin Rash and Hives Diphenhydramine Swelling, Hives and Rash Diphenhydramine Hcl Rash and Hives Hydrocortisone Rash and Hives Sulfa (Sulfonamide Antibiotics) Rash and Hives Sulfamethoxazole-Trimethoprim Rash and Hives Review of Systems Constitutional: No unexpected weight change HENT: No drooling Eyes: No discharge Respiratory: No stridor Endocrine: No polyphagia Allergy/Immunologic: No hives Skin: No color changes Neurologic: No new face asymmetry Psychiaric: No self injury Hematologic/Lymphatic: No new easy bruising Other Pertinent positives and negatives in HPI Patient Vitals for the past 24 hrs: BP Temp Temp src Pulse Resp SpO2 Height Weight 11/11/19 1339 99 % 11/11/19 1320 110/79 98.2 F (36.8 C) Oral 76 16 99 % 5' 56.2 kg (124 lb) Physical Exam Constitutional: Alert and Oriented. Well Nourished, Well Developed HEENT: Revealed CARLA, EOMI. Oral mucosa is moist. No septal hematoma Cspine: No midline tenderness. Normal ROM Anterior Neck: Normal midline trachea with no lymphadenopathy, no JVD Cardiovascular: RRR, normal heart sounds and intact distal pulses. Pulmonary/Chest: Breath sounds clear to auscultation bilaterally. Normal excursions Abdominal: Soft, Nontender. Bowel sounds are normal. Nontender Reaves catheter in place Musculoskeletal: Normal range of motion. No obvious deformities. Neurological: Alert and oriented to person, place, and time. Skin: Skin is warm and dry. Laboratory & Radiographic Imaging (if done): No results found for this visit on 11/11/19. No orders to display Procedures Clinical Impression: 1. Problem with Reaves catheter, initial encounter (HCC) Antwan Yeung MD 11/11/19 1354 Patient present via wheelchair with surgical mask in place Patient reporting urinary retention with reaves catheter in place. Patient noticed that she has not had any urine output since 0700 Denies pelvic pain documented in this encounter Special isolation precautions are in place with signage outside this patient's room. This healthcare liaison performs hand hygiene and enters the patient room wearing: ? gloves ? an appropriately fitting (N-95, PAPR, Aura) mask ? face shield ? protective gown to provide care. See documentation for the care provided. Tylenol infusion was stopped at [address] scant. [facility] EMERGENCY MEDICINE NOTE PCP: Mercedez Cotto CNP Encounter Date: 11/17/19 Chief Complaint: Chief Complaint Patient presents with Flank Pain Emesis History of Presenting Illness: Luli Johnson is a 29 y.o. female with a past medical history that includes has a past medical history of ADD (attention deficit disorder), Alopecia, Alopecia areata, Anxiety with depression, Eczema, Hypotension, IBS (irritable bowel syndrome), Irregular menstrual cycle, Mental disorder, Neoplasm of pituitary gland, Preeclampsia, and Vasovagal syncope.. Patient reports flank pain, right, severe, sharp, started earlier today, now also felt on the left flank, associated with nausea and nonbloody nonbilious vomiting. Similar to prior episodes of infections in her kidneys. She is an excellent historian, and she reports that on October 30, she had an intervention to retrieve a stone and place a stent, and she still has a Reaves in place for difficulty urinating. She reports that she recently had her Reaves changed yesterday and that she has had urine since that change come out of her Reaves. She denies any changes in her bowel function. Denies any trauma or rash. ED Course/ Medical Decision Making 29-year-old with a complex past medical history presenting with flank pain, fever, tachycardia, nausea and vomiting. I am concerned of course for an infection or urinary obstruction and will treat her for a possible urinary tract infection and obtain imaging for etiology of her possible sepsis as well as for the possibility of hydronephrosis, ureteral obstruction, pyelonephritis. Reassuringly, her abdominal exam is only mildly tender diffusely, but a CT abdomen pelvis will help elicit if this could be related to an appendicitis or diverticulitis, which are less likely given her history. She does not have any upper abdominal pain, chest pain, shortness of breath making etiologies resulting from organs in those areas less likely also. She reports her urologist recommended that she comes here. Unfortunately, p.o. tolerance was unable to be achieved, and she also remained with significant pain. I am admitting her for pyelonephritis and p.o. intolerance. Disposition: ADMIT Admitting Service Notified at time the disposition was selected for admission. IMPRESSION: 1. Vomiting, intractability of vomiting not specified, presence of nausea not specified, unspecified vomiting type 2. Acute UTI 3. Acute pyelonephritis . ([employer] was used to transcribe this note) ED Course: ED Course as of Nov 17 24 Sat Nov 17, [id number] Temp(!): 100.6 F (38.1 C) [GS] 1854 Will call sepsis alert Heart Rate(!): 145 [GS] 1930 CXR interpreted by me shows no acute opacities or effusions [GS] 2115 EKG taken at 2021 and interpreted by me shows a sinus rhythm with a rate of 101, normal axis, no ST elevations or depressions, partial right bundle branch block, T wave inversion in V1, QTC 438, nonspecific EKG. [GS] ED Course User Index [GS] Manan Saldana MD Diagnostics Laboratory (if any, during ED visit): Labs Reviewed BASIC METABOLIC PANEL - Abnormal; Notable for the following components: Result Value Potassium 3.3 (*) Glucose 114 (*) BUN/Creatinine Ratio 21.1 (*) All other components within normal limits Narrative: The eGFR should be used for monitoring renal function only and not for medication dosing. URINALYSIS - Abnormal; Notable for the following components: Clarity, Urine Cloudy (*) Protein, Urine 100 (*) Ketones, Urine Trace (*) Blood, Urine Large (*) Leukocyte Esterase, Urine Large (*) WBCs, Urine >180 (*) RBCs, Urine 70 (*) Bacteria, Urine Many (*) Mucus, Urine Few (*) All other components within normal limits Narrative: Microscopic examination is performed on all urinalysis samples and only positive findings are reported. The test for blood on the chemical analytic portion of urinalysis may also be positive due to hemoglobinuria and myoglobinuria and if red blood cells are present they are quantified by microscopic examination. COVID-19, MOLECULAR - Normal HEPATIC FUNCTION PANEL - Normal HCG, SERUM, QUALITATIVE - Normal Narrative: Negative: The result is less than or equal to 5 mIU/mL of HCG. LIPASE - Normal LACTIC ACID, PLASMA - Normal BLOOD CULTURE AEROBIC/ANAEROBIC BLOOD CULTURE AEROBIC/ANAEROBIC URINE AEROBIC CULTURE CBC AND DIFFERENTIAL Narrative: The following orders were created for panel order CBC w/ Diff. Procedure Abnormality Status --------- ------ CBC Auto Differential[[id number]] Final result Please view results for these tests on the individual orders. BASIC METABOLIC PANEL CBC CBC WITH AUTO DIFFERENTIAL RADIOGRAPHIC IMAGING (if any, during ED visit): CT Abdomen Pelvis With IV Contrast Only Final Result 1. The bladder is decompressed with a Reaves catheter in position. There is bladder wall thickening which is most likely due to underdistention. Cystitis cannot be excluded. 2. There are no other acute abnormalities. 3. Right-sided nephrolithiasis is again noted. No evidence of urinary obstruction. [facility]/rSmarts Workstation ID: [id number] XR Chest 1 View Final Result No focal consolidation, pneumothorax, or pleural effusion. [facility]/ads Workstation ID: [id number] MEDICATIONS ORDERED/GIVEN (if any, during ED visit): Medications sodium chloride (PF) (NS) flush 5 mL (has no administration in time range) And sodium chloride 0.9% (NS) (75 mL/hr Intravenous New Bag 11/17/19 7888) ARIPiprazole (ABILIFY) tablet 5 mg (has no administration in time range) benztropine (COGENTIN) tablet 0.5 mg (has no administration in time range) acetaminophen (TYLENOL) tablet 650 mg (has no administration in time range) ondansetron (ZOFRAN) injection 4 mg (has no administration in time range) ceFAZolin (ANCEF) IVPB 1 g (premix) (1,000 mg Intravenous New Bag 11/17/192331) potassium chloride 20 mEq in 100 mL IVPB (has no administration in time range) sodium chloride 0.9% (NS) bolus 1,000 mL (0 mL Intravenous Stopped 11/17/192130) sodium chloride (PF) (NS) 0.9 % contrast line flush 10 mL (10 mL Intravenous Given 11/17/191951) And sodium chloride (PF) (NS) 0.9 % contrast line flush 80 mL (80 mL Intravenous Given 11/17/191951) And iopamidoL (ISOVUE-370) 76 % injection 75 mL (75 mL Intravenous Contrast Administered 11/17/191950) metoclopramide (REGLAN) injection 10 mg (10 mg Intravenous Given 11/17/191922) acetaminophen (TYLENOL) tablet 975 mg ( Oral See Alternative 11/17/192006) Or acetaminophen (OFIRMEV) injection 1,000 mg (0 mg Intravenous Stopped 11/17/192006) morphine syringe 4 mg (4 mg Intravenous Given 11/17/191922) cefTRIAXone (ROCEPHIN) IVPB 1 g (premix) (0 mg Intravenous Stopped 11/17/192099) MDM Review of Systems: Review of Systems Constitutional: Negative for fever. HENT: Negative for nosebleeds. Eyes: Negative for discharge. Respiratory: Negative for shortness of breath and stridor. Cardiovascular: Negative for chest pain, palpitations and leg swelling. Gastrointestinal: Negative for anal bleeding. Bilateral flank pain Genitourinary: Negative for hematuria. Musculoskeletal: Negative for neck pain and neck stiffness. Skin: Negative for wound. Neurological: Negative for speech difficulty. Psychiatric/Behavioral: Negative for hallucinations. Past Medical, Surgical, Family, and Social History: Past Medical History: Past Medical History: Diagnosis Date ADD (attention deficit disorder) Alopecia Alopecia areata Anxiety with depression Eczema Hypotension IBS (irritable bowel syndrome) Irregular menstrual cycle Mental disorder DEPRESSION AND ANGER ISSUE,ANXIETY Neoplasm of pituitary gland Preeclampsia Vasovagal syncope Past medical history reviewed. Past Surgical History: Past Surgical History: Procedure Laterality Date CYSTO MAGGI LASER, RETRO, URETEROSCOPY, STENT (USUAL) Right 10/31/2019 Procedure: CYSTOSCOPY,RIGHT RETROGRADE PYELOGRAM, RIGHT URETEROSOCPY,; basket stone extraction RIGHT URETERAL STENT PLACEMENT; Surgeon: Yan Zuñiga MD; Location: [facility] Main OR; Service: Urology CYSTO RETRO STONE MANIPULATION STENT INSERTION Right 11/05/2019 Procedure: CYSTOSCOPY WITH RIGHT STENT REMOVAL; Surgeon: Yan Zuñiga MD; Location: [facility] Main OR; Service: Urology OTHER SURGICAL HISTORY wisdom teeth Past surgical history reviewed. Family History: Family History Problem Relation Age of Onset Hypertension Mother Hypertension Maternal Grandfather Family history reviewed. Social History: Social History Socioeconomic History Marital status: Single Spouse name: Not on file Number of children: Not on file Years of education: Not on file Highest education level: Not on file Occupational History Not on file Social Needs Financial resource strain: Not on file Food insecurity Worry: Not on file Inability: Not on file Transportation needs Medical: Not on file Non-medical: Not on file Tobacco Use Smoking status: Never Smoker Smokeless tobacco: Never Used Substance and Sexual Activity Alcohol use: No Drug use: No Sexual activity: Yes Partners: Male Lifestyle Physical activity Days per week: Not on file Minutes per session: Not on file Stress: Not on file Relationships Social connections Talks on phone: Not on file Gets together: Not on file Attends faith service: Not on file Active member of club or organization: Not on file Attends meetings of clubs or organizations: Not on file Relationship status: Not on file Other Topics Concern Not on file Social History Narrative Not on file Social history reviewed. Allergies and Medications: Allergies: Allergies Allergen Reactions Cat Dander Shortness Of Breath Ciprofloxacin-Hydrocortisone Swelling Tree Nuts Shortness Of Breath All tree nuts Sulfasalazine Ciprofloxacin Rash and Hives Diphenhydramine Swelling, Hives and Rash Diphenhydramine Hcl Rash and Hives Hydrocortisone Rash and Hives Sulfa (Sulfonamide Antibiotics) Rash and Hives Sulfamethoxazole-Trimethoprim Rash and Hives Medications: Patient's Medications New Prescriptions No medications on file Previous Medications ARIPIPRAZOLE (ABILIFY) 5 MG TABLET Take 5 mg by mouth nightly . ASCORBATE CALCIUM (VITAMIN C ORAL) Take 1 tablet by mouth daily . BENZTROPINE (COGENTIN) 0.5 MG TABLET Take 0.5 mg by mouth every evening . BRAN/GUM/FIB/DANIEL/PSYL/KELP/PEC (FIBER 6 ORAL) Take 3 tablets by mouth daily Benifiber chew . CEPHALEXIN (KEFLEX) 500 MG CAPSULE Take 1 (one) capsule (500 mg total) by mouth 4 (four) times a day for 7 days . CHOLECALCIFEROL, VITAMIN D3, (VITAMIN D3 ORAL) Take 1 tablet by mouth daily . FLUCONAZOLE (DIFLUCAN) 150 MG TABLET Take 1 (one) tablet (150 mg total) by mouth once as needed (may repeat in 3 days) . NAPROXEN (NAPROSYN) 250 MG TABLET Take 250 mg by mouth 2 (two) times a day as needed . ONDANSETRON (ZOFRAN-ODT) 4 MG DISINTEGRATING TABLET Dissolve 1 (one) tablet (4 mg total) on top of tongue every 6 (six) hours as needed . VITAMIN WITH CA-IRON-FA 27-1 MG TAB Take 1 tablet by mouth every morning . Modified Medications No medications on file Discontinued Medications No medications on file Physical Exam: Vital Signs BP 119/77 (BP Location: Right arm, Patient Position: Sitting) Pulse (!) 145 Temp (!) 100.6 F (38.1 C) (Tympanic) Resp 18 Ht 5' Wt 55.5 kg (122 lb 6.4 oz) SpO2 98% BMI 23.90 kg/m Physical Exam Vitals signs and nursing note reviewed. Constitutional: General: She is not in acute distress. Appearance: She is not toxic-appearing. Comments: Patient sitting up in bed holding a vomit bag with nonbloody nonbilious emesis present. She did not vomit while I was in the room. HENT: Head: Normocephalic and atraumatic. Right Ear: External ear normal. Left Ear: External ear normal. Eyes: General: No scleral icterus. Conjunctiva/sclera: Conjunctivae normal. Neck: Musculoskeletal: Normal range of motion and neck supple. Cardiovascular: Rate and Rhythm: Regular rhythm. Tachycardia present. Heart sounds: Normal heart sounds. Pulmonary: Effort: Pulmonary effort is normal. Breath sounds: No wheezing. Abdominal: General: There is no distension. Palpations: Abdomen is soft. There is no mass. Tenderness: There is abdominal tenderness. There is no guarding or rebound. Comments: Bilateral flank tenderness to palpation Musculoskeletal: General: No swelling or tenderness. Skin: Capillary Refill: Capillary refill takes less than 2 seconds. Findings: No rash. Neurological: General: No focal deficit present. Mental Status: She is oriented to person, place, and time. Psychiatric: Mood and Affect: Mood normal. Behavior: Behavior normal. Vital Signs During ED Visit (as charted by nursing) Patient Vitals for the past 24 hrs: BP Temp Temp src Pulse Resp SpO2 Height Weight 11/17/19 1826 119/77 (!) 100.6 F (38.1 C) Tympanic (!) 145 18 98 % 5' 55.5 kg (122 lb 6.4 oz) PROCEDURES (if any, during ED visit): Procedures Manan Saldana MD 11/18/19 0025 SEPSIS ALERT CALLED AT 1902 Rn notified of abnormal vital signs This RN wearing mask upon pt arrival. Pt also wearing a mask. Pt reports bilateral flank pain, has reaves in place, and pt is concerned she has more kidney stones. Pt states she has been vomiting since noon. documented in this encounter This RN to the room to provide pt with DC/Care/Follow up instructions. Pt verbalizes understanding with no further concerns or questions at this time. Pt A&Ox4, resps easy unlabored, chest rise and fall equal, walks with steady gait, moves all extremities independently, no signs of distress noted. Patient ambulates to triage desk with surgical mask in place Patient reporting: -L flank pain -Emesis -Bladder and abdominal pain Patient recently had catheter removed--urinating every 12 hours on her own. Just finished a course of antibiotics for UTI. Patient has been feeling ill for the past three days. documented in this encounter Jenny Cruz is aware of patient needing ride home. ED PROVIDER NOTE [facility] NAME: Luli Johnson AGE: 29 y.o. : 1990 VISIT DATE: 11/28/2019 CSN: [id number] PCP: Mrecedez Cotto CNP Chief Complaint Patient presents with Emesis Back Pain bladder pain Patient is a 29-year-old female with a past medical history of ADD, anxiety, IBS, and preeclampsia who presents emergency department with a chief complaint of flank pain. Patient states that she was seen 1 month ago after a kidney stone. She had a stent placed at that time. Patient had a Reaves catheter and had this discontinued 2 weeks ago. She has been having urinary retention and has been continuing to self cath at home. Patient states she does continue to urinate once a day. Patient was most recently seen on 11/25/2019 for similar symptoms. Patient is endorsing episodes of nausea and vomiting. She states that she does not feel nauseous if she is not eating. She denies any hematuria. Patient states that she does have ongoing GI issues and denies any worsening abdominal pain. Patient is also endorsing vaginal discharge. She is concerned that she may have a yeast infection. She states that she is having vaginal itching. Patient denies any new sexual partners. She states that she was last tested for STDs in August 2019. Past Medical History: Diagnosis Date ADD (attention deficit disorder) Alopecia Alopecia areata Anxiety with depression Eczema Hypotension IBS (irritable bowel syndrome) Irregular menstrual cycle Mental disorder DEPRESSION AND ANGER ISSUE,ANXIETY Neoplasm of pituitary gland Preeclampsia Vasovagal syncope Past Surgical History: Procedure Laterality Date CYSTO MAGGI LASER, RETRO, URETEROSCOPY, STENT (USUAL) Right 10/31/2019 Procedure: CYSTOSCOPY,RIGHT RETROGRADE PYELOGRAM, RIGHT URETEROSOCPY,; basket stone extraction RIGHT URETERAL STENT PLACEMENT; Surgeon: Yan Zuñiga MD; Location: [facility] Main OR; Service: Urology CYSTO RETRO STONE MANIPULATION STENT INSERTION Right 11/05/2019 Procedure: CYSTOSCOPY WITH RIGHT STENT REMOVAL; Surgeon: Yan Zuñiga MD; Location: [facility] Main OR; Service: Urology OTHER SURGICAL HISTORY wisdom teeth Family History Problem Relation Age of Onset Hypertension Mother Hypertension Maternal Grandfather Social History Socioeconomic History Marital status: Single Spouse name: Not on file Number of children: Not on file Years of education: Not on file Highest education level: Not on file Occupational History Not on file Social Needs Financial resource strain: Not on file Food insecurity Worry: Not on file Inability: Not on file Transportation needs Medical: Not on file Non-medical: Not on file Tobacco Use Smoking status: Never Smoker Smokeless tobacco: Never Used Substance and Sexual Activity Alcohol use: No Drug use: No Sexual activity: Yes Partners: Male Lifestyle Physical activity Days per week: Not on file Minutes per session: Not on file Stress: Not on file Relationships Social connections Talks on phone: Not on file Gets together: Not on file Attends faith service: Not on file Active member of club or organization: Not on file Attends meetings of clubs or organizations: Not on file Relationship status: Not on file Other Topics Concern Not on file Social History Narrative Not on file Previous Medications Medication Sig ARIPiprazole (ABILIFY) 5 MG tablet Take 5 mg by mouth nightly . ascorbate calcium (VITAMIN C ORAL) Take 1 tablet by mouth daily . benztropine (COGENTIN) 0.5 MG tablet Take 0.5 mg by mouth every evening . bethanechol (URECHOLINE) 10 MG tablet Take 1 (one) tablet (10 mg total) by mouth 3 (three) times a day for 10 days . bran/gum/fib/daniel/psyl/kelp/pec (FIBER 6 ORAL) Take 3 tablets by mouth daily Benifiber chew . cholecalciferol, vitamin D3, (VITAMIN D3 ORAL) Take 1 tablet by mouth daily . naproxen (NAPROSYN) 250 MG tablet Take 250 mg by mouth 2 (two) times a day as needed . ondansetron (ZOFRAN-ODT) 4 MG disintegrating tablet Dissolve 1 (one) tablet (4 mg total) on top of tongue every 6 (six) hours as needed . vitamin with Ca-Iron-FA 27-1 mg Tab Take 1 tablet by mouth every morning . Allergies Allergen Reactions Cat Dander Shortness Of Breath Ciprofloxacin-Hydrocortisone Swelling Tree Nuts Shortness Of Breath All tree nuts Sulfasalazine Ciprofloxacin Rash and Hives Diphenhydramine Swelling, Hives and Rash Diphenhydramine Hcl Rash and Hives Hydrocortisone Rash and Hives Sulfa (Sulfonamide Antibiotics) Rash and Hives Sulfamethoxazole-Trimethoprim Rash and Hives Review of Systems Constitutional: Negative for fatigue and fever. HENT: Negative for congestion, rhinorrhea, sinus pressure, sinus pain, sneezing and sore throat. Eyes: Negative for visual disturbance. Respiratory: Negative for cough, shortness of breath and wheezing. Cardiovascular: Negative for chest pain and leg swelling. Gastrointestinal: Positive for abdominal pain, nausea and vomiting. Endocrine: Negative for polyuria. Genitourinary: Positive for flank pain. Negative for dysuria and urgency. Musculoskeletal: Negative for back pain and neck pain. Skin: Negative. Allergic/Immunologic: Medication allergies Neurological: Negative for light-headedness and headaches. Hematological: Negative. Psychiatric/Behavioral: Negative for behavioral problems and confusion. Patient Vitals for the past 24 hrs: BP Temp Pulse Resp SpO2 Height Weight 11/28/19 2337 111/73 82 14 100 % 11/28/19 2157 16 11/28/19 2136 16 11/28/19 2129 86 11/28/19 1833 (!) 145/96 98.6 F (37 C) (!) 111 18 100 % 5' 55.8 kg (123 lb) Physical Exam Vitals signs and nursing note reviewed. Constitutional: Appearance: Normal appearance. HENT: Head: Normocephalic and atraumatic. Nose: Nose normal. Mouth/Throat: Mouth: Mucous membranes are moist. Eyes: Extraocular Movements: Extraocular movements intact. Conjunctiva/sclera: Conjunctivae normal. Neck: Musculoskeletal: Normal range of motion and neck supple. Cardiovascular: Rate and Rhythm: Normal rate and regular rhythm. Pulses: Normal pulses. Heart sounds: Normal heart sounds. Pulmonary: Effort: Pulmonary effort is normal. Breath sounds: Normal breath sounds. Abdominal: Palpations: Abdomen is soft. Comments: Abdomen is soft without rigidity or guarding. Genitourinary: Comments: External genitalia without lesions or rashes. Scant discharge present in the vaginal canal. No cervical motion tenderness or adnexal tenderness. PA student chaperoned exam. Musculoskeletal: Comments: No CVA tenderness bilaterally. Skin: General: Skin is warm. Capillary Refill: Capillary refill takes less than 2 seconds. Neurological: General: No focal deficit present. Mental Status: She is alert and oriented to person, place, and time. Psychiatric: Mood and Affect: Mood normal. Behavior: Behavior normal. Laboratory & Radiographic Imaging (if done): Results for orders placed or performed during the hospital encounter of 11/28/19 Wet Preparation Specimen: Cervix; Swab Result Value Ref Range Trich, Wet Prep No Trichomonas Seen No Trichomonas Seen Yeast, Wet Prep No Yeast Seen No Yeast Seen Yeast w/hyphae, Wet prep No Yeast with Hyphae Seen No Yeast with Hyphae Seen WBC, Wet Prep Few WBC's Seen (A) No WBC's Seen Clue Cells, Wet Prep Possible Clue Cells Seen (A) No Clue Cells Seen Urinalysis Result Value Ref Range Color, Urine Yellow Colorless, Yellow Clarity, Urine Hazy (A) Clear Specific [place] 1.018 1.005 - 1.025 pH, Urine 7.0 5.0 - 7.0 Protein, Urine Negative Negative mg/dL Glucose, Urine Negative Negative mg/dL Ketones, Urine Negative Negative mg/dL Bilirubin, Urine Negative Negative Urobilinogen, Urine <2.0 <2.0 mg/dL Blood, Urine Negative Negative Nitrite, Urine Negative Negative Leukocyte Esterase, Urine Negative Negative WBCs, Urine 15 (H) 0 - 5 /hpf RBCs, Urine 2 0 - 3 /hpf Bacteria, Urine Few (A) None Seen /hpf Squamous Epithelial 7 (H) 0 - 4 /hpf Transitional Epithelial 1 0 - 1 /hpf Mucus, Urine Rare None Seen, Rare /lpf Urine Result Value Ref Range Beta-hCG, Ur, Qual Negative Negative Chem 7 Result Value Ref Range Sodium 144 135 - 145 mmol/L Potassium 4.3 3.5 - 5.1 mmol/L Chloride 108 98 - 108 mmol/L Bicarbonate 25 21 - 32 mmol/L Creatinine 0.70 0.40 - 1.10 mg/dL Glucose 82 65 - 99 mg/dL BUN 12 8 - 25 mg/dL eGFR 117 >=60 mL/min/1.73 m2 BUN/Creatinine Ratio 17.1 10.0 - 20.0 Anion Gap 15 10 - 20 mmol/L Lavender Top Result Value Ref Range Extra Tube Hold for add-ons. Mint Green Top Result Value Ref Range Extra Tube Hold for add-ons. Gold Top Result Value Ref Range Extra Tube Hold for add-ons. Light Blue Top Result Value Ref Range Extra Tube Hold for add-ons. Rush Top Result Value Ref Range Extra Tube Hold for add-ons. CBC Auto Differential Result Value Ref Range WBC 6.29 4.50 - 11.00 K/mcL RBC 4.07 4.00 - 5.20 M/mcL Hemoglobin 11.2 (L) 12.0 - 16.0 g/dL Hematocrit 34.8 (L) 36.0 - 46.0 % MCV 85.5 80.0 - 100.0 fL MCH 27.5 26.0 - 34.0 pg MCHC 32.2 31.0 - 37.0 g/dL Platelets 249 150 - 400 K/mcL RDW - CV 13.2 11.6 - 14.8 % MPV 9.4 9.4 - 12.4 fL Neutrophils 73.0 % Lymphocytes 18.4 % Monocytes 6.8 % Eosinophils 1.0 % Basophils 0.5 % IG Percent 0.30 % Neutrophils Abs 4.59 1.70 - 7.00 K/mcL Lymphocytes Abs 1.16 0.90 - 4.00 K/mcL Monocytes Abs 0.43 0.30 - 0.90 K/mcL Eosinophils Abs 0.06 0.00 - 0.50 K/mcL Basophils Abs 0.03 0.00 - 0.30 K/mcL IG Absolute 0.02 0.00 - 0.30 K/mcL Nucleated RBC 0.0 % Nucleated RBC Abs 0.00 0.00 - 0.00 K/mcL CT Kidney Stone Final Result 1. Nonobstructive 4.6 mm stone on the right kidney. 2. No hydronephrosis or other sign of obstructive uropathy. 3. No evidence of appendicitis. [employer]Talk[employer] Workstation ID: [id number] Procedures MDM Number of Diagnoses or Management Options Bacterial vaginosis: Flank pain: Nausea and vomiting, intractability of vomiting not specified, unspecified vomiting type: Diagnosis management comments: This is the medical decision making for a 29-year-old female with a past medical history of ADD, anxiety, IBS, and preeclampsia who presents emergency department with a chief complaint of flank pain. Patient states that she was seen 1 month ago after a kidney stone. She had a stent placed at that time. Patient had a Reaves catheter and had this discontinued 2 weeks ago. She has been having urinary retention and has been continuing to self cath at home. Patient states she does continue to urinate once a day. Patient was most recently seen on 11/25/2019 for similar symptoms. Patient is endorsing episodes of nausea and vomiting. She states that she does not feel nauseous if she is not eating. She denies any hematuria. Patient states that she does have ongoing GI issues and denies any worsening abdominal pain. Patient is also endorsing vaginal discharge. She is concerned that she may have a yeast infection. She states that she is having vaginal itching. Patient denies any new sexual partners. On examination patient's abdomen is soft without rigidity or guarding. External genitalia without lesions or rashes. Scant discharge present in the vaginal canal. No cervical motion tenderness or adnexal tenderness. No CVA tenderness bilaterally. CBC shows a WBC of 6.29, hemoglobin 11.2, and hematocrit of 34.8. Chem-7 is unremarkable. Beta-hCG is negative. Urinalysis shows 15 WBCs, few bacteria and 7 squamous epithelial cells. Urine culture was obtained. Wet prep does show possible clue cells and few WBCs. Patient does endorse vaginal itching and will be treated for bacterial vaginosis. CT abdomen shows a nonobstructing 4.6 stone on the right kidney. Patient initially failed p.o. challenge but then was given Reglan and Zofran and was able to ultimately passed p.o. challenge. She will be discharged home with Flagyl, Pyridium, and Reglan. Patient is nontoxic and well appearing. They were given strict return precautions. Patient was instructed to return to the emergency department with any new or worsening symptoms or any concern they may have. ED Course as of Nov 28 30 Wed Nov 28, 2019 2326 Beta-hCG, Ur, Qual: Negative [JR] Zahra Nov 29, 2019 003 Patient tolerates p.o. challenge. [TRACI] ED Course User Index [JR] Dylan Russo MD [TRACI] EARLENE Nix . Clinical Impression: 1. Nausea and vomiting, intractability of vomiting not specified, unspecified vomiting type 2. Flank pain 3. Bacterial vaginosis ED Disposition ED Disposition Condition Comment Discharge Stable Luli Johnson discharged to home/self care in stable condition. Follow-up Information 1. Mercedez Cotto CNP. Specialties: Internal Medicine, Nurse Practitioner [address] [facility] [id number] Contact information for after-discharge care Follow-up information has not been specified. New Prescriptions metroNIDAZOLE (FLAGYL) 500 MG tablet Take 1 (one) tablet (500 mg total) by mouth 2 (two) times a day with meals for 7 days . phenazopyridine (PYRIDIUM) 100 MG tablet Take 2 (two) tablets (200 mg total) by mouth 3 (three) times a day for 2 days . metoclopramide (REGLAN) 5 MG tablet Take 1 (one) tablet (5 mg total) by mouth 3 (three) times a day as needed . Chrissy Springer PA-C 11/29/19 0040 Pt reports vomiting after PO challenge. Vomit clear. Pt ambulates to restroom to provide urine sample Pt ambulates into triage with a surgical mask on. Pt states she has been feeling dizzy, and is having 10/10 bladder pain my entire back, flanks and sides and under my ribs Pt also states she is having n/v. States the symptoms started yesterday and have been getting steadily worse, bu states she has been vomiting for 6-7 days. documented in this encounter [facility] EM[facility]GENCY [facility] NAME: Luli Johnson AGE: 29 y.o. CSN: [id number] PCP: Mercedez Cotto CNP Chief Complaint Patient presents with Flank Pain History Chief Complaint Patient presents with Flank Pain HPI This is a 29-year-old female presenting to the emergency department with right flank pain. Patient reported right flank pain that has been coming and going for the past week, patient reported intractable vomiting, and she reported that she passed out in the ED waiting area bathroom after hyperventilating. Patient was discharged on 12/07/2019 for the same complaint. Patient believes that she has passed another kidney stone. Patient brought the sample to the department. Patient denies any coffee- ground emesis. Patient reported that she has not been eating for the past week, and vomited which she ate a couple of days ago. Patient denies any pain with urination, blood in urine, diarrhea constipation, fever or chills. Patient denies any abdominal pain. Patient reported taking ibuprofen with no improvement of symptoms. Past Medical History: Diagnosis Date ADD (attention deficit disorder) Alopecia Alopecia areata Anxiety with depression Eczema Hypotension IBS (irritable bowel syndrome) Irregular menstrual cycle Mental disorder DEPRESSION AND ANGER ISSUE,ANXIETY Neoplasm of pituitary gland Preeclampsia Vasovagal syncope Past Surgical History: Procedure Laterality Date CYSTO MAGGI LASER, RETRO, URETEROSCOPY, STENT (USUAL) Right 10/31/2019 Procedure: CYSTOSCOPY,RIGHT RETROGRADE PYELOGRAM, RIGHT URETEROSOCPY,; basket stone extraction RIGHT URETERAL STENT PLACEMENT; Surgeon: Yan Zuñiga MD; Location: [facility] Main OR; Service: Urology CYSTO RETRO STONE MANIPULATION STENT INSERTION Right 11/05/2019 Procedure: CYSTOSCOPY WITH RIGHT STENT REMOVAL; Surgeon: Yan Zuñiga MD; Location: [facility] Main OR; Service: Urology OTHER SURGICAL HISTORY wisdom teeth Family History Problem Relation Age of Onset Hypertension Mother Hypertension Maternal Grandfather reports that she has never smoked. She has never used smokeless tobacco. She reports that she does not drink alcohol or use drugs. Review of Systems Constitutional: No fevers Skin: No rash Eyes: No discharge ENMT: No hemoptysis Genitourinary: no obstructive symptoms Endocrine: no polyuria Neurologic: no new numbness Psychiatric: No hallucinations Hematologic/Lymphatic: No abnormal bruising Allergic/Immunologic: no urticaria Other pertinent positives and negatives in HPI Physical Exam Patient Vitals for the past 24 hrs: BP Temp Temp src Pulse Resp SpO2 Height Weight 12/15/19 0300 103/61 79 17 98 % 12/15/19 0222 113/73 89 16 97 % 12/14/194 117/80 98.7 F (37.1 C) Oral 95 16 98 % 5' 55 kg (121 lb 4.8 oz) Physical Exam Vitals signs and nursing note reviewed. Constitutional: Appearance: She is well-developed. HENT: Head: Normocephalic and atraumatic. Nose: Nose normal. Eyes: Conjunctiva/sclera: Conjunctivae normal. Neck: Musculoskeletal: Normal range of motion and neck supple. Cardiovascular: Rate and Rhythm: Normal rate and regular rhythm. Heart sounds: Normal heart sounds. Pulmonary: Effort: Pulmonary effort is normal. Breath sounds: Normal breath sounds. Abdominal: General: Bowel sounds are normal. Palpations: Abdomen is soft. Tenderness: There is no abdominal tenderness. Musculoskeletal: Normal range of motion. Skin: General: Skin is warm. Neurological: Mental Status: She is alert and oriented to person, place, and time. ED Course Results for orders placed or performed during the hospital encounter of 12/14/19 Lavender Top Result Value Ref Range Extra Tube Hold for add-ons. Mint Green Top Result Value Ref Range Extra Tube Hold for add-ons. Gold Top Result Value Ref Range Extra Tube Hold for add-ons. Light Blue Top Result Value Ref Range Extra Tube Hold for add-ons. Rush Top Result Value Ref Range Extra Tube Hold for add-ons. Chem 7 Result Value Ref Range Sodium 139 135 - 145 mmol/L Potassium 3.9 3.5 - 5.1 mmol/L Chloride 103 98 - 108 mmol/L Bicarbonate 25 21 - 32 mmol/L Creatinine 0.77 0.40 - 1.10 mg/dL Glucose 82 65 - 99 mg/dL BUN 16 8 - 25 mg/dL eGFR 105 >=60 mL/min/1.73 m2 BUN/Creatinine Ratio 20.8 (H) 10.0 - 20.0 Anion Gap 15 10 - 20 mmol/L Hepatic Function Panel (LFT) Result Value Ref Range Total Protein 7.4 6.0 - 8.0 g/dL Albumin 4.8 3.2 - 5.2 g/dL Total Bilirubin <0.2 0.0 - 1.3 mg/dL Bilirubin, Direct <0.1 0.0 - 0.4 mg/dL Alkaline Phosphatase 46 40 - 140 U/L AST 23 0 - 45 U/L ALT 17 0 - 40 U/L Lipase Result Value Ref Range Lipase 34 15 - 65 U/L Urinalysis Result Value Ref Range Color, Urine Yellow Colorless, Yellow Clarity, Urine Clear Clear Specific [place] 1.024 1.005 - 1.025 pH, Urine 6.0 5.0 - 7.0 Protein, Urine Negative Negative mg/dL Glucose, Urine Negative Negative mg/dL Ketones, Urine Negative Negative mg/dL Bilirubin, Urine Negative Negative Urobilinogen, Urine <2.0 <2.0 mg/dL Blood, Urine Moderate (A) Negative Nitrite, Urine Negative Negative Leukocyte Esterase, Urine Negative Negative WBCs, Urine 1 0 - 5 /hpf RBCs, Urine 6 (H) 0 - 3 /hpf Bacteria, Urine None Seen None Seen /hpf Squamous Epithelial 2 0 - 4 /hpf Mucus, Urine Rare None Seen, Rare /lpf Urine Result Value Ref Range Beta-hCG, Ur, Qual Negative Negative CBC Auto Differential Result Value Ref Range WBC 5.97 4.50 - 11.00 K/mcL RBC 4.17 4.00 - 5.20 M/mcL Hemoglobin 11.6 (L) 12.0 - 16.0 g/dL Hematocrit 35.6 (L) 36.0 - 46.0 % MCV 85.4 80.0 - 100.0 fL MCH 27.8 26.0 - 34.0 pg MCHC 32.6 31.0 - 37.0 g/dL Platelets 236 150 - 400 K/mcL RDW - CV 13.0 11.6 - 14.8 % MPV 10.2 9.4 - 12.4 fL Neutrophils 57.9 % Lymphocytes 32.5 % Monocytes 7.2 % Eosinophils 1.7 % Basophils 0.5 % IG Percent 0.20 % Neutrophils Abs 3.46 1.70 - 7.00 K/mcL Lymphocytes Abs 1.94 0.90 - 4.00 K/mcL Monocytes Abs 0.43 0.30 - 0.90 K/mcL Eosinophils Abs 0.10 0.00 - 0.50 K/mcL Basophils Abs 0.03 0.00 - 0.30 K/mcL IG Absolute 0.01 0.00 - 0.30 K/mcL Nucleated RBC 0.0 % Nucleated RBC Abs 0.00 0.00 - 0.00 K/mcL No orders to display Procedures MDM Medications sodium chloride 0.9% (NS) bolus 1,000 mL (0 mL Intravenous Stopped 12/15/19 0306) ondansetron (ZOFRAN) injection 4 mg (4 mg Intravenous Given 12/15/19 0138) ketorolac (TORADOL) injection 15 mg (15 mg Intravenous Given 12/15/19 0218) ondansetron (ZOFRAN) injection 4 mg (4 mg Intravenous Given 12/15/19 0222) This is a 29-year-old female presenting to the emergency department with right flank pain, nausea and vomiting, and history of kidney stones. Vital signs have been unremarkable, physical exam was unremarkable. Work-up included Chem-7, hepatic panel, lipase, urinalysis, urine test, and CBC which were all within normal limits except urinalysis showed moderate blood in the urine with RBC at 6 although no signs of infection. CBC had hemoglobin of 11.6, hematocrit of 35.6, which is around her baseline. After she was given antiemetics, patient has not vomited in the ED. Patient was informed of test results. No imaging was performed, patient instructed to follow-up with her urologist and her primary care physician. Patient reported that she has an appointment with GI and urology next week. Patient instructed to return to the emergency department if symptoms worsen or other concerns. Patient also reported that she has antiemetics (Zofran, Phenergan, Reglan) at home. Patient instructed to take them. Patient discharged. Impressions: 1. Right flank pain 2. Nausea and vomiting, intractability of vomiting not specified, unspecified vomiting type 3. Hematuria, unspecified type Follow-up Information 1. Mercedez Cotto CNP. Specialties: Internal Medicine, Nurse Practitioner [address] [facility] [id number] 2. Yan Zuñiga MD. Specialties: Urology, Urologic Surgery [address] [place] [id number] Contact information for after-discharge care Follow-up information has not been specified. Medication List ASK your doctor about these medications ARIPiprazole 5 MG tablet Commonly known as: ABILIFY benztropine 0.5 MG tablet Commonly known as: COGENTIN bethanechol 10 MG tablet Commonly known as: URECHOLINE Take 1 (one) tablet (10 mg total) by mouth 3 (three) times a day . dicyclomine 10 MG capsule Commonly known as: BENTYL FIBER 6 ORAL naproxen 250 MG tablet Commonly known as: NAPROSYN ondansetron 4 MG disintegrating tablet Commonly known as: ZOFRAN-ODT Dissolve 1 (one) tablet (4 mg total) on top of tongue every 6 (six) hours as needed . vitamin with Ca-Iron-FA 27-1 mg Tab VITAMIN C ORAL VITAMIN D3 ORAL Florin Nuñez PA-C 12/15/19 0637 Pt into bathroom and reports that she passed out. Pt found sitting on the floor. Pt was found sitting on bathroom floor while on phone. This RN, Penny Lazaro RN, Jenna VICTORIA, and Mercedez VICTORIA responded. Pt ambulates to triage c/o of right flank pain x2 days. Pt was discharged 12/06 for the same c/o and kidney stones. Pt does not think she has passed stones. Pt report the pain is causing pt to not be able to eat and drink. documented in this encounter This RN at bedside. Pt transport via [employer] set up. ED PROVIDER NOTE [facility] EM[facility] NAME: Luli Johnson AGE: 29 y.o. : 1990 VISIT DATE: 01/14/2020 CSN: [id number] PCP: Mercedez Cotto CNP Chief Complaint Patient presents with Abdominal Pain Flank Pain Emesis History provided by: Patient Abdominal Pain Pain location: L flank and LLQ Chronicity: New Pain quality: aching and cramping Onset quality: Sudden Pain severity: Moderate Timing: Constant Progression: Waxing and waning Context: not suspicious food intake Relieved by: Nothing Worsened by: Nothing Associated symptoms: nausea and vomiting Associated symptoms: no chest pain, no cough, no fever and no shortness of breath Flank Pain Associated symptoms: abdominal pain Associated symptoms: no chest pain, no fever, no headaches and no numbness Emesis Associated symptoms: abdominal pain Associated symptoms: no cough, no fever, no headaches and no polydipsia This is a 29-year-old female multiple medical issues chronic gastritis IBS kidney stones complaining of right flank right lower and upper abdominal pain. States that discomfort for 2 days. States she is vomiting states she does not have usual but severity of it is states she has gastritis and has recurrent vomiting issues. [place] fever chills rigors. Denies any hematuria or frequency. No fall or trauma. States she is not take any medicines or tried anything at home to help her symptoms because of the vomiting. Past Medical History: Diagnosis Date ADD (attention deficit disorder) Alopecia Alopecia areata Anxiety with depression Chronic gastritis Eczema Hypotension IBS (irritable bowel syndrome) Irregular menstrual cycle Kidney stone Mental disorder DEPRESSION AND ANGER ISSUE,ANXIETY Neoplasm of pituitary gland Preeclampsia Vasovagal syncope Past Surgical History: Procedure Laterality Date COLONOSCOPY CYSTO MAGGI LASER, RETRO, URETEROSCOPY, STENT (USUAL) Right 10/31/2019 Procedure: CYSTOSCOPY,RIGHT RETROGRADE PYELOGRAM, RIGHT URETEROSOCPY,; basket stone extraction RIGHT URETERAL STENT PLACEMENT; Surgeon: Yan Zuñiga MD; Location: [facility] Main OR; Service: Urology CYSTO RETRO STONE MANIPULATION STENT INSERTION Right 11/05/2019 Procedure: CYSTOSCOPY WITH RIGHT STENT REMOVAL; Surgeon: Yan Zuñiga MD; Location: [facility] Main OR; Service: Urology OTHER SURGICAL HISTORY wisdom teeth Family History Problem Relation Age of Onset Hypertension Mother Hypertension Maternal Grandfather Social History Socioeconomic History Marital status: Single Spouse name: Not on file Number of children: Not on file Years of education: Not on file Highest education level: Not on file Occupational History Not on file Social Needs Financial resource strain: Not on file Food insecurity Worry: Not on file Inability: Not on file Transportation needs Medical: Not on file Non-medical: Not on file Tobacco Use Smoking status: Never Smoker Smokeless tobacco: Never Used Substance and Sexual Activity Alcohol use: No Drug use: No Sexual activity: Yes Partners: Male Lifestyle Physical activity Days per week: Not on file Minutes per session: Not on file Stress: Not on file Relationships Social connections Talks on phone: Not on file Gets together: Not on file Attends faith service: Not on file Active member of club or organization: Not on file Attends meetings of clubs or organizations: Not on file Relationship status: Not on file Other Topics Concern Not on file Social History Narrative Not on file Previous Medications Medication Sig ARIPiprazole (ABILIFY) 5 MG tablet Take 5 mg by mouth nightly . ascorbate calcium (VITAMIN C ORAL) Take 1 tablet by mouth daily . benztropine (COGENTIN) 0.5 MG tablet Take 0.5 mg by mouth every evening . cholecalciferol, vitamin D3, (VITAMIN D3 ORAL) Take 1 tablet by mouth daily . famotidine (PEPCID) 20 MG tablet Take 20 mg by mouth daily as needed . vitamin with Ca-Iron-FA 27-1 mg Tab Take 1 tablet by mouth every morning . [DISCONTINUED] ondansetron (ZOFRAN-ODT) 4 MG disintegrating tablet Dissolve 1 (one) tablet (4 mg total) on top of tongue every 6 (six) hours as needed . Allergies Allergen Reactions Cat Dander Shortness Of Breath Ciprofloxacin-Hydrocortisone Swelling Tree Nuts Shortness Of Breath All tree nuts Sulfasalazine Ciprofloxacin Rash and Hives Diphenhydramine Swelling, Hives and Rash Diphenhydramine Hcl Rash and Hives Hydrocortisone Rash and Hives Sulfa (Sulfonamide Antibiotics) Rash and Hives Sulfamethoxazole-Trimethoprim Rash and Hives Review of Systems Constitutional: Negative for fever. HENT: Negative. Eyes: Negative for photophobia and visual disturbance. Respiratory: Negative for cough and shortness of breath. Cardiovascular: Negative for chest pain. Gastrointestinal: Positive for abdominal pain, nausea and vomiting. Endocrine: Negative for polydipsia and polyphagia. Genitourinary: Positive for flank pain. Negative for urgency. Musculoskeletal: Negative for neck pain and neck stiffness. Skin: Negative for rash and wound. Neurological: Negative for syncope, numbness and headaches. Patient Vitals for the past 24 hrs: BP Temp Temp src Pulse Resp SpO2 Height Weight 01/15/20 0031 no documentation no documentation no documentation no documentation 18 no documentation no documentation no documentation 01/15/20 0000 no documentation no documentation no documentation no documentation 16 no documentation no documentation no documentation 01/14/20 2315 121/88 no documentation no documentation 98 18 98 % no documentation no documentation 01/14/20 2230 124/80 no documentation no documentation no documentation no documentation 100 % no documentation no documentation 01/14/202019 130/86 99 F (37.2 C) Oral (Abnormal) 104 16 99 % 5' 55.3 kg (122 lb) Physical Exam Constitutional: General: She is not in acute distress. HENT: Head: Atraumatic. Mouth/Throat: Pharynx: Oropharynx is clear. Eyes: General: No scleral icterus. Extraocular Movements: Extraocular movements intact. Pupils: Pupils are equal, round, and reactive to light. Cardiovascular: Rate and Rhythm: Normal rate and regular rhythm. Heart sounds: Normal heart sounds. Pulmonary: Effort: Pulmonary effort is normal. Abdominal: General: Abdomen is flat. Bowel sounds are normal. Palpations: Abdomen is soft. Tenderness: There is abdominal tenderness in the right upper quadrant and right lower quadrant. There is no guarding or rebound. Skin: General: Skin is warm. Capillary Refill: Capillary refill takes less than 2 seconds. Findings: No erythema or rash. Neurological: General: No focal deficit present. Mental Status: She is alert and oriented to person, place, and time. Laboratory & Radiographic Imaging (if done): Results for orders placed or performed during the hospital encounter of 01/14/20 Chem 7 Result Value Ref Range Sodium 140 135 - 145 mmol/L Potassium 4.1 3.5 - 5.1 mmol/L Chloride 102 98 - 108 mmol/L Bicarbonate 27 21 - 32 mmol/L Creatinine 0.78 0.40 - 1.10 mg/dL Glucose 90 65 - 99 mg/dL BUN 14 8 - 25 mg/dL eGFR 103 >=60 mL/min/1.73 m2 BUN/Creatinine Ratio 17.9 10.0 - 20.0 Anion Gap 15 10 - 20 mmol/L Urinalysis Result Value Ref Range Color, Urine Yellow Colorless, Yellow Clarity, Urine Clear Clear Specific [place] 1.019 1.005 - 1.025 pH, Urine 8.0 (H) 5.0 - 7.0 Protein, Urine Negative Negative mg/dL Glucose, Urine Negative Negative mg/dL Ketones, Urine Negative Negative mg/dL Bilirubin, Urine Negative Negative Urobilinogen, Urine <2.0 <2.0 mg/dL Blood, Urine Negative Negative Nitrite, Urine Negative Negative Leukocyte Esterase, Urine Negative Negative WBCs, Urine 2 0 - 5 /hpf RBCs, Urine 3 0 - 3 /hpf Bacteria, Urine Rare (A) None Seen /hpf Squamous Epithelial 5 (H) 0 - 4 /hpf Mucus, Urine Rare None Seen, Rare /lpf Urine Result Value Ref Range Beta-hCG, Ur, Qual Negative Negative Gold Top Result Value Ref Range Extra Tube Hold for add-ons. Light Blue Top Result Value Ref Range Extra Tube Hold for add-ons. Rush Top Result Value Ref Range Extra Tube Hold for add-ons. Lipase Result Value Ref Range Lipase 41 15 - 65 U/L Hepatic Function Panel (LFT) Result Value Ref Range Total Protein 8.1 (H) 6.0 - 8.0 g/dL Albumin 4.9 3.2 - 5.2 g/dL Total Bilirubin <0.2 0.0 - 1.3 mg/dL Bilirubin, Direct <0.1 0.0 - 0.4 mg/dL Alkaline Phosphatase 52 40 - 140 U/L AST 22 0 - 45 U/L ALT 17 0 - 40 U/L CBC Auto Differential Result Value Ref Range WBC 5.70 4.50 - 11.00 K/mcL RBC 4.78 4.00 - 5.20 M/mcL Hemoglobin 12.9 12.0 - 16.0 g/dL Hematocrit 40.1 36.0 - 46.0 % MCV 83.9 80.0 - 100.0 fL MCH 27.0 26.0 - 34.0 pg MCHC 32.2 31.0 - 37.0 g/dL Platelets 263 150 - 400 K/mcL RDW - CV 12.7 11.6 - 14.8 % MPV 9.4 9.4 - 12.4 fL Neutrophils 56.5 % Lymphocytes 32.1 % Monocytes 8.4 % Eosinophils 2.1 % Basophils 0.7 % IG Percent 0.20 % Neutrophils Abs 3.22 1.70 - 7.00 K/mcL Lymphocytes Abs 1.83 0.90 - 4.00 K/mcL Monocytes Abs 0.48 0.30 - 0.90 K/mcL Eosinophils Abs 0.12 0.00 - 0.50 K/mcL Basophils Abs 0.04 0.00 - 0.30 K/mcL IG Absolute 0.01 0.00 - 0.30 K/mcL Nucleated RBC 0.0 % Nucleated RBC Abs 0.00 0.00 - 0.00 K/mcL CT Kidney Stone Final Result No evidence for acute abnormality on this noncontrast examination. There is no evidence for hydronephrosis or nephroureterolithiasis bilaterally. Normal appearing appendix is seen. Large volume of stool seen in the ascending colon. Workstation ID: [id number] Procedures MDM With right flank right side abdominal pain nausea vomiting acute on chronic. CT imaging obtained no kidney stone normal appendix large amount of stool in the ascending colon. She does have IBS-C will write prescription for GoLYTELY additionally Zofran for pain. Encouraged her to follow-up with PCP as needed. Her labs no substantial abnormity's will discharge home . Clinical Impression: 1. Right flank pain 2. Abdominal pain, unspecified abdominal location 3. Constipation, unspecified constipation type ED Disposition None Follow-up Information 1. Mercedez Cotto CNP. Specialties: Internal Medicine, Nurse Practitioner Why: As needed [id number] [facility] [address] Contact information for after-discharge care Follow-up information has not been specified. New Prescriptions ondansetron (Zofran ODT) 4 MG disintegrating tablet Dissolve 1 (one) tablet (4 mg total) on top of tongue every 6 (six) hours as needed for nausea . polyethylene glycol (GoLYTELY) 236-22.74-6.74 -5.86 gram solution Take 2,000 mL by mouth See Admin Instructions (240 ml every 30 minutes until finished or results). for 1 day . Augusto Layne PA-C 01/15/20 0115 C/o right flank pain 10/10 with pressure & sharpness, abd bloating, and vomiting documented in this encounter [facility] PCP - Mercedez Cotto CNP Chief Complaint Patient presents with Fatigue Back Pain HPI MEDICAL DECISION MAKING There is a 20-year-old female presents emerged from right-sided low back pain. She also states that she was discharged from [facility] yesterday where she was found to have a low platelet count. So that she is concerned with a low platelet count would like to have her reevaluated. No bowel bladder incontinence saddle anesthesias peripheral paresthesias weakness chest pain shortness of breath or other complaints. Symptoms are moderate. Nothing makes it better or worse. Patient presents for reeval of low platelet count and some right-sided back pain. No red flags for back pain. X-ray of the abdomen was completed secondary to some recent constipation to ensure there is no signs of obstruction, and is negative. She has been having bowel function. Urine unremarkable. CBC is normal her platelet count here is 196. Chemistries are normal. She feels better. We will give her Lidoderm for her back pain and should be discharged. The patient given my usual diagnosis return and precaution information on when to return. I stressed that we are happy to re-evaluate at any time if they feel their condition has changed or worsened. I have also discussed the warnings associated with the medications I provided today. I counseled patient regarding warnings/adverse affects associated with all medications I have provided/prescribed today. If opioids were provided/prescribed, I have discussed the risks and benefits, including the risks of addiction and overdose associated with a controlled substance containing an opioid, with patient. CLINICAL IMPRESSION 1. Right low back pain, unspecified chronicity, unspecified whether sciatica present Follow-up Information 1. Mercedez Cotto, LAWANDA. Specialties: Internal Medicine, Nurse Practitioner [address] [address] Contact information for after-discharge care Follow-up information has not been specified. New Prescriptions lidocaine (LIDODERM) 5 % patch Place 1 (one) patch on the skin daily Remove & Discard patch within 12 hours or as directed by MD for 5 days . . . Labs Reviewed CHEM 7 - Abnormal; Notable for the following components: Result Value Glucose 101 (*) BUN/Creatinine Ratio 23.0 (*) All other components within normal limits Narrative: The eGFR should be used for monitoring renal function only and not for medication dosing. URINALYSIS - Abnormal; Notable for the following components: Clarity, Urine Hazy (*) RBCs, Urine 6 (*) Amorphous Crystals Few (*) All other components within normal limits Narrative: Microscopic examination is performed on all urinalysis samples and only positive findings are reported. The test for blood on the chemical analytic portion of urinalysis may also be positive due to hemoglobinuria and myoglobinuria and if red blood cells are present they are quantified by microscopic examination. CBC AND DIFFERENTIAL Narrative: The following orders were created for panel order CBC w/ Diff. Procedure Abnormality Status --------- ------ CBC Auto Differential[[id number]] Final result Please view results for these tests on the individual orders. CBC WITH AUTO DIFFERENTIAL Radiographic Imaging (if any) During ED Visit XR Abdomen AP Final Result No acute findings. Stool burden within normal limits. Workstation ID: [id number] Medications Ordered/Given During ED Visit Medications lidocaine patch 1 patch (has no administration in time range) Review of Systems Constitutional: Negative for fever. HENT: Negative for congestion. Eyes: Negative for visual disturbance. Respiratory: Negative for chest tightness and shortness of breath. Cardiovascular: Negative for chest pain and palpitations. Gastrointestinal: Negative for abdominal pain. Genitourinary: Negative for dysuria. Musculoskeletal: Positive for back pain. Skin: Negative for rash. Neurological: Negative for headaches. All other systems reviewed and are negative. Physical Exam Vital Signs During ED Visit (as charted by nursing) Patient Vitals for the past 24 hrs: BP Temp Temp src Pulse Resp SpO2 Height Weight 01/23/20 0024 113/76 81 16 99 % 01/22/20 2047 119/73 98.6 F (37 C) Oral (!) 108 16 99 % 5' 2 55.6 kg (122 lb 8 oz) Physical Exam Vitals signs and nursing note reviewed. Constitutional: Appearance: Normal appearance. HENT: Head: Normocephalic and atraumatic. Eyes: General: No scleral icterus. Extraocular Movements: Extraocular movements intact. Neck: Musculoskeletal: Neck supple. Cardiovascular: Rate and Rhythm: Normal rate. Pulmonary: Effort: Pulmonary effort is normal. No respiratory distress. Musculoskeletal: Lumbar back: She exhibits pain. Back: Skin: General: Skin is warm and dry. Neurological: Mental Status: She is alert. PROCEDURES (if any, during ED visit): Procedures Past Medical History Past Medical History: Diagnosis Date ADD (attention deficit disorder) Alopecia Alopecia areata Anxiety with depression Chronic gastritis Eczema Hypotension IBS (irritable bowel syndrome) Irregular menstrual cycle Kidney stone Mental disorder DEPRESSION AND ANGER ISSUE,ANXIETY Neoplasm of pituitary gland Preeclampsia Vasovagal syncope Past Surgical History Past Surgical History: Procedure Laterality Date COLONOSCOPY CYSTO MAGGI LASER, RETRO, URETEROSCOPY, STENT (USUAL) Right 10/31/2019 Procedure: CYSTOSCOPY,RIGHT RETROGRADE PYELOGRAM, RIGHT URETEROSOCPY,; basket stone extraction RIGHT URETERAL STENT PLACEMENT; Surgeon: Yan Zuñiga MD; Location: [facility] Main OR; Service: Urology CYSTO RETRO STONE MANIPULATION STENT INSERTION Right 11/05/2019 Procedure: CYSTOSCOPY WITH RIGHT STENT REMOVAL; Surgeon: Yan Zuñiga MD; Location: [facility] Main OR; Service: Urology KIDNEY STONE SURGERY 10/31/2019 OTHER SURGICAL HISTORY wisdom teeth Family History Family History Problem Relation Age of Onset Hypertension Mother Hypertension Maternal Grandfather Social History Social History Socioeconomic History Marital status: Single Spouse name: Not on file Number of children: Not on file Years of education: Not on file Highest education level: Not on file Occupational History Not on file Social Needs Financial resource strain: Not on file Food insecurity Worry: Not on file Inability: Not on file Transportation needs Medical: Not on file Non-medical: Not on file Tobacco Use Smoking status: Never Smoker Smokeless tobacco: Never Used Substance and Sexual Activity Alcohol use: No Drug use: No Sexual activity: Yes Partners: Male Lifestyle Physical activity Days per week: Not on file Minutes per session: Not on file Stress: Not on file Relationships Social connections Talks on phone: Not on file Gets together: Not on file Attends faith service: Not on file Active member of club or organization: Not on file Attends meetings of clubs or organizations: Not on file Relationship status: Not on file Other Topics Concern Not on file Social History Narrative Not on file Allergies Allergies Allergen Reactions Cat Dander Shortness Of Breath Ciprofloxacin-Hydrocortisone Swelling Tree Nuts Shortness Of Breath All tree nuts Sulfasalazine Ciprofloxacin Rash and Hives Diphenhydramine Swelling, Hives and Rash Diphenhydramine Hcl Rash and Hives Hydrocortisone Rash and Hives Sulfa (Sulfonamide Antibiotics) Rash and Hives Sulfamethoxazole-Trimethoprim Rash and Hives Medications Previous Medications Medication Sig ARIPiprazole (ABILIFY) 5 MG tablet Take 5 mg by mouth nightly . ascorbate calcium (VITAMIN C ORAL) Take 1 tablet by mouth daily . benztropine (COGENTIN) 0.5 MG tablet Take 0.5 mg by mouth every evening . bisacodyL (Dulcolax, bisacodyl,) 5 mg EC tablet Take 10 mg by mouth every other day . cholecalciferol, vitamin D3, (VITAMIN D3 ORAL) Take 1 tablet by mouth daily . famotidine (PEPCID) 20 MG tablet Take 20 mg by mouth daily as needed . fluconazole (Diflucan) 150 MG tablet Take 1 (one) tablet (150 mg total) by mouth once as needed (may repeat in 3 days) . ykfrqmxj-zrbt-DA-calcium-mins 9 mg iron-400 mcg Tab Take 1 tablet by mouth daily . nitrofurantoin, macrocrystal-monohydrate, (MACROBID) 100 MG capsule Take 100 mg by mouth 2 (two) times a day . ondansetron (Zofran ODT) 4 MG disintegrating tablet Dissolve 1 (one) tablet (4 mg total) on top of tongue every 6 (six) hours as needed for nausea . (Patient not taking: Reported on 01/16/2020 .) vitamin with Ca-Iron-FA 27-1 mg Tab Take 1 tablet by mouth every morning . IMPRESSION: 1. Right low back pain, unspecified chronicity, unspecified whether sciatica present Please note this patient was independently seen and examined by Dr. Spencer who determined final impression and plan of care. *Please note that portions of this note were created using [employer] voice recognition software.* Thanh Morris CNP 01/23/20 0126 Pt arrives to triage desk via wheelchair and states, I was just discharged from the hospital today, and I've been so tired, having back pain, been passing out, and my platelets are low. documented in this encounter Associated Order(s): Anoscopy [facility] PCP - Mercedez Cotto CNP Chief Complaint Patient presents with Rectal Bleeding HPI MEDICAL DECISION MAKING Patient is a 29-year-old female with pelvic she is having yellow pus and blood from her rectum. Is been going for about 24 hours. Denies any sort of rectal penetration or concern for rectal STI. She tells me she has had a normal bowel movement since 21 January. She tells me she was seen at the [facility] emergency department and was given an enema. She states since that time she really has not had a bowel movement. She has that there is this pus and bloody drainage has been constant. History of IBS. Some generalized abdominal pain without focal pain. No nausea vomiting. No chest shortness of breath or other complaints. Symptoms are moderate without aggravating or alleviating factors. Patient with rectal bleeding, and reported constipation. X-rays unremarkable. Labs are stable. Hemoglobin stable, and her guaiac exam is negative. There is no visualized fissures or other anomalies on anoscope. She will be given MiraLax and discharged. The patient given my usual diagnosis return and precaution information on when to return. I stressed that we are happy to re-evaluate at any time if they feel their condition has changed or worsened. I have also discussed the warnings associated with the medications I provided today. I counseled patient regarding warnings/adverse affects associated with all medications I have provided/prescribed today. If opioids were provided/prescribed, I have discussed the risks and benefits, including the risks of addiction and overdose associated with a controlled substance containing an opioid, with patient. CLINICAL IMPRESSION 1. Rectal pain 2. Constipation, unspecified constipation type Follow-up Information 1. Mercedez Cotto CNP. Specialties: Internal Medicine, Nurse Practitioner [address] [place] [id number] Contact information for after-discharge care Follow-up information has not been specified. New Prescriptions polyethylene glycol (MIRALAX) 17 gram powder Take 17 (seventeen) g by mouth daily for 7 days . . . Labs Reviewed CHEM 7 - Abnormal; Notable for the following components: Result Value Glucose 113 (*) All other components within normal limits Narrative: The eGFR should be used for monitoring renal function only and not for medication dosing. URINALYSIS - Abnormal; Notable for the following components: Blood, Urine Moderate (*) RBCs, Urine 4 (*) All other components within normal limits Narrative: Microscopic examination is performed on all urinalysis samples and only positive findings are reported. The test for blood on the chemical analytic portion of urinalysis may also be positive due to hemoglobinuria and myoglobinuria and if red blood cells are present they are quantified by microscopic examination. HEPATIC FUNCTION PANEL - Normal LIPASE - Normal HCG URINE, QUALITATIVE - Normal CBC AND DIFFERENTIAL Narrative: The following orders were created for panel order CBC w/ Diff. Procedure Abnormality Status --------- ------ CBC Auto Differential[[id number]] Final result Please view results for these tests on the individual orders. CBC WITH AUTO DIFFERENTIAL Radiographic Imaging (if any) During ED Visit XR Abdomen AP Final Result Negative study. No change. Workstation ID: [id number] Medications Ordered/Given During ED Visit Medications - No data to display Review of Systems Constitutional: Negative for fever. HENT: Negative for congestion. Eyes: Negative for visual disturbance. Respiratory: Negative for chest tightness and shortness of breath. Cardiovascular: Negative for chest pain and palpitations. Gastrointestinal: Positive for anal bleeding. Negative for abdominal pain. Genitourinary: Negative for dysuria. Musculoskeletal: Negative for back pain. Skin: Negative for rash. Neurological: Negative for headaches. All other systems reviewed and are negative. Physical Exam Vital Signs During ED Visit (as charted by nursing) Patient Vitals for the past 24 hrs: BP Temp Temp src Pulse Resp SpO2 Height Weight 01/29/20 0248 99.2 F (37.3 C) Oral 01/29/20 0200 112/76 (!) 114 16 100 % 01/29/20 0112 127/84 98.6 F (37 C) Oral (!) 102 13 100 % 5' 56.7 kg (125 lb) Physical Exam Vitals signs and nursing note reviewed. Exam conducted with a hair boiler operator present (Asma RN). Constitutional: Appearance: Normal appearance. HENT: Head: Normocephalic and atraumatic. Eyes: General: No scleral icterus. Extraocular Movements: Extraocular movements intact. Neck: Musculoskeletal: Neck supple. Cardiovascular: Rate and Rhythm: Normal rate. Pulmonary: Effort: Pulmonary effort is normal. No respiratory distress. Genitourinary: Rectum: Guaiac result negative. No mass, tenderness, anal fissure, external hemorrhoid or internal hemorrhoid. Normal anal tone. Comments: External rectum unremarkable Skin: General: Skin is warm and dry. Neurological: Mental Status: She is alert. PROCEDURES (if any, during ED visit): Anoscopy Date/Time: 01/29/2020 1:32 AM Performed by: Thanh Morris CNP Authorized by: Giovanni Gonzáles DO Verbal consent: obtained Consent given by: patient Relevant documents: Relevent documents present and verified. Medical history, medications, allergies and physical assessment reviewed/completed Test results: test results available and properly labeled Required items: required blood products, implants, devices, and special equipment available Patient identity confirmed: verified patient name and and verbally with patient Time out: Immediately prior to procedure a time out was called to verify the correct patient, procedure, equipment, support dba and site/side marked as required. Physician or proceduralist has discussed critical or nonroutine steps, procedure duration and anticipated blood loss: N/A All team members agree to proceed: Yes (Asma RN) Indications: constipation, irritable bowel syndrome, rectal bleeding and rectal irritation Patient sedated: no Scope type: anoscope External exam performed: yes Negative external exam findings: no pilonidal sinus tract, no pilonidal cyst, no pilonidal tenderness, no perianal skin tags, no perirectal warts, no perianal maceration, no perianal induration, no perianal erythema and no external hemorrhoids Negative internal exam findings: no internal hemorrhoid, no intraluminal mass, no inflammation, no anal fissures, no anal fistulae, no anal stricture and no abscess Procedure termination: procedure complete Patient tolerance: patient tolerated the procedure well with no immediate complications Past Medical History Past Medical History: Diagnosis Date ADD (attention deficit disorder) Alopecia Alopecia areata Anxiety with depression Chronic gastritis Eczema Hypotension IBS (irritable bowel syndrome) Irregular menstrual cycle Kidney stone Mental disorder DEPRESSION AND ANGER ISSUE,ANXIETY Neoplasm of pituitary gland Preeclampsia Vasovagal syncope Past Surgical History Past Surgical History: Procedure Laterality Date COLONOSCOPY CYSTO MAGGI LASER, RETRO, URETEROSCOPY, STENT (USUAL) Right 10/31/2019 Procedure: CYSTOSCOPY,RIGHT RETROGRADE PYELOGRAM, RIGHT URETEROSOCPY,; basket stone extraction RIGHT URETERAL STENT PLACEMENT; Surgeon: Yan Zuñiga MD; Location: [facility] Main OR; Service: Urology CYSTO RETRO STONE MANIPULATION STENT INSERTION Right 11/05/2019 Procedure: CYSTOSCOPY WITH RIGHT STENT REMOVAL; Surgeon: Yan Zuñiga MD; Location: [facility] Main OR; Service: Urology KIDNEY STONE SURGERY 10/31/2019 OTHER SURGICAL HISTORY wisdom teeth Family History Family History Problem Relation Age of Onset Hypertension Mother Hypertension Maternal Grandfather Social History Social History Socioeconomic History Marital status: Single Spouse name: Not on file Number of children: Not on file Years of education: Not on file Highest education level: Not on file Occupational History Not on file Social Needs Financial resource strain: Not on file Food insecurity Worry: Not on file Inability: Not on file Transportation needs Medical: Not on file Non-medical: Not on file Tobacco Use Smoking status: Never Smoker Smokeless tobacco: Never Used Substance and Sexual Activity Alcohol use: No Drug use: No Sexual activity: Yes Partners: Male Lifestyle Physical activity Days per week: Not on file Minutes per session: Not on file Stress: Not on file Relationships Social connections Talks on phone: Not on file Gets together: Not on file Attends faith service: Not on file Active member of club or organization: Not on file Attends meetings of clubs or organizations: Not on file Relationship status: Not on file Other Topics Concern Not on file Social History Narrative Not on file Allergies Allergies Allergen Reactions Cat Dander Shortness Of Breath Ciprofloxacin-Hydrocortisone Swelling Tree Nuts Shortness Of Breath All tree nuts Sulfasalazine Ciprofloxacin Rash and Hives Diphenhydramine Swelling, Hives and Rash Diphenhydramine Hcl Rash and Hives Hydrocortisone Rash and Hives Sulfa (Sulfonamide Antibiotics) Rash and Hives Sulfamethoxazole-Trimethoprim Rash and Hives Medications Previous Medications Medication Sig ARIPiprazole (ABILIFY) 5 MG tablet Take 5 mg by mouth nightly . ascorbate calcium (VITAMIN C ORAL) Take 1 tablet by mouth daily . benztropine (COGENTIN) 0.5 MG tablet Take 0.5 mg by mouth every evening . bisacodyL (Dulcolax, bisacodyl,) 5 mg EC tablet Take 10 mg by mouth every other day . cholecalciferol, vitamin D3, (VITAMIN D3 ORAL) Take 1 tablet by mouth daily . famotidine (PEPCID) 20 MG tablet Take 20 mg by mouth daily as needed . fluconazole (Diflucan) 150 MG tablet Take 1 (one) tablet (150 mg total) by mouth once as needed (may repeat in 3 days) . [] lidocaine (LIDODERM) 5 % patch Place 1 (one) patch on the skin daily Remove & Discard patch within 12 hours or as directed by MD for 5 days . birjkhzq-yxme-PC-calcium-mins 9 mg iron-400 mcg Tab Take 1 tablet by mouth daily . nitrofurantoin, macrocrystal-monohydrate, (MACROBID) 100 MG capsule Take 100 mg by mouth 2 (two) times a day . ondansetron (Zofran ODT) 4 MG disintegrating tablet Dissolve 1 (one) tablet (4 mg total) on top of tongue every 6 (six) hours as needed for nausea . (Patient not taking: Reported on 01/16/2020 .) vitamin with Ca-Iron-FA 27-1 mg Tab Take 1 tablet by mouth every morning . IMPRESSION: 1. Rectal pain 2. Constipation, unspecified constipation type Please note this patient was independently seen and examined by Dr. Gonzáles who determined final impression and plan of care. *Please note that portions of this note were created using We[employer] voice recognition software.* Thanh Morris CNP 01/29/20 0256 This RN at bedside with Ye Morris NP. This pt arrives via EMS. Pt called medics for rectal bleeding lasting 24 hours. Pt states to EMS she has anal fissure. Pt seen here recently. Pt has not had bowel movement since 01/21 when she was discharged from [facility]. Bleeding occurs when pt wipes, liquid pus coming out. Vitals in route 140/90, P 110, R 18, O2 100% Bed: 37 Expected date: Expected time: Means of arrival: Comments: M806/rectal bleeding/kristianett documented in this encounter PCP - Mercedez Cotto CNP [id number] Chief Complaint Patient presents with Abdominal Pain HPI: Patient is a 29-year-old female presented to the emergency room today with this ongoing left lower quadrant pain. She has been seen several times in the month of January for the pain diagnosed with epiploic appendagitis. She states that she does continue to have the pain and this was concerning so she decided to come in today. She just wanted to go away. She is used ibuprofen at home as well as Naprosyn with little relief. She is not vomiting. She is not a fever. No diarrhea. No fevers or chills. This is the same pain that she is had is not better or worse. Review of Systems Review of Systems Constitutional: no fevers Skin: No rash Eyes: No discharge ENMT: No hemoptysis Genitourinary: no obstructive symptoms Endocrine: no polyuria Neurologic: no new numbness Psychiatric: No hallucinations Hematologic/Lymphatic: No abnormal bruising Allergic/Immunologic: no urticaria Other pertinent positives and negatives in HPI Past Medical History Reviewed Past Medical History: Diagnosis Date ADD (attention deficit disorder) Alopecia Alopecia areata Anxiety with depression Chronic gastritis Eczema Hypotension IBS (irritable bowel syndrome) Irregular menstrual cycle Kidney stone Mental disorder DEPRESSION AND ANGER ISSUE,ANXIETY Neoplasm of pituitary gland Preeclampsia Vasovagal syncope Past Surgical History Reviewed Past Surgical History: Procedure Laterality Date COLONOSCOPY CYSTO MAGGI LASER, RETRO, URETEROSCOPY, STENT (USUAL) Right 10/31/2019 Procedure: CYSTOSCOPY,RIGHT RETROGRADE PYELOGRAM, RIGHT URETEROSOCPY,; basket stone extraction RIGHT URETERAL STENT PLACEMENT; Surgeon: Yan Zuñiga MD; Location: [facility] Main OR; Service: Urology CYSTO RETRO STONE MANIPULATION STENT INSERTION Right 11/05/2019 Procedure: CYSTOSCOPY WITH RIGHT STENT REMOVAL; Surgeon: Yan Zuñiga MD; Location: [facility] Main OR; Service: Urology KIDNEY STONE SURGERY 10/31/2019 OTHER SURGICAL HISTORY wisdom teeth Family History Reviewed and not pertinent Family History Problem Relation Age of Onset Hypertension Mother Hypertension Maternal Grandfather Social History Reviewed Social History Socioeconomic History Marital status: Single Spouse name: Not on file Number of children: Not on file Years of education: Not on file Highest education level: Not on file Occupational History Not on file Social Needs Financial resource strain: Not on file Food insecurity Worry: Not on file Inability: Not on file Transportation needs Medical: Not on file Non-medical: Not on file Tobacco Use Smoking status: Never Smoker Smokeless tobacco: Never Used Substance and Sexual Activity Alcohol use: No Drug use: No Sexual activity: Yes Partners: Male Lifestyle Physical activity Days per week: Not on file Minutes per session: Not on file Stress: Not on file Relationships Social connections Talks on phone: Not on file Gets together: Not on file Attends faith service: Not on file Active member of club or organization: Not on file Attends meetings of clubs or organizations: Not on file Relationship status: Not on file Other Topics Concern Not on file Social History Narrative Not on file Allergies Reviewed Allergies Allergen Reactions Cat Dander Shortness Of Breath Ciprofloxacin-Hydrocortisone Swelling Tree Nuts Shortness Of Breath All tree nuts Sulfasalazine Ciprofloxacin Rash and Hives Diphenhydramine Swelling, Hives and Rash Diphenhydramine Hcl Rash and Hives Hydrocortisone Rash and Hives Sulfa (Sulfonamide Antibiotics) Rash and Hives Sulfamethoxazole-Trimethoprim Rash and Hives Medications Patient's Medications New Prescriptions No medications on file Previous Medications ARIPIPRAZOLE (ABILIFY) 5 MG TABLET Take 5 mg by mouth nightly . ASCORBATE CALCIUM (VITAMIN C ORAL) Take 1 tablet by mouth daily . BENZTROPINE (COGENTIN) 0.5 MG TABLET Take 0.5 mg by mouth every evening . BISACODYL (DULCOLAX, BISACODYL,) 5 MG EC TABLET Take 10 mg by mouth every other day . BISACODYL (FLEET) 10 MG/30 ML ENEM Insert 30 mL (10 mg total) into the rectum daily as needed (Constipation) . CHOLECALCIFEROL, VITAMIN D3, (VITAMIN D3 ORAL) Take 1 tablet by mouth daily . FAMOTIDINE (PEPCID) 20 MG TABLET Take 20 mg by mouth daily as needed . FLUCONAZOLE (DIFLUCAN) 150 MG TABLET Take 1 (one) tablet (150 mg total) by mouth once as needed (may repeat in 3 days) . ABAVIDUJ-QCDE-SM-CALCIUM-MINS 9 MG IRON-400 MCG TAB Take 1 tablet by mouth daily . NITROFURANTOIN, MACROCRYSTAL-MONOHYDRATE, (MACROBID) 100 MG CAPSULE Take 100 mg by mouth 2 (two) times a day . ONDANSETRON (ZOFRAN ODT) 4 MG DISINTEGRATING TABLET Dissolve 1 (one) tablet (4 mg total) on top of tongue every 6 (six) hours as needed for nausea . POLYETHYLENE GLYCOL (MIRALAX) 17 GRAM POWDER Take 17 (seventeen) g by mouth daily for 7 days . VITAMIN WITH CA-IRON-FA 27-1 MG TAB Take 1 tablet by mouth every morning . Modified Medications No medications on file Discontinued Medications No medications on file Physical Exam Initial Vital Signs BP (!) 139/94 (BP Location: Right arm, Patient Position: Sitting) Pulse 93 Temp 98.8 F (37.1 C) (Oral) Resp 16 Ht 5' Wt 57.2 kg (126 lb) LMP 01/06/2020 SpO2 99% BMI 24.61 kg/m Physical Exam Vitals signs reviewed. Constitutional: Appearance: She is well-developed. HENT: Head: Normocephalic and atraumatic. Right Ear: External ear normal. Left Ear: External ear normal. Nose: Nose normal. Mouth/Throat: Mouth: Mucous membranes are moist. Eyes: General: No scleral icterus. Pupils: Pupils are equal, round, and reactive to light. Neck: Musculoskeletal: Normal range of motion and neck supple. Cardiovascular: Rate and Rhythm: Normal rate. Pulses: Normal pulses. Pulmonary: Effort: Pulmonary effort is normal. No respiratory distress. Abdominal: General: Abdomen is flat. Bowel sounds are normal. There is no distension. Comments: Abdomen is soft very mild left lower quadrant tenderness although there is no rebound or rigidity. Musculoskeletal: Normal range of motion. Skin: General: Skin is warm and dry. Neurological: General: No focal deficit present. Mental Status: She is alert and oriented to person, place, and time. Psychiatric: Mood and Affect: Mood normal. MDM: Patient is a 29-year-old female with multiple visits to the ER for this left lower quadrant pain. She was diagnosed with epiploic appendagitis but has continued pain want to have surgery today. Abdomen soft. Not believe she warrants any surgery. Patient was given Haldol here with some relief of her symptoms and will be discharged home to follow-up with primary care. She stable for discharge Procedures: Procedures Labs Reviewed - No data to display No orders to display Vital Signs During ED Visit (as charted by nursing) Patient Vitals for the past 24 hrs: BP Temp Temp src Pulse Resp SpO2 Height Weight 02/04/20 1910 (!) 139/94 98.8 F (37.1 C) Oral 93 16 99 % 02/04/20 1908 Oral 5' 57.2 kg (126 lb) IMPRESSION: 1. Left lower quadrant abdominal pain This patient was independently seen and evaluated along with the Emergency Medicine Physician. All medical decision making was completed along with the physician. ARPIT La PA-C 02/04/202117 Pt arrives to triage with a surgical mask Pt reports being dx with Epiploic appendigitis at [facility] on the . Pt reports having pain that is getting worse on the Left quadrant of abd. Pt reports feeling lumps documented in this encounter PCP - Mercedez Cotto, [employer] Chief Complaint Patient presents with Flank Pain HPI, MDM, & ED COURSE Ms. Johnson is a 29-year-old female presenting from home for chief complaint of left flank pain which she states had been mild, but is much worse over the last few hours. Patient was seen about a week ago and had CT scan with tiny kidney cyst without any stones. She has not had any dysuria or hematuria. No abnormal vaginal bleeding or discharge. Patient was not immediately forthcoming with the information that she had fallen within the last 12 hours at home. She states that she lost her balance and tripped falling and striking her forehead on furniture in her living room. She did not lose consciousness. She was suffering from headache and had been seen at [facility] already and had CT scan of her head which was negative. She states that she was not evaluated for her flank pain at that time. Patient notes that she has been taking Tylenol and ibuprofen and her headache is gone, but she is suffering from the flank pain. She is not on any anticoagulants and denies any toxic substances. She is resting comfortably and has no external signs of trauma other than a superficial abrasion to her forehead. She did not pass out. She has not had any recent febrile illness, cough or cold, sore throat, nausea or vomiting. No difficulty in breathing. No diarrhea or constipation. CBC, BMP, and UA here were benign. CT of the chest abdomen and pelvis did not show any signs of trauma or other acute abnormality. Patient is feeling better on recheck and was discharged in stable condition. I recommended that she call her primary care physician this morning for close follow-up and return if worsening at any time. IMPRESSION 1. Fall, initial encounter 2. Contusion of left chest wall, initial encounter 3. Flank pain 4. Closed head injury, initial encounter Review of Systems All systems reviewed and negative except as mentioned in HPI or as noted below: Constitutional: Unintended weight loss NO Eyes: Visual dimming NO ENT: Frequent epistaxis NO Respiratory: Apnea spells NO CV: Syncope NO GI: Abdominal distension NO : Enuresis NO Heme: Unexplained bruising NO Endocrine: Heat intolerance NO Neuro: Tremor NO Past Medical History Past Medical History: Diagnosis Date ADD (attention deficit disorder) Alopecia Alopecia areata Anxiety with depression Chronic gastritis Eczema Hypotension IBS (irritable bowel syndrome) Irregular menstrual cycle Kidney stone Mental disorder DEPRESSION AND ANGER ISSUE,ANXIETY Neoplasm of pituitary gland Preeclampsia Vasovagal syncope Past Surgical History Past Surgical History: Procedure Laterality Date COLONOSCOPY CYSTO MAGGI LASER, RETRO, URETEROSCOPY, STENT (USUAL) Right 10/31/2019 Procedure: CYSTOSCOPY,RIGHT RETROGRADE PYELOGRAM, RIGHT URETEROSOCPY,; basket stone extraction RIGHT URETERAL STENT PLACEMENT; Surgeon: Yan Zuñiga MD; Location: [facility] Main OR; Service: Urology CYSTO RETRO STONE MANIPULATION STENT INSERTION Right 11/05/2019 Procedure: CYSTOSCOPY WITH RIGHT STENT REMOVAL; Surgeon: Yan Zuñiga MD; Location: [facility] Main OR; Service: Urology KIDNEY STONE SURGERY 10/31/2019 OTHER SURGICAL HISTORY wisdom teeth Family History Family History Problem Relation Age of Onset Hypertension Mother Hypertension Maternal Grandfather Social History Social History Tobacco Use Smoking status: Never Smoker Smokeless tobacco: Never Used Substance Use Topics Alcohol use: No Drug use: No Allergies Allergies Allergen Reactions Cat Dander Shortness Of Breath Ciprofloxacin-Hydrocortisone Swelling Tree Nuts Shortness Of Breath All tree nuts Sulfasalazine Ciprofloxacin Rash and Hives Diphenhydramine Swelling, Hives and Rash Diphenhydramine Hcl Rash and Hives Hydrocortisone Rash and Hives Sulfa (Sulfonamide Antibiotics) Rash and Hives Sulfamethoxazole-Trimethoprim Rash and Hives Medications Luli Johnson Home Medication Instructions Prior to Surgery SARITHA:[id number] Printed on:02/08/20 5685 Medication Information Take last dose on Take the morning of surgery Comment(s) ARIPiprazole (ABILIFY) 5 MG tablet Take 5 mg by mouth nightly . ascorbate calcium (VITAMIN C ORAL) Take 1 tablet by mouth daily . benztropine (COGENTIN) 0.5 MG tablet Take 0.5 mg by mouth every evening . bisacodyL (Dulcolax, bisacodyl,) 5 mg EC tablet Take 10 mg by mouth every other day . bisacodyL (FLEET) 10 mg/30 mL Enem Insert 30 mL (10 mg total) into the rectum daily as needed (Constipation) . cholecalciferol, vitamin D3, (VITAMIN D3 ORAL) Take 1 tablet by mouth daily . famotidine (PEPCID) 20 MG tablet Take 20 mg by mouth daily as needed . fluconazole (Diflucan) 150 MG tablet Take 1 (one) tablet (150 mg total) by mouth once as needed (may repeat in 3 days) . ibuprofen (ADVIL,MOTRIN) 600 MG tablet Take 1 (one) tablet (600 mg total) by mouth every 6 (six) hours as needed for pain . lidocaine (LIDODERM) 5 % patch Place 1 (one) patch on the skin daily Remove & Discard patch within 12 hours or as directed by MD for 15 days . nfflfnwg-cfcv-NF-calcium-mins 9 mg iron-400 mcg Tab Take 1 tablet by mouth daily . nitrofurantoin, macrocrystal-monohydrate, (MACROBID) 100 MG capsule Take 100 mg by mouth 2 (two) times a day . nystatin (MYCOSTATIN) ointment Apply topically 2 (two) times a day . ondansetron (Zofran ODT) 4 MG disintegrating tablet Dissolve 1 (one) tablet (4 mg total) on top of tongue every 6 (six) hours as needed for nausea . vitamin with Ca-Iron-FA 27-1 mg Tab Take 1 tablet by mouth every morning . terconazole (TERAZOL 3) 0.8 % vaginal cream Insert 1 (one) applicator into the vagina nightly for 3 days . Physical Exam Initial Vital Signs BP 108/80 (BP Location: Right arm, Patient Position: Sitting) Pulse 92 Temp 98.6 F (37 C) (Oral) Resp (!) 1 Ht 5' Wt 55.7 kg (122 lb 14.4 oz) SpO2 97% BMI 24.00 kg/m Vital Signs During ED Visit (as charted by nursing) Patient Vitals for the past 24 hrs: BP Temp Temp src Pulse Resp SpO2 Height Weight 02/08/20 0550 108/80 Oral 92 (!) 1 97 % 02/08/20 0300 117/79 98.6 F (37 C) Oral 86 18 97 % 5' 55.7 kg (122 lb 14.4 oz) Physical Exam Vitals signs and nursing note reviewed. Constitutional: General: She is not in acute distress. Appearance: She is well-developed. HENT: Head: Normocephalic. Comments: Patient with superficial abrasion to her frontal area. Eyes: Extraocular Movements: Extraocular movements intact. Pupils: Pupils are equal, round, and reactive to light. Neck: Musculoskeletal: Normal range of motion and neck supple. Cardiovascular: Rate and Rhythm: Normal rate and regular rhythm. Pulmonary: Effort: Pulmonary effort is normal. Breath sounds: Normal breath sounds. Comments: There is tenderness to palpation along the left lower lateral chest wall without any ecchymosis or crepitus. Abdominal: Palpations: Abdomen is soft. Comments: There is tenderness along the left flank without any external signs of trauma. Otherwise benign abdominal exam Musculoskeletal: Normal range of motion. General: No deformity. Skin: General: Skin is warm and dry. Neurological: General: No focal deficit present. Mental Status: She is alert and oriented to person, place, and time. Psychiatric: Mood and Affect: Mood normal. Behavior: Behavior normal. Labs Reviewed BASIC METABOLIC PANEL - Abnormal; Notable for the following components: Result Value Glucose 110 (*) All other components within normal limits Narrative: The eGFR should be used for monitoring renal function only and not for medication dosing. URINALYSIS - Abnormal; Notable for the following components: Clarity, Urine Hazy (*) Blood, Urine Moderate (*) Leukocyte Esterase, Urine Small (*) WBCs, Urine 7 (*) RBCs, Urine 4 (*) All other components within normal limits Narrative: Microscopic examination is performed on all urinalysis samples and only positive findings are reported. The test for blood on the chemical analytic portion of urinalysis may also be positive due to hemoglobinuria and myoglobinuria and if red blood cells are present they are quantified by microscopic examination. HCG URINE, QUALITATIVE - Normal CBC AND DIFFERENTIAL Narrative: The following orders were created for panel order CBC w/ Diff. Procedure Abnormality Status --------- ------ CBC Auto Differential[[id number]] Final result Please view results for these tests on the individual orders. CBC WITH AUTO DIFFERENTIAL Radiographic Imaging (if any) During ED Visit CT Chest Abdomen Pelvis With IV Contrast Only Final Result 1. No intrathoracic, intraabdominal or pelvic organ injury. 2. No definite rib fractures, particularly on the left, are seen. eDealya Workstation ID: [id number] Medications Ordered/Given During ED Visit Medications sodium chloride (PF) (NS) 0.9 % contrast line flush 10 mL (10 mL Intravenous Given 02/08/20524) And sodium chloride (PF) (NS) 0.9 % contrast line flush 80 mL (80 mL Intravenous Given 02/08/20524) And iopamidoL (ISOVUE-370) 76 % injection 75 mL (75 mL Intravenous Contrast Administered 02/08/20524) HYDROmorphone (DILAUDID) injection 0.5 mg (0.5 mg Intravenous Given 02/08/20421) ondansetron (ZOFRAN) injection 4 mg (4 mg Intravenous Given 02/08/20420) Procedures (Please note that portions of this note may have been completed with a voice recognition software. Words and phrases may be mis-transcribed. Document signed, but not proofread.) Giovanni Gonzáles DO 02/08/20622 Pt ambulates into triage with surgical mask in place and a steady gait with reports of left flank pain. Pt reports she was diagnosed with a kidney cyst a few days ago but her pain has increased tonight. Pt denies any urinary changes. documented in this encounter PCP - Mercedez Cotto, LAWANDA Chief Complaint Patient presents with Flank Pain HPI, MDM, & ED COURSE Ms. Johnson is a 29-year-old female presenting from home for chief complaint of left flank pain which she states had been mild, but is much worse over the last few hours. Patient was seen about a week ago and had CT scan with tiny kidney cyst without any stones. She has not had any dysuria or hematuria. No abnormal vaginal bleeding or discharge. Patient was not immediately forthcoming with the information that she had fallen within the last 12 hours at home. She states that she lost her balance and tripped falling and striking her forehead on furniture in her living room. She did not lose consciousness. She was suffering from headache and had been seen at [facility] already and had CT scan of her head which was negative. She states that she was not evaluated for her flank pain at that time. Patient notes that she has been taking Tylenol and ibuprofen and her headache is gone, but she is suffering from the flank pain. She is not on any anticoagulants and denies any toxic substances. She is resting comfortably and has no external signs of trauma other than a superficial abrasion to her forehead. She did not pass out. She has not had any recent febrile illness, cough or cold, sore throat, nausea or vomiting. No difficulty in breathing. No diarrhea or constipation. CBC, BMP, and UA here were benign. CT of the chest abdomen and pelvis did not show any signs of trauma or other acute abnormality. Patient is feeling better on recheck and was discharged in stable condition. I recommended that she call her primary care physician this morning for close follow-up and return if worsening at any time. IMPRESSION 1. Fall, initial encounter 2. Contusion of left chest wall, initial encounter 3. Flank pain 4. Closed head injury, initial encounter Review of Systems All systems reviewed and negative except as mentioned in HPI or as noted below: Constitutional: Unintended weight loss NO Eyes: Visual dimming NO ENT: Frequent epistaxis NO Respiratory: Apnea spells NO CV: Syncope NO GI: Abdominal distension NO : Enuresis NO Heme: Unexplained bruising NO Endocrine: Heat intolerance NO Neuro: Tremor NO Past Medical History Past Medical History: Diagnosis Date ADD (attention deficit disorder) Alopecia Alopecia areata Anxiety with depression Chronic gastritis Eczema Hypotension IBS (irritable bowel syndrome) Irregular menstrual cycle Kidney stone Mental disorder DEPRESSION AND ANGER ISSUE,ANXIETY Neoplasm of pituitary gland Preeclampsia Vasovagal syncope Past Surgical History Past Surgical History: Procedure Laterality Date COLONOSCOPY CYSTO MAGGI LASER, RETRO, URETEROSCOPY, STENT (USUAL) Right 10/31/2019 Procedure: CYSTOSCOPY,RIGHT RETROGRADE PYELOGRAM, RIGHT URETEROSOCPY,; basket stone extraction RIGHT URETERAL STENT PLACEMENT; Surgeon: Yan Zuñiga MD; Location: [facility] Main OR; Service: Urology CYSTO RETRO STONE MANIPULATION STENT INSERTION Right 11/05/2019 Procedure: CYSTOSCOPY WITH RIGHT STENT REMOVAL; Surgeon: Yan Zuñiga MD; Location: [facility] Main OR; Service: Urology KIDNEY STONE SURGERY 10/31/2019 OTHER SURGICAL HISTORY wisdom teeth Family History Family History Problem Relation Age of Onset Hypertension Mother Hypertension Maternal Grandfather Social History Social History Tobacco Use Smoking status: Never Smoker Smokeless tobacco: Never Used Substance Use Topics Alcohol use: No Drug use: No Allergies Allergies Allergen Reactions Cat Dander Shortness Of Breath Ciprofloxacin-Hydrocortisone Swelling Tree Nuts Shortness Of Breath All tree nuts Sulfasalazine Ciprofloxacin Rash and Hives Diphenhydramine Swelling, Hives and Rash Diphenhydramine Hcl Rash and Hives Hydrocortisone Rash and Hives Sulfa (Sulfonamide Antibiotics) Rash and Hives Sulfamethoxazole-Trimethoprim Rash and Hives Medications Luli Johnson Home Medication Instructions Prior to Surgery SARITHA:[id number] Printed on:02/08/20 0619 Medication Information Take last dose on Take the morning of surgery Comment(s) ARIPiprazole (ABILIFY) 5 MG tablet Take 5 mg by mouth nightly . ascorbate calcium (VITAMIN C ORAL) Take 1 tablet by mouth daily . benztropine (COGENTIN) 0.5 MG tablet Take 0.5 mg by mouth every evening . bisacodyL (Dulcolax, bisacodyl,) 5 mg EC tablet Take 10 mg by mouth every other day . bisacodyL (FLEET) 10 mg/30 mL Enem Insert 30 mL (10 mg total) into the rectum daily as needed (Constipation) . cholecalciferol, vitamin D3, (VITAMIN D3 ORAL) Take 1 tablet by mouth daily . famotidine (PEPCID) 20 MG tablet Take 20 mg by mouth daily as needed . fluconazole (Diflucan) 150 MG tablet Take 1 (one) tablet (150 mg total) by mouth once as needed (may repeat in 3 days) . ibuprofen (ADVIL,MOTRIN) 600 MG tablet Take 1 (one) tablet (600 mg total) by mouth every 6 (six) hours as needed for pain . lidocaine (LIDODERM) 5 % patch Place 1 (one) patch on the skin daily Remove & Discard patch within 12 hours or as directed by MD for 15 days . rxrvuzqs-yymp-HB-calcium-mins 9 mg iron-400 mcg Tab Take 1 tablet by mouth daily . nitrofurantoin, macrocrystal-monohydrate, (MACROBID) 100 MG capsule Take 100 mg by mouth 2 (two) times a day . nystatin (MYCOSTATIN) ointment Apply topically 2 (two) times a day . ondansetron (Zofran ODT) 4 MG disintegrating tablet Dissolve 1 (one) tablet (4 mg total) on top of tongue every 6 (six) hours as needed for nausea . vitamin with Ca-Iron-FA 27-1 mg Tab Take 1 tablet by mouth every morning . terconazole (TERAZOL 3) 0.8 % vaginal cream Insert 1 (one) applicator into the vagina nightly for 3 days . Physical Exam Initial Vital Signs BP 108/80 (BP Location: Right arm, Patient Position: Sitting) Pulse 92 Temp 98.6 F (37 C) (Oral) Resp (!) 1 Ht 5' Wt 55.7 kg (122 lb 14.4 oz) SpO2 97% BMI 24.00 kg/m Vital Signs During ED Visit (as charted by nursing) Patient Vitals for the past 24 hrs: BP Temp Temp src Pulse Resp SpO2 Height Weight 02/08/20 0550 108/80 Oral 92 (!) 1 97 % 02/08/20 0300 117/79 98.6 F (37 C) Oral 86 18 97 % 5' 55.7 kg (122 lb 14.4 oz) Physical Exam Vitals signs and nursing note reviewed. Constitutional: General: She is not in acute distress. Appearance: She is well-developed. HENT: Head: Normocephalic. Comments: Patient with superficial abrasion to her frontal area. Eyes: Extraocular Movements: Extraocular movements intact. Pupils: Pupils are equal, round, and reactive to light. Neck: Musculoskeletal: Normal range of motion and neck supple. Cardiovascular: Rate and Rhythm: Normal rate and regular rhythm. Pulmonary: Effort: Pulmonary effort is normal. Breath sounds: Normal breath sounds. Comments: There is tenderness to palpation along the left lower lateral chest wall without any ecchymosis or crepitus. Abdominal: Palpations: Abdomen is soft. Comments: There is tenderness along the left flank without any external signs of trauma. Otherwise benign abdominal exam Musculoskeletal: Normal range of motion. General: No deformity. Skin: General: Skin is warm and dry. Neurological: General: No focal deficit present. Mental Status: She is alert and oriented to person, place, and time. Psychiatric: Mood and Affect: Mood normal. Behavior: Behavior normal. Labs Reviewed BASIC METABOLIC PANEL - Abnormal; Notable for the following components: Result Value Glucose 110 (*) All other components within normal limits Narrative: The eGFR should be used for monitoring renal function only and not for medication dosing. URINALYSIS - Abnormal; Notable for the following components: Clarity, Urine Hazy (*) Blood, Urine Moderate (*) Leukocyte Esterase, Urine Small (*) WBCs, Urine 7 (*) RBCs, Urine 4 (*) All other components within normal limits Narrative: Microscopic examination is performed on all urinalysis samples and only positive findings are reported. The test for blood on the chemical analytic portion of urinalysis may also be positive due to hemoglobinuria and myoglobinuria and if red blood cells are present they are quantified by microscopic examination. HCG URINE, QUALITATIVE - Normal CBC AND DIFFERENTIAL Narrative: The following orders were created for panel order CBC w/ Diff. Procedure Abnormality Status --------- ------ CBC Auto Differential[[id number]] Final result Please view results for these tests on the individual orders. CBC WITH AUTO DIFFERENTIAL Radiographic Imaging (if any) During ED Visit CT Chest Abdomen Pelvis With IV Contrast Only Final Result 1. No intrathoracic, intraabdominal or pelvic organ injury. 2. No definite rib fractures, particularly on the left, are seen. iExplore/Slingbox Workstation ID: [id number] Medications Ordered/Given During ED Visit Medications sodium chloride (PF) (NS) 0.9 % contrast line flush 10 mL (10 mL Intravenous Given 02/08/2025) And sodium chloride (PF) (NS) 0.9 % contrast line flush 80 mL (80 mL Intravenous Given 02/08/2025) And iopamidoL (ISOVUE-370) 76 % injection 75 mL (75 mL Intravenous Contrast Administered 02/08/2025) HYDROmorphone (DILAUDID) injection 0.5 mg (0.5 mg Intravenous Given 02/08/20 042) ondansetron (ZOFRAN) injection 4 mg (4 mg Intravenous Given 02/08/20420) Procedures (Please note that portions of this note may have been completed with a voice recognition software. Words and phrases may be mis-transcribed. Document signed, but not proofread.) Giovanni Gonzáles DO 02/08/20622 Pt ambulates into triage with surgical mask in place and a steady gait with reports of left flank pain. Pt reports she was diagnosed with a kidney cyst a few days ago but her pain has increased tonight. Pt denies any urinary changes. documented in this encounter Pt tachycardic up to the 150s while vomiting. HR back down to [address] Rivera notified. Report given to oncoming RN. Questions answered. ED PROVIDER NOTE [facility] NAME: Luli Johnson AGE: 29 y.o. : 1990 VISIT DATE: 04/06/2020 CSN: [id number] PCP: Mercedez Cotto CNP Chief Complaint Patient presents with Flank Pain 29-year-old female here with flank pain, abdominal pain, urinary symptoms. She has a history of IBS, kidney stones. She states that she had a miscarriage several weeks ago. She states that she had a positive test earlier in the month and then on the she had bleeding with clot and tissue. 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 She was tested for STDs. She was treated for vaginal yeast infection. She states other symptoms of bring her in today started a couple days ago. She states she started to notice some suprapubic abdominal discomfort. She had dysuria and urinary frequency. She denies any hematuria. She has no new vaginal discharge or irritation. She states yesterday she developed abdominal discomfort. She states this is diffuse discomfort in her abdomen. She also has bilateral flank pain. She believes she may have had a fever today. She denies body aches. She denies loss of sense of taste or smell. She has no cough or difficulty breathing. She states she was exposed to her mom who tested positive for Covid 2 weeks ago however was asymptomatic. Past Medical History: Diagnosis Date ADD (attention deficit disorder) Alopecia Alopecia areata Anxiety with depression Chronic gastritis Eczema Hypotension IBS (irritable bowel syndrome) Irregular menstrual cycle Kidney stone Mental disorder DEPRESSION AND ANGER ISSUE,ANXIETY Neoplasm of pituitary gland Preeclampsia Vasovagal syncope Past Surgical History: Procedure Laterality Date COLONOSCOPY CYSTO MAGGI LASER, RETRO, URETEROSCOPY, STENT (USUAL) Right 10/31/2019 Procedure: CYSTOSCOPY,RIGHT RETROGRADE PYELOGRAM, RIGHT URETEROSOCPY,; basket stone extraction RIGHT URETERAL STENT PLACEMENT; Surgeon: Yan Zuñiga MD; Location: [facility] Main OR; Service: Urology CYSTO RETRO STONE MANIPULATION STENT INSERTION Right 11/05/2019 Procedure: CYSTOSCOPY WITH RIGHT STENT REMOVAL; Surgeon: Yan Zuñiga MD; Location: [facility] Main OR; Service: Urology KIDNEY STONE SURGERY 10/31/2019 OTHER SURGICAL HISTORY wisdom teeth Family History Problem Relation Age of Onset Hypertension Mother Hypertension Maternal Grandfather Social History Socioeconomic History Marital status: Single Spouse name: Not on file Number of children: Not on file Years of education: Not on file Highest education level: Not on file Occupational History Not on file Social Needs Financial resource strain: Not on file Food insecurity Worry: Not on file Inability: Not on file Transportation needs Medical: Not on file Non-medical: Not on file Tobacco Use Smoking status: Never Smoker Smokeless tobacco: Never Used Substance and Sexual Activity Alcohol use: No Drug use: No Sexual activity: Yes Partners: Male Lifestyle Physical activity Days per week: Not on file Minutes per session: Not on file Stress: Not on file Relationships Social connections Talks on phone: Not on file Gets together: Not on file Attends faith service: Not on file Active member of club or organization: Not on file Attends meetings of clubs or organizations: Not on file Relationship status: Not on file Other Topics Concern Not on file Social History Narrative Not on file Previous Medications Medication Sig ARIPiprazole (ABILIFY) 5 MG tablet Take 5 mg by mouth nightly . ascorbate calcium (VITAMIN C ORAL) Take 1 tablet by mouth daily . benztropine (COGENTIN) 0.5 MG tablet Take 0.5 mg by mouth every evening . bisacodyL (FLEET) 10 mg/30 mL Enem Insert 30 mL (10 mg total) into the rectum daily as needed (Constipation) . cholecalciferol, vitamin D3, (VITAMIN D3 ORAL) Take 1 tablet by mouth daily . famotidine (PEPCID) 20 MG tablet Take 20 mg by mouth daily as needed . fluconazole (Diflucan) 150 MG tablet Take 1 (one) tablet (150 mg total) by mouth once as needed (may repeat in 3 days) . fluconazole (Diflucan) 150 MG tablet Take 1 (one) tablet (150 mg total) by mouth once as needed (may repeat in 3 days) . dbdetyiu-ahzn-XC-calcium-mins 9 mg iron-400 mcg Tab Take 1 tablet by mouth daily . nystatin (MYCOSTATIN) ointment Apply topically 2 (two) times a day . vitamin with Ca-Iron-FA 27-1 mg Tab Take 1 tablet by mouth every morning . Allergies Allergen Reactions Cat Dander Shortness Of Breath Ciprofloxacin-Hydrocortisone Swelling Tree Nuts Shortness Of Breath All tree nuts Sulfasalazine Ciprofloxacin Rash and Hives Diphenhydramine Swelling, Hives and Rash Diphenhydramine Hcl Rash and Hives Hydrocortisone Rash and Hives Sulfa (Sulfonamide Antibiotics) Rash and Hives Sulfamethoxazole-Trimethoprim Rash and Hives Review of Systems Constitutional: Positive for fever. HENT: Negative for drooling. Eyes: Negative for redness. Respiratory: Negative for cough. Cardiovascular: Negative for chest pain. Gastrointestinal: Positive for abdominal pain. Genitourinary: Positive for dysuria and flank pain. Negative for vaginal discharge. Musculoskeletal: Negative for gait problem. Skin: Negative for wound. Neurological: Negative for facial asymmetry. Psychiatric/Behavioral: Negative for agitation. All other systems reviewed and are negative. Patient Vitals for the past 24 hrs: BP Temp Temp src Pulse Resp SpO2 Height Weight 04/06/20 2100 98/66 92 16 100 % 04/06/201999 113/75 95 15 98 % 04/06/20 1855 108/74 99 F (37.2 C) Oral 95 18 98 % 04/06/20 1818 (!) 166/85 100 F (37.8 C) Tympanic (!) 136 18 100 % 5' 55 kg (121 lb 4.8 oz) Physical Exam Vitals signs reviewed. Constitutional: Appearance: She is well-developed. She is not toxic-appearing. HENT: Head: Normocephalic and atraumatic. Right Ear: External ear normal. Left Ear: External ear normal. Nose: Nose normal. Eyes: Conjunctiva/sclera: Conjunctivae normal. Cardiovascular: Rate and Rhythm: Regular rhythm. Tachycardia present. Pulmonary: Effort: Pulmonary effort is normal. No respiratory distress. Breath sounds: Normal breath sounds. Abdominal: General: There is no distension. Palpations: Abdomen is soft. Tenderness: There is abdominal tenderness. Comments: Diffuse tenderness, bilateral CVA tenderness, no peritoneal signs. Musculoskeletal: Normal range of motion. Skin: General: Skin is warm and dry. Neurological: Mental Status: She is alert and oriented to person, place, and time. Laboratory & Radiographic Imaging (if done): Results for orders placed or performed during the hospital encounter of 04/06/20 COVID-19/Influenza A,B Molecular Specimen: Nasopharyngeal; Swab Result Value Ref Range SARS-CoV-2 Detected (A) Not Detected Influenza A Not Detected Not Detected Influenza B Not Detected Not Detected BMP Result Value Ref Range Sodium 139 135 - 145 mmol/L Potassium 3.5 3.5 - 5.1 mmol/L Chloride 101 98 - 108 mmol/L Bicarbonate 27 21 - 32 mmol/L Anion Gap 15 10 - 20 mmol/L Glucose 91 65 - 99 mg/dL BUN 14 8 - 25 mg/dL Creatinine 0.77 0.40 - 1.10 mg/dL eGFR 105 >=60 mL/min/1.73 m2 BUN/Creatinine Ratio 18.2 10.0 - 20.0 Calcium 10.0 8.4 - 10.2 mg/dL HCG (QUALITATIVE) Result Value Ref Range Beta-hCG Qual Negative Negative Urinalysis Result Value Ref Range Color, Urine Yellow Colorless, Yellow Clarity, Urine Clear Clear Specific [place] 1.023 1.005 - 1.025 pH, Urine 7.0 5.0 - 7.0 Protein, Urine Negative Negative mg/dL Glucose, Urine Negative Negative mg/dL Ketones, Urine Negative Negative mg/dL Bilirubin, Urine Negative Negative Urobilinogen, Urine <2.0 <2.0 mg/dL Blood, Urine Moderate (A) Negative Nitrite, Urine Negative Negative Leukocyte Esterase, Urine Negative Negative WBCs, Urine 1 0 - 5 /hpf RBCs, Urine 1 0 - 3 /hpf Bacteria, Urine None Seen None Seen /hpf Squamous Epithelial 2 0 - 4 /hpf Mucus, Urine Rare None Seen, Rare /lpf Lipase Result Value Ref Range Lipase 41 15 - 65 U/L Hepatic Function Panel (LFT) Result Value Ref Range Total Protein 8.4 (H) 6.0 - 8.0 g/dL Albumin 5.3 (H) 3.2 - 5.2 g/dL Total Bilirubin <0.2 0.0 - 1.3 mg/dL Bilirubin, Direct <0.1 0.0 - 0.4 mg/dL Alkaline Phosphatase 47 40 - 140 U/L AST 17 0 - 45 U/L ALT 18 0 - 40 U/L Lactic Acid, Plasma Result Value Ref Range Lactic Acid 1.4 0.6 - 2.0 mmol/L Gold Top Result Value Ref Range Extra Tube Hold for add-ons. Light Blue Top Result Value Ref Range Extra Tube Hold for add-ons. CBC Auto Differential Result Value Ref Range WBC 6.87 4.50 - 11.00 K/mcL RBC 4.69 4.00 - 5.20 M/mcL Hemoglobin 13.1 12.0 - 16.0 g/dL Hematocrit 39.5 36.0 - 46.0 % MCV 84.2 80.0 - 100.0 fL MCH 27.9 26.0 - 34.0 pg MCHC 33.2 31.0 - 37.0 g/dL Platelets 276 150 - 400 K/mcL RDW - CV 14.1 11.6 - 14.8 % MPV 9.6 9.4 - 12.4 fL Neutrophils 56.7 % Lymphocytes 34.1 % Monocytes 7.0 % Eosinophils 1.5 % Basophils 0.4 % IG Percent 0.30 % Neutrophils Abs 3.90 1.70 - 7.00 K/mcL Lymphocytes Abs 2.34 0.90 - 4.00 K/mcL Monocytes Abs 0.48 0.30 - 0.90 K/mcL Eosinophils Abs 0.10 0.00 - 0.50 K/mcL Basophils Abs 0.03 0.00 - 0.30 K/mcL IG Absolute 0.02 0.00 - 0.30 K/mcL Nucleated RBC 0.0 % Nucleated RBC Abs 0.00 0.00 - 0.00 K/mcL CT Kidney Stone Final Result 1. No acute process identified. Normal appendix. MA/vivi Workstation ID: [id number] Procedures MDM . . 29-year-old female here with flank pain, abdominal pain, dysuria. She has a low- grade fever on arrival, she is tachycardic. She does appear uncomfortable. She is mild diffuse abdominal tenderness as well CVA tenderness. She also reports exposure to Covid. IV access obtained. She was given fluids, zofran and Tylenol. Laboratory evaluation blood cultures were performed given tachycardia and low-grade fever. Covid swab sent. Her labs are reassuring. She has a normal white blood cell count. Normal lactate. Chemistry is unremarkable. Urinalysis shows blood, no evidence of infection. is negative. CT kidney stone shows no acute process, normal appendix. She is positive for COVID-19. Patient did have some recurrent vomiting after initial medications. She was given additional dose of Zofran with improvement. Abdominal exam remains benign. Her vital signs have normalized. We discussed results of her work-up. I do suspect COVID- 19 is the etiology of her low-grade fever and generalized pains. I do not see any evidence of UTI, kidney stone or intra-abdominal process. She has no difficulty breathing, she is satting 100% on room air without distress. I do not feel that chest x-ray is needed at this time. I feel she is appropriate for discharge home. Will prescribe a short course of Zofran for her nausea and vomiting. Patient instructed to self quarantine. We discussed strict return precautions. Patient is comfortable this plan and discharge home. Clinical Impression: 1. COVID-19 virus detected 2. Flank pain 3. Hematuria, unspecified type 4. Non-intractable vomiting with nausea, unspecified vomiting type ED Disposition ED Disposition Condition Comment Discharge Stable Luli Jones Sandoval discharged to home/self care in stable condition. Follow-up Information 1. Mercedez oCtto, LAWANDA. Specialties: Internal Medicine, Nurse Practitioner [address] [id number] Contact information for after-discharge care Follow-up information has not been specified. New Prescriptions ondansetron (ZOFRAN-ODT) 4 MG disintegrating tablet Dissolve 1 (one) tablet (4 mg total) on top of tongue every 8 (eight) hours as needed for nausea . Afshan Rivera MD 04/06/202112 Patient arrives ambulatory to triage with c/o flank, back and abdominal pain. Patient reports N/V for the past 24 hours as well documented in this encounter [facility] PCP - Mercedez Cotto, GARAGE LABORER Chief Complaint Patient presents with Emesis Fatigue Flank Pain HPI MEDICAL DECISION MAKING Patient is a 29-year-old female presents emergency department right-sided flank pain. Recently underwent CT imaging was found to have a renal calculus especially 5 mm. States that she had worsening pain. This is her third visit over the last week for this pain. She says it is progressively getting worse. But intermittently more stabbing type pain. No hematuria dysuria. No chest pain shortness of breath no neck pain no back pain. No visual changes paresthesias or weakness. No trauma. Symptoms are moderate. Nothing makes it better or worse. Patient with abdominal pain. Work-up concerning for urethral stone. Ultrasound of the kidney and bladder questions stone within the bladder, but due to persistent pain she will be admitted for further work-up and potential urology consultation. CLINICAL IMPRESSION 1. Nephrolithiasis 2. Flank pain 3. Intractable vomiting with nausea, unspecified vomiting type Follow-up Information Follow-up information has not been specified. Contact information for after-discharge care Follow-up information has not been specified. . Labs Reviewed CHEM 7 - Abnormal; Notable for the following components: Result Value BUN/Creatinine Ratio 20.8 (*) All other components within normal limits Narrative: The eGFR should be used for monitoring renal function only and not for medication dosing. URINALYSIS - Abnormal; Notable for the following components: Clarity, Urine Hazy (*) Blood, Urine Moderate (*) Leukocyte Esterase, Urine Small (*) WBCs, Urine 16 (*) RBCs, Urine 159 (*) Bacteria, Urine Rare (*) Mucus, Urine Few (*) All other components within normal limits Narrative: Microscopic examination is performed on all urinalysis samples and only positive findings are reported. The test for blood on the chemical analytic portion of urinalysis may also be positive due to hemoglobinuria and myoglobinuria and if red blood cells are present they are quantified by microscopic examination. COVID-19, MOLECULAR CBC AND DIFFERENTIAL Narrative: The following orders were created for panel order CBC w/ Diff. Procedure Abnormality Status --------- ------ CBC Auto Differential[[id number]] Final result Please view results for these tests on the individual orders. CBC WITH AUTO DIFFERENTIAL Radiographic Imaging (if any) During ED Visit US Renal and Bladder Non-public Result No sonographic evidence of hydronephrosis. Small echogenic structure within the right aspect of the bladder, measuring approximately 8 mm, potentially representing a bladder calculus, possibly having passed from the right kidney given that previously noted small right renal calculus on recent CT is not well delineated on this exam. Correlation with urinalysis and follow-up CT kidney stone are advisable for more complete characterization/assessment. Workstation ID: [id number] Medications Ordered/Given During ED Visit Medications sodium chloride 0.9% (NS) (125 mL/hr Intravenous New Bag 12/05/192302) morphine syringe 4 mg (4 mg Intravenous Given 12/05/192305) ondansetron (ZOFRAN) injection 4 mg (4 mg Intravenous Given 12/05/192305) Review of Systems Constitutional: Negative for fever. HENT: Negative for congestion. Eyes: Negative for visual disturbance. Respiratory: Negative for chest tightness and shortness of breath. Cardiovascular: Negative for chest pain and palpitations. Gastrointestinal: Positive for abdominal pain. Genitourinary: Negative for dysuria. Musculoskeletal: Negative for back pain. Skin: Negative for rash. Neurological: Negative for headaches. All other systems reviewed and are negative. Physical Exam Vital Signs During ED Visit (as charted by nursing) Patient Vitals for the past 24 hrs: BP Temp Temp src Pulse Resp SpO2 Height Weight 12/05/19 2217 118/84 92 18 99 % 12/05/19 1739 113/79 98.4 F (36.9 C) Oral 98 16 98 % 5' 55.3 kg (122 lb) Physical Exam Vitals signs and nursing note reviewed. Constitutional: Appearance: Normal appearance. HENT: Head: Normocephalic and atraumatic. Eyes: General: No scleral icterus. Extraocular Movements: Extraocular movements intact. Neck: Musculoskeletal: Neck supple. Cardiovascular: Rate and Rhythm: Normal rate. Pulmonary: Effort: Pulmonary effort is normal. No respiratory distress. Abdominal: General: Abdomen is flat. Palpations: Abdomen is soft. Tenderness: There is abdominal tenderness in the right lower quadrant. There is right CVA tenderness. There is no guarding. Hernia: No hernia is present. Skin: General: Skin is warm and dry. Neurological: Mental Status: She is alert. PROCEDURES (if any, during ED visit): Procedures Past Medical History Past Medical History: Diagnosis Date ADD (attention deficit disorder) Alopecia Alopecia areata Anxiety with depression Eczema Hypotension IBS (irritable bowel syndrome) Irregular menstrual cycle Mental disorder DEPRESSION AND ANGER ISSUE,ANXIETY Neoplasm of pituitary gland Preeclampsia Vasovagal syncope Past Surgical History Past Surgical History: Procedure Laterality Date CYSTO MAGGI LASER, RETRO, URETEROSCOPY, STENT (USUAL) Right 10/31/2019 Procedure: CYSTOSCOPY,RIGHT RETROGRADE PYELOGRAM, RIGHT URETEROSOCPY,; basket stone extraction RIGHT URETERAL STENT PLACEMENT; Surgeon: Yan Zuñiga MD; Location: [facility] Main OR; Service: Urology CYSTO RETRO STONE MANIPULATION STENT INSERTION Right 11/05/2019 Procedure: CYSTOSCOPY WITH RIGHT STENT REMOVAL; Surgeon: Yan Zuñiga MD; Location: [facility] Main OR; Service: Urology OTHER SURGICAL HISTORY wisdom teeth Family History Family History Problem Relation Age of Onset Hypertension Mother Hypertension Maternal Grandfather Social History Social History Socioeconomic History Marital status: Single Spouse name: Not on file Number of children: Not on file Years of education: Not on file Highest education level: Not on file Occupational History Not on file Social Needs Financial resource strain: Not on file Food insecurity Worry: Not on file Inability: Not on file Transportation needs Medical: Not on file Non-medical: Not on file Tobacco Use Smoking status: Never Smoker Smokeless tobacco: Never Used Substance and Sexual Activity Alcohol use: No Drug use: No Sexual activity: Yes Partners: Male Lifestyle Physical activity Days per week: Not on file Minutes per session: Not on file Stress: Not on file Relationships Social connections Talks on phone: Not on file Gets together: Not on file Attends faith service: Not on file Active member of club or organization: Not on file Attends meetings of clubs or organizations: Not on file Relationship status: Not on file Other Topics Concern Not on file Social History Narrative Not on file Allergies Allergies Allergen Reactions Cat Dander Shortness Of Breath Ciprofloxacin-Hydrocortisone Swelling Tree Nuts Shortness Of Breath All tree nuts Sulfasalazine Ciprofloxacin Rash and Hives Diphenhydramine Swelling, Hives and Rash Diphenhydramine Hcl Rash and Hives Hydrocortisone Rash and Hives Sulfa (Sulfonamide Antibiotics) Rash and Hives Sulfamethoxazole-Trimethoprim Rash and Hives Medications Previous Medications Medication Sig ARIPiprazole (ABILIFY) 5 MG tablet Take 5 mg by mouth nightly . ascorbate calcium (VITAMIN C ORAL) Take 1 tablet by mouth daily . benztropine (COGENTIN) 0.5 MG tablet Take 0.5 mg by mouth every evening . bethanechol (URECHOLINE) 10 MG tablet Take 1 (one) tablet (10 mg total) by mouth 3 (three) times a day . bran/gum/fib/daniel/psyl/kelp/pec (FIBER 6 ORAL) Take 3 tablets by mouth daily Benifiber chew . cholecalciferol, vitamin D3, (VITAMIN D3 ORAL) Take 1 tablet by mouth daily . metoclopramide (REGLAN) 5 MG tablet Take 1 (one) tablet (5 mg total) by mouth 3 (three) times a day as needed . metroNIDAZOLE (FLAGYL) 500 MG tablet Take 1 (one) tablet (500 mg total) by mouth 2 (two) times a day with meals for 7 days . naproxen (NAPROSYN) 250 MG tablet Take 250 mg by mouth 2 (two) times a day as needed . ondansetron (ZOFRAN-ODT) 4 MG disintegrating tablet Dissolve 1 (one) tablet (4 mg total) on top of tongue every 6 (six) hours as needed . vitamin with Ca-Iron-FA 27-1 mg Tab Take 1 tablet by mouth every morning . IMPRESSION: 1. Nephrolithiasis 2. Flank pain 3. Intractable vomiting with nausea, unspecified vomiting type Please note this patient was independently seen and examined by Dr. Whelan who determined final impression and plan of care. *Please note that portions of this note were created using [employer] voice recognition software.* Thanh Morris CNP 12/05/19 2246 Bed: 22 Expected date: Expected time: Means of arrival: Comments: Pt to US Pt is a good historian, recounts multiples episodes of N/V and other GI issues over the last 5 years. Pt has Hx of kidney stones. Pt sts this episode of N/V and R flank pain right where the 4-dot-6MM stone is. Symptoms include loss of appetite and weight loss. Pt is currently on ATB and pyridium for bacterial vaginosis and UTI, pt has been self-cathing for about 2 weeks and has done this in the past as well. Pt arrives w/ c/o Emesis, fatigue, flank pain for 1 week documented in this encounter pt dc'd home at this time, provided with copy of dc paperwork. pt provided with verbal education, verbalizes understanding, all questions answered. pt ambulatory upon dc with steady gait. ED PROVIDER NOTE [facility] EMERGENCY [facility]PART[facility] NAME: Luli Johnson AGE: 29 y.o. : 1990 VISIT DATE: 04/26/2020 CSN: [id number] PCP: Mercedez Cotto CNP Chief Complaint Patient presents with Abdominal Pain Pelvic Pain HPI Patient is a 29-year-old presents emergency department complaints of nausea vomiting as well as vaginal discomfort. She has a longstanding history of nausea vomiting as well as chronic abdominal discomfort. She states that today she flexes one of the bathroom and was concerned that there may be an area of the vaginal flap. She states that she just recently had a miscarriage last month. She has followed up with her grinder gear. She is concerned whether she may have either bladder or vaginal prolapse with the area that she was noticing. Again the nausea and vomiting that she is experiencing is typical of what she has had in the past she was just recently evaluated at [facility] emergency department for chest discomfort a couple days ago. Past Medical History: Diagnosis Date ADD (attention deficit disorder) Alopecia Alopecia areata Anxiety with depression Chronic gastritis Eczema Hypotension IBS (irritable bowel syndrome) Irregular menstrual cycle Kidney stone Mental disorder DEPRESSION AND ANGER ISSUE,ANXIETY Neoplasm of pituitary gland Preeclampsia Vasovagal syncope Past Surgical History: Procedure Laterality Date COLONOSCOPY CYSTO MAGGI LASER, RETRO, URETEROSCOPY, STENT (USUAL) Right 10/31/2019 Procedure: CYSTOSCOPY,RIGHT RETROGRADE PYELOGRAM, RIGHT URETEROSOCPY,; basket stone extraction RIGHT URETERAL STENT PLACEMENT; Surgeon: Yan Zuñiga MD; Location: [facility] Main OR; Service: Urology CYSTO RETRO STONE MANIPULATION STENT INSERTION Right 11/05/2019 Procedure: CYSTOSCOPY WITH RIGHT STENT REMOVAL; Surgeon: Yan Zuñiga MD; Location: [facility] Main OR; Service: Urology KIDNEY STONE SURGERY 10/31/2019 OTHER SURGICAL HISTORY wisdom teeth Family History Problem Relation Age of Onset Hypertension Mother Hypertension Maternal Grandfather Social History Socioeconomic History Marital status: Single Spouse name: Not on file Number of children: Not on file Years of education: Not on file Highest education level: Not on file Occupational History Not on file Social Needs Financial resource strain: Not on file Food insecurity Worry: Not on file Inability: Not on file Transportation needs Medical: Not on file Non-medical: Not on file Tobacco Use Smoking status: Never Smoker Smokeless tobacco: Never Used Substance and Sexual Activity Alcohol use: No Drug use: No Sexual activity: Yes Partners: Male Lifestyle Physical activity Days per week: Not on file Minutes per session: Not on file Stress: Not on file Relationships Social connections Talks on phone: Not on file Gets together: Not on file Attends faith service: Not on file Active member of club or organization: Not on file Attends meetings of clubs or organizations: Not on file Relationship status: Not on file Other Topics Concern Not on file Social History Narrative Not on file Previous Medications Medication Sig ARIPiprazole (ABILIFY) 5 MG tablet Take 5 mg by mouth nightly . ascorbate calcium (VITAMIN C ORAL) Take 1 tablet by mouth daily . benztropine (COGENTIN) 0.5 MG tablet Take 0.5 mg by mouth every evening . bisacodyL (FLEET) 10 mg/30 mL Enem Insert 30 mL (10 mg total) into the rectum daily as needed (Constipation) . cholecalciferol, vitamin D3, (VITAMIN D3 ORAL) Take 1 tablet by mouth daily . famotidine (PEPCID) 20 MG tablet Take 20 mg by mouth daily as needed . fluconazole (Diflucan) 150 MG tablet Take 1 (one) tablet (150 mg total) by mouth once as needed (may repeat in 3 days) . fluconazole (Diflucan) 150 MG tablet Take 1 (one) tablet (150 mg total) by mouth once as needed (may repeat in 3 days) . metoclopramide (REGLAN) 5 MG tablet Take 1 (one) tablet (5 mg total) by mouth 3 (three) times a day as needed (nausea and vomiting) . nyelxkxp-shix-PI-calcium-mins 9 mg iron-400 mcg Tab Take 1 tablet by mouth daily . nystatin (MYCOSTATIN) ointment Apply topically 2 (two) times a day . ondansetron (ZOFRAN-ODT) 4 MG disintegrating tablet Dissolve 1 (one) tablet (4 mg total) on top of tongue every 8 (eight) hours as needed for nausea . vitamin with Ca-Iron-FA 27-1 mg Tab Take 1 tablet by mouth every morning . Allergies Allergen Reactions Cat Dander Shortness Of Breath Ciprofloxacin-Hydrocortisone Swelling Tree Nuts Shortness Of Breath All tree nuts Sulfasalazine Ciprofloxacin Rash and Hives Diphenhydramine Swelling, Hives and Rash Diphenhydramine Hcl Rash and Hives Hydrocortisone Rash and Hives Sulfa (Sulfonamide Antibiotics) Rash and Hives Sulfamethoxazole-Trimethoprim Rash and Hives Review of Systems Review of Systems Constitutional: No unexpected weight change HENT: No drooling Eyes: No discharge Respiratory: No stridor Endocrine: No polyphagia Skin: No color changes Neurologic: No facial asymmetry Psychiatry: No self harm Hematologic/Lymphatic: No new easy bruising Allergic/Immunilogic: No urticaria Patient Vitals for the past 24 hrs: BP Temp Pulse Resp SpO2 Height Weight 04/26/202010 126/83 98.4 F (36.9 C) (!) 124 18 100 % 04/26/202007 5' 56.3 kg (124 lb 1.6 oz) Physical Exam Vitals signs and nursing note reviewed. Exam conducted with a hair boiler operator present. Constitutional: General: She is not in acute distress. Appearance: She is well-developed. HENT: Head: Normocephalic and atraumatic. Nose: No rhinorrhea. Eyes: General: Lids are normal. Conjunctiva/sclera: Conjunctivae normal. Neck: Musculoskeletal: Full passive range of motion without pain and normal range of motion. Trachea: Trachea normal. Cardiovascular: Rate and Rhythm: Normal rate and regular rhythm. Pulmonary: Effort: Pulmonary effort is normal. Abdominal: General: Abdomen is flat. Tenderness: There is no guarding or rebound. Genitourinary: General: Normal vulva. Exam position: Supine. Comments: Area of tissue to noted area. This is not vaginal prolapse. There was no signs of bladder prolapse on examination there is no erythema there is no discharge there is no signs of bleeding. Musculoskeletal: Normal range of motion. Skin: General: Skin is dry. Findings: No rash. Neurological: Mental Status: She is alert and oriented to person, place, and time. Sensory: No sensory deficit. Motor: No weakness. Psychiatric: Mood and Affect: Mood normal. Laboratory & Radiographic Imaging (if done): No results found for this visit on 04/26/20. No orders to display Procedures MDM In the patient's ED course I reviewed her last several ED visits. I do not feel she requires acute blood work at this time. She was given antiemetics here in the emergency department. Her abdominal exam is benign nonsurgical. Again pelvic exam did show tissue in the lower vaginal vault that was not signs of prolapse. She does state that she has enough of her antiemetics for home as well as her Toradol. The majority of her symptoms may be due to her bearing down with her chronic bowel related issues. At this time she will be dispositioned home in stable condition with outpatient follow-up. . Clinical Impression: 1. Nausea 2. Vaginal pain ED Disposition ED Disposition Condition Comment Discharge Stable Luli Johnson discharged to home/self care in stable condition. Follow-up Information 1. Mercedez Cotto CNP. Specialties: Internal Medicine, Nurse Practitioner [address] [facility] [id number] Contact information for after-discharge care Follow-up information has not been specified. Ankur Pichardo MD 04/26/202127 Pt actively vomiting small amount of brown emesis in triage room. Pt arrives in triage via wheelchair w/ mask in place. Pt reports she was instructed by urologist to come in. 10/10 bladder pressure and states vagnial flap and balloon protruding. documented in this encounter Pt had her period explained to patient that blood comes from vagina and urine from bladder. Pt given diagram before discharge for reassurance ED PROVIDER NOTE [facility] NAME: Luli Johnson AGE: 29 y.o. : 1990 VISIT DATE: 11/07/2019 CSN: [id number] PCP: Mercedez Cotto CNP Chief Complaint Patient presents with Vaginal Bleeding Patient is a 29-year-old female who presents to the emergency department for evaluation of vaginal bleeding. The patient had a Reaves catheter placed yesterday by urology due to having urinary retention after having stent removal performed. Patient says that this morning she started to have her period and was concerned because the blood was not going into the Reaves catheter. Patient says that her last menstrual cycle was October 06 so she is due to have her menstrual cycle now. Patient says that it is the same of all her menstrual cycles. Patient says that she thought that the blood would go into the catheter so she worried and came to the emergency department. Patient told me did not understand the anatomy of the human body prior to coming to the emergency department however was explained to her by the nursing staff prior to me evaluating her. On my evaluation the patient is relieved to know that it is normal. Patient denies having any abdominal pain. No fevers, chills. No hematuria. No lightheadedness, nausea, vomiting. Patient says she had a negative test 3 days ago and 4 days ago. Patient says she is not concerned for as she has not been sexually active for several months. Patient has no other concerns today. She does have follow-up with Dr. Zuñiga in 2 days to have the catheter removed. Past Medical History: Diagnosis Date ADD (attention deficit disorder) Alopecia Alopecia areata Anxiety with depression Eczema Hypotension IBS (irritable bowel syndrome) Irregular menstrual cycle Mental disorder DEPRESSION AND ANGER ISSUE,ANXIETY Neoplasm of pituitary gland Preeclampsia Vasovagal syncope Past Surgical History: Procedure Laterality Date CYSTO MAGGI LASER, RETRO, URETEROSCOPY, STENT (USUAL) Right 10/31/2019 Procedure: CYSTOSCOPY,RIGHT RETROGRADE PYELOGRAM, RIGHT URETEROSOCPY,; basket stone extraction RIGHT URETERAL STENT PLACEMENT; Surgeon: Yan Zuñiga MD; Location: [facility] Main OR; Service: Urology CYSTO RETRO STONE MANIPULATION STENT INSERTION Right 11/05/2019 Procedure: CYSTOSCOPY WITH RIGHT STENT REMOVAL; Surgeon: Yan Zuñiga MD; Location: [facility] Main OR; Service: Urology OTHER SURGICAL HISTORY wisdom teeth Family History Problem Relation Age of Onset Hypertension Mother Hypertension Maternal Grandfather Social History Socioeconomic History Marital status: Single Spouse name: Not on file Number of children: Not on file Years of education: Not on file Highest education level: Not on file Occupational History Not on file Social Needs Financial resource strain: Not on file Food insecurity Worry: Not on file Inability: Not on file Transportation needs Medical: Not on file Non-medical: Not on file Tobacco Use Smoking status: Never Smoker Smokeless tobacco: Never Used Substance and Sexual Activity Alcohol use: No Drug use: No Sexual activity: Yes Partners: Male Lifestyle Physical activity Days per week: Not on file Minutes per session: Not on file Stress: Not on file Relationships Social connections Talks on phone: Not on file Gets together: Not on file Attends faith service: Not on file Active member of club or organization: Not on file Attends meetings of clubs or organizations: Not on file Relationship status: Not on file Other Topics Concern Not on file Social History Narrative Not on file Previous Medications Medication Sig ARIPiprazole (ABILIFY) 5 MG tablet Take 5 mg by mouth nightly . ascorbate calcium (VITAMIN C ORAL) Take 1 tablet by mouth daily . benztropine (COGENTIN) 0.5 MG tablet Take 0.5 mg by mouth every evening . bran/gum/fib/daniel/psyl/kelp/pec (FIBER 6 ORAL) Take 3 tablets by mouth daily Benifiber chew . cholecalciferol, vitamin D3, (VITAMIN D3 ORAL) Take 1 tablet by mouth daily . fluconazole (Diflucan) 150 MG tablet Take 1 (one) tablet (150 mg total) by mouth once as needed (may repeat in 3 days) . [] magnesium citrate solution Take 296 mL by mouth once for 1 dose . naproxen (NAPROSYN) 250 MG tablet Take 250 mg by mouth 2 (two) times a day as needed . ondansetron (ZOFRAN-ODT) 4 MG disintegrating tablet Dissolve 1 (one) tablet (4 mg total) on top of tongue every 6 (six) hours as needed . vitamin with Ca-Iron-FA 27-1 mg Tab Take 1 tablet by mouth every morning . Allergies Allergen Reactions Cat Dander Shortness Of Breath Ciprofloxacin-Hydrocortisone Swelling Tree Nuts Shortness Of Breath All tree nuts Sulfasalazine Ciprofloxacin Rash and Hives Diphenhydramine Swelling, Hives and Rash Diphenhydramine Hcl Rash and Hives Hydrocortisone Rash and Hives Sulfa (Sulfonamide Antibiotics) Rash and Hives Sulfamethoxazole-Trimethoprim Rash and Hives Review of Systems Constitutional: Negative for fever. HENT: Negative for congestion. Eyes: Negative for visual disturbance. Respiratory: Negative for shortness of breath. Cardiovascular: Negative for chest pain. Gastrointestinal: Negative for abdominal pain. Genitourinary: Negative for dysuria. Musculoskeletal: Negative for myalgias. Skin: Negative for wound. Neurological: Negative for light-headedness. Psychiatric/Behavioral: The patient is not nervous/anxious. Patient Vitals for the past 24 hrs: BP Temp Pulse Resp SpO2 Height Weight 11/07/19 0735 122/80 98.4 F (36.9 C) 95 18 98 % 5' 58.5 kg (129 lb) Physical Exam Constitutional: Appearance: Normal appearance. HENT: Head: Normocephalic and atraumatic. Right Ear: External ear normal. Left Ear: External ear normal. Nose: Nose normal. Mouth/Throat: Pharynx: Oropharynx is clear. Eyes: Conjunctiva/sclera: Conjunctivae normal. Neck: Musculoskeletal: Neck supple. Cardiovascular: Rate and Rhythm: Normal rate and regular rhythm. Pulses: Normal pulses. Pulmonary: Effort: Pulmonary effort is normal. Abdominal: General: Abdomen is flat. Palpations: Abdomen is soft. Tenderness: There is no abdominal tenderness. Genitourinary: Comments: Reaves catheter leg bag with yellow urine. No gross blood. Musculoskeletal: Normal range of motion. Skin: General: Skin is warm. Capillary Refill: Capillary refill takes less than 2 seconds. Neurological: General: No focal deficit present. Mental Status: She is alert and oriented to person, place, and time. Psychiatric: Mood and Affect: Mood normal. Behavior: Behavior normal. Laboratory & Radiographic Imaging (if done): No results found for this visit on 11/07/19. No orders to display Procedures MDM Number of Diagnoses or Management Options Unspecified condition associated with female genital organs and menstrual cycle: Diagnosis management comments: Patient is a 29-year-old female who presented to the emergency department for concerns about her menstrual cycle. Patient had a Reaves catheter placed yesterday due to urinary retention following stent removal. This morning the patient started her menstrual cycle and she was concerned because the blood was not going into the catheter. Patient was not aware of the anatomy of the female body and that it is normal that the bleeding would not go into the catheter. This was explained to the patient and she was very relieved. Patient had a negative test 3 days ago and has not been sexually active for several months so she is not concerned for . She is not having any pain. She presented hemodynamically stable. She appears well nontoxic. Normal physical exam. Patient was educated on the anatomy of the body and that everything was normal. Patient was happy and relieved. She is discharged home in stable condition. All of the patient's questions were answered. She does have follow-up with Dr. Zuñiga in 2 days for catheter removal. . Clinical Impression: 1. Unspecified condition associated with female genital organs and menstrual cycle ED Disposition ED Disposition Condition Comment Discharge Stable Luli Johnson discharged to home/self care in stable condition. Follow-up Information 1. Yan Zuñiga MD. Specialties: Urology, Urologic Surgery [address] [address] 2. [facility] Emergency Department. Specialty: Emergency Medicine Why: If symptoms worsen [address] [address] Contact information for after-discharge care Follow-up information has not been specified. Alhaji Samson PA-C 11/07/19 0825 Bed: 54 Expected date: Expected time: Means of arrival: Comments: M806/ vaginal bleeding/ [place] Arrives to ED per medic for eval of vag bleed, it is time for period and concerned that having period and having cath in. Denies any other complaints documented in this encounter ED PROVIDER NOTE [facility] NAME: Luli Johnson AGE: 29 y.o. : 1990 VISIT DATE: 05/13/2020 CSN: [id number] PCP: Mercedez Cotto CNP Chief Complaint Patient presents with Abdominal Pain Nausea Emesis Patient is a 29-year-old female non-smoker with a PMH as of below who presents to the ED with chief complaint of abdominal pain, nausea, emesis. Patient reports over the past 24 hours she has had atraumatic generalized upper abdominal pain worse on right versus left that wraps around her side to right flank. She has had vomiting and has been unable to keep down any liquids or her medications including Zofran and Toradol. She states she is taking p.o. antacids or vomiting these up as well. She even tried Phenergan suppository with improvement of nausea. Reports the symptoms are similar to episode she has had in the past. Pain is moderate, sharp, worse palpation and with vomiting. No change in bowel movements. No urinary complaints. Per medical records patient was following with GI through [facility] however she is in the process of obtaining a new GI specialist. States she is scheduled for HIDA scan at the end of May. She was referred to [facility] GI specialist however the location was out at [facility] and her mother will not drive her that far. She is requesting referral to [facility] GI specialist closer to [place]. Past Medical History: Diagnosis Date ADD (attention deficit disorder) Alopecia Alopecia areata Anxiety with depression Chronic gastritis Eczema Hypotension IBS (irritable bowel syndrome) Irregular menstrual cycle Kidney stone Mental disorder DEPRESSION AND ANGER ISSUE,ANXIETY Neoplasm of pituitary gland Preeclampsia Vasovagal syncope Past Surgical History: Procedure Laterality Date COLONOSCOPY CYSTO MAGGI LASER, RETRO, URETEROSCOPY, STENT (USUAL) Right 10/31/2019 Procedure: CYSTOSCOPY,RIGHT RETROGRADE PYELOGRAM, RIGHT URETEROSOCPY,; basket stone extraction RIGHT URETERAL STENT PLACEMENT; Surgeon: Yan Zuñiga MD; Location: [facility] Main OR; Service: Urology CYSTO RETRO STONE MANIPULATION STENT INSERTION Right 11/05/2019 Procedure: CYSTOSCOPY WITH RIGHT STENT REMOVAL; Surgeon: Yan Zuñiga MD; Location: [facility] Main OR; Service: Urology KIDNEY STONE SURGERY 10/31/2019 OTHER SURGICAL HISTORY wisdom teeth Family History Problem Relation Age of Onset Hypertension Mother Hypertension Maternal Grandfather Social History Socioeconomic History Marital status: Single Spouse name: Not on file Number of children: Not on file Years of education: Not on file Highest education level: Not on file Occupational History Not on file Social Needs Financial resource strain: Not on file Food insecurity Worry: Not on file Inability: Not on file Transportation needs Medical: Not on file Non-medical: Not on file Tobacco Use Smoking status: Never Smoker Smokeless tobacco: Never Used Substance and Sexual Activity Alcohol use: No Drug use: No Sexual activity: Yes Partners: Male Lifestyle Physical activity Days per week: Not on file Minutes per session: Not on file Stress: Not on file Relationships Social connections Talks on phone: Not on file Gets together: Not on file Attends faith service: Not on file Active member of club or organization: Not on file Attends meetings of clubs or organizations: Not on file Relationship status: Not on file Other Topics Concern Not on file Social History Narrative Not on file Previous Medications Medication Sig ARIPiprazole (ABILIFY) 5 MG tablet Take 5 mg by mouth nightly . ascorbate calcium (VITAMIN C ORAL) Take 1 tablet by mouth daily . benztropine (COGENTIN) 0.5 MG tablet Take 0.5 mg by mouth every evening . bisacodyL (FLEET) 10 mg/30 mL Enem Insert 30 mL (10 mg total) into the rectum daily as needed (Constipation) . cholecalciferol, vitamin D3, (VITAMIN D3 ORAL) Take 1 tablet by mouth daily . famotidine (PEPCID) 20 MG tablet Take 20 mg by mouth daily as needed . fluconazole (Diflucan) 150 MG tablet Take 1 (one) tablet (150 mg total) by mouth once as needed (may repeat in 3 days) . fluconazole (Diflucan) 150 MG tablet Take 1 (one) tablet (150 mg total) by mouth once as needed (may repeat in 3 days) . metoclopramide (REGLAN) 5 MG tablet Take 1 (one) tablet (5 mg total) by mouth 3 (three) times a day as needed (nausea and vomiting) . kirrjgck-pvbv-TV-calcium-mins 9 mg iron-400 mcg Tab Take 1 tablet by mouth daily . nystatin (MYCOSTATIN) ointment Apply topically 2 (two) times a day . ondansetron (ZOFRAN-ODT) 4 MG disintegrating tablet Dissolve 1 (one) tablet (4 mg total) on top of tongue every 8 (eight) hours as needed for nausea . vitamin with Ca-Iron-FA 27-1 mg Tab Take 1 tablet by mouth every morning . Allergies Allergen Reactions Cat Dander Shortness Of Breath Ciprofloxacin-Hydrocortisone Swelling Tree Nuts Shortness Of Breath All tree nuts Sulfasalazine Ciprofloxacin Rash and Hives Diphenhydramine Swelling, Hives and Rash Diphenhydramine Hcl Rash and Hives Hydrocortisone Rash and Hives Sulfa (Sulfonamide Antibiotics) Rash and Hives Sulfamethoxazole-Trimethoprim Rash and Hives Review of Systems Constitutional: Negative for chills, diaphoresis and fever. HENT: Negative for sore throat. Eyes: Negative for visual disturbance. Respiratory: Negative for shortness of breath. Cardiovascular: Negative for chest pain. Gastrointestinal: Positive for abdominal pain, nausea and vomiting. Negative for constipation, diarrhea and rectal pain. Genitourinary: Positive for flank pain. Negative for dysuria and hematuria. Musculoskeletal: Negative for neck pain. Skin: Negative for rash. Neurological: Negative for dizziness and syncope. Psychiatric/Behavioral: Negative for confusion. All other systems reviewed and are negative. Patient Vitals for the past 24 hrs: BP Temp Temp src Pulse Resp SpO2 Height Weight 05/13/20 0116 110/80 92 100 % 05/13/20 0020 (!) 151/100 98.4 F (36.9 C) Oral (!) 120 18 100 % 5' 55.7 kg (122 lb 14.4 oz) Physical Exam Vitals signs and nursing note reviewed. Constitutional: General: She is not in acute distress. Appearance: Normal appearance. She is well-developed. She is not diaphoretic. HENT: Head: Normocephalic and atraumatic. Right Ear: External ear normal. Left Ear: External ear normal. Eyes: General: No scleral icterus. Right eye: No discharge. Left eye: No discharge. Conjunctiva/sclera: Conjunctivae normal. Neck: Musculoskeletal: Normal range of motion. Cardiovascular: Rate and Rhythm: Normal rate and regular rhythm. Heart sounds: Normal heart sounds. Pulmonary: Effort: Pulmonary effort is normal. No respiratory distress. Breath sounds: Normal breath sounds. No wheezing. Abdominal: General: There is no distension. Palpations: Abdomen is soft. Abdomen is not rigid. Tenderness: There is abdominal tenderness in the right upper quadrant, epigastric area and left upper quadrant. There is no guarding. Skin: General: Skin is warm and dry. Findings: No erythema or rash. Neurological: Mental Status: She is alert and oriented to person, place, and time. She is not disoriented. GCS: GCS eye subscore is 4. GCS verbal subscore is 5. GCS motor subscore is 6. Psychiatric: Speech: Speech normal. Behavior: Behavior normal. Behavior is cooperative. Laboratory & Radiographic Imaging (if done): Results for orders placed or performed during the hospital encounter of 05/13/20 CBC Auto Differential Result Value Ref Range WBC 5.62 4.50 - 11.00 K/mcL RBC 4.38 4.00 - 5.20 M/mcL Hemoglobin 12.0 12.0 - 16.0 g/dL Hematocrit 37.1 36.0 - 46.0 % MCV 84.7 80.0 - 100.0 fL MCH 27.4 26.0 - 34.0 pg MCHC 32.3 31.0 - 37.0 g/dL Platelets 247 150 - 400 K/mcL RDW - CV 13.2 11.6 - 14.8 % MPV 9.4 9.4 - 12.4 fL Neutrophils 63.6 % Lymphocytes 27.2 % Monocytes 6.9 % Eosinophils 1.6 % Basophils 0.5 % IG Percent 0.20 % Neutrophils Abs 3.57 1.70 - 7.00 K/mcL Lymphocytes Abs 1.53 0.90 - 4.00 K/mcL Monocytes Abs 0.39 0.30 - 0.90 K/mcL Eosinophils Abs 0.09 0.00 - 0.50 K/mcL Basophils Abs 0.03 0.00 - 0.30 K/mcL IG Absolute 0.01 0.00 - 0.30 K/mcL Nucleated RBC 0.0 % Nucleated RBC Abs 0.00 0.00 - 0.00 K/mcL No orders to display Procedures MDM Number of Diagnoses or Management Options Generalized abdominal pain Non-intractable vomiting with nausea, unspecified vomiting type Diagnosis management comments: Patient presented to the ED with chief complaint of abdominal pain, nausea, emesis. HPI as above. Patient also seen by Dr. Chan today. Medical records were reviewed. Patient is in the process of obtaining a new GI specialist. Last CT scan appears to be April 11, 2020 and was reassuring. Patient has had multiple CT scans completed of abdomen for similar symptoms in the past. Patient was admitted to [facility] observation unit May 02 for abdominal pain, nausea, and vomiting. Nonacute abdominal exam here. Patient was requesting pain medication. When asked what has helped in the past she states morphine sometimes helps, however I do not know if that will be strong enough today. Patient received IV fluids, GI cocktail, Reglan, and droperidol for her symptoms. CBC shows no leukocytosis or anemia. Additional labs in process. No indication for emergent imaging of abdomen at this time. Disposition pending symptom control and lab results. May see attending physician's addendum for final disposition. . Clinical Impression: 1. Non-intractable vomiting with nausea, unspecified vomiting type 2. Generalized abdominal pain ED Disposition None Follow-up Information 1. Mercedez Cotto, LAWANDA. Specialties: Internal Medicine, Nurse Practitioner Why: For follow up [address] [facility] [id number] 2. [facility]. Why: For follow up [address] [facility] [phone] Contact information for after-discharge care Follow-up information has not been specified. Guerline Banks PA-C 05/13/20 025 This RN attempted x [address] peripheral IV without success. Pt educated on need for urine sample and verbalizes understanding. Pt ambulates through triage with mask in place CC N/V for 24hrs. RUQ abd pain wrapping around to R flank. Denies dysuria. Pt last took ibuprofen, unknown dose, around 2hrs ago; zofran last taken at that time too. Pt sts she tested COVID+ on Apr 06 at [facility] documented in this encounter PCP - Mercedez Cotto, GARAGE [employer]ER Chief Complaint Patient presents with vaginal burning HPI 29yo female with PMH listed below, is here for vaginal complaint. Patient with history of kidney stone removed by Dr. Zuñiga on 10/31/2019. Had a stent placed at that time. Stent was then removed 11/05/2019. Patient ended up back in the urologist office due to urinary retention, had a Reaves catheter placed on 11/09/2019. She had then returned 11/11/2019 to have a Reaves catheter changed. She returned yesterday due to stating that she is having bubbles in her catheter bag. She also indicated yesterday that she had discharge on her labia and was concerned. At that time they noted that there is soap residue around the labial area. There is no concerns for yeast infection. The labia was not swollen yesterday. Urinalysis showed UTI. She was placed on Keflex. States she is taking the Keflex as prescribed. She had contacted the urologist office today and spoke with Dr. Irvin. Dr. Irvin did phone and fluconazole for the patient. States her mom is currently taken of this medication. Per notes from Dr. Irvin, plan for Tuesday for voiding trial. Apparently there was also some discussion that she may need a suprapubic catheter. Patient is reporting vaginal itching. Denies any drainage. States she feels like her labia is swollen. States she cannot stop itching the area. Patient states she tried Monistat x2 today with some minor relief. Is taking Keflex 3 times a day as prescribed. Denies any bowel complaints. No pelvic pain, dental pain, back pain, chest pain, difficulty breathing. No N/V/D/F/C. In this time of COVID 19 pandemic, this FINANCE LEAD did wear a surgical mask and gloves throughout patient's ED visit for precaution. Review of Systems Constitutional: No fevers. No unintentional weight change. Skin: No rash or color changes Eyes: No discharge ENMT: No drooling Respiratory: No stridor or hemoptysis Genitourinary: No obstructive symptoms or polyuria Endocrine: No polyphagia Neurologic: No new numbness or new face asymmetry. Psychiatric: No hallucinations Hematologic/Lymphatic: No abnormal or easy bruising Allergic/Immunologic: No hives Other pertinent positives and negatives in HPI Past Medical History Past Medical History: Diagnosis Date ADD (attention deficit disorder) Alopecia Alopecia areata Anxiety with depression Eczema Hypotension IBS (irritable bowel syndrome) Irregular menstrual cycle Mental disorder DEPRESSION AND ANGER ISSUE,ANXIETY Neoplasm of pituitary gland Preeclampsia Vasovagal syncope Past Surgical History Past Surgical History: Procedure Laterality Date CYSTO MAGGI LASER, RETRO, URETEROSCOPY, STENT (USUAL) Right 10/31/2019 Procedure: CYSTOSCOPY,RIGHT RETROGRADE PYELOGRAM, RIGHT URETEROSOCPY,; basket stone extraction RIGHT URETERAL STENT PLACEMENT; Surgeon: Yan Zuñiga MD; Location: [facility] Main OR; Service: Urology CYSTO RETRO STONE MANIPULATION STENT INSERTION Right 11/05/2019 Procedure: CYSTOSCOPY WITH RIGHT STENT REMOVAL; Surgeon: Yan Zuñiga MD; Location: [facility] Main OR; Service: Urology OTHER SURGICAL HISTORY wisdom teeth Family History Family History Problem Relation Age of Onset Hypertension Mother Hypertension Maternal Grandfather Social History Social History Socioeconomic History Marital status: Single Spouse name: Not on file Number of children: Not on file Years of education: Not on file Highest education level: Not on file Occupational History Not on file Social Needs Financial resource strain: Not on file Food insecurity Worry: Not on file Inability: Not on file Transportation needs Medical: Not on file Non-medical: Not on file Tobacco Use Smoking status: Never Smoker Smokeless tobacco: Never Used Substance and Sexual Activity Alcohol use: No Drug use: No Sexual activity: Yes Partners: Male Lifestyle Physical activity Days per week: Not on file Minutes per session: Not on file Stress: Not on file Relationships Social connections Talks on phone: Not on file Gets together: Not on file Attends faith service: Not on file Active member of club or organization: Not on file Attends meetings of clubs or organizations: Not on file Relationship status: Not on file Other Topics Concern Not on file Social History Narrative Not on file Allergies Allergies Allergen Reactions Cat Dander Shortness Of Breath Ciprofloxacin-Hydrocortisone Swelling Tree Nuts Shortness Of Breath All tree nuts Sulfasalazine Ciprofloxacin Rash and Hives Diphenhydramine Swelling, Hives and Rash Diphenhydramine Hcl Rash and Hives Hydrocortisone Rash and Hives Sulfa (Sulfonamide Antibiotics) Rash and Hives Sulfamethoxazole-Trimethoprim Rash and Hives Medications Luli Johnson Home Medication Instructions Prior to Surgery SARITHA:[id number] Printed on:11/14/192017 Medication Information Take last dose on Take the morning of surgery Comment(s) ARIPiprazole (ABILIFY) 5 MG tablet Take 5 mg by mouth nightly . ascorbate calcium (VITAMIN C ORAL) Take 1 tablet by mouth daily . benztropine (COGENTIN) 0.5 MG tablet Take 0.5 mg by mouth every evening . bran/gum/fib/daniel/psyl/kelp/pec (FIBER 6 ORAL) Take 3 tablets by mouth daily Benifiber chew . cephALEXin (KEFLEX) 500 MG capsule Take 1 (one) capsule (500 mg total) by mouth 4 (four) times a day for 7 days . cholecalciferol, vitamin D3, (VITAMIN D3 ORAL) Take 1 tablet by mouth daily . fluconazole (Diflucan) 150 MG tablet Take 1 (one) tablet (150 mg total) by mouth once as needed (may repeat in 3 days) . naproxen (NAPROSYN) 250 MG tablet Take 250 mg by mouth 2 (two) times a day as needed . ondansetron (ZOFRAN-ODT) 4 MG disintegrating tablet Dissolve 1 (one) tablet (4 mg total) on top of tongue every 6 (six) hours as needed . vitamin with Ca-Iron-FA 27-1 mg Tab Take 1 tablet by mouth every morning . Physical Exam Initial Vital Signs BP 122/85 (BP Location: Right arm, Patient Position: Sitting) Pulse 90 Temp 98 F (36.7 C) (Oral) Resp 16 Ht 5' Wt 56.6 kg (124 lb 11.2 oz) SpO2 99% BMI 24.35 kg/m Vital Signs During ED Visit (as charted by nursing) Patient Vitals for the past 24 hrs: BP Temp Temp src Pulse Resp SpO2 Height Weight 11/14/191925 122/85 98 F (36.7 C) Oral 90 16 99 % 5' 56.6 kg (124 lb 11.2 oz)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 understanding of my interpretation. LAB: I have personally reviewed the patient's lab results below. Creatinine Date Value Ref Range Status 09/30/2019 0.61 0.40 - 1.10 mg/dL Final 09/27/2013 0.60 0.40 - 1.10 mg/dL Final Hemoglobin Date Value Ref Range Status 09/30/2019 12.6 12.0 - 16.0 g/dL Final 03/15/2019 12.9 12.0 - 16.0 g/dL Final 03/10/2019 12.0 12.0 - 16.0 g/dL Final 09/27/2013 14.4 12.0 - 16.0 g/dL Final 08/18/2013 13.5 12.0 - 16.0 g/dL Final 12/29/2011 15.2 12.0 - 16.0 g/dL Final POC: Urine dipstick shows positive for red blood cells. PVR by bladder scan- 14 ml ASSESSMENT / PLAN: 1. Right 5 mm nonobstructing kidney stone 2. Microhematuria -We reviewed her CT scan images. She does have a kidney stone on the right side. We discussed indications for surgery. I had a long discussion with her that her flank pain may not be due to the stone as the stone is non-obstructing. We discussed that she may have continued pain after the procedure. URS: We discussed the risks benefits and alternatives for treatment of the stone. We discussed the options of watchful waiting versus ureteroscopy and laser lithotripsy versus shock wave lithotripsy. The patient preferred ureteroscopy and laser lithotripsy with possible stent insertion. She was informed the risks of bleeding, pain and infection as well as ureteral injury. She was explained the inherent risks of anesthesia. She was told that if a ureteral stent is placed, it would likely result in urinary frequency, urgency, and dysuria, as well as flank pain with voiding. The stent would be removed at a later date as an office based procedure. The patient was given the opportunity to ask any questions and after answering her questions and an informed consent was obtained. - Urine for culture - Will plan on cysto at time of surgery Yan Zuñiga documented in this encounter [facility] History and Physical Note 11/01/19 Luli Johnson 1990 [id number] Assessment/Plan: Luli Johnson is a 28 y.o. female with a history of Nephrolithiasis who follows with Dr. Zuñiga (urology) who underwent cystoscopy and R ureteral stent placement on 10/31/19. Patient was discharged and returned to [facility] Observation 11/01/2019 with reports of hematuria, abdominal pain and dizziness. Labs on admit: Hgb 11. UA with large amount of blood, WBC 95, small LE. Patient admitted to [facility] for further medical management. 1. Nephrolithiasis: per history, patient follows with Dr. Zuñiga and saw him 10/25/19 for ongoing R flank pain and removal of R kidney stone. S/p cystoscopy with Dr. Zuñiga 10/31/19 and presenting as above. Planned to have stent removed in a week. Hgb stable. UA with large amount blood, WBC 95, small LE. Renal stone chem pending. IVF. Flomax. Pain control. Dr. Zuñiga (urology) consulted. 2. Abdominal Pain: suspect in setting above. Abdomen benign. Narx reviewed 11/01/19. Supportive care. Monitor. 3. Abnormal UA: UA with large amount blood, WBC 95, and small LE. Patient reported some dysuria and frequency. Afebrile, no leukocytosis. Urine culture pending. Per Dr. Jimenez was to complete 7 day course of Keflex. Continued on admit. 4. Dizziness: per patient and noted hx of vasovagal syncope. Patient reported first big surgery/procedure and very anxious regarding the hematuria and pain. Suspect secondary to this. Hgb stable. IVF. Monitor. 5. Candidal Vulvovaginitis: patient with hx of recurrent. Reported vaginal itching and white discharge. Took 1 dose diflucan 10/31/19. Monitor. 6. Anxiety/Depression: per history, continued Abilify and cogentin. 7. DVT prophylaxis: Low risk, [place]on 3. Current Living Situation: home Estimated discharge date: 1-2 days Chief Complaint: Hematuria and abdominal pain History of Present Illness: Luli Johnson is a 28 y.o. female with a history of Nephrolithiasis who follows with Dr. Zuñiga (urology) who underwent cystoscopy and R ureteral stent placement on 10/31/19. Patient was discharged and returned to [facility] Observation 11/01/2019 with reports of hematuria, abdominal pain and dizziness. Labs on admit: Hgb 11. UA with large amount of blood, WBC 95, small LE. Patient admitted to Obs for further medical management. Patient follows with Dr. Zuñiga and saw him back 10/25/19 for ongoing R flank pain and scheduled to have cystoscopy yesterday for CT findings of R renal stone. Patient had procedure 10/31/19 without any complications and was discharge home. Patient stated that she went home following procedure and was very shaky and felt like her BP dropped and stated she stood up but the collapsed on her butt and she feels she lost consciousness for ~5min and called squad. She stated that she was taken to [facility] and had CT and CBC and everything looked normal and stent was in place and was suppose to follow up for stent removal in about a week with Dr. Zuñiga. She had red blood thought it was suppose to be pink only from what the discharge nurse told her so she became concerned. Also reported vaginal itch and took diflucan yesterday. Reported frequency and some burning with urination. Reported having back pain when urinating. Had some nausea and vomiting. Denied any fever/chills. Patient was suppose to continue Keflex for [address] Zuñiga so continued in addition to flomax which she reported she has not started yet. Patient was TTP to R flank and abdominal area along with suprapubic area. Patient without chest pain, dyspnea, diarrhea, cough or other complaints. Patient is new to me 11/01/19. I have reviewed chart for all vitals, diagnostic data, and sales consultant insurance notes. I discussed patient's case with Dr. Loomis. ROS: 10 systems were reviewed and negative, except as noted above. Past Medical, Surgical, Social, Family History: Past Medical History: Diagnosis Date ADD (attention deficit disorder) Alopecia Alopecia areata Anxiety with depression Eczema Hypotension IBS (irritable bowel syndrome) Irregular menstrual cycle Mental disorder DEPRESSION AND ANGER ISSUE,ANXIETY Neoplasm of pituitary gland Preeclampsia Vasovagal syncope Past Surgical History: Procedure Laterality Date CYSTO MAGGI LASER, RETRO, URETEROSCOPY, STENT (USUAL) Right 10/31/2019 Procedure: CYSTOSCOPY,RIGHT RETROGRADE PYELOGRAM, RIGHT URETEROSOCPY,; basket stone extraction RIGHT URETERAL STENT PLACEMENT; Surgeon: Yan Zuñiga MD; Location: [facility] Main OR; Service: Urology OTHER SURGICAL HISTORY wisdom teeth Social History Socioeconomic History Marital status: Single Spouse name: Not on file Number of children: Not on file Years of education: Not on file Highest education level: Not on file Occupational History Not on file Social Needs Financial resource strain: Not on file Food insecurity Worry: Not on file Inability: Not on file Transportation needs Medical: Not on file Non-medical: Not on file Tobacco Use Smoking status: Never Smoker Smokeless tobacco: Never Used Substance and Sexual Activity Alcohol use: No Drug use: No Sexual activity: Yes Partners: Male Lifestyle Physical activity Days per week: Not on file Minutes per session: Not on file Stress: Not on file Relationships Social connections Talks on phone: Not on file Gets together: Not on file Attends faith service: Not on file Active member of club or organization: Not on file Attends meetings of clubs or organizations: Not on file Relationship status: Not on file Other Topics Concern Not on file Social History Narrative Not on file Family History Problem Relation Age of Onset Hypertension Mother Hypertension Maternal Grandfather Home Medications: Luli Johnson Home Medication Instructions Prior to Surgery SARITHA:[id number] Printed on:11/01/19 1034 Medication Information Take last dose on Take the morning of surgery Comment(s) ARIPiprazole (ABILIFY) 5 MG tablet Take 5 mg by mouth nightly . ascorbate calcium (VITAMIN C ORAL) Take 1 tablet by mouth daily . benztropine (COGENTIN) 0.5 MG tablet Take 0.5 mg by mouth every evening . bran/gum/fib/daniel/psyl/kelp/pec (FIBER 6 ORAL) Take 3 tablets by mouth daily Benifiber chew . cephALEXin (KEFLEX) 500 MG capsule Take 1 (one) capsule (500 mg total) by mouth 3 (three) times a day for 7 days . cholecalciferol, vitamin D3, (VITAMIN D3 ORAL) Take 1 tablet by mouth daily . dicyclomine (BENTYL) 10 MG capsule Take 1 (one) capsule (10 mg total) by mouth 3 (three) times a day as needed (Abdominal cramping) . fluconazole (Diflucan) 150 MG tablet Take 1 (one) tablet (150 mg total) by mouth once as needed (may repeat in 3 days) . HYDROcodone-acetaminophen (NORCO) 5-325 mg per tablet Take 1 (one) tablet by mouth every 6 (six) hours as needed for pain (Days supply per fill: 3) . medroxyPROGESTERone (PROVERA) 10 MG tablet TAKE ONE TABLET BY MOUTH DAILY FOR 10 DAYS naproxen (NAPROSYN) 250 MG tablet Take 250 mg by mouth 2 (two) times a day as needed . ondansetron (ZOFRAN-ODT) 4 MG disintegrating tablet Dissolve 1 (one) tablet (4 mg total) on top of tongue every 6 (six) hours as needed . polyethylene glycol (MIRALAX) 17 gram powder Take 17 (seventeen) g by mouth daily as needed (Constipation) . vitamin with Ca-Iron-FA 27-1 mg Tab Take 1 tablet by mouth every morning . tamsulosin (FLOMAX) 0.4 mg capsule Take 1 (one) capsule (0.4 mg total) by mouth daily for 14 days . Physical Exam: BP 122/79 Pulse 92 Temp 98.6 F (37 C) (Oral) Resp 15 Ht 5' Wt 59 kg (130 lb) LMP 10/07/2019 SpO2 100% BMI 25.39 kg/m General: NAD Eyes: EOMI ENT: neck supple Cardiovascular: Regular rate. No murmur, rub, or gallop Respiratory: Clear to auscultation bilaterally, unlabored on RA Gastrointestinal: Soft, TTP of right lower quadrant, ND, +BS Genitourinary: mild suprapubic tenderness, R flank pain Musculoskeletal: No joint edema Skin: warm, dry Neuro: Alert. Oriented x3 Psych: Mood appropriate. Labs, Imaging, and Studies reviewed: Lab Results Component Value Date GLUCOSE 111 (H) 11/01/2019 CALCIUM 9.5 11/01/2019 NA 139 11/01/2019 K 4.2 11/01/2019 CL 106 11/01/2019 BUN 10 11/01/2019 CREATININE 0.80 11/01/2019 Lab Results Component Value Date WBC 6.72 11/01/2019 HGB 11.8 (L) 11/01/2019 HCT 36.4 11/01/2019 MCV 84.3 11/01/2019 PLT 194 11/01/2019 Lab Results Component Value Date ALT 15 10/25/2019 AST 16 10/25/2019 GGT 16 12/29/2011 ALKPHOS 40 10/25/2019 BILITOT 0.2 10/25/2019 Lab Results Component Value Date INR 1.0 03/19/2015 Associated attestation - Morena Loomis MD - 11/01/2019 2:07 PM EDT I saw and evaluated the patient independently. Discussed case with BRIAN. I agree with her history, exam, and plan of care. All laboratory, images, and chart personally reviewed. Recommendations as summarized below. Patient is new to me. Pt with hx of nephrolithiasis who underwent right ureteroscopy with laser lithotripsy of calculi and stent placement with Dr. Zuñiga 10/31/19. She presents with c/o abdominal pain and gross hematuria. Reportedly had CT A/P in H that showed stent in place. Exam notable for right side abd pain out of proportion to exam, abd soft, ND, +BS. Labs with normal Cr and UA with large RBC. Urology evaluated, presentation expected after above procedure. Plan for IVF hydration, continued Keflex, nausea and pain control, would avoid escalating current narcotics (Percocet 5mg q6hr prn) and utilize Toradol instead. Can be discharged home 11/02/19 documented in this encounter [facility] History and Physical Note 11/03/19 Luli Johnson 1990 [id number] Assessment/Plan: Luli Johnson is a 28 y.o. female with a history of nephrolithiasis, vassovagal syncope and depression/anxiety with recent lithotripsy and right ureteral stent placement 10/31/19 and OBS admission 11/01/19 for pain control who presented to [facility] Observation 11/03/2019 with abdominal pain, nausea/vomiting in context of ureteral stent. 1. Nephrolithiasis: patient follows with Dr. Zuñiga and saw him 10/25/19 for ongoing R flank pain and removal of 5mm R kidney stone. S/p cystoscopy with Dr. Zuñiga 10/31/19. Has had continued right flank pain, hematuria and nausea/vomiting. Planned to have stent removed 11/06/19. Hgb stable. Admit XR abdomen non-acute with right ureteral stent in place. Urology followed on 11/01/19 with recommendation for supportive care. IVF. Flomax. Pain control with toradol and percocet. Zofran prn. 2. Abdominal Pain: suspect in setting above. Abdomen benign. Given continued vomiting will get CT A/P with contrast to rule out other pathology. 3. Abnormal UA: Admit UA with hematuria, bacteriuria, improving pyuria from past UA. UCx 11/02/19 negative. Continued 7 day course of keflex ending 11/05/[address] Zuñiga. 4. Vasovagal syncope: Chronic syncopal events 1-2x per week for >1year usually with defecation.Has been intolerant of medications in the past and has been prescribed compression stockings. Orthostatic vitals pending. IVF. Recommended continued outpatient follow up for recurrent syncope. 5. IBS-C: Chronic constipation. Used fleet enema at home 11/03/19 with mild rectal bleeding after straining. Miralax prn. 6. Anxiety/depression: continued abilifiy Current Living Situation: home Estimated discharge date: 11/03/19 Chief Complaint: Abdominal pain History of Present Illness: Luli Johnson is a 28 y.o. female with a history of nephrolithiasis, vassovagal syncope and depression/anxiety with recent lithotripsy and right ureteral stent placement 10/31/19 and OBS admission 11/01/19 for pain control who presented to [facility] Observation 11/03/2019 with abdominal pain, nausea/vomiting in context of ureteral stent. Continued right lower abdominal pain after right ureteral stent placement 10/31/19. Pain is located in the right groin, mild at rest, worse with movement, intermittent with sharp quality. Denied other abdominal pain. History of vasovagal syncope with 1-2x spells per week for >1 year usually with defecation and standing up from the toilet. Treat with compression stockings. 2x vomiting in the ED, non-bloody. She has chronic constipation from IBS-C and used fleet enema today on advice from urologist with mild rectal bleeding. ROS: 10 systems were reviewed and negative, except as noted above. Past Medical, Surgical, Social, Family History: Past Medical History: Diagnosis Date ADD (attention deficit disorder) Alopecia Alopecia areata Anxiety with depression Eczema Hypotension IBS (irritable bowel syndrome) Irregular menstrual cycle Mental disorder DEPRESSION AND ANGER ISSUE,ANXIETY Neoplasm of pituitary gland Preeclampsia Vasovagal syncope Past Surgical History: Procedure Laterality Date CYSTO MAGGI LASER, RETRO, URETEROSCOPY, STENT (USUAL) Right 10/31/2019 Procedure: CYSTOSCOPY,RIGHT RETROGRADE PYELOGRAM, RIGHT URETEROSOCPY,; basket stone extraction RIGHT URETERAL STENT PLACEMENT; Surgeon: Yan Zuñiga MD; Location: [facility] Main OR; Service: Urology OTHER SURGICAL HISTORY wisdom teeth Social History Socioeconomic History Marital status: Single Spouse name: Not on file Number of children: Not on file Years of education: Not on file Highest education level: Not on file Occupational History Not on file Social Needs Financial resource strain: Not on file Food insecurity Worry: Not on file Inability: Not on file Transportation needs Medical: Not on file Non-medical: Not on file Tobacco Use Smoking status: Never Smoker Smokeless tobacco: Never Used Substance and Sexual Activity Alcohol use: No Drug use: No Sexual activity: Yes Partners: Male Lifestyle Physical activity Days per week: Not on file Minutes per session: Not on file Stress: Not on file Relationships Social connections Talks on phone: Not on file Gets together: Not on file Attends faith service: Not on file Active member of club or organization: Not on file Attends meetings of clubs or organizations: Not on file Relationship status: Not on file Other Topics Concern Not on file Social History Narrative Not on file Family History Problem Relation Age of Onset Hypertension Mother Hypertension Maternal Grandfather Home Medications: Luli Johnson Home Medication Instructions Prior to Surgery SARITHA:[id number] Printed on:11/03/19 1254 Medication Information Take last dose on Take the morning of surgery Comment(s) ARIPiprazole (ABILIFY) 5 MG tablet Take 5 mg by mouth nightly . ascorbate calcium (VITAMIN C ORAL) Take 1 tablet by mouth daily . benztropine (COGENTIN) 0.5 MG tablet Take 0.5 mg by mouth every evening . bran/gum/fib/daniel/psyl/kelp/pec (FIBER 6 ORAL) Take 3 tablets by mouth daily Benifiber chew . cephALEXin (KEFLEX) 500 MG capsule Take 1 (one) capsule (500 mg total) by mouth 3 (three) times a day for 7 days . cholecalciferol, vitamin D3, (VITAMIN D3 ORAL) Take 1 tablet by mouth daily . dicyclomine (BENTYL) 10 MG capsule Take 1 (one) capsule (10 mg total) by mouth 3 (three) times a day as needed (Abdominal cramping) . fluconazole (Diflucan) 150 MG tablet Take 1 (one) tablet (150 mg total) by mouth once as needed (may repeat in 3 days) . HYDROcodone-acetaminophen (NORCO) 5-325 mg per tablet Take 1 (one) tablet by mouth every 6 (six) hours as needed for pain (Days supply per fill: 3) . naproxen (NAPROSYN) 250 MG tablet Take 250 mg by mouth 2 (two) times a day as needed . ondansetron (ZOFRAN-ODT) 4 MG disintegrating tablet Dissolve 1 (one) tablet (4 mg total) on top of tongue every 6 (six) hours as needed . vitamin with Ca-Iron-FA 27-1 mg Tab Take 1 tablet by mouth every morning . tamsulosin (FLOMAX) 0.4 mg capsule Take 1 (one) capsule (0.4 mg total) by mouth daily for 14 days . Physical Exam: BP (!) 124/90 (BP Location: Right arm, Patient Position: Lying) Pulse 95 Temp 98.6 F (37 C) (Oral) Resp 12 Ht 5' Wt 55.8 kg (123 lb) LMP 10/07/2019 SpO2 98% BMI 24.02 kg/m General: NAD Eyes: EOMI ENT: neck supple Cardiovascular: Regular rate. Respiratory: Clear to auscultation Gastrointestinal: Soft, tender with moderate palpation to right groin, no tenderness in the upper or middle abdomen or on left side. Genitourinary: no suprapubic tenderness Musculoskeletal: No edema Skin: warm, dry Neuro: Alert and oriented Psych: Mood appropriate. Labs, Imaging, and Studies reviewed: Lab Results Component Value Date GLUCOSE 88 11/03/2019 CALCIUM 9.2 11/03/2019 NA 140 11/03/2019 K 3.6 11/03/2019 CL 108 11/03/2019 BUN 13 11/03/2019 CREATININE 0.50 11/03/2019 Lab Results Component Value Date WBC 7.70 11/03/2019 HGB 11.2 (L) 11/03/2019 HCT 34.6 (L) 11/03/2019 MCV 85.4 11/03/2019 PLT 205 11/03/2019 Lab Results Component Value Date ALT 8 11/02/2019 AST 10 11/02/2019 GGT 16 12/29/2011 ALKPHOS 31 (L) 11/02/2019 BILITOT 0.4 11/02/2019 Lab Results Component Value Date INR 1.0 03/19/2015 Associated attestation - Eliz Lowery MD - 2019 1:18 AM EDT Patient seen and examined by myself, medical records reviewed, discussed with PA, agree with assessment and plans. Patient was seen before midnight. She presented with persistent right side pain, nausea and vomiting. Right ureteral stone: per retrograde urogram 10/31/2019, s/p cystoscopy and laser lithotripsy of calculi with R ureteral stent placement as OP on 10/31/19, urinary culture negative 11/02/2019, persistent hematuria and pain and dysuria in spite of pain medications, continue Keflex, pain control, consult Dr. Zuñiga of urology. Nausea vomiting: for one day, unable to keep anything down, +bowel movement, X ray abdomen no acute, check CT abdomen pelvis with IV contrast given this and persistent pain. Vasovagal syncope: with urination, chronic. documented in this encounter INTERVAL HISTORY AND PHYSICAL Patient Name: Luli Johnson Admit Date: MR #: [id number] : 1990 The H&P has been reviewed and the patient has been examined. I concur with the findings of the H&P. There are no significant changes. It is appropriate to proceed with the planned procedure. Yan Zuñiga MD 11/05/2019 2:30 PM CONSULT NOTE Patient Name: Luli Johnson Admit Date: MR #: [id number] : 1990 Assessment and Plan: Right Stent/Ureteral Colic Nephrolithiasis Abnormal UA - Xray 11/03/19: There has been interval placement of a right ureteral stent which appears appropriately position - CT A/P 11/04/19: Right ureteral stent is present. There is mild dilatation of the right intrarenal collecting system and right ureter without associated stone along the course of the right ureter. There is a 3.5 mm nonobstructive right intrarenal calculus. Findings may reflect underlying stent dysfunction. - Admit UA with hematuria, mild pyuria and heavy proteinuria. Patient reports dysuria. UCx 10/24 with E. Coli and pt completed course of Keflex. UCx 11/01 with NGTD. Repeat UCx 11/03 pending. On admit started Ancef, discontinue if urine culture is negative. - Patient is presenting for the third time for ongoing right ureteral stent intolerance. S/p URS with right stent placement on 10/31/[address] Zuñiga. Patient is scheduled to see in office tomorrow for right stent removal, however, with continued stent intolerance, would prefer for stent removal today. - Discussed with Dr. Zuñiga. Will plan for OR today for cystoscopy with right ureteral stent removal - Keep NPO Assessment Detail: The total time spent for this visit was 50 minutes. Greater than 50% of the time was spent in counseling and coordination of care regarding right ureteral stent intolerance, abnormal UA, and right-sided nephrolithiasis. Thank you for this consult and allowing me to participate in your patient care. If you have any further questions, please don't hesitate to call. Nichelle Barber PA-C [facility] Physicians: Mercedez Cotto CNP (Family); No ref. provider found (Referring) Chief Complaint/Reason for Visit: Chief Complaint Patient presents with Emesis History of Present Illness: Luli Johnson is a 29 y.o. female with a history of nephrolithiasis, vasovagal syncope, IBS-C, and depression/anxiety with recent lithotripsy and right ureteral stent placement 10/30 with multiple subsequent [facility] OBS admission for pain control and vomiting with CT A/P 11/03 non-acute who presented to [facility] 2019 with continued vomiting and right flank pain. Urology re-consulted. S/p ureteroscopy with laser of stone last week (10/31/19) and right ureteral stent placement with Dr. Zuñiga. She has had poor stent tolerance. She has had issues with stent colic and nausea off and on. She is readmitted for the third time with complaint of right flank and groin pain. She was discharged yesterday from OBS unit after she felt comfortable going home , and then represented to ED yesterday evening. Reported had syncopal episode while urinating at home. X-ray shows that the stent is in good position. She is afebrile. Urine culture 11/02/2019 was negative. UA on admit abnormal. Repeat urine culture on 10/24. She has had some persistent hematuria and dysuria. She admits that some of this is related to her anxiety around the surgery and having the stent in place. Patient is due to see Dr. Zuñiga in tomorrow to have the stent removed. Patient states that she prefers to have her right ureteral stent removed in the OR because she feels that she will faint if she has a procedure done while awake/ at bedside. She has had some sips of water this AM, otherwise has been NPO. Denies fevers or chills. Syncope is chronic for ~1 year with 1-2x episodes per week. Denied chest pain or shortness of breath. History: Past Medical History: Diagnosis Date ADD (attention deficit disorder) Alopecia Alopecia areata Anxiety with depression Eczema Hypotension IBS (irritable bowel syndrome) Irregular menstrual cycle Mental disorder DEPRESSION AND ANGER ISSUE,ANXIETY Neoplasm of pituitary gland Preeclampsia Vasovagal syncope Past Surgical History: Procedure Laterality Date CYSTO MAGGI LASER, RETRO, URETEROSCOPY, STENT (USUAL) Right 10/31/2019 Procedure: CYSTOSCOPY,RIGHT RETROGRADE PYELOGRAM, RIGHT URETEROSOCPY,; basket stone extraction RIGHT URETERAL STENT PLACEMENT; Surgeon: Yan Zuñiga MD; Location: [facility] OR; Service: Urology OTHER SURGICAL HISTORY wisdom teeth Family History Problem Relation Age of Onset Hypertension Mother Hypertension Maternal Grandfather Social History Socioeconomic History Marital status: Single Spouse name: Not on file Number of children: Not on file Years of education: Not on file Highest education level: Not on file Occupational History Not on file Social Needs Financial resource strain: Not on file Food insecurity Worry: Not on file Inability: Not on file Transportation needs Medical: Not on file Non-medical: Not on file Tobacco Use Smoking status: Never Smoker Smokeless tobacco: Never Used Substance and Sexual Activity Alcohol use: No Drug use: No Sexual activity: Yes Partners: Male Lifestyle Physical activity Days per week: Not on file Minutes per session: Not on file Stress: Not on file Relationships Social connections Talks on phone: Not on file Gets together: Not on file Attends faith service: Not on file Active member of club or organization: Not on file Attends meetings of clubs or organizations: Not on file Relationship status: Not on file Other Topics Concern Not on file Social History Narrative Not on file Allergy Information: I have reviewed the patient's allergies. Cat dander, Ciprofloxacin-hydrocortisone, Tree nuts, Sulfasalazine, Ciprofloxacin, Diphenhydramine, Diphenhydramine hcl, Hydrocortisone, Sulfa (sulfonamide antibiotics), and Sulfamethoxazole-trimethoprim Home Medications: Outpatient Medications as of 11/05/2019 Medication Sig ARIPiprazole (ABILIFY) 5 MG tablet Take 5 mg by mouth nightly . ascorbate calcium (VITAMIN C ORAL) Take 1 tablet by mouth daily . benztropine (COGENTIN) 0.5 MG tablet Take 0.5 mg by mouth every evening . bran/gum/fib/daniel/psyl/kelp/pec (FIBER 6 ORAL) Take 3 tablets by mouth daily Benifiber chew . cephALEXin (KEFLEX) 500 MG capsule Take 1 (one) capsule (500 mg total) by mouth 3 (three) times a day for 7 days . cholecalciferol, vitamin D3, (VITAMIN D3 ORAL) Take 1 tablet by mouth daily . fluconazole (Diflucan) 150 MG tablet Take 1 (one) tablet (150 mg total) by mouth once as needed (may repeat in 3 days) . naproxen (NAPROSYN) 250 MG tablet Take 250 mg by mouth 2 (two) times a day as needed . vitamin with Ca-Iron-FA 27-1 mg Tab Take 1 tablet by mouth every morning . tamsulosin (FLOMAX) 0.4 mg capsule Take 1 (one) capsule (0.4 mg total) by mouth daily for 14 days . Review of Systems: The following system(s) were reviewed and are negative unless otherwise noted in the HPI: Constitutional CV Resp GI Physical Examination: Vital Signs: BP 114/73 Pulse 85 Temp 98.3 F (36.8 C) (Oral) Resp 14 Ht 5' Wt 56.7 kg (125 lb) LMP 10/07/2019 SpO2 100% BMI 24.41 kg/m General appearance: alert, cooperative and no distress Head: Normocephalic, without obvious abnormality, atraumatic Eyes: conjunctivae/corneas clear Neck: supple, symmetrical, trachea midline Back: Right CVA tenderness, no Left CVA tenderness Lungs: Normal respiratory effort. Non-labored breathing. Heart: regular rate and rhythm Abdomen: soft, non-distended, RLQ TTP, right groin TTP Extremities: No edema or cyanosis Skin: Warm, dry Neurologic: Grossly normal Psych: Mood appropriate : Purewick in place with red urine Laboratory and Additional Data Reviewed: I have personally reviewed all labs and imaging below and agree with interpretation. Results from last 7 days Lab Units 11/05/1930211/04/19204111/03/192053 SODIUM mmol/L 137 138 140 POTASSIUM mmol/L 3.3* 3.5 3.6 CHLORIDE mmol/L 104 106 108 BUN mg/dL 6* 9 13 CREATININE mg/dL 0.51 0.58 0.50 GLUCOSE mg/dL 84 87 88 CALCIUM mg/dL 9.1 9.3 9.2 Results from last 7 days Lab Units 11/05/1930211/04/19204111/03/19205311/01/19 0655 WBC K/mcL 6.07 6.64 7.70 6.72 HGB g/dL 10.5* 10.6* 11.2* 11.8* HCT % 32.8* 32.1* 34.6* 36.4 PLT K/mcL 204 217 205 194 MONOS% % -- 6.6 6.6 7.9 Lab Results Component Value Date COLORUR Red (A) 2019 CLARITYUR Cloudy (A) 2019 SPECGRAV 1.018 2019 PHUR 8.0 (H) 2019 PROTUR >=500 (A) 2019 GLUCUR Negative 2019 KETONESU Negative 10/25/2019 BILIUR Negative 2019 BLOODUR Large (A) 2019 NITRITEUR Negative 2019 LEUKESTUR Trace (A) 2019 WBCUR 8 (H) 2019 RBCUR >180 (H) 2019 BACTUR Few (A) 2019 YEASTUR Rare (A) 10/25/2019 Lab Results Component Value Date CULTUREURN No Growth (<1,000 CFU/mL) 11/02/2019 CULTUREURN 50,000-100,000 CFU/mL Escherichia coli (A) 10/25/2019 CULTUREURN SEE NOTE 08/29/2019 CULTUREURN SEE NOTE 07/03/2019 CULTUREURN SEE NOTE 05/31/2018 CULTUREURN SEE NOTE 12/29/2017 CULTUREURN SEE NOTE 11/16/2017 CULTUREURN SEE NOTE 06/06/2017 CULTUREURN 12/15/2016 Comment: CULTURE, URINE, ROUTINE MICRO NUMBER: [id number] TEST STATUS: FINAL SPECIMEN SOURCE: URINE, CLEAN CATCH SPECIMEN QUALITY: ADEQUATE RESULT: 10,000-50,000 CFU/mL of Mixed non-uropathogenic Gram positive colette. May represent colonizers from external and internal genitalia. No further testing (including susceptibility) will be performed. CULTUREURN 09/20/2016 Comment: CULTURE, URINE, ROUTINE MICRO NUMBER: [id number] TEST STATUS: FINAL SPECIMEN SOURCE: URINE, CLEAN CATCH SPECIMEN QUALITY: ADEQUATE RESULT: 10,000-50,000 CFU/mL of Mixed non-uropathogenic Gram positive colette. May represent colonizers from external and internal genitalia. No further testing (including susceptibility) will be performed. Xr Abdomen Ap Result Date: 11/03/2019 EXAMINATION: XR ABDOMEN /KUB/FLAT PLATE/1 VIEW 11/03/2019 8:37 pm HISTORY: ORDERING SYSTEM PROVIDED HISTORY: evaluate stent placement, TECHNOLOGIST PROVIDED HISTORY: Illness/Other Reason for exam: evaluate stent placement Cancer History: no Surgery, RadiationHistory: unk Encounter Type: Initial Additional signs and symptoms: ORDERING SYSTEM PROVIDED DIAGNOSIS CODES: COMPARISON: 03/30/2018 FINDINGS: Single supine image is obtained of the abdomen. There is a 3 mm calcification overlying the right kidney, similar to previous. There has been interval placement of a right ureteral stent which appears appropriately position. There is a phlebolith within the left pelvis. There is a nonobstructive bowel gas pattern. The skeletal structures are unremarkable in appearance. Right ureteral stent placement, otherwise no significant interval change. Workstation ID: [id number] Ct Abdomen Pelvis With Iv Contrast Only Result Date: 2019 EXAMINATION: CT ABDOMEN PELVIS WITH IV CONTRAST ONLY HISTORY: ORDERING SYSTEM PROVIDED HISTORY: Nausea/vomiting, TECHNOLOGIST PROVIDED HISTORY: Illness/Other Reason for Exam: Nausea/vomiting Encounter Type: Initial Additional Signs and Symptoms: Nausea/vomiting ORDERING SYSTEM PROVIDED DIAGNOSIS CODES: Z96.0 Status post placement of ureteral stent N23 Renal colic R31.9 Hematuria, unspecified type R55 Vasovagal syncope COMPARISON: CT examination of the chest, abdomen and pelvis, 09/30/2019. TECHNIQUE: CT examination of the abdomen and pelvis following administration of 75 mL Isovue-370 intravenous contrast. Coronal and sagittal reformations are performed. Dose reduction techniques were achieved by using automated exposure control and/or adjustment of mA and/or kV according to patient size and/or use of iterative reconstruction technique. FINDINGS: Lung bases are clear. ABDOMEN: Liver is homogeneous in attenuation without evidence for focal lesion. Gallbladder is unremarkable. Spleen, adrenal glands and pancreas are unremarkable. No abdominal lymphadenopathy. Symmetric enhancement of the kidneys. 7 mm probable partially exophytic left midpole renal cortical cyst. No left hydronephrosis. No left intrarenal calculi. Right ureteral stent is present with mild dilatation of the right intrarenal collecting system. There is an intrarenal calculus measuring 3.5 mm with density of 1,223 Hounsfield units. PELVIS: There is mild dilatation of the right ureter. No stones are noted adjacent to the right ureteral stent. No bladder stone. Uterus and adnexa are unremarkable for age. Small amount of pelvic free fluid, which may be physiologic. No pelvic lymphadenopathy. No evidence for small- or large-bowel obstruction. Prominent amount of gas within small bowel with a few scattered air-fluid levels which may reflect underlying ileus. No free air. No suspicious osteolytic or osteoblastic lesion. 1. There is a prominent amount of gas within the small bowel with a few scattered air-fluid levels. Small bowel remains nondilated without discrete point of transition. Findings suggest mild ileus. 2. Right ureteral stent is present. There is mild dilatation of the right intrarenal collecting system and right ureter without associated stone along the course of the right ureter. There is a 3.5 mm nonobstructive right intrarenal calculus. Findings may reflect underlying stent dysfunction. Enhancement of the kidneys remains symmetric. 3. Small amount of pelvic free fluid, likely physiologic. [facility] Workstation ID: [id number] Associated attestation - Yan Zuñiga MD - 11/05/2019 2:30 PM EDT I have personally reviewed the history and examined the patient and agree with the findings of the physician assistant loan processor's history and physical. I have reviewed her labs and CT scan results. Her residual 3 mm stone was not visible at time of ureteroscopy. I discussed the implications of this with the patient and her mother. I concur with the assessment and plan. Will plan on stent removal in OR today. Yan Zuñiga MD [facility] [employer] History and Physical Note 11/05/19 Luli Johnson 1990 [id number] Assessment/Plan: Luli Johnson is a 29 y.o. female with a history of nephrolithiasis, vasovagal syncope, IBS-C, and depression/anxiety with recent lithotripsy and right ureteral stent placement 10/30 with multiple subsequent [facility] OBS admission for pain control and vomiting with CT A/P 11/03 non-acute who presented to [facility] 2019 with continued vomiting and right flank pain. 1. Nephrolithiasis: right ureteral stent and lithotripsy for 5mm kidney stone 10/31/[address] Zuñiga (urology). Continued right flank pain, hematuria and nausea/vomiting since stent placement. Admit Hgb stable at 10.6..CT A/P 11/03 with mild mild dilation of right renal collecting duct, possibly stent dysfunction. Urology followed on 11/04/19 with recommendation for supportive care and planned to remove stent outpatient 11/05. Continued tamsulosin. Given continued stent intolerance urology consulted. 2. Vomiting: Pt has been intolerant of most PO intake since ureteral stent placement 10/30. Reports history of chronic intermittent vomiting for >[address] A/P 10/08/19 without abdominal pathology to explain vomiting. Zofran prn and clear liquid diet. 3. Abnormal UTI: Pt reports burning with urination. Admit UA with hematuria, mild pyuria and heavy proteinuria. UCx 10/24 with E. Coli and pt was treated with keflex. UCx 11/01 with NGTD. Repeat UCx pending. On admit started Ancef, discontinued if urine culture is negative. 4. Chronic vasovagal syncope: Reports ~ 1 year of syncope during urination or defecation with LOC brief to 5 minutes duration. Syncope is mildly exacerbated recently due to abdominal pain with Valsalva. Continued compression stocking. 5. IBS-C: Chronic constipation. Last regular BM 10/25/19. Previously on bentyl but denied currently taking. Started bowel regimen. 6. Depression/anxiety: per hx, not currently on medication. 7. DVT Prophylaxis: low risk Current living situation: home Expected Disposition: home Estimated discharge date: TBD Chief Complaint: Vomiting History of Present Illness: Luli Johnson is a 28 y.o. female with a history of nephrolithiasis, vasovagal syncope, IBS-C, and depression/anxiety with recent lithotripsy and right ureteral stent placement 10/30 with multiple subsequent [facility] OBS admission for pain control and vomiting with CT A/P 11/03 non-acute who presented to [facility] 2019 with continued vomiting and right flank pain. Discharge from OBS unit at 3pm and went home and ate grilled chicken and mashed potatoes causing vomiting, non-bloody. Reported had syncopal episode while urinating at home. Report pain in right groin is sharp and intermittent, worse with movement or palpation and has been present since ureteral stent was placed 826. Reports 2 year history of intermittent vomiting about once per week. Syncope is chronic for ~1 year with 1-2x episodes per week. Denied chest pain or shortness of breath. ROS: 10 systems were reviewed and negative, except as noted above. Past Medical, Surgical, Social, Family History: Past Medical History: Diagnosis Date ADD (attention deficit disorder) Alopecia Alopecia areata Anxiety with depression Eczema Hypotension IBS (irritable bowel syndrome) Irregular menstrual cycle Mental disorder DEPRESSION AND ANGER ISSUE,ANXIETY Neoplasm of pituitary gland Preeclampsia Vasovagal syncope Past Surgical History: Procedure Laterality Date CYSTO MAGGI LASER, RETRO, URETEROSCOPY, STENT (USUAL) Right 10/31/2019 Procedure: CYSTOSCOPY,RIGHT RETROGRADE PYELOGRAM, RIGHT URETEROSOCPY,; basket stone extraction RIGHT URETERAL STENT PLACEMENT; Surgeon: Yan Zuñiga MD; Location: [facility] Main OR; Service: Urology OTHER SURGICAL HISTORY wisdom teeth Social History Socioeconomic History Marital status: Single Spouse name: Not on file Number of children: Not on file Years of education: Not on file Highest education level: Not on file Occupational History Not on file Social Needs Financial resource strain: Not on file Food insecurity Worry: Not on file Inability: Not on file Transportation needs Medical: Not on file Non-medical: Not on file Tobacco Use Smoking status: Never Smoker Smokeless tobacco: Never Used Substance and Sexual Activity Alcohol use: No Drug use: No Sexual activity: Yes Partners: Male Lifestyle Physical activity Days per week: Not on file Minutes per session: Not on file Stress: Not on file Relationships Social connections Talks on phone: Not on file Gets together: Not on file Attends faith service: Not on file Active member of club or organization: Not on file Attends meetings of clubs or organizations: Not on file Relationship status: Not on file Other Topics Concern Not on file Social History Narrative Not on file Family History Problem Relation Age of Onset Hypertension Mother Hypertension Maternal Grandfather Home Medications: Outpatient Medications as of 11/05/2019 Medication Sig ARIPiprazole (ABILIFY) 5 MG tablet Take 5 mg by mouth nightly . ascorbate calcium (VITAMIN C ORAL) Take 1 tablet by mouth daily . benztropine (COGENTIN) 0.5 MG tablet Take 0.5 mg by mouth every evening . bran/gum/fib/daniel/psyl/kelp/pec (FIBER 6 ORAL) Take 3 tablets by mouth daily Benifiber chew . cephALEXin (KEFLEX) 500 MG capsule Take 1 (one) capsule (500 mg total) by mouth 3 (three) times a day for 7 days . cholecalciferol, vitamin D3, (VITAMIN D3 ORAL) Take 1 tablet by mouth daily . fluconazole (Diflucan) 150 MG tablet Take 1 (one) tablet (150 mg total) by mouth once as needed (may repeat in 3 days) . naproxen (NAPROSYN) 250 MG tablet Take 250 mg by mouth 2 (two) times a day as needed . vitamin with Ca-Iron-FA 27-1 mg Tab Take 1 tablet by mouth every morning . tamsulosin (FLOMAX) 0.4 mg capsule Take 1 (one) capsule (0.4 mg total) by mouth daily for 14 days . Physical Exam: BP 111/76 (BP Location: Right arm, Patient Position: Lying) Pulse 87 Temp 98.2 F (36.8 C) (Oral) Resp 14 Ht 5' Wt 56.7 kg (125 lb) LMP 10/07/2019 SpO2 100% BMI 24.41 kg/m General: NAD Eyes: EOMI ENT: neck supple Cardiovascular: Regular rate. Respiratory: Clear to auscultation Gastrointestinal: Soft, right groin tenderness to light palpation Musculoskeletal: No edema Skin: warm, dry Neuro: Alert and oriented Psych: Mood appropriate. Labs, Imaging, and Studies reviewed: Results from last 7 days Lab Units 11/04/19204111/03/19205311/01/19 0655 WBC K/mcL 6.64 7.70 6.72 HGB g/dL 10.6* 11.2* 11.8* HCT % 32.1* 34.6* 36.4 PLT K/mcL 217 205 194 Results from last 7 days Lab Units 11/04/19204111/03/19205311/02/19 0349 SODIUM mmol/L 138 140 139 POTASSIUM mmol/L 3.5 3.6 3.8 CHLORIDE mmol/L 106 108 107 BICARB mmol/L 22 21 21 BUN mg/dL 9 13 5* CREATININE mg/dL 0.58 0.50 0.54 EGFR mL/min/1.73 m2 126 132 129 GLUCOSE mg/dL 87 88 88 CALCIUM mg/dL 9.3 9.2 8.7 Results from last 7 days Lab Units 11/02/19 0349 ALT U/L 8 AST U/L 10 ALK PHOS U/L 31* BILIRUBIN TOTAL mg/dL 0.4 ' Associated attestation - Sommer Stevens MD - 11/05/2019 5:05 AM EDT I have seen and examined the patient independently of BRIAN. I agree with the assessment and plan. Pt is presenting for third time s/p ureteral stent placement for ongoing groin pain and nausea. S/p renal stone removal 10/31/19, when stent was placed. Pt reports it being painful ever since. Recent CT A/P shows another stone, nonobstrucive remains. Urology consulted. Supportive care. UA was grossly dirty, has been on multiple occasions since urology intervention. Pt currently completed abx. F/u urine culture.documented in this encounter [facility] History and Physical Note 11/17/19 Luli Johnson 1990 [id number] Assessment/Plan: Luli Johnson is a 29 y.o. female with a history of alopecia, hx of kidney stones and depression who presented to [facility] Observation 11/17/2019 with bilateral flank pain/nausea/vomiting. On admit: Temp 100.6, H% 145. K+ 3.3, UA with large blood/large leuks, >[address] A/P with bladder wall thickening and right- sided nephrolithiasis without obstruction. 1. Acute UTI: Temp 100.6. UA on admit as discussed. Cefazolin initiated on admit.Urine culture pending, adjust abx accordingly. 2. Urinary Retention: requiring chronic reaves catheter. Follows with Dr. Martínez (urology) as outpatient. 3. Nausea/Vomiting: x3 days. CT A/P on admit as discussed. PRN zofran. Monitor. 4. Right Sided Nephrolithiasis: with known history. Follows with Dr. Martínez (urology) as outpatient who knows about stone, no planned intervention at this time. 5. Depression/Anxiety: per history. Continued home abilify/cogentin. Current Living Situation: home Estimated discharge date: TBD Chief Complaint: Bilateral flank pain/nausea/vomiting History of Present Illness: Luli Johnson is a 29 y.o. female with a history of alopecia, hx of kidney stones and depression who presented to [facility] Observation 11/17/2019 with bilateral flank pain/nausea/vomiting. On admit: Temp 100.6, H% 145. K+ 3.3, UA with large blood/large leuks, >[address] A/P with bladder wall thickening and right- sided nephrolithiasis without obstruction. Patient reports that she has been having nausea/vomiting for about 3 days. She states that she is unable to keep foods and medications down. She also reports bilateral flank pain. She states that she follows with Dr. Martínez with urology as outpatient. She has a known history of kidney stones and she is aware the she currently has a right sided stone that Dr. Martínez is not wanting to surgically remove currently. She also reports issues with urinary retention requiring her to have frequent catheters. She states that her urologist would like to possibly put in a suprapubic catheter if the issue continues. She states that she has history of IBS and has had an ileus in the past. She reports that her last BM was yesterday and that she has vague abdominal pain. She endorses fevers at home as well. She denies chest pain, SOB, cough. ROS: 10 systems were reviewed and negative, except as noted above. Past Medical, Surgical, Social, Family History: Past Medical History: Diagnosis Date ADD (attention deficit disorder) Alopecia Alopecia areata Anxiety with depression Eczema Hypotension IBS (irritable bowel syndrome) Irregular menstrual cycle Mental disorder DEPRESSION AND ANGER ISSUE,ANXIETY Neoplasm of pituitary gland Preeclampsia Vasovagal syncope Past Surgical History: Procedure Laterality Date CYSTO MAGGI LASER, RETRO, URETEROSCOPY, STENT (USUAL) Right 10/31/2019 Procedure: CYSTOSCOPY,RIGHT RETROGRADE PYELOGRAM, RIGHT URETEROSOCPY,; basket stone extraction RIGHT URETERAL STENT PLACEMENT; Surgeon: Yan Zuñiga MD; Location: [facility] Main OR; Service: Urology CYSTO RETRO STONE MANIPULATION STENT INSERTION Right 11/05/2019 Procedure: CYSTOSCOPY WITH RIGHT STENT REMOVAL; Surgeon: Yan Zuñiga MD; Location: [facility] Main OR; Service: Urology OTHER SURGICAL HISTORY wisdom teeth Social History Socioeconomic History Marital status: Single Spouse name: Not on file Number of children: Not on file Years of education: Not on file Highest education level: Not on file Occupational History Not on file Social Needs Financial resource strain: Not on file Food insecurity Worry: Not on file Inability: Not on file Transportation needs Medical: Not on file Non-medical: Not on file Tobacco Use Smoking status: Never Smoker Smokeless tobacco: Never Used Substance and Sexual Activity Alcohol use: No Drug use: No Sexual activity: Yes Partners: Male Lifestyle Physical activity Days per week: Not on file Minutes per session: Not on file Stress: Not on file Relationships Social connections Talks on phone: Not on file Gets together: Not on file Attends faith service: Not on file Active member of club or organization: Not on file Attends meetings of clubs or organizations: Not on file Relationship status: Not on file Other Topics Concern Not on file Social History Narrative Not on file Family History Problem Relation Age of Onset Hypertension Mother Hypertension Maternal Grandfather Home Medications: Luli Johnson Home Medication Instructions Prior to Surgery SARITHA:[id number] Printed on:11/17/192201 Medication Information Take last dose on Take the morning of surgery Comment(s) ARIPiprazole (ABILIFY) 5 MG tablet Take 5 mg by mouth nightly . ascorbate calcium (VITAMIN C ORAL) Take 1 tablet by mouth daily . benztropine (COGENTIN) 0.5 MG tablet Take 0.5 mg by mouth every evening . bran/gum/fib/daniel/psyl/kelp/pec (FIBER 6 ORAL) Take 3 tablets by mouth daily Benifiber chew . cephALEXin (KEFLEX) 500 MG capsule Take 1 (one) capsule (500 mg total) by mouth 4 (four) times a day for 7 days . cholecalciferol, vitamin D3, (VITAMIN D3 ORAL) Take 1 tablet by mouth daily . fluconazole (Diflucan) 150 MG tablet Take 1 (one) tablet (150 mg total) by mouth once as needed (may repeat in 3 days) . naproxen (NAPROSYN) 250 MG tablet Take 250 mg by mouth 2 (two) times a day as needed . ondansetron (ZOFRAN-ODT) 4 MG disintegrating tablet Dissolve 1 (one) tablet (4 mg total) on top of tongue every 6 (six) hours as needed . vitamin with Ca-Iron-FA 27-1 mg Tab Take 1 tablet by mouth every morning . Physical Exam: BP 109/61 (BP Location: Left arm, Patient Position: Lying) Pulse 87 Temp 98.1 F (36.7 C) (Oral) Resp 18 Ht 5' Wt 55.5 kg (122 lb 6.4 oz) SpO2 99% BMI 23.90 kg/m General: NAD Eyes: Conjugate gaze. ENT: MMM. Cardiovascular: Regular rate and rhythm. Respiratory: Clear to auscultation bilaterally. Gastrointestinal: Soft, TTP throughout. BS+ Genitourinary: +bilteral flank pain Musculoskeletal: No cyanosis, no joint edema. Skin: warm, dry Neuro: Alert and oriented x3. No focal deficits. Psych: Mood appropriate. Labs, Imaging, and Studies reviewed: Lab Results Component Value Date GLUCOSE 114 (H) 11/17/2019 CALCIUM 10.0 11/17/2019 NA 140 11/17/2019 K 3.3 (L) 11/17/2019 CL 102 11/17/2019 BUN 15 11/17/2019 CREATININE 0.71 11/17/2019 Lab Results Component Value Date WBC 8.32 11/17/2019 HGB 12.1 11/17/2019 HCT 36.6 11/17/2019 MCV 83.4 11/17/2019 PLT 257 11/17/2019 Lab Results Component Value Date ALT 10 11/17/2019 AST 14 11/17/2019 GGT 16 12/29/2011 ALKPHOS 47 11/17/2019 BILITOT 0.4 11/17/2019 Lab Results Component Value Date INR 1.0 03/19/2015 Associated attestation - Eagle, Slick Whelan MD - 11/18/2019 12:28 AM EDT I saw and evaluated the patient independently. Discussed case with Karen ASCENCIO. I personally reviewed their note and agree with their history, exam, and plan of care. All laboratory and images personally reviewed. Chart reviewed, including documentation from previous hospitalizations and sales consultant insurance recommendations as summarized below. Briefly, patient with history of kidney stone, recurrent UTI, urinary retention. Presented with N/V and abdominal pain. Exam with vague abd pain without rebound or guarding. CT with known nephrolithiasis, bladder wall thicken. UA convincing for UTI. Prior cultures reviewed with recent klebsiella (two strains) and e coli. All sensitive to cefazolin, changed from ceftriaxone to this. If symptomatically improved with UTI treatment home in AM. Patient seen and examined 11/17/19.documented in this encounter [facility] History and Physical Note 12/06/19 Luli Johnson 1990 [id number] Assessment/Plan: Luli Johnson is a 29 y.o. female with a history of alopecia, anxiety/depression, IBS-C, ADD, and kidney stones with recent [facility] admission (11/16-) with bilateral flank pain, treated for UTI. She presented to [facility] 12/05/2019 with right-sided flank pain. COVID neg. 1. Nephrolithiasis: third visit over the past week for right-sided flank pain, has known right sided nephrolithiasis for which she follows with Dr. Zuñiga (Urology). S/p ureteroscopy on 10/31/19 with stent placement, stent removed 11/05/19. Recent CT kidney stone 11/28/19 with 4.6 mm renal calculus without evidence of obstruction. Renal US with no hydronephrosis, small echogenic structure within right aspect of bladder measuring 8mm potentially representing bladder calculus, possibly having passed from right kidney. Ordered PRN IV morphine for pain control, monitor respiratory status closely. IVFs, strain all urine. Given intractable pain and failure of outpatient management, consulted Urology. 2. Acute UTI: urine culture 11/28/19 +E coli. Prescribed Keflex outpatient which was started on 12/05/19, however given R flank pain concerning for early pyelo, transitioned to IV Rocephin, deescalate as able. 3. Intractable N/V: Given IV zofran in ED with improvement. Continue supportive care with IVFs, antiemetics. 4. Urinary Retention: per hx. Follows with Dr. Zuñiga (Urology). Continued bethanechol. 5. Bacterial Vaginosis: recently diagnosed, continued Flagyl (stop date 12/06/19). 6. Anxiety/Depression: per hx. Continued home abilify and cogentin. 7. DVT Prophylaxis: Low risk, ambulate Current living situation: Lives with mother Expected Disposition: Same Estimated discharge date: 1-2 days Chief Complaint: Right-sided flank pain History of Present Illness: Luli Johnson is a 29 y.o. female with a history of anxiety/depression, IBS-C, ADD who presented to [facility] 12/05/2019 with right-sided flank pain. Patient stated she was recently seen in October fo similar complaints and had a stone removed with stent placement, stent was removed 11/05/19 due to discomfort. Stated she developed worsening right flank pain about 2-3 days ago and has continued to get progressively more severe. Endorsed dysuria. Hasn't been able to keep anything down for the past week due to continuous nausea and vomiting, stating she has had an average of 7 episodes of vomiting daily for the past several days. No hematemesis. Currently being treated for bacterial vaginosis with flagy. Patient is new to me. Today I personally did a review of prior medical records and have summarized my findings in my assessment and plan as noted. Today I also reviewed recent labs, diagnostics, vitals including pulse ox, and sales consultant insurance/other provider recommendations. Discussed with Dr. Lee ([facility] attending), final attestation to follow. ROS: 10 systems were reviewed and negative, except as noted above. Past Medical, Surgical, Social, Family History: Past Medical History: Diagnosis Date ADD (attention deficit disorder) Alopecia Alopecia areata Anxiety with depression Eczema Hypotension IBS (irritable bowel syndrome) Irregular menstrual cycle Mental disorder DEPRESSION AND ANGER ISSUE,ANXIETY Neoplasm of pituitary gland Preeclampsia Vasovagal syncope Past Surgical History: Procedure Laterality Date CYSTO MAGGI LASER, RETRO, URETEROSCOPY, STENT (USUAL) Right 10/31/2019 Procedure: CYSTOSCOPY,RIGHT RETROGRADE PYELOGRAM, RIGHT URETEROSOCPY,; basket stone extraction RIGHT URETERAL STENT PLACEMENT; Surgeon: Yan Zuñiga MD; Location: [facility] Main OR; Service: Urology CYSTO RETRO STONE MANIPULATION STENT INSERTION Right 11/05/2019 Procedure: CYSTOSCOPY WITH RIGHT STENT REMOVAL; Surgeon: Yan Zuñiga MD; Location: [facility] Main OR; Service: Urology OTHER SURGICAL HISTORY wisdom teeth Social History Socioeconomic History Marital status: Single Spouse name: Not on file Number of children: Not on file Years of education: Not on file Highest education level: Not on file Occupational History Not on file Social Needs Financial resource strain: Not on file Food insecurity Worry: Not on file Inability: Not on file Transportation needs Medical: Not on file Non-medical: Not on file Tobacco Use Smoking status: Never Smoker Smokeless tobacco: Never Used Substance and Sexual Activity Alcohol use: No Drug use: No Sexual activity: Yes Partners: Male Lifestyle Physical activity Days per week: Not on file Minutes per session: Not on file Stress: Not on file Relationships Social connections Talks on phone: Not on file Gets together: Not on file Attends faith service: Not on file Active member of club or organization: Not on file Attends meetings of clubs or organizations: Not on file Relationship status: Not on file Other Topics Concern Not on file Social History Narrative Not on file Family History Problem Relation Age of Onset Hypertension Mother Hypertension Maternal Grandfather Home Medications: Outpatient Medications as of 12/05/2019 Medication Sig ARIPiprazole (ABILIFY) 5 MG tablet Take 5 mg by mouth nightly . ascorbate calcium (VITAMIN C ORAL) Take 1 tablet by mouth daily . benztropine (COGENTIN) 0.5 MG tablet Take 0.5 mg by mouth every evening . bethanechol (URECHOLINE) 10 MG tablet Take 1 (one) tablet (10 mg total) by mouth 3 (three) times a day . bran/gum/fib/daniel/psyl/kelp/pec (FIBER 6 ORAL) Take 3 tablets by mouth daily Benifiber chew . cephALEXin (KEFLEX) 500 MG capsule Take 500 mg by mouth 2 (two) times a day For 5 days . cholecalciferol, vitamin D3, (VITAMIN D3 ORAL) Take 1 tablet by mouth daily . dicyclomine (BENTYL) 10 MG capsule metoclopramide (REGLAN) 5 MG tablet Take 1 (one) tablet (5 mg total) by mouth 3 (three) times a day as needed . metroNIDAZOLE (FLAGYL) 500 MG tablet Take 1 (one) tablet (500 mg total) by mouth 2 (two) times a day with meals for 7 days . naproxen (NAPROSYN) 250 MG tablet Take 250 mg by mouth 2 (two) times a day as needed . vitamin with Ca-Iron-FA 27-1 mg Tab Take 1 tablet by mouth every morning . Physical Exam: BP 118/84 (BP Location: Right arm, Patient Position: Sitting) Pulse 92 Temp 98.4 F (36.9 C) (Oral) Resp 18 Ht 5' Wt 55.3 kg (122 lb) LMP 11/07/2019 SpO2 99% BMI 23.83 kg/m General: NAD Eyes: EOMI ENT: neck supple Cardiovascular: Regular rate. Respiratory: Clear to auscultation. Gastrointestinal: Soft, non tender, non distended, bowel sounds active. Genitourinary: suprapubic tenderness, R flank tenderness. Musculoskeletal: No edema. Skin: warm, dry Neuro: Alert and oriented x 4. No focal deficits. Psych: Mood appropriate. Labs, Imaging, and Studies reviewed: Results from last 7 days Lab Units 12/05/19 1824 WBC K/mcL 6.07 HGB g/dL 12.3 HCT % 37.9 PLT K/mcL 268 Results from last 7 days Lab Units 12/05/19 1824 SODIUM mmol/L 145 POTASSIUM mmol/L 3.9 CHLORIDE mmol/L 108 BICARB mmol/L 25 BUN mg/dL 15 CREATININE mg/dL 0.72 EGFR mL/min/1.73 m2 114 GLUCOSE mg/dL 86 Associated attestation - Arely Lee MD - 12/06/2019 6:38 AM EDT I have independently seen and examined the patient in conjunction with Monica Little(GARAGE LABORER). I agree with the assessment and plan as noted below with the addition of the following: A 29yo female with left flank pain and E.coli UTI. CT showed she passed the 7mm stone to the bladder. Pt non toxic appearance. VSS. WBC stable. Labs and images reviewed. A/p Treat for acute E.coli UTI and bacterial vaginosis as planned. If stable able to dc am. Other medical problems reviewed and plan per GARAGE LABORER.documented in this encounter Loretta Sierra MSW - 10/25/2019 10:58 PM EDTDamion Rahman MD - 11/01/2019 12:35 PM Damion Frazier MD - 2019 10:23 AM EDTEyad Charlton PT - 11/05/2019 12:16 PM EDT Consult Notes (unrecognized section and content) Associated Order(s): ED CONSULT TO MEDICAL - ELECTRICIAN CHIEF COMPLEX DISCHARGE Date: 10/25/2019 Time: 10:59 PM Patient Name: Luli Johnson Date of : 1990 Sex: Female FABIAN notified that patient needs assistance with transportation home. Patient has utilized all allowable insurance transportation ride. FABIAN attempted to schedule [employer], however they do not have drivers working this evening. Patient updated. Discussed alternative methods of transportation with patient, including family. Patient reports her mother is currently working and unable to transport her. Discussed [employer] and/or [employer]. Patient reluctant to use LYFT due to expense. This worker explained that this is only option unless she would like to reach out to family/friend. Patient reports that she will schedule [employer]. Patient getting on LYFT brian as this worker left room. [facility] Disposition D/C Disposition: Home Agency/Destination: Home Same As Recommended : yes Transportation Type: Other (Comment)(LYFT) Options Reviewed: Possible expense Reason for Choice: Only available provider documented in this encounter Associated Order(s): IP CONSULT TO UROLOGY Patient Name: Luli Johnson Admit Date: MR #: [id number] : 1990 Physicians: Mercedez Cotto CNP (Family); ARPIT Alvarez (Referring) Chief Complaint/Reason for Visit: Abdominal pain and hematuria History of Present Illness: This is a 28-year-old female who 2 days ago underwent right ureteroscopy with laser lithotripsy of calculi and stent placement with Dr. Zuñiga. She presents with complaint of abdominal pain and gross hematuria. She is also having some dizziness. She has had no direct fever. Urology is consulted for input and management History: Past Medical History: Diagnosis Date ADD (attention deficit disorder) Alopecia Alopecia areata Anxiety with depression Eczema Hypotension IBS (irritable bowel syndrome) Irregular menstrual cycle Mental disorder DEPRESSION AND ANGER ISSUE,ANXIETY Neoplasm of pituitary gland Preeclampsia Vasovagal syncope Past Surgical History: Procedure Laterality Date CYSTO MAGGI LASER, RETRO, URETEROSCOPY, STENT (USUAL) Right 10/31/2019 Procedure: CYSTOSCOPY,RIGHT RETROGRADE PYELOGRAM, RIGHT URETEROSOCPY,; basket stone extraction RIGHT URETERAL STENT PLACEMENT; Surgeon: Yan Zuñiga MD; Location: [facility] Main OR; Service: Urology OTHER SURGICAL HISTORY wisdom teeth Family History Problem Relation Age of Onset Hypertension Mother Hypertension Maternal Grandfather Social History Socioeconomic History Marital status: Single Spouse name: Not on file Number of children: Not on file Years of education: Not on file Highest education level: Not on file Occupational History Not on file Social Needs Financial resource strain: Not on file Food insecurity Worry: Not on file Inability: Not on file Transportation needs Medical: Not on file Non-medical: Not on file Tobacco Use Smoking status: Never Smoker Smokeless tobacco: Never Used Substance and Sexual Activity Alcohol use: No Drug use: No Sexual activity: Yes Partners: Male Lifestyle Physical activity Days per week: Not on file Minutes per session: Not on file Stress: Not on file Relationships Social connections Talks on phone: Not on file Gets together: Not on file Attends faith service: Not on file Active member of club or organization: Not on file Attends meetings of clubs or organizations: Not on file Relationship status: Not on file Other Topics Concern Not on file Social History Narrative Not on file Allergy Information: I have reviewed the patient's allergies. Cat dander, Ciprofloxacin-hydrocortisone, Tree nuts, Sulfasalazine, Ciprofloxacin, Diphenhydramine, Diphenhydramine hcl, Hydrocortisone, Sulfa (sulfonamide antibiotics), and Sulfamethoxazole-trimethoprim Home Medications: Outpatient Medications as of 11/01/2019 Medication Sig ARIPiprazole (ABILIFY) 5 MG tablet Take 5 mg by mouth nightly . ascorbate calcium (VITAMIN C ORAL) Take 1 tablet by mouth daily . benztropine (COGENTIN) 0.5 MG tablet Take 0.5 mg by mouth every evening . bran/gum/fib/daniel/psyl/kelp/pec (FIBER 6 ORAL) Take 3 tablets by mouth daily Benifiber chew . cephALEXin (KEFLEX) 500 MG capsule Take 1 (one) capsule (500 mg total) by mouth 3 (three) times a day for 7 days . cholecalciferol, vitamin D3, (VITAMIN D3 ORAL) Take 1 tablet by mouth daily . fluconazole (Diflucan) 150 MG tablet Take 1 (one) tablet (150 mg total) by mouth once as needed (may repeat in 3 days) . HYDROcodone-acetaminophen (NORCO) 5-325 mg per tablet Take 1 (one) tablet by mouth every 6 (six) hours as needed for pain (Days supply per fill: 3) . ondansetron (ZOFRAN-ODT) 4 MG disintegrating tablet Dissolve 1 (one) tablet (4 mg total) on top of tongue every 6 (six) hours as needed . vitamin with Ca-Iron-FA 27-1 mg Tab Take 1 tablet by mouth every morning . dicyclomine (BENTYL) 10 MG capsule Take 1 (one) capsule (10 mg total) by mouth 3 (three) times a day as needed (Abdominal cramping) . medroxyPROGESTERone (PROVERA) 10 MG tablet TAKE ONE TABLET BY MOUTH DAILY FOR 10 DAYS naproxen (NAPROSYN) 250 MG tablet Take 250 mg by mouth 2 (two) times a day as needed . polyethylene glycol (MIRALAX) 17 gram powder Take 17 (seventeen) g by mouth daily as needed (Constipation) . (Patient not taking: Reported on 10/29/2019 .) tamsulosin (FLOMAX) 0.4 mg capsule Take 1 (one) capsule (0.4 mg total) by mouth daily for 14 days . Review of Systems: The following system(s) were reviewed and pertinent findings noted: Constitutional Eyes ENT CV Resp Neuro Skin Musc Endo Heme/Lym Allergy Psych Physical Examination: Vital Signs: BP 118/87 (BP Location: Left arm, Patient Position: Lying) Pulse 86 Temp 98.6 F (37 C) (Oral) Resp (!) 20 Ht 5' Wt 59 kg (130 lb) LMP 10/07/2019 SpO2 99% BMI 25.39 kg/m BP 118/87 (BP Location: Left arm, Patient Position: Lying) Pulse 86 Temp 98.6 F (37 C) (Oral) Resp (!) 20 Ht 5' Wt 59 kg (130 lb) LMP 10/07/2019 SpO2 99% BMI 25.39 kg/m General appearance: alert, appears stated age and cooperative Head: Normocephalic, without obvious abnormality, atraumatic Eyes: conjunctivae/corneas clear. PERRL, EOM's intact. Fundi benign. Ears: normal TM's and external ear canals both ears Nose: Nares normal. Septum midline. Mucosa normal. No drainage or sinus tenderness. Throat: lips, mucosa, and tongue normal; teeth and gums normal Neck: no adenopathy, no carotid bruit, no JVD, supple, symmetrical, trachea midline and thyroid not enlarged, symmetric, no tenderness/mass/nodules Back: symmetric, no curvature. ROM normal. No CVA tenderness. Lungs: clear to auscultation bilaterally Heart: regular rate and rhythm, S1, S2 normal, no murmur, click, rub or gallop Abdomen: soft, non-tender; bowel sounds normal; no masses, no organomegaly Extremities: extremities normal, atraumatic, no cyanosis or edema Pulses: 2+ and symmetric Skin: Skin color, texture, turgor normal. No rashes or lesions Lymph nodes: Cervical, supraclavicular, and axillary nodes normal. Neurologic: Grossly normal Laboratory and Additional Data Reviewed: Laboratory 11/01/19 12:38 PM Microbiology 11/01/19 12:38 PM Radiology 11/01/19 12:38 PM Medications 11/01/19 12:38 PM Assessment and Plan/Recommendations: Luli Johnson is a 28 y.o. y/o female presenting with stent colic and hematuria status post ureteroscopy with laser of kidney stones. Much of this is to be expected. She is also having some nausea. Agree with short-term admission for hydration and to get control of her discomfort. Would add an anti-inflammatory to the narcotic pain medicine. Control nausea. Once comfortable can be discharged home. The stent is scheduled to be removed next Tuesday with Dr. Zuñiga. No new Assessment & Plan notes have been filed under this hospital service since the last note was generated. Service: Urology Assessment Detail: The total time spent for this visit was 50 minutes. Greater than 50% of the time was spent in counseling and coordination of care regarding stent colic and hematuria. documented in this encounter Associated Order(s): IP CONSULT TO UROLOGY Patient Name: Luli Johnson Admit Date: MR #: [id number] : 1990 Physicians: Mercedez Cotto CNP (Family); ARPIT Benoit (Referring) Chief Complaint/Reason for Visit: Stent colic History of Present Illness: This is a 28-year-old female status post ureteroscopy with laser of stone last week and stent placement. She has had poor stent tolerance. She has had issues with stent colic and nausea off and on. She is readmitted once again with complaint of right flank pain. X-ray shows that the stent is in good position. There is no signs of significant infection. She is afebrile. Urine culture 11/02/2019 was negative. She has had some persistent hematuria and dysuria. This morning she states she is once again comfortable and doing much better. She admits that some of this is related to her anxiety around the surgery and having the stent in place. She is due to see Dr. Zuñiga in 2 days to have the stent removed. She states now she is feeling better and would like to consider going home. History: Past Medical History: Diagnosis Date ADD (attention deficit disorder) Alopecia Alopecia areata Anxiety with depression Eczema Hypotension IBS (irritable bowel syndrome) Irregular menstrual cycle Mental disorder DEPRESSION AND ANGER ISSUE,ANXIETY Neoplasm of pituitary gland Preeclampsia Vasovagal syncope Past Surgical History: Procedure Laterality Date CYSTO MAGGI LASER, RETRO, URETEROSCOPY, STENT (USUAL) Right 10/31/2019 Procedure: CYSTOSCOPY,RIGHT RETROGRADE PYELOGRAM, RIGHT URETEROSOCPY,; basket stone extraction RIGHT URETERAL STENT PLACEMENT; Surgeon: Yan Zuñiga MD; Location: [facility] Main OR; Service: Urology OTHER SURGICAL HISTORY wisdom teeth Family History Problem Relation Age of Onset Hypertension Mother Hypertension Maternal Grandfather Social History Socioeconomic History Marital status: Single Spouse name: Not on file Number of children: Not on file Years of education: Not on file Highest education level: Not on file Occupational History Not on file Social Needs Financial resource strain: Not on file Food insecurity Worry: Not on file Inability: Not on file Transportation needs Medical: Not on file Non-medical: Not on file Tobacco Use Smoking status: Never Smoker Smokeless tobacco: Never Used Substance and Sexual Activity Alcohol use: No Drug use: No Sexual activity: Yes Partners: Male Lifestyle Physical activity Days per week: Not on file Minutes per session: Not on file Stress: Not on file Relationships Social connections Talks on phone: Not on file Gets together: Not on file Attends faith service: Not on file Active member of club or organization: Not on file Attends meetings of clubs or organizations: Not on file Relationship status: Not on file Other Topics Concern Not on file Social History Narrative Not on file Allergy Information: I have reviewed the patient's allergies. Cat dander, Ciprofloxacin-hydrocortisone, Tree nuts, Sulfasalazine, Ciprofloxacin, Diphenhydramine, Diphenhydramine hcl, Hydrocortisone, Sulfa (sulfonamide antibiotics), and Sulfamethoxazole-trimethoprim Home Medications: Outpatient Medications as of 11/03/2019 Medication Sig ARIPiprazole (ABILIFY) 5 MG tablet Take 5 mg by mouth nightly . ascorbate calcium (VITAMIN C ORAL) Take 1 tablet by mouth daily . benztropine (COGENTIN) 0.5 MG tablet Take 0.5 mg by mouth every evening . bran/gum/fib/daniel/psyl/kelp/pec (FIBER 6 ORAL) Take 3 tablets by mouth daily Benifiber chew . cephALEXin (KEFLEX) 500 MG capsule Take 1 (one) capsule (500 mg total) by mouth 3 (three) times a day for 7 days . cholecalciferol, vitamin D3, (VITAMIN D3 ORAL) Take 1 tablet by mouth daily . fluconazole (Diflucan) 150 MG tablet Take 1 (one) tablet (150 mg total) by mouth once as needed (may repeat in 3 days) . [] HYDROcodone-acetaminophen (NORCO) 5-325 mg per tablet Take 1 (one) tablet by mouth every 6 (six) hours as needed for pain (Days supply per fill: 3) . naproxen (NAPROSYN) 250 MG tablet Take 250 mg by mouth 2 (two) times a day as needed . vitamin with Ca-Iron-FA 27-1 mg Tab Take 1 tablet by mouth every morning . tamsulosin (FLOMAX) 0.4 mg capsule Take 1 (one) capsule (0.4 mg total) by mouth daily for 14 days . Review of Systems: The following system(s) were reviewed and pertinent findings noted: Constitutional Eyes ENT CV Resp Neuro Skin Musc Endo Heme/Lym Allergy Psych Physical Examination: Vital Signs: BP 109/72 (BP Location: Right arm, Patient Position: Lying) Pulse (!) 102 Temp 98.1 F (36.7 C) (Oral) Resp 16 Ht 5' Wt 55.8 kg (123 lb) LMP 10/07/2019 SpO2 100% BMI 24.02 kg/m BP 109/72 (BP Location: Right arm, Patient Position: Lying) Pulse (!) 102 Temp 98.1 F (36.7 C) (Oral) Resp 16 Ht 5' Wt 55.8 kg (123 lb) LMP 10/07/2019 SpO2 100% BMI 24.02 kg/m General appearance: alert, appears stated age and cooperative Head: Normocephalic, without obvious abnormality, atraumatic Eyes: conjunctivae/corneas clear. PERRL, EOM's intact. Fundi benign. Ears: normal TM's and external ear canals both ears Nose: Nares normal. Septum midline. Mucosa normal. No drainage or sinus tenderness. Throat: lips, mucosa, and tongue normal; teeth and gums normal Neck: no adenopathy, no carotid bruit, no JVD, supple, symmetrical, trachea midline and thyroid not enlarged, symmetric, no tenderness/mass/nodules Back: symmetric, no curvature. ROM normal. No CVA tenderness. Lungs: clear to auscultation bilaterally Heart: regular rate and rhythm, S1, S2 normal, no murmur, click, rub or gallop Abdomen: soft, non-tender; bowel sounds normal; no masses, no organomegaly Extremities: extremities normal, atraumatic, no cyanosis or edema Pulses: 2+ and symmetric Skin: Skin color, texture, turgor normal. No rashes or lesions Lymph nodes: Cervical, supraclavicular, and axillary nodes normal. Neurologic: Grossly normal Laboratory and Additional Data Reviewed: Laboratory 11/04/19 10:26 AM Microbiology 11/04/19 10:26 AM Radiology 11/04/19 10:26 AM Medications 11/04/19 10:26 AM Assessment and Plan/Recommendations: Luli Johnson is a 28 y.o. y/o female presenting with history of recent ureteroscopy and laser lithotripsy of right ureteral calculus and stent placement. She has had poor stent tolerance. Today she states she is feeling better. She believes she can make it 2 more days before she will have the stent removed in the office with Dr. Zuñiga. Okay to discharge home. Follow-up in 2 days for stent removal with Dr. Zuñiga. Continue oral pain medicine, Flomax, and hydration. No new Assessment & Plan notes have been filed under this hospital service since the last note was generated. Service: Urology Assessment Detail: The total time spent for this visit was 50 minutes. Greater than 50% of the time was spent in counseling and coordination of care regarding ureteral stent pain and hematuria. documented in this encounter Physical Therapy PHYSICAL THERAPY EVALUATION NOTE Skilled Therapy Needs After Discharge Anticipate Resolution of Current Assessment Limitations Including: (N/A) Are Skilled Therapy Services Needed After Discharge: Yes Intensity of Skilled Therapy: 2-3 days per week Anticipated Duration of Skilled Therapy: Duration 10 - 30 days DME Recommendation: Wheeled walker(shower chair) DME Rationale: Patient's condition creates an increased risk of safety hazard without recommended equipment, Patient's condition prevents him/her from accomplishing ADL without recommended equipment Outcomes Measures Prior Function - Basic Mobility Raw Score: 24 Points Prior Function - Basic Mobility % Impaired: 0% functionally impaired AM-PAC - Basic Mobility Raw Score: 18 Points AM-PAC - Basic Mobility % Impaired: 40.47% functionally impaired Physical Therapy Assessment History: The following factors influence the patient's participation in the PT plan of care: Personal Factors: Decreased Insight Environmental Factors: Multi-level home, Steps to enter home The following co-morbidities (from this admission or prior) influence the patient's participation in this plan of care: ADD, anxiety with depression, hypotension, IBS, mental disorder- depression and anger issue, vasovagal syncope. Number of History elements affecting this patient's PT plan of care: 3 or more Examination of Body Systems: The patient presents with: Musculoskeletal impairments: (N/A) Neurologic Impairments: Balance Cardiopulmonary Impairments: Activity Tolerance. These impairments result in limitations of Gait, Functional Transfers, Stair-Climbing, Safety, Activity Tolerance, Insight, Safety Awareness. These impairments result in restrictions of Household mobility, Community mobility, Leisure activities. Number of Body Systems elements affecting this patient's PT plan of care: 4 or more. Clinical Presentation: The patient's clinical presentation for this PT evaluation is unstable as evidenced by current PT documentation. Activity Tolerance Activity Tolerance: Tolerates 10 - 20 min activity with multiple rests Therapy Precautions Orthotic Devices: No General Rehab Precautions: Fall risk Balance Sitting Balance - Static: (independent without support) Sitting Balance - Dynamic: (independent without support) Standing Balance - Static: (MIN Assist without UE support. SBA with w/w.) Standing Balance - Dynamic: (CGA with w/w.) Patient stood initially without UE support but had repeated sudden posterior LOBs that were corrected by PT. Patient then stood with L handheld assist but continued to have sudden abrupt LOBs posteriorly. When standing with w/w, patient had no LOBs. Bed Mobility Supine to Sit: Supervision Sit to Supine: Independent Transfers Sit to Stand: Contact guard(x1 without A/D & x1 with w/w) Rn Iv Therapy: Gait belt Gait/Locomotion Gait Assistance: Contact guard Assistive Device: Wheeled walker Distance: 50 Feet(Patient self-limited gait per c/o fatigue.) Pattern: R decreased step length, L decreased step length, Over reliance on upper extremities(slow speed) Home Living Type of Home: House Home Layout: Two level, Stairs to enter with rails(2-stories (about 20 steps) to enter) Bathroom Shower/Tub: Walk-in shower Bathroom Toilet: Standard Home Equipment: (none) Prior Level of Function Level of [place]: Independent with ADLs and functional transfers, Independent with homemaking with ambulation(family transports patient as she doesn't drive) Lives With: Family(mother- works during day but off Wednesdays) Comments: Patient reports she has had an issue with syncope for multiple years. She said that about 1-2x/week, she feels dizzy and needs to sit quickly or she will fall. Patient notes she often feels dizzy while bathing. Patient doesn't drive because of this random sudden onset of dizziness. Past Medical History: Diagnosis Date ADD (attention deficit disorder) Alopecia Alopecia areata Anxiety with depression Eczema Hypotension IBS (irritable bowel syndrome) Irregular menstrual cycle Mental disorder DEPRESSION AND ANGER ISSUE,ANXIETY Neoplasm of pituitary gland Preeclampsia Vasovagal syncope Past Surgical History: Procedure Laterality Date CYSTO MAGGI LASER, RETRO, URETEROSCOPY, STENT (USUAL) Right 10/31/2019 Procedure: CYSTOSCOPY,RIGHT RETROGRADE PYELOGRAM, RIGHT URETEROSOCPY,; basket stone extraction RIGHT URETERAL STENT PLACEMENT; Surgeon: Yan Zuñiga MD; Location: [facility] Main OR; Service: Urology OTHER SURGICAL HISTORY wisdom teeth PHYSICAL THERAPY TREATMENT NOTE Total Treatment Time (Total Session Time): 34 Minutes Timed Code Treatment Minutes: 10 Minutes Gait Training Skilled Intervention: PT educated patient re: safe mobility strategies including pausing upon standing up until making sure she feels good and not dizzy prior to mobilizing away from surface from which she stood. PT instructed and cued patient re: safe use of w/w including keeping her body within confines of w/w. PT also cued patient throughouta ambulation re: elevating her gaze. Patient without any LOBs when using w/w. Therapeutic Activities Transfers Skilled Intervention: PT instructed and cued patient re: positioning and sequencing of movements to transfer safely with w/w. For complete objective data, detailed plan of care and patient education refer to: PT EVALUATION flow sheet, PT TREATMENT flow sheet, patient Plan of Care, Plan of Care progress note, and Patient Education. This note stands as the current Discharge Summary upon patient discharge from the hospital or completion of Physical Therapy Plan Associated Order(s): IP CONSULT TO UROLOGY CONSULT NOTE Patient Name: Luli Johnson Admit Date: MR #: [id number] : 1990 Assessment and Plan: Right Stent/Ureteral Colic Nephrolithiasis Abnormal UA - Xray 11/03/19: There has been interval placement of a right ureteral stent which appears appropriately position - CT A/P 11/04/19: Right ureteral stent is present. There is mild dilatation of the right intrarenal collecting system and right ureter without associated stone along the course of the right ureter. There is a 3.5 mm nonobstructive right intrarenal calculus. Findings may reflect underlying stent dysfunction. - Admit UA with hematuria, mild pyuria and heavy proteinuria. Patient reports dysuria. UCx 10/24 with E. Coli and pt completed course of Keflex. UCx 11/01 with NGTD. Repeat UCx 11/03 pending. On admit started Ancef, discontinue if urine culture is negative. - Patient is presenting for the third time for ongoing right ureteral stent intolerance. S/p URS with right stent placement on 10/31/[address] Zuñiga. Patient is scheduled to see in office tomorrow for right stent removal, however, with continued stent intolerance, would prefer for stent removal today. - Discussed with Dr. Zuñiga. Will plan for OR today for cystoscopy with right ureteral stent removal - Keep NPO Assessment Detail: The total time spent for this visit was 50 minutes. Greater than 50% of the time was spent in counseling and coordination of care regarding right ureteral stent intolerance, abnormal UA, and right-sided nephrolithiasis. Thank you for this consult and allowing me to participate in your patient care. If you have any further questions, please don't hesitate to call. Nichelle Barber PA-C [facility] Urology Physicians Physicians: Mercedez Cotto, GARAGE LABORER (Family); No ref. provider found (Referring) Chief Complaint/Reason for Visit: Chief Complaint Patient presents with Emesis History of Present Illness: Luli Johnson is a 29 y.o. female with a history of nephrolithiasis, vasovagal syncope, IBS-C, and depression/anxiety with recent lithotripsy and right ureteral stent placement 10/30 with multiple subsequent [facility] OBS admission for pain control and vomiting with CT A/P 11/03 non-acute who presented to [facility] 2019 with continued vomiting and right flank pain. Urology re-consulted. S/p ureteroscopy with laser of stone last week (10/31/19) and right ureteral stent placement with Dr. Zuñiga. She has had poor stent tolerance. She has had issues with stent colic and nausea off and on. She is readmitted for the third time with complaint of right flank and groin pain. She was discharged yesterday from OBS unit after she felt comfortable going home , and then represented to ED yesterday evening. Reported had syncopal episode while urinating at home. X-ray shows that the stent is in good position. She is afebrile. Urine culture 11/02/2019 was negative. UA on admit abnormal. Repeat urine culture on 10/24. She has had some persistent hematuria and dysuria. She admits that some of this is related to her anxiety around the surgery and having the stent in place. Patient is due to see Dr. Zuñiga in tomorrow to have the stent removed. Patient states that she prefers to have her right ureteral stent removed in the OR because she feels that she will faint if she has a procedure done while awake/ at bedside. She has had some sips of water this AM, otherwise has been NPO. Denies fevers or chills. Syncope is chronic for ~1 year with 1-2x episodes per week. Denied chest pain or shortness of breath. History: Past Medical History: Diagnosis Date ADD (attention deficit disorder) Alopecia Alopecia areata Anxiety with depression Eczema Hypotension IBS (irritable bowel syndrome) Irregular menstrual cycle Mental disorder DEPRESSION AND ANGER ISSUE,ANXIETY Neoplasm of pituitary gland Preeclampsia Vasovagal syncope Past Surgical History: Procedure Laterality Date CYSTO MAGGI LASER, RETRO, URETEROSCOPY, STENT (USUAL) Right 10/31/2019 Procedure: CYSTOSCOPY,RIGHT RETROGRADE PYELOGRAM, RIGHT URETEROSOCPY,; basket stone extraction RIGHT URETERAL STENT PLACEMENT; Surgeon: Yan Zuñiga MD; Location: [facility] Main OR; Service: Urology OTHER SURGICAL HISTORY wisdom teeth Family History Problem Relation Age of Onset Hypertension Mother Hypertension Maternal Grandfather Social History Socioeconomic History Marital status: Single Spouse name: Not on file Number of children: Not on file Years of education: Not on file Highest education level: Not on file Occupational History Not on file Social Needs Financial resource strain: Not on file Food insecurity Worry: Not on file Inability: Not on file Transportation needs Medical: Not on file Non-medical: Not on file Tobacco Use Smoking status: Never Smoker Smokeless tobacco: Never Used Substance and Sexual Activity Alcohol use: No Drug use: No Sexual activity: Yes Partners: Male Lifestyle Physical activity Days per week: Not on file Minutes per session: Not on file Stress: Not on file Relationships Social connections Talks on phone: Not on file Gets together: Not on file Attends faith service: Not on file Active member of club or organization: Not on file Attends meetings of clubs or organizations: Not on file Relationship status: Not on file Other Topics Concern Not on file Social History Narrative Not on file Allergy Information: I have reviewed the patient's allergies. Cat dander, Ciprofloxacin-hydrocortisone, Tree nuts, Sulfasalazine, Ciprofloxacin, Diphenhydramine, Diphenhydramine hcl, Hydrocortisone, Sulfa (sulfonamide antibiotics), and Sulfamethoxazole-trimethoprim Home Medications: Outpatient Medications as of 11/05/2019 Medication Sig ARIPiprazole (ABILIFY) 5 MG tablet Take 5 mg by mouth nightly . ascorbate calcium (VITAMIN C ORAL) Take 1 tablet by mouth daily . benztropine (COGENTIN) 0.5 MG tablet Take 0.5 mg by mouth every evening . bran/gum/fib/daniel/psyl/kelp/pec (FIBER 6 ORAL) Take 3 tablets by mouth daily Benifiber chew . cephALEXin (KEFLEX) 500 MG capsule Take 1 (one) capsule (500 mg total) by mouth 3 (three) times a day for 7 days . cholecalciferol, vitamin D3, (VITAMIN D3 ORAL) Take 1 tablet by mouth daily . fluconazole (Diflucan) 150 MG tablet Take 1 (one) tablet (150 mg total) by mouth once as needed (may repeat in 3 days) . naproxen (NAPROSYN) 250 MG tablet Take 250 mg by mouth 2 (two) times a day as needed . vitamin with Ca-Iron-FA 27-1 mg Tab Take 1 tablet by mouth every morning . tamsulosin (FLOMAX) 0.4 mg capsule Take 1 (one) capsule (0.4 mg total) by mouth daily for 14 days . Review of Systems: The following system(s) were reviewed and are negative unless otherwise noted in the HPI: Constitutional CV Resp GI Physical Examination: Vital Signs: BP 114/73 Pulse 85 Temp 98.3 F (36.8 C) (Oral) Resp 14 Ht 5' Wt 56.7 kg (125 lb) LMP 10/07/2019 SpO2 100% BMI 24.41 kg/m General appearance: alert, cooperative and no distress Head: Normocephalic, without obvious abnormality, atraumatic Eyes: conjunctivae/corneas clear Neck: supple, symmetrical, trachea midline Back: Right CVA tenderness, no Left CVA tenderness Lungs: Normal respiratory effort. Non-labored breathing. Heart: regular rate and rhythm Abdomen: soft, non-distended, RLQ TTP, right groin TTP Extremities: No edema or cyanosis Skin: Warm, dry Neurologic: Grossly normal Psych: Mood appropriate : Purewick in place with red urine Laboratory and Additional Data Reviewed: I have personally reviewed all labs and imaging below and agree with interpretation. Results from last 7 days Lab Units 11/05/19 03011/04/19204111/03/192053 SODIUM mmol/L 137 138 140 POTASSIUM mmol/L 3.3* 3.5 3.6 CHLORIDE mmol/L 104 106 108 BUN mg/dL 6* 9 13 CREATININE mg/dL 0.51 0.58 0.50 GLUCOSE mg/dL 84 87 88 CALCIUM mg/dL 9.1 9.3 9.2 Results from last 7 days Lab Units 11/05/19 03011/04/19204111/03/19205311/01/19 0655 WBC K/mcL 6.07 6.64 7.70 6.72 HGB g/dL 10.5* 10.6* 11.2* 11.8* HCT % 32.8* 32.1* 34.6* 36.4 PLT K/mcL 204 217 205 194 MONOS% % -- 6.6 6.6 7.9 Lab Results Component Value Date COLORUR Red (A) 2019 CLARITYUR Cloudy (A) 2019 SPECGRAV 1.018 2019 PHUR 8.0 (H) 2019 PROTUR >=500 (A) 2019 GLUCUR Negative 2019 KETONESU Negative 10/25/2019 BILIUR Negative 2019 BLOODUR Large (A) 2019 NITRITEUR Negative 2019 LEUKESTUR Trace (A) 2019 WBCUR 8 (H) 2019 RBCUR >180 (H) 2019 BACTUR Few (A) 2019 YEASTUR Rare (A) 10/25/2019 Lab Results Component Value Date CULTUREURN No Growth (<1,000 CFU/mL) 11/02/2019 CULTUREURN 50,000-100,000 CFU/mL Escherichia coli (A) 10/25/2019 CULTUREURN SEE NOTE 08/29/2019 CULTUREURN SEE NOTE 07/03/2019 CULTUREURN SEE NOTE 05/31/2018 CULTUREURN SEE NOTE 12/29/2017 CULTUREURN SEE NOTE 11/16/2017 CULTUREURN SEE NOTE 06/06/2017 CULTUREURN 12/15/2016 Comment: CULTURE, URINE, ROUTINE MICRO NUMBER: [id number] TEST STATUS: FINAL SPECIMEN SOURCE: URINE, CLEAN CATCH SPECIMEN QUALITY: ADEQUATE RESULT: 10,000-50,000 CFU/mL of Mixed non-uropathogenic Gram positive colette. May represent colonizers from external and internal genitalia. No further testing (including susceptibility) will be performed. CULTUREURN 09/20/2016 Comment: CULTURE, URINE, ROUTINE MICRO NUMBER: [id number] TEST STATUS: FINAL SPECIMEN SOURCE: URINE, CLEAN CATCH SPECIMEN QUALITY: ADEQUATE RESULT: 10,000-50,000 CFU/mL of Mixed non-uropathogenic Gram positive colette. May represent colonizers from external and internal genitalia. No further testing (including susceptibility) will be performed. Xr Abdomen Ap Result Date: 11/03/2019 EXAMINATION: XR ABDOMEN /KUB/FLAT PLATE/1 VIEW 11/03/2019 8:37 pm HISTORY: ORDERING SYSTEM PROVIDED HISTORY: evaluate stent placement, TECHNOLOGIST PROVIDED HISTORY: Illness/Other Reason for exam: evaluate stent placement Cancer History: no Surgery, RadiationHistory: unk Encounter Type: Initial Additional signs and symptoms: ORDERING SYSTEM PROVIDED DIAGNOSIS CODES: COMPARISON: 03/30/2018 FINDINGS: Single supine image is obtained of the abdomen. There is a 3 mm calcification overlying the right kidney, similar to previous. There has been interval placement of a right ureteral stent which appears appropriately position. There is a phlebolith within the left pelvis. There is a nonobstructive bowel gas pattern. The skeletal structures are unremarkable in appearance. Right ureteral stent placement, otherwise no significant interval change. Workstation ID: [id number] Ct Abdomen Pelvis With Iv Contrast Only Result Date: 2019 EXAMINATION: CT ABDOMEN PELVIS WITH IV CONTRAST ONLY HISTORY: ORDERING SYSTEM PROVIDED HISTORY: Nausea/vomiting, TECHNOLOGIST PROVIDED HISTORY: Illness/Other Reason for Exam: Nausea/vomiting Encounter Type: Initial Additional Signs and Symptoms: Nausea/vomiting ORDERING SYSTEM PROVIDED DIAGNOSIS CODES: Z96.0 Status post placement of ureteral stent N23 Renal colic R31.9 Hematuria, unspecified type R55 Vasovagal syncope COMPARISON: CT examination of the chest, abdomen and pelvis, 09/30/2019. TECHNIQUE: CT examination of the abdomen and pelvis following administration of 75 mL Isovue-370 intravenous contrast. Coronal and sagittal reformations are performed. Dose reduction techniques were achieved by using automated exposure control and/or adjustment of mA and/or kV according to patient size and/or use of iterative reconstruction technique. FINDINGS: Lung bases are clear. ABDOMEN: Liver is homogeneous in attenuation without evidence for focal lesion. Gallbladder is unremarkable. Spleen, adrenal glands and pancreas are unremarkable. No abdominal lymphadenopathy. Symmetric enhancement of the kidneys. 7 mm probable partially exophytic left midpole renal cortical cyst. No left hydronephrosis. No left intrarenal calculi. Right ureteral stent is present with mild dilatation of the right intrarenal collecting system. There is an intrarenal calculus measuring 3.5 mm with density of 1,223 Hounsfield units. PELVIS: There is mild dilatation of the right ureter. No stones are noted adjacent to the right ureteral stent. No bladder stone. Uterus and adnexa are unremarkable for age. Small amount of pelvic free fluid, which may be physiologic. No pelvic lymphadenopathy. No evidence for small- or large-bowel obstruction. Prominent amount of gas within small bowel with a few scattered air-fluid levels which may reflect underlying ileus. No free air. No suspicious osteolytic or osteoblastic lesion. 1. There is a prominent amount of gas within the small bowel with a few scattered air-fluid levels. Small bowel remains nondilated without discrete point of transition. Findings suggest mild ileus. 2. Right ureteral stent is present. There is mild dilatation of the right intrarenal collecting system and right ureter without associated stone along the course of the right ureter. There is a 3.5 mm nonobstructive right intrarenal calculus. Findings may reflect underlying stent dysfunction. Enhancement of the kidneys remains symmetric. 3. Small amount of pelvic free fluid, likely physiologic. [facility]Smarts Workstation ID: [id number] Associated attestation - Yan Zuñiga MD - 11/05/2019 2:30 PM EDT I have personally reviewed the history and examined the patient and agree with the findings of the physician assistant loan processor's history and physical. I have reviewed her labs and CT scan results. Her residual 3 mm stone was not visible at time of ureteroscopy. I discussed the implications of this with the patient and her mother. I concur with the assessment and plan. Will plan on stent removal in OR today. Yan Zuñiga MD [facility] Urology Physiciansdocumented in this encounter Associated Order(s): ED CONSULT TO MEDICAL - ELECTRICIAN CHIEF DISCHARGE PLAN PROGRESS NOTE Date: 11/25/2019 Time: 10:48 PM Patient Name: Luli Johnson Date of : 1990 Sex: Female INSURANCE CAB SW met with patient to review safe discharge transportation. Patient has [employer] Medicaid and is able to utilize this transportation benefit for discharge transportation needs. SW agreed to arrange transportation for patient. SW contacted [facility] and scheduled transport on behalf of the patient. SW provided patient with trip information and estimated pickup time. RN updated. Destination: [address] [place] [address] Trip Number: [id number] Pickup time: 10:49 PM - 11:49 PM MERA Adam, HIGHWAY RESEARCH ENGINEER Emergency Department Billing Supervisor [address] [id number] Desk documented in this encounter Associated Order(s): ED CONSULT TO MEDICAL - ELECTRICIAN CHIEF DISCHARGE PLAN PROGRESS NOTE Date: 11/29/2019 Time: 12:57 AM Patient Name: Luli Johnson Date of : 1990 Sex: Female FABIAN arranged transportation home with [facility] and Trip # is [id number]. documented in this encounter Associated Order(s): ED CONSULT TO MEDICAL - ELECTRICIAN CHIEF DISCHARGE PLAN PROGRESS NOTE Date: 01/23/2020 Time: 1:28 AM Patient Name: Luli Johnson Date of : 1990 Sex: Female INSURANCE CAB SW met with patient to review safe discharge transportation. Patient has [employer] Medicaid and is able to utilize this transportation benefit for discharge transportation needs. SW agreed to arrange transportation for patient. SW contacted [facility] and scheduled transport on behalf of the patient. SW provided patient with trip information and estimated pickup time. RN updated. Destination: [address] [place], [place] [id number] Company: [employer] Trip Number: [id number] Pickup time: 1:27 AM - 2:27 AM MERA Adam LSW Clinical Director Asset Billing Supervisor [address] [id number] documented in this encounter Associated Order(s): ED CONSULT TO MEDICAL - ELECTRICIAN CHIEF DISCHARGE PLAN PROGRESS NOTE Date: 01/29/2020 Time: 4:08 AM Patient Name: Luli Johnson Date of : 1990 Sex: Female INSURANCE CAB JONATHAN met with patient to review safe discharge transportation. Patient has [employer] Medicaid and is able to utilize this transportation benefit for discharge transportation needs. SW agreed to arrange transportation for patient. SW contacted [facility] and scheduled transport on behalf of the patient. SW provided patient with trip information and estimated pickup time. RN updated. Destination: [address] [place] [id number] Company: [employer] Trip Number: [id number] Pickup time: 4:08 AM - 5:08 AM MERA Adam, HARINDER Clinical Director Asset Billing Supervisor [address] [place] [address] documented in this encounter Associated Order(s): ED CONSULT TO MEDICAL - ELECTRICIAN CHIEF DISCHARGE PLAN PROGRESS NOTE Date: 04/06/2020 Time: 9:39 PM Patient Name: Luli Johnson Date of : 1990 Sex: Female FABIAN consulted to assist patient with transport at discharge. Patient is COVID + and reported to RN that she does not have anyone that is able to transport her home. Patient signed BRET to release COVID status to schedule transportation. Patient has transportation available through insurance, however insurance reports they are unable to assist with patient transport due to COVID status. [facility] contacted [employer], per dispatch, cdl team truck driver is also unable to transport patient due to COVID status. RN updated. Per RN, patient was able to arrange transport. MERA Adam, HIGHWAY RESEARCH ENGINEER Clinical Director Asset Billing Supervisor [facility] [address] [place] [address] documented in this encounter Associated Order(s): IP CONSULT TO CARE MANAGEMENT SIMPLE DISCHARGE Date: 12/07/2019 Time: 11:30 AM Patient Name: Luli Johnson Date of : 1990 Sex: Female Received consult for discharge transportation home. Noted patient has [employer] managed Medicaid. Provided bedside RN with [employer] transportation #[phone] and patient's member #. Discharge Planning Living Arrangements: Family members Support Systems: Family members Assistance Needed: none Type of Residence: Private residence Prior to Admission Home Care Services: No Associated Order(s): IP CONSULT TO UROLOGY Please see consult note from this morning by Kelly Pratt PA-C (Urology). /CONSULT NOTE Patient Name: Luli Johnson Admit Date: MR #: [id number] : 1990 Assessment and Plan: Bladder stone possibly on US Right flank pain Suprapubic discomfort Constipation Renal US with no hydronephrosis. CBC and BMP normal, UA nitrite negative culture pending. Previous culture + E. Coli 11/27. Discussed with Dr. Zuñiga who has reviewed US. Recommending continued fluids, no surgical intervention planned. She is covered with rocephin, will discuss addition of possible antispasmotic with Dr. Zuñiga. Assessment Detail: The total time spent for this visit was 50 minutes. Greater than 50% of the time was spent in counseling and coordination of care regarding flank pain, bladder stone. Thank you for this consult. Please call with questions. Kelly Pratt PA-C [facility] Urology [phone] Physicians: Mercedez Cotto, GARAGE LABORER (Family); No ref. provider found (Referring) Chief Complaint/Reason for Visit: Chief Complaint Patient presents with Emesis Fatigue Flank Pain History of Present Illness: Luli Johnson is a 29 y.o. y/o female presenting from home with c/o Chief Complaint Patient presents with Emesis Fatigue Flank Pain Patient reports right flank pain for the past 24 hours. She rates her pain as 10/10 but was resting in bed on arrival. Patient denies issues urinating and has been doing so into a strainer with no stone produced. She denies fever chills but has had intermittent nausea and has not eaten due to this. She also endorses constipation. History: Past Medical History: Diagnosis Date ADD (attention deficit disorder) Alopecia Alopecia areata Anxiety with depression Eczema Hypotension IBS (irritable bowel syndrome) Irregular menstrual cycle Mental disorder DEPRESSION AND ANGER ISSUE,ANXIETY Neoplasm of pituitary gland Preeclampsia Vasovagal syncope Past Surgical History: Procedure Laterality Date CYSTO MAGGI LASER, RETRO, URETEROSCOPY, STENT (USUAL) Right 10/31/2019 Procedure: CYSTOSCOPY,RIGHT RETROGRADE PYELOGRAM, RIGHT URETEROSOCPY,; basket stone extraction RIGHT URETERAL STENT PLACEMENT; Surgeon: Yan Zuñiga MD; Location: [facility] Main OR; Service: Urology CYSTO RETRO STONE MANIPULATION STENT INSERTION Right 11/05/2019 Procedure: CYSTOSCOPY WITH RIGHT STENT REMOVAL; Surgeon: Yan Zuñiga MD; Location: [facility] Main OR; Service: Urology OTHER SURGICAL HISTORY wisdom teeth Family History Problem Relation Age of Onset Hypertension Mother Hypertension Maternal Grandfather Social History Socioeconomic History Marital status: Single Spouse name: Not on file Number of children: Not on file Years of education: Not on file Highest education level: Not on file Occupational History Not on file Social Needs Financial resource strain: Not on file Food insecurity Worry: Not on file Inability: Not on file Transportation needs Medical: Not on file Non-medical: Not on file Tobacco Use Smoking status: Never Smoker Smokeless tobacco: Never Used Substance and Sexual Activity Alcohol use: No Drug use: No Sexual activity: Yes Partners: Male Lifestyle Physical activity Days per week: Not on file Minutes per session: Not on file Stress: Not on file Relationships Social connections Talks on phone: Not on file Gets together: Not on file Attends faith service: Not on file Active member of club or organization: Not on file Attends meetings of clubs or organizations: Not on file Relationship status: Not on file Other Topics Concern Not on file Social History Narrative Not on file Allergy Information: I have reviewed the patient's allergies. Cat dander, Ciprofloxacin-hydrocortisone, Tree nuts, Sulfasalazine, Ciprofloxacin, Diphenhydramine, Diphenhydramine hcl, Hydrocortisone, Sulfa (sulfonamide antibiotics), and Sulfamethoxazole-trimethoprim Home Medications: Outpatient Medications as of 12/05/2019 Medication Sig ARIPiprazole (ABILIFY) 5 MG tablet Take 5 mg by mouth nightly . ascorbate calcium (VITAMIN C ORAL) Take 1 tablet by mouth daily . benztropine (COGENTIN) 0.5 MG tablet Take 0.5 mg by mouth every evening . bethanechol (URECHOLINE) 10 MG tablet Take 1 (one) tablet (10 mg total) by mouth 3 (three) times a day . bran/gum/fib/daniel/psyl/kelp/pec (FIBER 6 ORAL) Take 3 tablets by mouth daily Benifiber chew . cholecalciferol, vitamin D3, (VITAMIN D3 ORAL) Take 1 tablet by mouth daily . dicyclomine (BENTYL) 10 MG capsule Take 10 mg by mouth 4 (four) times a day as needed . metoclopramide (REGLAN) 5 MG tablet Take 1 (one) tablet (5 mg total) by mouth 3 (three) times a day as needed . metroNIDAZOLE (FLAGYL) 500 MG tablet Take 1 (one) tablet (500 mg total) by mouth 2 (two) times a day with meals for 7 days . naproxen (NAPROSYN) 250 MG tablet Take 250 mg by mouth 2 (two) times a day as needed . ondansetron (ZOFRAN-ODT) 4 MG disintegrating tablet Dissolve 1 (one) tablet (4 mg total) on top of tongue every 6 (six) hours as needed . vitamin with Ca-Iron-FA 27-1 mg Tab Take 1 tablet by mouth every morning . cephALEXin (KEFLEX) 500 MG capsule Take 500 mg by mouth 2 (two) times a day For 5 days . Review of Systems: The following system(s) were reviewed and are negative unless otherwise noted in the HPI: All other systems reviewed and negative other than HPI Physical Examination: Vital Signs: BP 103/70 (BP Location: Right arm, Patient Position: Lying) Pulse 85 Temp 98 F (36.7 C) (Oral) Resp 14 Ht 5' Wt 55.3 kg (122 lb) LMP 11/07/2019 SpO2 99% BMI 23.83 kg/m General appearance: alert, appears stated age, cooperative and no distress Head: Normocephalic, without obvious abnormality, atraumatic Eyes: conjunctiva clear Neck: supple, symmetrical, trachea midline Back: right CVA tenderness, none left Lungs: RRR Heart: regular rate and rhythm Abdomen: soft, tenderness reported right anterior flank and suprapubis Extremities: extremities normal, atraumatic, no cyanosis or edema Skin: Skin color, texture, turgor normal. No rashes or lesions Neurologic: Grossly normal Laboratory and Additional Data Reviewed: Results from last 7 days Lab Units 12/06/19 0415 12/05/19 1824 SODIUM mmol/L 141 145 POTASSIUM mmol/L 3.6 3.9 CHLORIDE mmol/L 110* 108 BUN mg/dL 14 15 CREATININE mg/dL 0.55 0.72 GLUCOSE mg/dL 83 86 CALCIUM mg/dL 8.5 -- Results from last 7 days Lab Units 12/06/19 0415 12/05/19 1824 WBC K/mcL 5.87 6.07 HGB g/dL 11.2* 12.3 HCT % 36.0 37.9 PLT K/mcL 216 268 MONOS% % -- 7.6 Us Renal And Bladder Result Date: 12/05/2019 EXAMINATION: US RENAL AND BLADDER HISTORY: ORDERING SYSTEM PROVIDED HISTORY: Right flank pain. TECHNOLOGIST PROVIDED HISTORY: Illness/Other Reason for exam: Right flank pain. Cancer History: Surgery, RadiationHistory: Encounter Type: Initial Additional signs and symptoms: ORDERING SYSTEM PROVIDED DIAGNOSIS CODES: N20.0 Nephrolithiasis R10.9 Flank pain R11.2 Intractable vomiting with nausea, unspecified vomiting type COMPARISON: CT kidney stone from November 28, 2019. TECHNIQUE: Sonographic images of the kidneys and bladder were performed. FINDINGS: The right kidney measures 10.5 x 4.8 x 3.8 cm and demonstrates an unremarkable sonographic appearance without hydronephrosis or discrete nephrolithiasis. The left kidney measures 9.8 x 4.4 x 4.7 cm and demonstrates an unremarkable sonographic appearance without hydronephrosis or discrete nephrolithiasis. There is a small echogenic structure within the right aspect of the bladder, measuring approximately 8 mm, potentially representing a bladder calculus, possibly having passed from the right kidney given that previously noted small right renal calculus on recent CT is not well delineated on this exam. No sonographic evidence of hydronephrosis. Small echogenic structure within the right aspect of the bladder, measuring approximately 8 mm, potentially representing a bladder calculus, possibly having passed from the right kidney given that previously noted small right renal calculus on recent CT is not well delineated on this exam. Correlation with urinalysis and follow-up CT kidney stone are advisable for more complete characterization/assessment. Workstation ID: [id number] Ct Kidney Stone Result Date: 11/28/2019 EXAMINATION: CT SCAN ABDOMEN AND PELVIS WITHOUT CONTRAST 11/28/2019 HISTORY: ORDERING SYSTEM PROVIDED HISTORY: left flank pain, TECHNOLOGIST PROVIDED HISTORY: Illness/Other Reason for exam: left flank pain Encounter Type: Initial Additional signs and symptoms: left flank pain ORDERING SYSTEM PROVIDED DIAGNOSIS CODES: COMPARISON: 11/17/2019. TECHNIQUE: Multiple computerized tomographic images were performed from the domes of the diaphragm through the pelvis without the use of any contrast. Multiplanar reconstructions are submitted. Dose reduction techniques were achieved by using: automated exposure control and/or adjustment of mA and/or kV according to patient size and/or use of iterative reconstruction technique. FINDINGS: The visualized lung bases are clear. CT ABDOMEN: The imaged portions of the liver and spleen are homogeneous. The pancreas is normal in size and attenuation. The gallbladder is only partially distended. The adrenal glands are not enlarged. The kidneys are symmetrical in size. There is no hydronephrosis bilaterally. In the right kidney, there is a 4.6 mm nonobstructing stone. The aortoiliac system is not enlarged. The appendix is not inflamed. There is fecal debris seen in the colon. CT PELVIS: The uterus is prominent in size. A small amount of pelvic fluid is seen and is most likely physiological. Urinary bladder is distended without defect seen. MUSCULOSKELETAL FINDINGS: No acute osseous abnormality. 1. Nonobstructive 4.6 mm stone on the right kidney. 2. No hydronephrosis or other sign of obstructive uropathy. 3. No evidence of appendicitis. 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 I concur with the assessment and plan. 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 Given lack of hydro, it is possible that she passed a stone, though this was not visible during ureteroscopy last month. No surgical intervention planned at this time. Yan Zuñiga MD [facility] Urology Physiciansdocumented in this encounter Associated Order(s): ED CONSULT TO MEDICAL - ELECTRICIAN CHIEF DISCHARGE PLAN PROGRESS NOTE Date: 11/14/2019 Time: 8:38 PM Patient Name: Luli Johnson Date of : 1990 Sex: Female FABIAN arranged for transportation home with [employer] and Trip # is [id number]. documented in this encounter Associated Order(s): ED CONSULT TO MEDICAL - ELECTRICIAN CHIEF DISCHARGE PLAN PROGRESS NOTE Date: 11/21/2019 Time: 11:45 PM Patient Name: Luli Johnson Date of : 1990 Sex: Female FABIAN arranged for transportation home with [employer] and Trip # is [id number]. documented in this encounter Nat Vann RN - 10/29/2019 10:26 AM EDT Nursing Notes (unrecognized section and content) Patient Instructions for [facility]: Prior to surgery: Please contact your Surgeon's office for the scheduled time of your surgery. Report to the Surgery Family Waiting Area in the [facility] of [facility] 1 1/2-2 hours prior to your surgery. You may use the Airport Maintenance Chief parking available at the Main Entrance/Blue Area of [facility] - a voucher for parking will be provided to you. One family member may accompany you back into the Pre-Op Area. Do not eat or drink anything after midnight or as directed, including gum, mints, and cough drops. No smoking after midnight. No alcohol 24 hours prior to your surgery. Please take any medications you have been instructed to take the morning of your surgery with small sips of water. Please be sure to wear comfortable, appropriate clothing. Please remove all jewelry and piercing's, including wedding rings. Leave all valuable items at home. Shower using anti-bacterial soap or as advised by your Surgeon's office Do not apply any makeup or lotions. Remove all nail croatian for surgeries involving extremities. Please remember to bring both your insurance card and a photo ID with you on the day of surgery. After your surgery: If you are having outpatient surgery - you must have a licensed cdl team truck driver to take you home. The expectation is that this cdl team truck driver will remain at the hospital for the duration of your procedure. You are advised to have a family member with you for at least 24 hours after being under Anesthesia. documented in this encounter INFORMATION SOURCE (unrecogn ized section and content) DATE CREATED AUTHOR 11/01/2019 [facility] DATE CREATED AUTHOR AUTHOR'S ORGANIZ ATION 10/16/2020 [facility] System DATE CREATED AUTHOR AUTHOR'S ORGANIZ ATION 04/28/2021 [facility] DATE CREATED AUTHOR AUTHOR'S ORGANIZ ATION 05/23/2021 [facility] DATE CREATED AUTHOR AUTHOR'S ORGANIZ ATION 08/27/2021 [facility] DATE CREATED AUTHOR AUTHOR'S ORGANIZ ATION 08/29/2021 [facility] DATE CREATED AUTHOR AUTHOR'S ORGANIZ ATION 09/04/2021 [facility] DATE CREATED AUTHOR AUTHOR'S ORGANIZ ATION 09/05/2021 [facility] DATE CREATED AUTHOR AUTHOR'S ORGANIZ ATION 10/07/2021 [facility] DATE CREATED AUTHOR AUTHOR'S ORGANIZ ATION 10/29/2021 [facility] DATE CREATED AUTHOR AUTHOR'S ORGANIZ ATION 10/05/2022 [facility] DATE CREATED AUTHOR AUTHOR'S ORGANIZ ATION 10/09/[address] [facility] DATE CREATED AUTHOR AUTHOR'S ORGANIZ ATION 11/11/2022 [employer] DATE CREATED AUTHOR AUTHOR'S ORGANIZ ATION 02/10/2023 [facility] DATE CREATED AUTHOR AUTHOR'S ORGANIZ ATION 11/10/2023 [facility] DATE CREATED AUTHOR AUTHOR'S ORGANIZ ATION 11/27/2023 [facility] DATE CREATED AUTHOR AUTHOR'S ORGANIZ ATION 12/26/2023 [facility] DATE CREATED AUTHOR AUTHOR'S ORGANIZ ATION 01/31/2024 [facility] DATE CREATED AUTHOR AUTHOR'S ORGANIZ ATION 03/19/2024 [facility] DATE CREATED AUTHOR AUTHOR'S ORGANIZ ATION 03/30/2024 [facility] DATE CREATED AUTHOR AUTHOR'S ORGANIZ ATION 04/15/2024 [facility] DATE CREATED AUTHOR AUTHOR'S ORGANIZ ATION 04/16/2024 [facility] DATE CREATED AUTHOR AUTHOR'S ORGANIZ ATION 05/06/2024 [facility] DATE CREATED AUTHOR AUTHOR'S ORGANIZ ATION 05/29/2024 [facility] DATE CREATED AUTHOR AUTHOR'S ORGANIZ ATION 07/31/2024 [facility] DATE CREATED AUTHOR AUTHOR'S ORGANIZ ATION 08/03/2024 [facility] Scheduled Active and Recently Administ ered Medications (unrecognized section and content) Medication Order 08/01/2020 08/02/2020 08/03/2020 ARIPiprazole (ABILIFY) tablet 5 mg 5 mg, Oral, Nightly, First dose on 08/03/20 at 2100 benztropine (COGENTIN) tablet 0.5 mg 0.5 mg, Oral, Every evening, First dose on 08/03/20 at 2100 diazePAM (VALIUM) syringe 2.5 mg (COMPLETED) 2.5 mg, Intravenous, Once, On 08/03/20 at 0345, For 1 dose, VESICANT 0358 (Given - Provid er: Kamini Salgado RN) HYDROmorphone (DILAUDID) injection 1 mg (COMPLETED) 1 mg, Intravenous, Once, On 08/03/20 at 0345, For 1 dose 0359 (Given - Provid er: Kamini Salgado RN) ondansetron (ZOFRAN) injection 8 mg (COMPLETED) 8 mg, Intravenous, Once, On 08/03/20 at 0345, For 1 dose 0354 (Given - Provid er: Kamini Salgado RN) ondansetron (ZOFRAN) injection 8 mg (COMPLETED) 8 mg, Intravenous, Once, On 08/03/20 at 0440, For 1 dose 0444 (Given - Provid er: Kamini Salgado RN) scopolamine (TRANSDERM-SCOP) 1 mg over 3 days patch 1 patch 1 patch, Transdermal, Once, On 08/03/20 at 0730, For 1 dose 0840 (Not Given - Pr ovider: Bev Christensen RN - Reason: Patient/family refused - Comment: pt states previous use has caused an itchy rash, she does not want) sodium chloride 0.9% (NS) bolus 1,000 mL (COMPLETED) 1,000 mL, Intravenous, at 1,000 mL/hr, Once, On 08/03/20 at 0345, For 1 dose 0353 (New Bag - Prov ider: Kamini Salgado RN)0456 (Stopped - Provider: Kamini Salgado RN) Continuous Medication Order 08/01/2020 08/02/2020 08/03/2020 sodium chloride 0.9% (NS) 125 mL/hr, Intravenous, Continuous, Starting on 08/03/20 at 0730, For 8 hours 0856 (New Bag - Prov ider: Bev Christensen RN)0858 (Rate/Dose Verify - Provider: Bev Christensen RN)1119 (Rate/Dose Verify - Provider: Bev Christensen RN) PRN Medication Order 08/01/2020 08/02/2020 08/03/2020 naloxone (NARCAN) injection 0.1 mg(Linked Group 1) 0.1 mg, Intravenous, As needed, opioid reversal, For respiratory rate less than or equal to 8 per minute., Starting on 08/03/20 at 0919, Mix nalOXone (NARCAN) 0.4 mg (1ml) with 9 mL of Normal Saline to total 10 mL. Administer 0.1 mg (2.5ml) IV Push every 2 minutes until respiratory rate is 10 or greater. naloxone (NARCAN) injection 0.4 mg(Linked Group 1) 0.4 mg, Intravenous, As needed, opioid reversal, patient is pulseless, breathless, and unresponsive, Starting on Tue08/03/20 at 0919, Call a code first, then administer naloxone dose undiluted IV Push over 30 seconds. ondansetron (ZOFRAN) injection 4 mg 4 mg, Intravenous, Every 6 hours PRN, nausea, vomiting, Starting on Tue08/03/20 at 0800 1430 (Given - Provid er: Bev Christensen RN) oxyCODONE Syrg 10 mg 10 mg, Sublingual, Every 4 hours PRN, moderate to severe pain, Starting on Tue08/03/20 at 0919 0958 (Not Given - Pr ovider: Bev Christensen RN - Reason: Patient/family refused - Comment: pt nauseated) prochlorperazine (COMPAZINE) injection 10 mg 10 mg, Intravenous, Every 6 hours PRN, nausea, vomiting, Starting on 08/03/20 at 0806, If IV, give slow IV push at a rate not exceeding 5 mg/minute and remain lying down for 30 minutes to reduce risk of hypotension. If IM, inject deep into outer buttocks quadrant. 0853 (Given - Provid er: Bev Christensen RN) sodium chloride (PF) (NS) flush 5 mL(Linked Group 2) 5 mL, Intravenous, As needed, line care, Starting on 08/03/20 at 0342 sodium chloride 0.9% (NS)(Linked Group 2) 0-150 mL/hr, Intravenous, As needed, To flush line after IV infusions when no maintenance IV ordered or a compatibility issue. Infuse 20ml at the same rate as the secondary infusion, Starting on Tue08/03/20 at 0342, Run as Primary IV. NOT intended for KVO. Linked Groups Order Group 1: naloxone (NARCAN) injection 0.1 mgJump to med 0.1 mg, Intravenous, As needed, opioid reversal, For respiratory rate less than or equal to 8 per minute., Starting on 08/03/20 at 0919
Mix nalOXone (NARCAN) 0.4 mg (1ml) with 9 mL of Normal Saline to total 10 mL. Administer 0.1 mg (2.5ml) IV Push every 2 minutes until respiratory rate is 10 or greater.
And Notify physician (CANCELED) STAT, Until discontinued, Starting on 08/03/20 at 0920, Until Specified
Respiratory rate less than: 8
For respiratory rate less than or equal to 8, notify physician and/or appropriate staff for additional orders. And naloxone (NARCAN) injection 0.4 mgJump to med 0.4 mg, Intravenous, As needed, opioid reversal, patient is pulseless, breathless, and unresponsive, Starting on 08/03/20 at 0919
Call a code first, then administer naloxone dose undiluted IV Push over 30 seconds.
Group 2: Insert peripheral IV (COMPLETED) ELIGIO, Once, On 08/03/20 at 0345, For 1 occurrence And Saline lock IV (CANCELED) ELIGIO, Once, On 08/03/20 at 0345, For 1 occurrence And sodium chloride (PF) (NS) flush 5 mLJump to med 5 mL, Intravenous, As needed, line care, Starting on 08/03/20 at 0342 And sodium chloride 0.9% (NS)Jump to med 0-150 mL/hr, Intravenous, As needed, To flush line after IV infusions when no maintenance IV ordered or a compatibility issue. Infuse 20ml at the same rate as the secondary infusion, Starting on 08/03/20 at 0342
Run as Primary IV. NOT intended for KVO.
Scheduled Medication Order 08/07/2020 08/08/2020 08/09/2020 ketorolac (TORADOL) injection 30 mg (COMPLETED) 30 mg, Intravenous, Once, On 08/09/20 at 0105, For 1 dose 0203 (Given - Provid er: Shanon Gil RN) ondansetron (ZOFRAN) injection 4 mg (COMPLETED) 4 mg, Intravenous, Once, On 08/09/20 at 0105, For 1 dose 0203 (Given - Provid er: Shanon Gil RN) PRN Medication Order 08/07/2020 08/08/2020 08/09/2020 iopamidoL (ISOVUE-370) 76 % injection 75 mL (COMPLETED) 75 mL, Intravenous, Once in imaging, contrast, Per vat skimmer (Radiology), Starting on 08/09/20 at 0102, For 1 dose 0210 (Contrast Admin istered - Provider: Sepideh John, TECHNOLOGIST - Comment: [id number]) sodium chloride (PF) (NS) 0.9 % contrast line flush 10 mL (COMPLETED) 10 mL, Intravenous, Once in imaging, contrast, Per vat skimmer (Radiology) for line patency check prior to contrast administration, Starting on 08/09/20 at 0102, For 1 dose 0211 (Given - Provid er: Sepideh John TECHNOLOGIST) sodium chloride (PF) (NS) 0.9 % contrast line flush 80 mL (COMPLETED) 80 mL, Intravenous, Once in imaging, contrast, Per vat skimmer (Radiology), Starting on 08/09/20 at 0102, For 1 dose, 30 mL BEFORE contrast administration 50 mL AFTER contrast administration 0211 (Given - Provid er: Sepideh John TECHNOLOGIST) sodium chloride (PF) (NS) flush 5 mL(Linked Group 1) 5 mL, Intravenous, As needed, line care, Starting on 08/09/20 at 0102 sodium chloride 0.9% (NS)(Linked Group 1) 0-150 mL/hr, Intravenous, As needed, To flush line after IV infusions when no maintenance IV ordered or a compatibility issue. Infuse 20ml at the same rate as the secondary infusion, Starting on 08/09/20 at 0102, Run as Primary IV. NOT intended for KVO. Linked Groups Order Group 1: Insert peripheral IV (COMPLETED) ELIGIO, Once, On 08/09/20 at 0105, For 1 occurrence And Saline lock IV (CANCELED) ELIGIO, Once, On 08/09/20 at 0105, For 1 occurrence And sodium chloride (PF) (NS) flush 5 mLJump to med 5 mL, Intravenous, As needed, line care, Starting on 08/09/20 at 0102 And sodium chloride 0.9% (NS)Jump to med 0-150 mL/hr, Intravenous, As needed, To flush line after IV infusions when no maintenance IV ordered or a compatibility issue. Infuse 20ml at the same rate as the secondary infusion, Starting on 08/09/20 at 0102
Run as Primary IV. NOT intended for KVO.
Scheduled Medication Order 08/21/2020 08/22/2020 08/23/2020 metoclopramide (REGLAN) injection 10 mg (COMPLETED) 10 mg, Intravenous, Once, On Tue08/22/20 at 2235, For 1 dose 225 (Given - Provider: Joseluis Hathaway RN) metoclopramide (REGLAN) tablet 5 mg 5 mg, Oral, 3 times daily before meals, First dose on Tue08/23/20 at 0730 morphine syringe 4 mg (COMPLETED) 4 mg, Intravenous, Once, On Tue08/22/20 at 2150, For 1 dose 2156 (Given - Provider: Joseluis Hathaway RN) morphine syringe 4 mg (COMPLETED) 4 mg, Intravenous, Once, On Tue08/22/20 at 2235, For 1 dose 2253 (Given - Provider: Joseluis Hathaway RN) ondansetron (ZOFRAN) injection 4 mg (COMPLETED) 4 mg, Intravenous, Once, On Tue08/22/20 at 2150, For 1 dose 2156 (Given - Provider: Joseluis Hathaway RN) sodium chloride 0.9% (NS) bolus 1,000 mL (COMPLETED) 1,000 mL, Intravenous, at 1,935.5 mL/hr, Once, On Tue08/23/20 at 0005, For 1 dose 0011 (New Bag - Provider: Joseluis Hathaway RN)0041 (Stopped - Provider: Joseluis Hathaway RN) Scheduled Medication Order 08/24/2020 08/25/2020 08/26/2020 haloperidol lactate (HALDOL) injection 5 mg (COMPLETED) 5 mg, Intravenous, Once, On Tue08/26/20 at 0130, For 1 dose, May cause QT interval prolongation. 0152 (Given - Provid er: Lucinda Dickens RN) sodium chloride 0.9% (NS) bolus 1,000 mL (COMPLETED) 1,000 mL, Intravenous, at 1,000 mL/hr, Once, On Tue08/26/20 at 0130, For 1 dose 0152 (New Bag - Prov ider: Lucinda Dickens RN)0218 (Stopped - Provider: Lucinda Dickens RN) PRN Medication Order 08/24/2020 08/25/2020 08/26/2020 sodium chloride (PF) (NS) flush 5 mL(Linked Group 1) 5 mL, Intravenous, As needed, line care, Starting on Tue08/26/20 at 0122 sodium chloride 0.9% (NS)(Linked Group 1) 0-150 mL/hr, Intravenous, As needed, To flush line after IV infusions when no maintenance IV ordered or a compatibility issue. Infuse 20ml at the same rate as the secondary infusion, Starting on Tue08/26/20 at 0122, Run as Primary IV. NOT intended for KVO. Linked Groups Order Group 1: Insert peripheral IV (COMPLETED) ELIGIO, Once, On Tue08/26/20 at 0125, For 1 occurrence And Saline lock IV (CANCELED) ELIGIO, Once, On Tue08/26/20 at 0125, For 1 occurrence And sodium chloride (PF) (NS) flush 5 mLJump to med 5 mL, Intravenous, As needed, line care, Starting on Tue08/26/20 at 0122 And sodium chloride 0.9% (NS)Jump to med 0-150 mL/hr, Intravenous, As needed, To flush line after IV infusions when no maintenance IV ordered or a compatibility issue. Infuse 20ml at the same rate as the secondary infusion, Starting on Tue08/26/20 at 0122
Run as Primary IV. NOT intended for KVO.
Scheduled Medication Order 05/24/2021 05/25/2021 05/26/2021 acetaminophen (TYLENOL) tablet 650 mg (COMPLETED) 650 mg, oral, Once, On Tue05/26/21 at 1346, For 1 dose 1416 (Given - Provid er: Kirsty Canchola RN) acetaminophen (TYLENOL) tablet 650 mg 650 mg, oral, Once, On Tue05/26/21 at 1429, For 1 dose 1434 (Not Given - Pr ovider: Mirian Woodall RN - Reason: Other - Comment: double order) ondansetron (PF) (ZOFRAN) injection 4 mg (COMPLETED) 4 mg, intravenous, Once, On Tue05/26/21 at 1346, For 1 dose 1414 (Given - Provid er: Kirsty Canchola RN) PRN Medication Order 05/24/2021 05/25/2021 05/26/2021 sodium chloride 0.9 % flush 10 mL(Linked Group 1) 10 mL, intravenous, As needed, line care, Starting on Tue05/26/21 at 1052 Linked Groups Order Group 1: Insert peripheral IV (COMPLETED) STAT, Once, On Tue05/26/21 at 1053, For 1 occurrence And Saline lock IV (COMPLETED) Routine, Once, On Tue05/26/21 at 1053, For 1 occurrence And sodium chloride 0.9 % flush 10 mLJump to med 10 mL, intravenous, As needed, line care, Starting on Tue05/26/21 at 1052 Scheduled Medication Order 06/02/2021 06/03/2021 06/04/2021 metoclopramide HCl (REGLAN) tablet 10 mg 10 mg, oral, Once, On Zahra 06/04/21 at 2236, For 1 dose 2316 (Not Given - Pr ovider: Spring Becker RN - Reason: Patient/Resident/Agent refused - education provided ) nitrofurantoin (macrocrystal-monohydrate) (MACROBID) capsule 100 mg 100 mg, oral, Once, On Zahra 06/04/21 at 2236, For 1 dose, Indication: Urinary Tract/Genitourinary 2316 (Not Given - Pr ovider: Spring Becker RN - Reason: Patient/Resident/Agent refused - education provided ) Scheduled Medication Order 06/03/2021 06/04/2021 06/05/2021 ondansetron ODT (ZOFRAN-ODT) dispersible tablet 4 mg (COMPLETED) 4 mg, oral, Once, On Tue06/05/21 at 0736, For 1 dose 0803 (Given - Provid er: Kirsty Canchola RN) Scheduled Medication Order 07/29/2021 07/30/2021 07/31/2021 promethazine (PHENERGAN) tablet 25 mg 25 mg, oral, Once, On Tue07/31/21 at 0523, For 1 dose 0641 (Not Given - Pr ovider: Trudy Green RN - Reason: Patient/Resident/Agent refused - education provided ) Scheduled Medication Order 08/25/2021 08/26/2021 08/27/2021 ketorolac (TORADOL) injection 15 mg (COMPLETED) 15 mg, intravenous, Once, On Zahra 08/27/21 at 0339, For 1 dose 0349 (Given - Provid er: Trudy Green RN) Scheduled Medication Order 09/30/2021 10/01/2021 10/02/2021 cephalexin (KEFLEX) capsule 500 mg 500 mg, oral, Once, On Tue10/02/21 at 0417, For 1 dose, Indication: Urinary Tract/Genitourinary 0417 (Canceled Entry - Provider: Automatic Discharge Provider - Comment: Automatically canceled at discontinue of medication order) Scheduled Medication Order 10/03/2021 10/04/2021 10/05/2021 gentamicin (GARAMYCIN) 270 mg in sodium chloride 0.9 % 100 mL IVPB (COMPLETED) 270 mg (rounded from 268 mg = 5 mg/kg 53.6 kg), intravenous, at 100 mL/hr, Administer over 60 Minutes, Once, On Tue10/05/21 at 0528, For 1 dose, Indication: Urinary Tract/Genitourinary 0729 (New Bag - Prov ider: Tigre Garcia RN - Comment: iv access)0829 (Stopped - Provider: Tigre Garcia RN) Scheduled Medication Order 01/08/2023 01/09/2023 01/10/2023 morphine injection 4 mg (COMPLETED) 4 mg, intravenous, Once, On Tue01/10/23 at 2135, For 1 dose 2238 (Given - Provid er: Traci Arciniega RN - Comment: Awaiting IV access) Scheduled Medication Order 01/17/2023 01/18/2023 01/19/2023 lactated Ringer's bolus 1,000 mL (COMPLETED) 1,000 mL, intravenous, at 1,000 mL/hr, Administer over 1 Hours, Once, On Tue01/18/23 at 1300, For 1 dose 1431 (New Bag - Provider: Shanon Ayala RN)1531 (Stopped - Provider: Donna Camilo, [place]) lactated Ringer's bolus 1,000 mL (COMPLETED) 1,000 mL, intravenous, at 1,000 mL/hr, Administer over 1 Hours, Once, On Tue01/18/23 at 2325, For 1 dose 2353 (New Bag - Provider: Ligia Barrientos LPN) 0053 (Stopped - Provider: Carissa Linda RN) prochlorperazine (Compazine) injection 5 mg (COMPLETED) 5 mg, intravenous, Once, On Tue01/18/23 at 1300, For 1 dose 1431 (Given - Provider: Shanon Ayala RN) prochlorperazine (Compazine) injection 5 mg 5 mg, intravenous, Once, On Tue01/18/23 at 2020, For 1 dose 2020 (Not Given - Provider: Carissa Linda RN - Reason: Patient/family refused) Scheduled Medication Order 03/29/2023 03/30/2023 03/31/2023 ketorolac (Toradol) injection 15 mg (COMPLETED) 15 mg, intravenous, Once, On Zahra 03/31/23 at 1340, For 1 dose 1507 (Given - Provid er: Tereza Avilez RN) Scheduled Medication Order 05/13/2023 05/14/2023 05/15/2023 iohexol (OMNIPaque) 350 mg iodine/mL solution 70 mL (COMPLETED) 70 mL, intravenous, Once in imaging, Starting on Tue05/15/23 at 0619, For 1 dose 0620 (Given - Provid er: Jyotsna Ruiz) Scheduled Medication Order 03/18/2024 03/19/2024 03/20/2024 famotidine PF (Pepcid) injection 20 mg (COMPLETED) 20 mg, intravenous, Administer over 2 Minutes, Once, On Tue03/19/24 at 2130, For 1 dose 2201 (Given - Provider: Ishaan Thornton RN) iohexol (OMNIPaque) 350 mg iodine/mL solution 75 mL (COMPLETED) 75 mL, intravenous, Once in imaging, Starting on Tue03/19/24 at 2248, For 1 dose 2307 (Given - Provider: Avani Neumann) morphine injection 4 mg (COMPLETED) 4 mg, intravenous, Once, On Tue03/19/24 at 2130, For 1 dose 2200 (Given - Provider: Ishaan Thornton RN) ondansetron (Zofran) injection 4 mg (COMPLETED) 4 mg, intravenous, Once, On Tue03/19/24 at 2130, For 1 dose, When administering via IV Push, administer over 3-5 minutes. 2200 (Given - Provider: Ishaan Thornton RN) potassium chloride (Klor-Con) packet 40 mEq (COMPLETED) 40 mEq, oral, Once, On Tue03/19/24 at 2235, For 1 dose, Dissolve each packet in 4 ounces of water = 5 mEq per 1 oz fluid. 2240 (Given - Provider: Mera Joyce LPN) Scheduled Medication Order 11/18/2023 11/19/2023 11/20/2023 cyclobenzaprine (FLEXERIL) tablet 10 mg (COMPLETED) 10 mg, Oral, ONCE, 1 dose, On 11/20/23 at 1815 184 (Given - Provid er: Reanna Hernández RN) ketorolac (TORADOL) injection 15 mg (COMPLETED) 15 mg, IntraVENous, ONCE, 1 dose, On Tue11/20/23 at 1815, Do not administer for more than 5 days. 184 (Given - Provid er: Reanna Hernández RN) lidocaine 4 % external patch 1 patch 1 patch, TransDERmal, Administer over 12 Hours, DAILY, First dose on 11/20/23 at 1815, Apply patch to lower back. Patch may remain in place for up to 12 hours in any 24 hour period. 184 (Patch Applied - Provider: Reanna Hernández RN) Scheduled Medication Order 11/19/2023 11/20/2023 11/21/2023 dicyclomine (BENTYL) injection 20 mg (COMPLETED) 20 mg, IntraMUSCular, ONCE, 1 dose, On Tue11/21/23 at 0200 201 (Given - Provid er: Cassandra Carbajal RN) Scheduled Medication Order 04/18/2024 04/19/2024 04/20/2024 benztropine (Cogentin) tablet 0.5 mg 0.5 mg, oral, Daily, First dose on Tue04/20/24 at 2004 2038 (Not Given - Pr ovider: Poly Olivares RN - Reason: Patient/family refused - Comment: patient does not take medication anymore) cloNIDine (Catapres) tablet 0.1 mg 0.1 mg, oral, Every 12 hours scheduled, First dose on Tue04/21/24 at 0900 EPINEPHrine (Epipen) injection syringe 0.3 mg (COMPLETED) 0.3 mg, intramuscular, Once, On Tue04/20/24 at 1805, For 1 dose 181 (Given - Provid er: Brooke Alexis RN - Comment: barcode not matching med, verified dose with Tere Alexandre) famotidine PF (Pepcid) injection 20 mg 20 mg, intravenous, Administer over 2 Minutes, Every 12 hours scheduled, First dose on Tue04/21/24 at 0900 famotidine PF (Pepcid) injection 40 mg (COMPLETED) 40 mg, intravenous, Administer over 2 Minutes, Once, On Tue04/20/24 at 1810, For 1 dose 181 (Given - Provid er: Brooke Aelxis RN) formoterol (Perforomist) 20 mcg/2 mL nebulizer solution 20 mcg(Linked Group 1) 20 mcg, nebulization, Every 12 hours RT, First dose on Tue04/20/24 at 2200 211 (Given - Provid er: Poly Olivares RN) hydrOXYzine (Vistaril) injection 25 mg (COMPLETED) 25 mg, intramuscular, Once, On Tue04/20/24 at 1815, For 1 dose 1854 (Given - Provid er: Brooke Alexis RN) ipratropium-albuteroL (Duo-Neb) 0.5-2.5 mg/3 mL nebulizer solution 3 mL (COMPLETED) 3 mL, nebulization, Once, On Tue04/20/24 at 1705, For 1 dose 171 (Given - Provid er: Brooke Alexis RN) methylPREDNISolone sod succinate (SOLU-Medrol) 40 mg/mL injection 40 mg 40 mg, intravenous, Every 6 hours, First dose (after last modification) on Tue04/21/24 at 0000 OLANZapine (ZyPREXA) tablet 10 mg 10 mg, oral, Nightly, First dose on Tue04/20/24 at 2100 2038 (Not Given - Pr ovider: Poly Olivares RN - Reason: Patient/family refused - Comment: patient does not take medication anymore) ondansetron (Zofran) injection 4 mg (COMPLETED) 4 mg, intravenous, Once, On Tue04/20/24 at 1730, For 1 dose, When administering via IV Push, administer over 3-5 minutes. 1819 (Given - Provid er: Brooke Alexis RN) pantoprazole (ProtoNix) EC tablet 40 mg(Linked Group 2) 40 mg, oral, Daily before breakfast, First dose on 04/21/24 at 0700, Do not crush, chew, or split. pantoprazole (ProtoNix) injection 40 mg(Linked Group 2) 40 mg, intravenous, Administer over 2 Minutes, Daily before breakfast, First dose on 04/21/24 at 0700, Give if unable to take by mouth. QUEtiapine (SEROquel) tablet 300 mg 300 mg, oral, Daily (0630), First dose on 04/21/24 at 0630 tiotropium (Spiriva Respimat) 2.5 mcg/actuation inhaler 2 puff(Linked Group 1) 2 puff, inhalation, Daily RT, First dose on 04/21/24 at 0700, Label inhaler with 3 month expiration date after inserting canister. PRN Medication Order 04/18/2024 04/19/2024 04/20/2024 acetaminophen (Tylenol) tablet 650 mg 650 mg, oral, Every 4 hours PRN, pain mild (1-3), first line, headaches, fever (temp greater than 38.0 C), Starting on Tue04/20/24 at 1853, If ordered PRN for pain, nurse is permitted to administer this medication for higher pain scores based on patient preference? Yes bisacodyl (Dulcolax) EC tablet 10 mg 10 mg, oral, Daily PRN, constipation, first line, Starting on Tue04/20/24 at 1959, 1st line for treatment of constipation - contact provider if no bowel movement in past 48 hours. Do not crush, chew, or split. bisacodyl (Dulcolax) suppository 10 mg 10 mg, rectal, Daily PRN, constipation, second line, Starting on Tue04/20/24 at 1959, 2nd line for treatment of constipation - contact provider if no bowel movement in past 48 hours. guaiFENesin (Mucinex) 12 hr tablet 600 mg 600 mg, oral, Every 12 hours PRN, congestion, Starting on Tue04/20/24 at 1958, Administer with plenty of fluids to ensure proper action. Do not crush, chew, or split. melatonin tablet 3 mg 3 mg, oral, Nightly PRN, sleep, Starting on Tue04/20/24 at 1958 ondansetron (Zofran) injection 4 mg(Linked Group 3) 4 mg, intravenous, Every 8 hours PRN, nausea/vomiting, first line, Starting on Tue04/20/24 at 2000, 1st Line. Give IV if patient is unable to take orally. If inadequate response within 60 minutes, proceed to next-line agent for same PRN reason or contact provider if no further options ordered. When administering via IV Push, administer over 3-5 minutes. ondansetron (Zofran) tablet 4 mg(Linked Group 3) 4 mg, oral, Every 8 hours PRN, nausea/vomiting, first line, Starting on Tue04/20/24 at 2000, 1st Line. Use oral route first, if possible. If inadequate response within 60 minutes, proceed to next-line agent for same PRN reason or contact provider if no further options ordered. Linked Groups Order Group 1: tiotropium (Spiriva Respimat) 2.5 mcg/actuation inhaler 2 puffJump to med 2 puff, inhalation, Daily RT, First dose on 04/21/24 at 0700, Label inhaler with 3 month expiration date after inserting canister. And formoterol (Perforomist) 20 mcg/2 mL nebulizer solution 20 mcgJump to med 20 mcg, nebulization, Every 12 hours RT, First dose on Tue04/20/24 at 2200 Group 2: pantoprazole (ProtoNix) EC tablet 40 mgJump to med 40 mg, oral, Daily before breakfast, First dose on Tue04/21/24 at 0700, Do not crush, chew, or split. Or pantoprazole (ProtoNix) injection 40 mgJump to med 40 mg, intravenous, Administer over 2 Minutes, Daily before breakfast, First dose on Tue04/21/24 at 0700, Give if unable to take by mouth. Group 3: ondansetron (Zofran) tablet 4 mgJump to med 4 mg, oral, Every 8 hours PRN, nausea/vomiting, first line, Starting on 04/20/24 at 2000, 1st Line. Use oral route first, if possible. If inadequate response within 60 minutes, proceed to next-line agent for same PRN reason or contact provider if no further options ordered. Or ondansetron (Zofran) injection 4 mgJump to med 4 mg, intravenous, Every 8 hours PRN, nausea/vomiting, first line, Starting on Tue04/20/24 at 2000, 1st Line. Give IV if patient is unable to take orally. If inadequate response within 60 minutes, proceed to next-line agent for same PRN reason or contact provider if no further options ordered. When administering via IV Push, administer over 3-5 minutes. Scheduled Medication Order 04/19/2024 04/20/2024 04/21/2024 hydrOXYzine HCL (Atarax) tablet 25 mg (COMPLETED) 25 mg, oral, Once, On 04/21/24 at 0130, For 1 dose 0149 (Given - Provid er: Sravani Mario, [place]) PRN Medication Order 04/19/2024 04/20/2024 04/21/2024 phenoL (Chloraseptic) 1.4 % mouth/throat spray 1 spray 1 spray, Mouth/Throat, Every 2 hour PRN, sore throat, Starting on 04/21/24 at 0125, Instruct patient to spit out after 15 seconds. 0247 (Given - Provid er: Sravani Mario, [place]) Scheduled Medication Order 04/20/2024 04/21/2024 04/22/2024 acetaminophen (Tylenol) tablet 975 mg (COMPLETED) 975 mg, oral, Once, On 04/22/24 at 1315, For 1 dose, If ordered PRN for pain, nurse is permitted to administer this medication for higher pain scores based on patient preference? Yes 1332 (Given - Provid er: Avani Chavez RN) lactated Ringer's bolus 1,000 mL (COMPLETED) 1,000 mL, intravenous, at 999 mL/hr, Administer over 1 Hours, Once, On 04/22/24 at 1315, For 1 dose 1333 (New Bag - Prov ider: Avani Chavez RN)1424 (Stopped - Provider: Avani Chavez RN) prochlorperazine (Compazine) injection 10 mg (COMPLETED) 10 mg, intravenous, Once, On 04/22/24 at 1315, For 1 dose, Give IV if patient is unable to take orally. Give IM if patient is unable to take orally and does not have IV access. 1333 (Given - Provid er: Avani Chavez RN) Scheduled Medication Order 06/28/2024 06/29/2024 06/30/2024 ipratropium-albuterol (Duo-Neb) 0.5-2.5 mg/3 mL nebulizer solution 3 mL (COMPLETED) 3 mL, Nebulization, Once, On 06/30/24 at 1445, For 1 dose 1500 (Given - Provid er: Marcia Hilliard LPN) Scheduled Medication Order 07/21/2024 07/22/2024 07/23/2024 acetaminophen (Tylenol) tablet 650 mg (COMPLETED) 650 mg, Oral, Once, On 07/23/24 at 1910, For 1 dose, Maximum dose of acetaminophen is 4000 mg from all sources in 24 hours. 1932 (Given - Provid er: Romeo Joyce RN) Care Teams (unrecognized sec tion and content) Licensed Pesticide Applicator Relationship Specialty Start Date End Date Mercedez Cotto CNP [address] [place] [address] PCP - General Internal Medicine 09/16/17 Licensed Pesticide Applicator Relationship Specialty Start Date End Date Mercedez Cotto CNP [address] [place] [address] PCP - General Internal Medicine 09/16/17 Licensed Pesticide Applicator Relationship Specialty Start Date End Date Mercedez Cotto CNP [address] [place] [address] PCP - General Internal Medicine 09/16/17 Licensed Pesticide Applicator Relationship Specialty Start Date End Date Basia Tristan, DO [address] [address] PCP - General Family Medicine 05/13/21 Licensed Pesticide Applicator Relationship Specialty Start Date End Date Basia Tristan DO [address] [place] [phone] PCP - General Family Medicine 05/13/21 Licensed Pesticide Applicator Relationship Specialty Start Date End Date Basia Tristan [address] [address] PCP - General Family Medicine 05/13/21 Licensed Pesticide Applicator Relationship Specialty Start Date End Date Sadiq Todd, DISINTEGRATOR-GARAGE LABORER [address] [place] [phone] Supervisor Personnel Clerks Certified Nurse Practitioner 08/30/19 Licensed Pesticide Applicator Relationship Specialty Start Date End Date Basia Tristan [address] [address] PCP - General Family Medicine 05/13/21 Licensed Pesticide Applicator Relationship Specialty Start Date End Date Basia Tristan [address] [address] PCP - General Family Medicine 05/13/21 Licensed Pesticide Applicator Relationship Specialty Start Date End Date Basia Tristan [address] [address] PCP - General Family Medicine 05/13/21 Licensed Pesticide Applicator Relationship Specialty Start Date End Date Basia Tristan [address] [address] PCP - General Family Medicine 05/13/21 Licensed Pesticide Applicator Relationship Specialty Start Date End Date Basia Tristan, DO [address] [phone] PCP - General Family Medicine 05/13/21 Licensed Pesticide Applicator Relationship Specialty Start Date End Date Basia Tristan DO [address] [phone] PCP - General Family Medicine 05/13/21 Licensed Pesticide Applicator Relationship Specialty Start Date End Date Basia Tristan, DO [address] [address] PCP - General Family Medicine 05/13/21 Licensed Pesticide Applicator Relationship Specialty Start Date End Date Basia Tristan DO [address] [address] PCP - General Family Medicine 05/13/21 Licensed Pesticide Applicator Relationship Specialty Start Date End Date Basia Tristan, DO [address] [address] PCP - General Family Medicine 05/13/21 Licensed Pesticide Applicator Relationship Specialty Start Date End Date Basia Tristan, DO [address] [address] PCP - General Family Medicine 05/13/21 Licensed Pesticide Applicator Relationship Specialty Start Date End Date Basia Tristan, DO [address] [phone] PCP - General Family Medicine 05/13/21 Licensed Pesticide Applicator Relationship Specialty Start Date End Date Basia Tristan, DO [address] [address] PCP - General Family Medicine 07/31/21 Licensed Pesticide Applicator Relationship Specialty Start Date End Date Basia Tristan DO [address] [address] PCP - General Family Medicine 07/31/21 Licensed Pesticide Applicator Relationship Specialty Start Date End Date Basia Tristan, [address] [address] PCP - General Family Medicine 07/31/21 Licensed Pesticide Applicator Relationship Specialty Start Date End Date Basia Tristan, [facility] [address] PCP - General Family Medicine 07/31/21 Licensed Pesticide Applicator Relationship Specialty Start Date End Date Basia Tristan, [address] [address] PCP - General Family Medicine 07/31/21 Licensed Pesticide Applicator Relationship Specialty Start Date End Date No, Physician [facility] PCP - General 07/23/21 Licensed Pesticide Applicator Relationship Specialty Start Date End Date Basia Tristan, [address] [address] PCP - General Family Medicine 07/31/21 Licensed Pesticide Applicator Relationship Specialty Start Date End Date Basia Tristan, [address] [address] PCP - General Family Medicine 07/31/21 Licensed Pesticide Applicator Relationship Specialty Start Date End Date Basia Tristan, [address] [address] PCP - General Family Medicine 07/31/21 Licensed Pesticide Applicator Relationship Specialty Start Date End Date Basia Tristan, DO [address] [phone] PCP - General Family Medicine 07/31/21 Licensed Pesticide Applicator Relationship Specialty Start Date End Date Basia Tristan, DO [address] [phone] PCP - General Family Medicine 07/31/21 Licensed Pesticide Applicator Relationship Specialty Start Date End Date Basia Tristan, [facility] [phone] PCP - General Family Medicine 07/31/21 Licensed Pesticide Applicator Relationship Specialty [place] [address] [place] [address] PCP - General Internal Medicine 06/04/22 Licensed Pesticide Applicator Relationship Specialty Start [place] [address] [place] [address] PCP - General Internal Medicine 06/04/22 Licensed Pesticide Applicator Relationship Specialty [place] [address] [place] [address] PCP - General Internal Medicine 06/04/22 Licensed Pesticide Applicator Relationship Specialty [place] [address] [place] [address] PCP - General Internal Medicine 06/04/22 Licensed Pesticide Applicator Relationship Specialty [place] [address] [place] [address] PCP - General Internal Medicine 06/04/22 Licensed Pesticide Applicator Relationship Specialty [place] [address] [place] [address] PCP - General Internal Medicine 06/04/22 Licensed Pesticide Applicator Relationship Specialty [place] [address] [place] [address] PCP - General Internal Medicine 06/04/22 Licensed Pesticide Applicator Relationship Specialty [place] [address] [place] [address] PCP - General Internal Medicine 06/04/22 Licensed Pesticide Applicator Relationship Specialty [place] [address] [place] [address] PCP - General Internal Medicine 06/04/22 Licensed Pesticide Applicator Relationship Specialty [place] [address] [place] [address] PCP - General Internal Medicine 06/04/22 Licensed Pesticide Applicator Relationship Specialty Start Date End Date Shara Nolen, PharmD [address] [facility] [place] [address] Clear Bag Tech 06/10/22 Licensed Pesticide Applicator Relationship Specialty Start Date End Date Madi Stuart MD PCP - General Internal Medicine 06/04/22 Licensed Pesticide Applicator Relationship Specialty Start Date End Date Shara Nolen, PharmD [address] [facility] [place] [address] Clear Bag Tech 06/10/22 Licensed Pesticide Applicator Relationship Specialty Start Date End Date Madi Stuart MD PCP - General Internal Medicine 06/04/22 Licensed Pesticide Applicator Relationship Specialty Start Date End Date Madi Stuart MD PCP - General Internal Medicine 06/04/22 Licensed Pesticide Applicator Relationship Specialty Start Date End Date Madi Stuart MD PCP - General Internal Medicine 06/04/22 Licensed Pesticide Applicator Relationship Specialty Start Date End Date Madi Stuart MD PCP - General Internal Medicine 06/04/22 Licensed Pesticide Applicator Relationship Specialty Start Date End Date Madi Stuart MD PCP - General Internal Medicine 06/04/22 Licensed Pesticide Applicator Relationship Specialty Start Date End Date Madi Stuatr MD PCP - General Internal Medicine 06/04/22 Licensed Pesticide Applicator Relationship Specialty Start Date End Date Madi Stuart MD PCP - General Internal Medicine 06/04/22 Licensed Pesticide Applicator Relationship Specialty Start Date End Date Madi Stuart MD PCP - General Internal Medicine 06/04/22 Licensed Pesticide Applicator Relationship Specialty Start Date End Date Shara Nolen, PedritoD [address] [place] [address] [place] [address] [employer] 06/10/22 Licensed Pesticide Applicator Relationship Specialty Start Date End Date Madi Stuart MD PCP - General Internal Medicine 06/04/22 Licensed Pesticide Applicator Relationship Specialty Start Date End Date Madi Stuart MD PCP - General Internal Medicine 06/04/22 Licensed Pesticide Applicator Relationship Specialty Start Date End Date Madi Stuart MD PCP - General Internal Medicine 06/04/22 Licensed Pesticide Applicator Relationship Specialty Start Date End Date Madi Stuart MD PCP - General Internal Medicine 06/04/22 Licensed Pesticide Applicator Relationship Specialty Start Date End Date Madi Stuart MD PCP - General Internal Medicine 06/04/22 Licensed Pesticide Applicator Relationship Specialty Start Date End Date Madi Stuart MD PCP - General Internal Medicine 06/04/22 Kaylie Iraheta department manager Automobile Service Station Manager 09/13/22 10/13/22 Licensed Pesticide Applicator Relationship Specialty Start Date End Date Madi Stuart MD PCP - General Internal Medicine 06/04/22 Kaylie Iraheta department manager Automobile Service Station Manager 09/13/22 10/13/22 Licensed Pesticide Applicator Relationship Specialty Start Date End Date Madi Stuart MD PCP - General Internal Medicine 06/04/22 Kaylie Iraheta department manager Automobile Service Station Manager 09/13/22 10/13/22 Licensed Pesticide Applicator Relationship Specialty Start Date End Date Madi Stuart MD PCP - General Internal Medicine 06/04/22 Kaylie Iraheat department manager Automobile Service Station Manager 09/13/22 10/13/22 Licensed Pesticide Applicator Relationship Specialty Start Date End Date Madi Stuart MD PCP - General Internal Medicine 06/04/22 Kaylie Iraheta department manager Automobile Service Station Manager 09/13/22 10/13/22 Licensed Pesticide Applicator Relationship Specialty Start Date End Date Madi Stuart MD PCP - General Internal Medicine 06/04/22 Kaylie Iraheta, department manager Automobile Service Station Manager 09/13/22 10/13/22 Licensed Pesticide Applicator Relationship Specialty Start Date End Date Madi Stuart MD PCP - General Internal Medicine 06/04/22 Kaylie Iraheta, department manager Automobile Service Station Manager 09/13/22 10/13/22 Licensed Pesticide Applicator Relationship Specialty Start Date End Date Madi Stuart MD PCP - General Internal Medicine 06/04/22 Kaylie Iraheta, department manager Automobile Service Station Manager 09/13/22 10/13/22 Licensed Pesticide Applicator Relationship Specialty Start Date End Date Madi Stuart MD PCP - General Internal Medicine 06/04/22 Kaylie Iraheta, department manager Automobile Service Station Manager 09/13/22 10/13/22 Licensed Pesticide Applicator Relationship Specialty Start Date End Date Madi Stuart MD PCP - General Internal Medicine 06/04/22 Licensed Pesticide Applicator Relationship Specialty Start Date End Date Shara Nolen PharmD [address] [facility] [place] [address] Clear Bag Tech 06/10/22 Licensed Pesticide Applicator Relationship Specialty Start Date End Date Shara Nolen PharmD [address] [facility] [place] [address] Clear Bag Tech 06/10/22 Licensed Pesticide Applicator Relationship Specialty Start Date End Date Madi Stuart MD PCP - General Internal Medicine 06/04/22 Licensed Pesticide Applicator Relationship Specialty Start Date End Date Madi Stuart MD PCP - General Internal Medicine 06/04/22 Licensed Pesticide Applicator Relationship Specialty Start Date End Date Madi Stuart MD PCP - General Internal Medicine 06/04/22 Licensed Pesticide Applicator Relationship Specialty Start Date End Date Madi Stuart MD PCP - General Internal Medicine 06/04/22 Licensed Pesticide Applicator Relationship Specialty Start Date End Date Madi Stuart MD PCP - General Internal Medicine 06/04/22 Licensed Pesticide Applicator Relationship Specialty Start Date End Date Madi Stuart MD PCP - General Internal Medicine 06/04/22 Yoel Virgen, department manager Automobile Service Station Manager 12/06/22 01/05/23 Licensed Pesticide Applicator Relationship Specialty Start Date End Date Madi Stuart MD PCP - General Internal Medicine 06/04/22 Yoel Virgen, department manager Automobile Service Station Manager 12/06/22 01/05/23 Licensed Pesticide Applicator Relationship Specialty Start Date End Date Madi Stuart MD PCP - General Internal Medicine 06/04/22 Yoel Virgen, department manager Automobile Service Station Manager 12/06/22 01/05/23 Licensed Pesticide Applicator Relationship Specialty Start Date End Date Madi Stuart MD PCP - General Internal Medicine 06/04/22 Licensed Pesticide Applicator Relationship Specialty Start Date End Date Madi Stuart MD PCP - General Internal Medicine 06/04/22 Licensed Pesticide Applicator Relationship Specialty Start Date End Date Madi Stuart MD PCP - General Internal Medicine 06/04/22 Licensed Pesticide Applicator Relationship Specialty Start Date End Date Madi Stuart MD PCP - General Internal Medicine 06/04/22 Licensed Pesticide Applicator Relationship Specialty Start Date End Date Madi Stuart MD PCP - General Internal Medicine 06/04/22 Licensed Pesticide Applicator Relationship Specialty Start Date End Date Madi Stuart MD PCP - General Internal Medicine 06/04/22 Licensed Pesticide Applicator Relationship Specialty Start Date End Date Madi Stuart MD PCP - General Internal Medicine 06/04/22 Licensed Pesticide Applicator Relationship Specialty Start Date End Date Generic Provider, No Assigned MD Jay[address] [place] [address] PCP - General Internal Medicine 03/08/23 Licensed Pesticide Applicator Relationship Specialty Start Date End Date Madi Stuart MD PCP - General Internal Medicine 06/04/22 Licensed Pesticide Applicator Relationship Specialty Start Date End Date Madi Stuart MD PCP - General Internal Medicine 06/04/22 Licensed Pesticide Applicator Relationship Specialty Start Date End Date Madi Stuart MD PCP - General Internal Medicine 06/04/22 Licensed Pesticide Applicator Relationship Specialty Start Date End Date Madi Stuart MD PCP - General Internal Medicine 06/04/22 Licensed Pesticide Applicator Relationship Specialty Start Date End Date Madi Stuart MD PCP - General Internal Medicine 06/04/22 Licensed Pesticide Applicator Relationship Specialty Start Date End Date Madi Stuart MD PCP - General Internal Medicine 06/04/22 Elina Staples APRN.GARAGE LABORER [address] [place] [address] [address] [place] [address] Gastroenterology 04/20/23 Chasity Huynh MD [address] [place] [address] [address] [place] [address] Gastroenterology 04/20/23 Licensed Pesticide Applicator Relationship Specialty Start Date End Date Madi Stuart MD PCP - General Internal Medicine 06/04/22 Elina Staples, DISINTEGRATOR.GARAGE LABORER [address] [place] [address] [address] [place] [address] Gastroenterology 04/20/23 Chasity Huynh MD [address] [place] [address] [address] [place] [address] Gastroenterology 04/20/23 Licensed Pesticide Applicator Relationship Specialty Start Date End Date Madi Stuart MD PCP - General Internal Medicine 06/04/22 Elina Staples, DISINTEGRATOR.GARAGE LABORER [address] [place] [address] Gastroenterology 04/20/23 Chasity Huynh MD [address] [place] [address] [place] [address] Gastroenterology 04/20/23 Licensed Pesticide Applicator Relationship Specialty Start Date End Date Madi Stuart MD PCP - General Internal Medicine 06/04/22 Elina Staples, DISINTEGRATOR.GARAGE LABORER [address] [place] [address] [address] [place] [address] Gastroenterology 04/20/23 Chasity Huynh MD [address] [facility] [place] [address] [place] [address] Gastroenterology 04/20/23 Licensed Pesticide Applicator Relationship Specialty Start Date End Date Madi Stuart MD PCP - General Internal Medicine 06/04/22 Elina Staples, DISINTEGRATOR.GARAGE LABORER [address] [place] [address] Gastroenterology 04/20/23 Chasity Huynh MD [address] [place] [address] [place] [address] Gastroenterology 04/20/23 Licensed Pesticide Applicator Relationship Specialty Start Date End Date Madi Stuart MD PCP - General Internal Medicine 06/04/22 Elina Staples DISINTEGRATOR.GARAGE LABORER [address] [place] [address] [address] [place] [address] Gastroenterology 04/20/23 Chasity Huynh MD [address] [place] [address] [place] [address] [place] [address] Gastroenterology 04/20/23 Licensed Pesticide Applicator Relationship Specialty Start Date End Date Madi Stuart MD PCP - General Internal Medicine 06/04/22 Elina Staples, DISINTEGRATOR.GARAGE LABORER [address] [place] [address] Gastroenterology 04/20/23 Chasity Huynh MD [address] [place] [address] [address] [place] [address] Gastroenterology 04/20/23 Licensed Pesticide Applicator Relationship Specialty Start Date End Date Generic Provider, No Assigned PcpMD [address] [place] [address] PCP - General Internal Medicine 03/08/23 Licensed Pesticide Applicator Relationship Specialty Start Date End Date Madi Stuatr MD PCP - General Internal Medicine 06/04/22 Elina Staples, DISINTEGRATOR.GARAGE LABORER [address] [place] [address] [address] [place] [address] Gastroenterology 04/20/23 Chasity Huynh MD [address] [place] [address] [place] [address] [place] [address] Gastroenterology 04/20/23 Licensed Pesticide Applicator Relationship Specialty Start Date End Date Madi Stuart MD PCP - General Internal Medicine 06/04/22 Elina Staples APRN.GARAGE LABORER [address] [place] [address] Gastroenterology 04/20/23 Chasity Huynh MD [address] [place] [address] [place] [address] Gastroenterology 04/20/23 Licensed Pesticide Applicator Relationship Specialty Start Date End Date Madi Stuart MD PCP - General Internal Medicine 06/04/22 Elina Staples, DISINTEGRATOR.GARAGE LABORER [address] [place] [address] Gastroenterology 04/20/23 Chasity Huynh MD [address] [place] [address] [place] [address] Gastroenterology 04/20/23 Marium Evans, department manager Automobile Service Station Manager Internal Medicine 05/23/23 Licensed Pesticide Applicator Relationship Specialty Start Date End Date Madi Stuart MD PCP - General Internal Medicine 06/04/22 Elina Staples APRN.GARAGE LABORER [address] [place] [address] Gastroenterology 04/20/23 Chasity Huynh MD [address] [place] [address] [place] [address] Gastroenterology 04/20/23 Marium Evans, department manager Automobile Service Station Manager Internal Medicine 05/23/23 Licensed Pesticide Applicator Relationship Specialty Start Date End Date Madi Stuart MD PCP - General Internal Medicine 06/04/22 Elina Staples DISINTEGRATOR.GARAGE LABORER [address] [place] [address] [address] [place] [address] Gastroenterology 04/20/23 Chasity Huynh MD [address] [place] [address] [address] [place] [address] Gastroenterology 04/20/23 Licensed Pesticide Applicator Relationship Specialty Start Date End Date Cassandra Zarco LSW [address] [place] [address] Individual Behavioral Health Therapist Social Work 06/17/23 Licensed Pesticide Applicator Relationship Specialty Start Date End Date Cassandra Zarco LSW [address] [place] [address] Individual Behavioral Health Therapist Social Work 06/17/23 Licensed Pesticide Applicator Relationship Specialty Start Date End Date Madi Stuart MD PCP - General Internal Medicine 06/04/22 10/12/23 Elina Staples, DISINTEGRATOR.GARAGE LABORER [address] [place] [address] [address] [place] [address] Gastroenterology 04/20/23 Chasity Huynh MD [address] [place] [address] [address] [place] [address] Gastroenterology 04/20/23 Licensed Pesticide Applicator Relationship Specialty Start Date End Date Madi Stuart MD PCP - General Internal Medicine 06/04/22 10/12/23 Elina Staples APRN.GARAGE LABORER [address] [place] [address] [address] [place] [address] Gastroenterology 04/20/23 Chasity Huynh MD [address] [place] [address] [place] [address] [place] [address] Gastroenterology 04/20/23 Licensed Pesticide Applicator Relationship Specialty Start Date End Date Madi Stuart MD PCP - General Internal Medicine 06/04/22 Elina Staples APRN.GARAGE LABORER [address] [place] [address] [address] [place] [address] Gastroenterology 04/20/23 Chasity Huynh MD [address] [place] [address] [address] [place] [address] Gastroenterology 04/20/23 Licensed Pesticide Applicator Relationship Specialty Start Date End Date Lucille Reddy NP [address] [place] [address] PCP - General Family Medicine 12/15/23 Licensed Pesticide Applicator Relationship Specialty Start Date End Date Lucille Reddy NP [address] [place] [address] PCP - General Family Medicine 12/15/23 Licensed Pesticide Applicator Relationship Specialty Start Date End Date Lucille Reddy NP [address] [place] [address], [place] [address] PCP - General Family Medicine 12/15/23 Licensed Pesticide Applicator Relationship Specialty Start Date End Date Barry Lucille HurstomiEVON [address] [address] PCP - General Family Medicine 12/15/23 Licensed Pesticide Applicator Relationship Specialty Start Date End Date Bel, Elina, DISINTEGRATOR.GARAGE LABORER [address] [place] [address] [address] [place] [address] Gastroenterology 04/20/23 Chasity Huynh MD [address] [place] [address] [place] [address] Gastroenterology 04/20/23 Licensed Pesticide Applicator Relationship Specialty Start Date End Date Generic Provider, No Assigned MD Jaylin PCP - General Internal Medicine 03/08/23 Licensed Pesticide Applicator Relationship Specialty Start Date End Date Generic Provider, No Assigned MD Jaylin PCP - General Internal Medicine 03/08/23 Licensed Pesticide Applicator Relationship Specialty Start Date End Date Generic Provider, [place] [address] PCP - General Internal Medicine 03/08/23 Licensed Pesticide Applicator Relationship Specialty Start Date End Date Bel, Elina, DISINTEGRATOR.GARAGE LABORER [address] [place] [address] [address] [place] [address] Gastroenterology 04/20/23 Chasity Huynh MD [address] [place] [address] [address] [place] [address] Gastroenterology 04/20/23 Licensed Pesticide Applicator Relationship Specialty Start Date End Date Generic Provider, No [place] [address] PCP - General Internal Medicine 03/08/23 Licensed Pesticide Applicator Relationship Specialty Start Date End Date Generic Provider, No [place] [address] PCP - General Internal Medicine 03/08/23 Licensed Pesticide Applicator Relationship Specialty Start Date End Date Generic Provider, No [place] [address] PCP - General Internal Medicine 03/08/23 Licensed Pesticide Applicator Relationship Specialty Start Date End Date Elina Staples, DISINTEGRATOR.GARAGE LABORER [address] [place] [address] [address] [place] [address] Gastroenterology 04/20/23 Chasity Huynh MD [address] [place] [address] [address] [place] [address] Gastroenterology 04/20/23 Licensed Pesticide Applicator Relationship Specialty Start Date End Date Elina Staples, DISINTEGRATOR.GARAGE LABORER [address] [place] [address] [address] [place] [address] Gastroenterology 04/20/23 Chasity Huynh MD [address] [place] [address] [address] [place] [address] Gastroenterology 04/20/23 Licensed Pesticide Applicator Relationship Specialty Start Date End Date Edna Reyes DO [address] [facility] [address] [place] [address] PCP - General 07/24/24 Licensed Pesticide Applicator Relationship Specialty Start Date End Date Edna Reyes DO 55 [facility] [address] [place] [address] PCP - General 07/24/24 Ordered Prescriptions (unrec ognized section and content) Prescription Sig Dispensed Refills Start Date End Da te clotrimazole (AlevazoL) 1 % ointment Apply 1 Inch/day topically 2 (two) times a day for 14 days. 30 g 0 05/26/2021 06/09/2021 ondansetron ODT (ZOFRAN-ODT) 4 mg dispersible tablet Dissolve 1 tablet (4 mg total) on top of the tongue every 8 (eight) hours if needed for nausea or vomiting for up to 7 days. 20 tablet 0 05/26/2021 06/02/2021 Prescription Sig Dispensed Refills Start Date End Da te nitrofurantoin, macrocrystal-monohydrate , (MACROBID) 100 mg capsule Take 1 capsule (100 mg total) by mouth 2 (two) times a day for 5 days. 10 capsule 0 06/04/2021 06/09/2021 metoclopramide HCl (REGLAN) 10 mg tablet Take 1 tablet (10 mg total) by mouth every 6 (six) hours if needed (nausea) for up to 7 days. 4 tablet 0 06/04/2021 06/11/2021 Prescription Sig Dispensed Refills Start Date End Da te ondansetron ODT (ZOFRAN-ODT) 4 mg dispersible tabletIndications:Nausea and vomiting Dissolve 1 tablet (4 mg total) on top of the tongue every 8 (eight) hours if needed for nausea or vomiting for up to 5 days. 15 tablet 0 06/05/2021 06/10/2021 Prescription Sig Dispensed Refills Start Date End Da te phenazopyridine (PYRIDIUM) 200 mg tablet Take 1 tablet (200 mg total) by mouth 3 (three) times a day for 2 days. 6 tablet 0 10/02/2021 10/04/2021 cephalexin (KEFLEX) 500 mg capsule Take 1 capsule (500 mg total) by mouth 2 (two) times a day for 7 days. 14 each 0 10/02/2021 10/09/2021 Prescription Sig Dispensed Refills Start Date End Da te nitrofurantoin, macrocrystal-monohydrate , (MACROBID) 100 mg capsule Take 1 capsule (100 mg total) by mouth 2 (two) times a day for 5 days. 10 capsule 0 10/05/2021 10/10/2021 Prescription Sig Dispensed Refills Start Date End Da te fluconazole (DIFLUCAN) 150 mg tabletIndications:Vag marv, candidiasis Take 1 tablet (150 mg total) by mouth See administration instructions for 1 day. Take one tab now. Repeat in 7 days if symptoms persist. 2 tablet 12/20/2023 12/21/2023 Prescription Sig Dispensed Refills Start Date End Da sertraline (ZOLOFT) 50 mg tabletIndications:Severe episode of recurrent major depressive disorder, without psychotic features (CMS/HCC) Take 1 tablet (50 mg total) by mouth 1 (one) time each day. 30 each 12/20/2023 01/19/2024 omeprazole (PriLOSEC) [address] capsuleIndications:Gastro esophageal reflux disease, unspecified whether esophagitis present Take 1 capsule (20 mg total) by mouth 1 (one) time each day. Do not crush or chew. 30 each 2 12/20/2023 03/19/2024 Prescription Sig Dispensed Refills Start Date End Da lidocaine 4 % external patch Place 1 patch onto the skin daily for 5 days 5 each 11/20/2023 11/25/2023 acetaminophen (TYLENOL) 500 MG tablet Take 1 tablet by mouth 4 times daily as needed for Pain 20 tablet 11/20/2023 11/25/2023 methocarbamol (ROBAXIN-750) 750 MG tablet Take 1 tablet by mouth 4 times daily for 5 days 20 tablet 11/20/2023 11/25/2023 Prescription Sig Dispensed Refills Start Date End Da polyethylene glycol (MIRALAX) 17 GM/SCOOP powder Take 17 g by mouth daily for 14 days. Dispense QS, and no refills 238 g 11/21/2023 12/05/2023 Source Comments (unrecognize d section and content) In the event this informatio n is protected by the Federal Confidentiality of Alcohol and Drug Abuse Patient Records regulations: The Federal rules restrict any use of the information to criminally investigate or prosecute any alcohol or drug abuse patient.[facility] the event this information is protected by the Federal Confidentiality of Alcohol and Drug Abuse Patient Records regulations: The Federal rules restrict any use of the information to criminally investigate or prosecute any alcohol or drug abuse patient.[facility] HospitalIn the event this information is protected by the Federal Confidentiality of Alcohol and Drug Abuse Patient Records regulations: The Federal rules restrict any use of the information to criminally investigate or prosecute any alcohol or drug abuse patient.[facility] HospitalIn the event this information is protected by the Federal Confidentiality of Alcohol and Drug Abuse Patient Records regulations: The Federal rules restrict any use of the information to criminally investigate or prosecute any alcohol or drug abuse patient.[facility] HospitalIn the event this information is protected by the Federal Confidentiality of Alcohol and Drug Abuse Patient Records regulations: The Federal rules restrict any use of the information to criminally investigate or prosecute any alcohol or drug abuse patient.[facility]In the event this information is protected by the Federal Confidentiality of Alcohol and Drug Abuse Patient Records regulations: The Federal rules restrict any use of the information to criminally investigate or prosecute any alcohol or drug abuse patient.[facility] HospitalIn the event this information is protected by the Federal Confidentiality of Alcohol and Drug Abuse Patient Records regulations: The Federal rules restrict any use of the information to criminally investigate or prosecute any alcohol or drug abuse patient.[facility] HospitalIn the event this information is protected by the Federal Confidentiality of Alcohol and Drug Abuse Patient Records regulations: The Federal rules restrict any use of the information to criminally investigate or prosecute any alcohol or drug abuse patient.[facility] HospitalIn the event this information is protected by the Federal Confidentiality of Alcohol and Drug Abuse Patient Records regulations: The Federal rules restrict any use of the information to criminally investigate or prosecute any alcohol or drug abuse patient.[facility] HospitalIn the event this information is protected by the Federal Confidentiality of Alcohol and Drug Abuse Patient Records regulations: The Federal rules restrict any use of the information to criminally investigate or prosecute any alcohol or drug abuse patient.[facility] HospitalIn the event this information is protected by the Federal Confidentiality of Alcohol and Drug Abuse Patient Records regulations: The Federal rules restrict any use of the information to criminally investigate or prosecute any alcohol or drug abuse patient.[facility] HospitalIn the event this information is protected by the Federal Confidentiality of Alcohol and Drug Abuse Patient Records regulations: The Federal rules restrict any use of the information to criminally investigate or prosecute any alcohol or drug abuse patient.[facility] HospitalIn the event this information is protected by the Federal Confidentiality of Alcohol and Drug Abuse Patient Records regulations: The Federal rules restrict any use of the information to criminally investigate or prosecute any alcohol or drug abuse patient.[facility] HospitalIn the event this information is protected by the Federal Confidentiality of Alcohol and Drug Abuse Patient Records regulations: The Federal rules restrict any use of the information to criminally investigate or prosecute any alcohol or drug abuse patient.[facility] HospitalIn the event this information is protected by the Federal Confidentiality of Alcohol and Drug Abuse Patient Records regulations: The Federal rules restrict any use of the information to criminally investigate or prosecute any alcohol or drug abuse patient.[facility] HospitalIn the event this information is protected by the Federal Confidentiality of Alcohol and Drug Abuse Patient Records regulations: The Federal rules restrict any use of the information to criminally investigate or prosecute any alcohol or drug abuse patient.[facility] HospitalIn the event this information is protected by the Federal Confidentiality of Alcohol and Drug Abuse Patient Records regulations: The Federal rules restrict any use of the information to criminally investigate or prosecute any alcohol or drug abuse patient.[facility] HospitalIn the event this information is protected by the Federal Confidentiality of Alcohol and Drug Abuse Patient Records regulations: The Federal rules restrict any use of the information to criminally investigate or prosecute any alcohol or drug abuse patient.[facility] HospitalIn the event this information is protected by the Federal Confidentiality of Alcohol and Drug Abuse Patient Records regulations: The Federal rules restrict any use of the information to criminally investigate or prosecute any alcohol or drug abuse patient.[facility] HospitalIn the event this information is protected by the Federal Confidentiality of Alcohol and Drug Abuse Patient Records regulations: The Federal rules restrict any use of the information to criminally investigate or prosecute any alcohol or drug abuse patient.[facility] HospitalIn the event this information is protected by the Federal Confidentiality of Alcohol and Drug Abuse Patient Records regulations: The Federal rules restrict any use of the information to criminally investigate or prosecute any alcohol or drug abuse patient.[facility] HospitalIn the event this information is protected by the Federal Confidentiality of Alcohol and Drug Abuse Patient Records regulations: The Federal rules restrict any use of the information to criminally investigate or prosecute any alcohol or drug abuse patient.[facility] HospitalIn the event this information is protected by the Federal Confidentiality of Alcohol and Drug Abuse Patient Records regulations: The Federal rules restrict any use of the information to criminally investigate or prosecute any alcohol or drug abuse patient.[facility] HospitalIn the event this information is protected by the Federal Confidentiality of Alcohol and Drug Abuse Patient Records regulations: The Federal rules restrict any use of the information to criminally investigate or prosecute any alcohol or drug abuse patient.[facility] HospitalIn the event this information is protected by the Federal Confidentiality of Alcohol and Drug Abuse Patient Records regulations: The Federal rules restrict any use of the information to criminally investigate or prosecute any alcohol or drug abuse patient.[facility] HospitalIn the event this information is protected by the Federal Confidentiality of Alcohol and Drug Abuse Patient Records regulations: The Federal rules restrict any use of the information to criminally investigate or prosecute any alcohol or drug abuse patient.[facility] HospitalIn the event this information is protected by the Federal Confidentiality of Alcohol and Drug Abuse Patient Records regulations: The Federal rules restrict any use of the information to criminally investigate or prosecute any alcohol or drug abuse patient.[facility] HospitalIn the event this information is protected by the Federal Confidentiality of Alcohol and Drug Abuse Patient Records regulations: The Federal rules restrict any use of the information to criminally investigate or prosecute any alcohol or drug abuse patient.[facility] HospitalIn the event this information is protected by the Federal Confidentiality of Alcohol and Drug Abuse Patient Records regulations: The Federal rules restrict any use of the information to criminally investigate or prosecute any alcohol or drug abuse patient.[facility] HospitalIn the event this information is protected by the Federal Confidentiality of Alcohol and Drug Abuse Patient Records regulations: The Federal rules restrict any use of the information to criminally investigate or prosecute any alcohol or drug abuse patient.[facility] HospitalIn the event this information is protected by the Federal Confidentiality of Alcohol and Drug Abuse Patient Records regulations: The Federal rules restrict any use of the information to criminally investigate or prosecute any alcohol or drug abuse patient.[facility] HospitalIn the event this information is protected by the Federal Confidentiality of Alcohol and Drug Abuse Patient Records regulations: The Federal rules restrict any use of the information to criminally investigate or prosecute any alcohol or drug abuse patient.[facility] HospitalIn the event this information is protected by the Federal Confidentiality of Alcohol and Drug Abuse Patient Records regulations: The Federal rules restrict any use of the information to criminally investigate or prosecute any alcohol or drug abuse patient.[facility] HospitalIn the event this information is protected by the Federal Confidentiality of Alcohol and Drug Abuse Patient Records regulations: The Federal rules restrict any use of the information to criminally investigate or prosecute any alcohol or drug abuse patient.[facility] HospitalIn the event this information is protected by the Federal Confidentiality of Alcohol and Drug Abuse Patient Records regulations: The Federal rules restrict any use of the information to criminally investigate or prosecute any alcohol or drug abuse patient.[facility] HospitalIn the event this information is protected by the Federal Confidentiality of Alcohol and Drug Abuse Patient Records regulations: The Federal rules restrict any use of the information to criminally investigate or prosecute any alcohol or drug abuse patient.[facility] HospitalIn the event this information is protected by the Federal Confidentiality of Alcohol and Drug Abuse Patient Records regulations: The Federal rules restrict any use of the information to criminally investigate or prosecute any alcohol or drug abuse patient.[facility] HospitalIn the event this information is protected by the Federal Confidentiality of Alcohol and Drug Abuse Patient Records regulations: The Federal rules restrict any use of the information to criminally investigate or prosecute any alcohol or drug abuse patient.[facility] HospitalIn the event this information is protected by the Federal Confidentiality of Alcohol and Drug Abuse Patient Records regulations: The Federal rules restrict any use of the information to criminally investigate or prosecute any alcohol or drug abuse patient.[facility] HospitalIn the event this information is protected by the Federal Confidentiality of Alcohol and Drug Abuse Patient Records regulations: The Federal rules restrict any use of the information to criminally investigate or prosecute any alcohol or drug abuse patient.[facility] HospitalIn the event this information is protected by the Federal Confidentiality of Alcohol and Drug Abuse Patient Records regulations: The Federal rules restrict any use of the information to criminally investigate or prosecute any alcohol or drug abuse patient.[facility] HospitalIn the event this information is protected by the Federal Confidentiality of Alcohol and Drug Abuse Patient Records regulations: The Federal rules restrict any use of the information to criminally investigate or prosecute any alcohol or drug abuse patient.[facility] HospitalIn the event this information is protected by the Federal Confidentiality of Alcohol and Drug Abuse Patient Records regulations: The Federal rules restrict any use of the information to criminally investigate or prosecute any alcohol or drug abuse patient.[facility] HospitalIn the event this information is protected by the Federal Confidentiality of Alcohol and Drug Abuse Patient Records regulations: The Federal rules restrict any use of the information to criminally investigate or prosecute any alcohol or drug abuse patient.[facility] HospitalIn the event this information is protected by the Federal Confidentiality of Alcohol and Drug Abuse Patient Records regulations: The Federal rules restrict any use of the information to criminally investigate or prosecute any alcohol or drug abuse patient.[facility] HospitalIn the event this information is protected by the Federal Confidentiality of Alcohol and Drug Abuse Patient Records regulations: The Federal rules restrict any use of the information to criminally investigate or prosecute any alcohol or drug abuse patient.[facility] HospitalIn the event this information is protected by the Federal Confidentiality of Alcohol and Drug Abuse Patient Records regulations: The Federal rules restrict any use of the information to criminally investigate or prosecute any alcohol or drug abuse patient.[facility] HospitalIn the event this information is protected by the Federal Confidentiality of Alcohol and Drug Abuse Patient Records regulations: The Federal rules restrict any use of the information to criminally investigate or prosecute any alcohol or drug abuse patient.[facility] HospitalIn the event this information is protected by the Federal Confidentiality of Alcohol and Drug Abuse Patient Records regulations: The Federal rules restrict any use of the information to criminally investigate or prosecute any alcohol or drug abuse patient.[facility] HospitalIn the event this information is protected by the Federal Confidentiality of Alcohol and Drug Abuse Patient Records regulations: The Federal rules restrict any use of the information to criminally investigate or prosecute any alcohol or drug abuse patient.[facility] HospitalIn the event this information is protected by the Federal Confidentiality of Alcohol and Drug Abuse Patient Records regulations: The Federal rules restrict any use of the information to criminally investigate or prosecute any alcohol or drug abuse patient.[facility] HospitalIn the event this information is protected by the Federal Confidentiality of Alcohol and Drug Abuse Patient Records regulations: The Federal rules restrict any use of the information to criminally investigate or prosecute any alcohol or drug abuse patient.[facility] HospitalIn the event this information is protected by the Federal Confidentiality of Alcohol and Drug Abuse Patient Records regulations: The Federal rules restrict any use of the information to criminally investigate or prosecute any alcohol or drug abuse patient.[facility] HospitalIn the event this information is protected by the Federal Confidentiality of Alcohol and Drug Abuse Patient Records regulations: The Federal rules restrict any use of the information to criminally investigate or prosecute any alcohol or drug abuse patient.[facility] HospitalIn the event this information is protected by the Federal Confidentiality of Alcohol and Drug Abuse Patient Records regulations: The Federal rules restrict any use of the information to criminally investigate or prosecute any alcohol or drug abuse patient.[facility]In the event this information is protected by the Federal Confidentiality of Alcohol and Drug Abuse Patient Records regulations: The Federal rules restrict any use of the information to criminally investigate or prosecute any alcohol or drug abuse patient.[facility] HospitalIn the event this information is protected by the Federal Confidentiality of Alcohol and Drug Abuse Patient Records regulations: The Federal rules restrict any use of the information to criminally investigate or prosecute any alcohol or drug abuse patient.[facility] HospitalIn the event this information is protected by the Federal Confidentiality of Alcohol and Drug Abuse Patient Records regulations: The Federal rules restrict any use of the information to criminally investigate or prosecute any alcohol or drug abuse patient.[facility] HospitalIn the event this information is protected by the Federal Confidentiality of Alcohol and Drug Abuse Patient Records regulations: The Federal rules restrict any use of the information to criminally investigate or prosecute any alcohol or drug abuse patient.[facility] HospitalIn the event this information is protected by the Federal Confidentiality of Alcohol and Drug Abuse Patient Records regulations: The Federal rules restrict any use of the information to criminally investigate or prosecute any alcohol or drug abuse patient.[facility] HospitalIn the event this information is protected by the Federal Confidentiality of Alcohol and Drug Abuse Patient Records regulations: The Federal rules restrict any use of the information to criminally investigate or prosecute any alcohol or drug abuse patient.[facility] HospitalIn the event this information is protected by the Federal Confidentiality of Alcohol and Drug Abuse Patient Records regulations: The Federal rules restrict any use of the information to criminally investigate or prosecute any alcohol or drug abuse patient.[facility] HospitalIn the event this information is protected by the Federal Confidentiality of Alcohol and Drug Abuse Patient Records regulations: The Federal rules restrict any use of the information to criminally investigate or prosecute any alcohol or drug abuse patient.[facility] HospitalIn the event this information is protected by the Federal Confidentiality of Alcohol and Drug Abuse Patient Records regulations: The Federal rules restrict any use of the information to criminally investigate or prosecute any alcohol or drug abuse patient.[facility] HospitalIn the event this information is protected by the Federal Confidentiality of Alcohol and Drug Abuse Patient Records regulations: The Federal rules restrict any use of the information to criminally investigate or prosecute any alcohol or drug abuse patient.[facility] HospitalIn the event this information is protected by the Federal Confidentiality of Alcohol and Drug Abuse Patient Records regulations: The Federal rules restrict any use of the information to criminally investigate or prosecute any alcohol or drug abuse patient.[facility] HospitalIn the event this information is protected by the Federal Confidentiality of Alcohol and Drug Abuse Patient Records regulations: The Federal rules restrict any use of the information to criminally investigate or prosecute any alcohol or drug abuse patient.[facility] HospitalIn the event this information is protected by the Federal Confidentiality of Alcohol and Drug Abuse Patient Records regulations: The Federal rules restrict any use of the information to criminally investigate or prosecute any alcohol or drug abuse patient.[facility] HospitalIn the event this information is protected by the Federal Confidentiality of Alcohol and Drug Abuse Patient Records regulations: The Federal rules restrict any use of the information to criminally investigate or prosecute any alcohol or drug abuse patient.[facility] HospitalIn the event this information is protected by the Federal Confidentiality of Alcohol and Drug Abuse Patient Records regulations: The Federal rules restrict any use of the information to criminally investigate or prosecute any alcohol or drug abuse patient.[facility] HospitalIn the event this information is protected by the Federal Confidentiality of Alcohol and Drug Abuse Patient Records regulations: The Federal rules restrict any use of the information to criminally investigate or prosecute any alcohol or drug abuse patient.[facility] HospitalIn the event this information is protected by the Federal Confidentiality of Alcohol and Drug Abuse Patient Records regulations: The Federal rules restrict any use of the information to criminally investigate or prosecute any alcohol or drug abuse patient.[facility] HospitalIn the event this information is protected by the Federal Confidentiality of Alcohol and Drug Abuse Patient Records regulations: The Federal rules restrict any use of the information to criminally investigate or prosecute any alcohol or drug abuse patient.[facility] HospitalIn the event this information is protected by the Federal Confidentiality of Alcohol and Drug Abuse Patient Records regulations: The Federal rules restrict any use of the information to criminally investigate or prosecute any alcohol or drug abuse patient.[facility] HospitalIn the event this information is protected by the Federal Confidentiality of Alcohol and Drug Abuse Patient Records regulations: The Federal rules restrict any use of the information to criminally investigate or prosecute any alcohol or drug abuse patient.[facility] HospitalIn the event this information is protected by the Federal Confidentiality of Alcohol and Drug Abuse Patient Records regulations: The Federal rules restrict any use of the information to criminally investigate or prosecute any alcohol or drug abuse patient.[facility] HospitalIn the event this information is protected by the Federal Confidentiality of Alcohol and Drug Abuse Patient Records regulations: The Federal rules restrict any use of the information to criminally investigate or prosecute any alcohol or drug abuse patient.[facility] HospitalIn the event this information is protected by the Federal Confidentiality of Alcohol and Drug Abuse Patient Records regulations: The Federal rules restrict any use of the information to criminally investigate or prosecute any alcohol or drug abuse patient.[facility] HospitalIn the event this information is protected by the Federal Confidentiality of Alcohol and Drug Abuse Patient Records regulations: The Federal rules restrict any use of the information to criminally investigate or prosecute any alcohol or drug abuse patient.[facility] HospitalIn the event this information is protected by the Federal Confidentiality of Alcohol and Drug Abuse Patient Records regulations: The Federal rules restrict any use of the information to criminally investigate or prosecute any alcohol or drug abuse patient.[facility] HospitalIn the event this information is protected by the Federal Confidentiality of Alcohol and Drug Abuse Patient Records regulations: The Federal rules restrict any use of the information to criminally investigate or prosecute any alcohol or drug abuse patient.[facility] HospitalIn the event this information is protected by the Federal Confidentiality of Alcohol and Drug Abuse Patient Records regulations: The Federal rules restrict any use of the information to criminally investigate or prosecute any alcohol or drug abuse patient.[facility] HospitalIn the event this information is protected by the Federal Confidentiality of Alcohol and Drug Abuse Patient Records regulations: The Federal rules restrict any use of the information to criminally investigate or prosecute any alcohol or drug abuse patient.[facility] HospitalIn the event this information is protected by the Federal Confidentiality of Alcohol and Drug Abuse Patient Records regulations: The Federal rules restrict any use of the information to criminally investigate or prosecute any alcohol or drug abuse patient.[facility] HospitalIn the event this information is protected by the Federal Confidentiality of Alcohol and Drug Abuse Patient Records regulations: The Federal rules restrict any use of the information to criminally investigate or prosecute any alcohol or drug abuse patient.[facility] HospitalIn the event this information is protected by the Federal Confidentiality of Alcohol and Drug Abuse Patient Records regulations: The Federal rules restrict any use of the information to criminally investigate or prosecute any alcohol or drug abuse patient.[facility] HospitalIn the event this information is protected by the Federal Confidentiality of Alcohol and Drug Abuse Patient Records regulations: The Federal rules restrict any use of the information to criminally investigate or prosecute any alcohol or drug abuse patient.[facility] HospitalIn the event this information is protected by the Federal Confidentiality of Alcohol and Drug Abuse Patient Records regulations: The Federal rules restrict any use of the information to criminally investigate or prosecute any alcohol or drug abuse patient.[facility] HospitalIn the event this information is protected by the Federal Confidentiality of Alcohol and Drug Abuse Patient Records regulations: The Federal rules restrict any use of the information to criminally investigate or prosecute any alcohol or drug abuse patient.[facility] HospitalIn the event this information is protected by the Federal Confidentiality of Alcohol and Drug Abuse Patient Records regulations: The Federal rules restrict any use of the information to criminally investigate or prosecute any alcohol or drug abuse patient.[facility] HospitalIn the event this information is protected by the Federal Confidentiality of Alcohol and Drug Abuse Patient Records regulations: The Federal rules restrict any use of the information to criminally investigate or prosecute any alcohol or drug abuse patient.[facility] HospitalIn the event this information is protected by the Federal Confidentiality of Alcohol and Drug Abuse Patient Records regulations: The Federal rules restrict any use of the information to criminally investigate or prosecute any alcohol or drug abuse patient.[facility] HospitalIn the event this information is protected by the Federal Confidentiality of Alcohol and Drug Abuse Patient Records regulations: The Federal rules restrict any use of the information to criminally investigate or prosecute any alcohol or drug abuse patient.[facility] HospitalIn the event this information is protected by the Federal Confidentiality of Alcohol and Drug Abuse Patient Records regulations: The Federal rules restrict any use of the information to criminally investigate or prosecute any alcohol or drug abuse patient.[facility] HospitalIn the event this information is protected by the Federal Confidentiality of Alcohol and Drug Abuse Patient Records regulations: The Federal rules restrict any use of the information to criminally investigate or prosecute any alcohol or drug abuse patient.[facility] HospitalIn the event this information is protected by the Federal Confidentiality of Alcohol and Drug Abuse Patient Records regulations: The Federal rules restrict any use of the information to criminally investigate or prosecute any alcohol or drug abuse patient.[facility] HospitalIn the event this information is protected by the Federal Confidentiality of Alcohol and Drug Abuse Patient Records regulations: The Federal rules restrict any use of the information to criminally investigate or prosecute any alcohol or drug abuse patient.[facility] HospitalIn the event this information is protected by the Federal Confidentiality of Alcohol and Drug Abuse Patient Records regulations: The Federal rules restrict any use of the information to criminally investigate or prosecute any alcohol or drug abuse patient.[facility] HospitalIn the event this information is protected by the Federal Confidentiality of Alcohol and Drug Abuse Patient Records regulations: The Federal rules restrict any use of the information to criminally investigate or prosecute any alcohol or drug abuse patient.[facility] HospitalIn the event this information is protected by the Federal Confidentiality of Alcohol and Drug Abuse Patient Records regulations: The Federal rules restrict any use of the information to criminally investigate or prosecute any alcohol or drug abuse patient.[facility] HospitalIn the event this information is protected by the Federal Confidentiality of Alcohol and Drug Abuse Patient Records regulations: The Federal rules restrict any use of the information to criminally investigate or prosecute any alcohol or drug abuse patient.[facility] HospitalIn the event this information is protected by the Federal Confidentiality of Alcohol and Drug Abuse Patient Records regulations: The Federal rules restrict any use of the information to criminally investigate or prosecute any alcohol or drug abuse patient.[facility] HospitalIn the event this information is protected by the Federal Confidentiality of Alcohol and Drug Abuse Patient Records regulations: The Federal rules restrict any use of the information to criminally investigate or prosecute any alcohol or drug abuse patient.[facility] HospitalIn the event this information is protected by the Federal Confidentiality of Alcohol and Drug Abuse Patient Records regulations: The Federal rules restrict any use of the information to criminally investigate or prosecute any alcohol or drug abuse patient.[facility] HospitalIn the event this information is protected by the Federal Confidentiality of Alcohol and Drug Abuse Patient Records regulations: The Federal rules restrict any use of the information to criminally investigate or prosecute any alcohol or drug abuse patient.[facility]In the event this information is protected by the Federal Confidentiality of Alcohol and Drug Abuse Patient Records regulations: The Federal rules restrict any use of the information to criminally investigate or prosecute any alcohol or drug abuse patient.[facility] HospitalIn the event this information is protected by the Federal Confidentiality of Alcohol and Drug Abuse Patient Records regulations: The Federal rules restrict any use of the information to criminally investigate or prosecute any alcohol or drug abuse patient.[facility] HospitalIn the event this information is protected by the Federal Confidentiality of Alcohol and Drug Abuse Patient Records regulations: The Federal rules restrict any use of the information to criminally investigate or prosecute any alcohol or drug abuse patient.[facility] HospitalIn the event this information is protected by the Federal Confidentiality of Alcohol and Drug Abuse Patient Records regulations: The Federal rules restrict any use of the information to criminally investigate or prosecute any alcohol or drug abuse patient.[facility] HospitalIn the event this information is protected by the Federal Confidentiality of Alcohol and Drug Abuse Patient Records regulations: The Federal rules restrict any use of the information to criminally investigate or prosecute any alcohol or drug abuse patient.[facility] HospitalIn the event this information is protected by the Federal Confidentiality of Alcohol and Drug Abuse Patient Records regulations: The Federal rules restrict any use of the information to criminally investigate or prosecute any alcohol or drug abuse patient.[facility] HospitalIn the event this information is protected by the Federal Confidentiality of Alcohol and Drug Abuse Patient Records regulations: The Federal rules restrict any use of the information to criminally investigate or prosecute any alcohol or drug abuse patient.[facility] HospitalIn the event this information is protected by the Federal Confidentiality of Alcohol and Drug Abuse Patient Records regulations: The Federal rules restrict any use of the information to criminally investigate or prosecute any alcohol or drug abuse patient.[facility] HospitalIn the event this information is protected by the Federal Confidentiality of Alcohol and Drug Abuse Patient Records regulations: The Federal rules restrict any use of the information to criminally investigate or prosecute any alcohol or drug abuse patient.[facility] HospitalIn the event this information is protected by the Federal Confidentiality of Alcohol and Drug Abuse Patient Records regulations: The Federal rules restrict any use of the information to criminally investigate or prosecute any alcohol or drug abuse patient.[facility] HospitalIn the event this information is protected by the Federal Confidentiality of Alcohol and Drug Abuse Patient Records regulations: The Federal rules restrict any use of the information to criminally investigate or prosecute any alcohol or drug abuse patient.[facility] HospitalIn the event this information is protected by the Federal Confidentiality of Alcohol and Drug Abuse Patient Records regulations: The Federal rules restrict any use of the information to criminally investigate or prosecute any alcohol or drug abuse patient.[facility] HospitalIn the event this information is protected by the Federal Confidentiality of Alcohol and Drug Abuse Patient Records regulations: The Federal rules restrict any use of the information to criminally investigate or prosecute any alcohol or drug abuse patient.[facility] HospitalIn the event this information is protected by the Federal Confidentiality of Alcohol and Drug Abuse Patient Records regulations: The Federal rules restrict any use of the information to criminally investigate or prosecute any alcohol or drug abuse patient.[facility] HospitalIn the event this information is protected by the Federal Confidentiality of Alcohol and Drug Abuse Patient Records regulations: The Federal rules restrict any use of the information to criminally investigate or prosecute any alcohol or drug abuse patient.[facility] HospitalIn the event this information is protected by the Federal Confidentiality of Alcohol and Drug Abuse Patient Records regulations: The Federal rules restrict any use of the information to criminally investigate or prosecute any alcohol or drug abuse patient.[facility] HospitalIn the event this information is protected by the Federal Confidentiality of Alcohol and Drug Abuse Patient Records regulations: The Federal rules restrict any use of the information to criminally investigate or prosecute any alcohol or drug abuse patient.[facility] HospitalIn the event this information is protected by the Federal Confidentiality of Alcohol and Drug Abuse Patient Records regulations: The Federal rules restrict any use of the information to criminally investigate or prosecute any alcohol or drug abuse patient.[facility] HospitalIn the event this information is protected by the Federal Confidentiality of Alcohol and Drug Abuse Patient Records regulations: The Federal rules restrict any use of the information to criminally investigate or prosecute any alcohol or drug abuse patient.[facility] <item><item><item><item><item><item><item><item><item><item><item><item><item><i tem><item> Privacy Markings (unrecogniz ed section and content) Section Author: Romeo Tinoco PROHIBITION ON REDISCLOSURE OF CONFIDENTIAL INFORMATION This notice accompanies a disclosure of information concerning a client made to you with the consent of such client. Section Author: Romeo Tinoco PROHIBITION ON REDISCLOSURE OF CONFIDENTIAL INFORMATION This notice accompanies a disclosure of information concerning a client made to you with the consent of such client. Section Author: Romeo Tinoco PROHIBITION ON REDISCLOSURE OF CONFIDENTIAL INFORMATION This notice accompanies a disclosure of information concerning a client made to you with the consent of such client. Section Author: Romeo Tinoco PROHIBITION ON REDISCLOSURE OF CONFIDENTIAL INFORMATION This notice accompanies a disclosure of information concerning a client made to you with the consent of such client. Section Author: Romeo Tinoco PROHIBITION ON REDISCLOSURE OF CONFIDENTIAL INFORMATION This notice accompanies a disclosure of information concerning a client made to you with the consent of such client. Section Author: Romeo Tinoco PROHIBITION ON REDISCLOSURE OF CONFIDENTIAL INFORMATION This notice accompanies a disclosure of information concerning a client made to you with the consent of such client. Section Author: Romeo Tinoco PROHIBITION ON REDISCLOSURE OF CONFIDENTIAL INFORMATION This notice accompanies a disclosure of information concerning a client made to you with the consent of such client. Section Author: Romeo Tinoco PROHIBITION ON REDISCLOSURE OF CONFIDENTIAL INFORMATION This notice accompanies a disclosure of information concerning a client made to you with the consent of such client. Section Author: Romeo Tinoco PROHIBITION ON REDISCLOSURE OF CONFIDENTIAL INFORMATION This notice accompanies a disclosure of information concerning a client made to you with the consent of such client. Section Author: Romeo Tinoco PROHIBITION ON REDISCLOSURE OF CONFIDENTIAL INFORMATION This notice accompanies a disclosure of information concerning a client made to you with the consent of such client. Section Author: Romeo Tinoco PROHIBITION ON REDISCLOSURE OF CONFIDENTIAL INFORMATION This notice accompanies a disclosure of information concerning a client made to you with the consent of such client. Section Author: Romeo Tinoco PROHIBITION ON REDISCLOSURE OF CONFIDENTIAL INFORMATION This notice accompanies a disclosure of information concerning a client made to you with the consent of such client. Section Author: Romeo Tinoco PROHIBITION ON REDISCLOSURE OF CONFIDENTIAL INFORMATION This notice accompanies a disclosure of information concerning a client made to you with the consent of such client. Section Author: Romeo Tinoco PROHIBITION ON REDISCLOSURE OF CONFIDENTIAL INFORMATION This notice accompanies a disclosure of information concerning a client made to you with the consent of such client. Section Author: Romeo Tinoco PROHIBITION ON REDISCLOSURE OF CONFIDENTIAL INFORMATION This notice accompanies a disclosure of information concerning a client made to you with the consent of such client. FOR RECORDS PERTAINING TO PATIENTS WHO ARE OR HAVE BEEN ENROLLED IN A CHEMICAL DEPENDENCY/SUBSTANCEABUSE PROGRAM, SOME INFORMATION MAY BE OMITTED. This clinical summary was aggregated from multiple sources. Caution should be exercised in using it in the provision of clinical care. This summary normalizes information from multiple sources, and as a consequence, information in this document may materially change the coding, format and clinical context of patient data. In addition, data may be omitted in some cases. CLINICAL DECISIONS SHOULD BE BASED ON THE PRIMARY CLINICAL RECORDS. [facility], [employer] [facility]. provides no warranty or guarantee of the accuracy or completeness of information in this document.
[2024-08-26 17:23] LABS: Internal QC Validated? YES +Cl - CLEAR BKGD; Pregnancy, Serum, hCG Quali. NEGATIVE Negative; Record Kit Lot#, Serum Preg. 947241
--- NOTE | 2024-08-26 17:40 | RAD_ITS ---
PROCEDURE: CHEST PA AND LATERAL 08/26/2024 REASON FOR EXAM: PAIN TECHNIQUE: CHEST PA AND LATERAL COMPARISON: None FINDINGS: No focal consolidation. No pleural effusion or pneumothorax. Cardiac silhouette is within normal limits. No acute fractures. RAD/Chest PA and Lateral IMPRESSION: No focal consolidations. Reading Location: [id number]
[2024-08-26 18:08] VITALS: BP 105/75; PULSE 82; RESP 16; O2SAT 98
[2024-08-26] MEDS: Lidocaine 2% Viscous15 ML UDC 15 ML PO (18:17)
[2024-08-26] MEDS: 0.9% Normal Saline (1000mL) 1,000 ML 15 ML IV (18:17)
[2024-08-26] MEDS: Mag Hydrox/Al Hydrox/Simeth 30 ML UDC PO (18:17)
[2024-08-26 19:07] VITALS: BP 110/78; PULSE 80; RESP 12; TEMP 36.8; O2SAT 99
--- NOTE | 2024-08-26 19:10 | CM.ED ---
Social Work Date of referral: 08/26/2024 Reason for referral: Resources Referred by: ED nurse Patient provided consent to social work visit. Patient had questions regarding how to access transportation services through her insurance. Patient and her significant other are currently staying at the [facility] which patient stated her mother and her significant other have paid for through September 17 which is when patient and her significant other get to move into their apartment. Patient's mother and grandmother live out of town but both were described as big supports. rotary shear worker helper assisted patient with getting transportation secured. No other assistance requested at this time. Sravani Skaggs, OIL SPOT WASHER, PRESIDENTIAL SUPPORT SPECIALIST
[2024-08-26 19:39] LABS: Troponin T High Sens 2 HR < 6 ng/L (<=14)
== END 2024-08-26 19:12 | disposition left against medical advice (07) ==
PROVIDERS: Emergency Provider Emergency Medicine; Visit Provider Emergency Medicine
DX: R07.89 Other chest pain (principal); R00.0 Tachycardia, unspecified; Z53.29 Procedure and treatment not carried out because of patient's decision for other reasons; R11.2 Nausea with vomiting, unspecified; R06.09 Other forms of dyspnea; M25.511 Pain in right shoulder; M25.512 Pain in left shoulder; J45.909 Unspecified asthma, uncomplicated; Z86.718 Personal history of other venous thrombosis and embolism
CPT/HCPCS: 71046; 80048; 84484; 84703; 85025; 85379; 85610; 85730; 93005; 96365; 96375; 99285; A4216; J2405

== ENCOUNTER 2024-08-31 00:04 | Emergency (ER) | payer MEDICAID, SELFPAY ==
[2024-08-31 00:04] VITALS: BP 120/87; PULSE 76; RESP 14; TEMP 36.6; O2SAT 98; BMI 26.4
--- NOTE | 2024-08-31 01:28 | EDS_ITS ---
HPI History of Present Illness Chief Complaint: Nausea/Vomiting Narrative Narrative: Chief complaint and HPI: Nausea, vomiting. 33-year-old female with past medical history of alopecia, IBS presents for evaluation of nausea and vomiting. Patient states that she has had a lot of GI issues consisting of abdominal pain, nausea, vomiting, diarrhea. States that she has a GI follow-up upcoming. She states that for the past 3 days she has had increase in her nausea, vomiting, diarrhea. She states that she is supposed to garbage pick up man a Protonix prescription however she had yet to pick this up. She denies any fever, chills, shortness of breath, chest pain, dysuria, hematuria. Review of systems: See HPI Medications: As listed on the chart Allergies: As listed on the chart PFSH: Per chart Vital signs: As listed on the chart. Reviewed. 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 Instructions: did not garbage pick up man Allergy/AdvReac Type Severity Reaction Status Date / Time Environmental Allergies: Allergy Severe Anaphylaxis Verified 08/31/24 00:04 Uncoded peanut oil Allergy Severe Anaphylaxis Verified 08/31/24 00:04 almond oil Allergy Unknown Shortness Verified 08/31/24 00:04 of breath cat dander Allergy Unknown Itching, Verified 08/31/24 00:04 SOB ferrous sulfate Allergy Unknown Hives Verified 08/31/24 00:04 loratadine Allergy Unknown Rash and Verified 08/31/24 00:04 swelling salsalate Allergy Unknown Hives, Verified 08/31/24 00:04 itching and rash sulfasalazine Allergy Unknown Rash Verified 08/31/24 00:04 ciprofloxacin (From Cipro) Allergy Hives Verified 08/31/24 00:04 diphenhydramine (From Allergy Hives Verified 08/31/24 00:04 Benadryl) hydrocortisone Allergy Swelling Verified 08/31/24 00:04 Sulfa (Sulfonamide Allergy HIVES, Verified 08/31/24 00:04 Antibiotics) SWELLING tree nut (tree nuts) Allergy Hives Verified 08/31/24 00:04 Social History (Updated 08/30/24 @ 16:00 by Tanya Lord) Smoking Status: Never smoker alcohol intake: never substance use type: does not use EXAM Physical Exam Const Vital Signs: 08/31/24 00:04 Temperature 97.9 F Temperature Source Oral Pulse Rate 76 Respiratory Rate 14 Blood Pressure 120/87 H Blood Pressure Mean 98 Pulse Ox 98 MDM MDM MDM Narrative Medical decision making narrative: 33-year-old female with past medical history of alopecia, IBS presents for evaluation of nausea and vomiting. Patient states that she has had a lot of GI issues consisting of abdominal pain, nausea, vomiting, diarrhea. States that she has a GI follow-up upcoming. She states that for the past 3 days she has had increase in her nausea, vomiting, diarrhea. States she is post to be on Protonix however never picked up the prescription. See physical exam findings. Differential diagnosis includes but is not limited to IBS, gastroenteritis, diverticulitis, GERD, pancreatitis, , UTI. On chart review, patient was recently seen in our department for chest pain. Currently denying any chest pain at this time. NS bolus, Pepcid, Zofran ordered. Abdominal pain workup ordered. Shortly after walking out of the room, nurses report that patient eloped. I did not have the opportunity to talk to the patient prior to elopement. She told nursing that she has a doctor's appointment tomorrow and that she needs to leave. Impression: 1. Abdominal pain 2. Nausea and vomiting 3. Diarrhea 4. Elopement Discharge Plan Triage Chief Complaint: Nausea/Vomiting ED Provider: Eugenio Haynes Dx/Rx/DC Orders Prescriptions: No Action pantoprazole 40 mg tablet,delayed release (DR/EC) 40 mg PO DAILY Qty: 30 0RF Primary Care Provider: Care Physician,No Primary Referrals: Care Physician,No Primary [Primary Care Provider] - Print Language: Yoruba Disposition Disposition: Elopement Discharge Date/Time: 08/31/24 01:44
== END 2024-08-31 01:44 | disposition left against medical advice (07) ==
PROVIDERS: Emergency Provider Surgery; Visit Provider Surgery
DX: R10.9 Unspecified abdominal pain (principal); R11.2 Nausea with vomiting, unspecified; R19.7 Diarrhea, unspecified; Z53.29 Procedure and treatment not carried out because of patient's decision for other reasons
CPT/HCPCS: J2405; 99284; A4216

== ENCOUNTER 2024-09-04 09:41 | Emergency (ER) | payer MEDICAID, SELFPAY ==
[2024-09-04 09:41] VITALS: BP 130/96; PULSE 85; RESP 14; TEMP 37.1; O2SAT 98; BMI 25.4
--- NOTE | 2024-09-04 10:39 | EX.ED.DYSGE1 ---
HPI History of Present Illness Chief Complaint: Back Informant: patient Onset/Context/Timing Onset: Days Context: Gradual Onset Timing: Continuous Current Severity: Mild Maximum Severity: Mild Narrative Narrative: 33-year-old female history of [place], irritable bowel, degenerative disc disease of her neck, alopecia and low blood pressure. Patient states she is having neck and back pain. Denies any fall injury or trauma. Says been going on for approximately a week. Denies prior history. Says it is more uncomfortable to move. Denies any fever. no diarrhea. No dysuria. She states she saw GI earlier today for a checkup. Prior similar symptoms: Yes Recent Illness/Hospitalization: No [facility] Medical History Liver cirrhosis secondary to ADEN Blurred vision Headache Cervical spondylosis Cervical radiculopathy Cyst of pituitary gland Syncope, vasovagal Iron deficiency Alopecia Tachycardia IBS (irritable bowel syndrome) Home Medications ?Medication ?Instructions ?Recorded ?Last Taken ?Type pantoprazole 40 mg tablet,delayed 40 mg PO DAILY #30 tabs 08/26/24 Unknown Rx release Held on 08/31/24. Instructions: did not continuous pickling line pickler metaxalone 800 mg tablet 800 mg PO TID 7 days #21 tabs 09/04/24 Unknown Rx Allergy/AdvReac Type Severity Reaction Status Date / Time Environmental Allergies: Allergy Severe Anaphylaxis Verified 09/04/24 09:41 Uncoded peanut oil Allergy Severe Anaphylaxis Verified 09/04/24 09:41 almond oil Allergy Unknown Shortness Verified 09/04/24 09:41 of breath cat dander Allergy Unknown Itching, Verified 09/04/24 09:41 SOB ferrous sulfate Allergy Unknown Hives Verified 09/04/24 09:41 loratadine Allergy Unknown Rash and Verified 09/04/24 09:41 swelling salsalate Allergy Unknown Hives, Verified 09/04/24 09:41 itching and rash sulfasalazine Allergy Unknown Rash Verified 09/04/24 09:41 ciprofloxacin (From Cipro) Allergy Hives Verified 09/04/24 09:41 diphenhydramine (From Allergy Hives Verified 09/04/24 09:41 Benadryl) hydrocortisone Allergy Swelling Verified 09/04/24 09:41 Sulfa (Sulfonamide Allergy HIVES, Verified 09/04/24 09:41 Antibiotics) SWELLING tree nut (tree nuts) Allergy Hives Verified 09/04/24 09:41 Social History Smoking Status: Never smoker alcohol intake: never substance use type: does not use ROS ROS ED ROS Narrative Back and neck pain. No trauma. Constitutional Constitutional ED: Denies chills or fever(s) Eyes Eyes: Denies blurry vision ENT ENT ED: Denies ear pain Cardiovascular Cardiovascular: Denies chest pain Respiratory/Chest Respiratory/Chest: Denies cough or dyspnea Gastrointestinal Gastrointestinal: Denies abdominal pain or diarrhea Genitourinary Genitourinary ED: Denies dysuria or hematuria Musculoskeletal Musculoskeletal: Reports back pain and neck pain; Denies arthralgias Integumentary Denies abscess or Abrasions Neurologic Neurologic: Denies headache(s) Psychiatric Psychiatric: Denies anxiety or depression Endocrine Endocrinology: Denies cold intolerance Hematologic/Lymphatic Hematologic/Lymphatic: Reports none Allergic/Immunologic Allergic/Immunologic ED: Denies mouth swelling, tongue swelling or urticaria EXAM Physical Exam Narrative Exam Narrative: Well-appearing 33-year-old female. Vital signs are stable afebrile. Blood pressure 130/96. Pulse ox 90% on room air no hypoxia. H EENT exam patient has alopecia. Pupils round react to light. Moist mucous membranes. Neck nontender no lymphadenopathy. She does have paracervical soft tissue tenderness but no spine tenderness. No lymphadenopathy. Normal range of motion of her neck. She also has reproducible upper back pain and upper chest wall pain. Heart regular rhythm no murmur rate about 80. Lungs clear to auscultation bilaterally. Abdomen soft, nontender, nondistended, normal bowel sounds without peritoneal signs. Patient is moving all 4 extremities. Normal production expediter strength. Normal dorsi plantarflexion. Normal radial pulses. Calves are nontender without edema or cords. Neurologically she is awake and alert. Answering questions and following commands. During the exam the patient wanted to speak with one of the nurses who I had talked with her. She kept requesting her boyfriend who is not with her and she states he is currently working. Const Vital Signs: 09/04/24 09:41 Temperature 98.7 F Temperature Source Temporal Pulse Rate 85 Respiratory Rate 14 Blood Pressure 130/96 H Blood Pressure Mean 107 Pulse Ox 98 Oxygen Delivery Method Room Air Positive well nourished and well developed; Negative for obese, cachectic, contractures or unkempt General Appearance ED: well developed and NAD; Negative for unkempt, cachectic, contractures, cyanotic, diaphoretic or pallor Nutritional Appearance: Negative for cachectic or obese HEENT Reports moist mucous membranes Negative for trauma or tenderness Eyes PERRL and EOMs intact bilaterally General Eye ED: Negative for pale conjunctiva or scleral icterus Neck no lymphadenopathy, supple and no JVD Neck Narrative: Soft tissue tenderness. General: tenderness Chest Wall inspection of chest normal and palpation of chest normal Resp normal respiratory effort and clear to auscultation bilaterally Effort and Inspection: Negative for retractions Auscultation: Negative for rales, rhonchi or wheezes Cardio regular rate, regular rhythm, S1 normal heart sound, S2 normal heart sound and no murmurs Rate: Negative for bradycardia or tachycardic Rhythm: Negative for abnormal rhythm GI normal to inspection, nondistended, normoactive bowel sounds, non-tender, non-distended and no masses Auscultation: normoactive bowel sounds Palpation: soft; Negative for tender, guarding, splenomegaly, mass or rebound tenderness present Back/Spine no CVA tenderness General Back: Negative for CVA tenderness Cervical Spine: Negative for cervical spine tenderness Thoracic Spine / Upper Back: Negative for thoracic spinal tenderness Lumbar Spine / Lower Back: Negative for lumbar spinal tenderness Extremity General Extremety ED: Negative for edema or tenderness General Extremity: Negative for edema Neuro oriented x3 and CN's II-XII intact bilaterally Sensorium / Orientation: alert; Negative for orientation impaired Motor Exam: strength 5/5 throughout Psych mental status grossly normal Psych Narrative: Abnormal affect. Appearance: Negative for unkempt Mood & Affect: anxious Skin no rashes or lesions noted, no wounds and skin turgor normal General Skin Exam: elasticity normal; Negative for jaundice or pallor Lesions: No lesion noted Rashes: No rashes noted Trauma: Negative for abrasion Wounds: Negative for wounds noted MDM MDM MDM Narrative Medical decision making narrative: 33-year-old female with reproducible. Soft tissue tenderness of her neck upper back and upper chest. Appears to be musculoskeletal. No history of trauma. Otherwise exam benign. Patient is requesting CAT scans and other testing. I explained her we would do any test we felt was necessary and would benefit her care but that she did not need a CAT scan at this time with no history of trauma and a benign exam. She will be discharged to home. Tylenol and ibuprofen for pain. Skelaxin as a muscle relaxant. Outpatient follow-up. Discharge Plan Triage Chief Complaint: Back ED Provider: Kody Kan Dx/Rx/DC Orders Clinical Impression: Neck pain, Back pain, History of degenerative disc disease Instructions: ED Back Pain (Acute or Chronic), ED Neck Pain Prescriptions: New metaxalone 800 mg tablet 800 mg PO TID 7 Days Qty: 21 0RF No Action pantoprazole 40 mg tablet,delayed release (DR/EC) 40 mg PO DAILY Qty: 30 0RF Primary Care Provider: Pito Montaño Referrals: Sharyn Rush MD [Med Staff - Pathology Secretary/Transcriptionist] - 1 Week if not improving Care Physician,No Primary [Non-Staff] - Activity Restrictions/Additional Instructions: Follow-up with a local primary care provider. Ibuprofen and Tylenol for pain. Hot shower in your bath. Skelaxin is a muscle relaxant. Print Language: Andorran Disposition Disposition: Home, Self Care
[2024-09-04 10:58] VITALS: BP 128/74; PULSE 78; RESP 18; TEMP 36.6; O2SAT 98
== END 2024-09-04 10:59 | disposition home or self-care (01) ==
LOC: ED 10:45
PROVIDERS: Emergency Provider Emergency Medicine; PCP Internal Medicine; Visit Provider Emergency Medicine
DX: M50.30 Other cervical disc degeneration, unspecified cervical region (principal); F23 Brief psychotic disorder; K74.60 Unspecified cirrhosis of liver; I95.9 Hypotension, unspecified; S40.929A Unspecified superficial injury of unspecified upper arm, initial encounter; X58.XXXA Exposure to other specified factors, initial encounter; K75.81 Nonalcoholic steatohepatitis (NASH); K58.9 Irritable bowel syndrome, unspecified; L65.9 Nonscarring hair loss, unspecified; R07.89 Other chest pain; Z79.899 Other long term (current) drug therapy
CPT/HCPCS: 80048; 80307; 82077; 84703; 85025; 96372; 99282; 99283; 99284

== ENCOUNTER 2024-09-04 22:37 | Emergency (ER) | payer MEDICAID, SELFPAY ==
[2024-09-04 22:37] VITALS: BP 126/100; PULSE 103; RESP 14; TEMP 36.2; O2SAT 100; BMI 24.9
--- NOTE | 2024-09-05 01:07 | EDS_ITS ---
HPI History of Present Illness Chief Complaint: Upper Extremity Injury Narrative Narrative: I went into the room to evaluate the patient. The patient states that she has a boyfriend and will not allow a male physician to evaluate her. 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 Instructions: did not pickle pumper metaxalone 800 mg tablet 800 mg PO TID 7 days #21 tab s 09/04/24 Unknown Rx Allergy/AdvReac Type Severity Reaction Status Date / Time Environmental Allergies: Allergy Severe Anaphylaxis Verified 09/04/24 22:37 Uncoded peanut oil Allergy Severe Anaphylaxis Verified 09/04/24 22:37 almond oil Allergy Unknown Shortness Verified 09/04/24 22:37 of breath cat dander Allergy Unknown Itching, Verified 09/04/24 22:37 SOB ferrous sulfate Allergy Unknown Hives Verified 09/04/24 22:37 loratadine Allergy Unknown Rash and Verified 09/04/24 22:37 swelling salsalate Allergy Unknown Hives, Verified 09/04/24 22:37 itching and rash sulfasalazine Allergy Unknown Rash Verified 09/04/24 22:37 ciprofloxacin (From Cipro) Allergy Hives Verified 09/04/24 22:37 diphenhydramine (From Allergy Hives Verified 09/04/24 22:37 Benadryl) hydrocortisone Allergy Swelling Verified 09/04/24 22:37 Sulfa (Sulfonamide Allergy HIVES, Verified 09/04/24 22:37 Antibiotics) SWELLING tree nut (tree nuts) Allergy Hives Verified 09/04/24 22:37 Social History Smoking Status: Never smoker alcohol intake: never substance use type: does not use EXAM Physical Exam Const Vital Signs: 09/04/24 22:37 Temperature 97.1 F L Temperature Source Temporal Pulse Rate 103 H Respiratory Rate 14 Blood Pressure 126/100 H Blood Pressure Mean 108 Pulse Ox 100 Oxygen Delivery Method Room Air Discharge Plan Triage Chief Complaint: Upper Extremity Injury ED Provider: Trey Stephens Dx/Rx/DC Orders Prescriptions: No Action metaxalone 800 mg tablet 800 mg PO TID 7 Days Qty: 21 0RF pantoprazole 40 mg tablet,delayed release (DR/EC) 40 mg PO DAILY Qty: 30 0RF Primary Care Provider: Pito Montaño Referrals: Pito Montaño MD [Primary Care Provider] - Print Language: [place] Disposition Disposition: LEFT WITHOUT BEING SEEN
--- NOTE | 2024-09-05 03:00 | ED.RN ---
This nurse responded to room [address] after [address] Stephens was in the room with the patient and she is screaming at him no you need to get me a female doctor. This nurse attempted to address pt complaints, unsuccessful. Pt continued to yell at this nurse. Pt stated I have to see a female doctor you cannot refuse me. This nurse informed pt that a doctor has been in to see her and she refused to let him examine her. Pt continued to yell that she was being refused care. Security called to bedside. This nurse explained situation to security, security attempted to assist pt in leaving. Pt uncooperative. Security called [employer] to assist. Pt still refused to leave. Pt escorted/assisted by security and [employer], pt began fighting and ended up being assisted to the ground and handcuffed by [employer] officer. This nurse called dispatch and requested additional officers. Pt was issued no trespass per [facility] policy and no trespass from Karen VARGAS. Pt was taken to senior care.
== END 2024-09-05 01:46 | disposition left against medical advice (07) ==
PROVIDERS: Emergency Provider Emergency Medicine; PCP Internal Medicine; Visit Provider Emergency Medicine
DX: S40.929A Unspecified superficial injury of unspecified upper arm, initial encounter (principal); Z53.21 Procedure and treatment not carried out due to patient leaving prior to being seen by health care provider; X58.XXXA Exposure to other specified factors, initial encounter
CPT/HCPCS: 99284

== ENCOUNTER 2024-09-05 11:50 | Emergency (ER) | payer MEDICAID, SELFPAY ==
[2024-09-05 11:51] VITALS: BP 117/84; PULSE 79; RESP 14; TEMP 36.6; O2SAT 98
[2024-09-05 13:10] VITALS: BMI 24.9
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
[2024-09-05 13:46] LABS: Hematocrit 40.7 % (37-47); Hemoglobin 13.6 g/dL (12.0-15.0); Immature Granulocytes Count 0.020 X10^3/uL (0.0-0.0); Mean Corp Hgb Conc 33.4 g/dL (32-36); Mean Corpuscular Volume 84.8 fL (81-99); Mean Platelet Vol. 10.2 fl (6.2-12.0); NRBC Flagged by Analyzer 0 % (0-5); Platelet Count 243 K/mm3 (150-450); RBC Distribution Width CV 13.2 % (11.6-14.6); RBC Distribution Width SD 40.5 fl (35.1-43.9); Red Blood Count 4.80 M/mm3 (4.2-5.4); White Blood Count 8.1 K/mm3 (4.4-11.0)
[2024-09-05] MEDS: Lorazepam 2 MG/ML WCH Syringe IM (13:51)
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
[2024-09-05 14:04] LABS: Barbiturate Urine NEGATIVE (< 200 ng/mL); Benzodiazepine Urine NEGATIVE (< 200 ng/mL); PCP Urine NEGATIVE (< 25 ng/mL); THC Urine NEGATIVE (< 50 ng/mL)
[2024-09-05 14:11] LABS: Internal QC Validated? YES +Cl - CLEAR BKGD; Pregnancy, Serum, hCG Quali. NEGATIVE Negative; Record Kit Lot#, Serum Preg. 0000947241
[2024-09-05 14:32] LABS: Anion Gap 12 (5-15); BUN 9 mg/dL (4-19); BUN/Creat Ratio 13.3 RATIO (10-20); Calcium,Total 9.6 mg/dL (7.6-11.0); Carbon Dioxide 22.0 mmol/L (21.0-32.0); Chloride 103 mmol/L (98-108); Estimated Creatinine Clearance 96.58 ml/min (50-250); Glucose 92 mg/dL (70-99); Potassium 4.7 mmol/L (3.3-5.1)
[2024-09-05 14:33] LABS: Alcohol, Blood (Medical)-Serum < 10.1 mg/dL (<=10.0)
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
--- NOTE | 2024-09-05 17:37 | CM.ED ---
Social Work SW contacted [facility] and confirmed open bed, [facility] Accepting physician Dr. Carmichael, N2N [phone] Option 3. [place] slip faxed. Kirsty Gibbs, ROVING WINDER, FLAKE CUTTER OPERATOR
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
--- NOTE | 2024-09-05 22:07 | ED.RN ---
THIS NURSE TOOK OVER CARE OF THIS PT UPON START OF SHIFT AT 1500. THIS PT WAS SLEEPING DUE TO MEDICATIONS GIVEN FROM PT BEING AGGRESSIVE. PT SLEPT WHILE UNDER THIS NURSES CARE FROM [phone]. LINUS DOSS TOOK OVER PT CARE.
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
--- NOTE | 2024-09-05 22:15 | ED.RN ---
THIS NURSE WAS NOT CARING FOR PT AT THE TIME OF DISCHARGE. LINUS DOSS STATES PT WAS NOT WILLING TO HAVE VS TAKEN AND SHE HAD TO CASSANDRA ARCHITECT HER ONTO THE COT THIS NURSE ASKED LINUS DOSS IF SHE WANTS TO MAKE NOTE OF THE INTERACTION OR DISPO INFORMATION BUT SHE JUST TOLD THIS NURSE SHE REFUSED VS AND THAT IS IT THIS NURSE DID NOT WITNESS PT LEAVE THE FACILITY WITH [facility].
--- NOTE | 2024-09-06 15:19 | CM.ED ---
Social work Received call from patient's mother, Matilda Price (ph: [phone]) who reportedly spoke with Kirsty PIZANO last evening. Patient's mother was told where patient was discharged to and patient's mother expressed not hearing from patient yet, asked how long patient would be at [facility], and asked this SW why patient had not called. This SW expressed not knowing the answers to those questions due to not being the SW who assessed patient and expressed how every facility is different. SW provided [facility]'s phone number for patient's mother to call to try to get answers to the above questions. Angeles Wang, SCHEME TECHNICIAN, INSURANCE FOLLOW UP REP
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
== END 2024-09-05 22:18 ==
PROVIDERS: Emergency Provider Emergency Medicine; PCP Internal Medicine; Visit Provider Emergency Medicine
DX: F23 Brief psychotic disorder (principal); K74.60 Unspecified cirrhosis of liver; K75.81 Nonalcoholic steatohepatitis (NASH); Z79.899 Other long term (current) drug therapy
CPT/HCPCS: 80048; 80307; 82077; 84703; 85025; 96372; 99283

== ENCOUNTER 2024-09-25 11:43 | Emergency (ER) | payer MEDICAID, SELFPAY ==
[2024-09-25 11:43] VITALS: BP 133/101; PULSE 84; RESP 18; TEMP 36.2; O2SAT 100; BMI 25.1
[2024-09-25 12:31] LABS: Color, Urine Yellow (Yellow); Glucose, Dipstick Normal (Normal); Ketone-Dipstick Negative (Negative); Leukocyte Esterase-Dipstick Negative /ul (Negative); Nitrite-Dipstick Negative (Negative); Occult Blood-Urine 150 /ul (Negative); Protein-Dipstick 15 mg/dl (Negative); Specific Gravity, Urine 1.025 (1.002-1.030); Urine Bilirubin Dipstick Negative (Negative)
[2024-09-25] MEDS: Lorazepam 2 MG/ML WCH Syringe 0.5 MG IV (12:38)
[2024-09-25] MEDS: 0.9% Normal Saline (1000mL) 1,000 ML 999 ML IV (12:38)
[2024-09-25] MEDS: Famotidine 200 MG/20 ML MDV 20 MG in 0.9% Normal Saline (Pres. free 8 ML 300 MG IV (12:38)
[2024-09-25 12:40] LABS: Mucous, Urine 1+ /hpf (<or=2+); Red Blood Cells-Urine 0-5 SEEN /hpf (0-5); Squamous Epithelial Cells - UA 0-5 SEEN /hpf (5-10)
[2024-09-25 12:42] LABS: Hematocrit 38.8 % (37-47); Hemoglobin 13.0 g/dL (12.0-15.0); Immature Granulocytes Count 0.020 X10^3/uL (0.0-0.0); Mean Corp Hgb Conc 33.5 g/dL (32-36); Mean Corpuscular Volume 84.9 fL (81-99); Mean Platelet Vol. 9.8 fl (6.2-12.0); NRBC Flagged by Analyzer 0 % (0-5); Platelet Count 273 K/mm3 (150-450); RBC Distribution Width CV 13.3 % (11.6-14.6); RBC Distribution Width SD 40.7 fl (35.1-43.9); Red Blood Count 4.57 M/mm3 (4.2-5.4); White Blood Count 7.4 K/mm3 (4.4-11.0)
[2024-09-25 13:01] LABS: Internal QC Validated? YES +Cl - CLEAR BKGD; Pregnancy, Serum, hCG Quali. NEGATIVE Negative; Record Kit Lot#, Serum Preg. 0000962302
[2024-09-25 13:38] LABS: Lipase 29 U/L (13-75)
[2024-09-25 13:50] LABS: AST(SGOT) 20 U/L (<=31); Alanine Aminotransfer ALT/SGPT 26 U/L (<=34); Albumin, Serum 4.7 g/dL (3.5-5.0); Alkaline Phosphatase 50 U/L (35-104); Anion Gap 12 (5-15); BUN 15 mg/dL (4-19); BUN/Creat Ratio 19.7 RATIO (10-20); Calcium,Total 9.6 mg/dL (7.6-11.0); Carbon Dioxide 23.8 mmol/L (21.0-32.0); Chloride 105 mmol/L (98-108); Estimated Creatinine Clearance 82.87 ml/min (50-250); Globulin 3.3 g/dL (2.2-4.2); Glucose 100 mg/dL (70-99); Potassium 3.7 mmol/L (3.3-5.1)
[2024-09-25 13:57] VITALS: BP 120/97; PULSE 77; RESP 17; O2SAT 99
--- NOTE | 2024-09-25 14:00 | CT_ITS ---
PROCEDURE: ABDOMEN/PELVIS WITH CONTRAST 09/25/2024 REASON FOR EXAM: ABD PAIN, VOMITING TECHNIQUE: ABDOMEN/PELVIS WITH CONTRAST Coronal and Sagittal reconstruction series were provided. CONTRAST: 100 mL of Isovue 370 One or more dose reduction techniques were used (e.g., Automated exposure control, adjustment of the mA and/or kV according to patient size, use of iterative reconstruction technique. RADIATION DOSE SUMMARY: DLP: 273 mGycm COMPARISON: None FINDINGS: Limited sections of the lung bases demonstrate no focal pulmonary mass or consolidations. The liver, spleen, pancreas, and both adrenal glands demonstrate no acute findings. Hepatomegaly to 16.9 cm. The gallbladder is surgically removed The stomach is unremarkable. The small bowel loops are not dilated. The appendix is not clearly identified, although there are no secondary signs of appendicitis. No colonic obstruction. There is no free air or significant free fluid. Scattered tiny hypodensities throughout bilateral kidneys too small to accurately characterize. No obstructive uropathy. The urinary bladder is partially distended. The pelvic structures are intact. There is no solid pelvic mass. No significant lymphadenopathy. The aorta and IVC demonstrate no acute findings. Visualized osseous structures demonstrate no acute abnormality. Nonspecific bilateral gluteal soft tissue nodules, left more prominent than right. CT/Abdomen/Pelvis WITH Contrast IMPRESSION: No acute intra-abdominal process. Reading Location: [id number]
[2024-09-25 15:00] VITALS: BP 128/76; PULSE 79; RESP 15; O2SAT 100
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
[2024-09-25 16:00] VITALS: BP 128/76; PULSE 79; RESP 15; TEMP 36.6; O2SAT 100
--- NOTE | 2024-09-25 18:06 | CM.ED ---
Social Work Patient requested SW help get patient a ride. SW contacted [facility] van service, however they had already left for the day. Patient was directed to the stop for [facility], patient happy with same. Patient did call back after leaving the hospital to make sure she was in the right location. Reassurance provided. No further needs at this time. Kirsty Gibbs, MANAGED CARE SPECIALIST, LINE ASSEMBLER
== END 2024-09-25 17:13 | disposition home or self-care (01) ==
PROVIDERS: Emergency Provider Emergency Medicine; PCP Internal Medicine; Visit Provider Emergency Medicine
DX: K58.9 Irritable bowel syndrome, unspecified (principal); R11.2 Nausea with vomiting, unspecified; Z79.82 Long term (current) use of aspirin; Z79.899 Other long term (current) drug therapy
CPT/HCPCS: 74177; 80053; 81001; 83690; 84703; 85025; 96361; 96365; 96375; 99285; Q9967; A4216; J2405

== ENCOUNTER 2024-09-28 12:14 | Emergency (ER) | payer MEDICAID, SELFPAY ==
[2024-09-28 12:15] VITALS: BP 122/89; PULSE 96; RESP 18; TEMP 36.8; O2SAT 100; BMI 24.6
[2024-09-28] MEDS: 0.9% Normal Saline (1000mL) 1,000 ML 999 ML IV (13:12)
[2024-09-28 13:38] LABS: Hematocrit 37.5 % (37-47); Hemoglobin 12.3 g/dL (12.0-15.0); Immature Granulocytes Count 0.010 X10^3/uL (0.0-0.0); Mean Corp Hgb Conc 32.8 g/dL (32-36); Mean Corpuscular Volume 86.0 fL (81-99); Mean Platelet Vol. 9.4 fl (6.2-12.0); NRBC Flagged by Analyzer 0 % (0-5); Platelet Count 218 K/mm3 (150-450); RBC Distribution Width CV 13.7 % (11.6-14.6); RBC Distribution Width SD 42.5 fl (35.1-43.9); Red Blood Count 4.36 M/mm3 (4.2-5.4); White Blood Count 7.6 K/mm3 (4.4-11.0)
[2024-09-28 13:55] LABS: Internal QC Validated? YES +Cl - CLEAR BKGD; Pregnancy, Serum, hCG Quali. NEGATIVE Negative; Record Kit Lot#, Serum Preg. 962302
[2024-09-28 14:11] LABS: AST(SGOT) 18 U/L (<=31); Alanine Aminotransfer ALT/SGPT 23 U/L (<=34); Albumin, Serum 4.2 g/dL (3.5-5.0); Alkaline Phosphatase 46 U/L (35-104); Anion Gap 11 (5-15); BUN 19 mg/dL (4-19); BUN/Creat Ratio 28.4 RATIO (10-20); Bilirubin, Direct 0.08 mg/dL (0.00-0.30); Calcium,Total 9.3 mg/dL (7.6-11.0); Carbon Dioxide 22.5 mmol/L (21.0-32.0); Chloride 108 mmol/L (98-108); Estimated Creatinine Clearance 93.17 ml/min (50-250); Globulin 2.9 g/dL (2.2-4.2); Glucose 108 mg/dL (70-99); Potassium 3.5 mmol/L (3.3-5.1)
[2024-09-28 14:14] VITALS: PULSE 83; RESP 15; O2SAT 97
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
[2024-09-28 14:53] VITALS: BP 122/89; PULSE 83; RESP 15; TEMP 36.8; O2SAT 97
== END 2024-09-28 14:53 | disposition home or self-care (01) ==
PROVIDERS: Emergency Provider Emergency Medicine; Visit Provider Emergency Medicine
DX: K58.9 Irritable bowel syndrome, unspecified (principal); Z59.00 Homelessness unspecified; F84.5 Asperger's syndrome; F41.9 Anxiety disorder, unspecified; Z79.82 Long term (current) use of aspirin; Z79.899 Other long term (current) drug therapy
CPT/HCPCS: 80053; 80076; 84703; 85025; 96361; 96374; 99283

== ENCOUNTER 2024-10-01 07:37 | Day surgery (SDC) | payer MEDICAID, SELFPAY ==
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
[2024-10-01] VITALS (9 sets, daily range): BP systolic 87–116; BP diastolic 58–94; PULSE 66–77; RESP 16; TEMP 36.1–37; O2SAT 97–100; BMI 24.5
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
[2024-10-01] MEDS: Lactated Ringers 1,000 ML 15 ML IV (10:42)
[2024-10-01 10:43] LABS: Internal QC Validated? YES +Cl - CLEAR BKGD; Pregnancy, Urine Negative Negative; Record Kit Lot#,Urine Preg 962302
--- NOTE | 2024-10-01 11:30 | EGD_PTH ---
PATIENT: LULI JOHNSON LOC: EN U#:[id number] AGE/SX: 33/F ROOM: RE10/01/[address]: Dr. Cristo Machado DO : 1990 BED: DIS: 10/01/2024 SPEC #: [id number] RECD: 10/01/24 13:46 STATUS: MAR REJosefa #: [id number] AKASH: 10/01/24 11:[address]: Cristo Machado DEPT: SURGICAL PATHOLOGY RECD BY: Alvaro Cintron ENTERED: 10/01/24 14:42 SP TYPE: EGD BIOPSY KARMEN DR: No Primary Care Phys Tissues: A - Duodenum, NOS Procedures: Surgery Specimen Level IV HEADER OPERATION: Colonoscopy, EGD, biopsy PRE-OP DIAGNOSIS: Irritable bowel syndrome, difficulty swallowing, GERD TISSUE SUBMITTED: A- Duodenum biopsy MICROSCOPIC DIAGNOSIS A. Duodenum, biopsy: - Normal villous architecture, negative for increased intraepithelial lymphocytes. MICROSCOPIC DESCRIPTION Slides are reviewed. GROSS DESCRIPTION A. Received in fixative is one container labeled with the patient's name and designated Duodenum biopsy. The specimen consists of one irregular fragment of light soler soft tissue that measures 0.6 cm. The specimen is totally submitted in one cassette. ID 10/01/2024 CPT:[id number]
--- NOTE | 2024-10-01 12:20 | PCM.POST.ANE ---
Anesthesia: Postop Eval I Current Vital Signs Temperature: 98.5 F Pulse Rate: 68 Blood Pressure: 87/58 Respiratory Rate: 16 Pulse Ox: 99 Oxygen Delivery Method: Room Air Assessment Airway patent: Yes Spontaneous unlabored respirations: Yes Mental status: Asleep nausea: No Vomiting: No Anesthesia Complication: No Fluid Hydration Crystalloid volume administer (ml): 600 Total IV fluid infused: 600 Progress Note Anesthesia document: Postop Eval 1 completed: Yes
--- NOTE | 2024-10-01 12:28 | OP.EGD_ITS ---
Patient Name: Anabel Nick Procedure Date: 10/01/2024 11:44 AM Date of : 1990 Age: 33 Procedure: Upper GI endoscopy Indications: Epigastric abdominal pain Providers: Cristo Machado DO Medicines: Monitored Anesthesia Care Patient Profile: This is a 33 year old female. Refer to note in patient chart for documentation of history and physical. Patient has symptoms of chronic epigastric abdominal pain, acute dyspepsia and chronic nausea. Complications: No immediate complications. Procedure: Pre-Anesthesia Assessment: - Prior to the procedure, a History and Physical was performed, and patient medications and allergies were reviewed. The patient is competent. The risks and benefits of the procedure and the sedation options and risks were discussed with the patient. All questions were answered and informed consent was obtained. Patient identification and proposed procedure were verified by the physician in the pre-procedure area. Mental Status Examination: alert and oriented. Airway Examination: normal oropharyngeal airway and neck mobility. Respiratory Examination: clear to auscultation. CV Examination: normal. ASA Grade Assessment: II - A patient with mild systemic disease. After reviewing the risks and benefits, the patient was deemed in satisfactory condition to undergo the procedure. The anesthesia plan was to use monitored anesthesia care (MAC). Immediately prior to administration of medications, the patient was re-assessed for adequacy to receive sedatives. The heart rate, respiratory rate, oxygen saturations, blood pressure, adequacy of pulmonary ventilation, and response to care were monitored throughout the procedure. The physical status of the patient was re-assessed after the procedure. After obtaining informed consent, the endoscope was passed under direct vision. Throughout the procedure, the patient's blood pressure, pulse, and oxygen saturations were monitored continuously. The Colonoscope was introduced through the mouth, and advanced to the third part of the duodenum. Small bowel enteroscopy was deemed necessary. The upper GI endoscopy was accomplished without difficulty. The patient tolerated the procedure well. Scope In: 11:56:54 AM Scope Out: 11:59:25 AM Total Procedure Duration Time 0 hours 2 minutes 31 seconds Findings: The examined esophagus was normal. Suspect gastroparesis due to absence of peristalsis, patient symptoms and retained gastric contents. Patchy mildly erythematous mucosa without active bleeding and with no stigmata of bleeding was found in the duodenal bulb. Biopsies were taken with a cold forceps for histology. Verification of patient identification for the specimen was done. Estimated blood loss was minimal. Impression: - Normal esophagus. - Gastroparesis. - Erythematous duodenopathy. Biopsied. Recommendation: - Discharge patient to home. - Resume previous diet. - Continue present medications. - Await pathology results. Procedure Code(s): --- Professional --- 14297, Small intestinal endoscopy, enteroscopy beyond second portion of duodenum, not including ileum; with biopsy, single or multiple CPT copyright 2021 [employer]. All rights reserved. The codes documented in this report are preliminary and upon manager search engine review may be revised to meet current compliance requirements. Cristo Machado DO 10/01/2024 12:28:15 PM This report has been signed electronically. Number of Addenda: 0 Note Initiated On: 10/01/2024 11:44 AM
--- NOTE | 2024-10-01 12:28 | OP.PROVAT_ITS ---
10/01/2024 Pito Montaño [address] [place] [address] Re : Upper GI endoscopy procedure for Anabel Sandoval Dear Dr. Montaño This procedure was performed on Tuesday, October 01, 2024. My impressions and recommendations are as follows: Impressions : - Normal esophagus. - Gastroparesis. - Erythematous duodenopathy. Biopsied. Recommendations : - Discharge patient to home. - Resume previous diet. - Continue present medications. - Await pathology results. My findings are described in the full procedure note, which is enclosed. If I can be of further assistance, please feel free to contact me at . Sincerely, Cristo Machado, 10/01/2024 12:28:15 PM This report has been signed electronically.
--- NOTE | 2024-10-01 12:32 | OP.COLON_ITS ---
Patient Name: Anabel Nick Procedure Date: 10/01/2024 11:59 AM Date of : 1990 Age: 33 Procedure: Colonoscopy Indications: Generalized abdominal pain, Epigastric abdominal pain Providers: Cristo Machado DO Medicines: Monitored Anesthesia Care Patient Profile: This is a 33 year old female. Refer to note in patient chart for documentation of history and physical. Patient has symptoms of chronic epigastric abdominal pain, acute dyspepsia and chronic nausea. Last Colonoscopy: several years ago. Complications: No immediate complications. Procedure: Pre-Anesthesia Assessment: - Prior to the procedure, a History and Physical was performed, and patient medications and allergies were reviewed. The patient is competent. The risks and benefits of the procedure and the sedation options and risks were discussed with the patient. All questions were answered and informed consent was obtained. Patient identification and proposed procedure were verified by the physician in the pre-procedure area. Mental Status Examination: alert and oriented. Airway Examination: normal oropharyngeal airway and neck mobility. Respiratory Examination: clear to auscultation. CV Examination: normal. ASA Grade Assessment: II - A patient with mild systemic disease. After reviewing the risks and benefits, the patient was deemed in satisfactory condition to undergo the procedure. The anesthesia plan was to use monitored anesthesia care (MAC). Immediately prior to administration of medications, the patient was re-assessed for adequacy to receive sedatives. The heart rate, respiratory rate, oxygen saturations, blood pressure, adequacy of pulmonary ventilation, and response to care were monitored throughout the procedure. The physical status of the patient was re-assessed after the procedure. After I obtained informed consent, the scope was passed under direct vision. Throughout the procedure, the patient's blood pressure, pulse, and oxygen saturations were monitored continuously. The Colonoscope was introduced through the anus and advanced to the cecum, identified by appendiceal orifice and ileocecal valve. The colonoscopy was performed without difficulty. The patient tolerated the procedure well. The quality of the bowel preparation was poor. The terminal ileum, ileocecal valve, appendiceal orifice, and rectum were photographed. Scope In: 12:01:21 PM Scope Withdrawal Time 0 hours 3 minutes 47 seconds Scope Out: 12:10:32 PM Total Procedure Duration Time 0 hours 9 minutes 11 seconds Findings: The perianal and digital rectal examinations were normal. A large amount of stool was found in the rectum, in the recto-sigmoid colon, in the sigmoid colon, in the descending colon, at the splenic flexure, in the transverse colon, in the ascending colon and in the cecum, interfering with visualization. Impression: - Preparation of the colon was poor. - Stool in the rectum, in the recto-sigmoid colon, in the sigmoid colon, in the descending colon, at the splenic flexure, in the transverse colon, in the ascending colon and in the cecum. - No specimens collected. Recommendation: - Discharge patient to home. - Resume previous diet. - Repeat colonoscopy for surveillance. - Continue present medications. Procedure Code(s): --- Professional --- 90782, Colonoscopy, flexible; diagnostic, including collection of specimen(s) by brushing or washing, when performed (separate procedure) CPT copyright 2021 [employer]. All rights reserved. The codes documented in this report are preliminary and upon rounding machine operator review may be revised to meet current compliance requirements. Cristo Machado DO 10/01/2024 12:31:55 PM This report has been signed electronically. Number of Addenda: 0 Note Initiated On: 10/01/2024 11:59 AM
--- NOTE | 2024-10-01 12:32 | OP.PROVAT_ITS ---
10/01/2024 Pito Montaño [address] [place] [address] Re : Colonoscopy procedure for Anabel Nick Dear Dr. Montaño This procedure was performed on Tuesday, October 01, 2024. My impressions and recommendations are as follows: Impressions : - Preparation of the colon was poor. - Stool in the rectum, in the recto-sigmoid colon, in the sigmoid colon, in the descending colon, at the splenic flexure, in the transverse colon, in the ascending colon and in the cecum. - No specimens collected. Recommendations : - Discharge patient to home. - Resume previous diet. - Repeat colonoscopy for surveillance. - Continue present medications. My findings are described in the full procedure note, which is enclosed. If I can be of further assistance, please feel free to contact me at . Sincerely, Cristo Machado, 10/01/2024 12:31:55 PM This report has been signed electronically.
--- NOTE | 2024-10-01 12:45 | PCM.POSTANE2 ---
Anesthesia Postop Eval I Sum Postop Eval Completion status Anesthesia document: Postop Eval 1 completed: Yes Anesthesia Postop Eval I Summary Anesthesia Postop Eval I Summary: Anesthesia Postop Eval I: Assessment Summary Airway patent Yes 10/01/24 12:21 [email or web address] Spontaneous unlabored Yes 10/01/24 12:21 [email or web address] respirations Mental status Asleep 10/01/24 12:21 [email or web address] nausea No 10/01/24 12:21 [email or web address] Vomiting No 10/01/24 12:21 [email or web address] Anesthesia Postop Eval I: Fluid Summary Crystalloid volume administer 600 10/01/24 12:21 [email or web address] (ml) Colloids volume administered ( ml) Blood Product volume administered (ml) Total IV fluid infused 600 10/01/24 12:21 [email or web address] Anesthesia Postop Eval I: Summary Notes Anesthesia Complication No 10/01/24 12:21 [email or web address] Anesthesia Complication Comment: Post-operative progress note Anesthesia: Postop Eval II Evaluation Mental status: Awake and Calm Pain Level: 0 nausea: No Vomiting: No
== END 2024-10-01 13:17 | disposition home or self-care (01) ==
LOC: EN 09:59 → AC 10:00
PROVIDERS: Anesthesiology; Visit Provider Internal Medicine Gastroenterology
PROC: 0DJD8ZZ Inspection of Lower Intestinal Tract, Via Natural or Artificial Opening Endoscopic (ICD-10-PCS; CPT 45378; principal; 2024-10-01 11:25)
DX: K31.84 Gastroparesis (principal); K31.89 Other diseases of stomach and duodenum; K21.9 Gastro-esophageal reflux disease without esophagitis; K58.1 Irritable bowel syndrome with constipation; G89.29 Other chronic pain; R13.10 Dysphagia, unspecified; Z90.49 Acquired absence of other specified parts of digestive tract; Z79.899 Other long term (current) drug therapy
CPT/HCPCS: 44361; 45378; 81025; 88305; J2405

== ENCOUNTER 2024-10-06 12:12 | Emergency (ER) | payer MEDICAID, SELFPAY ==
[2024-10-06 12:14] VITALS: BP 138/102; PULSE 108; RESP 16; TEMP 37.4; O2SAT 99; BMI 26.1
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
--- NOTE | 2024-10-06 13:10 | CM.ED ---
Social Work Date of referral: 10/06/24 Reason for Referral: No Primary Care Physician (PCP) on file Referred by: Social Work Identification Patient provided consent to social work visit. Patient stated she has her first appointment at the [facility] on 10/15/24 at which point she will meet her new PCP. Patient stated she wasn't given a name as of yet. Patient denied the need for any additional resources at this time. Sravani Skaggs, [employer], [employer]
[2024-10-06 13:35] LABS: Anion Gap 11 (5-15); BUN 18 mg/dL (4-19); BUN/Creat Ratio 28.2 RATIO (10-20); Calcium,Total 9.1 mg/dL (7.6-11.0); Carbon Dioxide 22.0 mmol/L (21.0-32.0); Chloride 107 mmol/L (98-108); Estimated Creatinine Clearance 103.38 ml/min (50-250); Glucose 99 mg/dL (70-99); Potassium 4.1 mmol/L (3.3-5.1)
== END 2024-10-06 13:42 | disposition home or self-care (01) ==
PROVIDERS: Emergency Provider Emergency Medicine; Visit Provider Emergency Medicine
DX: K31.84 Gastroparesis (principal); F84.5 Asperger's syndrome; K75.81 Nonalcoholic steatohepatitis (NASH); R79.89 Other specified abnormal findings of blood chemistry; Z59.00 Homelessness unspecified
CPT/HCPCS: 80048; 96374; 99285; A4216